=== PATIENT | male | born 1955 | race Caucasian/White ===

== ENCOUNTER 2021-02-14 23:07 | Observation (INO) | payer OTHER, SELFPAY ==
--- NOTE | ~2021-02-14 | NM_ITS ---
EXAMINATION: NM pulmonary perfusion DATE: 02/15/2021 14:48 INDICATION: Right chest pain. TECHNIQUE: 5.5 mCi Tc-99m MAA was administered intravenously for perfusion images. Scintigraphic mohsen ges of the chest were obtained. COMPARISON: Chest single view 02/14/2021, chest CT 10/25/2017 FINDINGS: Perfusion images show attenuation artifact from obesity. There are no mismatched defects. IMPRESSION: 1. Pulmonary embolism absent (low probability). Reviewed, dictated and finalized at location A. AMMONIA OPERATOR
--- NOTE | ~2021-02-14 | US_ITS ---
EXAMINATION: US venous doppler [facility] DATE: 02/15/2021 14:52 INDICATION: Lower limb swelling. TECHNIQUE: Grayscale ultrasound images without and with compression and Doppler ultrasound images of the bilateral lower extremity veins were obtained. COMPARISON: Ultrasound 10/25/2017 FINDINGS: The visualized portions of right common femoral vein, profunda (deep) femoral vein, femoral vein, pop liteal vein, peroneal veins, posterior tibial veins, and greater saphenous vein outflow are patent. The visualized portions of left common femoral vein, profunda femoral vein, femoral vein, popliteal v ein, peroneal veins, posterior tibial veins, and greater saphenous vein outflow are patent. IMPRESSION: 1. No deep venous thrombosis. Reviewed, dictated and finalized at location A. EE TASTER
--- NOTE | ~2021-02-14 | XR_ITS ---
EXAMINATION: XR chest 1V portable DATE: 02/17/2021 08:38 INDICATION: Shortness of breath. TECHNIQUE: A single frontal view of the chest was obtained. COMPARISON: Chest single view 02/14/2021, chest CT 10/25/2017 FINDINGS: There are airspace opacities in the mid and lower lung zones. No pleural effusion or pneumo thorax. Cardiomegaly is noted. There are prominent paracardial fat pads. IMPRESSION: 1. Airspace opacities in the mid and lower lung zones, likely stable considering differences in techn ique, consistent with pulmonary edema versus pneumonia. 2. Cardiomegaly. Reviewed, dictated and finalized at location A. TAKER IMPRESSION: 1. Airspace opacities in the mid and lower lung zones, likely stable considerin g differences in technique, consistent with pulmonary edema versus pneumonia. 2. Cardiomegaly.
--- NOTE | ~2021-02-14 | XR_ITS ---
EXAMINATION: XR shoulder RT min 2V DATE: 02/18/2021 13:05 INDICATION: Right shoulder pain. TECHNIQUE: 4 views of right shoulder were obtained. COMPARISON: Right shoulder radiographs 05/27/2014 FINDINGS: Bone alignment is normal. No fracture. There is mild osteoarthritis of glenohumeral joint a nd moderate osteoarthritis of acromioclavicular joint. IMPRESSION: 1. Polyarticular osteoarthritis. Reviewed, dictated and finalized at location A. NE EQUIPMENT DESIGN ENGINEER
--- NOTE | ~2021-02-14 | XR_ITS ---
XR chest 1V portable 02/14/2021 23:52 Indication: Chest pain. Hypertension. Procedure: AP portable chest Comparison: 10/25/2017 Findings: Cardiomegaly with pulmonary edema. Small left pleural effusion. No pneumothorax. No acute o sseous abnormality. Impression: 1: Cardiomegaly with pulmonary edema. Reviewed, dictated and finalized at location A. NDS MANAGER Impression: 1: Cardiomegaly with pulmonary edema.
[2021-02-14 23:07] VITALS: BP 124/66; PULSE 63; PULSE 65; RESP 21; TEMP 35.9; O2SAT 100; O2SAT 98
--- NOTE | 2021-02-14 23:22 | ECG_ITS ---
Measurements Intervals [place] Rate: 57 P: MI: 0 QRS: 89 QRSD: 113 T: 35 QT: 429 QTc: 419 Interpretive Statements ATRIAL FIBRILLATION WITH SLOW VENTRICULAR RESPONSE INTRAVENTRICULAR CONDUCTION DELAY LOW QRS VOLTAGE IN PRECORDIAL LEADS BASELINE ARTIFACT- I, II, AVR ABNORMAL ECG Electronically Signed On 02-15-2021 6:07:02 PIPELAYING FITTER by Silver Torres D.O.
[2021-02-14 23:25] VITALS: O2SAT 100
[2021-02-14 23:31] VITALS: BP 104/81; PULSE 61; RESP 17; O2SAT 94
[2021-02-14 23:44] LABS: Basophils Absolute Auto 0.1 K/mm3 (0.0-0.1); Basophils Percent Auto 0.9 % (0.2-1.2); Eosinophils Absolute Auto 0.4 K/mm3 (0-0.3); Eosinophils Percent Auto 3.4 % (0-4.4); Hematocrit 40.5 % (42.0-52.0); Hemoglobin 12.4 g/dL (14.0-18.0); Immature Granulocyte Absolute 0.05 K/mm3 (0.00-0.031); Immature Granulocyte Percent A 0.4 % (0-0.5); Lymphocytes Absolute Auto 1.31 K/mm3 (0.9-3.2); Lymphocytes Percent Auto 10.3 % (18.3-44.2); Mean Corpuscular HGB Conc 30.6 g/dl (32-36); Mean Corpuscular Hemoglobin 28.2 pg (26-34); Mean Platelet Volume 9.8 fl (7.4-10.4); Monocytes Absolute Auto 0.9 K/mm3 (0.1-0.6); Monocytes Percent Auto 6.8 % (2.6-8.5); Neutrophils Percent Auto 78.2 % (45.5-73.1); Platelet Count Result 425 k/mm3 (150-375); White Blood Count 12.8 K/mm3 (4.5-10.0)
[2021-02-14 23:58] LABS: Alanine Aminotransferase 14 U/L (4-50); Albumin Level 3.6 g/dL (3.5-5.1); Alkaline Phosphatase 83 U/L (38-126); Anion Gap 9 mmol/L (8-16); Aspartate Amino Transferase 24 U/L (17-59); Bilirubin,Total 0.5 mg/dL (0.2-1.3); Blood Urea Nitrogen 34 mg/dL (9-20); Calcium 10.8 mg/dL (8.4-10.2); Carbon Dioxide 29 mmol/L (22-30); Chloride 96 mmol/L (98-107); Estimated Glomerular Filt Rate 47; Glucose 94 mg/dL (65-110); Lipase 39 U/L (23-300); Potassium 5.2 mmol/L (3.4-5.0); Sodium 134 mmol/L (137-145)
[2021-02-15] VITALS (16 sets, daily range): BP systolic 102–128; BP diastolic 45–69; PULSE 51–72; RESP 14–20; TEMP 36.1–36.4; O2SAT 95–100; BMI 44.6
--- NOTE | 2021-02-15 | ECHO_ITS ---
Patient Info Name: Taye Marrero Age: 65 years : 1955 Gender: Male Ht: 71 in Wt: 320 lbs BSA: 2.77 m2 HR: 53 bpm BP: 128 / 45 mmHg Heart Rhythm: Sinus Rhythm Technical Quality: Fair Exam Date: 02/15/2021 9:31 AM Exam Location: [facility] Patient Status: Outpatient Admit Date: 02/15/2021 Staff Ordering Physician: Paul Rosado MD Senior Online Marketing Manager: JULIO Attending Provider: Paul Rosado MD Exam Type: CA echo doppler color flow Study Info Indications - CHF Complete two-dimensional, color flow and Doppler transthoracic echocardiogram is performed. Summary 1. Complete two-dimensional, color flow and Doppler transthoracic echocardiogram is performed. 2. Left ventricular chamber dimension is normal. 3. Left ventricular systolic function is normal, estimated at 60-65%. 4. The left ventricular diastolic function is abnormal. 5. E/e' 10 is mildly elevated. 6. Left atrial chamber dimension is mildly enlarged. 7. Right atrial chamber dimension is mildly enlarged. 8. There is mild aortic valve sclerosis. 9. The mitral valve has mildly calcified annulus. 10. No pulmonary hypertension, estimated pulmonary arterial systolic pressure is 38 mmHg. 11. Dilated inferior vena cava with >50% collapse upon inspiration consistent with elevated right atrial pressure, 10 mmHg. Left Ventricle E/e' 10 is mildly elevated. Left ventricular chamber dimension is normal. Left ventricular systolic function is normal, estimated at 60-65%. The left ventricular diastolic function is abnormal. Right Ventricle Right ventricular chamber dimension is normal. Right ventricular systolic function is normal. Left Atria Left atrial chamber dimension is mildly enlarged. Right Atria Right atrial chamber dimension is mildly enlarged. Aortic Valve The aortic valve is trileaflet. There is mild aortic valve sclerosis. There is no aortic valve stenosis. There is no aortic valve regurgitation. Pulmonic Valve There is no pulmonic regurgitation. Mitral Valve The mitral valve has mildly calcified annulus. There is no mitral valve stenosis. There is no mitral valve regurgitation. Tricuspid Valve There is no tricuspid valve regurgitation. No pulmonary hypertension, estimated pulmonary arterial systolic pressure is 38 mmHg. Pericardium/Pleural There is no pericardial effusion. Inferior Vena Cava Dilated inferior vena cava with >50% collapse upon inspiration consistent with elevated right atrial pressure, 10 mmHg. Aorta The aortic root size at the sinus of Valsalva is normal. Left Ventricular Outflow Tract Name Value Normal LVOT 2D LVOT Diameter 2.3 cm LVOT Doppler LVOT Peak Gradient 5 mmHg LVOT Mean Gradient 3 mmHg LVOT VTI 26 cm LVOT VTI/AV VTI Ratio 0.8 LVOT Stroke Volume 33 ml LVOT CO 2.1 l/min LVOT CI 0.8 l/min/m2 Pulmonic Valve
[2021-02-15 00:04] LABS: INR 1.6; Prothrombin Time 18.6 Seconds (11.1-14.7)
[2021-02-15] MEDS: ALBUTEROL SULFATE NEB 2.5 MG/0.5 ML INH 5 MG INHALATION ×2 (00:04→17:56)
[2021-02-15] MEDS: IPRATROPIUM BR 0.02% INH SOLN 0.5 MG/2.5 ML VIAL INHALATION ×2 (00:04→17:56)
[2021-02-15 00:05] LABS: Partial Thromboplastin Time 46.3 SECONDS (22.3-36.8)
[2021-02-15 00:10] LABS: Troponin I < 0.012 ng/mL (0.000-0.034)
[2021-02-15 00:46] LABS: NT Pro B Type Natriuretic Pept 388 pg/mL (5-100)
--- NOTE | 2021-02-15 03:04 | ED.GENADULT ---
HPI - General Adult General Chief complaint: Chest Pain Stated complaint: CP RADIATING RT ARM Time Seen by Provider: 02/14/21 23:39 History of Present Illness HPI narrative: Patient is 65-year-old gentleman who presents emerged from with chief complaint of chest pain and shortness of breath. The patient reports that he is currently a resident of a local nursing facility had some tightness in his chest and also started getting short of breath today. The patient does report that he uses an inhaler and states he feels better after receiving nebulizer treatment. The patient states that he was recently in the hospital at [place] and had had issues with lower extremity laceration on the right leg that got infected he also has history of chronic venous stasis of his lower extremities. Related Data Allergies Allergy/AdvReac Type Severity Reaction Status Date / Time No Known Allergies Allergy Unverified 02/14/21 23:18 Review of Systems Review of Systems: A 10 system review of systems was completed on the patient and is negative except for what is stated in the HPI. Nursing and ancillary documentation was reviewed. Exam Narrative: GENERAL: Well-appearing, well-nourished, and in no acute distress. HEAD: Normocephalic, atraumatic. EYES: PERRLA and EOMI. ENT: Nares clear, no rhinorrhea or epistaxis. Mucous membranes moist. NECK: Supple. CHEST: Scattered wheezes to auscultation. No respiratory distress. HEART: Irregular rate and rhythm. No murmur heard. Normal peripheral pulses. ABDOMEN: Soft, nontender, nondistended, normal active bowel sounds. EXTREMITIES: Normal range of motion. +1 edema. SKIN: Warm, dry, chronic venous stasis of the bilateral lower extremities. There is a healing laceration of the right lower extremity.. NEURO: No focal deficits. Alert and oriented x3. PSYCH: Normal mood and affect. Course Course Emergency Course: EKG is atrial fibrillation with slow ventricular response with a rate of [address] elevation or ST depression Vital Signs Vital signs: Vital Signs Temperature 35.9 C L 02/14/21 23:07 Pulse Rate 65 02/14/21 23:07 Respiratory Rate 21 H 02/14/21 23:07 Blood Pressure 124/66 02/14/21 23:07 Pulse Oximetry 100 02/14/21 23:07 Temperature 35.9 C L 02/14/21 23:07 Pulse Rate 55 L 02/15/21 01:31 Respiratory Rate 14 02/15/21 01:31 Blood Pressure 116/61 02/15/21 01:31 Pulse Oximetry 100 02/15/21 01:31 Medical Decision Making Vital Signs Vital Signs: Vital Signs Temperature 35.9 C L 02/14/21 23:07 Pulse Rate 65 02/14/21 23:07 Respiratory Rate 21 H 02/14/21 23:07 Blood Pressure 124/66 02/14/21 23:07 Pulse Oximetry 100 02/14/21 23:07 Temperature 35.9 C L 02/14/21 23:07 Pulse Rate 55 L 02/15/21 01:31 Respiratory Rate 14 02/15/21 01:31 Blood Pressure 116/61 02/15/21 01:31 Pulse Oximetry 100 02/15/21 01:31 Lab Data Result diagrams: 02/14/21 23:37 02/14/21 23:37 Labs: Lab Results 02/14/21 02/14/21 02/14/21 Range/Units 23:37 23:37 23:37 WBC 12.8 H (4.5-10.0) K/mm3 RBC 4.40 L (4.6-6.20) M/mm3 Hgb 12.4 L (14.0-18.0) g/dL Hct 40.5 L (42.0-52.0) % MCV 92.0 (80-100) fl MCH 28.2 (26-34) pg MCHC 30.6 L (32-36) g/dl RDW 14.0 (11.5-14.5) % Plt Count 425 H (150-375) k/mm3 MPV 9.8 (7.4-10.4) fl Immature Gran % (Auto) 0.4 (0-0.5) % Neut % (Auto) 78.2 H (45.5-73.1) % Lymph % (Auto) 10.3 L (18.3-44.2) % [place] % (Auto) 6.8 (2.6-8.5) % Eos % (Auto) 3.4 (0-4.4) % Baso % (Auto) 0.9 (0.2-1.2) % Lymph # (Auto) 1.31 (0.9-3.2) K/mm3 [place] # (Auto) 0.9 H (0.1-0.6) K/mm3 Eos # (Auto) 0.4 H (0-0.3) K/mm3 Baso # (Auto) 0.1 (0.0-0.1) K/mm3 Abs Immat Gran (auto) 0.05 H (0.00-0.031) K/mm3 Absolute Neuts (auto) 10.0 H (1.3-6.7) K/mm3 Absolute Nucleated RBC 0.0 (0.0-0.012) K/mm3 Nucleated RBC % 0.0 (0.0-0.2) % P
[2021-02-15] MEDS: FUROSEMIDE INJ 40 MG/4 ML VIAL IV PUSH ×3 (03:22→17:33)
--- NOTE | 2021-02-15 03:27 | PC.NURSE ---
3L O2 saturation 100%, titrated to 2L O2.
--- NOTE | 2021-02-15 03:31 | PC.NURSE ---
Updated Rosmery at [facility] by phone.
--- NOTE | 2021-02-15 04:38 | ADMGEN ---
This patient, Taye Marrero, was admitted to Medical Room 240-01. Patient/family oriented to hospital policies and general routines including ID bracelet, bed and alarms, visiting hours, pain management, procedures, bathroom and other care routines, personal items, smoking policy, room service/diet, and visiting hours. Information on how to activate the Rapid Response Team has been discussed. Patient/Family are encouraged to report perceived risks to care and to ask questions if they do not understand what they are told or what they should do.
--- NOTE | 2021-02-15 05:14 | PM.IMHP ---
H&P: HPI History of Present Illness Date/Time: 02/15/21 05:14 Chief Complaint: Chest pain shortness of breath Narrative: This is a 65-year-old male who presents to the ED from a local nursing facility due to shortness of breath and chest tightness that he had while there. He has been in the nursing facility since about a week now rehabilitating from his recent admission at [facility]. He went to [facility] after a fall and sustained a laceration on his right leg which was sutured. He still has wound on his right leg which is healing. He reports that he used his inhaler and felt a little better. He reports chronic wound in his bilateral lower extremities due to chronic venous stasis. Prior to going to [facility] he lives at home and uses walker to get around. He denies any abdominal pain nausea vomiting or diaphoresis. Review of Systems Review of Systems: - CONSTITUTIONAL: Denies weight loss, fever and chills. - HEENT: Denies changes in vision and hearing - RESPIRATORY: Reports SOB and denies cough. - CV: Denies palpitations and reports CP. - GI: Denies abdominal pain, nausea, vomiting and diarrhea. - : Denies dysuria and urinary frequency. - MSK: Denies myalgia and joint pain. - SKIN: Reports lower extremity rash and pruritus. - NEUROLOGICAL: Denies headache and syncope. - PSYCHIATRIC: Denies recent changes in mood. Denies anxiety and depression. All systems reviewed & are unremarkable except as noted in HPI and below Constitutional: Constitutional: Reports fatigue and Reports weakness Neurologic: Reports weakness Endocrine: Endocrine: Reports fatigue PMFSH Social History Social History Alcohol intake: never Substance use: never Spiritual care concerns: No Meds Home Medications and Allergies Home Medications Medication Instructions Recorded Confirmed Type hydrocodone 5 mg-acetaminophen 325 1 tablet PO Q8H PRN #90 tablet 02/09/21 Rx mg tablet Clindamycin 300 mg BYMOUTH QID 02/15/21 02/15/21 History apixaban [Eliquis] 5 mg PO BID 02/15/21 02/15/21 History carvedilol 12.5 mg PO BID 02/15/21 02/15/21 History cholecalciferol (vitamin D3) 50 mcg PO DAILY 02/15/21 02/15/21 History citalopram 20 mg PO DAILY 02/15/21 02/15/21 History diltiazem HCl 360 mg PO DAILY 02/15/21 02/15/21 History duloxetine 40 mg PO DAILY 02/15/21 02/15/21 History furosemide 40 mg PO DAILY 02/15/21 02/15/21 History gabapentin 300 mg PO 6XD 02/15/21 02/15/21 History glimepiride 4 mg PO DAILY 02/15/21 02/15/21 History hydralazine 25 mg PO TID 02/15/21 02/15/21 History hydrocodone-acetaminophen 5 tablet PO Q8H 02/15/21 02/15/21 History isosorbide mononitrate 30 mg PO DAILY 02/15/21 02/15/21 History levothyroxine 100 mcg PO DAILY 02/15/21 02/15/21 History lisinopril 20 mg PO DAILY 02/15/21 02/15/21 History magnesium oxide-Mg AA chelate 400 cap PO BID 02/15/21 02/15/21 History [Magnesium (oxide/AA chelate)] metformin 1,000 mg PO BID 02/15/21 02/15/21 History stnjoknyetoj-pyy-paqa-FA-vit K 1 tablet PO DAILY 02/15/21 02/15/21 History [Adults Multivitamin] pantoprazole [Protonix] 40 mg PO DAILY 02/15/21 02/15/21 History potassium chloride 20 meq PO DAILY 02/15/21 02/15/21 History pravastatin 40 mg PO DAILY 02/15/21 02/15/21 History trazodone 150 mg PO DAILY 02/15/21 02/15/21 History warfarin [Coumadin] 4 mg PO DAILY 02/15/21 02/15/21 History Allergies Allergy/AdvReac Type Severity Reaction Status Date / Time No Known Allergies Allergy Unverified 02/14/21 23:18 Vital Signs Vital Signs - 24 hr 02/14/21 23:07 02/14/21 23:25 02/14/21 23:31 Temperature 96.7 F L Pulse Rate 63 61 Respiratory Rate 21 H 17 Blood Pressure 124/66 104/81 Pulse Oximetry 98 100 94 02/15/21 00:07 02/15/21 00:17 02/15/21 00:31 Temperature Pulse Rate 62 65 62 Respiratory Rate 16 16 15 Blood Pressure 110/65 Pulse Oximetry 97
[2021-02-15 06:51] LABS: Troponin I < 0.012 ng/mL (0.000-0.034)
[2021-02-15 07:18] LABS: Alanine Aminotransferase 13 U/L (4-50); Albumin Level 3.5 g/dL (3.5-5.1); Alkaline Phosphatase 84 U/L (38-126); Anion Gap 6 mmol/L (8-16); Aspartate Amino Transferase 20 U/L (17-59); Bilirubin,Total 0.4 mg/dL (0.2-1.3); Blood Urea Nitrogen 35 mg/dL (9-20); Calcium 10.8 mg/dL (8.4-10.2); Carbon Dioxide 33 mmol/L (22-30); Chloride 97 mmol/L (98-107); Estimated CRCL calculation 57 ml/min; Estimated Glomerular Filt Rate 41; Glucose 107 mg/dL (65-110); Potassium 5.3 mmol/L (3.4-5.0); Sodium 136 mmol/L (137-145)
[2021-02-15 07:23] LABS: Basophils Absolute Auto 0.1 K/mm3 (0.0-0.1); Basophils Percent Auto 0.8 % (0.2-1.2); Eosinophils Absolute Auto 0.5 K/mm3 (0-0.3); Eosinophils Percent Auto 4.2 % (0-4.4); Hematocrit 40.4 % (42.0-52.0); Hemoglobin 12.4 g/dL (14.0-18.0); Immature Granulocyte Absolute 0.03 K/mm3 (0.00-0.031); Immature Granulocyte Percent A 0.3 % (0-0.5); Lymphocytes Absolute Auto 1.07 K/mm3 (0.9-3.2); Mean Corpuscular HGB Conc 30.7 g/dl (32-36); Mean Corpuscular Hemoglobin 27.9 pg (26-34); Monocytes Absolute Auto 0.8 K/mm3 (0.1-0.6); Monocytes Percent Auto 7.7 % (2.6-8.5); Neutrophils Absolute Auto 8.2 K/mm3 (1.3-6.7); Platelet Count Result 417 k/mm3 (150-375); Red Blood Count 4.44 M/mm3 (4.6-6.20); Red Cell Distribution Width 13.8 % (11.5-14.5); White Blood Count 10.7 K/mm3 (4.5-10.0)
[2021-02-15 07:28] LABS: Magnesium 2.3 mg/dL (1.6-2.3)
[2021-02-15 07:30] LABS: D Dimer 1.55 ug/mL (<0.48)
[2021-02-15 09:24] LABS: Hemoglobin A1C 8.7 % (<5.7)
--- NOTE | 2021-02-15 10:02 | PM.IMPN ---
Progress Note: A&P Assessment and Plan (1) Atypical chest pain: Code(s): R07.89 - Other chest pain Status: Acute Assessment and Plan: Cardiology consult serial troponin patient also has elevated D-dimer pending Doppler of lower extremity pending V/Q scan patient on oral anticoagulation Eliquis twice a day (2) Acute dyspnea: Code(s): R06.00 - Dyspnea, unspecified Status: Acute Assessment and Plan: Most likely acute and of chronic diastolic CHF exacerbation continue IV diuresis (3) Atrial fibrillation with slow ventricular response: Code(s): I48.91 - Unspecified atrial fibrillation Status: Acute Assessment and Plan: Patient currently on Cardizem and Coreg and Eliquis Holding parameter for Coreg pending cardiology evaluation probably DC Coreg (4) CHF (congestive heart failure): Qualifiers: Heart failure chronicity: unspecified Heart failure type: unspecified Qualified Code(s): I50.9 - Heart failure, unspecified Code(s): I50.9 - Heart failure, unspecified Status: Acute Assessment and Plan: Acute and of chronic diastolic CHF exacerbation present on admission continue IV diuresis (5) Insulin dependent diabetes mellitus: Status: Acute Assessment and Plan: Lantus Sliding scale insulin (6) Hypertension: Code(s): I10 - Essential (primary) hypertension Status: Acute Assessment and Plan: Blood pressure is on the lower side DC lisinopril to allow for diuresis and as also patient has hyperkalemia (7) Hyperlipidemia: Code(s): E78.5 - Hyperlipidemia, unspecified Status: Acute Assessment and Plan: Continue home medication Diet and exercise (8) Morbid obesity: Code(s): E66.01 - Morbid (severe) obesity due to excess calories Status: Acute Assessment and Plan: Diet and exercise (9) Chronic anticoagulation: Code(s): Z79.01 - terminal block assembler (current) use of anticoagulants Status: Acute Assessment and Plan: Monitor (10) COPD (chronic obstructive pulmonary disease): Code(s): J44.9 - Chronic obstructive pulmonary disease, unspecified Status: Acute Assessment and Plan: Most likely associated with acute COPD exacerbation treated with inhaler treatment (11) Chronic kidney disease, stage 3: Code(s): N18.30 - Chronic kidney disease, stage 3 unspecified Status: Acute Assessment and Plan: Avoid nephrotoxic medication Additional Plan Cellulitis of lower extremity blood culture IV antibiotics Subjective Date/time seen: 02/15/21 10:02 Interval history: Patient seen and examined Patient presented to the hospital with shortness and chest pain patient was found to have CHF exacerbation also has lower extremity redness started on IV antibiotic for cellulitis D-dimer was elevated V/Q scan and Doppler ordered cardiology consulted for chest pain and shortness of breath Patient had hyperkalemia DC potassium replacement DC lisinopril re-evaluate Patient denies fever headache fever I am seeing the patient for CHF Exam Narrative: Alert Chest decreased air entry bilateral Abdomen nontender nondistended CVS S1 + S2 Lower extremity positive redness and edema Objective Data Vital Signs Vital Signs: Vital Signs - 24 hr 02/14/21 23:07 02/14/21 23:25 02/14/21 23:31 Temperature 96.7 F L Pulse Rate 63 61 Respiratory Rate 21 H 17 Blood Pressure 124/66 104/81 Pulse Oximetry 98 100 94 02/15/21 00:07 02/15/21 00:17 02/15/21 00:31 Temperature Pulse Rate 62 65 62 Respiratory Rate 16 16 15 Blood Pressure 110/65 Pulse Oximetry 97 02/15/21 01:31 02/15/21 03:22 02/15/21 05:00 Temperature 97.6 F Pulse Rate 55 L 51 L 53 L Respiratory Rate 14 16 20 Blood Pressure 116/61 104/69 128/45 L Pulse Oximetry 100 100 100 02/15/21 06:58 Temperature Pulse Rate Respiratory Rate Blood Pressure Pulse Oximetry 100 Int
[2021-02-15] MEDS: cefTRIAXone 2 GM in SODIUM CHLORIDE 0.9% IV 100 ML 200 ML IVPB (10:45)
[2021-02-15] MEDS: MAGNESIUM OXIDE 400 MG TABLET PO ×2 (10:46→17:33)
[2021-02-15] MEDS: hydrALAZINE HCL 25 MG TABLET PO (10:46)
[2021-02-15] MEDS: ISOSORBIDE MONONITRATE 30 MG TAB.ER.24H PO (10:46)
[2021-02-15] MEDS: MULTIVITAMINS /C LUTEIN (CENTRUM SILVER) TABLET *BKC 1 TAB PO (10:46)
[2021-02-15] MEDS: APIXABAN 5 MG TABLET PO ×2 (10:46→20:41)
[2021-02-15] MEDS: GLIMEPIRIDE 2 MG TABLET 4 MG PO (10:47)
[2021-02-15] MEDS: PRAVASTATIN SODIUM 20 MG TABLET 40 MG PO (10:47)
[2021-02-15] MEDS: GABAPENTIN 300 MG CAPSULE PO ×3 (10:47→20:42)
[2021-02-15] MEDS: DULoxetine HCL 20 MG CAPSULE.DR 40 MG PO (10:47)
[2021-02-15] MEDS: CHOLECALCIFEROL 1,000 UNITS TABLET 2000 UNITS PO (10:48)
[2021-02-15] MEDS: carvediloL 12.5 MG TABLET PO ×2 (10:48→17:33)
[2021-02-15] MEDS: CITALOPRAM HYDROBROMIDE 20 MG TABLET PO (10:48)
[2021-02-15] MEDS: ASPIRIN 81 MG ENTERIC TABLET PO (10:48)
[2021-02-15] MEDS: dilTIAZem HCL CD 180 MG CAP.ER.24H 360 MG PO (10:49)
[2021-02-15] MEDS: PANTOPRAZOLE 40 MG TABLET PO (10:49)
[2021-02-15] MEDS: LEVOTHYROXINE SODIUM 100 MCG TABLET PO (10:50)
[2021-02-15 11:41] LABS: Glucose Point of Care 105 mg/dl (65-105)
[2021-02-15] MEDS: HYDROcodone/acetaminophen (*CRX) 5-325 MG TABLET 1 TAB PO (13:39)
--- NOTE | 2021-02-15 14:47 | PM.CNCAR ---
Assessment and Plan Assessment and plan (1) CHF (congestive heart failure): Qualifiers: Heart failure chronicity: unspecified Heart failure type: unspecified Qualified Code(s): I50.9 - Heart failure, unspecified <NANCY Fine - Last Filed: 02/15/21 17:31> Code(s): I50.9 - Heart failure, unspecified <NANCY Fine - Last Filed: 02/15/21 17:31> Status: Acute <NANCY Fine - Last Filed: 02/15/21 17:31> Assessment and Plan: Mild pulmonary edema on chest xray, some shortness of breath with exertion though per patient report it is mild. His LVEF is normal but he does have diastolic dysfunction. Agree with IV furosemide. Keep close eye on renal function. Daily BMP. Continue medical regimen with lisinopril, coreg. <NANCY Fine - Last Filed: 02/15/21 17:31> (2) Atypical chest pain: Code(s): R07.89 - Other chest pain <NANCY Fine - Last Filed: 02/15/21 17:31> Status: Acute <NANCY Fine - Last Filed: 02/15/21 17:31> Assessment and Plan: Episode of chest pain that occurred last night while patient was at rest. Retrosternal, spreading to the right side of his chest. Chest pain resolved spontaneously. Very atypical sounding chest pain. Serial troponins were negative. EKG did not have any evidence of ischemia. Unlikely to be related to ACS/plaque rupture. He does have risk factors however. Outpatient nuclear stress test would be recommended. Continue ASA, statin. <NANCY Fine - Last Filed: 02/15/21 17:31> (3) Hypertension: Code(s): I10 - Essential (primary) hypertension <NANCY Fine - Last Filed: 02/15/21 17:31> Status: Acute <NANCY Fine - Last Filed: 02/15/21 17:31> Assessment and Plan: Blood pressure has been at goal. <NANCY Fine - Last Filed: 02/15/21 17:31> (4) Insulin dependent diabetes mellitus: Status: Acute <NANCY Fine - Last Filed: 02/15/21 17:31> Assessment and Plan: Management per primary service <NANCY Fine - Last Filed: 02/15/21 17:31> (5) Atrial fibrillation with slow ventricular response: Code(s): I48.91 - Unspecified atrial fibrillation <NANCY Fine - Last Filed: 02/15/21 17:31> Status: Acute <NANCY Fine - Last Filed: 02/15/21 17:31> Assessment and Plan: This is not a new problem. Patient tells me he has had atrial fibrillation ?all of his life. ? He does take diltiazem for rate control. He tells me that he was just recently placed on Eliquis and had not been on chronic anticoagulation for his atrial fibrillation. CHADSVASc score is 3 - anticoagulation is recommended, Continue eliquis 5mg b.i.d. <NANCY Fine - Last Filed: 02/15/21 17:31> Additional Plan Attending Addendum: I personally seen and examined this patient at bedside. I agree with the above documentation and plan of care as outlined. -65-year-old male history of hypertension, diabetes mellitus, obesity chronic atrial fibrillation on anticoagulation admitted with complaints of chest tightness and shortness of breath from [facility] for [facility] following a fall with injury. Complained of chest tightness in the center chest radiating to the left and into the right arm curiously. Chest pain resolved spontaneously prior to arrival. See see no pain with deep breathing. Notes some tenderness to the chest wall in the same region. Enzymes negative thus far. Mild pulmonary edema on chest x-ray and edema. Exam: NAD, A&Ox3, nonfocal neuro exam hard of hearing No JVD Lungs diminished breath sounds diffusely Cardio bradycardic, irregularly irregular rate and rhythm S1/S2 Abd morbidly obese, soft, NT/ND, +BS Ext 2 to 3+ bilateral lower extremity edema, healed incision right knee erythema, sloughing of the s
[2021-02-15 16:39] LABS: Glucose Point of Care 188 mg/dl (65-105)
[2021-02-15] MEDS: traZODone HCL 50 MG TABLET 150 MG PO (20:42)
[2021-02-15] MEDS: INSULIN GLARGINE (*BKC) 100 UNITS/ML 20 UNITS SUB-Q (20:42)
[2021-02-15 21:43] LABS: Glucose Point of Care 198 mg/dl (65-105)
[2021-02-16] VITALS (15 sets, daily range): BP systolic 103–133; BP diastolic 51–71; PULSE 55–71; RESP 16–20; TEMP 35.7–36.1; O2SAT 95–97
[2021-02-16 05:41] LABS: Potassium 4.8 mmol/L (3.4-5.0)
[2021-02-16] MEDS: HYDROcodone/acetaminophen (*CRX) 5-325 MG TABLET 1 TAB PO ×3 (05:42→21:27)
[2021-02-16] MEDS: LEVOTHYROXINE SODIUM 100 MCG TABLET PO (05:43)
[2021-02-16] MEDS: GABAPENTIN 300 MG CAPSULE PO ×5 (05:43→21:14)
[2021-02-16 07:38] LABS: Glucose Point of Care 141 mg/dl (65-105)
[2021-02-16] MEDS: dilTIAZem HCL CD 180 MG CAP.ER.24H 360 MG PO (08:05)
[2021-02-16] MEDS: CITALOPRAM HYDROBROMIDE 20 MG TABLET PO (08:05)
[2021-02-16] MEDS: hydrALAZINE HCL 25 MG TABLET PO (08:05)
[2021-02-16] MEDS: carvediloL 12.5 MG TABLET PO ×2 (08:05→17:25)
[2021-02-16] MEDS: CHOLECALCIFEROL 1,000 UNITS TABLET 2000 UNITS PO (08:06)
[2021-02-16] MEDS: PRAVASTATIN SODIUM 20 MG TABLET 40 MG PO (08:06)
[2021-02-16] MEDS: FUROSEMIDE INJ 40 MG/4 ML VIAL IV PUSH ×2 (08:07→17:25)
[2021-02-16] MEDS: MAGNESIUM OXIDE 400 MG TABLET PO ×2 (08:07→17:25)
[2021-02-16] MEDS: ASPIRIN 81 MG ENTERIC TABLET PO (08:07)
[2021-02-16] MEDS: MULTIVITAMINS /C LUTEIN (CENTRUM SILVER) TABLET *BKC 1 TAB PO (08:07)
[2021-02-16] MEDS: APIXABAN 5 MG TABLET PO ×2 (08:07→21:14)
[2021-02-16] MEDS: PANTOPRAZOLE 40 MG TABLET PO (08:07)
[2021-02-16] MEDS: DULoxetine HCL 20 MG CAPSULE.DR 40 MG PO (08:07)
[2021-02-16] MEDS: ISOSORBIDE MONONITRATE 30 MG TAB.ER.24H PO (08:07)
[2021-02-16] MEDS: GLIMEPIRIDE 2 MG TABLET 4 MG PO (08:07)
[2021-02-16] MEDS: ALBUTEROL SULFATE NEB 2.5 MG/0.5 ML INH 5 MG INHALATION ×2 (08:20→20:24)
[2021-02-16] MEDS: IPRATROPIUM BR 0.02% INH SOLN 0.5 MG/2.5 ML VIAL INHALATION ×2 (08:20→20:24)
--- NOTE | 2021-02-16 08:59 | PM.IMPN ---
Progress Note: A&P Assessment and Plan (1) Atypical chest pain: Code(s): R07.89 - Other chest pain Status: Acute Assessment and Plan: Cardiology consult serial troponin oral anticoagulation Eliquis twice a day most likely musculoskeletal resolved stress test as outpatient (2) Acute dyspnea: Code(s): R06.00 - Dyspnea, unspecified Status: Acute Assessment and Plan: Most likely acute and of chronic diastolic CHF exacerbation continue IV diuresis (3) Atrial fibrillation with slow ventricular response: Code(s): I48.91 - Unspecified atrial fibrillation Status: Acute Assessment and Plan: Patient currently on Cardizem and Coreg and Eliquis Holding parameter for Coreg pending cardiology evaluation (4) CHF (congestive heart failure): Qualifiers: Heart failure chronicity: unspecified Heart failure type: unspecified Qualified Code(s): I50.9 - Heart failure, unspecified Code(s): I50.9 - Heart failure, unspecified Status: Acute Assessment and Plan: Acute and of chronic diastolic CHF exacerbation present on admission continue IV diuresis (5) Insulin dependent diabetes mellitus: Status: Acute Assessment and Plan: Lantus Sliding scale insulin (6) Hypertension: Code(s): I10 - Essential (primary) hypertension Status: Acute Assessment and Plan: Blood pressure is on the lower side DC lisinopril to allow for diuresis and as also patient has hyperkalemia (7) Hyperlipidemia: Code(s): E78.5 - Hyperlipidemia, unspecified Status: Acute Assessment and Plan: Continue home medication Diet and exercise (8) Morbid obesity: Code(s): E66.01 - Morbid (severe) obesity due to excess calories Status: Acute Assessment and Plan: Diet and exercise (9) Chronic anticoagulation: Code(s): Z79.01 - retirement (current) use of anticoagulants Status: Acute Assessment and Plan: Monitor (10) COPD (chronic obstructive pulmonary disease): Code(s): J44.9 - Chronic obstructive pulmonary disease, unspecified Status: Acute Assessment and Plan: Most likely associated with acute COPD exacerbation treated with inhaler treatment (11) Chronic kidney disease, stage 3: Code(s): N18.30 - Chronic kidney disease, stage 3 unspecified Status: Acute Assessment and Plan: Avoid nephrotoxic medication Additional Plan Cellulitis of lower extremity blood culture IV antibiotics Subjective Date/time seen: 02/16/21 08:59 Interval history: Patient seen and examined Patient presented to the hospital with shortness and chest pain patient was found to have CHF exacerbation also has lower extremity redness started on IV antibiotic for cellulitis D-dimer was elevated V/Q scan and Doppler ordered cardiology consulted for chest pain and shortness of breath Patient had hyperkalemia DC potassium replacement repeat CMP Shortness of breath and chest pain has significantly improved cardiology recommendation appreciated continue diuresis today Patient denies fever headache fever I am seeing the patient for CHF Exam Narrative: Alert Chest decreased air entry bilateral Abdomen nontender nondistended CVS S1 + S2 Lower extremity positive redness and edema Objective Data Vital Signs Vital Signs: Vital Signs - 24 hr 02/15/21 12:00 02/15/21 13:37 02/15/21 14:00 Temperature 97.6 F Pulse Rate 72 63 62 Respiratory Rate 20 Blood Pressure 102/58 L 108/60 Pulse Oximetry 100 100 02/15/21 16:00 02/15/21 17:55 02/15/21 18:04 Temperature Pulse Rate 71 57 L 63 Respiratory Rate 16 16 Blood Pressure Pulse Oximetry 95 02/15/21 20:00 02/15/21 22:00 02/16/21 00:00 Temperature 96.9 F L Pulse Rate 61 60 55 L Respiratory Rate 16 Blood Pressure 119/60 Pulse Oximetry 95 02/16/21 04:00 02/16/21 05:39 02/16/21 08:05 Temperature 96.9 F L Pulse R
[2021-02-16 09:08] LABS: Basophils Absolute Auto 0.1 K/mm3 (0.0-0.1); Basophils Percent Auto 1.1 % (0.2-1.2); Eosinophils Absolute Auto 0.4 K/mm3 (0-0.3); Eosinophils Percent Auto 5.5 % (0-4.4); Hematocrit 42.6 % (42.0-52.0); Hemoglobin 12.8 g/dL (14.0-18.0); Immature Granulocyte Absolute 0.02 K/mm3 (0.00-0.031); Immature Granulocyte Percent A 0.2 % (0-0.5); Lymphocytes Absolute Auto 1.08 K/mm3 (0.9-3.2); Lymphocytes Percent Auto 13.4 % (18.3-44.2); Mean Corpuscular Hemoglobin 27.9 pg (26-34); Mean Platelet Volume 10.5 fl (7.4-10.4); Monocytes Absolute Auto 0.7 K/mm3 (0.1-0.6); Monocytes Percent Auto 8.7 % (2.6-8.5); Neutrophils Absolute Auto 5.7 K/mm3 (1.3-6.7); Neutrophils Percent Auto 71.1 % (45.5-73.1); Platelet Count Result 404 k/mm3 (150-375); Red Blood Count 4.58 M/mm3 (4.6-6.20); Red Cell Distribution Width 13.9 % (11.5-14.5); White Blood Count 8.1 K/mm3 (4.5-10.0)
[2021-02-16 09:16] LABS: Alanine Aminotransferase 11 U/L (4-50); Albumin Level 3.6 g/dL (3.5-5.1); Alkaline Phosphatase 88 U/L (38-126); Anion Gap 9 mmol/L (8-16); Aspartate Amino Transferase 21 U/L (17-59); Bilirubin,Total 0.4 mg/dL (0.2-1.3); Blood Urea Nitrogen 30 mg/dL (9-20); Carbon Dioxide 32 mmol/L (22-30); Chloride 95 mmol/L (98-107); Estimated CRCL calculation 69 ml/min; Estimated Glomerular Filt Rate 51; Glucose 160 mg/dL (65-110); Potassium 4.8 mmol/L (3.4-5.0); Sodium 136 mmol/L (137-145)
[2021-02-16] MEDS: cefTRIAXone 2 GM in SODIUM CHLORIDE 0.9% IV 100 ML 200 ML IVPB (11:11)
[2021-02-16 12:31] LABS: Glucose Point of Care 199 mg/dl (65-105)
[2021-02-16 16:45] LABS: Glucose Point of Care 204 mg/dl (65-105)
[2021-02-16] MEDS: INSULIN ASPART (*BKC) 100 UNITS/ML SUB-Q (17:26)
--- NOTE | 2021-02-16 19:44 | PM.PNCARD ---
Progress Note: A&P Assessment and Plan (1) CHF (congestive heart failure): Qualifiers: Heart failure chronicity: unspecified Heart failure type: unspecified Qualified Code(s): I50.9 - Heart failure, unspecified Code(s): I50.9 - Heart failure, unspecified Status: Acute Assessment and Plan: Acute mild new onset diastolic CHF with mild pulmonary edema on chest xray, some shortness of breath with exertion. LVEF is normal but he does have diastolic dysfunction. Continue IV furosemide 40 mg b.i.d.. Daily BMP. Renal function stable Continue medical regimen with lisinopril, coreg. Check chest x-ray and BNP tomorrow, probably will be able to be discharged Thursday or Thursday. follow-up CHF as outpatient also. (2) Atypical chest pain: Code(s): R07.89 - Other chest pain Status: Acute Assessment and Plan: Episode of atypical chest pain that while patient was at rest which prompted ER visit. Serial troponins were negative. EKG did not have any evidence of ischemia. probably musculoskeletal. Resolved. Outpatient nuclear stress test recommended. Continue ASA for now, until stress test results available (also on Eliquis; follow-up for bleeding problems) and statin. (3) Hypertension: Code(s): I10 - Essential (primary) hypertension Status: Acute Assessment and Plan: Blood pressure has been at goal. (4) Insulin dependent diabetes mellitus: Status: Acute Assessment and Plan: Management per primary service (5) Atrial fibrillation with slow ventricular response: Code(s): I48.91 - Unspecified atrial fibrillation Status: Acute Assessment and Plan: Longstanding persistent atrial fibrillation. Continue diltiazem and Eliquis. (6) Diabetic foot ulcer: Code(s): E11.621 - Type 2 diabetes mellitus with foot ulcer; L97.509 - Non-pressure chronic ulcer of other part of unspecified foot with unspecified severity Status: Acute Assessment and Plan: Hole in my foot. Diabetic foot ulcer , chronic. Has had follow-up with wound clinic etc Intact dorsalis pedis pulses. Subjective Date/time seen: 02/16/21 19:44 Interval history: Follow-up for chest pain, persistent atrial fibrillation, mild CHF. admitted from a rehab facility. Date of service 02/16/2021: No further chest discomfort. Breathing is okay. Hopes to be discharged tomorrow. Remains on O2 at 2 L. Continue IV diuretics. Review of Systems Constitutional: Constitutional: Reports weakness Comments: Unable to walk, at rehab ENT: Denies epistaxis Cardiovascular: Cardiovascular: Denies chest pain, Reports pedal edema, Reports leg edema and Denies palpitations Comments: swelling is better Respiratory: Respiratory: Denies dyspnea Gastrointestinal: Gastrointestinal: Denies abdominal pain Genitourinary: Genitourinary: Denies dysuria Musculoskeletal: Musculoskeletal: Reports myalgias Comments: legs hurt, chronic. also has a diabetic foot ulcer Integumentary/Breasts: Skin/Breast: Reports erythema and Reports wounds Comments: Hole in my foot. diabetic foot ulcer. Has had follow-up with wound clinic etc.. Neurologic: Reports system reviewed and no additional complaints, except as documented Psychiatric: Psychiatric: Reports no additional psychiatric complaints Exam Narrative: Discharge hold middle-aged male in no distress, hard of hearing Const: General: comfortable and no acute distress HENMT: General nose exam: no epistaxis Eyes: Sclera: sclerae normal Neck: Neck: supple Resp: Effort & Inspection: normal respiratory effort Auscultation: clear to auscultation bilaterally Cardio: Rhythm: abnormal rhythm irregularly irregular Heart sounds: no murmurs Other: intact dorsalis pedis pulses bilaterally GI: GI Palp: Yes Soft to palpation and No Tenderness to palpation present (GI) Skin: Wounds: wo
[2021-02-16] MEDS: traZODone HCL 50 MG TABLET 150 MG PO (21:15)
[2021-02-16] MEDS: INSULIN GLARGINE (*BKC) 100 UNITS/ML 20 UNITS SUB-Q (21:17)
[2021-02-16 21:22] LABS: Glucose Point of Care 204 mg/dl (65-105)
[2021-02-17] VITALS (15 sets, daily range): BP systolic 113–135; BP diastolic 46–79; PULSE 51–81; RESP 18; TEMP 36.4–36.6; O2SAT 92–98
--- NOTE | 2021-02-17 02:37 | PCRCNOTE ---
pt asked therapist not to wake him if he was sleeping well. therapist came to pt room and found pt snoring. see next available administration.
[2021-02-17] MEDS: HYDROcodone/acetaminophen (*CRX) 5-325 MG TABLET 1 TAB PO ×2 (05:39→13:24)
[2021-02-17] MEDS: GABAPENTIN 300 MG CAPSULE PO ×6 (05:39→20:09)
[2021-02-17] MEDS: LEVOTHYROXINE SODIUM 100 MCG TABLET PO (05:40)
[2021-02-17 08:05] LABS: Glucose Point of Care 126 mg/dl (65-105)
[2021-02-17] MEDS: ASPIRIN 81 MG ENTERIC TABLET PO (08:15)
[2021-02-17] MEDS: DULoxetine HCL 20 MG CAPSULE.DR 40 MG PO (08:15)
[2021-02-17] MEDS: CHOLECALCIFEROL 1,000 UNITS TABLET 2000 UNITS PO (08:15)
[2021-02-17] MEDS: ISOSORBIDE MONONITRATE 30 MG TAB.ER.24H PO (08:16)
[2021-02-17] MEDS: GLIMEPIRIDE 2 MG TABLET 4 MG PO (08:16)
[2021-02-17] MEDS: PRAVASTATIN SODIUM 20 MG TABLET 40 MG PO (08:16)
[2021-02-17] MEDS: CITALOPRAM HYDROBROMIDE 20 MG TABLET PO (08:16)
[2021-02-17] MEDS: MULTIVITAMINS /C LUTEIN (CENTRUM SILVER) TABLET *BKC 1 TAB PO (08:16)
[2021-02-17] MEDS: FUROSEMIDE INJ 40 MG/4 ML VIAL IV PUSH ×2 (08:16→12:12)
[2021-02-17] MEDS: dilTIAZem HCL CD 180 MG CAP.ER.24H 360 MG PO (08:16)
[2021-02-17] MEDS: PANTOPRAZOLE 40 MG TABLET PO (08:16)
[2021-02-17] MEDS: carvediloL 12.5 MG TABLET PO ×2 (08:16→16:51)
[2021-02-17] MEDS: MAGNESIUM OXIDE 400 MG TABLET PO ×2 (08:16→18:17)
[2021-02-17] MEDS: hydrALAZINE HCL 25 MG TABLET PO (08:17)
--- NOTE | 2021-02-17 08:25 | PM.IMPN ---
Progress Note: A&P Assessment and Plan (1) Atypical chest pain: Code(s): R07.89 - Other chest pain Status: Acute Assessment and Plan: Cardiology consult serial troponin oral anticoagulation Eliquis twice a day most likely musculoskeletal resolved stress test as outpatient (2) Acute dyspnea: Code(s): R06.00 - Dyspnea, unspecified Status: Acute Assessment and Plan: Most likely acute and of chronic diastolic CHF exacerbation continue IV diuresis Daily weight intake and output Follow renal function closely (3) Atrial fibrillation with slow ventricular response: Code(s): I48.91 - Unspecified atrial fibrillation Status: Acute Assessment and Plan: Patient currently on Cardizem and Coreg and Eliquis Holding parameter for Coreg pending cardiology evaluation (4) CHF (congestive heart failure): Qualifiers: Heart failure chronicity: unspecified Heart failure type: unspecified Qualified Code(s): I50.9 - Heart failure, unspecified Code(s): I50.9 - Heart failure, unspecified Status: Acute Assessment and Plan: Acute and of chronic diastolic CHF exacerbation present on admission continue IV diuresis (5) Insulin dependent diabetes mellitus: Status: Acute Assessment and Plan: Lantus Sliding scale insulin (6) Hypertension: Code(s): I10 - Essential (primary) hypertension Status: Acute Assessment and Plan: Blood pressure is on the lower side DC lisinopril to allow for diuresis and as also patient has hyperkalemia (7) Hyperlipidemia: Code(s): E78.5 - Hyperlipidemia, unspecified Status: Acute Assessment and Plan: Continue home medication Diet and exercise (8) Morbid obesity: Code(s): E66.01 - Morbid (severe) obesity due to excess calories Status: Acute Assessment and Plan: Diet and exercise (9) Chronic anticoagulation: Code(s): Z79.01 - intermission coordinator (current) use of anticoagulants Status: Acute Assessment and Plan: Monitor (10) COPD (chronic obstructive pulmonary disease): Code(s): J44.9 - Chronic obstructive pulmonary disease, unspecified Status: Acute Assessment and Plan: Most likely associated with acute COPD exacerbation treated with inhaler treatment (11) Acute on chronic renal failure: Code(s): N17.9 - Acute kidney failure, unspecified; N18.9 - Chronic kidney disease, unspecified Status: Acute Assessment and Plan: Treated with IV Lasix improved monitor renal function daily Expect to switch to oral Lasix in a.m. (12) Hypercalcemia: Code(s): E83.52 - Hypercalcemia Status: Acute Assessment and Plan: Repeat CMP check PTH and PTH related peptide check vitamin-D DC multivitamin if no improvement will get nephrology eval cannot give IV fluid as patient has CHF Subjective Date/time seen: 02/17/21 08:25 Interval history: Patient seen and examined Patient presented to the hospital with shortness and chest pain patient was found to have CHF exacerbation also has lower extremity redness started on IV antibiotic for cellulitis D-dimer was elevated V/Q scan and Doppler ordered cardiology consulted for chest pain and shortness of breath Patient had hyperkalemia DC potassium replacement repeat CMP improved No overnight issue Shortness of breath and chest pain has significantly improved Patient denies fever headache fever I am seeing the patient for CHF Exam Narrative: Alert Chest decreased air entry bilateral Abdomen nontender nondistended CVS S1 + S2 Lower extremity positive redness and edema Objective Data Vital Signs Vital Signs: Vital Signs - 24 hr 02/16/21 12:00 02/16/21 14:00 02/16/21 14:10 Temperature 96.8 F L Pulse Rate 71 58 L Respiratory Rate 20 Blood Pressure 129/68 113/61 Pulse Oximetry 97 02/16/21 17:25 02/16/21 19:11 02/16/21 20:00 Temperature 96.3 F L Puls
[2021-02-17 09:22] LABS: Basophils Absolute Auto 0.1 K/mm3 (0.0-0.1); Basophils Percent Auto 1.3 % (0.2-1.2); Eosinophils Absolute Auto 0.4 K/mm3 (0-0.3); Eosinophils Percent Auto 6.1 % (0-4.4); Hematocrit 41.6 % (42.0-52.0); Hemoglobin 12.6 g/dL (14.0-18.0); Immature Granulocyte Absolute 0.02 K/mm3 (0.00-0.031); Immature Granulocyte Percent A 0.3 % (0-0.5); Lymphocytes Absolute Auto 0.94 K/mm3 (0.9-3.2); Lymphocytes Percent Auto 13.7 % (18.3-44.2); Mean Corpuscular HGB Conc 30.3 g/dl (32-36); Mean Corpuscular Hemoglobin 28.1 pg (26-34); Mean Corpuscular Volume 92.9 fl (80-100); Mean Platelet Volume 9.6 fl (7.4-10.4); Monocytes Absolute Auto 0.6 K/mm3 (0.1-0.6); Monocytes Percent Auto 8.7 % (2.6-8.5); Neutrophils Absolute Auto 4.8 K/mm3 (1.3-6.7); Neutrophils Percent Auto 69.9 % (45.5-73.1); Platelet Count Result 348 k/mm3 (150-375); Red Blood Count 4.48 M/mm3 (4.6-6.20); Red Cell Distribution Width 13.8 % (11.5-14.5); White Blood Count 6.9 K/mm3 (4.5-10.0)
[2021-02-17 09:34] LABS: Alanine Aminotransferase 12 U/L (4-50); Albumin Level 3.6 g/dL (3.5-5.1); Alkaline Phosphatase 83 U/L (38-126); Anion Gap 6 mmol/L (8-16); Aspartate Amino Transferase 21 U/L (17-59); Bilirubin,Total 0.4 mg/dL (0.2-1.3); Blood Urea Nitrogen 29 mg/dL (9-20); Carbon Dioxide 33 mmol/L (22-30); Chloride 94 mmol/L (98-107); Estimated CRCL calculation 65 ml/min; Estimated Glomerular Filt Rate 47; Glucose 212 mg/dL (65-110); Potassium 4.6 mmol/L (3.4-5.0); Sodium 133 mmol/L (137-145)
[2021-02-17 09:42] LABS: NT Pro B Type Natriuretic Pept 398 pg/mL (5-100)
[2021-02-17 09:45] LABS: Parathyroid Intact 55.5 pg/mL (7.5-53.5)
[2021-02-17] MEDS: APIXABAN 5 MG TABLET PO ×2 (11:03→20:10)
[2021-02-17] MEDS: cefTRIAXone 2 GM in SODIUM CHLORIDE 0.9% IV 100 ML 200 ML IVPB (11:04)
[2021-02-17 12:02] LABS: Glucose Point of Care 183 mg/dl (65-105)
[2021-02-17] MEDS: INSULIN ASPART (*BKC) 100 UNITS/ML SUB-Q (16:52)
[2021-02-17 17:41] LABS: Glucose Point of Care 222 mg/dl (65-105)
--- NOTE | 2021-02-17 19:13 | PM.PNCARD ---
Progress Note: A&P Assessment and Plan (1) CHF (congestive heart failure): Qualifiers: Heart failure chronicity: unspecified Heart failure type: unspecified Qualified Code(s): I50.9 - Heart failure, unspecified Code(s): I50.9 - Heart failure, unspecified Status: Acute Assessment and Plan: Acute mild new onset diastolic CHF with mild pulmonary edema on chest xray, some shortness of breath with exertion. LVEF is normal but he does have diastolic dysfunction. Continue IV furosemide 40 mg daily. Probably tomorrow switched to 60 mg orally daily. Daily BMP. Renal function stable Continue medical regimen with lisinopril, coreg. (2) Atrial fibrillation with slow ventricular response: Code(s): I48.91 - Unspecified atrial fibrillation Status: Acute Assessment and Plan: Longstanding persistent atrial fibrillation. Continue diltiazem and Eliquis. H heart rate has been running a bit low at times, 45- 50s. Will reduce the carvedilol to 6.25 mg b.i.d.. (3) Atypical chest pain: Code(s): R07.89 - Other chest pain Status: Acute Assessment and Plan: Episode of atypical chest pain that while patient was at rest which prompted ER visit. Serial troponins were negative. EKG did not have any evidence of ischemia. Probably musculoskeletal. Resolved. Outpatient nuclear stress test recommended. Continue ASA for now, until stress test results available (also on Eliquis; follow-up for bleeding problems) and statin. (4) Hypertension: Code(s): I10 - Essential (primary) hypertension Status: Acute Assessment and Plan: Blood pressure has been at goal. (5) Chronic venous insufficiency: Code(s): I87.2 - Venous insufficiency (chronic) (peripheral) Status: Acute Assessment and Plan: Improved w/ IV diuretic tx. (6) Diabetic foot ulcer: Code(s): E11.621 - Type 2 diabetes mellitus with foot ulcer; L97.509 - Non-pressure chronic ulcer of other part of unspecified foot with unspecified severity Status: Acute Assessment and Plan: Hole in my foot. Diabetic foot ulcer , chronic. Has had follow-up with wound clinic etc Intact dorsalis pedis pulses. Subjective Date/time seen: 02/17/21 19:13 Interval history: Follow-up for chest pain, persistent atrial fibrillation, mild CHF. Admitted from a rehab facility. Date of service 02/16/2021: No further chest discomfort. Breathing is okay. Hopes to be discharged tomorrow. Remains on O2 at 2 L. Continue IV diuretics. Date of service 02/17/2021: No SOB, off O2. Has not been out of bed though. Eager to get back to REhab and Ph Tx. Chest x-ray shows improvement. ProBNP borderline elevated but basically same at 398. Telemetry shows AFib with a controlled heart rate, sometimes dropping in the upper 40s to 50s. Review of Systems Review of Systems: All systems reviewed & are unremarkable except as noted in HPI and below Constitutional: Constitutional: Denies excessive sweating and Reports weakness Eyes: Eyes: Denies change in vision ENT: Denies Normal hearing present, Denies epistaxis and Denies neck pain Cardiovascular: Cardiovascular: Denies chest pain, Reports pedal edema, Reports leg edema, Denies palpitations and Denies dyspnea Respiratory: Respiratory: Denies chest congestion, Denies hemoptysis and Denies dyspnea Gastrointestinal: Gastrointestinal: Denies abdominal pain Genitourinary: Genitourinary: Denies hematuria and Denies urinary hesitancy Musculoskeletal: Musculoskeletal: Reports myalgias Integumentary/Breasts: Skin/Breast: Reports erythema and Reports wounds (Foot ulcer) Comments: chronic venous stasis Neurologic: Reports system reviewed and no additional complaints, except as documented, Reports Normal hearing present and Reports weakness Psychiatric: Psychiatric: Reports no additional psychiatric complaints
[2021-02-17] MEDS: traZODone HCL 50 MG TABLET 150 MG PO (20:09)
[2021-02-17] MEDS: INSULIN GLARGINE (*BKC) 100 UNITS/ML 20 UNITS SUB-Q (20:10)
[2021-02-17] MEDS: ALBUTEROL SULFATE NEB 2.5 MG/0.5 ML INH 5 MG INHALATION (20:28)
[2021-02-17] MEDS: IPRATROPIUM BR 0.02% INH SOLN 0.5 MG/2.5 ML VIAL INHALATION (20:28)
[2021-02-17 21:46] LABS: Glucose Point of Care 197 mg/dl (65-105)
[2021-02-18] VITALS (12 sets, daily range): BP systolic 101–132; BP diastolic 56–79; PULSE 61–92; RESP 16–18; TEMP 36.4–36.5; O2SAT 91–96
[2021-02-18] MEDS: IPRATROPIUM BR 0.02% INH SOLN 0.5 MG/2.5 ML VIAL INHALATION ×2 (01:16→08:55)
[2021-02-18] MEDS: ALBUTEROL SULFATE NEB 2.5 MG/0.5 ML INH 5 MG INHALATION ×2 (01:17→08:55)
[2021-02-18] MEDS: LEVOTHYROXINE SODIUM 100 MCG TABLET PO (05:05)
[2021-02-18] MEDS: GABAPENTIN 300 MG CAPSULE PO ×6 (05:05→21:02)
[2021-02-18] MEDS: HYDROcodone/acetaminophen (*CRX) 5-325 MG TABLET 1 TAB PO ×2 (05:05→10:19)
[2021-02-18 05:19] LABS: Basophils Absolute Auto 0.1 K/mm3 (0.0-0.1); Basophils Percent Auto 1.4 % (0.2-1.2); Eosinophils Absolute Auto 0.4 K/mm3 (0-0.3); Eosinophils Percent Auto 6.4 % (0-4.4); Hematocrit 40.4 % (42.0-52.0); Hemoglobin 12.3 g/dL (14.0-18.0); Immature Granulocyte Absolute 0.03 K/mm3 (0.00-0.031); Immature Granulocyte Percent A 0.5 % (0-0.5); Lymphocytes Absolute Auto 1.12 K/mm3 (0.9-3.2); Mean Corpuscular HGB Conc 30.4 g/dl (32-36); Mean Corpuscular Hemoglobin 27.6 pg (26-34); Mean Corpuscular Volume 90.8 fl (80-100); Mean Platelet Volume 10.1 fl (7.4-10.4); Monocytes Absolute Auto 0.6 K/mm3 (0.1-0.6); Monocytes Percent Auto 10.7 % (2.6-8.5); Neutrophils Absolute Auto 3.7 K/mm3 (1.3-6.7); Platelet Count Result 379 k/mm3 (150-375); Red Blood Count 4.45 M/mm3 (4.6-6.20); Red Cell Distribution Width 13.7 % (11.5-14.5); White Blood Count 5.9 K/mm3 (4.5-10.0)
[2021-02-18 05:43] LABS: Alanine Aminotransferase 11 U/L (4-50); Albumin Level 3.5 g/dL (3.5-5.1); Alkaline Phosphatase 80 U/L (38-126); Anion Gap 5 mmol/L (8-16); Aspartate Amino Transferase 19 U/L (17-59); Bilirubin,Total 0.4 mg/dL (0.2-1.3); Blood Urea Nitrogen 32 mg/dL (9-20); Calcium 10.8 mg/dL (8.4-10.2); Carbon Dioxide 35 mmol/L (22-30); Chloride 94 mmol/L (98-107); Estimated CRCL calculation 69 ml/min; Estimated Glomerular Filt Rate 51; Glucose 157 mg/dL (65-110); Potassium 4.5 mmol/L (3.4-5.0); Sodium 134 mmol/L (137-145)
[2021-02-18] MEDS: CITALOPRAM HYDROBROMIDE 20 MG TABLET PO (08:10)
[2021-02-18] MEDS: APIXABAN 5 MG TABLET PO ×2 (08:10→21:01)
[2021-02-18] MEDS: DULoxetine HCL 20 MG CAPSULE.DR 40 MG PO (08:10)
[2021-02-18] MEDS: CHOLECALCIFEROL 1,000 UNITS TABLET 2000 UNITS PO (08:10)
[2021-02-18] MEDS: PANTOPRAZOLE 40 MG TABLET PO (08:10)
[2021-02-18] MEDS: dilTIAZem HCL CD 180 MG CAP.ER.24H 360 MG PO (08:10)
[2021-02-18] MEDS: PRAVASTATIN SODIUM 20 MG TABLET 40 MG PO (08:11)
[2021-02-18] MEDS: GLIMEPIRIDE 2 MG TABLET 4 MG PO (08:11)
[2021-02-18] MEDS: ISOSORBIDE MONONITRATE 30 MG TAB.ER.24H PO (08:11)
[2021-02-18] MEDS: ASPIRIN 81 MG ENTERIC TABLET PO (08:11)
[2021-02-18] MEDS: hydrALAZINE HCL 25 MG TABLET PO (08:11)
[2021-02-18] MEDS: MAGNESIUM OXIDE 400 MG TABLET PO ×2 (08:11→16:25)
[2021-02-18] MEDS: FUROSEMIDE INJ 40 MG/4 ML VIAL IV PUSH (08:12)
[2021-02-18] MEDS: carvediloL 6.25 MG TABLET PO ×2 (08:12→16:24)
[2021-02-18] MEDS: cefTRIAXone 2 GM in SODIUM CHLORIDE 0.9% IV 100 ML 200 ML IVPB (09:33)
--- NOTE | 2021-02-18 12:02 | PM.PNCARD ---
Progress Note: A&P Assessment and Plan (1) CHF (congestive heart failure): Qualifiers: Heart failure chronicity: unspecified Heart failure type: unspecified Qualified Code(s): I50.9 - Heart failure, unspecified Code(s): I50.9 - Heart failure, unspecified Status: Acute Assessment and Plan: Acute mild new onset diastolic CHF with mild pulmonary edema on chest xray, some shortness of breath with exertion. LVEF is normal but he does have diastolic dysfunction. Will shift to oral furosemide today - 60mg daily Daily BMP. Renal function stable Continue medical regimen with lisinopril, coreg. (2) Atrial fibrillation with slow ventricular response: Code(s): I48.91 - Unspecified atrial fibrillation Status: Acute Assessment and Plan: Longstanding persistent atrial fibrillation. Continue diltiazem and Eliquis. Continue Coreg at 6.25mg b.i.d. Monitor for bleeding (3) Atypical chest pain: Code(s): R07.89 - Other chest pain Status: Acute Assessment and Plan: Episode of atypical chest pain that while patient was at rest which prompted ER visit. Serial troponins were negative. EKG did not have any evidence of ischemia. Probably musculoskeletal. Resolved. Outpatient nuclear stress test recommended. Continue ASA for now, until stress test results available (also on Eliquis; follow-up for bleeding problems) and statin. (4) Hypertension: Code(s): I10 - Essential (primary) hypertension Status: Acute Assessment and Plan: Blood pressure has been at goal. (5) Chronic venous insufficiency: Code(s): I87.2 - Venous insufficiency (chronic) (peripheral) Status: Acute Assessment and Plan: Improved w/ IV diuretic tx. (6) Diabetic foot ulcer: Code(s): E11.621 - Type 2 diabetes mellitus with foot ulcer; L97.509 - Non-pressure chronic ulcer of other part of unspecified foot with unspecified severity Status: Acute Assessment and Plan: Hole in my foot. Diabetic foot ulcer , chronic. Has had follow-up with wound clinic etc Intact dorsalis pedis pulses. Subjective Date/time seen: 02/18/21 12:02 Interval history: Follow-up for chest pain, persistent atrial fibrillation, mild CHF. Admitted from a rehab facility. Date of service 02/16/2021: No further chest discomfort. Breathing is okay. Hopes to be discharged tomorrow. Remains on O2 at 2 L. Continue IV diuretics. Date of service 02/17/2021: No SOB, off O2. Has not been out of bed though. Eager to get back to REhab and Ph Tx. Chest x-ray shows improvement. ProBNP borderline elevated but basically same at 398. Telemetry shows AFib with a controlled heart rate, sometimes dropping in the upper 40s to 50s. Date of service 02/18/2021: Feels about the same today. No chest pain, shortness of breath, palpitations. Coreg reduced yesterday because of bradycardia. Rate remains controlled generally, does have some periods on telemetry when rate is in the low 100's. Review of Systems Review of Systems: All systems reviewed & are unremarkable except as noted in HPI and below Constitutional: Constitutional: Reports weakness Eyes: Eyes: Denies change in vision ENT: Denies Normal hearing present and Denies epistaxis Cardiovascular: Cardiovascular: Denies chest pain, Reports pedal edema, Reports leg edema and Denies dyspnea Respiratory: Respiratory: Denies chest congestion, Denies hemoptysis and Denies dyspnea Gastrointestinal: Gastrointestinal: Denies abdominal pain Genitourinary: Genitourinary: Denies hematuria and Denies urinary hesitancy Musculoskeletal: Musculoskeletal: Reports myalgias Integumentary/Breasts: Skin/Breast: Reports erythema and Reports wounds (Foot ulcer) Neurologic: Reports system reviewed and no additional complaints, except as documented, Denies Normal hearing present and Reports weakness Psychi
[2021-02-18 12:13] LABS: Glucose Point of Care 157 mg/dl (65-105)
--- NOTE | 2021-02-18 14:17 | P.PNIM_ITS ---
Progress Note: A&P Assessment and Plan (1) Atypical chest pain: Code(s): R07.89 - Other chest pain Status: Acute Assessment and Plan: Presented with complaints of atypical chest pain episode. Resolved. * [place] to be musculoskeletal in etiology * Appreciate cardiology consultation * EKG reviewed with no ischemic changes and troponins negative (2) CHF (congestive heart failure): Qualifiers: Heart failure chronicity: unspecified Heart failure type: unspecified Qualified Code(s): I50.9 - Heart failure, unspecified Code(s): I50.9 - Heart failure, unspecified Status: Acute Assessment and Plan: Presented with acute dyspnea and CXR with findings consistent with pulmonary edema * Appreciate cardiology consultation * Continue with diuresis. Transition from IV Lasix today to p.o. Lasix 60 mg daily * Monitor volume status closely. * Monitor intake and output as well as daily weights * Continue carvedilol (3) Acute dyspnea: Code(s): R06.00 - Dyspnea, unspecified Status: Acute Assessment and Plan: Requiring up to 2 L supplemental O2 per nasal cannula. Most likely related to acute on chronic CHF. * He has been weaned to room air and O2 sats remaining stable * Dyspnea has resolved. * Plan as above (4) Atrial fibrillation with slow ventricular response: Code(s): I48.91 - Unspecified atrial fibrillation Status: Acute Assessment and Plan: Rate is controlled * Carvedilol decreased to 6.5 mg b.i.d. * Continue diltiazem * Continue Eliquis (5) Insulin dependent diabetes mellitus: Status: Acute Assessment and Plan: A1c is 8.7. Blood sugars have been well controlled today * Continue Accu-Cheks, sliding scale insulin, hypoglycemic protocol * Continue glimepiride * Lantus 20 units daily (6) Hypertension: Code(s): I10 - Essential (primary) hypertension Status: Acute Assessment and Plan: Blood pressure has been in the low-normal range * Continue carvedilol at decreased dose and diltiazem * Lisinopril was discontinued given patient's hyperkalemia (which has resolved). BP controlled off this medication * Monitor blood pressure trends (7) COPD (chronic obstructive pulmonary disease): Code(s): J44.9 - Chronic obstructive pulmonary disease, unspecified Status: Acute Assessment and Plan: Not in acute exacerbation. * Continue albuterol and ipratropium nebs as needed (8) Acute on chronic renal failure: Code(s): N17.9 - Acute kidney failure, unspecified; N18.9 - Chronic kidney disease, unspecified Status: Acute Assessment and Plan: Increase in creatinine up to 1.7. * Likely related to need for IV diuretics. Renal function has remained stable at 1.4 and expect continued improvement with transition to p.o. Lasix (9) Hypercalcemia: Code(s): E83.52 - Hypercalcemia Status: Acute Assessment and Plan: Calcium levels 10.8 today. * Intact PTH is minimally elevated. PTH related protein pending * Vitamin-D levels pending * Multivitamin has been discontinued * He cannot receive IV fluids given his CHF. Encourage appropriate oral fluid intake * Monitor CMP levels (10) Chronic venous insufficiency: Code(s): I87.2 - Venous insufficiency (chronic) (peripheral) Status: Acute Assessment and Plan: Chronic and unchanged. No evidence of infe
--- NOTE | 2021-02-18 14:17 | PM.IMPN ---
Progress Note: A&P Assessment and Plan (1) Atypical chest pain: Code(s): R07.89 - Other chest pain Status: Acute Assessment and Plan: Presented with complaints of atypical chest pain episode. Resolved. [place] to be musculoskeletal in etiology Appreciate cardiology consultation EKG reviewed with no ischemic changes and troponins negative (2) CHF (congestive heart failure): Qualifiers: Heart failure chronicity: unspecified Heart failure type: unspecified Qualified Code(s): I50.9 - Heart failure, unspecified Code(s): I50.9 - Heart failure, unspecified Status: Acute Assessment and Plan: Presented with acute dyspnea and CXR with findings consistent with pulmonary edema Appreciate cardiology consultation Continue with diuresis. Transition from IV Lasix today to p.o. Lasix 60 mg daily Monitor volume status closely. Monitor intake and output as well as daily weights Continue carvedilol (3) Acute dyspnea: Code(s): R06.00 - Dyspnea, unspecified Status: Acute Assessment and Plan: Requiring up to 2 L supplemental O2 per nasal cannula. Most likely related to acute on chronic CHF. He has been weaned to room air and O2 sats remaining stable Dyspnea has resolved. Plan as above (4) Atrial fibrillation with slow ventricular response: Code(s): I48.91 - Unspecified atrial fibrillation Status: Acute Assessment and Plan: Rate is controlled Carvedilol decreased to 6.5 mg b.i.d. Continue diltiazem Continue Eliquis (5) Insulin dependent diabetes mellitus: Status: Acute Assessment and Plan: A1c is 8.7. Blood sugars have been well controlled today Continue Accu-Cheks, sliding scale insulin, hypoglycemic protocol Continue glimepiride Lantus 20 units daily (6) Hypertension: Code(s): I10 - Essential (primary) hypertension Status: Acute Assessment and Plan: Blood pressure has been in the low-normal range Continue carvedilol at decreased dose and diltiazem Lisinopril was discontinued given patient's hyperkalemia (which has resolved). BP controlled off this medication Monitor blood pressure trends (7) COPD (chronic obstructive pulmonary disease): Code(s): J44.9 - Chronic obstructive pulmonary disease, unspecified Status: Acute Assessment and Plan: Not in acute exacerbation. Continue albuterol and ipratropium nebs as needed (8) Acute on chronic renal failure: Code(s): N17.9 - Acute kidney failure, unspecified; N18.9 - Chronic kidney disease, unspecified Status: Acute Assessment and Plan: Increase in creatinine up to 1.7. Likely related to need for IV diuretics. Renal function has remained stable at 1.4 and expect continued improvement with transition to p.o. Lasix (9) Hypercalcemia: Code(s): E83.52 - Hypercalcemia Status: Acute Assessment and Plan: Calcium levels 10.8 today. Intact PTH is minimally elevated. PTH related protein pending Vitamin-D levels pending Multivitamin has been discontinued He cannot receive IV fluids given his CHF. Encourage appropriate oral fluid intake Monitor CMP levels (10) Chronic venous insufficiency: Code(s): I87.2 - Venous insufficiency (chronic) (peripheral) Status: Acute Assessment and Plan: Chronic and unchanged. No evidence of infection He was started on IV Rocephin for suspected cellulitis, however these findings are chronic and will discontinue at this time Supportive care. Elevate extremities. May need to consider vascular referral as an outpatient Additional Plan Plan for discharge tomorrow pending insurance authorization for SNF Subjective Date/time seen: 02/18/21 14:17 Interval history: Date of service: 02/18/2021 Taye Marrero is a 65-year-old male with a history of CHF, hypertension, hyperlipidemia, atrial fibri
[2021-02-18 16:29] LABS: Glucose Point of Care 279 mg/dl (65-105)
[2021-02-18] MEDS: INSULIN ASPART (*BKC) 100 UNITS/ML SUB-Q (16:30)
[2021-02-18] MEDS: traZODone HCL 50 MG TABLET 150 MG PO (21:01)
[2021-02-18] MEDS: INSULIN GLARGINE (*BKC) 100 UNITS/ML 20 UNITS SUB-Q (21:09)
[2021-02-18 22:20] LABS: Glucose Point of Care 221 mg/dl (65-105)
[2021-02-19] VITALS (9 sets, daily range): BP systolic 128–152; BP diastolic 67–89; PULSE 69–90; RESP 16–20; TEMP 36.4–36.6; O2SAT 91–100
[2021-02-19] MEDS: LEVOTHYROXINE SODIUM 100 MCG TABLET PO (06:01)
[2021-02-19] MEDS: GABAPENTIN 300 MG CAPSULE PO ×6 (06:01→20:20)
[2021-02-19] MEDS: PRAVASTATIN SODIUM 20 MG TABLET 40 MG PO (07:58)
[2021-02-19] MEDS: MAGNESIUM OXIDE 400 MG TABLET PO ×2 (07:58→16:34)
[2021-02-19] MEDS: GLIMEPIRIDE 2 MG TABLET 4 MG PO (07:58)
[2021-02-19] MEDS: ISOSORBIDE MONONITRATE 30 MG TAB.ER.24H PO (07:59)
[2021-02-19] MEDS: FUROSEMIDE TABLET 20 MG, FUROSEMIDE TABLET 40 MG 60 MG PO (07:59)
[2021-02-19] MEDS: ASPIRIN 81 MG ENTERIC TABLET PO (07:59)
[2021-02-19] MEDS: APIXABAN 5 MG TABLET PO ×2 (07:59→20:20)
[2021-02-19] MEDS: CITALOPRAM HYDROBROMIDE 20 MG TABLET PO (07:59)
[2021-02-19] MEDS: PANTOPRAZOLE 40 MG TABLET PO (07:59)
[2021-02-19] MEDS: CHOLECALCIFEROL 1,000 UNITS TABLET 2000 UNITS PO (07:59)
[2021-02-19] MEDS: dilTIAZem HCL CD 180 MG CAP.ER.24H 360 MG PO (08:00)
[2021-02-19] MEDS: DULoxetine HCL 20 MG CAPSULE.DR 40 MG PO (08:00)
[2021-02-19] MEDS: carvediloL 6.25 MG TABLET PO ×2 (08:03→16:34)
[2021-02-19] MEDS: hydrALAZINE HCL 25 MG TABLET PO ×3 (08:03→16:35)
[2021-02-19 08:06] LABS: Glucose Point of Care 162 mg/dl (65-105)
[2021-02-19 09:36] LABS: Glucose Point of Care 168 mg/dl (65-105)
[2021-02-19 09:42] LABS: Hematocrit 42.9 % (42.0-52.0); Hemoglobin 13.3 g/dL (14.0-18.0); Mean Corpuscular Hemoglobin 28.1 pg (26-34); Mean Corpuscular Volume 90.7 fl (80-100); Mean Platelet Volume 10.3 fl (7.4-10.4); Platelet Count Result 380 k/mm3 (150-375); Red Blood Count 4.73 M/mm3 (4.6-6.20); Red Cell Distribution Width 13.8 % (11.5-14.5); White Blood Count 7.1 K/mm3 (4.5-10.0)
[2021-02-19 10:11] LABS: Alanine Aminotransferase 11 U/L (4-50); Albumin Level 3.9 g/dL (3.5-5.1); Alkaline Phosphatase 85 U/L (38-126); Anion Gap 6 mmol/L (8-16); Aspartate Amino Transferase 24 U/L (17-59); Bilirubin,Total 0.4 mg/dL (0.2-1.3); Blood Urea Nitrogen 29 mg/dL (9-20); Calcium 11.3 mg/dL (8.4-10.2); Carbon Dioxide 34 mmol/L (22-30); Chloride 93 mmol/L (98-107); Estimated CRCL calculation 80 ml/min; Estimated Glomerular Filt Rate > 60; Glucose 202 mg/dL (65-110); Potassium 4.5 mmol/L (3.4-5.0); Sodium 133 mmol/L (137-145)
[2021-02-19 11:51] LABS: Glucose Point of Care 294 mg/dl (65-105)
[2021-02-19] MEDS: INSULIN ASPART (*BKC) 100 UNITS/ML SUB-Q ×2 (12:04→16:35)
[2021-02-19 14:19] LABS: Vitamin D 25 Hydroxy 15.7 ng/mL
--- NOTE | 2021-02-19 14:29 | PM.PNCARD ---
Progress Note: A&P Assessment and Plan (1) CHF (congestive heart failure): Qualifiers: Heart failure chronicity: unspecified Heart failure type: unspecified Qualified Code(s): I50.9 - Heart failure, unspecified Code(s): I50.9 - Heart failure, unspecified Status: Acute Assessment and Plan: Acute mild new onset diastolic CHF with mild pulmonary edema on chest xray, some shortness of breath with exertion. LVEF is normal but he does have diastolic dysfunction. Now on furosemide 60mg daily (previous home dose 60 mg daily Renal function stable Continue medical regimen with lisinopril, coreg. (2) Atrial fibrillation with slow ventricular response: Code(s): I48.91 - Unspecified atrial fibrillation Status: Acute Assessment and Plan: Longstanding persistent atrial fibrillation. Continue diltiazem and Eliquis. Continue Coreg at 6.25mg b.i.d. Monitor for bleeding (3) Atypical chest pain: Code(s): R07.89 - Other chest pain Status: Acute Assessment and Plan: Episode of atypical chest pain that while patient was at rest which prompted ER visit. Serial troponins were negative. EKG did not have any evidence of ischemia. Probably musculoskeletal. Resolved. Outpatient nuclear stress test recommended. Continue ASA for now, until stress test results available (also on Eliquis; follow-up for bleeding problems) and statin. (4) Hypertension: Code(s): I10 - Essential (primary) hypertension Status: Acute Assessment and Plan: Blood pressure has been at goal. (5) Chronic venous insufficiency: Code(s): I87.2 - Venous insufficiency (chronic) (peripheral) Status: Acute Assessment and Plan: Improved w/ IV diuretic tx. (6) Diabetic foot ulcer: Code(s): E11.621 - Type 2 diabetes mellitus with foot ulcer; L97.509 - Non-pressure chronic ulcer of other part of unspecified foot with unspecified severity Status: Acute Assessment and Plan: Hole in my foot. Diabetic foot ulcer , chronic. Has had follow-up with wound clinic etc Intact dorsalis pedis pulses. Additional Plan Reviewed cardiac concerns w/ pt, change of relapse of CHF, rec. OPT [place] and FU OV. My office will call him for arrangements. OK for discharge from my point of view. Will need more skin care of LE after transfer (daily wash/soak and barrier skin cream). OPT FU of foot ulcer? Subjective Date/time seen: 02/19/21 14:29 Interval history: Follow-up for chest pain, persistent atrial fibrillation, mild acute diastolic CHF. EF 6-65%. Admitted from a rehab facility. Date of service 02/16/2021: No further chest discomfort. Breathing is okay. Hopes to be discharged tomorrow. Remains on O2 at 2 L. Continue IV diuretics. Date of service 02/17/2021: No SOB, off O2. Has not been out of bed though. Eager to get back to REhab and Ph T[facility]. Chest x-ray shows improvement. ProBNP borderline elevated but basically same at 398. Telemetry shows AFib with a controlled heart rate, sometimes dropping in the upper 40s to 50s. Date of service 02/18/2021: Feels about the same today. No chest pain, shortness of breath, palpitations. Coreg reduced yesterday because of bradycardia. Rate remains controlled generally, does have some periods on telemetry when rate is in the low 100's. Date of service 02/19/2021: Eager for discharge. No chest pain, shortness of breath or palpitations. Off oxygen now. Looks like he will go back to [facility] today or tomorrow. Review of Systems Review of Systems: All systems reviewed & are unremarkable except as noted in HPI and below Constitutional: Constitutional: Reports weakness Comments: Patient has not been out of bed or even sat on the edge of his bed since admission, he states; he does not feel confident in his balance. Legs are weak. Eyes: Eyes: Denies change in vision ENT
[2021-02-19] MEDS: HYDROcodone/acetaminophen (*CRX) 5-325 MG TABLET 1 TAB PO (16:02)
[2021-02-19 16:34] LABS: Glucose Point of Care 242 mg/dl (65-105)
--- NOTE | 2021-02-19 17:13 | P.PNIM_ITS ---
Progress Note: A&P Assessment and Plan (1) Atypical chest pain: Code(s): R07.89 - Other chest pain Status: Acute Assessment and Plan: Presented with complaints of atypical chest pain episode. Resolved. * [place] to be musculoskeletal in etiology * Appreciate cardiology consultation * EKG reviewed with no ischemic changes and troponins negative (2) CHF (congestive heart failure): Qualifiers: Heart failure chronicity: unspecified Heart failure type: unspecified Qualified Code(s): I50.9 - Heart failure, unspecified Code(s): I50.9 - Heart failure, unspecified Status: Acute Assessment and Plan: Presented with acute dyspnea and CXR with findings consistent with pulmonary edema. Symptomatically improved * Appreciate cardiology consultation * Continue with diuresis. Continue PO Lasix 60 mg daily * Monitor volume status closely. * Monitor intake and output as well as daily weights * Continue carvedilol (3) Acute dyspnea: Code(s): R06.00 - Dyspnea, unspecified Status: Acute Assessment and Plan: Required up to 2 L supplemental O2 per nasal cannula. Most likely related to acute on chronic CHF. * He has been weaned to room air and O2 sats remaining stable * Dyspnea has resolved. * Plan as above (4) Atrial fibrillation with slow ventricular response: Code(s): I48.91 - Unspecified atrial fibrillation Status: Acute Assessment and Plan: Rate is controlled * Carvedilol decreased to 6.5 mg b.i.d. * Continue diltiazem * Continue Eliquis (5) Insulin dependent diabetes mellitus: Status: Acute Assessment and Plan: A1c is 8.7. Blood sugars slightly elevated in the 200s today * Continue Accu-Cheks, sliding scale insulin, hypoglycemic protocol * Continue glimepiride * Lantus increased back to home dose 25 units daily (6) Hypertension: Code(s): I10 - Essential (primary) hypertension Status: Acute Assessment and Plan: Blood pressure has been well controlled * Continue carvedilol at decreased dose and diltiazem * Lisinopril was discontinued given patient's hyperkalemia (which has resolved). BP controlled off this medication * Monitor blood pressure trends (7) COPD (chronic obstructive pulmonary disease): Code(s): J44.9 - Chronic obstructive pulmonary disease, unspecified Status: Acute Assessment and Plan: Not in acute exacerbation. * Continue albuterol and ipratropium nebs as needed (8) Acute on chronic renal failure: Code(s): N17.9 - Acute kidney failure, unspecified; N18.9 - Chronic kidney disease, unspecified Status: Acute Assessment and Plan: Likely related to need for IV diuretics. * Renal function has normalized (9) Hypercalcemia: Code(s): E83.52 - Hypercalcemia Status: Acute Assessment and Plan: Calcium levels 11.3 today. * Intact PTH is minimally elevated. PTH related protein pending * Vitamin-D levels pending * Multivitamin and Vitamin D3 has been discontinued * Likely worsened due to diuresis * He cannot receive IV fluids given his CHF. Encourage appropriate oral fluid intake * Monitor BMP (10) Chronic venous insufficiency: Code(s): I87.2 - Venous insufficiency (chronic) (peripheral) Status: Acute Assessment and Plan: Chronic and unchanged. No evidence of infection * He was started on IV Rocephin fo
--- NOTE | 2021-02-19 17:13 | PM.IMPN ---
Progress Note: A&P Assessment and Plan (1) Atypical chest pain: Code(s): R07.89 - Other chest pain Status: Acute Assessment and Plan: Presented with complaints of atypical chest pain episode. Resolved. [place] to be musculoskeletal in etiology Appreciate cardiology consultation EKG reviewed with no ischemic changes and troponins negative (2) CHF (congestive heart failure): Qualifiers: Heart failure chronicity: unspecified Heart failure type: unspecified Qualified Code(s): I50.9 - Heart failure, unspecified Code(s): I50.9 - Heart failure, unspecified Status: Acute Assessment and Plan: Presented with acute dyspnea and CXR with findings consistent with pulmonary edema. Symptomatically improved Appreciate cardiology consultation Continue with diuresis. Continue PO Lasix 60 mg daily Monitor volume status closely. Monitor intake and output as well as daily weights Continue carvedilol (3) Acute dyspnea: Code(s): R06.00 - Dyspnea, unspecified Status: Acute Assessment and Plan: Required up to 2 L supplemental O2 per nasal cannula. Most likely related to acute on chronic CHF. He has been weaned to room air and O2 sats remaining stable Dyspnea has resolved. Plan as above (4) Atrial fibrillation with slow ventricular response: Code(s): I48.91 - Unspecified atrial fibrillation Status: Acute Assessment and Plan: Rate is controlled Carvedilol decreased to 6.5 mg b.i.d. Continue diltiazem Continue Eliquis (5) Insulin dependent diabetes mellitus: Status: Acute Assessment and Plan: A1c is 8.7. Blood sugars slightly elevated in the 200s today Continue Accu-Cheks, sliding scale insulin, hypoglycemic protocol Continue glimepiride Lantus increased back to home dose 25 units daily (6) Hypertension: Code(s): I10 - Essential (primary) hypertension Status: Acute Assessment and Plan: Blood pressure has been well controlled Continue carvedilol at decreased dose and diltiazem Lisinopril was discontinued given patient's hyperkalemia (which has resolved). BP controlled off this medication Monitor blood pressure trends (7) COPD (chronic obstructive pulmonary disease): Code(s): J44.9 - Chronic obstructive pulmonary disease, unspecified Status: Acute Assessment and Plan: Not in acute exacerbation. Continue albuterol and ipratropium nebs as needed (8) Acute on chronic renal failure: Code(s): N17.9 - Acute kidney failure, unspecified; N18.9 - Chronic kidney disease, unspecified Status: Acute Assessment and Plan: Likely related to need for IV diuretics. Renal function has normalized (9) Hypercalcemia: Code(s): E83.52 - Hypercalcemia Status: Acute Assessment and Plan: Calcium levels 11.3 today. Intact PTH is minimally elevated. PTH related protein pending Vitamin-D levels pending Multivitamin and Vitamin D3 has been discontinued Likely worsened due to diuresis He cannot receive IV fluids given his CHF. Encourage appropriate oral fluid intake Monitor BMP (10) Chronic venous insufficiency: Code(s): I87.2 - Venous insufficiency (chronic) (peripheral) Status: Acute Assessment and Plan: Chronic and unchanged. No evidence of infection He was started on IV Rocephin for suspected cellulitis, however these findings are chronic and will discontinue at this time Supportive care. Elevate extremities. May need to consider vascular referral as an outpatient Additional Plan Insurance authorization denied today. Patient needs to continue to work with PT/OT. Appreciate field care manager following. Subjective Date/time seen: 02/19/21 17:13 Interval history: Date of service: 02/19/2021 Taye Marrero is a 65-year-old male with a history of CHF, hypertension, hyperlipidemia,
[2021-02-19] MEDS: traZODone HCL 50 MG TABLET 150 MG PO (20:20)
[2021-02-19] MEDS: INSULIN GLARGINE (*BKC) 100 UNITS/ML 25 UNITS SUB-Q (20:20)
[2021-02-19 21:45] LABS: Glucose Point of Care 294 mg/dl (65-105)
[2021-02-20 03:49] VITALS: BP 134/63; PULSE 77; RESP 16; TEMP 36.6; O2SAT 93
[2021-02-20 05:47] LABS: Hematocrit 40.5 % (42.0-52.0); Hemoglobin 12.4 g/dL (14.0-18.0); Mean Corpuscular HGB Conc 30.6 g/dl (32-36); Mean Corpuscular Hemoglobin 27.5 pg (26-34); Mean Corpuscular Volume 89.8 fl (80-100); Mean Platelet Volume 10.2 fl (7.4-10.4); Platelet Count Result 353 k/mm3 (150-375); Red Blood Count 4.51 M/mm3 (4.6-6.20); Red Cell Distribution Width 13.7 % (11.5-14.5)
[2021-02-20 05:52] LABS: Anion Gap 6 mmol/L (8-16); Blood Urea Nitrogen 27 mg/dL (9-20); Carbon Dioxide 34 mmol/L (22-30); Chloride 93 mmol/L (98-107); Estimated CRCL calculation 80 ml/min; Estimated Glomerular Filt Rate > 60; Glucose 185 mg/dL (65-110); Potassium 4.1 mmol/L (3.4-5.0); Sodium 133 mmol/L (137-145)
[2021-02-20] MEDS: GABAPENTIN 300 MG CAPSULE PO ×4 (06:37→16:56)
[2021-02-20] MEDS: LEVOTHYROXINE SODIUM 100 MCG TABLET PO (06:37)
[2021-02-20 08:24] LABS: Glucose Point of Care 178 mg/dl (65-105)
[2021-02-20] MEDS: DULoxetine HCL 20 MG CAPSULE.DR 40 MG PO (09:14)
[2021-02-20] MEDS: hydrALAZINE HCL 25 MG TABLET PO ×2 (09:14→16:56)
[2021-02-20] MEDS: MAGNESIUM OXIDE 400 MG TABLET PO ×2 (09:14→16:57)
[2021-02-20] MEDS: PRAVASTATIN SODIUM 20 MG TABLET 40 MG PO (09:14)
[2021-02-20] MEDS: dilTIAZem HCL CD 180 MG CAP.ER.24H 360 MG PO (09:14)
[2021-02-20] MEDS: CHOLECALCIFEROL 1,000 UNITS TABLET 2000 UNITS PO (09:14)
[2021-02-20] MEDS: APIXABAN 5 MG TABLET PO (09:15)
[2021-02-20] MEDS: carvediloL 6.25 MG TABLET PO ×2 (09:15→16:57)
[2021-02-20] MEDS: ISOSORBIDE MONONITRATE 30 MG TAB.ER.24H PO (09:15)
[2021-02-20] MEDS: GLIMEPIRIDE 2 MG TABLET 4 MG PO (09:15)
[2021-02-20] MEDS: CITALOPRAM HYDROBROMIDE 20 MG TABLET PO (09:15)
[2021-02-20] MEDS: ASPIRIN 81 MG ENTERIC TABLET PO (09:15)
[2021-02-20] MEDS: FUROSEMIDE TABLET 20 MG, FUROSEMIDE TABLET 40 MG 60 MG PO (09:15)
[2021-02-20] MEDS: PANTOPRAZOLE 40 MG TABLET PO (09:15)
[2021-02-20] MEDS: SILVERGEL (ELTA) 45 ML 1 APPLIC TOPICAL (11:38)
[2021-02-20] MEDS: INSULIN ASPART (*BKC) 100 UNITS/ML SUB-Q (11:57)
[2021-02-20] MEDS: HYDROcodone/acetaminophen (*CRX) 5-325 MG TABLET 1 TAB PO (11:58)
--- NOTE | 2021-02-20 14:26 | PM.DS ---
DS: Admitting Diagnosis Discharge Date 02/20/2021 Admitting Diagnosis Atypical chest pain DS: Discharge Diagnosis Discharge Diagnosis (1) Atypical chest pain: Code(s): R07.89 - Other chest pain Status: Acute Assessment and Plan: Presented with complaints of atypical chest pain episode. Ultimately felt to be musculoskeletal in etiology. He was seen in consultation by Cardiology. EKG was reviewed with no ischemic changes and troponins were negative. No further workup felt to be required. Chest pain did resolve. (2) CHF (congestive heart failure): Qualifiers: Heart failure chronicity: unspecified Heart failure type: unspecified Qualified Code(s): I50.9 - Heart failure, unspecified Code(s): I50.9 - Heart failure, unspecified Status: Acute Assessment and Plan: Presented with acute dyspnea and CXR with findings consistent with pulmonary edema. He was seen in consultation by Cardiology and had symptomatic improvement with diuresis. Continue p.o. Lasix 60 mg daily. Continue carvedilol. CHF education provided. Follow-up with cardiology as an outpatient. (3) Acute dyspnea: Code(s): R06.00 - Dyspnea, unspecified Status: Acute Assessment and Plan: Required up to 2 L supplemental O2 per nasal cannula. Most likely related to acute on chronic CHF. He was weaned to room air and O2 sats remained stable. Dyspnea resolved. Continue with medication regimen for CHF. (4) Atrial fibrillation with slow ventricular response: Code(s): I48.91 - Unspecified atrial fibrillation Status: Acute Assessment and Plan: Rate is controlled. Carvedilol decreased to 6.5 mg b.i.d. per Cardiology recommendations. Continue diltiazem. Continue Eliquis. (5) Insulin dependent diabetes mellitus: Status: Acute Assessment and Plan: A1c is 8.7. Blood sugars were slightly elevated initially but did improve. Manage during admission with Accu-Cheks, sliding scale insulin, hypoglycemic protocol. Continue home regimen of Lantus 25 units daily and glimepiride. Monitor glucose at nursing facility. (6) Hypertension: Code(s): I10 - Essential (primary) hypertension Status: Acute Assessment and Plan: Blood pressure was well controlled. Continue carvedilol at decreased dose and diltiazem. Lisinopril was discontinued given patient's hyperkalemia (which resolved). BP controlled off this medication. Monitor blood pressure facility. (7) Acute on chronic renal failure: Code(s): N17.9 - Acute kidney failure, unspecified; N18.9 - Chronic kidney disease, unspecified Status: Acute Assessment and Plan: Likely related to need for IV diuretics. Renal function normalized (8) Hypercalcemia: Code(s): E83.52 - Hypercalcemia Status: Acute Assessment and Plan: Calcium levels ranged 10.8-11.3. Intact PTH minimally elevated. PTH related protein pending. He will need to follow-up with PCP regarding this. Multivitamin and vitamin D3 were discontinued. Suspect that hypercalcemia was worsened due to diuresis. He could not receive IV fluids given his CHF. Appropriate oral fluid intake was encouraged. Repeat calcium levels in 1 week and follow-up with PCP. (9) Chronic venous insufficiency: Code(s): I87.2 - Venous insufficiency (chronic) (peripheral) Status: Acute Assessment and Plan: Chronic and unchanged. No evidence of infection. Supportive care. Elevate extremities. May need to consider vascular referral as an outpatient DS: Summary Hospital Course Hospital Course: Date of admission: 02/15/2021 Date of discharge: 02/20/2021 Taye Marrero is a 65-year-old male with a history of CHF, hypertension, hyperlipidemia, atrial fibrillation on chronic anticoagulation, CKD stage 3, COPD, recent hospitalization at [facility] for lower extremity laceration currently underg
[2021-02-20 15:06] LABS: EDCOVIDSCREEN Negative (Negative)
[2021-02-20 16:59] VITALS: BP 131/65
[2021-02-20 18:11] LABS: Ionized Calcium 6.1 mg/dL (4.8-5.6)
[2021-02-26 17:07] LABS: Parathyroid Hormone Related Pr 19 pg/mL (11-20)
== END 2021-02-20 17:12 ==
LOC: ANHED 02-15 03:10 → ANH2MED 02-15 03:11
PROVIDERS: Emergency Medicine; Internal Medicine; Physician Assistant; Admitting Provider Internal Medicine; Emergency Provider Emergency Medicine; PCP Internal Medicine; Visit Provider Internal Medicine
DX: I13.0 Hypertensive heart and chronic kidney disease with heart failure and stage 1 through stage 4 chronic kidney disease, or unspecified chronic kidney disease (principal); I50.9 Heart failure, unspecified; N18.30 Chronic kidney disease, stage 3 unspecified; R07.89 Other chest pain; R06.02 Shortness of breath; S81.811D Laceration without foreign body, right lower leg, subsequent encounter; E11.22 Type 2 diabetes mellitus with diabetic chronic kidney disease; E83.52 Hypercalcemia; I87.8 Other specified disorders of veins; I48.91 Unspecified atrial fibrillation; G89.29 Other chronic pain; E66.01 Morbid (severe) obesity due to excess calories; J44.9 Chronic obstructive pulmonary disease, unspecified; E03.9 Hypothyroidism, unspecified; W19.XXXD Unspecified fall, subsequent encounter; Z20.822 Contact with and (suspected) exposure to COVID-19; Z79.01 Long term (current) use of anticoagulants; Z79.4 Long term (current) use of insulin; Z68.41 Body mass index [BMI] 40.0-44.9, adult
CPT/HCPCS: 36415; 71045; 73030; 78580; 80048; 80053; 82306; 82330; 82948; 83036; 83519; 83690; 83735; 83880; 83970; 84132; 84484; 85025; 85027; 85380; 85610; 85730; 87040; 87426; 93005; 93306; 93970; 94640; 96365; 96366; 96376; 97110; 97161; 97166; 97530; 97535; A9270; A9540; C9803; G0378; J0696; J1815; J1940

== ENCOUNTER 2021-03-22 12:46 | Emergency (ER) | payer OTHER, SELFPAY ==
[2021-03-22 12:51] VITALS: BP 102/62; PULSE 70; RESP 18; TEMP 36.3; O2SAT 95
--- NOTE | 2021-03-22 12:58 | PC.NURSE ---
Control Equipment Electrician contacted Alix with Care Coordination about patient's reason for ED visit. Per Alix, care coordination she will look into it.
--- NOTE | 2021-03-22 13:59 | ED.GENADULT ---
HPI - General Adult General Chief complaint: Weakness Stated complaint: d/c from rehab today, unable to care for himself Time Seen by Provider: 03/22/21 13:41 History of Present Illness HPI narrative: 65-year-old male presented to the emergency department for evaluation of persistent weakness. Patient was recently at [facility] and was discharged today. He was discharged because insurance would no longer cover his [facility] stating due to his failure to progress. patient states he is unable to walk due to his baseline weakness. states that she is unable to care for him at home. Patient denies any new complaints other than generalized weakness. Patient denies any falls or injuries. Patient denies any chest pain or shortness of breath. Patient denies any associated nausea vomiting or diarrhea. Related Data Home Medications Medication Instructions Recorded Confirmed Eliquis 5 mg PO BID 02/15/21 02/15/21 Magnesium (oxide/AA chelate) 400 cap PO BID 02/15/21 02/15/21 citalopram 20 mg PO DAILY 02/15/21 02/15/21 diltiazem HCl 360 mg PO DAILY 02/15/21 02/15/21 duloxetine 40 mg PO DAILY 02/15/21 02/15/21 gabapentin 300 mg PO 6XD 02/15/21 02/15/21 glimepiride 4 mg PO DAILY 02/15/21 02/15/21 hydralazine 25 mg PO TID 02/15/21 02/15/21 insulin glargine 25 unit SUBCUT QAM 02/15/21 02/15/21 insulin lispro [Humalog KwikPen 1 sliding scale dose SUBCUT 02/15/21 02/15/21 Insulin] USEASDIRECTD ipratropium-albuterol 3 ml INHALATION Q4H PRN 02/15/21 02/15/21 isosorbide mononitrate 30 mg PO DAILY 02/15/21 02/15/21 levothyroxine 100 mcg PO DAILY 02/15/21 02/15/21 metformin 1,000 mg PO BID 02/15/21 02/15/21 pantoprazole [Protonix] 40 mg PO DAILY 02/15/21 02/15/21 pravastatin 40 mg PO DAILY 02/15/21 02/15/21 Allergies Allergy/AdvReac Type Severity Reaction Status Date / Time No Known Allergies Allergy Verified 03/22/21 12:50 Review of Systems Review of Systems: CONSTITUTIONAL: Denies fever, chills, or sweats. EYES: Denies visual changes, redness, or discharge. ENT: Denies rhinorrhea, congestion, sore throat, or otalgia. CARDIOVASCULAR: Denies chest pain, palpitations RESPIRATORY: Denies cough or dyspnea. GASTROINTESTINAL: Denies abdominal pain, nausea, vomiting, or diarrhea. GENITOURINARY: Denies dysuria or hematuria. SKIN: Denies rash or itching. Chronic wounds on lower extremity. No acute changes MUSCULOSKELETAL: Denies back pain, joint pain, or myalgia. NEUROLOGIC: Denies headache, numbness, or weakness. Does report generalized weakness that is unchanged PSYCHIATRIC: Denies anxiety or depression. All systems reviewed & are unremarkable except as noted in HPI and below PMFSH Family History Family History Other Unknown family medical history Social History Social History (System 02/20/21 @ 08:51 by Yohana Fairchild) Smoking status: Never smoker Alcohol intake: never Substance use: never Spiritual care concerns: No Exam Narrative: APPEARANCE: Well appearing, no pain, no distress, well-nourished. HEAD: normocephalic, atraumatic. EYES: PERRLA/EOMI, conjunctivae clear. NOSE: Normal no drainage NECK: Supple. No adenopathy, no masses. RESPIRATORY: Airway patent, respirations nonlabored. Clear to auscultation bilaterally, no rales, rhonchi, wheezing. CARDIOVASCULAR: Regular rate and rhythm without murmurs rubs or gallops. ABDOMINAL: Soft, nontender, nondistended, normal bowel sounds MUSCULOSKELETAL: Moves all extremities. Bilateral lower extremity changes consistent with venous stasis. Wound on anterior right [place] with healing granulation tissue. No evidence of infection. Dressing was intact. NEURO: Alert. Cranial nerves II through XII intact. SKIN: Warm, dry. Normal Color PSYCHIATRIC: Normal affect/mood. Course Course Emergency Course: building construction ironworker was able to get placement for the patient at [facility] and rehab. Patient and family are updated on t
--- NOTE | 2021-03-22 14:19 | PC.NURSE ---
Patient assisted to stand by three staff members to pull up his pants. Patient very weak and required max assist to stand and staff had to pull up his pants. Patient then sta back down in the chair with max assist and assisted in lifting his legs onto a stool to decrease the swelling in his legs.
[2021-03-22 15:03] LABS: SARS-CoV-2 RNA PCR Negative
[2021-03-22 15:13] LABS: Basophils Absolute Auto 0.1 K/mm3 (0.0-0.1); Basophils Percent Auto 0.9 % (0.2-1.2); Eosinophils Absolute Auto 1.1 K/mm3 (0-0.3); Eosinophils Percent Auto 11.2 % (0-4.4); Hematocrit 44.5 % (42.0-52.0); Hemoglobin 13.8 g/dL (14.0-18.0); Immature Granulocyte Absolute 0.03 K/mm3 (0.00-0.031); Immature Granulocyte Percent A 0.3 % (0-0.5); Lymphocytes Absolute Auto 1.61 K/mm3 (0.9-3.2); Lymphocytes Percent Auto 16.7 % (18.3-44.2); Mean Corpuscular Hemoglobin 28.3 pg (26-34); Mean Corpuscular Volume 91.4 fl (80-100); Mean Platelet Volume 9.4 fl (7.4-10.4); Monocytes Absolute Auto 0.8 K/mm3 (0.1-0.6); Monocytes Percent Auto 7.8 % (2.6-8.5); Neutrophils Absolute Auto 6.1 K/mm3 (1.3-6.7); Neutrophils Percent Auto 63.1 % (45.5-73.1); Platelet Count Result 322 k/mm3 (150-375); Red Blood Count 4.87 M/mm3 (4.6-6.20); Red Cell Distribution Width 14.7 % (11.5-14.5); White Blood Count 9.6 K/mm3 (4.5-10.0)
[2021-03-22 15:23] LABS: Alanine Aminotransferase 13 U/L (4-50); Alkaline Phosphatase 70 U/L (38-126); Anion Gap 10 mmol/L (8-16); Aspartate Amino Transferase 23 U/L (17-59); Bilirubin,Total 0.6 mg/dL (0.2-1.3); Blood Urea Nitrogen 27 mg/dL (9-20); Calcium 10.8 mg/dL (8.4-10.2); Carbon Dioxide 28 mmol/L (22-30); Chloride 97 mmol/L (98-107); Estimated CRCL calculation 60 ml/min; Estimated Glomerular Filt Rate 47; Glucose 145 mg/dL (65-110); Potassium 4.6 mmol/L (3.4-5.0); Sodium 135 mmol/L (137-145)
--- NOTE | 2021-03-22 15:32 | PCCCNOTE ---
Addendum entered by Alix Wheeler RN 03/22/21 17:33: Called to Lakesha at [facility] to notify that patient has been accepted at [facility] message. Addendum entered by Alix Wheeler RN 03/22/21 16:24: Bedside RN notified that Marlys says that she is leaving and taking the patient home. Went to bedside to discuss. Notification received that [facility] could accept. Called back to Sharon at facility and she confirms acceptance. Report to be called to [phone] and bedside RN notified. MD at bedside to discuss. is willing to drive so doesn't have to wait for ambulance. Facility knows that it will take multiple people on their end for safe transfer. to call once he has arrived at facility [phone]. has been provided the address. Bedside RN Chyna is providing dc instructions and will get correct team for safe transfer into vehicle. Original Note: Called to ED to meet with regarding placement. Patient has been home one day from [facility]. Patient states that [facility] wouldn't pay for anymore days and dc'd home. Patient unable to stand. unable to help him transfer to toilet. Patient incontinence and cleaned but still unable to get pants pulled up all the way. 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 Patient wasn't making any progress with therapy and [facility] denied. They do not have Medicaid pending days. Per Sandra and VEGA discussed with his level of function but thought he would do okay at home, They had suggested that she get a slide board but she didn't get one. [place] does not take Medicaid pending beds. Discussed with patient and about intermediate/ medicaid pending, beds can be limited. Called to [facility] Sharon Mensah spoke with family, requests med list, facesheet, vaccine status to be faxed. Called to Lakesha at [facility], she states that she has one bed available, and requests that faacesheet,vaccine status, med list and physician notes to be sent. Faxed as requested. Called to Andrés bonds, [facility] message with [facility], faxed referral. Fax'd referral to [place]. Call received from [facility], they cannot accept but encouraged to work with [facility] at [facility]. Spoke with [facility] provided additional information that was needed and she will call home care nurse back. Confirmed that it would be a ED to facility, as patient will not be admitted.
--- NOTE | 2021-03-22 16:33 | PC.NURSE ---
Patient care report called to [facility] and rehab to RONNIE Clemente. All questions answered at this time. is taking patient there upon discharge from ED.
== END 2021-03-22 16:25 ==
PROVIDERS: Emergency Provider Emergency Medicine; PCP Internal Medicine
DX: R53.81 Other malaise (principal); Z20.822 Contact with and (suspected) exposure to COVID-19; Z79.01 Long term (current) use of anticoagulants; Z79.4 Long term (current) use of insulin
CPT/HCPCS: 36415; 80053; 85025; 99283; C9803; U0003; U0005

== ENCOUNTER 2021-12-07 19:03 | Inpatient (IN) | payer OTHER, SELFPAY ==
[2021-12-07] VITALS (29 sets, daily range): BP systolic 145–184; BP diastolic 83–114; PULSE 105–141; RESP 11–28; TEMP 39.5; O2SAT 85–98
--- NOTE | ~2021-12-07 | US_ITS ---
EXAMINATION:US venous doppler LE BI INDICATION:Bilateral leg edema TECHNIQUE: Multiple grayscale, color flow and Doppler images of the right and left lower extremity de ep venous systems were obtained and reviewed. COMPARISON:Ultrasound dated 02/15/2021 FINDINGS: The common femoral, superficial femoral and popliteal veins demonstrate normal respiratory variation, augmentation and compressibility. Color flow is also seen within the posterior tibial, pe roneal, greater saphenous and profunda veins. IMPRESSION: 1: No lower extremity deep venous thrombosis. Reviewed, dictated and finalized at location A.
--- NOTE | ~2021-12-07 | CT_ITS ---
EXAMINATION: CT brain wo con INDICATION: Altered mental status COMPARISON: 12/07/2021 TECHNIQUE: Standard unenhanced head CT. The dose-length product (DLP) was 1362.00 mGy-cm. The mA was adjusted according to patient size. Iterative reconstruction technique was employed. FINDINGS: There is no acute intraparenchymal hemorrhage. No evidence of mass lesion. No evidence of a cute infarction. There is mild periventricular and subcortical hypodensity probably related to small vessel ischemic disease. There is mild prominence of the sulci and ventricles related to cerebral atr ophy. Intracranial calcified cerebral atherosclerosis is noted. There are no extra-axial collections. There is no mass effect or midline shift. Changes in the left globe are likely from ocular lens surg darlyn. The visualized sinuses and mastoid air cells are well aerated. IMPRESSION: 1. No acute intracranial abnormality. 2. Age related findings. Reviewed, dictated and finalized at location A.
--- NOTE | ~2021-12-07 | XR_ITS ---
EXAMINATION: XR knee RT 2V DATE: 12/10/2021 13:07 INDICATION: Right knee pain TECHNIQUE: Anteroposterior and crosstable lateral views of the right knee were obtained COMPARISON: None. FINDINGS: Alignment is normal. No fracture. Chondrocalcinosis at the medial lateral compartments of the right knee. Mild joint space narrowing at the medial compartment. Small marginal osteophytes along the ruiz lla. Moderate-sized right knee joint effusion without layering lipohemarthrosis. Antegrade intramedul vinicius darin fixation in the left tibia which is partially visualized on the lateral image. IMPRESSION: 1. Right knee chondrocalcinosis and at least mild osteoarthritis in the medial and patellofemoral com partments. No acute osseous abnormality. 2. Moderate-sized right knee joint effusion. Reviewed, dictated and finalized at location B. IMPRESSION: 1. Right knee chondrocalcinosis and at least mild osteoarthritis in the medial and patellofemoral compartments. No acute osseous abnormality. 2. Moderate-sized right knee joint effusion.
--- NOTE | ~2021-12-07 | CT_ITS ---
EXAMINATION: CT brain wo con DATE: 12/07/2021 21:32 INDICATION: confusion, weakness, dificulty folowing directions . TECHNIQUE: Computed tomography (CT) of the head was performed without intravenous contrast. The mA wa s adjusted according to patient size. Iterative reconstruction technique was employed. The dose-lengt h product was 681.00 mGy-cm. COMPARISON: None FINDINGS: No acute intracranial hemorrhage or extra-axial fluid collection. No hydrocephalus, mass, or herniation. No acute ischemic infarct. Unremarkable dural venous sinus attenuation. No acute osseous abnormality. The aerated spaces are clear. Moderate atrophy and chronic white matter change. Atherosclerotic intracranial calcification. Left le ns replacement. Right cheek subdermal cyst. IMPRESSION: No acute intracranial process. Reviewed, dictated and finalized at location K.
--- NOTE | ~2021-12-07 | MR_ITS ---
EXAMINATION: MR brain/brain stem wo con DATE: 12/08/2021 10:09 INDICATION: Altered mental status TECHNIQUE: Magnetic resonance imaging (MRI) of the brain and brainstem was performed without intraven ous contrast. Sequences included sagittal and axial T1-weighted SE, axial diffusion-weighted FS SE, a xial T2*-weighted GRE, axial T2-weighted FLAIR Propeller, and axial T2-weighted Propeller. Apparent d iffusion coefficient (ADC) maps were created. COMPARISON: CT dated 12/07/2021. FINDINGS: No acute intracranial hemorrhage, infarction, mass or mass effect. Study limited by motion artifact. There are scattered mild periventricular and subcortical white matter changes, most likely related to small vessel ischemic disease (microangiopathy). Midline sagittal images are unremarkable. Sella turcica is within normal limits. No ventriculomegaly or midline shift. Paranasal sinuses are u nremarkable. Orbits are symmetric. Structures of the posterior fossa including 7/8th cranial nerve co mplexes are normal IMPRESSION: 1. No acute intracranial abnormality. 2: Chronic age-related findings. Reviewed, dictated and finalized at location A.
--- NOTE | ~2021-12-07 | XR_ITS ---
EXAMINATION: XR chest 1V portable Exam Date/Time: 12/07/2021 20:05 CDT HISTORY: Sepsis, weakness, bilateral le pain Comparison: 02/17/2021. RESULT: Lines, tubes, and devices: None. Lungs and pleura: Ill-defined reticular and groundglass opacities bilaterally. Cardiomediastinal silhouette: Stable cardiomegaly. Other: No acute osseous or upper abdominal finding. IMPRESSION: Pulmonary findings likely represent pulmonary edema. Cardiomegaly. Infection is not excluded. Reviewed, dictated and finalized at location K.
--- NOTE | ~2021-12-07 | XR_ITS ---
EXAMINATION: XR elbow LT 2V DATE: 12/10/2021 13:07 INDICATION: Acute onset nontraumatic left elbow pain TECHNIQUE: Anteroposterior and lateral views of the left elbow were obtained. COMPARISON: None. FINDINGS: Alignment is normal. No fracture or joint effusion. Joint spaces are normal. Mild soft tissue swellin g posterior to the proximal tip of the olecranon. IMPRESSION: 1. No left elbow joint effusion or osseous abnormality. Reviewed, dictated and finalized at location B.
[2021-12-07 19:14] LABS: Glucose Point of Care 247 mg/dl (65-105)
--- NOTE | 2021-12-07 19:14 | ECG_ITS ---
Measurements Intervals [place] Rate: 131 P: ME: 0 QRS: 87 QRSD: 101 T: -8 QT: 300 QTc: 444 Interpretive Statements ATRIAL FIBRILLATION WITH RAPID VENTRICULAR RESPONSE LOW QRS VOLTAGE IN PRECORDIAL LEADS [QRS DEFLECTION < 1.0 mV IN CHEST LEADS] COMPARED TO ECG 02/14/2021 23:24:10 RAPID VENTRICULAR RESPONSE IS NOW PRESENT Electronically Signed On 12-09-2021 11:17:01 CDT by Santi Bansal M.D.
--- NOTE | 2021-12-07 19:40 | ED.GENADULT ---
HPI - General Adult General Chief complaint: Weakness Stated complaint: ams and leg wounds with weakness Time Seen by Provider: 12/07/21 19:12 History of Present Illness HPI narrative: HPI limited due to patient's altered mental status. History obtained primarily by the patient's . This is a 66-year-old male with past medical history of diabetes, A. fib, who is brought in by EMS for altered mental status and fever. The patient's notes that he has complained of right leg pain, appeared feverish and confused today which is unusual for him. She notes he has a wound on the anterior right foreleg for which she was followed by wound care and does not appear to have worsened. She does not know of any other recent sick contacts denies vomiting. Related Data Home Medications Medication Instructions Recorded Confirmed gabapentin 300 mg capsule 300 mg PO QID 02/15/21 12/08/21 hydralazine 25 mg tablet 25 mg PO TID 02/15/21 12/08/21 ipratropium 0.5 mg-albuterol 3 mg 3 ml inhalation Q4H PRN Wheezing 02/15/21 12/08/21 (2.5 mg base)/3 mL nebulization soln levothyroxine 100 mcg tablet 100 mcg PO DAILY 02/15/21 12/08/21 metformin 1,000 mg tablet 1,000 mg PO BID 02/15/21 12/08/21 carvedilol 6.25 mg tablet (Coreg) 12 mg PO TID 12/08/21 12/08/21 furosemide 40 mg tablet 40 mg PO DAILY 12/08/21 12/08/21 hydrocodone 7.5 mg-acetaminophen 1 tablet PO QID 12/08/21 12/08/21 325 mg tablet insulin NPH-regular 70-30 U-100 20 unit subcut BID 12/08/21 12/08/21 insulin 100 unit/mL subcutaneous pen (Novolin 70-30 FlexPen U-100 Insulin) lisinopril 40 mg tablet 40 mg PO DAILY 12/08/21 12/08/21 omeprazole 40 mg capsule,delayed 40 mg PO DAILY 12/08/21 12/08/21 release pravastatin 40 mg tablet 40 mg PO HS 12/08/21 12/08/21 Allergies Allergy/AdvReac Type Severity Reaction Status Date / Time No Known Allergies Allergy Verified 10/09/22 02:49 Review of Systems Review of Systems: Review of systems limited due to patient's altered mental status CONSTITUTIONAL: Fever, sweats denies sweats. CARDIOVASCULAR: palpitations RESPIRATORY: Denies cough or dyspnea. GASTROINTESTINAL: Denies abdominal pain, nausea, vomiting, or diarrhea. GENITOURINARY: Denies dysuria or hematuria. SKIN: Right foreleg wound, left healing wound of the heel MUSCULOSKELETAL: Right leg pain NEUROLOGIC: Weakness and confusion PMFSH Family History Family History Other Unknown family medical history Social History Social History (System 02/20/21 @ 08:51 by Yohana Fairchild) Smoking status: Never smoker Alcohol intake: never Substance use: current Substance use type: does not use Spiritual care concerns: No Exam Narrative: GENERAL: Well-developed, well-nourished, in moderate distress HEAD: Normocephalic, atraumatic. EYES: PERRLA and EOMI. ENT: Nares clear, no rhinorrhea or epistaxis. Mucous membranes moist. Oropharynx without tonsillar hypertrophy exudate or other lesions. NECK: Supple. No adenopathy or masses. No carotid bruits or JVD CHEST: Clear to auscultation. No respiratory distress. No wheezes rales or rhonchi HEART: Irregularly irregular. No murmur heard. Normal peripheral pulses. ABDOMEN: Soft, nontender, distended, normal active bowel sounds. : Mild erythema without induration or crepitus noted EXTREMITIES: Bilateral lower extremity edema with erythema, a wound is noted over the anterior aspect of the right foreleg with small amount of purulent drainage, right leg is warm to touch compared to the left; normal range of motion. A healing wound is noted to the plantar aspect of the left heel SKIN: Warm, dry, no rash. NEURO: No focal deficits moving all 4 following commands sluggishly, alert oriented to self only Course Course Emergency Course: 21:17 - CBC remarkable for white blood cell count of 14 with normal hemoglobin and hematocrit. Chemistries show mild hyponatremia of
[2021-12-07 19:57] LABS: Basophils Absolute Auto 0.1 K/mm3 (0.0-0.1); Basophils Percent Auto 0.6 % (0.2-1.2); Eosinophils Absolute Auto 0.4 K/mm3 (0-0.3); Eosinophils Percent Auto 2.7 % (0-4.4); Hematocrit 47.4 % (42.0-52.0); Hemoglobin 14.9 g/dL (14.0-18.0); Immature Granulocyte Absolute 0.04 K/mm3 (0.00-0.031); Immature Granulocyte Percent A 0.3 % (0-0.5); Lymphocytes Absolute Auto 1.19 K/mm3 (0.9-3.2); Lymphocytes Percent Auto 8.3 % (18.3-44.2); Mean Corpuscular HGB Conc 31.4 g/dl (32-36); Mean Corpuscular Hemoglobin 28.1 pg (26-34); Mean Corpuscular Volume 89.3 fl (80-100); Mean Platelet Volume 10.4 fl (7.4-10.4); Monocytes Percent Auto 6.8 % (2.6-8.5); Neutrophils Absolute Auto 11.6 K/mm3 (1.3-6.7); Neutrophils Percent Auto 81.3 % (45.5-73.1); Platelet Count Result 235 k/mm3 (150-375); Red Blood Count 5.31 M/mm3 (4.6-6.20); Red Cell Distribution Width 13.2 % (11.5-14.5); White Blood Count 14.3 K/mm3 (4.5-10.0)
[2021-12-07] MEDS: METOPROLOL TARTRATE INJ 5 MG/5 ML VIAL IV PUSH (20:03)
[2021-12-07 20:08] LABS: INR 1.1; Prothrombin Time 13.4 Seconds (11.1-14.7)
[2021-12-07 20:09] LABS: Partial Thromboplastin Time 31.1 SECONDS (22.3-36.8)
[2021-12-07 20:10] LABS: Add Urine Microscopic? YES; Appearance Urine Clear (Clear); Bilirubin Urine Negative (Negative); Blood Urine 1+ (Negative); Color Urine Yellow (Yellow); Glucose Urine UA 3+ mg/dL (Negative); Ketones Urine Negative (Negative); Lactic Acid Reflex 1.8 mmol/L (0.7-2.0); Leukocyte Esterase Ur Negative LEU/UL (Negative); Nitrate Urine Negative (Negative); Protein Urine 2+ mg/dL (Negative); Specific Grav Ur 1.012 (1.001-1.035); Urobilinogen Urine Negative mg/dL (<2.0); WBC Urine 0-3 /hpf
[2021-12-07 20:12] LABS: Alanine Aminotransferase 19 U/L (6-50); Albumin Level 4.3 g/dL (3.5-5.1); Alkaline Phosphatase 80 U/L (38-126); Anion Gap 9 mmol/L (8-16); Aspartate Amino Transferase 30 U/L (17-59); Bilirubin,Total 0.6 mg/dL (0.2-1.3); Blood Urea Nitrogen 32 mg/dL (9-20); CRP 3.7 mg/dL (<1.0); Calcium 9.9 mg/dL (8.4-10.2); Carbon Dioxide 30 mmol/L (22-30); Chloride 94 mmol/L (98-107); Estimated CRCL calculation 75 ml/min; Estimated Glomerular Filt Rate 55; Glucose 288 mg/dL (65-110); Sodium 133 mmol/L (137-145)
[2021-12-07] MEDS: SODIUM CHLORIDE 0.9% IV 1,000 ML 999 ML IV CONT (20:14)
[2021-12-07 20:32] LABS: SARS-CoV-2 RNA PCR Negative
[2021-12-07 21:33] LABS: NT Pro B Type Natriuretic Pept 644 pg/mL (5-100); Troponin I < 0.012 ng/mL (0.000-0.034)
[2021-12-07 21:51] LABS: Alveolar/Arterial O2 Gradient 41.9 mmHg; Base Excess ABG 3.6 mEq/l (+/-2.0); Fractional Inspired Oxygen 24 %; HCO3 ABG 28.7 mEq/l (22.0-26.0); Oxygen Content ABG 19.5 %vol (16.0-22.0); Oxygen Saturation ABG 95.3 % (95.0-100.0); Oxyhemoglobin 93.6 % THb (90.0-100.0); PCO2 ABG 45.2 mmHg (35.0-45.0); PO2 ABG 75.4 mmHg (80.0-100.0); PO2 FiO2 Ratio Arterial Blood 3.14 %; Total Hemoglobin 14.8 g/dL (12.0-18.0); pH ABG 7.421 (7.350-7.450)
[2021-12-07 21:52] LABS: Device NASAL CANNULA; Modified Allen's Test Pass; Site Drawn RIGHT RADIAL
[2021-12-08] VITALS (23 sets, daily range): BP systolic 123–178; BP diastolic 73–111; PULSE 82–125; RESP 15–21; TEMP 36.3–37.1; O2SAT 87–99; BMI 44.6
[2021-12-08] MEDS: carvediloL 6.25 MG TABLET PO (01:03)
--- NOTE | 2021-12-08 01:30 | ADMGEN ---
This patient, Taye Marrero Jr., was admitted to Medical Room [facility] @0116. Patient/family oriented to hospital policies and general routines including ID bracelet, bed and alarms, visiting hours, pain management, procedures, bathroom and other care routines, personal items, smoking policy, room service/diet, and visiting hours. Information on how to activate the Rapid Response Team has been discussed. Patient/Family are encouraged to report perceived risks to care and to ask questions if they do not understand what they are told or what they should do.
[2021-12-08 08:54] LABS: Glucose Point of Care 270 mg/dl (65-105)
--- NOTE | 2021-12-08 09:05 | PC.NURSE ---
Patient down for MRI, will recheck blood sugar and give insulin when patient returns
--- NOTE | 2021-12-08 09:27 | PC.NURSE ---
called pharmacy to let them know that patient is missing 0630 and 0900 PO medications. will give when received
[2021-12-08 10:53] LABS: Glucose Point of Care 255 mg/dl (65-105)
[2021-12-08] MEDS: lisinopriL 20 MG TABLET 40 MG PO (11:03)
[2021-12-08] MEDS: carvediloL 12.5 MG TABLET PO (11:03)
[2021-12-08] MEDS: GABAPENTIN 300 MG CAPSULE PO ×3 (11:03→20:44)
[2021-12-08] MEDS: INSULIN ASPART (*BKC) 100 UNITS/ML SUB-Q ×3 (11:03→17:36)
[2021-12-08] MEDS: ASPIRIN 81 MG ENTERIC TABLET PO (11:03)
[2021-12-08] MEDS: ENOXAPARIN 40 MG/0.4 ML SYRINGE SUB-Q (11:03)
[2021-12-08] MEDS: hydrALAZINE HCL 25 MG TABLET PO ×2 (11:03→17:36)
[2021-12-08 12:24] LABS: Glucose Point of Care 303 mg/dl (65-105)
[2021-12-08 12:57] LABS: Basophils Absolute Auto 0.1 K/mm3 (0.0-0.1); Basophils Percent Auto 0.5 % (0.2-1.2); Eosinophils Absolute Auto 0.3 K/mm3 (0-0.3); Eosinophils Percent Auto 2.2 % (0-4.4); Hematocrit 45.6 % (42.0-52.0); Hemoglobin 14.3 g/dL (14.0-18.0); Immature Granulocyte Absolute 0.04 K/mm3 (0.00-0.031); Immature Granulocyte Percent A 0.3 % (0-0.5); Lymphocytes Absolute Auto 1.02 K/mm3 (0.9-3.2); Lymphocytes Percent Auto 8.8 % (18.3-44.2); Mean Corpuscular HGB Conc 31.4 g/dl (32-36); Mean Corpuscular Hemoglobin 28.1 pg (26-34); Mean Corpuscular Volume 89.6 fl (80-100); Monocytes Percent Auto 8.5 % (2.6-8.5); Neutrophils Absolute Auto 9.2 K/mm3 (1.3-6.7); Neutrophils Percent Auto 79.7 % (45.5-73.1); Platelet Count Result 213 k/mm3 (150-375); Red Blood Count 5.09 M/mm3 (4.6-6.20); Red Cell Distribution Width 13.2 % (11.5-14.5); White Blood Count 11.6 K/mm3 (4.5-10.0)
[2021-12-08 13:09] LABS: Alanine Aminotransferase 16 U/L (6-50); Albumin Level 3.9 g/dL (3.5-5.1); Alkaline Phosphatase 72 U/L (38-126); Anion Gap 9 mmol/L (8-16); Aspartate Amino Transferase 22 U/L (17-59); Bilirubin,Total 0.7 mg/dL (0.2-1.3); Blood Urea Nitrogen 25 mg/dL (9-20); Calcium 9.8 mg/dL (8.4-10.2); Carbon Dioxide 31 mmol/L (22-30); Chloride 95 mmol/L (98-107); Estimated CRCL calculation 86 ml/min; Estimated Glomerular Filt Rate > 60; Glucose 329 mg/dL (65-110); Magnesium 1.5 mg/dL (1.6-2.3); Potassium 4.8 mmol/L (3.4-5.0); Sodium 135 mmol/L (137-145)
--- NOTE | 2021-12-08 13:15 | PM.IMHP ---
H&P: HPI History of Present Illness Date/Time: 12/08/21 1215 Chief Complaint: Altered mental status, fever Narrative: Patient is a 66-year-old male with a past medical history of AFib, peripheral neuropathy, hypertension, insulin-dependent diabetes, COPD, hypothyroidism who presented to the ED for altered mental status. The patient's stated that he had woke up normal and had no issues however throughout the day he started to get more confused and she got really worried when he did know who she was. Sure so reported that the patient did have a fever. Patient does have multiple wounds on bilateral lower extremities. They go to a wound clinic at [facility] in [place]. However patient does have a wound on his right moncada and heel. He also appears to have a wound that is healed on the left heel. The patient's denies that he has had any unusual complaints including chest pain, shortness of breath, nausea, vomiting, diarrhea, constipation, sweats, chills, lightheadedness, dizziness. She did state the patient is weak and has not been able to move around much. Otherwise she denied that he was having sweats, however she did state that he has been shivering, but it is not chills. Patient stated that he has been doing okay. He denied any chest pain currently shortness of breath, nausea, vomiting, diarrhea, constipation. He did state that he was shaking but he was not cold. He did know where he was and who he was and who his was. He did state that he was having leg pain and was wondering why he could get a pain pill. I did explain that I was weakness see about his altered mental status. He did get some food and did start to try to eat. His does seem like his care provider and stated that she sometimes give some bath however sometimes she has to just use wipes. She also has a when changing his dressings between going to the wound clinic. Currently patient is A&O x3. White count is slightly elevated at 14.3. Renal function was elevated upon arrival at 1.6 but is currently 1.3 today. BNP is also elevated at 644. ESR and CRP are also elevated. Will continue cefepime and vanc for right now. All cultures are in progress. Patient is being admitted to the hospitalist service under observation Review of Systems Review of Systems: All systems reviewed & are unremarkable except as noted in HPI and below PMFSH Past Medical History Medical History Atrial fibrillation with rapid ventricular response CHF (congestive heart failure) Chronic venous insufficiency COPD (chronic obstructive pulmonary disease) GERD (gastroesophageal reflux disease) HTN (hypertension) Hyperlipidemia Hypothyroid Insulin dependent diabetes mellitus Meniscus, medial, bucket handle tear, old Family History Family History Sibling Family history of obesity Hypertension Family history of diabetes mellitus in first degree relative Family history of heart disease in male family member before age 55 Patient's sister is in good health Patient's brother is Mother Family history of arthritis Family history of malignant neoplasm Patient's mother is Father Patient's father is Other Malignant neoplasm of prostate Unknown family medical history Social History Social History (Updated 12/08/21 @ 13:22 by NANCY Lee) Social History: Patient is and it appears that his Marlys is his surrogate. She does have POA paperwork but stated that they would not take it because it was not certified. She stated that he does not want to be put on machines, but CPR is ok, however, then she stated that she will know when enough is enough, so agreed to just keep him a full code for now. They have 2 sons, and no pets. Smoking packs per day: 2 Smoking cigarettes p
[2021-12-08 13:20] LABS: Hemoglobin A1C 11.1 % (<5.7)
[2021-12-08] MEDS: LACTATED RINGERS 1,000 ML 999 ML IV CONT (14:49)
[2021-12-08] MEDS: INSULIN ASPART (*BKC) 100 UNITS/ML 10 UNITS SUB-Q (14:49)
[2021-12-08] MEDS: PANTOPRAZOLE 40 MG TABLET PO ×2 (14:49→20:44)
[2021-12-08 15:00] LABS: Glucose Point of Care 320 mg/dl (65-105)
[2021-12-08] MEDS: MAGNESIUM SULF 4 GM/WATER100ML 4 GM/100 ML BAG IVPB (16:01)
[2021-12-08 17:17] LABS: Glucose Point of Care 252 mg/dl (65-105)
--- NOTE | 2021-12-08 17:30 | PC.NURSE ---
called pharmacy for NPH insulin and powder for groin, will give when received
[2021-12-08] MEDS: TOLNAFTATE 1% POWDER 45 GM BTL 1 APPLIC TOPICAL (17:58)
[2021-12-08] MEDS: INSULIN HUMAN NPH (*BKC) 100 UNITS/ML 20 UNITS SUB-Q (18:00)
[2021-12-08] MEDS: HYDROcodone/acetaminophen (*CRX) 7.5-325 MG TABLET 1 TAB PO ×2 (18:00→20:49)
[2021-12-08 20:41] LABS: Glucose Point of Care 259 mg/dl (65-105)
[2021-12-08] MEDS: PRAVASTATIN SODIUM 20 MG TABLET 40 MG PO (20:43)
[2021-12-08] MEDS: carvediloL 25 MG TABLET PO (20:44)
[2021-12-09] VITALS (13 sets, daily range): BP systolic 118–151; BP diastolic 64–98; PULSE 65–106; RESP 12–18; TEMP 36.4–36.7; O2SAT 96–100
--- NOTE | 2021-12-09 | ECHO_ITS ---
Patient Info Name: Taye Marrero Age: 66 years : 1955 Gender: Male Ht: 71 in Wt: 319 lbs BSA: 2.76 m2 HR: 117 bpm BP: 130 / 78 mmHg Heart Rhythm: Atrial Fibrillation Technical Quality: Poor Exam Date: 12/09/2021 11:54 AM Exam Location: [facility] Pulmonary Patient Status: Inpatient Admit Date: 12/08/2021 Staff Ordering Physician: Scott Bergeron Resaw Tailer: Rafaela Damico RDCS Attending Provider: Elysia Rausch MD Referring Physician: Rubio VARLEA; Exam Type: CA echo dop color flow w con Study Info Indications R60.9 - Edema, unspecified Complete two-dimensional, color flow and Doppler transthoracic echocardiogram is performed with contrast to opacify the left ventricle and to improve the deliniation of the left ventricle endocardial borders. Contrast/Agitated Saline Contrast/Ag. Saline: Definity Amount: 4.00 ml Administered By: Rafaela Damico [facility] Reason for Poor Study: patient body habitus Summary 1. Normal left ventricular size with vigorous systolic contractility. 2. Dilated left atrium. 3. Atrial fibrillation. 4. No significant valvular dysfunction. Left Ventricle Left ventricular chamber dimension is normal. Left ventricular systolic function is normal, estimated at 65-70%. The left ventricular diastolic function is indeterminate. Right Ventricle Right ventricular chamber dimension is normal. Left Atria Left atrial chamber dimension is moderately enlarged. Right Atria Right atrial chamber dimension is normal. Aortic Valve The aortic valve is normal. Pulmonic Valve The pulmonic valve is not well visualized. Mitral Valve The mitral valve has normal leaflets. Tricuspid Valve The tricuspid valve leaflets are not well visualized. Pericardium/Pleural The pericardium appears normal. Aorta The aortic root size at the sinus of Valsalva is normal. Left Ventricular Outflow Tract Name Value Normal LVOT 2D LVOT Diameter 2.06 cm LVOT Doppler LVOT Peak Gradient 5 mmHg LVOT Mean Gradient 3 mmHg LVOT VTI 18.69 cm LVOT VTI/AV VTI Ratio 0.95 LVOT Stroke Volume 62.34 ml LVOT CO 5.16 l/min LVOT CI 1.87 L/min/m2 Pulmonic Valve Name Value Normal PV Doppler PV Peak Gradient 5 mmHg Tricuspid Valve Name Value Normal TV Diastolic Function TV E Peak Velocity 84.37 cm/s
[2021-12-09] MEDS: HYDROcodone/acetaminophen (*CRX) 7.5-325 MG TABLET 1 TAB PO ×2 (04:54→11:59)
[2021-12-09 05:14] LABS: Basophils Absolute Auto 0.1 K/mm3 (0.0-0.1); Basophils Percent Auto 0.7 % (0.2-1.2); Eosinophils Absolute Auto 0.4 K/mm3 (0-0.3); Eosinophils Percent Auto 4.8 % (0-4.4); Hematocrit 46.5 % (42.0-52.0); Hemoglobin 14.4 g/dL (14.0-18.0); Immature Granulocyte Absolute 0.04 K/mm3 (0.00-0.031); Immature Granulocyte Percent A 0.5 % (0-0.5); Lymphocytes Absolute Auto 1.34 K/mm3 (0.9-3.2); Lymphocytes Percent Auto 15.4 % (18.3-44.2); Mean Corpuscular Hemoglobin 28.1 pg (26-34); Mean Corpuscular Volume 90.8 fl (80-100); Mean Platelet Volume 9.9 fl (7.4-10.4); Monocytes Absolute Auto 0.9 K/mm3 (0.1-0.6); Monocytes Percent Auto 10.7 % (2.6-8.5); Neutrophils Absolute Auto 5.9 K/mm3 (1.3-6.7); Neutrophils Percent Auto 67.9 % (45.5-73.1); Platelet Count Result 222 k/mm3 (150-375); Red Blood Count 5.12 M/mm3 (4.6-6.20); Red Cell Distribution Width 13.2 % (11.5-14.5); White Blood Count 8.7 K/mm3 (4.5-10.0)
[2021-12-09 05:31] LABS: Alanine Aminotransferase 15 U/L (6-50); Albumin Level 3.9 g/dL (3.5-5.1); Alkaline Phosphatase 69 U/L (38-126); Anion Gap 9 mmol/L (8-16); Aspartate Amino Transferase 25 U/L (17-59); Bilirubin,Total 0.7 mg/dL (0.2-1.3); Blood Urea Nitrogen 22 mg/dL (9-20); Calcium 9.7 mg/dL (8.4-10.2); Carbon Dioxide 31 mmol/L (22-30); Chloride 95 mmol/L (98-107); Estimated CRCL calculation 94 ml/min; Estimated Glomerular Filt Rate > 60; Glucose 190 mg/dL (65-110); Potassium 4.6 mmol/L (3.4-5.0); Sodium 135 mmol/L (137-145)
[2021-12-09] MEDS: LEVOTHYROXINE SODIUM 100 MCG TABLET PO (06:14)
[2021-12-09 08:01] LABS: Glucose Point of Care 180 mg/dl (65-105)
[2021-12-09] MEDS: carvediloL 25 MG TABLET PO ×2 (09:02→21:38)
[2021-12-09] MEDS: INSULIN HUMAN NPH (*BKC) 100 UNITS/ML 20 UNITS SUB-Q ×2 (09:02→17:16)
[2021-12-09] MEDS: ENOXAPARIN 40 MG/0.4 ML SYRINGE SUB-Q (09:04)
[2021-12-09] MEDS: ASPIRIN 81 MG ENTERIC TABLET PO (09:04)
[2021-12-09] MEDS: PANTOPRAZOLE 40 MG TABLET PO ×2 (09:04→21:38)
[2021-12-09] MEDS: GABAPENTIN 300 MG CAPSULE PO ×4 (09:04→21:38)
[2021-12-09] MEDS: lisinopriL 20 MG TABLET 40 MG PO (09:04)
[2021-12-09] MEDS: hydrALAZINE HCL 25 MG TABLET PO ×3 (09:05→17:18)
[2021-12-09] MEDS: TOLNAFTATE 1% POWDER 45 GM BTL 1 APPLIC TOPICAL ×2 (09:05→21:39)
[2021-12-09 09:24] LABS: Glucose Point of Care 186 mg/dl (65-105)
--- NOTE | 2021-12-09 10:45 | PM.IMPN ---
Progress Note: A&P Assessment and Plan (1) Cellulitis of leg, right: Code(s): L03.115 - Cellulitis of right lower limb Status: Acute Assessment and Plan: Known chronic wound on the right, and left leg Wound culture Wound care consult Continue Cefepime and vanc from ED Restarted pain medications since mental status is better WBC is elevated at 14.3, trending down to 8.7 Continue to trend labs Adjust therapy as indicated (2) Sepsis: Code(s): A41.9 - Sepsis, unspecified organism Status: Acute Assessment and Plan: Patient meets sirs criteria with leukocytosis, fever, tachypnea, tachycardia Lactic acid is unremarkable Source of infection could be leg wounds, coccyx wounds Blood cultures pending Wound culture ordered Trend labs WBC elevated at trending down currently 8.7 Qsofa score upon arrival was a 2 Fluids given in the ed Chest xray indicates pulm edema possible infection Adjust therapy as indicated (3) Chronic kidney disease, stage 3: Code(s): N18.30 - Chronic kidney disease, stage 3 unspecified Status: Acute Assessment and Plan: Current BUN/Cr 22/1.00 Baseline creatinine is 1.2-1.5 Stable at this time Renal adjust medications Avoid nephrotoxic medication (4) Hypertension: Code(s): I10 - Essential (primary) hypertension Status: Acute Assessment and Plan: BP noted to be stable at 130/78 However were noted to be elevated upon arrival Trend BP Continue home carvedilol, lisinopril Trend BP Adjust therapy as indicated (5) CHF (congestive heart failure): Qualifiers: Heart failure chronicity: unspecified Heart failure type: unspecified Qualified Code(s): I50.9 - Heart failure, unspecified Code(s): I50.9 - Heart failure, unspecified Status: Acute Assessment and Plan: Appears to be acute on chronic diastiolic heart failure Echo from 2020 shows EF of 60-65% with abnormal diastolic function Repeat echo pending read Lasix 40mg IV daily for now BNP slightly elevated at 644 Trend urine output Daily weights Hold home PO Lasix for now Adjust therapy as indicated (6) Acute metabolic encephalopathy: Code(s): G93.41 - Metabolic encephalopathy Status: Acute Assessment and Plan: Came in noted to be confused, seems to be resolving Could be from infection, stroke Head CT does not indicate any acute problems MRI of the brain did not show any abnormalities Antibiotics cefepime and vancomycin Trend labs Trend mental status (7) Insulin dependent diabetes mellitus: Status: Acute Assessment and Plan: Glucose 190 Continue home NPH Hold metformin ISS Hypoglycemia protocol Trend glucose One time dose of aspart 10 units, and fluids A1c 11.1 (8) Atrial fibrillation with rapid ventricular response: Code(s): I48.91 - Unspecified atrial fibrillation Status: Acute Assessment and Plan: Currently afib RVR Does have multiple periods of high heart rate Give another liter of fluids Increased carvedilol to 25 Trend heart rate Adjust therapy as indicated Time Spent With Patient Time with patient: Greater than 35 minutes Subjective Date/time seen: 12/09/211044 Interval history: 12/09/211044 Patient was resting comfortably in bed. Patient stated that he is having chills. He was also tremoring. He denies any chest pain, shortness a breath, nausea, vomiting, diarrhea, constipation. His legs do not feel is warm however they are still red. Awaiting wound nurse's recommendations at this point. 12/08/21? 1215 Patient is a 66-year-old male with a past medical history of AFib, peripheral neuropathy, hypertension, insulin-dependent diabetes, COPD, hypothyroidism who presented to the ED for altered mental st
--- NOTE | 2021-12-09 10:45 | P.PNIM_ITS ---
Progress Note: A&P Assessment and Plan (1) Cellulitis of leg, right: Code(s): L03.115 - Cellulitis of right lower limb Status: Acute Assessment and Plan: * Known chronic wound on the right, and left leg * Wound culture * Wound care consult * Continue Cefepime and vanc from ED * Restarted pain medications since mental status is better * WBC is elevated at 14.3, trending down to 8.7 * Continue to trend labs * Adjust therapy as indicated (2) Sepsis: Code(s): A41.9 - Sepsis, unspecified organism Status: Acute Assessment and Plan: * Patient meets sirs criteria with leukocytosis, fever, tachypnea, tachycardia * Lactic acid is unremarkable * Source of infection could be leg wounds, coccyx wounds * Blood cultures pending * Wound culture ordered * Trend labs * WBC elevated at trending down currently 8.7 * Qsofa score upon arrival was a 2 * Fluids given in the ed * Chest xray indicates pulm edema possible infection * Adjust therapy as indicated (3) Chronic kidney disease, stage 3: Code(s): N18.30 - Chronic kidney disease, stage 3 unspecified Status: Acute Assessment and Plan: * Current BUN/Cr 22/1.00 * Baseline creatinine is 1.2-1.5 * Stable at this time * Renal adjust medications * Avoid nephrotoxic medication (4) Hypertension: Code(s): I10 - Essential (primary) hypertension Status: Acute Assessment and Plan: * BP noted to be stable at 130/78 * However were noted to be elevated upon arrival * Trend BP * Continue home carvedilol, lisinopril * Trend BP * Adjust therapy as indicated (5) CHF (congestive heart failure): Qualifiers: Heart failure chronicity: unspecified Heart failure type: unspecified Qualified Code(s): I50.9 - Heart failure, unspecified Code(s): I50.9 - Heart failure, unspecified Status: Acute Assessment and Plan: * Appears to be acute on chronic diastiolic heart failure * Echo from 2020 shows EF of 60-65% with abnormal diastolic function * Repeat echo pending read * Lasix 40mg IV daily for now * BNP slightly elevated at 644 * Trend urine output * Daily weights * Hold home PO Lasix for now * Adjust therapy as indicated (6) Acute metabolic encephalopathy: Code(s): G93.41 - Metabolic encephalopathy Status: Acute Assessment and Plan: * Came in noted to be confused, seems to be resolving * Could be from infection, stroke * Head CT does not indicate any acute problems * MRI of the brain did not show any abnormalities * Antibiotics cefepime and vancomycin * Trend labs * Trend mental status (7) Insulin dependent diabetes mellitus: Status: Acute Assessment and Plan: * Glucose 190 * Continue home NPH * Hold metformin * ISS * Hypoglycemia protocol * Trend glucose * One time dose of aspart 10 units, and fluids * A1c 11.1 (8) Atrial fibrillation with rapid ventricular response: Code(s): I48.91 - Unspecified atrial fibrillation Status: Acute Assessment and Plan: * Currently afib RVR * Does have multiple periods of high heart rate * Give another liter of fluids * Increased carvedilol to 25 * Trend heart rate * Adjust therapy as indicated
[2021-12-09] MEDS: PERFLUTREN LIPID MICROSPHERES 1.5 ML VIAL DILUTED TO 10 ML TOTAL VOLUME IV PUSH (11:54)
[2021-12-09] MEDS: SILVERGEL (ELTA) 45 ML 1 APPLIC TOPICAL (11:58)
[2021-12-09] MEDS: INSULIN ASPART (*BKC) 100 UNITS/ML SUB-Q (12:01)
[2021-12-09 12:04] LABS: Glucose Point of Care 205 mg/dl (65-105)
[2021-12-09 17:07] LABS: Glucose Point of Care 185 mg/dl (65-105)
[2021-12-09] MEDS: PRAVASTATIN SODIUM 20 MG TABLET 40 MG PO (21:38)
[2021-12-09 22:00] LABS: Glucose Point of Care 240 mg/dl (65-105)
[2021-12-10] VITALS (15 sets, daily range): BP systolic 117–132; BP diastolic 59–74; PULSE 64–114; RESP 16–20; TEMP 35.8–36.9; O2SAT 92–98
[2021-12-10 01:51] LABS: Vancomycin Trough 24.8 ug/mL (10.0-20.0)
[2021-12-10 03:02] LABS: Alveolar/Arterial O2 Gradient 101.1 mmHg; Base Excess ABG 3.1 mEq/l (+/-2.0); Fractional Inspired Oxygen 32 %; HCO3 ABG 27.8 mEq/l (22.0-26.0); Oxygen Content ABG 18.8 %vol (16.0-22.0); Oxygen Saturation ABG 95.6 % (95.0-100.0); Oxyhemoglobin 94.2 % THb (90.0-100.0); PO2 ABG 76.8 mmHg (80.0-100.0); Total Hemoglobin 14.2 g/dL (12.0-18.0); pH ABG 7.429 (7.350-7.450)
[2021-12-10 03:03] LABS: Device NASAL CANNULA; Modified Allen's Test Pass; Site Drawn RIGHT RADIAL
[2021-12-10] MEDS: LEVOTHYROXINE SODIUM 100 MCG TABLET PO (05:52)
[2021-12-10] MEDS: HYDROcodone/acetaminophen (*CRX) 7.5-325 MG TABLET 1 TAB PO (06:16)
[2021-12-10 08:29] LABS: Hematocrit 40.2 % (42.0-52.0); Hemoglobin 12.7 g/dL (14.0-18.0); Mean Corpuscular HGB Conc 31.6 g/dl (32-36); Mean Corpuscular Volume 88.5 fl (80-100); Mean Platelet Volume 10.2 fl (7.4-10.4); Platelet Count Result 212 k/mm3 (150-375); Red Blood Count 4.54 M/mm3 (4.6-6.20); Red Cell Distribution Width 13.2 % (11.5-14.5); White Blood Count 10.8 K/mm3 (4.5-10.0)
[2021-12-10 08:33] LABS: Alanine Aminotransferase 11 U/L (6-50); Albumin Level 3.3 g/dL (3.5-5.1); Alkaline Phosphatase 50 U/L (38-126); Anion Gap 11 mmol/L (8-16); Aspartate Amino Transferase 21 U/L (17-59); Bilirubin,Total 0.8 mg/dL (0.2-1.3); Blood Urea Nitrogen 18 mg/dL (9-20); Calcium 9.3 mg/dL (8.4-10.2); Carbon Dioxide 25 mmol/L (22-30); Chloride 96 mmol/L (98-107); Estimated CRCL calculation 103 ml/min; Estimated Glomerular Filt Rate > 60; Glucose 213 mg/dL (65-110); Potassium 4.3 mmol/L (3.4-5.0); Sodium 132 mmol/L (137-145)
[2021-12-10 08:38] LABS: Glucose Point of Care 230 mg/dl (65-105)
[2021-12-10] MEDS: INSULIN ASPART (*BKC) 100 UNITS/ML SUB-Q ×3 (09:15→17:22)
[2021-12-10] MEDS: INSULIN HUMAN NPH (*BKC) 100 UNITS/ML 20 UNITS SUB-Q ×2 (09:18→17:22)
[2021-12-10] MEDS: carvediloL 25 MG TABLET PO ×2 (09:19→19:52)
[2021-12-10] MEDS: ASPIRIN 81 MG ENTERIC TABLET PO (09:19)
[2021-12-10] MEDS: ENOXAPARIN 40 MG/0.4 ML SYRINGE SUB-Q (09:20)
[2021-12-10] MEDS: hydrALAZINE HCL 25 MG TABLET PO ×3 (09:20→18:05)
[2021-12-10] MEDS: GABAPENTIN 300 MG CAPSULE PO ×4 (09:20→19:54)
[2021-12-10] MEDS: lisinopriL 20 MG TABLET 40 MG PO (09:20)
[2021-12-10] MEDS: SILVERGEL (ELTA) 45 ML 1 APPLIC TOPICAL (09:21)
[2021-12-10] MEDS: TOLNAFTATE 1% POWDER 45 GM BTL 1 APPLIC TOPICAL ×2 (09:21→19:54)
[2021-12-10] MEDS: PANTOPRAZOLE 40 MG TABLET PO ×2 (09:21→19:54)
--- NOTE | 2021-12-10 09:30 | PM.IMPN ---
Progress Note: A&P Assessment and Plan (1) Cellulitis of leg, right: Code(s): L03.115 - Cellulitis of right lower limb Status: Acute Assessment and Plan: Known chronic wound on the right, and left leg Wound culture grew gram positive cocci in clusters, and gram positive bacilli, however, appears to be a preliminary result Wound care consult Continue Cefepime and vanc from ED Restarted pain medications since mental status is better WBC is 10.8 today Continue to trend labs Adjust therapy as indicated (2) Sepsis: Code(s): A41.9 - Sepsis, unspecified organism Status: Acute Assessment and Plan: Patient meets sirs criteria with leukocytosis, fever, tachypnea, tachycardia Lactic acid is unremarkable Source of infection could be leg wounds, coccyx wounds Blood cultures pending Wound culture gram positive cocci in clusters, and gram positive bacilli Trend labs WBC currently 10.8 Qsofa score upon arrival was a 2 Fluids given in the ed Chest xray indicates pulm edema possible infection Adjust therapy as indicated (3) Chronic kidney disease, stage 3: Code(s): N18.30 - Chronic kidney disease, stage 3 unspecified Status: Acute Assessment and Plan: Current BUN/Cr 18/0.90, seems resolved Baseline creatinine is 1.2-1.5 Stable at this time Renal adjust medications Avoid nephrotoxic medication (4) Hypertension: Code(s): I10 - Essential (primary) hypertension Status: Acute Assessment and Plan: BP noted to be stable at 117/63 However were noted to be elevated upon arrival Trend BP Continue home carvedilol, lisinopril Trend BP Adjust therapy as indicated (5) CHF (congestive heart failure): Qualifiers: Heart failure chronicity: unspecified Heart failure type: unspecified Qualified Code(s): I50.9 - Heart failure, unspecified Code(s): I50.9 - Heart failure, unspecified Status: Acute Assessment and Plan: Appears to be acute on chronic diastiolic heart failure Echo from 2020 shows EF of 60-65% with abnormal diastolic function Repeat echo shows an EF of 65-70% with indeterminate diastolic dysfunction Lasix 40mg IV, change to PO BNP slightly elevated at 644 Trend urine output Daily weights Adjust therapy as indicated (6) Acute metabolic encephalopathy: Code(s): G93.41 - Metabolic encephalopathy Status: Acute Assessment and Plan: Came in noted to be confused, seems to be resolving Could be from infection, stroke Head CT does not indicate any acute problems MRI of the brain did not show any abnormalities Antibiotics cefepime and vancomycin Trend labs Trend mental status (7) Insulin dependent diabetes mellitus: Status: Acute Assessment and Plan: Glucose 213 Continue home NPH Hold metformin ISS Hypoglycemia protocol Trend glucose One time dose of aspart 10 units, and fluids A1c 11.1 (8) Atrial fibrillation with rapid ventricular response: Code(s): I48.91 - Unspecified atrial fibrillation Status: Acute Assessment and Plan: Heart rate seems to go up but not sustained Continue carvedilol at 25mg PO BID Trend heart rate Adjust therapy as indicated Continue tele at this time Plan For the Left elbow pain and the right knee pain will get xrays Time Spent With Patient Time with patient: Greater than 35 minutes Subjective Date/time seen: 12/10/21929 Interval history: 12/10/21929 Patient is alert and awake. He had just finished breakfast and ate pretty good. He does seem to be about A&O times 1-2 he thinks is 2019 and that the month is December. I think this might be his baseline however not sure that you would get a solid answer if he were to inquire from his . He was complaining of left el
--- NOTE | 2021-12-10 09:30 | P.PNIM_ITS ---
Progress Note: A&P Assessment and Plan (1) Cellulitis of leg, right: Code(s): L03.115 - Cellulitis of right lower limb Status: Acute Assessment and Plan: * Known chronic wound on the right, and left leg * Wound culture grew gram positive cocci in clusters, and gram positive bacilli, however, appears to be a preliminary result * Wound care consult * Continue Cefepime and vanc from ED * Restarted pain medications since mental status is better * WBC is 10.8 today * Continue to trend labs * Adjust therapy as indicated (2) Sepsis: Code(s): A41.9 - Sepsis, unspecified organism Status: Acute Assessment and Plan: * Patient meets sirs criteria with leukocytosis, fever, tachypnea, tachycardia * Lactic acid is unremarkable * Source of infection could be leg wounds, coccyx wounds * Blood cultures pending * Wound culture gram positive cocci in clusters, and gram positive bacilli * Trend labs * WBC currently 10.8 * Qsofa score upon arrival was a 2 * Fluids given in the ed * Chest xray indicates pulm edema possible infection * Adjust therapy as indicated (3) Chronic kidney disease, stage 3: Code(s): N18.30 - Chronic kidney disease, stage 3 unspecified Status: Acute Assessment and Plan: * Current BUN/Cr 18/0.90, seems resolved * Baseline creatinine is 1.2-1.5 * Stable at this time * Renal adjust medications * Avoid nephrotoxic medication (4) Hypertension: Code(s): I10 - Essential (primary) hypertension Status: Acute Assessment and Plan: * BP noted to be stable at 117/63 * However were noted to be elevated upon arrival * Trend BP * Continue home carvedilol, lisinopril * Trend BP * Adjust therapy as indicated (5) CHF (congestive heart failure): Qualifiers: Heart failure chronicity: unspecified Heart failure type: unspecified Qualified Code(s): I50.9 - Heart failure, unspecified Code(s): I50.9 - Heart failure, unspecified Status: Acute Assessment and Plan: * Appears to be acute on chronic diastiolic heart failure * Echo from 2020 shows EF of 60-65% with abnormal diastolic function * Repeat echo shows an EF of 65-70% with indeterminate diastolic dysfunction * Lasix 40mg IV, change to PO * BNP slightly elevated at 644 * Trend urine output * Daily weights * Adjust therapy as indicated (6) Acute metabolic encephalopathy: Code(s): G93.41 - Metabolic encephalopathy Status: Acute Assessment and Plan: * Came in noted to be confused, seems to be resolving * Could be from infection, stroke * Head CT does not indicate any acute problems * MRI of the brain did not show any abnormalities * Antibiotics cefepime and vancomycin * Trend labs * Trend mental status (7) Insulin dependent diabetes mellitus: Status: Acute Assessment and Plan: * Glucose 213 * Continue home NPH * Hold metformin * ISS * Hypoglycemia protocol * Trend glucose * One time dose of aspart 10 units, and fluids * A1c 11.1 (8) Atrial fibrillation with rapid ventricular response: Code(s): I48.91 - Unspecified atrial fibrillation Status: Acute Assessment and Plan: * Heart rate seems to go up but not sustained * Continue carvedilol at 25mg PO BID * Trend h
[2021-12-10 11:51] LABS: Glucose Point of Care 248 mg/dl (65-105)
[2021-12-10] MEDS: polyethylene glycoL 3350 17 GM POWD.PACK PO (14:06)
[2021-12-10] MEDS: DOCUSATE SODIUM 100 MG CAPSULE PO ×2 (14:06→19:53)
[2021-12-10 16:57] LABS: Glucose Point of Care 278 mg/dl (65-105)
--- NOTE | 2021-12-10 17:04 | PC.NURSE ---
Patient has had progressive mental status changes today, as of 1699 pt unable to answer any orientation questions, no hand measurement advisor bilaterally, pupils non-reactive to light, and pt is shouting and staring but can't verbalize what he is looking at. states he has never been this far off of his baseline. Called Dr. Mott, waiting for call back. will continue to monitor
[2021-12-10] MEDS: PRAVASTATIN SODIUM 20 MG TABLET 40 MG PO (19:53)
[2021-12-10 22:06] LABS: Glucose Point of Care 284 mg/dl (65-105)
[2021-12-11] VITALS (16 sets, daily range): BP systolic 88–133; BP diastolic 48–88; PULSE 59–131; RESP 16–21; TEMP 36.2–36.9; O2SAT 94–100
[2021-12-11] MEDS: LEVOTHYROXINE SODIUM 100 MCG TABLET PO (06:30)
[2021-12-11] MEDS: hydrALAZINE HCL 25 MG TABLET PO ×2 (08:04→12:45)
[2021-12-11] MEDS: lisinopriL 20 MG TABLET 40 MG PO (08:05)
[2021-12-11] MEDS: DOCUSATE SODIUM 100 MG CAPSULE PO ×2 (08:05→21:26)
[2021-12-11] MEDS: polyethylene glycoL 3350 17 GM POWD.PACK PO (08:05)
[2021-12-11] MEDS: ASPIRIN 81 MG ENTERIC TABLET PO (08:05)
[2021-12-11] MEDS: GABAPENTIN 300 MG CAPSULE PO ×4 (08:05→21:26)
[2021-12-11] MEDS: PANTOPRAZOLE 40 MG TABLET PO ×2 (08:05→21:26)
[2021-12-11] MEDS: carvediloL 25 MG TABLET PO ×2 (08:05→21:26)
[2021-12-11] MEDS: ENOXAPARIN 40 MG/0.4 ML SYRINGE SUB-Q (08:06)
[2021-12-11] MEDS: SILVERGEL (ELTA) 45 ML 1 APPLIC TOPICAL (08:06)
[2021-12-11] MEDS: TOLNAFTATE 1% POWDER 45 GM BTL 1 APPLIC TOPICAL ×2 (08:06→21:27)
[2021-12-11 08:54] LABS: Glucose Point of Care 266 mg/dl (65-105)
[2021-12-11 09:10] LABS: Mean Corpuscular HGB Conc 31.7 g/dl (32-36); Mean Corpuscular Hemoglobin 28.4 pg (26-34); Mean Corpuscular Volume 89.7 fl (80-100); Mean Platelet Volume 9.8 fl (7.4-10.4); Platelet Count Result 231 k/mm3 (150-375); Red Blood Count 4.57 M/mm3 (4.6-6.20); Red Cell Distribution Width 13.1 % (11.5-14.5); White Blood Count 10.6 K/mm3 (4.5-10.0)
[2021-12-11] MEDS: INSULIN ASPART (*BKC) 100 UNITS/ML SUB-Q ×3 (09:10→17:47)
[2021-12-11] MEDS: INSULIN HUMAN NPH (*BKC) 100 UNITS/ML 20 UNITS SUB-Q ×2 (09:11→17:48)
[2021-12-11 09:21] LABS: Anion Gap 9 mmol/L (8-16); Blood Urea Nitrogen 18 mg/dL (9-20); Calcium 9.9 mg/dL (8.4-10.2); Carbon Dioxide 26 mmol/L (22-30); Chloride 96 mmol/L (98-107); Estimated CRCL calculation 103 ml/min; Estimated Glomerular Filt Rate > 60; Glucose 248 mg/dL (65-110); Potassium 4.5 mmol/L (3.4-5.0); Sodium 131 mmol/L (137-145)
[2021-12-11 12:12] LABS: Glucose Point of Care 280 mg/dl (65-105)
--- NOTE | 2021-12-11 14:58 | P.PNIM_ITS ---
Progress Note: A&P Assessment and Plan (1) Cellulitis of leg, right: Code(s): L03.115 - Cellulitis of right lower limb Status: Acute Assessment and Plan: patient with right leg presented worsened edema edema. * Cellulitis appears resolved on encounter today * Right leg wound culture growth of Staphylococcus, susceptibility results pending. also with of additional organisms of questionable significance that do not warrant identification or susceptibility. * Will continue with IV cefepime and vancomycin while awaiting final susceptibility results * Patient with very mild leukocytosis that is improved presentation. Remains afebrile. * Appreciate wound care consultation * Supportive care (2) Sepsis: Code(s): A41.9 - Sepsis, unspecified organism Status: Acute Assessment and Plan: patient septic on presentation with leukocytosis, fever, tachypnea, tachycardia * no lactic acidosis. * Source of infection presumably right leg wound * sepsis has resolved. Patient remains afebrile, leukocytosis resolving. No tachypnea or tachycardia * preliminary blood cultures are negative to date * patient has been adequately rehydrated and is tolerating p.o. intake (3) Chronic kidney disease, stage 3: Code(s): N18.30 - Chronic kidney disease, stage 3 unspecified Status: Acute Assessment and Plan: renal function is stable. monitor labs and avoid nephrotoxic agents (4) Hypertension: Code(s): I10 - Essential (primary) hypertension Status: Acute Assessment and Plan: blood pressures have been low-normal. Patient with episode of asymptomatic hypotension this afternoon with BP 88/60 * Resting comfortably, asymptomatic, in bed. Implement fall precautions. No indication for IV fluid bolus at this time as patient is euvolemic and tolerating PO intake. * Will hold antihypertensives * Monitor BP trends closely. Recheck in 1 hour. * Check orthostatics (5) CHF (congestive heart failure): Qualifiers: Heart failure chronicity: unspecified Heart failure type: unspecified Qualified Code(s): I50.9 - Heart failure, unspecified Code(s): I50.9 - Heart failure, unspecified Status: Acute Assessment and Plan: patient appears euvolemic with exception of chronic lower extremity edema * Echo shows an EF of 65-70% with indeterminate diastolic dysfunction * home furosemide on hold * monitor volume status closely. Monitor intake and output and daily weights * heart healthy diet (6) Acute metabolic encephalopathy: Code(s): G93.41 - Metabolic encephalopathy Status: Acute Assessment and Plan: patient presented with confusion. patient is A&O x2 * head CT with no acute finding, follow-up brain MRI also with no acute findings. Repeat head CT on 12/10 again with no acute findings with evidence of chronic age related findings. * Suspect patient to be at his baseline. May have underlying dementia as it has been reported the mental status waxes and wanes. * TSH is within normal limits. Will check B12, folate, and ammonia for completeness sake (7) Insulin dependent diabetes mellitus: Status: Acute Assessment and Plan: A1c is 11.1. blood sugars elevated today ranging 248-280 * continue NPH 20 units b.i.d. * continue Accu-Cheks, sliding scale insulin, hypoglycemic protocol * monitor glucose trends and adjust insulin regimen as needed * diabetic diet (8) Atrial fibrillation with rapid ventricular response:
--- NOTE | 2021-12-11 14:58 | PM.IMPN ---
Progress Note: A&P Assessment and Plan (1) Cellulitis of leg, right: Code(s): L03.115 - Cellulitis of right lower limb Status: Acute Assessment and Plan: patient with right leg presented worsened edema edema. Cellulitis appears resolved on encounter today Right leg wound culture growth of Staphylococcus, susceptibility results pending. also with of additional organisms of questionable significance that do not warrant identification or susceptibility. Will continue with IV cefepime and vancomycin while awaiting final susceptibility results Patient with very mild leukocytosis that is improved presentation. Remains afebrile. Appreciate wound care consultation Supportive care (2) Sepsis: Code(s): A41.9 - Sepsis, unspecified organism Status: Acute Assessment and Plan: patient septic on presentation with leukocytosis, fever, tachypnea, tachycardia no lactic acidosis. Source of infection presumably right leg wound sepsis has resolved. Patient remains afebrile, leukocytosis resolving. No tachypnea or tachycardia preliminary blood cultures are negative to date patient has been adequately rehydrated and is tolerating p.o. intake (3) Chronic kidney disease, stage 3: Code(s): N18.30 - Chronic kidney disease, stage 3 unspecified Status: Acute Assessment and Plan: renal function is stable. monitor labs and avoid nephrotoxic agents (4) Hypertension: Code(s): I10 - Essential (primary) hypertension Status: Acute Assessment and Plan: blood pressures have been low-normal. Patient with episode of asymptomatic hypotension this afternoon with BP 88/60 Resting comfortably, asymptomatic, in bed. Implement fall precautions. No indication for IV fluid bolus at this time as patient is euvolemic and tolerating PO intake. Will hold antihypertensives Monitor BP trends closely. Recheck in 1 hour. Check orthostatics (5) CHF (congestive heart failure): Qualifiers: Heart failure chronicity: unspecified Heart failure type: unspecified Qualified Code(s): I50.9 - Heart failure, unspecified Code(s): I50.9 - Heart failure, unspecified Status: Acute Assessment and Plan: patient appears euvolemic with exception of chronic lower extremity edema Echo shows an EF of 65-70% with indeterminate diastolic dysfunction home furosemide on hold monitor volume status closely. Monitor intake and output and daily weights heart healthy diet (6) Acute metabolic encephalopathy: Code(s): G93.41 - Metabolic encephalopathy Status: Acute Assessment and Plan: patient presented with confusion. patient is A&O x2 head CT with no acute finding, follow-up brain MRI also with no acute findings. Repeat head CT on 12/10 again with no acute findings with evidence of chronic age related findings. Suspect patient to be at his baseline. May have underlying dementia as it has been reported the mental status waxes and wanes. TSH is within normal limits. Will check B12, folate, and ammonia for completeness sake (7) Insulin dependent diabetes mellitus: Status: Acute Assessment and Plan: A1c is 11.1. blood sugars elevated today ranging 248-280 continue NPH 20 units b.i.d. continue Accu-Cheks, sliding scale insulin, hypoglycemic protocol monitor glucose trends and adjust insulin regimen as needed diabetic diet (8) Atrial fibrillation with rapid ventricular response: Code(s): I48.91 - Unspecified atrial fibrillation Status: Acute Assessment and Plan: Patient in AFib with rapid ventricular response upon presentation rate is controlled at this time patient is non on chronic anticoagulation for unclear reasons. At last hospitalization in January 2021 patient was on Eliquis but this has subsequently been discontinued, unclear when. Will attempt to determine the pa
[2021-12-11 17:07] LABS: Glucose Point of Care 245 mg/dl (65-105)
[2021-12-11] MEDS: PRAVASTATIN SODIUM 20 MG TABLET 40 MG PO (21:26)
[2021-12-11 21:57] LABS: Glucose Point of Care 193 mg/dl (65-105)
[2021-12-11] MEDS: HYDROcodone/acetaminophen (*CRX) 7.5-325 MG TABLET 1 TAB PO (22:22)
[2021-12-12] VITALS (18 sets, daily range): BP systolic 111–138; BP diastolic 68–79; PULSE 65–104; RESP 16–22; TEMP 36.2–37.1; O2SAT 94–100; BMI 10.0
[2021-12-12] MEDS: LEVOTHYROXINE SODIUM 100 MCG TABLET PO (05:45)
[2021-12-12 06:04] LABS: Hematocrit 40.4 % (42.0-52.0); Hemoglobin 12.5 g/dL (14.0-18.0); Mean Corpuscular HGB Conc 30.9 g/dl (32-36); Mean Corpuscular Hemoglobin 27.3 pg (26-34); Mean Corpuscular Volume 88.2 fl (80-100); Mean Platelet Volume 10.4 fl (7.4-10.4); Platelet Count Result 256 k/mm3 (150-375); Red Blood Count 4.58 M/mm3 (4.6-6.20); White Blood Count 9.1 K/mm3 (4.5-10.0)
[2021-12-12 06:13] LABS: Ammonia < 9 umol/L (9-30)
[2021-12-12 06:27] LABS: Alanine Aminotransferase 12 U/L (6-50); Albumin Level 3.3 g/dL (3.5-5.1); Alkaline Phosphatase 77 U/L (38-126); Anion Gap 7 mmol/L (8-16); Aspartate Amino Transferase 18 U/L (17-59); Bilirubin,Total 0.7 mg/dL (0.2-1.3); Blood Urea Nitrogen 23 mg/dL (9-20); Carbon Dioxide 27 mmol/L (22-30); Chloride 99 mmol/L (98-107); Estimated CRCL calculation 94 ml/min; Estimated Glomerular Filt Rate > 60; Glucose 191 mg/dL (65-110); Potassium 4.3 mmol/L (3.4-5.0); Sodium 133 mmol/L (137-145)
[2021-12-12 07:23] LABS: Folic Acid 15.3 ng/mL (2.76->20)
[2021-12-12] MEDS: carvediloL 25 MG TABLET PO ×2 (08:41→20:37)
[2021-12-12] MEDS: DOCUSATE SODIUM 100 MG CAPSULE PO ×2 (08:41→20:37)
[2021-12-12] MEDS: ASPIRIN 81 MG ENTERIC TABLET PO (08:41)
[2021-12-12] MEDS: GABAPENTIN 300 MG CAPSULE PO ×4 (08:41→20:37)
[2021-12-12] MEDS: ENOXAPARIN 40 MG/0.4 ML SYRINGE SUB-Q (08:42)
[2021-12-12] MEDS: SILVERGEL (ELTA) 45 ML 1 APPLIC TOPICAL (08:43)
[2021-12-12] MEDS: TOLNAFTATE 1% POWDER 45 GM BTL 1 APPLIC TOPICAL ×2 (08:43→20:41)
[2021-12-12] MEDS: PANTOPRAZOLE 40 MG TABLET PO ×2 (08:43→20:37)
[2021-12-12] MEDS: polyethylene glycoL 3350 17 GM POWD.PACK PO (08:43)
[2021-12-12 08:53] LABS: Glucose Point of Care 215 mg/dl (65-105)
[2021-12-12] MEDS: INSULIN HUMAN NPH (*BKC) 100 UNITS/ML 20 UNITS SUB-Q ×2 (08:54→17:20)
[2021-12-12] MEDS: INSULIN ASPART (*BKC) 100 UNITS/ML SUB-Q ×3 (08:55→17:20)
[2021-12-12] MEDS: ACETAMINOPHEN 325 MG TABLET 650 MG PO ×3 (10:41→21:52)
[2021-12-12 12:27] LABS: Glucose Point of Care 274 mg/dl (65-105)
[2021-12-12 13:49] LABS: Vancomycin Trough 15.7 ug/mL (10.0-20.0)
--- NOTE | 2021-12-12 16:39 | P.PNIM_ITS ---
Progress Note: A&P Assessment and Plan (1) Cellulitis of leg, right: Code(s): L03.115 - Cellulitis of right lower limb Status: Acute Assessment and Plan: patient presented with worsened right leg edema. * Cellulitis appears resolved on my initial encounter * Patient does have a wound on the right anterior calf. * Right leg wound culture with growth of MRSA. at this time, will discontinue cefepime and transition IV vancomycin to p.o. doxycycline per ID PharmD recommendations. * Wound culture also with of additional organisms of questionable significance that do not warrant identification or susceptibility. * Patient with very mild leukocytosis that has resolved. Remains afebrile. * Appreciate wound care consultation * Supportive care (2) Sepsis: Code(s): A41.9 - Sepsis, unspecified organism Status: Acute Assessment and Plan: patient septic on presentation with leukocytosis, fever, tachypnea, tachycardia. Source of infection presumably right leg wound * no lactic acidosis. * sepsis has resolved. Patient remains afebrile, leukocytosis resolving. No tachypnea or tachycardia * preliminary blood cultures are negative to date * patient has been adequately rehydrated and is tolerating p.o. intake (3) Chronic kidney disease, stage 3: Code(s): N18.30 - Chronic kidney disease, stage 3 unspecified Status: Acute Assessment and Plan: renal function is stable. monitor labs and avoid nephrotoxic agents (4) Hypertension: Code(s): I10 - Essential (primary) hypertension Status: Acute Assessment and Plan: blood pressures have been low-normal. Patient with episode of asymptomatic hypotension yesterday. last BP 120/72 * PO antihypertensives on hold * Monitor BP trends closely * Check orthostatics (5) CHF (congestive heart failure): Qualifiers: Heart failure chronicity: unspecified Heart failure type: unspecified Qualified Code(s): I50.9 - Heart failure, unspecified Code(s): I50.9 - Heart failure, unspecified Status: Acute Assessment and Plan: patient appears euvolemic with exception of chronic lower extremity edema * Echo shows EF of 65-70% with indeterminate diastolic dysfunction * resume home furosemide * monitor volume status closely. Monitor intake and output and daily weights * heart healthy diet (6) Acute metabolic encephalopathy: Code(s): G93.41 - Metabolic encephalopathy Status: Acute Assessment and Plan: Patient presented with confusion. patient is A&O x2 * head CT with no acute finding, follow-up brain MRI also with no acute findings. Repeat head CT on 12/10 again with no acute findings with evidence of chronic age related findings. * Suspect patient to be at his baseline. May have underlying dementia as it has been reported the mental status waxes and wanes. * TSH, B12, folate, ammonia within normal limits (7) Insulin dependent diabetes mellitus: Status: Acute Assessment and Plan: A1c is 11.1. blood sugars elevated today ranging 190-270 * continue NPH 20 units b.i.d. * continue Accu-Cheks, sliding scale insulin, hypoglycemic protocol * monitor glucose trends and adjust insulin regimen as needed * diabetic diet (8) Atrial fibrillation with rapid ventricular response: Code(s): I48.91 - Unspecified atrial fibrillation Status: Acute Assessment and Plan: Patient in AFib with rapid ventricular response upon presentation * rate is controlle
--- NOTE | 2021-12-12 16:39 | PM.IMPN ---
Progress Note: A&P Assessment and Plan (1) Cellulitis of leg, right: Code(s): L03.115 - Cellulitis of right lower limb Status: Acute Assessment and Plan: patient presented with worsened right leg edema. Cellulitis appears resolved on my initial encounter Patient does have a wound on the right anterior calf. Right leg wound culture with growth of MRSA. at this time, will discontinue cefepime and transition IV vancomycin to p.o. doxycycline per ID PharmD recommendations. Wound culture also with of additional organisms of questionable significance that do not warrant identification or susceptibility. Patient with very mild leukocytosis that has resolved. Remains afebrile. Appreciate wound care consultation Supportive care (2) Sepsis: Code(s): A41.9 - Sepsis, unspecified organism Status: Acute Assessment and Plan: patient septic on presentation with leukocytosis, fever, tachypnea, tachycardia. Source of infection presumably right leg wound no lactic acidosis. sepsis has resolved. Patient remains afebrile, leukocytosis resolving. No tachypnea or tachycardia preliminary blood cultures are negative to date patient has been adequately rehydrated and is tolerating p.o. intake (3) Chronic kidney disease, stage 3: Code(s): N18.30 - Chronic kidney disease, stage 3 unspecified Status: Acute Assessment and Plan: renal function is stable. monitor labs and avoid nephrotoxic agents (4) Hypertension: Code(s): I10 - Essential (primary) hypertension Status: Acute Assessment and Plan: blood pressures have been low-normal. Patient with episode of asymptomatic hypotension yesterday. last BP 120/72 PO antihypertensives on hold Monitor BP trends closely Check orthostatics (5) CHF (congestive heart failure): Qualifiers: Heart failure chronicity: unspecified Heart failure type: unspecified Qualified Code(s): I50.9 - Heart failure, unspecified Code(s): I50.9 - Heart failure, unspecified Status: Acute Assessment and Plan: patient appears euvolemic with exception of chronic lower extremity edema Echo shows EF of 65-70% with indeterminate diastolic dysfunction resume home furosemide monitor volume status closely. Monitor intake and output and daily weights heart healthy diet (6) Acute metabolic encephalopathy: Code(s): G93.41 - Metabolic encephalopathy Status: Acute Assessment and Plan: Patient presented with confusion. patient is A&O x2 head CT with no acute finding, follow-up brain MRI also with no acute findings. Repeat head CT on 12/10 again with no acute findings with evidence of chronic age related findings. Suspect patient to be at his baseline. May have underlying dementia as it has been reported the mental status waxes and wanes. TSH, B12, folate, ammonia within normal limits (7) Insulin dependent diabetes mellitus: Status: Acute Assessment and Plan: A1c is 11.1. blood sugars elevated today ranging 190-270 continue NPH 20 units b.i.d. continue Accu-Cheks, sliding scale insulin, hypoglycemic protocol monitor glucose trends and adjust insulin regimen as needed diabetic diet (8) Atrial fibrillation with rapid ventricular response: Code(s): I48.91 - Unspecified atrial fibrillation Status: Acute Assessment and Plan: Patient in AFib with rapid ventricular response upon presentation rate is controlled at this time patient is not on chronic anticoagulation for unclear reasons. At last hospitalization in January 2021 patient was on Eliquis but this has subsequently been discontinued, unclear when. Continue to monitor on telemetry (9) Chronic venous insufficiency: Code(s): I87.2 - Venous insufficiency (chronic) (peripheral) Status: Acute Assessment and Plan: chronic issue, unchanged. Appr
[2021-12-12 17:27] LABS: Glucose Point of Care 214 mg/dl (65-105)
[2021-12-12] MEDS: PRAVASTATIN SODIUM 20 MG TABLET 40 MG PO (20:37)
[2021-12-12] MEDS: DOXYCYCLINE HYCLATE 100 MG TABLET PO (20:37)
[2021-12-12 20:57] LABS: Glucose Point of Care 176 mg/dl (65-105)
[2021-12-13] VITALS (14 sets, daily range): BP systolic 130–156; BP diastolic 73–85; PULSE 78–99; RESP 18–20; TEMP 36.5–36.7; O2SAT 96–100
[2021-12-13] MEDS: ACETAMINOPHEN 325 MG TABLET 650 MG PO ×2 (04:38→17:22)
[2021-12-13] MEDS: LEVOTHYROXINE SODIUM 100 MCG TABLET PO (04:38)
[2021-12-13 06:51] LABS: Hematocrit 39.9 % (42.0-52.0); Hemoglobin 12.4 g/dL (14.0-18.0); Mean Corpuscular HGB Conc 31.1 g/dl (32-36); Mean Corpuscular Hemoglobin 27.9 pg (26-34); Mean Corpuscular Volume 89.9 fl (80-100); Mean Platelet Volume 10.6 fl (7.4-10.4); Platelet Count Result 296 k/mm3 (150-375); Red Blood Count 4.44 M/mm3 (4.6-6.20)
[2021-12-13 07:00] LABS: Anion Gap 8 mmol/L (8-16); Blood Urea Nitrogen 21 mg/dL (9-20); Calcium 10.3 mg/dL (8.4-10.2); Carbon Dioxide 28 mmol/L (22-30); Chloride 97 mmol/L (98-107); Estimated CRCL calculation 93 ml/min; Estimated Glomerular Filt Rate > 60; Glucose 120 mg/dL (65-110); Potassium 4.2 mmol/L (3.4-5.0); Sodium 133 mmol/L (137-145)
[2021-12-13] MEDS: GABAPENTIN 300 MG CAPSULE PO ×4 (08:47→20:05)
[2021-12-13] MEDS: ASPIRIN 81 MG ENTERIC TABLET PO (08:47)
[2021-12-13] MEDS: DOXYCYCLINE HYCLATE 100 MG TABLET PO ×2 (08:47→20:04)
[2021-12-13] MEDS: carvediloL 25 MG TABLET PO ×2 (08:47→20:04)
[2021-12-13 08:48] LABS: Glucose Point of Care 137 mg/dl (65-105)
[2021-12-13 08:48] LABS: Glucose Point of Care 133 mg/dl (65-105)
[2021-12-13] MEDS: FUROSEMIDE 40 MG TABLET PO (08:48)
[2021-12-13] MEDS: polyethylene glycoL 3350 17 GM POWD.PACK PO (08:48)
[2021-12-13] MEDS: ENOXAPARIN 40 MG/0.4 ML SYRINGE SUB-Q (08:48)
[2021-12-13] MEDS: DOCUSATE SODIUM 100 MG CAPSULE PO ×2 (08:48→20:05)
[2021-12-13] MEDS: PANTOPRAZOLE 40 MG TABLET PO ×2 (08:48→20:04)
[2021-12-13] MEDS: INSULIN HUMAN NPH (*BKC) 100 UNITS/ML 20 UNITS SUB-Q ×2 (08:49→17:20)
--- NOTE | 2021-12-13 09:00 | P.PNIM_ITS ---
Progress Note: A&P Assessment and Plan (1) Cellulitis of leg, right: Code(s): L03.115 - Cellulitis of right lower limb Status: Acute Assessment and Plan: * patient presented with worsened right leg edema. * Cellulitis appears resolved on my initial encounter * Patient does have a wound on the right anterior calf. * Right leg wound culture with growth of MRSA. * discontinued cefepime and IV vancomycin * Changed to PO doxycycline per ID PharmD recommendations. * Wound culture also with of additional organisms of questionable significance that do not warrant identification or susceptibility. * Patient with very mild leukocytosis that has resolved. * Remains afebrile. * Appreciate wound care consultation * Supportive care (2) Sepsis: Code(s): A41.9 - Sepsis, unspecified organism Status: Acute Assessment and Plan: * Septic on presentation with leukocytosis, fever, tachypnea, tachycardia. Source of infection presumably right leg wound * no lactic acidosis. * sepsis has resolved. Patient remains afebrile, leukocytosis resolving. No tachypnea or tachycardia * preliminary blood cultures are negative to date * adequately rehydrated and is tolerating p.o. intake (3) Chronic kidney disease, stage 3: Code(s): N18.30 - Chronic kidney disease, stage 3 unspecified Status: Acute Assessment and Plan: * renal function is stable, currently 21/.00 * monitor labs and avoid nephrotoxic agents * Remains stable (4) Hypertension: Code(s): I10 - Essential (primary) hypertension Status: Acute Assessment and Plan: * blood pressures have been low-normal. * Patient with episode of asymptomatic hypotension 12/12/21. * last BP 138/73, stable * PO antihypertensives on hold * Monitor BP trends closely * Orthostatics appear to be lower with standing (5) CHF (congestive heart failure): Qualifiers: Heart failure chronicity: unspecified Heart failure type: unspecified Qualified Code(s): I50.9 - Heart failure, unspecified Code(s): I50.9 - Heart failure, unspecified Status: Acute Assessment and Plan: * Patient appears euvolemic with exception of chronic lower extremity edema * Echo shows EF of 65-70% with indeterminate diastolic dysfunction * resume home furosemide * monitor volume status closely. Monitor intake and output and daily weights * heart healthy diet (6) Acute metabolic encephalopathy: Code(s): G93.41 - Metabolic encephalopathy Status: Acute Assessment and Plan: * Patient presented with confusion. patient is A&O x2 * head CT with no acute finding, follow-up brain MRI also with no acute findings. Repeat head CT on 12/10 again with no acute findings with evidence of chronic age related findings. * Suspect patient to be at his baseline. May have underlying dementia as it has been reported the mental status waxes and wanes. * TSH, B12, folate, ammonia within normal limits (7) Insulin dependent diabetes mellitus: Status: Acute Assessment and Plan: * A1c is 11.1. blood sugars elevated today ranging 190-270 * continue NPH 20 units b.i.d. * continue Accu-Cheks, sliding scale insulin, hypoglycemic protocol * monitor glucose trends and adjust insulin regimen as needed * diabetic diet (8) Atrial fibrillat
--- NOTE | 2021-12-13 09:00 | PM.IMPN ---
Progress Note: A&P Assessment and Plan (1) Cellulitis of leg, right: Code(s): L03.115 - Cellulitis of right lower limb Status: Acute Assessment and Plan: patient presented with worsened right leg edema. Cellulitis appears resolved on my initial encounter Patient does have a wound on the right anterior calf. Right leg wound culture with growth of MRSA. discontinued cefepime and IV vancomycin Changed to PO doxycycline per ID PharmD recommendations. Wound culture also with of additional organisms of questionable significance that do not warrant identification or susceptibility. Patient with very mild leukocytosis that has resolved. Remains afebrile. Appreciate wound care consultation Supportive care (2) Sepsis: Code(s): A41.9 - Sepsis, unspecified organism Status: Acute Assessment and Plan: Septic on presentation with leukocytosis, fever, tachypnea, tachycardia. Source of infection presumably right leg wound no lactic acidosis. sepsis has resolved. Patient remains afebrile, leukocytosis resolving. No tachypnea or tachycardia preliminary blood cultures are negative to date adequately rehydrated and is tolerating p.o. intake (3) Chronic kidney disease, stage 3: Code(s): N18.30 - Chronic kidney disease, stage 3 unspecified Status: Acute Assessment and Plan: renal function is stable, currently 21/.00 monitor labs and avoid nephrotoxic agents Remains stable (4) Hypertension: Code(s): I10 - Essential (primary) hypertension Status: Acute Assessment and Plan: blood pressures have been low-normal. Patient with episode of asymptomatic hypotension 12/12/21. last BP 138/73, stable PO antihypertensives on hold Monitor BP trends closely Orthostatics appear to be lower with standing (5) CHF (congestive heart failure): Qualifiers: Heart failure chronicity: unspecified Heart failure type: unspecified Qualified Code(s): I50.9 - Heart failure, unspecified Code(s): I50.9 - Heart failure, unspecified Status: Acute Assessment and Plan: Patient appears euvolemic with exception of chronic lower extremity edema Echo shows EF of 65-70% with indeterminate diastolic dysfunction resume home furosemide monitor volume status closely. Monitor intake and output and daily weights heart healthy diet (6) Acute metabolic encephalopathy: Code(s): G93.41 - Metabolic encephalopathy Status: Acute Assessment and Plan: Patient presented with confusion. patient is A&O x2 head CT with no acute finding, follow-up brain MRI also with no acute findings. Repeat head CT on 12/10 again with no acute findings with evidence of chronic age related findings. Suspect patient to be at his baseline. May have underlying dementia as it has been reported the mental status waxes and wanes. TSH, B12, folate, ammonia within normal limits (7) Insulin dependent diabetes mellitus: Status: Acute Assessment and Plan: A1c is 11.1. blood sugars elevated today ranging 190-270 continue NPH 20 units b.i.d. continue Accu-Cheks, sliding scale insulin, hypoglycemic protocol monitor glucose trends and adjust insulin regimen as needed diabetic diet (8) Atrial fibrillation with rapid ventricular response: Code(s): I48.91 - Unspecified atrial fibrillation Status: Acute Assessment and Plan: Current AFib with rapid ventricular response upon presentation rate is controlled at this time patient is not on chronic anticoagulation for unclear reasons. At last hospitalization in January 2021 patient was on Eliquis but this has subsequently been discontinued, unclear when. Continue to monitor on telemetry (9) Chronic venous insufficiency: Code(s): I87.2 - Venous insufficien
[2021-12-13] MEDS: SILVERGEL (ELTA) 45 ML 1 APPLIC TOPICAL (09:19)
[2021-12-13] MEDS: TOLNAFTATE 1% POWDER 45 GM BTL 1 APPLIC TOPICAL ×2 (09:19→20:05)
[2021-12-13] MEDS: INSULIN ASPART (*BKC) 100 UNITS/ML SUB-Q (12:04)
[2021-12-13 12:05] LABS: Glucose Point of Care 210 mg/dl (65-105)
[2021-12-13 17:21] LABS: Glucose Point of Care 198 mg/dl (65-105)
[2021-12-13] MEDS: PRAVASTATIN SODIUM 20 MG TABLET 40 MG PO (20:05)
[2021-12-13 21:18] LABS: Glucose Point of Care 214 mg/dl (65-105)
[2021-12-14] VITALS (10 sets, daily range): BP systolic 116–137; BP diastolic 66–81; PULSE 90–114; RESP 16–18; TEMP 36.2–36.7; O2SAT 94–100
[2021-12-14 05:30] LABS: Basophils Absolute Auto 0.1 K/mm3 (0.0-0.1); Basophils Percent Auto 0.9 % (0.2-1.2); Eosinophils Absolute Auto 0.4 K/mm3 (0-0.3); Eosinophils Percent Auto 5.3 % (0-4.4); Hematocrit 40.7 % (42.0-52.0); Hemoglobin 12.9 g/dL (14.0-18.0); Immature Granulocyte Absolute 0.02 K/mm3 (0.00-0.031); Immature Granulocyte Percent A 0.3 % (0-0.5); Lymphocytes Absolute Auto 1.22 K/mm3 (0.9-3.2); Lymphocytes Percent Auto 16.2 % (18.3-44.2); Mean Corpuscular HGB Conc 31.7 g/dl (32-36); Mean Corpuscular Volume 88.5 fl (80-100); Mean Platelet Volume 10.1 fl (7.4-10.4); Monocytes Absolute Auto 0.9 K/mm3 (0.1-0.6); Monocytes Percent Auto 11.7 % (2.6-8.5); Neutrophils Percent Auto 65.6 % (45.5-73.1); Platelet Count Result 329 k/mm3 (150-375); Red Cell Distribution Width 13.1 % (11.5-14.5); White Blood Count 7.5 K/mm3 (4.5-10.0)
[2021-12-14 05:47] LABS: Alanine Aminotransferase 13 U/L (6-50); Albumin Level 3.4 g/dL (3.5-5.1); Alkaline Phosphatase 88 U/L (38-126); Anion Gap 9 mmol/L (8-16); Aspartate Amino Transferase 25 U/L (17-59); Bilirubin,Total 0.6 mg/dL (0.2-1.3); Blood Urea Nitrogen 22 mg/dL (9-20); Calcium 10.4 mg/dL (8.4-10.2); Carbon Dioxide 29 mmol/L (22-30); Chloride 95 mmol/L (98-107); Estimated CRCL calculation 102 ml/min; Estimated Glomerular Filt Rate > 60; Glucose 157 mg/dL (65-110); Magnesium 1.7 mg/dL (1.6-2.3); Potassium 4.1 mmol/L (3.4-5.0); Sodium 133 mmol/L (137-145)
[2021-12-14 08:38] LABS: Glucose Point of Care 154 mg/dl (65-105)
[2021-12-14 08:38] LABS: Glucose Point of Care 157 mg/dl (65-105)
[2021-12-14] MEDS: INSULIN HUMAN NPH (*BKC) 100 UNITS/ML 20 UNITS SUB-Q ×2 (09:00→17:20)
[2021-12-14] MEDS: LEVOTHYROXINE SODIUM 100 MCG TABLET PO (09:00)
[2021-12-14] MEDS: carvediloL 25 MG TABLET PO ×2 (09:01→20:23)
[2021-12-14] MEDS: polyethylene glycoL 3350 17 GM POWD.PACK PO (09:01)
[2021-12-14] MEDS: FUROSEMIDE 40 MG TABLET PO (09:03)
[2021-12-14] MEDS: DOCUSATE SODIUM 100 MG CAPSULE PO ×2 (09:03→20:24)
[2021-12-14] MEDS: ASPIRIN 81 MG ENTERIC TABLET PO (09:03)
[2021-12-14] MEDS: DOXYCYCLINE HYCLATE 100 MG TABLET PO ×2 (09:03→20:24)
[2021-12-14] MEDS: GABAPENTIN 300 MG CAPSULE PO ×4 (09:03→20:24)
[2021-12-14] MEDS: ENOXAPARIN 40 MG/0.4 ML SYRINGE SUB-Q (09:03)
[2021-12-14] MEDS: SILVERGEL (ELTA) 45 ML 1 APPLIC TOPICAL (09:04)
[2021-12-14] MEDS: PANTOPRAZOLE 40 MG TABLET PO ×2 (09:04→20:24)
[2021-12-14] MEDS: TOLNAFTATE 1% POWDER 45 GM BTL 1 APPLIC TOPICAL ×2 (09:05→20:24)
--- NOTE | 2021-12-14 10:45 | P.PNIM_ITS ---
Progress Note: A&P Assessment and Plan (1) Cellulitis of leg, right: Code(s): L03.115 - Cellulitis of right lower limb Status: Acute Assessment and Plan: * patient presented with worsened right leg edema. * Cellulitis appears resolved, appears to be chronic reddening, probably venous insufficiency * Patient does have a wound on the right anterior calf. * Right leg wound culture with growth of MRSA. * Continue PO doxycycline per ID PharmD recommendations * leukocytosis resolved. * Remains afebrile. * Appreciate wound care consultation * Supportive care (2) Sepsis: Code(s): A41.9 - Sepsis, unspecified organism Status: Acute Assessment and Plan: * Septic on presentation with leukocytosis, fever, tachypnea, tachycardia. Source of infection presumably right leg wound * no lactic acidosis. * sepsis resolved. * Patient remains afebrile, leukocytosis resolved. * No tachypnea or tachycardia * preliminary blood cultures are negative to date * adequately rehydrated and is tolerating p.o. intake (3) Chronic kidney disease, stage 3: Code(s): N18.30 - Chronic kidney disease, stage 3 unspecified Status: Acute Assessment and Plan: * renal function is stable, currently 22/0.90 * monitor labs and avoid nephrotoxic agents * Remains stable (4) Hypertension: Code(s): I10 - Essential (primary) hypertension Status: Acute Assessment and Plan: * blood pressures have been low-normal. * Patient with episode of asymptomatic hypotension 12/12/21. * last BP 124/67, remains stable * PO antihypertensives on hold * Monitor BP trends closely * Orthostatics appear to be lower with standing (5) CHF (congestive heart failure): Qualifiers: Heart failure chronicity: unspecified Heart failure type: unspecified Qualified Code(s): I50.9 - Heart failure, unspecified Code(s): I50.9 - Heart failure, unspecified Status: Acute Assessment and Plan: * Patient appears euvolemic with exception of chronic lower extremity edema * Echo shows EF of 65-70% with indeterminate diastolic dysfunction * resume home furosemide * monitor volume status closely. Monitor intake and output and daily weights * heart healthy diet (6) Acute metabolic encephalopathy: Code(s): G93.41 - Metabolic encephalopathy Status: Acute Assessment and Plan: * Patient presented with confusion. patient is A&O x2 * head CT with no acute finding, follow-up brain MRI also with no acute findings. Repeat head CT on 12/10 again with no acute findings with evidence of chronic age related findings. * Suspect patient to be at his baseline. May have underlying dementia as it has been reported the mental status waxes and wanes. * TSH, B12, folate, ammonia within normal limits (7) Insulin dependent diabetes mellitus: Status: Acute Assessment and Plan: * A1c is 11.1. blood sugars elevated today ranging 190-270 * Current glucose is 157 * continue NPH 20 units b.i.d. * continue Accu-Cheks, sliding scale insulin, hypoglycemic protocol * monitor glucose trends and adjust insulin regimen as needed * diabetic diet (8) Atrial fibrillation with rapid ventricular response: Code(s): I48.91 - Unspecified atrial fibrillation Status: Acute
--- NOTE | 2021-12-14 10:45 | PM.IMPN ---
Progress Note: A&P Assessment and Plan (1) Cellulitis of leg, right: Code(s): L03.115 - Cellulitis of right lower limb Status: Acute Assessment and Plan: patient presented with worsened right leg edema. Cellulitis appears resolved, appears to be chronic reddening, probably venous insufficiency Patient does have a wound on the right anterior calf. Right leg wound culture with growth of MRSA. Continue PO doxycycline per ID PharmD recommendations leukocytosis resolved. Remains afebrile. Appreciate wound care consultation Supportive care (2) Sepsis: Code(s): A41.9 - Sepsis, unspecified organism Status: Acute Assessment and Plan: Septic on presentation with leukocytosis, fever, tachypnea, tachycardia. Source of infection presumably right leg wound no lactic acidosis. sepsis resolved. Patient remains afebrile, leukocytosis resolved. No tachypnea or tachycardia preliminary blood cultures are negative to date adequately rehydrated and is tolerating p.o. intake (3) Chronic kidney disease, stage 3: Code(s): N18.30 - Chronic kidney disease, stage 3 unspecified Status: Acute Assessment and Plan: renal function is stable, currently 22/0.90 monitor labs and avoid nephrotoxic agents Remains stable (4) Hypertension: Code(s): I10 - Essential (primary) hypertension Status: Acute Assessment and Plan: blood pressures have been low-normal. Patient with episode of asymptomatic hypotension 12/12/21. last BP 124/67, remains stable PO antihypertensives on hold Monitor BP trends closely Orthostatics appear to be lower with standing (5) CHF (congestive heart failure): Qualifiers: Heart failure chronicity: unspecified Heart failure type: unspecified Qualified Code(s): I50.9 - Heart failure, unspecified Code(s): I50.9 - Heart failure, unspecified Status: Acute Assessment and Plan: Patient appears euvolemic with exception of chronic lower extremity edema Echo shows EF of 65-70% with indeterminate diastolic dysfunction resume home furosemide monitor volume status closely. Monitor intake and output and daily weights heart healthy diet (6) Acute metabolic encephalopathy: Code(s): G93.41 - Metabolic encephalopathy Status: Acute Assessment and Plan: Patient presented with confusion. patient is A&O x2 head CT with no acute finding, follow-up brain MRI also with no acute findings. Repeat head CT on 12/10 again with no acute findings with evidence of chronic age related findings. Suspect patient to be at his baseline. May have underlying dementia as it has been reported the mental status waxes and wanes. TSH, B12, folate, ammonia within normal limits (7) Insulin dependent diabetes mellitus: Status: Acute Assessment and Plan: A1c is 11.1. blood sugars elevated today ranging 190-270 Current glucose is 157 continue NPH 20 units b.i.d. continue Accu-Cheks, sliding scale insulin, hypoglycemic protocol monitor glucose trends and adjust insulin regimen as needed diabetic diet (8) Atrial fibrillation with rapid ventricular response: Code(s): I48.91 - Unspecified atrial fibrillation Status: Acute Assessment and Plan: Current AFib with rapid ventricular response upon presentation rate is controlled at this time patient is not on chronic anticoagulation for unclear reasons. At last hospitalization in January 2021 patient was on Eliquis but this has subsequently been discontinued, unclear when. Continue to monitor on telemetry (9) Chronic venous insufficiency: Code(s): I87.2 - Venous insufficiency (chronic) (peripheral) Status: Acute Assessment and Plan: chronic issue, unchanged. Appreciate wound care
[2021-12-14 12:03] LABS: Glucose Point of Care 238 mg/dl (65-105)
[2021-12-14] MEDS: INSULIN ASPART (*BKC) 100 UNITS/ML SUB-Q (12:11)
[2021-12-14] MEDS: HYDROcodone/acetaminophen (*CRX) 5-325 MG TABLET 1 TAB PO ×2 (13:50→23:27)
[2021-12-14 17:15] LABS: Glucose Point of Care 163 mg/dl (65-105)
[2021-12-14] MEDS: PRAVASTATIN SODIUM 20 MG TABLET 40 MG PO (20:24)
[2021-12-14 20:53] LABS: Glucose Point of Care 240 mg/dl (65-105)
[2021-12-15] VITALS (10 sets, daily range): BP systolic 117–137; BP diastolic 67–78; PULSE 75–95; RESP 14–20; TEMP 36.5–37.1; O2SAT 95–100
[2021-12-15] MEDS: LEVOTHYROXINE SODIUM 100 MCG TABLET PO (05:23)
[2021-12-15 08:42] LABS: Glucose Point of Care 251 mg/dl (65-105)
[2021-12-15] MEDS: DOCUSATE SODIUM 100 MG CAPSULE PO ×2 (09:21→20:49)
[2021-12-15] MEDS: polyethylene glycoL 3350 17 GM POWD.PACK PO (09:21)
[2021-12-15] MEDS: ASPIRIN 81 MG ENTERIC TABLET PO (09:21)
[2021-12-15] MEDS: carvediloL 25 MG TABLET PO ×2 (09:21→20:48)
[2021-12-15] MEDS: INSULIN ASPART (*BKC) 100 UNITS/ML SUB-Q ×3 (09:23→17:34)
[2021-12-15] MEDS: ENOXAPARIN 40 MG/0.4 ML SYRINGE SUB-Q (09:24)
[2021-12-15] MEDS: INSULIN HUMAN NPH (*BKC) 100 UNITS/ML 20 UNITS SUB-Q ×2 (09:24→17:36)
[2021-12-15] MEDS: FUROSEMIDE 40 MG TABLET PO (09:24)
[2021-12-15] MEDS: DOXYCYCLINE HYCLATE 100 MG TABLET PO ×2 (09:24→20:48)
[2021-12-15] MEDS: GABAPENTIN 300 MG CAPSULE PO ×4 (09:24→20:48)
[2021-12-15] MEDS: PANTOPRAZOLE 40 MG TABLET PO ×2 (09:25→20:48)
[2021-12-15] MEDS: TOLNAFTATE 1% POWDER 45 GM BTL 1 APPLIC TOPICAL ×2 (09:26→20:47)
[2021-12-15] MEDS: SILVERGEL (ELTA) 45 ML 1 APPLIC TOPICAL (09:26)
[2021-12-15 11:26] LABS: Basophils Absolute Auto 0.1 K/mm3 (0.0-0.1); Eosinophils Absolute Auto 0.4 K/mm3 (0-0.3); Eosinophils Percent Auto 5.6 % (0-4.4); Hematocrit 42.5 % (42.0-52.0); Hemoglobin 13.1 g/dL (14.0-18.0); Immature Granulocyte Absolute 0.03 K/mm3 (0.00-0.031); Immature Granulocyte Percent A 0.5 % (0-0.5); Lymphocytes Absolute Auto 0.96 K/mm3 (0.9-3.2); Lymphocytes Percent Auto 15.3 % (18.3-44.2); Mean Corpuscular HGB Conc 30.8 g/dl (32-36); Mean Corpuscular Hemoglobin 27.8 pg (26-34); Mean Platelet Volume 9.4 fl (7.4-10.4); Monocytes Absolute Auto 0.6 K/mm3 (0.1-0.6); Monocytes Percent Auto 9.7 % (2.6-8.5); Neutrophils Absolute Auto 4.3 K/mm3 (1.3-6.7); Neutrophils Percent Auto 67.9 % (45.5-73.1); Platelet Count Result 338 k/mm3 (150-375); Red Blood Count 4.72 M/mm3 (4.6-6.20); Red Cell Distribution Width 12.9 % (11.5-14.5); White Blood Count 6.3 K/mm3 (4.5-10.0)
[2021-12-15 11:41] LABS: Alanine Aminotransferase 14 U/L (6-50); Albumin Level 3.4 g/dL (3.5-5.1); Alkaline Phosphatase 89 U/L (38-126); Anion Gap 8 mmol/L (8-16); Aspartate Amino Transferase 22 U/L (17-59); Bilirubin,Total 0.5 mg/dL (0.2-1.3); Blood Urea Nitrogen 26 mg/dL (9-20); Calcium 10.3 mg/dL (8.4-10.2); Carbon Dioxide 28 mmol/L (22-30); Chloride 96 mmol/L (98-107); Estimated CRCL calculation 101 ml/min; Estimated Glomerular Filt Rate > 60; Glucose 247 mg/dL (65-110); Magnesium 1.7 mg/dL (1.6-2.3); Potassium 4.2 mmol/L (3.4-5.0); Sodium 132 mmol/L (137-145)
[2021-12-15 11:59] LABS: Glucose Point of Care 233 mg/dl (65-105)
[2021-12-15] MEDS: HYDROcodone/acetaminophen (*CRX) 5-325 MG TABLET 1 TAB PO (12:08)
[2021-12-15 17:26] LABS: Glucose Point of Care 218 mg/dl (65-105)
[2021-12-15 20:16] LABS: Glucose Point of Care 188 mg/dl (65-105)
[2021-12-15] MEDS: PRAVASTATIN SODIUM 20 MG TABLET 40 MG PO (20:47)
[2021-12-16 00:33] VITALS: BP 118/73; PULSE 92; RESP 16; TEMP 36.4; O2SAT 93
[2021-12-16] MEDS: ACETAMINOPHEN 325 MG TABLET 650 MG PO (02:50)
[2021-12-16] MEDS: LEVOTHYROXINE SODIUM 100 MCG TABLET PO (05:18)
[2021-12-16 06:37] VITALS: BP 124/86; PULSE 93; RESP 16; TEMP 37.1; O2SAT 100
[2021-12-16 08:00] VITALS: O2SAT 97
[2021-12-16 08:25] LABS: Glucose Point of Care 188 mg/dl (65-105)
[2021-12-16] MEDS: DOXYCYCLINE HYCLATE 100 MG TABLET PO (08:26)
[2021-12-16] MEDS: ASPIRIN 81 MG ENTERIC TABLET PO (08:26)
[2021-12-16] MEDS: FUROSEMIDE 40 MG TABLET PO (08:26)
[2021-12-16] MEDS: DOCUSATE SODIUM 100 MG CAPSULE PO (08:26)
[2021-12-16 08:27] VITALS: PULSE 73
[2021-12-16] MEDS: INSULIN HUMAN NPH (*BKC) 100 UNITS/ML 20 UNITS SUB-Q (08:27)
[2021-12-16] MEDS: ENOXAPARIN 40 MG/0.4 ML SYRINGE SUB-Q (08:27)
[2021-12-16] MEDS: polyethylene glycoL 3350 17 GM POWD.PACK PO (08:27)
[2021-12-16] MEDS: carvediloL 25 MG TABLET PO (08:27)
[2021-12-16] MEDS: PANTOPRAZOLE 40 MG TABLET PO (08:27)
[2021-12-16] MEDS: GABAPENTIN 300 MG CAPSULE PO ×2 (08:27→12:11)
[2021-12-16] MEDS: SILVERGEL (ELTA) 45 ML 1 APPLIC TOPICAL (08:28)
[2021-12-16] MEDS: TOLNAFTATE 1% POWDER 45 GM BTL 1 APPLIC TOPICAL (08:28)
[2021-12-16 10:00] VITALS: BP 128/64; PULSE 95; RESP 14; TEMP 36.5; O2SAT 96
--- NOTE | 2021-12-16 11:30 | P.DS_ITS ---
DS: Admitting Diagnosis Discharge Date 12/16/21 1130 Admitting Diagnosis Cellulitis, sepsis DS: Discharge Diagnosis Discharge Diagnosis (1) Cellulitis of leg, right: Code(s): L03.115 - Cellulitis of right lower limb Status: Acute Assessment and Plan: * patient presented with worsened right leg edema. * Cellulitis appears resolved, appears to be chronic reddening, probably venous insufficiency * Patient does have a wound on the right anterior calf. * Right leg wound culture with growth of MRSA. * Continue PO doxycycline per ID PharmD recommendations * leukocytosis resolved. * Remains afebrile. * Appreciate wound care consultation * Supportive care (2) Sepsis: Code(s): A41.9 - Sepsis, unspecified organism Status: Acute Assessment and Plan: * Septic on presentation with leukocytosis, fever, tachypnea, tachycardia. Source of infection presumably right leg wound * no lactic acidosis. * sepsis resolved. * Patient remains afebrile, leukocytosis resolved. * No tachypnea or tachycardia * preliminary blood cultures are negative to date * adequately rehydrated and is tolerating p.o. intake (3) Chronic kidney disease, stage 3: Code(s): N18.30 - Chronic kidney disease, stage 3 unspecified Status: Acute Assessment and Plan: * renal function is stable, Labs 26/0.90 * monitor labs and avoid nephrotoxic agents * Remains stable (4) Hypertension: Code(s): I10 - Essential (primary) hypertension Status: Acute Assessment and Plan: * blood pressures have been low-normal. * Patient with episode of asymptomatic hypotension 12/12/21. * last BP 117/74, remains stable * PO antihypertensives on hold * Monitor BP trends closely * Orthostatics appear to be lower with standing (5) CHF (congestive heart failure): Qualifiers: Heart failure chronicity: unspecified Heart failure type: unspecified Qualified Code(s): I50.9 - Heart failure, unspecified Code(s): I50.9 - Heart failure, unspecified Status: Acute Assessment and Plan: * Patient appears euvolemic with exception of chronic lower extremity edema * Echo shows EF of 65-70% with indeterminate diastolic dysfunction * resume home furosemide * monitor volume status closely. Monitor intake and output and daily weights * heart healthy diet (6) Acute metabolic encephalopathy: Code(s): G93.41 - Metabolic encephalopathy Status: Acute Assessment and Plan: * Patient presented with confusion. patient is A&O x2 * head CT with no acute finding, follow-up brain MRI also with no acute findings. Repeat head CT on 12/10 again with no acute findings with evidence of chronic age related findings. * Suspect patient to be at his baseline. May have underlying dementia as it has been reported the mental status waxes and wanes. * TSH, B12, folate, ammonia within normal limits * Could alse be from the narcotic use, resumed only with strict parameters, and patient must ask for it (7) Insulin dependent diabetes mellitus: Status: Acute Assessment and Plan: * A1c is 11.1. blood sugars elevated today ranging 150-250 * Current glucose is 247 * continue NPH 20 units b.i.d. * continue Accu-Cheks, sliding scale insulin, hypoglycemic protocol * monitor glucose trends and adjust insu
--- NOTE | 2021-12-16 11:30 | PM.DS ---
DS: Admitting Diagnosis Discharge Date 12/16/21 1130 Admitting Diagnosis Cellulitis, sepsis DS: Discharge Diagnosis Discharge Diagnosis (1) Cellulitis of leg, right: Code(s): L03.115 - Cellulitis of right lower limb Status: Acute Assessment and Plan: patient presented with worsened right leg edema. Cellulitis appears resolved, appears to be chronic reddening, probably venous insufficiency Patient does have a wound on the right anterior calf. Right leg wound culture with growth of MRSA. Continue PO doxycycline per ID PharmD recommendations leukocytosis resolved. Remains afebrile. Appreciate wound care consultation Supportive care (2) Sepsis: Code(s): A41.9 - Sepsis, unspecified organism Status: Acute Assessment and Plan: Septic on presentation with leukocytosis, fever, tachypnea, tachycardia. Source of infection presumably right leg wound no lactic acidosis. sepsis resolved. Patient remains afebrile, leukocytosis resolved. No tachypnea or tachycardia preliminary blood cultures are negative to date adequately rehydrated and is tolerating p.o. intake (3) Chronic kidney disease, stage 3: Code(s): N18.30 - Chronic kidney disease, stage 3 unspecified Status: Acute Assessment and Plan: renal function is stable, Labs 26/0.90 monitor labs and avoid nephrotoxic agents Remains stable (4) Hypertension: Code(s): I10 - Essential (primary) hypertension Status: Acute Assessment and Plan: blood pressures have been low-normal. Patient with episode of asymptomatic hypotension 12/12/21. last BP 117/74, remains stable PO antihypertensives on hold Monitor BP trends closely Orthostatics appear to be lower with standing (5) CHF (congestive heart failure): Qualifiers: Heart failure chronicity: unspecified Heart failure type: unspecified Qualified Code(s): I50.9 - Heart failure, unspecified Code(s): I50.9 - Heart failure, unspecified Status: Acute Assessment and Plan: Patient appears euvolemic with exception of chronic lower extremity edema Echo shows EF of 65-70% with indeterminate diastolic dysfunction resume home furosemide monitor volume status closely. Monitor intake and output and daily weights heart healthy diet (6) Acute metabolic encephalopathy: Code(s): G93.41 - Metabolic encephalopathy Status: Acute Assessment and Plan: Patient presented with confusion. patient is A&O x2 head CT with no acute finding, follow-up brain MRI also with no acute findings. Repeat head CT on 12/10 again with no acute findings with evidence of chronic age related findings. Suspect patient to be at his baseline. May have underlying dementia as it has been reported the mental status waxes and wanes. TSH, B12, folate, ammonia within normal limits Could alse be from the narcotic use, resumed only with strict parameters, and patient must ask for it (7) Insulin dependent diabetes mellitus: Status: Acute Assessment and Plan: A1c is 11.1. blood sugars elevated today ranging 150-250 Current glucose is 247 continue NPH 20 units b.i.d. continue Accu-Cheks, sliding scale insulin, hypoglycemic protocol monitor glucose trends and adjust insulin regimen as needed diabetic diet (8) Atrial fibrillation with rapid ventricular response: Code(s): I48.91 - Unspecified atrial fibrillation Status: Acute Assessment and Plan: Current AFib with rapid ventricular response upon presentation rate is controlled at this time patient is not on chronic anticoagulation for unclear reasons. At last hospitalization in January 2021 patient was on Eliquis but this has subsequently been discontinued, unclear when. Continue to monitor on telemetry (9) Chr
[2021-12-16 12:02] LABS: Glucose Point of Care 294 mg/dl (65-105)
[2021-12-16] MEDS: INSULIN ASPART (*BKC) 100 UNITS/ML SUB-Q (12:08)
[2021-12-16 13:53] LABS: EDCOVIDSCREEN Negative (Negative)
[2021-12-16 14:05] VITALS: BP 127/98; PULSE 101; RESP 14; TEMP 36.6; O2SAT 97
== END 2021-12-16 15:56 | DRG 871 ==
LOC: ANHED 12-08 00:11 → ANH2MED 12-08 00:34
PROVIDERS: Physician Assistant; Admitting Provider Internal Medicine; Emergency Provider Preventive Medicine Aerospace Medicine; Visit Provider Nurse Practitioner
DX: A41.9 Sepsis, unspecified organism (principal); G93.41 Metabolic encephalopathy; I50.33 Acute on chronic diastolic (congestive) heart failure; L03.115 Cellulitis of right lower limb; I13.0 Hypertensive heart and chronic kidney disease with heart failure and stage 1 through stage 4 chronic kidney disease, or unspecified chronic kidney disease; I48.20 Chronic atrial fibrillation, unspecified; L97.919 Non-pressure chronic ulcer of unspecified part of right lower leg with unspecified severity; L97.419 Non-pressure chronic ulcer of right heel and midfoot with unspecified severity; L98.499 Non-pressure chronic ulcer of skin of other sites with unspecified severity; N18.30 Chronic kidney disease, stage 3 unspecified; B95.62 Methicillin resistant Staphylococcus aureus infection as the cause of diseases classified elsewhere; I95.9 Hypotension, unspecified; I87.2 Venous insufficiency (chronic) (peripheral); J44.9 Chronic obstructive pulmonary disease, unspecified; E11.22 Type 2 diabetes mellitus with diabetic chronic kidney disease; E11.42 Type 2 diabetes mellitus with diabetic polyneuropathy; E78.5 Hyperlipidemia, unspecified; E03.9 Hypothyroidism, unspecified; K21.9 Gastro-esophageal reflux disease without esophagitis; Z20.822 Contact with and (suspected) exposure to COVID-19; Z79.84 Long term (current) use of oral hypoglycemic drugs; Z79.4 Long term (current) use of insulin; Z87.891 Personal history of nicotine dependence
CPT/HCPCS: 36415; 36600; 70450; 70551; 71045; 73070; 73560; 80048; 80053; 80202; 81001; 82140; 82565; 82607; 82746; 82805; 82948; 83036; 83605; 83735; 83880; 84443; 84484; 85025; 85027; 85610; 85730; 86140; 87040; 87070; 87147; 87186; 87205; 87426; 93005; 93970; 94762; 96361; 96365; 96366; 96367; 96368; 96375; 97110; 97161; 97165; 97530; 97535; 99285; A9270; C8929; C9803; G0378; J0131; J0692; J1650; J1815; J3370; J3475; J7030; J7120; Q9957; U0003; U0005

== ENCOUNTER 2022-01-09 15:31 | Inpatient (IN) | payer OTHER, SELFPAY ==
--- NOTE | ~2022-01-09 | US_ITS ---
EXAMINATION: US venous doppler [facility] DATE: 01/10/2022 10:26 INDICATION: Bilateral lower limb edema TECHNIQUE: Garcia scale images without and with compression and Doppler images of the bilateral lower e xtremity veins were obtained. COMPARISON: 12/08/2021 FINDINGS: The right common femoral vein, profunda femoral vein, femoral vein, popliteal vein, peroneal trunk, p osterior tibial veins, and greater saphenous vein are patent. There is partial thrombosis of the left popliteal vein. The left common femoral vein, profunda femora l vein, femoral vein, peroneal trunk, posterior tibial veins, and greater saphenous vein are patent. IMPRESSION: 1. Partial thrombosis of the left popliteal vein. Otherwise, patent bilateral lower extremity veins. No evidence of deep venous thrombosis. These findings [facility]. Reviewed, dictated and finalized at location B. ER APPRENTICE GAS IMPRESSION: 1. Partial thrombosis of the left popliteal vein. Otherwise, patent bilateral l ower extremity veins. No evidence of deep venous thrombosis. These findings wer e discussed with the patient's nurse on 3rd [facility] at 1305 hours on 01/10/2022 .
--- NOTE | ~2022-01-09 | CT_ITS ---
EXAMINATION: CT brain wo con INDICATION: Transient alteration of awareness COMPARISON: 12/10/2021 TECHNIQUE: Standard unenhanced head CT. The dose-length product (DLP) was 605.33 mGy-cm. The mA was a djusted according to patient size. Iterative reconstruction technique was employed. FINDINGS: There is no acute intraparenchymal hemorrhage. No evidence of mass lesion. No evidence of a cute infarction. There is mild periventricular and subcortical hypodensity probably related to small vessel ischemic disease. There is mild prominence of the sulci and ventricles related to cerebral atr ophy. Intracranial calcified cerebral atherosclerosis is noted. There are no extra-axial collections. There is no mass effect or midline shift. Changes in the left globe are likely related to ocular corazon s surgery. The visualized sinuses and mastoid air cells are well aerated. IMPRESSION: 1. No acute intracranial abnormality. 2. Age related findings. Reviewed, dictated and finalized at location A. 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
--- NOTE | ~2022-01-09 | XR_ITS ---
EXAMINATION: XR chest 1V portable INDICATION: Weakness TECHNIQUE: Portable AP chest at 1612 hours COMPARISON: 12/07/2021 FINDINGS: Diffuse opacities persist throughout all lung zones without significant change. No pleural effusion or pneumothorax. Cardiomegaly is noted. IMPRESSION: 1. Stable diffuse lung disease, consistent with pneumonia and/or pulmonary edema. 2. Cardiomegaly. Reviewed, dictated and finalized at location B. IN CAREGIVER IMPRESSION: 1. Stable diffuse lung disease, consistent with pneumonia and/or pulmonary basilio a. 2. Cardiomegaly.
--- NOTE | ~2022-01-09 | US_ITS ---
EXAMINATION: US renal BI DATE: 01/10/2022 10:26 INDICATION: Acute renal failure TECHNIQUE: Multiple grayscale and Doppler ultrasound images of the kidneys were obtained. COMPARISON: None. FINDINGS: The right kidney measures 14.2 x 5.8 x 5.1 cm. There are multiple nonobstructing stones of the right kidney which measure up to 1.6 cm. The left kidney measures 14.1 x 5.8 x 5.1 cm. Cysts of t he left kidney measure up to 1.8 cm. The kidneys demonstrate normal parenchymal echogenicity. There i s no hydronephrosis. The bladder is normal. IMPRESSION: 1. Nonobstructing right nephrolithiasis. No sonographic correlate for the patient's symptoms. Reviewed, dictated and finalized at location B. SEWING MACHINE OPERATOR IMPRESSION: 1. Nonobstructing right nephrolithiasis. No sonographic correlate for the patie nt's symptoms.
[2022-01-09 15:42] VITALS: BP 140/93; PULSE 110; RESP 14; TEMP 36.7; O2SAT 98
--- NOTE | 2022-01-09 15:42 | ECG_ITS ---
Measurements Intervals [facility] [place] Rate: 105 P: [place]: 0 QRS: 84 QRSD: 103 T: -20 QT: 323 QTc: 428 Interpretive Statements ATRIAL FIBRILLATION WITH RAPID VENTRICULAR RESPONSE LOW QRS VOLTAGE IN PRECORDIAL LEADS ANTEROSEPTAL INFARCT, AGE INDETERMINATE ST-T WAVE ABNORMALITY IN INFERIOR LEADS- CONSIDER ISCHEMIA BASELINE ARTIFACT- I, II, III, AVR, AVF ABNORMAL ECG COMPARED TO ECG 12/07/2021 19:25:32 ANTEROSEPTAL INFARCT, AGE INDETERMINATE NOW PRESENT ST-T WAVE ABNORMALITY IN INFERIOR LEADS- CONSIDER ISCHEMIA NOW PRESENT Electronically Signed On 01-09-2022 16:45:56 WRESTLING COACH by Silver Torres D.O.
--- NOTE | 2022-01-09 15:59 | ED.GENADULT ---
HPI - General Adult General Chief complaint: Weakness Stated complaint: weakness Time Seen by Provider: 01/09/22 15:31 Source: patient, family and EMS Mode of arrival: EMS Limitations: no limitations History of Present Illness HPI narrative: Patient is 66 years old white male got discharged from our hospital to rehab for the last 3 weeks. Got discharged from rehab 3 days ago because ran out of insurance. Patient been at home for 3 days sitting on a wheelchair, cannot stand up, cannot move because of the severe weakness of the lower extremities. History of diabetes, hypertension, hyperlipidemia, atrial fibrillation on aspirin, multiple falls, DNR. Patient also have pressure ulcer at the heel bilaterally and also at the lower back which got worse over the last 3 days because he cannot move out of the wheelchair. Related Data Home Medications Medication Instructions Recorded Confirmed gabapentin 300 mg capsule 300 mg PO QID 02/15/21 12/08/21 ipratropium 0.5 mg-albuterol 3 mg 3 ml inhalation Q4H PRN Wheezing 02/15/21 12/08/21 (2.5 mg base)/3 mL nebulization soln levothyroxine 100 mcg tablet 100 mcg PO DAILY 02/15/21 12/08/21 metformin 1,000 mg tablet 1,000 mg PO BID 02/15/21 12/08/21 furosemide 40 mg tablet 40 mg PO DAILY 12/08/21 12/08/21 hydrocodone 7.5 mg-acetaminophen 1 tablet PO QID 12/08/21 12/08/21 325 mg tablet insulin NPH-regular 70-30 U-100 20 unit subcut BID 12/08/21 12/08/21 insulin 100 unit/mL subcutaneous pen (Novolin 70-30 FlexPen U-100 Insulin) omeprazole 40 mg capsule,delayed 40 mg PO DAILY 12/08/21 12/08/21 release pravastatin 40 mg tablet 40 mg PO HS 12/08/21 12/08/21 Allergies Allergy/AdvReac Type Severity Reaction Status Date / Time No Known Allergies Allergy Verified 12/08/21 02:49 Review of Systems Review of Systems: All systems reviewed & are unremarkable except as noted in HPI and below PMFSH Past Medical History Medical History (Updated 01/09/22 @ 17:32 by Josué Curtis MD) Atrial fibrillation with rapid ventricular response CHF (congestive heart failure) Chronic venous insufficiency COPD (chronic obstructive pulmonary disease) GERD (gastroesophageal reflux disease) HTN (hypertension) Hyperlipidemia Hypothyroid Insulin dependent diabetes mellitus Meniscus, medial, bucket handle tear, old Family History Family History Sibling Family history of obesity Hypertension Family history of diabetes mellitus in first degree relative Family history of heart disease in male family member before age 55 Patient's sister is in good health Patient's brother is Mother Family history of arthritis Family history of malignant neoplasm Patient's mother is Father Patient's father is Other Malignant neoplasm of prostate Unknown family medical history Social History Social History (Updated 12/08/21 @ 13:22 by NANCY Lee) Social History: Patient is and it appears that his Marlys is his surrogate. She does have POA paperwork but stated that they would not take it because it was not certified. She stated that he does not want to be put on machines, but CPR is ok, however, then she stated that she will know when enough is enough, so agreed to just keep him a full code for now. They have 2 sons, and no pets. Smoking packs per day: 2 Smoking cigarettes per day: 40.0 Years smoked: 15 Smoking pack-years: 30.00 Smoking status: Former smoker Tobacco type: cigarettes Second hand tobacco smoke exposure: No Smoking end date: 03/02/91 Alcohol intake: never Substance use: never Substance use type: does not use Additional occupation/education comments: [employer] Gender identity (if verbalized by the patient): Male Sexual Orientation (if Verbalized by the Patient): Straight or Heterosexual Spiritual care concerns: N
[2022-01-09 16:26] LABS: Basophils Absolute Auto 0.1 K/mm3 (0.0-0.1); Basophils Percent Auto 0.6 % (0.2-1.2); Eosinophils Absolute Auto 0.6 K/mm3 (0-0.3); Eosinophils Percent Auto 7.4 % (0-4.4); Hematocrit 39.8 % (42.0-52.0); Hemoglobin 12.4 g/dL (14.0-18.0); Immature Granulocyte Absolute 0.02 K/mm3 (0.00-0.031); Immature Granulocyte Percent A 0.2 % (0-0.5); Lymphocytes Absolute Auto 1.39 K/mm3 (0.9-3.2); Lymphocytes Percent Auto 16.2 % (18.3-44.2); Mean Corpuscular HGB Conc 31.2 g/dl (32-36); Mean Corpuscular Hemoglobin 27.7 pg (26-34); Monocytes Absolute Auto 0.8 K/mm3 (0.1-0.6); Monocytes Percent Auto 9.5 % (2.6-8.5); Neutrophils Absolute Auto 5.7 K/mm3 (1.3-6.7); Neutrophils Percent Auto 66.1 % (45.5-73.1); Platelet Count Result 188 k/mm3 (150-375); Red Blood Count 4.47 M/mm3 (4.6-6.20); Red Cell Distribution Width 14.1 % (11.5-14.5); White Blood Count 8.6 K/mm3 (4.5-10.0)
[2022-01-09 16:30] VITALS: PULSE 99
[2022-01-09 16:36] LABS: Alanine Aminotransferase 13 U/L (6-50); Albumin Level 3.6 g/dL (3.5-5.1); Alkaline Phosphatase 76 U/L (38-126); Anion Gap 15 mmol/L (8-16); Aspartate Amino Transferase 19 U/L (17-59); Bilirubin,Total 0.3 mg/dL (0.2-1.3); Blood Urea Nitrogen 70 mg/dL (9-20); Calcium 8.9 mg/dL (8.4-10.2); Carbon Dioxide 22 mmol/L (22-30); Chloride 96 mmol/L (98-107); Estimated Glomerular Filt Rate 14; Glucose 212 mg/dL (65-110); Potassium 5.5 mmol/L (3.4-5.0); Sodium 133 mmol/L (137-145)
[2022-01-09 16:48] LABS: Troponin I 0.014 ng/mL (0.000-0.034)
[2022-01-09] MEDS: MORPHINE SULFATE (*CRX) 4 MG/ML INJ IV PUSH (17:00)
[2022-01-09] MEDS: ONDANSETRON INJ 4 MG/2 ML VIAL IV PUSH (17:00)
[2022-01-09 17:30] VITALS: TEMP 36.7
[2022-01-09 17:48] VITALS: BP 155/92; PULSE 100; RESP 18; O2SAT 96
[2022-01-09 17:49] LABS: Appearance Urine Clear (Clear); Bilirubin Urine Negative (Negative); Blood Urine 2+ (Negative); Color Urine Yellow (Yellow); Glucose Urine UA Negative (Negative); Ketones Urine Negative (Negative); Leukocyte Esterase Ur Negative LEU/UL (Negative); Nitrate Urine Negative (Negative); Protein Urine 1+ mg/dL (Negative); Urobilinogen Urine 0.2 mg/dL (<2.0); pH Urine 5.5 (5.0-9.0)
[2022-01-09 17:49] LABS: Influenza A QL RT-PCR Negative (Negative); Influenza B QL RT-PCR Negative (Negative); SARS-CoV-2 RNA PCR Negative
[2022-01-09 17:56] LABS: Bacteria Urine Trace /hpf; Mucus Urine Rare /lpf; RBC Urine 21-50 /hpf (0-2); Squamous Epithelial Cell Urine Rare /hpf (Few); WBC Urine 0-3 /hpf
[2022-01-09 17:58] LABS: Add Urine Microscopic? YES
[2022-01-09] MEDS: SODIUM CHLORIDE 0.9% IV 1,000 ML 999 ML IV CONT (17:58)
--- NOTE | 2022-01-09 18:22 | PM.IMHP ---
H&P: HPI History of Present Illness Date/Time: 01/09/22 18:22 Chief Complaint: Weakness Narrative: This is a 66-year-old male patient who has a history of chronic venous stasis dermatitis. The patient was discharged from here on 12/16/2021 after being treated for cellulitis with MRSA. The patient was treated with doxycycline. The patient was discharged to a rehab facility and was discharged from that rehab facility approximately 3 days ago because insurance ran out. The patient thought that maybe that would be okay and that he was strong enough but once a got home he decided that he was not strong enough. The patient is in a wheelchair and cannot take care of himself. The tries to take care of him the best she can. He has a history of diabetes, hypertension, hyperlipidemia atrial fibrillation and multiple falls. The patient has a chronic sacral wound as well. The patient is now too weak to get himself out of the wheelchair. His H&H is 12.4 and 39.8. Sodium is 133, potassium 5.5, chloride 96, BUN 70, and creatinine 4.4. His GFR is now 14. Glucose is 212. He is negative for influenza A/B and COVID. The patient is being admitted to inpatient status on the date of service of 01/09/2022. Review of Systems Review of Systems: See HPI All systems reviewed & are unremarkable except as noted in HPI and below Constitutional: Constitutional: Reports as per HPI and Reports no additional constitutional complaints Eyes: Eyes: Reports as per HPI and Reports no additional eye complaints ENT: Reports system reviewed and no additional complaints, except as documented and Reports Normal hearing present Cardiovascular: Cardiovascular: Reports no additional cardiovascular complaints Respiratory: Respiratory: Reports no additional respiratory complaints and Reports no additional respiratory complaints Gastrointestinal: Gastrointestinal: Reports as per HPI and Reports no additional gastrointestinal complaints Musculoskeletal: Musculoskeletal: Reports no additional musculoskeletal complaints Integumentary/Breasts: Skin/Breast: Reports system reviewed and no additional complaints, except as docu and Reports as per HPI Neurologic: Reports system reviewed and no additional complaints, except as documented, Reports as per HPI and Reports Normal hearing present Psychiatric: Psychiatric: Reports no additional psychiatric complaints and Reports as per HPI Endocrine: Endocrine: Reports no additional endocrine complaints Hematologic/Lymphatic: Hematologic/Lymphatic: Reports no additional hematologic/lymphatic complaints Allergic/Immunologic: Allergic/Immunologic: Reports no additional allergic/immunologic complaints PMFSH Past Medical History Medical History (Updated 01/09/22 @ 21:13 by Laura Bishop NP) Atrial fibrillation with rapid ventricular response CHF (congestive heart failure) Chronic venous insufficiency COPD (chronic obstructive pulmonary disease) Depression GERD (gastroesophageal reflux disease) HTN (hypertension) Hyperlipidemia Hypothyroid Insulin dependent diabetes mellitus Kidney stones Meniscus, medial, bucket handle tear, old JUN on CPAP Noncompliant with CPAP Peripheral neuropathy Surgical History Surgical History (Updated 01/09/22 @ 20:51 by Laura Bishop NP) H/O cataract extraction H/O hemorrhoidectomy History of appendectomy History of back surgery Family History Family History Sibling Family history of obesity Hypertension Family history of diabetes mellitus in first degree relative Family history of heart disease in male family member before age 55 Patient's sister is in good health Patient's brother is Mother Family history of arthritis Family history of malignant neoplasm Patient's mother is Father Patient's father is Other Malignant neoplasm of prostate Unknown f
[2022-01-09 20:00] VITALS: BP 125/106; PULSE 102; PULSE 58; RESP 18; TEMP 36.8; O2SAT 93; BMI 46.7
--- NOTE | 2022-01-09 21:28 | PC.NURSE ---
Pt unaware and unable to confirm home medications. Called placed and voicemail left for , Marlys.
[2022-01-09 22:53] LABS: Anion Gap 11 mmol/L (8-16); Blood Urea Nitrogen 75 mg/dL (9-20); Calcium 8.9 mg/dL (8.4-10.2); Carbon Dioxide 23 mmol/L (22-30); Chloride 100 mmol/L (98-107); Creatine Kinase 39 U/L (55-170); Estimated CRCL calculation 26 ml/min; Estimated Glomerular Filt Rate 16; Glucose 156 mg/dL (65-110); Magnesium 1.4 mg/dL (1.6-2.3); Potassium 6.1 mmol/L (3.4-5.0); Sodium 134 mmol/L (137-145)
[2022-01-09 22:58] LABS: Complement C3 116 mg/dL (88-165)
[2022-01-09 23:10] VITALS: PULSE 96; RESP 18
[2022-01-09] MEDS: ALBUTEROL SULFATE NEB 2.5 MG/3 ML INH 1.25 MG INHALATION (23:10)
[2022-01-09 23:42] LABS: Hepatitis B Surface Antigen Negative (Negative)
[2022-01-09 23:47] LABS: Hepatitis B Core IgM Result Negative (Negative)
[2022-01-09 23:48] LABS: Erythrocyte Sedimentation Rate 49 mm/hr (0-20)
[2022-01-09 23:59] LABS: Hepatitis B Surface Anti Res Negative; Hepatitis C Virus Antibody Negative (Negative)
[2022-01-10] VITALS (8 sets, daily range): BP systolic 100–135; BP diastolic 50–72; PULSE 64–117; RESP 14–20; TEMP 35.6–36.3; O2SAT 90–97
[2022-01-10] MEDS: FUROSEMIDE INJ 40 MG/4 ML VIAL 20 MG IV PUSH (01:04)
[2022-01-10 06:32] LABS: Basophils Absolute Auto 0.1 K/mm3 (0.0-0.1); Basophils Percent Auto 0.7 % (0.2-1.2); Eosinophils Absolute Auto 0.6 K/mm3 (0-0.3); Eosinophils Percent Auto 9.1 % (0-4.4); Hematocrit 40.6 % (42.0-52.0); Hemoglobin 12.7 g/dL (14.0-18.0); Immature Granulocyte Absolute 0.02 K/mm3 (0.00-0.031); Immature Granulocyte Percent A 0.3 % (0-0.5); Lymphocytes Absolute Auto 1.32 K/mm3 (0.9-3.2); Lymphocytes Percent Auto 19.4 % (18.3-44.2); Mean Corpuscular HGB Conc 31.3 g/dl (32-36); Mean Corpuscular Hemoglobin 27.5 pg (26-34); Mean Corpuscular Volume 87.9 fl (80-100); Mean Platelet Volume 10.6 fl (7.4-10.4); Monocytes Absolute Auto 0.7 K/mm3 (0.1-0.6); Monocytes Percent Auto 9.6 % (2.6-8.5); Neutrophils Absolute Auto 4.1 K/mm3 (1.3-6.7); Neutrophils Percent Auto 60.9 % (45.5-73.1); Platelet Count Result 197 k/mm3 (150-375); Red Blood Count 4.62 M/mm3 (4.6-6.20); Red Cell Distribution Width 14.1 % (11.5-14.5); White Blood Count 6.8 K/mm3 (4.5-10.0)
[2022-01-10 07:10] LABS: Anion Gap 11 mmol/L (8-16); Blood Urea Nitrogen 74 mg/dL (9-20); CRP 3.6 mg/dL (<1.0); Calcium 9.1 mg/dL (8.4-10.2); Carbon Dioxide 21 mmol/L (22-30); Chloride 101 mmol/L (98-107); Estimated CRCL calculation 25 ml/min; Estimated Glomerular Filt Rate 15; Glucose 134 mg/dL (65-110); Magnesium 1.5 mg/dL (1.6-2.3); Phosphorus 5.6 mg/dL (2.5-4.5); Potassium 6.2 mmol/L (3.4-5.0); Sodium 133 mmol/L (137-145)
[2022-01-10 07:24] LABS: Hemoglobin A1C 10.2 % (<5.7)
[2022-01-10 08:21] LABS: Glucose Point of Care 143 mg/dl (65-105)
[2022-01-10] MEDS: SODIUM POLYSTYRENE SULFONONATE 15 GM/60 ML BTL 60 GM PO (08:33)
[2022-01-10] MEDS: DEXTROSE 50% 25 GM/50 ML SYRINGE IV PUSH (08:35)
[2022-01-10] MEDS: SODIUM ZIRCONIUM CYCLOSILICATE 10 GM POWD.PACK PO (10:45)
[2022-01-10] MEDS: SILVERGEL (ELTA) 45 ML 1 APPLIC TOPICAL (10:45)
[2022-01-10 11:07] LABS: Potassium 5.6 mmol/L (3.4-5.0)
[2022-01-10] MEDS: ACETAMINOPHEN 325 MG TABLET 650 MG PO (11:40)
[2022-01-10 11:56] LABS: Glucose Point of Care 199 mg/dl (65-105)
--- NOTE | 2022-01-10 12:21 | PM.IMPN ---
Progress Note: A&P Assessment and Plan (1) JHONY (acute kidney injury): Code(s): N17.9 - Acute kidney failure, unspecified Status: Acute Assessment and Plan: -Patient's BUN is 70 with a baseline summer in the 20s. Creatinine 4.4 today with a baseline of normal creatinine. GFR is 14 today with a normal baseline. -nephrology has been consulted. -renal ultrasound and labs have been ordered already. -patient was given some fluids in the emergency room however patient has 4+ pitting edema to lower extremities and I did not want to overload him. -avoid nephrotoxic medication. (2) Atrial fibrillation with rapid ventricular response: Code(s): I48.91 - Unspecified atrial fibrillation Status: Acute Assessment and Plan: -the patient is in AFib at this time with his heart rate in the lower 100s. -continue with Coreg and aspirin (3) CHF (congestive heart failure): Qualifiers: Heart failure chronicity: unspecified Heart failure type: unspecified Qualified Code(s): I50.9 - Heart failure, unspecified Code(s): I50.9 - Heart failure, unspecified Status: Acute Assessment and Plan: Echo on 12/09/2021-1. Normal left ventricular size with vigorous systolic contractility. ? 2. Dilated left atrium. ? 3. Atrial fibrillation. ? 4. No significant valvular dysfunction. Although the patient has 4+ pitting edema I am holding his Lasix for today due to his acute renal failure. (4) Chronic venous insufficiency: Code(s): I87.2 - Venous insufficiency (chronic) (peripheral) Status: Acute Assessment and Plan: -the patient has a large blister to his right lower extremities. And I was not able to wrap his legs at this time. (5) Depression: Code(s): F32.A - Depression, unspecified Status: Acute Assessment and Plan: -continue trazodone (6) Hypertension: Code(s): I10 - Essential (primary) hypertension Status: Acute Assessment and Plan: -continue with Coreg (7) Insulin dependent diabetes mellitus: Status: Acute Assessment and Plan: -hold metformin due to his acute renal failure. -Accu-Cheks AC and HS. -sliding scale insulin with hypoglycemic protocol. -check A1c. (8) Peripheral neuropathy: Code(s): G62.9 - Polyneuropathy, unspecified Status: Acute Assessment and Plan: -continue with gabapentin (9) Weakness: Code(s): R53.1 - Weakness Status: Acute Assessment and Plan: PT and OT evaluation would greatly be appreciated. -care coordination consult greatly be appreciated for [facility] placement. (10) Hyperlipidemia: Code(s): E78.5 - Hyperlipidemia, unspecified Status: Acute Assessment and Plan: -hold statin for today due to his weakness. (11) Hypothyroid: Code(s): E03.9 - Hypothyroidism, unspecified Status: Acute Assessment and Plan: -check thyroid level and continue with levothyroxine. (12) Hyperkalemia: Code(s): E87.5 - Hyperkalemia Status: Acute Assessment and Plan: This could be related to his acute renal failure. I am rechecking his BMP and if his potassium is high then we will treated. Subjective Date/time seen: 01/10/22 12:21 Patient was seen during the morning rounds today. Complained of having generalized weakness. No shortness of breath or chest pain. No abdominal pain, no nausea, no vomiting. Mood stable. Review of Systems Review of Systems: All systems reviewed & are unremarkable except as noted in HPI and below (the history and physical exam.) Constitutional: Constitutional: Reports as per HPI and Reports no additional constitutional complaints Eyes: Eyes: Reports as per HPI and Reports no additional eye complaints ENT: Reports system reviewed and no additional complaints, except as documented and Reports Normal hearing present Cardiovascular: Cardiovascular: Reports no additional cardio
--- NOTE | 2022-01-10 13:35 | P.CONNP_ITS ---
Assessment and Plan Assessment and plan (1) JHONY (acute kidney injury): Code(s): N17.9 - Acute kidney failure, unspecified Status: Acute Assessment and Plan: * etiology not entirely clear at this time * normal creatinine at baseline and about a month ago * evaluation to date: * renal ultrasound normal (nonobstructed right stone noted) * urine electrolytes pending * UA with some blood and protein * does not appear dehydrated * despite extensive LE edema, suppose it is possible he could be intravascularly dry * however, no reported issues with poor oral intake (but is on diuretics) * no new medication changes or additions of note * INTERESTINGLY, upon placement of [place] catheter, he had immediate return of 750cc of urine * perhaps this is just all urinary retention/obstructive uropathy * follow trend of repeat labs and UOP s/p [place] catheter placement (2) Hyperkalemia: Code(s): E87.5 - Hyperkalemia Status: Acute Assessment and Plan: * presumably due to #1 and possibly retention * s/p medical management * follow trend of K+ (3) CHF (congestive heart failure): Qualifiers: Heart failure chronicity: unspecified Heart failure type: unspecified Qualified Code(s): I50.9 - Heart failure, unspecified Code(s): I50.9 - Heart failure, unspecified Status: Acute Assessment and Plan: * recent Echo noted * seems relatively stable at this pablo * has extensive LE edema but this seems to be a chronic issue * seems reasonable to hold diuretics for now * follow respiratory status (4) Hypertension: Code(s): I10 - Essential (primary) hypertension Status: Chronic Assessment and Plan: * reasonable control at this time * follow trend of hemodynamics (5) Weakness: Code(s): R53.1 - Weakness Status: Acute Assessment and Plan: * was in rehab but unclear if he really made any progress given his chronic debilitated state * PT/OT as tolerated * suspect he may need correction placement (6) Insulin dependent diabetes mellitus: Status: Acute Assessment and Plan: * holding metformin * follow accuchecks * glycemic control Will continue to follow. History of Present Illness Reason for Consult Consult date: 01/10/22 Reason for consult: acute renal failure Chief Complaint Chief complaint: General weakness,unable to ambulate,jhony History of Present Illness Narrative: The patient is a 66-year-old male with a past medical history as noted below due to generalized weakness. The patient was just recently discharged about a month ago here at [facility] for lower extremity cellulitis. He was treated with a combination of IV antibiotic therapy and supportive measures and subsequently transitioned over to oral antibiotic therapy. However, given his overall clinical status, he was quite deconditioned and he was felt to benefit from outpatient rehab care and hence was discharged to a rehab facility. Apparently, he has been at [facility] for approximately 3-4 weeks and I am unclear how much improvement occurred during that time frame but was eventually discharged about 3 days prior to presentation to the emergency room due to his insurance running out. Initially, the patient thought that he would be okay to go home as he felt that he had gained enough strength to do so but apparently, this was not the case. When he got home, it was quite evident that he had difficulty taking care of himself as well as ambulating and for th
--- NOTE | 2022-01-10 13:35 | PM.CNNEP ---
Assessment and Plan Assessment and plan (1) JHONY (acute kidney injury): Code(s): N17.9 - Acute kidney failure, unspecified Status: Acute Assessment and Plan: etiology not entirely clear at this time normal creatinine at baseline and about a month ago evaluation to date: renal ultrasound normal (nonobstructed right stone noted) urine electrolytes pending UA with some blood and protein does not appear dehydrated despite extensive LE edema, suppose it is possible he could be intravascularly dry however, no reported issues with poor oral intake (but is on diuretics) no new medication changes or additions of note INTERESTINGLY, upon placement of [place] catheter, he had immediate return of 750cc of urine perhaps this is just all urinary retention/obstructive uropathy follow trend of repeat labs and UOP s/p h[place] catheter placement (2) Hyperkalemia: Code(s): E87.5 - Hyperkalemia Status: Acute Assessment and Plan: presumably due to #1 and possibly retention s/p medical management follow trend of K+ (3) CHF (congestive heart failure): Qualifiers: Heart failure chronicity: unspecified Heart failure type: unspecified Qualified Code(s): I50.9 - Heart failure, unspecified Code(s): I50.9 - Heart failure, unspecified Status: Acute Assessment and Plan: recent Echo noted seems relatively stable at this pablo has extensive LE edema but this seems to be a chronic issue seems reasonable to hold diuretics for now follow respiratory status (4) Hypertension: Code(s): I10 - Essential (primary) hypertension Status: Chronic Assessment and Plan: reasonable control at this time follow trend of hemodynamics (5) Weakness: Code(s): R53.1 - Weakness Status: Acute Assessment and Plan: was in rehab but unclear if he really made any progress given his chronic debilitated state PT/OT as tolerated suspect he may need retirement placement (6) Insulin dependent diabetes mellitus: Status: Acute Assessment and Plan: holding metformin follow accuchecks glycemic control Will continue to follow. History of Present Illness Reason for Consult Consult date: 01/10/22 Reason for consult: acute renal failure Chief Complaint Chief complaint: General weakness,unable to ambulate,jhony History of Present Illness Narrative: The patient is a 66-year-old male with a past medical history as noted below due to generalized weakness. The patient was just recently discharged about a month ago here at [facility] for lower extremity cellulitis. He was treated with a combination of IV antibiotic therapy and supportive measures and subsequently transitioned over to oral antibiotic therapy. However, given his overall clinical status, he was quite deconditioned and he was felt to benefit from outpatient rehab care and hence was discharged to a rehab facility. Apparently, he has been at [facility] for approximately 3-4 weeks and I am unclear how much improvement occurred during that time frame but was eventually discharged about 3 days prior to presentation to the emergency room due to his insurance running out. Initially, the patient thought that he would be okay to go home as he felt that he had gained enough strength to do so but apparently, this was not the case. When he got home, it was quite evident that he had difficulty taking care of himself as well as ambulating and for the most part have been pretty much wheelchair dependent. His has been doing the best that she can in terms of taking care of him but she is quite overwhelmed. Given his ongoing deconditioned state and worsening weakness since being at home, he was brought back to the emergency room for further assessment. Workup and evaluation emergency room demonstrated the patient to be hemodynamically stable but routine blood te
--- NOTE | 2022-01-10 14:05 | PCPTNOTE ---
Attempted PT evaluation, pt now has a partial DVT in LLE and continues to have bedrest orders. Hospitalist contacted and agreed to keep the patient on bedrest at this time. PT hold for today due to being on bed rest. Will Follow.
[2022-01-10] MEDS: SODIUM POLYSTYRENE SULFONONATE 15 GM/60 ML BTL PO (14:40)
[2022-01-10] MEDS: DOXYCYCLINE HYCLATE 100 MG TABLET PO ×2 (14:40→20:28)
[2022-01-10 16:53] LABS: Glucose Point of Care 225 mg/dl (65-105)
[2022-01-10] MEDS: INSULIN ASPART (*BKC) 100 UNITS/ML SUB-Q (16:55)
[2022-01-10 20:04] LABS: Glucose Point of Care 202 mg/dl (65-105)
[2022-01-10] MEDS: carvediloL 12.5 MG TABLET PO (20:28)
[2022-01-10] MEDS: HEPARIN SODIUM 5,000 UNITS/ML VIAL 5000 UNITS SUB-Q (20:29)
[2022-01-11] VITALS (12 sets, daily range): BP systolic 121–149; BP diastolic 71–88; PULSE 103–153; RESP 18–20; TEMP 36.3–37; O2SAT 92–95
[2022-01-11] MEDS: METOPROLOL TARTRATE INJ 5 MG/5 ML VIAL IV PUSH ×2 (03:18→05:38)
[2022-01-11 06:49] LABS: Hematocrit 39.6 % (42.0-52.0); Hemoglobin 12.4 g/dL (14.0-18.0); Mean Corpuscular HGB Conc 31.3 g/dl (32-36); Mean Corpuscular Hemoglobin 27.6 pg (26-34); Mean Corpuscular Volume 88.2 fl (80-100); Mean Platelet Volume 10.3 fl (7.4-10.4); Platelet Count Result 198 k/mm3 (150-375); Red Blood Count 4.49 M/mm3 (4.6-6.20); Red Cell Distribution Width 13.8 % (11.5-14.5); White Blood Count 11.3 K/mm3 (4.5-10.0)
[2022-01-11 06:59] LABS: Alanine Aminotransferase 12 U/L (6-50); Albumin Level 3.4 g/dL (3.5-5.1); Alkaline Phosphatase 67 U/L (38-126); Anion Gap 13 mmol/L (8-16); Aspartate Amino Transferase 21 U/L (17-59); Bilirubin,Total 0.3 mg/dL (0.2-1.3); Blood Urea Nitrogen 56 mg/dL (9-20); Carbon Dioxide 22 mmol/L (22-30); Chloride 98 mmol/L (98-107); Estimated CRCL calculation 35 ml/min; Estimated Glomerular Filt Rate 22; Glucose 192 mg/dL (65-110); Potassium 4.2 mmol/L (3.4-5.0); Sodium 133 mmol/L (137-145)
[2022-01-11 08:15] LABS: Glucose Point of Care 179 mg/dl (65-105)
--- NOTE | 2022-01-11 08:20 | PCPTNOTE ---
Talked to RONNIE Little. Patient is still on strict bedrest for today. Will check back tomorrow.
[2022-01-11] MEDS: carvediloL 12.5 MG TABLET PO ×2 (08:34→20:09)
[2022-01-11] MEDS: DOXYCYCLINE HYCLATE 100 MG TABLET PO ×2 (08:34→20:10)
[2022-01-11] MEDS: ASPIRIN 81 MG ENTERIC TABLET PO (08:34)
[2022-01-11] MEDS: SILVERGEL (ELTA) 45 ML 1 APPLIC TOPICAL (08:35)
[2022-01-11] MEDS: HEPARIN SODIUM 5,000 UNITS/ML VIAL 5000 UNITS SUB-Q ×2 (08:35→20:10)
--- NOTE | 2022-01-11 10:34 | PCOTNOTE ---
Patient is still on strict bedrest for today, will followup tomorrow for OT evaluation.
[2022-01-11 11:42] LABS: Glucose Point of Care 277 mg/dl (65-105)
[2022-01-11] MEDS: ACETAMINOPHEN 325 MG TABLET 650 MG PO ×2 (12:00→17:53)
[2022-01-11] MEDS: INSULIN ASPART (*BKC) 100 UNITS/ML SUB-Q ×2 (12:01→17:34)
--- NOTE | 2022-01-11 12:32 | PM.PNNEP ---
Progress Note: A&P Assessment and Plan (1) JHONY (acute kidney injury): Code(s): N17.9 - Acute kidney failure, unspecified Status: Acute Assessment and Plan: suspect urinary retention/obstructive uropathy evaluation to date: renal ultrasound normal (nonobstructed right stone noted) urine electrolytes pending UA with some blood and protein upon placement of houston catheter, he had immediate return of 750cc of urine follow trend of repeat labs and UOP (2) Hyperkalemia: Code(s): E87.5 - Hyperkalemia Status: Acute Assessment and Plan: resolved presumably due to #1 and possibly retention s/p medical management follow trend of K+ (3) CHF (congestive heart failure): Qualifiers: Heart failure chronicity: unspecified Heart failure type: unspecified Qualified Code(s): I50.9 - Heart failure, unspecified Code(s): I50.9 - Heart failure, unspecified Status: Acute Assessment and Plan: recent Echo noted seems relatively stable at this pablo has extensive LE edema but this seems to be a chronic issue seems reasonable to hold diuretics for now - likely restart as kidney function improves follow respiratory status (4) Hypertension: Code(s): I10 - Essential (primary) hypertension Status: Chronic Assessment and Plan: reasonable control at this time follow trend of hemodynamics (5) Weakness: Code(s): R53.1 - Weakness Status: Acute Assessment and Plan: was in rehab but unclear if he really made any progress given his chronic debilitated state PT/OT as tolerated suspect he may need custodial placement (6) Insulin dependent diabetes mellitus: Status: Acute Assessment and Plan: holding metformin follow accuchecks glycemic control Will continue to follow. Subjective Date/time seen: 01/11/22 12:32 Overall, he seems to be doing/feeling better and potassium has improved as has renal function; no apparent distress voiced; excellent urine output since houston catheter placement; no other issues/events overnight or earlier this morning. Exam Narrative: General: WD/WN male in NAD Heart: normal S1 and S2; no rub Lungs: clear anteriorly Abdomen: obese soft, nontender, nondistended, positive bowel sounds Extremities: no cyanosis or clubbing; 2 - 3+ edema Skin: chronic stasis dermatitis on RLE Objective Data Vital Signs Vital Signs: Vital Signs Temp Pulse Resp BP Pulse Ox O2 Del Method 11/12/22 12:00 103 H 01/11/22 08:00 136 H 01/11/22 12:00 36.4 C L 109 H 20 141/88 H 93 01/11/22 08:00 93 Room Air 01/11/22 10:38 92 Room Air 01/11/22 08:00 36.8 C 113 H 18 134/71 93 01/11/22 08:34 132 H 01/11/22 05:38 137 H 01/11/22 04:00 129 H 01/11/22 00:00 133 H 01/11/22 03:49 36.9 C 112 H 20 121/75 94 01/11/22 03:18 153 H 01/11/22 00:00 36.8 C 123 H 20 134/82 95 01/10/22 20:00 84 01/10/22 20:00 36.1 C L 64 16 135/68 97 01/10/22 20:28 80 01/10/22 16:00 101 H 01/10/22 16:00 35.6 C L 101 H 20 104/62 93 Intake/Output Intake/Output: Intake & Output 01/08/22 01/09/22 01/10/22 01/11/22 23:59 23:59 23:59 23:59 Intake Total 1000 2460 240 Output Total 800 2150 1600 Balance 200 310 -1360 Meds/Results Medications: Active Medications Generic Name Dose Route Start Last Admin Trade Name Freq PRN Reason Stop Dose Admin Acetaminophen 650 mg 01/09/22 17:35 01/11/22 12:00 Acetaminophen 325 Mg Tablet PO 650 mg Q4H PRN Administration Mild Pain (1-3) or Fever Aspirin 81 mg 01/11/22 09:00 01/11/22 08:34 Aspirin 81 Mg Enteric Tablet PO 81 mg QAM HERMILO Administration Carvedilol 12.5 mg 01/10/22 21:00 01/11/22 08:34 Carvedilol 12.5 Mg Tablet PO 12.5 mg Q12HR HERMILO Administration Dextrose 12.5 gm 01/09/22
--- NOTE | 2022-01-11 12:32 | P.PNNP_ITS ---
Progress Note: A&P Assessment and Plan (1) JHONY (acute kidney injury): Code(s): N17.9 - Acute kidney failure, unspecified Status: Acute Assessment and Plan: * suspect urinary retention/obstructive uropathy * evaluation to date: * renal ultrasound normal (nonobstructed right stone noted) * urine electrolytes pending * UA with some blood and protein * upon placement of [place] catheter, he had immediate return of 750cc of urine * follow trend of repeat labs and UOP (2) Hyperkalemia: Code(s): E87.5 - Hyperkalemia Status: Acute Assessment and Plan: * resolved * presumably due to #1 and possibly retention * s/p medical management * follow trend of K+ (3) CHF (congestive heart failure): Qualifiers: Heart failure chronicity: unspecified Heart failure type: unspecified Qualified Code(s): I50.9 - Heart failure, unspecified Code(s): I50.9 - Heart failure, unspecified Status: Acute Assessment and Plan: * recent Echo noted * seems relatively stable at this pablo * has extensive LE edema but this seems to be a chronic issue * seems reasonable to hold diuretics for now - likely restart as kidney function improves * follow respiratory status (4) Hypertension: Code(s): I10 - Essential (primary) hypertension Status: Chronic Assessment and Plan: * reasonable control at this time * follow trend of hemodynamics (5) Weakness: Code(s): R53.1 - Weakness Status: Acute Assessment and Plan: * was in rehab but unclear if he really made any progress given his chronic debilitated state * PT/OT as tolerated * suspect he may need [facility] placement (6) Insulin dependent diabetes mellitus: Status: Acute Assessment and Plan: * holding metformin * follow accuchecks * glycemic control Will continue to follow. Subjective Date/time seen: 01/11/22 12:32 Overall, he seems to be doing/feeling better and potassium has improved as has renal function; no apparent distress voiced; excellent urine output since houston catheter placement; no other issues/events overnight or earlier this morning. Exam Narrative: General: WD/WN male in NAD Heart: normal S1 and S2; no rub Lungs: clear anteriorly Abdomen: obese soft, nontender, nondistended, positive bowel sounds Extremities: no cyanosis or clubbing; 2 - 3+ edema Skin: chronic stasis dermatitis on RLE Objective Data Vital Signs Vital Signs: Vital Signs Temp Pulse Resp BP Pulse Ox O2 Del Method 01/11/22 12:00 103 H 01/11/22 08:00 136 H 01/11/22 12:00 36.4 C L 109 H 20 141/88 H 93 01/11/22 08:00 93 Room Air 01/11/22 10:38 92 Room Air 01/11/22 08:00 36.8 C 113 H 18 134/71 93 01/11/22 08:34 132 H 01/11/22 05:38 137 H 01/11/22 04:00 129 H 01/11/22 00:00 133 H 01/11/22 03:49 36.9 C 112 H 20 121/75 94 01/11/22 03:18 153 H 01/11/22 00:00 36.8 C 123 H 20 134/82 95 01/10/22 20:00 84 01/10/22 20:00 36.1 C L 64 16 135/68 97 01/10/22 20:28 80 01/10/22 16:00 101 H 01/10/22 16:00 35.6 C L 101 H 20 104/62 93 Intake/Output Intake/Output:
--- NOTE | 2022-01-11 13:42 | PM.IMPN ---
Progress Note: A&P Assessment and Plan (1) JHONY (acute kidney injury): Code(s): N17.9 - Acute kidney failure, unspecified Status: Acute Assessment and Plan: -Patient's BUN is 70 with a baseline summer in the 20s. Creatinine 4.4 today with a baseline of normal creatinine. GFR is 14 today with a normal baseline. -nephrology has been consulted. -renal ultrasound and labs have been ordered already. -patient was given some fluids in the emergency room however patient has 4+ pitting edema to lower extremities and I did not want to overload him. -avoid nephrotoxic medication. HPI-Narrative: This is a 66-year-old male patient who has a history of chronic venous stasis dermatitis.? The patient was discharged from here on 12/16/2021 after being treated for cellulitis with MRSA.? The patient was treated with doxycycline.? The patient was discharged to a rehab facility and was discharged from that rehab facility approximately 3 days ago because insurance ran out.? The patient thought that maybe that would be okay and that he was strong enough but once a got home he decided that he was not strong enough.? The patient is in a wheelchair and cannot take care of himself.? The tries to take care of him the best she can.? He has a history of diabetes, hypertension, hyperlipidemia atrial fibrillation and multiple falls.? The patient has a chronic sacral wound as well.? The patient is now too weak to get himself out of the wheelchair.? His H&H is 12.4 and 39.8.? Sodium is 133, potassium 5.5, chloride 96, BUN 70, and creatinine 4.4.? His GFR is now 14.? Glucose is 212.? He is negative for influenza A/B and COVID.? The patient is being admitted to inpatient status on the date of service of 01/09/2022. 01/11/2022 interval history: patient was discharged from acute rehab but was too weak to manage at home and presented emergency department further evaluation upon arrival patient was dehydrated with elevated BUN of 70 and serum creatinine on 4.4 and potassium 5.5, patient is seen by railway yard assistant patient is gently hydrated and today patient BUN is 56 and creatinine is 2.9, is feeling much better compared to when he arrived, will have PT OT evaluate the patient patient may need long-term placement, as his is not able to manage at home, will continue to monitor and further recommendation to follow. (2) Atrial fibrillation with rapid ventricular response: Code(s): I48.91 - Unspecified atrial fibrillation Status: Acute Assessment and Plan: -the patient is in AFib at this time with his heart rate in the lower 100s. -continue with Coreg and aspirin (3) CHF (congestive heart failure): Qualifiers: Heart failure chronicity: unspecified Heart failure type: unspecified Qualified Code(s): I50.9 - Heart failure, unspecified Code(s): I50.9 - Heart failure, unspecified Status: Acute Assessment and Plan: Echo on 12/09/2021-1. Normal left ventricular size with vigorous systolic contractility. ? 2. Dilated left atrium. ? 3. Atrial fibrillation. ? 4. No significant valvular dysfunction. Although the patient has 4+ pitting edema I am holding his Lasix for today due to his acute renal failure. (4) Chronic venous insufficiency: Code(s): I87.2 - Venous insufficiency (chronic) (peripheral) Status: Acute Assessment and Plan: -the patient has a large blister to his right lower extremities. And I was not able to wrap his legs at this time. (5) Depression: Code(s): F32.A - Depression, unspecified Status: Acute Assessment and Plan: -continue trazodone (6) Hypertension: Code(s): I10 - Essential (primary) hypertension Status: Chronic Assessment and Plan: -continue with Coreg (7) Insulin dependent diabetes mellitus: Status: Acute Assessment and Plan: -hold metformin due to his acute renal failure. -Accu-Cheks AC and HS. -sliding scale insulin with
[2022-01-11 16:39] LABS: Glucose Point of Care 240 mg/dl (65-105)
[2022-01-11 16:59] LABS: Creatinine Urine 39.9 mg/dL; Urea Random Urine 412 MG/DL
[2022-01-11 17:00] LABS: Sodium Urine Random 46 meq/L
[2022-01-11 17:57] LABS: Eosinophil Urine None Seen % (None Seen)
[2022-01-12] VITALS (13 sets, daily range): BP systolic 113–163; BP diastolic 61–87; PULSE 77–119; RESP 16–22; TEMP 35.6–36.4; O2SAT 92–100
[2022-01-12 00:10] LABS: Glucose Point of Care 190 mg/dl (65-105)
[2022-01-12] MEDS: ACETAMINOPHEN 325 MG TABLET 650 MG PO ×3 (01:04→22:54)
--- NOTE | 2022-01-12 02:00 | PM.EVENT ---
Event Note Event Note Event Note: 01/12/2022 at 02:00 Nursing staff called to notify me that the patient chart flagged for sepsis criteria. 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 He is known to be in AFib RVR. Heart rates improved compared to in the middle the night yesterday but still remained elevated. The patient had a new leukocytosis this morning on labs. At some point today the patient had urine culture that came back for Gram-negative bacilli. The patient is only on antibiotics with doxycycline floor venous stasis ulcers that her infected with MRSA. It does not look like the patient was started on antibiotics for his UTI but it is unclear if anybody was notified of the positive urine culture. At this time patient meets sepsis criteria with tachypnea, tachycardia, and leukocytosis in the setting of a UTI. Stat blood cultures and lactic acid have been ordered. Will hold off on giving the patient IV fluids given his prior checks x-ray demonstrating pulmonary edema in the setting of CHF.
[2022-01-12] MEDS: cefTRIAXone 2 GM in SODIUM CHLORIDE 0.9% IV 100 ML 200 ML IVPB ×2 (02:12→20:44)
[2022-01-12 02:31] LABS: Hematocrit 37.4 % (42.0-52.0); Mean Corpuscular HGB Conc 32.1 g/dl (32-36); Mean Corpuscular Hemoglobin 27.5 pg (26-34); Mean Corpuscular Volume 85.6 fl (80-100); Mean Platelet Volume 9.5 fl (7.4-10.4); Platelet Count Result 179 k/mm3 (150-375); Red Blood Count 4.37 M/mm3 (4.6-6.20); Red Cell Distribution Width 13.8 % (11.5-14.5)
[2022-01-12 02:41] LABS: Lactic Acid Reflex 0.7 mmol/L (0.7-2.0)
[2022-01-12 02:45] LABS: Albumin Level 3.2 g/dL (3.5-5.1); Anion Gap 12 mmol/L (8-16); Blood Urea Nitrogen 38 mg/dL (9-20); Calcium 8.7 mg/dL (8.4-10.2); Carbon Dioxide 23 mmol/L (22-30); Chloride 96 mmol/L (98-107); Creatine Kinase 58 U/L (55-170); Estimated CRCL calculation 50 ml/min; Estimated Glomerular Filt Rate 34; Glucose 191 mg/dL (65-110); Magnesium 1.1 mg/dL (1.6-2.3); Potassium 3.5 mmol/L (3.4-5.0); Sodium 131 mmol/L (137-145)
[2022-01-12] MEDS: fentaNYL CITRATE INJ (*CRX) 100 MCG/2 ML VIAL 25 MCG IV PUSH ×2 (05:23→11:07)
[2022-01-12 08:19] LABS: Glucose Point of Care 173 mg/dl (65-105)
[2022-01-12] MEDS: MAGNESIUM SULF 2 GM/WATER 50ML 2 GM/50 ML BAG IVPB (10:58)
[2022-01-12] MEDS: DOXYCYCLINE HYCLATE 100 MG TABLET PO ×2 (11:03→20:44)
[2022-01-12] MEDS: carvediloL 12.5 MG TABLET PO ×2 (11:03→20:43)
[2022-01-12] MEDS: ASPIRIN 81 MG ENTERIC TABLET PO (11:03)
[2022-01-12] MEDS: MAGNESIUM OXIDE 400 MG TABLET PO (11:03)
[2022-01-12] MEDS: HEPARIN SODIUM 5,000 UNITS/ML VIAL 5000 UNITS SUB-Q ×2 (11:04→20:42)
[2022-01-12] MEDS: SILVERGEL (ELTA) 45 ML 1 APPLIC TOPICAL (11:05)
--- NOTE | 2022-01-12 11:45 | PCOTNOTE ---
Attempted OT evaluation however patient remains on strict bedrest.
[2022-01-12 12:08] LABS: Glucose Point of Care 222 mg/dl (65-105)
--- NOTE | 2022-01-12 12:31 | PCPTNOTE ---
Patient is still on strict bedrest orders per cocupational therapy, will check on patient tomorrow
--- NOTE | 2022-01-12 12:46 | P.PNIM_ITS ---
Progress Note: A&P Assessment and Plan (1) JHONY (acute kidney injury): Code(s): N17.9 - Acute kidney failure, unspecified Status: Acute Assessment and Plan: -Patient's BUN is 70 with a baseline summer in the 20s. Creatinine 4.4 today with a baseline of normal creatinine. GFR is 14 today with a normal baseline. -nephrology has been consulted. -renal ultrasound and labs have been ordered already. -patient was given some fluids in the emergency room however patient has 4+ pitting edema to lower extremities and I did not want to overload him. -avoid nephrotoxic medication. HPI-Narrative: This is a 66-year-old male patient who has a history of chronic venous stasis dermatitis.? The patient was discharged from here on 12/16/2021 after being treated for cellulitis with MRSA.? The patient was treated with doxycycline.? The patient was discharged to a rehab facility and was discharged from that rehab facility approximately 3 days ago because insurance ran out.? The patient thought that maybe that would be okay and that he was strong enough but once a got home he decided that he was not strong enough.? The patient is in a wheelchair and cannot take care of himself.? The tries to take care of him the best she can.? He has a history of diabetes, hypertension, hyperlipidemia atrial fibrillation and multiple falls.? The patient has a chronic sacral wound as well.? The patient is now too weak to get himself out of the wheelchair.? His H&H is 12.4 and 39.8.? Sodium is 133, potassium 5.5, chloride 96, BUN 70, and creatinine 4.4.? His GFR is now 14.? Glucose is 212.? He is negative for influenza A/B and COVID.? The patient is being admitted to inpatient status on the date of service of 01/09/2022. 01/12/2022 interval history: patient was discharged from acute rehab but was too weak to manage at home and presented emergency department further evaluation upon arrival patient was dehydrated with elevated BUN of 70 and serum creatinine on 4.4 and potassium 5.5, patient is seen by central processing technician patient is gently hydrated and today patient BUN is 38 and creatinine is 2.0, however this morning there was a concern patient may have sepsis due to UTI growing gram- negative bacilli, patient was started on ceftriaxone will follow-up identification and sensitivity, lactic acid was 0.7, this morning per nursing staff patient appears confused to further evaluate CT scan of the head was done which is negative for any acute injury, currently patient states is feeling much better compared to when he arrived, his is present in the room, will have PT OT evaluate the patient patient may need long-term placement, as his is not able to manage at home, will continue to monitor and further recommendation to follow. (2) Atrial fibrillation with rapid ventricular response: Code(s): I48.91 - Unspecified atrial fibrillation Status: Acute Assessment and Plan: -the patient is in AFib at this time with his heart rate in the lower 100s. -continue with Coreg and aspirin (3) CHF (congestive heart failure): Qualifiers: Heart failure chronicity: unspecified Heart failure type: unspecified Qualified Code(s): I50.9 - Heart failure, unspecified Code(s): I50.9 - Heart failure, unspecified Status: Acute Assessment and Plan: Echo on 12/09/2021-1. Normal left ventricular size with vigorous systolic contractility. ? 2. Dilated left atrium. ? 3. Atrial fibrillation. ? 4. No significant valvular dysfunction. Although the patient has 4+ pitting edema I am holding his Lasix for today due to his acute renal failure. (4) Chronic venous insufficiency: Code(s): I87.2 - Venous insufficienc
--- NOTE | 2022-01-12 13:09 | P.PNNP_ITS ---
Progress Note: A&P Assessment and Plan (1) JHONY (acute kidney injury): Code(s): N17.9 - Acute kidney failure, unspecified Status: Acute Assessment and Plan: * suspect urinary retention/obstructive uropathy and possibly UTI * evaluation to date: * renal ultrasound normal (nonobstructed right stone noted) * urine electrolytes non prerenal * urine eosinophils negative * UA with some blood and protein * upon placement of [place] catheter, he had immediate return of 750cc of urine * follow trend of repeat labs and UOP (2) Hyperkalemia: Code(s): E87.5 - Hyperkalemia Status: Acute Assessment and Plan: * resolved * presumably due to #1 and possibly retention * s/p medical management * follow trend of K+ (3) Urinary tract infection: Code(s): N39.0 - Urinary tract infection, site not specified Status: Acute Assessment and Plan: * as evidence by urine culture (Proteus) * on IV antibiotics (4) CHF (congestive heart failure): Qualifiers: Heart failure chronicity: unspecified Heart failure type: unspecified Qualified Code(s): I50.9 - Heart failure, unspecified Code(s): I50.9 - Heart failure, unspecified Status: Acute Assessment and Plan: * recent Echo noted * seems relatively stable at this pablo * has extensive LE edema but this seems to be a chronic issue * given CXR findings, not opposed to restart of oral diuretics * follow respiratory status (5) Hypertension: Code(s): I10 - Essential (primary) hypertension Status: Chronic Assessment and Plan: * reasonable control at this time * follow trend of hemodynamics (6) Weakness: Code(s): R53.1 - Weakness Status: Acute Assessment and Plan: * was in rehab but unclear if he really made any progress given his chronic debilitated state * PT/OT as tolerated * suspect he may need alf placement (7) Insulin dependent diabetes mellitus: Status: Acute Assessment and Plan: * holding metformin * follow accuchecks * glycemic control Will continue to follow. Subjective Date/time seen: 01/12/22 13:09 Renal function continues to improve as noted by trend of labs; urine culture positive and IV antibioitc started given the conerns for early sepsis; no other isues/events overnight or earlier this morning. Exam Narrative: General: WD/WN male in NAD Heart: normal S1 and S2; no rub Lungs: clear anteriorly Abdomen: obese soft, nontender, nondistended, positive bowel sounds Extremities: no cyanosis or clubbing; 2 - 3+ edema Skin: chronic stasis dermatitis on RLE (unchanaged) Objective Data Vital Signs Vital Signs: Vital Signs Temp Pulse Resp BP Pulse Ox O2 Del Method 01/12/22 12:00 104 H 01/12/22 08:00 89 01/12/22 08:00 92 Room Air 01/12/22 11:03 112 H 01/12/22 09:11 36.4 C 98 18 132/87 99 01/12/22 05:24 35.6 C L 85 20 113/61 100 01/12/22 04:00 81 01/12/22 04:00 36.3 C L 87 20 119/71 96 01/12/22 00:00 119 H 01/12/22 01:03 103 H 22 H 131/78 96 01/12/22 00:00 36.3 C L 114 H 20 163/77 H 93 01/11/22 20:00 Room Air 01/11/22 20:00 122 H 01/11/22 20:00 36.3 C L 109 H 1
--- NOTE | 2022-01-12 13:09 | PM.PNNEP ---
Progress Note: A&P Assessment and Plan (1) JHONY (acute kidney injury): Code(s): N17.9 - Acute kidney failure, unspecified Status: Acute Assessment and Plan: suspect urinary retention/obstructive uropathy and possibly UTI evaluation to date: renal ultrasound normal (nonobstructed right stone noted) urine electrolytes non prerenal urine eosinophils negative UA with some blood and protein upon placement of [place] catheter, he had immediate return of 750cc of urine follow trend of repeat labs and UOP (2) Hyperkalemia: Code(s): E87.5 - Hyperkalemia Status: Acute Assessment and Plan: resolved presumably due to #1 and possibly retention s/p medical management follow trend of K+ (3) Urinary tract infection: Code(s): N39.0 - Urinary tract infection, site not specified Status: Acute Assessment and Plan: as evidence by urine culture (Proteus) on IV antibiotics (4) CHF (congestive heart failure): Qualifiers: Heart failure chronicity: unspecified Heart failure type: unspecified Qualified Code(s): I50.9 - Heart failure, unspecified Code(s): I50.9 - Heart failure, unspecified Status: Acute Assessment and Plan: recent Echo noted seems relatively stable at this pablo has extensive LE edema but this seems to be a chronic issue given CXR findings, not opposed to restart of oral diuretics follow respiratory status (5) Hypertension: Code(s): I10 - Essential (primary) hypertension Status: Chronic Assessment and Plan: reasonable control at this time follow trend of hemodynamics (6) Weakness: Code(s): R53.1 - Weakness Status: Acute Assessment and Plan: was in rehab but unclear if he really made any progress given his chronic debilitated state PT/OT as tolerated suspect he may need alf placement (7) Insulin dependent diabetes mellitus: Status: Acute Assessment and Plan: holding metformin follow accuchecks glycemic control Will continue to follow. Subjective Date/time seen: 01/12/22 13:09 Renal function continues to improve as noted by trend of labs; urine culture positive and IV antibioitc started given the conerns for early sepsis; no other isues/events overnight or earlier this morning. Exam Narrative: General: WD/WN male in NAD Heart: normal S1 and S2; no rub Lungs: clear anteriorly Abdomen: obese soft, nontender, nondistended, positive bowel sounds Extremities: no cyanosis or clubbing; 2 - 3+ edema Skin: chronic stasis dermatitis on RLE (unchanaged) Objective Data Vital Signs Vital Signs: Vital Signs Temp Pulse Resp BP Pulse Ox O2 Del Method 01/12/22 12:00 104 H 01/12/22 08:00 89 01/12/22 08:00 92 Room Air 01/12/22 11:03 112 H 01/12/22 09:11 36.4 C 98 18 132/87 99 01/12/22 05:24 35.6 C L 85 20 113/61 100 01/12/22 04:00 81 01/12/22 04:00 36.3 C L 87 20 119/71 96 01/12/22 00:00 119 H 01/12/22 01:03 103 H 22 H 131/78 96 01/12/22 00:00 36.3 C L 114 H 20 163/77 H 93 01/11/22 20:00 Room Air 01/11/22 20:00 122 H 01/11/22 20:00 36.3 C L 109 H 18 137/86 92 01/11/22 20:09 116 H Intake/Output Intake/Output: Intake & Output 01/09/22 01/10/22 01/11/22 01/12/22 23:59 23:59 23:59 23:59 Intake Total 1000 2460 1480 650 Output Total 800 2150 3725 3200 Balance 200 310 -7380 -2550 Meds/Results Medications: Active Medications Generic Name Dose Route Start Last Admin Trade Name Chadwick PRN Reason Stop Dose Admin Acetaminophen 650 mg 01/09/22 17:35 01/12/22 01:04 Acetaminophen 325 Mg Tablet PO 650 mg Q4H PRN Administration Mild Pain (1-3) or Fever Aspirin 81 mg 01/11/22 09:00 01/12/22 11:03 Aspirin 81 Mg Enteric Tablet PO 81 mg QAM HERMILO Administration Carvedilol 12.5 mg 1
[2022-01-12] MEDS: ONDANSETRON INJ 4 MG/2 ML VIAL IV PUSH (16:07)
[2022-01-12 17:14] LABS: Glucose Point of Care 281 mg/dl (65-105)
[2022-01-12] MEDS: INSULIN ASPART (*BKC) 100 UNITS/ML SUB-Q (18:12)
[2022-01-12 19:53] LABS: Glucose Point of Care 234 mg/dl (65-105)
[2022-01-13] VITALS (8 sets, daily range): BP systolic 119–136; BP diastolic 64–89; PULSE 69–130; RESP 12–20; TEMP 35.6–36.6; O2SAT 91–100
[2022-01-13] MEDS: fentaNYL CITRATE INJ (*CRX) 100 MCG/2 ML VIAL 25 MCG IV PUSH (01:22)
[2022-01-13] MEDS: ACETAMINOPHEN 325 MG TABLET 650 MG PO ×2 (04:22→20:49)
--- NOTE | 2022-01-13 05:43 | PC.NURSE ---
Pt stayed with pt from beginning of homicide squad lieutenant till 0000 on 01/13/22. Pt states she wanted to stay with the pt due to pt behavior during day and homicide squad lieutenant on 01/11/22. Pt was more alert and coherent tonight. Pt was more cooperative with care and not yelling, whistling, and not pulling on surrounding objects.
[2022-01-13 07:14] LABS: Hematocrit 38.3 % (42.0-52.0); Hemoglobin 12.3 g/dL (14.0-18.0); Mean Corpuscular HGB Conc 32.1 g/dl (32-36); Mean Corpuscular Hemoglobin 27.5 pg (26-34); Mean Corpuscular Volume 85.7 fl (80-100); Mean Platelet Volume 9.8 fl (7.4-10.4); Platelet Count Result 190 k/mm3 (150-375); Red Blood Count 4.47 M/mm3 (4.6-6.20); Red Cell Distribution Width 13.6 % (11.5-14.5); White Blood Count 10.1 K/mm3 (4.5-10.0)
[2022-01-13 07:37] LABS: Albumin Level 3.2 g/dL (3.5-5.1); Anion Gap 10 mmol/L (8-16); Blood Urea Nitrogen 26 mg/dL (9-20); Calcium 8.9 mg/dL (8.4-10.2); Carbon Dioxide 25 mmol/L (22-30); Chloride 97 mmol/L (98-107); Estimated CRCL calculation 75 ml/min; Estimated Glomerular Filt Rate 55; Glucose 187 mg/dL (65-110); Magnesium 1.6 mg/dL (1.6-2.3); Phosphorus 2.9 mg/dL (2.5-4.5); Potassium 3.4 mmol/L (3.4-5.0); Sodium 132 mmol/L (137-145)
[2022-01-13 08:01] LABS: Glucose Point of Care 183 mg/dl (65-105)
[2022-01-13] MEDS: carvediloL 12.5 MG TABLET PO ×2 (08:33→20:34)
[2022-01-13] MEDS: DOXYCYCLINE HYCLATE 100 MG TABLET PO ×2 (08:33→20:35)
[2022-01-13] MEDS: ASPIRIN 81 MG ENTERIC TABLET PO (08:33)
[2022-01-13] MEDS: HEPARIN SODIUM 5,000 UNITS/ML VIAL 5000 UNITS SUB-Q ×2 (08:34→20:35)
[2022-01-13] MEDS: POTASSIUM CHLORIDE 20 MEQ TABLET 40 MEQ PO (08:35)
[2022-01-13 08:54] LABS: Myoglobin, Urine 328 mcg/L (<28)
[2022-01-13] MEDS: SILVERGEL (ELTA) 45 ML 1 APPLIC TOPICAL (11:32)
[2022-01-13 11:39] LABS: Glucose Point of Care 238 mg/dl (65-105)
[2022-01-13] MEDS: MAGNESIUM OXIDE 400 MG TABLET PO (12:00)
[2022-01-13] MEDS: INSULIN ASPART (*BKC) 100 UNITS/ML SUB-Q (12:00)
--- NOTE | 2022-01-13 13:15 | PM.DS ---
DS: Admitting Diagnosis Discharge Date 01/13/2022 Admitting Diagnosis weakness DS: Discharge Diagnosis Discharge Diagnosis (1) JHONY (acute kidney injury): Code(s): N17.9 - Acute kidney failure, unspecified Status: Acute Assessment and Plan: -Patient's BUN is 70 with a baseline summer in the 20s. Creatinine 4.4 today with a baseline of normal creatinine. GFR is 14 today with a normal baseline. -nephrology has been consulted. -renal ultrasound and labs have been ordered already. -patient was given some fluids in the emergency room however patient has 4+ pitting edema to lower extremities and I did not want to overload him. -avoid nephrotoxic medication. HPI-Narrative: This is a 66-year-old male patient who has a history of chronic venous stasis dermatitis.? The patient was discharged from here on 12/16/2021 after being treated for cellulitis with MRSA.? The patient was treated with doxycycline.? The patient was discharged to a rehab facility and was discharged from that rehab facility approximately 3 days ago because insurance ran out.? The patient thought that maybe that would be okay and that he was strong enough but once a got home he decided that he was not strong enough.? The patient is in a wheelchair and cannot take care of himself.? The tries to take care of him the best she can.? He has a history of diabetes, hypertension, hyperlipidemia atrial fibrillation and multiple falls.? The patient has a chronic sacral wound as well.? The patient is now too weak to get himself out of the wheelchair.? His H&H is 12.4 and 39.8.? Sodium is 133, potassium 5.5, chloride 96, BUN 70, and creatinine 4.4.? His GFR is now 14.? Glucose is 212.? He is negative for influenza A/B and COVID.? The patient is being admitted to inpatient status on the date of service of 01/09/2022. 01/12/2022 interval history: patient was discharged from acute rehab but was too weak to manage at home and presented emergency department further evaluation upon arrival patient was dehydrated with elevated BUN of 70 and serum creatinine on 4.4 and potassium 5.5, patient is seen by rug inspector helper patient is gently hydrated and today patient BUN is 38 and creatinine is 2.0, however this morning there was a concern patient may have sepsis due to UTI growing gram-negative bacilli, patient was started on ceftriaxone will follow-up identification and sensitivity, lactic acid was 0.7, this morning per nursing staff patient appears confused to further evaluate CT scan of the head was done which is negative for any acute injury, currently patient states is feeling much better compared to when he arrived, his is present in the room, will have PT OT evaluate the patient patient may need long-term placement, as his is not able to manage at home, will continue to monitor and further recommendation to follow. (2) Atrial fibrillation with rapid ventricular response: Code(s): I48.91 - Unspecified atrial fibrillation Status: Acute Assessment and Plan: -the patient is in AFib at this time with his heart rate in the lower 100s. -continue with Coreg and aspirin (3) CHF (congestive heart failure): Qualifiers: Heart failure chronicity: unspecified Heart failure type: unspecified Qualified Code(s): I50.9 - Heart failure, unspecified Code(s): I50.9 - Heart failure, unspecified Status: Acute Assessment and Plan: Echo on 12/09/2021-1. Normal left ventricular size with vigorous systolic contractility. ? 2. Dilated left atrium. ? 3. Atrial fibrillation. ? 4. No significant valvular dysfunction. Although the patient has 4+ pitting edema I am holding his Lasix for today due to his acute renal failure. (4) Chronic venous insufficiency: Code(s): I87.2 - Venous insufficiency (chronic) (peripheral) Status: Acute Assessment and Plan: -the patient has a large blister to his right lower extremities. And I was not able to
--- NOTE | 2022-01-13 13:31 | P.PNNP_ITS ---
Progress Note: A&P Assessment and Plan (1) JHONY (acute kidney injury): Code(s): N17.9 - Acute kidney failure, unspecified Status: Acute Assessment and Plan: * suspect urinary retention/obstructive uropathy and possibly UTI * evaluation to date: * renal ultrasound normal (nonobstructed right stone noted) * urine electrolytes non prerenal * urine eosinophils negative * UA with some blood and protein * upon placement of houston catheter, he had immediate return of 750cc of urine * follow trend of repeat labs and UOP (2) Hyperkalemia: Code(s): E87.5 - Hyperkalemia Status: Acute Assessment and Plan: * resolved * presumably due to #1 and possibly retention * s/p medical management * follow trend of K+ (3) Urinary tract infection: Code(s): N39.0 - Urinary tract infection, site not specified Status: Acute Assessment and Plan: * as evidence by urine culture (Proteus) * on IV antibiotics (4) CHF (congestive heart failure): Qualifiers: Heart failure chronicity: unspecified Heart failure type: unspecified Qualified Code(s): I50.9 - Heart failure, unspecified Code(s): I50.9 - Heart failure, unspecified Status: Acute Assessment and Plan: * recent Echo noted * seems relatively stable at this pablo * has extensive LE edema but this seems to be a chronic issue * given CXR findings, not opposed to restart of oral diuretics * follow respiratory status (5) Hypertension: Code(s): I10 - Essential (primary) hypertension Status: Chronic Assessment and Plan: * reasonable control at this time * follow trend of hemodynamics (6) Weakness: Code(s): R53.1 - Weakness Status: Acute Assessment and Plan: * was in rehab but unclear if he really made any progress given his chronic debilitated state * PT/OT as tolerated * suspect he may need senior care placement (7) Insulin dependent diabetes mellitus: Status: Acute Assessment and Plan: * holding metformin * follow accuchecks * glycemic control Will continue to follow. Subjective Date/time seen: 01/13/22 13:31 No new issues or problems to report; renal function continues to improve with current interventions/therapy; no other events overnight or earlier this morning; no apparent distress voiced at the time of my visit. Exam Narrative: General: WD/WN male in NAD Heart: normal S1 and S2; no rub Lungs: clear anteriorly Abdomen: obese soft, nontender, nondistended, positive bowel sounds Extremities: no cyanosis or clubbing; 2 - 3+ edema Skin: chronic stasis dermatitis on RLE (unchanaged) Objective Data Vital Signs Vital Signs: Vital Signs Temp Pulse Resp BP Pulse Ox O2 Del Method O2 Flow Rate 01/13/22 08:00 82 01/13/22 09:02 Nasal Cannula 2 01/13/22 08:00 36.1 C L 84 12 130/82 100 01/13/22 08:33 86 01/13/22 08:00 98 2 01/13/22 04:00 88 01/13/22 04:00 35.8 C L 82 18 134/80 99 01/13/22 00:00 35.6 C L 88 20 119/72 98 01/13/22 00:00 71 01/12/22 20:00 93 Nasal Cannula 2 01/12/22 20:00 77 01/12/22 20:43 89 01/12/22 20:00 35.9 C L 78 18 125/70 100 01/12/22 16:00 90
--- NOTE | 2022-01-13 13:31 | PM.PNNEP ---
Progress Note: A&P Assessment and Plan (1) JHONY (acute kidney injury): Code(s): N17.9 - Acute kidney failure, unspecified Status: Acute Assessment and Plan: suspect urinary retention/obstructive uropathy and possibly UTI evaluation to date: renal ultrasound normal (nonobstructed right stone noted) urine electrolytes non prerenal urine eosinophils negative UA with some blood and protein upon placement of houston catheter, he had immediate return of 750cc of urine follow trend of repeat labs and UOP (2) Hyperkalemia: Code(s): E87.5 - Hyperkalemia Status: Acute Assessment and Plan: resolved presumably due to #1 and possibly retention s/p medical management follow trend of K+ (3) Urinary tract infection: Code(s): N39.0 - Urinary tract infection, site not specified Status: Acute Assessment and Plan: as evidence by urine culture (Proteus) on IV antibiotics (4) CHF (congestive heart failure): Qualifiers: Heart failure chronicity: unspecified Heart failure type: unspecified Qualified Code(s): I50.9 - Heart failure, unspecified Code(s): I50.9 - Heart failure, unspecified Status: Acute Assessment and Plan: recent Echo noted seems relatively stable at this pablo has extensive LE edema but this seems to be a chronic issue given CXR findings, not opposed to restart of oral diuretics follow respiratory status (5) Hypertension: Code(s): I10 - Essential (primary) hypertension Status: Chronic Assessment and Plan: reasonable control at this time follow trend of hemodynamics (6) Weakness: Code(s): R53.1 - Weakness Status: Acute Assessment and Plan: was in rehab but unclear if he really made any progress given his chronic debilitated state PT/OT as tolerated suspect he may need usp placement (7) Insulin dependent diabetes mellitus: Status: Acute Assessment and Plan: holding metformin follow accuchecks glycemic control Will continue to follow. Subjective Date/time seen: 01/13/22 13:31 No new issues or problems to report; renal function continues to improve with current interventions/therapy; no other events overnight or earlier this morning; no apparent distress voiced at the time of my visit. Exam Narrative: General: WD/WN male in NAD Heart: normal S1 and S2; no rub Lungs: clear anteriorly Abdomen: obese soft, nontender, nondistended, positive bowel sounds Extremities: no cyanosis or clubbing; 2 - 3+ edema Skin: chronic stasis dermatitis on RLE (unchanaged) Objective Data Vital Signs Vital Signs: Vital Signs Temp Pulse Resp BP Pulse Ox O2 Del Method O2 Flow Rate 01/13/22 08:00 82 01/13/22 09:02 Nasal Cannula 2 01/13/22 08:00 36.1 C L 84 12 130/82 100 01/13/22 08:33 86 01/13/22 08:00 98 2 01/13/22 04:00 88 01/13/22 04:00 35.8 C L 82 18 134/80 99 01/13/22 00:00 35.6 C L 88 20 119/72 98 01/13/22 00:00 71 01/12/22 20:00 93 Nasal Cannula 2 01/12/22 20:00 77 01/12/22 20:43 89 01/12/22 20:00 35.9 C L 78 18 125/70 100 01/12/22 16:00 90 01/12/22 16:59 36.2 C L 88 16 126/69 99 01/12/22 14:22 36.3 C L 85 18 144/83 H 97 Intake/Output Intake/Output: Intake & Output 01/10/22 01/11/22 01/12/22 01/13/22 23:59 23:59 23:59 23:59 Intake Total 2460 5543 316 1581 Output Total 2150 3725 3200 900 Balance 597 -6135 -2033 540 Meds/Results Medications: Active Medications Generic Name Dose Route Start Last Admin Trade Name Chadwick PRN Reason Stop Dose Admin Acetaminophen 650 mg 01/09/22 17:35 01/13/22 04:22 Acetaminophen 325 Mg Tablet PO 650 mg Q4H PRN Administration Mild Pain (1-3) or Fever Aspirin 81 mg 01/11/22 09:00 01/13/22 08:33 Aspirin 81 Mg Enteric Tablet
[2022-01-13] MEDS: ONDANSETRON INJ 4 MG/2 ML VIAL IV PUSH (15:28)
--- NOTE | 2022-01-13 16:01 | PC.NURSE ---
No wound photos needed at discharge per Lianet Rees RN
[2022-01-13 16:30] LABS: EDCOVIDSCREEN Negative (Negative)
[2022-01-13 16:31] LABS: Albumin 2.8 g/dL (3.8-4.8); Alpha 1 Globulin 0.4 g/dL (0.2-0.3); Alpha 2 Globulin 0.9 g/dL (0.5-0.9); Beta 1 Globulin 0.5 g/dL (0.4-0.6); Gamma Globulin 1.4 g/dL (0.8-1.7); Protein, Total 6.6 g/dL (6.1-8.1)
[2022-01-13 16:44] LABS: Glucose Point of Care 206 mg/dl (65-105)
[2022-01-14 11:12] LABS: Anti Streptolysin O Screen 78 IU/mL (<200)
[2022-01-15 17:03] LABS: Strep DNASE B Antibody 209 U/mL (<301)
[2022-01-15 22:09] LABS: ANCA Screen Negative (Negative)
[2022-01-16 15:07] LABS: Chloride Rand Ur 52 mmol/L (32-290); Chloride/Creatinine Rand Ur 137 (23-275); Creatinine Random Urine 38 mg/dL (20-320)
[2022-01-16 16:16] LABS: Complement Total CH50 >60 U/mL (31-60)
[2022-01-17 21:20] LABS: SM Antibody <1.0; SM/RNP Antibody <1.0
[2022-01-19 09:02] LABS: Anti Glomerular Basement Memb <1.0 AI (<1.0)
== END 2022-01-13 21:40 | DRG 682 ==
LOC: ANHED 17:32 → ANH3MEDSUR 18:06
PROVIDERS: Internal Medicine; Internal Medicine Nephrology; Nurse Practitioner; Admitting Provider Internal Medicine; Emergency Provider Emergency Medicine; Visit Provider Family Medicine
DX: N17.9 Acute kidney failure, unspecified (principal); A41.9 Sepsis, unspecified organism; N39.0 Urinary tract infection, site not specified; R53.1 Weakness; L89.159 Pressure ulcer of sacral region, unspecified stage; B96.4 Proteus (mirabilis) (morganii) as the cause of diseases classified elsewhere; I48.91 Unspecified atrial fibrillation; I50.9 Heart failure, unspecified; F32.A Depression, unspecified; I11.0 Hypertensive heart disease with heart failure; I87.2 Venous insufficiency (chronic) (peripheral); E87.5 Hyperkalemia; E03.9 Hypothyroidism, unspecified; E78.5 Hyperlipidemia, unspecified; J44.9 Chronic obstructive pulmonary disease, unspecified; K21.9 Gastro-esophageal reflux disease without esophagitis; E11.42 Type 2 diabetes mellitus with diabetic polyneuropathy; G47.33 Obstructive sleep apnea (adult) (pediatric); R29.6 Repeated falls; Z66 Do not resuscitate; Z20.822 Contact with and (suspected) exposure to COVID-19; Z79.4 Long term (current) use of insulin; Z79.84 Long term (current) use of oral hypoglycemic drugs; Z87.891 Personal history of nicotine dependence
CPT/HCPCS: 36415; 51701; 70450; 71045; 76775; 80048; 80053; 80069; 81001; 82436; 82550; 82570; 82595; 82948; 83036; 83520; 83605; 83735; 83874; 83930; 84100; 84132; 84155; 84165; 84300; 84443; 84484; 84540; 85025; 85027; 85652; 85999; 86036; 86038; 86039; 86060; 86140; 86160; 86162; 86215; 86225; 86235; 86334; 86705; 86706; 86803; 87040; 87077; 87086; 87186; 87340; 87426; 87502; 93005; 93970; 94640; 96374; 96375; 97161; 97167; 99285; A9270; C9803; J0696; J1644; J1815; J1940; J2270; J2405; J3010; J3475; J7030; U0003; U0005

== ENCOUNTER 2022-03-02 04:01 | Inpatient (IN) | payer OTHER, MEDICAID, SELFPAY ==
[2022-03-02] VITALS (8 sets, daily range): BP systolic 123–145; BP diastolic 75–95; PULSE 83–118; RESP 18–24; TEMP 36.6–37.1; O2SAT 90–100
--- NOTE | ~2022-03-02 | XR_ITS ---
EXAMINATION: XR chest 1V portable DATE: 03/02/2022 04:41 INDICATION: Shortness of breath. TECHNIQUE: A single frontal view of the chest was obtained. COMPARISON: Chest single view 01/09/2022 FINDINGS: There are interstitial opacities in the lower lung zones. No pleural effusion or pneumothor ax. Cardiomegaly is noted. IMPRESSION: 1. Interstitial opacities in the lower lung zones, consistent with mild pulmonary edema versus atelec tasis. 2. Cardiomegaly. Reviewed, dictated and finalized at location A. ING OFFICER IMPRESSION: 1. Interstitial opacities in the lower lung zones, consistent with mild pulmona ry edema versus atelectasis. 2. Cardiomegaly.
--- NOTE | ~2022-03-02 | CT_ITS ---
EXAMINATION: CT brain wo con DATE: 03/02/2022 04:34 INDICATION: Right facial weakness. TECHNIQUE: Computed tomography (CT) of the head was performed without intravenous contrast. The mA wa s adjusted according to patient size. Iterative reconstruction technique was employed. The dose-lengt h product was 681.00 mGy-cm. COMPARISON: Head CT 01/12/2022 FINDINGS: There are scattered areas of low attenuation in the cerebral white matter, which is within normal limits for the patient's age. There is no intracranial hemorrhage, acute infarction, or abnorm al intracranial mass lesion. The ventricles are normal in size. There are likely changes of left ocul ar lens replacement surgery. There is mild mucosal thickening in the paranasal sinuses. The mastoid a ir cells are normal. There is a 10 mm subepidermal mass in right cheek that may be a sebaceous cyst. IMPRESSION: 1. Normal aging brain. Reviewed, dictated and finalized at location A. GER POLICY IMPRESSION: 1. Normal aging brain.
--- NOTE | 2022-03-02 04:02 | ECG_ITS ---
Measurements Intervals Stanley Rate: 118 P: WI: 0 QRS: 83 QRSD: 105 T: -16 QT: 314 QTc: 441 Interpretive Statements ATRIAL FIBRILLATION WITH RAPID VENTRICULAR RESPONSE CANNOT RULE OUT SEPTAL INFARCT, AGE INDETERMINATE BORDERLINE ST-T WAVE ABNORMALITY- INFERIOR LEADS BASELINE WANDER- III, AVF ABNORMAL ECG COMPARED TO ECG 01/09/2022 15:35:18 NO SIGNIFICANT CHANGES Electronically Signed On 03-02-2022 7:48:21 FINISHING SUPERVISOR by Silver Torres D.O.
--- NOTE | 2022-03-02 04:16 | ED.GENADULT ---
HPI - General Adult General Chief complaint: Altered Mental Status Stated complaint: AMS, FEBRILE Source: EMS and RN notes reviewed History of Present Illness HPI narrative: Patient presents emergency department from [facility] via EMS for altered mental status. History is per EMS states that the patient is normally ANO x3 and was noted to be more altered by nursing staff this evening patient was subsequently transferred to the ER for further evaluation. Patient currently laying in bed he will open his eyes to verbal stimuli able to tell me his name but does not give much more history denies any pain at this Related Data Home Medications Medication Instructions Recorded Confirmed gabapentin 300 mg capsule 300 mg PO QID 02/15/21 12/08/21 ipratropium 0.5 mg-albuterol 3 mg 3 ml inhalation Q4H PRN Wheezing 02/15/21 12/08/21 (2.5 mg base)/3 mL nebulization soln levothyroxine 100 mcg tablet 100 mcg PO DAILY 02/15/21 12/08/21 metformin 1,000 mg tablet 1,000 mg PO BID 02/15/21 12/08/21 furosemide 40 mg tablet 40 mg PO DAILY 12/08/21 12/08/21 hydrocodone 7.5 mg-acetaminophen 1 tablet PO QID 12/08/21 12/08/21 325 mg tablet insulin NPH-regular 70-30 U-100 20 unit subcut BID 12/08/21 12/08/21 insulin 100 unit/mL subcutaneous pen (Novolin 70-30 FlexPen U-100 Insulin) pravastatin 40 mg tablet 40 mg PO HS 12/08/21 12/08/21 Allergies Allergy/AdvReac Type Severity Reaction Status Date / Time No Known Allergies Allergy Verified 12/08/21 02:49 Review of Systems Review of Systems: Gen.: Denies fevers or chills ENT: Denies congestion Respiratory: Denies shortness of breath or cough CV: Denies chest pain or palpitations GI: Denies abdominal pain nausea, emesis or diarrhea Musculoskeletal: Denies back pain or muscle pain Neuro: Reports altered mental status Skin: Denies rash Except as documented, all other systems reviewed and negative [facility] Past Medical History Medical History Atrial fibrillation with rapid ventricular response CHF (congestive heart failure) Chronic venous insufficiency COPD (chronic obstructive pulmonary disease) Depression GERD (gastroesophageal reflux disease) HTN (hypertension) Hyperlipidemia Hypothyroid Insulin dependent diabetes mellitus Kidney stones Meniscus, medial, bucket handle tear, old JUN on CPAP Noncompliant with CPAP Peripheral neuropathy Surgical History Surgical History (Updated 01/09/22 @ 20:51 by Laura Bishop NP) H/O cataract extraction H/O hemorrhoidectomy History of appendectomy History of back surgery Family History Family History Sibling Family history of obesity Hypertension Family history of diabetes mellitus in first degree relative Family history of heart disease in male family member before age 55 Patient's sister is in good health Patient's brother is Mother Family history of arthritis Family history of malignant neoplasm Patient's mother is Father Patient's father is Other Malignant neoplasm of prostate Unknown family medical history Social History Social History Social History: Patient is and his Marlys is his surrogate decision maker. They have 2 sons, and no pets. He is retired from the [employer]. Code status Dnr Smoking packs per day: 2 Smoking cigarettes per day: 40.0 Years smoked: 15 Smoking pack-years: 30.00 Smoking status: Former smoker Tobacco type: cigarettes Second hand tobacco smoke exposure: No Smoking end date: 03/02/91 Alcohol intake: never Substance use: never Substance use type: does not use Lack of Transportation: No Lack of Food: Never True Current Housing: I Have Housing Concerned About Future Housing: No Difficulty Paying Gas/Electric Bills:
[2022-03-02 04:23] LABS: Basophils Absolute Auto 0.1 K/mm3 (0.0-0.1); Basophils Percent Auto 1.1 % (0.2-1.2); Eosinophils Absolute Auto 0.4 K/mm3 (0-0.3); Hematocrit 44.3 % (42.0-52.0); Hemoglobin 13.6 g/dL (14.0-18.0); Immature Granulocyte Absolute 0.03 K/mm3 (0.00-0.031); Immature Granulocyte Percent A 0.5 % (0-0.5); Lymphocytes Absolute Auto 0.74 K/mm3 (0.9-3.2); Lymphocytes Percent Auto 11.7 % (18.3-44.2); Mean Corpuscular HGB Conc 30.7 g/dl (32-36); Mean Corpuscular Hemoglobin 27.4 pg (26-34); Mean Corpuscular Volume 89.3 fl (80-100); Monocytes Percent Auto 15.1 % (2.6-8.5); Neutrophils Absolute Auto 4.2 K/mm3 (1.3-6.7); Neutrophils Percent Auto 65.6 % (45.5-73.1); Platelet Count Result 202 k/mm3 (150-375); Red Blood Count 4.96 M/mm3 (4.6-6.20); Red Cell Distribution Width 15.2 % (11.5-14.5); White Blood Count 6.3 K/mm3 (4.5-10.0)
[2022-03-02 04:35] LABS: Lactic Acid Reflex 1.2 mmol/L (0.7-2.0)
[2022-03-02 05:00] LABS: Influenza A QL RT-PCR Positive (Negative); Influenza B QL RT-PCR Negative (Negative); RSV RNA, RT-PCR Negative (Negative); SARS-CoV-2 RNA PCR Negative
[2022-03-02 05:01] LABS: Add Urine Microscopic? YES; Appearance Urine Clear (Clear); Bilirubin Urine Negative (Negative); Blood Urine Trace-Intact (Negative); Color Urine Yellow (Yellow); Glucose Urine UA Negative (Negative); Ketones Urine Negative (Negative); Leukocyte Esterase Ur 2+ LEU/UL (Negative); Nitrate Urine Positive (Negative); Protein Urine 1+ mg/dL (Negative); Specific Grav Ur <= 1.005 (1.001-1.035); Urobilinogen Urine 0.2 mg/dL (<2.0); pH Urine 8.5 (5.0-9.0)
[2022-03-02 05:07] LABS: INR 1.2; Prothrombin Time 14.5 Seconds (11.1-14.7)
[2022-03-02 05:08] LABS: Partial Thromboplastin Time 36.3 SECONDS (22.3-36.8)
[2022-03-02 05:09] LABS: Bacteria Urine 1+ /hpf; Mucus Urine Moderate /lpf; Squamous Epithelial Cell Urine Occasional /hpf (Few); Uric Acid Crystals Urine Present /hpf; WBC Urine 16-20 /hpf
[2022-03-02] MEDS: SODIUM CHLORIDE 0.9% IV 1,000 ML 999 ML IV CONT (05:43)
[2022-03-02 06:12] LABS: Alanine Aminotransferase 7 U/L (6-50); Albumin Level 2.1 g/dL (3.5-5.1); Alkaline Phosphatase 35 U/L (38-126); Anion Gap 3 mmol/L (8-16); Aspartate Amino Transferase 13 U/L (17-59); Bilirubin,Total 0.3 mg/dL (0.2-1.3); Blood Urea Nitrogen 13 mg/dL (9-20); Calcium 6.1 mg/dL (8.4-10.2); Carbon Dioxide 20 mmol/L (22-30); Chloride 116 mmol/L (98-107); Estimated CRCL calculation 257 ml/min; Estimated Glomerular Filt Rate > 60; Glucose 90 mg/dL (65-110); Potassium 2.7 mmol/L (3.4-5.0); Sodium 139 mmol/L (137-145)
[2022-03-02 06:21] LABS: NT Pro B Type Natriuretic Pept 1020 pg/mL (5-100); Troponin I 0.013 ng/mL (0.000-0.034)
[2022-03-02] MEDS: POTASSIUM CHLORIDE INJ 40 MEQ in SODIUM CHLORIDE 0.9% IV 500 ML 130 MEQ IVPB (06:42)
--- NOTE | 2022-03-02 06:53 | PC.NURSE ---
Addendum entered by Coty Clancy RN 03/02/22 06:54: informed of condition and states she will come see him today. Original Note: contacted Marlys who confirms pt is normally A & O x4
[2022-03-02 06:54] LABS: Magnesium 1.2 mg/dL (1.6-2.3)
[2022-03-02] MEDS: MAGNESIUM SULF 2 GM/WATER 50ML 2 GM/50 ML BAG IVPB (07:06)
--- NOTE | 2022-03-02 10:29 | ADMGEN ---
This patient, Taye Marrero Jr., was admitted to [facility] Surg Room 326-01 at 0815. Patient/family oriented to hospital policies and general routines including ID bracelet, bed and alarms, visiting hours, pain management, procedures, bathroom and other care routines, personal items, smoking policy, room service/diet, and visiting hours. Information on how to activate the Rapid Response Team has been discussed. Patient/Family are encouraged to report perceived risks to care and to ask questions if they do not understand what they are told or what they should do.
[2022-03-02 12:42] LABS: Troponin I 0.021 ng/mL (0.000-0.034)
--- NOTE | 2022-03-02 14:41 | PM.IMHP ---
H&P: HPI History of Present Illness Date/Time: 03/02/22 14:41 Chief Complaint: Altered mental status Narrative: Patient presents to the Day emergency department from [facility] via EMS for altered mental status.? History is per EMS reports he is normally alert and oriented x3. He was however noted to be ordered by the nursing staff last evening and hence brought to the ER. Patient opens his eyes and answers few questions but is not able to give any whole story. Review of Systems Review of Systems: ROS unobtainable: Yes unobtainable due to mental status [facility] Past Medical History Medical History Atrial fibrillation with rapid ventricular response CHF (congestive heart failure) Chronic venous insufficiency COPD (chronic obstructive pulmonary disease) Depression GERD (gastroesophageal reflux disease) HTN (hypertension) Hyperlipidemia Hypothyroid Insulin dependent diabetes mellitus Kidney stones Meniscus, medial, bucket handle tear, old JUN on CPAP Noncompliant with CPAP Peripheral neuropathy Surgical History Surgical History (Updated 01/09/22 @ 20:51 by Laura Bishop NP) H/O cataract extraction H/O hemorrhoidectomy History of appendectomy History of back surgery Family History Family History Sibling Family history of obesity Hypertension Family history of diabetes mellitus in first degree relative Family history of heart disease in male family member before age 55 Patient's sister is in good health Patient's brother is Mother Family history of arthritis Family history of malignant neoplasm Patient's mother is Father Patient's father is Other Malignant neoplasm of prostate Unknown family medical history Social History Social History Social History: Patient is and his Marlys is his surrogate decision maker. They have 2 sons, and no pets. He is retired from the [employer]. Code status Dnr Smoking packs per day: 2 Smoking cigarettes per day: 40.0 Years smoked: 15 Smoking pack-years: 30.00 Smoking status: Unknown if ever smoked Tobacco type: cigarettes Second hand tobacco smoke exposure: No Smoking end date: 03/02/91 Alcohol intake: unknown Substance use: unknown Substance use type: unknown Lack of Transportation: No Lack of Food: Never True Current Housing: I Have Housing Concerned About Future Housing: No Difficulty Paying Gas/Electric Bills: No Difficulty Paying for Meds: No Currently Unemployed: No Education: Decline to Answer Difficulty w/ Childcare or Family Care: No Additional occupation/education comments: [employer] Gender identity (if verbalized by the patient): Male Sexual Orientation (if Verbalized by the Patient): Straight or Heterosexual Spiritual care concerns: No Agree to blood products: Yes Meds Home Medications and Allergies Home Medications Medication Instructions Recorded Confirmed Type gabapentin 300 mg capsule 300 mg PO QID 02/15/21 03/02/22 History ipratropium 0.5 mg-albuterol 3 mg 3 ml inhalation Q4H PRN Wheezing 02/15/21 03/02/22 History (2.5 mg base)/3 mL nebulization soln levothyroxine 100 mcg tablet 100 mcg PO DAILY 02/15/21 03/02/22 History metformin 1,000 mg tablet 1,000 mg PO BID 02/15/21 03/02/22 History aspirin 81 mg tablet,delayed 81 mg PO QAM #30 tabs 02/19/21 03/02/22 Rx release trazodone 150 mg tablet 150 mg PO HS #10 tabs 02/20/21 03/02/22 Rx furosemide 40 mg tablet 40 mg PO DAILY 12/08/21 03/02/22 History hydrocodone 7.5 mg-acetaminophen 1 tablet PO QID PRN Pain 12/08/21 03/02/22 History 325 mg tablet insulin NPH-regular 70-30 U-100 20 unit subcut HS 12/08/21 03/02/22 History insulin 100 unit/mL subcutaneous pen (Novolin 70-30 FlexPen U-1
[2022-03-02 16:32] LABS: Hemoglobin A1C 7.5 % (<5.7)
[2022-03-02 16:37] LABS: Potassium 4.5 mmol/L (3.4-5.0)
[2022-03-02 17:02] LABS: Glucose Point of Care 188 mg/dl (65-105)
[2022-03-02] MEDS: GABAPENTIN 300 MG CAPSULE PO ×2 (17:49→21:45)
[2022-03-02] MEDS: metFORMIN HCL 500 MG TABLET 1000 MG PO (17:49)
[2022-03-02] MEDS: CHOLECALCIFEROL 1,000 UNITS TABLET 6000 UNITS PO (17:49)
[2022-03-02] MEDS: traZODone HCL 50 MG TABLET 150 MG PO (21:45)
[2022-03-02] MEDS: OSELTAMIVIR PHOSPHATE 75 MG CAPSULE PO (21:45)
[2022-03-02] MEDS: carvediloL 12.5 MG TABLET PO (21:45)
[2022-03-02] MEDS: PRAVASTATIN SODIUM 20 MG TABLET 40 MG PO (21:45)
[2022-03-02] MEDS: INSULIN HUMAN ISOPHAN/REGULAR 70/30 (*BKC) 100 UNITS/ML 20 UNITS SUB-Q (21:52)
[2022-03-03] VITALS (11 sets, daily range): BP systolic 101–126; BP diastolic 59–86; PULSE 68–93; RESP 18–20; TEMP 36–36.1; O2SAT 90–99; BMI 35.8
[2022-03-03] MEDS: LEVOTHYROXINE SODIUM 100 MCG TABLET PO (05:52)
[2022-03-03 06:49] LABS: Basophils Percent Auto 0.8 % (0.2-1.2); Eosinophils Percent Auto 0.4 % (0-4.4); Hematocrit 40.6 % (42.0-52.0); Hemoglobin 12.4 g/dL (14.0-18.0); Immature Granulocyte Absolute 0.01 K/mm3 (0.00-0.031); Immature Granulocyte Percent A 0.2 % (0-0.5); Lymphocytes Absolute Auto 1.15 K/mm3 (0.9-3.2); Lymphocytes Percent Auto 23.9 % (18.3-44.2); Mean Corpuscular HGB Conc 30.5 g/dl (32-36); Mean Corpuscular Hemoglobin 27.4 pg (26-34); Mean Corpuscular Volume 89.6 fl (80-100); Mean Platelet Volume 9.9 fl (7.4-10.4); Monocytes Absolute Auto 1.2 K/mm3 (0.1-0.6); Monocytes Percent Auto 25.4 % (2.6-8.5); Neutrophils Absolute Auto 2.4 K/mm3 (1.3-6.7); Neutrophils Percent Auto 49.3 % (45.5-73.1); Platelet Count Result 168 k/mm3 (150-375); Red Blood Count 4.53 M/mm3 (4.6-6.20); Red Cell Distribution Width 14.9 % (11.5-14.5); White Blood Count 4.8 K/mm3 (4.5-10.0)
[2022-03-03 07:19] LABS: Alanine Aminotransferase 11 U/L (6-50); Albumin Level 3.3 g/dL (3.5-5.1); Alkaline Phosphatase 48 U/L (38-126); Anion Gap 6 mmol/L (8-16); Aspartate Amino Transferase 21 U/L (17-59); Bilirubin,Total 0.4 mg/dL (0.2-1.3); Blood Urea Nitrogen 20 mg/dL (9-20); Carbon Dioxide 27 mmol/L (22-30); Chloride 103 mmol/L (98-107); Estimated CRCL calculation 147 ml/min; Estimated Glomerular Filt Rate > 60; Glucose 159 mg/dL (65-110); Potassium 4.2 mmol/L (3.4-5.0); Sodium 136 mmol/L (137-145)
[2022-03-03 08:30] LABS: Glucose Point of Care 150 mg/dl (65-105)
[2022-03-03] MEDS: ASPIRIN 81 MG ENTERIC TABLET PO (09:18)
[2022-03-03] MEDS: MAGNESIUM OXIDE 400 MG TABLET PO (09:18)
[2022-03-03] MEDS: GABAPENTIN 300 MG CAPSULE PO ×4 (09:18→21:45)
[2022-03-03] MEDS: OSELTAMIVIR PHOSPHATE 75 MG CAPSULE PO ×2 (09:18→21:45)
[2022-03-03] MEDS: THERAPEUTIC MULTIVITAMINS/MINERALS TAB (*BKC) 1 TABLET PO (09:18)
[2022-03-03] MEDS: metFORMIN HCL 500 MG TABLET 1000 MG PO ×2 (09:18→17:43)
[2022-03-03] MEDS: carvediloL 12.5 MG TABLET PO ×2 (09:19→21:45)
[2022-03-03] MEDS: FUROSEMIDE 40 MG TABLET PO (09:19)
[2022-03-03] MEDS: PANTOPRAZOLE 40 MG TABLET PO (09:19)
--- NOTE | 2022-03-03 09:21 | PHAR ---
ORDER FOR PHARMACY TO DOSE VANCOMYCIN. VERIFYING ENTERED WEIGHT OF 315 KG.
[2022-03-03] MEDS: INSULIN HUMAN NPH (*BKC) 100 UNITS/ML 25 UNITS SUB-Q (09:22)
[2022-03-03] MEDS: POVIDONE IODINE 10% 1 APPLIC TOPICAL ×4 (10:49→17:45)
[2022-03-03] MEDS: HYDROCORTISONE 1% 30 GM CREAM 1 APPLIC TOPICAL (10:49)
[2022-03-03 12:02] LABS: Glucose Point of Care 138 mg/dl (65-105)
[2022-03-03] MEDS: HYDROcodone/acetaminophen (*CRX) 7.5-325 MG TABLET 1 TAB PO ×2 (14:48→21:44)
--- NOTE | 2022-03-03 16:54 | PM.IMPN ---
Progress Note: A&P Assessment and Plan (1) Acute UTI: Code(s): N39.0 - Urinary tract infection, site not specified Status: Acute (2) Acute metabolic encephalopathy: Code(s): G93.41 - Metabolic encephalopathy Status: Acute (3) Influenza A: Code(s): J10.1 - Influenza due to other identified influenza virus with other respiratory manifestations Status: Acute (4) Acute hypokalemia: Code(s): E87.6 - Hypokalemia Status: Acute (5) Hypomagnesemia: Code(s): E83.42 - Hypomagnesemia Status: Acute (6) JUN on CPAP: Code(s): G47.33 - Obstructive sleep apnea (adult) (pediatric); Z99.89 - Dependence on other enabling machines and devices Status: Acute (7) Depression: Code(s): F32.A - Depression, unspecified Status: Acute (8) Peripheral neuropathy: Code(s): G62.9 - Polyneuropathy, unspecified Status: Acute (9) Hyperlipidemia: Code(s): E78.5 - Hyperlipidemia, unspecified Status: Acute (10) Hypothyroid: Code(s): E03.9 - Hypothyroidism, unspecified Status: Acute (11) Chronic venous insufficiency: Code(s): I87.2 - Venous insufficiency (chronic) (peripheral) Status: Acute (12) Insulin dependent diabetes mellitus: Status: Acute (13) CHF (congestive heart failure): Qualifiers: Heart failure chronicity: unspecified Heart failure type: unspecified Qualified Code(s): I50.9 - Heart failure, unspecified Code(s): I50.9 - Heart failure, unspecified Status: Acute (14) Chronic anticoagulation: Code(s): Z79.01 - senior care (current) use of anticoagulants Status: Acute (15) Morbid obesity: Code(s): E66.01 - Morbid (severe) obesity due to excess calories Status: Acute Plan # altered mental status: WBC count normal. CT head is negative. Chest x-ray with interstitial opacities of the lower lung zones consistent with mild pulmonary edema versus atelectasis with cardiomegaly. Blood culture turned positive for Gram-positive cocci in clusters. Initial vancomycin IV repeat blood culture ordered # acute UTI: Along with ceftriaxone. Await urine culture # acute hypokalemia # acute hypo magnesemia: Replace # influenza a: Started on Tamiflu # possible pneumonia WBC count is normal could be flu related. On ceftriaxone and vancomycin now # congestive heart failure chronic diastolic # atrial fibrillation chronic rate controlled chronic anticoagulation # chronic venous insufficiency # depression # hypertension # insulin-dependent diabetes mellitus home dose insulin resumed monitor Accu-Cheks. A1c 7.5 # peripheral neuropathy # generalized weakness # longterm resident bedbound status # hypothyroidism # multiple falls # history of chronic sacral wound # DVT prophylaxis on # chronic DVT # code status full code Subjective Date/time seen: 03/03/22 16:54 Interval history: Patient is more awake and alert. No overnight events. Labs are reviewed. Blood cultures positive. Review of Systems Review of Systems: All systems reviewed & are unremarkable except as noted in HPI and below Exam Narrative: APPEARANCE:? No acute distress, nontoxic, resting in bed awake and alert confused looking more alert and awake and oriented EYES:, PERRL HEENT: Normocephalic, atraumatic RESPIRATORY: No respiratory distress Clear to auscultation bilaterally with no rhonchi wheezing or rales. CARDIOVASCULAR: Irregularly irregular rate controlled rhythm, without murmurs rubs or gallops. ABDOMINAL: Soft, nontender, nondistended, no rebound or guard Musculoskeletal: No clubbing or cyanosis 1 + edema of the bilateral lower extremities, moves all extremities NEURO: Awake and alert x 2. Following simple commands SKIN:: Warm, dry. No rashes lesions or abrasions PSYCHIATRIC: Normal affect/mood, Objective Data Vital Signs Vital Signs: Vital Signs - 24 hr 03/02/22
[2022-03-03 17:01] LABS: Glucose Point of Care 136 mg/dl (65-105)
[2022-03-03] MEDS: PRAVASTATIN SODIUM 20 MG TABLET 40 MG PO (21:45)
[2022-03-03] MEDS: traZODone HCL 50 MG TABLET 150 MG PO (21:45)
[2022-03-03] MEDS: INSULIN HUMAN ISOPHAN/REGULAR 70/30 (*BKC) 100 UNITS/ML 20 UNITS SUB-Q (22:08)
[2022-03-04] VITALS (12 sets, daily range): BP systolic 80–102; BP diastolic 53–68; PULSE 58–108; RESP 16–20; TEMP 35.7–36.7; O2SAT 92–98
[2022-03-04] MEDS: LEVOTHYROXINE SODIUM 100 MCG TABLET PO (05:54)
[2022-03-04 07:30] LABS: Alanine Aminotransferase 13 U/L (6-50); Alkaline Phosphatase 44 U/L (38-126); Anion Gap 6 mmol/L (8-16); Aspartate Amino Transferase 25 U/L (17-59); Bilirubin,Total 0.3 mg/dL (0.2-1.3); Blood Urea Nitrogen 24 mg/dL (9-20); Calcium 8.6 mg/dL (8.4-10.2); Carbon Dioxide 25 mmol/L (22-30); Chloride 100 mmol/L (98-107); Estimated CRCL calculation 85 ml/min; Estimated Glomerular Filt Rate > 60; Glucose 89 mg/dL (65-110); Magnesium 1.7 mg/dL (1.6-2.3); Potassium 3.9 mmol/L (3.4-5.0); Sodium 131 mmol/L (137-145)
[2022-03-04 07:36] LABS: Eosinophils Absolute Auto 0.3 K/mm3 (0-0.3); Eosinophils Percent Auto 6.5 % (0-4.4); Hematocrit 39.5 % (42.0-52.0); Immature Granulocyte Absolute 0.01 K/mm3 (0.00-0.031); Immature Granulocyte Percent A 0.2 % (0-0.5); Lymphocytes Absolute Auto 1.38 K/mm3 (0.9-3.2); Lymphocytes Percent Auto 34.4 % (18.3-44.2); Mean Corpuscular HGB Conc 30.4 g/dl (32-36); Mean Corpuscular Hemoglobin 27.9 pg (26-34); Mean Corpuscular Volume 91.9 fl (80-100); Mean Platelet Volume 10.3 fl (7.4-10.4); Monocytes Absolute Auto 0.7 K/mm3 (0.1-0.6); Monocytes Percent Auto 16.7 % (2.6-8.5); Neutrophils Absolute Auto 1.7 K/mm3 (1.3-6.7); Neutrophils Percent Auto 41.2 % (45.5-73.1); Platelet Count Result 148 k/mm3 (150-375); Red Cell Distribution Width 15.3 % (11.5-14.5)
[2022-03-04] MEDS: CHOLECALCIFEROL 1,000 UNITS TABLET 6000 UNITS PO (08:28)
[2022-03-04] MEDS: OSELTAMIVIR PHOSPHATE 75 MG CAPSULE PO ×2 (08:29→20:35)
[2022-03-04] MEDS: metFORMIN HCL 500 MG TABLET 1000 MG PO ×2 (08:29→17:42)
[2022-03-04] MEDS: carvediloL 12.5 MG TABLET PO ×2 (08:29→20:35)
[2022-03-04] MEDS: GABAPENTIN 300 MG CAPSULE PO ×4 (08:29→20:35)
[2022-03-04] MEDS: ASPIRIN 81 MG ENTERIC TABLET PO (08:29)
[2022-03-04] MEDS: PANTOPRAZOLE 40 MG TABLET PO (08:29)
[2022-03-04] MEDS: THERAPEUTIC MULTIVITAMINS/MINERALS TAB (*BKC) 1 TABLET PO (08:29)
[2022-03-04] MEDS: FUROSEMIDE 40 MG TABLET PO (08:29)
[2022-03-04] MEDS: HYDROCORTISONE 1% 30 GM CREAM 1 APPLIC TOPICAL (08:31)
[2022-03-04] MEDS: LACTIC ACID 12% LOTION 225 BTL 1 APPLIC TOPICAL (08:32)
[2022-03-04] MEDS: POVIDONE IODINE 10% 1 APPLIC TOPICAL ×4 (08:32→17:43)
[2022-03-04 08:51] LABS: Glucose Point of Care 89 mg/dl (65-105)
[2022-03-04] MEDS: INSULIN HUMAN NPH (*BKC) 100 UNITS/ML 25 UNITS SUB-Q (09:47)
[2022-03-04] MEDS: MAGNESIUM OXIDE 400 MG TABLET PO (11:40)
[2022-03-04 11:47] LABS: Glucose Point of Care 109 mg/dl (65-105)
--- NOTE | 2022-03-04 14:17 | PM.IMPN ---
Progress Note: A&P Assessment and Plan (1) Acute UTI: Code(s): N39.0 - Urinary tract infection, site not specified Status: Acute (2) Acute metabolic encephalopathy: Code(s): G93.41 - Metabolic encephalopathy Status: Acute (3) Influenza A: Code(s): J10.1 - Influenza due to other identified influenza virus with other respiratory manifestations Status: Acute (4) Acute hypokalemia: Code(s): E87.6 - Hypokalemia Status: Acute (5) Hypomagnesemia: Code(s): E83.42 - Hypomagnesemia Status: Acute (6) JUN on CPAP: Code(s): G47.33 - Obstructive sleep apnea (adult) (pediatric); Z99.89 - Dependence on other enabling machines and devices Status: Acute (7) Depression: Code(s): F32.A - Depression, unspecified Status: Acute (8) Peripheral neuropathy: Code(s): G62.9 - Polyneuropathy, unspecified Status: Acute (9) Hyperlipidemia: Code(s): E78.5 - Hyperlipidemia, unspecified Status: Acute (10) Hypothyroid: Code(s): E03.9 - Hypothyroidism, unspecified Status: Acute (11) Chronic venous insufficiency: Code(s): I87.2 - Venous insufficiency (chronic) (peripheral) Status: Acute (12) Insulin dependent diabetes mellitus: Status: Acute (13) CHF (congestive heart failure): Qualifiers: Heart failure chronicity: unspecified Heart failure type: unspecified Qualified Code(s): I50.9 - Heart failure, unspecified Code(s): I50.9 - Heart failure, unspecified Status: Acute (14) Chronic anticoagulation: Code(s): Z79.01 - [facility] (current) use of anticoagulants Status: Acute (15) Morbid obesity: Code(s): E66.01 - Morbid (severe) obesity due to excess calories Status: Acute Plan # altered mental status: WBC count normal. CT head is negative. Chest x-ray with interstitial opacities of the lower lung zones consistent with mild pulmonary edema versus atelectasis with cardiomegaly. Blood culture turned positive for Gram-positive cocci in clusters. Initial vancomycin IV repeat blood culture ordered which is no growth to date altered mental status has resolved and is back to his baseline. Original blood culture been Staphylococcus hominis and Staphylococcus epidermidis 06/03. Repeat blood cultures were obtained before vancomycin was started. Will await finalization of the repeat blood cultures. Continue vancomycin for 9 # acute UTI: Along with ceftriaxone. Urine culture mixed genital [place]. Not indicated above urinary tract sample. Continue ceftriaxone # acute hypokalemia # acute hypo magnesemia: Replace # influenza a: Started on Tamiflu # possible pneumonia WBC count is normal could be flu related. On ceftriaxone and vancomycin now # congestive heart failure chronic diastolic on Lasix 40 mg daily and Coreg. # atrial fibrillation chronic rate controlled chronic anticoagulation # chronic venous insufficiency # depression # hypertension # insulin-dependent diabetes mellitus home dose insulin resumed monitor Accu-Cheks. A1c 7.5 # peripheral neuropathy # generalized weakness # [facility] resident bedbound status # hypothyroidism # multiple falls # history of chronic sacral wound # DVT prophylaxis start Lovenox # chronic DVT # code status full code Subjective Date/time seen: 03/04/22 14:17 Interval history: Patient denies any new complaints. He is more awake and alert. He states that he has not been walking for past few months since he went to the rehab. Legs are swollen. Tolerating antibiotics. Review of Systems Review of Systems: All systems reviewed & are unremarkable except as noted in HPI and below Exam Narrative: APPEARANCE:? No acute distress, nontoxic, resting in bed awake and alert and oriented x3 EYES:, PERRL HEENT: Normocephalic, atraumatic RESPIRATORY: No respiratory distress Clear to auscultation bilaterally with no
[2022-03-04 17:01] LABS: Glucose Point of Care 121 mg/dl (65-105)
[2022-03-04] MEDS: PRAVASTATIN SODIUM 20 MG TABLET 40 MG PO (20:35)
[2022-03-04] MEDS: INSULIN HUMAN ISOPHAN/REGULAR 70/30 (*BKC) 100 UNITS/ML 20 UNITS SUB-Q (20:35)
[2022-03-04] MEDS: HYDROcodone/acetaminophen (*CRX) 7.5-325 MG TABLET 1 TAB PO (20:38)
[2022-03-04] MEDS: traZODone HCL 50 MG TABLET 150 MG PO (20:38)
[2022-03-04 21:27] LABS: Glucose Point of Care 136 mg/dl (65-105)
[2022-03-04 22:47] LABS: Vancomycin Trough 31.3 ug/mL (10.0-20.0)
[2022-03-05] VITALS (12 sets, daily range): BP systolic 91–118; BP diastolic 51–67; PULSE 59–80; RESP 16–20; TEMP 35.6–36.6; O2SAT 93–100
[2022-03-05] MEDS: LEVOTHYROXINE SODIUM 100 MCG TABLET PO (05:39)
[2022-03-05] MEDS: FUROSEMIDE 40 MG TABLET PO (08:22)
[2022-03-05] MEDS: THERAPEUTIC MULTIVITAMINS/MINERALS TAB (*BKC) 1 TABLET PO (08:22)
[2022-03-05] MEDS: GABAPENTIN 300 MG CAPSULE PO ×4 (08:22→20:51)
[2022-03-05] MEDS: OSELTAMIVIR PHOSPHATE 75 MG CAPSULE PO ×2 (08:22→20:51)
[2022-03-05] MEDS: metFORMIN HCL 500 MG TABLET 1000 MG PO ×2 (08:22→17:16)
[2022-03-05] MEDS: PANTOPRAZOLE 40 MG TABLET PO (08:22)
[2022-03-05] MEDS: carvediloL 12.5 MG TABLET PO ×2 (08:22→20:52)
[2022-03-05] MEDS: ENOXAPARIN 40 MG/0.4 ML SYRINGE SUB-Q (08:22)
[2022-03-05] MEDS: ASPIRIN 81 MG ENTERIC TABLET PO (08:22)
[2022-03-05] MEDS: HYDROCORTISONE 1% 30 GM CREAM 1 APPLIC TOPICAL (08:24)
[2022-03-05] MEDS: POVIDONE IODINE 10% 1 APPLIC TOPICAL ×4 (08:24→17:17)
[2022-03-05] MEDS: LACTIC ACID 12% LOTION 225 BTL 1 APPLIC TOPICAL (08:26)
[2022-03-05 08:40] LABS: Glucose Point of Care 83 mg/dl (65-105)
[2022-03-05] MEDS: INSULIN HUMAN NPH (*BKC) 100 UNITS/ML 25 UNITS SUB-Q (09:28)
[2022-03-05] MEDS: HYDROcodone/acetaminophen (*CRX) 7.5-325 MG TABLET 1 TAB PO ×3 (10:52→20:50)
[2022-03-05 12:22] LABS: Glucose Point of Care 106 mg/dl (65-105)
[2022-03-05] MEDS: MAGNESIUM OXIDE 400 MG TABLET PO (12:34)
[2022-03-05 16:51] LABS: Glucose Point of Care 103 mg/dl (65-105)
--- NOTE | 2022-03-05 17:34 | PM.IMPN ---
Progress Note: A&P Assessment and Plan (1) Acute UTI: Code(s): N39.0 - Urinary tract infection, site not specified Status: Acute (2) Acute metabolic encephalopathy: Code(s): G93.41 - Metabolic encephalopathy Status: Acute (3) Influenza A: Code(s): J10.1 - Influenza due to other identified influenza virus with other respiratory manifestations Status: Acute (4) Acute hypokalemia: Code(s): E87.6 - Hypokalemia Status: Acute (5) Hypomagnesemia: Code(s): E83.42 - Hypomagnesemia Status: Acute (6) JUN on CPAP: Code(s): G47.33 - Obstructive sleep apnea (adult) (pediatric); Z99.89 - Dependence on other enabling machines and devices Status: Acute (7) Depression: Code(s): F32.A - Depression, unspecified Status: Acute (8) Peripheral neuropathy: Code(s): G62.9 - Polyneuropathy, unspecified Status: Acute (9) Hyperlipidemia: Code(s): E78.5 - Hyperlipidemia, unspecified Status: Acute (10) Hypothyroid: Code(s): E03.9 - Hypothyroidism, unspecified Status: Acute (11) Chronic venous insufficiency: Code(s): I87.2 - Venous insufficiency (chronic) (peripheral) Status: Acute (12) Insulin dependent diabetes mellitus: Status: Acute (13) CHF (congestive heart failure): Qualifiers: Heart failure chronicity: unspecified Heart failure type: unspecified Qualified Code(s): I50.9 - Heart failure, unspecified Code(s): I50.9 - Heart failure, unspecified Status: Acute (14) Chronic anticoagulation: Code(s): Z79.01 - correction (current) use of anticoagulants Status: Acute (15) Morbid obesity: Code(s): E66.01 - Morbid (severe) obesity due to excess calories Status: Acute Plan # altered mental status: WBC count normal. CT head is negative. Chest x-ray with interstitial opacities of the lower lung zones consistent with mild pulmonary edema versus atelectasis with cardiomegaly. Blood culture turned positive for Gram-positive cocci in clusters. Initial vancomycin IV repeat blood culture ordered which is no growth to date altered mental status has resolved and is back to his baseline. Original blood culture been Staphylococcus hominis and Staphylococcus epidermidis 06/03. Repeat blood cultures were obtained before vancomycin was started. Will await finalization of the repeat blood cultures. Continue vancomycin for 9 # acute UTI: Along with ceftriaxone. Urine culture mixed genital [place]. Not indicated above urinary tract sample. Continue ceftriaxone # acute hypokalemia # acute hypo magnesemia: Replace # influenza a: Started on Tamiflu # possible pneumonia WBC count is normal could be flu related. On ceftriaxone and vancomycin now # congestive heart failure chronic diastolic on Lasix 40 mg daily and Coreg. # atrial fibrillation chronic rate controlled chronic anticoagulation # chronic venous insufficiency # depression # hypertension # insulin-dependent diabetes mellitus home dose insulin resumed monitor Accu-Cheks. A1c 7.5 # peripheral neuropathy # generalized weakness # residential resident bedbound status # hypothyroidism # multiple falls # history of chronic sacral wound # DVT prophylaxis start Lovenox # chronic DVT # code status full code 03/05/2022 interval history: today patient states feeling much better his is present in the room, patient is being treated with vancomycin for Staphylococcus hominis and epidermidis, repeat blood culture so far no growth, will continue present management will have a PT OT evaluate the patient and will transfer the patient back to rehab tomorrow. Subjective Date/time seen: 03/05/22 17:34 Interval history: Patient denies any new complaints. He is more awake and alert. He states that he has not been walking for past few months since he went to the rehab. Legs are swollen. Tolerating antibiot
[2022-03-05] MEDS: PRAVASTATIN SODIUM 20 MG TABLET 40 MG PO (20:51)
[2022-03-05] MEDS: traZODone HCL 50 MG TABLET 150 MG PO (20:51)
[2022-03-05] MEDS: INSULIN HUMAN ISOPHAN/REGULAR 70/30 (*BKC) 100 UNITS/ML 20 UNITS SUB-Q (20:55)
[2022-03-05 21:55] LABS: Glucose Point of Care 122 mg/dl (65-105)
[2022-03-05 23:05] LABS: Vancomycin Trough 19.7 ug/mL (10.0-20.0)
[2022-03-06] VITALS: BP 104/53; PULSE 67; PULSE 75; RESP 18; TEMP 35.9; O2SAT 96
[2022-03-06 04:00] VITALS: BP 108/65; PULSE 61; PULSE 66; RESP 18; TEMP 36; O2SAT 92
[2022-03-06] MEDS: LEVOTHYROXINE SODIUM 100 MCG TABLET PO (06:23)
[2022-03-06 07:05] LABS: Estimated CRCL calculation 85 ml/min; Estimated Glomerular Filt Rate > 60
--- NOTE | 2022-03-06 07:45 | PCOTNOTE ---
Spoke with hospitalist Dr. Victor who is agreeable to OT discharging orders due to patient being dependent at baseline, is a [facility] residential.
[2022-03-06 08:00] VITALS: BP 104/53; PULSE 60; PULSE 67; RESP 16; TEMP 36.6; O2SAT 97
[2022-03-06 08:11] LABS: Glucose Point of Care 75 mg/dl (65-105)
[2022-03-06] MEDS: CHOLECALCIFEROL 1,000 UNITS TABLET 6000 UNITS PO (09:21)
[2022-03-06] MEDS: FUROSEMIDE 40 MG TABLET PO (09:22)
[2022-03-06] MEDS: metFORMIN HCL 500 MG TABLET 1000 MG PO (09:22)
[2022-03-06 09:23] VITALS: PULSE 70
[2022-03-06] MEDS: OSELTAMIVIR PHOSPHATE 75 MG CAPSULE PO (09:23)
[2022-03-06] MEDS: ASPIRIN 81 MG ENTERIC TABLET PO (09:23)
[2022-03-06] MEDS: carvediloL 12.5 MG TABLET PO (09:23)
[2022-03-06] MEDS: GABAPENTIN 300 MG CAPSULE PO ×2 (09:23→12:12)
[2022-03-06] MEDS: THERAPEUTIC MULTIVITAMINS/MINERALS TAB (*BKC) 1 TABLET PO (09:23)
[2022-03-06] MEDS: PANTOPRAZOLE 40 MG TABLET PO (09:24)
[2022-03-06] MEDS: HYDROCORTISONE 1% 30 GM CREAM 1 APPLIC TOPICAL (09:24)
[2022-03-06] MEDS: POVIDONE IODINE 10% 1 APPLIC TOPICAL ×2 (09:24→09:30)
[2022-03-06] MEDS: ENOXAPARIN 40 MG/0.4 ML SYRINGE SUB-Q (09:25)
[2022-03-06] MEDS: LACTIC ACID 12% LOTION 225 BTL 1 APPLIC TOPICAL (09:44)
--- NOTE | 2022-03-06 09:51 | P.CDI_ITS ---
CDI Query Clarified Diagnosis Clarified Diagnosis: Elevated BNP on 03/02/22 lab work. Pt receiving furosemide as an inpatient and also takes as a home medication. CHF noted on the assessment and plan. Pt with documented history of CHF. Documented pulmonary edema on the Chest X-Ray. Please specify type and acuity of heart failure if known. * Acute * Chronic * Acute on Chronic * Unknown * Systolic * Diastolic * Combined Systolic and Diastolic * Unknown <Pat Lynch RN - Last Filed: 03/06/22 09:58> Provider Comments Etiology of CHF is unknown as patient recent cardiac ECHO showed preserved LV function with ER of 65% and indeterminant diastolic dysfunction. <Naveen Victor MD - Last Filed: 03/27/22 13:04>
--- NOTE | 2022-03-06 10:58 | PM.DS ---
DS: Admitting Diagnosis Discharge Date 03/06/2022 Admitting Diagnosis acute mental status DS: Discharge Diagnosis Discharge Diagnosis (1) Acute UTI: Code(s): N39.0 - Urinary tract infection, site not specified Status: Acute (2) Acute metabolic encephalopathy: Code(s): G93.41 - Metabolic encephalopathy Status: Acute (3) Influenza A: Code(s): J10.1 - Influenza due to other identified influenza virus with other respiratory manifestations Status: Acute (4) Acute hypokalemia: Code(s): E87.6 - Hypokalemia Status: Acute (5) Hypomagnesemia: Code(s): E83.42 - Hypomagnesemia Status: Acute (6) JUN on CPAP: Code(s): G47.33 - Obstructive sleep apnea (adult) (pediatric); Z99.89 - Dependence on other enabling machines and devices Status: Acute (7) Depression: Code(s): F32.A - Depression, unspecified Status: Acute (8) Peripheral neuropathy: Code(s): G62.9 - Polyneuropathy, unspecified Status: Acute (9) Hyperlipidemia: Code(s): E78.5 - Hyperlipidemia, unspecified Status: Acute (10) Hypothyroid: Code(s): E03.9 - Hypothyroidism, unspecified Status: Acute (11) Chronic venous insufficiency: Code(s): I87.2 - Venous insufficiency (chronic) (peripheral) Status: Acute (12) Insulin dependent diabetes mellitus: Status: Acute (13) CHF (congestive heart failure): Qualifiers: Heart failure chronicity: unspecified Heart failure type: unspecified Qualified Code(s): I50.9 - Heart failure, unspecified Code(s): I50.9 - Heart failure, unspecified Status: Acute (14) Chronic anticoagulation: Code(s): Z79.01 - terminal supervisor (current) use of anticoagulants Status: Acute (15) Morbid obesity: Code(s): E66.01 - Morbid (severe) obesity due to excess calories Status: Acute Plan # altered mental status: WBC count normal. CT head is negative. Chest x-ray with interstitial opacities of the lower lung zones consistent with mild pulmonary edema versus atelectasis with cardiomegaly. Blood culture turned positive for Gram-positive cocci in clusters. Initial vancomycin IV repeat blood culture ordered which is no growth to date altered mental status has resolved and is back to his baseline. Original blood culture been Staphylococcus hominis and Staphylococcus epidermidis 06/03. Repeat blood cultures were obtained before vancomycin was started. Will await finalization of the repeat blood cultures. Continue vancomycin for 9 # acute UTI: Along with ceftriaxone. Urine culture mixed genital [place]. Not indicated above urinary tract sample. Continue ceftriaxone # acute hypokalemia # acute hypo magnesemia: Replace # influenza a: Started on Tamiflu # possible pneumonia WBC count is normal could be flu related. On ceftriaxone and vancomycin now # congestive heart failure chronic diastolic on Lasix 40 mg daily and Coreg. # atrial fibrillation chronic rate controlled chronic anticoagulation # chronic venous insufficiency # depression # hypertension # insulin-dependent diabetes mellitus home dose insulin resumed monitor Accu-Cheks. A1c 7.5 # peripheral neuropathy # generalized weakness # assisted resident bedbound status # hypothyroidism # multiple falls # history of chronic sacral wound # DVT prophylaxis start Lovenox # chronic DVT # code status full code 03/05/2022 interval history: today patient states feeling much better his is present in the room, patient is being treated with vancomycin for Staphylococcus hominis and epidermidis, repeat blood culture so far no growth, will continue present management will have a PT OT evaluate the patient and will transfer the patient back to rehab tomorrow. DS: Summary Hospital Course Reason for hospitalization: Altered mental status Narrative: Patient presents to the [facility] emergency department from [facility] via
[2022-03-06] MEDS: MAGNESIUM OXIDE 400 MG TABLET PO (11:14)
[2022-03-06 11:52] LABS: Glucose Point of Care 102 mg/dl (65-105)
[2022-03-06 12:00] VITALS: BP 117/76; PULSE 64; RESP 16; TEMP 36.8; O2SAT 97
== END 2022-03-06 14:20 | DRG 689 ==
LOC: ANHED 06:30 → ANH3MEDSUR 07:15
PROVIDERS: Internal Medicine; Admitting Provider Student in an Organized Health Care Education/Training Program; Emergency Provider Emergency Medicine; PCP Internal Medicine; Visit Provider Family Medicine
DX: N39.0 Urinary tract infection, site not specified (principal); G93.41 Metabolic encephalopathy; J10.00 Influenza due to other identified influenza virus with unspecified type of pneumonia; I50.32 Chronic diastolic (congestive) heart failure; I48.20 Chronic atrial fibrillation, unspecified; Z20.822 Contact with and (suspected) exposure to COVID-19; B95.7 Other staphylococcus as the cause of diseases classified elsewhere; E87.6 Hypokalemia; E83.42 Hypomagnesemia; G47.33 Obstructive sleep apnea (adult) (pediatric); F32.A Depression, unspecified; E78.5 Hyperlipidemia, unspecified; E03.9 Hypothyroidism, unspecified; I87.2 Venous insufficiency (chronic) (peripheral); E11.42 Type 2 diabetes mellitus with diabetic polyneuropathy; E66.01 Morbid (severe) obesity due to excess calories; Z68.35 Body mass index [BMI] 35.0-35.9, adult; Z79.01 Long term (current) use of anticoagulants
CPT/HCPCS: 36415; 70450; 71045; 80053; 80202; 81001; 82565; 82948; 83036; 83605; 83735; 83880; 84132; 84484; 85025; 85610; 85730; 87040; 87077; 87086; 87088; 87186; 87637; 93005; 96365; 96366; 96367; 96368; 97161; 99285; A9270; G0378; J0696; J1650; J1815; J3370; J3475; J7030; J7040

== ENCOUNTER 2022-06-23 00:21 | Inpatient (IN) | payer OTHER, MEDICAID, SELFPAY ==
[2022-06-23] VITALS (29 sets, daily range): BP systolic 93–156; BP diastolic 51–114; PULSE 73–162; RESP 16–40; TEMP 36.2–37.1; O2SAT 85–100; BMI 36.2
--- NOTE | 2022-06-23 | ECHO_ITS ---
Patient Info Name: Taye Marrero Age: 66 years : 1955 Gender: Male Ht: 72 in Wt: 268 lbs BSA: 2.53 m2 HR: 111 bpm BP: 93 / 52 mmHg Heart Rhythm: Atrial Fibrillation Technical Quality: Fair Exam Date: 06/23/2022 8:27 AM Exam Location: [facility] Pulmonary Patient Status: Inpatient Admit Date: 06/23/2022 Staff Ordering Physician: Elysia Rausch MD Staffing Coordinator: Mavis Lim RDCS Attending Provider: Elysia Rausch MD Referring Physician: Miracle CASTRO; Exam Type: CA echo doppler color flow Study Info Indications - elevated BNP Complete two-dimensional, color flow and Doppler transthoracic echocardiogram is performed. Summary 1. Complete two-dimensional, color flow and Doppler transthoracic echocardiogram is performed. 2. Technically challenging echocardiogram with suboptimal patient positioning. 3. Normal left ventricular size and systolic function. 4. Biatrial dilation. 5. Atrial fibrillation. 6. No significant valvular dysfunction. 7. Compared with echocardiogram from November of 2021 the findings are essentially identical. Left Ventricle Left ventricular chamber dimension is normal. Left ventricular systolic function is normal, estimated at 60-65%. There is mild concentric increased left ventricular wall thickness. The left ventricular diastolic function is indeterminate. Right Ventricle Right ventricular chamber dimension is normal. Left Atria Left atrial chamber dimension is moderately enlarged. Right Atria Right atrial chamber dimension is moderately enlarged. Aortic Valve The aortic valve is normal. Pulmonic Valve The pulmonic valve is not well visualized. Mitral Valve The mitral valve has normal leaflets. The mitral valve annulus is mildly calcified. Tricuspid Valve The tricuspid valve leaflets are not well visualized. Pericardium/Pleural The pericardium appears normal. Aorta The aortic root size at the sinus of Valsalva is normal. Left Ventricular Outflow Tract Name Value Normal LVOT 2D LVOT Diameter 2.0 cm LVOT Doppler LVOT Peak Gradient 2 mmHg LVOT Mean Gradient 1 mmHg LVOT VTI 12 cm LVOT VTI/AV VTI Ratio 0.6 LVOT Stroke Volume 38 ml LVOT CO 2.5 l/min LVOT CI 1.0 l/min/m2 Mitral Valve Name Value Normal MV Doppler MV Decel [place] 852 cm/s2 MV PHT 35 ms MV Area (PHT) 6.4 cm2 4.0-5.0 MV Diastolic Function MV E Peak Velocity 101 cm/s MV A Peak Velocity 1 cm/s
--- NOTE | ~2022-06-23 | XR_ITS ---
EXAMINATION: XR chest 1V portable DATE: 06/23/2022 01:02 INDICATION: Altered mental status. TECHNIQUE: A single frontal view of the chest was obtained. COMPARISON: Chest single view of 03/02/22, CT abdomen and pelvis 06/23/2022 FINDINGS: Aide B lines are noted, consistent with mild pulmonary edema. No pleural effusion or pneu mothorax. Cardiomegaly is noted. IMPRESSION: 1. Mild pulmonary edema. 2. Cardiomegaly. Reviewed, dictated and finalized at location A.
--- NOTE | ~2022-06-23 | NM_ITS ---
EXAMINATION: NM hepatobiliary wo pharm DATE: 06/24/2022 12:05 INDICATION: Cholelithiasis. COMPARISON: CT abdomen and pelvis 06/23/2022 TECHNIQUE: 6.0 mCi Tc-99m mebrofenin (Choletec) was administered intravenously. Scintigraphic images of the abdomen were obtained for one hour. Then, the patient drank 8 oz Ensure, and imaging was cont inued for 60 minutes. FINDINGS: There is normal clearance of radiotracer from the blood pool. There is homogeneous tracer u ptake by the liver. Activity progresses to the bowel and gallbladder. Gallbladder ejection fraction (GBEF) was <10%. Note that with this technique, normal GBEF >= 33%. IMPRESSION: 1. Low gallbladder ejection fraction, consistent with gallbladder dysfunction and/or chronic cholecy stitis. Reviewed, dictated and finalized at location A. IMPRESSION: 1. Low gallbladder ejection fraction, consistent with gallbladder dysfunction and/or chronic cholecystitis.
--- NOTE | ~2022-06-23 | CT_ITS ---
EXAMINATION: CT abdomen pelvis w con DATE: 06/23/2022 02:30 INDICATION: Abdominal distention. TECHNIQUE: Computed tomography (CT) of the abdomen and pelvis was performed with 100 mL Omnipaque 350 intravenous contrast. Automated exposure control and iterative reconstruction technique were employe d. The dose-length product was 1537.69 mGy-cm. COMPARISON: CT abdomen 10/30/2003 FINDINGS: The visualized portions of the lung bases demonstrate smooth septal thickening, consistent with mild pulmonary edema. No pleural effusion. Cardiomegaly is noted. No pericardial effusion. There is mild pectus excavatum. The liver is normal. There are gallstones in the gallbladder, which is dis tended. The spleen and pancreas are normal. There is a 4 mm stone in the common bile duct. There is a 1.9 cm mass of fat in right adrenal gland, consistent with a myelolipoma. There is a 1.5 cm mass in left adrenal gland measuring soft tissue attenuation that is chronic, likely an adenoma. There is mil d atrophy of the kidneys. There are 2 stones in right kidney with the larger measuring 3.6 cm. There is a 13 mm cyst in left kidney. There is an 11 mm stone or cluster of stones in left kidney. There is mild left hydronephrosis. There is bilateral hydroureter. There is bilateral hydroureter. There is u rothelial thickening and enhancement in the ureters, consistent with pyelitis. The bladder is decompr essed by a Coats catheter. The prostate is moderately enlarged. There is diverticulosis of the colon without evidence of diverticulitis. There are no dilated loops of bowel. The appendix is not visualiz ed. There are changes of ventral hernia repair. There are no pathologically enlarged lymph nodes. The re is no free intraperitoneal fluid. There is mild thoracic spondylosis and moderate lumbar spondylos is. IMPRESSION: 1. Bilateral pyelitis. Mild right hydroureter. Mild left hydronephrosis and hydroureter. 2. Bilateral nonobstructing kidney stones. 3. Cholelithiasis. Gallbladder distention may be secondary to fasting. Correlate with physical exam t o exclude acute cholecystitis. 4. Choledocholithiasis. Reviewed, dictated and finalized at location A. IMPRESSION: 1. Bilateral pyelitis. Mild right hydroureter. Mild left hydronephrosis and hyd roureter. 2. Bilateral nonobstructing kidney stones. 3. Cholelithiasis. Gallbladder distention may be secondary to fasting. Correlat e with physical exam to exclude acute cholecystitis. 4. Choledocholithiasis.
--- NOTE | ~2022-06-23 | CT_ITS ---
EXAMINATION: CT brain wo con DATE: 06/23/2022 02:27 INDICATION: Altered mental status. TECHNIQUE: Computed tomography (CT) of the head was performed without intravenous contrast. The mA wa s adjusted according to patient size. Iterative reconstruction technique was employed. The dose-lengt h product was 681.00 mGy-cm. COMPARISON: Head CT 03/02/2022, brain MRI 12/08/2021 FINDINGS: There is diffuse brain volume loss. There is no intracranial hemorrhage, acute infarction, or abnormal intracranial mass lesion. There are scattered areas of low attenuation in the cerebral wh ite matter, which is within normal limits for the patient's age. The ventricles are normal in size. T here is mild mucosal thickening in the paranasal sinuses. There are likely changes of left ocular corazon s replacement surgery. The mastoid air cells are normal. There is a 10 mm subcutaneous mass in the ri ght cheek that may be a sebaceous cyst. IMPRESSION: 1. Normal aging brain. Reviewed, dictated and finalized at location A. IMPRESSION: 1. Normal aging brain.
[2022-06-23 00:35] LABS: Glucose Point of Care 100 mg/dl (65-105)
--- NOTE | 2022-06-23 00:43 | ECG_ITS ---
Measurements Intervals [place] Rate: 117 P: NH: 0 QRS: 97 QRSD: 110 T: -15 QT: 319 QTc: 445 Interpretive Statements ATRIAL FIBRILLATION WITH RAPID VENTRICULAR RESPONSE BORDERLINE RIGHT AXIS DEVIATION [QRS AXIS > 90] MODERATE INTRAVENTRICULAR CONDUCTION DELAY [105+ ms QRS DURATION, 80+ ms Q/S IN V1/V2, NO Q AND 60+ ms R IN I/aVL/V5/V6] NONSPECIFIC T-WAVE ABNORMALITY ABNORMAL ECG COMPARED TO ECG 03/02/2022 04:09:42 NO DIFFERENCE Electronically Signed On 06-23-2022 7:09:39 CDT by Teddy Justin M.D.
[2022-06-23 00:51] LABS: Basophils Absolute Auto 0.1 K/mm3 (0.0-0.1); Basophils Percent Auto 0.4 % (0.2-1.2); Eosinophils Absolute Auto 0.8 K/mm3 (0-0.3); Eosinophils Percent Auto 5.1 % (0-4.4); Hematocrit 47.3 % (42.0-52.0); Hemoglobin 14.5 g/dL (14.0-18.0); Immature Granulocyte Absolute 0.06 K/mm3 (0.00-0.031); Immature Granulocyte Percent A 0.4 % (0-0.5); Lymphocytes Absolute Auto 0.82 K/mm3 (0.9-3.2); Lymphocytes Percent Auto 5.5 % (18.3-44.2); Mean Corpuscular HGB Conc 30.7 g/dl (32-36); Mean Corpuscular Hemoglobin 27.1 pg (26-34); Mean Corpuscular Volume 88.4 fl (80-100); Mean Platelet Volume 9.5 fl (7.4-10.4); Monocytes Absolute Auto 1.3 K/mm3 (0.1-0.6); Monocytes Percent Auto 8.6 % (2.6-8.5); Platelet Count Result 262 k/mm3 (150-375); Red Blood Count 5.35 M/mm3 (4.6-6.20); Red Cell Distribution Width 14.6 % (11.5-14.5)
[2022-06-23 01:02] LABS: INR 1.3; Prothrombin Time 15.4 Seconds (11.1-14.7)
[2022-06-23 01:03] LABS: Partial Thromboplastin Time 37.2 SECONDS (22.3-36.8)
[2022-06-23 01:08] LABS: Alanine Aminotransferase 12 U/L (6-50); Alkaline Phosphatase 72 U/L (38-126); Anion Gap 8 mmol/L (8-16); Aspartate Amino Transferase 17 U/L (17-59); Blood Urea Nitrogen 25 mg/dL (9-20); Calcium 10.4 mg/dL (8.4-10.2); Carbon Dioxide 27 mmol/L (22-30); Chloride 97 mmol/L (98-107); Estimated CRCL calculation 96 ml/min; Estimated Glomerular Filt Rate > 60; Glucose 101 mg/dL (65-110); Potassium 4.7 mmol/L (3.4-5.0); Sodium 132 mmol/L (137-145)
[2022-06-23 01:14] LABS: Bacteria Urine 4+ /hpf; Need Manual Microscopic Reviewed; RBC Urine >100 /hpf (0-2); Squamous Epithelial Cell Urine Occasional /hpf (Few); WBC Urine >100 /hpf
[2022-06-23 01:19] LABS: Appearance Urine Cloudy (Clear); Bilirubin Urine Negative (Negative); Blood Urine 3+ (Negative); Color Urine Other (Yellow); Glucose Urine UA Negative (Negative); Ketones Urine Negative (Negative); Leukocyte Esterase Ur 3+ LEU/UL (Negative); Nitrate Urine Positive (Negative); Protein Urine 2+ mg/dL (Negative); Specific Grav Ur 1.015 (1.001-1.035); pH Urine 7.5 (5.0-9.0)
[2022-06-23] MEDS: SODIUM CHLORIDE 0.9% IV 2,000 ML 999 ML IV CONT (01:20)
[2022-06-23 01:21] LABS: Add Urine Microscopic? YES
[2022-06-23] MEDS: SODIUM CHLORIDE 0.9% IV 1,000 ML 999 ML IV CONT (01:32)
--- NOTE | 2022-06-23 01:32 | ED.GENADULT ---
HPI - General Adult General Chief complaint: Altered Mental Status Stated complaint: altered mental status Time Seen by Provider: 06/23/22 00:47 History of Present Illness HPI narrative: This is a 66-year-old [facility] patient sent to the ED for altered mental status. Patient is A&O x3 at baseline. At this time he is A&O x1. Patient is unable to provide me any useful history. He does have a chronic indwelling [place] that appears clogged. Related Data Home Medications Medication Instructions Recorded Confirmed gabapentin 300 mg capsule 300 mg PO QID 02/15/21 03/02/22 ipratropium 0.5 mg-albuterol 3 mg 3 ml inhalation Q4H PRN Wheezing 02/15/21 03/02/22 (2.5 mg base)/3 mL nebulization soln levothyroxine 100 mcg tablet 100 mcg PO DAILY 02/15/21 03/02/22 metformin 1,000 mg tablet 1,000 mg PO BID 02/15/21 03/02/22 furosemide 40 mg tablet 40 mg PO DAILY 12/08/21 03/02/22 hydrocodone 7.5 mg-acetaminophen 1 tablet PO QID PRN Pain 12/08/21 03/02/22 325 mg tablet insulin NPH-regular 70-30 U-100 20 unit subcut HS 12/08/21 03/02/22 insulin 100 unit/mL subcutaneous pen (Novolin 70-30 FlexPen U-100 Insulin) pravastatin 40 mg tablet 40 mg PO HS 12/08/21 03/02/22 ammonium lactate 12 % lotion 1 applic topical DAILY 03/02/22 03/02/22 cholecalciferol (vitamin D3) 50 6,000 unit PO EVERY OTHER DAY 03/02/22 03/02/22 mcg (2,000 unit) tablet (Vitamin D3) hydrocortisone 0.5 % topical cream 1 applic topical DAILY 03/02/22 03/02/22 insulin NPH isoph U-100 human 100 25 unit subcut DAILY 03/02/22 03/02/22 unit/mL subcutaneous suspension (Novolin N NPH U-100 Insulin isophane) multivitamin with minerals-folic 1 tablet PO DAILY 03/02/22 03/02/22 acid 0.4 mg tablet omeprazole 20 mg capsule,delayed 20 mg PO DAILY 03/02/22 03/02/22 release povidone-iodine 10 % topical swab 1 applic topical BID 03/02/22 03/02/22 (Betadine Swabsticks) povidone-iodine 10 % topical swab 1 applic topical BID 03/02/22 03/02/22 (Betadine Swabsticks) white petrolatum 43 % topical 1 applic topical BID 03/02/22 03/02/22 ointment Allergies Allergy/AdvReac Type Severity Reaction Status Date / Time No Known Allergies Allergy Verified 12/08/21 02:49 [facility] Past Medical History Medical History Atrial fibrillation with rapid ventricular response CHF (congestive heart failure) Chronic venous insufficiency COPD (chronic obstructive pulmonary disease) Depression GERD (gastroesophageal reflux disease) HTN (hypertension) Hyperlipidemia Hypothyroid Insulin dependent diabetes mellitus Kidney stones Meniscus, medial, bucket handle tear, old JUN on CPAP Noncompliant with CPAP Peripheral neuropathy Surgical History Surgical History H/O cataract extraction H/O hemorrhoidectomy History of appendectomy History of back surgery Family History Family History Sibling Family history of obesity Hypertension Family history of diabetes mellitus in first degree relative Family history of heart disease in male family member before age 55 Patient's sister is in good health Patient's brother is Mother Family history of arthritis Family history of malignant neoplasm Patient's mother is Father Patient's father is Other Malignant neoplasm of prostate Unknown family medical history Social History Social History Social History: Patient is and his Marlys is his surrogate decision maker. They have 2 sons, and no pets. He is retired from the [employer]. Code status Dnr Smoking packs per day: 2 Smoking cigarettes per day: 40.0 Years smoked: 15 Smoking pack-years: 30.00 Smoking status: Unknown if ever smoked Tobacco type: cigarettes
[2022-06-23 01:38] LABS: Basophils Percent Auto 1.2 % (0.2-1.2); Eosinophils Absolute Auto 0.3 K/mm3 (0-0.3); Eosinophils Percent Auto 11.1 % (0-4.4); Hematocrit 47.9 % (42.0-52.0); Hemoglobin 14.4 g/dL (14.0-18.0); Immature Granulocyte Absolute 0.01 K/mm3 (0.00-0.031); Immature Granulocyte Percent A 0.4 % (0-0.5); Lymphocytes Absolute Auto 0.33 K/mm3 (0.9-3.2); Lymphocytes Percent Auto 13.5 % (18.3-44.2); Mean Corpuscular HGB Conc 30.1 g/dl (32-36); Mean Corpuscular Hemoglobin 27.2 pg (26-34); Mean Corpuscular Volume 90.5 fl (80-100); Mean Platelet Volume 9.2 fl (7.4-10.4); Monocytes Percent Auto 0.8 % (2.6-8.5); Neutrophils Absolute Auto 1.8 K/mm3 (1.3-6.7); Platelet Count Result 237 k/mm3 (150-375); Red Blood Count 5.29 M/mm3 (4.6-6.20); Red Cell Distribution Width 14.4 % (11.5-14.5); White Blood Count 2.4 K/mm3 (4.5-10.0)
--- NOTE | 2022-06-23 01:44 | PC.NURSE ---
GERTRUDIS per fo 10mg IVP of dilitazem, then 5 minutes later if needed to 15mg IVP.
[2022-06-23] MEDS: PIPERACILLN/TAZ 3.375GM/NS50ML 3.375 GM/50 ML BAG IVPB ×4 (01:46→17:26)
[2022-06-23] MEDS: dilTIAZem HCl INJ 25 MG/5 ML VIAL 15 MG IV PUSH ×2 (01:47→01:55)
--- NOTE | 2022-06-23 01:50 | PC.NURSE ---
0147 10 mg of diltiazem given IVP.
[2022-06-23 01:51] LABS: Ethanol < 10 mg/dL (<10)
[2022-06-23 01:52] LABS: Lipase 16 U/L (23-300); Magnesium 1.4 mg/dL (1.6-2.3)
--- NOTE | 2022-06-23 01:56 | PC.NURSE ---
0155 15mg of diltiazem given per EDP .
[2022-06-23 02:01] LABS: Lactic Acid Reflex 5.1 mmol/L (0.7-2.0); NT Pro B Type Natriuretic Pept 2300 pg/mL (19.9-100)
[2022-06-23 02:04] LABS: Troponin I 0.012 ng/mL (0.000-0.034)
--- NOTE | 2022-06-23 02:07 | PC.NURSE ---
Patient in CT at this time while on tele.
[2022-06-23 02:11] LABS: Alanine Aminotransferase 16 U/L (6-50); Albumin Level 3.9 g/dL (3.5-5.1); Alkaline Phosphatase 73 U/L (38-126); Anion Gap 13 mmol/L (8-16); Aspartate Amino Transferase 17 U/L (17-59); Bilirubin,Total 0.9 mg/dL (0.2-1.3); Blood Urea Nitrogen 23 mg/dL (9-20); Calcium 10.2 mg/dL (8.4-10.2); Carbon Dioxide 24 mmol/L (22-30); Chloride 99 mmol/L (98-107); Creatine Kinase 26 U/L (55-170); Estimated CRCL calculation 87 ml/min; Estimated Glomerular Filt Rate > 60; Glucose 111 mg/dL (65-110); Potassium 5.1 mmol/L (3.4-5.0); Sodium 136 mmol/L (137-145)
[2022-06-23] MEDS: dilTIAZem 100 MG/100 ML 100 MG/100 ML BAG IV CONT ×2 (02:52→10:38)
[2022-06-23 02:59] LABS: Thyroid Stimulating Hormone Reflex 0.786 uIU/mL (0.465-4.68)
--- NOTE | 2022-06-23 03:09 | PM.IMHP ---
H&P: HPI History of Present Illness Date/Time: 06/23/22 03:09 Chief Complaint: Altered mental status Narrative: This is a 66-year-old male with past medical history significant for chronic venous stasis, chronic leg ulcer, hypothyroidism, type 2 diabetes mellitus, congestive heart failure, GERD, atrial fibrillation, obstructive sleep apnea on CPAP, peripheral neuropathy, obesity, chronic indwelling Coats catheter. Patient is brought to the emergency room from [facility] where he resides at due to altered mental status according to medical records patient is usually awake alert oriented x3. I was not able to obtain any history from the patient due to altered mental status, most of the history was obtained upon reviewing medical records and discussion with emergency room physician. In emergency room patient was found to have atrial fibrillation with rapid ventricular response, a urinalysis was significant for numerous WBCs present greater than 100 per high power field, lactic acid was 5.1, potassium 5.1, WBC 2.4, brain natriuretic peptide 2300 EXAMINATION: XR chest 1V portable DATE: 06/23/2022 01:02 INDICATION: Altered mental status. TECHNIQUE: A single frontal view of the chest was obtained. COMPARISON: Chest single view of 03/02/22, CT abdomen and pelvis 06/23/2022 FINDINGS: Aide B lines are noted, consistent with mild pulmonary edema. No pleural effusion or pneumothorax. Cardiomegaly is noted. IMPRESSION: 1. Mild pulmonary edema. 2. Cardiomegaly. EXAMINATION: CT brain wo con DATE: 06/23/2022 02:27 INDICATION: Altered mental status. TECHNIQUE: Computed tomography (CT) of the head was performed without intravenous contrast. The mA was adjusted according to patient size. Iterative reconstruction technique was employed. The dose-length product was 681.00 mGy-cm. COMPARISON: Head CT 03/02/2022, brain MRI 12/08/2021 FINDINGS: There is diffuse brain volume loss. There is no intracranial hemorrhage, acute infarction, or abnormal intracranial mass lesion. There are scattered areas of low attenuation in the cerebral white matter, which is within normal limits for the patient's age. The ventricles are normal in size. There is mild mucosal thickening in the paranasal sinuses. There are likely changes of left ocular lens replacement surgery. The mastoid air cells are normal. There is a 10 mm subcutaneous mass in the right cheek that may be a sebaceous cyst. IMPRESSION: 1. Normal aging brain. Review of Systems Review of Systems: ROS unobtainable: Yes unobtainable due to mental status (Lethargy, obtundation.) [facility] Past Medical History Medical History Atrial fibrillation with rapid ventricular response CHF (congestive heart failure) Choledocholithiasis Chronic venous insufficiency COPD (chronic obstructive pulmonary disease) Depression GERD (gastroesophageal reflux disease) HTN (hypertension) Hyperlipidemia Hypothyroid Insulin dependent diabetes mellitus Kidney stones Meniscus, medial, bucket handle tear, old JUN on CPAP Noncompliant with CPAP Peripheral neuropathy Surgical History Surgical History H/O cataract extraction H/O hemorrhoidectomy History of appendectomy History of back surgery Family History Family History Sibling Family history of obesity Hypertension Family history of diabetes mellitus in first degree relative Family history of heart disease in male family member before age 55 Patient's sister is in good health Patient's brother is Mother Family history of arthritis Family history of malignant neoplasm Patient's mother is Father Patient's father is Other Malignant neoplasm of prostate Unknown family medical history Social History Social History (Reviewed 06/23/22 @
--- NOTE | 2022-06-23 03:11 | PC.NURSE ---
0305 Patient started on diltiazem drip and patient O2 decreased to 87% on RA. Patient placed on 2L via NC and increased to 90%, increased to 4L via NC and increased to 96%. ERP notified and VORB to stop all fluids for bolus.
[2022-06-23] MEDS: MAGNESIUM SULF 2 GM/WATER 50ML 2 GM/50 ML BAG IVPB ×2 (03:27→06:18)
--- NOTE | 2022-06-23 03:39 | PC.NURSE ---
VORB per increase diltiazem drip to 10mg/hr.
[2022-06-23] MEDS: DEXTROSE 50% 25 GM/50 ML SYRINGE IV PUSH (03:47)
[2022-06-23] MEDS: INSULIN HUMAN REGULAR (*BKC) 100 UNITS/ML 10 UNITS IV PUSH (03:49)
[2022-06-23] MEDS: CALCIUM GLUC 1,000 MG/NS 100ML 1,000 MG/100 ML BAG 200 MG IVPB (03:50)
--- NOTE | 2022-06-23 04:27 | PC.NURSE ---
This patient, Taye Marrero Jr., was admitted to IMU Room 232-01 at 0415. Patient/family oriented to hospital policies and general routines including ID bracelet, bed and alarms, visiting hours, pain management, procedures, bathroom and other care routines, personal items, smoking policy, room service/diet, and visiting hours. Information on how to activate the Rapid Response Team has been discussed. Patient/Family are encouraged to report perceived risks to care and to ask questions if they do not understand what they are told or what they should do.
[2022-06-23 04:36] LABS: Reflex Lactic Acid Yes or No Add Lactic
[2022-06-23 04:44] LABS: Glucose Point of Care 125 mg/dl (65-105)
[2022-06-23 05:21] LABS: Lactic Acid 4.2 mmol/L (0.7-2.0)
[2022-06-23 05:27] LABS: Anion Gap 10 mmol/L (8-16); Blood Urea Nitrogen 22 mg/dL (9-20); Calcium 9.5 mg/dL (8.4-10.2); Carbon Dioxide 19 mmol/L (22-30); Chloride 101 mmol/L (98-107); Estimated CRCL calculation 106 ml/min; Estimated Glomerular Filt Rate > 60; Glucose 144 mg/dL (65-110); Magnesium 1.5 mg/dL (1.6-2.3); Potassium 4.3 mmol/L (3.4-5.0); Sodium 130 mmol/L (137-145)
[2022-06-23] MEDS: ENOXAPARIN 120 MG/0.8 ML SYRINGE SUB-Q (06:19)
--- NOTE | 2022-06-23 10:20 | PC.NURSE ---
Spoke with Kathie Langford NP regarding patient's soft BP's while on a Cardizem gtt. New order to continue Cardizem gtt until patient is seen by Cardiology. Decrease rate of drip from 10mg/hr to 5mg/hr.
--- NOTE | 2022-06-23 11:26 | WPDURCON ---
Assessment and Plan Assessment and plan (1) Abnormal urinalysis: Code(s): R82.90 - Unspecified abnormal findings in urine Status: Acute Assessment and Plan: Likely has infection rather than just colonization. He does have a chronic indwelling Coats catheter. Urine culture pending. Broad-spectrum antibiotics (2) Bilateral hydronephrosis: Code(s): N13.30 - Unspecified hydronephrosis Status: Acute Assessment and Plan: I viewed the CT scan myself. He has mild bilateral hydronephrosis. This could be secondary to the recent obstruction of his Coats catheter. This could also be chronic in nature due to bladder dysfunction and his need for indwelling catheter. I viewed the images myself. I do not see any clear evidence of obstruction. I feel like I can see open ureters all the way down to the level of the bladder which would be more consistent with her reflux rather than obstruction. Will monitor closely. I do not think there is any clear indication for ureteral stents at this point unless he clinically declines (3) Indwelling catheter present on admission: Code(s): Z96.0 - Presence of urogenital implants Status: Acute Assessment and Plan: Present on admission Urology Consult Note HPI Date Seen: 06/23/22 Requesting Physician: Elysia Rausch MD Primary Care Provider: Jyoti CoteMD Consult Narrative Narrative: Taye Marrero Jr. is a 66 year old male who was brought in for change of mental status. He is normally alert orient x3. He now is somnolent. I am unable to obtain any significant history. I have spoken to the nurse and I obtained history from the chart. Apparently has an indwelling Coats catheter. We was brought in his catheter was not draining and was clogged. It was changed in the emergency room and is now draining light pink urine. His urinalysis is abnormal. The presumptive diagnosis is sepsis. He is currently in the IMU. He is afebrile with stable vital signs. I did awaken him but he does not answer questions. He merely opens his eyes then quickly falls back to sleep Review of Systems Review of Systems: ROS unobtainable: Yes unobtainable due to mental status PMFSH Past Medical History Medical History Atrial fibrillation with rapid ventricular response CHF (congestive heart failure) Chronic venous insufficiency COPD (chronic obstructive pulmonary disease) Depression GERD (gastroesophageal reflux disease) HTN (hypertension) Hyperlipidemia Hypothyroid Insulin dependent diabetes mellitus Kidney stones Meniscus, medial, bucket handle tear, old JUN on CPAP Noncompliant with CPAP Peripheral neuropathy Surgical History Surgical History H/O cataract extraction H/O hemorrhoidectomy History of appendectomy History of back surgery Family History Family History Sibling Family history of obesity Hypertension Family history of diabetes mellitus in first degree relative Family history of heart disease in male family member before age 55 Patient's sister is in good health Patient's brother is Mother Family history of arthritis Family history of malignant neoplasm Patient's mother is Father Patient's father is Other Malignant neoplasm of prostate Unknown family medical history Social History Social History Social History: Patient is and his Marlys is his surrogate decision maker. They have 2 sons, and no pets. He is retired from the [employer]. Code status Dnr Smoking packs per day: 2 Smoking cigarettes per day: 40.0 Years smoked: 15 Smoking pack-years: 30.00 Smoking status: Unknown if ever smoked Tobacco type:
[2022-06-23 11:28] LABS: Lactic Acid Reflex 1.3 mmol/L (0.7-2.0)
--- NOTE | 2022-06-23 13:41 | PM.CNCAR ---
Assessment and Plan Assessment and plan (1) Atrial fibrillation with rapid ventricular response: Code(s): I48.91 - Unspecified atrial fibrillation Status: Acute Plan This is a 66-year-old residential resident admitted to the hospital on yet another occasion because of altered mental status. I do not see any clinical evidence or other recent in the chart do think that he has decompensated heart failure. He does appear to have chronic atrial fibrillation and chronically takes carvedilol. Each of the last several admissions that he is here he does have moderately rapid ventricular response but has not been hemodynamically in [place] with that. At this point I would recommend starting him on metoprolol which should provide better heart rate control than carvedilol. I will stop the IV diltiazem and recommend systemic anticoagulation with apixaban. I do not see any contraindications to anticoagulation his chart. Teddy Justin MD [facility] History of Present Illness History of Present Illness Consult date/time: 06/23/22 13:41 Consult reason: atrial fibrillation Reason For Visit: sepsis Narrative: This is a 66-year-old man I am seeing at the request of the hospitalist with the stated reason for consultation atrial fibrillation and congestive heart failure. The patient is unknown to me prior to this admission but does have records that he is frequently admitted here at [facility]. The patient is currently in room 232 he is very poorly responsive sleeping flat in bed does arouse but does not speak to me or answer questions appropriately. Therefore no history is directly obtainable from the patient. According to the chart he is a residential resident and is of rather are chronically debilitated patient has a chronic indwelling Coats catheter. He was sent here to the emergency room yesterday because of altered mental status. According to the records it looks like this is at least the 3rd time he has been sent here in the last for 5 months for altered mental status. It was suspected in the emergency room that his chronic indwelling Coats catheter may be clogged and a urology consult was obtained for that purpose. The patient appears to be a chronic atrial fibrillation since all of her previous admissions show that he is in AFib sometimes with a moderately rapid ventricular response but no apparent other cardiac complaints or concerns. He did have an echocardiogram done several months ago during 1 of the previous admissions that showed his LV systolic function to be vigorous and I did not see any obvious valvular dysfunction. Some of the notes in the chart speak to the fact that he is rate controlled and anticoagulated but I do not see any specific orders on the chart for an anticoagulant. I am not sure if he follows with the director center elsewhere regarding his atrial fibrillation and again no other history is obtainable at the time of this consultation since the patient is very poorly responsive. After being seen in the emergency department yesterday of course he was placed on intravenous diltiazem which has slowed his ventricular response to atrial fibrillation. His home medication list includes carvedilol at a dosage of 12.5 mg q.12 hours, furosemide and insulin as well as thyroid hormone and pravastatin. Review of Systems Review of Systems: ROS unobtainable: Yes unobtainable due to mental status PMFSH Past Medical History Medical History Atrial fibrillation with rapid ventricular response CHF (congestive heart failure) Chronic venous insufficiency COPD (chronic obstructive pulmonary disease) Depression GERD (gastroesophageal reflux disease) HTN (hypertension) Hyperlipidemia Hypothyroid Insulin dependent diabetes mellitus Kidney stones Meniscus, medial, bucket handle tear, old JUN on CPAP Noncompliant with CPAP Peripheral neuropathy Surgical History Surgical
[2022-06-23] MEDS: SILVERGEL (ELTA) 45 ML 1 APPLIC TOPICAL (14:37)
--- NOTE | 2022-06-23 15:23 | WPDGICN ---
Assessment and Plan Assessment and plan (1) Sepsis: Code(s): A41.9 - Sepsis, unspecified organism Status: Acute Assessment and Plan: source of sepsis could be cellulitis (leg sores), UTI, intraabdominal (elevated lactic acid but down after medical treatment) on antibiotics noted cholelithiasis and 4 mm stone in bile duct however liver enzymes normal, will monitor to see clinical response- may need ercp but he was just started on eliquis because afib (2) Acute metabolic encephalopathy: Code(s): G93.41 - Metabolic encephalopathy Status: Acute Assessment and Plan: with sepsis (3) Acute UTI: Code(s): N39.0 - Urinary tract infection, site not specified Status: Acute Assessment and Plan: on abx (4) Atrial fibrillation with rapid ventricular response: Code(s): I48.91 - Unspecified atrial fibrillation Status: Acute Assessment and Plan: by cardiology (5) Choledocholithiasis: Code(s): K80.50 - Calculus of bile duct without cholangitis or cholecystitis without obstruction Status: Acute Assessment and Plan: monitor normal liver enzymes if we decide ercp will need to hold AC GI Consult Note Consult date/time: 06/23/22 15:23 Reason for consult: sepsis, choledocholithiasis HPI: Taye Marrero Jr. is a 66 year old male with history significant for chronic venous stasis, chronic leg ulcer, hypothyroidism, type 2 diabetes mellitus, congestive heart failure, GERD, atrial fibrillation, obstructive sleep apnea on CPAP, chronic indwelling Coats catheter who was brought to the emergency room from skilled nursing where he resides because altered mental status. He has previous hospitalizations with leg infection. He is awake and alert but can not provide good history. In emergency room patient was found to have atrial fibrillation with rapid ventricular response and evaluated by cardiology, started on eliquis, a urinalysis was significant for numerous WBCs present greater than 100 per high power field, lactic acid was 5.1 but down to 1.5, liver enzymes normal including bilirubin. He was also evaluated but urology but no indication to place stents. Started on antibiotics. CT scan showed bilateral pyelitis. Mild right hydroureter. Mild left hydronephrosis and hydroureter, bilateral nonobstructing kidney stones, cholelithiasis. Gallbladder distention may be secondary to fasting. Correlate with physical exam to exclude acute cholecystitis, choledocholithiasis. Review of Systems Review of Systems: ROS unobtainable: Yes unobtainable due to mental status [facility] Past Medical History Medical History (Updated 06/23/22 @ 15:30 by Keven Ferreira MD) Atrial fibrillation with rapid ventricular response CHF (congestive heart failure) Choledocholithiasis Chronic venous insufficiency COPD (chronic obstructive pulmonary disease) Depression GERD (gastroesophageal reflux disease) HTN (hypertension) Hyperlipidemia Hypothyroid Insulin dependent diabetes mellitus Kidney stones Meniscus, medial, bucket handle tear, old JUN on CPAP Noncompliant with CPAP Peripheral neuropathy Surgical History Surgical History H/O cataract extraction H/O hemorrhoidectomy History of appendectomy History of back surgery Family History Family History Sibling Family history of obesity Hypertension Family history of diabetes mellitus in first degree relative Family history of heart disease in male family member before age 55 Patient's sister is in good health Patient's brother is Mother Family history of arthritis Family history of malignant neoplasm Patient's mother is Father Patient's father is Other Malignant neoplasm of prostate Unknown family medical history Social History Socia
--- NOTE | 2022-06-23 16:19 | PC.NURSE ---
New order for Metoprolol Succinate 100mg PO Daily, first dose now was entered at 1400. Cardizem drip was stopped at 1439. BP remains in the 90's systolic. 1600 BP was 94/51. Spoke with Kathie Langford NP regarding patient's soft BP. New order to hold Metoprolol now, and Kathie Langford NP will put in some parameters on this medication.
--- NOTE | 2022-06-23 16:46 | PM.CNGS ---
Assessment and Plan Assessment and plan (1) Sepsis: Code(s): A41.9 - Sepsis, unspecified organism Status: Acute Assessment and Plan: Continue broad-spectrum antibiotics, lactic acidosis resolved with hydration, likely source genitourinary (2) Choledocholithiasis: Code(s): K80.50 - Calculus of bile duct without cholangitis or cholecystitis without obstruction Status: Acute Assessment and Plan: exam benign, labs unremarkable, GI has been consulted if ERCP necessary, would likely need cholecystostomy tube if intervention required (3) Bilateral hydronephrosis: Code(s): N13.30 - Unspecified hydronephrosis Status: Acute Assessment and Plan: continue antibiotics, management per urology (4) Acute UTI: Code(s): N39.0 - Urinary tract infection, site not specified Status: Acute Assessment and Plan: antibiotics (5) A-fib: Code(s): I48.91 - Unspecified atrial fibrillation Status: Acute Assessment and Plan: started on Eliquis per Cardiology, will need to hold if intervention required History of Present Illness Consult details Consult date: 06/23/22 Reason for consult: gallstones Requesting physician: Keven Ferreira MD Narrative: The patient is a 66-year-old male with multiple medical issues presenting to the emergency department with altered mental status. The patient has an indwelling Coats catheter that was found to be clogged. Workup, including imaging, is significant for sepsis. The patient is noted to have bilateral pyelitis, hydroureter. The CT scan was also significant for gallbladder distention, choledocholithiasis. Of note, the patient is alert and oriented x1 and all history is obtained via the chart. Upon questioning, the patient denies any abdominal pain. Review of Systems Review of Systems: ROS unobtainable: Yes unobtainable due to mental status PMFSH Past Medical History Medical History Atrial fibrillation with rapid ventricular response CHF (congestive heart failure) Choledocholithiasis Chronic venous insufficiency COPD (chronic obstructive pulmonary disease) Depression GERD (gastroesophageal reflux disease) HTN (hypertension) Hyperlipidemia Hypothyroid Insulin dependent diabetes mellitus Kidney stones Meniscus, medial, bucket handle tear, old JUN on CPAP Noncompliant with CPAP Peripheral neuropathy Surgical History Surgical History H/O cataract extraction H/O hemorrhoidectomy History of appendectomy History of back surgery Family History Family History Sibling Family history of obesity Hypertension Family history of diabetes mellitus in first degree relative Family history of heart disease in male family member before age 55 Patient's sister is in good health Patient's brother is Mother Family history of arthritis Family history of malignant neoplasm Patient's mother is Father Patient's father is Other Malignant neoplasm of prostate Unknown family medical history Social History Social History Social History: Patient is and his Marlys is his surrogate decision maker. They have 2 sons, and no pets. He is retired from the [employer]. Code status Dnr Smoking packs per day: 2 Smoking cigarettes per day: 40.0 Years smoked: 15 Smoking pack-years: 30.00 Smoking status: Unknown if ever smoked Tobacco type: cigarettes Second hand tobacco smoke exposure: No Smoking end date: 03/02/91 Alcohol intake: never Substance use: unknown Substance use type: unknown Lack of Transportation: No Lack of Food: Never True Current Housing: I Have Housing Concerned About Future H
[2022-06-23] MEDS: APIXABAN 5 MG TABLET PO (22:15)
[2022-06-24] VITALS (11 sets, daily range): BP systolic 99–129; BP diastolic 47–83; PULSE 68–108; RESP 18; TEMP 35.6–36.6; O2SAT 97–100
[2022-06-24] MEDS: PIPERACILLN/TAZ 3.375GM/NS50ML 3.375 GM/50 ML BAG IVPB ×4 (01:39→21:13)
[2022-06-24 05:28] LABS: Estimated CRCL calculation 79 ml/min; Estimated Glomerular Filt Rate > 60
--- NOTE | 2022-06-24 09:07 | PC.NURSE ---
Pt to nuclear medicine for HIDA scan via bed.
--- NOTE | 2022-06-24 11:07 | PM.IMPN ---
Progress Note: A&P Assessment and Plan (1) Sepsis: Code(s): A41.9 - Sepsis, unspecified organism Status: Acute Assessment and Plan: Gram-negative bacilli positive blood cultures Continue IV antibiotics. (2) Acute UTI: Code(s): N39.0 - Urinary tract infection, site not specified Status: Acute Assessment and Plan: Patient started on broad-spectrum antibiotics (3) Altered mental status: Code(s): R41.82 - Altered mental status, unspecified Status: Acute Assessment and Plan: Improved (4) Acute hyperkalemia: Code(s): E87.5 - Hyperkalemia Status: Acute Assessment and Plan: Monitor (5) JUN on CPAP: Code(s): G47.33 - Obstructive sleep apnea (adult) (pediatric); Z99.89 - Dependence on other enabling machines and devices Status: Acute Assessment and Plan: Currently on 4 L by nasal cannula (6) Chronic venous insufficiency: Code(s): I87.2 - Venous insufficiency (chronic) (peripheral) Status: Acute Assessment and Plan: Apply compression stockings (7) Atrial fibrillation with rapid ventricular response: Code(s): I48.91 - Unspecified atrial fibrillation Status: Acute Assessment and Plan: Continue beta-cira and Eliquis (8) Acute congestive heart failure: Code(s): I50.9 - Heart failure, unspecified Status: Acute Assessment and Plan: Monitor volume status. Prior echo noted. (9) Choledocholithiasis: Code(s): K80.50 - Calculus of bile duct without cholangitis or cholecystitis without obstruction Status: Acute Assessment and Plan: Appreciate GI and surgical input. HIDA scan pending Subjective Date/time seen: 06/24/22 11:07 No complaints Blood cultures positive for Gram-negative bacilli Exam Narrative: Patient is laying in a stretcher Const: General: comfortable, no acute distress, well developed, ill appearing other (Chronically looking), lethargic, patient obtunded, average body habitus and obese Nutritional Appearance: average body habitus and obese Orientation/consciousness: patient oriented x3, patient obtunded and lethargic Other: Patient is staring into space, blank staring. HENMT: Head: normal to inspection, normocephalic and atraumatic Ears: external ears normal Face/Nose/Sinus: normal facial exam Face and sinus: normal facial exam Eyes: General: appearance normal, both eyes and all related structures Pupils: Equal, round and reactive pupils present EOM: EOMs intact bilaterally Neck: Neck: full ROM, no lymphadenopathy and no JVD Thyroid: thyroid normal Lymphatic: no lymphadenopathy noted Resp: Effort & Inspection: normal respiratory effort and able to speak in complete sentences Auscultation: clear to auscultation bilaterally Cardio: Jugular venous distension: no JVD Rate: tachycardic Rhythm: abnormal rhythm irregularly irregular Heart sounds: S1 normal heart sound present and S2 normal heart sound present GI: Inspection: normal to inspection : General: Yes deferred Skin: General skin exam: wounds noted (Excoriation healed wounds to bilateral lower extremities) Rashes: no rashes Wounds: wounds noted (Excoriation healed wounds to bilateral lower extremities) Other: Chronic skin changes and discoloration bilateral lower extremities Neuro: General: patient oriented x3, patient obtunded, Unable to assess gait and other (Lethargy) Cranial nerves: Yes Equal, round and reactive pupils present, Yes Bilaterally intact EOM present and Yes Nystagmus not present Cognition (Neuro): abnormal cognition (Lethargy obtundation) Speech: Other speech findings present (Neuro) (Unable to assess) Gait exam (Neuro): Unable to assess gait Motor exam (neuro): 5/5 motor strength present throughout Extrem: General: edema bilateral (3+) Objective Data Vital Signs Vital Signs: Vital Signs - 24 hr 06/23/22 12:04 06/23/22 12:00 06/23/22 12:00
--- NOTE | 2022-06-24 11:22 | PC.NURSE ---
Pt returned from nuclear medicine with no issues noted
[2022-06-24] MEDS: SILVERGEL (ELTA) 45 ML 1 APPLIC TOPICAL (12:07)
[2022-06-24] MEDS: APIXABAN 5 MG TABLET PO ×2 (12:07→20:31)
[2022-06-24] MEDS: METOPROLOL SUCCINATE EXT REL 100 MG TABCR PO (12:07)
--- NOTE | 2022-06-24 14:01 | WPDGIPROGNO ---
Progress Note: A&P Assessment and Plan (1) Gram-negative bacteremia: Code(s): R78.81 - Bacteremia Status: Acute Assessment and Plan: most likely source of infection if liver enzymes normal, had incidental finding of small stone in bile duct but non-obstructive and bili was normal, furthermore he does not have abdominal pain making this source unlikely also on blood thinners, hold off ercp unless change in clinical course- patient is already doing much better surgery also evaluated patient because cholelithiasis and GB dysfunction (2) Indwelling catheter present on admission: Code(s): Z96.0 - Presence of urogenital implants Status: Acute (3) Acute metabolic encephalopathy: Code(s): G93.41 - Metabolic encephalopathy Status: Acute Assessment and Plan: improved (4) Sepsis: Code(s): A41.9 - Sepsis, unspecified organism Status: Acute Assessment and Plan: better (5) Acute UTI: Code(s): N39.0 - Urinary tract infection, site not specified Status: Acute Assessment and Plan: on abx (6) A-fib: Code(s): I48.91 - Unspecified atrial fibrillation Status: Acute Assessment and Plan: by cardiology on blood thinner Subjective Date/time seen: 06/24/22 14:01 Interval history: he is more awake and interacting, just had burger for lunch, no abdominal pain Review of Systems Review of Systems: All systems reviewed & are unremarkable except as noted in HPI and below Exam Const: General: ill appearing, tired appearing and obese HENMT: Head: normal to inspection, normocephalic and atraumatic Eyes: General: appearance normal, both eyes and all related structures Neck: Neck: normal visual inspection, full ROM and no lymphadenopathy Resp: Auscultation: diminished lung sounds Cardio: Rate: tachycardic Rhythm: regular rhythm GI: Inspection: normal to inspection, distended and incision GI Palp: No abdominal tenderness, Yes Soft to palpation, No Tenderness to palpation present (GI), No Guarding due to palpation present (GI) and No Rigid due to palpation Skin: Other: chronic venous stasis legs Neuro: General: oriented to person Extrem: General: full ROM Psych: Other: awake and interacting Objective Data Vital Signs Vital Signs: Vital Signs - 24 hr 06/23/22 16:00 06/23/22 16:00 06/23/22 16:00 Temperature 97.1 F L Pulse Rate 82 84 Respiratory Rate 16 Blood Pressure 94/51 L Pulse Oximetry 94 95 Oxygen Delivery Room Air Oxygen Flow Rate 06/23/22 18:00 06/23/22 23:16 06/23/22 20:00 Temperature 97.6 F Pulse Rate 74 78 83 Respiratory Rate 20 Blood Pressure 95/55 L Pulse Oximetry 98 96 Oxygen Delivery Nasal Cannula Oxygen Flow Rate 2 06/24/22 00:00 06/24/22 04:00 06/24/22 04:00 Temperature 97.5 F L Pulse Rate 83 83 70 Respiratory Rate 18 Blood Pressure 99/47 L Pulse Oximetry 98 100 97 Oxygen Delivery Nasal Cannula Room Air Oxygen Flow Rate 2 06/23/22 20:00 06/23/22 22:00 06/24/22 00:00 Temperature Pulse Rate 83 73 68 Respiratory Rate Blood Pressure Pulse Oximetry Oxygen Delivery Oxygen Flow Rate 06/24/22 02:00 06/24/22 04:00 06/24/22 06:00 Temperature Pulse Rate 80 71 78 Respiratory Rate Blood Pressure Pulse Oximetry Oxygen Delivery Oxygen Flow Rate 06/24/22 08:00 06/24/22 12:07 06/24/22 08:00 Temperature 97 F L Pulse Rate 85 108 H 83 Respiratory Rate 18 Blood Pressure 105/55 L Pulse Oximetry 98 100 Oxygen Delivery Room Air Oxygen Flow Rate Intake/Output Intake/Output: Intake & Output 06/21/22 06/22/22 06/23/22 06/24/22 23:59 23:59 23:59 23:59 Intake Total 3669.4 100 Output Total 1500 300 Balance 2169.4 -200 Meds/Results Medications: Active Medications Generic Name Dose Route Start Last Admin Trade Name Freq PRN Reason Stop Dose Admin Apixaban 5 mg 0
[2022-06-24 14:24] LABS: Vancomycin Trough 31.5 ug/mL (10.0-20.0)
--- NOTE | 2022-06-24 15:57 | PC.NURSE ---
This patient, Taye Marrero Jr., was transferred to [ [id number]] on 06/24/22 at 1550. Personal belongings sent with patient. Report given to [ RONNIE Ambrose @ [id number]]. Appropriate documentation sent with patient.
--- NOTE | 2022-06-24 16:05 | PC.NURSE ---
This patient, Taye Marrero , was received from IMU on 06/24/22 at 1606. Patient oriented to unit policies and routines. Patient in bed resting comfortably with no complaints at this time.
[2022-06-25] VITALS (10 sets, daily range): BP systolic 123–147; BP diastolic 71–80; PULSE 67–84; RESP 12–20; TEMP 36–36.6; O2SAT 93–100
[2022-06-25] MEDS: PIPERACILLN/TAZ 3.375GM/NS50ML 3.375 GM/50 ML BAG IVPB ×4 (02:40→20:19)
[2022-06-25 05:36] LABS: Alanine Aminotransferase 10 U/L (6-50); Alkaline Phosphatase 68 U/L (38-126); Anion Gap 4 mmol/L (8-16); Aspartate Amino Transferase 19 U/L (17-59); Bilirubin,Total 0.6 mg/dL (0.2-1.3); Blood Urea Nitrogen 25 mg/dL (9-20); Calcium 9.4 mg/dL (8.4-10.2); Carbon Dioxide 27 mmol/L (22-30); Chloride 101 mmol/L (98-107); Estimated CRCL calculation 91 ml/min; Estimated Glomerular Filt Rate > 60; Glucose 188 mg/dL (65-110); Potassium 3.4 mmol/L (3.4-5.0); Sodium 132 mmol/L (137-145)
[2022-06-25 05:37] LABS: Hematocrit 34.6 % (42.0-52.0); Hemoglobin 10.9 g/dL (14.0-18.0); Mean Corpuscular HGB Conc 31.5 g/dl (32-36); Mean Corpuscular Hemoglobin 27.4 pg (26-34); Mean Corpuscular Volume 86.9 fl (80-100); Mean Platelet Volume 10.1 fl (7.4-10.4); Platelet Count Result 218 k/mm3 (150-375); Red Blood Count 3.98 M/mm3 (4.6-6.20); Red Cell Distribution Width 14.6 % (11.5-14.5); White Blood Count 12.1 K/mm3 (4.5-10.0)
[2022-06-25] MEDS: APIXABAN 5 MG TABLET PO (08:24)
[2022-06-25] MEDS: METOPROLOL SUCCINATE EXT REL 100 MG TABCR PO (08:24)
[2022-06-25] MEDS: SILVERGEL (ELTA) 45 ML 1 APPLIC TOPICAL (08:27)
--- NOTE | 2022-06-25 09:42 | P.CDI_ITS ---
CDI Query Clarification Request due to chronic houston catheter <Nataliya Way MD - Last Filed: 06/25/22 12:26> Clarified Diagnosis Clarified Diagnosis: Urine culture from 06/23/22 grew > 100,000 Proteus Mirabilis Chronic indwelling houston catheter documented. Patient started on IV Zosyn Q 6 hours and IV Vancomycin Q12 hours Clarification request - UTI has been documented, chronic indwelling houston catheter documented. Please clarify if UTI is: * due to/associated with chronic indwelling houston catheter * not due to/associated with chronic indwelling houston catheter * unable to determine <Pat Lynch RN - Last Filed: 06/25/22 09:53>
--- NOTE | 2022-06-25 09:57 | P.CDI_ITS ---
CDI Query Clarification Request Chronic Diastolic HF <Nataliya Way MD - Last Filed: 06/25/22 12:25> Clarified Diagnosis Clarified Diagnosis: BNP elevated on 06/23/22 lab work. Furosemide listed as a home medication. Chest Xray from 06/23 notes pulmonary edema. CHF noted on the assessment and plan. Documented history of CHF. Please specify type and acuity of heart failure if known. * Acute * Chronic * Acute on Chronic * Unknown * Systolic * Diastolic * Combined Systolic and Diastolic * Unknown <Pat Lynch RN - Last Filed: 06/25/22 10:00>
--- NOTE | 2022-06-25 11:16 | PC.NURSE ---
On 06/25/22, the student, [Reynaldo Mathews], provided care and completed [facility] documentation on this patient. I have reviewed the student's documentation and agree with the findings.
--- NOTE | 2022-06-25 12:26 | PM.IMPN ---
Progress Note: A&P Assessment and Plan (1) Gram-negative bacteremia: Code(s): R78.81 - Bacteremia Status: Acute (2) Indwelling catheter present on admission: Code(s): Z96.0 - Presence of urogenital implants Status: Acute (3) Bilateral hydronephrosis: Code(s): N13.30 - Unspecified hydronephrosis Status: Acute (4) Abnormal urinalysis: Code(s): R82.90 - Unspecified abnormal findings in urine Status: Acute (5) Sepsis: Code(s): A41.9 - Sepsis, unspecified organism Status: Acute (6) Altered mental status: Code(s): R41.82 - Altered mental status, unspecified Status: Acute Plan ?66-year-old male with past medical history significant for chronic venous stasis, chronic leg ulcer, hypothyroidism, type 2 diabetes mellitus, congestive heart failure, GERD, atrial fibrillation, chronic houston brought to ER with mental status changes. Was found to be in Afibb with RVR. 1)Afibb with RVR: now rate controlled Appreciate cardiology help c/w metoprolol Will hold eliquis, will put him on lovenox in case needs any surgical intervention 2)Acute Encephalopathy: 2/2 sepsis has improved 3)Sepsis with gram negative bacteremia: blood culture growing pseudomonas, proteus Urine culture grew proteus Repeat blood culture MRSA nares positive c/w Vanc+Zosyn HIDA scan with chronic cholecystitis ?Need to transfer to [facility] Will touch base with Urology and Surgery before finalizing the decision 4)Chronic Diastolic HF: On 4l NC, chronic Stable 5)DVT ppx:lovenox 6)Code:Full 7)Dispo:pending improvement, likely will need transfer to higher centre Time Spent With Patient Time with patient: 25 - 35 minutes Subjective Date/time seen: 06/25/22 12:26 Interval history: very hard of hearing Has no complaints at the moment No acute events overnight Review of Systems Review of Systems: All systems reviewed & are unremarkable except as noted in HPI and below Exam Const: General: comfortable and no acute distress HENMT: Mouth: Yes moist mucous membranes Eyes: Sclera: sclerae normal Neck: Neck: supple Resp: Auscultation: clear to auscultation bilaterally Cardio: Rate: regular rate Rhythm: regular rhythm GI: GI Palp: Yes Soft to palpation Auscultation: normal bowel sounds Urinary Catheter: Urinary Catheter: patent and draining Extrem: General: pedal edema Psych: Mental Status: mental status grossly normal Objective Data Vital Signs Vital Signs: Vital Signs - 24 hr 06/24/22 17:03 06/24/22 16:00 06/24/22 20:54 Temperature 97.9 F 96.0 F L Pulse Rate 83 102 H 85 Respiratory Rate 18 18 Blood Pressure 129/79 116/83 Pulse Oximetry 100 99 Oxygen Delivery 06/24/22 20:00 06/24/22 20:00 06/25/22 00:00 Temperature 97.2 F L Pulse Rate 96 85 77 Respiratory Rate 18 20 Blood Pressure 125/79 Pulse Oximetry 99 95 Oxygen Delivery Room Air 06/25/22 00:00 06/25/22 04:00 06/25/22 05:15 Temperature 96.8 F L Pulse Rate 80 82 84 Respiratory Rate 20 Blood Pressure 123/71 Pulse Oximetry 93 Oxygen Delivery 06/25/22 08:24 06/25/22 08:00 06/25/22 08:00 Temperature 97.9 F Pulse Rate 80 77 69 Respiratory Rate 14 Blood Pressure 135/80 Pulse Oximetry 95 Oxygen Delivery Intake/Output Intake/Output: Intake & Output 06/22/22 06/23/22 06/24/22 06/25/22 23:59 23:59 23:59 23:59 Intake Total 3669.4 920 730 Output Total 1500 1300 750 Balance 2169.4 -380 -20 Meds/Results Medications: Active Medications Generic Name Dose Route Start Last Admin Trade Name Brandtq PRN Reason Stop Dose Admin Apixaban 5 mg 06/23/22 21:00 06/25/22 08:24 Apixaban 5 Mg Tablet PO 5 mg Q12HR HERMILO Administration Vancomycin HCl 1,500 mg in 500 mls @ 250 mls/hr 06/23/22 15:00 06/24/22 03:10 Vancomycin 1,500 Mg/D5w 500 Ml IVPB 250 mls/hr Q12H HERMILO Administration Piperacillin/Tazobact
--- NOTE | 2022-06-25 12:44 | PCCCNOTE ---
On 06/25/22, the student, [Bree Winkler], provided care and completed [facility] documentation on this patient. I have reviewed the student's documentation and agree with the findings.
--- NOTE | 2022-06-25 13:23 | WPDGIPROGNO ---
Progress Note: A&P Assessment and Plan (1) Sepsis: Code(s): A41.9 - Sepsis, unspecified organism Status: Acute Assessment and Plan: treated on abx (2) Acute UTI: Code(s): N39.0 - Urinary tract infection, site not specified Status: Acute Assessment and Plan: proteus (urine and blood culture) abx by primary and he is responding (3) Gram-negative bacteremia: Code(s): R78.81 - Bacteremia Status: Acute (4) Acute metabolic encephalopathy: Code(s): G93.41 - Metabolic encephalopathy Status: Acute Assessment and Plan: resolved (5) Choledocholithiasis: Code(s): K80.50 - Calculus of bile duct without cholangitis or cholecystitis without obstruction Status: Acute Assessment and Plan: with normal liver enzymes, also had cholelithiasis, did not have abdominal pain- unlikely source of infection, probably is related Subjective Date/time seen: 06/25/22 13:23 Interval history: he is awake and alert, back to his baseline, tolerating diet, no abd pain. He says that urine is clear now. Review of Systems Review of Systems: All systems reviewed & are unremarkable except as noted in HPI and below Exam Const: General: ill appearing and obese HENMT: Head: normal to inspection, normocephalic and atraumatic Eyes: General: appearance normal, both eyes and all related structures Neck: Neck: normal visual inspection, full ROM and no lymphadenopathy Resp: Auscultation: diminished lung sounds Cardio: Rhythm: regular rhythm GI: Inspection: normal to inspection, distended and incision GI Palp: No abdominal tenderness, Yes Soft to palpation, No Tenderness to palpation present (GI), No Guarding due to palpation present (GI) and No Rigid due to palpation Skin: Other: chronic venous stasis legs Neuro: General: oriented to person Speech: normal speech Motor exam (neuro): 5/5 motor strength present throughout Extrem: General: full ROM Psych: Affect: normal affect Other: awake and interacting Objective Data Vital Signs Vital Signs: Vital Signs - 24 hr 06/24/22 17:03 06/24/22 16:00 06/24/22 20:54 Temperature 97.9 F 96.0 F L Pulse Rate 83 102 H 85 Respiratory Rate 18 18 Blood Pressure 129/79 116/83 Pulse Oximetry 100 99 Oxygen Delivery 06/24/22 20:00 06/24/22 20:00 06/25/22 00:00 Temperature 97.2 F L Pulse Rate 96 85 77 Respiratory Rate 18 20 Blood Pressure 125/79 Pulse Oximetry 99 95 Oxygen Delivery Room Air 06/25/22 00:00 06/25/22 04:00 06/25/22 05:15 Temperature 96.8 F L Pulse Rate 80 82 84 Respiratory Rate 20 Blood Pressure 123/71 Pulse Oximetry 93 Oxygen Delivery 06/25/22 08:24 06/25/22 08:00 06/25/22 08:00 Temperature 97.9 F Pulse Rate 80 77 69 Respiratory Rate 14 Blood Pressure 135/80 Pulse Oximetry 95 Oxygen Delivery Intake/Output Intake/Output: Intake & Output 06/22/22 06/23/22 06/24/22 06/25/22 23:59 23:59 23:59 23:59 Intake Total 3669.4 920 850 Output Total 1500 1300 1800 Balance 2169.4 -440 -915 Meds/Results Medications: Active Medications Generic Name Dose Route Start Last Admin Trade Name Freq PRN Reason Stop Dose Admin Dextrose 12.5 gm 06/25/22 12:54 Dextrose 50% 25 Gm/50 Ml Syringe IV PUSH PRN PRN Hypoglycemia Protocol Enoxaparin Sodium 100 mg 06/25/22 21:00 Enoxaparin 100 Mg/Ml Syringe SUB-Q Q12HR HERMILO Glucagon 1 mg 06/25/22 12:54 Glucagon For Inj 1 Mg Vial IM PRN PRN Hypoglycemia Protocol Glucose 15 gm 06/25/22 12:54 Glucose Oral Gel 15 Gm Of Glucse In 37.5 Gm Tube PO PRN PRN Hypoglycemia Protocol Vancomycin HCl 1,500 mg in 500 mls @ 250 mls/hr 06/23/22 15:00 06/24/22 03:10 Vancomycin 1,500 Mg/D5w 500 Ml IVPB 250 mls/hr Q12H HERMILO Administration Piperacillin/Tazobactam/Dextrose 3.375 gm in 50 mls @ 100 mls/hr 06/25/22 03:00
[2022-06-25 14:51] LABS: Vancomycin Trough 16.7 ug/mL (10.0-20.0)
[2022-06-25] MEDS: TOLNAFTATE 1% POWDER 45 GM BTL 1 APPLIC TOPICAL ×2 (14:56→20:21)
--- NOTE | 2022-06-25 15:04 | PM.PNGS ---
Progress Note: A&P Assessment and Plan (1) Sepsis: Code(s): A41.9 - Sepsis, unspecified organism Status: Acute Assessment and Plan: Most likely source is . Continue broad-spectrum IV antibiotics, lactic acidosis resolved with medical treatment. Urine cx growing proteus mirabilis. Prelim blood cx growing proteus and pseudomonas aeruginoa. (2) Choledocholithiasis: Code(s): K80.50 - Calculus of bile duct without cholangitis or cholecystitis without obstruction Status: Acute Assessment and Plan: CT showing small common duct stone, LFTs normal. GI following and planning to hold off on ERCP for now. HIDA scan reviewed, does not appear to have acute cholecystitis as his cystic duct is patent. GB EF noted to be low at <10%. Rec low fat diet. No indication for any urgent surgical intervention at this time. Continue to treat his bacteremia/sepsis and issues. (3) Bilateral hydronephrosis: Code(s): N13.30 - Unspecified hydronephrosis Status: Acute Assessment and Plan: Urology following. (4) Acute UTI: Code(s): N39.0 - Urinary tract infection, site not specified Status: Acute Assessment and Plan: Continue antibiotics. (5) A-fib: Code(s): I48.91 - Unspecified atrial fibrillation Status: Acute Assessment and Plan: Vinicio currently on hold, on therapeutic-dosed Lovenox. Plan I have discussed the patient's case and plan of care with Dr. Hoff. Subjective Subjective Date/Time Seen: 06/25/22 15:04 Patient reports: afebrile Interval history: This is a 66 yo M with multiple medical problems who presented to the ER for AMS. Workup showed sepsis as well as bilateral renal stones with urinary tract infection, bilateral hydronephrosis with a clogged houston catheter, as well as cholelithiasis with choledocholithiasis. He also has a hx of afib and went into RVR while admitted. His Eliquis has been on hold, but this was put on hold and now on therapeutic Lovenox. He has been admitted and started on broad-spectrum IV antibiotics. Chart reviewed. HIDA scan done yesterday and showed EF < 10%. Patient seen today. He answers questions appropriately. He denies any abdominal pain and has tolerated a regular diet today. No other specific complaints at this time. Exam Const: General: no acute distress and awake GI: Inspection: non-distended GI Palp: Yes Soft to palpation, No Tenderness to palpation present (GI), No Guarding due to palpation present (GI) and No Rebound tenderness present Auscultation: normal bowel sounds Objective Data Vital Signs Vital Signs: Vital Signs - 24 hr 06/24/22 17:03 06/24/22 16:00 06/24/22 20:54 Temperature 97.9 F 96.0 F L Pulse Rate 83 102 H 85 Respiratory Rate 18 18 Blood Pressure 129/79 116/83 Pulse Oximetry 100 99 Oxygen Delivery 06/24/22 20:00 06/24/22 20:00 06/25/22 00:00 Temperature 97.2 F L Pulse Rate 96 85 77 Respiratory Rate 18 20 Blood Pressure 125/79 Pulse Oximetry 99 95 Oxygen Delivery Room Air 06/25/22 00:00 06/25/22 04:00 06/25/22 05:15 Temperature 96.8 F L Pulse Rate 80 82 84 Respiratory Rate 20 Blood Pressure 123/71 Pulse Oximetry 93 Oxygen Delivery 06/25/22 08:24 06/25/22 08:00 06/25/22 08:00 Temperature 97.9 F Pulse Rate 80 77 69 Respiratory Rate 14 Blood Pressure 135/80 Pulse Oximetry 95 Oxygen Delivery 06/25/22 12:00 06/25/22 14:00 Temperature 97.7 F Pulse Rate 76 67 Respiratory Rate 12 Blood Pressure 131/71 Pulse Oximetry 100 Oxygen Delivery Intake/Output Intake/Output: Intake & Output 06/22/22 06/23/22 06/24/22 06/25/22 23:59 23:59 23:59 23:59 Intake Total 3669.4 920 1330 Output Total 1500 1300 1800 Balance 2169.4 -565 -512 Meds/Results Medications: Active Medications Generic Name Dose Route Start Last Admin Trade Name Freq PRN Reason Stop Dose Admin Dextrose 12.5 gm 06/25/22 12:5
[2022-06-25 16:18] LABS: Glucose Point of Care 236 mg/dl (65-105)
[2022-06-25] MEDS: INSULIN ASPART (*BKC) 100 UNITS/ML SUB-Q (17:11)
[2022-06-25] MEDS: INSULIN GLARGINE (*BKC) 100 UNITS/ML 10 UNITS SUB-Q (20:19)
[2022-06-25] MEDS: ENOXAPARIN 100 MG/ML SYRINGE SUB-Q (20:19)
[2022-06-25 20:37] LABS: Glucose Point of Care 287 mg/dl (65-105)
[2022-06-26] VITALS (9 sets, daily range): BP systolic 138–150; BP diastolic 68–82; PULSE 63–79; RESP 16–18; TEMP 36.5–36.6; O2SAT 97–98
[2022-06-26] MEDS: PIPERACILLN/TAZ 3.375GM/NS50ML 3.375 GM/50 ML BAG IVPB ×3 (02:54→15:51)
[2022-06-26 05:20] LABS: Basophils Absolute Auto 0.1 K/mm3 (0.0-0.1); Basophils Percent Auto 0.8 % (0.2-1.2); Eosinophils Absolute Auto 0.9 K/mm3 (0-0.3); Eosinophils Percent Auto 8.5 % (0-4.4); Hematocrit 36.6 % (42.0-52.0); Hemoglobin 11.7 g/dL (14.0-18.0); Immature Granulocyte Absolute 0.06 K/mm3 (0.00-0.031); Immature Granulocyte Percent A 0.6 % (0-0.5); Lymphocytes Absolute Auto 1.86 K/mm3 (0.9-3.2); Lymphocytes Percent Auto 18.2 % (18.3-44.2); Mean Corpuscular Hemoglobin 27.2 pg (26-34); Mean Corpuscular Volume 85.1 fl (80-100); Mean Platelet Volume 10.2 fl (7.4-10.4); Monocytes Absolute Auto 0.9 K/mm3 (0.1-0.6); Monocytes Percent Auto 8.5 % (2.6-8.5); Neutrophils Absolute Auto 6.5 K/mm3 (1.3-6.7); Neutrophils Percent Auto 63.4 % (45.5-73.1); Platelet Count Result 223 k/mm3 (150-375); Red Cell Distribution Width 14.5 % (11.5-14.5); White Blood Count 10.2 K/mm3 (4.5-10.0)
[2022-06-26] MEDS: LEVOTHYROXINE SODIUM 100 MCG TABLET PO (05:33)
[2022-06-26 05:39] LABS: Anion Gap 5 mmol/L (8-16); Blood Urea Nitrogen 15 mg/dL (9-20); Calcium 9.5 mg/dL (8.4-10.2); Carbon Dioxide 26 mmol/L (22-30); Chloride 100 mmol/L (98-107); Estimated CRCL calculation 127 ml/min; Estimated Glomerular Filt Rate > 60; Glucose 169 mg/dL (65-110); Potassium 3.6 mmol/L (3.4-5.0); Sodium 131 mmol/L (137-145)
[2022-06-26 07:37] LABS: Glucose Point of Care 164 mg/dl (65-105)
[2022-06-26] MEDS: METOPROLOL SUCCINATE EXT REL 100 MG TABCR PO (08:47)
[2022-06-26] MEDS: ENOXAPARIN 100 MG/ML SYRINGE SUB-Q ×2 (08:48→21:15)
[2022-06-26] MEDS: TOLNAFTATE 1% POWDER 45 GM BTL 1 APPLIC TOPICAL ×2 (11:31→21:15)
[2022-06-26] MEDS: SILVERGEL (ELTA) 45 ML 1 APPLIC TOPICAL (11:32)
[2022-06-26 12:03] LABS: Glucose Point of Care 160 mg/dl (65-105)
--- NOTE | 2022-06-26 12:10 | PCNFU ---
Nutrition Follow-Up Complete: Inadequate energy intake related to NPO status as evidenced by current diet orders goal: PO intake 75% of meals Patient is progressing towards goal. We will continue current goal. Pt current nutrition is Low Fat/DBCC Last recorded weight is 137 kg. Bowel Motility:+BM reported 06/25 Labs Reviewed:Glu 169, Na 131, Hct 36.6,Hgb 11.7 Meds Noted:Lovenox, Toprol, Synthroid, Zosyn, Lantus Skin: WNL Additional Notes: Patient remains on a Low Fat/DBCC diet. Discussed oral intake with [employer] today due to patient sleeping. Patient likes fruit, but limited appetite at this time. Ensure compact remain on trays and encouraged for an additional 220 kcals and 9 gms protein. Agree with diet orders. Monitor for diet advancement, intake, wt, labs. Follow up in 5 days.
--- NOTE | 2022-06-26 12:39 | PM.IMPN ---
Progress Note: A&P Assessment and Plan (1) Gram-negative bacteremia: Code(s): R78.81 - Bacteremia Status: Acute (2) Indwelling catheter present on admission: Code(s): Z96.0 - Presence of urogenital implants Status: Acute (3) Bilateral hydronephrosis: Code(s): N13.30 - Unspecified hydronephrosis Status: Acute (4) Abnormal urinalysis: Code(s): R82.90 - Unspecified abnormal findings in urine Status: Acute (5) Sepsis: Code(s): A41.9 - Sepsis, unspecified organism Status: Acute (6) Altered mental status: Code(s): R41.82 - Altered mental status, unspecified Status: Acute Plan ?66-year-old male with past medical history significant for chronic venous stasis, chronic leg ulcer, hypothyroidism, type 2 diabetes mellitus, congestive heart failure, GERD, atrial fibrillation, chronic [place] brought to ER with mental status changes. Was found to be in Afibb with RVR. 1)Afibb with RVR: now rate controlled Appreciate cardiology help c/w metoprolol Will hold eliquis, c/w lovenox in case needs any surgical intervention 2)Acute Encephalopathy: 2/2 sepsis little lethargic today, will monitor closely 3)Sepsis with gram negative bacteremia: blood culture growing pseudomonas, proteus Urine culture grew proteus Repeat blood culture MRSA nares positive c/w Vanc+Zosyn HIDA scan with chronic cholecystitis D/w with Urology over phone, plan to c/w abx, does have kidney stones which if ever needed intervention, will have to go to tertiary care centre, also has chronic [place] which makes it harder to treat No surgical intervention needed at the moment as per GI and Surgery 4)Chronic Diastolic HF: On 4l NC, chronic Stable 5)DVT ppx:lovenox 6)Code:Full 7)Dispo:pending improvement Time Spent With Patient Time with patient: 25 - 35 minutes Subjective Date/time seen: 06/26/22 12:39 Interval history: seems lethargic as compared to yesterday, ?may be its very early in morning Review of Systems Review of Systems: unable to obtain today Exam Const: General: comfortable HENMT: Mouth: Yes moist mucous membranes Eyes: Sclera: sclerae normal Neck: Neck: supple Resp: Auscultation: clear to auscultation bilaterally Cardio: Rate: regular rate Rhythm: regular rhythm GI: GI Palp: Yes Soft to palpation Auscultation: normal bowel sounds Urinary Catheter: Urinary Catheter: patent and draining Extrem: General: pedal edema Other: b/l chronic venous stasis with dermatitis Objective Data Vital Signs Vital Signs: Vital Signs - 24 hr 06/25/22 14:00 06/25/22 16:00 06/25/22 22:00 Temperature 97.7 F 97.1 F L Pulse Rate 67 75 81 Respiratory Rate 12 16 Blood Pressure 131/71 147/78 H Pulse Oximetry 100 100 Oxygen Delivery 06/25/22 20:00 06/25/22 20:00 06/26/22 00:00 Temperature Pulse Rate 73 81 73 Respiratory Rate 16 Blood Pressure Pulse Oximetry 100 Oxygen Delivery Room Air 06/26/22 04:00 06/26/22 08:46 06/26/22 08:47 Temperature Pulse Rate 79 78 78 Respiratory Rate Blood Pressure 138/81 Pulse Oximetry Oxygen Delivery 06/26/22 08:40 06/26/22 08:00 Temperature Pulse Rate 69 Respiratory Rate Blood Pressure Pulse Oximetry Oxygen Delivery Room Air Intake/Output Intake/Output: Intake & Output 06/23/22 06/24/22 06/25/22 06/26/22 23:59 23:59 23:59 23:59 Intake Total 3669.4 920 2350 1200 Output Total 1500 1300 2650 1025 Balance 2169.4 -380 -300 175 Meds/Results Medications: Active Medications Generic Name Dose Route Start Last Admin Trade Name Freq PRN Reason Stop Dose Admin Dextrose 12.5 gm 06/25/22 12:54 Dextrose 50% 25 Gm/50 Ml Syringe IV PUSH PRN PRN Hypoglycemia Protocol Enoxaparin Sodium 100 mg 06/25/22 21:00 06/26/22 08:48 Enoxaparin 100 Mg/Ml Syringe SUB-Q 100 mg Q12HR HERMILO Administration Glucagon 1 mg
--- NOTE | 2022-06-26 16:28 | WPDGIPROGNO ---
Progress Note: A&P Assessment and Plan (1) Sepsis: Code(s): A41.9 - Sepsis, unspecified organism Status: Acute Assessment and Plan: with bacteremia, probably source on abx (2) Acute UTI: Code(s): N39.0 - Urinary tract infection, site not specified Status: Acute Assessment and Plan: proteus (urine and blood culture) abx by primary urology on board (3) Gram-negative bacteremia: Code(s): R78.81 - Bacteremia Status: Acute Assessment and Plan: repeat set of blood cultures (4) Acute metabolic encephalopathy: Code(s): G93.41 - Metabolic encephalopathy Status: Acute (5) Choledocholithiasis: Code(s): K80.50 - Calculus of bile duct without cholangitis or cholecystitis without obstruction Status: Acute Assessment and Plan: he had normal liver enzymes, also had cholelithiasis, did not have abdominal pain- unlikely source of infection, probably is related Subjective Date/time seen: 06/26/22 10:00 Interval history: awake and alert but more sleepy today Review of Systems Review of Systems: All systems reviewed & are unremarkable except as noted in HPI and below Exam Const: General: comfortable HENMT: Mouth: Yes moist mucous membranes Eyes: Sclera: sclerae normal Neck: Neck: supple Resp: Auscultation: clear to auscultation bilaterally Cardio: Rate: regular rate Rhythm: regular rhythm GI: GI Palp: Yes Soft to palpation and No Guarding due to palpation present (GI) Auscultation: normal bowel sounds Urinary Catheter: Urinary Catheter: patent and draining Neuro: Speech: normal speech Other: sleepy Extrem: General: pedal edema Other: b/l chronic venous stasis with dermatitis Psych: Affect: No Hostile affect present Objective Data Vital Signs Vital Signs: Vital Signs - 24 hr 06/25/22 22:00 06/25/22 20:00 06/25/22 20:00 Temperature 97.1 F L Pulse Rate 81 73 81 Respiratory Rate 16 16 Blood Pressure 147/78 H Pulse Oximetry 100 100 Oxygen Delivery Room Air 06/26/22 00:00 06/26/22 04:00 06/26/22 08:46 Temperature Pulse Rate 73 79 78 Respiratory Rate Blood Pressure 138/81 Pulse Oximetry Oxygen Delivery 06/26/22 08:47 06/26/22 08:40 06/26/22 08:00 Temperature Pulse Rate 78 69 Respiratory Rate Blood Pressure Pulse Oximetry Oxygen Delivery Room Air 06/26/22 12:00 Temperature Pulse Rate 77 Respiratory Rate Blood Pressure Pulse Oximetry Oxygen Delivery Intake/Output Intake/Output: Intake & Output 06/23/22 06/24/22 06/25/22 06/26/22 23:59 23:59 23:59 23:59 Intake Total 3669.4 920 2350 1200 Output Total 1500 1300 2650 1025 Balance 2169.4 -380 -300 175 Meds/Results Medications: Active Medications Generic Name Dose Route Start Last Admin Trade Name Freq PRN Reason Stop Dose Admin Dextrose 12.5 gm 06/25/22 12:54 Dextrose 50% 25 Gm/50 Ml Syringe IV PUSH PRN PRN Hypoglycemia Protocol Enoxaparin Sodium 100 mg 06/25/22 21:00 06/26/22 08:48 Enoxaparin 100 Mg/Ml Syringe SUB-Q 100 mg Q12HR HERMILO Administration Glucagon 1 mg 06/25/22 12:54 Glucagon For Inj 1 Mg Vial IM PRN PRN Hypoglycemia Protocol Glucose 15 gm 06/25/22 12:54 Glucose Oral Gel 15 Gm Of Glucse In 37.5 Gm Tube PO PRN PRN Hypoglycemia Protocol Piperacillin/Tazobactam/Dextrose 3.375 gm in 50 mls @ 100 mls/hr 06/25/22 03:00 06/26/22 15:51 Zosyn 3.375 Gm/Ns 50 Ml IVPB 100 mls/hr Q6H HERMILO Administration Dextrose 1,000 mls @ 100 mls/hr 06/25/22 12:54 Dextrose 5% 1,000 Ml IVPB PRN PRN Hypoglycemia Protocol Vancomycin HCl 1,500 mg in 500 mls @ 250 mls/hr 06/25/22 16:00 06/25/22 17:45 Vancomycin 1,500 Mg/D5w 500 Ml IVPB Infused Q24H HERMILO Infusion Insulin Aspart 2 - 5 units 06/25/22 17:00 06/26/22 12:23 Insulin Aspart (*Bkc) 100 Units/Ml SUB-
[2022-06-26 18:37] LABS: Glucose Point of Care 162 mg/dl (65-105)
[2022-06-26] MEDS: PIPERACILLIN/TAZOBACTAM SOD 4.5 GM in SODIUM CHLORIDE 0.9% IV 100 ML 200 ML IVPB (21:14)
[2022-06-26] MEDS: INSULIN GLARGINE (*BKC) 100 UNITS/ML 10 UNITS SUB-Q (21:14)
[2022-06-26 23:34] LABS: Glucose Point of Care 158 mg/dl (65-105)
[2022-06-27] VITALS (10 sets, daily range): BP systolic 131–148; BP diastolic 63–82; PULSE 61–94; RESP 16; TEMP 36.4–36.6; O2SAT 93–98
[2022-06-27] MEDS: PIPERACILLIN/TAZOBACTAM SOD 4.5 GM in SODIUM CHLORIDE 0.9% IV 100 ML 200 ML IVPB ×4 (04:06→21:21)
[2022-06-27 05:14] LABS: Basophils Absolute Auto 0.1 K/mm3 (0.0-0.1); Eosinophils Absolute Auto 1.2 K/mm3 (0-0.3); Eosinophils Percent Auto 12.9 % (0-4.4); Hematocrit 39.1 % (42.0-52.0); Hemoglobin 12.3 g/dL (14.0-18.0); Immature Granulocyte Absolute 0.09 K/mm3 (0.00-0.031); Lymphocytes Absolute Auto 1.82 K/mm3 (0.9-3.2); Lymphocytes Percent Auto 19.7 % (18.3-44.2); Mean Corpuscular HGB Conc 31.5 g/dl (32-36); Mean Corpuscular Hemoglobin 27.1 pg (26-34); Mean Corpuscular Volume 86.1 fl (80-100); Mean Platelet Volume 9.4 fl (7.4-10.4); Monocytes Absolute Auto 0.7 K/mm3 (0.1-0.6); Neutrophils Absolute Auto 5.4 K/mm3 (1.3-6.7); Neutrophils Percent Auto 58.4 % (45.5-73.1); Platelet Count Result 241 k/mm3 (150-375); Red Blood Count 4.54 M/mm3 (4.6-6.20); White Blood Count 9.2 K/mm3 (4.5-10.0)
[2022-06-27 05:34] LABS: Anion Gap 4 mmol/L (8-16); Blood Urea Nitrogen 9 mg/dL (9-20); Calcium 9.8 mg/dL (8.4-10.2); Carbon Dioxide 29 mmol/L (22-30); Chloride 101 mmol/L (98-107); Estimated CRCL calculation 128 ml/min; Estimated Glomerular Filt Rate > 60; Glucose 121 mg/dL (65-110); Potassium 3.5 mmol/L (3.4-5.0); Sodium 134 mmol/L (137-145)
[2022-06-27] MEDS: LEVOTHYROXINE SODIUM 100 MCG TABLET PO (05:42)
[2022-06-27 07:44] LABS: Glucose Point of Care 116 mg/dl (65-105)
[2022-06-27] MEDS: METOPROLOL SUCCINATE EXT REL 100 MG TABCR PO (08:53)
[2022-06-27] MEDS: ENOXAPARIN 100 MG/ML SYRINGE SUB-Q (08:53)
[2022-06-27] MEDS: TOLNAFTATE 1% POWDER 45 GM BTL 1 APPLIC TOPICAL ×2 (08:54→21:27)
--- NOTE | 2022-06-27 09:45 | PM.IMPN ---
Progress Note: A&P Assessment and Plan (1) Gram-negative bacteremia: Code(s): R78.81 - Bacteremia Status: Acute (2) Indwelling catheter present on admission: Code(s): Z96.0 - Presence of urogenital implants Status: Acute (3) Bilateral hydronephrosis: Code(s): N13.30 - Unspecified hydronephrosis Status: Acute (4) Abnormal urinalysis: Code(s): R82.90 - Unspecified abnormal findings in urine Status: Acute (5) Sepsis: Code(s): A41.9 - Sepsis, unspecified organism Status: Acute (6) Altered mental status: Code(s): R41.82 - Altered mental status, unspecified Status: Acute Plan ?66-year-old male with past medical history significant for chronic venous stasis, chronic leg ulcer, hypothyroidism, type 2 diabetes mellitus, congestive heart failure, GERD, atrial fibrillation, chronic [place] brought to ER with mental status changes. Was found to be in Afibb with RVR. 1)Afibb with RVR: now rate controlled Appreciate cardiology help c/w metoprolol Will hold eliquis, c/w lovenox in case needs any surgical intervention 2)Acute Encephalopathy: 2/2 sepsis little lethargic today, will monitor closely 3)Sepsis with gram negative bacteremia: blood culture growing pseudomonas, proteus Urine culture grew proteus Repeat blood culture MRSA nares positive c/w Vanc+Zosyn HIDA scan with chronic cholecystitis D/w with Urology over phone, plan to c/w abx, does have kidney stones which if ever needed intervention, will have to go to tertiary care centre, also has chronic [place] which makes it harder to treat No surgical intervention needed at the moment as per GI and Surgery 4)Chronic Diastolic HF: On 4l NC, chronic Stable 5)DVT ppx:lovenox 6)Code:Full 7)Dispo:pending improvement 06/27/2022 Patient crease clinically improving. Plan is to continue with IV antibiotics. Repeat blood cultures are pending. Will discharge once medically more stable and repeat cultures negative. Continue current plan of care and treatment. Subjective Date/time seen: 06/27/22 09:45 Patient was seen during the morning rounds today. Patient is feeling much better. No shortness of breath or chest pain. No abdominal pain, nausea or vomiting mood stable. Review of Systems Review of Systems: unable to obtain today All systems reviewed & are unremarkable except as noted in HPI and below ROS unobtainable: Yes unobtainable due to mental status (Lethargy, obtundation.) Exam Narrative: Patient is laying in a stretcher Const: General: comfortable, no acute distress, well developed, ill appearing other (Chronically looking), lethargic, patient obtunded, average body habitus and obese Nutritional Appearance: average body habitus and obese Orientation/consciousness: patient oriented x3, patient obtunded and lethargic Other: Patient is staring into space, blank staring. HENMT: Head: normal to inspection, normocephalic and atraumatic Ears: external ears normal Face/Nose/Sinus: normal facial exam Face and sinus: normal facial exam Mouth: Yes moist mucous membranes Eyes: General: appearance normal, both eyes and all related structures Sclera: sclerae normal Pupils: Equal, round and reactive pupils present EOM: EOMs intact bilaterally Neck: Neck: full ROM, no lymphadenopathy, supple and no JVD Thyroid: thyroid normal Lymphatic: no lymphadenopathy noted Resp: Effort & Inspection: normal respiratory effort and able to speak in complete sentences Auscultation: clear to auscultation bilaterally Cardio: Jugular venous distension: no JVD Rate: regular rate and tachycardic Rhythm: regular rhythm and abnormal rhythm irregularly irregular Heart sounds: S1 normal heart sound present and S2 normal heart sound present GI: Inspection: normal to inspection Auscultation: normal bowel sounds : General: Yes deferred Urinary Catheter: Urinary Catheter: patent and draining Skin:
[2022-06-27 12:06] LABS: Glucose Point of Care 158 mg/dl (65-105)
[2022-06-27] MEDS: SILVERGEL (ELTA) 45 ML 1 APPLIC TOPICAL (15:25)
[2022-06-27 17:09] LABS: Glucose Point of Care 152 mg/dl (65-105)
[2022-06-27] MEDS: APIXABAN 5 MG TABLET PO (21:21)
[2022-06-27] MEDS: INSULIN GLARGINE (*BKC) 100 UNITS/ML 10 UNITS SUB-Q (21:26)
[2022-06-27 21:36] LABS: Glucose Point of Care 195 mg/dl (65-105)
[2022-06-28] VITALS (10 sets, daily range): BP systolic 136–152; BP diastolic 82–89; PULSE 60–80; RESP 16; TEMP 36.2–36.6; O2SAT 94–100
[2022-06-28] MEDS: PIPERACILLIN/TAZOBACTAM SOD 4.5 GM in SODIUM CHLORIDE 0.9% IV 100 ML 200 ML IVPB ×3 (03:48→14:31)
[2022-06-28] MEDS: LEVOTHYROXINE SODIUM 100 MCG TABLET PO (06:25)
[2022-06-28 06:39] LABS: Estimated CRCL calculation 146 ml/min; Estimated Glomerular Filt Rate > 60
[2022-06-28 08:27] LABS: Glucose Point of Care 127 mg/dl (65-105)
[2022-06-28] MEDS: APIXABAN 5 MG TABLET PO ×2 (09:23→22:13)
[2022-06-28] MEDS: METOPROLOL SUCCINATE EXT REL 100 MG TABCR PO (09:23)
[2022-06-28] MEDS: TOLNAFTATE 1% POWDER 45 GM BTL 1 APPLIC TOPICAL ×2 (09:23→22:14)
[2022-06-28] MEDS: SILVERGEL (ELTA) 45 ML 1 APPLIC TOPICAL (09:24)
[2022-06-28] MEDS: ACETAMINOPHEN 325 MG TABLET 650 MG PO (09:24)
[2022-06-28 12:12] LABS: Glucose Point of Care 169 mg/dl (65-105)
--- NOTE | 2022-06-28 17:55 | PM.IMPN ---
Progress Note: A&P Assessment and Plan (1) Gram-negative bacteremia: Code(s): R78.81 - Bacteremia Status: Acute Assessment and Plan: Proteus likely from urinary tract but also grew out Pseudomonas from 2nd bottle on same culture day The latter is likely misidentification Both sensitive to cefepime therefore can narrow antibiotic spectrum from Zosyn to cefepime 2 g every 12 hours (2) Acute UTI: Code(s): N39.0 - Urinary tract infection, site not specified Status: Acute Assessment and Plan: Proteus in urine culture with same sensitivities as Proteus and blood culture indicating urinary source for bacteremia Continue antibiotics with cefepime 2 g IV q.12 hours (3) A-fib: Code(s): I48.91 - Unspecified atrial fibrillation Status: Acute Assessment and Plan: Clinically stable (4) CHF (congestive heart failure): Qualifiers: Heart failure chronicity: unspecified Heart failure type: unspecified Qualified Code(s): I50.9 - Heart failure, unspecified Code(s): I50.9 - Heart failure, unspecified Status: Acute Assessment and Plan: Clinically stable (5) Insulin dependent diabetes mellitus: Status: Acute Assessment and Plan: Blood sugars reviewed and adequately controlled Subjective Date/time seen: 06/28/22 17:55 Interval history: Complains of some abdominal discomfort around the site of his old mesh from hernia repair. Mild to moderate. Worse with movement. No loss of appetite. No change in bowels. No difficulty urinating. No abnormal bleeding. Denied chest pain or shortness of breath. Has right-sided weakness chronically. Review of Systems Review of Systems: All systems reviewed & are unremarkable except as noted in HPI and below Exam Narrative: HEENT: sclerae nonicteric, pharyngeal mucosa pink and intact NECK: No JVD CHEST: Clear to auscultation. Normal effort. HEART: NL S1/S2, regular, no murmur ABDOMEN: BS+, soft, tender over site of abdominal mesh without mass redness warmth or guarding or rebound EXTREMITIES: Nonpitting edema of both legs NEUROLOGIC: Mild right facial droop with mild slurring of speech MUSCULOSKELETAL: Decreased right upper and lower extremity strength PSYCH: Alert. Oriented to person, place, but not to time Objective Data Vital Signs Vital Signs: Vital Signs - 24 hr 06/27/22 20:00 06/27/22 20:00 06/28/22 00:00 Temperature Pulse Rate 61 88 73 Respiratory Rate 16 Blood Pressure Pulse Oximetry 97 Oxygen Delivery Room Air 06/28/22 04:00 06/27/22 21:55 06/28/22 07:00 Temperature 97.7 F 97.8 F Pulse Rate 75 94 73 Respiratory Rate 16 16 Blood Pressure 131/65 143/85 H Pulse Oximetry 93 100 Oxygen Delivery 06/28/22 09:23 06/28/22 08:15 06/28/22 14:03 Temperature 97.2 F L Pulse Rate 70 73 Respiratory Rate 16 Blood Pressure 136/82 Pulse Oximetry 100 Oxygen Delivery Room Air 06/28/22 08:00 06/28/22 12:00 06/28/22 16:00 Temperature Pulse Rate 62 80 78 Respiratory Rate Blood Pressure Pulse Oximetry Oxygen Delivery Intake/Output Intake/Output: Intake & Output 06/25/22 06/26/22 06/27/22 06/28/22 23:59 23:59 23:59 23:59 Intake Total 2350 1440 2480 1370 Output Total 2650 2625 2100 1000 Balance -300 -1185 380 370 Meds/Results Medications: Active Medications Generic Name Dose Route Start Last Admin Trade Name Freq PRN Reason Stop Dose Admin Acetaminophen 650 mg 06/28/22 08:55 06/28/22 09:24 Acetaminophen 325 Mg Tablet PO 650 mg Q4H PRN Administration Mild Pain (1-3) or Fever Apixaban 5 mg 06/27/22 21:00 06/28/22 09:23 Apixaban 5 Mg Tablet PO 5 mg Q12HR HERMILO Administration Dextrose 12.5 gm 06/25/22 12:54 Dextrose 50% 25 Gm/50 Ml Syringe IV PUSH PRN PRN Hypoglycemia Protocol Glucagon 1 mg 06/25/22 12:54 Glucagon For Inj 1 Mg Vial IM PRN P
[2022-06-28 18:06] LABS: Glucose Point of Care 147 mg/dl (65-105)
[2022-06-28] MEDS: CEFEPIME 2 GM/NS 50 ML 2 GM/50 ML BAG IVPB (18:34)
[2022-06-28] MEDS: NAPHAZOLINE/PHENIRAMINE OPHTH SOLN 5 ML BOTTLE 1 DROP EACH EYE (18:35)
[2022-06-28] MEDS: INSULIN GLARGINE (*BKC) 100 UNITS/ML 10 UNITS SUB-Q (22:10)
[2022-06-28] MEDS: ACETAMINOPHEN 500 MG TABLET 1000 MG PO (22:13)
[2022-06-28 22:18] LABS: Glucose Point of Care 212 mg/dl (65-105)
[2022-06-29] VITALS (10 sets, daily range): BP systolic 139–168; BP diastolic 74–88; PULSE 64–75; RESP 18–20; TEMP 35.6–36.8; O2SAT 94–99
[2022-06-29] MEDS: CEFEPIME 2 GM/NS 50 ML 2 GM/50 ML BAG IVPB ×2 (05:24→17:12)
[2022-06-29] MEDS: LEVOTHYROXINE SODIUM 100 MCG TABLET PO (05:37)
[2022-06-29 06:16] LABS: Hematocrit 39.4 % (42.0-52.0); Hemoglobin 12.6 g/dL (14.0-18.0); Mean Corpuscular Hemoglobin 27.1 pg (26-34); Mean Corpuscular Volume 84.7 fl (80-100); Mean Platelet Volume 9.1 fl (7.4-10.4); Platelet Count Result 284 k/mm3 (150-375); Red Blood Count 4.65 M/mm3 (4.6-6.20); Red Cell Distribution Width 14.2 % (11.5-14.5)
[2022-06-29 06:27] LABS: Alanine Aminotransferase 15 U/L (6-50); Albumin Level 3.3 g/dL (3.5-5.1); Alkaline Phosphatase 60 U/L (38-126); Anion Gap 3 mmol/L (8-16); Aspartate Amino Transferase 20 U/L (17-59); Bilirubin,Total 0.5 mg/dL (0.2-1.3); Blood Urea Nitrogen 7 mg/dL (9-20); Calcium 9.6 mg/dL (8.4-10.2); Carbon Dioxide 28 mmol/L (22-30); Chloride 101 mmol/L (98-107); Estimated CRCL calculation 129 ml/min; Estimated Glomerular Filt Rate > 60; Glucose 142 mg/dL (65-110); Potassium 3.3 mmol/L (3.4-5.0); Sodium 132 mmol/L (137-145)
[2022-06-29 07:58] LABS: Glucose Point of Care 129 mg/dl (65-105)
[2022-06-29] MEDS: ACETAMINOPHEN 500 MG TABLET 1000 MG PO ×3 (08:47→23:57)
[2022-06-29] MEDS: POTASSIUM CHLORIDE 20 MEQ TABLET 40 MEQ PO (08:47)
[2022-06-29] MEDS: NAPHAZOLINE/PHENIRAMINE OPHTH SOLN 5 ML BOTTLE 1 DROP EACH EYE (08:48)
[2022-06-29] MEDS: METOPROLOL SUCCINATE EXT REL 100 MG TABCR PO (08:48)
[2022-06-29] MEDS: SILVERGEL (ELTA) 45 ML 1 APPLIC TOPICAL (08:49)
[2022-06-29] MEDS: APIXABAN 5 MG TABLET PO ×2 (08:49→21:10)
[2022-06-29] MEDS: TOLNAFTATE 1% POWDER 45 GM BTL 1 APPLIC TOPICAL ×2 (08:49→21:11)
[2022-06-29 13:05] LABS: Glucose Point of Care 186 mg/dl (65-105)
--- NOTE | 2022-06-29 16:28 | PM.IMPN ---
Progress Note: A&P Assessment and Plan (1) Gram-negative bacteremia: Code(s): R78.81 - Bacteremia Status: Acute Assessment and Plan: Proteus likely from urinary tract but also grew out Pseudomonas from 2nd bottle on same culture day The latter is likely misidentification Both sensitive to cefepime therefore can narrow antibiotic spectrum from Zosyn to cefepime 2 g every 12 hours on 06/28 06/29 completed day 5 of 7 days iv antibiotics (2) Acute UTI: Code(s): N39.0 - Urinary tract infection, site not specified Status: Acute Assessment and Plan: Proteus in urine culture with same sensitivities as Proteus and blood culture indicating urinary source for bacteremia Continue antibiotics with cefepime 2 g IV q.12 hours (3) A-fib: Code(s): I48.91 - Unspecified atrial fibrillation Status: Acute Assessment and Plan: Clinically stable (4) CHF (congestive heart failure): Qualifiers: Heart failure chronicity: unspecified Heart failure type: unspecified Qualified Code(s): I50.9 - Heart failure, unspecified Code(s): I50.9 - Heart failure, unspecified Status: Acute Assessment and Plan: Clinically stable (5) Insulin dependent diabetes mellitus: Status: Acute Assessment and Plan: Blood sugars reviewed and adequately controlled Subjective Date/time seen: 06/29/22 16:28 Interval history: Only c/o is he wants to get out of bed. No loss of appetite. No change in bowels. No difficulty urinating. No abnormal bleeding. Denied chest pain or shortness of breath. Has right-sided weakness chronically. Review of Systems Review of Systems: All systems reviewed & are unremarkable except as noted in HPI and below Exam Narrative: HEENT: sclerae nonicteric, pharyngeal mucosa pink and intact NECK: No JVD CHEST: Clear to auscultation. Normal effort. HEART: NL S1/S2, regular, no murmur ABDOMEN: BS+, soft, nontender EXTREMITIES: Nonpitting edema of both legs NEUROLOGIC: Mild rsquinting of right eye MUSCULOSKELETAL: Diffusely weak PSYCH: Alert. Oriented to person, place, but not to time Objective Data Vital Signs Vital Signs: Vital Signs - 24 hr 06/28/22 22:21 06/28/22 20:00 06/28/22 20:00 Temperature 97.6 F Pulse Rate 60 60 62 Respiratory Rate 16 16 Blood Pressure 152/89 H Pulse Oximetry 94 94 Oxygen Delivery Room Air 06/29/22 00:00 06/29/22 04:00 06/29/22 05:50 Temperature 97.6 F Pulse Rate 64 64 67 Respiratory Rate 18 Blood Pressure 139/82 Pulse Oximetry 94 Oxygen Delivery 06/29/22 07:55 06/29/22 08:00 06/29/22 08:48 Temperature Pulse Rate 66 75 Respiratory Rate Blood Pressure Pulse Oximetry Oxygen Delivery Room Air 06/29/22 12:00 06/29/22 14:10 Temperature 96.0 F L Pulse Rate 70 68 Respiratory Rate 20 Blood Pressure 168/88 H Pulse Oximetry 99 Oxygen Delivery Intake/Output Intake/Output: Intake & Output 06/26/22 06/27/22 06/28/22 06/29/22 23:59 23:59 23:59 23:59 Intake Total 1440 2480 2320 690 Output Total 2625 2100 2850 1450 Ygtyeoi -1185 380 -530 -760 Meds/Results Medications: Active Medications Generic Name Dose Route Start Last Admin Trade Name Freq PRN Reason Stop Dose Admin Acetaminophen 1,000 mg 06/28/22 18:10 06/29/22 08:47 Acetaminophen 500 Mg Tablet PO 1,000 mg Q6H PRN Administration mild to moderate pain Apixaban 5 mg 06/27/22 21:00 06/29/22 08:49 Apixaban 5 Mg Tablet PO 5 mg Q12HR HERMILO Administration Dextrose 12.5 gm 06/25/22 12:54 Dextrose 50% 25 Gm/50 Ml Syringe IV PUSH PRN PRN Hypoglycemia Protocol Glucagon 1 mg 06/25/22 12:54 Glucagon For Inj 1 Mg Vial IM PRN PRN Hypoglycemia Protocol Glucose 15 gm 06/25/22 12:54 Glucose Oral Gel 15 Gm Of Glucse In 37.5 Gm Tube PO PRN PRN Hypoglycemia Protocol Dextrose 1,000 mls
[2022-06-29 16:53] LABS: Glucose Point of Care 140 mg/dl (65-105)
[2022-06-29 17:11] LABS: Glucose Point of Care 163 mg/dl (65-105)
[2022-06-29 20:00] LABS: Glucose Point of Care 249 mg/dl (65-105)
[2022-06-29] MEDS: INSULIN GLARGINE (*BKC) 100 UNITS/ML 10 UNITS SUB-Q (21:09)
[2022-06-30] VITALS (10 sets, daily range): BP systolic 147–155; BP diastolic 81–93; PULSE 66–81; RESP 18; TEMP 36.4–36.8; O2SAT 97–99
[2022-06-30 05:57] LABS: Estimated CRCL calculation 148 ml/min; Estimated Glomerular Filt Rate > 60
[2022-06-30] MEDS: CEFEPIME 2 GM/NS 50 ML 2 GM/50 ML BAG IVPB (06:27)
[2022-06-30] MEDS: LEVOTHYROXINE SODIUM 100 MCG TABLET PO (06:27)
[2022-06-30 08:15] LABS: Glucose Point of Care 151 mg/dl (65-105)
[2022-06-30] MEDS: METOPROLOL SUCCINATE EXT REL 100 MG TABCR PO (08:56)
[2022-06-30] MEDS: APIXABAN 5 MG TABLET PO ×2 (08:56→20:20)
[2022-06-30] MEDS: SILVERGEL (ELTA) 45 ML 1 APPLIC TOPICAL (08:57)
[2022-06-30] MEDS: TOLNAFTATE 1% POWDER 45 GM BTL 1 APPLIC TOPICAL ×2 (08:58→20:21)
--- NOTE | 2022-06-30 11:25 | PM.IMPN ---
Progress Note: A&P Assessment and Plan (1) Gram-negative bacteremia: Code(s): R78.81 - Bacteremia Status: Acute Assessment and Plan: Proteus likely from urinary tract but also grew out Pseudomonas from 2nd bottle on same culture day The latter is likely misidentification Both sensitive to cefepime therefore can narrow antibiotic spectrum from Zosyn to cefepime 2 g every 12 hours 06/30 - completed day 6 of iv antibiotics (2) Acute UTI: Code(s): N39.0 - Urinary tract infection, site not specified Status: Acute Assessment and Plan: Proteus in urine culture with same sensitivities as Proteus and blood culture indicating urinary source for bacteremia Continue antibiotics with cefepime 2 g IV q.12 hours (3) A-fib: Code(s): I48.91 - Unspecified atrial fibrillation Status: Acute Assessment and Plan: Clinically stable (4) CHF (congestive heart failure): Qualifiers: Heart failure chronicity: unspecified Heart failure type: unspecified Qualified Code(s): I50.9 - Heart failure, unspecified Code(s): I50.9 - Heart failure, unspecified Status: Acute Assessment and Plan: Clinically stable (5) Insulin dependent diabetes mellitus: Status: Acute Assessment and Plan: Blood sugars reviewed and adequately controlled Subjective Date/time seen: 06/30/22 11:25 Interval history: No new issues overnight Review of Systems Review of Systems: All systems reviewed & are unremarkable except as noted in HPI and below Exam Narrative: HEENT: sclerae nonicteric, pharyngeal mucosa pink and intact NECK: No JVD CHEST: Clear to auscultation. Normal effort. HEART: NL S1/S2, regular, no murmur ABDOMEN: BS+, soft, nontender EXTREMITIES: Nonpitting edema of both legs NEUROLOGIC: Mild rsquinting of right eye MUSCULOSKELETAL: Diffusely weak PSYCH: Alert. Oriented to person, place, but not to time Objective Data Vital Signs Vital Signs: Vital Signs - 24 hr 06/29/22 12:00 06/29/22 14:10 06/29/22 16:00 Temperature 96.0 F L Pulse Rate 70 68 64 Respiratory Rate 20 Blood Pressure 168/88 H Pulse Oximetry 99 Oxygen Delivery 06/29/22 20:23 06/29/22 20:00 06/29/22 20:00 Temperature 98.2 F Pulse Rate 71 71 71 Respiratory Rate 18 18 Blood Pressure 149/74 H Pulse Oximetry 97 97 Oxygen Delivery Room Air 06/30/22 00:00 06/30/22 04:00 06/30/22 06:00 Temperature 98.2 F Pulse Rate 66 71 67 Respiratory Rate 18 Blood Pressure 147/81 H Pulse Oximetry 98 Oxygen Delivery 06/30/22 08:56 Temperature Pulse Rate 74 Respiratory Rate Blood Pressure Pulse Oximetry Oxygen Delivery Intake/Output Intake/Output: Intake & Output 06/27/22 06/28/22 06/29/22 06/30/22 23:59 23:59 23:59 23:59 Intake Total 2480 / 2480 2320 / 2320 1380 / 1380 790 / 790 Output Total 2100 / 2100 2850 / 2850 1700 / 1700 1300 / 1300 Balance 380 / 380 -530 / -530 -320 / -320 -510 / -510 Meds/Results Medications: Active Medications Generic Name Dose Route Start Last Admin Trade Name Freq PRN Reason Stop Dose Admin Acetaminophen 1,000 mg 06/28/22 18:10 06/29/22 23:57 Acetaminophen 500 Mg Tablet PO 1,000 mg Q6H PRN Administration mild to moderate pain Apixaban 5 mg 06/27/22 21:00 06/30/22 08:56 Apixaban 5 Mg Tablet PO 5 mg Q12HR HERMILO Administration Dextrose 12.5 gm 06/25/22 12:54 Dextrose 50% 25 Gm/50 Ml Syringe IV PUSH PRN PRN Hypoglycemia Protocol Glucagon 1 mg 06/25/22 12:54 Glucagon For Inj 1 Mg Vial IM PRN PRN Hypoglycemia Protocol Glucose 15 gm 06/25/22 12:54 Glucose Oral Gel 15 Gm Of Glucse In 37.5 Gm Tube PO PRN PRN Hypoglycemia Protocol Dextrose 1,000 mls @ 100 mls/hr 06/25/22 12:54 Dextrose 5% 1,000 Ml IVPB PRN PRN Hypoglycemia Protocol Cefepime HCl 2 gm in 50 mls @ 100 mls/hr 06/01
[2022-06-30 12:04] LABS: Glucose Point of Care 206 mg/dl (65-105)
[2022-06-30] MEDS: INSULIN ASPART (*BKC) 100 UNITS/ML SUB-Q (12:33)
[2022-06-30 17:22] LABS: Glucose Point of Care 175 mg/dl (65-105)
[2022-06-30] MEDS: levoFLOXacin 750 MG TABLET PO (17:23)
[2022-06-30 20:12] LABS: Glucose Point of Care 222 mg/dl (65-105)
[2022-06-30] MEDS: INSULIN GLARGINE (*BKC) 100 UNITS/ML 10 UNITS SUB-Q (20:20)
[2022-07-01] VITALS: PULSE 75
[2022-07-01 04:00] VITALS: PULSE 80
--- NOTE | 2022-07-01 04:15 | PC.NURSE ---
Patient refuses to keep quality assurance monitor body on. Educated patient on need for telemetry. Patient also refusing to leave gown on and has thrown all belongings onto the floor.
[2022-07-01 04:56] VITALS: BP 152/92; PULSE 77; RESP 18; TEMP 36.8; O2SAT 97
[2022-07-01] MEDS: LEVOTHYROXINE SODIUM 100 MCG TABLET PO (06:30)
[2022-07-01 08:38] LABS: Glucose Point of Care 153 mg/dl (65-105)
[2022-07-01 08:43] VITALS: PULSE 73
[2022-07-01] MEDS: SILVERGEL (ELTA) 45 ML 1 APPLIC TOPICAL (08:43)
[2022-07-01] MEDS: APIXABAN 5 MG TABLET PO (08:43)
[2022-07-01] MEDS: METOPROLOL SUCCINATE EXT REL 100 MG TABCR PO (08:43)
[2022-07-01] MEDS: TOLNAFTATE 1% POWDER 45 GM BTL 1 APPLIC TOPICAL (08:43)
--- NOTE | 2022-07-01 09:45 | PCNFU ---
Nutrition Follow-Up Complete: Inadequate energy intake related to NPO status as evidenced by current diet orders Goal:PO intake 75% of meals Pt is meeting goal, continue with current goal Pt current nutrition is Diabetic low fat, Ensure compact BID. Nutrition recommendation: Continue with current plan of care Last recorded weight is 137.6 kg. Bowel Motility: +BM 5/2 Labs Reviewed: glu: 153 Meds Noted: Eliquis, lantus, novolog Skin: WNL Additional Notes: Pt continues on a diabetic low fat diet, intake improved to 75-100% of meals. Ensure compact BID in place. Agree with diet orders. Monitor for diet advancement, intake, wt, labs. Follow up in 7 days.
--- NOTE | 2022-07-01 10:38 | PM.DS ---
DS: Admitting Diagnosis Discharge Date 07/01/2022 Admitting Diagnosis AFib with RVR Altered mental status DS: Discharge Diagnosis Discharge Diagnosis (1) Indwelling catheter present on admission: Code(s): Z96.0 - Presence of urogenital implants Status: Acute (2) Gram-negative bacteremia: Code(s): R78.81 - Bacteremia Status: Acute (3) Chronic atrial fibrillation, unspecified: Code(s): I48.20 - Chronic atrial fibrillation, unspecified Status: Acute (4) Altered mental status: Code(s): R41.82 - Altered mental status, unspecified Status: Acute DS: Summary Hospital Course Hospital Course: This is a 66-year-old male with past medical history significant for chronic venous stasis, chronic leg ulcer, hypothyroidism, type 2 diabetes mellitus, congestive heart failure, GERD, atrial fibrillation, obstructive sleep apnea on CPAP, peripheral neuropathy,? obesity, chronic indwelling Coats catheter.? Patient is brought to the emergency room from halfway where he resides at due to altered mental status according to medical records patient is usually awake alert oriented x3.? In emergency room patient was found to have atrial fibrillation with rapid ventricular response, a urinalysis was significant for numerous WBCs present greater than 100 per high power field, lactic acid was 5.1, potassium 5.1, WBC 2.4, brain natriuretic peptide 2300. General surgery was consulted. Patient's urine culture grew Proteus and Pseudomonas for which he was initially started on IV cefepime which was later changed to oral Levaquin. Cardiology was consulted for AFib with RVR. They recommended to stop his Coreg and start him on metoprolol XL along with Eliquis which was done. IV Cardizem was initially started which was later on stopped. At this time patient is clinically back to baseline and is being discharged back to halfway Time Spent with Patient Time attestation: Total time spent providing and/or coordinating discharge services: Exam Narrative: HEENT: sclerae nonicteric, pharyngeal mucosa pink and intact NECK: No JVD CHEST: Clear to auscultation. Normal effort. HEART: NL S1/S2, regular, no murmur ABDOMEN: BS+, soft, nontender EXTREMITIES: Nonpitting edema of both legs NEUROLOGIC: Mild rsquinting of right eye MUSCULOSKELETAL: Diffusely weak PSYCH: Alert. Oriented to person, place, but not to time DS: Data Data Completed and Pending Labs on day of discharge: Labs from last 24 hours 07/01/22 06/30/22 06/30/22 08:34 19:47 17:18 POC Capillary Glucose 153 H 222 H 175 H 06/30/22 11:57 POC Capillary Glucose 206 H Discharge Plan Discharge Consulting providers: Soto Ruiz; Kathie Langford; Keven Ferreira; Adelita Hoff Discharging Clinician: Gurjit Benz Anticipated Discharge Date/Time: 07/01/22 10:32 Patient Disposition: NH Halfway/Asst Living Activity: no preference Diet: heart healthy Patient Instructions: Antibiotic Form, Apixaban (By mouth) Stand Alone Forms: General Discharge Information Follow-up/Referrals: Soto Ruiz MD [Physician] - [place],Jyoti Ribera MD [Primary Care Provider] - Discharge Medications: New levofloxacin 750 mg tablet 750 mg PO DAILY Qty: 5 0RF metoprolol succinate [Toprol XL] 100 mg Tablet Extended Release 24 Hr 100 mg PO QAM Qty: 30 0RF Eliquis 5 mg Tablet 5 mg PO Q12HR Qty: 60 0RF Continued furosemide 40 mg tablet 40 mg PO DAILY ammonium lactate 12 % lotion 1 applic TOPICAL DAILY Rx Instructions: to bilat lower extremities hydrocodone-acetaminophen 5-325 mg tablet 1 tablet PO Q6H PRN (Reason: Pain (Scale Score 4-6)) bupropion HCl 150 mg tablet extended release 24 hr 150 mg PO DAILY Novolin 70-30 FlexPen U-100 100 unit/mL (70-30) insulin pen 25 unit SUBCUT QAM hydrocortisone 0.5 % Ointment 1 applic TOPICAL DAILY
[2022-07-01 12:08] LABS: EDCOVIDSCREEN Negative (Negative)
[2022-07-01 12:10] LABS: Glucose Point of Care 187 mg/dl (65-105)
[2022-07-01 15:19] VITALS: BP 153/78; PULSE 68; RESP 18; TEMP 36.2; O2SAT 98
== END 2022-07-01 16:40 | DRG 698 ==
LOC: ANHED 03:24 → ANHIMU 03:32 → ANH2MED 06-24 15:49
PROVIDERS: Chiropractor; Internal Medicine; Internal Medicine Gastroenterology; Admitting Provider Internal Medicine; Emergency Provider Emergency Medicine; PCP Internal Medicine; Visit Provider Hospitalist
DX: T83.511A Infection and inflammatory reaction due to indwelling urethral catheter, initial encounter (principal); A41.9 Sepsis, unspecified organism; G93.41 Metabolic encephalopathy; Z68.41 Body mass index [BMI] 40.0-44.9, adult; I50.32 Chronic diastolic (congestive) heart failure; N13.30 Unspecified hydronephrosis; I48.20 Chronic atrial fibrillation, unspecified; L97.829 Non-pressure chronic ulcer of other part of left lower leg with unspecified severity; L97.819 Non-pressure chronic ulcer of other part of right lower leg with unspecified severity; N39.0 Urinary tract infection, site not specified; Z20.822 Contact with and (suspected) exposure to COVID-19; B96.4 Proteus (mirabilis) (morganii) as the cause of diseases classified elsewhere; B96.5 Pseudomonas (aeruginosa) (mallei) (pseudomallei) as the cause of diseases classified elsewhere; E11.42 Type 2 diabetes mellitus with diabetic polyneuropathy; K21.9 Gastro-esophageal reflux disease without esophagitis; G47.33 Obstructive sleep apnea (adult) (pediatric); E66.9 Obesity, unspecified; J44.9 Chronic obstructive pulmonary disease, unspecified; E78.5 Hyperlipidemia, unspecified; K80.50 Calculus of bile duct without cholangitis or cholecystitis without obstruction; I87.8 Other specified disorders of veins; Z87.442 Personal history of urinary calculi; Z91.199 Patient's noncompliance with other medical treatment and regimen due to unspecified reason; Z90.49 Acquired absence of other specified parts of digestive tract; Z79.4 Long term (current) use of insulin; Z79.84 Long term (current) use of oral hypoglycemic drugs; Z98.49 Cataract extraction status, unspecified eye; Z22.322 Carrier or suspected carrier of Methicillin resistant Staphylococcus aureus
CPT/HCPCS: 36415; 51702; 70450; 71045; 74177; 78226; 80048; 80053; 80202; 80307; 81001; 82550; 82565; 82948; 83605; 83690; 83735; 83880; 84443; 84484; 85025; 85027; 85610; 85730; 87040; 87077; 87081; 87086; 87147; 87186; 87426; 93005; 93306; 96365; 96366; 96367; 96368; 96376; 99285; A9270; A9537; C9803; J0612; J0692; J1650; J1815; J2543; J3370; J3475; J7030; Q9967

== ENCOUNTER 2022-09-09 13:03 | Observation (INO) | payer MEDICARE, MEDICAID, SELFPAY ==
[2022-09-09] VITALS (17 sets, daily range): BP systolic 82–110; BP diastolic 51–73; PULSE 72–131; RESP 11–27; TEMP 36–38.2; O2SAT 93–100; BMI 39.4
--- NOTE | ~2022-09-09 | CT_ITS ---
EXAMINATION: CT brain wo con INDICATION: Altered mental status, unresponsive COMPARISON: 06/23/2022 TECHNIQUE: Standard unenhanced head CT. The dose-length product (DLP) was 605.33 mGy-cm. The mA was a djusted according to patient size. Iterative reconstruction technique was employed. FINDINGS: There is no acute intraparenchymal hemorrhage. No evidence of mass lesion. No evidence of a cute infarction. There is mild periventricular and subcortical hypodensity probably related to small vessel ischemic disease. There is mild prominence of the sulci and ventricles related to cerebral atr ophy. Intracranial calcified cerebral atherosclerosis is noted. There are no extra-axial collections. There is no mass effect or midline shift. The orbits and soft tissues are unremarkable. There is mil d mucosal thickening of the paranasal sinuses. IMPRESSION: 1. No acute intracranial abnormality. 2. Age related findings. Reviewed, dictated and finalized at location L.
--- NOTE | ~2022-09-09 | XR_ITS ---
EXAMINATION: XR chest 1V portable DATE: 09/09/2022 14:09 INDICATION: Fever. Shortness of breath. TECHNIQUE: A single frontal view of the chest was obtained on two radiographs. COMPARISON: Chest single view 06/23/2022, CT abdomen and pelvis 06/23/2022 FINDINGS: There is an interstitial pattern in the inferior lungs, consistent with mild pulmonary basilio a. No pleural effusion or pneumothorax. Cardiomegaly is noted. IMPRESSION: 1. Mild pulmonary edema. 2. Cardiomegaly. Reviewed, dictated and finalized at location E.
--- NOTE | ~2022-09-09 | CT_ITS ---
EXAMINATION: CT pelvis w con DATE: 09/09/2022 15:56 INDICATION: Scrotal and groin infection. TECHNIQUE: Computed tomography (CT) of the pelvis was performed with 100 mL Omnipaque 350 intravenous contrast. Automated exposure control and iterative reconstruction technique were employed. The dose- length product was 2335.95 mGy-cm. COMPARISON: CT abdomen and pelvis 06/23/2022 FINDINGS: There are changes of ventral hernia repair. There are no dilated loops of bowel. The bladde r is decompressed by a Coats catheter. There is a 5 mm stone in the bladder. There are no pathologica lly enlarged lymph nodes. There is no free intraperitoneal fluid. There is subcutaneous fat stranding in the thighs. No soft tissue gas. No abscess. There is moderate osteoarthritis of the hips. IMPRESSION: 1. Subcutaneous fat stranding in the thighs, consistent with edema versus inflammation. No abscess. Reviewed, dictated and finalized at location E. IMPRESSION: 1. Subcutaneous fat stranding in the thighs, consistent with edema versus infla mmation. No abscess.
--- NOTE | 2022-09-09 13:13 | ECG_ITS ---
Measurements Intervals [place] Rate: 121 P: TX: 0 QRS: 70 QRSD: 118 T: -12 QT: 327 QTc: 464 Interpretive Statements ATRIAL FIBRILLATION WITH RAPID VENTRICULAR RESPONSE INTRAVENTRICULAR CONDUCTION DELAY BORDERLINE ST-T WAVE ABNORMALITY- INFERIOR LEADS ABNORMAL ECG COMPARED TO ECG 06/23/2022 00:46:19 NO SIGNIFICANT CHANGES Electronically Signed On 09-10-2022 6:59:51 CDT by Silver Torres D.O.
[2022-09-09 13:54] LABS: Hematocrit 41.5 % (42.0-52.0); Hemoglobin 12.8 g/dL (14.0-18.0); Mean Corpuscular HGB Conc 30.8 g/dl (32-36); Mean Corpuscular Hemoglobin 27.2 pg (26-34); Mean Corpuscular Volume 88.3 fl (80-100); Mean Platelet Volume 9.4 fl (7.4-10.4); Platelet Count Result 209 k/mm3 (150-375); Red Cell Distribution Width 14.2 % (11.5-14.5); White Blood Count 12.6 K/mm3 (4.5-10.0)
--- NOTE | 2022-09-09 13:56 | ED.AMS ---
HPI - Altered Mental Status General Chief Complaint: Altered Mental Status Stated Complaint: AMS Time Seen by Provider: 09/09/22 13:16 Source: EMS and RN notes reviewed Mode of arrival: EMS Limitations: altered mental status History of Present Illness HPI narrative: This is a 67-year-old male that presents to the emergency department for altered mental status. Family reportedly checked on him at his nursing facility and noticed he was altered so sent him to the ER for further evaluation. Per facility patient was normal this morning. Noted to be febrile in the ED. He reports pain in his bottom. He otherwise has no complaints. Related Data Home Medications Medication Instructions Recorded Confirmed gabapentin 300 mg capsule 300 mg PO QID 02/15/21 06/23/22 ipratropium 0.5 mg-albuterol 3 mg 3 ml inhalation Q4H PRN Wheezing 02/15/21 06/23/22 (2.5 mg base)/3 mL nebulization soln levothyroxine 100 mcg tablet 100 mcg PO DAILY 02/15/21 06/23/22 insulin NPH-regular 70-30 U-100 20 unit subcut HS 12/08/21 06/23/22 insulin 100 unit/mL subcutaneous pen (Novolin 70-30 FlexPen U-100 Insulin) pravastatin 40 mg tablet 40 mg PO HS 12/08/21 06/23/22 multivitamin with minerals-folic 1 tablet PO DAILY 03/02/22 06/23/22 acid 0.4 mg tablet omeprazole 20 mg capsule,delayed 20 mg PO DAILY 03/02/22 06/23/22 release ammonium lactate 12 % lotion 1 applic topical DAILY 06/23/22 06/23/22 bupropion HCl 150 mg 24 hr tablet, 150 mg PO DAILY 06/23/22 06/23/22 extended release furosemide 40 mg tablet 40 mg PO DAILY 06/23/22 06/23/22 hydrocodone 5 mg-acetaminophen 325 1 tablet PO Q6H PRN Pain (Scale 06/23/22 06/23/22 mg tablet Score 4-6) hydrocortisone 0.5 % topical 1 applic topical DAILY 06/23/22 06/23/22 ointment insulin NPH-regular 70-30 U-100 25 unit subcut QAM 06/23/22 06/23/22 insulin 100 unit/mL subcutaneous pen (Novolin 70-30 FlexPen U-100 Insulin) Allergies Allergy/AdvReac Type Severity Reaction Status Date / Time No Known Allergies Allergy Verified 12/08/21 02:49 Review of Systems Review of Systems: ROS unobtainable: Yes unobtainable due to mental status [facility] Past Medical History Medical History (Updated 09/09/22 @ 18:46 by Tameka Rose PA-C) Choledocholithiasis (05/2022) Chronic obstructive pulmonary disease Chronic venous insufficiency Depression Diastolic congestive heart failure Gastroesophageal reflux disease Hyperlipidemia Hypertension Hypothyroidism Insulin dependent diabetes mellitus Kidney stones Obstructive sleep apnea Non-compliant with CPAP. Paroxysmal atrial fibrillation Peripheral neuropathy Surgical History Surgical History (Updated 09/09/22 @ 18:14 by Malorie Jones PA-C) History of appendectomy History of back surgery History of cataract extraction History of hemorrhoidectomy Family History Family History Sibling Family history of obesity Hypertension Family history of diabetes mellitus in first degree relative Family history of heart disease in male family member before age 55 Patient's sister is in good health Patient's brother is Mother Family history of arthritis Family history of malignant neoplasm Patient's mother is Father Patient's father is Other Malignant neoplasm of prostate Unknown family medical history Social History Social History (Updated 09/09/22 @ 18:16 by Malorie Jones PA-C) Social History: Surrogate medical decision maker: Marlys Marrero, . Code status: Do not resuscitate. Smoking packs per day: 2 Smoking cigarettes per day: 40.0 Years smoked: 15 Smoking pack-years: 30.00 Smoking status: Unknown if ever smoked Tobacco type: cigarettes Second hand tobacco smoke exposure: No Smoking end date: 03/02/91 Alcohol intake: never Substance use: unknown Substance use type: unkno
[2022-09-09 14:03] LABS: Alanine Aminotransferase 14 U/L (6-50); Alkaline Phosphatase 52 U/L (38-126); Anion Gap 2 mmol/L (8-16); Aspartate Amino Transferase 17 U/L (17-59); Bilirubin,Total 0.5 mg/dL (0.2-1.3); Blood Urea Nitrogen 18 mg/dL (9-20); Calcium 9.3 mg/dL (8.4-10.2); Carbon Dioxide 29 mmol/L (22-30); Chloride 102 mmol/L (98-107); Estimated CRCL calculation 96 ml/min; Estimated Glomerular Filt Rate > 60; Glucose 108 mg/dL (65-110); Potassium 3.5 mmol/L (3.4-5.0); Sodium 133 mmol/L (137-145)
[2022-09-09] MEDS: SODIUM CHLORIDE 0.9% IV 500 ML 999 ML IV CONT (14:06)
[2022-09-09] MEDS: ACETAMINOPHEN 650 MG SUPPOSITORY RECTAL (14:07)
[2022-09-09 14:19] LABS: INR 1.5; Prothrombin Time 18.8 Seconds (11.1-14.7)
[2022-09-09 14:20] LABS: Partial Thromboplastin Time 41.7 SECONDS (22.3-36.8)
[2022-09-09 14:52] LABS: Lactic Acid Reflex 1.8 mmol/L (0.7-2.0)
[2022-09-09 14:57] LABS: Band Neutrophils Percent 17 % (0-6); Lymphocytes Absolute Manual 0.37 K/mm3 (1.1-4.5); Metamyelocytes Percent 1 %; Monocytes Percent Manual 4 % (3-9); Neutrophils Absolute Manual 11.59 K/mm3 (1.3-6.7); Neutrophils Percent Manual 75 % (46-73); Platelet Estimate Adequate (Adequate); Schistocytes None Seen (NORMAL); Total Cells Counted 100
[2022-09-09 15:15] LABS: Appearance Urine Turbid (Clear); Bacteria Urine 4+ /hpf; Bilirubin Urine Negative (Negative); Blood Urine 3+ (Negative); Color Urine Dark Yellow (Yellow); Glucose Urine UA Negative (Negative); Ketones Urine Negative (Negative); Leukocyte Esterase Ur 3+ LEU/UL (Negative); Need Manual Microscopic Reviewed; Nitrate Urine Positive (Negative); Protein Urine 2+ mg/dL (Negative); RBC Urine >100 /hpf (0-2); Specific Grav Ur 1.014 (1.001-1.035); Squamous Epithelial Cell Urine Occasional /hpf (Few); WBC Urine >100 /hpf; pH Urine 7.5 (5.0-9.0)
[2022-09-09 15:24] LABS: Add Urine Microscopic? YES
[2022-09-09 15:48] LABS: NT Pro B Type Natriuretic Pept 3450 pg/mL (19.9-100)
--- NOTE | 2022-09-09 18:10 | PM.IMHP ---
H&P: HPI History of Present Illness Date/Time: 09/09/22 18:15 Chief Complaint: Confusion. Narrative: This is a 67-year-old male with paroxysmal atrial fibrillation, diastolic congestive heart failure, insulin-dependent type 2 diabetes mellitus, hypertension, chronic kidney disease, untreated sleep apnea, morbid obesity, and other comorbidities who presented to the emergency department via EMS from [facility] for evaluation of confusion. He is able to provide some history and his Marlys provides additional information, with the patient's permission. Marlys sees the patient daily and he was in his usual state of health yesterday and this morning according to longterm staff. This afternoon he was confused, could not hold a normal conversation, and he did not seem to recognize his . He was then sent in for evaluation. He had a low-grade temperature on arrival of 100.8? F. blood pressure was 101/68 but did drop to 82/51. He received 500 mL of IV fluid blood pressures have since improved. Labs were significant for WBC count of 12.6 (17% bands), sodium 133, potassium 3.5, BUN 18, creatinine 0.90, lactic acid 1.8, proBNP 3450, normal LFTs. Coats catheter was draining cloudy urine with sediment and UA was positive for nitrates, 2+ protein, 3+ blood, 3+ leukocyte esterase, greater than 100 RBC and WBC, and 4+ bacteria. He was given a dose of ceftriaxone and he is being admitted in this setting for further treatment. At the time my evaluation he has no specific complaints and reports that he is hungry as he has not eaten yet today. He denies headache, neck ache, sinus congestion, sore throat, chest pain, shortness a breath, nausea, vomiting, and diarrhea. Review of Systems Review of Systems: Twelve systems were reviewed. Patient has chronic pain in his left leg. He has not been able to walk since late last year. [facility] use a [place] to transfer him to a chair. It does not sound as though they do therapy with him. Has indwelling Coats catheter. Occasionally needs a laxative to have a bowel movement. Denies fever, chills, and sweats. No chest pain or shortness of breath. No cough. Complains of posterior pain from the gurney. Except as documented, all other systems were reviewed and are negative. [facility] Past Medical History Medical History Choledocholithiasis (05/2022) Chronic obstructive pulmonary disease Chronic venous insufficiency Depression Diastolic congestive heart failure Gastroesophageal reflux disease Hyperlipidemia Hypertension Hypothyroidism Insulin dependent diabetes mellitus Kidney stones Obstructive sleep apnea Non-compliant with CPAP. Paroxysmal atrial fibrillation Peripheral neuropathy Surgical History Surgical History History of appendectomy History of back surgery History of cataract extraction History of hemorrhoidectomy Family History Family History Sibling Family history of obesity Hypertension Family history of diabetes mellitus in first degree relative Family history of heart disease in male family member before age 55 Patient's sister is in good health Patient's brother is Mother Family history of arthritis Family history of malignant neoplasm Patient's mother is Father Patient's father is Other Malignant neoplasm of prostate Unknown family medical history Social History Social History Social History: Surrogate medical decision maker: Marlys Marrero, . Code status: Do not resuscitate. Smoking packs per day: 2 Smoking cigarettes per day: 40.0 Years smoked: 15 Smoking pack-years: 30.00 Smoking status: Former smoker Tobacco type: cigarettes Second hand tobacco smoke exposu
--- NOTE | 2022-09-09 18:42 | ADMGEN ---
This patient, Taye Marrero Jr., was admitted to IMU Room 203-01. Patient/family oriented to hospital policies and general routines including ID bracelet, bed and alarms, visiting hours, pain management, procedures, bathroom and other care routines, personal items, smoking policy, room service/diet, and visiting hours. Information on how to activate the Rapid Response Team has been discussed. Patient/Family are encouraged to report perceived risks to care and to ask questions if they do not understand what they are told or what they should do.
[2022-09-09 20:34] LABS: Glucose Point of Care 73 mg/dl (65-105)
[2022-09-10] VITALS (12 sets, daily range): BP systolic 109–139; BP diastolic 62–77; PULSE 76–97; RESP 14–22; TEMP 35.6–37.2; O2SAT 94–100
--- NOTE | 2022-09-10 00:12 | ADMGEN ---
This patient, Taye Marrero Jr., was admitted to IMU Room 203-01 prior to 1900. Patient/family oriented to hospital policies and general routines including ID bracelet, bed and alarms, visiting hours, pain management, procedures, bathroom and other care routines, personal items, smoking policy, room service/diet, and visiting hours. Information on how to activate the Rapid Response Team has been discussed. Patient/Family are encouraged to report perceived risks to care and to ask questions if they do not understand what they are told or what they should do.
--- NOTE | 2022-09-10 02:02 | PC.NURSE ---
+Some of patient's home medications from [facility] verified by Nidhi TRUJILLO. Nidhi will fax the current MAR in the AM.
[2022-09-10 05:08] LABS: Basophils Absolute Auto 0.1 K/mm3 (0.0-0.1); Basophils Percent Auto 0.8 % (0.2-1.2); Eosinophils Absolute Auto 0.7 K/mm3 (0-0.3); Eosinophils Percent Auto 7.2 % (0-4.4); Hematocrit 40.4 % (42.0-52.0); Hemoglobin 12.3 g/dL (14.0-18.0); Immature Granulocyte Absolute 0.03 K/mm3 (0.00-0.031); Immature Granulocyte Percent A 0.3 % (0-0.5); Lymphocytes Absolute Auto 1.15 K/mm3 (0.9-3.2); Lymphocytes Percent Auto 12.5 % (18.3-44.2); Mean Corpuscular HGB Conc 30.4 g/dl (32-36); Mean Corpuscular Volume 88.6 fl (80-100); Mean Platelet Volume 9.7 fl (7.4-10.4); Monocytes Absolute Auto 0.9 K/mm3 (0.1-0.6); Monocytes Percent Auto 9.2 % (2.6-8.5); Neutrophils Absolute Auto 6.5 K/mm3 (1.3-6.7); Platelet Count Result 219 k/mm3 (150-375); Red Blood Count 4.56 M/mm3 (4.6-6.20); Red Cell Distribution Width 14.2 % (11.5-14.5); White Blood Count 9.2 K/mm3 (4.5-10.0)
[2022-09-10 05:21] LABS: Alanine Aminotransferase 10 U/L (6-50); Albumin Level 3.1 g/dL (3.5-5.1); Alkaline Phosphatase 55 U/L (38-126); Anion Gap 0 mmol/L (8-16); Aspartate Amino Transferase 18 U/L (17-59); Bilirubin,Total 0.5 mg/dL (0.2-1.3); Blood Urea Nitrogen 16 mg/dL (9-20); Calcium 9.3 mg/dL (8.4-10.2); Carbon Dioxide 34 mmol/L (22-30); Chloride 100 mmol/L (98-107); Estimated CRCL calculation 95 ml/min; Estimated Glomerular Filt Rate > 60; Glucose 77 mg/dL (65-110); Magnesium 1.7 mg/dL (1.6-2.3); Potassium 3.9 mmol/L (3.4-5.0); Sodium 134 mmol/L (137-145)
[2022-09-10 08:08] LABS: Glucose Point of Care 79 mg/dl (65-105)
--- NOTE | 2022-09-10 08:14 | PM.IMPN ---
Progress Note: A&P Assessment and Plan (1) Sepsis: Code(s): A41.9 - Sepsis, unspecified organism Status: Acute Assessment and Plan: resolving, cont abx (2) Complicated urinary tract infection: Code(s): N39.0 - Urinary tract infection, site not specified Status: Acute Assessment and Plan: rocephin (3) Yeast dermatitis: Code(s): B37.2 - Candidiasis of skin and nail Status: Acute Assessment and Plan: cont diflucan (4) Insulin dependent diabetes mellitus: Status: Acute Assessment and Plan: accuchecks, SSI (5) Hypothyroidism: Code(s): E03.9 - Hypothyroidism, unspecified Status: Acute Assessment and Plan: check tsh, cont levothyroxine (6) Confusion: Code(s): R41.0 - Disorientation, unspecified Status: Acute Assessment and Plan: improving Plan DVT prophylaxis with eliquis GI prophylaxis not indicated Code status full code Subjective Date/time seen: 09/10/22 08:14 Interval history: 67-year-old male with multiple comorbidities presenting with confusion and being treated for UTI. No overnight events noted. No chest pain or shortness of breath. No nausea, vomiting or diarrhea. No fevers or chills. AMS much improved. Review of Systems Review of Systems: 12 point review of systems was assessed and was negative except as noted in the HPI Exam Narrative: General: No acute distress, alert and oriented per baseline HEENT: Atraumatic, normocephalic, mucous membranes moist CV: Regular rate and rhythm, S1, S2 Lungs: Clear to auscultation bilaterally, no rales or crackles noted, no wheezes, good air entry Abdomen: Soft, nontender, nondistended Extremities: Severe B/L LE brawny venous stasis dermatitis with 1+ pitting edema B/L, minimal erythema, no warmth or purulence, some open areas with serous drainage noted Skin: No rashes noted, no lesions or wounds seen Psych: Unable to assess Objective Data Vital Signs Vital Signs: Vital Signs - 24 hr 09/09/22 13:05 09/09/22 13:14 09/09/22 14:11 Temperature 100.8 F H Pulse Rate 131 H 123 H Respiratory Rate 18 Blood Pressure 101/68 Pulse Oximetry 93 99 Oxygen Delivery Nasal Cannula Nasal Cannula Oxygen Flow Rate 2 2 09/09/22 14:02 09/09/22 14:17 09/09/22 14:32 Temperature 98.9 F Pulse Rate 104 H 86 93 Respiratory Rate 21 H 15 14 Blood Pressure 94/64 L 102/66 95/73 L Pulse Oximetry 97 99 100 Oxygen Delivery Oxygen Flow Rate 09/09/22 14:37 09/09/22 18:06 09/09/22 15:16 Temperature 98.9 F Pulse Rate 84 Respiratory Rate 21 H Blood Pressure 110/55 L Pulse Oximetry 99 95 Oxygen Delivery Room Air Oxygen Flow Rate 09/09/22 15:32 09/09/22 16:46 09/09/22 17:01 Temperature Pulse Rate 88 79 80 Respiratory Rate 14 16 27 H Blood Pressure 96/58 L 82/51 L 100/60 Pulse Oximetry 95 97 97 Oxygen Delivery Oxygen Flow Rate 09/09/22 17:31 09/09/22 18:02 09/09/22 19:20 Temperature 96.8 F L Pulse Rate 77 72 89 Respiratory Rate 11 L 17 22 H Blood Pressure 91/51 L 92/60 L 93/63 L Pulse Oximetry 96 98 93 Oxygen Delivery Oxygen Flow Rate 09/09/22 20:00 09/10/22 00:00 09/09/22 20:00 Temperature 97.8 F 97.6 F Pulse Rate 75 97 73 Respiratory Rate 22 H 22 H Blood Pressure 100/62 137/62 Pulse Oximetry 98 100 Oxygen Delivery Oxygen Flow Rate 09/09/22 22:00 09/10/22 00:00 09/10/22 00:00 Temperature Pulse Rate 73 80 80 Respiratory Rate 22 H Blood Pressure Pulse Oximetry 100 Oxygen Delivery Room Air Oxygen Flow Rate 09/10/22 04:00 09/10/22 02:00 09/10/22 04:00 Temperature 97.6 F Pulse Rate 79 84 77 Respiratory Rate 22 H Blood Pressure 109/74 Pulse Oximetry 100 Oxygen Delivery Room Air Oxygen Flow Rate 09/10/22 04:00 09/10/22 06:00 Temperature Pulse Rate 77 78 Respiratory Rate Blood Pressure Pulse Oximetry
[2022-09-10] MEDS: THERAPEUTIC MULTIVITAMINS/MINERALS TAB (*BKC) 1 TABLET PO (09:14)
[2022-09-10] MEDS: buPROPion HCL XL (24 HR) 150 MG TABCR 300 MG PO (09:14)
[2022-09-10] MEDS: ASPIRIN 81 MG ENTERIC TABLET PO (09:14)
[2022-09-10] MEDS: APIXABAN 5 MG TABLET PO ×2 (09:14→21:32)
[2022-09-10] MEDS: FAMOTIDINE 20 MG TABLET PO (09:43)
[2022-09-10] MEDS: METOPROLOL SUCCINATE EXT REL 100 MG TABCR PO (09:43)
[2022-09-10] MEDS: GABAPENTIN 300 MG CAPSULE PO ×4 (09:43→21:32)
[2022-09-10] MEDS: LEVOTHYROXINE SODIUM 100 MCG TABLET PO (09:43)
[2022-09-10] MEDS: HYDROcodone/acetaminophen (*CRX) 10-325 MG TABLET 1 TAB PO (11:50)
[2022-09-10 11:57] LABS: Glucose Point of Care 105 mg/dl (65-105)
[2022-09-10] MEDS: MAGNESIUM OXIDE 400 MG TABLET PO (13:14)
[2022-09-10 15:48] LABS: Glucose Point of Care 159 mg/dl (65-105)
--- NOTE | 2022-09-10 18:22 | PC.NURSE ---
This patient, Taye Marrero Jr., was transferred to [[id number] ] on 09/10/22 at 1818. Personal belongings sent with patient. Report given to [ ]. Appropriate documentation sent with patient.
--- NOTE | 2022-09-10 18:29 | PC.NURSE ---
This patient, Taye Kwan Janes Monroy, was received from [[id number]] on 09/10/22 at 1823. Patient/family oriented to unit policies and routines
[2022-09-10 21:27] LABS: Glucose Point of Care 173 mg/dl (65-105)
[2022-09-10] MEDS: PRAVASTATIN SODIUM 20 MG TABLET 40 MG PO (21:31)
[2022-09-10] MEDS: traZODone HCL 50 MG TABLET 150 MG PO (21:31)
[2022-09-10] MEDS: INSULIN HUMAN ISOPHAN/REGULAR 70/30 (*BKC) 100 UNITS/ML 20 UNITS SUB-Q (21:49)
[2022-09-11] MEDS: LEVOTHYROXINE SODIUM 100 MCG TABLET PO (05:57)
[2022-09-11 06:00] VITALS: BP 95/46; PULSE 77; RESP 16; TEMP 35.7; O2SAT 98
[2022-09-11] MEDS: INSULIN HUMAN ISOPHAN/REGULAR 70/30 (*BKC) 100 UNITS/ML 25 UNITS SUB-Q (09:34)
[2022-09-11 09:36] VITALS: PULSE 60
[2022-09-11] MEDS: FAMOTIDINE 20 MG TABLET PO (09:36)
[2022-09-11] MEDS: ASPIRIN 81 MG ENTERIC TABLET PO (09:36)
[2022-09-11] MEDS: GABAPENTIN 300 MG CAPSULE PO ×3 (09:36→17:27)
[2022-09-11] MEDS: buPROPion HCL XL (24 HR) 150 MG TABCR 300 MG PO (09:36)
[2022-09-11] MEDS: METOPROLOL SUCCINATE EXT REL 100 MG TABCR PO (09:36)
[2022-09-11] MEDS: THERAPEUTIC MULTIVITAMINS/MINERALS TAB (*BKC) 1 TABLET PO (09:38)
[2022-09-11] MEDS: APIXABAN 5 MG TABLET PO (09:40)
[2022-09-11 10:01] LABS: Basophils Absolute Auto 0.1 K/mm3 (0.0-0.1); Hematocrit 41.7 % (42.0-52.0); Hemoglobin 12.8 g/dL (14.0-18.0); Immature Granulocyte Absolute 0.01 K/mm3 (0.00-0.031); Immature Granulocyte Percent A 0.2 % (0-0.5); Lymphocytes Absolute Auto 1.39 K/mm3 (0.9-3.2); Lymphocytes Percent Auto 24.1 % (18.3-44.2); Mean Corpuscular HGB Conc 30.7 g/dl (32-36); Mean Corpuscular Hemoglobin 27.2 pg (26-34); Mean Corpuscular Volume 88.7 fl (80-100); Mean Platelet Volume 9.3 fl (7.4-10.4); Monocytes Absolute Auto 0.7 K/mm3 (0.1-0.6); Monocytes Percent Auto 12.3 % (2.6-8.5); Neutrophils Absolute Auto 2.6 K/mm3 (1.3-6.7); Neutrophils Percent Auto 45.4 % (45.5-73.1); Platelet Count Result 210 k/mm3 (150-375); Red Cell Distribution Width 14.3 % (11.5-14.5); White Blood Count 5.8 K/mm3 (4.5-10.0)
[2022-09-11 10:23] LABS: Alanine Aminotransferase 11 U/L (6-50); Albumin Level 3.2 g/dL (3.5-5.1); Alkaline Phosphatase 53 U/L (38-126); Anion Gap 3 mmol/L (8-16); Aspartate Amino Transferase 24 U/L (17-59); Bilirubin,Total 0.3 mg/dL (0.2-1.3); Blood Urea Nitrogen 15 mg/dL (9-20); Calcium 9.7 mg/dL (8.4-10.2); Carbon Dioxide 30 mmol/L (22-30); Chloride 101 mmol/L (98-107); Estimated CRCL calculation 94 ml/min; Estimated Glomerular Filt Rate > 60; Glucose 113 mg/dL (65-110); Potassium 3.7 mmol/L (3.4-5.0); Sodium 134 mmol/L (137-145)
--- NOTE | 2022-09-11 10:30 | PM.IMPN ---
Progress Note: A&P Assessment and Plan (1) Sepsis: Code(s): A41.9 - Sepsis, unspecified organism Status: Acute Assessment and Plan: resolving, cont abx leuk cont to improve unsure of source, improved on rocephin, transition to oral abx and anticipate d/c tomorrow check crp, pct, urine and blood cx all NGTD (2) Complicated urinary tract infection: Code(s): N39.0 - Urinary tract infection, site not specified Status: Acute Assessment and Plan: rocephin started 09/09 (3) Yeast dermatitis: Code(s): B37.2 - Candidiasis of skin and nail Status: Acute Assessment and Plan: cont miconazole cream (4) Insulin dependent diabetes mellitus: Status: Acute Assessment and Plan: accuchecks, SSI blood glucose reviewed 09/11 (5) Hypothyroidism: Code(s): E03.9 - Hypothyroidism, unspecified Status: Acute Assessment and Plan: tsh wnl, cont levothyroxine (6) Confusion: Code(s): R41.0 - Disorientation, unspecified Status: Acute Assessment and Plan: improving, check b12, folate, tsh wnl Plan DVT prophylaxis with eliquis GI prophylaxis not indicated Code status full code Subjective Date/time seen: 09/11/22 10:30 Interval history: 67-year-old male with multiple comorbidities presenting with confusion and being treated for UTI. No overnight events noted. No chest pain or shortness of breath. No nausea, vomiting or diarrhea. No fevers or chills. AMS much improved. Review of Systems Review of Systems: 12 point review of systems was assessed and was negative except as noted in the HPI Exam Narrative: General: No acute distress, alert and oriented per baseline HEENT: Atraumatic, normocephalic, mucous membranes moist CV: Regular rate and rhythm, S1, S2 Lungs: Clear to auscultation bilaterally, no rales or crackles noted, no wheezes, good air entry Abdomen: Soft, nontender, nondistended Extremities: Severe B/L LE brawny venous stasis dermatitis with 1+ pitting edema B/L, minimal erythema, no warmth or purulence, some open areas with serous drainage noted Skin: No rashes noted, no lesions or wounds seen Psych: Unable to assess Objective Data Vital Signs Vital Signs: Vital Signs - 24 hr 09/10/22 12:00 09/10/22 14:00 09/10/22 16:00 Temperature 99.0 F Pulse Rate 96 80 81 Respiratory Rate 16 Blood Pressure 120/69 Pulse Oximetry 97 Oxygen Delivery 09/10/22 20:00 09/10/22 22:00 09/11/22 06:00 Temperature 96.0 F L 96.2 F L Pulse Rate 76 77 Respiratory Rate 14 16 Blood Pressure 139/77 95/46 L Pulse Oximetry 98 98 Oxygen Delivery Room Air 09/11/22 09:36 Temperature Pulse Rate 60 Respiratory Rate Blood Pressure Pulse Oximetry Oxygen Delivery Intake/Output Intake/Output: Intake & Output 09/08/22 09/09/22 09/10/22 09/11/22 23:59 23:59 23:59 23:59 Intake Total 550 3780 1000 Output Total 225 1900 750 Balance 325 1880 250 Meds/Results Medications: Active Medications Generic Name Dose Route Start Last Admin Trade Name Freq PRN Reason Stop Dose Admin Acetaminophen 650 mg 09/09/22 23:09 Acetaminophen 325 Mg Tablet PO Q6H PRN Mild Pain (1-3) or Fever Hydrocodone Bitart/Acetaminophen 1 tab 09/10/22 07:21 09/10/22 11:50 Hydrocodone/Acetaminophen (*Crx) 10-325 Mg Tablet PO 1 tab Q6H PRN Administration Pain Rated 7-10 Hydrocodone Bitart/Acetaminophen 1 tab 09/10/22 08:22 Hydrocodone/Acetaminophen (*Crx) 5-325 Mg Tablet PO Q6H PRN Pain (Scale Score 4-6) Albuterol 2.5 mg 09/10/22 08:32 Albuterol Sulfate Neb 2.5 Mg/3 Ml Inh INHALATION Q4H PRN Wheezing Apixaban 5 mg 09/10/22 09:00 09/11/22 09:40 Apixaban 5 Mg Tablet PO 5 mg Q12HR HERMILO Administration Aspirin 81 mg 09/10/22 09:00 09/11/22 09:36 Aspirin 81 Mg Enteric Tablet PO 81 mg QAM HERMILO Administration Bupropion
[2022-09-11 12:02] LABS: Glucose Point of Care 126 mg/dl (65-105)
[2022-09-11 12:09] LABS: CRP 2.4 mg/dL (<1.0)
[2022-09-11 12:24] LABS: Procalcitonin 0.9 ng/mL
[2022-09-11 12:28] LABS: Vitamin D 25 Hydroxy 14.9 ng/mL
[2022-09-11] MEDS: MAGNESIUM OXIDE 400 MG TABLET PO (12:35)
[2022-09-11] MEDS: CEPHALEXIN 500 MG CAPSULE PO ×2 (12:35→17:27)
[2022-09-11 13:10] LABS: Folic Acid 5.5 ng/mL (2.76->20)
--- NOTE | 2022-09-11 13:41 | PM.DS ---
DS: Admitting Diagnosis Discharge Date 09/11/22 Admitting Diagnosis ams DS: Discharge Diagnosis Discharge Diagnosis (1) Sepsis: Code(s): A41.9 - Sepsis, unspecified organism Status: Acute Assessment and Plan: resolving, cont abx leuk cont to improve unsure of source, improved on rocephin, transition to oral abx and anticipate d/c tomorrow check crp, pct, urine and blood cx all NGTD (2) Complicated urinary tract infection: Code(s): N39.0 - Urinary tract infection, site not specified Status: Acute Assessment and Plan: rocephin started 09/09 (3) Yeast dermatitis: Code(s): B37.2 - Candidiasis of skin and nail Status: Acute Assessment and Plan: cont miconazole cream (4) Insulin dependent diabetes mellitus: Status: Acute Assessment and Plan: accuchecks, SSI blood glucose reviewed 09/11 (5) Hypothyroidism: Code(s): E03.9 - Hypothyroidism, unspecified Status: Acute Assessment and Plan: tsh wnl, cont levothyroxine (6) Confusion: Code(s): R41.0 - Disorientation, unspecified Status: Acute Assessment and Plan: improving, check b12, folate, tsh wnl Plan DVT prophylaxis with eliquis GI prophylaxis not indicated Code status full code DS: Summary Hospital Course Hospital Course: 67-year-old male with multiple comorbidities presenting with confusion and being treated for UTI. Mentation completely resolved with Rocephin administration. Urine culture did come back negative, however, he did have symptoms of a UTI and mentation improved with antibiotics. Therefore, he was discharged to complete a course of antibiotics with Keflex. Please see above and med rec for details. Time Spent with Patient Time attestation: Total time spent providing and/or coordinating discharge services: Exam Narrative: General: No acute distress, alert and oriented per baseline HEENT: Atraumatic, normocephalic, mucous membranes moist CV: Regular rate and rhythm, S1, S2 Lungs: Clear to auscultation bilaterally, no rales or crackles noted, no wheezes, good air entry Abdomen: Soft, nontender, nondistended Extremities: Severe B/L LE brawny venous stasis dermatitis with 1+ pitting edema B/L, minimal erythema, no warmth or purulence, some open areas with serous drainage noted Skin: No rashes noted, no lesions or wounds seen Psych: Unable to assess DS: Data Data Completed and Pending Labs on day of discharge: Labs from last 24 hours 09/11/22 09/11/22 09/11/22 11:52 09:36 09:36 WBC RBC Hgb Hct MCV MCH MCHC RDW Plt Count MPV Immature Gran % (Auto) Neut % (Auto) Lymph % (Auto) Ware % (Auto) Eos % (Auto) Baso % (Auto) Lymph # (Auto) Ware # (Auto) Eos # (Auto) Baso # (Auto) Abs Immat Gran (auto) Absolute Neuts (auto) Absolute Nucleated RBC Nucleated RBC % Sodium Potassium Chloride Carbon Dioxide Anion Gap BUN Creatinine Estim Creat Clear Calc Estimated GFR Glucose POC Capillary Glucose 126 H Calcium Total Bilirubin AST ALT Alkaline Phosphatase C-Reactive Protein Total Protein Albumin Vitamin B12 Cancelled Vitamin D 25-Hydroxy 14.9 Folate Cancelled 5.5 Procalcitonin 0.9 09/11/22 09/10/22 09/10/22 09:36 20:49 15:45 WBC 5.8 RBC 4.70 Hgb 12.8 L Hct 41.7 L MCV 88.7 MCH 27.2 MCHC 30.7 L RDW 14.3 Plt Count 210 MPV 9.3 Immature Gran % (Auto) 0.2 Neut % (Auto) 45.4 L Lymph % (Auto) 24.1 Ware % (Auto) 12.3 H Eos % (Auto) 17.0 H Baso % (Auto) 1.0 Lymph # (Auto) 1.39 Ware # (Auto) 0.7 H Eos # (Auto) 1.0 H Baso # (Auto) 0.1 Abs Immat Gran (auto) 0.01 Absolute Neuts (auto) 2.6 Absolute Nucleated RBC 0.0 Nucleated RBC % 0.0 Sodium 134 L Potassium 3.7 Chloride 101 Carbon
[2022-09-11 14:00] VITALS: BP 140/83; PULSE 58; RESP 16; TEMP 36.6; O2SAT 100
[2022-09-11 15:39] LABS: SARS-CoV-2 RNA PCR Negative (Negative)
[2022-09-11 17:24] LABS: Glucose Point of Care 170 mg/dl (65-105)
--- NOTE | 2022-09-11 18:47 | PC.NURSE ---
Pt is discharging back to [facility]. Pt has been compliant with care. Pt has denied any pain today. Pt is A&O 2-3. Pt did not require any sliding scale insulin. Pt awaiting ambulance transport back to facility. Will continue to monitor pt.
[2022-09-11 20:15] VITALS: BP 140/83; PULSE 58; TEMP 36.6; O2SAT 100
== END 2022-09-11 20:15 ==
LOC: ANHED 17:55 → ANHIMU 18:38 → ANH3MEDSUR 09-11 13:41 → ANHIMU 09-15 07:50 → ANH3MEDSUR 09-15 07:50
PROVIDERS: Physician Assistant; Preventive Medicine Aerospace Medicine; Admitting Provider Family Medicine; Emergency Provider Physician Assistant; PCP Internal Medicine; Visit Provider Student in an Organized Health Care Education/Training Program
DX: A41.9 Sepsis, unspecified organism (principal); N39.0 Urinary tract infection, site not specified; B37.2 Candidiasis of skin and nail; E03.9 Hypothyroidism, unspecified; R41.0 Disorientation, unspecified; J44.9 Chronic obstructive pulmonary disease, unspecified; I87.2 Venous insufficiency (chronic) (peripheral); I11.0 Hypertensive heart disease with heart failure; I50.30 Unspecified diastolic (congestive) heart failure; Z20.822 Contact with and (suspected) exposure to COVID-19; J81.1 Chronic pulmonary edema; L98.7 Excessive and redundant skin and subcutaneous tissue; K21.9 Gastro-esophageal reflux disease without esophagitis; L30.8 Other specified dermatitis; N21.0 Calculus in bladder; E78.5 Hyperlipidemia, unspecified; R50.9 Fever, unspecified; R06.02 Shortness of breath; M16.0 Bilateral primary osteoarthritis of hip; I48.0 Paroxysmal atrial fibrillation; R94.31 Abnormal electrocardiogram [ECG] [EKG]; D72.829 Elevated white blood cell count, unspecified; E11.42 Type 2 diabetes mellitus with diabetic polyneuropathy; G47.33 Obstructive sleep apnea (adult) (pediatric); Z99.89 Dependence on other enabling machines and devices; Z91.199 Patient's noncompliance with other medical treatment and regimen due to unspecified reason; F32.A Depression, unspecified; Z79.4 Long term (current) use of insulin; Z79.82 Long term (current) use of aspirin; Z79.01 Long term (current) use of anticoagulants; Z79.51 Long term (current) use of inhaled steroids; Z79.891 Long term (current) use of opiate analgesic; Z79.899 Other long term (current) drug therapy
CPT/HCPCS: 36415; 70450; 71045; 72193; 80053; 81001; 82306; 82607; 82746; 82948; 83036; 83605; 83735; 83880; 84145; 84443; 85025; 85610; 85730; 86140; 87040; 87086; 87088; 87635; 93005; 96361; 96365; 96374; 96375; 99285; A9270; G0378; G0379; J0696; J1815; J7040; Q9967

== ENCOUNTER 2022-09-29 11:20 | Inpatient (IN) | payer MEDICARE, MEDICAID, SELFPAY ==
[2022-09-29] VITALS (20 sets, daily range): BP systolic 83–127; BP diastolic 57–107; PULSE 64–131; RESP 13–29; TEMP 36.3–37.4; O2SAT 79–100; BMI 37.2
--- NOTE | ~2022-09-29 | XR_ITS ---
Portable chest x-ray Comparison: 09/29/2022 Clinical History: Abnormal chest x-ray Findings: Mild haziness suggest mild pulmonary edema. No pleural effusion or pneumothorax. Cardiome diastinal silhouette is stable. Bones and soft tissues are unremarkable. Impression: Mild pulmonary edema pattern. Reviewed, dictated and finalized at [facility]. Impression: Mild pulmonary edema pattern.
--- NOTE | ~2022-09-29 | XR_ITS ---
EXAMINATION: XR chest 1V portable DATE: 09/29/2022 14:03 INDICATION: Altered mental status. TECHNIQUE: A single frontal view of the chest was obtained. COMPARISON: Chest single view 09/09/2022, CT abdomen and pelvis 06/23/2022 FINDINGS: There are hazy airspace opacities in all lung zones bilaterally. No pleural effusion or pne umothorax. Cardiomegaly is noted. IMPRESSION: 1. Diffuse lung disease, consistent with pulmonary edema versus pneumonia. 2. Cardiomegaly. Reviewed, dictated and finalized at location A.
--- NOTE | 2022-09-29 11:36 | ECG_ITS ---
Measurements Intervals Thor Rate: 120 P: MI: 0 QRS: 78 QRSD: 109 T: 25 QT: 326 QTc: 461 Interpretive Statements ATRIAL FIBRILLATION WITH RAPID VENTRICULAR RESPONSE CANNOT RULE OUT SEPTAL INFARCT, AGE INDETERMINATE BORDERLINE ST-T WAVE ABNORMALITY- INFERIOR LEADS BASELINE ARTIFACT- V6 ABNORMAL ECG COMPARED TO ECG 09/09/2022 13:18:37 NO SIGNIFICANT CHANGES Electronically Signed On 09-29-2022 11:44:04 CDT by Silver Torres D.O.
[2022-09-29 11:59] LABS: Basophils Absolute Auto 0.1 K/mm3 (0.0-0.1); Basophils Percent Auto 0.6 % (0.2-1.2); Eosinophils Absolute Auto 0.2 K/mm3 (0-0.3); Eosinophils Percent Auto 1.8 % (0-4.4); Hematocrit 43.8 % (42.0-52.0); Immature Granulocyte Absolute 0.06 K/mm3 (0.00-0.031); Immature Granulocyte Percent A 0.6 % (0-0.5); Lymphocytes Absolute Auto 0.35 K/mm3 (0.9-3.2); Lymphocytes Percent Auto 3.5 % (18.3-44.2); Mean Corpuscular Hemoglobin 27.6 pg (26-34); Mean Corpuscular Volume 86.2 fl (80-100); Mean Platelet Volume 9.5 fl (7.4-10.4); Monocytes Absolute Auto 0.5 K/mm3 (0.1-0.6); Monocytes Percent Auto 5.1 % (2.6-8.5); Neutrophils Percent Auto 88.4 % (45.5-73.1); Platelet Count Result 206 k/mm3 (150-375); Red Blood Count 5.08 M/mm3 (4.6-6.20); Red Cell Distribution Width 14.3 % (11.5-14.5); White Blood Count 10.1 K/mm3 (4.5-10.0)
[2022-09-29 12:12] LABS: Alanine Aminotransferase 14 U/L (6-50); Albumin Level 3.3 g/dL (3.5-5.1); Alkaline Phosphatase 70 U/L (38-126); Anion Gap 3 mmol/L (8-16); Aspartate Amino Transferase 20 U/L (17-59); Bilirubin,Total 0.8 mg/dL (0.2-1.3); Blood Urea Nitrogen 17 mg/dL (9-20); Calcium 9.6 mg/dL (8.4-10.2); Carbon Dioxide 27 mmol/L (22-30); Chloride 100 mmol/L (98-107); Estimated CRCL calculation 110 ml/min; Estimated Glomerular Filt Rate > 60; Glucose 177 mg/dL (65-110); Potassium 3.8 mmol/L (3.4-5.0); Sodium 130 mmol/L (137-145)
[2022-09-29 12:19] LABS: INR 1.5; Prothrombin Time 18.6 Seconds (11.1-14.7)
[2022-09-29 12:20] LABS: Partial Thromboplastin Time 41.7 SECONDS (22.3-36.8)
[2022-09-29] MEDS: METOPROLOL TARTRATE INJ 5 MG/5 ML VIAL IV PUSH (12:26)
[2022-09-29] MEDS: SODIUM CHLORIDE 0.9% IV 1,000 ML 999 ML IV CONT ×2 (12:26→13:33)
[2022-09-29 12:57] LABS: Appearance Urine Turbid (Clear); Bacteria Urine 4+ /hpf; Bilirubin Urine Negative (Negative); Blood Urine 3+ (Negative); Color Urine Dark Yellow (Yellow); Glucose Urine UA Negative (Negative); Ketones Urine Trace mg/dL (Negative); Leukocyte Esterase Ur 3+ LEU/UL (Negative); Nitrate Urine Positive (Negative); Protein Urine 3+ mg/dL (Negative); RBC Urine >100 /hpf (0-2); Specific Grav Ur 1.017 (1.001-1.035); Squamous Epithelial Cell Urine Occasional /hpf (Few); WBC Clumps Urine Present /HPF; WBC Urine >100 /hpf; pH Urine 5.5 (5.0-9.0)
[2022-09-29 13:04] LABS: Add Urine Microscopic? YES
--- NOTE | 2022-09-29 13:31 | ED.GENADULT ---
HPI - General Adult General Chief complaint: Altered Mental Status Stated complaint: AMS Time Seen by Provider: 09/29/22 11:49 History of Present Illness HPI narrative: Patient is a 67-year-old male who [facility] from [facility] with altered mental status. At baseline patient is alert and oriented x4 however today he is oriented x0. He has new oxygen requirement. He also has an indwelling Coats catheter. Patient does smell since he is of urine at this time and the urine in the catheter is quite dark. Patient recently hospitalized for UTI as well. The culture showed mixed iralnda. Related Data Home Medications Medication Instructions Recorded Confirmed gabapentin 300 mg capsule 300 mg PO QID 02/15/21 09/29/22 ipratropium 0.5 mg-albuterol 3 mg 3 ml inhalation Q4H PRN Wheezing 02/15/21 09/29/22 (2.5 mg base)/3 mL nebulization soln levothyroxine 100 mcg tablet 100 mcg PO DAILY 02/15/21 09/29/22 insulin NPH-regular 70-30 U-100 20 unit subcut HS 12/08/21 09/29/22 insulin 100 unit/mL subcutaneous pen (Novolin 70-30 FlexPen U-100 Insulin) pravastatin 40 mg tablet 40 mg PO HS 12/08/21 09/29/22 multivitamin with minerals-folic 1 tablet PO DAILY 03/02/22 09/29/22 acid 0.4 mg tablet furosemide 40 mg tablet 60 mg PO DAILY 06/23/22 09/29/22 hydrocodone 5 mg-acetaminophen 325 1 tablet PO Q6H PRN Pain (Scale 06/23/22 09/29/22 mg tablet Score 4-6) insulin NPH-regular 70-30 U-100 25 unit subcut QAM 06/23/22 09/29/22 insulin 100 unit/mL subcutaneous pen (Novolin 70-30 FlexPen U-100 Insulin) acetaminophen 325 mg capsule 650 mg PO Q4-6H 09/10/22 09/29/22 (Tylenol) bupropion HCl 300 mg 24 hr tablet, 300 mg PO QAM 09/10/22 09/29/22 extended release famotidine 20 mg tablet 20 mg PO DAILY ##0 09/10/22 09/29/22 sennosides 8.6 mg-docusate sodium 1 tablet PO BID PRN Constipation 09/10/22 09/29/22 50 mg tablet (Senna Plus) ammonium lactate 12 % topical cream 1 applic topical DAILY 09/29/22 09/29/22 hydrocortisone 0.5 % topical cream 1 applic topical DAILY 09/29/22 09/29/22 silver sulfadiazine 1 % topical 1 applic topical DAILY 09/29/22 09/29/22 cream Allergies Allergy/AdvReac Type Severity Reaction Status Date / Time No Known Allergies Allergy Verified 09/29/22 13:26 Review of Systems Review of Systems: ROS unobtainable: Yes unobtainable due to mental status [facility] Past Medical History Medical History Choledocholithiasis (05/2022) Chronic obstructive pulmonary disease Chronic venous insufficiency Depression Diastolic congestive heart failure Gastroesophageal reflux disease Hyperlipidemia Hypertension Hypothyroidism Insulin dependent diabetes mellitus Kidney stones Obstructive sleep apnea Non-compliant with CPAP. Paroxysmal atrial fibrillation Peripheral neuropathy Surgical History Surgical History History of appendectomy History of back surgery History of cataract extraction History of hemorrhoidectomy History of tonsillectomy and adenoidectomy Family History Family History Sibling Family history of obesity Hypertension Family history of diabetes mellitus in first degree relative Family history of heart disease in male family member before age 55 Patient's sister is in good health Patient's brother is Mother Family history of arthritis Family history of malignant neoplasm Patient's mother is Father Patient's father is Other Malignant neoplasm of prostate Unknown family medical history Social History Social History (Updated 09/29/22 @ 17:58 by Laura Bishop NP) Social History: He resides at [facility]. He had 2 children Surrogate medical decision maker: Marlys Marrero, . Code status: Do not resuscitate. Smoking
[2022-09-29 14:10] LABS: Lactic Acid Reflex 1.9 mmol/L (0.7-2.0)
[2022-09-29] MEDS: AZITHROMYCIN 500 MG/NS 250 ML 500 MG/250 ML BAG 250 MG IVPB (14:35)
--- NOTE | 2022-09-29 14:41 | PM.IMHP ---
H&P: HPI History of Present Illness Date/Time: 09/29/22 14:41 Chief Complaint: Altered mental status Narrative: This is a 67-year-old male patient who resides at [facility]. The is at the bedside answering questions. The stated that the patient typically does not walk on his own. His white count is 10.1. Glucose is 177. Sodium is 130. The patient was positive for UTI. Head CT was read as no acute intracranial findings age-related findings. Pelvis CT was read as subcutaneous fat straining in the thighs consistent with edema versus inflammation no abscess. Chest x-ray was read as a diffuse lung disease consistent with pulmonary edema versus pneumonia. Cardiomegaly. The patient was started on azithromycin and Rocephin. He was also given fentanyl for pain. His blood pressure is 108/59. Pulse 105. Previously his blood pressure was 83/57. The patient was given IV fluids and his blood pressure did come up. The patient is being admitted to observation status on the date of service 09/29/2022. Review of Systems Review of Systems: All systems reviewed & are unremarkable except as noted in HPI and below Constitutional: Constitutional: Reports as per HPI and Reports no additional constitutional complaints Eyes: Eyes: Reports as per HPI and Reports no additional eye complaints ENT: Reports system reviewed and no additional complaints, except as documented and Reports Normal hearing present Cardiovascular: Cardiovascular: Reports no additional cardiovascular complaints Respiratory: Respiratory: Reports no additional respiratory complaints and Reports no additional respiratory complaints Gastrointestinal: Gastrointestinal: Reports as per HPI and Reports no additional gastrointestinal complaints Musculoskeletal: Musculoskeletal: Reports no additional musculoskeletal complaints Integumentary/Breasts: Skin/Breast: Reports system reviewed and no additional complaints, except as docu and Reports as per HPI Neurologic: Reports system reviewed and no additional complaints, except as documented, Reports as per HPI and Reports Normal hearing present Psychiatric: Psychiatric: Reports no additional psychiatric complaints and Reports as per HPI Endocrine: Endocrine: Reports no additional endocrine complaints Hematologic/Lymphatic: Hematologic/Lymphatic: Reports no additional hematologic/lymphatic complaints Allergic/Immunologic: Allergic/Immunologic: Reports no additional allergic/immunologic complaints [facility] Past Medical History Medical History Choledocholithiasis (05/2022) Chronic obstructive pulmonary disease Chronic venous insufficiency Depression Diastolic congestive heart failure Gastroesophageal reflux disease Hyperlipidemia Hypertension Hypothyroidism Insulin dependent diabetes mellitus Kidney stones Obstructive sleep apnea Non-compliant with CPAP. Paroxysmal atrial fibrillation Peripheral neuropathy Surgical History Surgical History History of appendectomy History of back surgery History of cataract extraction History of hemorrhoidectomy History of tonsillectomy and adenoidectomy Family History Family History Sibling Family history of obesity Hypertension Family history of diabetes mellitus in first degree relative Family history of heart disease in male family member before age 55 Patient's sister is in good health Patient's brother is Mother Family history of arthritis Family history of malignant neoplasm Patient's mother is Father Patient's father is Other Malignant neoplasm of prostate Unknown family medical history Social History Social History (Updated 09/29/22 @ 17:58 by Laura Bishop NP) Social History: He resides at [facility]
[2022-09-29] MEDS: fentaNYL CITRATE INJ (*CRX) 100 MCG/2 ML VIAL 50 MCG IV PUSH (14:56)
--- NOTE | 2022-09-29 17:15 | ADMGEN ---
This patient, Taye Marrero Jr., was admitted to IMU Room 206-01. Patient/family oriented to hospital policies and general routines including ID bracelet, bed and alarms, visiting hours, pain management, procedures, bathroom and other care routines, personal items, smoking policy, room service/diet, and visiting hours. Information on how to activate the Rapid Response Team has been discussed. Patient/Family are encouraged to report perceived risks to care and to ask questions if they do not understand what they are told or what they should do.
[2022-09-29 19:59] LABS: Glucose Point of Care 181 mg/dl (65-105)
[2022-09-29] MEDS: MEROPENEM 1 GM in SODIUM CHLORIDE 0.9% IV 100 ML 200 ML IVPB (20:11)
[2022-09-29] MEDS: IPRATROPIUM BR 0.02% INH SOLN 0.5 MG/2.5 ML VIAL INHALATION (20:23)
[2022-09-29] MEDS: ALBUTEROL SULFATE NEB 2.5 MG/3 ML INH INHALATION (20:23)
[2022-09-29] MEDS: GABAPENTIN 300 MG CAPSULE PO (20:29)
[2022-09-29] MEDS: PRAVASTATIN SODIUM 20 MG TABLET 40 MG PO (20:29)
[2022-09-29] MEDS: traZODone HCL 50 MG TABLET 150 MG PO (20:30)
[2022-09-29] MEDS: APIXABAN 5 MG TABLET PO (20:30)
[2022-09-30] VITALS (18 sets, daily range): BP systolic 107–143; BP diastolic 56–85; PULSE 54–108; RESP 18–22; TEMP 36.1–37.4; O2SAT 90–100; BMI 38.1
[2022-09-30] MEDS: IPRATROPIUM BR 0.02% INH SOLN 0.5 MG/2.5 ML VIAL INHALATION ×4 (02:14→19:26)
[2022-09-30] MEDS: ALBUTEROL SULFATE NEB 2.5 MG/3 ML INH INHALATION ×4 (02:14→19:27)
[2022-09-30] MEDS: MEROPENEM 1 GM in SODIUM CHLORIDE 0.9% IV 100 ML 200 ML IVPB (04:38)
[2022-09-30 05:01] LABS: Basophils Absolute Auto 0.1 K/mm3 (0.0-0.1); Basophils Percent Auto 0.6 % (0.2-1.2); Eosinophils Absolute Auto 0.5 K/mm3 (0-0.3); Eosinophils Percent Auto 4.5 % (0-4.4); Hematocrit 38.9 % (42.0-52.0); Hemoglobin 11.9 g/dL (14.0-18.0); Immature Granulocyte Absolute 0.05 K/mm3 (0.00-0.031); Immature Granulocyte Percent A 0.5 % (0-0.5); Lymphocytes Absolute Auto 1.28 K/mm3 (0.9-3.2); Lymphocytes Percent Auto 12.5 % (18.3-44.2); Mean Corpuscular HGB Conc 30.6 g/dl (32-36); Mean Corpuscular Hemoglobin 27.2 pg (26-34); Mean Corpuscular Volume 88.8 fl (80-100); Mean Platelet Volume 9.5 fl (7.4-10.4); Monocytes Percent Auto 9.6 % (2.6-8.5); Neutrophils Absolute Auto 7.4 K/mm3 (1.3-6.7); Neutrophils Percent Auto 72.3 % (45.5-73.1); Platelet Count Result 196 k/mm3 (150-375); Red Blood Count 4.38 M/mm3 (4.6-6.20); Red Cell Distribution Width 14.6 % (11.5-14.5); White Blood Count 10.3 K/mm3 (4.5-10.0)
[2022-09-30 05:09] LABS: Alanine Aminotransferase 12 U/L (6-50); Albumin Level 2.8 g/dL (3.5-5.1); Alkaline Phosphatase 51 U/L (38-126); Anion Gap 3 mmol/L (8-16); Aspartate Amino Transferase 18 U/L (17-59); Bilirubin,Total 0.4 mg/dL (0.2-1.3); Blood Urea Nitrogen 20 mg/dL (9-20); Calcium 9.2 mg/dL (8.4-10.2); Carbon Dioxide 31 mmol/L (22-30); Chloride 100 mmol/L (98-107); Estimated CRCL calculation 86 ml/min; Estimated Glomerular Filt Rate > 60; Glucose 129 mg/dL (65-110); Magnesium 1.8 mg/dL (1.6-2.3); Potassium 3.8 mmol/L (3.4-5.0); Sodium 134 mmol/L (137-145)
[2022-09-30 05:16] LABS: Hemoglobin A1C 6.9 % (<5.7)
[2022-09-30] MEDS: LEVOTHYROXINE SODIUM 100 MCG TABLET PO (06:25)
[2022-09-30 08:15] LABS: Glucose Point of Care 109 mg/dl (65-105)
[2022-09-30] MEDS: cefTRIAXone 2 GM/NS 100 ML 2 GM/100 ML BAG IVPB (10:06)
[2022-09-30] MEDS: METOPROLOL SUCCINATE EXT REL 100 MG TABCR PO (10:08)
[2022-09-30] MEDS: APIXABAN 5 MG TABLET PO ×2 (10:08→20:16)
[2022-09-30] MEDS: FUROSEMIDE 20 MG TABLET 60 MG PO (10:09)
[2022-09-30] MEDS: GABAPENTIN 300 MG CAPSULE PO ×4 (10:09→20:16)
[2022-09-30] MEDS: buPROPion HCL XL (24 HR) 150 MG TABCR 300 MG PO (10:09)
[2022-09-30] MEDS: THERAPEUTIC MULTIVITAMINS/MINERALS TAB (*BKC) 1 TABLET PO (10:09)
[2022-09-30] MEDS: FAMOTIDINE 20 MG TABLET PO (10:10)
[2022-09-30] MEDS: ASPIRIN 81 MG ENTERIC TABLET PO (10:10)
--- NOTE | 2022-09-30 11:18 | PM.IMPN ---
Progress Note: A&P Assessment and Plan (1) Complicated urinary tract infection: Code(s): N39.0 - Urinary tract infection, site not specified Status: Acute Assessment and Plan: Continue antibiotics. Positive blood cultures (2) Diastolic congestive heart failure: Code(s): I50.30 - Unspecified diastolic (congestive) heart failure Status: Acute Assessment and Plan: Chest x-ray noted. Will give 1 dose of Lasix IV Continue with metoprolol and Lasix Last echo 1. Complete two-dimensional, color flow and Doppler transthoracic echocardiogram is performed. ? 2. Technically challenging echocardiogram with suboptimal patient positioning. ? 3. Normal left ventricular size and systolic function. ? 4. Biatrial dilation. ? 5. Atrial fibrillation. ? 6. No significant valvular dysfunction. ? 7. Compared with echocardiogram from November of 2021 the findings are essentially identical. (3) Chronic obstructive pulmonary disease: Code(s): J44.9 - Chronic obstructive pulmonary disease, unspecified Status: Acute Assessment and Plan: Continue with nebulizer treatments. (4) Hypertension: Code(s): I10 - Essential (primary) hypertension Status: Acute Assessment and Plan: Continue with metoprolol (5) Hypothyroidism: Code(s): E03.9 - Hypothyroidism, unspecified Status: Acute Assessment and Plan: Continue levothyroxine (6) Obstructive sleep apnea: Code(s): G47.33 - Obstructive sleep apnea (adult) (pediatric) Status: Acute Assessment and Plan: Patient has not complained (7) Paroxysmal atrial fibrillation: Code(s): I48.0 - Paroxysmal atrial fibrillation Status: Acute Assessment and Plan: Continue with apixaban and metoprolol Subjective Date/time seen: 09/30/22 11:18 Interval history: Feeling a little better. Denies chest pain shortness a breath Exam Const: General: alert, awake, average body habitus, well nourished and overweight Nutritional Appearance: average body habitus, well nourished and overweight Orientation/consciousness: oriented to person Limitations: no limitations HENMT: Head: normal to inspection, No palpable skull fracture present, normocephalic, atraumatic and abrasion Ears: hearing grossly normal bilaterally and external ears normal Face/Nose/Sinus: Normal external nose present and Normal nares present Mouth: Yes Normal oral and palatal mucosa present Eyes: General: appearance normal, both eyes and all related structures Alignment and Position: alignment normal Periorbital: periorbital findings normal Eyelids: eyelids normal Sclera: sclerae normal Pupils: Equal, round and reactive pupils present EOM: EOMs intact bilaterally Neck: Neck: normal visual inspection, full ROM, no lymphadenopathy, trachea midline and supple Chest: Chest palpation & inspection: normal inspection of the chest Resp: Effort & Inspection: normal respiratory effort Auscultation: diminished lung sounds Cardio: Palpation: normal PMI Rate: regular rate Rhythm: regular rhythm and abnormal rhythm Heart sounds: S1 normal heart sound present and S2 normal heart sound present Peripheral pulses: Peripheral pulses 2+ throughout GI: Inspection: normal to inspection Auscultation: normal bowel sounds Rectal Exam: deferred Back/Spine/Pelvis: Cervical Spine: cervical ROM normal Skin: General skin exam: normal color Lesions: no lesions Rashes: no rashes Trauma: no lacerations or abrasions Wounds: no wounds Hair: normal Nails: normal Other: Patient has multiple blisters to his lower extremities and he was the 2 x 2 dressing the left lower extremity. Neuro: General: oriented to person Cranial nerves: Yes Equal, round and reactive pupils present and Yes Normal hearing present Cognition (Neuro): normal cognition Speech: normal speech Sensory Exam: normal sensation Extrem: General: normal to inspection Righ
[2022-09-30 12:30] LABS: Glucose Point of Care 137 mg/dl (65-105)
[2022-09-30] MEDS: FUROSEMIDE INJ 40 MG/4 ML VIAL 20 MG IV PUSH (12:46)
[2022-09-30] MEDS: MAGNESIUM OXIDE 400 MG TABLET PO (12:48)
[2022-09-30 16:39] LABS: Glucose Point of Care 153 mg/dl (65-105)
[2022-09-30] MEDS: INSULIN ASPART (*BKC) 100 UNITS/ML SUB-Q (20:02)
[2022-09-30 20:09] LABS: Glucose Point of Care 222 mg/dl (65-105)
--- NOTE | 2022-09-30 20:10 | PC.NURSE ---
This patient, Taye Marrero Jr., was transferred to [room 323-1 ] on 09/30/22 at 2010. Personal belongings sent with patient. Report given to [RONNIE Lynn ]. Appropriate documentation sent with patient. Pt's spouse notified that pt is moving to another room.
[2022-09-30] MEDS: PRAVASTATIN SODIUM 20 MG TABLET 40 MG PO (20:16)
[2022-09-30] MEDS: traZODone HCL 50 MG TABLET 150 MG PO (20:16)
[2022-09-30 21:33] LABS: Glucose Point of Care 236 mg/dl (65-105)
[2022-10-01] VITALS (10 sets, daily range): BP systolic 95–144; BP diastolic 51–73; PULSE 67–89; RESP 13–18; TEMP 36.5–36.9; O2SAT 90–97
[2022-10-01] MEDS: ALBUTEROL SULFATE NEB 2.5 MG/3 ML INH INHALATION ×4 (03:18→20:30)
[2022-10-01] MEDS: IPRATROPIUM BR 0.02% INH SOLN 0.5 MG/2.5 ML VIAL INHALATION ×4 (03:18→20:30)
[2022-10-01] MEDS: LEVOTHYROXINE SODIUM 100 MCG TABLET PO (06:51)
[2022-10-01 07:43] LABS: Glucose Point of Care 149 mg/dl (65-105)
[2022-10-01] MEDS: ASPIRIN 81 MG ENTERIC TABLET PO (08:25)
[2022-10-01] MEDS: THERAPEUTIC MULTIVITAMINS/MINERALS TAB (*BKC) 1 TABLET PO (08:25)
[2022-10-01] MEDS: APIXABAN 5 MG TABLET PO ×2 (08:25→20:57)
[2022-10-01] MEDS: buPROPion HCL XL (24 HR) 150 MG TABCR 300 MG PO (08:25)
[2022-10-01] MEDS: GABAPENTIN 300 MG CAPSULE PO ×4 (08:25→20:57)
[2022-10-01] MEDS: FUROSEMIDE 20 MG TABLET 60 MG PO (08:25)
[2022-10-01] MEDS: FAMOTIDINE 20 MG TABLET PO (08:26)
[2022-10-01] MEDS: METOPROLOL SUCCINATE EXT REL 100 MG TABCR PO (08:27)
[2022-10-01 11:47] LABS: Glucose Point of Care 207 mg/dl (65-105)
[2022-10-01] MEDS: INSULIN ASPART (*BKC) 100 UNITS/ML SUB-Q ×3 (12:20→21:04)
[2022-10-01] MEDS: MAGNESIUM OXIDE 400 MG TABLET PO (12:21)
[2022-10-01] MEDS: cefTRIAXone 2 GM/NS 100 ML 2 GM/100 ML BAG IVPB (12:39)
[2022-10-01] MEDS: MEROPENEM 1 GM/NS 100 ML 1 GM/100 ML BAG IVPB ×2 (14:10→21:05)
--- NOTE | 2022-10-01 14:52 | PM.IMPN ---
Progress Note: A&P Assessment and Plan (1) Sepsis: Qualifiers: Sepsis acute organ dysfunction status: with acute organ dysfunction Sepsis type: sepsis due to unspecified organism Severe sepsis acute organ dysfunction type: encephalopathy Severe sepsis shock status: without septic shock Qualified Code(s): A41.9 - Sepsis, unspecified organism; R65.20 - Severe sepsis without septic shock; G93.40 - Encephalopathy, unspecified Code(s): A41.9 - Sepsis, unspecified organism Status: Acute Assessment and Plan: Patient with sepsis present admission with tachycardia, mildly elevated white count and hypotension. Related to complicated UTI. Blood cultures have returned positive with E coli in the he rolled back and anaerobic bottle. Urine culture growing ESBL E coli. Clinically improved. He is requesting discharge. Will change Rocephin over to meropenem given his soft blood pressures this morning. Narrow to ertapenem once the blood culture results have returned. (2) Complicated urinary tract infection: Code(s): N39.0 - Urinary tract infection, site not specified Status: Acute Assessment and Plan: As above. Patient has chronic indwelling Coats catheter. (3) Diastolic congestive heart failure: Code(s): I50.30 - Unspecified diastolic (congestive) heart failure Status: Acute Assessment and Plan: Chest x-ray shows diffuse lung disease consistent with pulmonary edema versus pneumonia. BNP was not drawn. Echocardiogram in May was technically difficult which showed EF of 60-65% and biatrial enlargement. No significant valvular disease. Diastolic function is indeterminate. Lasix IV x1 was given. He was started on his oral home Lasix but will hold this given his soft blood pressure. Repeat chest x-ray in the morning. (4) Chronic obstructive pulmonary disease: Code(s): J44.9 - Chronic obstructive pulmonary disease, unspecified Status: Acute Assessment and Plan: Stable. No wheezing. Not on chronic inhalers. Nebulizer treatments available as needed. (5) Hypertension: Code(s): I10 - Essential (primary) hypertension Status: Acute Assessment and Plan: Patient's blood pressure was reviewed on 10/01 Blood pressure remains soft at times Will continue to monitor closely (6) Hypothyroidism: Code(s): E03.9 - Hypothyroidism, unspecified Status: Acute Assessment and Plan: TSH normal. Continue levothyroxine. (7) Obstructive sleep apnea: Code(s): G47.33 - Obstructive sleep apnea (adult) (pediatric) Status: Acute Assessment and Plan: Patient has not compliant with treatment. (8) Paroxysmal atrial fibrillation: Code(s): I48.0 - Paroxysmal atrial fibrillation Status: Acute Assessment and Plan: EKG showing AFib with RVR on admisison. Clinically more regular now. Continue with apixaban and metoprolol. (9) Insulin dependent diabetes mellitus: Status: Acute Assessment and Plan: A1c 6.9 The patient's blood glucose was reviewed on 10/01 Glucose elevated at times Continue AccuCheks covering with sliding scale. Hypoglycemia protocol available as needed. Continue to monitor Subjective Date/time seen: 10/01/22 14:52 Interval history: 67yo male with dCHF, COPD, HTN and JUN here for altered mental status. Assuming care. Chart reviewed. No complaints of chest pain or abdominal pain. No back pain. States the Coats catheter has been placed for about 3 weeks. He is unsure why this was placed. Exam Narrative: AF 98.4 118/71 67 18 95% ra Gen - NARD Chest - bilateral L>R inspiratory crackles CV - RRR S1/S2 Abd - Soft, obese, firm square area mid abdomen c/w mesh - Coats secured draining clear yellow urine Ext - 1+ pedal edema Neuro - Alert and oriented x2 (location and Ayanna name) Psych - Nml mood and affect Skin - Warm and dry. Chron
[2022-10-01 16:46] LABS: Glucose Point of Care 199 mg/dl (65-105)
[2022-10-01 20:45] LABS: Glucose Point of Care 243 mg/dl (65-105)
[2022-10-01] MEDS: PRAVASTATIN SODIUM 20 MG TABLET 40 MG PO (20:57)
[2022-10-01] MEDS: traZODone HCL 50 MG TABLET 150 MG PO (20:57)
[2022-10-02] VITALS (11 sets, daily range): BP systolic 121–144; BP diastolic 79–87; PULSE 76–95; RESP 13–18; TEMP 36.1–37.1; O2SAT 91–100
[2022-10-02] MEDS: MEROPENEM 1 GM/NS 100 ML 1 GM/100 ML BAG IVPB ×3 (06:01→21:25)
[2022-10-02] MEDS: LEVOTHYROXINE SODIUM 100 MCG TABLET PO (06:01)
[2022-10-02 07:33] LABS: Basophils Absolute Auto 0.1 K/mm3 (0.0-0.1); Basophils Percent Auto 0.6 % (0.2-1.2); Eosinophils Percent Auto 12.7 % (0-4.4); Hematocrit 41.8 % (42.0-52.0); Hemoglobin 12.9 g/dL (14.0-18.0); Immature Granulocyte Absolute 0.02 K/mm3 (0.00-0.031); Immature Granulocyte Percent A 0.3 % (0-0.5); Lymphocytes Absolute Auto 1.15 K/mm3 (0.9-3.2); Lymphocytes Percent Auto 14.9 % (18.3-44.2); Mean Corpuscular HGB Conc 30.9 g/dl (32-36); Mean Corpuscular Hemoglobin 27.6 pg (26-34); Mean Corpuscular Volume 89.5 fl (80-100); Mean Platelet Volume 9.7 fl (7.4-10.4); Monocytes Absolute Auto 0.9 K/mm3 (0.1-0.6); Monocytes Percent Auto 12.2 % (2.6-8.5); Neutrophils Absolute Auto 4.6 K/mm3 (1.3-6.7); Neutrophils Percent Auto 59.3 % (45.5-73.1); Platelet Count Result 190 k/mm3 (150-375); Red Blood Count 4.67 M/mm3 (4.6-6.20); Red Cell Distribution Width 14.5 % (11.5-14.5); White Blood Count 7.7 K/mm3 (4.5-10.0)
[2022-10-02 07:55] LABS: Glucose Point of Care 136 mg/dl (65-105)
[2022-10-02 07:56] LABS: Albumin Level 3.1 g/dL (3.5-5.1); Anion Gap 3 mmol/L (8-16); Blood Urea Nitrogen 16 mg/dL (9-20); Carbon Dioxide 30 mmol/L (22-30); Chloride 99 mmol/L (98-107); Estimated CRCL calculation 97 ml/min; Estimated Glomerular Filt Rate > 60; Glucose 135 mg/dL (65-110); Magnesium 1.7 mg/dL (1.6-2.3); Phosphorus 2.7 mg/dL (2.5-4.5); Potassium 3.5 mmol/L (3.4-5.0); Sodium 132 mmol/L (137-145)
[2022-10-02] MEDS: THERAPEUTIC MULTIVITAMINS/MINERALS TAB (*BKC) 1 TABLET PO (08:47)
[2022-10-02] MEDS: ASPIRIN 81 MG ENTERIC TABLET PO (08:47)
[2022-10-02] MEDS: buPROPion HCL XL (24 HR) 150 MG TABCR 300 MG PO (08:48)
[2022-10-02] MEDS: GABAPENTIN 300 MG CAPSULE PO ×4 (08:48→20:33)
[2022-10-02] MEDS: FAMOTIDINE 20 MG TABLET PO (08:48)
[2022-10-02] MEDS: APIXABAN 5 MG TABLET PO ×2 (08:48→20:33)
[2022-10-02] MEDS: METOPROLOL SUCCINATE EXT REL 100 MG TABCR PO (08:49)
[2022-10-02] MEDS: IPRATROPIUM BR 0.02% INH SOLN 0.5 MG/2.5 ML VIAL INHALATION ×3 (09:12→20:00)
[2022-10-02] MEDS: ALBUTEROL SULFATE NEB 2.5 MG/3 ML INH INHALATION ×3 (09:12→20:00)
[2022-10-02 11:47] LABS: Glucose Point of Care 265 mg/dl (65-105)
[2022-10-02] MEDS: HYDROcodone/acetaminophen (*CRX) 5-325 MG TABLET 1 TAB PO (11:58)
[2022-10-02] MEDS: INSULIN ASPART (*BKC) 100 UNITS/ML SUB-Q ×2 (11:59→21:20)
[2022-10-02] MEDS: MAGNESIUM OXIDE 400 MG TABLET PO (12:02)
--- NOTE | 2022-10-02 15:11 | PM.IMPN ---
Progress Note: A&P Assessment and Plan (1) Sepsis: Qualifiers: Sepsis acute organ dysfunction status: with acute organ dysfunction Sepsis type: sepsis due to unspecified organism Severe sepsis acute organ dysfunction type: encephalopathy Severe sepsis shock status: without septic shock Qualified Code(s): A41.9 - Sepsis, unspecified organism; R65.20 - Severe sepsis without septic shock; G93.40 - Encephalopathy, unspecified Code(s): A41.9 - Sepsis, unspecified organism Status: Acute Assessment and Plan: Patient with sepsis present admission with tachycardia, mildly elevated white count and hypotension. Related to complicated UTI. Blood cultures have returned positive with E coli in the aerobic and anaerobic bottle. Urine culture growing ESBL E coli. Clinically improved. He was on Rocephin but changed to meropenem given his soft blood pressures. Narrow to ertapenem once the blood culture results have returned. (2) Complicated urinary tract infection: Code(s): N39.0 - Urinary tract infection, site not specified Status: Acute Assessment and Plan: As above. Patient has chronic indwelling Coats catheter. (3) Diastolic congestive heart failure: Code(s): I50.30 - Unspecified diastolic (congestive) heart failure Status: Acute Assessment and Plan: Chest x-ray shows diffuse lung disease consistent with pulmonary edema versus pneumonia. BNP was not drawn. Echocardiogram in May was technically difficult which showed EF of 60-65% and biatrial enlargement. No significant valvular disease. Diastolic function is indeterminate. Lasix IV x1 was given. He was started on his oral home Lasix but held given his soft blood pressure. CXR reviewed showing mild pulmonary edema. Will give Lasix IV once and resume home Lasix since BP better. (4) Chronic obstructive pulmonary disease: Code(s): J44.9 - Chronic obstructive pulmonary disease, unspecified Status: Acute Assessment and Plan: Stable. No wheezing. Not on chronic inhalers. Nebulizer treatments available as needed. (5) Hypertension: Code(s): I10 - Essential (primary) hypertension Status: Acute Assessment and Plan: Patient's blood pressure was reviewed on 10/02 Blood pressure better Will continue to monitor closely (6) Hypothyroidism: Code(s): E03.9 - Hypothyroidism, unspecified Status: Acute Assessment and Plan: TSH normal. Continue levothyroxine. (7) Obstructive sleep apnea: Code(s): G47.33 - Obstructive sleep apnea (adult) (pediatric) Status: Acute Assessment and Plan: Patient has not been compliant with treatment. (8) Paroxysmal atrial fibrillation: Code(s): I48.0 - Paroxysmal atrial fibrillation Status: Acute Assessment and Plan: EKG showing AFib with RVR on admisison. Continue with apixaban and metoprolol. (9) Insulin dependent diabetes mellitus: Status: Acute Assessment and Plan: A1c 6.9 The patient's blood glucose was reviewed on 10/02 Glucose elevated at times Continue AccuCheks covering with sliding scale. Hypoglycemia protocol available as needed. Continue to monitor Subjective Date/time seen: 10/02/22 15:11 Interval history: 67yo male with dCHF, COPD, HTN and JUN here for altered mental status. Feeling well. No problems overnight. No CP or SOB. Exam Narrative: AF 98.7 144/81 92 16 96% ra Gen - NARD Chest - few basilar crackles o/w clear CV - irregular Abd - Soft, obese, firm square area mid abdomen c/w mesh. NT - Coats secured draining clear yellow urine Ext - 1+ pedal edema Psych - Nml mood and affect Skin - Warm and dry. Chronic venous stasis skin changes bilateral LE with scale Objective Data Vital Signs Vital Signs: Vital Signs - 24 hr 10/01/22 20:30 10/01/22 20:40 10/01/22 20:40 Temperature Pulse Rate 72 74 72
[2022-10-02 17:16] LABS: Glucose Point of Care 171 mg/dl (65-105)
[2022-10-02] MEDS: POTASSIUM CHLORIDE 20 MEQ PACKET (FOR LIQUID) 40 MEQ PO (17:31)
[2022-10-02] MEDS: FUROSEMIDE INJ 40 MG/4 ML VIAL IV PUSH (17:31)
[2022-10-02 20:31] LABS: Glucose Point of Care 202 mg/dl (65-105)
[2022-10-02] MEDS: traZODone HCL 50 MG TABLET 150 MG PO (20:32)
[2022-10-02] MEDS: PRAVASTATIN SODIUM 20 MG TABLET 40 MG PO (20:33)
[2022-10-03] VITALS (12 sets, daily range): BP systolic 112–138; BP diastolic 65–78; PULSE 70–102; RESP 16–20; TEMP 36.3–36.9; O2SAT 93–99
[2022-10-03] MEDS: LEVOTHYROXINE SODIUM 100 MCG TABLET PO (05:50)
[2022-10-03] MEDS: MEROPENEM 1 GM/NS 100 ML 1 GM/100 ML BAG IVPB ×3 (05:52→22:30)
[2022-10-03] MEDS: ALBUTEROL SULFATE NEB 2.5 MG/3 ML INH INHALATION ×3 (07:35→19:55)
[2022-10-03] MEDS: IPRATROPIUM BR 0.02% INH SOLN 0.5 MG/2.5 ML VIAL INHALATION ×3 (07:35→19:56)
[2022-10-03 07:49] LABS: Glucose Point of Care 151 mg/dl (65-105)
[2022-10-03] MEDS: APIXABAN 5 MG TABLET PO ×2 (10:08→20:41)
[2022-10-03] MEDS: ASPIRIN 81 MG ENTERIC TABLET PO (10:08)
[2022-10-03] MEDS: buPROPion HCL XL (24 HR) 150 MG TABCR 300 MG PO (10:08)
[2022-10-03] MEDS: FUROSEMIDE 20 MG TABLET 60 MG PO (10:09)
[2022-10-03] MEDS: METOPROLOL SUCCINATE EXT REL 100 MG TABCR PO (10:09)
[2022-10-03] MEDS: GABAPENTIN 300 MG CAPSULE PO ×4 (10:09→20:41)
[2022-10-03] MEDS: THERAPEUTIC MULTIVITAMINS/MINERALS TAB (*BKC) 1 TABLET PO (10:09)
[2022-10-03 10:18] LABS: Albumin Level 3.2 g/dL (3.5-5.1); Anion Gap 3 mmol/L (8-16); Blood Urea Nitrogen 16 mg/dL (9-20); Calcium 9.3 mg/dL (8.4-10.2); Carbon Dioxide 33 mmol/L (22-30); Chloride 97 mmol/L (98-107); Estimated CRCL calculation 108 ml/min; Estimated Glomerular Filt Rate > 60; Glucose 131 mg/dL (65-110); Magnesium 1.8 mg/dL (1.6-2.3); Phosphorus 3.1 mg/dL (2.5-4.5); Potassium 3.9 mmol/L (3.4-5.0); Sodium 133 mmol/L (137-145)
[2022-10-03 11:48] LABS: Glucose Point of Care 198 mg/dl (65-105)
[2022-10-03] MEDS: HYDROcodone/acetaminophen (*CRX) 5-325 MG TABLET 1 TAB PO (13:08)
[2022-10-03] MEDS: MAGNESIUM OXIDE 400 MG TABLET PO (13:08)
--- NOTE | 2022-10-03 14:29 | PM.IMPN ---
Progress Note: A&P Assessment and Plan (1) Sepsis: Qualifiers: Sepsis acute organ dysfunction status: with acute organ dysfunction Sepsis type: sepsis due to unspecified organism Severe sepsis acute organ dysfunction type: encephalopathy Severe sepsis shock status: without septic shock Qualified Code(s): A41.9 - Sepsis, unspecified organism; R65.20 - Severe sepsis without septic shock; G93.40 - Encephalopathy, unspecified Code(s): A41.9 - Sepsis, unspecified organism Status: Acute Assessment and Plan: Patient with sepsis present admission with tachycardia, mildly elevated white count and hypotension. Related to complicated UTI. Blood cultures have returned positive with ESBL E coli in the aerobic and anaerobic bottle. Urine culture growing ESBL E coli. Clinically improved. He was on Rocephin but changed to meropenem given his soft blood pressures. Narrow to ertapenem starting tomorrow (2) Complicated urinary tract infection: Code(s): N39.0 - Urinary tract infection, site not specified Status: Acute Assessment and Plan: As above. Patient has chronic indwelling Coats catheter. (3) Diastolic congestive heart failure: Code(s): I50.30 - Unspecified diastolic (congestive) heart failure Status: Acute Assessment and Plan: Chest x-ray shows diffuse lung disease consistent with pulmonary edema versus pneumonia. BNP was not drawn. Echocardiogram in May was technically difficult which showed EF of 60-65% and biatrial enlargement. No significant valvular disease. Diastolic function is indeterminate. Lasix IV x1 was given. He was started on his oral home Lasix but held given his soft blood pressure. CXR reviewed showing mild pulmonary edema so Lasix IV once and resumed home Lasix. BP tolerating this (4) Chronic obstructive pulmonary disease: Code(s): J44.9 - Chronic obstructive pulmonary disease, unspecified Status: Acute Assessment and Plan: Stable. No wheezing. Not on chronic inhalers. Nebulizer treatments available as needed. (5) Hypertension: Code(s): I10 - Essential (primary) hypertension Status: Acute Assessment and Plan: Patient's blood pressure was reviewed on 10/03 Blood pressure better Will continue to monitor closely (6) Hypothyroidism: Code(s): E03.9 - Hypothyroidism, unspecified Status: Acute Assessment and Plan: TSH normal. Continue levothyroxine. (7) Obstructive sleep apnea: Code(s): G47.33 - Obstructive sleep apnea (adult) (pediatric) Status: Acute Assessment and Plan: Patient has not been compliant with treatment. (8) Paroxysmal atrial fibrillation: Code(s): I48.0 - Paroxysmal atrial fibrillation Status: Acute Assessment and Plan: EKG showing AFib with RVR on admisison. Continue with apixaban and metoprolol. (9) Insulin dependent diabetes mellitus: Status: Acute Assessment and Plan: A1c 6.9 The patient's blood glucose was reviewed on 10/03 Glucose better controlled Continue AccuCheks covering with sliding scale. Hypoglycemia protocol available as needed. Continue to monitor Subjective Date/time seen: 10/03/22 14:29 Interval history: 67yo male with dCHF, COPD, HTN and JUN here for altered mental status. No problems overnight. No n/v. Eating well. No CP or SOB. Exam Narrative: AF 98.5 125/71 76 18 95% ra Gen - NARD Chest - bibasilar crackles o/w clear CV - RRR S1/S2 with occasional extra beat Abd - Soft, obese, NT - Coats secured draining clear yellow urine Ext - 1+ pedal edema Psych - Nml mood and affect Skin - Warm and dry. Chronic venous stasis skin changes bilateral LE with scale Objective Data Vital Signs Vital Signs: Vital Signs - 24 hr 10/02/22 14:34 10/02/22 14:44 10/02/22 20:01 Temperature Pulse Rate 89 92 77 Respiratory Rate 16 16 18 Blood P
[2022-10-03 16:51] LABS: Glucose Point of Care 232 mg/dl (65-105)
[2022-10-03] MEDS: INSULIN ASPART (*BKC) 100 UNITS/ML SUB-Q (17:05)
[2022-10-03] MEDS: traZODone HCL 50 MG TABLET 150 MG PO (20:39)
[2022-10-03] MEDS: PRAVASTATIN SODIUM 20 MG TABLET 40 MG PO (20:41)
[2022-10-03 22:13] LABS: Glucose Point of Care 184 mg/dl (65-105)
[2022-10-04] VITALS (12 sets, daily range): BP systolic 114–121; BP diastolic 62–67; PULSE 58–85; RESP 12–18; TEMP 35.9–36.5; O2SAT 96–99
--- NOTE | 2022-10-04 02:21 | PCRCNOTE ---
Pt did not want to be awakened for his 0200 tx, tx will resume at 0800
[2022-10-04] MEDS: MEROPENEM 1 GM/NS 100 ML 1 GM/100 ML BAG IVPB (05:31)
[2022-10-04] MEDS: LEVOTHYROXINE SODIUM 100 MCG TABLET PO (05:32)
[2022-10-04 06:52] LABS: Hemoglobin 12.2 g/dL (14.0-18.0); Mean Corpuscular HGB Conc 30.5 g/dl (32-36); Mean Corpuscular Hemoglobin 26.6 pg (26-34); Mean Corpuscular Volume 87.3 fl (80-100); Mean Platelet Volume 9.7 fl (7.4-10.4); Platelet Count Result 235 k/mm3 (150-375); Red Blood Count 4.58 M/mm3 (4.6-6.20); Red Cell Distribution Width 14.3 % (11.5-14.5); White Blood Count 6.9 K/mm3 (4.5-10.0)
[2022-10-04 07:08] LABS: Anion Gap 3 mmol/L (8-16); Blood Urea Nitrogen 19 mg/dL (9-20); Calcium 9.8 mg/dL (8.4-10.2); Carbon Dioxide 31 mmol/L (22-30); Chloride 96 mmol/L (98-107); Estimated CRCL calculation 107 ml/min; Estimated Glomerular Filt Rate > 60; Glucose 148 mg/dL (65-110); Potassium 3.8 mmol/L (3.4-5.0); Sodium 130 mmol/L (137-145)
[2022-10-04 07:29] LABS: Glucose Point of Care 162 mg/dl (65-105)
[2022-10-04] MEDS: FAMOTIDINE 20 MG TABLET PO (08:32)
[2022-10-04] MEDS: GABAPENTIN 300 MG CAPSULE PO ×4 (08:32→20:25)
[2022-10-04] MEDS: THERAPEUTIC MULTIVITAMINS/MINERALS TAB (*BKC) 1 TABLET PO (08:32)
[2022-10-04] MEDS: FUROSEMIDE 20 MG TABLET 60 MG PO (08:32)
[2022-10-04] MEDS: METOPROLOL SUCCINATE EXT REL 100 MG TABCR PO (08:32)
[2022-10-04] MEDS: buPROPion HCL XL (24 HR) 150 MG TABCR 300 MG PO (08:33)
[2022-10-04] MEDS: APIXABAN 5 MG TABLET PO ×2 (08:33→20:25)
[2022-10-04] MEDS: ASPIRIN 81 MG ENTERIC TABLET PO (08:33)
[2022-10-04] MEDS: IPRATROPIUM BR 0.02% INH SOLN 0.5 MG/2.5 ML VIAL INHALATION ×3 (09:04→21:13)
[2022-10-04] MEDS: ALBUTEROL SULFATE NEB 2.5 MG/3 ML INH INHALATION ×3 (09:04→21:12)
[2022-10-04 11:56] LABS: Glucose Point of Care 221 mg/dl (65-105)
[2022-10-04] MEDS: MAGNESIUM OXIDE 400 MG TABLET PO (12:12)
[2022-10-04] MEDS: INSULIN ASPART (*BKC) 100 UNITS/ML SUB-Q ×2 (12:12→17:01)
[2022-10-04] MEDS: ERTAPENEM 1 GM/NS 50 ML 1 GM/50 ML BAG IVPB (12:19)
[2022-10-04 16:39] LABS: Glucose Point of Care 234 mg/dl (65-105)
--- NOTE | 2022-10-04 17:12 | PM.IMPN ---
Progress Note: A&P Assessment and Plan (1) Sepsis: Qualifiers: Sepsis acute organ dysfunction status: with acute organ dysfunction Sepsis type: sepsis due to unspecified organism Severe sepsis acute organ dysfunction type: encephalopathy Severe sepsis shock status: without septic shock Qualified Code(s): A41.9 - Sepsis, unspecified organism; R65.20 - Severe sepsis without septic shock; G93.40 - Encephalopathy, unspecified Code(s): A41.9 - Sepsis, unspecified organism Status: Acute Assessment and Plan: Patient with sepsis present admission with tachycardia, mildly elevated white count and hypotension. Related to complicated UTI. Blood cultures have returned positive with ESBL E coli in the aerobic and anaerobic bottle. Urine culture growing ESBL E coli. Clinically improved. He was on Rocephin but changed to meropenem given his soft blood pressures. Narrowed to ertapenem. PICC line ordered. Discharge once IV abx arranged. (2) Complicated urinary tract infection: Code(s): N39.0 - Urinary tract infection, site not specified Status: Acute Assessment and Plan: As above. Patient has chronic indwelling Coats catheter. (3) Diastolic congestive heart failure: Code(s): I50.30 - Unspecified diastolic (congestive) heart failure Status: Acute Assessment and Plan: Chest x-ray shows diffuse lung disease consistent with pulmonary edema versus pneumonia. BNP was not drawn. Echocardiogram in May was technically difficult which showed EF of 60-65% and biatrial enlargement. No significant valvular disease. Diastolic function is indeterminate. Lasix IV x1 was given. He was started on his oral home Lasix but held given his soft blood pressure. CXR reviewed showing mild pulmonary edema so Lasix IV once and resumed home Lasix. Lungs clear and on room air. Continue to monitor. (4) Chronic obstructive pulmonary disease: Code(s): J44.9 - Chronic obstructive pulmonary disease, unspecified Status: Acute Assessment and Plan: Stable. No wheezing. Not on chronic inhalers. Nebulizer treatments available as needed. (5) Hypertension: Code(s): I10 - Essential (primary) hypertension Status: Acute Assessment and Plan: Patient's blood pressure was reviewed on 10/04 Blood pressure better Will continue to monitor closely (6) Hypothyroidism: Code(s): E03.9 - Hypothyroidism, unspecified Status: Acute Assessment and Plan: TSH normal. Continue levothyroxine. (7) Obstructive sleep apnea: Code(s): G47.33 - Obstructive sleep apnea (adult) (pediatric) Status: Acute Assessment and Plan: Patient has not been compliant with treatment. (8) Paroxysmal atrial fibrillation: Code(s): I48.0 - Paroxysmal atrial fibrillation Status: Acute Assessment and Plan: EKG showing AFib with RVR on admisison. Continue with apixaban and metoprolol. (9) Insulin dependent diabetes mellitus: Status: Acute Assessment and Plan: A1c 6.9 The patient's blood glucose was reviewed on 10/04 Glucose elevated at times Continue AccuCheks covering with sliding scale. Hypoglycemia protocol available as needed. Continue to monitor Subjective Date/time seen: 10/04/22 17:12 Interval history: 67yo male with dCHF, COPD, HTN and JUN here for altered mental status. Feels well today. No CP or SOB. Exam Narrative: AF 96.6 119/62 74 18 97% ra Gen - NARD Chest - CTa bilaterally nml RR CV - RRR S1/S2 Abd - Soft, obese, NT - Coats secured draining clear yellow urine Ext - trace pedal edema Psych - Nml mood and affect Skin - Warm and dry. Chronic venous stasis skin changes bilateral LE with scale Objective Data Vital Signs Vital Signs: Vital Signs - 24 hr 10/03/22 19:56 10/03/22 20:03 10/03/22 20:00 Temperature Pulse Rate 73 Respiratory Rate 18 B
[2022-10-04] MEDS: PRAVASTATIN SODIUM 20 MG TABLET 40 MG PO (20:26)
[2022-10-04] MEDS: traZODone HCL 50 MG TABLET 150 MG PO (20:27)
[2022-10-04 20:58] LABS: Glucose Point of Care 169 mg/dl (65-105)
[2022-10-05] VITALS (8 sets, daily range): BP systolic 110–124; BP diastolic 63–68; PULSE 62–80; RESP 12–20; TEMP 36.1–36.5; O2SAT 93–100
[2022-10-05] MEDS: ALBUTEROL SULFATE NEB 2.5 MG/3 ML INH INHALATION ×2 (02:13→13:58)
[2022-10-05] MEDS: IPRATROPIUM BR 0.02% INH SOLN 0.5 MG/2.5 ML VIAL INHALATION ×2 (02:14→13:58)
[2022-10-05] MEDS: LEVOTHYROXINE SODIUM 100 MCG TABLET PO (05:51)
[2022-10-05 07:43] LABS: Glucose Point of Care 133 mg/dl (65-105)
--- NOTE | 2022-10-05 07:47 | PCRCNOTE ---
Pt. states he does not want a breathing treatment because he's being discharged.
[2022-10-05] MEDS: APIXABAN 5 MG TABLET PO ×2 (09:00→21:45)
[2022-10-05] MEDS: FAMOTIDINE 20 MG TABLET PO (09:00)
[2022-10-05] MEDS: buPROPion HCL XL (24 HR) 150 MG TABCR 300 MG PO (09:00)
[2022-10-05] MEDS: GABAPENTIN 300 MG CAPSULE PO ×4 (09:00→21:42)
[2022-10-05] MEDS: METOPROLOL SUCCINATE EXT REL 100 MG TABCR PO (09:00)
[2022-10-05] MEDS: FUROSEMIDE 20 MG TABLET 60 MG PO (09:00)
[2022-10-05] MEDS: THERAPEUTIC MULTIVITAMINS/MINERALS TAB (*BKC) 1 TABLET PO (09:01)
[2022-10-05] MEDS: ASPIRIN 81 MG ENTERIC TABLET PO (09:01)
[2022-10-05 11:34] LABS: Glucose Point of Care 153 mg/dl (65-105)
--- NOTE | 2022-10-05 13:17 | PM.IMPN ---
Progress Note: A&P Assessment and Plan (1) Sepsis: Qualifiers: Sepsis acute organ dysfunction status: with acute organ dysfunction Sepsis type: sepsis due to unspecified organism Severe sepsis acute organ dysfunction type: encephalopathy Severe sepsis shock status: without septic shock Qualified Code(s): A41.9 - Sepsis, unspecified organism; R65.20 - Severe sepsis without septic shock; G93.40 - Encephalopathy, unspecified Code(s): A41.9 - Sepsis, unspecified organism Status: Acute Assessment and Plan: Patient with sepsis present admission with tachycardia, mildly elevated white count and hypotension. Related to complicated UTI. Blood cultures have returned positive with ESBL E coli in the aerobic and anaerobic bottle. Urine culture growing ESBL E coli. Clinically improved. He was on Rocephin but changed to meropenem given his soft blood pressures. Narrowed to ertapenem. PICC line ordered. Discharge once IV abx arranged. (2) Complicated urinary tract infection: Code(s): N39.0 - Urinary tract infection, site not specified Status: Acute Assessment and Plan: As above. Patient has chronic indwelling Coats catheter. (3) Diastolic congestive heart failure: Code(s): I50.30 - Unspecified diastolic (congestive) heart failure Status: Acute Assessment and Plan: Chest x-ray shows diffuse lung disease consistent with pulmonary edema versus pneumonia. BNP was not drawn. Echocardiogram in May was technically difficult which showed EF of 60-65% and biatrial enlargement. No significant valvular disease. Diastolic function is indeterminate. Lasix IV x1 was given. He was started on his oral home Lasix but held given his soft blood pressure. CXR reviewed showing mild pulmonary edema so Lasix IV once and resumed home Lasix. Lungs clear and on room air. Continue to monitor. (4) Chronic obstructive pulmonary disease: Code(s): J44.9 - Chronic obstructive pulmonary disease, unspecified Status: Acute Assessment and Plan: Stable. No wheezing. Not on chronic inhalers. Nebulizer treatments available as needed. (5) Hypertension: Code(s): I10 - Essential (primary) hypertension Status: Acute Assessment and Plan: Patient's blood pressure was reviewed on 10/04 Blood pressure better Will continue to monitor closely (6) Hypothyroidism: Code(s): E03.9 - Hypothyroidism, unspecified Status: Acute Assessment and Plan: TSH normal. Continue levothyroxine. (7) Obstructive sleep apnea: Code(s): G47.33 - Obstructive sleep apnea (adult) (pediatric) Status: Acute Assessment and Plan: Patient has not been compliant with treatment. (8) Paroxysmal atrial fibrillation: Code(s): I48.0 - Paroxysmal atrial fibrillation Status: Acute Assessment and Plan: EKG showing AFib with RVR on admisison. Continue with apixaban and metoprolol. (9) Insulin dependent diabetes mellitus: Status: Acute Assessment and Plan: A1c 6.9 The patient's blood glucose was reviewed on 10/04 Glucose elevated at times Continue AccuCheks covering with sliding scale. Hypoglycemia protocol available as needed. Continue to monitor Subjective Date/time seen: 10/05/22 13:17 Interval history: no complaints Exam Narrative: AF 96.6 119/62 74 18 97% ra Gen - NARD Chest - CTa bilaterally nml RR CV - RRR S1/S2 Abd - Soft, obese, NT - Coats secured draining clear yellow urine Ext - trace pedal edema Psych - Nml mood and affect Skin - Warm and dry. Chronic venous stasis skin changes bilateral LE with scale Objective Data Vital Signs Vital Signs: Vital Signs - 24 hr 10/04/22 14:30 10/04/22 14:43 10/04/22 14:00 Temperature 96.6 F L Pulse Rate 70 74 69 Respiratory Rate 18 18 12 Blood Pressure 119/62 Pulse Oximetry 97 Oxygen Delivery 10/04/22 20
[2022-10-05] MEDS: MAGNESIUM OXIDE 400 MG TABLET PO (14:27)
[2022-10-05] MEDS: ERTAPENEM 1 GM/NS 50 ML 1 GM/50 ML BAG IVPB (14:27)
[2022-10-05 16:47] LABS: Glucose Point of Care 195 mg/dl (65-105)
[2022-10-05] MEDS: PRAVASTATIN SODIUM 20 MG TABLET 40 MG PO (21:42)
[2022-10-05] MEDS: traZODone HCL 50 MG TABLET 150 MG PO (21:42)
[2022-10-05 22:12] LABS: Glucose Point of Care 178 mg/dl (65-105)
[2022-10-06] MEDS: LEVOTHYROXINE SODIUM 100 MCG TABLET PO (05:28)
[2022-10-06 06:00] VITALS: BP 112/62; PULSE 76; RESP 18; TEMP 36.6; O2SAT 100
[2022-10-06 08:12] LABS: Glucose Point of Care 158 mg/dl (65-105)
[2022-10-06 08:34] VITALS: PULSE 78
[2022-10-06] MEDS: FAMOTIDINE 20 MG TABLET PO (08:34)
[2022-10-06] MEDS: THERAPEUTIC MULTIVITAMINS/MINERALS TAB (*BKC) 1 TABLET PO (08:34)
[2022-10-06] MEDS: GABAPENTIN 300 MG CAPSULE PO ×2 (08:34→12:31)
[2022-10-06] MEDS: ASPIRIN 81 MG ENTERIC TABLET PO (08:34)
[2022-10-06] MEDS: APIXABAN 5 MG TABLET PO (08:34)
[2022-10-06] MEDS: buPROPion HCL XL (24 HR) 150 MG TABCR 300 MG PO (08:34)
[2022-10-06] MEDS: FUROSEMIDE 20 MG TABLET 60 MG PO (08:34)
[2022-10-06] MEDS: METOPROLOL SUCCINATE EXT REL 100 MG TABCR PO (08:34)
[2022-10-06] MEDS: ALBUTEROL SULFATE NEB 2.5 MG/3 ML INH INHALATION (08:48)
[2022-10-06] MEDS: IPRATROPIUM BR 0.02% INH SOLN 0.5 MG/2.5 ML VIAL INHALATION (08:48)
[2022-10-06 08:49] VITALS: PULSE 88; RESP 18
[2022-10-06 08:52] VITALS: O2SAT 95
[2022-10-06 09:02] VITALS: PULSE 84; RESP 18
--- NOTE | 2022-10-06 11:04 | PM.DS ---
DS: Admitting Diagnosis Discharge Date October 06, 2022 Admitting Diagnosis UTI , sepsis present admission DS: Discharge Diagnosis Discharge Diagnosis (1) Sepsis: Qualifiers: Sepsis acute organ dysfunction status: with acute organ dysfunction Sepsis type: sepsis due to unspecified organism Severe sepsis acute organ dysfunction type: encephalopathy Severe sepsis shock status: without septic shock Qualified Code(s): A41.9 - Sepsis, unspecified organism; R65.20 - Severe sepsis without septic shock; G93.40 - Encephalopathy, unspecified Code(s): A41.9 - Sepsis, unspecified organism Status: Acute Assessment and Plan: Patient with sepsis present admission with tachycardia, mildly elevated white count and hypotension. Related to complicated UTI. Blood cultures have returned positive with ESBL E coli in the aerobic and anaerobic bottle. Urine culture growing ESBL E coli. Clinically improved. He was on Rocephin but changed to meropenem given his soft blood pressures. Narrowed to ertapenem. PICC line ordered. Discharge once IV abx arranged. (2) Complicated urinary tract infection: Code(s): N39.0 - Urinary tract infection, site not specified Status: Acute Assessment and Plan: As above. Patient has chronic indwelling Coats catheter. (3) Diastolic congestive heart failure: Code(s): I50.30 - Unspecified diastolic (congestive) heart failure Status: Acute Assessment and Plan: Chest x-ray shows diffuse lung disease consistent with pulmonary edema versus pneumonia. BNP was not drawn. Echocardiogram in May was technically difficult which showed EF of 60-65% and biatrial enlargement. No significant valvular disease. Diastolic function is indeterminate. Lasix IV x1 was given. He was started on his oral home Lasix but held given his soft blood pressure. CXR reviewed showing mild pulmonary edema so Lasix IV once and resumed home Lasix. Lungs clear and on room air. Continue to monitor. (4) Chronic obstructive pulmonary disease: Code(s): J44.9 - Chronic obstructive pulmonary disease, unspecified Status: Acute Assessment and Plan: Stable. No wheezing. Not on chronic inhalers. Nebulizer treatments available as needed. (5) Hypertension: Code(s): I10 - Essential (primary) hypertension Status: Acute Assessment and Plan: Patient's blood pressure was reviewed on 10/04 Blood pressure better Will continue to monitor closely (6) Hypothyroidism: Code(s): E03.9 - Hypothyroidism, unspecified Status: Acute Assessment and Plan: TSH normal. Continue levothyroxine. (7) Obstructive sleep apnea: Code(s): G47.33 - Obstructive sleep apnea (adult) (pediatric) Status: Acute Assessment and Plan: Patient has not been compliant with treatment. (8) Paroxysmal atrial fibrillation: Code(s): I48.0 - Paroxysmal atrial fibrillation Status: Acute Assessment and Plan: EKG showing AFib with RVR on admisison. Continue with apixaban and metoprolol. (9) Insulin dependent diabetes mellitus: Status: Acute Assessment and Plan: A1c 6.9 The patient's blood glucose was reviewed on 10/04 Glucose elevated at times Continue AccuCheks covering with sliding scale. Hypoglycemia protocol available as needed. Continue to monitor DS: Summary Hospital Course Hospital Course: Patient is a 67-year-old gentleman came in with sepsis and found have urinary tract infection. Cultures grew ESBL started on meropenem. Cultures were also sensitive to Bactrim. Patient is doing much better after being on ertapenem for several days. Spoke with pharmacist and he can be discharged on Bactrim. Since he did have positive blood culture will treat him with double strength Bactrim 2 tabs b.i.d.. Otherwise patient is doing his normal activities and feels comfortable for discharge. Time Spent w
[2022-10-06] MEDS: MAGNESIUM OXIDE 400 MG TABLET PO (11:28)
[2022-10-06] MEDS: SULFAMETHOXAZOLE/TRIMETHOPRIM 800/160 MG DS TABLET 2 TAB PO (11:28)
[2022-10-06 11:57] LABS: Glucose Point of Care 275 mg/dl (65-105)
[2022-10-06] MEDS: INSULIN ASPART (*BKC) 100 UNITS/ML SUB-Q (12:31)
[2022-10-06 14:00] VITALS: BP 117/68; PULSE 79; RESP 18; TEMP 36.8; O2SAT 97
[2022-10-06 15:17] LABS: SARS-CoV-2 RNA PCR Negative (Negative)
[2022-10-06 17:20] LABS: Glucose Point of Care 230 mg/dl (65-105)
== END 2022-10-06 18:00 | DRG 872 ==
LOC: ANHED 12:03 → ANHIMU 15:37 → ANH3MEDSUR 09-30 20:13
PROVIDERS: Emergency Medicine; Internal Medicine; Nurse Practitioner; Admitting Provider Internal Medicine; Emergency Provider Emergency Medicine; PCP Internal Medicine; Visit Provider Chiropractor
DX: Z16.12 Extended spectrum beta lactamase (ESBL) resistance; N39.0 Urinary tract infection, site not specified; A41.51 Sepsis due to Escherichia coli [E. coli]; I50.30 Unspecified diastolic (congestive) heart failure; G93.40 Encephalopathy, unspecified; R65.20 Severe sepsis without septic shock; B96.20 Unspecified Escherichia coli [E. coli] as the cause of diseases classified elsewhere; E03.9 Hypothyroidism, unspecified; E11.42 Type 2 diabetes mellitus with diabetic polyneuropathy; E78.5 Hyperlipidemia, unspecified; J44.9 Chronic obstructive pulmonary disease, unspecified; G47.33 Obstructive sleep apnea (adult) (pediatric); I11.0 Hypertensive heart disease with heart failure; I48.0 Paroxysmal atrial fibrillation; K21.9 Gastro-esophageal reflux disease without esophagitis; Z20.822 Contact with and (suspected) exposure to COVID-19; Z90.49 Acquired absence of other specified parts of digestive tract; Z79.4 Long term (current) use of insulin; Z91.199 Patient's noncompliance with other medical treatment and regimen due to unspecified reason; Z98.49 Cataract extraction status, unspecified eye; Z66 Do not resuscitate; Z87.891 Personal history of nicotine dependence
CPT/HCPCS: 36415; 71045; 80048; 80053; 80069; 81001; 82948; 83036; 83605; 83735; 84443; 85025; 85027; 85610; 85730; 87040; 87077; 87086; 87088; 87186; 87635; 93005; 94640; 96361; 96365; 96366; 96367; 96375; 99285; A9270; G0378; G0379; J0456; J0696; J1335; J1815; J1940; J2185; J3010; J7030

== ENCOUNTER 2023-03-10 10:27 | Inpatient (IN) | payer MEDICARE, MEDICAID, SELFPAY ==
[2023-03-10] VITALS (33 sets, daily range): BP systolic 99–119; BP diastolic 57–82; PULSE 62–109; RESP 12–22; TEMP 36.4–36.7; O2SAT 94–100; BMI 38.8
--- NOTE | ~2023-03-10 | XR_ITS ---
EXAMINATION: XR chest 1V portable DATE: 03/10/2023 12:38 INDICATION: Sepsis. Weakness. TECHNIQUE: A single frontal view of the chest was obtained. COMPARISON: Chest single view 10/02/2022, CT abdomen and pelvis 06/23/2022 FINDINGS: There is a diffuse interstitial pattern in the lungs, consistent mild pulmonary edema. No p leural effusion or pneumothorax. Cardiomegaly is noted. IMPRESSION: 1. Mild pulmonary edema. 2. Cardiomegaly. Reviewed, dictated and finalized at location A. W MACHINE SETTER
--- NOTE | ~2023-03-10 | XR_ITS ---
EXAMINATION: XR wrist LT min 3V DATE: 03/10/2023 12:38 INDICATION: Left wrist pain. TECHNIQUE: 4 views of left wrist were obtained. COMPARISON: Left wrist radiograph 08/18/2014 FINDINGS: Bone alignment is normal. No fracture. There is mild osteoarthritis of triscaphe joint and first carpometacarpal joint. IMPRESSION: 1. Mild polyarticular osteoarthritis. Reviewed, dictated and finalized at location A. ROPOLOGIST PHYSICAL
--- NOTE | ~2023-03-10 | CT_ITS ---
EXAMINATION: CT brain wo con DATE: 03/10/2023 13:57 INDICATION: Altered mental state. Increased weakness. TECHNIQUE: Computed tomography (CT) of the head was performed without intravenous contrast. The mA wa s adjusted according to patient size. Iterative reconstruction technique was employed. Exam dose: 83 2.33 mGy-cm total exam DLP. COMPARISON: 09/09/2022 CT brain FINDINGS: There is prominent central and cortical cerebral volume loss. Mild to moderate cerebellar v olume loss. Vertebral, basilar and bilateral carotid siphon internal carotid artery calcifications. There is nons pecific diminished attenuation of the cerebral white matter, likely due to chronic small vessel ische ver[place] changes. There are some prominent calcifications along the cerebral falx. No intracranial mass lesion or hemorrhage or cerebrovascular accident, midline shift or mass effect i s evident. No subdural or epidural hematoma. The orbital contents are unremarkable. There is a fluid level in the right sphenoid sinus. The paranasal sinuses and mastoid air cells are o therwise unremarkable. No fracture or bone destruction of the cranial vault. IMPRESSION: Cerebral and cerebellar volume loss Cerebral atherosclerosis and chronic small vessel ischemic changes of the cerebral white matter No acute intracranial finding Fluid level, right sphenoid sinus Reviewed, dictated and finalized at Location A. Reviewed, dictated and finalized at location L. ANGE ADMINISTRATOR IMPRESSION: Cerebral and cerebellar volume loss Cerebral atherosclerosis and chronic small vessel ischemic changes of the cereb ral white matter No acute intracranial finding Fluid level, right sphenoid sinus
--- NOTE | 2023-03-10 11:17 | ECG_ITS ---
Measurements Intervals [place] Rate: 65 P: NM: 0 QRS: 75 QRSD: 117 T: 45 QT: 427 QTc: 447 Interpretive Statements ATRIAL FIBRILLATION INTRAVENTRICULAR CONDUCTION DELAY ANTEROSEPTAL INFARCT, AGE INDETERMINATE BASELINE ARTIFACT- I, V1, V3 ABNORMAL ECG COMPARED TO ECG 09/29/2022 11:40:25 HEART RATE HAS DECREASED INTRAVENTRICULAR CONDUCTION DELAY NOW PRESENT Electronically Signed On 03-10-2023 12:55:31 HIGH [employer] KETTLE OPERATOR by Silver Torres D.O.
[2023-03-10 11:31] LABS: Basophils Percent Auto 0.6 % (0.2-1.2); Eosinophils Absolute Auto 0.9 K/mm3 (0-0.3); Eosinophils Percent Auto 13.6 % (0-4.4); Hematocrit 45.5 % (42.0-52.0); Hemoglobin 13.7 g/dL (14.0-18.0); Immature Granulocyte Absolute 0.03 K/mm3 (0.00-0.031); Immature Granulocyte Percent A 0.4 % (0-0.5); Lymphocytes Absolute Auto 0.91 K/mm3 (0.9-3.2); Lymphocytes Percent Auto 13.3 % (18.3-44.2); Mean Corpuscular HGB Conc 30.1 g/dl (32-36); Mean Corpuscular Hemoglobin 27.5 pg (26-34); Mean Corpuscular Volume 91.2 fl (80-100); Mean Platelet Volume 10.2 fl (7.4-10.4); Monocytes Absolute Auto 0.7 K/mm3 (0.1-0.6); Monocytes Percent Auto 9.9 % (2.6-8.5); Neutrophils Absolute Auto 4.3 K/mm3 (1.3-6.7); Neutrophils Percent Auto 62.2 % (45.5-73.1); Platelet Count Result 232 k/mm3 (150-375); Red Blood Count 4.99 M/mm3 (4.6-6.20); Red Cell Distribution Width 15.7 % (11.5-14.5); White Blood Count 6.9 K/mm3 (4.5-10.0)
[2023-03-10 11:41] LABS: Alanine Aminotransferase 12 U/L (6-50); Albumin Level 3.4 g/dL (3.5-5.1); Alkaline Phosphatase 66 U/L (38-126); Anion Gap 6 mmol/L (8-16); Aspartate Amino Transferase 19 U/L (17-59); Bilirubin,Total 0.8 mg/dL (0.2-1.3); Blood Urea Nitrogen 22 mg/dL (9-20); Calcium 9.5 mg/dL (8.4-10.2); Carbon Dioxide 30 mmol/L (22-30); Chloride 99 mmol/L (98-107); Estimated CRCL calculation 93 ml/min; Estimated Glomerular Filt Rate > 60; Glucose 177 mg/dL (65-110); Sodium 135 mmol/L (137-145)
[2023-03-10 11:42] LABS: INR 1.5; Prothrombin Time 18.8 Seconds (11.1-14.7)
[2023-03-10 11:44] LABS: Partial Thromboplastin Time 44.8 SECONDS (22.3-36.8)
--- NOTE | 2023-03-10 12:21 | ED.AMS ---
HPI - Altered Mental Status General Chief Complaint: Altered Mental Status Stated Complaint: ams Time Seen by Provider: 03/10/23 12:06 History of Present Illness HPI narrative: Patient is a 67-year-old male presenting with altered mental status. Patient is coming from a nursing facility where he was noted to be more confused than normal. He is reportedly A&O x4 at baseline. Today he is A&O x2. He was also noted to be more generally weak. His only complaint right now is left wrist pain. Denies pain elsewhere. No nausea or vomiting. Asking for ice chips. Related Data Home Medications Medication Instructions Recorded Confirmed gabapentin 300 mg capsule 300 mg PO QID 02/15/21 03/10/23 ipratropium 0.5 mg-albuterol 3 mg 3 ml inhalation Q4H PRN Wheezing 02/15/21 03/10/23 (2.5 mg base)/3 mL nebulization soln levothyroxine 100 mcg tablet 100 mcg PO DAILY 02/15/21 03/10/23 insulin NPH-regular 70-30 U-100 20 unit subcut HS 12/08/21 03/10/23 insulin 100 unit/mL subcutaneous pen (Novolin 70-30 FlexPen U-100 Insulin) pravastatin 40 mg tablet 40 mg PO HS 12/08/21 03/10/23 multivitamin with minerals-folic 1 tablet PO DAILY 03/02/22 03/10/23 acid 0.4 mg tablet furosemide 40 mg tablet 60 mg PO DAILY 06/23/22 03/10/23 hydrocodone 5 mg-acetaminophen 325 1 tablet PO Q6H PRN Pain (Scale 06/23/22 03/10/23 mg tablet Score 4-6) insulin NPH-regular 70-30 U-100 25 unit subcut QAM 06/23/22 03/10/23 insulin 100 unit/mL subcutaneous pen (Novolin 70-30 FlexPen U-100 Insulin) acetaminophen 325 mg capsule 650 mg PO Q4-6H 09/10/22 03/10/23 (Tylenol) bupropion HCl 300 mg 24 hr tablet, 300 mg PO QAM 09/10/22 03/10/23 extended release famotidine 20 mg tablet 20 mg PO DAILY ##0 09/10/22 03/10/23 sennosides 8.6 mg-docusate sodium 1 tablet PO BID PRN Constipation 09/10/22 03/10/23 50 mg tablet (Senna Plus) hydrocortisone 0.5 % topical cream 1 applic topical DAILY 09/29/22 03/10/23 silver sulfadiazine 1 % topical 1 applic topical DAILY 09/29/22 03/10/23 cream melatonin 5 mg tablet 5 mg PO HS 03/10/23 03/10/23 Allergies Allergy/AdvReac Type Severity Reaction Status Date / Time No Known Allergies Allergy Verified 09/29/22 13:26 Review of Systems Review of Systems: All systems reviewed & are unremarkable except as noted in HPI and below PMFSH Past Medical History Medical History Choledocholithiasis (05/2022) Chronic obstructive pulmonary disease Chronic venous insufficiency Depression Diastolic congestive heart failure Gastroesophageal reflux disease Hyperlipidemia Hypertension Hypothyroidism Insulin dependent diabetes mellitus Kidney stones Obstructive sleep apnea Non-compliant with CPAP. Paroxysmal atrial fibrillation Peripheral neuropathy Surgical History Surgical History History of appendectomy History of back surgery History of cataract extraction History of hemorrhoidectomy History of tonsillectomy and adenoidectomy Family History Family History Sibling Family history of obesity Hypertension Family history of diabetes mellitus in first degree relative Family history of heart disease in male family member before age 55 Patient's sister is in good health Patient's brother is Mother Family history of arthritis Family history of malignant neoplasm Patient's mother is Father Patient's father is Other Malignant neoplasm of prostate Unknown family medical history Social History Social History Social History: He resides at [facility]. He had 2 children Surrogate medical decision maker: Marlys Marrero, . Code status: Do not resuscitate. Smoking packs per day: 2 Smok
[2023-03-10] MEDS: SODIUM CHLORIDE 0.9% IV 1,000 ML 999 ML IV CONT (12:47)
[2023-03-10 13:07] LABS: Lactic Acid Reflex 2.2 mmol/L (0.7-2.0)
[2023-03-10 13:11] LABS: NT Pro B Type Natriuretic Pept 2800 pg/mL (19.9-100)
[2023-03-10 13:34] LABS: Influenza A QL RT-PCR Negative (Negative); Influenza B QL RT-PCR Negative (Negative); RSV RNA, RT-PCR Negative (Negative); SARS-CoV-2 RNA PCR Negative (Negative)
[2023-03-10 14:52] LABS: Appearance Urine Turbid (Clear); Bacteria Urine 4+ /hpf; Bilirubin Urine 1+ (Negative); Blood Urine 3+ (Negative); Color Urine Dark Yellow (Yellow); Glucose Urine UA Negative (Negative); Ketones Urine Negative (Negative); Leukocyte Esterase Ur 3+ LEU/UL (Negative); Need Manual Microscopic Reviewed; Nitrate Urine Positive (Negative); Protein Urine 1+ mg/dL (Negative); RBC Urine >100 /hpf (0-2); Specific Grav Ur 1.015 (1.001-1.035); Squamous Epithelial Cell Urine Few /hpf (Few); WBC Urine >100 /hpf; pH Urine 5.5 (5.0-9.0)
[2023-03-10 14:54] LABS: Add Urine Microscopic? YES
[2023-03-10] MEDS: ACETAMINOPHEN 500 MG TABLET 1000 MG PO (14:55)
[2023-03-10] MEDS: cefTRIAXone 2 GM/NS 100 ML 2 GM/100 ML BAG IVPB (15:18)
[2023-03-10 15:55] LABS: Reflex Lactic Acid Yes or No Add Lactic
--- NOTE | 2023-03-10 17:31 | ADMGEN ---
This patient, Taye Marrero Jr., was admitted to [facility] Surg Room 306-02. Patient/family oriented to hospital policies and general routines including ID bracelet, bed and alarms, visiting hours, pain management, procedures, bathroom and other care routines, personal items, smoking policy, room service/diet, and visiting hours. Information on how to activate the Rapid Response Team has been discussed. Patient/Family are encouraged to report perceived risks to care and to ask questions if they do not understand what they are told or what they should do.
--- NOTE | 2023-03-10 18:04 | PC.NURSE ---
unable to fully assess patient due to ranjith legs wrapped. Report from ED nurse stated that provider in ED did not want to take off wraps on legs due to seeing wound management today outpt, provider wants order for wound management to see pt.
[2023-03-10 18:09] LABS: Lactic Acid 1.1 mmol/L (0.7-2.0)
--- NOTE | 2023-03-10 18:20 | PC.NURSE ---
unable to confirm medication list due to the fact reports only say NH for [facility], no paperwork was brought up with the patient from ER. When calling ER to see where patient came from, ER staff unable to tell this nurse. This nurse is unable to find where patient is from to get medication list and unable to get ahold of POA due to number in chart goes to weird voicemail that says an application error has occurred, attempted to call number multiple times. charge nurse made aware.
--- NOTE | 2023-03-11 01:55 | PM.IMHP ---
H&P: HPI History of Present Illness Date/Time: 03/11/23 01:55 Chief Complaint: Increased weakness, confusion Narrative: 67-year-old male with a past medical history of paroxysmal atrial fibrillation, diastolic heart failure, insulin-dependent diabetes mellitus, hypothyroid, essential hypertension, untreated obstructive sleep apnea, chronic venous stasis dermatitis with wounds, chronic indwelling Coats catheter among other multiple cor morbidities who presented to the hospital from [facility] due to increased confusion and weakness. The patient is unable to provide any significant history. He denies any pain. He does not know why he was sent to the ER. He only complains that he is thirsty. He is oriented to his name only. He tells me his date of but cannot tell me his age. He will not eating gas as to what the month or year is. As a result all of the past medical history and history of present illness was obtained from ER records and past medical record review. As well as correction records. Review of Systems Review of Systems: ROS unobtainable: Yes unobtainable due to mental status PMFSH Past Medical History Medical History Choledocholithiasis (05/2022) Chronic obstructive pulmonary disease Chronic venous insufficiency Depression Diastolic congestive heart failure Gastroesophageal reflux disease Hyperlipidemia Hypertension Hypothyroidism Insulin dependent diabetes mellitus Kidney stones Obstructive sleep apnea Non-compliant with CPAP. Paroxysmal atrial fibrillation Peripheral neuropathy Surgical History Surgical History History of appendectomy History of back surgery History of cataract extraction History of hemorrhoidectomy History of tonsillectomy and adenoidectomy Family History Family History (Updated 03/11/23 @ 02:15 by Tiffanie Martinez DO) Sibling Family history of obesity Hypertension Family history of diabetes mellitus in first degree relative Family history of heart disease in male family member before age 55 Patient's sister is in good health Patient's brother is Mother Family history of arthritis Family history of malignant neoplasm Patient's mother is Father Patient's father is Other Malignant neoplasm of prostate Social History Social History (Updated 03/11/23 @ 02:20 by Tiffanie Martinez DO) Social History: He resides at [facility]. He had 2 children Surrogate medical decision maker: Marlys Marrero, . Code status: Do not resuscitate. (the patient's state form says full code but the patient's wants patient to be a DNR.) Smoking packs per day: 2 Smoking cigarettes per day: 40.0 Years smoked: 15 Smoking pack-years: 30.00 Smoking status: Former smoker Second hand tobacco smoke exposure: No Alcohol intake: never Substance use: never Substance use type: does not use Lack of Transportation: No Lack of Food: Never True Current Housing: I Have Housing Concerned About Future Housing: No Difficulty Paying Gas/Electric Bills: No Difficulty Paying for Meds: No Currently Unemployed: No Education: High School Diploma/GED Difficulty w/ Childcare or Family Care: No Living arrangements: correction Additional living arrangements comments: Resident at [facility]. to Marlys. They have 2 sons. 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 Spiritual care concerns: No Agree to blood products: Yes Meds Home Medications and Allergies Home Medications Medication Instructions Recorded Confirmed Type gabapentin 300 mg capsule 300 mg PO QID 02/15/21 03/10/23 History ipratropium 0.5 mg-albuterol 3 mg 3 ml inhalation Q4H PRN Wheezing 01/30
[2023-03-11] MEDS: HYDROcodone/acetaminophen (*CRX) 5-325 MG TABLET 1 TAB PO ×2 (05:26→12:18)
[2023-03-11] MEDS: LEVOTHYROXINE SODIUM 100 MCG TABLET PO (05:27)
[2023-03-11 06:00] VITALS: BP 136/77; PULSE 77; RESP 18; TEMP 36.1; O2SAT 97
[2023-03-11 06:26] LABS: Hematocrit 44.6 % (42.0-52.0); Hemoglobin 13.7 g/dL (14.0-18.0); Mean Corpuscular HGB Conc 30.7 g/dl (32-36); Mean Corpuscular Hemoglobin 27.3 pg (26-34); Mean Platelet Volume 9.7 fl (7.4-10.4); Platelet Count Result 233 k/mm3 (150-375); Red Blood Count 5.01 M/mm3 (4.6-6.20); Red Cell Distribution Width 15.4 % (11.5-14.5); White Blood Count 9.7 K/mm3 (4.5-10.0)
[2023-03-11 06:44] LABS: Anion Gap 9 mmol/L (8-16); Blood Urea Nitrogen 21 mg/dL (9-20); Calcium 9.4 mg/dL (8.4-10.2); Carbon Dioxide 24 mmol/L (22-30); Chloride 101 mmol/L (98-107); Estimated CRCL calculation 106 ml/min; Estimated Glomerular Filt Rate > 60; Glucose 156 mg/dL (65-110); Sodium 134 mmol/L (137-145)
[2023-03-11 07:59] LABS: Glucose Point of Care 171 mg/dl (65-105)
[2023-03-11 09:19] VITALS: PULSE 72
[2023-03-11] MEDS: FAMOTIDINE 20 MG TABLET PO (09:19)
[2023-03-11] MEDS: METOPROLOL SUCCINATE EXT REL 100 MG TABCR PO (09:19)
[2023-03-11] MEDS: buPROPion HCL XL (24 HR) 150 MG TABCR 300 MG PO (09:19)
[2023-03-11] MEDS: GABAPENTIN 300 MG CAPSULE PO ×4 (09:21→20:26)
[2023-03-11] MEDS: FUROSEMIDE 20 MG TABLET 60 MG PO (09:21)
[2023-03-11] MEDS: HYDROCORTISONE 1% 30 GM CREAM 1 APPLIC TOPICAL (09:22)
[2023-03-11] MEDS: APIXABAN 5 MG TABLET PO ×2 (09:22→20:26)
[2023-03-11] MEDS: THERAPEUTIC MULTIVITAMINS/MINERALS TAB (*BKC) 1 TABLET PO (09:22)
[2023-03-11] MEDS: ASPIRIN 81 MG ENTERIC TABLET PO (09:22)
[2023-03-11] MEDS: COLLAGENASE OINT 30 GM TUBE 1 APPLIC TOPICAL (09:24)
[2023-03-11] MEDS: INSULIN HUMAN ISOPHAN/REGULAR 70/30 (*BKC) 100 UNITS/ML 25 UNITS SUB-Q (09:28)
[2023-03-11 11:17] VITALS: BMI 38.7
[2023-03-11 11:31] LABS: Glucose Point of Care 142 mg/dl (65-105)
[2023-03-11] MEDS: MAGNESIUM OXIDE 400 MG TABLET PO (12:18)
[2023-03-11 14:00] VITALS: BP 129/81; PULSE 63; RESP 18; TEMP 36.2; O2SAT 95
--- NOTE | 2023-03-11 15:29 | PM.IMPN ---
Progress Note: A&P Assessment and Plan (1) Catheter-associated urinary tract infection: Qualifiers: Indwelling urinary catheter type: indwelling urethral catheter Encounter type: initial encounter Qualified Code(s): T83.511A - Infection and inflammatory reaction due to indwelling urethral catheter, initial encounter; N39.0 - Urinary tract infection, site not specified Code(s): T83.511A - Infection and inflammatory reaction due to indwelling urethral catheter, initial encounter; N39.0 - Urinary tract infection, site not specified Status: Acute Assessment and Plan: + CAUTI Unclear as to why he has chronic indwelling catheter. Urine Culture is pending. Hx of ESBL E.coli. Currently receiving Rocephin. Will continue until Urine culture has resulted. May require switch to Meropenem based on historical results. Blood cultures pending. (2) Altered mental status: Qualifiers: Altered mental status type: delirium Qualified Code(s): R41.0 - Disorientation, unspecified Code(s): R41.82 - Altered mental status, unspecified Status: Acute Assessment and Plan: Encephalopathy secondary to CAUTI. Confused at baseline, but it is increased. (3) Open wound of both lower extremities: Qualifiers: Encounter type: initial encounter Qualified Code(s): S81.801A - Unspecified open wound, right lower leg, initial encounter; S81.802A - Unspecified open wound, left lower leg, initial encounter Code(s): S81.801A - Unspecified open wound, right lower leg, initial encounter; S81.802A - Unspecified open wound, left lower leg, initial encounter Status: Chronic Assessment and Plan: Wound care was consulted and they evaluated pt today with recommendations for treatment. Wound care instructions are ordered. (4) Chronic anticoagulation: Code(s): Z79.01 - salvage determiner (current) use of anticoagulants Status: Chronic Assessment and Plan: Continue Eliquis 5 mg po Q12 hrs for his A-fib. (5) Indwelling catheter present on admission: Code(s): Z96.0 - Presence of urogenital implants Status: Chronic Assessment and Plan: Noted (6) A-fib: Qualifiers: Atrial fibrillation type: unspecified Qualified Code(s): I48.91 - Unspecified atrial fibrillation Code(s): I48.91 - Unspecified atrial fibrillation Status: Chronic Assessment and Plan: Continue home Beta Mary for rate control Continue anticoagulation with Eliquis (7) Insulin dependent diabetes mellitus: Status: Acute Assessment and Plan: Continue 70/30 in the AM and HS as ordered. Continue moderate dose SSI Continue Hypoglycemic protocol Continue Glucose checks AC and HS Continue Diabetic diet Time Spent With Patient Time with patient: 15 - 25 minutes Subjective Date/time seen: 03/11/23 1145 Interval history: This pt was examined at the bedside in interval assessment after being admitted to the hospital with a CAUTI from an indwelling urinary catheter that was present upon presentation to the ER. He is receiving IV abx of Rocephin and VSS. He remains acutely confused today and only knows his name. He keeps pointing to the window and asking if the car he sees in the parking lot is his. He resides at [facility], and was obviously brought here by EMS. He also continues to answer questions inappropriately and does not know why he has an indwelling urinary catheter that was present on admission. Historically he has a hx of E.coli ESBL and has required Meropenem. He will remain here until we have a result of Urine cx to determine need for prolonged IV abx. He is encephalopathic, and does not meet Sepsis criteria currently. Review of Systems Review of Systems: ROS unobtainable: Yes unobtainable due to mental status (+ Encephalopathy) Exam Narrative: CONSTITUTIONAL: Elderly, male pt without acute distr
[2023-03-11 16:45] LABS: Glucose Point of Care 180 mg/dl (65-105)
[2023-03-11] MEDS: cefTRIAXone 2 GM/NS 100 ML 2 GM/100 ML BAG IVPB (17:24)
[2023-03-11 20:00] VITALS: PULSE 69; RESP 18; O2SAT 94
[2023-03-11] MEDS: MELATONIN 5 MG TABLET PO (20:26)
[2023-03-11] MEDS: traZODone HCL 50 MG TABLET 150 MG PO (20:26)
[2023-03-11] MEDS: PRAVASTATIN SODIUM 20 MG TABLET 40 MG PO (20:26)
[2023-03-11 20:34] VITALS: BP 132/64; PULSE 69; RESP 18; TEMP 36.4; O2SAT 94
[2023-03-11 21:14] LABS: Glucose Point of Care 217 mg/dl (65-105)
[2023-03-11] MEDS: INSULIN HUMAN ISOPHAN/REGULAR 70/30 (*BKC) 100 UNITS/ML 20 UNITS SUB-Q (21:43)
[2023-03-11] MEDS: INSULIN ASPART (*BKC) 100 UNITS/ML SUB-Q (21:43)
[2023-03-12] MEDS: HYDROcodone/acetaminophen (*CRX) 5-325 MG TABLET 1 TAB PO (05:19)
[2023-03-12] MEDS: LEVOTHYROXINE SODIUM 100 MCG TABLET PO (05:37)
[2023-03-12 06:00] VITALS: BP 92/44; PULSE 61; RESP 18; TEMP 36.2; O2SAT 93
[2023-03-12 08:38] LABS: Glucose Point of Care 117 mg/dl (65-105)
[2023-03-12] MEDS: FUROSEMIDE 20 MG TABLET 60 MG PO (09:12)
[2023-03-12] MEDS: METOPROLOL SUCCINATE EXT REL 100 MG TABCR PO (09:13)
[2023-03-12] MEDS: THERAPEUTIC MULTIVITAMINS/MINERALS TAB (*BKC) 1 TABLET PO (09:13)
[2023-03-12] MEDS: GABAPENTIN 300 MG CAPSULE PO ×2 (09:13→12:57)
[2023-03-12] MEDS: buPROPion HCL XL (24 HR) 150 MG TABCR 300 MG PO (09:13)
[2023-03-12] MEDS: FAMOTIDINE 20 MG TABLET PO (09:13)
[2023-03-12] MEDS: APIXABAN 5 MG TABLET PO (09:13)
[2023-03-12] MEDS: ASPIRIN 81 MG ENTERIC TABLET PO (09:13)
[2023-03-12] MEDS: COLLAGENASE OINT 30 GM TUBE 1 APPLIC TOPICAL (09:13)
[2023-03-12] MEDS: HYDROCORTISONE 1% 30 GM CREAM 1 APPLIC TOPICAL (09:14)
[2023-03-12] MEDS: INSULIN HUMAN ISOPHAN/REGULAR 70/30 (*BKC) 100 UNITS/ML 25 UNITS SUB-Q (09:16)
--- NOTE | 2023-03-12 09:51 | PM.DS ---
DS: Admitting Diagnosis Discharge Date 03/12/23 Admitting Diagnosis UTI CHF PAF DS: Discharge Diagnosis Discharge Diagnosis (1) Catheter-associated urinary tract infection: Qualifiers: Indwelling urinary catheter type: indwelling urethral catheter Encounter type: initial encounter Qualified Code(s): T83.511A - Infection and inflammatory reaction due to indwelling urethral catheter, initial encounter; N39.0 - Urinary tract infection, site not specified Code(s): T83.511A - Infection and inflammatory reaction due to indwelling urethral catheter, initial encounter; N39.0 - Urinary tract infection, site not specified Status: Acute Assessment and Plan: + CAUTI Unclear as to why he has chronic indwelling catheter. Urine Culture is pending. Hx of ESBL E.coli. Currently receiving Rocephin. Will continue until Urine culture has resulted. May require switch to Meropenem based on historical results. Blood cultures pending. Date of discharge, 03/12/23: Urine culture complete with mixed [place] only and no UTI. He has received Rocephin during his admission and does not require further treatment for discharge. (2) Altered mental status: Qualifiers: Altered mental status type: delirium Qualified Code(s): R41.0 - Disorientation, unspecified Code(s): R41.82 - Altered mental status, unspecified Status: Acute Assessment and Plan: Encephalopathy secondary to CAUTI. Confused at baseline, but it is increased. Date of discharge, 03/12/23: Pt's orientation is waxing and waning and is improved today. He appears overall improved today. (3) Open wound of both lower extremities: Qualifiers: Encounter type: initial encounter Qualified Code(s): S81.801A - Unspecified open wound, right lower leg, initial encounter; S81.802A - Unspecified open wound, left lower leg, initial encounter Code(s): S81.801A - Unspecified open wound, right lower leg, initial encounter; S81.802A - Unspecified open wound, left lower leg, initial encounter Status: Chronic Assessment and Plan: Wound care was consulted and they evaluated pt today with recommendations for treatment. Wound care instructions are ordered. Date of discharge, 03/12/23: Left lower extremity with superficial venous stasis ulcerations. Patient was evaluated by care while was here, it is noted that there was no acute infection. All wounds are stasis and superficial. Orders received for cleansing daily with soap and water, and apply Aloe [place] clear antifungal barrier cream. May leave open to air if no active drainage and if there is active drainage regimen Kerlix. This will be continued for discharge. (4) Chronic anticoagulation: Code(s): Z79.01 - snf (current) use of anticoagulants Status: Chronic Assessment and Plan: Continue Eliquis 5 mg po Q12 hrs for his A-fib. Date of discharge, 03/12/23: Continue regimen. (5) Indwelling catheter present on admission: Code(s): Z96.0 - Presence of urogenital implants Status: Chronic Assessment and Plan: Noted Date of discharge, 03/12/23: Maintain with [facility] [place] [facility]. (6) A-fib: Qualifiers: Atrial fibrillation type: unspecified Qualified Code(s): I48.91 - Unspecified atrial fibrillation Code(s): I48.91 - Unspecified atrial fibrillation Status: Chronic Assessment and Plan: Continue home Beta Mary for rate control Continue anticoagulation with Eliquis Date of discharge, 03/12/23: Continue Beta blockade and Eliquis (7) Insulin dependent diabetes mellitus: Status: Chronic Assessment and Plan: Continue 70/30 in the AM and HS as ordered. Continue moderate dose SSI Continue Hypoglycemic protocol Continue Glucose checks AC and HS Continue Diabetic diet Date of discharge, 03/12/23: Continue home regimen upon discharge. DS: Summary Hospital Course Reason for hospitalizati
[2023-03-12 11:55] LABS: Glucose Point of Care 207 mg/dl (65-105)
[2023-03-12] MEDS: MAGNESIUM OXIDE 400 MG TABLET PO (12:58)
[2023-03-12] MEDS: INSULIN ASPART (*BKC) 100 UNITS/ML SUB-Q (12:58)
== END 2023-03-12 13:52 | DRG 948 ==
LOC: ANHED 13:35 → ANH3MEDSUR 17:09
PROVIDERS: Emergency Medicine; Internal Medicine; Admitting Provider Family Medicine; Emergency Provider Emergency Medicine; PCP Internal Medicine; Visit Provider Nurse Practitioner Adult Health
DX: R41.82 Altered mental status, unspecified (principal); I50.32 Chronic diastolic (congestive) heart failure; L97.829 Non-pressure chronic ulcer of other part of left lower leg with unspecified severity; L97.819 Non-pressure chronic ulcer of other part of right lower leg with unspecified severity; Z20.822 Contact with and (suspected) exposure to COVID-19; I48.0 Paroxysmal atrial fibrillation; J44.9 Chronic obstructive pulmonary disease, unspecified; I87.2 Venous insufficiency (chronic) (peripheral); E11.9 Type 2 diabetes mellitus without complications; E86.0 Dehydration; E03.9 Hypothyroidism, unspecified; G47.33 Obstructive sleep apnea (adult) (pediatric); K21.9 Gastro-esophageal reflux disease without esophagitis; G62.9 Polyneuropathy, unspecified; I10 Essential (primary) hypertension; E78.5 Hyperlipidemia, unspecified; Z79.01 Long term (current) use of anticoagulants; Z90.49 Acquired absence of other specified parts of digestive tract; Z98.49 Cataract extraction status, unspecified eye; Z87.891 Personal history of nicotine dependence; Z79.82 Long term (current) use of aspirin; Z79.4 Long term (current) use of insulin; Z66 Do not resuscitate
CPT/HCPCS: 36415; 70450; 71045; 73110; 80048; 80053; 81001; 82948; 83605; 83880; 85025; 85027; 85610; 85730; 87040; 87086; 87088; 87637; 93005; 96361; 96365; 99285; A9270; G0378; J0696; J1815; J7030

== ENCOUNTER 2023-05-10 07:51 | Inpatient (IN) | payer MEDICARE, MEDICAID, SELFPAY ==
[2023-05-10] VITALS (53 sets, daily range): BP systolic 58–184; BP diastolic 38–130; PULSE 83–175; RESP 14–30; TEMP 37.7–38.3; O2SAT 92–98; BMI 36.0
--- NOTE | ~2023-05-10 | US_ITS ---
EXAMINATION: US abdomen limited DATE: 05/11/2023 09:04 INDICATION: Cholelithiasis. TECHNIQUE: Multiple grayscale and Doppler ultrasound images of the abdomen were obtained. COMPARISON: CT abdomen and pelvis 05/10/2023 FINDINGS: The visualized portions of the head, body, and tail of the pancreas are normal. The liver i s normal without focal lesion. The gallbladder is distended and contains gallstones. No gallbladder w all thickening or sonographic Cervantes sign. The common duct is normal and measures 6 mm. IMPRESSION: 1. Cholelithiasis. Gallbladder distention may be secondary to fasting. Reviewed, dictated and finalized at location A.
--- NOTE | ~2023-05-10 | XR_ITS ---
Portable chest x-ray Comparison: 05/11/2023 Clinical History: Pulmonary edema Findings: Left-sided central venous line tip has been retracted to the superior left mediastinum. Qu estionable minimal bibasilar pulmonary edema. Cardiomediastinal silhouette is stable. Bones and soft tissues are unremarkable. Impression: Interval retraction of tip of left-sided central venous line to the upper left mediastinum. Repositio lamont back into the SVC should be considered. Possible minimal bibasilar pulmonary edema. Reviewed, dictated and finalized at location . Impression: Interval retraction of tip of left-sided central venous line to the upper left mediastinum. Repositioning back into the SVC should be considered. Possible minimal bibasilar pulmonary edema.
--- NOTE | ~2023-05-10 | XR_ITS ---
EXAMINATION: XR foot LT 2V DATE: 05/10/2023 20:54 INDICATION: Left foot wound. TECHNIQUE: 2 views of left foot were obtained. COMPARISON: None. FINDINGS: Bone alignment is normal. No fracture. There is diffuse osteopenia. There is darin and screw fixation of distal tibia. There is mild osteoarthritis of first metatarsophalangeal joint and some of the midfoot joints. IMPRESSION: 1. No evidence of osteomyelitis. Reviewed, dictated and finalized at location E.
--- NOTE | ~2023-05-10 | CT_ITS ---
CT head without contrast Indication: Altered mental status COMPARISON: 03/10/2023 Technique: Serial scans were obtained through the brain without the administration of contrast. Dose reduction technique was used on this scan by utilizing automated exposure control and iterative recon struction technique. The dose-length product (DLP) was 681.00 mGy-cm. Findings: There is no evidence of intracranial hemorrhage, mass lesion, or acute infarct. The ventri cles and subarachnoid spaces are dilated, consistent with mild atrophy. Low attenuation regions are seen within the periventricular white matter bilaterally, likely representing changes from chronic mi crovascular ischemic disease. There is no evidence of edema, mass effect or midline shift. The visu alized paranasal sinuses and mastoid air cells are clear. Impression: No intracranial hemorrhage, mass, or acute infarct. Atrophy and chronic white matter changes, as above. Reviewed, dictated and finalized at [facility]. Impression: No intracranial hemorrhage, mass, or acute infarct. Atrophy and chronic white matter changes, as above.
--- NOTE | ~2023-05-10 | MR_ITS ---
EXAMINATION: MR foot LT wo/w con DATE: 05/15/2023 12:26 INDICATION: Left foot wounds. Sepsis. TECHNIQUE: Magnetic resonance imaging (MRI) of the left foot was performed without intravenous contra st. Sequences included axial, sagittal and coronal T1-weighted FSE, sagittal fluid sensitive FSE STIR , and axial and coronal T2-weighted FS FSE, axial T1-weighted FS FSE and postcontrast axial, sagittal and coronal T1-weighted FS FSE. COMPARISON: Left foot radiographs dated 05/10/2023 FINDINGS: Bone alignment is normal. No fracture. There is an intramedullary darin and interlocking screws at the distal tibia which results in adjacent metallic magnetic field artifact which results in loss of fat saturation the immediately adjacent distal tibia and cephalad aspect of the talus. There is some viv ow edema and enhancement without definitive geographic loss of T1 marrow fat signal at the lateral si de of the posterior tuberosity of the calcaneus which underlies a deep ulceration. Review of prior ra diographs demonstrates loss of a well-defined cortical margin at this location which along with some reversible change to be consistent with early osteomyelitis remaining bone marrow signal the left alfonzo t is normal. There is heterotopic ossification along the deep deltoid ligament and loss of the normal ly more sharply defined striated pattern consistent with likely sequela of chronic sprain. The superf icial deltoid ligaments as well as the spring ligament complex are normal. The lateral stabilizing li gaments of the ankle appear normal. Mild polyarticular osteoarthritis at the left ankle and multiple joints in the left foot. Physiologic amount fluid in the joint spaces. Mild enthesopathy at the dista l Achilles tendon. The remaining flexor and extensor tendons of the foot and ankle appear normal. Dif fuse severe fatty atrophy of the intrinsic musculature of the foot which is suggestive of denervation change in the setting of diabetes. Subcutaneous edema prominently over the dorsum of the foot. No ab scess or other abnormal fluid collections. IMPRESSION: 1. Skin ulceration with underlying early osteomyelitis at the lateral aspect of the posterior tuberos ity of the calcaneus. Reviewed, dictated and finalized at location B. IMPRESSION: 1. Skin ulceration with underlying early osteomyelitis at the lateral aspect of the posterior tuberosity of the calcaneus.
--- NOTE | ~2023-05-10 | XR_ITS ---
EXAMINATION: XR heel LT min 2V DATE: 05/10/2023 20:54 INDICATION: Left heel wound. TECHNIQUE: 2 views of left calcaneus were obtained. COMPARISON: None. FINDINGS: Bone alignment is normal. No fracture. There is darin and screw fixation of distal tibia. The re is mild midfoot osteoarthritis. IMPRESSION: 1. No evidence of osteomyelitis. Reviewed, dictated and finalized at location E.
--- NOTE | ~2023-05-10 | XR_ITS ---
Portable chest x-ray Comparison: 05/10/2023 Clinical History: Line placement Findings: Left-sided central venous line is in satisfactory position. There is mild patchy haziness throughout the lungs. No pleural effusion or pneumothorax. Cardiomediastinal silhouette is stable. B ones and soft tissues are unremarkable. Impression: Support line placements, as above. Mild patchy pulmonary haziness, nonspecific. Correlate for mild pulmonary edema versus infection. Reviewed, dictated and finalized at location . Impression: Support line placements, as above. Mild patchy pulmonary haziness, nonspecific. Correlate for mild pulmonary edema versus infection.
--- NOTE | ~2023-05-10 | XR_ITS ---
EXAMINATION: XR chest PICC line Exam Date/Time: 05/16/2023 16:25 CDT HISTORY: PICC Comparison: 05/12/2023. RESULT: Lines, tubes, and devices: Interval left IJ central line removal. New right upper extremity PICC ter minating in the distal SVC. Lungs and pleura: Moderate diffuse airspace disease with indistinct vessels. No focal consolidation, pleural effusion, or pneumothorax. Cardiomediastinal silhouette: Stable. Other: No acute osseous or upper abdominal finding. IMPRESSION: Right upper extremity PICC, in good position. Moderate pulmonary edema. Infection is not excluded. Reviewed, dictated and finalized at location K. IMPRESSION: Right upper extremity PICC, in good position. Moderate pulmonary edema. Infecti on is not excluded.
--- NOTE | ~2023-05-10 | CT_ITS ---
EXAMINATION: CT abdomen pelvis w con DATE: 05/10/2023 15:58 INDICATION: Suprapubic pain. TECHNIQUE: Computed tomography (CT) of the abdomen and pelvis was performed with 100 mL Omnipaque 350 intravenous contrast. Automated exposure control and iterative reconstruction technique were employe d. The dose-length product was 2753.82 mGy-cm. COMPARISON: CT pelvis 09/09/2022 FINDINGS: The visualized portions of the lung bases demonstrate mild atelectasis. There is septal thi ckening in the lungs, consistent with mild pulmonary edema. No pleural effusion. Cardiomegaly is note d. No pericardial effusion. Pectus excavatum is noted. There is a small sliding hiatal hernia. The li bartolome is normal. There are gallstones in the gallbladder, which is distended. The spleen, pancreas, and adrenal glands are normal. There are 4 stones in right kidney measuring up to 3.2 cm. There is corti aminata thinning of the kidneys. There are cysts in left kidney measuring up to 16 mm. There are approxim ately 4 stones in left kidney measuring up to 3 mm . The Coats catheter balloon is in the prosthetic urethra. Stool distends the rectosigmoid. There is diverticulosis of the colon without evidence of di verticulitis. The appendix is not visualized. There are changes of ventral hernia repair. There is a left inguinal hernia containing fat. There are no pathologically enlarged lymph nodes. There is no fr ee intraperitoneal fluid. There is moderate lumbar spondylosis and mild thoracic spondylosis. There i s mild chronic anterior wedging of T11-L1 vertebral bodies. IMPRESSION: 1. Coats catheter balloon in abnormal position in the prosthetic urethra. 2. Mild pulmonary edema. 3. Small sliding hiatal hernia. 4. Cholelithiasis. Gallbladder distention may be secondary to fasting or acute cholecystitis.] Correl ate with physical exam. 5. Left inguinal hernia containing fat. 6. Stool distends the rectosigmoid. Reviewed, dictated and finalized at location E. IMPRESSION: 1. Coats catheter balloon in abnormal position in the prosthetic urethra. 2. Mild pulmonary edema. 3. Small sliding hiatal hernia. 4. Cholelithiasis. Gallbladder distention may be secondary to fasting or acute cholecystitis.] Correlate with physical exam. 5. Left inguinal hernia containing fat. 6. Stool distends the rectosigmoid.
--- NOTE | ~2023-05-10 | US_ITS ---
EXAMINATION: US arterial ankle brachial ind DATE: 05/18/2023 10:09 INDICATION: Foot ulcer TECHNIQUE: Segmental pressures and plethysmographic and Doppler waveforms of the brachial and lower e xtremity arteries were obtained. COMPARISON: None. FINDINGS: Left brachial artery pressure of 167 mm Hg . Right brachial artery pressure unable be obtained due to the presence of a vascular catheter. The right ankle-brachial index (SOFIA) is unable to be obtained due to inability to occlude the vessels at the right ankle (normal >= 0.9-1.0) which could be due to vessel wall calcification or hypertensi on. The right great toe-brachial index (TBI) is 1.96 (normal >= 0.65). Arterial Doppler waveforms are biphasic with brisk systolic upstrokes at both right posterior tibial and dorsalis pedis arteries. The left SOFIA is 1.11. The left TBI is 0.96. Arterial Doppler waveforms are biphasic with brisk systol ic upstrokes at both left posterior tibial and dorsalis pedis arteries. IMPRESSION: 1. No significant arterial occlusive disease with normal bilateral TBI's and normal left SOFIA. 2. Hypertension with brachial artery pressure 167 mmHg Reviewed, dictated and finalized at location A. IMPRESSION: 1. No significant arterial occlusive disease with normal bilateral TBI's and no rmal left SOFIA. 2. Hypertension with brachial artery pressure 167 mmHg
--- NOTE | ~2023-05-10 | XR_ITS ---
EXAMINATION: XR chest 1V portable DATE: 05/10/2023 15:31 INDICATION: Fever. TECHNIQUE: A single frontal view of the chest was obtained on 2 radiographs. COMPARISON: Chest single view 03/10/2023, CT abdomen and pelvis 06/23/2022 FINDINGS: There is a diffuse interstitial pattern, consistent mild pulmonary edema. No pleural effusi on or pneumothorax. Cardiomegaly is noted. IMPRESSION: 1. Mild pulmonary edema. 2. Cardiomegaly. Reviewed, dictated and finalized at location E.
--- NOTE | 2023-05-10 08:06 | ED.MALEGU ---
HPI - Male Genitourinary General Chief complaint: Urogenital-Male Stated complaint: BLEEDING AROUND CATHETER Source: EMS Mode of arrival: EMS History of Present Illness HPI Narrative: 67 years old white male came from custodial was bleeding around the Coats catheter. ACCORDING TO HIS THAT HE IS CONFUSED, NORMALLY HE IS AWAKE, ALERT AND TALKATIVE BUT CURRENTLY HIS RESTLESS AND CONFUSED. Related Data Home Medications Medication Instructions Recorded Confirmed gabapentin 300 mg capsule 300 mg PO QID 02/15/21 03/10/23 ipratropium 0.5 mg-albuterol 3 mg 3 ml inhalation Q4H PRN Wheezing 02/15/21 03/10/23 (2.5 mg base)/3 mL nebulization soln levothyroxine 100 mcg tablet 100 mcg PO DAILY 02/15/21 03/10/23 insulin NPH-regular 70-30 U-100 20 unit subcut HS 12/08/21 03/10/23 insulin 100 unit/mL subcutaneous pen (Novolin 70-30 FlexPen U-100 Insulin) pravastatin 40 mg tablet 40 mg PO HS 12/08/21 03/10/23 multivitamin with minerals-folic 1 tablet PO DAILY 03/02/22 03/10/23 acid 0.4 mg tablet furosemide 40 mg tablet 60 mg PO DAILY 06/23/22 03/10/23 hydrocodone 5 mg-acetaminophen 325 1 tablet PO Q6H PRN Pain (Scale 06/23/22 03/10/23 mg tablet Score 4-6) insulin NPH-regular 70-30 U-100 25 unit subcut QAM 06/23/22 03/10/23 insulin 100 unit/mL subcutaneous pen (Novolin 70-30 FlexPen U-100 Insulin) acetaminophen 325 mg capsule 650 mg PO Q4-6H 09/10/22 03/10/23 (Tylenol) bupropion HCl 300 mg 24 hr tablet, 300 mg PO QAM 09/10/22 03/10/23 extended release famotidine 20 mg tablet 20 mg PO DAILY ##0 09/10/22 03/10/23 sennosides 8.6 mg-docusate sodium 1 tablet PO BID PRN Constipation 09/10/22 03/10/23 50 mg tablet (Senna Plus) hydrocortisone 0.5 % topical cream 1 applic topical DAILY 09/29/22 03/10/23 silver sulfadiazine 1 % topical 1 applic topical DAILY 09/29/22 03/10/23 cream melatonin 5 mg tablet 5 mg PO HS 03/10/23 03/10/23 Allergies Allergy/AdvReac Type Severity Reaction Status Date / Time No Known Allergies Allergy Verified 09/29/22 13:26 Review of Systems Review of Systems: ROS unobtainable: Yes unobtainable due to mental status PMFSH Past Medical History Medical History Choledocholithiasis (05/2022) Chronic obstructive pulmonary disease Chronic venous insufficiency Depression Diastolic congestive heart failure Gastroesophageal reflux disease Hyperlipidemia Hypertension Hypothyroidism Insulin dependent diabetes mellitus Kidney stones Obstructive sleep apnea Non-compliant with CPAP. Paroxysmal atrial fibrillation Peripheral neuropathy Surgical History Surgical History History of appendectomy History of back surgery History of cataract extraction History of hemorrhoidectomy History of tonsillectomy and adenoidectomy Family History Family History Sibling Family history of obesity Hypertension Family history of diabetes mellitus in first degree relative Family history of heart disease in male family member before age 55 Patient's sister is in good health Patient's brother is Mother Family history of arthritis Family history of malignant neoplasm Patient's mother is Father Patient's father is Other Malignant neoplasm of prostate Social History Social History Social History: [facility] He had 2 children Surrogate medical decision maker: Marlys Marrero, . Code status: Do not resuscitate. (the patient's state form says full code but the patient's wants patient to be a DNR.) Smoking packs per day: 2 Smoking cigarettes per day: 40.0 Years smoked: 15 Smoking pack-years: 30.00 Smoking status: Former smoker Second hand tobacco smoke exposure: No
[2023-05-10] MEDS: SODIUM CHLORIDE 0.9% IV 1,000 ML 999 ML IV CONT (09:44)
[2023-05-10 09:49] LABS: Basophils Absolute Auto 0.1 K/mm3 (0.0-0.1); Basophils Percent Auto 0.5 % (0.2-1.2); Eosinophils Absolute Auto 0.4 K/mm3 (0-0.3); Eosinophils Percent Auto 3.4 % (0-4.4); Hematocrit 43.7 % (42.0-52.0); Hemoglobin 13.6 g/dL (14.0-18.0); Immature Granulocyte Absolute 0.05 K/mm3 (0.00-0.031); Immature Granulocyte Percent A 0.4 % (0-0.5); Lymphocytes Absolute Auto 0.61 K/mm3 (0.9-3.2); Lymphocytes Percent Auto 5.3 % (18.3-44.2); Mean Corpuscular HGB Conc 31.1 g/dl (32-36); Mean Corpuscular Hemoglobin 27.6 pg (26-34); Mean Corpuscular Volume 88.6 fl (80-100); Mean Platelet Volume 9.5 fl (7.4-10.4); Monocytes Absolute Auto 0.9 K/mm3 (0.1-0.6); Monocytes Percent Auto 7.4 % (2.6-8.5); Neutrophils Absolute Auto 9.5 K/mm3 (1.3-6.7); Platelet Count Result 254 k/mm3 (150-375); Red Blood Count 4.93 M/mm3 (4.6-6.20); Red Cell Distribution Width 14.9 % (11.5-14.5); White Blood Count 11.5 K/mm3 (4.5-10.0)
[2023-05-10 09:59] LABS: Alanine Aminotransferase 13 U/L (6-50); Albumin Level 3.6 g/dL (3.5-5.1); Alkaline Phosphatase 102 U/L (38-126); Anion Gap 4 mmol/L (8-16); Aspartate Amino Transferase 26 U/L (17-59); Bilirubin,Total 0.7 mg/dL (0.2-1.3); Blood Urea Nitrogen 18 mg/dL (9-20); Calcium 10.1 mg/dL (8.4-10.2); Carbon Dioxide 28 mmol/L (22-30); Chloride 99 mmol/L (98-107); Estimated CRCL calculation 108 ml/min; Estimated Glomerular Filt Rate > 60; Glucose 189 mg/dL (65-110); Potassium 4.7 mmol/L (3.4-5.0); Sodium 131 mmol/L (137-145)
[2023-05-10 10:01] LABS: INR 1.4; Lactic Acid Reflex 1.4 mmol/L (0.7-2.0); Prothrombin Time 17.9 Seconds (11.1-14.7)
[2023-05-10 10:02] LABS: Partial Thromboplastin Time 41.6 SECONDS (22.3-36.8)
[2023-05-10] MEDS: HYDROmorphone HCL INJ (*CRX) 1 MG/ML SYR 0.5 MG IV PUSH (16:08)
[2023-05-10] MEDS: ONDANSETRON INJ 4 MG/2 ML VIAL IV PUSH (16:08)
[2023-05-10] MEDS: SODIUM CHLORIDE 0.9% IV 1,000 ML 125 ML IV CONT ×2 (16:22→19:00)
[2023-05-10 17:06] LABS: Appearance Urine Cloudy (Clear); Bacteria Urine 4+ /hpf; Bilirubin Urine Negative (Negative); Blood Urine 2+ (Negative); Color Urine Yellow (Yellow); Glucose Urine UA Negative (Negative); Ketones Urine Negative (Negative); Leukocyte Esterase Ur 2+ LEU/UL (Negative); Nitrate Urine Positive (Negative); Non Pathogenic Casts 0-2; Protein Urine 3+ mg/dL (Negative); RBC Urine 21-50 /hpf (0-2); Squamous Epithelial Cell Urine None seen /hpf (Few); WBC Urine >100 /hpf; pH Urine 7.5 (5.0-9.0)
[2023-05-10 17:07] LABS: Specific Grav Ur 1.038 (1.001-1.035)
[2023-05-10 17:08] LABS: Add Urine Microscopic? YES
[2023-05-10] MEDS: METOPROLOL TARTRATE INJ 5 MG/5 ML VIAL IV PUSH (17:22)
--- NOTE | 2023-05-10 17:26 | ECG_ITS ---
Measurements Intervals [place] Rate: 123 P: MD: 0 QRS: 81 QRSD: 100 T: 8 QT: 293 QTc: 420 Interpretive Statements ATRIAL FIBRILLATION WITH RAPID VENTRICULAR RESPONSE ANTEROSEPTAL INFARCT, AGE INDETERMINATE BORDERLINE ST-T WAVE ABNORMALITY- INF/LAT LEADS BASELINE ARTIFACT- I, III, AVL ABNORMAL ECG COMPARED TO ECG 03/10/2023 11:53:16 HEART RATE HAS INCREASED Electronically Signed On 05-10-2023 17:37:43 CDT by Silver Torres D.O.
[2023-05-10 17:40] LABS: Influenza A QL RT-PCR Negative (Negative); Influenza B QL RT-PCR Negative (Negative); RSV RNA, RT-PCR Negative (Negative); SARS-CoV-2 RNA PCR Negative (Negative)
[2023-05-10 18:00] LABS: Basophils Absolute Auto 0.1 K/mm3 (0.0-0.1); Basophils Percent Auto 0.5 % (0.2-1.2); Eosinophils Percent Auto 0.3 % (0-4.4); Hematocrit 47.2 % (42.0-52.0); Hemoglobin 14.2 g/dL (14.0-18.0); Immature Granulocyte Absolute 0.04 K/mm3 (0.00-0.031); Immature Granulocyte Percent A 0.3 % (0-0.5); Lymphocytes Absolute Auto 0.52 K/mm3 (0.9-3.2); Lymphocytes Percent Auto 4.2 % (18.3-44.2); Mean Corpuscular HGB Conc 30.1 g/dl (32-36); Mean Corpuscular Volume 89.9 fl (80-100); Mean Platelet Volume 9.7 fl (7.4-10.4); Monocytes Absolute Auto 0.6 K/mm3 (0.1-0.6); Monocytes Percent Auto 4.6 % (2.6-8.5); Neutrophils Absolute Auto 11.3 K/mm3 (1.3-6.7); Neutrophils Percent Auto 90.1 % (45.5-73.1); Platelet Count Result 249 k/mm3 (150-375); Red Blood Count 5.25 M/mm3 (4.6-6.20); Red Cell Distribution Width 15.2 % (11.5-14.5); White Blood Count 12.5 K/mm3 (4.5-10.0)
[2023-05-10 18:08] LABS: Alanine Aminotransferase 14 U/L (6-50); Albumin Level 3.7 g/dL (3.5-5.1); Alkaline Phosphatase 102 U/L (38-126); Anion Gap 5 mmol/L (8-16); Aspartate Amino Transferase 21 U/L (17-59); Bilirubin,Total 0.7 mg/dL (0.2-1.3); Blood Urea Nitrogen 18 mg/dL (9-20); Calcium 10.1 mg/dL (8.4-10.2); Carbon Dioxide 28 mmol/L (22-30); Chloride 99 mmol/L (98-107); Estimated CRCL calculation 108 ml/min; Estimated Glomerular Filt Rate > 60; Glucose 203 mg/dL (65-110); Potassium 4.7 mmol/L (3.4-5.0); Sodium 132 mmol/L (137-145)
[2023-05-10] MEDS: dilTIAZem 100 MG/100 ML 100 MG/100 ML BAG IV CONT (18:10)
[2023-05-10] MEDS: dilTIAZem HCl INJ 25 MG/5 ML VIAL 10 MG IV PUSH (18:11)
[2023-05-10 18:12] LABS: CRP 6.8 mg/dL (<1.0)
[2023-05-10] MEDS: ACETAMINOPHEN 650 MG SUPPOSITORY RECTAL (18:12)
[2023-05-10 18:15] LABS: INR 1.4
[2023-05-10 18:16] LABS: Partial Thromboplastin Time 42.1 SECONDS (22.3-36.8)
[2023-05-10 18:20] LABS: Lactic Acid Reflex 2.1 mmol/L (0.7-2.0)
--- NOTE | 2023-05-10 18:22 | PM.IMHP ---
H&P: HPI History of Present Illness Date/Time: 05/10/23 17:45 Chief Complaint: Blood around Coats catheter. Narrative: This is a 67-year-old male with history of paroxysmal atrial fibrillation, diastolic congestive heart failure, insulin-dependent diabetes, hypothyroidism, hypertension, untreated obstructive sleep apnea, chronic venous stasis dermatitis, indwelling Coats catheter, and other comorbidities who presented to the emergency department via EMS from [facility] for evaluation after he has found to have blood coming out around his Coats catheter. When I came to evaluate the patient he was not oriented nor was he able to provide history and this is unusual for him. He has reportedly alert, oriented, and talkative at baseline. It is unclear how long he has been in this state as minimal report was given by the transferring facility. He is nonambulatory and depends on a [place] lift for transfer. In the ED: He was tachycardic and in rapid atrial fibrillation on arrival. Blood pressures have been stable in the 140s to 160s systolic. Temperature has been as high as 101?. Labs were significant for a WBC count of 11.5, PT 17.9, INR 1.4, PTT 41.6, sodium 131, potassium 4.7, BUN 18, creatinine 0.0, lactic acid 1.4, normal LFTs, CRP 6.8. Urine was positive nitrates, leukocyte esterase, 3+ protein, 2+ blood, 21 to 50 RBC, greater than 100 WBC, and 4+ bacteria. Chest x-ray showed mild pulmonary edema, cardiomegaly. CT of the abdomen and pelvis showed Coats catheter balloon in abnormal position in the prostatic urethra, mild pulmonary edema, gallbladder distension may be secondary to fasting or acute cholecystitis, and cholelithiasis. Coats catheter was exchanged and he now like red urine coming from the catheter. He was given a dose of ceftriaxone for presumed urinary tract infection. He has also been started on a diltiazem drip for rapid atrial fibrillation. He is being admitted to the IMU in this setting for further treatment and evaluation. Review of Systems Review of Systems: Unable to be obtained accurately given clinical condition. [facility] Past Medical History Medical History Choledocholithiasis (05/2022) Chronic obstructive pulmonary disease Chronic venous insufficiency Depression Diastolic congestive heart failure Gastroesophageal reflux disease Hyperlipidemia Hypertension Hypothyroidism Insulin dependent diabetes mellitus Kidney stones Obstructive sleep apnea Non-compliant with CPAP. Paroxysmal atrial fibrillation Peripheral neuropathy Surgical History Surgical History History of appendectomy History of back surgery History of cataract extraction History of hemorrhoidectomy History of tonsillectomy and adenoidectomy Family History Family History Sibling Family history of obesity Hypertension Family history of diabetes mellitus in first degree relative Family history of heart disease in male family member before age 55 Patient's sister is in good health Patient's brother is Mother Family history of arthritis Family history of malignant neoplasm Patient's mother is Father Patient's father is Other Malignant neoplasm of prostate Social History Social History (Updated 05/10/23 @ 21:25 by Malorie Jones PA-C) Social History: Surrogate medical decision maker: Marlys Janes, . Code status: Full code. Smoking packs per day: 1.5 Smoking cigarettes per day: 30.0 Years smoked: 15 Smoking pack-years: 22.50 Smoking status: Former smoker Tobacco type: cigarettes Second hand tobacco smoke exposure: No Alcohol intake: never Substance use: never Substance use type: does not use Lack of Transportation: No Lack of Food: Never True Current Kevin
--- NOTE | 2023-05-10 19:23 | ADMGEN ---
This patient, Taye Marrero Jr., was admitted to IMU Room 204-01. Patient/family oriented to hospital policies and general routines including ID bracelet, bed and alarms, visiting hours, pain management, procedures, bathroom and other care routines, personal items, smoking policy, room service/diet, and visiting hours. Information on how to activate the Rapid Response Team has been discussed. Patient/Family are encouraged to report perceived risks to care and to ask questions if they do not understand what they are told or what they should do.
[2023-05-10 20:54] LABS: Reflex Lactic Acid Yes or No Add Lactic
[2023-05-10] MEDS: VANCOMYCIN 1,250 MG/NS 250 ML 1,250 MG/250 ML BAG 166.67 MG IVPB (21:08)
--- NOTE | 2023-05-10 21:11 | PC.NURSE ---
This RN and charge nurse, Tiffanie Garcia RN, educated patient's POA on current code status and provider's recommendation to continue with previous advance directive. Patient's POA (spouse) thanked nurse for the education and stated she wanted everything done. Patient made a full code at this time.
--- NOTE | 2023-05-10 21:16 | PC.NURSE ---
Patient did not come to unit with [facility] papers. [facility] called twice by this nurse with no answer.
[2023-05-10 21:54] LABS: Ammonia < 9 umol/L (9-30)
[2023-05-10 21:55] LABS: Alveolar/Arterial O2 Gradient 99.4 mmHg; Base Excess ABG -3.1 mEq/l (+/-2.0); Carboxyhemoglobin 0.3 % THb (0-2.0); Fractional Inspired Oxygen 32 %; HCO3 ABG 21.5 mEq/l (22.0-26.0); Methemoglobin ABG 0.3 %THb (0-1.5); Oxygen Content ABG 17.9 %vol (16.0-22.0); Oxygen Saturation ABG 96.4 % (95.0-100.0); Oxyhemoglobin 94.8 % THb (90.0-100.0); PCO2 ABG 36.9 mmHg (35.0-45.0); PO2 ABG 85.6 mmHg (80.0-100.0); PO2 FiO2 Ratio Arterial Blood 2.67 %; Reduced Hemoglobin 4.6 %THb (0-5.0); Total Hemoglobin 13.4 g/dL (12.0-18.0); pH ABG 7.383 (7.350-7.450)
[2023-05-10 22:01] LABS: Device NASAL CANNULA; Modified Allen's Test Pass; Site Drawn RIGHT RADIAL
[2023-05-10] MEDS: metroNIDAZOLE 500 MG/ISO 100ML 500 MG/100 ML BAG 100 MG IVPB (22:08)
--- NOTE | 2023-05-10 23:49 | ECG_ITS ---
Measurements Intervals [place] Rate: 64 P: ID: 0 QRS: 130 QRSD: 113 T: 163 QT: 415 QTc: 428 Interpretive Statements ATRIAL FIBRILLATION WITH NORMAL VENTRICULAR RATE VENTRICULAR PREMATURE COMPLEX CONSIDER LIMB LEAD REVERSAL LOW QRS VOLTAGE IN PRECORDIAL LEADS ABNORMAL ECG COMPARED TO ECG 05/10/2023 17:27:58 HEART RATE HAS DECREASED Electronically Signed On 05-11-2023 6:40:24 CDT by Silver Torres D.O.
[2023-05-11] VITALS (56 sets, daily range): BP systolic 68–128; BP diastolic 42–78; PULSE 55–95; RESP 14–20; TEMP 35.5–36.9; O2SAT 94–100
--- NOTE | 2023-05-11 | ECHO_ITS ---
Patient Info Name: Taye Marrero Age: 67 years : 1955 Gender: Male Ht: 71 in Wt: 274 lbs BSA: 2.54 m2 HR: 65 bpm BP: 110 / 71 mmHg Heart Rhythm: Atrial Fibrillation Technical Quality: Fair Exam Date: 05/11/2023 8:53 AM Exam Location: Echo Lab Patient Status: Inpatient Admit Date: 05/11/2023 Staff Ordering Physician: Antwon Brewer MD Costume Director: Mavis Lim RDCS Attending Provider: Paul Rosado MD Referring Physician: Osman GALEANA; Exam Type: CA echo dop color flow w con Study Info Indications - sEPTIC SHOCK, ELEVATED TROPONIN Complete two-dimensional, color flow and Doppler transthoracic echocardiogram is performed with contrast to opacify the left ventricle and to improve the deliniation of the left ventricle endocardial borders. Contrast/Agitated Saline Contrast/Ag. Saline: Definity Amount: 3.00 ml Administered By: Mavis Lim RDCS Existing IV Access: Yes IV Access Condition: patent with no signs of infiltration Summary 1. Left ventricular hypertrophy with well-preserved systolic contractility. 2. Severe biatrial dilation. 3. Small amount of tricuspid regurgitation. 4. Atrial fibrillation. Left Ventricle Left ventricular chamber dimension is normal. Left ventricular systolic function is normal, estimated at 65-70%. There is moderate concentric increased left ventricular wall thickness. The left ventricular diastolic function is indeterminate. Right Ventricle Right ventricular chamber dimension is normal. Left Atria Left atrial chamber dimension is severely enlarged. Right Atria Right atrial chamber dimension is severely enlarged. Aortic Valve The aortic valve is normal. Pulmonic Valve The pulmonic valve is not well visualized. Mitral Valve The mitral valve has normal leaflets. The mitral valve annulus is mildly calcified. Tricuspid Valve The tricuspid valve leaflets are normal. There is mild tricuspid valve regurgitation. Moderate pulmonary hypertension, estimated pulmonary arterial systolic pressure is 56 mmHg. Pericardium/Pleural The pericardium appears normal. Aorta The aortic root size at the sinus of Valsalva is normal. Left Ventricular Outflow Tract Name Value Normal LVOT 2D LVOT Diameter 1.98 cm LVOT Doppler LVOT Peak Gradient 3 mmHg LVOT Mean Gradient 2 mmHg LVOT VTI 21.50 cm LVOT VTI/AV VTI Ratio 0.90 LVOT Stroke Volume 66.09 ml LVOT CO 3.92 l/min LVOT CI 1.54 L/min/m2 Pulmonic Valve Name Value Normal RVOT Doppler RVOT Peak Gradient 1 mmHg PV Doppler PV Peak Gradient 2 mmHg Tricuspid Valve ----
--- NOTE | 2023-05-11 00:03 | ECG_ITS ---
Measurements Intervals [place] Rate: 72 P: [place]: 0 QRS: 128 QRSD: 105 T: 165 QT: 418 QTc: 460 Interpretive Statements ATRIAL FIBRILLATION WITH NORMAL VENTRICULAR RATE CONSIDER LIMB LEAD REVERSAL LOW QRS VOLTAGE IN PRECORDIAL LEADS BASELINE ARTIFACT- V1 ABNORMAL ECG COMPARED TO ECG 05/10/2023 23:52:51 NO SIGNIFICANT CHANGES Electronically Signed On 05-11-2023 14:28:00 CDT by Silver Torres D.O.
[2023-05-11] MEDS: VANCOMYCIN 1,250 MG/NS 250 ML 1,250 MG/250 ML BAG 166.67 MG IVPB (00:32)
[2023-05-11] MEDS: SODIUM CHLORIDE 0.9% IV 1,000 ML 999 ML IV CONT ×2 (00:32→01:35)
[2023-05-11] MEDS: LORazepam INJ (*CRX) 2 MG/ML VIAL 1 MG IV PUSH ×2 (00:35→00:55)
[2023-05-11 00:36] LABS: Glucose Point of Care 231 mg/dl (65-105)
[2023-05-11 00:36] LABS: Anion Gap 2 mmol/L (8-16); Blood Urea Nitrogen 17 mg/dL (9-20); Calcium 6.7 mg/dL (8.4-10.2); Carbon Dioxide 19 mmol/L (22-30); Chloride 112 mmol/L (98-107); Estimated CRCL calculation 115 ml/min; Estimated Glomerular Filt Rate > 60; Glucose 181 mg/dL (65-110); Magnesium 1.4 mg/dL (1.6-2.3); Potassium 3.2 mmol/L (3.4-5.0); Sodium 133 mmol/L (137-145)
[2023-05-11 00:45] LABS: Lactic Acid Reflex 1.5 mmol/L (0.7-2.0)
--- NOTE | 2023-05-11 00:45 | PC.NURSE ---
This patient, Taye Kwan Janes Monroy, was received from [ [phone]] on 05/11/23 at 0045. Patient/family oriented to unit policies and routines
[2023-05-11] MEDS: NOREPINEPHRINE 8 MG/D5W 250 ML 8 MG/250 ML BAG 9.38 MG IV CONT (01:00)
--- NOTE | 2023-05-11 01:00 | PC.NURSE ---
Decline in Pt. Condition 1900 - pt to IMU 204 on cardizem gtt with rate of 5. HR 113 in afib. BP 143/85. 3L nasal cannula at 98%. Pt is unable to answer orientation questions. Says yes when asked about pain but will blankly stare with other questions until he rolls his eyes back, groans to movement, and falls to sleep. Able to awaken with loud verbal noise and touch. IVF running at rate of 125. Antibx ordered. Photos of bilateral scaly legs and open left heel wound and macerated bottom taken and uploaded to chart. Lung sounds clear/diminished. Mesh panel in lower abdomen palpable. 0 - pt to CT, HR dropped from 82 to 70. Turned off cardizem gtt. Pt. still lethargic with intermittent groans. 0 - noticed change in pt.'s ekg strip. Pt. bradying down into the low 60s. EKG ordered. 2L bolus and stat labs ordered by PA. BP 60/43. SPO2 97% on 3L nasal cannula. 0005 - Dr. Bansal paged due to EKG showing possible STEMI. After viewing the strips, Dr. Bansal confirmed it was not a STEMI. Dr. Rausch moving pt. to ICU for lines and levo. Report given to RONNIE Bradley.
[2023-05-11] MEDS: MORPHINE SULFATE (*CRX) 4 MG/ML INJ IV PUSH (01:06)
[2023-05-11] MEDS: MIDAZOLAM HCL (*CRX) 2 MG/2 ML VIAL IV PUSH ×2 (01:30→01:45)
[2023-05-11 02:15] LABS: Glucose Point of Care 266 mg/dl (65-105)
[2023-05-11] MEDS: INSULIN ASPART (*BKC) 100 UNITS/ML SUB-Q ×2 (02:15→07:00)
[2023-05-11] MEDS: CEFEPIME 2 GM/NS 50 ML 2 GM/50 ML BAG IVPB (02:19)
[2023-05-11] MEDS: MAGNESIUM SULF 2 GM/WATER 50ML 2 GM/50 ML BAG IVPB (02:19)
[2023-05-11] MEDS: KCL 40 MEQ/WATER 100 ML 100 ML 25 ML IVPB (02:31)
--- NOTE | 2023-05-11 02:33 | PM.EVENT ---
Event Note Event Note Event Note: Call to the patient's room due to lethargy, low blood pressures. Objective: Patient ill appearing chronically minimally responsive obtunded. Subjective: Patient mumbles words. Heart rate: 67 blood pressure: 70/52 general: Chronically ill-appearing, morbid of these, lethargic HEENT: Atraumatic normocephalic PERRLA EOM intact supple no JVD. respiratory: Diminished throughout cardiovascular: irregularly regular rhythm abdomen: Large pannus legs: Multiple sores scabbed over, 2+ bilateral lower extremity edema skin: Multiple ulcers scabbed over bilateral lower extremity central nervous system: Patient is obtunded, face is symmetric, no speech disturbance, patient moves all extremities purposely assessment and plan: 1. Sepsis shock: Transfer to intensive care unit, early goal-directed therapy in progress, central line placed in patient started on vasopressor 2. atrial fibrillation with rapid ventricular response: Patient on diltiazem drip has been stopped due to hypotension 3. Acute hypoxic respiratory failure: On supplemental oxygen by nasal cannula 4.Obstructive sleep apnea: Unclear if use of CPAP at home
--- NOTE | 2023-05-11 02:40 | P.PCNBED_ITS ---
Procedures Central Line Placement Left IJ: Central Line Date: 05/11/23 Central Line Time: 02:00 Consent: I have discussed with the patient and/or surrogate, the non-emergent placement of a central venous catheter, including its clinical necessity/indication and associated potential risks and complications. The patient and/or surrogate understand(s) and acknowledge(s) the need to proceed with central venous catheter insertion as an important element of the patient's clinical management. Time Out Performed: Yes Patient Position: trendelenburg Patient placed on monitor/pulse ox: Yes Provider Prep: mask, sterile gown, sterile gloves, Max. sterile barrier precautions, cap, hand hygiene with conventional soap/water or alcohol based hand rub and emergent ? sterile barriers not used Central line prep: 2% Chlorhexidine scrub Local anesthesia used: lidocaine 1% Amount of anesthesia used (ml): 10 Sterile US Technique with sterile gel/sterile probe covers: Yes Central line lumen inserted: triple Syriac: 15 Length (cm): 15 Depth of Insertion (cm): 15 Post Procedure: sutured in place, good blood return, all ports aspirated, flushed, capped, transparent dressing, hemostatic product, antimicrobial product, securement product and aseptic technique maintained throughout procedure ( had to convert right IJ to left IJ) Post procedure x-ray: tip of catheter in good position and no pneumothorax seen Patient tolerated procedure: well and no complications Complications: none Additional comments: procedure started with right IJ however due to Kussmaul pattern of breathing and collapsing had to go for femoral line however unable to find femoral ended up placing a left IJ
[2023-05-11 02:48] LABS: Troponin I 0.062 ng/mL (0.000-0.034)
[2023-05-11] MEDS: SODIUM CHLORIDE 0.45% 1,000 ML 85 ML IV CONT (02:56)
[2023-05-11 04:15] LABS: Troponin I 0.071 ng/mL (0.000-0.034)
[2023-05-11 05:10] LABS: Amphetamine Screen Urine Negative (Negative); Barbiturate Screen Urine Negative (Negative); Benzodiazepines Screen Urine Negative (Negative); Cannabinoid Screen Urine Negative (Negative); Cocaine Screen Urine Negative (Negative); Methadone Screen Urine Negative (Negative); Opiate Screen Urine Positive (Negative); Phencyclidine Screen Urine Negative (Negative)
[2023-05-11] MEDS: metroNIDAZOLE 500 MG/ISO 100ML 500 MG/100 ML BAG 100 MG IVPB ×3 (06:21→21:18)
[2023-05-11] MEDS: CENTRAL LINE FLUSH 10 ML IV PUSH ×3 (06:22→21:19)
[2023-05-11 06:57] LABS: Glucose Point of Care 227 mg/dl (65-105)
[2023-05-11 07:08] LABS: Basophils Absolute Auto 0.1 K/mm3 (0.0-0.1); Basophils Percent Auto 0.3 % (0.2-1.2); Eosinophils Absolute Auto 0.1 K/mm3 (0-0.3); Eosinophils Percent Auto 0.4 % (0-4.4); Hematocrit 37.6 % (42.0-52.0); Hemoglobin 11.3 g/dL (14.0-18.0); Immature Granulocyte Percent A 0.5 % (0-0.5); Lymphocytes Absolute Auto 1.34 K/mm3 (0.9-3.2); Mean Corpuscular HGB Conc 30.1 g/dl (32-36); Mean Corpuscular Hemoglobin 27.8 pg (26-34); Mean Corpuscular Volume 92.4 fl (80-100); Mean Platelet Volume 9.5 fl (7.4-10.4); Monocytes Absolute Auto 1.5 K/mm3 (0.1-0.6); Monocytes Percent Auto 7.6 % (2.6-8.5); Neutrophils Absolute Auto 16.2 K/mm3 (1.3-6.7); Neutrophils Percent Auto 84.2 % (45.5-73.1); Platelet Count Result 236 k/mm3 (150-375); Red Blood Count 4.07 M/mm3 (4.6-6.20); Red Cell Distribution Width 15.4 % (11.5-14.5); White Blood Count 19.2 K/mm3 (4.5-10.0)
[2023-05-11 07:10] LABS: Alanine Aminotransferase 11 U/L (6-50); Albumin Level 2.8 g/dL (3.5-5.1); Alkaline Phosphatase 69 U/L (38-126); Anion Gap -2 mmol/L (8-16); Aspartate Amino Transferase 22 U/L (17-59); Bilirubin,Total 0.4 mg/dL (0.2-1.3); Blood Urea Nitrogen 23 mg/dL (9-20); Calcium 8.9 mg/dL (8.4-10.2); Carbon Dioxide 28 mmol/L (22-30); Chloride 105 mmol/L (98-107); Estimated CRCL calculation 85 ml/min; Estimated Glomerular Filt Rate > 60; Glucose 231 mg/dL (65-110); Magnesium 2.2 mg/dL (1.6-2.3); Phosphorus 3.8 mg/dL (2.5-4.5); Potassium 5.4 mmol/L (3.4-5.0); Sodium 131 mmol/L (137-145)
[2023-05-11 07:24] LABS: Troponin I 0.061 ng/mL (0.000-0.034)
[2023-05-11] MEDS: LACTATED RINGERS 1,000 ML 75 ML IV CONT (08:38)
[2023-05-11] MEDS: PIPERACILLIN/TAZ 4.5G/NS 100ML 4.5 GM/100 ML BAG IVPB ×4 (08:39→23:42)
[2023-05-11 08:50] LABS: Lactic Acid Reflex 1.1 mmol/L (0.7-2.0)
--- NOTE | 2023-05-11 09:07 | PM.CNCAR ---
Assessment and Plan Assessment and plan (1) Atrial fibrillation with rapid ventricular response: Code(s): I48.91 - Unspecified atrial fibrillation Status: Acute Plan This is a 67-year-old man who I believe has chronic, not paroxysmal atrial fibrillation. He does have a intraventricular conduction delay on his ECG which is also chronic. He currently is alternated between this and a junctional rhythm with left bundle branch block conduction pattern. He does not have an ST-elevation [place] going on which was the principal or stated reason for consulting us to see him today. Systemic anticoagulation with apixaban is appropriate and has been continued. He is receiving antibiotic treatment for urinary sepsis in the ICU. Hemodynamically he is better than yesterday evening and hopefully his pressor support can be gradually weaned with the course of the day. At this time there are no specific cardiovascular recommendations to make Teddy Justin MD [facility] History of Present Illness History of Present Illness Consult date/time: 05/11/23 09:07 Reason For Visit: UTI, catheter related,AFIB w/RVR Coats Catheter [place] Narrative: This is a 67-year-old patient I am seeing today at the request of the hospitalist the stated reason for consultation is possible STEMI. The patient is known to me from a previous consultation in May of last year and his chart has been reviewed. The patient is in the ICU he is arousable and responsive but is very sleepy and not able to provide much history otherwise. He denies experiencing any recent chest pain. He resides in a local halfway and has a chronic indwelling Coats. He was brought here to the emergency room last night because of bleeding noticed from his Coats catheter site, he had fever and AFib with rapid ventricular response. According to the record he is known to have chronic atrial fibrillation. The notes in the chart indicate paroxysmal AFib but I believe the correct diagnosis is chronic AF. He had an electrocardiogram that shows AFib with an intraventricular conduction delay. Compared to EKG last year there are no significant interval changes. There is certainly no ST or T-wave abnormality to consider an acute current of injury. When I saw the patient in May of last year he was hemodynamically stable with AF. He did not really require much in the way of rate control medication. He was started on anticoagulation with apixaban which is still maintained at this time. He has no other cardiovascular history. Current rhythm is between sinus as described above also some junctional rhythm with heart rate in the 60s with left bundle branch block conduction pattern. Review of Systems Review of Systems: ROS unobtainable: Yes unobtainable due to mental status [facility] Past Medical History Medical History Choledocholithiasis (05/2022) Chronic obstructive pulmonary disease Chronic venous insufficiency Depression Diastolic congestive heart failure Gastroesophageal reflux disease Hyperlipidemia Hypertension Hypothyroidism Insulin dependent diabetes mellitus Kidney stones Obstructive sleep apnea Non-compliant with CPAP. Paroxysmal atrial fibrillation Peripheral neuropathy Surgical History Surgical History History of appendectomy History of back surgery History of cataract extraction History of hemorrhoidectomy History of tonsillectomy and adenoidectomy Family History Family History Sibling Family history of obesity Hypertension Family history of diabetes mellitus in first degree relative Family history of heart disease in male family member before age 55 Patient's sister is in good health Patient's brother is Mother Family history of arthritis Family history of malignant neopl
[2023-05-11] MEDS: VANCOMYCIN 1,500 MG/NS 500 ML 1,500 MG/500 ML BAG 250 MG IVPB ×2 (09:14→21:19)
--- NOTE | 2023-05-11 09:23 | WPDCNINT ---
Assessment and Plan Assessment and plan (1) Septic shock: Code(s): A41.9 - Sepsis, unspecified organism; R65.21 - Severe sepsis with septic shock Status: Acute Assessment and Plan: Patient was transferred from intermediate Unit to ICU for hypotension, received a total of 3-4 L of fluid since admission -refractory hypotension requiring central line insertion and Levophed -continue Levophed to maintain MAP > 65 mmHg or SBP > 100 mmHg for adequate end organ perfusion -05/09: Blood cultures have been and pending -05/09: Urine cultures have been obtained and pending -05/10: Wound culture has been obtained and pending the foot -patient was started on cefepime, Flagyl and vancomycin, after looking at previous cultures results cefepime was discontinued and patient was started on Zosyn -so currently he is on Flagyl, vancomycin (05/09) and Zosyn (05/10) -will deescalate antibiotics once cultures have been resulted 05/09: CT scan of the abdomen and pelvis: CT scan of the abdomen and pelvis showed Coats catheter balloon in abnormal position in the prostatic urethra, mild pulmonary edema, gallbladder distention may be 2nd fasting acute cholecystitis and cholelithiasis. (2) Urinary tract infection: Code(s): N39.0 - Urinary tract infection, site not specified Status: Acute Assessment and Plan: Patient had hematuria, CT scan of the abdomen pelvis showed Coats catheter balloon in abnormal position in the prostatic urethra -Coats catheter was exchanged in the ER, Coats catheter was irrigated in the ICU for now his clear urine as compared to bloody and pink colored urine the ER. -continue antibiotics as above, cultures are pending (3) Hematuria: Code(s): R31.9 - Hematuria, unspecified Status: Acute Assessment and Plan: As above, -hematuria resolved (4) Insulin dependent diabetes mellitus: Status: Chronic Assessment and Plan: Continue sliding scale insulin and Accu-Cheks -may require Lantus the blood sugars elevated (5) Diabetic foot ulcer: Code(s): E11.621 - Type 2 diabetes mellitus with foot ulcer; L97.509 - Non-pressure chronic ulcer of other part of unspecified foot with unspecified severity Status: Acute Assessment and Plan: Continue antibiotics as above -wound care team to evaluate the patient 05/09: X-ray of left foot: No evidence of osteomyelitis 05/09: X-ray of left heel: No evidence of osteomyelitis (6) Altered mental status: Code(s): R41.82 - Altered mental status, unspecified Status: Acute Assessment and Plan: Patient more awake this morning, also talking and answering questions -likely related to septic shock, hypotension, infection -continue to monitor (7) Atrial fibrillation with rapid ventricular response: Code(s): I48.91 - Unspecified atrial fibrillation Status: Acute Assessment and Plan: Patient with AFib RVR with heart rates in the 170s in the ER, started on Cardizem infusion -overnight became hypotensive requiring vasopressors -currently in AFib with heart rate in the 50s and 60s -will hold Eliquis patient has had hematuria, if urine remains clear and hemoglobin is stable will restart in the morning -continue to monitor (8) Hypothyroidism: Code(s): E03.9 - Hypothyroidism, unspecified Status: Acute Assessment and Plan: Start levothyroxine Plan DVT prophylaxis: Cannot place SCDs due to skin changes on bilateral lower extremities, holding Eliquis due to hematuria Stress ulcer prophylaxis: For monitor Nutrition: Heart healthy and diabetic diet Code Status: Full code Critical Care Time Spent: 48 minutes Discussed with patient and his spouse at bedside updated them with patient's condition and plan of care. I answered all questions. They are aware that patient is on blood pressure support medication he was hypotensive 10 in septic shock likely related to UTI that he
[2023-05-11] MEDS: PERFLUTREN LIPID MICROSPHERES 1.5 ML VIAL DILUTED TO 10 ML TOTAL VOLUME IV PUSH (10:32)
[2023-05-11 11:33] LABS: Glucose Point of Care 161 mg/dl (65-105)
--- NOTE | 2023-05-11 12:08 | IVDEFINITY ---
Prior to administration of IV Definity the patient was educated on the risks and benefits of the imaging enhancing agent including potential adverse side effects. The patient verbalized understanding. Allergies were verified. No exclusion criteria were identified and at least one of the following inclusion criteria were met: 1) physician request, 2) patient technically difficult to image (per the [place] [employer] guidelines of two or more segments not discernable within the apical view), or 3) questionable left ventricular function. ?
--- NOTE | 2023-05-11 13:21 | WPDURCON ---
Assessment and Plan Assessment and plan (1) Septic shock: Code(s): A41.9 - Sepsis, unspecified organism; R65.21 - Severe sepsis with septic shock Status: Acute Assessment and Plan: Source of infection felt to be UTI. He is currently requiring pressors. (2) Urinary tract infection: Code(s): N39.0 - Urinary tract infection, site not specified Status: Acute Assessment and Plan: UA grossly abnormal. Urine culture pending. Continue empiric antibiotics while awaiting culture results. (3) Hematuria: Code(s): R31.9 - Hematuria, unspecified Status: Resolved Assessment and Plan: Gross hematuria and urethral bleeding felt to be secondary to malpositioned catheter in the prostatic urethra. [place] catheter has been replaced and is now in appropriate position and draining well. Urethral bleeding has resolved and urine is clear yellow. Maintain [place] catheter Urology Consult Note HPI Date Seen: 05/11/23 Requesting Physician: Paul Rosado MD Primary Care Provider: Jyoti Cote, Consult Narrative Narrative: Taye Marrero Jr. is a 67 year old male with a history of kidney stones who is being seen in consultation for evaluation of urethral bleeding. He is currently in the ICU for septic shock with source of infection felt to be related to UTI. He is not able to provide any information however his is present at the bedside and provides history. She states he has had a chronic [place] catheter for 1 year since he has been at his nursing facility due to immobility. He has monthly catheter changes managed by nursing staff at his facility. His reports that his catheter was exchanged on 05/09/23. The following morning, she received a call that he was having bleeding from his urethra and it was recommended he go to the ER for evaluation. On arrival, a CT of the abdomen/pelvis was completed which demonstrated the catheter to be malpositioned in the prostatic urethra. The catheter was replaced and positioned properly. His urethral bleeding improved with this and urine in his [place] bag remained clear. UA is grossly abnormal, concerning for urinary tract infection. WBC is markedly elevated. Creatinine is within normal limits. He had a low grade fever on admission but remains afebrile today. Review of Systems Review of Systems: ROS unobtainable: Yes unobtainable due to medical condition PMFSH Past Medical History Medical History Choledocholithiasis (05/2022) Chronic obstructive pulmonary disease Chronic venous insufficiency Depression Diastolic congestive heart failure Gastroesophageal reflux disease Hyperlipidemia Hypertension Hypothyroidism Insulin dependent diabetes mellitus Kidney stones Obstructive sleep apnea Non-compliant with CPAP. Paroxysmal atrial fibrillation Peripheral neuropathy Surgical History Surgical History History of appendectomy History of back surgery History of cataract extraction History of hemorrhoidectomy History of tonsillectomy and adenoidectomy Family History Family History Sibling Family history of obesity Hypertension Family history of diabetes mellitus in first degree relative Family history of heart disease in male family member before age 55 Patient's sister is in good health Patient's brother is Mother Family history of arthritis Family history of malignant neoplasm Patient's mother is Father Patient's father is Other Malignant neoplasm of prostate Social History Social History (Updated 05/10/23 @ 21:25 by Malorie Jones PA-C) Social History: Surrogate medical decision maker: Marlys Marrero, . Code status: Full code. Smoking packs per day: 1.5 Smoking cigarettes p
[2023-05-11 14:46] LABS: Anion Gap -1 mmol/L (8-16); Blood Urea Nitrogen 22 mg/dL (9-20); Calcium 8.8 mg/dL (8.4-10.2); Carbon Dioxide 27 mmol/L (22-30); Chloride 106 mmol/L (98-107); Estimated CRCL calculation 85 ml/min; Estimated Glomerular Filt Rate > 60; Glucose 133 mg/dL (65-110); Potassium 4.5 mmol/L (3.4-5.0); Sodium 132 mmol/L (137-145)
[2023-05-11 16:07] LABS: Glucose Point of Care 121 mg/dl (65-105)
[2023-05-11] MEDS: GABAPENTIN 300 MG CAPSULE PO ×2 (16:57→21:18)
[2023-05-11] MEDS: ACETAMINOPHEN 325 MG TABLET 650 MG PO (16:57)
[2023-05-11 20:17] LABS: MRSA (PCR) DETECTED (NOT DETECTE)
[2023-05-11] MEDS: PRAVASTATIN SODIUM 20 MG TABLET 40 MG PO (21:18)
[2023-05-12] VITALS (14 sets, daily range): BP systolic 103–145; BP diastolic 65–84; PULSE 72–114; RESP 11–19; TEMP 36.5–36.9; O2SAT 94–99
[2023-05-12] MEDS: LACTATED RINGERS 1,000 ML 75 ML IV CONT (03:30)
[2023-05-12] MEDS: PIPERACILLIN/TAZ 4.5G/NS 100ML 4.5 GM/100 ML BAG IVPB ×4 (05:49→23:13)
[2023-05-12] MEDS: LEVOTHYROXINE SODIUM 100 MCG TABLET PO (05:49)
[2023-05-12] MEDS: metroNIDAZOLE 500 MG/ISO 100ML 500 MG/100 ML BAG 100 MG IVPB (05:49)
[2023-05-12] MEDS: CENTRAL LINE FLUSH 10 ML IV PUSH ×3 (05:49→20:14)
[2023-05-12 06:15] LABS: Basophils Absolute Auto 0.1 K/mm3 (0.0-0.1); Basophils Percent Auto 0.6 % (0.2-1.2); Eosinophils Absolute Auto 0.7 K/mm3 (0-0.3); Eosinophils Percent Auto 9.1 % (0-4.4); Hematocrit 36.9 % (42.0-52.0); Immature Granulocyte Absolute 0.06 K/mm3 (0.00-0.031); Immature Granulocyte Percent A 0.7 % (0-0.5); Lymphocytes Absolute Auto 0.76 K/mm3 (0.9-3.2); Lymphocytes Percent Auto 9.5 % (18.3-44.2); Mean Corpuscular HGB Conc 29.8 g/dl (32-36); Mean Corpuscular Hemoglobin 27.6 pg (26-34); Mean Corpuscular Volume 92.7 fl (80-100); Mean Platelet Volume 9.9 fl (7.4-10.4); Monocytes Absolute Auto 0.8 K/mm3 (0.1-0.6); Monocytes Percent Auto 9.4 % (2.6-8.5); Neutrophils Absolute Auto 5.7 K/mm3 (1.3-6.7); Neutrophils Percent Auto 70.7 % (45.5-73.1); Platelet Count Result 202 k/mm3 (150-375); Red Blood Count 3.98 M/mm3 (4.6-6.20); Red Cell Distribution Width 15.4 % (11.5-14.5)
[2023-05-12 06:29] LABS: INR 1.4; Prothrombin Time 18.4 Seconds (11.1-14.7)
[2023-05-12 06:30] LABS: Partial Thromboplastin Time 45.1 SECONDS (22.3-36.8)
[2023-05-12 06:45] LABS: Lactic Acid Reflex 0.8 mmol/L (0.7-2.0)
[2023-05-12 06:47] LABS: Alanine Aminotransferase 13 U/L (6-50); Albumin Level 2.8 g/dL (3.5-5.1); Alkaline Phosphatase 72 U/L (38-126); Anion Gap 0 mmol/L (8-16); Aspartate Amino Transferase 36 U/L (17-59); Bilirubin,Total 0.4 mg/dL (0.2-1.3); Blood Urea Nitrogen 21 mg/dL (9-20); Calcium 8.9 mg/dL (8.4-10.2); Carbon Dioxide 26 mmol/L (22-30); Chloride 107 mmol/L (98-107); Estimated CRCL calculation 96 ml/min; Estimated Glomerular Filt Rate > 60; Glucose 163 mg/dL (65-110); Magnesium 2.1 mg/dL (1.6-2.3); Potassium 4.2 mmol/L (3.4-5.0); Sodium 133 mmol/L (137-145)
[2023-05-12] MEDS: buPROPion HCL XL (24 HR) 150 MG TABCR 300 MG PO (08:14)
[2023-05-12] MEDS: FAMOTIDINE 20 MG TABLET PO (08:15)
[2023-05-12] MEDS: ASPIRIN 81 MG ENTERIC TABLET PO (08:17)
[2023-05-12 08:24] LABS: Glucose Point of Care 163 mg/dl (65-105)
--- NOTE | 2023-05-12 09:44 | WPDINTPN ---
Progress Note: A&P Assessment and Plan (1) Septic shock: Code(s): A41.9 - Sepsis, unspecified organism; R65.21 - Severe sepsis with septic shock Status: Acute Assessment and Plan: Patient was transferred from intermediate Unit to ICU for hypotension, received a total of 3-4 L of fluid since admission -refractory hypotension requiring central line insertion and Levophed -continue Levophed to maintain MAP > 65 mmHg or SBP > 100 mmHg for adequate end organ perfusion -05/09: Blood cultures are growing Gram-negative rods. Repeat blood cultures ordered 05/11 -05/09: Urine cultures have been obtained and pending -05/10: Wound culture is growing Staph aureus and Pseudomonas aeruginosa -patient was started on cefepime, Flagyl and vancomycin, after looking at previous cultures results cefepime was discontinued and patient was started on Zosyn -so currently he is on vancomycin (05/09) and Zosyn (05/10). DC Flagyl 05/09: CT scan of the abdomen and pelvis: CT scan of the abdomen and pelvis showed Coats catheter balloon in abnormal position in the prostatic urethra, mild pulmonary edema, gallbladder distention may be 2nd fasting acute cholecystitis and cholelithiasis. Coats was reposition (2) Urinary tract infection: Code(s): N39.0 - Urinary tract infection, site not specified Status: Acute Assessment and Plan: Patient had hematuria, CT scan of the abdomen pelvis showed Coats catheter balloon in abnormal position in the prostatic urethra -Coats catheter was exchanged in the ER, Coats catheter was irrigated in the ICU for now his clear urine as compared to bloody and pink colored urine the ER. -continue antibiotics as above, cultures are pending (3) Hematuria: Code(s): R31.9 - Hematuria, unspecified Status: Resolved Assessment and Plan: As above, -hematuria resolved (4) Insulin dependent diabetes mellitus: Status: Chronic Assessment and Plan: Continue sliding scale insulin and Accu-Cheks -may require Lantus the blood sugars elevated (5) Diabetic foot ulcer: Code(s): E11.621 - Type 2 diabetes mellitus with foot ulcer; L97.509 - Non-pressure chronic ulcer of other part of unspecified foot with unspecified severity Status: Acute Assessment and Plan: Continue antibiotics as above -wound care team to evaluate the patient 05/09: X-ray of left foot: No evidence of osteomyelitis 05/09: X-ray of left heel: No evidence of osteomyelitis (6) Altered mental status: Code(s): R41.82 - Altered mental status, unspecified Status: Acute Assessment and Plan: Patient now awake alert talking and following commands. Partially oriented which appears to be his baseline Hold sedative (7) Atrial fibrillation with rapid ventricular response: Code(s): I48.91 - Unspecified atrial fibrillation Status: Acute Assessment and Plan: Patient with AFib RVR with heart rates in the 170s in the ER, started on Cardizem infusion -overnight became hypotensive requiring vasopressors -currently in AFib with heart rate in the 50s and 60s -restart aspirin but will hold Eliquis for now patient has had hematuria, if urine remains clear and hemoglobin is stable will restart -continue to monitor (8) Hypothyroidism: Code(s): E03.9 - Hypothyroidism, unspecified Status: Acute Assessment and Plan: Start levothyroxine Plan Patient has left IJ central venous line appears slightly pulled out as he continues to move his neck. Patient had difficult IV access and attempts to place central venous catheter in right IJ and both femoral sites were unsuccessful. Since patient is off Levophed at this time I will keep central venous catheter for another 12 hours and if patient's remains off Levophed will remove it altogether. For repeat cultures remain negative patient can always get a PICC line in future needed DVT prophylaxis: Cannot place SCDs d
[2023-05-12 12:21] LABS: Glucose Point of Care 186 mg/dl (65-105)
[2023-05-12 12:53] LABS: Vancomycin Trough 23.1 ug/mL (10.0-20.0)
--- NOTE | 2023-05-12 15:01 | PM.IMPN ---
Progress Note: A&P Assessment and Plan (1) Septic shock: Code(s): A41.9 - Sepsis, unspecified organism; R65.21 - Severe sepsis with septic shock Status: Acute (2) Urinary tract infection: Code(s): N39.0 - Urinary tract infection, site not specified Status: Acute (3) Hematuria: Code(s): R31.9 - Hematuria, unspecified Status: Resolved (4) Insulin dependent diabetes mellitus: Status: Chronic (5) Diabetic foot ulcer: Code(s): E11.621 - Type 2 diabetes mellitus with foot ulcer; L97.509 - Non-pressure chronic ulcer of other part of unspecified foot with unspecified severity Status: Acute (6) Altered mental status: Code(s): R41.82 - Altered mental status, unspecified Status: Acute (7) Atrial fibrillation with rapid ventricular response: Code(s): I48.91 - Unspecified atrial fibrillation Status: Acute (8) Hypothyroidism: Code(s): E03.9 - Hypothyroidism, unspecified Status: Acute Plan 67-year-old male with history of proximal atrial fibrillation diastolic congestive heart failure insulin-dependent diabetes hypothyroidism hypertension untreated obstructive sleep apnea chronic venous stasis dermatitis indwelling Coats catheter and other comorbidities presented to the ED from [facility] for evaluation after he was found to have blood coming out of his Coats catheter. Also was altered on presentation. He is nonambulatory at baseline and depends on melissa lift for transfer. In the ED was tachycardic and rapid AFib on arrival. Blood pressure stable. Febrile at 1:01 a.m.. WBC 11.5 sodium 131 lactate normal CRP elevated at 6.8. Urine positive for nitrates leukocyte esterase 3+ protein 2+ blood 21-50 RBC greater than 100 WBC 4 +bacteria. Chest x-ray showed mild pulmonary edema cardiomegaly. CT abdomen pelvis showed Coats catheter balloon in abnormal position in prostatic urethra mild pulmonary edema gallbladder distension could be secondary to fasting or acute cholecystitis and cholelithiasis. Coats catheter was exchanged in the ER and had red urine coming from the catheter. He has been started on ceftriaxone for UTI. Also been started on diltiazem drip for rapid AFib. Echo showed EF of 65-70% moderate concentric increased left ventricular wall thickness diastolic function indeterminate small amount of tricuspid regurgitation and atrial fibrillation. Overnight patient started to have low blood pressure and was transferred to the unit central line was placed and started on vasopressors. Diltiazem drip was stopped. Cardiology was consulted. Urology has been consulted. Hematuria has resolved. Blood culture growing Gram-negative darin repeat blood culture on 05/11 ordered. Urine culture Gram negative bacilli. Diabetic foot ulcer wound culture growing Staph aureus and Pseudomonas aeruginosa. Patient on cefepime Flagyl and vancomycin. Zosyn has been started along with vancomycin due to previous culture of E coli resistant to cefepime/ceftriaxone suggestive of ESBL E coli. Flagyl has been discontinued. Diabetic foot ulcer wound care to continue x-ray with no evidence of osteomyelitis Altered mental status likely related to underlying sepsis AFib with RVR Eliquis on hold due to hematuria restart when able. Cardiology consulted Code status full code Subjective Date/time seen: 05/12/23 15:01 Interval history: Chart reviewed. moved out of the ICU today. Remains afebrile. Vital stable. Off Levophed since yesterday. Review of Systems Review of Systems: All systems reviewed & are unremarkable except as noted in HPI and below Exam Narrative: General: Patient is alert, not in acute distress HEENT:? Pupils are equal and reactive, sclera is clear, moist oral mucosa Neck:? Supple Respiratory:? Coarse breath sounds bilaterally no wheezing, adequate air entry Cardiac:? Regularly irregular, rate controlled Abdomen:? Soft, nondistended, ten
[2023-05-12 16:40] LABS: Glucose Point of Care 184 mg/dl (65-105)
[2023-05-12] MEDS: PRAVASTATIN SODIUM 20 MG TABLET 40 MG PO (20:05)
[2023-05-12] MEDS: ACETAMINOPHEN 325 MG TABLET 650 MG PO (20:05)
[2023-05-12] MEDS: VANCOMYCIN 1,500 MG/NS 500 ML 1,500 MG/500 ML BAG 250 MG IVPB (20:05)
[2023-05-13] VITALS (10 sets, daily range): BP systolic 141–162; BP diastolic 65–108; PULSE 71–106; RESP 13–19; TEMP 36.7–36.9; O2SAT 96–99
[2023-05-13] MEDS: CENTRAL LINE FLUSH 10 ML IV PUSH (04:34)
[2023-05-13] MEDS: PIPERACILLIN/TAZ 4.5G/NS 100ML 4.5 GM/100 ML BAG IVPB ×2 (04:34→12:01)
[2023-05-13] MEDS: LEVOTHYROXINE SODIUM 100 MCG TABLET PO (04:34)
[2023-05-13 04:48] LABS: Hematocrit 34.9 % (42.0-52.0); Hemoglobin 10.4 g/dL (14.0-18.0); Mean Corpuscular HGB Conc 29.8 g/dl (32-36); Mean Corpuscular Hemoglobin 27.1 pg (26-34); Mean Corpuscular Volume 90.9 fl (80-100); Mean Platelet Volume 9.7 fl (7.4-10.4); Platelet Count Result 208 k/mm3 (150-375); Red Blood Count 3.84 M/mm3 (4.6-6.20); Red Cell Distribution Width 14.8 % (11.5-14.5); White Blood Count 7.1 K/mm3 (4.5-10.0)
[2023-05-13 05:06] LABS: Alanine Aminotransferase 12 U/L (6-50); Albumin Level 2.9 g/dL (3.5-5.1); Alkaline Phosphatase 78 U/L (38-126); Anion Gap 5 mmol/L (8-16); Aspartate Amino Transferase 22 U/L (17-59); Bilirubin,Total 0.4 mg/dL (0.2-1.3); Blood Urea Nitrogen 14 mg/dL (9-20); Calcium 9.1 mg/dL (8.4-10.2); Carbon Dioxide 23 mmol/L (22-30); Chloride 104 mmol/L (98-107); Estimated CRCL calculation 108 ml/min; Estimated Glomerular Filt Rate > 60; Glucose 178 mg/dL (65-110); Magnesium 1.8 mg/dL (1.6-2.3); Potassium 3.7 mmol/L (3.4-5.0); Sodium 132 mmol/L (137-145)
[2023-05-13 07:40] LABS: Glucose Point of Care 180 mg/dl (65-105)
[2023-05-13] MEDS: buPROPion HCL XL (24 HR) 150 MG TABCR 300 MG PO (08:07)
[2023-05-13] MEDS: FAMOTIDINE 20 MG TABLET PO (08:07)
[2023-05-13] MEDS: ASPIRIN 81 MG ENTERIC TABLET PO (08:07)
--- NOTE | 2023-05-13 09:20 | PM.IMPN ---
Progress Note: A&P Assessment and Plan (1) Septic shock: Code(s): A41.9 - Sepsis, unspecified organism; R65.21 - Severe sepsis with septic shock Status: Acute Assessment and Plan: Patient was transferred from intermediate Unit to ICU for hypotension, received a total of 3-4 L of fluid since admission -refractory hypotension required central line insertion and Levophed -05/09:? CT scan of the abdomen and pelvis: Coats catheter balloon in?abnormal position in the prostatic urethra, mild pulmonary edema, gallbladder distention may be 2nd fasting acute cholecystitis and cholelithiasis. Coats was replaced and then repositioned. -05/09: UCx growing ESBL EColi -05/09:?BCx growing Gram-negative rods and Gram-positive cocci in pairs -05/10:?Wound culture (left heel) growing Staph aureus -05/10:?Wound culture (left pad) growing Staph aureus and Pseudomonas aeruginosa -05/10: MRSA screen positive -patient was started on cefepime, Flagyl and vancomycin, after looking at previous cultures results cefepime was discontinued and patient was started on Zosyn -BP improved; Levophed weaned off 05/10 Continue vancomycin (05/09) and Zosyn (05/10).? Flagyl stopped. Follow-up on cultures (2) Urinary tract infection: Code(s): N39.0 - Urinary tract infection, site not specified Status: Acute Assessment and Plan: as above (3) Diabetic foot ulcer: Code(s): E11.621 - Type 2 diabetes mellitus with foot ulcer; L97.509 - Non-pressure chronic ulcer of other part of unspecified foot with unspecified severity Status: Acute Assessment and Plan: Patient has chronic lower extremity wounds. Wound Care has been consulted. Wounds are most likely the etiology of his septicemia although still waiting on blood culture results. Add Eucerin cream to improve skin integrity. (4) Hematuria: Code(s): R31.9 - Hematuria, unspecified Status: Resolved Assessment and Plan: CT scan showed Coats within prostatic urethra on admission probably the etiology of his bleeding. Coats catheter was exchanged since admission. Urine is clear. Urology following. Appreciate their input. (5) Insulin dependent diabetes mellitus: Status: Chronic Assessment and Plan: The patient's blood glucose was reviewed on 3/13 Glucose remains reasonably well controlled. Continue AccuCheks covering with sliding scale. Hypoglycemia protocol available as needed. Continue to monitor (6) Altered mental status: Code(s): R41.82 - Altered mental status, unspecified Status: Acute Assessment and Plan: [place] related to septicemia. He also has underlying dementia and oriented x2 chronically CT brain 05/10 showing no acute findings but does show atrophy Patient back to baseline per family Symptoms have resolved Follow (7) Atrial fibrillation with rapid ventricular response: Code(s): I48.91 - Unspecified atrial fibrillation Status: Acute Assessment and Plan: Patient with chronic AFib. He is normally on Eliquis and metoprolol. Metoprolol held due to HoTN Eliquis held due to bleeding Still bleeding some BP better so will add low dose metoprolol Continue to monitor on tele (8) Hypothyroidism: Code(s): E03.9 - Hypothyroidism, unspecified Status: Acute Assessment and Plan: TSH normal. Continue Syhntroid Plan DVT prophylaxis - SCDs Code status - full Subjective Date/time seen: 05/13/23 09:20 Interval history: 67yo male with pAFib, dCHF, DM, HTN, untreated JUN, chronic venous stasis dermatitis, chronic indwelling Coats catheter, and dementia here for blood coming out around his Coats catheter. Assuming care. Chart reviewed. Patient is alert but confused. Patient has chronic confusion and patient's feels the patient is back to his baseline. He denies any chest pain, cough or foot pain. Does feel short of breath. Review
--- NOTE | 2023-05-13 11:21 | P.CDI_ITS ---
CDI Query Clarification Request Documentation in the medical record indicates that this patient has been diagnosed as having the symptoms of ALTERED MENTAL STATUS. Additional findings also documented in the medical record: Infection: UTI, DM foot ulcer, Severe Sepsis with septic shock 05/10/23 Urine Culture - > 100,00 E. Coli 05/10/23 Blood culture - gram negative bacilli isolated/ Gram positive cocci in pairs. 05/11/23 Wound culture- staphylococcus aureus/ pseudomonas aeruginosa Patient started on: Zosyn 4.5 gm Q 6hrs and Vancomycin 1500 mg Q 18 hrs. (6) Altered mental status: ?Code(s): R41.82 - Altered mental status, unspecified ?Status:?Acute ?Assessment and Plan: [place] related to septicemia. He also has underlying dementia and oriented x2 chronically CT brain 05/10 showing no acute findings but does show atrophy Patient back to baseline per family Symptoms have resolved Follow History of Present Illness HPI Narrative: 67 years old white male came from [facility] was bleeding around the Coats catheter.? ACCORDING TO HIS THAT HE IS CONFUSED, NORMALLY HE IS AWAKE, ALERT AND TALKATIVE BUT CURRENTLY HIS RESTLESS AND CONFUSED. Based on your medical judgement can you further clarify in the progress notes if these findings associated with altered mental status are due to a definite or suspected underlying neurologic cause such as: * Metabolic Encephalopathy * Altered Mental status without encephalopathy * Other condition ( please specify) * None of the above/ Not applicable
[2023-05-13] MEDS: METOPROLOL TARTRATE 12.5 MG TABLET PO ×2 (12:00→21:30)
[2023-05-13] MEDS: MAGNESIUM OXIDE 400 MG TABLET PO (12:00)
[2023-05-13] MEDS: polyethylene glycoL 3350 17 GM POWD.PACK PO (12:00)
[2023-05-13] MEDS: EUCERIN CREAM 120 GM JAR 1 APPLIC TOPICAL ×2 (12:00→17:15)
[2023-05-13] MEDS: THERAPEUTIC MULTIVITAMINS/MINERALS TAB (*BKC) 1 TABLET PO (12:00)
[2023-05-13 12:05] LABS: Glucose Point of Care 187 mg/dl (65-105)
[2023-05-13] MEDS: VANCOMYCIN 1,500 MG/NS 500 ML 1,500 MG/500 ML BAG 250 MG IVPB (13:21)
[2023-05-13] MEDS: NEOMYCIN/POLYMYXIN/BACITRACIN OINTMENT PACKET 1 PACKET (13:22)
[2023-05-13] MEDS: MEROPENEM 1 GM/NS 100 ML 1 GM/100 ML BAG IVPB ×2 (13:22→21:44)
[2023-05-13 16:29] LABS: Glucose Point of Care 247 mg/dl (65-105)
[2023-05-13] MEDS: INSULIN ASPART (*BKC) 100 UNITS/ML SUB-Q (17:15)
--- NOTE | 2023-05-13 20:09 | PC.NURSE ---
This patient, Taye Marrero Jr., was transferred to [facility] on 05/13/23 at 1950. Personal belongings sent with patient. Report given to RONNIE Lynn. Appropriate documentation sent with patient.
[2023-05-13] MEDS: MELATONIN 5 MG TABLET PO (21:29)
[2023-05-13] MEDS: PRAVASTATIN SODIUM 20 MG TABLET 40 MG PO (21:29)
[2023-05-13 22:16] LABS: Glucose Point of Care 197 mg/dl (65-105)
[2023-05-14] VITALS (11 sets, daily range): BP systolic 137–164; BP diastolic 82–92; PULSE 68–87; RESP 13–19; TEMP 36.2–37.1; O2SAT 94–99
[2023-05-14] MEDS: MEROPENEM 1 GM/NS 100 ML 1 GM/100 ML BAG IVPB ×3 (06:03→21:00)
[2023-05-14] MEDS: LEVOTHYROXINE SODIUM 100 MCG TABLET PO (06:03)
[2023-05-14 07:25] LABS: Glucose Point of Care 182 mg/dl (65-105)
[2023-05-14 07:25] LABS: Hematocrit 38.3 % (42.0-52.0); Hemoglobin 11.7 g/dL (14.0-18.0); Mean Corpuscular HGB Conc 30.5 g/dl (32-36); Mean Corpuscular Hemoglobin 27.1 pg (26-34); Mean Corpuscular Volume 88.7 fl (80-100); Platelet Count Result 258 k/mm3 (150-375); Red Blood Count 4.32 M/mm3 (4.6-6.20); Red Cell Distribution Width 14.6 % (11.5-14.5); White Blood Count 7.7 K/mm3 (4.5-10.0)
[2023-05-14 07:33] LABS: Alanine Aminotransferase 11 U/L (6-50); Albumin Level 3.1 g/dL (3.5-5.1); Alkaline Phosphatase 80 U/L (38-126); Anion Gap 5 mmol/L (8-16); Aspartate Amino Transferase 19 U/L (17-59); Bilirubin,Total 0.6 mg/dL (0.2-1.3); Blood Urea Nitrogen 11 mg/dL (9-20); Calcium 9.4 mg/dL (8.4-10.2); Carbon Dioxide 23 mmol/L (22-30); Chloride 104 mmol/L (98-107); Estimated CRCL calculation 108 ml/min; Estimated Glomerular Filt Rate > 60; Glucose 168 mg/dL (65-110); Magnesium 1.8 mg/dL (1.6-2.3); Potassium 3.6 mmol/L (3.4-5.0); Sodium 132 mmol/L (137-145)
[2023-05-14] MEDS: VANCOMYCIN 1,500 MG/NS 500 ML 1,500 MG/500 ML BAG 250 MG IVPB (08:49)
[2023-05-14] MEDS: ASPIRIN 81 MG ENTERIC TABLET PO (08:52)
[2023-05-14] MEDS: polyethylene glycoL 3350 17 GM POWD.PACK PO (08:52)
[2023-05-14] MEDS: METOPROLOL TARTRATE 12.5 MG TABLET PO (08:52)
[2023-05-14] MEDS: THERAPEUTIC MULTIVITAMINS/MINERALS TAB (*BKC) 1 TABLET PO (08:52)
[2023-05-14] MEDS: FAMOTIDINE 20 MG TABLET PO (08:52)
[2023-05-14] MEDS: buPROPion HCL XL (24 HR) 150 MG TABCR 300 MG PO (08:52)
[2023-05-14] MEDS: EUCERIN CREAM 120 GM JAR 1 APPLIC TOPICAL (08:56)
[2023-05-14 11:31] LABS: Glucose Point of Care 209 mg/dl (65-105)
[2023-05-14] MEDS: INSULIN ASPART (*BKC) 100 UNITS/ML SUB-Q (11:47)
[2023-05-14] MEDS: ACETAMINOPHEN 325 MG TABLET 650 MG PO ×2 (11:48→20:59)
[2023-05-14] MEDS: MAGNESIUM OXIDE 400 MG TABLET PO (11:48)
--- NOTE | 2023-05-14 16:01 | PM.IMPN ---
Progress Note: A&P Assessment and Plan (1) Septic shock: Code(s): A41.9 - Sepsis, unspecified organism; R65.21 - Severe sepsis with septic shock Status: Acute Assessment and Plan: Patient was transferred to ICU for hypotension, received a total of 3-4 L of fluid since admission -refractory hypotension required central line insertion and Levophed -05/09:? CT scan of the abdomen and pelvis: Coats catheter balloon in?abnormal position in the prostatic urethra, mild pulmonary edema, gallbladder distention may be 2nd fasting acute cholecystitis and cholelithiasis. Coats was replaced and then repositioned. -05/09: UCx growing ESBL EColi -05/09:?BCx growing ESBL EColi and Gram-positive cocci in pairs -05/10:?Wound culture (left heel) growing Staph aureus -05/10:?Wound culture (left pad) growing MRSA and Pseudomonas aeruginosa -05/10: MRSA screen positive 05/11: Repeat BCx NGTD -patient was started on cefepime, Flagyl and vancomycin, after looking at previous cultures results cefepime was discontinued and patient was started on Zosyn -BP improved; Levophed weaned off 05/10. Continue vancomycin (05/09); Zosyn (05/10) changed to meropenem (05/12).? Follow-up on cultures (2) Urinary tract infection: Code(s): N39.0 - Urinary tract infection, site not specified Status: Acute Assessment and Plan: Complicated UTI with chronic indwelling Coats. As above (3) Diabetic foot ulcer: Code(s): E11.621 - Type 2 diabetes mellitus with foot ulcer; L97.509 - Non-pressure chronic ulcer of other part of unspecified foot with unspecified severity Status: Acute Assessment and Plan: Patient has chronic lower extremity wounds. Wound Care was consulted. Wounds are most likely the etiology of his septicemia although still waiting on blood culture results. Left foot xray 05/09 showing no evidence of osteomyelitis. Eucerin cream to improve skin integrity. Check left foot MRI to exclude osteomyelitis (4) Hematuria: Code(s): R31.9 - Hematuria, unspecified Status: Resolved Assessment and Plan: CT scan showed Coats within prostatic urethra on admission as seen by CT probably the etiology of his bleeding. Coats catheter was exchanged since admission. Urine is clear. Urology following. Appreciate their input. (5) Insulin dependent diabetes mellitus: Status: Chronic Assessment and Plan: The patient's blood glucose was reviewed on 05/13 Glucose remains reasonably well controlled. Continue AccuCheks covering with sliding scale. Hypoglycemia protocol available as needed. Continue to monitor (6) Altered mental status: Code(s): R41.82 - Altered mental status, unspecified Status: Acute Assessment and Plan: [place] related to septicemia. He also has underlying dementia and oriented x2 chronically CT brain 05/10 showing no acute findings but does show atrophy Patient back to baseline per family [place] AMS related to metabolic encephalopathy Symptoms have resolved Follow (7) Atrial fibrillation with rapid ventricular response: Code(s): I48.91 - Unspecified atrial fibrillation Status: Acute Assessment and Plan: Patient with chronic AFib. He is normally on Eliquis and metoprolol. Metoprolol held due to HoTN Eliquis held due to bleeding Bleeding has stopped and Hgb stable at 11.7 BP was better so we added low dose metoprolol Continue to monitor on tele and advance metoprolol as tolerated. Resume Eliquis (8) Hypothyroidism: Code(s): E03.9 - Hypothyroidism, unspecified Status: Acute Assessment and Plan: TSH normal. Continue Syhntroid Plan DVT prophylaxis - Eliquis, SCDs Code status - full Subjective Date/time seen: 05/14/23 16:01 Interval history: 67yo male with pAFib, dCHF, DM, HTN, untreated JUN, chronic venous stasis dermatitis, chronic indwelling Coats catheter, and dementia here for blood co
[2023-05-14 16:32] LABS: Glucose Point of Care 148 mg/dl (65-105)
[2023-05-14 20:55] LABS: Glucose Point of Care 184 mg/dl (65-105)
[2023-05-14] MEDS: PRAVASTATIN SODIUM 20 MG TABLET 40 MG PO (20:59)
[2023-05-14] MEDS: MELATONIN 5 MG TABLET PO (20:59)
[2023-05-14] MEDS: METOPROLOL TARTRATE 25 MG TABLET PO (20:59)
[2023-05-14] MEDS: APIXABAN 5 MG TABLET PO (20:59)
[2023-05-14] MEDS: INSULIN GLARGINE (*BKC) 100 UNITS/ML SUB-Q (21:00)
[2023-05-15] VITALS (8 sets, daily range): BP systolic 148–155; BP diastolic 77–89; PULSE 63–86; RESP 14–16; TEMP 36.2–36.7; O2SAT 95–100
[2023-05-15] MEDS: VANCOMYCIN 1,500 MG/NS 500 ML 1,500 MG/500 ML BAG 250 MG IVPB ×2 (02:00→20:46)
[2023-05-15 04:00] LABS: Vancomycin Trough 16.6 ug/mL (10.0-20.0)
[2023-05-15] MEDS: MEROPENEM 1 GM/NS 100 ML 1 GM/100 ML BAG IVPB ×3 (06:14→20:56)
[2023-05-15] MEDS: LEVOTHYROXINE SODIUM 100 MCG TABLET PO (06:15)
[2023-05-15 07:28] LABS: Glucose Point of Care 154 mg/dl (65-105)
[2023-05-15 07:52] LABS: Alanine Aminotransferase 13 U/L (6-50); Albumin Level 3.2 g/dL (3.5-5.1); Alkaline Phosphatase 82 U/L (38-126); Anion Gap 3 mmol/L (8-16); Aspartate Amino Transferase 22 U/L (17-59); Bilirubin,Total 0.5 mg/dL (0.2-1.3); Blood Urea Nitrogen 8 mg/dL (9-20); Calcium 9.5 mg/dL (8.4-10.2); Carbon Dioxide 23 mmol/L (22-30); Chloride 106 mmol/L (98-107); Estimated CRCL calculation 141 ml/min; Estimated Glomerular Filt Rate > 60; Glucose 146 mg/dL (65-110); Magnesium 1.8 mg/dL (1.6-2.3); Potassium 3.5 mmol/L (3.4-5.0); Sodium 132 mmol/L (137-145)
[2023-05-15 07:56] LABS: Hemoglobin A1C 8.7 % (<5.7)
[2023-05-15 07:57] LABS: Hematocrit 38.4 % (42.0-52.0); Hemoglobin 12.1 g/dL (14.0-18.0); Mean Corpuscular HGB Conc 31.5 g/dl (32-36); Mean Corpuscular Hemoglobin 27.9 pg (26-34); Mean Corpuscular Volume 88.5 fl (80-100); Platelet Count Result 282 k/mm3 (150-375); Red Blood Count 4.34 M/mm3 (4.6-6.20); Red Cell Distribution Width 14.6 % (11.5-14.5); White Blood Count 8.8 K/mm3 (4.5-10.0)
[2023-05-15] MEDS: buPROPion HCL XL (24 HR) 150 MG TABCR 300 MG PO (08:44)
[2023-05-15] MEDS: polyethylene glycoL 3350 17 GM POWD.PACK PO (08:44)
[2023-05-15] MEDS: ASPIRIN 81 MG ENTERIC TABLET PO (08:44)
[2023-05-15] MEDS: THERAPEUTIC MULTIVITAMINS/MINERALS TAB (*BKC) 1 TABLET PO (08:44)
[2023-05-15] MEDS: METOPROLOL TARTRATE 25 MG TABLET PO (08:44)
[2023-05-15] MEDS: APIXABAN 5 MG TABLET PO ×2 (08:44→20:46)
[2023-05-15] MEDS: FAMOTIDINE 20 MG TABLET PO (08:44)
--- NOTE | 2023-05-15 11:59 | PM.IMPN ---
Progress Note: A&P Assessment and Plan (1) Septic shock: Code(s): A41.9 - Sepsis, unspecified organism; R65.21 - Severe sepsis with septic shock Status: Acute Assessment and Plan: Patient was transferred to ICU for hypotension, received a total of 3-4 L of fluid since admission -refractory hypotension required central line insertion and Levophed -05/09:? CT scan of the abdomen and pelvis: Coats catheter balloon in?abnormal position in the prostatic urethra, mild pulmonary edema, gallbladder distention may be 2nd fasting acute cholecystitis and cholelithiasis. Coats was replaced and then repositioned. -05/09: UCx growing ESBL EColi -05/09:?BCx growing ESBL EColi and Gram-positive cocci in pairs -05/10:?Wound culture (left heel) growing Staph aureus -05/10:?Wound culture (left pad) growing MRSA and Pseudomonas aeruginosa -05/10: MRSA screen positive 05/11: Repeat BCx NGTD -patient was started on cefepime, Flagyl and vancomycin but cefepime changed to Zosyn after looking at previous cultures -BP improved; Levophed weaned off 05/10. Continue vancomycin (05/09); Zosyn (05/10) changed to meropenem (05/12).? Follow-up on cultures (2) Urinary tract infection: Code(s): N39.0 - Urinary tract infection, site not specified Status: Acute Assessment and Plan: Complicated UTI with chronic indwelling Coats. As above (3) Diabetic foot ulcer: Code(s): E11.621 - Type 2 diabetes mellitus with foot ulcer; L97.509 - Non-pressure chronic ulcer of other part of unspecified foot with unspecified severity Status: Acute Assessment and Plan: Patient has chronic lower extremity wounds. Wound Care was consulted. Wounds are most likely the etiology of his septicemia although still waiting on blood culture results. Left foot xray 05/09 showing no evidence of osteomyelitis. Eucerin cream to improve skin integrity. Left foot MRI ordered to exclude osteomyelitis (4) Hematuria: Code(s): R31.9 - Hematuria, unspecified Status: Resolved Assessment and Plan: CT scan showed Coats within prostatic urethra on admission as seen by CT [place] the bleeding related to ureteral trauma. Coats catheter was exchanged and placed properly since admission Urine is clear. No evidence of further bleeding. Eliquis resumed and tolerating well. Hgb stable. Urology following. Appreciate their input. (5) Insulin dependent diabetes mellitus: Status: Chronic Assessment and Plan: The patient's blood glucose was reviewed on 05/14 Glucose remains reasonably well controlled. Continue AccuCheks covering with sliding scale. Hypoglycemia protocol available as needed. Continue to monitor (6) Altered mental status: Code(s): R41.82 - Altered mental status, unspecified Status: Acute Assessment and Plan: [place] related to septicemia. He also has underlying dementia and oriented x2 chronically CT brain 05/10 showing no acute findings but does show atrophy Patient back to baseline per family [place] AMS related to metabolic encephalopathy Symptoms have resolved Follow (7) Atrial fibrillation with rapid ventricular response: Code(s): I48.91 - Unspecified atrial fibrillation Status: Acute Assessment and Plan: Patient with chronic AFib. He is normally on Eliquis and metoprolol. Metoprolol held due to HoTN Eliquis held due to bleeding Bleeding has stopped and Hgb stable 11-12 BP was better so we added low dose metoprolol Continue to monitor on tele and advance metoprolol as tolerated to home dose. Resume Eliquis (8) Hypothyroidism: Code(s): E03.9 - Hypothyroidism, unspecified Status: Acute Assessment and Plan: TSH normal. Continue Syhntroid Plan DVT prophylaxis - Eliquis, SCDs Code status - full Subjective Date/time seen: 05/15/23 11:59 Interval history: 67yo male with pAFib, dCHF, DM, HTN, untreated JUN, chronic venous
[2023-05-15 12:44] LABS: Glucose Point of Care 151 mg/dl (65-105)
[2023-05-15] MEDS: MAGNESIUM OXIDE 400 MG TABLET PO (13:23)
[2023-05-15 16:32] LABS: Glucose Point of Care 133 mg/dl (65-105)
[2023-05-15 20:33] LABS: Glucose Point of Care 189 mg/dl (65-105)
[2023-05-15] MEDS: MELATONIN 5 MG TABLET PO (20:46)
[2023-05-15] MEDS: ACETAMINOPHEN 325 MG TABLET 650 MG PO (20:47)
[2023-05-15] MEDS: PRAVASTATIN SODIUM 20 MG TABLET 40 MG PO (20:47)
[2023-05-15] MEDS: METOPROLOL TARTRATE 50 MG TAB PO (20:47)
[2023-05-15] MEDS: INSULIN GLARGINE (*BKC) 100 UNITS/ML SUB-Q (20:52)
[2023-05-16] VITALS (9 sets, daily range): BP systolic 148–178; BP diastolic 83–98; PULSE 58–89; RESP 14–20; TEMP 36.3–36.6; O2SAT 96–100
[2023-05-16] MEDS: LEVOTHYROXINE SODIUM 100 MCG TABLET PO (06:05)
[2023-05-16] MEDS: MEROPENEM 1 GM/NS 100 ML 1 GM/100 ML BAG IVPB ×3 (06:05→21:45)
[2023-05-16 07:04] LABS: Hematocrit 38.1 % (42.0-52.0); Hemoglobin 11.8 g/dL (14.0-18.0); Mean Corpuscular Hemoglobin 27.4 pg (26-34); Mean Corpuscular Volume 88.4 fl (80-100); Mean Platelet Volume 9.7 fl (7.4-10.4); Platelet Count Result 314 k/mm3 (150-375); Red Blood Count 4.31 M/mm3 (4.6-6.20); Red Cell Distribution Width 14.8 % (11.5-14.5); White Blood Count 9.7 K/mm3 (4.5-10.0)
[2023-05-16 07:11] LABS: Alanine Aminotransferase 13 U/L (6-50); Albumin Level 3.1 g/dL (3.5-5.1); Alkaline Phosphatase 72 U/L (38-126); Anion Gap 6 mmol/L (8-16); Aspartate Amino Transferase 27 U/L (17-59); Bilirubin,Total 0.5 mg/dL (0.2-1.3); Blood Urea Nitrogen 8 mg/dL (9-20); Calcium 9.6 mg/dL (8.4-10.2); Carbon Dioxide 22 mmol/L (22-30); Chloride 106 mmol/L (98-107); Estimated CRCL calculation 139 ml/min; Estimated Glomerular Filt Rate > 60; Glucose 136 mg/dL (65-110); Magnesium 1.8 mg/dL (1.6-2.3); Potassium 3.3 mmol/L (3.4-5.0); Sodium 134 mmol/L (137-145)
--- NOTE | 2023-05-16 07:15 | PM.CNOR ---
Assessment and Plan Assessment and plan (1) Diabetic foot infection: Code(s): E11.628 - Type 2 diabetes mellitus with other skin complications; L08.9 - Local infection of the skin and subcutaneous tissue, unspecified Status: Acute Assessment and Plan: Patient has wounds on his the bottom of his left foot as well as left heel area. His legs are relatively is edematous also got some cellulitis. The no obvious changes are seen on the standard x-rays however the MRI shows question of osteomyelitis. He is really not a surgical candidate for much of anything. He should continue with antibiotics and will ask the wound clinic to see. Unfortunately he will not be an active participant in his care. He is unable to understand or he even follow simple commands. History of Present Illness HPI Consult date: 05/16/23 Chief complaint: UTI, catheter related,AFIB w/RVR Coats Catheter DE Narrative: Patient is presents with sepsis and cholelithiasis. Is noted to have a cellulitis of both legs with edema and some small open wound on the bottom of his left foot and wound on his left heel. Patient is very deaf and is understanding is very limited. Review of Systems Musculoskeletal: Musculoskeletal: Reports arthralgias and Reports joint swelling [facility] Past Medical History Medical History Choledocholithiasis (05/2022) Chronic obstructive pulmonary disease Chronic venous insufficiency Depression Diastolic congestive heart failure Gastroesophageal reflux disease Hyperlipidemia Hypertension Hypothyroidism Insulin dependent diabetes mellitus Kidney stones Obstructive sleep apnea Non-compliant with CPAP. Paroxysmal atrial fibrillation Peripheral neuropathy Surgical History Surgical History History of appendectomy History of back surgery History of cataract extraction History of hemorrhoidectomy History of tonsillectomy and adenoidectomy Family History Family History Sibling Family history of obesity Hypertension Family history of diabetes mellitus in first degree relative Family history of heart disease in male family member before age 55 Patient's sister is in good health Patient's brother is Mother Family history of arthritis Family history of malignant neoplasm Patient's mother is Father Patient's father is Other Malignant neoplasm of prostate Social History Social History (Updated 03/10/24 @ 21:25 by Malorie Jones PA-C) Social History: Surrogate medical decision maker: Marlys Marrero, . Code status: Full code. Smoking packs per day: 1.5 Smoking cigarettes per day: 30.0 Years smoked: 15 Smoking pack-years: 22.50 Smoking status: Former smoker Tobacco type: cigarettes Second hand tobacco smoke exposure: No Alcohol intake: never Substance use: never Substance use type: does not use Lack of Transportation: No Lack of Food: Never True Current Housing: I Have Housing Concerned About Future Housing: No Difficulty Paying Gas/Electric Bills: No Difficulty Paying for Meds: No Currently Unemployed: No Education: High School Diploma/GED Difficulty w/ Childcare or Family Care: No Living arrangements: [facility] Additional living arrangements comments: Resident at [facility]. to Marlys. They have 2 sons. 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 Spiritual care concerns: No Agree to blood products: Yes Meds Home Medications and Allergies Home Medications Medication Instructions Recorded Confirmed Type gabapentin 300 mg capsule 300 mg PO QID 02/15/21 05/11/23 History ipratropium 0.5 mg-albuterol 3 mg 3 ml inhalation Q4H PRN Wh
[2023-05-16 07:24] LABS: Glucose Point of Care 140 mg/dl (65-105)
[2023-05-16] MEDS: buPROPion HCL XL (24 HR) 150 MG TABCR 300 MG PO (08:27)
[2023-05-16] MEDS: FAMOTIDINE 20 MG TABLET PO (08:28)
[2023-05-16] MEDS: THERAPEUTIC MULTIVITAMINS/MINERALS TAB (*BKC) 1 TABLET PO (08:28)
[2023-05-16] MEDS: METOPROLOL TARTRATE 50 MG TAB PO ×2 (08:28→20:39)
[2023-05-16] MEDS: ASPIRIN 81 MG ENTERIC TABLET PO (08:28)
[2023-05-16] MEDS: APIXABAN 5 MG TABLET PO ×2 (08:28→20:39)
[2023-05-16] MEDS: polyethylene glycoL 3350 17 GM POWD.PACK PO (08:29)
[2023-05-16] MEDS: POTASSIUM CHLORIDE 20 MEQ ER TABLET 40 MEQ PO (08:33)
[2023-05-16 11:44] LABS: Glucose Point of Care 143 mg/dl (65-105)
[2023-05-16] MEDS: MAGNESIUM OXIDE 400 MG TABLET PO (12:31)
[2023-05-16] MEDS: VANCOMYCIN 1,500 MG/NS 500 ML 1,500 MG/500 ML BAG 250 MG IVPB (14:05)
--- NOTE | 2023-05-16 14:43 | PM.IMPN ---
Progress Note: A&P Assessment and Plan (1) Septic shock: Code(s): A41.9 - Sepsis, unspecified organism; R65.21 - Severe sepsis with septic shock Status: Acute Assessment and Plan: Patient was transferred to ICU for hypotension, received a total of 3-4 L of fluid since admission -refractory hypotension required central line insertion and Levophed -05/09:? CT scan of the abdomen and pelvis: Coats catheter balloon in?abnormal position in the prostatic urethra, mild pulmonary edema, gallbladder distention may be 2nd fasting acute cholecystitis and cholelithiasis. Coats was replaced and then repositioned. -05/09: UCx growing ESBL EColi -05/09:?BCx growing ESBL EColi and Gram-positive cocci in pairs -05/10:?Wound culture (left heel) growing MRSA -05/10:?Wound culture (left pad) growing MRSA and Pseudomonas aeruginosa -05/10: MRSA screen positive 05/11: Repeat BCx NGTD Patient was started on cefepime, Flagyl and vancomycin but cefepime changed to Zosyn after looking at previous cultures -BP improved; Levophed weaned off 05/10. Continue vancomycin (05/09); Zosyn (05/10) changed to meropenem (05/12).? Follow-up on cultures. Called lab but still no results on BCx result (2) Diabetic foot ulcer: Code(s): E11.621 - Type 2 diabetes mellitus with foot ulcer; L97.509 - Non-pressure chronic ulcer of other part of unspecified foot with unspecified severity Status: Acute Assessment and Plan: Patient has chronic lower extremity wounds. Wound Care was consulted. UTI most likely the etiology of his septicemia although still waiting on blood culture results. Left foot xray 05/09 showing no evidence of osteomyelitis. Eucerin cream to improve skin integrity. Left foot MRI ordered showing skin ulceration with underlying early osteomyelitis lateral aspect of the posterior tuberosity of the calcaneus. Ortho consulted and recommended Abx and wound dressing changes. Family wishing to treat so plan for [address] PICC line. Check arterial doppler (3) Osteomyelitis: Code(s): M86.9 - Osteomyelitis, unspecified Status: Acute Assessment and Plan: As above (4) Urinary tract infection: Code(s): N39.0 - Urinary tract infection, site not specified Status: Acute Assessment and Plan: Complicated UTI with chronic indwelling Coats. As above (5) Hematuria: Code(s): R31.9 - Hematuria, unspecified Status: Resolved Assessment and Plan: CT scan showed Coats within prostatic urethra on admission as seen by CT [place] the bleeding related to ureteral trauma. Coats catheter was exchanged and placed properly since admission Urine is clear. No evidence of further bleeding. Eliquis resumed and tolerating well. Hgb stable. Urology following. Appreciate their input. (6) Insulin dependent diabetes mellitus: Status: Chronic Assessment and Plan: The patient's blood glucose was reviewed on 05/15 Glucose remains reasonably well controlled. Continue AccuCheks covering with sliding scale. Hypoglycemia protocol available as needed. Continue to monitor (7) Altered mental status: Code(s): R41.82 - Altered mental status, unspecified Status: Acute Assessment and Plan: [place] related to septicemia. He also has underlying dementia and oriented x2 chronically CT brain 05/10 showing no acute findings but does show atrophy Patient back to baseline per family [place] AMS related to metabolic encephalopathy Symptoms have resolved Follow (8) Atrial fibrillation with rapid ventricular response: Code(s): I48.91 - Unspecified atrial fibrillation Status: Acute Assessment and Plan: Patient with chronic AFib. He is normally on Eliquis and metoprolol. Metoprolol held due to HoTN Eliquis held due to bleeding Bleeding has stopped and Hgb stable 11-12 BP was better so we added low dose metoprolol Metoprolol advanced to home dose.
[2023-05-16] MEDS: LIDOCAINE HCL 1% PF INJ 5 ML VIAL INFILTRATE (15:45)
[2023-05-16 16:58] LABS: Glucose Point of Care 158 mg/dl (65-105)
[2023-05-16] MEDS: FUROSEMIDE INJ 40 MG/4 ML VIAL IV PUSH (18:17)
[2023-05-16 20:27] LABS: Glucose Point of Care 246 mg/dl (65-105)
[2023-05-16] MEDS: INSULIN GLARGINE (*BKC) 100 UNITS/ML SUB-Q (20:38)
[2023-05-16] MEDS: PRAVASTATIN SODIUM 20 MG TABLET 40 MG PO (20:39)
[2023-05-16] MEDS: ACETAMINOPHEN 325 MG TABLET 650 MG PO (20:39)
[2023-05-16] MEDS: MELATONIN 5 MG TABLET PO (20:40)
[2023-05-16] MEDS: CENTRAL LINE FLUSH 10 ML IV PUSH (21:45)
[2023-05-17 04:30] VITALS: BP 152/88; PULSE 66; RESP 18; TEMP 36.5; O2SAT 98
[2023-05-17] MEDS: MEROPENEM 1 GM/NS 100 ML 1 GM/100 ML BAG IVPB ×3 (05:20→21:22)
[2023-05-17] MEDS: CENTRAL LINE FLUSH 10 ML IV PUSH ×3 (05:21→21:36)
[2023-05-17] MEDS: LEVOTHYROXINE SODIUM 100 MCG TABLET PO (05:21)
[2023-05-17 06:35] LABS: Hematocrit 38.7 % (42.0-52.0); Hemoglobin 11.9 g/dL (14.0-18.0); Mean Corpuscular HGB Conc 30.7 g/dl (32-36); Mean Corpuscular Hemoglobin 27.2 pg (26-34); Mean Corpuscular Volume 88.4 fl (80-100); Mean Platelet Volume 9.3 fl (7.4-10.4); Platelet Count Result 359 k/mm3 (150-375); Red Blood Count 4.38 M/mm3 (4.6-6.20); White Blood Count 10.8 K/mm3 (4.5-10.0)
[2023-05-17 06:56] LABS: Alanine Aminotransferase 13 U/L (6-50); Albumin Level 3.2 g/dL (3.5-5.1); Alkaline Phosphatase 80 U/L (38-126); Anion Gap 3 mmol/L (8-16); Aspartate Amino Transferase 23 U/L (17-59); Bilirubin,Total 0.4 mg/dL (0.2-1.3); Blood Urea Nitrogen 8 mg/dL (9-20); Calcium 9.7 mg/dL (8.4-10.2); Carbon Dioxide 27 mmol/L (22-30); Chloride 104 mmol/L (98-107); Estimated CRCL calculation 121 ml/min; Estimated Glomerular Filt Rate > 60; Glucose 159 mg/dL (65-110); Magnesium 1.7 mg/dL (1.6-2.3); Potassium 3.6 mmol/L (3.4-5.0); Sodium 134 mmol/L (137-145)
[2023-05-17 07:52] LABS: Glucose Point of Care 151 mg/dl (65-105)
[2023-05-17] MEDS: VANCOMYCIN 1,500 MG/NS 500 ML 1,500 MG/500 ML BAG 250 MG IVPB (08:23)
[2023-05-17] MEDS: APIXABAN 5 MG TABLET PO ×2 (08:24→21:17)
[2023-05-17] MEDS: ASPIRIN 81 MG ENTERIC TABLET PO (08:24)
[2023-05-17] MEDS: buPROPion HCL XL (24 HR) 150 MG TABCR 300 MG PO (08:24)
[2023-05-17] MEDS: FAMOTIDINE 20 MG TABLET PO (08:24)
[2023-05-17] MEDS: polyethylene glycoL 3350 17 GM POWD.PACK PO (08:24)
[2023-05-17] MEDS: METOPROLOL TARTRATE 50 MG TAB PO ×2 (08:24→21:17)
[2023-05-17] MEDS: THERAPEUTIC MULTIVITAMINS/MINERALS TAB (*BKC) 1 TABLET PO (08:25)
--- NOTE | 2023-05-17 10:36 | PM.IMPN ---
Progress Note: A&P Assessment and Plan (1) Septic shock: Code(s): A41.9 - Sepsis, unspecified organism; R65.21 - Severe sepsis with septic shock <Aleida Maharaj Student - Last Filed: 05/17/23 13:55> Status: Acute <Aleida Maharaj Student - Last Filed: 05/17/23 13:55> Assessment and Plan: Patient was transferred to ICU for hypotension, received a total of 3-4 L of fluid since admission -refractory hypotension required central line insertion and Levophed -05/09:? CT scan of the abdomen and pelvis: Coats catheter balloon in?abnormal position in the prostatic urethra, mild pulmonary edema, gallbladder distention may be 2nd fasting acute cholecystitis and cholelithiasis. Coats was replaced and then repositioned. -05/09: UCx growing ESBL EColi -05/09:?BCx growing ESBL EColi and Gram-positive cocci in pairs-- follow-up on speciation -05/10:?Wound culture (left heel) growing MRSA -05/10:?Wound culture (left pad) growing MRSA and Pseudomonas aeruginosa -05/10: MRSA screen positive -BP improved; Levophed weaned off 05/10. 05/11: Repeat BCx NGTD Patient was started on cefepime, Flagyl, and vancomycin Cefepime changed to Zosyn after looking at previous cultures Zosyn (05/10) changed to meropenem (05/12) WBC mildly elevated today; 9.7 --> 10.8 (05/16) Continue Vancomycin and meropenem <Aleida Maharaj, Student - Last Filed: 05/17/23 13:55> (2) Diabetic foot ulcer: Code(s): E11.621 - Type 2 diabetes mellitus with foot ulcer; L97.509 - Non-pressure chronic ulcer of other part of unspecified foot with unspecified severity <Aleida Maharaj, Student - Last Filed: 05/17/23 13:55> Status: Acute <Aleida Maharaj Student - Last Filed: 05/17/23 13:55> Assessment and Plan: Patient has chronic lower extremity wounds. Wound Care was consulted. UTI most likely the etiology of his septicemia although still waiting on blood culture results. Left foot xray 05/09 showing no evidence of osteomyelitis. Left foot MRI ordered showing skin ulceration with underlying early osteomyelitis lateral aspect of the posterior tuberosity of the calcaneus. Ortho consulted and recommended Abx and wound dressing changes. Family wishing to treat so plan for 6 weeks of treatment. PICC line placed 05/15 Continue Eucerin cream application to improve skin integrity. Follow up arterial doppler <Aleida Maharaj, Student - Last Filed: 05/17/23 13:55> (3) Osteomyelitis: Code(s): M86.9 - Osteomyelitis, unspecified <Aleida Maharaj, Student - Last Filed: 05/17/23 13:55> Status: Acute <Aleida Maharaj, Student - Last Filed: 05/17/23 13:55> Assessment and Plan: As above <Aleida Maharaj, Student - Last Filed: 05/17/23 13:55> (4) Urinary tract infection: Code(s): N39.0 - Urinary tract infection, site not specified <Aleida Maharaj, Student - Last Filed: 05/17/23 13:55> Status: Acute <Aleida Maharaj, Student - Last Filed: 05/17/23 13:55> Assessment and Plan: Complicated UTI with chronic indwelling Coats. As above <Aleida Maharaj, Student - Last Filed: 05/17/23 13:55> (5) Hematuria: Code(s): R31.9 - Hematuria, unspecified <Aleida Maharaj, Student - Last Filed: 05/17/23 13:55> Status: Resolved <Aleida Maharaj, Student - Last Filed: 05/17/23 13:55> Assessment and Plan: CT scan showed Coats within prostatic urethra on admission as seen by CT [place] the bleeding related to ureteral trauma. Coats catheter was exchanged and placed properly since admission Urine is clear. No evidence of further bleeding. Eliquis resumed and tolerating well. Hgb stable. Urology following. Appreciate their input. <Aleida Maharaj, Student - Last Filed: 05/17/23 13:55> (6) Insulin dependent diabetes mellitus: Status: Chronic <Aleida Maharaj, Student - [place]
[2023-05-17] MEDS: MAGNESIUM OXIDE 400 MG TABLET PO (11:11)
[2023-05-17 11:51] LABS: Glucose Point of Care 165 mg/dl (65-105)
[2023-05-17 14:00] VITALS: BP 165/91; PULSE 71; RESP 20; TEMP 36.1; O2SAT 97
[2023-05-17] MEDS: ACETAMINOPHEN 325 MG TABLET 650 MG PO ×2 (15:23→21:17)
[2023-05-17 16:32] LABS: Glucose Point of Care 180 mg/dl (65-105)
[2023-05-17 20:00] VITALS: O2SAT 96
[2023-05-17 20:19] VITALS: BP 159/89; PULSE 90; RESP 20; TEMP 36.3; O2SAT 96
[2023-05-17] MEDS: INSULIN GLARGINE (*BKC) 100 UNITS/ML SUB-Q (21:14)
[2023-05-17] MEDS: PRAVASTATIN SODIUM 20 MG TABLET 40 MG PO (21:16)
[2023-05-17] MEDS: MELATONIN 5 MG TABLET PO (21:17)
[2023-05-17 21:23] LABS: Glucose Point of Care 170 mg/dl (65-105)
[2023-05-18] MEDS: VANCOMYCIN 1,500 MG/NS 500 ML 1,500 MG/500 ML BAG 250 MG IVPB ×2 (02:07→21:23)
[2023-05-18 05:12] VITALS: BP 162/97; PULSE 72; RESP 16; TEMP 36.5; O2SAT 100
[2023-05-18] MEDS: LEVOTHYROXINE SODIUM 100 MCG TABLET PO (05:38)
[2023-05-18] MEDS: MEROPENEM 1 GM/NS 100 ML 1 GM/100 ML BAG IVPB ×3 (05:38→23:30)
[2023-05-18] MEDS: CENTRAL LINE FLUSH 10 ML IV PUSH ×3 (05:38→23:30)
[2023-05-18 06:12] LABS: Anion Gap 2 mmol/L (8-16); Basophils Absolute Auto 0.1 K/mm3 (0.0-0.1); Basophils Percent Auto 0.6 % (0.2-1.2); Blood Urea Nitrogen 8 mg/dL (9-20); Calcium 9.6 mg/dL (8.4-10.2); Carbon Dioxide 26 mmol/L (22-30); Chloride 107 mmol/L (98-107); Eosinophils Absolute Auto 0.8 K/mm3 (0-0.3); Eosinophils Percent Auto 8.3 % (0-4.4); Estimated CRCL calculation 139 ml/min; Estimated Glomerular Filt Rate > 60; Glucose 146 mg/dL (65-110); Hematocrit 38.5 % (42.0-52.0); Hemoglobin 11.8 g/dL (14.0-18.0); Immature Granulocyte Absolute 0.04 K/mm3 (0.00-0.031); Immature Granulocyte Percent A 0.4 % (0-0.5); Lymphocytes Absolute Auto 1.15 K/mm3 (0.9-3.2); Lymphocytes Percent Auto 11.3 % (18.3-44.2); Mean Corpuscular HGB Conc 30.6 g/dl (32-36); Mean Corpuscular Hemoglobin 27.2 pg (26-34); Mean Corpuscular Volume 88.7 fl (80-100); Mean Platelet Volume 9.6 fl (7.4-10.4); Monocytes Percent Auto 9.7 % (2.6-8.5); Neutrophils Absolute Auto 7.1 K/mm3 (1.3-6.7); Neutrophils Percent Auto 69.7 % (45.5-73.1); Platelet Count Result 345 k/mm3 (150-375); Potassium 3.5 mmol/L (3.4-5.0); Red Blood Count 4.34 M/mm3 (4.6-6.20); Red Cell Distribution Width 15.1 % (11.5-14.5); Sodium 135 mmol/L (137-145); White Blood Count 10.2 K/mm3 (4.5-10.0)
--- NOTE | 2023-05-18 07:33 | PCWOUND ---
[facility] NOTE received referral to see patient for wounds on left foot. Wounds have been assessed by [facility] and patient has wound care orders in place.
[2023-05-18 07:34] LABS: Glucose Point of Care 160 mg/dl (65-105)
[2023-05-18 08:00] VITALS: PULSE 69; RESP 12; O2SAT 100
[2023-05-18] MEDS: METOPROLOL TARTRATE 50 MG TAB PO (08:47)
[2023-05-18] MEDS: THERAPEUTIC MULTIVITAMINS/MINERALS TAB (*BKC) 1 TABLET PO (08:47)
[2023-05-18] MEDS: FAMOTIDINE 20 MG TABLET PO (08:47)
[2023-05-18] MEDS: ASPIRIN 81 MG ENTERIC TABLET PO (08:47)
[2023-05-18] MEDS: polyethylene glycoL 3350 17 GM POWD.PACK PO (08:47)
[2023-05-18] MEDS: APIXABAN 5 MG TABLET PO ×2 (08:47→21:26)
[2023-05-18] MEDS: GABAPENTIN 300 MG CAPSULE PO ×4 (08:47→21:26)
[2023-05-18] MEDS: buPROPion HCL XL (24 HR) 150 MG TABCR 300 MG PO (08:47)
[2023-05-18 11:23] LABS: Glucose Point of Care 149 mg/dl (65-105)
[2023-05-18] MEDS: VALSARTAN 20 MG TABLET PO (12:11)
[2023-05-18] MEDS: MAGNESIUM OXIDE 400 MG TABLET PO (12:11)
[2023-05-18] MEDS: FUROSEMIDE 20 MG TABLET PO (12:12)
[2023-05-18] MEDS: ACETAMINOPHEN 325 MG TABLET 650 MG PO (12:13)
--- NOTE | 2023-05-18 12:29 | PM.IMPN ---
Progress Note: A&P Assessment and Plan (1) Septic shock: Code(s): A41.9 - Sepsis, unspecified organism; R65.21 - Severe sepsis with septic shock <Aleida Maharaj, Student - Last Filed: 05/18/23 16:11> Status: Acute <Aleida Maharaj Student - Last Filed: 05/18/23 16:11> Assessment and Plan: Patient was transferred to ICU for hypotension, received a total of 3-4 L of fluid since admission -refractory hypotension required central line insertion and Levophed -05/09:? CT scan of the abdomen and pelvis: Coats catheter balloon in?abnormal position in the prostatic urethra, mild pulmonary edema, gallbladder distention may be 2nd fasting acute cholecystitis and cholelithiasis. Coats was replaced and then repositioned. -05/09: UCx growing ESBL EColi -05/09:?BCx growing ESBL EColi and Gram-positive cocci -- speciated as entercoccus gallinarum -05/10:?Wound culture (left heel) growing MRSA -05/10:?Wound culture (left pad) growing MRSA and Pseudomonas aeruginosa -05/10: MRSA screen positive -BP improved; Levophed weaned off 05/10. 05/11: Repeat BCx NGTD Patient was started on cefepime, Flagyl, and vancomycin Cefepime changed to Zosyn after looking at previous cultures Zosyn (05/10) changed to meropenem (05/12) WBC decreased today to 10.2 (05/17) Infectious disease consult, we appreciate their recs Continue Vancomycin and meropenem <Aleida Maharaj, Student - Last Filed: 05/18/23 16:11> Patient was transferred to ICU for hypotension, received a total of 3-4 L of fluid since admission -refractory hypotension required central line insertion and Levophed -05/09:? CT scan of the abdomen and pelvis: Coats catheter balloon in?abnormal position in the prostatic urethra, mild pulmonary edema, gallbladder distention may be 2nd fasting acute cholecystitis and cholelithiasis. Coats was replaced and then repositioned. -05/09: UCx growing ESBL EColi -05/09:?BCx growing ESBL EColi and Gram-positive cocci -- speciated as entercoccus gallinarum -05/10:?Wound culture (left heel) growing MRSA -05/10:?Wound culture (left pad) growing MRSA and Pseudomonas aeruginosa -05/10: MRSA screen positive -BP improved; Levophed weaned off 05/10. 05/11: Repeat BCx NGTD Patient was started on cefepime, Flagyl, and vancomycin Cefepime changed to Zosyn after looking at previous cultures Zosyn (05/10) changed to meropenem (05/12) WBC decreased today to 10.2 (05/17) PharmD Infectious disease consult, we appreciate their recs Continue meropenem and Vancomycin. Interaction with Linezolid <Lloyd Prasad MD - Last Filed: 05/18/23 17:34> (2) Diabetic foot ulcer: Code(s): E11.621 - Type 2 diabetes mellitus with foot ulcer; L97.509 - Non-pressure chronic ulcer of other part of unspecified foot with unspecified severity <Aleida Maharaj Student - Last Filed: 05/18/23 16:11> Status: Acute <Aleida Maharaj Student - Last Filed: 05/18/23 16:11> Assessment and Plan: Patient has chronic lower extremity wounds. Wound Care was consulted. UTI most likely the etiology of his septicemia although still waiting on blood culture results. Left foot xray 05/09 showing no evidence of osteomyelitis. Left foot MRI ordered showing skin ulceration with underlying early osteomyelitis lateral aspect of the posterior tuberosity of the calcaneus. Ortho consulted and recommended Abx and wound dressing changes. Family wishing to treat so plan for 6 weeks of treatment. PICC line placed 05/15 Continue Eucerin cream application to improve skin integrity. Bilateral ABIs are normal. <Aleida Maharaj Student - Last Filed: 05/18/23 16:11> (3) Osteomyelitis: Code(s): M86.9 - Osteomyelitis, unspecified <Aleida Maharaj Student - Last Filed: 05/18/23 16:11> Status: Acute <Aleida Maharaj Student - Last Filed: 05/18/23 16:11> Assessment and Plan: As above <Aleida Maharaj
[2023-05-18 12:53] VITALS: BMI 39.7
[2023-05-18 14:00] VITALS: BP 132/63; PULSE 69; RESP 12; TEMP 36.2; O2SAT 100
[2023-05-18 16:07] LABS: Glucose Point of Care 174 mg/dl (65-105)
[2023-05-18 20:46] LABS: Vancomycin Trough 17.7 ug/mL (10.0-20.0)
[2023-05-18 20:51] LABS: Glucose Point of Care 163 mg/dl (65-105)
[2023-05-18] MEDS: SODIUM CHLORIDE 0.9% IV 100 ML (21:23)
[2023-05-18] MEDS: PRAVASTATIN SODIUM 20 MG TABLET 40 MG PO (21:26)
[2023-05-18] MEDS: MELATONIN 5 MG TABLET PO (21:26)
[2023-05-18 21:28] VITALS: PULSE 52
[2023-05-18 21:31] VITALS: BP 151/63; PULSE 63; RESP 18; TEMP 36.1; O2SAT 95
[2023-05-18] MEDS: INSULIN GLARGINE (*BKC) 100 UNITS/ML SUB-Q (21:44)
[2023-05-19] MEDS: MEROPENEM 1 GM/NS 100 ML 1 GM/100 ML BAG IVPB ×3 (05:40→22:15)
[2023-05-19] MEDS: CENTRAL LINE FLUSH 10 ML IV PUSH ×3 (05:41→22:21)
[2023-05-19] MEDS: LEVOTHYROXINE SODIUM 100 MCG TABLET PO (05:41)
[2023-05-19 06:00] VITALS: BP 155/61; PULSE 57; RESP 18; TEMP 36.1; O2SAT 99
[2023-05-19 06:13] LABS: Basophils Absolute Auto 0.1 K/mm3 (0.0-0.1); Basophils Percent Auto 0.8 % (0.2-1.2); Eosinophils Absolute Auto 0.8 K/mm3 (0-0.3); Hemoglobin 12.1 g/dL (14.0-18.0); Immature Granulocyte Absolute 0.03 K/mm3 (0.00-0.031); Immature Granulocyte Percent A 0.4 % (0-0.5); Lymphocytes Absolute Auto 1.49 K/mm3 (0.9-3.2); Lymphocytes Percent Auto 19.6 % (18.3-44.2); Mean Corpuscular HGB Conc 30.3 g/dl (32-36); Mean Corpuscular Hemoglobin 27.3 pg (26-34); Mean Corpuscular Volume 90.3 fl (80-100); Mean Platelet Volume 9.6 fl (7.4-10.4); Monocytes Absolute Auto 0.7 K/mm3 (0.1-0.6); Monocytes Percent Auto 9.1 % (2.6-8.5); Neutrophils Absolute Auto 4.6 K/mm3 (1.3-6.7); Neutrophils Percent Auto 60.1 % (45.5-73.1); Platelet Count Result 353 k/mm3 (150-375); Red Blood Count 4.43 M/mm3 (4.6-6.20); Red Cell Distribution Width 15.3 % (11.5-14.5); White Blood Count 7.6 K/mm3 (4.5-10.0)
[2023-05-19 06:29] LABS: Alanine Aminotransferase 9 U/L (6-50); Alkaline Phosphatase 74 U/L (38-126); Anion Gap 2 mmol/L (8-16); Aspartate Amino Transferase 19 U/L (17-59); Bilirubin,Total 0.5 mg/dL (0.2-1.3); Blood Urea Nitrogen 9 mg/dL (9-20); Calcium 9.9 mg/dL (8.4-10.2); Carbon Dioxide 30 mmol/L (22-30); Chloride 107 mmol/L (98-107); Estimated CRCL calculation 139 ml/min; Estimated Glomerular Filt Rate > 60; Glucose 129 mg/dL (65-110); Potassium 3.3 mmol/L (3.4-5.0); Sodium 139 mmol/L (137-145)
[2023-05-19 08:06] LABS: Glucose Point of Care 149 mg/dl (65-105)
[2023-05-19] MEDS: FUROSEMIDE 20 MG TABLET PO (08:43)
[2023-05-19] MEDS: polyethylene glycoL 3350 17 GM POWD.PACK PO (08:43)
[2023-05-19] MEDS: METOPROLOL TARTRATE 50 MG TAB PO ×2 (08:44→20:52)
[2023-05-19] MEDS: buPROPion HCL XL (24 HR) 150 MG TABCR 300 MG PO (08:44)
[2023-05-19] MEDS: ASPIRIN 81 MG ENTERIC TABLET PO (08:44)
[2023-05-19] MEDS: POTASSIUM CHLORIDE 20 MEQ ER TABLET 40 MEQ PO (08:44)
[2023-05-19] MEDS: VALSARTAN 20 MG TABLET PO (08:44)
[2023-05-19] MEDS: FAMOTIDINE 20 MG TABLET PO (08:44)
[2023-05-19] MEDS: THERAPEUTIC MULTIVITAMINS/MINERALS TAB (*BKC) 1 TABLET PO (08:44)
[2023-05-19] MEDS: GABAPENTIN 300 MG CAPSULE PO ×4 (08:44→20:52)
[2023-05-19] MEDS: APIXABAN 5 MG TABLET PO ×2 (08:44→20:52)
--- NOTE | 2023-05-19 10:56 | PM.IMPN ---
Progress Note: A&P Assessment and Plan (1) Septic shock: Code(s): A41.9 - Sepsis, unspecified organism; R65.21 - Severe sepsis with septic shock <Aleida Maharaj, Student - Last Filed: 05/19/23 12:25> Status: Acute <Aleida Maharaj Student - Last Filed: 05/19/23 12:25> Assessment and Plan: Patient was transferred to ICU for hypotension, received a total of 3-4 L of fluid since admission -refractory hypotension required central line insertion and Levophed -05/09:? CT scan of the abdomen and pelvis: Coats catheter balloon in?abnormal position in the prostatic urethra, mild pulmonary edema, gallbladder distention may be 2nd fasting acute cholecystitis and cholelithiasis. Coats was replaced and then repositioned. -05/09: UCx growing ESBL EColi -05/09:?BCx growing ESBL EColi and Gram-positive cocci -- speciated as entercoccus gallinarum -05/10:?Wound culture (left heel) growing MRSA -05/10:?Wound culture (left pad) growing MRSA and Pseudomonas aeruginosa -05/10: MRSA screen positive -BP improved; Levophed weaned off 05/10. 05/11: Repeat BCx NGTD Patient was started on cefepime, Flagyl, and vancomycin Cefepime changed to Zosyn after looking at previous cultures Zosyn (05/10) changed to meropenem (05/12) WBC decreased today to 10.2 (05/17) PharmD Infectious disease consult, we appreciate their recs Enterococcus gallinarum sensitivities came back as resistant to vancomycin (05/18) Discontinue Vancomycin (05/18) Continue Meropenem; Start Linezolid for MRSA & enterococcus coverage (05/18) Will wean bupropion slowly as to not cause interaction with Linezolid <Aleida Maharaj, Student - Last Filed: 05/19/23 12:25> Patient was transferred to ICU for hypotension, received a total of 3-4 L of fluid since admission -refractory hypotension required central line insertion and Levophed -05/09:? CT scan of the abdomen and pelvis: Coats catheter balloon in?abnormal position in the prostatic urethra, mild pulmonary edema, gallbladder distention may be 2nd fasting acute cholecystitis and cholelithiasis. Coats was replaced and then repositioned. -05/09: UCx growing ESBL EColi -05/09:?BCx growing ESBL EColi and Gram-positive cocci -- speciated as entercoccus gallinarum -05/10:?Wound culture (left heel) growing MRSA -05/10:?Wound culture (left pad) growing MRSA and Pseudomonas aeruginosa -05/10: MRSA screen positive -BP improved; Levophed weaned off 05/10. 05/11: Repeat BCx NGTD Patient was started on cefepime, Flagyl, and vancomycin Cefepime changed to Zosyn after looking at previous cultures Zosyn (05/10) changed to meropenem (05/12) WBC decreased today to 10.2 (05/17) PharmD Infectious disease consult, we appreciate their recs Enterococcus gallinarum sensitivities came back as resistant to vancomycin (05/18) Discontinue Vancomycin (05/18) Continue Meropenem; Start Linezolid for MRSA & enterococcus coverage (05/18) Will wean bupropion slowly as to not cause interaction with Linezolid Plan to keep patient until he completes 10 days of Meropenem for EColi ESBL then change to ceftazidine for Q12hr dosing that [facility]pc can do for the pseudomonas. Will need total 6 weeks for osteomyelitis covering MRSA and Pseudomonas. <Lloyd Prasad MD - Last Filed: 05/19/23 18:13> (2) Diabetic foot ulcer: Code(s): E11.621 - Type 2 diabetes mellitus with foot ulcer; L97.509 - Non-pressure chronic ulcer of other part of unspecified foot with unspecified severity <Aleida Maharaj Student - Last Filed: 05/19/23 12:25> Status: Acute <Aleida Maharaj Student - Last Filed: 05/19/23 12:25> Assessment and Plan: Patient has chronic lower extremity wounds. Wound Care was consulted. UTI most likely the etiology of his septicemia although still waiting on blood culture results. Left foot xray 05/09 showing no evidence of osteomyelitis. Left foot MRI ordered showing skin ulceration with underlying early oste
[2023-05-19 12:02] LABS: Glucose Point of Care 176 mg/dl (65-105)
[2023-05-19] MEDS: MAGNESIUM OXIDE 400 MG TABLET PO (12:25)
[2023-05-19] MEDS: LINEZOLID 600 MG/300 ML 600 MG/300 ML SOLN 300 MG IVPB (12:26)
[2023-05-19 14:00] VITALS: BP 167/96; PULSE 65; RESP 18; TEMP 37; O2SAT 100
[2023-05-19 14:21] LABS: SARS-CoV-2 RNA PCR Negative (Negative)
[2023-05-19] MEDS: ACETAMINOPHEN 325 MG TABLET 650 MG PO (16:52)
[2023-05-19 16:58] LABS: Glucose Point of Care 166 mg/dl (65-105)
[2023-05-19 20:42] LABS: Glucose Point of Care 179 mg/dl (65-105)
[2023-05-19 20:52] VITALS: PULSE 65
[2023-05-19] MEDS: LINEZOLID 600 MG TABLET PO (20:52)
[2023-05-19] MEDS: PRAVASTATIN SODIUM 20 MG TABLET 40 MG PO (20:53)
[2023-05-19] MEDS: MELATONIN 5 MG TABLET PO (20:53)
[2023-05-19] MEDS: INSULIN GLARGINE (*BKC) 100 UNITS/ML SUB-Q (20:54)
[2023-05-19 21:31] VITALS: BP 151/71; PULSE 73; RESP 18; TEMP 36.1; O2SAT 99
[2023-05-20] MEDS: LEVOTHYROXINE SODIUM 100 MCG TABLET PO (05:45)
[2023-05-20] MEDS: CENTRAL LINE FLUSH 10 ML IV PUSH ×3 (05:45→21:56)
[2023-05-20] MEDS: MEROPENEM 1 GM/NS 100 ML 1 GM/100 ML BAG IVPB ×3 (05:45→21:56)
[2023-05-20 06:00] VITALS: BP 131/99; PULSE 65; RESP 18; TEMP 36.1; O2SAT 100
[2023-05-20 06:09] LABS: Anion Gap 1 mmol/L (8-16); Blood Urea Nitrogen 12 mg/dL (9-20); Calcium 9.6 mg/dL (8.4-10.2); Carbon Dioxide 29 mmol/L (22-30); Chloride 104 mmol/L (98-107); Estimated CRCL calculation 106 ml/min; Estimated Glomerular Filt Rate > 60; Glucose 200 mg/dL (65-110); Potassium 3.7 mmol/L (3.4-5.0); Sodium 134 mmol/L (137-145)
[2023-05-20 07:52] LABS: Glucose Point of Care 175 mg/dl (65-105)
[2023-05-20] MEDS: ASPIRIN 81 MG ENTERIC TABLET PO (09:08)
[2023-05-20] MEDS: METOPROLOL TARTRATE 50 MG TAB PO ×2 (09:08→21:56)
[2023-05-20] MEDS: FUROSEMIDE 20 MG TABLET PO (09:08)
[2023-05-20] MEDS: FAMOTIDINE 20 MG TABLET PO (09:08)
[2023-05-20] MEDS: VALSARTAN 20 MG TABLET PO (09:08)
[2023-05-20] MEDS: LINEZOLID 600 MG TABLET PO ×2 (09:08→21:56)
[2023-05-20] MEDS: buPROPion HCL XL (24 HR) 150 MG TABCR PO (09:08)
[2023-05-20] MEDS: APIXABAN 5 MG TABLET PO ×2 (09:08→21:56)
[2023-05-20] MEDS: THERAPEUTIC MULTIVITAMINS/MINERALS TAB (*BKC) 1 TABLET PO (09:08)
[2023-05-20] MEDS: GABAPENTIN 300 MG CAPSULE PO ×4 (09:08→21:55)
[2023-05-20] MEDS: polyethylene glycoL 3350 17 GM POWD.PACK PO (09:08)
[2023-05-20 11:15] LABS: Glucose Point of Care 180 mg/dl (65-105)
[2023-05-20] MEDS: MAGNESIUM OXIDE 400 MG TABLET PO (12:38)
--- NOTE | 2023-05-20 12:43 | PM.IMPN ---
Progress Note: A&P Assessment and Plan (1) Septic shock: Code(s): A41.9 - Sepsis, unspecified organism; R65.21 - Severe sepsis with septic shock Status: Acute Assessment and Plan: Patient was transferred to ICU for hypotension, received a total of 3-4 L of fluid since admission -refractory hypotension required central line insertion and Levophed -05/09:? CT scan of the abdomen and pelvis: Coats catheter balloon in?abnormal position in the prostatic urethra, mild pulmonary edema, gallbladder distention may be 2nd fasting acute cholecystitis and cholelithiasis. Coats was replaced and then repositioned. -05/09: UCx growing ESBL EColi -05/09:?BCx growing ESBL EColi and Gram-positive cocci in pairs-- follow-up on speciation -05/10:?Wound culture (left heel) growing MRSA -05/10:?Wound culture (left pad) growing MRSA and Pseudomonas aeruginosa -05/10: MRSA screen positive -BP improved; Levophed weaned off 05/10. 05/11: Repeat BCx NGTD Patient was started on cefepime, Flagyl, and vancomycin Cefepime changed to Zosyn after looking at previous cultures Zosyn (05/10) changed to meropenem (05/12) WBC mildly elevated today; 9.7 --> 10.8 (05/16) Dc on iv ABX awaiting insurance auth (2) Diabetic foot ulcer: Code(s): E11.621 - Type 2 diabetes mellitus with foot ulcer; L97.509 - Non-pressure chronic ulcer of other part of unspecified foot with unspecified severity Status: Acute Assessment and Plan: Patient has chronic lower extremity wounds. Wound Care was consulted. UTI most likely the etiology of his septicemia although still waiting on blood culture results. Left foot xray 05/09 showing no evidence of osteomyelitis. Left foot MRI ordered showing skin ulceration with underlying early osteomyelitis lateral aspect of the posterior tuberosity of the calcaneus. Ortho consulted and recommended Abx and wound dressing changes. Family wishing to treat so plan for 6 weeks of treatment. PICC line placed 05/15 Continue Eucerin cream application to improve skin integrity. Follow up arterial doppler (3) Osteomyelitis: Code(s): M86.9 - Osteomyelitis, unspecified Status: Acute Assessment and Plan: As above (4) Urinary tract infection: Code(s): N39.0 - Urinary tract infection, site not specified Status: Acute Assessment and Plan: Complicated UTI with chronic indwelling Coats. As above (5) Hematuria: Code(s): R31.9 - Hematuria, unspecified Status: Resolved Assessment and Plan: CT scan showed Coats within prostatic urethra on admission as seen by CT [place] the bleeding related to ureteral trauma. Coats catheter was exchanged and placed properly since admission Urine is clear. No evidence of further bleeding. Eliquis resumed and tolerating well. Hgb stable. Urology following. Appreciate their input. (6) Insulin dependent diabetes mellitus: Status: Chronic Assessment and Plan: Glucose remains reasonably well controlled. (7) Altered mental status: Code(s): R41.82 - Altered mental status, unspecified Status: Acute Assessment and Plan: [place] related to septicemia. He also has underlying dementia and oriented x2 chronically CT brain 05/10 showing no acute findings but does show atrophy pt is more alert and coherent today (8) Atrial fibrillation with rapid ventricular response: Code(s): I48.91 - Unspecified atrial fibrillation Status: Acute Assessment and Plan: Patient with chronic AFib. He is normally on Eliquis and metoprolol. Metoprolol initially held due to HoTN Eliquis held due to bleeding Bleeding has stopped and Hgb stable 11-12 BP was better so we added low dose metoprolol Metoprolol advanced to home dose. Eliquis resumed. Off tele now (9) Hypothyroidism: Code(s): E03.9 - Hypothyroidism, unspecified Status: Acute Assessment and Plan: TSH normal. Continu
[2023-05-20 13:26] VITALS: BP 162/82; PULSE 62; RESP 18; TEMP 36.1; O2SAT 100
[2023-05-20 16:41] LABS: Glucose Point of Care 235 mg/dl (65-105)
[2023-05-20] MEDS: INSULIN ASPART (*BKC) 100 UNITS/ML SUB-Q (16:51)
[2023-05-20 21:16] LABS: Glucose Point of Care 207 mg/dl (65-105)
[2023-05-20 21:36] VITALS: BP 162/90; PULSE 65; RESP 20; TEMP 36.6; O2SAT 99
[2023-05-20] MEDS: INSULIN GLARGINE (*BKC) 100 UNITS/ML SUB-Q (21:54)
[2023-05-20] MEDS: MELATONIN 5 MG TABLET PO (21:55)
[2023-05-20] MEDS: PRAVASTATIN SODIUM 20 MG TABLET 40 MG PO (21:56)
[2023-05-21 05:28] VITALS: BP 125/65; PULSE 65; RESP 18; TEMP 36.4; O2SAT 100
[2023-05-21] MEDS: LEVOTHYROXINE SODIUM 100 MCG TABLET PO (06:03)
[2023-05-21] MEDS: MEROPENEM 1 GM/NS 100 ML 1 GM/100 ML BAG IVPB ×3 (06:03→21:02)
[2023-05-21] MEDS: CENTRAL LINE FLUSH 10 ML IV PUSH ×3 (06:03→21:02)
[2023-05-21 07:48] LABS: Glucose Point of Care 123 mg/dl (65-105)
[2023-05-21 11:30] LABS: Glucose Point of Care 203 mg/dl (65-105)
[2023-05-21] MEDS: SENNA/DOCUSATE SODIUM TABLET 1 TAB PO (12:36)
[2023-05-21] MEDS: METOPROLOL TARTRATE 50 MG TAB PO ×2 (12:36→20:36)
[2023-05-21] MEDS: VALSARTAN 20 MG TABLET PO (12:36)
[2023-05-21] MEDS: MAGNESIUM OXIDE 400 MG TABLET PO (12:36)
[2023-05-21] MEDS: INSULIN ASPART (*BKC) 100 UNITS/ML SUB-Q (12:37)
[2023-05-21] MEDS: THERAPEUTIC MULTIVITAMINS/MINERALS TAB (*BKC) 1 TABLET PO (12:37)
[2023-05-21] MEDS: buPROPion HCL XL (24 HR) 150 MG TABCR PO (12:37)
[2023-05-21] MEDS: FUROSEMIDE 20 MG TABLET PO (12:37)
[2023-05-21] MEDS: LINEZOLID 600 MG TABLET PO ×2 (12:37→20:35)
[2023-05-21] MEDS: FAMOTIDINE 20 MG TABLET PO (12:37)
[2023-05-21] MEDS: APIXABAN 5 MG TABLET PO ×2 (12:37→20:37)
[2023-05-21] MEDS: ASPIRIN 81 MG ENTERIC TABLET PO (12:37)
[2023-05-21] MEDS: GABAPENTIN 300 MG CAPSULE PO ×3 (12:37→20:34)
[2023-05-21] MEDS: polyethylene glycoL 3350 17 GM POWD.PACK PO (12:37)
[2023-05-21 13:50] VITALS: BP 149/75; PULSE 64; RESP 18; TEMP 36.4; O2SAT 100
--- NOTE | 2023-05-21 14:20 | PM.IMPN ---
Progress Note: A&P Assessment and Plan (1) Septic shock: Code(s): A41.9 - Sepsis, unspecified organism; R65.21 - Severe sepsis with septic shock Status: Acute Assessment and Plan: Patient was transferred to ICU for hypotension, received a total of 3-4 L of fluid since admission -refractory hypotension required central line insertion and Levophed -05/09:? CT scan of the abdomen and pelvis: Coats catheter balloon in?abnormal position in the prostatic urethra, mild pulmonary edema, gallbladder distention may be 2nd fasting acute cholecystitis and cholelithiasis. Coats was replaced and then repositioned. -05/09: UCx growing ESBL EColi -05/09:?BCx growing ESBL EColi and Gram-positive cocci in pairs-- follow-up on speciation -05/10:?Wound culture (left heel) growing MRSA -05/10:?Wound culture (left pad) growing MRSA and Pseudomonas aeruginosa -05/10: MRSA screen positive -BP improved; Levophed weaned off 05/10. 05/11: Repeat BCx NGTD Patient was started on cefepime, Flagyl, and vancomycin Cefepime changed to Zosyn after looking at previous cultures Zosyn (05/10) changed to meropenem (05/12) WBC mildly elevated today; 9.7 --> 10.8 (05/16) Plan to continue merrem course in the hospital until daja 05/21 and then dc (2) Diabetic foot ulcer: Code(s): E11.621 - Type 2 diabetes mellitus with foot ulcer; L97.509 - Non-pressure chronic ulcer of other part of unspecified foot with unspecified severity Status: Acute Assessment and Plan: Patient has chronic lower extremity wounds. Wound Care was consulted. UTI most likely the etiology of his septicemia although still waiting on blood culture results. Left foot xray 05/09 showing no evidence of osteomyelitis. Left foot MRI ordered showing skin ulceration with underlying early osteomyelitis lateral aspect of the posterior tuberosity of the calcaneus. Ortho consulted and recommended Abx and wound dressing changes. Family wishing to treat so plan for 6 weeks of treatment. PICC line placed 05/15 Continue Eucerin cream application to improve skin integrity. (3) Osteomyelitis: Code(s): M86.9 - Osteomyelitis, unspecified Status: Acute Assessment and Plan: As above (4) Urinary tract infection: Code(s): N39.0 - Urinary tract infection, site not specified Status: Acute Assessment and Plan: Complicated UTI with chronic indwelling Coats. As above (5) Hematuria: Code(s): R31.9 - Hematuria, unspecified Status: Resolved Assessment and Plan: CT scan showed Coats within prostatic urethra on admission as seen by CT [place] the bleeding related to ureteral trauma. Coats catheter was exchanged and placed properly since admission Urine is clear. No evidence of further bleeding. Eliquis resumed and tolerating well. Hgb stable. Urology following. Appreciate their input. (6) Insulin dependent diabetes mellitus: Status: Chronic Assessment and Plan: Glucose remains reasonably well controlled. (7) Altered mental status: Code(s): R41.82 - Altered mental status, unspecified Status: Acute Assessment and Plan: [place] related to septicemia. He also has underlying dementia and oriented x2 chronically CT brain 05/10 showing no acute findings but does show atrophy pt is more alert and coherent today (8) Atrial fibrillation with rapid ventricular response: Code(s): I48.91 - Unspecified atrial fibrillation Status: Acute Assessment and Plan: Patient with chronic AFib. He is normally on Eliquis and metoprolol. Metoprolol initially held due to HoTN Eliquis held due to bleeding Bleeding has stopped and Hgb stable 11-12 BP was better so we added low dose metoprolol Metoprolol advanced to home dose. Eliquis resumed. (9) Hypothyroidism: Code(s): E03.9 - Hypothyroidism, unspecified Status: Acute Assessment and Plan: TSH normal. Continue
[2023-05-21 16:38] LABS: Glucose Point of Care 138 mg/dl (65-105)
[2023-05-21] MEDS: PRAVASTATIN SODIUM 20 MG TABLET 40 MG PO (20:34)
[2023-05-21] MEDS: MELATONIN 5 MG TABLET PO (20:35)
[2023-05-21 20:36] VITALS: PULSE 70
[2023-05-21 20:49] LABS: Glucose Point of Care 308 mg/dl (65-105)
[2023-05-21] MEDS: INSULIN GLARGINE (*BKC) 100 UNITS/ML SUB-Q (21:02)
[2023-05-21 21:11] VITALS: BP 143/82; PULSE 65; RESP 14; TEMP 36.1; O2SAT 95
[2023-05-22] MEDS: CENTRAL LINE FLUSH 10 ML IV PUSH ×3 (05:43→21:10)
[2023-05-22] MEDS: LEVOTHYROXINE SODIUM 100 MCG TABLET PO (05:43)
[2023-05-22] MEDS: MEROPENEM 1 GM/NS 100 ML 1 GM/100 ML BAG IVPB ×3 (05:43→21:10)
[2023-05-22 05:59] VITALS: BP 127/76; PULSE 64; RESP 12; TEMP 36.1; O2SAT 96
[2023-05-22 06:01] LABS: Hematocrit 40.9 % (42.0-52.0); Hemoglobin 12.1 g/dL (14.0-18.0); Mean Corpuscular HGB Conc 29.6 g/dl (32-36); Mean Corpuscular Hemoglobin 26.7 pg (26-34); Mean Corpuscular Volume 90.1 fl (80-100); Mean Platelet Volume 9.5 fl (7.4-10.4); Platelet Count Result 373 k/mm3 (150-375); Red Blood Count 4.54 M/mm3 (4.6-6.20); White Blood Count 9.6 K/mm3 (4.5-10.0)
[2023-05-22 07:41] LABS: Glucose Point of Care 148 mg/dl (65-105)
[2023-05-22 10:44] VITALS: PULSE 64
[2023-05-22] MEDS: APIXABAN 5 MG TABLET PO ×2 (10:44→20:45)
[2023-05-22] MEDS: GABAPENTIN 300 MG CAPSULE PO ×4 (10:44→20:45)
[2023-05-22] MEDS: LINEZOLID 600 MG TABLET PO ×2 (10:44→20:46)
[2023-05-22] MEDS: buPROPion HCL XL (24 HR) 150 MG TABCR PO (10:44)
[2023-05-22] MEDS: ASPIRIN 81 MG ENTERIC TABLET PO (10:44)
[2023-05-22] MEDS: METOPROLOL TARTRATE 50 MG TAB PO ×2 (10:44→20:51)
[2023-05-22] MEDS: FUROSEMIDE 20 MG TABLET PO (10:44)
[2023-05-22] MEDS: THERAPEUTIC MULTIVITAMINS/MINERALS TAB (*BKC) 1 TABLET PO (10:44)
[2023-05-22] MEDS: FAMOTIDINE 20 MG TABLET PO (10:44)
[2023-05-22] MEDS: VALSARTAN 20 MG TABLET PO (10:45)
[2023-05-22 11:17] LABS: Glucose Point of Care 242 mg/dl (65-105)
--- NOTE | 2023-05-22 12:04 | PM.IMPN ---
Progress Note: A&P Assessment and Plan (1) Septic shock: Code(s): A41.9 - Sepsis, unspecified organism; R65.21 - Severe sepsis with septic shock Status: Acute Assessment and Plan: Patient was transferred to ICU for hypotension, received a total of 3-4 L of fluid since admission -refractory hypotension required central line insertion and Levophed -05/09:? CT scan of the abdomen and pelvis: Coats catheter balloon in?abnormal position in the prostatic urethra, mild pulmonary edema, gallbladder distention may be 2nd fasting acute cholecystitis and cholelithiasis. Coats was replaced and then repositioned. -05/09: UCx growing ESBL EColi -05/09:?BCx growing ESBL EColi and Gram-positive cocci in pairs-- follow-up on speciation -05/10:?Wound culture (left heel) growing MRSA -05/10:?Wound culture (left pad) growing MRSA and Pseudomonas aeruginosa -05/10: MRSA screen positive -BP improved; Levophed weaned off 05/10. 05/11: Repeat BCx NGTD Patient was started on cefepime, Flagyl, and vancomycin Cefepime changed to Zosyn after looking at previous cultures Zosyn (05/10) changed to meropenem (05/12) WBC mildly elevated today; 9.7 --> 10.8 (05/16) Plan to continue merrem course in the hospital until daja 05/21 and then dc (2) Diabetic foot ulcer: Code(s): E11.621 - Type 2 diabetes mellitus with foot ulcer; L97.509 - Non-pressure chronic ulcer of other part of unspecified foot with unspecified severity Status: Acute (3) Osteomyelitis: Code(s): M86.9 - Osteomyelitis, unspecified Status: Acute (4) Urinary tract infection: Code(s): N39.0 - Urinary tract infection, site not specified Status: Acute (5) Hematuria: Code(s): R31.9 - Hematuria, unspecified Status: Resolved (6) Insulin dependent diabetes mellitus: Status: Chronic (7) Altered mental status: Code(s): R41.82 - Altered mental status, unspecified Status: Acute (8) Atrial fibrillation with rapid ventricular response: Code(s): I48.91 - Unspecified atrial fibrillation Status: Acute (9) Hypothyroidism: Code(s): E03.9 - Hypothyroidism, unspecified Status: Acute Plan 67-year-old male with history of proximal atrial fibrillation diastolic congestive heart failure insulin-dependent diabetes hypothyroidism hypertension untreated obstructive sleep apnea chronic venous stasis dermatitis indwelling Coats catheter and other comorbidities presented to the ED from [facility] for evaluation after he was found to have blood coming out of his Coats catheter.? Also was altered on presentation.? He is nonambulatory at baseline and depends on [facility] for transfer. In the ED was tachycardic and rapid AFib on arrival.? Blood pressure stable.? Febrile at 1:01 a.m..? WBC 11.5 sodium 131 lactate normal CRP elevated at 6.8.? Urine positive for nitrates leukocyte esterase 3+ protein 2+ blood 21-50 RBC greater than 100 WBC 4 +bacteria.? Chest x-ray showed mild pulmonary edema cardiomegaly.? CT abdomen pelvis showed Coats catheter balloon in abnormal position in prostatic urethra mild pulmonary edema gallbladder distension could be secondary to fasting or acute cholecystitis and cholelithiasis.? Coats catheter was exchanged in the ER and had red urine coming from the catheter.? He has been started on ceftriaxone for UTI.? Also been started on diltiazem drip for rapid AFib.? Echo showed EF of 65-70% moderate concentric increased left ventricular wall thickness diastolic function indeterminate small amount of tricuspid regurgitation and atrial fibrillation.? Overnight patient started to have low blood pressure and was transferred to the unit central line was placed and started on vasopressors.? Diltiazem drip was stopped.? Cardiology was consulted.? Urology has been consulted.? Hematuria has resolved.? Blood culture growing Gram-negative darin repeat blood culture on 05/11 ordered.? Urine culture Gram negative
[2023-05-22] MEDS: INSULIN ASPART (*BKC) 100 UNITS/ML SUB-Q (12:16)
[2023-05-22 13:58] VITALS: BP 139/66; PULSE 59; RESP 13; TEMP 36.2; O2SAT 100
[2023-05-22] MEDS: MAGNESIUM OXIDE 400 MG TABLET PO (14:56)
[2023-05-22 16:16] LABS: Glucose Point of Care 188 mg/dl (65-105)
[2023-05-22 20:34] LABS: Glucose Point of Care 210 mg/dl (65-105)
[2023-05-22] MEDS: MELATONIN 5 MG TABLET PO (20:46)
[2023-05-22] MEDS: PRAVASTATIN SODIUM 20 MG TABLET 40 MG PO (20:47)
[2023-05-22] MEDS: INSULIN GLARGINE (*BKC) 100 UNITS/ML SUB-Q (20:50)
[2023-05-22 20:51] VITALS: PULSE 66
[2023-05-22 21:31] VITALS: BP 145/78; PULSE 67; RESP 14; TEMP 36.2; O2SAT 98
[2023-05-23] MEDS: LEVOTHYROXINE SODIUM 100 MCG TABLET PO (05:21)
[2023-05-23] MEDS: CENTRAL LINE FLUSH 10 ML IV PUSH (05:21)
[2023-05-23] MEDS: MEROPENEM 1 GM/NS 100 ML 1 GM/100 ML BAG IVPB (05:21)
[2023-05-23 05:43] LABS: Basophils Absolute Auto 0.1 K/mm3 (0.0-0.1); Basophils Percent Auto 1.3 % (0.2-1.2); Eosinophils Absolute Auto 1.2 K/mm3 (0-0.3); Eosinophils Percent Auto 12.8 % (0-4.4); Hematocrit 40.1 % (42.0-52.0); Hemoglobin 12.2 g/dL (14.0-18.0); Immature Granulocyte Absolute 0.02 K/mm3 (0.00-0.031); Immature Granulocyte Percent A 0.2 % (0-0.5); Mean Corpuscular HGB Conc 30.4 g/dl (32-36); Mean Corpuscular Hemoglobin 27.4 pg (26-34); Mean Corpuscular Volume 90.1 fl (80-100); Mean Platelet Volume 9.7 fl (7.4-10.4); Monocytes Absolute Auto 0.7 K/mm3 (0.1-0.6); Monocytes Percent Auto 7.6 % (2.6-8.5); Neutrophils Absolute Auto 5.7 K/mm3 (1.3-6.7); Neutrophils Percent Auto 60.1 % (45.5-73.1); Platelet Count Result 337 k/mm3 (150-375); Red Blood Count 4.45 M/mm3 (4.6-6.20); Red Cell Distribution Width 14.8 % (11.5-14.5); White Blood Count 9.5 K/mm3 (4.5-10.0)
[2023-05-23 05:44] VITALS: BP 141/74; PULSE 110; RESP 17; TEMP 36.1; O2SAT 94
[2023-05-23 05:51] LABS: Alanine Aminotransferase 11 U/L (6-50); Albumin Level 3.1 g/dL (3.5-5.1); Alkaline Phosphatase 75 U/L (38-126); Anion Gap 0 mmol/L (8-16); Aspartate Amino Transferase 20 U/L (17-59); Bilirubin,Total 0.5 mg/dL (0.2-1.3); Blood Urea Nitrogen 15 mg/dL (9-20); Calcium 10.2 mg/dL (8.4-10.2); Carbon Dioxide 34 mmol/L (22-30); Chloride 99 mmol/L (98-107); Estimated CRCL calculation 108 ml/min; Estimated Glomerular Filt Rate > 60; Glucose 138 mg/dL (65-110); Magnesium 1.9 mg/dL (1.6-2.3); Potassium 4.3 mmol/L (3.4-5.0); Sodium 133 mmol/L (137-145)
[2023-05-23 07:56] LABS: Glucose Point of Care 174 mg/dl (65-105)
[2023-05-23 09:29] VITALS: PULSE 110
[2023-05-23] MEDS: APIXABAN 5 MG TABLET PO (09:29)
[2023-05-23] MEDS: buPROPion HCL XL (24 HR) 150 MG TABCR PO (09:29)
[2023-05-23] MEDS: FUROSEMIDE 20 MG TABLET PO (09:29)
[2023-05-23] MEDS: LINEZOLID 600 MG TABLET PO (09:29)
[2023-05-23] MEDS: ASPIRIN 81 MG ENTERIC TABLET PO (09:29)
[2023-05-23] MEDS: THERAPEUTIC MULTIVITAMINS/MINERALS TAB (*BKC) 1 TABLET PO (09:29)
[2023-05-23] MEDS: GABAPENTIN 300 MG CAPSULE PO (09:29)
[2023-05-23] MEDS: METOPROLOL TARTRATE 50 MG TAB PO (09:29)
[2023-05-23] MEDS: VALSARTAN 20 MG TABLET PO (09:29)
[2023-05-23] MEDS: FAMOTIDINE 20 MG TABLET PO (09:30)
[2023-05-23 12:22] LABS: Glucose Point of Care 185 mg/dl (65-105)
--- NOTE | 2023-05-23 12:41 | PM.DS ---
DS: Admitting Diagnosis Discharge Date 05/23/2023 Admitting Diagnosis Sepsis DS: Discharge Diagnosis Discharge Diagnosis (1) Septic shock: Code(s): A41.9 - Sepsis, unspecified organism; R65.21 - Severe sepsis with septic shock Status: Acute (2) Diabetic foot ulcer: Code(s): E11.621 - Type 2 diabetes mellitus with foot ulcer; L97.509 - Non-pressure chronic ulcer of other part of unspecified foot with unspecified severity Status: Acute (3) Osteomyelitis: Code(s): M86.9 - Osteomyelitis, unspecified Status: Acute (4) Urinary tract infection: Code(s): N39.0 - Urinary tract infection, site not specified Status: Acute (5) Hematuria: Code(s): R31.9 - Hematuria, unspecified Status: Resolved (6) Insulin dependent diabetes mellitus: Status: Chronic (7) Altered mental status: Code(s): R41.82 - Altered mental status, unspecified Status: Acute (8) Atrial fibrillation with rapid ventricular response: Code(s): I48.91 - Unspecified atrial fibrillation Status: Acute (9) Hypothyroidism: Code(s): E03.9 - Hypothyroidism, unspecified Status: Acute DS: Summary Hospital Course Hospital Course: 67-year-old male with history of proximal atrial fibrillation diastolic congestive heart failure insulin-dependent diabetes hypothyroidism hypertension untreated obstructive sleep apnea chronic venous stasis dermatitis indwelling Coats catheter and other comorbidities presented to the ED from [facility] for evaluation after he was found to have blood coming out of his Coats catheter.? Patient Also was altered on presentation.? He is nonambulatory at baseline and depends on [facility] for transfer. In the ED patient was tachycardic and rapid AFib on arrival.? Blood pressure stable.? Febrile at 101..? WBC 11.5 sodium 131 lactate normal CRP elevated at 6.8.? Urine positive for nitrates leukocyte esterase 3+ protein 2+ blood 21-50 RBC greater than 100 WBC 4 +bacteria.? Chest x-ray showed mild pulmonary edema cardiomegaly.? CT abdomen pelvis showed Coats catheter balloon in abnormal position in prostatic urethra mild pulmonary edema gallbladder distension could be secondary to fasting or acute cholecystitis and cholelithiasis.? Coats catheter was exchanged in the ER and had red urine coming from the catheter.? He has been started on ceftriaxone for UTI.? Also been started on diltiazem drip for rapid AFib.? Echo showed EF of 65-70% moderate concentric increased left ventricular wall thickness diastolic function indeterminate small amount of tricuspid regurgitation and atrial fibrillation.? Overnight patient started to have low blood pressure and was transferred to the unit, central line was placed and started on vasopressors.? Diltiazem drip was stopped.? Cardiology was consulted.? Urology has been consulted.? Hematuria has resolved spontaneously.? Blood culture growing Gram-negative darin repeat blood culture on 05/11 ordered.? Urine culture Gram negative bacilli. This was identified as E coli and Enterococcus. He also had Diabetic foot ulcers, wound culture from which grew Staph aureus and Pseudomonas aeruginosa.? Patient was treated with meropenem and vancomycin. Enterococcus was resistant to vancomycin. He finished antibiotic for bacteremia for E coli ESBL with meropenem while hospitalized. His antibiotic was switched to cefepime discharge cover for Pseudomonas from his wound culture. Since he has underlying osteomyelitis this will be continued for total 6 weeks duration until 06/21/23. Linezolid was started to cover for osteomyelitis related to MRSA found on his wound culture to end on 06/21/2023. Left foot MRI ordered showing skin ulceration with underlying early osteomyelitis lateral aspect of the posterior tuberosity of the calcaneus. Ortho consulted and recommended Abx and wound dressing changes. Family wishing to treat so plan for 6 weeks of treatment. PIC
[2023-05-23 13:52] LABS: SARS-CoV-2 RNA PCR Negative (Negative)
[2023-05-23 14:00] VITALS: BP 142/94; PULSE 69; RESP 18; TEMP 35.6; O2SAT 98
== END 2023-05-23 15:30 | DRG 698 ==
LOC: ANHED 18:15 → ANHIMU 18:38 → ANHICU 05-11 00:30 → ANH3MEDSUR 05-13 20:14
PROVIDERS: Family Medicine; Internal Medicine; Physician Assistant; Admitting Provider Internal Medicine; Emergency Provider Emergency Medicine; PCP Internal Medicine; Visit Provider Internal Medicine
DX: T83.511A Infection and inflammatory reaction due to indwelling urethral catheter, initial encounter (principal); A41.51 Sepsis due to Escherichia coli [E. coli]; J96.01 Acute respiratory failure with hypoxia; R65.21 Severe sepsis with septic shock; A41.81 Sepsis due to Enterococcus; G93.41 Metabolic encephalopathy; I50.32 Chronic diastolic (congestive) heart failure; L97.829 Non-pressure chronic ulcer of other part of left lower leg with unspecified severity; L97.819 Non-pressure chronic ulcer of other part of right lower leg with unspecified severity; L97.429 Non-pressure chronic ulcer of left heel and midfoot with unspecified severity; L03.116 Cellulitis of left lower limb; L03.115 Cellulitis of right lower limb; M86.9 Osteomyelitis, unspecified; T83.021A Displacement of indwelling urethral catheter, initial encounter; N39.0 Urinary tract infection, site not specified; I11.0 Hypertensive heart disease with heart failure; I48.0 Paroxysmal atrial fibrillation; I87.2 Venous insufficiency (chronic) (peripheral); J44.9 Chronic obstructive pulmonary disease, unspecified; E11.621 Type 2 diabetes mellitus with foot ulcer; E11.42 Type 2 diabetes mellitus with diabetic polyneuropathy; E03.9 Hypothyroidism, unspecified; E78.5 Hyperlipidemia, unspecified; K80.20 Calculus of gallbladder without cholecystitis without obstruction; K21.9 Gastro-esophageal reflux disease without esophagitis; R31.9 Hematuria, unspecified; G47.33 Obstructive sleep apnea (adult) (pediatric); F32.A Depression, unspecified; Z20.822 Contact with and (suspected) exposure to COVID-19; Z11.52 Encounter for screening for COVID-19; Z79.4 Long term (current) use of insulin; Z87.442 Personal history of urinary calculi; Z87.891 Personal history of nicotine dependence; Z79.01 Long term (current) use of anticoagulants; Z79.82 Long term (current) use of aspirin; B95.61 Methicillin susceptible Staphylococcus aureus infection as the cause of diseases classified elsewhere; B96.5 Pseudomonas (aeruginosa) (mallei) (pseudomallei) as the cause of diseases classified elsewhere; B96.20 Unspecified Escherichia coli [E. coli] as the cause of diseases classified elsewhere
CPT/HCPCS: 36415; 36569; 36600; 70450; 71045; 73620; 73650; 73720; 74177; 76705; 80048; 80053; 80202; 80307; 81001; 82140; 82375; 82607; 82805; 82948; 83036; 83050; 83605; 83735; 84100; 84443; 84484; 85025; 85027; 85610; 85730; 86140; 87040; 87070; 87077; 87086; 87088; 87147; 87181; 87186; 87205; 87635; 87637; 87641; 93005; 93922; 96361; 96365; 96366; 96367; 96368; 96375; 96376; 99285; A9270; A9577; C1751; C8929; G0378; J0692; J0696; J1170; J1815; J1836; J1940; J2020; J2060; J2185; J2250; J2270; J2405; J2543; J3370; J3475; J3480; J7030; J7120; Q9957; Q9967

== ENCOUNTER 2023-06-21 20:03 | Inpatient (IN) | payer MEDICARE, MEDICAID, SELFPAY ==
[2023-06-21] VITALS (24 sets, daily range): BP systolic 82–127; BP diastolic 48–84; PULSE 59–93; RESP 14–22; TEMP 37.1; O2SAT 92–100
--- NOTE | ~2023-06-21 | CT_ITS ---
EXAMINATION: CT brain wo con DATE: 06/21/2023 21:27 INDICATION: Altered mental status. TECHNIQUE: Computed tomography (CT) of the head was performed without intravenous contrast. The mA wa s adjusted according to patient size. Iterative reconstruction technique was employed. The dose-lengt h product was 681.00 mGy-cm. COMPARISON: Head CT 05/10/2023 FINDINGS: There are scattered areas of low attenuation in the cerebral white matter, which is within normal limits for the patient's age. There is no intracranial hemorrhage, acute infarction, or abnor mal intracranial mass lesion. The ventricles are normal in size. There is mild mucosal thickening in the paranasal sinuses. There are likely changes of left ocular lens replacement surgery. The mastoid air cells are normal. There is cerumen in the external auditory canals. IMPRESSION: 1. Normal aging brain. Reviewed, dictated and finalized at location E. IMPRESSION: 1. Normal aging brain.
--- NOTE | ~2023-06-21 | XR_ITS ---
EXAMINATION: XR foot LT min 3V DATE: 06/23/2023 11:23 INDICATION: Left foot osteoarthritis. TECHNIQUE: 4 views of left foot were obtained. COMPARISON: Left foot radiographs 05/10/2023 FINDINGS: Bone alignment is normal. There is diffuse osteopenia, which decreases sensitivity. There i s darin and screw fixation of tibia. There is mild osteoarthritis of many of the midfoot joints and for efoot joints. IMPRESSION: 1. No evidence of osteomyelitis. Reviewed, dictated and finalized at location E.
--- NOTE | ~2023-06-21 | XR_ITS ---
EXAMINATION: XR chest PICC line DATE: 06/22/2023 04:15 INDICATION: Central line placement. TECHNIQUE: A single frontal view of the chest was obtained on 2 radiographs. COMPARISON: Chest single view 05/16/2023 FINDINGS: The patient is rotated to his right. There is a diffuse interstitial pattern in the lungs, consistent with mild pulmonary edema. No pleural effusion or pneumothorax. Cardiomegaly is noted. A r ight upper extremity peripherally inserted central venous catheter (PICC) is seen with tip in right a xillary vein. IMPRESSION: 1. PICC tip in right axillary vein. 2. Mild pulmonary edema. 3. Cardiomegaly. Reviewed, dictated and finalized at location E.
--- NOTE | ~2023-06-21 | XR_ITS ---
Portable chest x-ray Comparison: 06/22/2023 Clinical History: Shortness of breath Findings: There is central congestive change and probable mild pulmonary edema pattern. Cardiomedia stinal silhouette is stable. Bones and soft tissues are unremarkable. Impression: Central congestive change and probable mild pulmonary edema. Reviewed, dictated and finalized at [facility]. Impression: Central congestive change and probable mild pulmonary edema.
--- NOTE | ~2023-06-21 | CT_ITS ---
EXAMINATION: CTA chest PE abdomen pel DATE: 06/21/2023 21:30 INDICATION: Dyspnea. Abdominal pain. TECHNIQUE: Computed tomography angiography (CTA) of the chest was performed with 100 mL Omnipaque-350 intravenous contrast timed to evaluate the pulmonary arteries. Coronal maximum intensity projection 3D-reconstructions were created by the technologist. Computed tomography (CT) of the abdomen and pelv is was performed with intravenous contrast. Automated exposure control and iterative reconstruction t echnique were employed. The dose-length product was 2030.60 mGy-cm. COMPARISON: CT abdomen and pelvis 05/10/2023 FINDINGS: CTA chest: The lungs demonstrate smooth septal thickening, consistent with pulmonary edema. There is mild atelectasis bilaterally. There are moderate-sized right and small left pleural effusions. Cardio megaly is noted. No pericardial effusion. There is mild pectus excavatum. There is mild bilateral air sampling and monitoring ecomastia. There is mild mediastinal lymphadenopathy, likely reactive. There is no pulmonary embolus. There is mild thoracic spondylosis. There is mild chronic anterior wedging of T11 and T12 vertebral bodies. CT abdomen and pelvis: The liver, spleen, and pancreas are normal. There are gallstones in the gallbl adder, which is normal in size. The adrenal glands are normal. There are approximately 4 stones in ri ght kidney including a staghorn calculus measuring 2.6 cm. There is a 13 mm cyst in left kidney. Ther e are 4 mm and 6 mm stones in left kidney. The prostate is mildly enlarged. There is a Co[place] catheter in expected position. Stool distends the rectosigmoid. The appendix is not visualized. There are no pathologically enlarged lymph nodes. There is no free intraperitoneal fluid. There is moderate lumbar spondylosis. There is mild chronic anterior wedging of L1 vertebral body. IMPRESSION: 1. No pulmonary embolus. 2. Mild pulmonary edema. 3. Moderate-sized right and small left pleural effusions. 4. Stool distends the rectosigmoid. Reviewed, dictated and finalized at location E.
--- NOTE | 2023-06-21 20:16 | ECG_ITS ---
SEE SCANNED COPY FOR CONFIRMED REPORT MTDD
[2023-06-21 20:37] LABS: Basophils Absolute Auto 0.1 K/mm3 (0.0-0.1); Basophils Percent Auto 0.7 % (0.2-1.2); Eosinophils Absolute Auto 0.4 K/mm3 (0-0.3); Eosinophils Percent Auto 5.2 % (0-4.4); Hematocrit 28.6 % (42.0-52.0); Hemoglobin 9.1 g/dL (14.0-18.0); Immature Granulocyte Absolute 0.04 K/mm3 (0.00-0.031); Immature Granulocyte Percent A 0.5 % (0-0.5); Lymphocytes Absolute Auto 1.05 K/mm3 (0.9-3.2); Mean Corpuscular HGB Conc 31.8 g/dl (32-36); Mean Corpuscular Hemoglobin 27.5 pg (26-34); Mean Corpuscular Volume 86.4 fl (80-100); Mean Platelet Volume 11.6 fl (7.4-10.4); Monocytes Absolute Auto 1.7 K/mm3 (0.1-0.6); Monocytes Percent Auto 21.4 % (2.6-8.5); Neutrophils Absolute Auto 4.8 K/mm3 (1.3-6.7); Neutrophils Percent Auto 59.2 % (45.5-73.1); Platelet Count Result 150 k/mm3 (150-375); Red Blood Count 3.31 M/mm3 (4.6-6.20); Red Cell Distribution Width 14.8 % (11.5-14.5); White Blood Count 8.1 K/mm3 (4.5-10.0)
[2023-06-21 20:47] LABS: Alveolar/Arterial O2 Gradient 565.6 mmHg; Base Excess ABG -0.8 mEq/l (+/-2.0); Fractional Inspired Oxygen 96 %; HCO3 ABG 24.3 mEq/l (22.0-26.0); Oxygen Content ABG 12.8 %vol (16.0-22.0); Oxygen Saturation ABG 95.1 % (95.0-100.0); Oxyhemoglobin 93.1 % THb (90.0-100.0); PCO2 ABG 41.9 mmHg (35.0-45.0); PO2 ABG 76.6 mmHg (80.0-100.0); Total Hemoglobin 9.7 g/dL (12.0-18.0); pH ABG 7.381 (7.350-7.450)
[2023-06-21 20:48] LABS: Device NASAL CANNULA; Modified Allen's Test Pass; Site Drawn RIGHT RADIAL
[2023-06-21 20:51] LABS: INR 1.6; Partial Thromboplastin Time 46.1 Seconds (22.3-36.8); Prothrombin Time 20.1 Seconds (11.1-14.7)
[2023-06-21 20:52] LABS: Alanine Aminotransferase 18 U/L (6-50); Alkaline Phosphatase 97 U/L (38-126); Anion Gap 6 mmol/L (4-12); Aspartate Amino Transferase 21 U/L (17-59); Bilirubin,Total 0.7 mg/dL (0.2-1.3); Blood Urea Nitrogen 36 mg/dL (9-20); Calcium 10.3 mg/dL (8.4-10.2); Carbon Dioxide 25 mmol/L (22-30); Chloride 105 mmol/L (98-107); Estimated CRCL calculation 98 ml/min; Estimated Glomerular Filt Rate > 60; Glucose 180 mg/dL (65-110); Lipase 31 U/L (23-300); Magnesium 2.2 mg/dL (1.6-2.3); Potassium 5.2 mmol/L (3.4-5.0); Sodium 136 mmol/L (137-145)
[2023-06-21 20:54] LABS: CRP 6.3 mg/dL (<1.0)
[2023-06-21 20:55] LABS: Lactic Acid Reflex 1.4 mmol/L (0.7-2.0)
[2023-06-21 21:03] LABS: NT Pro B Type Natriuretic Pept 7430 pg/mL (19.9-100); Troponin I 0.018 ng/mL (0.000-0.034)
--- NOTE | 2023-06-21 21:03 | PC.NURSE ---
Patient more responsive, awakens when spoken to but confused.
--- NOTE | 2023-06-21 21:06 | PC.NURSE ---
Patient taken to CT via stretcher while on tele. Patient VSS.
[2023-06-21 21:12] LABS: Influenza A QL RT-PCR Negative (Negative); Influenza B QL RT-PCR Negative (Negative); RSV RNA, RT-PCR Negative (Negative); SARS-CoV-2 RNA PCR Negative (Negative)
[2023-06-21 21:21] LABS: Procalcitonin 0.1 ng/mL
[2023-06-21 21:55] LABS: Appearance Urine Turbid (Clear); Bacteria Urine None Seen /hpf; Bilirubin Urine Negative (Negative); Blood Urine 3+ (Negative); Budding Yeast Urine Present /hpf; Color Urine Yellow (Yellow); Glucose Urine UA Negative (Negative); Ketones Urine Negative (Negative); Leukocyte Esterase Ur 2+ LEU/UL (Negative); Need Manual Microscopic Reviewed; Nitrate Urine Negative (Negative); Protein Urine 2+ mg/dL (Negative); RBC Urine >100 /hpf (0-2); Squamous Epithelial Cell Urine Few /hpf (Few); Urobilinogen Urine 0.2 mg/dL (<2.0); WBC Urine >100 /hpf (0-3)
[2023-06-21 21:56] LABS: Specific Grav Ur 1.036 (1.001-1.035)
[2023-06-21 21:57] LABS: Add Urine Microscopic? YES
[2023-06-21] MEDS: SODIUM CHLORIDE 0.9% IV 1,000 ML 999 ML IV CONT ×2 (22:07)
[2023-06-21] MEDS: CEFEPIME 2 GM/NS 50 ML 2 GM/50 ML BAG IVPB (22:10)
[2023-06-21 22:15] LABS: Erythrocyte Sedimentation Rate 131 mm/hr (0-20)
[2023-06-21] MEDS: VANCOMYCIN 1,250 MG/NS 250 ML 1,250 MG/250 ML BAG 166.67 MG IVPB (22:46)
[2023-06-21] MEDS: MEROPENEM 1 GM/NS 100 ML 1 GM/100 ML BAG IVPB (23:07)
--- NOTE | 2023-06-21 23:17 | ED.GENADULT ---
HPI - General Adult General Chief complaint: Altered Mental Status Stated complaint: decreased loc, increased wob Time Seen by Provider: 06/21/23 20:11 History of Present Illness HPI narrative: Patient is a 7-year-old gentleman presents emergency department with chief complaint of decreased level of consciousness. Patient is currently nursing facility for rehab after having osteomyelitis in his lower extremities the patient was found to be saturating in the 70s and was placed on oxygen by EMS the patient is extremely slow to respond but does answer questions once he wakes. The patient has a PICC line in his right upper extremity has been receiving IV antibiotics for osteo. Related Data Home Medications Medication Instructions Recorded Confirmed gabapentin 300 mg capsule 300 mg PO QID 02/15/21 05/11/23 ipratropium 0.5 mg-albuterol 3 mg 3 ml inhalation Q4H PRN Wheezing 02/15/21 05/11/23 (2.5 mg base)/3 mL nebulization soln levothyroxine 100 mcg tablet 100 mcg PO DAILY 02/15/21 05/11/23 insulin NPH-regular 70-30 U-100 20 unit subcut HS 12/08/21 05/11/23 insulin 100 unit/mL subcutaneous pen (Novolin 70-30 FlexPen U-100 Insulin) pravastatin 40 mg tablet 40 mg PO HS 12/08/21 05/11/23 multivitamin with minerals-folic 1 tablet PO DAILY 03/02/22 05/11/23 acid 0.4 mg tablet insulin NPH-regular 70-30 U-100 25 unit subcut QAM 06/23/22 05/11/23 insulin 100 unit/mL subcutaneous pen (Novolin 70-30 FlexPen U-100 Insulin) acetaminophen 325 mg capsule 650 mg PO Q4-6H PRN Pain 09/10/22 05/11/23 (Tylenol) famotidine 20 mg tablet 20 mg PO DAILY ##0 09/10/22 05/11/23 sennosides 8.6 mg-docusate sodium 1 tablet PO BID PRN Constipation 09/10/22 05/11/23 50 mg tablet (Senna Plus) hydrocortisone 0.5 % topical cream 1 applic topical DAILY 09/29/22 05/11/23 silver sulfadiazine 1 % topical 1 applic topical DAILY 09/29/22 05/11/23 cream melatonin 5 mg tablet 5 mg PO HS 03/10/23 05/11/23 Allergies Allergy/AdvReac Type Severity Reaction Status Date / Time No Known Allergies Allergy Verified 09/29/22 13:26 Review of Systems Review of Systems: A 10 system review of systems was completed on the patient and is negative except for what is stated in the HPI. Nursing and ancillary documentation was reviewed. [facility] Past Medical History Medical History Choledocholithiasis (05/2022) Chronic obstructive pulmonary disease Chronic venous insufficiency Depression Diastolic congestive heart failure Gastroesophageal reflux disease Hyperlipidemia Hypertension Hypothyroidism Insulin dependent diabetes mellitus Kidney stones Obstructive sleep apnea Non-compliant with CPAP. Paroxysmal atrial fibrillation Peripheral neuropathy Surgical History Surgical History History of appendectomy History of back surgery History of cataract extraction History of hemorrhoidectomy History of tonsillectomy and adenoidectomy Family History Family History Sibling Family history of obesity Hypertension Family history of diabetes mellitus in first degree relative Family history of heart disease in male family member before age 55 Patient's sister is in good health Patient's brother is Mother Family history of arthritis Family history of malignant neoplasm Patient's mother is Father Patient's father is Other Malignant neoplasm of prostate Social History Social History Social History: Surrogate medical decision maker: Marlys Marrero, . Code status: Full code. Smoking packs per day: 1.5 Smoking cigarettes per day: 30.0 Years smoked: 15 Smoking pack-years: 22.50 Smoking status: Former smoker Tobacco type
[2023-06-21 23:53] LABS: MRSA (PCR) NOT DETECTED (NOT DETECTE)
[2023-06-22] VITALS (23 sets, daily range): BP systolic 93–144; BP diastolic 51–79; PULSE 52–85; RESP 17–21; TEMP 36.2–36.8; O2SAT 94–100; BMI 38.4
[2023-06-22] MEDS: VANCOMYCIN 1,250 MG/NS 250 ML 1,250 MG/250 ML BAG 166.67 MG IVPB (00:25)
[2023-06-22 00:29] LABS: Troponin I 0.022 ng/mL (0.000-0.034)
[2023-06-22] MEDS: SODIUM CHLORIDE 0.9% IV 1,000 ML 125 ML IV CONT (02:30)
[2023-06-22] MEDS: CEFEPIME 2 GM/NS 50 ML 2 GM/50 ML BAG IVPB (05:30)
[2023-06-22 05:51] LABS: Estimated CRCL calculation 97 ml/min; Estimated Glomerular Filt Rate > 60
[2023-06-22 06:08] LABS: Troponin I 0.018 ng/mL (0.000-0.034)
--- NOTE | 2023-06-22 08:45 | PM.IMHP ---
H&P: HPI History of Present Illness Date/Time: 06/22/23 08:45 Chief Complaint: Shortness of breath Narrative: Patient is a 67-year-old gentleman who presents to the emergency department with chief complaint of decreased level of consciousness.? Patient is currently nursing facility for rehab after having osteomyelitis in his lower extremities the patient was found to be saturating in the 70s and was placed on oxygen by EMS. The patient is extremely slow to respond but does answer questions once he wakes.? The patient has a PICC line in his right upper extremity has been receiving IV antibiotics for osteomyelitis with cefepime. He has a history of paroxysmal atrial fibrillation diastolic congestive heart failure insulin-dependent diabetes hypothyroidism hypertension untreated obstructive sleep apnea chronic venous stasis dermatitis chronic indwelling Caots catheter. His recent Echo showed EF of 65-70% moderate concentric increased left ventricular wall thickness diastolic function indeterminate small amount of tricuspid regurgitation and atrial fibrillation.? He also was noted to have bacteremia with E coli and Enterococcus. Wound culture grew Staph aureus and Pseudomonas aeruginosa. Switched to linezolid and cefepime at discharge. Foot MRI showed early osteomyelitis in the lateral aspect of the posterior tuberosity of the calcaneus. He concludes his IV antibiotic therapy/. Orthopedics was also consulted and a recommended antibiotic therapy and no debridement due to multiple comorbidities. In the ED is blood pressure is mildly low and hence has been covered for possible sepsis related altered mental status. His white cell count remained normal is more anemic this visit with hemoglobin at 9 on admission. ABG showed 7.38/41/76/24. Mild hyperkalemia was noted renal function was normal BUN is mildly elevated calcium elevated at 10.3 lactic acid was 1.4. BNP elevated at 7430. Troponin was negative x2. BNP is more elevated now compared to previous levels. Urinalysis showed more WBC and more than 100 RBC with budding yeast. RSV and COVID swab was negative. Showed normal aging brain. CTA was performed which showed no PE but mild pulmonary edema and moderate-sized right and small left pleural effusion stool distends the rectosigmoid. Chest x-ray showed mild pulmonary edema and cardiomegaly. He has been pancultured and admitted for further treatment. Will start meropenem due to history of ESBL and continue vancomycin for now wound care team to see. He Received some IV fluid in the ER. Type 2 diabetes on insulin 70 30 Hypothyroidism Code status full code DVT prophylaxis apixaban Review of Systems Review of Systems: - CONSTITUTIONAL: Denies weight loss, fever and chills. - HEENT: Denies changes in vision and hearing - RESPIRATORY: Denies SOB and cough. - CV: Denies palpitations and CP. - GI: Denies abdominal pain, nausea, vomiting and diarrhea. - : Denies dysuria and urinary frequency. - MSK: Denies myalgia and joint pain. - SKIN: Denies rash and pruritus. - NEUROLOGICAL: Denies headache and syncope. Confused - PSYCHIATRIC: Denies recent changes in mood. Denies anxiety and depression. [facility] Past Medical History Medical History Choledocholithiasis (05/2022) Chronic obstructive pulmonary disease Chronic venous insufficiency Depression Diastolic congestive heart failure Gastroesophageal reflux disease Hyperlipidemia Hypertension Hypothyroidism Insulin dependent diabetes mellitus Kidney stones Obstructive sleep apnea Non-compliant with CPAP. Paroxysmal atrial fibrillation Peripheral neuropathy Surgical History Surgical History History of appendectomy History of back surgery History of cataract extraction History of hemorrhoidectomy History of tonsillectomy and adenoidectomy Family Hist
[2023-06-22 08:54] LABS: Glucose Point of Care 97 mg/dl (65-105)
[2023-06-22 09:10] LABS: Alanine Aminotransferase 15 U/L (6-50); Albumin Level 3.5 g/dL (3.5-5.1); Alkaline Phosphatase 83 U/L (38-126); Anion Gap 8 mmol/L (4-12); Aspartate Amino Transferase 23 U/L (17-59); Bilirubin,Total 0.5 mg/dL (0.2-1.3); Blood Urea Nitrogen 33 mg/dL (9-20); Calcium 9.6 mg/dL (8.4-10.2); Carbon Dioxide 20 mmol/L (22-30); Chloride 110 mmol/L (98-107); Creatine Kinase 34 U/L (55-170); Estimated CRCL calculation 97 ml/min; Estimated Glomerular Filt Rate > 60; Glucose 96 mg/dL (65-110); Magnesium 2.3 mg/dL (1.6-2.3); Potassium 4.8 mmol/L (3.4-5.0); Sodium 138 mmol/L (137-145)
[2023-06-22 09:24] LABS: Basophils Absolute Auto 0.1 K/mm3 (0.0-0.1); Basophils Percent Auto 0.9 % (0.2-1.2); Eosinophils Absolute Auto 0.5 K/mm3 (0-0.3); Eosinophils Percent Auto 7.2 % (0-4.4); Hematocrit 27.4 % (42.0-52.0); Hemoglobin 8.2 g/dL (14.0-18.0); Immature Granulocyte Absolute 0.05 K/mm3 (0.00-0.031); Immature Granulocyte Percent A 0.7 % (0-0.5); Lymphocytes Absolute Auto 1.53 K/mm3 (0.9-3.2); Lymphocytes Percent Auto 21.7 % (18.3-44.2); Mean Corpuscular HGB Conc 29.9 g/dl (32-36); Mean Corpuscular Hemoglobin 27.1 pg (26-34); Mean Corpuscular Volume 90.4 fl (80-100); Mean Platelet Volume 11.8 fl (7.4-10.4); Monocytes Absolute Auto 1.6 K/mm3 (0.1-0.6); Monocytes Percent Auto 23.3 % (2.6-8.5); Neutrophils Absolute Auto 3.3 K/mm3 (1.3-6.7); Neutrophils Percent Auto 46.2 % (45.5-73.1); Platelet Count Result 147 k/mm3 (150-375); Red Blood Count 3.03 M/mm3 (4.6-6.20)
[2023-06-22] MEDS: APIXABAN 5 MG TABLET PO ×2 (09:37→21:15)
[2023-06-22] MEDS: ASPIRIN 81 MG ENTERIC TABLET PO (09:38)
[2023-06-22] MEDS: THERAPEUTIC MULTIVITAMINS/MINERALS TAB (*BKC) 1 TABLET PO (09:38)
[2023-06-22] MEDS: buPROPion HCL XL (24 HR) 150 MG TABCR PO (09:38)
[2023-06-22] MEDS: METOPROLOL SUCCINATE EXT REL 100 MG TABCR PO (09:38)
[2023-06-22] MEDS: SENNA/DOCUSATE SODIUM TABLET 1 TAB PO (09:38)
[2023-06-22] MEDS: polyethylene glycoL 3350 17 GM POWD.PACK PO (09:39)
[2023-06-22] MEDS: FAMOTIDINE 20 MG TABLET PO (09:39)
[2023-06-22] MEDS: INSULIN HUMAN ISOPHAN/REGULAR 70/30 (*BKC) 100 UNITS/ML 18 UNITS SUB-Q (09:40)
[2023-06-22 10:55] LABS: Hemoglobin A1C 8.4 % (<5.7)
[2023-06-22 11:09] LABS: Hypochromasia 1+; Platelet Estimate Adequate (Adequate)
[2023-06-22 11:10] LABS: Anisocytosis 1+; Ovalocytes 1+; Schistocytes None Seen
[2023-06-22 11:39] LABS: Glucose Point of Care 129 mg/dl (65-105)
[2023-06-22] MEDS: MAGNESIUM OXIDE 400 MG TABLET PO (11:44)
[2023-06-22] MEDS: VANCOMYCIN 1,500 MG/NS 500 ML 1,500 MG/500 ML BAG 250 MG IVPB (11:44)
[2023-06-22] MEDS: MEROPENEM 1 GM/NS 100 ML 1 GM/100 ML BAG IVPB ×2 (15:32→21:16)
[2023-06-22 16:59] LABS: Glucose Point of Care 123 mg/dl (65-105)
[2023-06-22 20:31] LABS: Glucose Point of Care 165 mg/dl (65-105)
[2023-06-22] MEDS: PRAVASTATIN SODIUM 20 MG TABLET 40 MG PO (21:15)
[2023-06-22] MEDS: MELATONIN 5 MG TABLET PO (21:15)
[2023-06-22] MEDS: INSULIN HUMAN ISOPHAN/REGULAR 70/30 (*BKC) 100 UNITS/ML 15 UNITS SUB-Q (21:16)
[2023-06-23] VITALS (11 sets, daily range): BP systolic 121–172; BP diastolic 64–78; PULSE 64–112; RESP 18–20; TEMP 36.3–36.9; O2SAT 95–100
[2023-06-23] MEDS: VANCOMYCIN 1,500 MG/NS 500 ML 1,500 MG/500 ML BAG 250 MG IVPB (00:51)
[2023-06-23 04:58] LABS: Basophils Absolute Auto 0.1 K/mm3 (0.0-0.1); Basophils Percent Auto 0.8 % (0.2-1.2); Eosinophils Absolute Auto 0.9 K/mm3 (0-0.3); Eosinophils Percent Auto 9.1 % (0-4.4); Hematocrit 26.8 % (42.0-52.0); Hemoglobin 8.4 g/dL (14.0-18.0); Immature Granulocyte Absolute 0.18 K/mm3 (0.00-0.031); Immature Granulocyte Percent A 1.9 % (0-0.5); Lymphocytes Absolute Auto 1.38 K/mm3 (0.9-3.2); Lymphocytes Percent Auto 14.6 % (18.3-44.2); Mean Corpuscular HGB Conc 31.3 g/dl (32-36); Mean Corpuscular Hemoglobin 27.5 pg (26-34); Mean Corpuscular Volume 87.6 fl (80-100); Monocytes Absolute Auto 1.5 K/mm3 (0.1-0.6); Monocytes Percent Auto 16.1 % (2.6-8.5); Neutrophils Absolute Auto 5.4 K/mm3 (1.3-6.7); Neutrophils Percent Auto 57.5 % (45.5-73.1); Nucleated Red Blood Cells Perc 0.4 % (0.0-0.2); Platelet Count Result 192 k/mm3 (150-375); Red Blood Count 3.06 M/mm3 (4.6-6.20); White Blood Count 9.4 K/mm3 (4.5-10.0)
[2023-06-23 05:10] LABS: Alanine Aminotransferase 21 U/L (6-50); Albumin Level 3.8 g/dL (3.5-5.1); Alkaline Phosphatase 99 U/L (38-126); Anion Gap 6 mmol/L (4-12); Aspartate Amino Transferase 29 U/L (17-59); Bilirubin,Total 0.5 mg/dL (0.2-1.3); Blood Urea Nitrogen 26 mg/dL (9-20); Carbon Dioxide 23 mmol/L (22-30); Chloride 109 mmol/L (98-107); Estimated CRCL calculation 97 ml/min; Estimated Glomerular Filt Rate > 60; Glucose 109 mg/dL (65-110); Magnesium 2.3 mg/dL (1.6-2.3); Sodium 138 mmol/L (137-145)
[2023-06-23] MEDS: LEVOTHYROXINE SODIUM 100 MCG TABLET PO (05:29)
[2023-06-23] MEDS: MEROPENEM 1 GM/NS 100 ML 1 GM/100 ML BAG IVPB ×3 (05:29→22:13)
--- NOTE | 2023-06-23 09:22 | PM.IMPN ---
Progress Note: A&P Assessment and Plan (1) Sepsis: Code(s): A41.9 - Sepsis, unspecified organism Status: Acute (2) Acute UTI: Code(s): N39.0 - Urinary tract infection, site not specified Status: Acute (3) Altered mental status: Code(s): R41.82 - Altered mental status, unspecified Status: Acute (4) Open wound of both lower extremities: Qualifiers: Encounter type: initial encounter Qualified Code(s): S81.801A - Unspecified open wound, right lower leg, initial encounter; S81.802A - Unspecified open wound, left lower leg, initial encounter Code(s): S81.801A - Unspecified open wound, right lower leg, initial encounter; S81.802A - Unspecified open wound, left lower leg, initial encounter Status: Chronic (5) Paroxysmal atrial fibrillation: Code(s): I48.0 - Paroxysmal atrial fibrillation Status: Acute Plan Patient is a 67-year-old gentleman who presents to the emergency department with chief complaint of decreased level of consciousness.? Patient is currently nursing facility for rehab after having osteomyelitis in his lower extremities the patient was found to be saturating in the 70s and was placed on oxygen by EMS. The patient is extremely slow to respond but does answer questions once he wakes.? The patient has a PICC line in his right upper extremity has been receiving IV antibiotics for osteomyelitis with cefepime. He has a history of paroxysmal atrial fibrillation diastolic congestive heart failure insulin-dependent diabetes hypothyroidism hypertension untreated obstructive sleep apnea chronic venous stasis dermatitis chronic indwelling Coats catheter. His recent Echo showed EF of 65-70% moderate concentric increased left ventricular wall thickness diastolic function indeterminate small amount of tricuspid regurgitation and atrial fibrillation.? He also was noted to have bacteremia with E coli and Enterococcus. Wound culture grew Staph aureus and Pseudomonas aeruginosa. Switched to linezolid and cefepime at discharge. Foot MRI showed early osteomyelitis in the lateral aspect of the posterior tuberosity of the calcaneus. He concludes his IV antibiotic therapy/. Orthopedics was also consulted and a recommended antibiotic therapy and no debridement due to multiple comorbidities. In the ED is blood pressure is mildly low and hence has been covered for possible sepsis related altered mental status. His white cell count remained normal is more anemic this visit with hemoglobin at 9 on admission. ABG showed 7.38/41/76/24. Mild hyperkalemia was noted renal function was normal BUN is mildly elevated calcium elevated at 10.3 lactic acid was 1.4. BNP elevated at 7430. Troponin was negative x2. BNP is more elevated now compared to previous levels. Urinalysis showed more WBC and more than 100 RBC with budding yeast. RSV and COVID swab was negative. Showed normal aging brain. CTA was performed which showed no PE but mild pulmonary edema and moderate-sized right and small left pleural effusion stool distends the rectosigmoid. Chest x-ray showed mild pulmonary edema and cardiomegaly. He has been pancultured and admitted for further treatment. Started on meropenem due to history of ESBL and continue vancomycin for now wound care team to see. Urine culture pending. He Received some IV fluid in the ER. Mild hypoxic respiratory failure: Needing oxygen supplementation sepsis versus CHF related as chest x-ray reveals mild pulmonary edema and cardiomegaly. Start diuresis Bilateral pleural effusion right more than left with mild pulmonary edema noted in CTA and chest x-ray will slowly diurese him with Lasix 40 mg normally he is on 20 mg Lasix daily Recent osteomyelitis foot calcaneus: Recheck x-ray today. Concluded 6 weeks treatment for osteomyelitis 06/21/2023 targeted towards Staph aureus and Pseudomonas Type 2 diabetes on insulin 70 30 Hypothyroidism Code status full code DVT prophylaxis ap
[2023-06-23] MEDS: buPROPion HCL XL (24 HR) 150 MG TABCR PO (09:55)
[2023-06-23] MEDS: METOPROLOL SUCCINATE EXT REL 100 MG TABCR PO (09:58)
[2023-06-23] MEDS: SENNA/DOCUSATE SODIUM TABLET 1 TAB PO (09:59)
[2023-06-23] MEDS: INSULIN HUMAN ISOPHAN/REGULAR 70/30 (*BKC) 100 UNITS/ML 18 UNITS SUB-Q (09:59)
[2023-06-23] MEDS: FAMOTIDINE 20 MG TABLET PO (09:59)
[2023-06-23] MEDS: THERAPEUTIC MULTIVITAMINS/MINERALS TAB (*BKC) 1 TABLET PO (09:59)
[2023-06-23] MEDS: APIXABAN 5 MG TABLET PO ×2 (09:59→22:21)
[2023-06-23] MEDS: ASPIRIN 81 MG ENTERIC TABLET PO (09:59)
[2023-06-23 12:05] LABS: Glucose Point of Care 146 mg/dl (65-105)
[2023-06-23] MEDS: FUROSEMIDE INJ 40 MG/4 ML VIAL IV PUSH (12:30)
[2023-06-23] MEDS: MAGNESIUM OXIDE 400 MG TABLET PO (12:31)
[2023-06-23] MEDS: SALINE LOCK FLUSH 10 ML IV PUSH ×2 (13:31→22:14)
[2023-06-23] MEDS: ACETAMINOPHEN 325 MG TABLET 650 MG PO ×2 (13:32→22:16)
[2023-06-23] MEDS: SILVER SULFADIAZINE 1% CR 400 GM JAR (*BKC) 1 APPLIC TOPICAL (16:05)
[2023-06-23 16:29] LABS: Glucose Point of Care 149 mg/dl (65-105)
[2023-06-23 20:05] LABS: Glucose Point of Care 251 mg/dl (65-105)
[2023-06-23] MEDS: PRAVASTATIN SODIUM 20 MG TABLET 40 MG PO (21:28)
[2023-06-23] MEDS: INSULIN HUMAN ISOPHAN/REGULAR 70/30 (*BKC) 100 UNITS/ML 15 UNITS SUB-Q (21:29)
[2023-06-23] MEDS: MELATONIN 5 MG TABLET PO (21:29)
--- NOTE | 2023-06-23 21:58 | PC.NURSE ---
This patient, Taye Marrero Jr., was transferred to [facility] on 06/23/23 at 2155 via bed without issue. Personal belongings sent with patient. Report given to RONNIE Polk. Appropriate documentation sent with patient. Spouse, Yumiko, updated on transfer via telephone.
[2023-06-24] VITALS (7 sets, daily range): BP systolic 151–156; BP diastolic 73–87; PULSE 72–98; RESP 18–24; TEMP 36.4–36.6; O2SAT 91–99
[2023-06-24] MEDS: VANCOMYCIN 1,500 MG/NS 500 ML 1,500 MG/500 ML BAG 250 MG IVPB (03:07)
[2023-06-24] MEDS: LEVOTHYROXINE SODIUM 100 MCG TABLET PO (05:19)
[2023-06-24] MEDS: MEROPENEM 1 GM/NS 100 ML 1 GM/100 ML BAG IVPB ×3 (05:22→22:06)
[2023-06-24] MEDS: SALINE LOCK FLUSH 10 ML IV PUSH ×3 (05:22→22:07)
[2023-06-24 05:45] LABS: Basophils Absolute Auto 0.1 K/mm3 (0.0-0.1); Eosinophils Percent Auto 8.6 % (0-4.4); Hematocrit 27.1 % (42.0-52.0); Hemoglobin 8.4 g/dL (14.0-18.0); Immature Granulocyte Absolute 0.77 K/mm3 (0.00-0.031); Immature Granulocyte Percent A 6.4 % (0-0.5); Lymphocytes Absolute Auto 1.76 K/mm3 (0.9-3.2); Lymphocytes Percent Auto 14.6 % (18.3-44.2); Mean Corpuscular Hemoglobin 27.1 pg (26-34); Mean Corpuscular Volume 87.4 fl (80-100); Mean Platelet Volume 11.4 fl (7.4-10.4); Monocytes Absolute Auto 1.6 K/mm3 (0.1-0.6); Neutrophils Absolute Auto 6.8 K/mm3 (1.3-6.7); Neutrophils Percent Auto 56.4 % (45.5-73.1); Nucleated Red Blood Cells Perc 4.7 % (0.0-0.2); Platelet Count Result 231 k/mm3 (150-375); Red Cell Distribution Width 14.9 % (11.5-14.5)
[2023-06-24 06:21] LABS: Iron 26 ug/dL (49-181)
[2023-06-24 06:26] LABS: Alanine Aminotransferase 21 U/L (6-50); Albumin Level 3.4 g/dL (3.5-5.1); Alkaline Phosphatase 102 U/L (38-126); Anion Gap 4 mmol/L (4-12); Aspartate Amino Transferase 27 U/L (17-59); Bilirubin,Total 0.5 mg/dL (0.2-1.3); Blood Urea Nitrogen 26 mg/dL (9-20); Calcium 9.7 mg/dL (8.4-10.2); Carbon Dioxide 23 mmol/L (22-30); Chloride 109 mmol/L (98-107); Estimated CRCL calculation 109 ml/min; Estimated Glomerular Filt Rate > 60; Glucose 96 mg/dL (65-110); Magnesium 2.1 mg/dL (1.6-2.3); Potassium 4.6 mmol/L (3.4-5.0); Sodium 136 mmol/L (137-145)
[2023-06-24 06:30] LABS: Percent Iron Saturation 14 % (20-50)
[2023-06-24 07:31] LABS: Folic Acid 10.2 ng/mL (2.76->20)
[2023-06-24 08:22] LABS: Glucose Point of Care 100 mg/dl (65-105)
[2023-06-24] MEDS: FAMOTIDINE 20 MG TABLET PO (09:33)
[2023-06-24] MEDS: SENNA/DOCUSATE SODIUM TABLET 1 TAB PO ×2 (09:33→17:33)
[2023-06-24] MEDS: THERAPEUTIC MULTIVITAMINS/MINERALS TAB (*BKC) 1 TABLET PO (09:33)
[2023-06-24] MEDS: ASPIRIN 81 MG ENTERIC TABLET PO (09:33)
[2023-06-24] MEDS: buPROPion HCL XL (24 HR) 150 MG TABCR PO (09:34)
[2023-06-24] MEDS: METOPROLOL SUCCINATE EXT REL 100 MG TABCR PO (09:35)
[2023-06-24] MEDS: APIXABAN 5 MG TABLET PO ×2 (09:40→19:50)
[2023-06-24] MEDS: INSULIN HUMAN ISOPHAN/REGULAR 70/30 (*BKC) 100 UNITS/ML 18 UNITS SUB-Q (09:49)
[2023-06-24] MEDS: polyethylene glycoL 3350 17 GM POWD.PACK PO ×2 (09:49→17:33)
[2023-06-24] MEDS: FLUCONAZOLE 100 MG/NACL 50 ML 100 MG/50 ML BTL 50 MG IVPB (09:53)
[2023-06-24] MEDS: SILVER SULFADIAZINE 1% CR 400 GM JAR (*BKC) 1 APPLIC TOPICAL (09:56)
[2023-06-24] MEDS: ACETAMINOPHEN 325 MG TABLET 650 MG PO ×2 (11:29→19:50)
[2023-06-24 12:11] LABS: Glucose Point of Care 229 mg/dl (65-105)
[2023-06-24] MEDS: MAGNESIUM OXIDE 400 MG TABLET PO (12:23)
[2023-06-24] MEDS: INSULIN ASPART (*BKC) 100 UNITS/ML SUB-Q (12:23)
[2023-06-24 17:20] LABS: Glucose Point of Care 153 mg/dl (65-105)
[2023-06-24] MEDS: PRAVASTATIN SODIUM 20 MG TABLET 40 MG PO (19:50)
[2023-06-24] MEDS: MELATONIN 5 MG TABLET PO (19:50)
[2023-06-24] MEDS: INSULIN HUMAN ISOPHAN/REGULAR 70/30 (*BKC) 100 UNITS/ML 15 UNITS SUB-Q (19:57)
[2023-06-24 19:59] LABS: Glucose Point of Care 175 mg/dl (65-105)
--- NOTE | 2023-06-24 20:19 | P.PNIM_ITS ---
Progress Note: A&P Assessment and Plan (1) Sepsis: Code(s): A41.9 - Sepsis, unspecified organism Status: Acute (2) Acute UTI: Code(s): N39.0 - Urinary tract infection, site not specified Status: Acute (3) Altered mental status: Code(s): R41.82 - Altered mental status, unspecified Status: Acute (4) Open wound of both lower extremities: Qualifiers: Encounter type: initial encounter Qualified Code(s): S81.801A - Unspecified open wound, right lower leg, initial encounter; S81.802A - Unspecified open wound, left lower leg, initial encounter Code(s): S81.801A - Unspecified open wound, right lower leg, initial encounter; S81.802A - Unspecified open wound, left lower leg, initial encounter Status: Chronic (5) Paroxysmal atrial fibrillation: Code(s): I48.0 - Paroxysmal atrial fibrillation Status: Acute Plan Patient is a 67-year-old gentleman who presents to the emergency department with chief complaint of decreased level of consciousness.? Patient is currently nursing facility for rehab after having osteomyelitis in his lower extremities the patient was found to be saturating in the 70s and was placed on oxygen by EMS. The patient is extremely slow to respond but does answer questions once he wakes.? The patient has a PICC line in his right upper extremity has been receiving IV antibiotics for osteomyelitis with cefepime. He has a history of paroxysmal atrial fibrillation diastolic congestive heart failure insulin- dependent diabetes hypothyroidism hypertension untreated obstructive sleep apnea chronic venous stasis dermatitis chronic indwelling Coats catheter. His recent Echo showed EF of 65-70% moderate concentric increased left ventricular wall thickness diastolic function indeterminate small amount of tricuspid regurgitation and atrial fibrillation.? He also was noted to have bacteremia with E coli and Enterococcus. Wound culture grew Staph aureus and Pseudomonas aeruginosa. Switched to linezolid and cefepime at discharge. Foot MRI showed e misael osteomyelitis in the lateral aspect of the posterior tuberosity of the calcaneus. He concludes his IV antibiotic therapy/. Orthopedics was also consulted and a recommended antibiotic therapy and no debridement due to multiple comorbidities. In the ED is blood pressure is mildly low and hence has been covered for possible sepsis related altered mental status. His white cell count remained normal is more anemic this visit with hemoglobin at 9 on admission. ABG showed 7.38/41/76/24. Mild hyperkalemia was noted renal function was normal BUN is mildly elevated calcium elevated at 10.3 lactic acid was 1.4. BNP elevated at 7430. Troponin was negative x2. BNP is more elevated now compared to previous levels. Urinalysis showed more WBC and more than 100 RBC with budding yeast. RSV and COVID swab was negative. Showed normal aging brain. CTA was performed which showed no PE but mild pulmonary edema and moderate-sized right and small left pleural effusion stool distends the rectosigmoid. Chest x-ray showed mild pulmonary edema and cardiomegaly. He has been pancultured and admitted for further treatment. Started on meropenem due to history of ESBL and continue vancomycin for now wound care team to see. Urine culture pending. He Received some IV fluid in the ER. Mild hypoxic respiratory failure: Needing oxygen supplementation sepsis versus CHF related as chest x-ray reveals mild pulmonary edema and cardiomegaly. Start diuresis Bilateral pleural effusion right more than left with mild pulmonary edema noted in CTA and chest x-ray will slowly diurese him with Lasix 40 mg normally he is on 20 mg Lasix riley
[2023-06-24] MEDS: IPRATROPIUM 0.5 MG/ALBUTEROL SULFATE 2.5 MG AMPUL.NEB 3 ML INHALATION (21:13)
[2023-06-24] MEDS: FUROSEMIDE INJ 40 MG/4 ML VIAL IV PUSH (22:07)
[2023-06-25 00:27] LABS: Immunochemical Fecal Occult Bl Positive (N)
[2023-06-25 00:28] LABS: IFOB Positive Control Positive
[2023-06-25] MEDS: VANCOMYCIN 1,500 MG/NS 500 ML 1,500 MG/500 ML BAG 250 MG IVPB (04:06)
[2023-06-25 06:00] VITALS: BP 161/92; PULSE 74; RESP 22; TEMP 36.4; O2SAT 95
[2023-06-25] MEDS: LEVOTHYROXINE SODIUM 100 MCG TABLET PO (06:05)
[2023-06-25] MEDS: SALINE LOCK FLUSH 10 ML IV PUSH ×2 (06:05→13:38)
[2023-06-25] MEDS: MEROPENEM 1 GM/NS 100 ML 1 GM/100 ML BAG IVPB ×2 (06:09→13:38)
[2023-06-25 06:11] LABS: Hematocrit 29.2 % (42.0-52.0); Hemoglobin 8.8 g/dL (14.0-18.0); Mean Corpuscular HGB Conc 30.1 g/dl (32-36); Mean Corpuscular Hemoglobin 26.7 pg (26-34); Mean Corpuscular Volume 88.8 fl (80-100); Mean Platelet Volume 11.2 fl (7.4-10.4); Platelet Count Result 297 k/mm3 (150-375); Red Blood Count 3.29 M/mm3 (4.6-6.20); Red Cell Distribution Width 15.3 % (11.5-14.5); White Blood Count 11.2 K/mm3 (4.5-10.0)
[2023-06-25 06:25] LABS: Albumin Level 3.9 g/dL (3.5-5.1); Anion Gap 5 mmol/L (4-12); Blood Urea Nitrogen 25 mg/dL (9-20); Calcium 10.2 mg/dL (8.4-10.2); Carbon Dioxide 24 mmol/L (22-30); Chloride 105 mmol/L (98-107); Estimated CRCL calculation 97 ml/min; Estimated Glomerular Filt Rate > 60; Glucose 102 mg/dL (65-110); Magnesium 2.3 mg/dL (1.6-2.3); Phosphorus 2.7 mg/dL (2.5-4.5); Potassium 4.3 mmol/L (3.4-5.0); Sodium 134 mmol/L (137-145)
[2023-06-25 06:59] LABS: Anisocytosis 1+; Band Neutrophils Percent 2 % (0-6); Basophils Absolute Manual 0.11 K/mm3 (0.0-0.1); Basophils Percent Manual 1 % (0-1); Eosinophils Absolute Manual 0.44 K/mm3 (0.02-0.50); Eosinophils Percent Manual 4 % (0-4); Lymphocytes Absolute Manual 1.56 K/mm3 (1.1-4.5); Monocytes Absolute Manual 0.33 K/mm3 (0.1-0.90); Monocytes Percent Manual 3 % (3-9); Neutrophils Absolute Manual 8.73 K/mm3 (1.3-6.7); Neutrophils Percent Manual 76 % (46-73); Nucleated Red Blood Cells 9 %; Platelet Estimate Adequate (Adequate); Schistocytes None Seen; Total Cells Counted 100
[2023-06-25 07:00] LABS: Hypochromasia 1+; Polychromasia 1+
[2023-06-25 07:51] LABS: Glucose Point of Care 86 mg/dl (65-105)
[2023-06-25 08:00] VITALS: PULSE 74; O2SAT 92
[2023-06-25] MEDS: INSULIN HUMAN ISOPHAN/REGULAR 70/30 (*BKC) 100 UNITS/ML 9 UNITS SUB-Q (09:05)
[2023-06-25] MEDS: polyethylene glycoL 3350 17 GM POWD.PACK PO (09:12)
[2023-06-25] MEDS: FUROSEMIDE INJ 40 MG/4 ML VIAL IV PUSH ×2 (09:17→20:17)
[2023-06-25 09:18] VITALS: PULSE 74
[2023-06-25] MEDS: buPROPion HCL XL (24 HR) 150 MG TABCR PO (09:18)
[2023-06-25] MEDS: THERAPEUTIC MULTIVITAMINS/MINERALS TAB (*BKC) 1 TABLET PO (09:18)
[2023-06-25] MEDS: APIXABAN 5 MG TABLET PO (09:18)
[2023-06-25] MEDS: ASPIRIN 81 MG ENTERIC TABLET PO (09:18)
[2023-06-25] MEDS: FLUCONAZOLE 100 MG/NACL 50 ML 100 MG/50 ML BTL 50 MG IVPB (09:18)
[2023-06-25] MEDS: METOPROLOL SUCCINATE EXT REL 100 MG TABCR PO (09:18)
[2023-06-25] MEDS: FAMOTIDINE 20 MG TABLET PO (09:18)
[2023-06-25] MEDS: SENNA/DOCUSATE SODIUM TABLET 1 TAB PO ×2 (09:18→16:39)
[2023-06-25] MEDS: EUCERIN CREAM 120 GM JAR 1 APPLIC TOPICAL (09:19)
[2023-06-25] MEDS: SILVER SULFADIAZINE 1% CR 400 GM JAR (*BKC) 1 APPLIC TOPICAL (10:36)
[2023-06-25 11:47] LABS: Glucose Point of Care 162 mg/dl (65-105)
[2023-06-25] MEDS: MAGNESIUM OXIDE 400 MG TABLET PO (11:58)
[2023-06-25 14:00] VITALS: BP 156/82; PULSE 85; RESP 18; TEMP 36.4; O2SAT 96
[2023-06-25] MEDS: INSULIN HUMAN ISOPHAN/REGULAR 70/30 (*BKC) 100 UNITS/ML 15 UNITS SUB-Q (16:43)
--- NOTE | 2023-06-25 16:52 | PM.IMPN ---
Progress Note: A&P Assessment and Plan (1) Sepsis: Code(s): A41.9 - Sepsis, unspecified organism Status: Acute (2) Acute UTI: Code(s): N39.0 - Urinary tract infection, site not specified Status: Acute (3) Altered mental status: Code(s): R41.82 - Altered mental status, unspecified Status: Acute (4) Open wound of both lower extremities: Qualifiers: Encounter type: initial encounter Qualified Code(s): S81.801A - Unspecified open wound, right lower leg, initial encounter; S81.802A - Unspecified open wound, left lower leg, initial encounter Code(s): S81.801A - Unspecified open wound, right lower leg, initial encounter; S81.802A - Unspecified open wound, left lower leg, initial encounter Status: Chronic (5) Paroxysmal atrial fibrillation: Code(s): I48.0 - Paroxysmal atrial fibrillation Status: Acute (6) Diastolic congestive heart failure: Code(s): I50.30 - Unspecified diastolic (congestive) heart failure Status: Acute Plan Patient here for decreased level of consciousness and hypoxia.? Patient is currently nursing facility for rehab after having osteomyelitis in his lower extremities. He concludes his IV antibiotic therapy 06/21/23. In the ED, his blood pressure was mildly low and hence has been covered for possible sepsis. Normal WBC. ABG showed 7.38/41/76. on 4L. UA concerning for UTI. RSV, influenza and COVID swab was negative. Head CT showing normal aging brain. CTA Chest/abdomen/pelvis shwoing no PE but mild pulmonary edema and bilateral (R>L) pleural effusions. Stool distends the rectosigmoid. He was started on meropenem and vancomycin. Wound care team consulted BCx NGTD UCx Candice albicans. Foot xray showing no evidence of osteomyelitis. Mild hypoxic respiratory failure and bilateral pleural effusion (R>L) with mild pulmonary edema noted in CTA felt related to diastolic CHF. Echo in April noted. lasix IV started. Wean O2 as toelrated Recent osteomyelitis foot calcaneus. He has completed 6 weeks of treatment for osteomyelitis. BCx negative. Repeat xray showing no evidence of osteomyelitis. Suspect sepsis symptoms related to complicated UTI. Patient with chronic indwelling Coats. Change out Coats if not done in ED. Will stop abx since no evidence of recurrent bacterial infection Eucerin cream for his bilateral legs. Stool guaiac positive. No emiliano bleeding or acute blood loss. Colonoscopy in 2017 showing small diverticulosis with recommendation to have repeat colonoscopy in 5 years. He is on Eliquis chronically. Hgb was 11-12 range 1 month ago but now down to 8 range. Related to stecoral ulcer? GI consult. Monitor HH. Change pepcid to protonix. Hold Eliquis. Continue the increased MiraLax dose for the stool impaction. Code status full code DVT prophylaxis apixaban Subjective Date/time seen: 06/25/23 16:52 Interval history: 67yo male with pAFib, recently treated for osteomyelitis and DM here for AMS Slept okay. No n/v. No CP or SOB. Eating well. Called by RN later and informed that he pulled out his PICC line Exam Narrative: AF 97.5 156/82 85 18 96% 2L Gen - NARD Chest - faint expiratory crackles, nml RR CV -irregularly irregular. Abd -soft. Nontender. Obese. Ext -2+ pedal edema. Psych - Nml mood and affect Skin - Bilateral LE scale with dried eschar. LE dressings clean and dry Objective Data Vital Signs Vital Signs: Vital Signs - 24 hr 06/24/23 21:13 06/24/23 21:14 06/24/23 22:00 Temperature 97.8 F Pulse Rate 72 98 Respiratory Rate 18 24 H Blood Pressure 156/87 H Pulse Oximetry 99 91 Oxygen Delivery Nasal Cannula Oxygen Flow Rate 2 Fraction of Inspired Oxygen 28 06/25/23 06:00 06/25/23 09:18 06/25/23 08:00 Temperature 97.6 F Pulse Rate 74 74 74 Respiratory Rate 22 H Blood Pressure 161/92 H Pulse Oximetry 95 92 Oxygen Delivery Nasal Cannula Oxygen Flow Rate 2 Fraction of I
[2023-06-25 16:58] LABS: Glucose Point of Care 153 mg/dl (65-105)
[2023-06-25 18:08] LABS: Hematocrit 28.9 % (42.0-52.0)
[2023-06-25 20:00] VITALS: O2SAT 91
[2023-06-25 20:06] LABS: Glucose Point of Care 209 mg/dl (65-105)
[2023-06-25] MEDS: MELATONIN 5 MG TABLET PO (20:17)
[2023-06-25] MEDS: PRAVASTATIN SODIUM 20 MG TABLET 40 MG PO (20:17)
[2023-06-25] MEDS: PANTOPRAZOLE SODIUM IV 40 MG VIAL IV PUSH (20:22)
[2023-06-25] MEDS: ACETAMINOPHEN 325 MG TABLET 650 MG PO (20:30)
[2023-06-25 21:13] VITALS: BP 149/76; PULSE 76; RESP 22; TEMP 36.5; O2SAT 91
--- NOTE | 2023-06-26 04:02 | WPDGICN ---
Assessment and Plan Assessment and plan (1) Occult blood in stools: Code(s): R19.5 - Other fecal abnormalities Status: Acute Assessment and Plan: recommend colonoscopy in few weeks when more stable we can set up as outpatient no overt gib (2) Sepsis: Code(s): A41.9 - Sepsis, unspecified organism Status: Acute Assessment and Plan: on treatment (3) Acute UTI: Code(s): N39.0 - Urinary tract infection, site not specified Status: Acute (4) Osteomyelitis: Code(s): M86.9 - Osteomyelitis, unspecified Status: Acute (5) Altered mental status: Code(s): R41.82 - Altered mental status, unspecified Status: Acute Assessment and Plan: he has been confused (6) Acute on chronic anemia: Code(s): D64.9 - Anemia, unspecified Status: Acute Assessment and Plan: no overt gib colonoscopy in few weeks monitor for obvious bleeding GI Consult Note Consult date/time: 06/26/23 04:02 Reason for consult: FOBT+, anemia. HPI: Taye Marrero is a 67 year old male who was brought here from local [facility], he is staying there for rehab after having osteomyelitis in his lower extremities. He was confused and found to be hypoxic. He has a PICC line in his right upper extremity has been receiving IV antibiotics for osteomyelitis with cefepime.? He has a history of paroxysmal atrial fibrillation, diastolic congestive heart failure, insulin-dependent diabetes chronic anemia, hypertension, chronic venous stasis, chronic indwelling [place] catheter.? Admitted with diagnosis of encephalopathy and sepsis.? Also noted again with anemia, hemoglobin at 9 on admission.? Troponin was negative x2.? BNP is more elevated now compared to previous levels. Urinalysis showed more WBC and more than 100 RBC with budding yeast.? RSV and COVID swab was negative.? Showed normal aging brain.? CTA was performed which showed no PE but mild pulmonary edema and moderate-sized right and small left pleural effusion stool distends the rectosigmoid.?On abx. FOBT + but no overt gib. He is poor historian, he thinks that had colonoscopy but can not tell me details. Review of Systems Review of Systems: - CONSTITUTIONAL: Denies weight loss, fever and chills. - HEENT: Denies changes in vision and hearing - RESPIRATORY: Denies SOB and cough. - CV: Denies palpitations and CP. - GI: Denies abdominal pain, nausea, vomiting and diarrhea. - : [place] - MSK: h/p osteomyelitis - SKIN: Denies rash and pruritus. - NEUROLOGICAL: Denies headache and syncope. Confused - PSYCHIATRIC: confusion. [facility] Past Medical History Medical History (Updated 06/26/23 @ 04:06 by Keven Ferreira MD) Acute on chronic anemia Choledocholithiasis (05/2022) Chronic obstructive pulmonary disease Chronic venous insufficiency Depression Diastolic congestive heart failure Gastroesophageal reflux disease Hyperlipidemia Hypertension Hypothyroidism Insulin dependent diabetes mellitus Kidney stones Obstructive sleep apnea Non-compliant with CPAP. Occult blood in stools Paroxysmal atrial fibrillation Peripheral neuropathy Surgical History Surgical History History of appendectomy History of back surgery History of cataract extraction History of hemorrhoidectomy History of tonsillectomy and adenoidectomy Family History Family History Sibling Family history of obesity Hypertension Family history of diabetes mellitus in first degree relative Family history of heart disease in male family member before age 55 Patient's sister is in good health Patient's brother is Mother Family history of arthritis Family history of malignant neoplasm Patient's mother is Father Patient's father is
[2023-06-26] MEDS: LEVOTHYROXINE SODIUM 100 MCG TABLET PO (05:34)
[2023-06-26 05:58] VITALS: BP 165/97; PULSE 66; RESP 20; TEMP 36.2; O2SAT 95
[2023-06-26] MEDS: ACETAMINOPHEN 325 MG TABLET 650 MG PO (06:06)
[2023-06-26 06:46] LABS: Hematocrit 28.9 % (42.0-52.0); Hemoglobin 8.8 g/dL (14.0-18.0); Mean Corpuscular HGB Conc 30.4 g/dl (32-36); Mean Corpuscular Hemoglobin 26.9 pg (26-34); Mean Corpuscular Volume 88.4 fl (80-100); Mean Platelet Volume 11.1 fl (7.4-10.4); Platelet Count Result 319 k/mm3 (150-375); Red Blood Count 3.27 M/mm3 (4.6-6.20); White Blood Count 8.9 K/mm3 (4.5-10.0)
[2023-06-26 06:58] LABS: Anion Gap 4 mmol/L (4-12); Blood Urea Nitrogen 24 mg/dL (9-20); Carbon Dioxide 30 mmol/L (22-30); Chloride 100 mmol/L (98-107); Estimated CRCL calculation 97 ml/min; Estimated Glomerular Filt Rate > 60; Glucose 125 mg/dL (65-110); Potassium 4.2 mmol/L (3.4-5.0); Sodium 134 mmol/L (137-145)
[2023-06-26 07:51] LABS: Glucose Point of Care 123 mg/dl (65-105)
[2023-06-26 08:36] VITALS: O2SAT 92
[2023-06-26 08:50] VITALS: O2SAT 94
[2023-06-26 08:51] VITALS: PULSE 68
[2023-06-26] MEDS: METOPROLOL SUCCINATE EXT REL 100 MG TABCR PO (08:51)
[2023-06-26] MEDS: buPROPion HCL XL (24 HR) 150 MG TABCR PO (08:51)
[2023-06-26] MEDS: THERAPEUTIC MULTIVITAMINS/MINERALS TAB (*BKC) 1 TABLET PO (08:51)
[2023-06-26] MEDS: ASPIRIN 81 MG ENTERIC TABLET PO (08:51)
[2023-06-26] MEDS: SENNA/DOCUSATE SODIUM TABLET 1 TAB PO (08:52)
[2023-06-26] MEDS: FLUCONAZOLE 100 MG TABLET 200 MG PO (08:52)
[2023-06-26] MEDS: EUCERIN CREAM 120 GM JAR 1 APPLIC TOPICAL (08:52)
[2023-06-26] MEDS: INSULIN HUMAN ISOPHAN/REGULAR 70/30 (*BKC) 100 UNITS/ML 9 UNITS SUB-Q (08:55)
[2023-06-26] MEDS: polyethylene glycoL 3350 17 GM POWD.PACK PO (08:56)
[2023-06-26] MEDS: PANTOPRAZOLE SODIUM IV 40 MG VIAL IV PUSH (10:01)
[2023-06-26] MEDS: FUROSEMIDE INJ 40 MG/4 ML VIAL IV PUSH (10:01)
[2023-06-26 12:08] LABS: Glucose Point of Care 185 mg/dl (65-105)
[2023-06-26] MEDS: MAGNESIUM OXIDE 400 MG TABLET PO (12:54)
[2023-06-26] MEDS: SILVER SULFADIAZINE 1% CR 400 GM JAR (*BKC) 1 APPLIC TOPICAL (13:06)
[2023-06-26 14:00] VITALS: BP 149/83; PULSE 79; RESP 18; TEMP 37.3; O2SAT 94
--- NOTE | 2023-06-26 16:51 | PM.DS ---
DS: Admitting Diagnosis Discharge Date 06/26/23 Admitting Diagnosis Shortness of breath and AMS DS: Discharge Diagnosis Discharge Diagnosis (1) Sepsis: Code(s): A41.9 - Sepsis, unspecified organism Status: Acute (2) Acute UTI: Code(s): N39.0 - Urinary tract infection, site not specified Status: Acute (3) Altered mental status: Code(s): R41.82 - Altered mental status, unspecified Status: Acute (4) Open wound of both lower extremities: Qualifiers: Encounter type: initial encounter Qualified Code(s): S81.801A - Unspecified open wound, right lower leg, initial encounter; S81.802A - Unspecified open wound, left lower leg, initial encounter Code(s): S81.801A - Unspecified open wound, right lower leg, initial encounter; S81.802A - Unspecified open wound, left lower leg, initial encounter Status: Chronic (5) Paroxysmal atrial fibrillation: Code(s): I48.0 - Paroxysmal atrial fibrillation Status: Acute (6) Diastolic congestive heart failure: Code(s): I50.30 - Unspecified diastolic (congestive) heart failure Status: Acute (7) Occult blood in stools: Code(s): R19.5 - Other fecal abnormalities Status: Acute (8) Acute on chronic anemia: Code(s): D64.9 - Anemia, unspecified Status: Acute DS: Summary Hospital Course Reason for hospitalization: 67yo male with pAFib, recently treated for osteomyelitis and DM here for shortness of breath and AMS. Please see H&P for details. Hospital Course: Patient here for decreased level of consciousness, SOB and hypoxia.? Patient is currently nursing facility for rehab after having osteomyelitis in his left foot calcaneus. He finished his IV antibiotic therapy 06/21/23. In the ED, his blood pressure was mildly low and hence was covered for possible sepsis. Normal WBC. ABG showed 7.38/41/76. on 4L. UA concerning for UTI. RSV, influenza and COVID swab was negative. Head CT showing normal aging brain. CTA Chest/abdomen/pelvis showing no PE but mild pulmonary edema and bilateral (R>L) pleural effusions. Stool distends the rectosigmoid. He was started on meropenem and vancomycin. Wound care team consulted for persistent lower extremity wounds. BCx NGTD. UCx grew Candice albicans. Foot xray showing no evidence of osteomyelitis. Mild hypoxic respiratory failure and bilateral pleural effusion (R>L) with mild pulmonary edema noted by CT felt related to acute on chronic diastolic CHF. Echo in April noted. Lasix IV started with good urine output. Suspect sepsis symptoms related to complicated UTI. Patient with chronic indwelling Coats. Changed out Coats. We stopped abx since no evidence of recurrent bacterial infection. WBC normalized. Stool guaiac positive. No emiliano bleeding or acute blood loss. Colonoscopy in 2017 showing small diverticulosis with recommendation to have repeat colonoscopy in 5 years. He is on Eliquis chronically. Hgb was 11-12 range 1 month ago but now down to 8-9 range. Related to stercoral ulcer? GI consulted and recommended outpatient colonoscopy. Monitored and Hgb remained stable. Changed pepcid to protonix. We held Eliquis. Increased MiraLax for the stool impaction. He did well overall and was able to be discharged on 06/26/23. Status at Discharge Cognitive/behavioral status at discharge: stable Time Spent with Patient Time attestation: Total time spent providing and/or coordinating discharge services: 37 minutes Time spent: Greater than 30 minutes Exam Narrative: AF 99.1 149/83 79 18 94% 2L Gen - NARD Chest - faint expiratory crackles, nml RR CV -irregularly irregular. Abd -soft. Nontender. Obese. Ext - trace pedal edema. Psych - Nml mood and affect Skin - Bilateral LE scale with dried eschar. LE dressings clean and dry DS: Data Data Completed and Pending Labs on day of discharge: Labs from last 24 hours 06/26/23 06/26/23 06/26/23 11:4
[2023-06-26 16:53] LABS: Glucose Point of Care 195 mg/dl (65-105)
[2023-06-26] MEDS: INSULIN HUMAN ISOPHAN/REGULAR 70/30 (*BKC) 100 UNITS/ML 15 UNITS SUB-Q (18:00)
[2023-06-26 18:07] LABS: SARS-CoV-2 RNA PCR Negative (Negative)
--- NOTE | 2023-06-26 18:46 | PC.NURSE ---
On 06/26/23, the ELECTRON BEAM WELDING MACHINE OPERATOR, Quiana, provided care and [facility]. I have reviewed the ELECTRON BEAM WELDING MACHINE OPERATOR's documentation and agree with the findings.
== END 2023-06-26 18:30 | DRG 698 ==
LOC: ANHED 23:34 → ANHIMU 23:49 → ANH3MEDSUR 06-23 21:58
PROVIDERS: Internal Medicine; Admitting Provider Internal Medicine; Emergency Provider Emergency Medicine; PCP Internal Medicine; Visit Provider Internal Medicine
DX: T83.511A Infection and inflammatory reaction due to indwelling urethral catheter, initial encounter (principal); A41.9 Sepsis, unspecified organism; G93.41 Metabolic encephalopathy; J96.01 Acute respiratory failure with hypoxia; B37.49 Other urogenital candidiasis; I50.32 Chronic diastolic (congestive) heart failure; J44.9 Chronic obstructive pulmonary disease, unspecified; K21.9 Gastro-esophageal reflux disease without esophagitis; E78.5 Hyperlipidemia, unspecified; I11.0 Hypertensive heart disease with heart failure; G47.33 Obstructive sleep apnea (adult) (pediatric); I48.0 Paroxysmal atrial fibrillation; E11.42 Type 2 diabetes mellitus with diabetic polyneuropathy; E03.9 Hypothyroidism, unspecified; E87.5 Hyperkalemia; D64.9 Anemia, unspecified; I87.2 Venous insufficiency (chronic) (peripheral); Z90.49 Acquired absence of other specified parts of digestive tract; Z98.49 Cataract extraction status, unspecified eye; Z87.891 Personal history of nicotine dependence; Z20.822 Contact with and (suspected) exposure to COVID-19
CPT/HCPCS: 36415; 36600; 70450; 71045; 71275; 73630; 74177; 80048; 80053; 80069; 80202; 81001; 82274; 82550; 82565; 82607; 82728; 82746; 82805; 82948; 83036; 83540; 83550; 83605; 83690; 83735; 83880; 84145; 84484; 85014; 85018; 85025; 85027; 85610; 85652; 85730; 86140; 87040; 87086; 87088; 87106; 87635; 87637; 87641; 93005; 94640; 96361; 96365; 96367; 96375; 96376; 99285; A9270; C9113; G0378; J0692; J1450; J1815; J1940; J2185; J3370; J7030; Q9967

== ENCOUNTER 2023-08-07 10:26 | Inpatient (IN) | payer MEDICARE, MEDICAID, SELFPAY ==
[2023-08-07] VITALS (33 sets, daily range): BP systolic 92–159; BP diastolic 40–99; PULSE 54–127; RESP 16–130; TEMP 36.1–38.5; O2SAT 96–99; BMI 37.8
--- NOTE | ~2023-08-07 | XR_ITS ---
XR heel LT min 2V Ordering provider: Nataliya Way History: . chronic wound . Comparison: None. FINDINGS: BONES: No acute fracture or dislocation. Osteopenia of the bones. Protruding bone is seen medially. P ossibility of fracture cannot be excluded although less likely. JOINT SPACES: Narrowing of the intertarsal joints. No tarsal coalition. SOFT TISSUES: Soft tissue swelling is seen posteriorly with a lucency which may indicate infection. O ne is seen posteriorly IMPRESSION: No definite acute osseous abnormality left foot. Protruding bone seen laterally. The fracture is less likely. Clinical correlation advised. Soft tissue swelling with wound is seen posteriorly with a lucency which may indicate infection. Clin ical evaluation advised. Reviewed, dictated and finalized at location A. IMPRESSION: No definite acute osseous abnormality left foot. Protruding bone seen laterally . The fracture is less likely. Clinical correlation advised. Soft tissue swelling with wound is seen posteriorly with a lucency which may in dicate infection. Clinical evaluation advised.
--- NOTE | ~2023-08-07 | MR_ITS ---
EXAMINATION: MR foot LT wo con DATE: 08/13/2023 12:53 INDICATION: Concern for osteomyelitis with chronic wound at the left heel TECHNIQUE: Magnetic resonance imaging (MRI) of the left mid and hindfoot was performed without intrav enous contrast. Sequences included sagittal T1-weighted FSE, sagittal fluid sensitive FSE STIR, coron al PD-weighted FS FSE, coronal T1-weighted FSE, axial PD-weighted FS FSE, and axial PD-weighted FSE. COMPARISON: Left heel radiograph dated 08/11/2023 FINDINGS: There is a deep ulceration with loss of subcutaneous fat overlying the plantar/lateral aspect of the posterior tuberosity of the calcaneus. There is prominent marrow edema and mild decreased T1 signal i n the underlying bone. There is loss of the hypointense cortical margin to the bone on the MR images. Comparison with prior radiographs demonstrates similar irregular trabecular margin to the bone with loss of the overlying linear cortex. Findings are consistent with osteolysis in the setting of osteom yelitis. There is normal marrow signal throughout the remainder of the mid and hindfoot and of the vi sualized distal tibia and fibula. Magnetic field artifact in the distal tibia corresponding to the di stal tips and antegrade intramedullary darin with interlocking metaphyseal screw fixation. There is a p rominent somewhat atypically medially directed plantar calcaneal spur. Mild polyarticular osteoarthri tis throughout the mid and hindfoot. No joint effusions to suggest a septic arthritis. The Lisfranc l igament as well as the medial and lateral stabilizing ligaments of the ankle remain intact. Small ent hesophytes at the calcaneal insertion of the distal Achilles tendon. Visual is portions of the flexor and extensor tendons are otherwise unremarkable. There is prominent fatty atrophy of the intrinsic m usculature of the foot which could be seen in the setting of chronic diabetic neuropathy. IMPRESSION: 1. Osteomyelitis with cortical erosion at the plantar/lateral aspect of the posterior tuberosity of t he calcaneus along a deep ulceration. Reviewed, dictated and finalized at location A. IMPRESSION: 1. Osteomyelitis with cortical erosion at the plantar/lateral aspect of the pos terior tuberosity of the calcaneus along a deep ulceration.
--- NOTE | ~2023-08-07 | XR_ITS ---
Portable chest x-ray Comparison: 06/24/2023 Clinical History: Altered mental status Findings: There is mild central haziness bilaterally, as which could reflect minimal pulmonary edema . No pleural effusion or pneumothorax. Cardiomediastinal silhouette is stable. Bones and soft tissue s are unremarkable. Impression: Possible minimal central pulmonary edema. Reviewed, dictated and finalized at location . Impression: Possible minimal central pulmonary edema.
--- NOTE | ~2023-08-07 | CT_ITS ---
EXAMINATION: CT brain wo con DATE: 08/07/2023 10:59 INDICATION: Headache. TECHNIQUE: Computed tomography (CT) of the head was performed without intravenous contrast. The mA wa s adjusted according to patient size. Iterative reconstruction technique was employed. The dose-lengt h product was 605.33 mGy-cm. COMPARISON: Head CT 06/21/2023 FINDINGS: There are scattered areas of low attenuation in the cerebral white matter, which is within normal limits for the patient's age. There is no intracranial hemorrhage, acute infarction, or abnorm al intracranial mass lesion. The ventricles are normal in size. There is mild mucosal thickening in t he ethmoid sinuses. There are likely changes of left ocular lens replacement surgery. The mastoid air cells are normal. There is cerumen in the external auditory canals. IMPRESSION: 1. Normal aging brain. Reviewed, dictated and finalized at location A. IMPRESSION: 1. Normal aging brain.
--- NOTE | ~2023-08-07 | CT_ITS ---
EXAMINATION: CT cervical spine wo con DATE: 08/07/2023 10:59 INDICATION: Neck pain. TECHNIQUE: Computed tomography (CT) of the cervical spine was performed without intravenous contrast. Automated exposure control and iterative reconstruction technique were employed. The dose-length pro duct was 559.07 mGy-cm. COMPARISON: None FINDINGS: There is mild emphysema. There is a degrees dextrocurvature of cervical spine. Vertebral sunshine dy heights are normal. There is severely decreased disc height at C5-C6 and C6-C7. The following disc levels are specifically discussed: C2-C3: There is mild left uncovertebral joint osteoarthritis. There is mild bilateral facet joint ost eoarthritis. There is mild left neural foraminal stenosis. There is no central canal stenosis. C3-C4: There is mild right and severe left uncovertebral joint osteoarthritis. There is mild right an d severe left facet joint osteoarthritis. There is mild left neural foraminal stenosis. There is no c entral canal stenosis. C4-C5: There is mild bilateral uncovertebral joint osteoarthritis. There is mild bilateral facet join t osteoarthritis. There is no neural foraminal stenosis. There is mild central canal stenosis. C5-C6: There is severe bilateral uncovertebral joint osteoarthritis. There is moderate bilateral face t joint osteoarthritis. There is moderate right and mild left neural foraminal stenosis. There is mil d central canal stenosis. C6-C7: There is severe bilateral uncovertebral joint osteoarthritis. There is mild bilateral facet edwin int osteoarthritis. There is mild bilateral neural foraminal stenosis. There is mild central canal st enosis. C7-T1: There is mild right and moderate left uncovertebral joint osteoarthritis. There is mild bilate ral facet joint osteoarthritis. There is mild bilateral neural foraminal stenosis. There is mild cent ral canal stenosis. IMPRESSION: 1. Severe cervical spondylosis. Reviewed, dictated and finalized at location A.
--- NOTE | 2023-08-07 10:20 | ED.NECK ---
HPI - Neck Pain/Injury General Chief Complaint: Neck Pain/Injury Stated Complaint: sudden onset neck/head pain Time Seen by Provider: 08/07/23 10:28 Source: patient Mode of arrival: ambulatory Limitations: no limitations History of Present Illness HPI Narrative: Patient is a 68-year-old male presenting to the emergency room with by EMS for initial complaints of headache and neck pain that was sudden onset today. Patient is from a local nursing rehab facility. EMS reports that patient's heart rate was in the 130s and would bump up to the 170s. He does have history of AFib. Patient is alert oriented x1 at this time. Denies any pain currently. he denies any shortness of breath or chest pain. Related Data Home Medications Medication Instructions Recorded Confirmed gabapentin 300 mg capsule 300 mg PO QID 02/15/21 06/22/23 ipratropium 0.5 mg-albuterol 3 mg 3 ml inhalation Q4H PRN Wheezing 02/15/21 06/22/23 (2.5 mg base)/3 mL nebulization soln levothyroxine 100 mcg tablet 100 mcg PO DAILY 02/15/21 06/22/23 pravastatin 40 mg tablet 40 mg PO HS 12/08/21 06/22/23 multivitamin with minerals-folic 1 tablet PO DAILY 03/02/22 06/22/23 acid 0.4 mg tablet acetaminophen 325 mg capsule 650 mg PO Q4-6H PRN Pain 09/10/22 06/22/23 (Tylenol) sennosides 8.6 mg-docusate sodium 1 tablet PO BID Constipation 09/10/22 06/22/23 50 mg tablet (Senna Plus) silver sulfadiazine 1 % topical 1 applic topical DAILY 09/29/22 06/22/23 cream melatonin 5 mg tablet 5 mg PO HS 03/10/23 06/22/23 Allergies Allergy/AdvReac Type Severity Reaction Status Date / Time No Known Allergies Allergy Verified 08/07/23 10:43 Review of Systems Review of Systems: Pertinent positives per HPI. Patient denies any fever, chills, rash, headache, visual changes, dizziness, cough, runny nose, sore throat, shortness of breath, chest pain, palpitations, nausea, vomiting, diarrhea, constipation, abdominal pain, or any urinary issues. [facility] Past Medical History Medical History (Updated 08/07/23 @ 14:17 by Cuauhtemoc Montaño APRN) A-fib Acute on chronic anemia Choledocholithiasis (05/2022) Chronic obstructive pulmonary disease Chronic venous insufficiency Depression Diastolic congestive heart failure Gastroesophageal reflux disease Hyperlipidemia Hypertension Hypothyroidism Insulin dependent diabetes mellitus Kidney stones Obstructive sleep apnea Non-compliant with CPAP. Occult blood in stools Paroxysmal atrial fibrillation Peripheral neuropathy Surgical History Surgical History History of appendectomy History of back surgery History of cataract extraction History of hemorrhoidectomy History of tonsillectomy and adenoidectomy Family History Family History Sibling Family history of obesity Hypertension Family history of diabetes mellitus in first degree relative Family history of heart disease in male family member before age 55 Patient's sister is in good health Patient's brother is Mother Family history of arthritis Family history of malignant neoplasm Patient's mother is Father Patient's father is Other Malignant neoplasm of prostate Social History Social History Social History: Surrogate medical decision maker: Marlys Marrero, . Code status: Full code. Smoking packs per day: 1.5 Smoking cigarettes per day: 30.0 Years smoked: 15 Smoking pack-years: 22.50 Smoking status: Former smoker Tobacco type: cigarettes Second hand tobacco smoke exposure: No Alcohol intake: unknown Substance use: unknown Substance use type: does not use Lack of Transportation: No Lack of Food: Never True Current Housing: I Have Housing Concerned About Future Housing: No Difficulty P
--- NOTE | 2023-08-07 10:29 | ECG_ITS ---
[facility] [address] Test Date: 2023-08-07 Pat Name: Taye Marrero Department: Room: Gender: M [employer] Machine: : [id number] Requested By: Cuauhtemoc Montaño Order Number: [id number] Doreen MD: Teddy Justin M.D. Measurements Intervals [place] Rate: 147 P: 0 NC: 0 QRS: 76 QRSD: 95 T: 3 QT: 281 QTc: 439 Interpretive Statements ATRIAL FIBRILLATION WITH RAPID VENTRICULAR RESPONSE CANNOT RULE OUT PREVIOUSSEPTAL MYOCARDIAL INFARCTION ABNORMAL ECG No previous ECG available for comparison Electronically Signed On 08-08-2023 07:44:11 CDT by Teddy Justin M.D.
[2023-08-07 10:46] LABS: Basophils Percent Auto 0.2 % (0.2-1.2); Eosinophils Absolute Auto 0.2 K/mm3 (0-0.3); Eosinophils Percent Auto 1.1 % (0-4.4); Hemoglobin 13.4 g/dL (14.0-18.0); Immature Granulocyte Absolute 0.05 K/mm3 (0.00-0.031); Immature Granulocyte Percent A 0.3 % (0-0.5); Lymphocytes Absolute Auto 0.65 K/mm3 (0.9-3.2); Lymphocytes Percent Auto 3.9 % (18.3-44.2); Mean Corpuscular HGB Conc 29.8 g/dl (32-36); Mean Corpuscular Hemoglobin 26.9 pg (26-34); Mean Corpuscular Volume 90.4 fl (80-100); Mean Platelet Volume 9.8 fl (7.4-10.4); Monocytes Absolute Auto 0.8 K/mm3 (0.1-0.6); Monocytes Percent Auto 4.7 % (2.6-8.5); Neutrophils Percent Auto 89.8 % (45.5-73.1); Platelet Count Result 298 k/mm3 (150-375); Red Blood Count 4.98 M/mm3 (4.6-6.20); Red Cell Distribution Width 15.4 % (11.5-14.5); White Blood Count 16.7 K/mm3 (4.5-10.0)
[2023-08-07 10:56] LABS: INR 1.4; Prothrombin Time 17.9 Seconds (11.1-14.7)
[2023-08-07 10:57] LABS: Partial Thromboplastin Time 39.3 Seconds (22.3-36.8)
[2023-08-07 10:58] LABS: Lactic Acid Reflex 3.5 mmol/L (0.7-2.0)
[2023-08-07 11:00] LABS: Alanine Aminotransferase 13 U/L (6-50); Albumin Level 3.9 g/dL (3.5-5.1); Alkaline Phosphatase 96 U/L (38-126); Anion Gap 7 mmol/L (4-12); Aspartate Amino Transferase 20 U/L (17-59); Bilirubin,Total 0.5 mg/dL (0.2-1.3); Blood Urea Nitrogen 22 mg/dL (9-20); Calcium 9.8 mg/dL (8.4-10.2); Carbon Dioxide 25 mmol/L (22-30); Chloride 103 mmol/L (98-107); Estimated CRCL calculation 78 ml/min; Estimated Glomerular Filt Rate > 60; Glucose 264 mg/dL (65-110); Potassium 5.3 mmol/L (3.4-5.0); Sodium 135 mmol/L (137-145)
[2023-08-07] MEDS: dilTIAZem HCl INJ 25 MG/5 ML VIAL 10 MG IV PUSH ×2 (11:04→11:19)
[2023-08-07] MEDS: SODIUM CHLORIDE 0.9% IV 1,000 ML 150 ML IV CONT ×3 (11:06→22:23)
[2023-08-07 11:11] LABS: Troponin I 0.017 ng/mL (0.000-0.034)
[2023-08-07 11:12] LABS: Platelet Estimate Adequate (Adequate)
[2023-08-07 11:13] LABS: Anisocytosis 1+; Giant Platelets Present; Large Platelets Present
[2023-08-07 11:14] LABS: Schistocytes None Seen
[2023-08-07 12:02] LABS: Appearance Urine Turbid (Clear); Bacteria Urine 4+ /hpf; Bilirubin Urine Negative (Negative); Blood Urine 3+ (Negative); Color Urine Yellow (Yellow); Glucose Urine UA Negative (Negative); Ketones Urine Negative (Negative); Leukocyte Esterase Ur 3+ LEU/UL (Negative); Need Manual Microscopic Reviewed; Nitrate Urine Negative (Negative); Protein Urine 3+ mg/dL (Negative); RBC Urine >100 /hpf (0-2); Specific Grav Ur 1.014 (1.001-1.035); Squamous Epithelial Cell Urine Few /hpf (Few); WBC Urine >100 /hpf (0-3); pH Urine 7.5 (5.0-9.0)
[2023-08-07 12:03] LABS: Glucose Point of Care 294 mg/dl (65-105)
[2023-08-07 12:18] LABS: Add Urine Microscopic? YES
--- NOTE | 2023-08-07 12:28 | PM.IMHP ---
H&P: HPI History of Present Illness Date/Time: 08/07/23 12:28 Chief Complaint: Neck Pain Narrative: 68 y/o M presents here with neck, head, and arm pain with PMH of chronic anemia, COPD, chronic venous insufficiency, diastolic CHF, GERD, HLD, HTN, hypothyroidism, DM2, JUN, and pAFib. The patient presents here from a long-term via EMS for further evaluation of headache, neck pain, and arm pain with sudden onset this morning. Pain not accompanied by shortness of breath, chest pain, diaphoresis, or nausea. Per EMS, while in route to the hospital patient's HR ranged from 130-170. Upon arrival the patient's EKG showed AFib RVR. Patient has known history of paroxysmal AFib and is on Eliquis and Metoprolol XL 100 mg daily. Arrived to the ED alert and orientated x1 - patient's baseline is A/Ox4 per , has history of becoming A/Ox1 when he has an infection. Denies any dysuria, urinary frequency, or hematuria. Currently reporting resolution of neck/head/arm pain after HR was slowed. Endorsing pain to his right toes at present, no other complaints. Has chronic wound to his left heel, coccyx, left moncada, and left plantar aspect of his foot. Denying fever, chills, or body aches. Initial VS at presentation: HR 125, RR 19, 129/95, and 98% on RA. ED workup showed: WBC 16.7, hemoglobin 13.4, INR 1.4, potassium 5.3, creatinine 1.1 and GFR >60, glucose 264, lactic acid 3.5, troponin 0.017. UA suspicious for UTI. Head CT showed normal aging brain. C-spine CT showed severe cervical spondylosis. CXR showed possible minimal central pulmonary edema. Review of Systems Review of Systems: ROS unobtainable: Yes unobtainable due to mental status [facility] Past Medical History Medical History A-fib Acute on chronic anemia Choledocholithiasis (05/2022) Chronic obstructive pulmonary disease Chronic venous insufficiency Depression Diastolic congestive heart failure Gastroesophageal reflux disease Hyperlipidemia Hypertension Hypothyroidism Insulin dependent diabetes mellitus Kidney stones Obstructive sleep apnea Non-compliant with CPAP. Occult blood in stools Paroxysmal atrial fibrillation Peripheral neuropathy Surgical History Surgical History History of appendectomy History of back surgery History of cataract extraction History of hemorrhoidectomy History of tonsillectomy and adenoidectomy Family History Family History Sibling Family history of obesity Hypertension Family history of diabetes mellitus in first degree relative Family history of heart disease in male family member before age 55 Patient's sister is in good health Patient's brother is Mother Family history of arthritis Family history of malignant neoplasm Patient's mother is Father Patient's father is Other Malignant neoplasm of prostate Social History Social History Social History: Surrogate medical decision maker: Marlys Marrero, . Code status: Full code. Smoking packs per day: 1.5 Smoking cigarettes per day: 30.0 Years smoked: 15 Smoking pack-years: 22.50 Smoking status: Former smoker Tobacco type: cigarettes Second hand tobacco smoke exposure: Yes Alcohol intake: unknown Substance use: unknown Substance use type: unknown Lack of Transportation: No Lack of Food: Never True Current Housing: I Have Housing Concerned About Future Housing: No Difficulty Paying Gas/Electric Bills: No Difficulty Paying for Meds: No Currently Unemployed: No Education: High School Diploma/GED Difficulty w/ Childcare or Family Care: No Living arrangements: long-term Additional living arrangements comments: Resident at [facility]. to
[2023-08-07] MEDS: DEXTROSE 50% 25 GM/50 ML SYRINGE IV PUSH (12:43)
[2023-08-07] MEDS: INSULIN HUMAN REGULAR (*BKC) 100 UNITS/ML 10 UNITS IV PUSH (12:44)
[2023-08-07] MEDS: dilTIAZem 100 MG/100 ML 100 MG/100 ML BAG IV CONT (12:44)
[2023-08-07] MEDS: ONDANSETRON INJ 4 MG/2 ML VIAL IV PUSH (12:46)
[2023-08-07] MEDS: MORPHINE SULFATE (*CRX) 4 MG/ML INJ IV PUSH (12:47)
[2023-08-07 13:43] LABS: Reflex Lactic Acid Yes or No Add Lactic
[2023-08-07 14:21] LABS: Lactic Acid 2.7 mmol/L (0.7-2.0)
[2023-08-07] MEDS: ACETAMINOPHEN 650 MG SUPPOSITORY RECTAL (16:38)
[2023-08-07 16:54] LABS: Potassium 4.9 mmol/L (3.4-5.0)
[2023-08-07 17:00] LABS: Glucose Point of Care 183 mg/dl (65-105)
--- NOTE | 2023-08-07 17:07 | PC.NURSE ---
POLST form from alf has pt listed as modified code with no intubation. Dorie Rose NP notified of pt being full code in computer. Dorie clifford staff clarifies with pt's , Marlys, on what she would like for the patient since pt is unable to answer questions at this time. This RN called Marlys, pt's , on speaker phone with second RN, Jazlyn Rliey, to verify pt's code status. Marlys states I would like him to be a full code. That paper is because he doesn't want to be on life support for a long time. RN clarifies with Marlys that the paper states Pt doesn't want a breathing tube. I'm just clarifying that if he stops breathing or his heart stops you are ok with us performing CPR and placing a breathing tube down his throat to help him breath. Marlys states yes that is what I would like to have done. Pt remains a full code in the computer. Ambika Rose NP notified of conversation with pt's .
--- NOTE | 2023-08-07 17:55 | ADMGEN ---
This patient, Taye Marrero Jr., was admitted to IMU Room 207-01. Patient/family oriented to hospital policies and general routines including ID bracelet, bed and alarms, visiting hours, pain management, procedures, bathroom and other care routines, personal items, smoking policy, room service/diet, and visiting hours. Information on how to activate the Rapid Response Team has been discussed. Patient/Family are encouraged to report perceived risks to care and to ask questions if they do not understand what they are told or what they should do.
[2023-08-07] MEDS: PRAVASTATIN SODIUM 20 MG TABLET 40 MG PO (23:09)
[2023-08-07] MEDS: APIXABAN 5 MG TABLET PO (23:09)
[2023-08-07] MEDS: MELATONIN 5 MG TABLET PO (23:10)
[2023-08-07] MEDS: GABAPENTIN 300 MG CAPSULE PO (23:11)
[2023-08-07] MEDS: MEROPENEM 1 GM/NS 100 ML 1 GM/100 ML BAG IVPB (23:12)
[2023-08-08] VITALS (16 sets, daily range): BP systolic 91–130; BP diastolic 53–70; PULSE 61–80; RESP 12–20; TEMP 36.1–36.7; O2SAT 94–100
[2023-08-08] MEDS: VANCOMYCIN 1,250 MG/NS 250 ML 1,250 MG/250 ML BAG 166.67 MG IVPB ×2 (00:42→02:20)
[2023-08-08 04:40] LABS: Basophils Absolute Auto 0.1 K/mm3 (0.0-0.1); Basophils Percent Auto 0.4 % (0.2-1.2); Eosinophils Absolute Auto 0.2 K/mm3 (0-0.3); Eosinophils Percent Auto 1.6 % (0-4.4); Hematocrit 34.8 % (42.0-52.0); Hemoglobin 10.6 g/dL (14.0-18.0); Immature Granulocyte Absolute 0.06 K/mm3 (0.00-0.031); Immature Granulocyte Percent A 0.4 % (0-0.5); Lymphocytes Absolute Auto 1.17 K/mm3 (0.9-3.2); Lymphocytes Percent Auto 8.1 % (18.3-44.2); Mean Corpuscular HGB Conc 30.5 g/dl (32-36); Mean Corpuscular Hemoglobin 27.2 pg (26-34); Mean Corpuscular Volume 89.2 fl (80-100); Mean Platelet Volume 10.4 fl (7.4-10.4); Monocytes Absolute Auto 0.8 K/mm3 (0.1-0.6); Monocytes Percent Auto 5.8 % (2.6-8.5); Neutrophils Percent Auto 83.7 % (45.5-73.1); Platelet Count Result 214 k/mm3 (150-375); Red Cell Distribution Width 15.9 % (11.5-14.5); White Blood Count 14.4 K/mm3 (4.5-10.0)
[2023-08-08 04:57] LABS: Lactic Acid Reflex 1.6 mmol/L (0.7-2.0)
[2023-08-08 05:00] LABS: Alanine Aminotransferase 10 U/L (6-50); Albumin Level 3.1 g/dL (3.5-5.1); Alkaline Phosphatase 69 U/L (38-126); Anion Gap 4 mmol/L (4-12); Aspartate Amino Transferase 15 U/L (17-59); Bilirubin,Total 0.5 mg/dL (0.2-1.3); Blood Urea Nitrogen 30 mg/dL (9-20); Carbon Dioxide 24 mmol/L (22-30); Chloride 106 mmol/L (98-107); Estimated CRCL calculation 70 ml/min; Estimated Glomerular Filt Rate 60; Glucose 167 mg/dL (65-110); Potassium 4.5 mmol/L (3.4-5.0); Sodium 134 mmol/L (137-145)
[2023-08-08] MEDS: LEVOTHYROXINE SODIUM 100 MCG TABLET PO (05:53)
[2023-08-08] MEDS: GABAPENTIN 300 MG CAPSULE PO ×4 (05:53→21:02)
[2023-08-08] MEDS: MEROPENEM 1 GM/NS 100 ML 1 GM/100 ML BAG IVPB ×3 (05:54→21:58)
[2023-08-08 08:18] LABS: Glucose Point of Care 178 mg/dl (65-105)
[2023-08-08] MEDS: METOPROLOL SUCCINATE EXT REL 100 MG TABCR PO (08:59)
--- NOTE | 2023-08-08 08:59 | PM.IMPN ---
Progress Note: A&P Assessment and Plan (1) Sepsis: Code(s): A41.9 - Sepsis, unspecified organism Status: Acute (2) Atrial fibrillation with rapid ventricular response: Code(s): I48.91 - Unspecified atrial fibrillation Status: Acute (3) Acute hyperkalemia: Code(s): E87.5 - Hyperkalemia Status: Acute (4) Acute UTI: Code(s): N39.0 - Urinary tract infection, site not specified Status: Acute (5) Diabetic foot infection: Code(s): E11.628 - Type 2 diabetes mellitus with other skin complications; L08.9 - Local infection of the skin and subcutaneous tissue, unspecified Status: Acute Plan (1) Sepsis: Qualifiers: Sepsis acute organ dysfunction status: with acute organ dysfunction Sepsis type: sepsis due to unspecified organism Severe sepsis acute organ dysfunction type: encephalopathy Severe sepsis shock status: without septic shock Qualified Code(s): A41.9 - Sepsis, unspecified organism; R65.20 - Severe sepsis without septic shock; G93.40 - Encephalopathy, unspecified Code(s): A41.9 - Sepsis, unspecified organism Status: Acute Assessment and Plan: - meets SIRS criteria: HR, WBC. No hypotension or hypoxia. - lactic acid: 3.5 -> 2.7, trend down - started on gentle fluids given possible congestive changes on imaging - suspected source: UTI, diabetic foot wound - started on Vanc and Meropenem on 08/06 - blood cultures drawn on 08/06 - UA consistent with UTI - CXR: Possible minimal central pulmonary edema. (2) Atrial fibrillation with rapid ventricular response: Code(s): I48.91 - Unspecified atrial fibrillation Status: Acute Assessment and Plan: - EKG, initial: AFib with RVR, rate 147, septal NV probably old. - CXR: Possible minimal central pulmonary edema. - Troponin: 0.017 - started on dilt gtt, has been since discontinued due to HR (50-70). restart home medications. - echo, previous (05/2023): 1. Left ventricular hypertrophy with well-preserved systolic contractility. 2. Severe biatrial dilation. 3. Small amount of tricuspid regurgitation. 4. Atrial fibrillation. - telemetry monitoring consult msws for evaluation treatment (3) Hyperkalemia: Code(s): E87.5 - Hyperkalemia Status: Acute Assessment and Plan: - K 5.3 -> 4.9 - given: 10u of insulin and IV fluids - trend - telemetry monitoring corrected (4) UTI (urinary tract infection): Code(s): N39.0 - Urinary tract infection, site not specified Status: Acute Assessment and Plan: - UA: Turbid, 3+ protein, 3+ blood, 3+ leuks, greater than 100 RBC, greater than 100 WBC, 4+ bacteria, few epithelial cells. - UC pending, obtained on 08/06 - previous micro reviewed, has hx of MDR UTIs w/most recent on 05/10/23 - started on meropenem on 08/06 - has chronic [place]? - clarify with spouse replace folic catheter, follow-up urine culture (5) Insulin dependent diabetes mellitus: Status: Chronic Assessment and Plan: - hypoglycemia protocol - POC blood glucose ACHS - home medication: Novolin 70-3025 units q.a.m., Novolin [id number] units HS - correct regimen ordered - high dose TIDWM, based off BMI - A1C 8.4% on 06/22/2023 (6) Hypertension: Code(s): I10 - Essential (primary) hypertension Status: Acute Assessment and Plan: - chronic, currently 92/45 - continue home medications: Valsartan 20 mg daily, start in a.m. - monitor (7) Diabetic foot infection: Code(s): E11.628 - Type 2 diabetes mellitus with other skin complications; L08.9 - Local infection of the skin and subcutaneous tissue, unspecified Status: Acute Assessment and Plan: - wound consulted - vancomycin and meropenem started on 08/06 - has history of positive MRSA and canidida wound cultures - wound culture ordered - XR of foot last done on 06/23/23 and had no evidence of osteomyeltitis
[2023-08-08] MEDS: SENNA/DOCUSATE SODIUM TABLET 1 TAB PO ×2 (09:00→17:20)
[2023-08-08] MEDS: FAMOTIDINE 20 MG TABLET PO (09:00)
[2023-08-08] MEDS: ASPIRIN 81 MG ENTERIC TABLET PO (09:00)
[2023-08-08] MEDS: THERAPEUTIC MULTIVITAMINS/MINERALS TAB (*BKC) 1 TABLET PO (09:00)
[2023-08-08] MEDS: APIXABAN 5 MG TABLET PO ×2 (09:00→21:03)
[2023-08-08] MEDS: VALSARTAN 20 MG TABLET PO (09:03)
[2023-08-08] MEDS: polyethylene glycoL 3350 17 GM POWD.PACK PO ×2 (09:03→17:21)
[2023-08-08] MEDS: SODIUM CHLORIDE 0.9% IV 1,000 ML 100 ML IV CONT ×2 (09:06→21:07)
[2023-08-08] MEDS: EUCERIN CREAM 454 GM JAR 1 APPLIC TOPICAL (09:44)
[2023-08-08] MEDS: INSULIN HUMAN ISOPHAN/REGULAR 70/30 (*BKC) 100 UNITS/ML 25 UNITS SUB-Q (09:44)
[2023-08-08] MEDS: buPROPion HCL XL (24 HR) 150 MG TABCR PO (09:44)
[2023-08-08 13:46] LABS: Glucose Point of Care 150 mg/dl (65-105)
[2023-08-08] MEDS: MAGNESIUM OXIDE 400 MG TABLET PO (13:48)
[2023-08-08 16:32] LABS: Glucose Point of Care 187 mg/dl (65-105)
[2023-08-08] MEDS: VANCOMYCIN 1,500 MG/NS 500 ML 1,500 MG/500 ML BAG 250 MG IVPB (17:21)
[2023-08-08 20:49] LABS: Glucose Point of Care 221 mg/dl (65-105)
[2023-08-08] MEDS: INSULIN HUMAN ISOPHAN/REGULAR 70/30 (*BKC) 100 UNITS/ML 15 UNITS SUB-Q (20:59)
[2023-08-08] MEDS: ACETAMINOPHEN 325 MG TABLET 650 MG PO (21:03)
[2023-08-08] MEDS: PRAVASTATIN SODIUM 20 MG TABLET 40 MG PO (21:03)
[2023-08-08] MEDS: MELATONIN 5 MG TABLET PO (21:05)
[2023-08-09] VITALS (17 sets, daily range): BP systolic 110–158; BP diastolic 68–81; PULSE 55–77; RESP 16–20; TEMP 35.6–36.8; O2SAT 98–100
[2023-08-09 05:21] LABS: Estimated CRCL calculation 103 ml/min; Estimated Glomerular Filt Rate > 60
[2023-08-09] MEDS: GABAPENTIN 300 MG CAPSULE PO ×4 (06:10→22:29)
[2023-08-09] MEDS: LEVOTHYROXINE SODIUM 100 MCG TABLET PO (06:10)
[2023-08-09] MEDS: MEROPENEM 1 GM/NS 100 ML 1 GM/100 ML BAG IVPB ×3 (06:10→22:33)
[2023-08-09] MEDS: SODIUM CHLORIDE 0.9% IV 1,000 ML 100 ML IV CONT ×2 (06:13→17:54)
[2023-08-09 08:03] LABS: Glucose Point of Care 121 mg/dl (65-105)
--- NOTE | 2023-08-09 09:05 | PM.CNCAR ---
Assessment and Plan Assessment and plan (1) Atrial fibrillation with rapid ventricular response: Code(s): I48.91 - Unspecified atrial fibrillation Status: Acute Plan This is a 68-year-old man with a variety of comorbidities. He has chronic/permanent, not paroxysmal atrial fibrillation. He therefore cannot he have recurrence of this arrhythmia as was suggested in his admitting notes since the arrhythmia is chronic. His heart rate is very well controlled with metoprolol he is tolerating apixaban without any problems there is no need to change this regimen. No further cardiac follow-up of this chronic arrhythmia during the hospitalization is necessary in my opinion. Will sign off at this time Teddy Justin MD [facility] History of Present Illness History of Present Illness Consult date/time: 08/09/23 09:05 Reason For Visit: Afib with RVR/UTI/Hyperkalemia Narrative: This is a 68-year-old man I am seeing at the request of the hospitalist today because of atrial fibrillation. I have seen this gentleman recently in the hospital as well. He is hospitalized here frequently for a variety of issues. He was brought to the emergency room this weekend because of symptoms of what he describes as shaking and rigors. He does not think that he had a fever denies any other symptoms but he was feeling unwell and was sent to the emergency room. It was noted that he was in atrial fibrillation initially with a rapid ventricular response he was of course placed on some diltiazem which has now been stopped and he is back on metoprolol which he normally takes at baseline. This is a gentleman with chronic/permanent atrial fibrillation which is being managed with rate control and anticoagulation. Some of the notes in the chart incorrectly characterize his arrhythmia as paroxysmal AFib which is not the case. In addition to metoprolol he takes apixaban for systemic anticoagulation. His telemetry at this time demonstrates atrial fib with heart rates in the 60 and 70 range most of the time. His telemetry last time I saw him in the hospital was similar. Review of Systems Constitutional: Constitutional: Reports fatigue Eyes: Eyes: Reports no additional eye complaints ENT: Reports system reviewed and no additional complaints, except as documented Cardiovascular: Cardiovascular: Reports no additional cardiovascular complaints Respiratory: Respiratory: Reports dyspnea on exertion Gastrointestinal: Gastrointestinal: Reports no additional gastrointestinal complaints Musculoskeletal: Musculoskeletal: Reports back pain Integumentary/Breasts: Skin/Breast: Reports system reviewed and no additional complaints, except as docu Neurologic: Reports system reviewed and no additional complaints, except as documented Endocrine: Endocrine: Reports no additional endocrine complaints Hematologic/Lymphatic: Hematologic/Lymphatic: Reports no additional hematologic/lymphatic complaints Allergic/Immunologic: Allergic/Immunologic: Reports no additional allergic/immunologic complaints [facility] Past Medical History Medical History A-fib Acute on chronic anemia Choledocholithiasis (05/2022) Chronic obstructive pulmonary disease Chronic venous insufficiency Depression Diastolic congestive heart failure Gastroesophageal reflux disease Hyperlipidemia Hypertension Hypothyroidism Insulin dependent diabetes mellitus Kidney stones Obstructive sleep apnea Non-compliant with CPAP. Occult blood in stools Paroxysmal atrial fibrillation Peripheral neuropathy Surgical History Surgical History History of appendectomy History of back surgery History of cataract extraction History of hemorrhoidectomy History of tonsillectomy and adenoidectomy Family History Family History Sibling Family
[2023-08-09] MEDS: polyethylene glycoL 3350 17 GM POWD.PACK PO ×2 (09:08→17:53)
[2023-08-09] MEDS: METOPROLOL SUCCINATE EXT REL 100 MG TABCR PO (09:09)
[2023-08-09] MEDS: APIXABAN 5 MG TABLET PO ×2 (09:09→22:29)
[2023-08-09] MEDS: FAMOTIDINE 20 MG TABLET PO (09:10)
[2023-08-09] MEDS: ASPIRIN 81 MG ENTERIC TABLET PO (09:10)
[2023-08-09] MEDS: buPROPion HCL XL (24 HR) 150 MG TABCR PO (09:10)
[2023-08-09] MEDS: THERAPEUTIC MULTIVITAMINS/MINERALS TAB (*BKC) 1 TABLET PO (09:10)
[2023-08-09] MEDS: SENNA/DOCUSATE SODIUM TABLET 1 TAB PO ×2 (09:10→17:53)
[2023-08-09] MEDS: INSULIN HUMAN ISOPHAN/REGULAR 70/30 (*BKC) 100 UNITS/ML 25 UNITS SUB-Q (09:10)
[2023-08-09] MEDS: VALSARTAN 20 MG TABLET PO (09:10)
[2023-08-09] MEDS: EUCERIN CREAM 454 GM JAR 1 APPLIC TOPICAL (09:11)
[2023-08-09 11:48] LABS: Vancomycin Trough 11.8 ug/mL (10.0-20.0)
[2023-08-09 12:07] LABS: Glucose Point of Care 140 mg/dl (65-105)
[2023-08-09] MEDS: VANCOMYCIN 1,500 MG/NS 500 ML 1,500 MG/500 ML BAG 250 MG IVPB (12:32)
[2023-08-09] MEDS: MAGNESIUM OXIDE 400 MG TABLET PO (12:32)
[2023-08-09 16:20] LABS: Glucose Point of Care 142 mg/dl (65-105)
--- NOTE | 2023-08-09 17:08 | WPDPN ---
Progress Note: A&P Assessment and Plan (1) Sepsis: Code(s): A41.9 - Sepsis, unspecified organism Status: Acute (2) Atrial fibrillation with rapid ventricular response: Code(s): I48.91 - Unspecified atrial fibrillation Status: Acute (3) Acute hyperkalemia: Code(s): E87.5 - Hyperkalemia Status: Acute (4) Acute UTI: Code(s): N39.0 - Urinary tract infection, site not specified Status: Acute (5) Hypertension: Code(s): I10 - Essential (primary) hypertension Status: Acute Plan interval history 08/09/2023: patient was sent to ER with c/o neck pain and foot pain which are chronic there is no c/o CP or shortness of breath. patient with history of paroxysmal AFib and is on Eliquis and Metoprolol XL 100 mg daily however on route to the ER patient developed A. fib RVR which has now trending down patient was seen by the car barn laborer and further work up or change in medication was recommended, also patient is being treated for MDRUti and diabetes foot ulcer with meropenem and vanc. will monitor. Subjective Date/time seen: 08/09/23 17:08 Interval history: 68 y/o M presents here with neck, head, and arm pain with PMH of chronic anemia, COPD, chronic venous insufficiency, diastolic CHF, GERD, HLD, HTN, hypothyroidism, DM2, JUN, and pAFib. The patient presents here from a custodial via EMS for further evaluation of headache, neck pain, and arm pain with sudden onset this morning. Pain not accompanied by shortness of breath, chest pain, diaphoresis, or nausea. Per EMS, while in route to the hospital patient's HR ranged from 130-170. Upon arrival the patient's EKG showed AFib RVR. Patient has known history of paroxysmal AFib and is on Eliquis and Metoprolol XL 100 mg daily. Arrived to the ED alert and orientated x1 - patient's baseline is A/Ox4 per , has history of becoming A/Ox1 when he has an infection. Denies any dysuria, urinary frequency, or hematuria. Currently reporting resolution of neck/head/arm pain after HR was slowed. Endorsing pain to his right toes at present, no other complaints. Has chronic wound to his left heel, coccyx, left moncada, and left plantar aspect of his foot. Denying fever, chills, or body aches. Initial VS at presentation: HR 125, RR 19, 129/95, and 98% on RA. ED workup showed: WBC 16.7, hemoglobin 13.4, INR 1.4, potassium 5.3, creatinine 1.1 and GFR >60, glucose 264, lactic acid 3.5, troponin 0.017. UA suspicious for UTI. Head CT showed normal aging brain. C-spine CT showed severe cervical spondylosis. CXR showed possible minimal central pulmonary edema. interval history 08/09/2023: patient was sent to ER with c/o neck pain and foot pain which are chronic there is no c/o CP or shortness of breath. patient with history of paroxysmal AFib and is on Eliquis and Metoprolol XL 100 mg daily however on route to the ER patient developed A. fib RVR which has now trending down patient was seen by the car barn laborer and further work up or change in medication was recommended, also patient is being treated for MDRUti and diabetes foot ulcer with meropenem and vanc. will monitor. Review of Systems Constitutional: Comments: patient stats feeling does c/o pain in left heal and bottom, denies any fever or chills. Exam Narrative: Narrative: , wound to left h eel (wet yellow wo und bed), coccyx, left plantar aspec t of foot (small a kris of necorsis), left are red, flak y, and skin is thi ckened/hardend to bilateral calves. Const: General: comfortab le and no acute di stress Other: January aucasian, male, ob traci body habitus, ch
[2023-08-09 20:37] LABS: Glucose Point of Care 131 mg/dl (65-105)
[2023-08-09] MEDS: MELATONIN 5 MG TABLET PO (22:30)
[2023-08-09] MEDS: PRAVASTATIN SODIUM 20 MG TABLET 40 MG PO (22:30)
[2023-08-09] MEDS: INSULIN HUMAN ISOPHAN/REGULAR 70/30 (*BKC) 100 UNITS/ML 15 UNITS SUB-Q (22:43)
[2023-08-10] VITALS (17 sets, daily range): BP systolic 146–164; BP diastolic 81–96; PULSE 51–94; RESP 14–20; TEMP 35.6–36.7; O2SAT 95–100
[2023-08-10] MEDS: VANCOMYCIN 1,500 MG/NS 500 ML 1,500 MG/500 ML BAG 250 MG IVPB (00:41)
[2023-08-10 04:44] LABS: Hematocrit 37.5 % (42.0-52.0); Mean Corpuscular HGB Conc 29.3 g/dl (32-36); Mean Corpuscular Hemoglobin 26.5 pg (26-34); Mean Corpuscular Volume 90.4 fl (80-100); Mean Platelet Volume 9.9 fl (7.4-10.4); Platelet Count Result 243 k/mm3 (150-375); Red Blood Count 4.15 M/mm3 (4.6-6.20); Red Cell Distribution Width 15.3 % (11.5-14.5); White Blood Count 9.2 K/mm3 (4.5-10.0)
[2023-08-10 05:20] LABS: Anion Gap 4 mmol/L (4-12); Blood Urea Nitrogen 17 mg/dL (9-20); Calcium 9.3 mg/dL (8.4-10.2); Carbon Dioxide 24 mmol/L (22-30); Chloride 109 mmol/L (98-107); Estimated CRCL calculation 122 ml/min; Estimated Glomerular Filt Rate > 60; Glucose 105 mg/dL (65-110); Magnesium 1.8 mg/dL (1.6-2.3); Potassium 4.3 mmol/L (3.4-5.0); Sodium 137 mmol/L (137-145)
[2023-08-10] MEDS: GABAPENTIN 300 MG CAPSULE PO ×4 (05:30→21:58)
[2023-08-10] MEDS: MEROPENEM 1 GM/NS 100 ML 1 GM/100 ML BAG IVPB (05:30)
[2023-08-10] MEDS: LEVOTHYROXINE SODIUM 100 MCG TABLET PO (05:30)
[2023-08-10] MEDS: SODIUM CHLORIDE 0.9% IV 1,000 ML 100 ML IV CONT ×2 (05:39→16:51)
[2023-08-10 07:51] LABS: Glucose Point of Care 103 mg/dl (65-105)
[2023-08-10] MEDS: ASPIRIN 81 MG ENTERIC TABLET PO (09:26)
[2023-08-10] MEDS: METOPROLOL SUCCINATE EXT REL 100 MG TABCR PO (09:26)
[2023-08-10] MEDS: APIXABAN 5 MG TABLET PO ×2 (09:26→21:58)
[2023-08-10] MEDS: FAMOTIDINE 20 MG TABLET PO (09:26)
[2023-08-10] MEDS: THERAPEUTIC MULTIVITAMINS/MINERALS TAB (*BKC) 1 TABLET PO (09:26)
[2023-08-10] MEDS: SENNA/DOCUSATE SODIUM TABLET 1 TAB PO ×2 (09:26→16:51)
[2023-08-10] MEDS: polyethylene glycoL 3350 17 GM POWD.PACK PO ×2 (09:26→16:51)
[2023-08-10] MEDS: buPROPion HCL XL (24 HR) 150 MG TABCR PO (09:26)
[2023-08-10] MEDS: EUCERIN CREAM 454 GM JAR 1 APPLIC TOPICAL (09:26)
[2023-08-10] MEDS: VALSARTAN 20 MG TABLET PO (09:26)
[2023-08-10] MEDS: INSULIN HUMAN ISOPHAN/REGULAR 70/30 (*BKC) 100 UNITS/ML 25 UNITS SUB-Q (09:27)
--- NOTE | 2023-08-10 12:16 | PM.IMPN ---
Progress Note: A&P Assessment and Plan (1) Sepsis: Code(s): A41.9 - Sepsis, unspecified organism Status: Acute (2) Atrial fibrillation with rapid ventricular response: Code(s): I48.91 - Unspecified atrial fibrillation Status: Acute (3) Acute hyperkalemia: Code(s): E87.5 - Hyperkalemia Status: Acute (4) Acute UTI: Code(s): N39.0 - Urinary tract infection, site not specified Status: Acute (5) Hypertension: Code(s): I10 - Essential (primary) hypertension Status: Acute Plan This is a 68 y/o M who presented to the ER on 08/07/2023 with neck, head, and arm pain. He comes from a local nursing facility. EMS was called and was noted to have heart rate in 130s to 170s. He does have history of paroxysmal atrial fibrillation. History off chronic anemia, COPD, chronic venous insufficiency, diastolic CHF, GERD, HLD, HTN, hypothyroidism, DM2, UJN, and pAFib. The patient presents here from a group home via EMS for further evaluation of headache, neck pain, and arm pain with sudden onset this morning. Pain not accompanied by shortness of breath, chest pain, diaphoresis, or nausea. Per EMS, while in route to the hospital patient's HR ranged from 130-170. Upon arrival the patient's EKG showed AFib RVR. Patient has known history of paroxysmal AFib and is on Eliquis and Metoprolol XL 100 mg daily. Arrived to the ED alert and orientated x1 - patient's baseline is A/Ox4 per , has history of becoming A/Ox1 when he has an infection. Denies any dysuria, urinary frequency, or hematuria. Currently reporting resolution of neck/head/arm pain after HR was slowed. He endorsed pain to his right toes at present, no other complaints. Has chronic wound to his left heel, coccyx, left moncada, and left plantar aspect of his foot. Denying fever, chills, or body aches. Initial VS at presentation: HR 125, RR 19, 129/95, and 98% on RA. ED workup showed: Leukocytosis with WBC 16.7, hemoglobin 13.4, INR 1.4, potassium 5.3, creatinine 1.1 and GFR >60, glucose 264, lactic acid 3.5, troponin 0.017. UA suspicious for UTI. Head CT showed normal aging brain. C-spine CT showed severe cervical spondylosis. CXR showed possible minimal central pulmonary edema. Patient diagnosis sepsis meeting SIRS criteria possible source UTI versus diabetic foot wound. He was started on vancomycin and meropenem on 08/07/2023. Blood cultures were obtained. UA was consistent with UTI. Chest x-ray with possible minimal central pulmonary edema. Cardiology was consulted and was started on a diltiazem drip for his AFib with RVR. His home medications were resumed. His hyperkalemia was treated with resolution. History of positive MRSA and Candice will cultures. X-ray of the foot with no signs of osteomyelitis done on 06/23/2023. Blood culture came back positive for group B Streptococcus. This antibiotics will be adjusted to ceftriaxone monotherapy. Blood culture repeat will be obtained today. His AFib with RVR is controlled on current regimen. Chronically on anticoagulation with Eliquis. Urine culture is no growth today Chronic diastolic congestive heart failure Insulin-dependent diabetes Hypothyroidism Hyper tension as Untreated obstructive sleep apnea Chronic venous stasis dermatitis Chronic indwelling Coats catheter Chronic atrial fibrillation Daily code status full code DVT prophylaxis on Eliquis Subjective Date/time seen: 08/10/23 12:16 Interval history: No overnight events. Patient denies any chest pain or shortness of breath. Reports has source in his legs which is chronic. Abdominal pain nausea vomiting. Tolerating diet. Review of Systems Review of Systems: All systems reviewed & are unremarkable except as noted in HPI and below Exam Narrative: General: Well-developed, obese, not in acute distress Head: Normocephalic, atraumatic Eyes: Pupils equally round and reactive to light bilaterally, EOM intact,
[2023-08-10 12:21] LABS: Glucose Point of Care 177 mg/dl (65-105)
[2023-08-10] MEDS: MAGNESIUM OXIDE 400 MG TABLET PO (12:32)
[2023-08-10] MEDS: HYDROcodone/acetaminophen (*CRX) 5-325 MG TABLET 1 TAB PO (12:32)
[2023-08-10] MEDS: cefTRIAXone 2 GM/NS 100 ML 2 GM/100 ML BAG IVPB (12:32)
[2023-08-10 16:31] LABS: Glucose Point of Care 107 mg/dl (65-105)
[2023-08-10 20:08] LABS: Glucose Point of Care 126 mg/dl (65-105)
[2023-08-10] MEDS: PRAVASTATIN SODIUM 20 MG TABLET 40 MG PO (21:59)
[2023-08-10] MEDS: MELATONIN 5 MG TABLET PO (21:59)
[2023-08-10] MEDS: INSULIN HUMAN ISOPHAN/REGULAR 70/30 (*BKC) 100 UNITS/ML 15 UNITS SUB-Q (22:03)
[2023-08-11] VITALS (14 sets, daily range): BP systolic 136–169; BP diastolic 70–87; PULSE 54–83; RESP 12–18; TEMP 36.4–36.7; O2SAT 96–100
[2023-08-11] MEDS: SODIUM CHLORIDE 0.9% IV 1,000 ML 100 ML IV CONT (02:31)
[2023-08-11 04:46] LABS: Hematocrit 38.5 % (42.0-52.0); Hemoglobin 11.7 g/dL (14.0-18.0); Mean Corpuscular HGB Conc 30.4 g/dl (32-36); Mean Corpuscular Hemoglobin 26.7 pg (26-34); Mean Corpuscular Volume 87.9 fl (80-100); Mean Platelet Volume 9.2 fl (7.4-10.4); Platelet Count Result 241 k/mm3 (150-375); Red Blood Count 4.38 M/mm3 (4.6-6.20); Red Cell Distribution Width 15.2 % (11.5-14.5); White Blood Count 7.2 K/mm3 (4.5-10.0)
[2023-08-11 05:03] LABS: Alanine Aminotransferase 10 U/L (6-50); Albumin Level 3.3 g/dL (3.5-5.1); Alkaline Phosphatase 83 U/L (38-126); Anion Gap 4 mmol/L (4-12); Aspartate Amino Transferase 18 U/L (17-59); Bilirubin,Total 0.4 mg/dL (0.2-1.3); Blood Urea Nitrogen 15 mg/dL (9-20); Calcium 9.6 mg/dL (8.4-10.2); Carbon Dioxide 22 mmol/L (22-30); Chloride 110 mmol/L (98-107); Estimated CRCL calculation 122 ml/min; Estimated Glomerular Filt Rate > 60; Glucose 87 mg/dL (65-110); Magnesium 1.8 mg/dL (1.6-2.3); Potassium 4.2 mmol/L (3.4-5.0); Sodium 136 mmol/L (137-145)
[2023-08-11] MEDS: LEVOTHYROXINE SODIUM 100 MCG TABLET PO (06:42)
[2023-08-11] MEDS: GABAPENTIN 300 MG CAPSULE PO ×4 (06:43→23:43)
[2023-08-11 07:36] LABS: Glucose Point of Care 79 mg/dl (65-105)
[2023-08-11] MEDS: APIXABAN 5 MG TABLET PO ×2 (09:12→20:33)
[2023-08-11] MEDS: FAMOTIDINE 20 MG TABLET PO (09:12)
[2023-08-11] MEDS: METOPROLOL SUCCINATE EXT REL 100 MG TABCR PO (09:12)
[2023-08-11] MEDS: VALSARTAN 20 MG TABLET PO (09:12)
[2023-08-11] MEDS: polyethylene glycoL 3350 17 GM POWD.PACK PO ×2 (09:12→17:11)
[2023-08-11] MEDS: THERAPEUTIC MULTIVITAMINS/MINERALS TAB (*BKC) 1 TABLET PO (09:12)
[2023-08-11] MEDS: buPROPion HCL XL (24 HR) 150 MG TABCR PO (09:12)
[2023-08-11] MEDS: SENNA/DOCUSATE SODIUM TABLET 1 TAB PO ×2 (09:12→17:11)
[2023-08-11] MEDS: EUCERIN CREAM 454 GM JAR 1 APPLIC TOPICAL (09:13)
[2023-08-11] MEDS: cefTRIAXone 2 GM/NS 100 ML 2 GM/100 ML BAG IVPB (09:13)
[2023-08-11] MEDS: ASPIRIN 81 MG ENTERIC TABLET PO (09:13)
[2023-08-11 11:42] LABS: Glucose Point of Care 188 mg/dl (65-105)
[2023-08-11] MEDS: MAGNESIUM OXIDE 400 MG TABLET PO (12:38)
--- NOTE | 2023-08-11 13:50 | PM.IMPN ---
Progress Note: A&P Assessment and Plan (1) Sepsis: Code(s): A41.9 - Sepsis, unspecified organism Status: Acute (2) Atrial fibrillation with rapid ventricular response: Code(s): I48.91 - Unspecified atrial fibrillation Status: Acute (3) Acute hyperkalemia: Code(s): E87.5 - Hyperkalemia Status: Acute (4) Acute UTI: Code(s): N39.0 - Urinary tract infection, site not specified Status: Acute (5) Hypertension: Code(s): I10 - Essential (primary) hypertension Status: Acute Plan 68 y/o M who presented to the ER on 08/07/2023 with neck, head, and arm pain. He comes from a local nursing facility. EMS was called and was noted to have heart rate in 130s to 170s. He does have history of paroxysmal atrial fibrillation. Initial VS at presentation: HR 125, RR 19, 129/95, and 98% on RA. ED workup showed: Leukocytosis with WBC 16.7, hemoglobin 13.4, INR 1.4, potassium 5.3, creatinine 1.1 and GFR >60, glucose 264, lactic acid 3.5, troponin 0.017. UA suspicious for UTI. Head CT showed normal aging brain. C-spine CT showed severe cervical spondylosis. CXR showed possible minimal central pulmonary edema. 1. Sepsis: Blood culture growing group B Streptococcus from day of admission Repeat blood culture pending till date Urine culture was unremarkable History of heel ulcers specially on the left Await x-ray of the heel Continue with ceftriaxone 2. AFib with RVR: Appreciate cardiology help Patient has history of permanent atrial fibrillation Continue with metoprolol for rate control Continue with Eliquis 3. Diabetes mellitus: Blood glucose 79 this morning, morning does of insulin was held Hemoglobin A1c 8.4 recently Continue with mixed insulin, 25 units in the morning, 15 units at bedtime 4. History of hypothyroidism: Continue with levothyroxine 5. DVT prophylaxis: Eliquis 6. Code status: Full 7. Continue with chronic indwelling Coats catheter 8. Disposition: Pending improvement Time Spent With Patient Time with patient: 15 - 25 minutes Subjective Date/time seen: 08/11/23 13:50 Interval history: No acute events overnight Review of Systems Review of Systems: All systems reviewed & are unremarkable except as noted in HPI and below Exam Narrative: General: Well-developed, obese, not in acute distress Head: Normocephalic, atraumatic Eyes: Pupils equally round and reactive to light bilaterally, Mouth: Oropharynx without lesions or masses, Neck: Supple, Cardio: Irregular rate rhythm rate controlled, s1 and s2 normal, Resp: Lung sounds diminished in the bases otherwise clear,, Musculoskeletal: No deformity, non-tender to palpation, grossly normal range of motion, muscle strength equal,peripheral pulse strong, no edema, no cyanosis, normal gait and station Neuro: Alert and oriented x1, . Objective Data Vital Signs Vital Signs: Vital Signs - 24 hr 08/10/23 14:00 08/10/23 15:47 08/10/23 16:00 Temperature 96.2 F L Pulse Rate 66 53 L 51 L Respiratory Rate 20 Blood Pressure 151/81 H Pulse Oximetry 99 Oxygen Delivery 08/10/23 16:00 08/10/23 19:59 08/10/23 20:00 Temperature 97.7 F 97.7 F Pulse Rate 60 64 Respiratory Rate 18 18 Blood Pressure 148/85 H 148/85 H Pulse Oximetry 98 98 Oxygen Delivery Room Air 08/10/23 18:00 08/10/23 20:37 08/10/23 20:00 Temperature Pulse Rate 61 65 Respiratory Rate Blood Pressure Pulse Oximetry 95 Oxygen Delivery 08/10/23 20:00 08/10/23 22:00 08/11/23 00:00 Temperature 97.9 F Pulse Rate 56 L 64 Respiratory Rate 16 Blood Pressure 169/86 H Pulse Oximetry 97 Oxygen Delivery Room Air 08/11/23 00:00 08/11/23 00:00 08/11/23 02:00 Temperature Pulse Rate 62 66 Respiratory Rate Blood Pressure Pulse Oximetry Oxygen Delivery Room Air 08/11/23 03:59 08/11/23 04:00 08/11/23 04:00 Temperature 98.1 F Pulse Rate 65 57 L R
[2023-08-11 16:52] LABS: Glucose Point of Care 240 mg/dl (65-105)
[2023-08-11] MEDS: INSULIN ASPART (*BKC) 100 UNITS/ML SUB-Q (17:11)
[2023-08-11 20:08] LABS: Glucose Point of Care 254 mg/dl (65-105)
[2023-08-11] MEDS: PRAVASTATIN SODIUM 20 MG TABLET 40 MG PO (20:32)
[2023-08-11] MEDS: MELATONIN 5 MG TABLET PO (20:33)
[2023-08-11] MEDS: INSULIN HUMAN ISOPHAN/REGULAR 70/30 (*BKC) 100 UNITS/ML 15 UNITS SUB-Q (23:42)
[2023-08-12] VITALS (12 sets, daily range): BP systolic 144–171; BP diastolic 80–92; PULSE 48–75; RESP 12–20; TEMP 36.2–37.3; O2SAT 95–99
[2023-08-12 04:43] LABS: Hematocrit 36.7 % (42.0-52.0); Mean Corpuscular Hemoglobin 26.5 pg (26-34); Mean Corpuscular Volume 88.4 fl (80-100); Mean Platelet Volume 9.8 fl (7.4-10.4); Platelet Count Result 243 k/mm3 (150-375); Red Blood Count 4.15 M/mm3 (4.6-6.20); Red Cell Distribution Width 15.2 % (11.5-14.5); White Blood Count 6.8 K/mm3 (4.5-10.0)
[2023-08-12 05:05] LABS: Anion Gap 4 mmol/L (4-12); Blood Urea Nitrogen 14 mg/dL (9-20); Calcium 9.8 mg/dL (8.4-10.2); Carbon Dioxide 25 mmol/L (22-30); Chloride 108 mmol/L (98-107); Estimated CRCL calculation 137 ml/min; Estimated Glomerular Filt Rate > 60; Glucose 121 mg/dL (65-110); Magnesium 1.9 mg/dL (1.6-2.3); Potassium 4.4 mmol/L (3.4-5.0); Sodium 137 mmol/L (137-145)
[2023-08-12] MEDS: LEVOTHYROXINE SODIUM 100 MCG TABLET PO (05:49)
[2023-08-12] MEDS: GABAPENTIN 300 MG CAPSULE PO ×4 (05:49→20:17)
[2023-08-12 08:36] LABS: Glucose Point of Care 83 mg/dl (65-105)
[2023-08-12] MEDS: buPROPion HCL XL (24 HR) 150 MG TABCR PO (08:57)
[2023-08-12] MEDS: VALSARTAN 20 MG TABLET PO (08:57)
[2023-08-12] MEDS: cefTRIAXone 2 GM/NS 100 ML 2 GM/100 ML BAG IVPB (08:57)
[2023-08-12] MEDS: THERAPEUTIC MULTIVITAMINS/MINERALS TAB (*BKC) 1 TABLET PO (08:57)
[2023-08-12] MEDS: FAMOTIDINE 20 MG TABLET PO (08:57)
[2023-08-12] MEDS: polyethylene glycoL 3350 17 GM POWD.PACK PO ×2 (08:57→17:11)
[2023-08-12] MEDS: METOPROLOL SUCCINATE EXT REL 100 MG TABCR PO (08:57)
[2023-08-12] MEDS: ASPIRIN 81 MG ENTERIC TABLET PO (08:57)
[2023-08-12] MEDS: APIXABAN 5 MG TABLET PO ×2 (08:58→20:17)
[2023-08-12] MEDS: SENNA/DOCUSATE SODIUM TABLET 1 TAB PO ×2 (08:58→17:11)
[2023-08-12] MEDS: EUCERIN CREAM 454 GM JAR 1 APPLIC TOPICAL (08:58)
[2023-08-12 12:27] LABS: Glucose Point of Care 153 mg/dl (65-105)
[2023-08-12] MEDS: MAGNESIUM OXIDE 400 MG TABLET PO (12:32)
--- NOTE | 2023-08-12 12:53 | PM.IMPN ---
Progress Note: A&P Assessment and Plan (1) Sepsis: Code(s): A41.9 - Sepsis, unspecified organism Status: Acute (2) Atrial fibrillation with rapid ventricular response: Code(s): I48.91 - Unspecified atrial fibrillation Status: Acute (3) Acute hyperkalemia: Code(s): E87.5 - Hyperkalemia Status: Acute (4) Acute UTI: Code(s): N39.0 - Urinary tract infection, site not specified Status: Acute (5) Hypertension: Code(s): I10 - Essential (primary) hypertension Status: Acute Plan 68 y/o M who presented to the ER on 08/07/2023 with neck, head, and arm pain. He comes from a local nursing facility. EMS was called and was noted to have heart rate in 130s to 170s. He does have history of paroxysmal atrial fibrillation. Initial VS at presentation: HR 125, RR 19, 129/95, and 98% on RA. ED workup showed: Leukocytosis with WBC 16.7, hemoglobin 13.4, INR 1.4, potassium 5.3, creatinine 1.1 and GFR >60, glucose 264, lactic acid 3.5, troponin 0.017. UA suspicious for UTI. Head CT showed normal aging brain. C-spine CT showed severe cervical spondylosis. CXR showed possible minimal central pulmonary edema. 1. Sepsis: Blood culture growing group B Streptococcus from day of admission Repeat blood culture pending till date, will need 10 days of IV ceftriaxone from last negative blood culture Urine culture was unremarkable History of heel ulcers specially on the left Await MRI of the he will Continue with ceftriaxone 2. AFib with RVR: Appreciate cardiology help Patient has history of permanent atrial fibrillation Will decrease the dose of metoprolol to 75 mg Continue with Eliquis 3. Diabetes mellitus: Blood glucose 83 this morning, morning does of insulin was held Hemoglobin A1c 8.4 recently Continue with mixed insulin, 25 units in the morning, will decrease bedtime insulin to 12 units 4. History of hypothyroidism: Continue with levothyroxine 5. Hypertension: Blood pressure elevated We will increase the dose of valsartan to 40 mg 6. DVT prophylaxis: Eliquis 7. Code status: Full 8. Continue with chronic indwelling Coats catheter 9. Disposition: Pending improvement Time Spent With Patient Time with patient: 15 - 25 minutes Subjective Date/time seen: 08/12/23 12:53 Interval history: No acute events overnight Noted low blood glucose this morning Noted bradycardia especially during sleep Review of Systems Review of Systems: All systems reviewed & are unremarkable except as noted in HPI and below Exam Narrative: General: Well-developed, obese, not in acute distress Head: Normocephalic, atraumatic Eyes: Pupils equally round and reactive to light bilaterally, Mouth: Oropharynx without lesions or masses, Neck: Supple, Cardio: Irregular rate rhythm rate controlled, s1 and s2 normal, Resp: Lung sounds diminished in the bases otherwise clear,, Musculoskeletal: No deformity, non-tender to palpation, grossly normal range of motion, muscle strength equal,peripheral pulse strong, no edema, no cyanosis, normal gait and station Neuro: Alert and oriented x1, . Objective Data Vital Signs Vital Signs: Vital Signs - 24 hr 08/11/23 14:00 08/11/23 16:00 08/11/23 16:00 Temperature 98.0 F Pulse Rate 67 65 Respiratory Rate 16 Blood Pressure 136/70 Pulse Oximetry 99 Oxygen Delivery Room Air Fraction of Inspired Oxygen 08/11/23 16:00 08/11/23 18:00 08/11/23 20:10 Temperature 97.5 F L Pulse Rate 80 54 L 65 Respiratory Rate 12 Blood Pressure 154/87 H Pulse Oximetry 97 Oxygen Delivery Fraction of Inspired Oxygen 08/11/23 20:00 08/12/23 00:00 08/11/23 20:00 Temperature 97.2 F L Pulse Rate 65 62 72 Respiratory Rate 12 12 Blood Pressure 146/86 H Pulse Oximetry 97 95 Oxygen Delivery Room Air Fraction of Inspired Oxygen 08/11/23 22:00 08/12/23 00:00 08/12/23 00:00 Temperature Pulse Rate 57 L
[2023-08-12 16:32] LABS: Glucose Point of Care 171 mg/dl (65-105)
[2023-08-12] MEDS: MELATONIN 5 MG TABLET PO (20:17)
[2023-08-12] MEDS: PRAVASTATIN SODIUM 20 MG TABLET 40 MG PO (20:17)
[2023-08-12 21:57] LABS: Glucose Point of Care 212 mg/dl (65-105)
[2023-08-12] MEDS: INSULIN HUMAN ISOPHAN/REGULAR 70/30 (*BKC) 100 UNITS/ML 12 UNITS SUB-Q (22:19)
--- NOTE | 2023-08-12 23:51 | PC.NURSE ---
This patient, Taye Marrero Jr., was transferred to [facility] on 08/12/23 at 2352. Personal belongings sent with patient. Report given to RONNIE Eller. Appropriate documentation sent with patient.
--- NOTE | 2023-08-12 23:53 | PC.NURSE ---
RECEIVED PT FROM IMU PER BED, VOICES NO C/O
[2023-08-13] VITALS (8 sets, daily range): BP systolic 137–159; BP diastolic 62–94; PULSE 58–83; RESP 17–18; TEMP 36.1–36.8; O2SAT 96–100
[2023-08-13 05:22] LABS: Hematocrit 39.1 % (42.0-52.0); Hemoglobin 11.5 g/dL (14.0-18.0); Mean Corpuscular HGB Conc 29.4 g/dl (32-36); Mean Corpuscular Hemoglobin 26.1 pg (26-34); Mean Corpuscular Volume 88.9 fl (80-100); Mean Platelet Volume 9.9 fl (7.4-10.4); Platelet Count Result 257 k/mm3 (150-375); White Blood Count 8.6 K/mm3 (4.5-10.0)
[2023-08-13 05:33] LABS: Anion Gap 4 mmol/L (4-12); Blood Urea Nitrogen 16 mg/dL (9-20); Calcium 10.1 mg/dL (8.4-10.2); Carbon Dioxide 27 mmol/L (22-30); Chloride 105 mmol/L (98-107); Estimated CRCL calculation 119 ml/min; Estimated Glomerular Filt Rate > 60; Glucose 187 mg/dL (65-110); Magnesium 1.9 mg/dL (1.6-2.3); Potassium 4.4 mmol/L (3.4-5.0); Sodium 136 mmol/L (137-145)
[2023-08-13] MEDS: LEVOTHYROXINE SODIUM 100 MCG TABLET PO (05:37)
[2023-08-13] MEDS: GABAPENTIN 300 MG CAPSULE PO ×4 (05:37→20:29)
[2023-08-13] MEDS: METOPROLOL SUCCINATE EXT REL 25 MG TABCR 75 MG PO (08:12)
[2023-08-13] MEDS: APIXABAN 5 MG TABLET PO ×2 (08:12→20:26)
[2023-08-13] MEDS: cefTRIAXone 2 GM/NS 100 ML 2 GM/100 ML BAG IVPB (08:12)
[2023-08-13] MEDS: ASPIRIN 81 MG ENTERIC TABLET PO (08:12)
[2023-08-13 08:13] LABS: Glucose Point of Care 163 mg/dl (65-105)
[2023-08-13] MEDS: THERAPEUTIC MULTIVITAMINS/MINERALS TAB (*BKC) 1 TABLET PO (08:13)
[2023-08-13] MEDS: buPROPion HCL XL (24 HR) 150 MG TABCR PO (08:13)
[2023-08-13] MEDS: FAMOTIDINE 20 MG TABLET PO (08:13)
[2023-08-13] MEDS: EUCERIN CREAM 454 GM JAR 1 APPLIC TOPICAL (08:14)
[2023-08-13 08:17] LABS: Glucose Point of Care 149 mg/dl (65-105)
[2023-08-13] MEDS: INSULIN HUMAN ISOPHAN/REGULAR 70/30 (*BKC) 100 UNITS/ML 25 UNITS SUB-Q (08:17)
[2023-08-13] MEDS: VALSARTAN 40 MG TABLET PO (08:21)
--- NOTE | 2023-08-13 11:19 | PM.IMPN ---
Progress Note: A&P Assessment and Plan (1) Sepsis: Code(s): A41.9 - Sepsis, unspecified organism Status: Acute (2) Atrial fibrillation with rapid ventricular response: Code(s): I48.91 - Unspecified atrial fibrillation Status: Acute (3) Acute hyperkalemia: Code(s): E87.5 - Hyperkalemia Status: Acute (4) Acute UTI: Code(s): N39.0 - Urinary tract infection, site not specified Status: Acute (5) Hypertension: Code(s): I10 - Essential (primary) hypertension Status: Acute Plan 68 y/o M who presented to the ER on 08/07/2023 with neck, head, and arm pain. He comes from a local nursing facility. EMS was called and was noted to have heart rate in 130s to 170s. He does have history of paroxysmal atrial fibrillation. Initial VS at presentation: HR 125, RR 19, 129/95, and 98% on RA. ED workup showed: Leukocytosis with WBC 16.7, hemoglobin 13.4, INR 1.4, potassium 5.3, creatinine 1.1 and GFR >60, glucose 264, lactic acid 3.5, troponin 0.017. UA suspicious for UTI. Head CT showed normal aging brain. C-spine CT showed severe cervical spondylosis. CXR showed possible minimal central pulmonary edema. 1. Sepsis: Blood culture growing group B Streptococcus from day of admission Repeat blood culture negative till date, will need 10 days of IV ceftriaxone from last negative blood culture Urine culture was unremarkable History of heel ulcers specially on the left Await MRI of the he will Continue with ceftriaxone Will likely plan to discharge on IV ceftriaxone, unless MRI foot has something concerning 2. AFib with RVR: Appreciate cardiology help Patient has history of permanent atrial fibrillation Continue with metoprolol 75 mg Continue with Eliquis 3. Diabetes mellitus: , blood sugar stable at the moment Hemoglobin A1c 8.4 recently Continue with mixed insulin, 25 units in the morning, continue with bedtime insulin at 12 units 4. History of hypothyroidism: Continue with levothyroxine 5. Hypertension: Continue with valsartan 40 mg 6. DVT prophylaxis: Eliquis 7. Code status: Full 8. Continue with chronic indwelling Coats catheter 9. Disposition: Pending improvement Time Spent With Patient Time with patient: 15 - 25 minutes Subjective Date/time seen: 08/13/23 11:19 Interval history: No acute events overnight, sleeping this morning Review of Systems Review of Systems: All systems reviewed & are unremarkable except as noted in HPI and below Exam Narrative: General: Well-developed, obese, not in acute distress Head: Normocephalic, atraumatic Eyes: Pupils equally round and reactive to light bilaterally, Mouth: Oropharynx without lesions or masses, Neck: Supple, Cardio: Irregular rate rhythm rate controlled, s1 and s2 normal, Resp: Lung sounds diminished in the bases otherwise clear,, Musculoskeletal: No deformity, non-tender to palpation, grossly normal range of motion, muscle strength equal,peripheral pulse strong, no edema, no cyanosis, normal gait and station Neuro: Alert and oriented x1, . Objective Data Vital Signs Vital Signs: Vital Signs - 24 hr 08/12/23 12:00 08/12/23 12:00 08/12/23 16:00 Temperature 98 F Pulse Rate 58 L 57 L 58 L Respiratory Rate 20 Blood Pressure 160/92 H Pulse Oximetry 99 Oxygen Delivery 08/12/23 16:00 08/12/23 19:10 08/12/23 20:00 Temperature 98 F 99.2 F Pulse Rate 63 65 Respiratory Rate 16 18 Blood Pressure 171/91 H Pulse Oximetry 98 98 Oxygen Delivery Room Air 08/12/23 20:00 08/12/23 23:52 08/13/23 00:00 Temperature 97.6 F Pulse Rate 75 63 64 Respiratory Rate 17 Blood Pressure 151/94 H Pulse Oximetry 97 Oxygen Delivery 08/13/23 00:00 08/13/23 04:00 08/13/23 04:00 Temperature 98.2 F Pulse Rate 59 L 63 64 Respiratory Rate 18 Blood Pressure 137/80 Pulse Oximetry 96 Oxygen Delivery 08/13/23 07:44 08/13/23 08:12 08/13/23 08:00 T
[2023-08-13 12:06] LABS: Glucose Point of Care 184 mg/dl (65-105)
[2023-08-13] MEDS: MAGNESIUM OXIDE 400 MG TABLET PO (13:00)
[2023-08-13 16:55] LABS: Glucose Point of Care 267 mg/dl (65-105)
[2023-08-13] MEDS: INSULIN ASPART (*BKC) 100 UNITS/ML SUB-Q (17:05)
[2023-08-13 19:42] LABS: Glucose Point of Care 242 mg/dl (65-105)
[2023-08-13] MEDS: INSULIN HUMAN ISOPHAN/REGULAR 70/30 (*BKC) 100 UNITS/ML 12 UNITS SUB-Q (20:24)
[2023-08-13] MEDS: MELATONIN 5 MG TABLET PO (20:27)
[2023-08-13] MEDS: PRAVASTATIN SODIUM 20 MG TABLET 40 MG PO (20:29)
[2023-08-14] VITALS (11 sets, daily range): BP systolic 112–159; BP diastolic 60–80; PULSE 59–86; RESP 17–20; TEMP 36.1–36.6; O2SAT 95–99
[2023-08-14] MEDS: CEFEPIME 2 GM/NS 50 ML 2 GM/50 ML BAG IVPB ×3 (00:41→23:19)
[2023-08-14] MEDS: metroNIDAZOLE 500 MG/ISO 100ML 500 MG/100 ML BAG 100 MG IVPB ×4 (01:09→23:45)
[2023-08-14] MEDS: VANCOMYCIN 1,250 MG/NS 250 ML 1,250 MG/250 ML BAG 166.67 MG IVPB ×2 (02:04→03:56)
[2023-08-14 05:19] LABS: Hematocrit 37.1 % (42.0-52.0); Hemoglobin 11.2 g/dL (14.0-18.0); Mean Corpuscular HGB Conc 30.2 g/dl (32-36); Mean Corpuscular Hemoglobin 26.9 pg (26-34); Mean Platelet Volume 10.3 fl (7.4-10.4); Platelet Count Result 265 k/mm3 (150-375); Red Blood Count 4.17 M/mm3 (4.6-6.20); Red Cell Distribution Width 15.3 % (11.5-14.5)
[2023-08-14 05:37] LABS: Anion Gap 6 mmol/L (4-12); Blood Urea Nitrogen 19 mg/dL (9-20); Calcium 9.6 mg/dL (8.4-10.2); Carbon Dioxide 25 mmol/L (22-30); Chloride 105 mmol/L (98-107); Estimated CRCL calculation 108 ml/min; Estimated Glomerular Filt Rate > 60; Glucose 154 mg/dL (65-110); Magnesium 1.9 mg/dL (1.6-2.3); Sodium 136 mmol/L (137-145)
[2023-08-14] MEDS: LEVOTHYROXINE SODIUM 100 MCG TABLET PO (05:43)
[2023-08-14] MEDS: GABAPENTIN 300 MG CAPSULE PO ×4 (05:43→20:28)
[2023-08-14 08:16] LABS: Glucose Point of Care 155 mg/dl (65-105)
[2023-08-14] MEDS: METOPROLOL SUCCINATE EXT REL 25 MG TABCR 75 MG PO (09:09)
[2023-08-14] MEDS: APIXABAN 5 MG TABLET PO ×2 (09:09→20:23)
[2023-08-14] MEDS: ASPIRIN 81 MG ENTERIC TABLET PO (09:09)
[2023-08-14] MEDS: VALSARTAN 40 MG TABLET PO (09:09)
[2023-08-14] MEDS: buPROPion HCL XL (24 HR) 150 MG TABCR PO (09:09)
[2023-08-14] MEDS: THERAPEUTIC MULTIVITAMINS/MINERALS TAB (*BKC) 1 TABLET PO (09:09)
[2023-08-14] MEDS: FAMOTIDINE 20 MG TABLET PO (09:09)
[2023-08-14] MEDS: INSULIN HUMAN ISOPHAN/REGULAR 70/30 (*BKC) 100 UNITS/ML 25 UNITS SUB-Q (09:13)
[2023-08-14] MEDS: EUCERIN CREAM 454 GM JAR 1 APPLIC TOPICAL (09:16)
--- NOTE | 2023-08-14 09:48 | PCPTNOTE ---
Attempted to see patient for PT, however patient refused due to foot pain and patient reported he got bad news about his foot.
[2023-08-14] MEDS: MAGNESIUM OXIDE 400 MG TABLET PO (11:23)
--- NOTE | 2023-08-14 11:28 | PM.IMPN ---
Progress Note: A&P Assessment and Plan (1) Sepsis: Code(s): A41.9 - Sepsis, unspecified organism Status: Acute (2) Atrial fibrillation with rapid ventricular response: Code(s): I48.91 - Unspecified atrial fibrillation Status: Acute (3) Acute hyperkalemia: Code(s): E87.5 - Hyperkalemia Status: Acute (4) Acute UTI: Code(s): N39.0 - Urinary tract infection, site not specified Status: Acute (5) Hypertension: Code(s): I10 - Essential (primary) hypertension Status: Acute Plan 68 y/o M who presented to the ER on 08/07/2023 with neck, head, and arm pain. He comes from a local nursing facility. EMS was called and was noted to have heart rate in 130s to 170s. He does have history of paroxysmal atrial fibrillation. Initial VS at presentation: HR 125, RR 19, 129/95, and 98% on RA. ED workup showed: Leukocytosis with WBC 16.7, hemoglobin 13.4, INR 1.4, potassium 5.3, creatinine 1.1 and GFR >60, glucose 264, lactic acid 3.5, troponin 0.017. UA suspicious for UTI. Head CT showed normal aging brain. C-spine CT showed severe cervical spondylosis. CXR showed possible minimal central pulmonary edema. 1. Sepsis: Blood culture growing group B Streptococcus from day of admission Repeat blood culture negative till date, will need 10 days of IV ceftriaxone from last negative blood culture Urine culture was unremarkable History of heel ulcers specially on the left MRI foot with osteomyelitis with cortical erosion at the plantar/lateral aspect of posterior tuberosity of the calcaneus along with deep ulceration. Continue antibiotics added on vancomycin cefepime and Flagyl Will consult Podiatry/orthopedics 2. AFib with RVR: Appreciate cardiology help Patient has history of permanent atrial fibrillation Continue with metoprolol 75 mg Continue with Eliquis 3. Diabetes mellitus: , blood sugar stable at the moment Hemoglobin A1c 8.4 recently Continue with mixed insulin, 25 units in the morning, continue with bedtime insulin at 12 units 4. History of hypothyroidism: Continue with levothyroxine 5. Hypertension: Continue with valsartan 40 mg 6. DVT prophylaxis: Eliquis 7. Code status: Full 8. Continue with chronic indwelling Coats catheter 9. Disposition: Pending improvement Subjective Date/time seen: 08/14/23 11:28 Interval history: No acute events overnight, antibiotics switched to vanc cefepime and Flagyl. MRI foot reviewed. Chronic nonhealing ulcer on left foot Review of Systems Review of Systems: All systems reviewed & are unremarkable except as noted in HPI and below Exam Narrative: General: Well-developed, obese, not in acute distress Head: Normocephalic, atraumatic Eyes: Pupils equally round and reactive to light bilaterally, Mouth: Oropharynx without lesions or masses, Neck: Supple, Cardio: Irregular rate rhythm rate controlled, s1 and s2 normal, Resp: Lung sounds diminished in the bases otherwise clear,, Musculoskeletal: No deformity, non-tender to palpation, generalized weakness,peripheral pulse strong, no edema, no cyanosis, left heel ulcer noted with no signs of active infection Neuro: Alert and oriented x1, . Objective Data Vital Signs Vital Signs: Vital Signs - 24 hr 08/13/23 11:33 08/13/23 16:49 08/13/23 20:00 Temperature 97.0 F L 97.8 F 98.2 F Pulse Rate 64 78 83 Respiratory Rate 17 17 18 Blood Pressure 141/68 H 150/64 H 159/85 H Pulse Oximetry 100 97 97 Oxygen Delivery 08/13/23 20:00 08/14/23 00:00 08/14/23 00:00 Temperature 97.8 F Pulse Rate 76 63 86 Respiratory Rate 17 Blood Pressure 147/80 H Pulse Oximetry 99 Oxygen Delivery 08/14/23 04:00 08/14/23 04:00 08/14/23 08:07 Temperature 97.7 F 97.5 F L Pulse Rate 59 L 61 65 Respiratory Rate 17 17 Blood Pressure 112/66 155/60 H Pulse Oximetry 95 97 Oxygen Delivery 08/14/23 09:09 08/14/23 08:00 Temperature Pulse Rate 70 Res
[2023-08-14 11:45] LABS: Glucose Point of Care 189 mg/dl (65-105)
[2023-08-14 13:00] LABS: CRP 1.1 mg/dL (<1.0)
[2023-08-14 13:17] LABS: Erythrocyte Sedimentation Rate 46 mm/hr (0-20)
--- NOTE | 2023-08-14 13:29 | PM.CNOR ---
Assessment and Plan Assessment and plan (1) Diabetic foot ulcer: Qualifiers: Diabetic foot ulcer location: heel Diabetes mellitus type: type 2 Laterality: left Non-pressure ulcer stage: with necrosis of bone Qualified Code(s): E11.621 - Type 2 diabetes mellitus with foot ulcer; L97.424 - Non-pressure chronic ulcer of left heel and midfoot with necrosis of bone Code(s): E11.621 - Type 2 diabetes mellitus with foot ulcer; L97.509 - Non-pressure chronic ulcer of other part of unspecified foot with unspecified severity Status: Acute Assessment and Plan: Asked to see patient for bilateral heel ulcers left with more depth than the right. [facility]. Noted to have bilateral heel ulcers [facility] care at the [facility]. Was in a unna boot bilaterally at the time of admission 1 week ago. Chronic venous stasis skin changes bilateral lower extremities and exposed left heel bone. Radiographs show no acute changes. MRI of the left foot shows inflammation of the calcaneus consistent with osteomyelitis. At this time there does not appear to be any active infection of the right or left heel. Discussed with wound care team. They have been following the patient with silver gel and dressing changes. Patient not operative candidate at this time due to medical comorbidities. No unstable infectious changes of the heels noted at this time anyway. Recommendations: Offload and reduce pressure bilateral heels. Continue daily dressing changes with silver gel and wound covering. Continue chronic wound care when [facility] to [facility]. History of Present Illness HPI Consult date: 08/14/23 Requesting physician: Paul Rosado MD Consult reason: other (heel ulcers) Chief complaint: Afib with RVR/UTI/Hyperkalemia Narrative: 68-year-old gentleman admitted to the hospital 1 week ago. [facility] resident with chronic venous stasis bilateral lower extremities and chronic heel ulcers. Known to have heel ulcers upon review of the last several admissions to the hospital going back several months. Currently with silver gel Wound coverings. Reviewed with Wound Care team who is following the patient. Patient had radiographs and MRI which showed osteomyelitis of the left heel. Asked to evaluate. Review of Systems Constitutional: Constitutional: Reports fatigue Eyes: Eyes: Reports no additional eye complaints ENT: Reports system reviewed and no additional complaints, except as documented Cardiovascular: Cardiovascular: Reports no additional cardiovascular complaints Respiratory: Respiratory: Reports dyspnea on exertion Gastrointestinal: Gastrointestinal: Reports no additional gastrointestinal complaints Musculoskeletal: Musculoskeletal: Reports back pain Integumentary/Breasts: Skin/Breast: Reports system reviewed and no additional complaints, except as docu Neurologic: Reports system reviewed and no additional complaints, except as documented Endocrine: Endocrine: Reports no additional endocrine complaints Hematologic/Lymphatic: Hematologic/Lymphatic: Reports no additional hematologic/lymphatic complaints Allergic/Immunologic: Allergic/Immunologic: Reports no additional allergic/immunologic complaints [facility] Past Medical History Medical History A-fib Acute on chronic anemia Choledocholithiasis (05/2022) Chronic obstructive pulmonary disease Chronic venous insufficiency Depression Diastolic congestive heart failure Gastroesophageal reflux disease Hyperlipidemia Hypertension Hypothyroidism Insulin dependent diabetes mellitus Kidney stones Obstructive sleep apnea Non-compliant with CPAP. Occult blood in stools Paroxysmal atrial fibrillation Peripheral neuropathy Surgical History Surgical History History of appendectomy History of back surgery History
[2023-08-14] MEDS: VANCOMYCIN 1,500 MG/NS 500 ML 1,500 MG/500 ML BAG 250 MG IVPB (14:11)
--- NOTE | 2023-08-14 14:23 | PCOTNOTE ---
Attempted to see Patient for afternoon treatment session. Patient seemed very upset that someone interrupted his rest. Patient refused to participate in any activities, stated, Let me rest, I don't feel good .
[2023-08-14 17:00] LABS: Glucose Point of Care 291 mg/dl (65-105)
[2023-08-14] MEDS: INSULIN ASPART (*BKC) 100 UNITS/ML SUB-Q (17:24)
[2023-08-14] MEDS: PRAVASTATIN SODIUM 20 MG TABLET 40 MG PO (20:23)
[2023-08-14] MEDS: MELATONIN 5 MG TABLET PO (20:24)
[2023-08-14] MEDS: INSULIN HUMAN ISOPHAN/REGULAR 70/30 (*BKC) 100 UNITS/ML 12 UNITS SUB-Q (20:27)
[2023-08-14 20:33] LABS: Glucose Point of Care 299 mg/dl (65-105)
[2023-08-15] VITALS (9 sets, daily range): BP systolic 144–170; BP diastolic 69–86; PULSE 59–75; RESP 17–20; TEMP 36.4–36.6; O2SAT 94–96
[2023-08-15] MEDS: VANCOMYCIN 1,500 MG/NS 500 ML 1,500 MG/500 ML BAG 250 MG IVPB (00:50)
[2023-08-15 05:13] LABS: Hematocrit 38.2 % (42.0-52.0); Hemoglobin 11.4 g/dL (14.0-18.0); Mean Corpuscular HGB Conc 29.8 g/dl (32-36); Mean Corpuscular Hemoglobin 26.6 pg (26-34); Mean Platelet Volume 9.9 fl (7.4-10.4); Platelet Count Result 261 k/mm3 (150-375); Red Blood Count 4.29 M/mm3 (4.6-6.20); Red Cell Distribution Width 15.5 % (11.5-14.5); White Blood Count 7.2 K/mm3 (4.5-10.0)
[2023-08-15 05:31] LABS: Anion Gap 3 mmol/L (4-12); Blood Urea Nitrogen 17 mg/dL (9-20); Calcium 9.8 mg/dL (8.4-10.2); Carbon Dioxide 28 mmol/L (22-30); Chloride 106 mmol/L (98-107); Estimated CRCL calculation 106 ml/min; Estimated Glomerular Filt Rate > 60; Glucose 144 mg/dL (65-110); Magnesium 1.8 mg/dL (1.6-2.3); Potassium 4.1 mmol/L (3.4-5.0); Sodium 137 mmol/L (137-145)
[2023-08-15] MEDS: LEVOTHYROXINE SODIUM 100 MCG TABLET PO (05:51)
[2023-08-15] MEDS: GABAPENTIN 300 MG CAPSULE PO ×4 (05:51→19:59)
[2023-08-15 08:24] LABS: Glucose Point of Care 119 mg/dl (65-105)
[2023-08-15] MEDS: SENNA/DOCUSATE SODIUM TABLET 1 TAB PO ×2 (09:02→18:21)
[2023-08-15] MEDS: buPROPion HCL XL (24 HR) 150 MG TABCR PO (09:02)
[2023-08-15] MEDS: APIXABAN 5 MG TABLET PO ×2 (09:02→19:59)
[2023-08-15] MEDS: ASPIRIN 81 MG ENTERIC TABLET PO (09:02)
[2023-08-15] MEDS: THERAPEUTIC MULTIVITAMINS/MINERALS TAB (*BKC) 1 TABLET PO (09:03)
[2023-08-15] MEDS: EUCERIN CREAM 454 GM JAR 1 APPLIC TOPICAL (09:03)
[2023-08-15] MEDS: metroNIDAZOLE 500 MG/ISO 100ML 500 MG/100 ML BAG 100 MG IVPB ×2 (09:03→18:21)
[2023-08-15] MEDS: VALSARTAN 40 MG TABLET PO (09:03)
[2023-08-15] MEDS: METOPROLOL SUCCINATE EXT REL 25 MG TABCR 75 MG PO (09:03)
[2023-08-15] MEDS: FAMOTIDINE 20 MG TABLET PO (09:03)
[2023-08-15] MEDS: polyethylene glycoL 3350 17 GM POWD.PACK PO (09:03)
[2023-08-15] MEDS: INSULIN HUMAN ISOPHAN/REGULAR 70/30 (*BKC) 100 UNITS/ML 25 UNITS SUB-Q (09:05)
[2023-08-15 12:08] LABS: Glucose Point of Care 157 mg/dl (65-105)
--- NOTE | 2023-08-15 12:39 | PM.IMPN ---
Progress Note: A&P Assessment and Plan (1) Osteomyelitis: Code(s): M86.9 - Osteomyelitis, unspecified Status: Acute Assessment and Plan: 08/14 day 8 antibiotics (now cefepime and metronidazole) (2) Atrial fibrillation with rapid ventricular response: Code(s): I48.91 - Unspecified atrial fibrillation Status: Acute Assessment and Plan: Rate controlled, d/c tele 08/14 (3) Hypertension: Code(s): I10 - Essential (primary) hypertension Status: Acute Assessment and Plan: Controlled (4) Diabetic foot infection: Code(s): E11.628 - Type 2 diabetes mellitus with other skin complications; L08.9 - Local infection of the skin and subcutaneous tissue, unspecified Status: Acute Assessment and Plan: Cefepime, metronidazole (5) Insulin dependent diabetes mellitus: Status: Chronic Assessment and Plan: 08/14 FBS 144, continue regimen (6) CHF (congestive heart failure): Qualifiers: Heart failure chronicity: unspecified Heart failure type: unspecified Qualified Code(s): I50.9 - Heart failure, unspecified Code(s): I50.9 - Heart failure, unspecified Status: Acute Assessment and Plan: Clinically euvolemic (7) Hypothyroid: Code(s): E03.9 - Hypothyroidism, unspecified Status: Acute Assessment and Plan: Continue home regimen (8) Sepsis: Code(s): A41.9 - Sepsis, unspecified organism Status: Acute Assessment and Plan: Beta-strep bacteremia likely due to diabetic foot infection, osteomyleitis Sepsis resolved Subjective Date/time seen: 08/15/23 12:39 Interval history: Denied pain. Denied shortness of breath. Has a hard spot on his belly that is been there chronically. Right flank region. Not tender. Gives insulin shots quite a bit there. Denied swelling. Denied bowel or bladder issues. Denied abnormal bleeding. Appetite fair. Review of Systems Review of Systems: All systems reviewed & are unremarkable except as noted in HPI and below Exam Narrative: HEENT: sclerae nonicteric, pharyngeal mucosa pink and intact NECK: No JVD CHEST: Clear to auscultation. Normal effort. HEART: NL S1/S2, irregular, no murmur ABDOMEN: BS+, soft, nontender, no mass, no bruits, firm subcutaneous tissue right flank. EXTREMITIES: No cyanosis, edema, or clubbing. NEUROLOGIC: CN intact and symmetric to inspection. MUSCULOSKELETAL: Tone and strength symmetric. PSYCH: Alert. Oriented to person, place, but not to year. Objective Data Vital Signs Vital Signs: Vital Signs - 24 hr 08/14/23 16:45 08/14/23 16:00 08/14/23 19:40 Temperature 97.4 F L Pulse Rate 74 85 Respiratory Rate 18 Blood Pressure 147/76 H Pulse Oximetry 97 Oxygen Delivery Room Air 08/14/23 20:00 08/14/23 23:49 08/15/23 04:00 Temperature 97.0 F L 97.7 F 97.8 F Pulse Rate 69 61 59 L Respiratory Rate 20 20 20 Blood Pressure 159/78 H 144/74 H 156/71 H Pulse Oximetry 96 95 94 Oxygen Delivery 08/14/23 20:00 08/15/23 00:00 08/15/23 04:00 Temperature Pulse Rate 69 67 61 Respiratory Rate Blood Pressure Pulse Oximetry Oxygen Delivery 08/15/23 05:41 08/15/23 09:01 08/15/23 09:03 Temperature 97.5 F L Pulse Rate 69 70 Respiratory Rate 17 Blood Pressure 144/77 H Pulse Oximetry 94 95 Oxygen Delivery Room Air 08/15/23 08:00 08/15/23 09:00 Temperature Pulse Rate 61 Respiratory Rate Blood Pressure Pulse Oximetry Oxygen Delivery Room Air Intake/Output Intake/Output: Intake & Output 08/12/23 08/13/23 08/14/23 08/15/23 23:59 23:59 23:59 23:59 Intake Total 2270 2060 2960 680 Output Total 3050 1750 2800 200 Balance -780 310 160 480 Meds/Results Medications: Active Medications Generic Name Dose Route Start Last Admin Trade Name Freq PRN Reason Stop Dose Admin Acetaminophen 650 mg 08/07/23 16:17 08/07/23 16:38 Acetaminop
[2023-08-15] MEDS: MAGNESIUM OXIDE 400 MG TABLET PO (12:54)
[2023-08-15] MEDS: CEFEPIME 2 GM/NS 50 ML 2 GM/50 ML BAG IVPB ×2 (12:54→23:50)
[2023-08-15 13:57] LABS: Vancomycin Trough 21.1 ug/mL (10.0-20.0)
[2023-08-15] MEDS: ACETAMINOPHEN 325 MG TABLET 650 MG PO (16:05)
[2023-08-15 17:27] LABS: Glucose Point of Care 172 mg/dl (65-105)
[2023-08-15] MEDS: PRAVASTATIN SODIUM 20 MG TABLET 40 MG PO (19:59)
[2023-08-15] MEDS: MELATONIN 5 MG TABLET PO (19:59)
[2023-08-15] MEDS: VANCOMYCIN 1,250 MG/NS 250 ML 1,250 MG/250 ML BAG 166.67 MG IVPB (20:00)
[2023-08-15 20:51] LABS: Glucose Point of Care 223 mg/dl (65-105)
[2023-08-15] MEDS: INSULIN HUMAN ISOPHAN/REGULAR 70/30 (*BKC) 100 UNITS/ML 12 UNITS SUB-Q (21:36)
[2023-08-16] VITALS (9 sets, daily range): BP systolic 144–166; BP diastolic 65–81; PULSE 60–78; RESP 16–18; TEMP 36.3–36.6; O2SAT 95–98
[2023-08-16] MEDS: metroNIDAZOLE 500 MG/ISO 100ML 500 MG/100 ML BAG 100 MG IVPB ×4 (00:30→23:34)
[2023-08-16 05:05] LABS: Hematocrit 37.4 % (42.0-52.0); Hemoglobin 11.4 g/dL (14.0-18.0); Mean Corpuscular HGB Conc 30.5 g/dl (32-36); Mean Corpuscular Hemoglobin 26.8 pg (26-34); Mean Corpuscular Volume 87.8 fl (80-100); Platelet Count Result 276 k/mm3 (150-375); Red Blood Count 4.26 M/mm3 (4.6-6.20); Red Cell Distribution Width 15.5 % (11.5-14.5); White Blood Count 7.4 K/mm3 (4.5-10.0)
[2023-08-16 05:16] LABS: Anion Gap 4 mmol/L (4-12); Blood Urea Nitrogen 21 mg/dL (9-20); Carbon Dioxide 27 mmol/L (22-30); Chloride 104 mmol/L (98-107); Estimated CRCL calculation 106 ml/min; Estimated Glomerular Filt Rate > 60; Glucose 155 mg/dL (65-110); Magnesium 1.9 mg/dL (1.6-2.3); Potassium 4.4 mmol/L (3.4-5.0); Sodium 135 mmol/L (137-145)
[2023-08-16] MEDS: LEVOTHYROXINE SODIUM 100 MCG TABLET PO (05:43)
[2023-08-16] MEDS: GABAPENTIN 300 MG CAPSULE PO ×4 (05:43→20:25)
[2023-08-16 08:15] LABS: Glucose Point of Care 134 mg/dl (65-105)
[2023-08-16] MEDS: APIXABAN 5 MG TABLET PO ×2 (09:08→20:23)
[2023-08-16] MEDS: buPROPion HCL XL (24 HR) 150 MG TABCR PO (09:08)
[2023-08-16] MEDS: THERAPEUTIC MULTIVITAMINS/MINERALS TAB (*BKC) 1 TABLET PO (09:08)
[2023-08-16] MEDS: SENNA/DOCUSATE SODIUM TABLET 1 TAB PO ×2 (09:08→18:04)
[2023-08-16] MEDS: FAMOTIDINE 20 MG TABLET PO (09:08)
[2023-08-16] MEDS: VALSARTAN 40 MG TABLET PO (09:08)
[2023-08-16] MEDS: METOPROLOL SUCCINATE EXT REL 25 MG TABCR 75 MG PO (09:08)
[2023-08-16] MEDS: ASPIRIN 81 MG ENTERIC TABLET PO (09:08)
[2023-08-16] MEDS: EUCERIN CREAM 454 GM JAR 1 APPLIC TOPICAL (09:11)
[2023-08-16] MEDS: INSULIN HUMAN ISOPHAN/REGULAR 70/30 (*BKC) 100 UNITS/ML 25 UNITS SUB-Q (09:19)
[2023-08-16] MEDS: VANCOMYCIN 1,250 MG/NS 250 ML 1,250 MG/250 ML BAG 166.67 MG IVPB (11:08)
[2023-08-16 12:01] LABS: Glucose Point of Care 148 mg/dl (65-105)
--- NOTE | 2023-08-16 12:02 | PM.IMPN ---
Progress Note: A&P Assessment and Plan (1) Osteomyelitis: Code(s): M86.9 - Osteomyelitis, unspecified Status: Acute Assessment and Plan: 08/15 day 9 antibiotics (now cefepime and metronidazole) Await ortho advice on further intervention (2) Atrial fibrillation with rapid ventricular response: Code(s): I48.91 - Unspecified atrial fibrillation Status: Acute Assessment and Plan: Rate controlled, d/c tele 08/14 (3) Hypertension: Code(s): I10 - Essential (primary) hypertension Status: Acute Assessment and Plan: 08/15 162/73, monitor (4) Diabetic foot infection: Code(s): E11.628 - Type 2 diabetes mellitus with other skin complications; L08.9 - Local infection of the skin and subcutaneous tissue, unspecified Status: Acute Assessment and Plan: Cefepime, metronidazole (5) Insulin dependent diabetes mellitus: Status: Chronic Assessment and Plan: 08/14 FBS 144, 08/15 155, continue regimen (6) CHF (congestive heart failure): Qualifiers: Heart failure chronicity: unspecified Heart failure type: unspecified Qualified Code(s): I50.9 - Heart failure, unspecified Code(s): I50.9 - Heart failure, unspecified Status: Acute Assessment and Plan: Clinically euvolemic (7) Hypothyroid: Code(s): E03.9 - Hypothyroidism, unspecified Status: Acute Assessment and Plan: Continue home regimen (8) Sepsis: Code(s): A41.9 - Sepsis, unspecified organism Status: Acute Assessment and Plan: Beta-strep bacteremia likely due to diabetic foot infection, osteomyleitis Sepsis resolved Subjective Date/time seen: 08/16/23 12:02 Interval history: Denied pain. Denied shortness of breath. Denied swelling. Denied bowel or bladder issues. Denied abnormal bleeding. Appetite fair. Does not like the food here. Prefers pizzas and hamburgers. Exam Narrative: HEENT: sclerae nonicteric, pharyngeal mucosa pink and intact NECK: No JVD CHEST: Clear to auscultation. Normal effort. HEART: NL S1/S2, irregular, no murmur ABDOMEN: BS+, soft, nontender, no mass, no bruits, firm subcutaneous tissue right flank. EXTREMITIES: No cyanosis, edema, or clubbing. NEUROLOGIC: CN intact and symmetric to inspection. MUSCULOSKELETAL: Tone and strength symmetric. PSYCH: Alert. Oriented to person, place, but not to year. Skin: Other: Photos in chart of each wound. Erythema 2 coccyx region. Bilateral lower extremity similar in appearance, with discoloration, blistering, small necrotic/eschar regions without specific pattern to anterior and posterior calves with underlying edema. Skin thickened. Small open region greater than 1 cm to left anterior moncada with red wound bed, no active drainage. Erythema with small area of purple discoloration along border to right heel. Left heel wound approximately 4 x 2 cm, open, wet read and white wound bed in small areas of what appears to be underlying necrosis, defined borders. Small necrotic/erythematous region to plantar aspect of left foot without active drainage. Small linear abrasion to right medial/proximal thigh. Objective Data Vital Signs Vital Signs: Vital Signs - 24 hr 08/15/23 16:00 08/15/23 19:33 08/15/23 19:50 Temperature 97.7 F 97.8 F Pulse Rate 66 75 Respiratory Rate 19 18 Blood Pressure 163/79 H 170/86 H Pulse Oximetry 96 94 Oxygen Delivery Room Air 08/16/23 00:00 08/16/23 04:00 08/16/23 09:08 Temperature 97.7 F 97.4 F L Pulse Rate 68 60 78 Respiratory Rate 18 18 Blood Pressure 166/81 H 162/73 H Pulse Oximetry 95 95 Oxygen Delivery 08/16/23 08:00 Temperature 97.6 F Pulse Rate 62 Respiratory Rate 17 Blood Pressure 148/68 H Pulse Oximetry 95 Oxygen Delivery Intake/Output Intake/Output: Intake & Output 08/13/23 08/14/23 08/15/23 08/16/23 23:59 23:59 23:59 23:59 Intake Total 2060 2960 1320 270 Outp
[2023-08-16] MEDS: MAGNESIUM OXIDE 400 MG TABLET PO (12:41)
[2023-08-16] MEDS: CEFEPIME 2 GM/NS 50 ML 2 GM/50 ML BAG IVPB ×2 (12:42→23:34)
[2023-08-16] MEDS: HYDROcodone/acetaminophen (*CRX) 5-325 MG TABLET 1 TAB PO (12:42)
[2023-08-16 17:03] LABS: Glucose Point of Care 127 mg/dl (65-105)
[2023-08-16 19:53] LABS: Glucose Point of Care 193 mg/dl (65-105)
[2023-08-16 19:56] LABS: Vancomycin Trough 23.6 ug/mL (10.0-20.0)
[2023-08-16] MEDS: PRAVASTATIN SODIUM 20 MG TABLET 40 MG PO (20:22)
[2023-08-16] MEDS: MELATONIN 5 MG TABLET PO (20:23)
[2023-08-16] MEDS: INSULIN HUMAN ISOPHAN/REGULAR 70/30 (*BKC) 100 UNITS/ML 12 UNITS SUB-Q (20:25)
[2023-08-17] VITALS (8 sets, daily range): BP systolic 117–154; BP diastolic 62–75; PULSE 58–71; RESP 16–18; TEMP 35.9–36.7; O2SAT 93–98
[2023-08-17] MEDS: LEVOTHYROXINE SODIUM 100 MCG TABLET PO (05:13)
[2023-08-17] MEDS: GABAPENTIN 300 MG CAPSULE PO ×4 (05:13→20:32)
[2023-08-17 05:16] LABS: Hematocrit 39.2 % (42.0-52.0); Hemoglobin 11.8 g/dL (14.0-18.0); Mean Corpuscular HGB Conc 30.1 g/dl (32-36); Mean Corpuscular Hemoglobin 26.7 pg (26-34); Mean Corpuscular Volume 88.7 fl (80-100); Mean Platelet Volume 9.5 fl (7.4-10.4); Platelet Count Result 273 k/mm3 (150-375); Red Blood Count 4.42 M/mm3 (4.6-6.20); Red Cell Distribution Width 15.6 % (11.5-14.5); White Blood Count 6.8 K/mm3 (4.5-10.0)
[2023-08-17 05:33] LABS: Anion Gap 4 mmol/L (4-12); Blood Urea Nitrogen 20 mg/dL (9-20); Calcium 9.8 mg/dL (8.4-10.2); Carbon Dioxide 28 mmol/L (22-30); Chloride 106 mmol/L (98-107); Estimated CRCL calculation 119 ml/min; Estimated Glomerular Filt Rate > 60; Glucose 84 mg/dL (65-110); Magnesium 1.9 mg/dL (1.6-2.3); Potassium 4.2 mmol/L (3.4-5.0); Sodium 138 mmol/L (137-145); Vancomycin Random 18.8 ug/mL (10-20)
[2023-08-17] MEDS: METOPROLOL SUCCINATE EXT REL 25 MG TABCR 75 MG PO (08:26)
[2023-08-17] MEDS: ASPIRIN 81 MG ENTERIC TABLET PO (08:26)
[2023-08-17] MEDS: VALSARTAN 40 MG TABLET PO (08:26)
[2023-08-17] MEDS: APIXABAN 5 MG TABLET PO ×2 (08:26→20:32)
[2023-08-17 08:27] LABS: Glucose Point of Care 97 mg/dl (65-105)
[2023-08-17] MEDS: SENNA/DOCUSATE SODIUM TABLET 1 TAB PO ×2 (08:27→17:45)
[2023-08-17] MEDS: buPROPion HCL XL (24 HR) 150 MG TABCR PO (08:27)
[2023-08-17] MEDS: FAMOTIDINE 20 MG TABLET PO (08:27)
[2023-08-17] MEDS: THERAPEUTIC MULTIVITAMINS/MINERALS TAB (*BKC) 1 TABLET PO (08:27)
[2023-08-17] MEDS: metroNIDAZOLE 500 MG/ISO 100ML 500 MG/100 ML BAG 100 MG IVPB (08:30)
[2023-08-17] MEDS: INSULIN HUMAN ISOPHAN/REGULAR 70/30 (*BKC) 100 UNITS/ML 25 UNITS SUB-Q (08:34)
[2023-08-17] MEDS: EUCERIN CREAM 454 GM JAR 1 APPLIC TOPICAL (09:31)
[2023-08-17] MEDS: VANCOMYCIN 1,500 MG/NS 500 ML 1,500 MG/500 ML BAG 250 MG IVPB (09:33)
--- NOTE | 2023-08-17 11:08 | PCNWS ---
Weekly nutritional screen. Patient is tolerating current diet with adequate intake, 100% meals on diabetic consistent carb diet. No weight loss reported. No nutritional needs at this time.
[2023-08-17 11:52] LABS: Glucose Point of Care 146 mg/dl (65-105)
[2023-08-17] MEDS: CEFEPIME 2 GM/NS 50 ML 2 GM/50 ML BAG IVPB (12:24)
[2023-08-17] MEDS: MAGNESIUM OXIDE 400 MG TABLET PO (12:26)
[2023-08-17] MEDS: HYDROcodone/acetaminophen (*CRX) 5-325 MG TABLET 1 TAB PO (13:37)
--- NOTE | 2023-08-17 13:45 | PCPTNOTE ---
pt refused PT treatment, when pt was asked why he is refusing he stated my feet hurt too bad and I do not want to even talk to you , will follow
--- NOTE | 2023-08-17 15:17 | PM.IMPN ---
Progress Note: A&P Assessment and Plan (1) Sepsis: Code(s): A41.9 - Sepsis, unspecified organism Status: Acute (2) Atrial fibrillation with rapid ventricular response: Code(s): I48.91 - Unspecified atrial fibrillation Status: Acute (3) Acute hyperkalemia: Code(s): E87.5 - Hyperkalemia Status: Acute (4) Acute UTI: Code(s): N39.0 - Urinary tract infection, site not specified Status: Acute (5) Hypertension: Code(s): I10 - Essential (primary) hypertension Status: Acute Plan 68 y/o M who presented to the ER on 08/07/2023 with neck, head, and arm pain. He comes from a local nursing facility. EMS was called and was noted to have heart rate in 130s to 170s. He does have history of paroxysmal atrial fibrillation. Initial VS at presentation: HR 125, RR 19, 129/95, and 98% on RA. ED workup showed: Leukocytosis with WBC 16.7, hemoglobin 13.4, INR 1.4, potassium 5.3, creatinine 1.1 and GFR >60, glucose 264, lactic acid 3.5, troponin 0.017. UA suspicious for UTI. Head CT showed normal aging brain. C-spine CT showed severe cervical spondylosis. CXR showed possible minimal central pulmonary edema. 1. Sepsis: Blood culture growing group B Streptococcus from day of admission Repeat blood culture negative till date, will need 10 days of IV ceftriaxone from last negative blood culture Urine culture was unremarkable History of heel ulcers specially on the left MRI foot with osteomyelitis with cortical erosion at the plantar/lateral aspect of posterior tuberosity of the calcaneus along with deep ulceration. Continue antibiotics added on vancomycin cefepime and Flagyl orthopedic consulted ESR mildly elevated at 46 but CRP is normal at 1.1 Was treated for osteomyelitis of calcaneum for total 6 weeks wound culture from left heel at that time grew MRSA and Pseudomonas. Will get wound swab from left heel ulcer but may direct the treatment course according to the culture report Ideally need to be followed up with Infectious Disease specialist for chronic suppressive therapy as definitive source control is not feasible or possible on potentially chronic suppressive therapy 2. AFib with RVR: Appreciate cardiology help Patient has history of permanent atrial fibrillation Continue with metoprolol 75 mg Continue with Eliquis 3. Diabetes mellitus: , blood sugar stable at the moment Hemoglobin A1c 8.4 recently Continue with mixed insulin, 25 units in the morning, continue with bedtime insulin at 12 units 4. History of hypothyroidism: Continue with levothyroxine 5. Hypertension: Continue with valsartan 40 mg 6. DVT prophylaxis: Eliquis 7. Code status: Full 8. Continue with chronic indwelling Coats catheter 9. Disposition: Pending improvement Subjective Date/time seen: 08/17/23 15:17 Interval history: Working with therapy no new complaints. Left heel wound dressed not much drainage per nursing staff. ESR mildly elevated at 46 CRP is normal Review of Systems Review of Systems: All systems reviewed & are unremarkable except as noted in HPI and below Exam Narrative: HEENT: sclerae nonicteric, pharyngeal mucosa pink and intact NECK: No JVD CHEST: Clear to auscultation. Normal effort. HEART: NL S1/S2, irregular, no murmur ABDOMEN: BS+, soft, nontender, no mass, no bruits, firm subcutaneous tissue right flank. EXTREMITIES: No cyanosis, edema, or clubbing. NEUROLOGIC: CN intact and symmetric to inspection. MUSCULOSKELETAL: Tone and strength symmetric. PSYCH: Alert. Oriented to person, place, but not to year. Objective Data Vital Signs Vital Signs: Vital Signs - 24 hr 08/16/23 16:00 08/16/23 19:18 08/16/23 20:00 Temperature 97.6 F 97.4 F L Pulse Rate 63 66 70 Respiratory Rate 18 16 16 Blood Pressure 144/70 H 151/65 H Pulse Oximetry 96 98 98 Oxygen Delivery Room Air Fraction of Inspired Oxygen 21 08/16/23 23:34 08/17/23 04:00 08/17/23
[2023-08-17 16:55] LABS: Glucose Point of Care 175 mg/dl (65-105)
[2023-08-17 19:50] LABS: Glucose Point of Care 147 mg/dl (65-105)
[2023-08-17] MEDS: PRAVASTATIN SODIUM 20 MG TABLET 40 MG PO (20:32)
[2023-08-17] MEDS: ACETAMINOPHEN 325 MG TABLET 650 MG PO (20:32)
[2023-08-17] MEDS: MELATONIN 5 MG TABLET PO (20:32)
[2023-08-17] MEDS: SULFAMETHOXAZOLE/TRIMETHOPRIM 800/160 MG DS TABLET 2 TAB PO (20:32)
[2023-08-17] MEDS: INSULIN HUMAN ISOPHAN/REGULAR 70/30 (*BKC) 100 UNITS/ML 12 UNITS SUB-Q (20:33)
[2023-08-18] MEDS: CEFEPIME 2 GM/NS 50 ML 2 GM/50 ML BAG IVPB ×2 (00:42→11:16)
[2023-08-18 03:33] VITALS: BP 127/55; PULSE 54; RESP 16; TEMP 36.4; O2SAT 96
[2023-08-18 05:56] LABS: Hematocrit 38.4 % (42.0-52.0); Hemoglobin 11.6 g/dL (14.0-18.0); Mean Corpuscular HGB Conc 30.2 g/dl (32-36); Mean Corpuscular Hemoglobin 26.9 pg (26-34); Mean Corpuscular Volume 88.9 fl (80-100); Mean Platelet Volume 9.8 fl (7.4-10.4); Platelet Count Result 297 k/mm3 (150-375); Red Blood Count 4.32 M/mm3 (4.6-6.20); Red Cell Distribution Width 15.7 % (11.5-14.5); White Blood Count 6.1 K/mm3 (4.5-10.0)
[2023-08-18 06:11] LABS: Anion Gap 6 mmol/L (4-12); Blood Urea Nitrogen 22 mg/dL (9-20); Calcium 9.7 mg/dL (8.4-10.2); Carbon Dioxide 26 mmol/L (22-30); Chloride 105 mmol/L (98-107); Estimated CRCL calculation 95 ml/min; Estimated Glomerular Filt Rate > 60; Glucose 83 mg/dL (65-110); Potassium 4.4 mmol/L (3.4-5.0); Sodium 137 mmol/L (137-145)
[2023-08-18] MEDS: LEVOTHYROXINE SODIUM 100 MCG TABLET PO (06:39)
[2023-08-18] MEDS: GABAPENTIN 300 MG CAPSULE PO ×3 (06:39→17:18)
[2023-08-18 07:54] LABS: Glucose Point of Care 87 mg/dl (65-105)
[2023-08-18 08:00] VITALS: BP 146/68; PULSE 62; RESP 20; TEMP 36.6; O2SAT 97
--- NOTE | 2023-08-18 09:38 | PM.PNORT ---
Progress Note: A&P Assessment and Plan (1) Diabetic foot ulcer: Qualifiers: Diabetic foot ulcer location: heel Diabetes mellitus type: type 2 Laterality: left Non-pressure ulcer stage: with necrosis of bone Qualified Code(s): E11.621 - Type 2 diabetes mellitus with foot ulcer; L97.424 - Non-pressure chronic ulcer of left heel and midfoot with necrosis of bone Code(s): E11.621 - Type 2 diabetes mellitus with foot ulcer; L97.509 - Non-pressure chronic ulcer of other part of unspecified foot with unspecified severity Status: Acute Assessment and Plan: Patient is chronic [facility] who was noted to have bilateral heel ulcers under care at the [facility]. Was in a unna boot bilaterally at the time of admission to the hosptial. Chronic venous stasis skin changes bilateral lower extremities and exposed left heel bone. Radiographs show no acute changes. MRI of the left foot shows inflammation of the calcaneus consistent with osteomyelitis. Wound continues show no signs of any active infection of the right or left heel. Patient not operative candidate at this time due to medical comorbidities. No unstable infectious changes of the heels noted at this time anyway. Continue nonoperative recommendations: Offload and reduce pressure bilateral heels. Continue daily dressing changes with silver gel and wound covering. Continue chronic wound care when patient returns to [facility]. Subjective Subjective Date/Time Seen: 08/18/23 09:38 Interval history: Patient awake/alert. No new complaints. Wanting to go back to his facility. Exam Const: General: obese; No in distress Nutritional Appearance: obese HENMT: Head: normal to inspection, normocephalic and atraumatic Eyes: Conjunctivae: conjunctivae normal Sclera: sclerae normal Neck: Neck: supple and nontender Resp: Effort & Inspection: normal respiratory effort and no audible wheezes Extrem: Right upper extremity: normal to inspection Left upper extremity: normal to inspection Right lower extremity: ankle Details: normal to inspection, abnormal ROM Details: with range as follows (Ankle dorsiflexion -10 degrees, Plantar flexion 40 degrees, inversion 15 degrees, [id number] degress) and other (Good stability all directions); no tenderness, no swelling and no ecchymosis and foot Details: abnormal to inspection Details: other (heel ulcer), abnormal ROM of toe (Hallux MTP dorsieflexion 40, planterflexion 20), vascular exam Details: dorsalis pedis pulse present and normal capillary refill, tendon exam Details: active flexion abnormal and active extension abnormal, motor-sensory exam Details: two point discrimination abnormal Location: in all toes and light-touch abnormal Location: in all toes and other (Hallux Metatarsophalangeal motion 20 degrees dorisiflexion 10 degrees, plantar flexion ) Left lower extremity: ankle Details: normal to inspection and abnormal ROM Details: with range as follows (Ankle dorsiflexion -10, planter flexion 40, inversion 15, eversion 15); no tenderness and no swelling and foot Details: abnormal to inspection Details: other (heel ulcer), abnormal ROM of toe, vascular exam (2+ DP pulse, good cap refill all toes), tendon exam active flexion normal of the great toe and active extension normal of the great toe and motor-sensory exam two point discrimination abnormal in all toes and light-touch abnormal in all toes; no tenderness and no crepitus Psych: Affect: normal affect Objective Data Vital Signs Vital Signs: Vital Signs - 24 hr 08/17/23 10:08 08/17/23 11:46 08/17/23 17:35 Temperature 35.9 C L 36.7 C Pulse Rate 62 61 Respiratory Rate 18 18 Blood Pressure 140/67 135/75 Pulse Oximetry 98 97 Oxygen Delivery Room Air Fraction of Inspired Oxygen 08/17/23 19:26 08/17/23 20:00 08/17/23 23:06 Temperature 36.4 C L 36.6 C Pulse Rate 58 L 62 58 L Respiratory Rate 16 17 16 Blood Pressure 142/72 H 117/63 P
[2023-08-18 09:43] VITALS: PULSE 63
[2023-08-18] MEDS: THERAPEUTIC MULTIVITAMINS/MINERALS TAB (*BKC) 1 TABLET PO (09:43)
[2023-08-18] MEDS: APIXABAN 5 MG TABLET PO (09:43)
[2023-08-18] MEDS: SULFAMETHOXAZOLE/TRIMETHOPRIM 800/160 MG DS TABLET 2 TAB PO (09:43)
[2023-08-18] MEDS: METOPROLOL SUCCINATE EXT REL 25 MG TABCR 75 MG PO (09:43)
[2023-08-18] MEDS: VALSARTAN 40 MG TABLET PO (09:43)
[2023-08-18] MEDS: buPROPion HCL XL (24 HR) 150 MG TABCR PO (09:43)
[2023-08-18] MEDS: FAMOTIDINE 20 MG TABLET PO (09:43)
[2023-08-18] MEDS: SENNA/DOCUSATE SODIUM TABLET 1 TAB PO (09:43)
[2023-08-18] MEDS: ASPIRIN 81 MG ENTERIC TABLET PO (09:43)
[2023-08-18] MEDS: INSULIN HUMAN ISOPHAN/REGULAR 70/30 (*BKC) 100 UNITS/ML 25 UNITS SUB-Q (09:51)
[2023-08-18] MEDS: EUCERIN CREAM 454 GM JAR 1 APPLIC TOPICAL (09:58)
[2023-08-18] MEDS: HYDROcodone/acetaminophen (*CRX) 5-325 MG TABLET 1 TAB PO (11:10)
--- NOTE | 2023-08-18 11:20 | PCPTNOTE ---
Attempted to see patient for PT, however patient refused. Patient reported he just got all the pillows situated in bed and did not want to move. Encouraged patient for participation, patient continued to refuse.
[2023-08-18] MEDS: MAGNESIUM OXIDE 400 MG TABLET PO (11:21)
[2023-08-18 12:00] VITALS: BP 135/68; PULSE 60; RESP 18; TEMP 36.4; O2SAT 99
[2023-08-18 12:02] LABS: Glucose Point of Care 147 mg/dl (65-105)
--- NOTE | 2023-08-18 13:37 | PCPTNOTE ---
Attempted to see patient for PT, however patient refused. Patient reported he did not want any therapy.
--- NOTE | 2023-08-18 15:54 | PM.DS ---
DS: Admitting Diagnosis Discharge Date 08/18/2023 Admitting Diagnosis Sepsis DS: Discharge Diagnosis Discharge Diagnosis (1) Sepsis: Code(s): A41.9 - Sepsis, unspecified organism Status: Acute (2) Atrial fibrillation with rapid ventricular response: Code(s): I48.91 - Unspecified atrial fibrillation Status: Acute (3) Acute hyperkalemia: Code(s): E87.5 - Hyperkalemia Status: Acute (4) Acute UTI: Code(s): N39.0 - Urinary tract infection, site not specified Status: Acute (5) Hypertension: Code(s): I10 - Essential (primary) hypertension Status: Acute DS: Summary Hospital Course Hospital Course: 68 y/o M who presented to the ER on 08/07/2023 with neck, head, and arm pain. He comes from a local nursing facility. EMS was called and was noted to have heart rate in 130s to 170s. He does have history of paroxysmal atrial fibrillation. Initial VS at presentation: HR 125, RR 19, 129/95, and 98% on RA. ED workup showed: Leukocytosis with WBC 16.7, hemoglobin 13.4, INR 1.4, potassium 5.3, creatinine 1.1 and GFR >60, glucose 264, lactic acid 3.5, troponin 0.017. UA suspicious for UTI. Head CT showed normal aging brain. C-spine CT showed severe cervical spondylosis. CXR showed possible minimal central pulmonary edema. 1. Sepsis: Blood culture growing group B Streptococcus from day of admission Repeat blood culture negative till date, switched to oral antibiotics with Augmentin Urine culture was unremarkable History of heel ulcers specially on the left MRI foot with osteomyelitis with cortical erosion at the plantar/lateral aspect of posterior tuberosity of the calcaneus along with deep ulceration. Patient was started on antibiotics vancomycin cefepime and Flagyl orthopedic consulted ESR mildly elevated at 46 but CRP is normal at 1.1 Was treated for osteomyelitis of calcaneum for total 6 weeks wound culture from left heel at that time grew MRSA and Pseudomonas. Wound swab from left heel ulcer pending No surgical intervention per Orthopedics Will empirically treat for another 6 weeks course of oral antibiotics to cover MRSA with Bactrim along with Augmentin cover the rest. 2. AFib with RVR: Appreciate cardiology help Patient has history of permanent atrial fibrillation Continue with metoprolol 75 mg Continue with Eliquis 3. Diabetes mellitus: , blood sugar stable at the moment Hemoglobin A1c 8.4 recently Continue with mixed insulin, 25 units in the morning, continue with bedtime insulin at 12 units 4. History of hypothyroidism: Continue with levothyroxine 5. Hypertension: Continue with valsartan 40 mg 6. DVT prophylaxis: Eliquis 7. Code status: Full 8. Continue with chronic indwelling Coats catheter 9. Disposition: Back to nursing facility Time Spent with Patient Time attestation: Total time spent providing and/or coordinating discharge services: 45 minutes Exam Narrative: HEENT: sclerae nonicteric, pharyngeal mucosa pink and intact NECK: No JVD CHEST: Clear to auscultation. Normal effort. HEART: NL S1/S2, irregular, no murmur ABDOMEN: BS+, soft, nontender, no mass, no bruits, firm subcutaneous tissue right flank. EXTREMITIES: No cyanosis, edema, or clubbing. NEUROLOGIC: CN intact and symmetric to inspection. MUSCULOSKELETAL: Tone and strength symmetric. PSYCH: Alert. Oriented to person, place, but not to year. DS: Data Data Completed and Pending Labs on day of discharge: Labs from last 24 hours 08/18/23 08/18/23 08/18/23 11:56 07:49 05:13 WBC 6.1 RBC 4.32 L Hgb 11.6 L Hct 38.4 L MCV 88.9 MCH 26.9 MCHC 30.2 L RDW 15.7 H Plt Count 297 MPV 9.8 Sodium 137 Potassium 4.4 Chloride 105 Carbon Dioxide 26 Anion Gap 6 BUN 22 H Creatinine 0.90 Estim Creat Clear Calc 95 Estimated GFR > 60 Glucose 83 POC Capillary Glucose 147 H 87 Calcium 9.7 Magnesium 2
[2023-08-18 16:51] LABS: Glucose Point of Care 125 mg/dl (65-105)
[2023-08-18 17:10] LABS: SARS-CoV-2 RNA PCR Negative (Negative)
== END 2023-08-18 19:00 | DRG 871 ==
LOC: ANHED 10:39 → ANHIMU 14:17 → ANH2MED 08-13 14:48 → ANHIMU 08-20 06:26
PROVIDERS: Family Medicine; Internal Medicine; Student in an Organized Health Care Education/Training Program; Admitting Provider Internal Medicine; Emergency Provider Nurse Practitioner Family; PCP Internal Medicine; Visit Provider Internal Medicine
DX: A41.9 Sepsis, unspecified organism (principal); L89.623 Pressure ulcer of left heel, stage 3; M86.9 Osteomyelitis, unspecified; T83.511A Infection and inflammatory reaction due to indwelling urethral catheter, initial encounter; N39.0 Urinary tract infection, site not specified; G93.40 Encephalopathy, unspecified; I50.32 Chronic diastolic (congestive) heart failure; Z68.41 Body mass index [BMI] 40.0-44.9, adult; I48.21 Permanent atrial fibrillation; R65.20 Severe sepsis without septic shock; B95.1 Streptococcus, group B, as the cause of diseases classified elsewhere; E11.69 Type 2 diabetes mellitus with other specified complication; E11.621 Type 2 diabetes mellitus with foot ulcer; L89.616 Pressure-induced deep tissue damage of right heel; L89.159 Pressure ulcer of sacral region, unspecified stage; L97.529 Non-pressure chronic ulcer of other part of left foot with unspecified severity; B95.61 Methicillin susceptible Staphylococcus aureus infection as the cause of diseases classified elsewhere; E87.5 Hyperkalemia; E03.9 Hypothyroidism, unspecified; D64.9 Anemia, unspecified; J44.9 Chronic obstructive pulmonary disease, unspecified; I11.0 Hypertensive heart disease with heart failure; K21.9 Gastro-esophageal reflux disease without esophagitis; E78.5 Hyperlipidemia, unspecified; G47.33 Obstructive sleep apnea (adult) (pediatric); I87.2 Venous insufficiency (chronic) (peripheral); E11.42 Type 2 diabetes mellitus with diabetic polyneuropathy; Z11.52 Encounter for screening for COVID-19; E66.9 Obesity, unspecified; Z90.49 Acquired absence of other specified parts of digestive tract; Z87.891 Personal history of nicotine dependence; Z79.01 Long term (current) use of anticoagulants
CPT/HCPCS: 36415; 70450; 71045; 72125; 73650; 73718; 80048; 80053; 80202; 81001; 82565; 82948; 83605; 83735; 84132; 84484; 85025; 85027; 85610; 85652; 85730; 86140; 87040; 87070; 87077; 87086; 87088; 87181; 87186; 87205; 87635; 93005; 96374; 96375; 97110; 97161; 97166; 97530; 97535; 99285; A9270; J0692; J0696; J1815; J1836; J2185; J2270; J2405; J3370; J7030

== ENCOUNTER 2023-09-03 08:35 | Emergency (ER) | payer MEDICARE, MEDICAID, SELFPAY ==
[2023-09-03 08:29] VITALS: BP 157/113; PULSE 85; RESP 16; TEMP 36.6; O2SAT 100
[2023-09-03 09:00] VITALS: BP 124/77; PULSE 70; RESP 16; O2SAT 96
--- NOTE | 2023-09-03 09:09 | ED.GENADULT ---
HPI - General Adult General Chief complaint: Abdominal Pain Stated complaint: ABD PAIN Time Seen by Provider: 09/03/23 08:47 History of Present Illness HPI narrative: patient is a 68-year-old gentleman who presents emergency department with chief complaint of abdominal discomfort. Patient noticed that his abdomen feels distended and noticed that his Coats catheter was not draining. Patient denies other complaints Related Data Home Medications Medication Instructions Recorded Confirmed gabapentin 300 mg capsule 300 mg PO 05,11,,02/15/21 08/07/23 ipratropium 0.5 mg-albuterol 3 mg 3 ml inhalation Q4H PRN Wheezing 02/15/21 08/07/23 (2.5 mg base)/3 mL nebulization soln levothyroxine 100 mcg tablet 100 mcg PO DAILY 02/15/21 08/07/23 pravastatin 40 mg tablet 40 mg PO HS 12/08/21 08/07/23 multivitamin with minerals-folic 1 tablet PO DAILY 03/02/22 08/07/23 acid 0.4 mg tablet acetaminophen 325 mg capsule 650 mg PO Q4-6H PRN Pain, Mild 09/10/22 08/07/23 (Tylenol) sennosides 8.6 mg-docusate sodium 1 tablet PO BID 09/10/22 08/07/23 50 mg tablet (Senna Plus) melatonin 5 mg tablet 5 mg PO HS 03/10/23 08/07/23 famotidine 20 mg tablet 20 mg PO DAILY 08/07/23 08/07/23 hydrocodone 5 mg-acetaminophen 325 1 tablet PO Q8H PRN Pain 08/07/23 08/07/23 mg tablet insulin NPH-regular 70-30 U-100 15 unit subcut HS 08/07/23 08/07/23 insulin 100 unit/mL subcutaneous pen (Novolin 70-30 FlexPen U-100 Insulin) insulin NPH-regular 70-30 U-100 25 unit subcut QA 08/07/23 08/07/23 insulin 100 unit/mL subcutaneous pen (Novolin 70-30 FlexPen U-100 Insulin) magnesium oxide 400 mg (241.3 mg 400 mg PO 1200 08/07/23 08/07/23 magnesium) tablet Allergies Allergy/AdvReac Type Severity Reaction Status Date / Time No Known Allergies Allergy Verified 09/03/23 09:07 Review of Systems Review of Systems: A 10 system review of systems was completed on the patient and is negative except for what is stated in the HPI. Nursing and ancillary documentation was reviewed. [facility] Past Medical History Medical History A-fib Acute on chronic anemia Choledocholithiasis (05/2022) Chronic obstructive pulmonary disease Chronic venous insufficiency Depression Diastolic congestive heart failure Gastroesophageal reflux disease Hyperlipidemia Hypertension Hypothyroidism Insulin dependent diabetes mellitus Kidney stones Obstructive sleep apnea Non-compliant with CPAP. Occult blood in stools Paroxysmal atrial fibrillation Peripheral neuropathy Surgical History Surgical History History of appendectomy History of back surgery History of cataract extraction History of hemorrhoidectomy History of tonsillectomy and adenoidectomy Family History Family History Sibling Family history of obesity Hypertension Family history of diabetes mellitus in first degree relative Family history of heart disease in male family member before age 55 Patient's sister is in good health Patient's brother is Mother Family history of arthritis Family history of malignant neoplasm Patient's mother is Father Patient's father is Other Malignant neoplasm of prostate Social History Social History Social History: Surrogate medical decision maker: Marlys Marrero, . Code status: Full code. Smoking packs per day: 1.5 Smoking cigarettes per day: 30.0 Years smoked: 15 Smoking pack-years: 22.50 Smoking status: Former smoker Tobacco type: cigarettes Second hand tobacco smoke exposure: Yes Alcohol intake: unknown Substance use: unknown Substance use type: unknown Lack of Transportation: No Lack of Food: Never
[2023-09-03 09:17] LABS: Basophils Absolute Auto 0.1 K/mm3 (0.0-0.1); Basophils Percent Auto 0.5 % (0.2-1.2); Eosinophils Absolute Auto 0.4 K/mm3 (0-0.3); Eosinophils Percent Auto 4.6 % (0-4.4); Hematocrit 42.8 % (42.0-52.0); Hemoglobin 13.4 g/dL (14.0-18.0); Immature Granulocyte Absolute 0.04 K/mm3 (0.00-0.031); Immature Granulocyte Percent A 0.4 % (0-0.5); Lymphocytes Absolute Auto 0.92 K/mm3 (0.9-3.2); Lymphocytes Percent Auto 9.6 % (18.3-44.2); Mean Corpuscular HGB Conc 31.3 g/dl (32-36); Mean Corpuscular Hemoglobin 26.5 pg (26-34); Mean Corpuscular Volume 84.8 fl (80-100); Mean Platelet Volume 9.7 fl (7.4-10.4); Monocytes Absolute Auto 0.8 K/mm3 (0.1-0.6); Monocytes Percent Auto 8.6 % (2.6-8.5); Neutrophils Absolute Auto 7.3 K/mm3 (1.3-6.7); Neutrophils Percent Auto 76.3 % (45.5-73.1); Platelet Count Result 258 k/mm3 (150-375); Red Blood Count 5.05 M/mm3 (4.6-6.20); Red Cell Distribution Width 15.5 % (11.5-14.5); White Blood Count 9.5 K/mm3 (4.5-10.0)
[2023-09-03 09:26] LABS: Lactic Acid Reflex 1.7 mmol/L (0.7-2.0)
[2023-09-03 09:27] LABS: Alanine Aminotransferase 15 U/L (6-50); Albumin Level 3.8 g/dL (3.5-5.1); Alkaline Phosphatase 96 U/L (38-126); Anion Gap 7 mmol/L (4-12); Appearance Urine Turbid (Clear); Aspartate Amino Transferase 26 U/L (17-59); Bacteria Urine None Seen /hpf; Bilirubin Urine Negative (Negative); Bilirubin,Total 0.5 mg/dL (0.2-1.3); Blood Urea Nitrogen 24 mg/dL (9-20); Blood Urine 3+ (Negative); Carbon Dioxide 21 mmol/L (22-30); Chloride 104 mmol/L (98-107); Color Urine Yellow (Yellow); Estimated Glomerular Filt Rate > 60; Glucose 239 mg/dL (65-110); Glucose Urine UA 2+ mg/dL (Negative); Ketones Urine Negative (Negative); Leukocyte Esterase Ur 2+ LEU/UL (Negative); Need Manual Microscopic Need Manual; Nitrate Urine Negative (Negative); Non Pathogenic Casts 0-2; Protein Urine 2+ mg/dL (Negative); Sodium 132 mmol/L (137-145); Specific Grav Ur 1.013 (1.001-1.035); Squamous Epithelial Cell Urine Occasional /hpf (Few); Urobilinogen Urine 0.2 mg/dL (<2.0); WBC Urine >100 /hpf (0-3); pH Urine 5.5 (5.0-9.0)
[2023-09-03 09:38] LABS: Budding Yeast Urine Present /hpf
[2023-09-03 09:39] LABS: Add Urine Microscopic? YES
[2023-09-03 10:00] VITALS: BP 134/83; PULSE 77; RESP 16; O2SAT 96
[2023-09-03] MEDS: FLUCONAZOLE 100 MG TABLET 200 MG PO (10:33)
[2023-09-03] MEDS: GENTAMICIN SULFATE INJ 460 MG in DEXTROSE 5% 100 ML 100 MG IVPB (10:33)
[2023-09-03 10:45] VITALS: BP 130/88; PULSE 77; RESP 16; O2SAT 97
== END 2023-09-03 13:41 ==
PROVIDERS: Emergency Provider Emergency Medicine; PCP Internal Medicine
DX: N39.0 Urinary tract infection, site not specified (principal); R33.9 Retention of urine, unspecified; I48.0 Paroxysmal atrial fibrillation; I87.2 Venous insufficiency (chronic) (peripheral); I50.30 Unspecified diastolic (congestive) heart failure; I11.0 Hypertensive heart disease with heart failure; J44.9 Chronic obstructive pulmonary disease, unspecified; E11.42 Type 2 diabetes mellitus with diabetic polyneuropathy; E78.5 Hyperlipidemia, unspecified; D64.9 Anemia, unspecified; G47.33 Obstructive sleep apnea (adult) (pediatric); K21.9 Gastro-esophageal reflux disease without esophagitis; Z87.891 Personal history of nicotine dependence; Z87.442 Personal history of urinary calculi; Z98.49 Cataract extraction status, unspecified eye; Z79.899 Other long term (current) drug therapy; Z79.4 Long term (current) use of insulin
CPT/HCPCS: 36415; 51702; 80053; 81001; 83605; 85025; 87086; 87088; 87106; 96365; 99284; A9270; J1580

== ENCOUNTER 2023-10-26 12:02 | Inpatient (IN) | payer MEDICARE, MEDICAID, SELFPAY ==
[2023-10-26] VITALS (8 sets, daily range): BP systolic 101–163; BP diastolic 61–96; PULSE 94–123; RESP 16–22; TEMP 36.4–37.3; O2SAT 92–99; BMI 42.7
--- NOTE | ~2023-10-26 | XR_ITS ---
Right foot Technique: AP, oblique, and lateral views were obtained. Clinical History: Lateral malleolus fracture Findings: No acute fracture or dislocation is seen. Generalized osteopenia noted. Osseous alignment i s anatomic. Joint spaces are preserved without erosive or degenerative change. Soft tissues are unrem arkable. Impression: No fracture or dislocation. Generalized osteopenia. Reviewed, dictated and finalized at location . Impression: No fracture or dislocation. Generalized osteopenia.
--- NOTE | ~2023-10-26 | XR_ITS ---
AP and lateral views of the left tibia/fibula Clinical History: Lateral malleolus fracture Findings: No acute fracture or dislocation is seen. Tibial intramedullary darin noted. There is general ized osteopenia. Osseous alignment is anatomic. Joint spaces are preserved without significant erosiv e or degenerative change. Soft tissues are unremarkable. Impression: No acute fracture or dislocation. Tibial intramedullary darin. Generalized osteopenia. Reviewed, dictated and finalized at location . Impression: No acute fracture or dislocation. Tibial intramedullary darin. Generalized osteopenia.
--- NOTE | ~2023-10-26 | CT_ITS ---
EXAMINATION: CT LE LT w con DATE: 10/27/2023 09:25 INDICATION: Left ankle swelling and infected pressure. TECHNIQUE: High resolution computed tomography (CT) of the left ankle was performed with 100 mL Omnip aque-350 intravenous contrast. Additional sagittal and coronal reconstructions were performed. Automa anthony exposure control and iterative reconstruction technique were employed. The dose-length product wa s 746.75 mGy-cm. COMPARISON: MRI dated 08/13/2023 radiographs dated and 06/23/2023. FINDINGS: Again seen is an antegrade intramedullary darin fixation spanning and old healed oblique fracture of th e distal left tibial diaphysis/metadiaphysis. Age-indeterminate but likely relatively recent nondispl aced oblique fracture of the distal left fibula which exits the medial cortex of the tibiotalar joint line which is new since the MRI was prior. Also new since the MRI the second nondisplaced likely ant erior inferior tibiofibular ligament avulsion fracture small portion of the anterolateral aspect of t he distal tibia. Chronic osteolysis involving the plantar/lateral margin of the posterior tuberosity of the calcaneus underlying a deep ulceration with loss of the plantar fat pad. This corresponding to the region of in creased T2 and decreased T1 signal on the prior MRI consistent with osteomyelitis. The contour of the region of the prior MRI radiographs. The margin of bone in this region however remains irregular wit hout a clearly defined linear cortication and could not exclude ongoing osteomyelitis. There is skin thickening and subcutaneous stranding overlying the dorsum of the foot which could be seen with cellu litis. No abscess. Mild to moderate severity particular osteoarthritis at the left ankle and multiple joints in the mid and hindfoot. There is extensive severe fatty atrophy of the musculature of the visualized distal lef t calf of the intrinsic musculature of the left foot. Three-vessel runoff of arterial contrast below the right ankle. IMPRESSION: 1. Osteolysis with absent cortication along the plantar/lateral margin of the posterior tuberosity of the calcaneus underlying a deep ulceration and consistent with osteomyelitis as seen on prior MRI. N o evident progression in the amount of osteolysis since the prior studies. 2. Acute to subacute fractures of the lateral malleolus and of the anterolateral aspect of the tibial plafond involving the footplate of the anterior-inferior tibiofibular ligament which is new since th e MRI on 08/13/2023. Correlate for interval ankle trauma. 3. Severe fatty atrophy of the musculature of the left foot and visualized distal left calf. 4. Mild to moderate polyarticular osteoarthritis at the left ankle, mid and hindfoot. 5. Partially visualized antegrade intramedullary darin fixation spanning an old healed fracture the dis garland left tibial diaphysis/metadiaphysis. Reviewed, dictated and finalized at location A. IMPRESSION: 1. Osteolysis with absent cortication along the plantar/lateral margin of the p osterior tuberosity of the calcaneus underlying a deep ulceration and consisten t with osteomyelitis as seen on prior MRI. No evident progression in the amount of osteolysis since the prior studies. 2. Acute to subacute fractures of the lateral malleolus and of the anterolatera l aspect of the tibial plafond involving the footplate of the anterior-inferior tibiofibular ligament which is new since the MRI on 08/13/2023. Correlate for i nterval ankle trauma. 3. Severe fatty atrophy of the musculature of the left foot and visualized dist al left calf. 4. Mild to moderate polyarticular osteoarthritis at the left ankle, mid and hin dfoot. 5. Partially visualized antegrade intramedullary darin fixation spanning an old h ealed fracture the distal left tibial di
--- NOTE | ~2023-10-26 | XR_ITS ---
Left foot Technique: AP, oblique, and lateral views were obtained. Clinical History: Lateral malleolus fracture. Findings: No acute fracture or dislocation is seen. Tibial intramedullary darin partially imaged. There is generalized osteopenia. Osseous alignment is anatomic. Joint spaces are preserved without erosive or degenerative change. Soft tissues are unremarkable. Impression: No acute fracture seen. Generalized osteopenia. Reviewed, dictated and finalized at location . Impression: No acute fracture seen. Generalized osteopenia.
--- NOTE | ~2023-10-26 | XR_ITS ---
Right ankle Technique: AP, oblique, and lateral views were obtained. Clinical History: Lateral malleolus fracture Findings: No acute fracture or dislocation is seen. Generalized osteopenia noted. Osseous alignment i s anatomic. Ankle mortise and other visualized joint spaces are preserved. Soft tissues are otherwis e unremarkable. Impression: No fracture or dislocation seen. Generalized osteopenia. Reviewed, dictated and finalized at location . Impression: No fracture or dislocation seen. Generalized osteopenia.
--- NOTE | ~2023-10-26 | XR_ITS ---
AP and lateral views of the right tibia/fibula Clinical History: Lateral malleolus fracture Findings: No acute fracture or dislocation is seen. Generalized osteopenia noted. Osseous alignment i s anatomic. Joint spaces are preserved without significant erosive or degenerative change. Soft tissu es are unremarkable. Impression: No fracture or dislocation seen. Generalized osteopenia. Reviewed, dictated and finalized at location . Impression: No fracture or dislocation seen. Generalized osteopenia.
--- NOTE | ~2023-10-26 | XR_ITS ---
Left ankle Technique: AP, oblique, and lateral views were obtained. Clinical History: Lateral malleolus fracture Findings: No acute fracture or dislocation is seen. Tibial intramedullary darin noted. There is general ized osteopenia. Osseous alignment is anatomic. Ankle mortise and other visualized joint spaces are p reserved. Soft tissues are otherwise unremarkable. Impression: No acute fracture or dislocation. Tibial intramedullary darin. Generalized osteopenia. Reviewed, dictated and finalized at location . Impression: No acute fracture or dislocation. Tibial intramedullary darin. Generalized osteopenia.
--- NOTE | ~2023-10-26 | CT_ITS ---
CT head without contrast Indication: Altered mental status COMPARISON: 08/07/2023 Technique: Serial scans were obtained through the brain without the administration of contrast. Dose reduction technique was used on this scan by utilizing automated exposure control and iterative recon struction technique. The dose-length product (DLP) was 1210.67 mGy-cm. Findings: There is no evidence of intracranial hemorrhage, mass lesion, or acute infarct. The ventri cles and subarachnoid spaces are dilated, consistent with mild to moderate atrophy. Low attenuation regions are seen within the periventricular white matter bilaterally, likely representing changes fro m chronic microvascular ischemic disease. There is no evidence of edema, mass effect or midline shif t. The visualized paranasal sinuses and mastoid air cells are clear. Impression: No intracranial hemorrhage, mass, or acute infarct. Atrophy and chronic white matter changes, as above. Reviewed, dictated and finalized at location . Impression: No intracranial hemorrhage, mass, or acute infarct. Atrophy and chronic white matter changes, as above.
--- NOTE | ~2023-10-26 | XR_ITS ---
EXAMINATION: XR chest 1V portable DATE: 10/26/2023 14:28 INDICATION: Cough. Altered mental status. TECHNIQUE: frontal view of the chest was obtained. COMPARISON: Chest radiograph dated 08/27/23 FINDINGS: Pulmonary vascular congestion and diffuse mild increased interstitial pattern throughout both lungs. No pleural effusion or pneumothorax. Mild cardiomegaly. IMPRESSION: 1. Pulmonary vascular congestion with mild diffuse increased interstitial pattern throughout both evon gs which could represent mild pulmonary edema or pneumonia. 2. Cardiomegaly. Reviewed, dictated and finalized at location A. IMPRESSION: 1. Pulmonary vascular congestion with mild diffuse increased interstitial patte rn throughout both lungs which could represent mild pulmonary edema or pneumoni a. 2. Cardiomegaly.
--- NOTE | 2023-10-26 12:27 | PC.NURSE ---
blood sugar 286 at this time
[2023-10-26 12:29] LABS: Glucose Point of Care 286 mg/dl (65-105)
[2023-10-26 12:53] LABS: Basophils Absolute Auto 0.1 K/mm3 (0.0-0.1); Basophils Percent Auto 0.6 % (0.2-1.2); Eosinophils Absolute Auto 0.1 K/mm3 (0-0.3); Eosinophils Percent Auto 1.6 % (0-4.4); Hematocrit 46.2 % (42.0-52.0); Hemoglobin 13.7 g/dL (14.0-18.0); Immature Granulocyte Absolute 0.04 K/mm3 (0.00-0.031); Immature Granulocyte Percent A 0.4 % (0-0.5); Lymphocytes Absolute Auto 0.83 K/mm3 (0.9-3.2); Lymphocytes Percent Auto 9.2 % (18.3-44.2); Mean Corpuscular HGB Conc 29.7 g/dl (32-36); Mean Corpuscular Hemoglobin 25.4 pg (26-34); Mean Corpuscular Volume 85.6 fl (80-100); Mean Platelet Volume 10.3 fl (7.4-10.4); Monocytes Absolute Auto 0.7 K/mm3 (0.1-0.6); Monocytes Percent Auto 7.9 % (2.6-8.5); Neutrophils Absolute Auto 7.3 K/mm3 (1.3-6.7); Neutrophils Percent Auto 80.3 % (45.5-73.1); Platelet Count Result 259 k/mm3 (150-375); Red Cell Distribution Width 15.9 % (11.5-14.5)
[2023-10-26] MEDS: MIDAZOLAM HCL (*CRX) 2 MG/2 ML VIAL IV PUSH (13:04)
[2023-10-26 13:07] LABS: Alanine Aminotransferase 11 U/L (6-50); Albumin Level 3.8 g/dL (3.5-5.1); Alkaline Phosphatase 90 U/L (38-126); Anion Gap 9 mmol/L (4-12); Aspartate Amino Transferase 24 U/L (17-59); Bilirubin,Total 0.8 mg/dL (0.2-1.3); Blood Urea Nitrogen 23 mg/dL (9-20); Calcium 9.9 mg/dL (8.4-10.2); Carbon Dioxide 27 mmol/L (22-30); Chloride 95 mmol/L (98-107); Estimated Glomerular Filt Rate > 60; Glucose 273 mg/dL (65-110); Sodium 131 mmol/L (137-145)
[2023-10-26 13:08] LABS: INR 1.4; Prothrombin Time 17.2 Seconds (11.1-14.7)
[2023-10-26 13:14] LABS: Anisocytosis 1+; Hypochromasia 1+; Platelet Estimate Adequate (Adequate)
[2023-10-26 13:15] LABS: Schistocytes None Seen
[2023-10-26 13:16] LABS: Troponin I 0.017 ng/mL (0.000-0.034)
[2023-10-26 15:06] LABS: Add Urine Microscopic? YES; Appearance Urine Turbid (Clear); Bacteria Urine 4+ /hpf; Bilirubin Urine Negative (Negative); Blood Urine 3+ (Negative); Budding Yeast Urine Present /hpf; Color Urine Yellow (Yellow); Glucose Urine UA Trace mg/dL (Negative); Ketones Urine Negative (Negative); Leukocyte Esterase Ur 3+ LEU/UL (Negative); Need Manual Microscopic Reviewed; Nitrate Urine Negative (Negative); Protein Urine 3+ mg/dL (Negative); RBC Urine >100 /hpf (0-2); Specific Grav Ur 1.016 (1.001-1.035); Squamous Epithelial Cell Urine None Seen /hpf (Few); WBC Clumps Urine Present /HPF; WBC Urine >100 /hpf (0-3); pH Urine 6.5 (5.0-9.0)
[2023-10-26 15:18] LABS: NT Pro B Type Natriuretic Pept 1980 pg/mL (19.9-100)
[2023-10-26] MEDS: ONDANSETRON INJ 4 MG/2 ML VIAL IV PUSH (16:03)
[2023-10-26] MEDS: MORPHINE SULFATE (*CRX) 4 MG/ML INJ IV PUSH (16:03)
--- NOTE | 2023-10-26 16:12 | PM.IMHP ---
H&P: HPI History of Present Illness Date/Time: 10/26/23 16:12 Chief Complaint: Altered mental status Narrative: This is a 68-year-old male with a significant past medical history of AFib, anemia, COPD, chronic venous insufficiency, depression, diastolic congestive heart failure, GERD, hyperlipidemia, hypertension, hypothyroidism, insulin-dependent diabetes mellitus, JUN, peripheral neuropathy, former smoker who presented to the hospital from his nursing facility for evaluation of altered mental status. According to the nursing staff he is normally alert and oriented x3 however today he was alert and only answered 1 or 2 questions before falling back asleep. Most of history of presenting illness was obtained from the EMR considering patient has altered mental status. Workup in the hospital included a head CT which was negative for any acute intracranial changes, showed atrophy and chronic white matter changes. Chest x-ray showed pulmonary vascular congestion with mild diffuse increased interstitial pattern throughout both lungs representing mild pulmonary edema versus pneumonia, cardiomegaly. Initial labs shown a normal white blood cell count of 9.0, hemoglobin 13.7, INR 1.4, sodium 131, chloride 95, blood sugars ranging 228-286, liver enzymes were normal, troponin was negative, proBNP 1980. UA was obtained and showed turbid appearance, 3+ urine protein, trace urine glucose, 3+ urine blood, 3+ leukocyte, greater than 100 urine RBC, greater than 100 urine WBC, 4+ bacteria, yeast was present. Blood and urine cultures were obtained and are pending. Patient was given a dose of Zofran, morphine, and Rocephin while in the ED. Upon my assessment, he was found to have bilateral lower extremity dressings with Kerlix and Coban from the knee down to both feet. Dressings were removed and revealed what looks to be like venous stasis ulcers with a pressure wound to the left heel that is oozing pus and has a foul odor. Review of Systems Review of Systems: ROS unobtainable: Yes unobtainable due to mental status PMFSH Past Medical History Medical History A-fib Acute on chronic anemia Choledocholithiasis (05/2022) Chronic obstructive pulmonary disease Chronic venous insufficiency Depression Diastolic congestive heart failure Gastroesophageal reflux disease Hyperlipidemia Hypertension Hypothyroidism Insulin dependent diabetes mellitus Kidney stones Obstructive sleep apnea Non-compliant with CPAP. Occult blood in stools Paroxysmal atrial fibrillation Peripheral neuropathy Surgical History Surgical History History of appendectomy History of back surgery History of cataract extraction History of hemorrhoidectomy History of tonsillectomy and adenoidectomy Family History Family History Sibling Family history of obesity Hypertension Family history of diabetes mellitus in first degree relative Family history of heart disease in male family member before age 55 Patient's sister is in good health Patient's brother is Mother Family history of arthritis Family history of malignant neoplasm Patient's mother is Father Patient's father is Other Malignant neoplasm of prostate Social History Social History Social History: Surrogate medical decision maker: Marlys Marrero, . Code status: Full code. Smoking packs per day: 1.5 Smoking cigarettes per day: 30.0 Years smoked: 15 Smoking pack-years: 22.50 Smoking status: Former smoker Tobacco type: cigarettes Second hand tobacco smoke exposure: Yes Alcohol intake: never Substance use: never Substance use type: unknown Lack of Transportation: No Lack of Food: Never True Current Housing: [facility]
--- NOTE | 2023-10-26 16:51 | ED.AMS ---
HPI - Altered Mental Status General Chief Complaint: Altered Mental Status Stated Complaint: AMS Time Seen by Provider: 10/26/23 12:09 Source: family and EMS Mode of arrival: EMS Limitations: altered mental status History of Present Illness HPI narrative: 68-year-old [facility] resident with a history of COPD hypertension diabetes, AFib had CKD stage IIIB GERD he he was brought in from her [facility] with altered mental status. As per the AMS patient has been confused since this morning he is A&O x3 his this morning he chest alert and not answering to any questions. patient upon arrival is alert answers only 1 or 2 questions. He but he denies any chest pain or shortness of breath. MD complaint: altered mental status Severity: moderate Related Data Home Medications Medication Instructions Recorded Confirmed gabapentin 300 mg capsule 300 mg PO ,,,02/15/21 08/07/23 ipratropium 0.5 mg-albuterol 3 mg 3 ml inhalation Q4H PRN Wheezing 02/15/21 08/07/23 (2.5 mg base)/3 mL nebulization soln levothyroxine 100 mcg tablet 100 mcg PO DAILY 02/15/21 08/07/23 pravastatin 40 mg tablet 40 mg PO HS 12/08/21 08/07/23 multivitamin with minerals-folic 1 tablet PO DAILY 03/02/22 08/07/23 acid 0.4 mg tablet acetaminophen 325 mg capsule 650 mg PO Q4-6H PRN Pain, Mild 09/10/22 08/07/23 (Tylenol) sennosides 8.6 mg-docusate sodium 1 tablet PO BID 09/10/22 08/07/23 50 mg tablet (Senna Plus) melatonin 5 mg tablet 5 mg PO HS 03/10/23 08/07/23 famotidine 20 mg tablet 20 mg PO DAILY 08/07/23 08/07/23 hydrocodone 5 mg-acetaminophen 325 1 tablet PO Q8H PRN Pain 08/07/23 08/07/23 mg tablet insulin NPH-regular 70-30 U-100 15 unit subcut HS 08/07/23 08/07/23 insulin 100 unit/mL subcutaneous pen (Novolin 70-30 FlexPen U-100 Insulin) insulin NPH-regular 70-30 U-100 25 unit subcut [facility] 08/07/23 08/07/23 insulin 100 unit/mL subcutaneous pen (Novolin 70-30 FlexPen U-100 Insulin) magnesium oxide 400 mg (241.3 mg 400 mg PO 1200 08/07/23 08/07/23 magnesium) tablet Allergies Allergy/AdvReac Type Severity Reaction Status Date / Time No Known Allergies Allergy Verified 09/03/23 09:07 Review of Systems Review of Systems: ROS unobtainable: Yes unobtainable due to mental status PMFSH Past Medical History Medical History A-fib Acute on chronic anemia Choledocholithiasis (05/2022) Chronic obstructive pulmonary disease Chronic venous insufficiency Depression Diastolic congestive heart failure Gastroesophageal reflux disease Hyperlipidemia Hypertension Hypothyroidism Insulin dependent diabetes mellitus Kidney stones Obstructive sleep apnea Non-compliant with CPAP. Occult blood in stools Paroxysmal atrial fibrillation Peripheral neuropathy Surgical History Surgical History History of appendectomy History of back surgery History of cataract extraction History of hemorrhoidectomy History of tonsillectomy and adenoidectomy Family History Family History Sibling Family history of obesity Hypertension Family history of diabetes mellitus in first degree relative Family history of heart disease in male family member before age 55 Patient's sister is in good health Patient's brother is Mother Family history of arthritis Family history of malignant neoplasm Patient's mother is Father Patient's father is Other Malignant neoplasm of prostate Social History Social History Social History: Surrogate medical decision maker: Marlys Marrero, . Code status: Full code. Smoking packs per day: 1.5 Smoking cigarettes per day: 30.0 Years smoked: 15 Smoking pack-years: 22.50 Smoking status: Former smoker Tobacco type: cigaret
[2023-10-26 17:11] LABS: Glucose Point of Care 228 mg/dl (65-105)
--- NOTE | 2023-10-26 17:11 | PC.NURSE ---
blood sugar 228 at this time
[2023-10-26] MEDS: SODIUM CHLORIDE 0.9% IV 1,000 ML 125 ML IV CONT (17:24)
[2023-10-26] MEDS: INSULIN ASPART (*BKC) 100 UNITS/ML SUB-Q (17:25)
--- NOTE | 2023-10-26 19:22 | ADMGEN ---
This patient, Taye Marrero Jr., was admitted to 2 Medical Room 241-01 @ 1840 . Patient/family oriented to hospital policies and general routines including ID bracelet, bed and alarms, visiting hours, pain management, procedures, bathroom and other care routines, personal items, smoking policy, room service/diet, and visiting hours. Information on how to activate the Rapid Response Team has been discussed. Patient/Family are encouraged to report perceived risks to care and to ask questions if they do not understand what they are told or what they should do.
--- NOTE | 2023-10-26 19:27 | PC.NURSE ---
Patient to room 241 at 1840, unsure if 1759 stat Lovenox was given in ED prior to being brought to floor, no documentation made in APR. ED nurse to call back extension [phone] with whether or not Lovenox was given
[2023-10-26] MEDS: ENOXAPARIN 40 MG/0.4 ML SYRINGE SUB-Q (19:37)
--- NOTE | 2023-10-26 20:17 | ADMGEN ---
This patient, Taye Marrero Jr., was admitted to Medical Room 241-. Patient/family oriented to hospital policies and general routines including ID bracelet, bed and alarms, visiting hours, pain management, procedures, bathroom and other care routines, personal items, smoking policy, room service/diet, and visiting hours. Information on how to activate the Rapid Response Team has been discussed. Patient/Family are encouraged to report perceived risks to care and to ask questions if they do not understand what they are told or what they should do.
[2023-10-26] MEDS: metroNIDAZOLE 500 MG/ISO 100ML 500 MG/100 ML BAG 100 MG IVPB (21:32)
[2023-10-26] MEDS: APIXABAN 5 MG TABLET PO (21:34)
[2023-10-26] MEDS: PRAVASTATIN SODIUM 20 MG TABLET 40 MG PO (21:34)
[2023-10-26] MEDS: VANCOMYCIN 1,250 MG/NS 250 ML 1,250 MG/250 ML BAG 166.67 MG IVPB ×2 (21:42→22:30)
[2023-10-26 22:01] LABS: CRP 4.7 mg/dL (<1.0)
[2023-10-26 22:12] LABS: Erythrocyte Sedimentation Rate 57 mm/hr (0-20)
[2023-10-26 22:35] LABS: Procalcitonin 0.4 ng/mL
[2023-10-26 23:54] LABS: MRSA (PCR) NOT DETECTED (NOT DETECTE)
[2023-10-26 23:56] LABS: Glucose Point of Care 142 mg/dl (65-105)
[2023-10-27] VITALS (8 sets, daily range): BP systolic 110–128; BP diastolic 51–88; PULSE 62–75; RESP 16–18; TEMP 36.1–36.5; O2SAT 95–96; BMI 42.7
--- NOTE | 2023-10-27 | ECHO_ITS ---
Patient Info Name: Taye Marrero Age: 68 years : 1955 Gender: Male Ht: 68 in Wt: 281 lbs BSA: 2.54 m2 HR: 72 bpm BP: 122 / 58 mmHg Heart Rhythm: Sinus Rhythm Technical Quality: Fair Exam Date: 10/27/2023 2:04 PM Exam Location: Echo Lab Patient Status: Inpatient Admit Date: 10/26/2023 Staff Ordering Physician: Toy Ba MD Senior Cyber Security Analyst: Mavis Lim RDCS Attending Provider: Paul Rosado MD Exam Type: CA echo dop color flow w con Study Info Indications - chf Complete two-dimensional, color flow and Doppler transthoracic echocardiogram is performed with contrast to opacify the left ventricle and to improve the deliniation of the left ventricle endocardial borders. Contrast/Agitated Saline Contrast/Ag. Saline: Definity Amount: 3.00 ml Administered By: Mavis Lim RDCS Existing IV Access: Yes IV Access Condition: patent with no signs of infiltration Summary 1. Technically difficult study with limited views. 2. Left ventricular chamber dimension is normal. 3. Left ventricular systolic function is normal, estimated at 65-70%. 4. There is moderately increased left ventricular wall thickness. 5. Right ventricular systolic function is normal. 6. Left atrial chamber dimension is severely enlarged. 7. Right atrial chamber dimension is severely enlarged. 8. No significant valvular disease. Left Ventricle Left ventricular chamber dimension is normal. Left ventricular systolic function is normal, estimated at 65-70%. There is moderately increased left ventricular wall thickness. The left ventricular diastolic function is indeterminate. Right Ventricle Right ventricular chamber dimension is normal. Right ventricular systolic function is normal. Left Atria Left atrial chamber dimension is severely enlarged. Right Atria Right atrial chamber dimension is severely enlarged. Atrial Septum Intact interatrial septum visualized by color flow imaging. Aortic Valve The aortic valve is probable trileaflet. There is no aortic valve regurgitation. Pulmonic Valve The pulmonic valve is not well visualized. There is no pulmonic regurgitation. Mitral Valve There is trace mitral valve regurgitation. The mitral valve annulus is mildly calcified. Tricuspid Valve There is trace tricuspid valve regurgitation. Pericardium/Pleural There is no pericardial effusion. Inferior Vena Cava Dilated inferior vena cava with <50% collapse upon inspiration consistent with elevated right atrial pressure, 15 mmHg. Aorta The aortic root size at the sinus of Valsalva is normal. Left Ventricular Outflow Tract Name Value Normal LVOT 2D LVOT Diameter 1.95 cm LVOT Doppler LVOT Peak Gradient 2 mmHg LVOT Mean Gradient 1 mmHg LVOT VTI 17.29 cm LVOT VTI/AV VTI Ratio 0.69 LVOT Stroke Volume 51.38 ml LVOT CO 9.08 l/min LVOT CI 3.58 L/min/m2 Pulmonic Valve Name
[2023-10-27] MEDS: SODIUM CHLORIDE 0.9% IV 1,000 ML 125 ML IV CONT ×2 (04:36→17:24)
[2023-10-27] MEDS: metroNIDAZOLE 500 MG/ISO 100ML 500 MG/100 ML BAG 100 MG IVPB (05:54)
[2023-10-27] MEDS: LEVOTHYROXINE SODIUM 100 MCG TABLET PO (05:55)
[2023-10-27 06:08] LABS: Basophils Absolute Auto 0.1 K/mm3 (0.0-0.1); Basophils Percent Auto 0.7 % (0.2-1.2); Eosinophils Absolute Auto 0.3 K/mm3 (0-0.3); Eosinophils Percent Auto 4.6 % (0-4.4); Hematocrit 41.1 % (42.0-52.0); Immature Granulocyte Absolute 0.02 K/mm3 (0.00-0.031); Immature Granulocyte Percent A 0.3 % (0-0.5); Lymphocytes Percent Auto 20.7 % (18.3-44.2); Mean Corpuscular HGB Conc 29.2 g/dl (32-36); Mean Corpuscular Hemoglobin 25.3 pg (26-34); Mean Corpuscular Volume 86.5 fl (80-100); Mean Platelet Volume 10.1 fl (7.4-10.4); Monocytes Percent Auto 14.8 % (2.6-8.5); Neutrophils Percent Auto 58.9 % (45.5-73.1); Platelet Count Result 222 k/mm3 (150-375); Red Blood Count 4.75 M/mm3 (4.6-6.20); White Blood Count 6.8 K/mm3 (4.5-10.0)
[2023-10-27 06:21] LABS: Anion Gap 7 mmol/L (4-12); Blood Urea Nitrogen 30 mg/dL (9-20); Calcium 8.9 mg/dL (8.4-10.2); Carbon Dioxide 26 mmol/L (22-30); Chloride 101 mmol/L (98-107); Estimated CRCL calculation 90 ml/min; Estimated Glomerular Filt Rate > 60; Glucose 132 mg/dL (65-110); Potassium 4.3 mmol/L (3.4-5.0); Sodium 134 mmol/L (137-145)
[2023-10-27 07:01] LABS: Anisocytosis 1+; Hypochromasia 1+; Platelet Estimate Adequate (Adequate); Schistocytes None Seen
[2023-10-27] MEDS: METOPROLOL SUCCINATE EXT REL 25 MG TABCR 75 MG PO (08:25)
[2023-10-27] MEDS: polyethylene glycoL 3350 17 GM POWD.PACK PO ×2 (08:25→16:18)
[2023-10-27] MEDS: FAMOTIDINE 20 MG TABLET PO (08:25)
[2023-10-27] MEDS: VALSARTAN 20 MG TABLET PO (08:25)
[2023-10-27] MEDS: THERAPEUTIC MULTIVITAMINS/MINERALS TAB (*BKC) 1 TABLET PO (08:25)
[2023-10-27] MEDS: SENNA/DOCUSATE SODIUM TABLET 1 TAB PO ×2 (08:26→16:19)
[2023-10-27] MEDS: buPROPion HCL XL (24 HR) 150 MG TABCR PO (08:26)
[2023-10-27] MEDS: APIXABAN 5 MG TABLET PO ×2 (08:26→20:50)
[2023-10-27] MEDS: ASPIRIN 81 MG ENTERIC TABLET PO (08:26)
[2023-10-27 08:43] LABS: Glucose Point of Care 119 mg/dl (65-105)
[2023-10-27] MEDS: VANCOMYCIN 1,500 MG/NS 500 ML 1,500 MG/500 ML BAG 250 MG IVPB ×2 (10:03→22:04)
[2023-10-27] MEDS: BETAMETHASONE/CLOTRIMAZOLE CREAM 45 GM TUBE 1 APPLIC TOPICAL (10:04)
[2023-10-27] MEDS: HYDROcodone/acetaminophen (*CRX) 5-325 MG TABLET 1 TAB PO (11:34)
[2023-10-27 12:07] LABS: Glucose Point of Care 141 mg/dl (65-105)
--- NOTE | 2023-10-27 13:37 | PM.IMPN ---
Progress Note: A&P Assessment and Plan (1) Cellulitis: Code(s): L03.90 - Cellulitis, unspecified Status: Acute Assessment and Plan: 10/27/23: Left lower extremity warm, red, swollen with decubitus ulcer to left heel that is draining purulent drainage CT of the left lower extremity Wound nurse consult Continue IV vancomycin and changed from IV to oral Flagyl Added Rocephin Wound culture shows Gram-negative bacilli and Gram-positive cocci he Blood cultures preliminary shows negative (2) Diabetic foot infection: Code(s): E11.628 - Type 2 diabetes mellitus with other skin complications; L08.9 - Local infection of the skin and subcutaneous tissue, unspecified Status: Acute Assessment and Plan: See above plan of care (3) Acute UTI: Code(s): N39.0 - Urinary tract infection, site not specified Status: Acute Assessment and Plan: 10/27/23: UA showed turbid appearance, 3+ urine protein, trace urine glucose, 3+ urine blood, 3+ leukocytes, greater than 100 urine RBC, greater than 100 WBC, 4+ urine bacteria, yeast present Urine culture was obtained and is pending Continue Rocephin Patient has chronic Coats which was changed while in the ED (4) Altered mental status: Qualifiers: Altered mental status type: unspecified Qualified Code(s): R41.82 - Altered mental status, unspecified Code(s): R41.82 - Altered mental status, unspecified Status: Acute Assessment and Plan: 10/27/23: Head CT was negative Likely secondary to acute UTI versus cellulitis infection TSH normal Continue neuro checks (5) Gastroesophageal reflux disease: Code(s): K21.9 - Gastro-esophageal reflux disease without esophagitis Status: Chronic Assessment and Plan: 10/27/23: Continue Pepcid (6) Hypertension: Code(s): I10 - Essential (primary) hypertension Status: Chronic Assessment and Plan: 10/27/23: Blood pressure ranging 135/96 to 152/79 Continue valsartan and metoprolol 25 mg extended release (7) Hypothyroidism: Code(s): E03.9 - Hypothyroidism, unspecified Status: Chronic Assessment and Plan: 10/26/23: Continue Synthroid (8) Hyperlipidemia: Code(s): E78.5 - Hyperlipidemia, unspecified Status: Chronic Assessment and Plan: 10/27/23: Continue pravastatin Subjective Date/time seen: 10/27/23 13:37 Interval history: Patient is feeling well and oriented into time place. Nursing reports patient is oriented better than yesterday. Today placed an order for echo. TSH has been ordered and it shows normal . Patient wound culture shows Gram-positive cocci and Gram-negative bacilli. Still pending on the urine culture. Preliminary blood culture shows no growth. Patient has bilateral venous ulcer is managed by the wound care. Review of Systems Review of Systems: ROS unobtainable: Yes unobtainable due to mental status Exam Narrative: General: In no acute distress, well nourished Head: atraumatic, no encephalopathy Eyes: EOMI, PERRLA, sclera clear ENT: moist mucous membranes, nasal passages clear very hard of hearing Neck: supple, no JVD, no adenopathy, trachea midline Cardiac: Normal S1 and S2. No murmur, gallops or friction rubs, peripheral pulses intact. Respiratory: Lungs clear to auscultation, no adventitious lung sounds, currently on room air Gastrointestinal: soft, non-distended, non-tender, normoactive bowel sounds. : Coats catheter in place draining lynda colored urine Extremities: moves all extremities, 1 to 2+ pitting edema to bilateral lower extremity Skin: Venous stasis wounds to bilateral lower extremity, dry and flaky skin, swelling, warmth,erythema noted to left lower extremity. Open pressure ulcer to left heel draining purulent drainage with foul odor, right heel boggy and does not cameron-likely pressure injury. Neuro: Alert to voice, confused Psych: Unable to assess f
[2023-10-27] MEDS: metroNIDAZOLE 500 MG TABLET PO ×2 (13:43→20:50)
[2023-10-27] MEDS: cefTRIAXone 2 GM/NS 100 ML 2 GM/100 ML BAG IVPB (13:44)
[2023-10-27] MEDS: PERFLUTREN LIPID MICROSPHERES 1.5 ML VIAL DILUTED TO 10 ML TOTAL VOLUME IV PUSH (14:00)
--- NOTE | 2023-10-27 15:06 | IVDEFINITY ---
Prior to administration of IV Definity the patient was educated on the risks and benefits of the imaging enhancing agent including potential adverse side effects. The patient verbalized understanding. Allergies were verified. No exclusion criteria were identified and at least one of the following inclusion criteria were met: 1) physician request, 2) patient technically difficult to image (per the [place] [employer] guidelines of two or more segments not discernable within the apical view), or 3) questionable left ventricular function. ?
[2023-10-27 17:14] LABS: Glucose Point of Care 182 mg/dl (65-105)
[2023-10-27] MEDS: PRAVASTATIN SODIUM 20 MG TABLET 40 MG PO (20:50)
[2023-10-27 22:41] LABS: Glucose Point of Care 239 mg/dl (65-105)
[2023-10-28] VITALS (11 sets, daily range): BP systolic 138–148; BP diastolic 77–95; PULSE 55–92; RESP 18; TEMP 36.4–36.6; O2SAT 93–98
[2023-10-28] MEDS: HYDROcodone/acetaminophen (*CRX) 5-325 MG TABLET 1 TAB PO ×2 (02:36→12:19)
[2023-10-28] MEDS: LORazepam INJ (*CRX) 2 MG/ML VIAL 1 MG IV PUSH (03:54)
[2023-10-28] MEDS: MORPHINE SULFATE (*CRX) 2 MG/ML INJ 1 MG IV PUSH (04:02)
[2023-10-28] MEDS: SODIUM CHLORIDE 0.9% IV 1,000 ML 125 ML IV CONT ×3 (04:35→23:02)
[2023-10-28] MEDS: MORPHINE SULFATE (*CRX) 2 MG/ML INJ IV PUSH (04:35)
--- NOTE | 2023-10-28 04:41 | PC.NURSE ---
AROUND 0300 PT HEARD SCREAMING. ENTERED PT ROOM TO SEE BLOOD LEAKING FROM PT R NARES. PT HAD A SIGNIFICANT AMOUNT OF BLOOD ON HIS HANDS AND SHIRT. ATTEMPTED TO TRY TO STOP THE BLEEDING BUT WAS UNSUCCESSFUL. CALLED CHARGE NURSE CAITLIN INTO ROOM FOR ASSISTANCE. WE BOTH BEGAN TAKING TURNS TRYING TO GET THE BLEEDING TO STOP. NOSE CLAMP WAS SENT UP BUT DID NOT STOP BLEEDING ONCE APPLIED.SUCTIONED PT TO REMOVE BLOOD AND CLOTS FROM MOUTH. DR HAYS WAS CALLED BUT SHE WAS IN A CODE AT THE TIME. HOUSE SUP NOTIFIED AND RETRIEVED A RHINO ROCKET FROM ED TO HAVE AT BEDSIDE FOR DR. HAYS TO INSERT ONCE AVAILABLE. AT BEDSIDE DR HASY ORDERED ATIVAN TO HELP PT RELAX WHILE SHE PUT IN RHINO ROCKET AND MORPHINE FOR PAIN. PT WAS AGITATED AND NON COMPLIANT WITH PROCEDURE. IT TOOK A FEW TIMES TO FULLY INSERT THE RHINO ROCKET. AT NO TIME DID THE BLEEDING SLOW DOWN. PT VITALS STABLE AFTER INSERTION. TECH SITTING AT BEDSIDE TO MONITOR PT SO HE DOES NOT PULL OUT RHINO ROCKET. PT DOES HAVE A HISTORY OF TAKING BLOOD THINNERS DAILY.
[2023-10-28 05:29] LABS: Basophils Absolute Auto 0.1 K/mm3 (0.0-0.1); Basophils Percent Auto 0.8 % (0.2-1.2); Eosinophils Absolute Auto 0.4 K/mm3 (0-0.3); Hematocrit 38.3 % (42.0-52.0); Hemoglobin 11.5 g/dL (14.0-18.0); Immature Granulocyte Absolute 0.01 K/mm3 (0.00-0.031); Immature Granulocyte Percent A 0.2 % (0-0.5); Lymphocytes Absolute Auto 0.94 K/mm3 (0.9-3.2); Lymphocytes Percent Auto 15.6 % (18.3-44.2); Mean Corpuscular Volume 86.7 fl (80-100); Monocytes Absolute Auto 0.8 K/mm3 (0.1-0.6); Monocytes Percent Auto 13.3 % (2.6-8.5); Neutrophils Absolute Auto 3.8 K/mm3 (1.3-6.7); Neutrophils Percent Auto 63.1 % (45.5-73.1); Platelet Count Result 223 k/mm3 (150-375); Red Blood Count 4.42 M/mm3 (4.6-6.20); Red Cell Distribution Width 15.9 % (11.5-14.5)
[2023-10-28 05:40] LABS: Alanine Aminotransferase 8 U/L (6-50); Alkaline Phosphatase 93 U/L (38-126); Anion Gap 8 mmol/L (4-12); Aspartate Amino Transferase 21 U/L (17-59); Bilirubin,Total 0.3 mg/dL (0.2-1.3); Blood Urea Nitrogen 24 mg/dL (9-20); Calcium 8.8 mg/dL (8.4-10.2); Carbon Dioxide 25 mmol/L (22-30); Chloride 100 mmol/L (98-107); Estimated CRCL calculation 90 ml/min; Estimated Glomerular Filt Rate > 60; Glucose 195 mg/dL (65-110); Potassium 4.3 mmol/L (3.4-5.0); Sodium 133 mmol/L (137-145)
[2023-10-28] MEDS: metroNIDAZOLE 500 MG TABLET PO ×3 (06:50→20:58)
[2023-10-28] MEDS: LEVOTHYROXINE SODIUM 100 MCG TABLET PO (06:50)
[2023-10-28 08:40] LABS: Glucose Point of Care 161 mg/dl (65-105)
[2023-10-28] MEDS: FAMOTIDINE 20 MG TABLET PO (08:47)
[2023-10-28] MEDS: THERAPEUTIC MULTIVITAMINS/MINERALS TAB (*BKC) 1 TABLET PO (08:48)
[2023-10-28] MEDS: APIXABAN 5 MG TABLET PO ×2 (08:48→20:57)
[2023-10-28] MEDS: ASPIRIN 81 MG ENTERIC TABLET PO (08:48)
[2023-10-28] MEDS: VALSARTAN 20 MG TABLET PO (08:48)
[2023-10-28] MEDS: SENNA/DOCUSATE SODIUM TABLET 1 TAB PO ×2 (08:48→17:22)
[2023-10-28] MEDS: buPROPion HCL XL (24 HR) 150 MG TABCR PO (08:48)
[2023-10-28] MEDS: METOPROLOL SUCCINATE EXT REL 25 MG TABCR 75 MG PO (08:48)
[2023-10-28] MEDS: polyethylene glycoL 3350 17 GM POWD.PACK PO ×2 (08:48→17:22)
[2023-10-28] MEDS: cefTRIAXone 2 GM/NS 100 ML 2 GM/100 ML BAG IVPB (08:49)
[2023-10-28] MEDS: BETAMETHASONE/CLOTRIMAZOLE CREAM 45 GM TUBE 1 APPLIC TOPICAL (08:49)
[2023-10-28 10:57] LABS: Vancomycin Trough 21.3 ug/mL (10.0-20.0)
[2023-10-28 11:46] LABS: Glucose Point of Care 244 mg/dl (65-105)
[2023-10-28] MEDS: INSULIN ASPART (*BKC) 100 UNITS/ML SUB-Q ×2 (12:20→17:22)
--- NOTE | 2023-10-28 14:31 | P.PNIM_ITS ---
Progress Note: A&P Assessment and Plan (1) Cellulitis: Code(s): L03.90 - Cellulitis, unspecified Status: Acute Assessment and Plan: * (2) Diabetic foot infection: Code(s): E11.628 - Type 2 diabetes mellitus with other skin complications; L08.9 - Local infection of the skin and subcutaneous tissue, unspecified Status: Acute Assessment and Plan: See above plan of care (3) Acute UTI: Code(s): N39.0 - Urinary tract infection, site not specified Status: Acute (4) Altered mental status: Qualifiers: Altered mental status type: unspecified Qualified Code(s): R41.82 - Altered mental status, unspecified Code(s): R41.82 - Altered mental status, unspecified Status: Acute Assessment and Plan: 10/27/23: * Head CT was negative * Likely secondary to acute UTI versus cellulitis infection * TSH normal * Continue neuro checks (5) Gastroesophageal reflux disease: Code(s): K21.9 - Gastro-esophageal reflux disease without esophagitis Status: Chronic Assessment and Plan: 10/27/23: * Continue Pepcid (6) Hypertension: Code(s): I10 - Essential (primary) hypertension Status: Chronic Assessment and Plan: * Continue valsartan and metoprolol 25 mg extended release (7) Hypothyroidism: Code(s): E03.9 - Hypothyroidism, unspecified Status: Chronic Assessment and Plan: * Continue Synthroid (8) Hyperlipidemia: Code(s): E78.5 - Hyperlipidemia, unspecified Status: Chronic Assessment and Plan: * Continue pravastatin Plan #Cellulitis of Left Lower extremity warm, red, swollen with decubitus ulcer to left heel that is draining purulent drainage * CT of the left lower extremity reviewed * Wound nurse consult * Continue IV vancomycin , Rocephin and oral Flagyl * Wound culture shows Gram-negative bacilli and Gram-positive cocci he * Blood cultures preliminary shows negative * Ortho consulted and follow recs # Chronic Osteomyelitis * CT shows Osteolysis with absent cortication along the plantar/lateral margin of the posterior tuberosity of the calcaneus underlying a deep ulceration and consistent with osteomyelitis as seen on prior MRI. No evident progression in the amount of osteolysis since the prior studies. * No evidence of biopsy done * Culture done on 08/18/23 shows Staph aureus and simpson resistant Acinetobacter * Continue the current antibiotic ceftriaxone, metronidazole and vancomycin * Ortho consulted and follow recs # UTI * UA showed turbid appearance, 3+ urine protein, trace urine glucose, 3+ urine blood, 3+ leukocytes, greater than 100 urine RBC, greater than 100 WBC, 4+ urine bacteria, yeast present * Urine culture was obtained and is pending * Continue Rocephin * Patient has chronic Coats which was changed while in the ED ITS Impressions Head CT 10/26/23 13:37 Impression: No intracranial hemorrhage, mass, or acute infarct. Atrophy and chronic white matter changes, as above. Chest X-Ray 10/26/23 14:44 IMPRESSION: 1. Pulmonary vascular congestion with mild diffuse increased interstitial pattern throughout both lungs which could represent mild pulmonary edema or pneumonia. 2. Cardiomegaly. Lower Extremity CT 10/27/23 09:30 IMPRESSION: 1. Osteolysis with absent cortication along the plantar/lateral margin of the posterior tuberosity of the calcaneus underlying a deep ulceration and consistent with
--- NOTE | 2023-10-28 14:31 | PM.IMPN ---
Progress Note: A&P Assessment and Plan (1) Cellulitis: Code(s): L03.90 - Cellulitis, unspecified Status: Acute Assessment and Plan: (2) Diabetic foot infection: Code(s): E11.628 - Type 2 diabetes mellitus with other skin complications; L08.9 - Local infection of the skin and subcutaneous tissue, unspecified Status: Acute Assessment and Plan: See above plan of care (3) Acute UTI: Code(s): N39.0 - Urinary tract infection, site not specified Status: Acute (4) Altered mental status: Qualifiers: Altered mental status type: unspecified Qualified Code(s): R41.82 - Altered mental status, unspecified Code(s): R41.82 - Altered mental status, unspecified Status: Acute Assessment and Plan: 10/27/23: Head CT was negative Likely secondary to acute UTI versus cellulitis infection TSH normal Continue neuro checks (5) Gastroesophageal reflux disease: Code(s): K21.9 - Gastro-esophageal reflux disease without esophagitis Status: Chronic Assessment and Plan: 10/27/23: Continue Pepcid (6) Hypertension: Code(s): I10 - Essential (primary) hypertension Status: Chronic Assessment and Plan: Continue valsartan and metoprolol 25 mg extended release (7) Hypothyroidism: Code(s): E03.9 - Hypothyroidism, unspecified Status: Chronic Assessment and Plan: Continue Synthroid (8) Hyperlipidemia: Code(s): E78.5 - Hyperlipidemia, unspecified Status: Chronic Assessment and Plan: Continue pravastatin Plan #Cellulitis of Left Lower extremity warm, red, swollen with decubitus ulcer to left heel that is draining purulent drainage CT of the left lower extremity reviewed Wound nurse consult Continue IV vancomycin , Rocephin and oral Flagyl Wound culture shows Gram-negative bacilli and Gram-positive cocci he Blood cultures preliminary shows negative Ortho consulted and follow recs # Chronic Osteomyelitis CT shows Osteolysis with absent cortication along the plantar/lateral margin of the posterior tuberosity of the calcaneus underlying a deep ulceration and consistent with osteomyelitis as seen on prior MRI. No evident progression in the amount of osteolysis since the prior studies. No evidence of biopsy done Culture done on 08/18/23 shows Staph aureus and simpson resistant Acinetobacter Continue the current antibiotic ceftriaxone, metronidazole and vancomycin Ortho consulted and follow recs # UTI UA showed turbid appearance, 3+ urine protein, trace urine glucose, 3+ urine blood, 3+ leukocytes, greater than 100 urine RBC, greater than 100 WBC, 4+ urine bacteria, yeast present Urine culture was obtained and is pending Continue Rocephin Patient has chronic Coats which was changed while in the ED ITS Impressions Head CT 10/26/23 13:37 Impression: No intracranial hemorrhage, mass, or acute infarct. Atrophy and chronic white matter changes, as above. Chest X-Ray 10/26/23 14:44 IMPRESSION: 1. Pulmonary vascular congestion with mild diffuse increased interstitial pattern throughout both lungs which could represent mild pulmonary edema or pneumonia. 2. Cardiomegaly. Lower Extremity CT 10/27/23 09:30 IMPRESSION: 1. Osteolysis with absent cortication along the plantar/lateral margin of the posterior tuberosity of the calcaneus underlying a deep ulceration and consistent with osteomyelitis as seen on prior MRI. No evident progression in the amount of osteolysis since the prior studies. 2. Acute to subacute fractures of the lateral malleolus and of the anterolateral aspect of the tibial plafond involving the footplate of the anterior-inferior tibiofibular ligament which is new since the MRI on 08/13/2023. Correlate for interval ankle trauma. 3. Severe fatty atrophy of the musculature of the left foot and visualized distal left calf. 4. Mild to moderate polyarti
[2023-10-28 16:35] LABS: Glucose Point of Care 219 mg/dl (65-105)
[2023-10-28] MEDS: VANCOMYCIN 1,250 MG/NS 250 ML 1,250 MG/250 ML BAG 166.67 MG IVPB (17:22)
[2023-10-28 20:36] LABS: Glucose Point of Care 173 mg/dl (65-105)
[2023-10-28] MEDS: PRAVASTATIN SODIUM 20 MG TABLET 40 MG PO (20:57)
[2023-10-28] MEDS: ACETAMINOPHEN 325 MG TABLET 650 MG PO (21:10)
[2023-10-29] VITALS (11 sets, daily range): BP systolic 156–176; BP diastolic 68–90; PULSE 60–100; RESP 16–18; TEMP 36.4–36.9; O2SAT 97–100
[2023-10-29 05:42] LABS: Basophils Absolute Auto 0.1 K/mm3 (0.0-0.1); Basophils Percent Auto 0.9 % (0.2-1.2); Eosinophils Absolute Auto 0.5 K/mm3 (0-0.3); Eosinophils Percent Auto 7.4 % (0-4.4); Hematocrit 40.8 % (42.0-52.0); Hemoglobin 12.1 g/dL (14.0-18.0); Immature Granulocyte Absolute 0.02 K/mm3 (0.00-0.031); Immature Granulocyte Percent A 0.3 % (0-0.5); Lymphocytes Absolute Auto 1.06 K/mm3 (0.9-3.2); Lymphocytes Percent Auto 16.4 % (18.3-44.2); Mean Corpuscular HGB Conc 29.7 g/dl (32-36); Mean Corpuscular Hemoglobin 25.7 pg (26-34); Mean Corpuscular Volume 86.6 fl (80-100); Monocytes Absolute Auto 0.7 K/mm3 (0.1-0.6); Monocytes Percent Auto 10.4 % (2.6-8.5); Neutrophils Absolute Auto 4.2 K/mm3 (1.3-6.7); Neutrophils Percent Auto 64.6 % (45.5-73.1); Platelet Count Result 242 k/mm3 (150-375); Red Blood Count 4.71 M/mm3 (4.6-6.20); Red Cell Distribution Width 15.5 % (11.5-14.5); White Blood Count 6.5 K/mm3 (4.5-10.0)
[2023-10-29] MEDS: VANCOMYCIN 1,250 MG/NS 250 ML 1,250 MG/250 ML BAG 166.67 MG IVPB ×2 (05:50→17:52)
[2023-10-29] MEDS: LEVOTHYROXINE SODIUM 100 MCG TABLET PO (05:51)
[2023-10-29] MEDS: metroNIDAZOLE 500 MG TABLET PO ×3 (05:51→20:42)
[2023-10-29 06:05] LABS: Alanine Aminotransferase 8 U/L (6-50); Albumin Level 3.3 g/dL (3.5-5.1); Alkaline Phosphatase 81 U/L (38-126); Anion Gap 8 mmol/L (4-12); Aspartate Amino Transferase 19 U/L (17-59); Bilirubin,Total 0.3 mg/dL (0.2-1.3); Blood Urea Nitrogen 18 mg/dL (9-20); Calcium 9.3 mg/dL (8.4-10.2); Carbon Dioxide 25 mmol/L (22-30); Chloride 101 mmol/L (98-107); Estimated CRCL calculation 81 ml/min; Estimated Glomerular Filt Rate > 60; Glucose 179 mg/dL (65-110); Potassium 3.8 mmol/L (3.4-5.0); Sodium 134 mmol/L (137-145)
[2023-10-29 06:09] LABS: Hypochromasia 1+; Platelet Estimate Adequate (Adequate)
[2023-10-29 06:10] LABS: Anisocytosis 1+; Schistocytes None Seen
[2023-10-29 07:47] LABS: Glucose Point of Care 190 mg/dl (65-105)
[2023-10-29] MEDS: VALSARTAN 20 MG TABLET PO (08:49)
[2023-10-29] MEDS: ASPIRIN 81 MG ENTERIC TABLET PO (08:49)
[2023-10-29] MEDS: SENNA/DOCUSATE SODIUM TABLET 1 TAB PO ×2 (08:49→17:52)
[2023-10-29] MEDS: THERAPEUTIC MULTIVITAMINS/MINERALS TAB (*BKC) 1 TABLET PO (08:49)
[2023-10-29] MEDS: METOPROLOL SUCCINATE EXT REL 25 MG TABCR 75 MG PO (08:49)
[2023-10-29] MEDS: APIXABAN 5 MG TABLET PO ×2 (08:49→20:41)
[2023-10-29] MEDS: buPROPion HCL XL (24 HR) 150 MG TABCR PO (08:50)
[2023-10-29] MEDS: cefTRIAXone 2 GM/NS 100 ML 2 GM/100 ML BAG IVPB (08:50)
[2023-10-29] MEDS: polyethylene glycoL 3350 17 GM POWD.PACK PO ×2 (08:50→17:52)
[2023-10-29] MEDS: FAMOTIDINE 20 MG TABLET PO (08:50)
[2023-10-29] MEDS: HYDROcodone/acetaminophen (*CRX) 5-325 MG TABLET 1 TAB PO (08:50)
[2023-10-29] MEDS: BETAMETHASONE/CLOTRIMAZOLE CREAM 45 GM TUBE 1 APPLIC TOPICAL (08:51)
[2023-10-29] MEDS: SODIUM CHLORIDE 0.9% IV 1,000 ML 125 ML IV CONT ×2 (08:51→18:04)
--- NOTE | 2023-10-29 11:01 | P.CDI_ITS ---
CDI Query Clarification Request Patient with a BMI of 42.8 please provide a diagnosis to accompany this finding: * Overweight * Obesity * Morbid Obesity * Other/Unknown
--- NOTE | 2023-10-29 11:01 | WPDCDIQUERY2 ---
CDI Query Clarification Request Patient with a BMI of 42.8 please provide a diagnosis to accompany this finding: Overweight Obesity Morbid Obesity Other/Unknown
[2023-10-29 11:54] LABS: Glucose Point of Care 157 mg/dl (65-105)
--- NOTE | 2023-10-29 13:04 | PM.CNOR ---
Assessment and Plan Assessment and plan (1) Chronic osteomyelitis of left foot: Code(s): M86.672 - Other chronic osteomyelitis, left ankle and foot Status: Acute Assessment and Plan: MRI in July of the left foot revealed osteomyelitis with cortical erosion at the plantar/lateral aspect of the posterior tuberosity of the calcaneus along a deep ulceration. NEW CT scan of the left foot during this admission reveals osteolysis with absent cortication along the plantar/lateral margin of the posterior tuberosity of the calcaneus underlying a deep ulceration and consistent with osteomyelitis as seen on prior MRI. No evident progression in the amount of osteolysis since the prior studies. New radiographs of bilateral lower extremities including tib-fib, ankle and foot revealed no evidence of fracture, dislocation or acute abnormalities. No erosions indicated on radiographs. Generalized osteopenia noted. On exam, left medial heel ulcer noted with 100% red/ pink wound bed. No probing with the skin surface to bone. Small amount of exudate covering wound easily cleaned with gauze pad. Surrounding tissue without redness or warmth. Palpable pedal pulse. Bilateral lower extremity pitting edema, 2 to 3+ noted. No obvious malodor. Mild serous drainage on dressing. New dressings applied. Dressings performed according to [facility] wound clinic recommendations. No open wound on the right heel. Pressure noted. Bilateral heels offloaded. Patient may benefit from waffle boots. Wound culture from 10/25 reveals few gram positive cocci and few gram negative bacilli. Blood cultures negative to date. Wound appears stable and CT scan without significant progression of osteomyelitis in comparison to previous MRI from July. Will further discuss with attending physician Dr. Lugo and determine further plan of care. In the interim, Continue conservative treatment with topical dressing changes. Offload heels. (2) Cellulitis: Code(s): L03.90 - Cellulitis, unspecified Status: Acute (3) Altered mental status: Qualifiers: Altered mental status type: unspecified Qualified Code(s): R41.82 - Altered mental status, unspecified Code(s): R41.82 - Altered mental status, unspecified Status: Acute (4) Urinary tract infection: Qualifiers: Encounter type: initial encounter Indwelling urinary catheter type: indwelling urethral catheter Urinary tract infection type: catheter-associated UTI Qualified Code(s): T83.511A - Infection and inflammatory reaction due to indwelling urethral catheter, initial encounter; N39.0 - Urinary tract infection, site not specified Code(s): N39.0 - Urinary tract infection, site not specified Status: Acute History of Present Illness HPI Consult date: 10/29/23 Chief complaint: Altered Mental Status/UTI Narrative: 68-year-old male admitted from a nursing facility with altered mental status. He was most recently admitted in July and treated for bacteremia. Orthopedic consult at that time for left heel ulcer. Patient was treated conservatively with IV antibiotics and wound care as well as heel offloading. The patient does have chronic venous stasis bilaterally of the lower extremities and has been known to have heel ulcers from the last several admissions. He is currently utilizing silver gel and wound covering. [facility] wound clinic team evaluated patient as well. MRI in July of the left foot revealed osteomyelitis with cortical erosion at the plantar/lateral aspect of the posterior tuberosity of the calcaneus along a deep ulceration. CT scan of the left foot during this admission reveals osteolysis with absent cortication along the plantar/lateral margin of the posterior tuberosity of the calcaneus underlying a deep ulceration and consistent with osteomyelitis as seen on prior MRI. No evident progression in the amount of osteolysis since the prior studies. new radiographs of ranjith
--- NOTE | 2023-10-29 15:02 | PM.IMPN ---
Progress Note: A&P Assessment and Plan (1) Cellulitis: Code(s): L03.90 - Cellulitis, unspecified Status: Acute Assessment and Plan: (2) Diabetic foot infection: Code(s): E11.628 - Type 2 diabetes mellitus with other skin complications; L08.9 - Local infection of the skin and subcutaneous tissue, unspecified Status: Acute Assessment and Plan: See above plan of care (3) Acute UTI: Code(s): N39.0 - Urinary tract infection, site not specified Status: Acute (4) Altered mental status: Qualifiers: Altered mental status type: unspecified Qualified Code(s): R41.82 - Altered mental status, unspecified Code(s): R41.82 - Altered mental status, unspecified Status: Acute Assessment and Plan: 10/27/23: Head CT was negative Likely secondary to acute UTI versus cellulitis infection TSH normal Continue neuro checks (5) Gastroesophageal reflux disease: Code(s): K21.9 - Gastro-esophageal reflux disease without esophagitis Status: Chronic Assessment and Plan: 10/27/23: Continue Pepcid (6) Hypertension: Code(s): I10 - Essential (primary) hypertension Status: Chronic Assessment and Plan: Continue valsartan and metoprolol 25 mg extended release (7) Hypothyroidism: Code(s): E03.9 - Hypothyroidism, unspecified Status: Chronic Assessment and Plan: Continue Synthroid (8) Hyperlipidemia: Code(s): E78.5 - Hyperlipidemia, unspecified Status: Chronic Assessment and Plan: Continue pravastatin (9) Morbid obesity: Code(s): E66.01 - Morbid (severe) obesity due to excess calories Status: Acute Plan #Cellulitis of Left Lower extremity warm, red, swollen with decubitus ulcer to left heel that is draining purulent drainage CT of the left lower extremity reviewed Wound nurse consult Continue IV vancomycin , Rocephin and oral Flagyl Wound culture shows Gram-negative bacilli and Gram-positive cocci he Blood cultures preliminary shows negative Ortho consulted and follow recs # Chronic Osteomyelitis CT shows Osteolysis with absent cortication along the plantar/lateral margin of the posterior tuberosity of the calcaneus underlying a deep ulceration and consistent with osteomyelitis as seen on prior MRI. No evident progression in the amount of osteolysis since the prior studies. No evidence of biopsy done Culture done on 08/18/23 shows Staph aureus and simpson resistant Acinetobacter Continue the current antibiotic ceftriaxone, metronidazole and vancomycin Ortho consulted and follow recs # UTI UA showed turbid appearance, 3+ urine protein, trace urine glucose, 3+ urine blood, 3+ leukocytes, greater than 100 urine RBC, greater than 100 WBC, 4+ urine bacteria, yeast present Urine culture was obtained and is pending Continue Rocephin Patient has chronic Coats which was changed while in the ED ITS Impressions Head CT 10/26/23 13:37 Impression: No intracranial hemorrhage, mass, or acute infarct. Atrophy and chronic white matter changes, as above. Chest X-Ray 10/26/23 14:44 IMPRESSION: 1. Pulmonary vascular congestion with mild diffuse increased interstitial pattern throughout both lungs which could represent mild pulmonary edema or pneumonia. 2. Cardiomegaly. Lower Extremity CT 10/27/23 09:30 IMPRESSION: 1. Osteolysis with absent cortication along the plantar/lateral margin of the posterior tuberosity of the calcaneus underlying a deep ulceration and consistent with osteomyelitis as seen on prior MRI. No evident progression in the amount of osteolysis since the prior studies. 2. Acute to subacute fractures of the lateral malleolus and of the anterolateral aspect of the tibial plafond involving the footplate of the anterior-inferior tibiofibular ligament which is new since the MRI on 08/13/2023. Correlate for interval ankle trauma. 3. Sev
[2023-10-29 17:23] LABS: Glucose Point of Care 207 mg/dl (65-105)
[2023-10-29] MEDS: INSULIN ASPART (*BKC) 100 UNITS/ML SUB-Q (17:59)
[2023-10-29] MEDS: ACETAMINOPHEN 325 MG TABLET 650 MG PO (20:41)
[2023-10-29] MEDS: PRAVASTATIN SODIUM 20 MG TABLET 40 MG PO (20:41)
[2023-10-29 20:43] LABS: Glucose Point of Care 229 mg/dl (65-105)
[2023-10-30] VITALS (13 sets, daily range): BP systolic 109–172; BP diastolic 47–86; PULSE 62–78; RESP 17–18; TEMP 36.6–36.9; O2SAT 93–98
[2023-10-30] MEDS: MORPHINE SULFATE (*CRX) 2 MG/ML INJ IV PUSH (00:05)
[2023-10-30] MEDS: SODIUM CHLORIDE 0.9% IV 1,000 ML 125 ML IV CONT ×2 (04:00→14:45)
[2023-10-30] MEDS: LEVOTHYROXINE SODIUM 100 MCG TABLET PO (05:36)
[2023-10-30] MEDS: HYDROcodone/acetaminophen (*CRX) 5-325 MG TABLET 1 TAB PO (05:36)
[2023-10-30] MEDS: metroNIDAZOLE 500 MG TABLET PO (05:36)
[2023-10-30 05:37] LABS: Basophils Absolute Auto 0.1 K/mm3 (0.0-0.1); Eosinophils Absolute Auto 0.4 K/mm3 (0-0.3); Eosinophils Percent Auto 6.9 % (0-4.4); Hematocrit 40.4 % (42.0-52.0); Immature Granulocyte Absolute 0.04 K/mm3 (0.00-0.031); Immature Granulocyte Percent A 0.7 % (0-0.5); Lymphocytes Absolute Auto 1.15 K/mm3 (0.9-3.2); Mean Corpuscular HGB Conc 29.7 g/dl (32-36); Mean Corpuscular Hemoglobin 25.2 pg (26-34); Mean Corpuscular Volume 84.9 fl (80-100); Monocytes Absolute Auto 0.7 K/mm3 (0.1-0.6); Monocytes Percent Auto 11.4 % (2.6-8.5); Neutrophils Absolute Auto 3.7 K/mm3 (1.3-6.7); Platelet Count Result 270 k/mm3 (150-375); Red Blood Count 4.76 M/mm3 (4.6-6.20); Red Cell Distribution Width 15.9 % (11.5-14.5); White Blood Count 6.1 K/mm3 (4.5-10.0)
[2023-10-30 05:47] LABS: Alanine Aminotransferase 10 U/L (6-50); Albumin Level 3.3 g/dL (3.5-5.1); Alkaline Phosphatase 77 U/L (38-126); Anion Gap 10 mmol/L (4-12); Aspartate Amino Transferase 22 U/L (17-59); Bilirubin,Total 0.3 mg/dL (0.2-1.3); Blood Urea Nitrogen 15 mg/dL (9-20); Calcium 9.4 mg/dL (8.4-10.2); Carbon Dioxide 22 mmol/L (22-30); Chloride 104 mmol/L (98-107); Estimated CRCL calculation 90 ml/min; Estimated Glomerular Filt Rate > 60; Glucose 169 mg/dL (65-110); Potassium 3.7 mmol/L (3.4-5.0); Sodium 136 mmol/L (137-145)
[2023-10-30 06:01] LABS: Vancomycin Trough 21.9 ug/mL (10.0-20.0)
[2023-10-30 06:08] LABS: Anisocytosis 1+; Hypochromasia 1+; Platelet Estimate Adequate (Adequate); Schistocytes None Seen
[2023-10-30 08:05] LABS: Glucose Point of Care 164 mg/dl (65-105)
[2023-10-30] MEDS: APIXABAN 5 MG TABLET PO ×2 (08:35→20:31)
[2023-10-30] MEDS: THERAPEUTIC MULTIVITAMINS/MINERALS TAB (*BKC) 1 TABLET PO (08:35)
[2023-10-30] MEDS: FAMOTIDINE 20 MG TABLET PO (08:35)
[2023-10-30] MEDS: METOPROLOL SUCCINATE EXT REL 25 MG TABCR 75 MG PO (08:35)
[2023-10-30] MEDS: buPROPion HCL XL (24 HR) 150 MG TABCR PO (08:35)
[2023-10-30] MEDS: ASPIRIN 81 MG ENTERIC TABLET PO (08:35)
[2023-10-30] MEDS: SENNA/DOCUSATE SODIUM TABLET 1 TAB PO ×2 (08:35→18:36)
[2023-10-30] MEDS: VALSARTAN 20 MG TABLET PO (08:35)
[2023-10-30] MEDS: polyethylene glycoL 3350 17 GM POWD.PACK PO ×2 (08:36→18:36)
[2023-10-30] MEDS: cefTRIAXone 2 GM/NS 100 ML 2 GM/100 ML BAG IVPB (08:43)
[2023-10-30] MEDS: ACETAMINOPHEN 325 MG TABLET 650 MG PO (08:50)
[2023-10-30] MEDS: BETAMETHASONE/CLOTRIMAZOLE CREAM 45 GM TUBE 1 APPLIC TOPICAL (09:55)
[2023-10-30] MEDS: VANCOMYCIN 1,000 MG/NS 250 ML 1,000 MG/250 ML BAG 250 MG IVPB (09:55)
--- NOTE | 2023-10-30 10:47 | P.PNIM_ITS ---
Progress Note: A&P Assessment and Plan (1) Cellulitis: Code(s): L03.90 - Cellulitis, unspecified Status: Acute Assessment and Plan: * (2) Diabetic foot infection: Code(s): E11.628 - Type 2 diabetes mellitus with other skin complications; L08.9 - Local infection of the skin and subcutaneous tissue, unspecified Status: Acute Assessment and Plan: See above plan of care (3) Acute UTI: Code(s): N39.0 - Urinary tract infection, site not specified Status: Acute (4) Altered mental status: Qualifiers: Altered mental status type: unspecified Qualified Code(s): R41.82 - Altered mental status, unspecified Code(s): R41.82 - Altered mental status, unspecified Status: Acute Assessment and Plan: 10/27/23: * Head CT was negative * Likely secondary to acute UTI versus cellulitis infection * TSH normal * Continue neuro checks (5) Gastroesophageal reflux disease: Code(s): K21.9 - Gastro-esophageal reflux disease without esophagitis Status: Chronic Assessment and Plan: 10/27/23: * Continue Pepcid (6) Hypertension: Code(s): I10 - Essential (primary) hypertension Status: Chronic Assessment and Plan: * Continue valsartan and metoprolol 25 mg extended release (7) Hypothyroidism: Code(s): E03.9 - Hypothyroidism, unspecified Status: Chronic Assessment and Plan: * Continue Synthroid (8) Hyperlipidemia: Code(s): E78.5 - Hyperlipidemia, unspecified Status: Chronic Assessment and Plan: * Continue pravastatin (9) Morbid obesity: Code(s): E66.01 - Morbid (severe) obesity due to excess calories Status: Acute Plan #Cellulitis of Left Lower extremity warm, red, swollen with decubitus ulcer to left heel that is draining purulent drainage * CT of the left lower extremity reviewed * Wound nurse consult * Continue IV vancomycin , Rocephin and oral Flagyl * Wound culture shows Gram-negative bacilli and Gram-positive cocci he * Blood cultures preliminary shows negative * Ortho consulted and follow recs # Chronic Osteomyelitis * CT shows Osteolysis with absent cortication along the plantar/lateral margin of the posterior tuberosity of the calcaneus underlying a deep ulceration and consistent with osteomyelitis as seen on prior MRI. No evident progression in the amount of osteolysis since the prior studies. * No evidence of biopsy done * Culture done on 08/18/23 shows Staph aureus and simpson resistant Acinetobacter * Continue the current antibiotic ceftriaxone, metronidazole and vancomycin * Ortho consulted and follow recs # UTI * UA showed turbid appearance, 3+ urine protein, trace urine glucose, 3+ urine blood, 3+ leukocytes, greater than 100 urine RBC, greater than 100 WBC, 4+ urine bacteria, yeast present * Urine culture was obtained and its contaminated * Continue Rocephin * Patient has chronic Coats which was changed while in the ED ITS Impressions Head CT 10/26/23 13:37 Impression: No intracranial hemorrhage, mass, or acute infarct. Atrophy and chronic white matter changes, as above. Chest X-Ray 10/26/23 14:44 IMPRESSION: 1. Pulmonary vascular congestion with mild diffuse increased interstitial pattern throughout both lungs which could represent mild pulmonary edema or pneumonia. 2. Cardiomegaly. Lower Extremity CT 10/27/23 09:30 IMPRESSION: 1. Osteolysis with absent corticat
[2023-10-30 12:08] LABS: Glucose Point of Care 209 mg/dl (65-105)
[2023-10-30] MEDS: INSULIN ASPART (*BKC) 100 UNITS/ML SUB-Q (13:10)
[2023-10-30 17:14] LABS: Glucose Point of Care 190 mg/dl (65-105)
[2023-10-30] MEDS: PRAVASTATIN SODIUM 20 MG TABLET 40 MG PO (20:30)
[2023-10-30] MEDS: DOXYCYCLINE HYCLATE 100 MG TABLET PO (20:31)
[2023-10-30 20:50] LABS: Glucose Point of Care 230 mg/dl (65-105)
[2023-10-31] VITALS (9 sets, daily range): BP systolic 153–174; BP diastolic 77–93; PULSE 48–116; RESP 18–20; TEMP 36.3–36.9; O2SAT 95–97
[2023-10-31 06:22] LABS: Basophils Absolute Auto 0.1 K/mm3 (0.0-0.1); Eosinophils Absolute Auto 0.5 K/mm3 (0-0.3); Eosinophils Percent Auto 5.8 % (0-4.4); Hematocrit 41.4 % (42.0-52.0); Hemoglobin 12.6 g/dL (14.0-18.0); Immature Granulocyte Absolute 0.04 K/mm3 (0.00-0.031); Immature Granulocyte Percent A 0.5 % (0-0.5); Lymphocytes Absolute Auto 1.26 K/mm3 (0.9-3.2); Lymphocytes Percent Auto 15.8 % (18.3-44.2); Mean Corpuscular HGB Conc 30.4 g/dl (32-36); Mean Corpuscular Hemoglobin 25.9 pg (26-34); Mean Corpuscular Volume 85.2 fl (80-100); Mean Platelet Volume 9.9 fl (7.4-10.4); Monocytes Absolute Auto 0.7 K/mm3 (0.1-0.6); Monocytes Percent Auto 8.5 % (2.6-8.5); Neutrophils Absolute Auto 5.4 K/mm3 (1.3-6.7); Neutrophils Percent Auto 68.4 % (45.5-73.1); Platelet Count Result 307 k/mm3 (150-375); Red Blood Count 4.86 M/mm3 (4.6-6.20); Red Cell Distribution Width 16.2 % (11.5-14.5)
[2023-10-31] MEDS: MORPHINE SULFATE (*CRX) 2 MG/ML INJ IV PUSH (06:24)
[2023-10-31 06:41] LABS: Alanine Aminotransferase 12 U/L (6-50); Albumin Level 3.4 g/dL (3.5-5.1); Alkaline Phosphatase 78 U/L (38-126); Anion Gap 6 mmol/L (4-12); Aspartate Amino Transferase 33 U/L (17-59); Bilirubin,Total 0.4 mg/dL (0.2-1.3); Blood Urea Nitrogen 12 mg/dL (9-20); Calcium 9.4 mg/dL (8.4-10.2); Carbon Dioxide 25 mmol/L (22-30); Chloride 104 mmol/L (98-107); Estimated CRCL calculation 113 ml/min; Estimated Glomerular Filt Rate > 60; Glucose 171 mg/dL (65-110); Potassium 3.8 mmol/L (3.4-5.0); Sodium 135 mmol/L (137-145)
[2023-10-31] MEDS: LEVOTHYROXINE SODIUM 100 MCG TABLET PO (06:46)
[2023-10-31 08:03] LABS: Glucose Point of Care 168 mg/dl (65-105)
[2023-10-31] MEDS: SENNA/DOCUSATE SODIUM TABLET 1 TAB PO (08:41)
[2023-10-31] MEDS: VALSARTAN 20 MG TABLET PO (08:41)
[2023-10-31] MEDS: AMOXICILLIN/CLAVULANATE K 875-125 MG TAB 1 TABLET PO ×2 (08:41→20:02)
[2023-10-31] MEDS: METOPROLOL SUCCINATE EXT REL 25 MG TABCR 75 MG PO (08:41)
[2023-10-31] MEDS: APIXABAN 5 MG TABLET PO ×2 (08:41→20:02)
[2023-10-31] MEDS: FAMOTIDINE 20 MG TABLET PO (08:52)
[2023-10-31] MEDS: ASPIRIN 81 MG ENTERIC TABLET PO (08:52)
[2023-10-31] MEDS: DOXYCYCLINE HYCLATE 100 MG TABLET PO ×2 (08:52→20:02)
[2023-10-31] MEDS: BETAMETHASONE/CLOTRIMAZOLE CREAM 45 GM TUBE 1 APPLIC TOPICAL (08:52)
[2023-10-31] MEDS: buPROPion HCL XL (24 HR) 150 MG TABCR PO (08:52)
[2023-10-31] MEDS: THERAPEUTIC MULTIVITAMINS/MINERALS TAB (*BKC) 1 TABLET PO (08:52)
[2023-10-31] MEDS: SODIUM CHLORIDE 0.9% IV 1,000 ML 125 ML IV CONT ×2 (10:00→17:37)
--- NOTE | 2023-10-31 10:38 | P.PNIM_ITS ---
Progress Note: A&P Assessment and Plan (1) Cellulitis: Code(s): L03.90 - Cellulitis, unspecified Status: Acute Assessment and Plan: * (2) Diabetic foot infection: Code(s): E11.628 - Type 2 diabetes mellitus with other skin complications; L08.9 - Local infection of the skin and subcutaneous tissue, unspecified Status: Acute Assessment and Plan: See above plan of care (3) Acute UTI: Code(s): N39.0 - Urinary tract infection, site not specified Status: Acute (4) Altered mental status: Qualifiers: Altered mental status type: unspecified Qualified Code(s): R41.82 - Altered mental status, unspecified Code(s): R41.82 - Altered mental status, unspecified Status: Acute Assessment and Plan: 10/27/23: * Head CT was negative * Likely secondary to acute UTI versus cellulitis infection * TSH normal * Continue neuro checks (5) Gastroesophageal reflux disease: Code(s): K21.9 - Gastro-esophageal reflux disease without esophagitis Status: Chronic Assessment and Plan: 10/27/23: * Continue Pepcid (6) Hypertension: Code(s): I10 - Essential (primary) hypertension Status: Chronic Assessment and Plan: * Continue valsartan and metoprolol 25 mg extended release (7) Hypothyroidism: Code(s): E03.9 - Hypothyroidism, unspecified Status: Chronic Assessment and Plan: * Continue Synthroid (8) Hyperlipidemia: Code(s): E78.5 - Hyperlipidemia, unspecified Status: Chronic Assessment and Plan: * Continue pravastatin (9) Morbid obesity: Code(s): E66.01 - Morbid (severe) obesity due to excess calories Status: Acute Plan #Cellulitis of Left Lower extremity warm, red, swollen with decubitus ulcer to left heel that is draining purulent drainage * CT of the left lower extremity reviewed * Wound nurse consult * Continue IV vancomycin , Rocephin and oral Flagyl * Wound culture shows Gram-negative bacilli and Gram-positive cocci he * Blood cultures preliminary shows negative * Ortho consulted and follow recs * MRI SHOWS : Acute to subacute fractures of the lateral malleolus and of the anterolateral aspect of the tibial plafond involving the footplate of the anterior-inferior tibiofibular ligament which is new since the MRI on 08/13/2023. Correlate for interval ankle trauma. # Chronic Osteomyelitis * CT shows Osteolysis with absent cortication along the plantar/lateral margin of the posterior tuberosity of the calcaneus underlying a deep ulceration and consistent with osteomyelitis as seen on prior MRI. No evident progression in the amount of osteolysis since the prior studies. * No evidence of biopsy done * Culture done on 08/18/23 shows Staph aureus and simpson resistant Acinetobacter * Continue the current antibiotic amox clav and doxycycline. * Ortho consulted and follow recs # UTI * UA showed turbid appearance, 3+ urine protein, trace urine glucose, 3+ urine blood, 3+ leukocytes, greater than 100 urine RBC, greater than 100 WBC, 4+ urine bacteria, yeast present * Urine culture was obtained and its contaminated * Continue Amox/Clav * Patient has chronic Coats which was changed while in the ED ITS Impressions Head CT 10/26/23 13:37 Impression: No intracranial hemorrhage, mass, or acute infarct. Atrophy and chronic white matter changes, as above. Chest X-Ray 10/26/23 14:44 IMPRESSION: 1. Pulmonary vascular fercho
--- NOTE | 2023-10-31 10:38 | PM.IMPN ---
Progress Note: A&P Assessment and Plan (1) Cellulitis: Code(s): L03.90 - Cellulitis, unspecified Status: Acute Assessment and Plan: (2) Diabetic foot infection: Code(s): E11.628 - Type 2 diabetes mellitus with other skin complications; L08.9 - Local infection of the skin and subcutaneous tissue, unspecified Status: Acute Assessment and Plan: See above plan of care (3) Acute UTI: Code(s): N39.0 - Urinary tract infection, site not specified Status: Acute (4) Altered mental status: Qualifiers: Altered mental status type: unspecified Qualified Code(s): R41.82 - Altered mental status, unspecified Code(s): R41.82 - Altered mental status, unspecified Status: Acute Assessment and Plan: 10/27/23: Head CT was negative Likely secondary to acute UTI versus cellulitis infection TSH normal Continue neuro checks (5) Gastroesophageal reflux disease: Code(s): K21.9 - Gastro-esophageal reflux disease without esophagitis Status: Chronic Assessment and Plan: 10/27/23: Continue Pepcid (6) Hypertension: Code(s): I10 - Essential (primary) hypertension Status: Chronic Assessment and Plan: Continue valsartan and metoprolol 25 mg extended release (7) Hypothyroidism: Code(s): E03.9 - Hypothyroidism, unspecified Status: Chronic Assessment and Plan: Continue Synthroid (8) Hyperlipidemia: Code(s): E78.5 - Hyperlipidemia, unspecified Status: Chronic Assessment and Plan: Continue pravastatin (9) Morbid obesity: Code(s): E66.01 - Morbid (severe) obesity due to excess calories Status: Acute Plan #Cellulitis of Left Lower extremity warm, red, swollen with decubitus ulcer to left heel that is draining purulent drainage CT of the left lower extremity reviewed Wound nurse consult Continue IV vancomycin , Rocephin and oral Flagyl Wound culture shows Gram-negative bacilli and Gram-positive cocci he Blood cultures preliminary shows negative Ortho consulted and follow recs MRI SHOWS : Acute to subacute fractures of the lateral malleolus and of the anterolateral aspect of the tibial plafond involving the footplate of the anterior-inferior tibiofibular ligament which is new since the MRI on 08/13/2023. Correlate for interval ankle trauma. # Chronic Osteomyelitis CT shows Osteolysis with absent cortication along the plantar/lateral margin of the posterior tuberosity of the calcaneus underlying a deep ulceration and consistent with osteomyelitis as seen on prior MRI. No evident progression in the amount of osteolysis since the prior studies. No evidence of biopsy done Culture done on 08/18/23 shows Staph aureus and simpson resistant Acinetobacter Continue the current antibiotic amox clav and doxycycline. Ortho consulted and follow recs # UTI UA showed turbid appearance, 3+ urine protein, trace urine glucose, 3+ urine blood, 3+ leukocytes, greater than 100 urine RBC, greater than 100 WBC, 4+ urine bacteria, yeast present Urine culture was obtained and its contaminated Continue Amox/Clav Patient has chronic Coats which was changed while in the ED ITS Impressions Head CT 10/26/23 13:37 Impression: No intracranial hemorrhage, mass, or acute infarct. Atrophy and chronic white matter changes, as above. Chest X-Ray 10/26/23 14:44 IMPRESSION: 1. Pulmonary vascular congestion with mild diffuse increased interstitial pattern throughout both lungs which could represent mild pulmonary edema or pneumonia. 2. Cardiomegaly. Lower Extremity CT 10/27/23 09:30 IMPRESSION: 1. Osteolysis with absent cortication along the plantar/lateral margin of the posterior tuberosity of the calcaneus underlying a deep ulceration and consistent with osteomyelitis as seen on prior MRI. No evident progression in the amount of osteolysis since the prior studies. 2.
[2023-10-31] MEDS: HYDROcodone/acetaminophen (*CRX) 5-325 MG TABLET 1 TAB PO ×2 (11:19→20:01)
[2023-10-31 11:55] LABS: Glucose Point of Care 203 mg/dl (65-105)
[2023-10-31] MEDS: INSULIN ASPART (*BKC) 100 UNITS/ML SUB-Q (12:30)
[2023-10-31 17:10] LABS: Glucose Point of Care 165 mg/dl (65-105)
[2023-10-31] MEDS: PRAVASTATIN SODIUM 20 MG TABLET 40 MG PO (20:01)
[2023-10-31 20:08] LABS: Glucose Point of Care 149 mg/dl (65-105)
[2023-11-01] VITALS (13 sets, daily range): BP systolic 167–180; BP diastolic 74–100; PULSE 73–97; RESP 16–18; TEMP 36.1–36.7; O2SAT 93–97
[2023-11-01] MEDS: SODIUM CHLORIDE 0.9% IV 1,000 ML 125 ML IV CONT (01:44)
[2023-11-01] MEDS: hydrALAZINE HCL 20 MG/ML VIAL 10 MG IV PUSH (04:45)
[2023-11-01] MEDS: LEVOTHYROXINE SODIUM 100 MCG TABLET PO (06:04)
[2023-11-01 06:37] LABS: Basophils Absolute Auto 0.1 K/mm3 (0.0-0.1); Basophils Percent Auto 0.9 % (0.2-1.2); Eosinophils Absolute Auto 0.5 K/mm3 (0-0.3); Eosinophils Percent Auto 6.2 % (0-4.4); Hematocrit 42.6 % (42.0-52.0); Hemoglobin 12.6 g/dL (14.0-18.0); Immature Granulocyte Absolute 0.03 K/mm3 (0.00-0.031); Immature Granulocyte Percent A 0.3 % (0-0.5); Lymphocytes Absolute Auto 1.37 K/mm3 (0.9-3.2); Lymphocytes Percent Auto 15.9 % (18.3-44.2); Mean Corpuscular HGB Conc 29.6 g/dl (32-36); Mean Corpuscular Hemoglobin 25.2 pg (26-34); Mean Corpuscular Volume 85.2 fl (80-100); Mean Platelet Volume 10.1 fl (7.4-10.4); Monocytes Absolute Auto 0.7 K/mm3 (0.1-0.6); Monocytes Percent Auto 8.2 % (2.6-8.5); Neutrophils Absolute Auto 5.9 K/mm3 (1.3-6.7); Neutrophils Percent Auto 68.5 % (45.5-73.1); Platelet Count Result 360 k/mm3 (150-375); Red Cell Distribution Width 17.1 % (11.5-14.5); White Blood Count 8.6 K/mm3 (4.5-10.0)
[2023-11-01 06:49] LABS: Alanine Aminotransferase 12 U/L (6-50); Albumin Level 3.4 g/dL (3.5-5.1); Alkaline Phosphatase 78 U/L (38-126); Anion Gap 9 mmol/L (4-12); Aspartate Amino Transferase 28 U/L (17-59); Bilirubin,Total 0.5 mg/dL (0.2-1.3); Blood Urea Nitrogen 10 mg/dL (9-20); Calcium 9.5 mg/dL (8.4-10.2); Carbon Dioxide 20 mmol/L (22-30); Chloride 107 mmol/L (98-107); Estimated CRCL calculation 113 ml/min; Estimated Glomerular Filt Rate > 60; Glucose 162 mg/dL (65-110); Potassium 3.6 mmol/L (3.4-5.0); Sodium 136 mmol/L (137-145)
[2023-11-01 07:37] LABS: Platelet Estimate Adequate (Adequate); Schistocytes None Seen
--- NOTE | 2023-11-01 07:54 | P.PNIM_ITS ---
Progress Note: A&P Assessment and Plan (1) Cellulitis: Code(s): L03.90 - Cellulitis, unspecified Status: Acute Assessment and Plan: * (2) Diabetic foot infection: Code(s): E11.628 - Type 2 diabetes mellitus with other skin complications; L08.9 - Local infection of the skin and subcutaneous tissue, unspecified Status: Acute Assessment and Plan: See above plan of care (3) Acute UTI: Code(s): N39.0 - Urinary tract infection, site not specified Status: Acute (4) Altered mental status: Qualifiers: Altered mental status type: unspecified Qualified Code(s): R41.82 - Altered mental status, unspecified Code(s): R41.82 - Altered mental status, unspecified Status: Acute Assessment and Plan: 10/27/23: * Head CT was negative * Likely secondary to acute UTI versus cellulitis infection * TSH normal * Continue neuro checks (5) Gastroesophageal reflux disease: Code(s): K21.9 - Gastro-esophageal reflux disease without esophagitis Status: Chronic Assessment and Plan: 10/27/23: * Continue Pepcid (6) Hypertension: Code(s): I10 - Essential (primary) hypertension Status: Chronic Assessment and Plan: * Continue valsartan and metoprolol 25 mg extended release (7) Hypothyroidism: Code(s): E03.9 - Hypothyroidism, unspecified Status: Chronic Assessment and Plan: * Continue Synthroid (8) Hyperlipidemia: Code(s): E78.5 - Hyperlipidemia, unspecified Status: Chronic Assessment and Plan: * Continue pravastatin (9) Morbid obesity: Code(s): E66.01 - Morbid (severe) obesity due to excess calories Status: Acute Plan #Cellulitis of Left Lower extremity warm, red, swollen with decubitus ulcer to left heel that is draining purulent drainage * CT of the left lower extremity reviewed * Wound nurse consult * Continue IV vancomycin , Rocephin and oral Flagyl * Wound culture shows Gram-negative bacilli and Gram-positive cocci he * Blood cultures preliminary shows negative * Ortho consulted and follow recs * MRI SHOWS : Acute to subacute fractures of the lateral malleolus and of the anterolateral aspect of the tibial plafond involving the footplate of the anterior-inferior tibiofibular ligament which is new since the MRI on 08/13/2023. Correlate for interval ankle trauma. # Chronic Osteomyelitis * CT shows Osteolysis with absent cortication along the plantar/lateral margin of the posterior tuberosity of the calcaneus underlying a deep ulceration and consistent with osteomyelitis as seen on prior MRI. No evident progression in the amount of osteolysis since the prior studies. * No evidence of biopsy done * Culture done on 08/18/23 shows Staph aureus and simpson resistant Acinetobacter * Continue the current antibiotic amox clav and doxycycline. * Ortho consulted and follow recs Continue conservative treatment with topical dressing changes. Offload heels per ortho recs # UTI * UA showed turbid appearance, 3+ urine protein, trace urine glucose, 3+ urine blood, 3+ leukocytes, greater than 100 urine RBC, greater than 100 WBC, 4+ urine bacteria, yeast present * Urine culture was obtained and its contaminated * Continue Amox/Clav * Patient has chronic Coats which was changed while in the ED Candice albicans in urine Suspecting candidal cystitis, start fluconazole 200mg daily p.o. for 2 weeks ITS Impressions Head CT 10/26/23 13:37 Impression: No intracranial hemorrh
--- NOTE | 2023-11-01 07:54 | PM.IMPN ---
Progress Note: A&P Assessment and Plan (1) Cellulitis: Code(s): L03.90 - Cellulitis, unspecified Status: Acute Assessment and Plan: (2) Diabetic foot infection: Code(s): E11.628 - Type 2 diabetes mellitus with other skin complications; L08.9 - Local infection of the skin and subcutaneous tissue, unspecified Status: Acute Assessment and Plan: See above plan of care (3) Acute UTI: Code(s): N39.0 - Urinary tract infection, site not specified Status: Acute (4) Altered mental status: Qualifiers: Altered mental status type: unspecified Qualified Code(s): R41.82 - Altered mental status, unspecified Code(s): R41.82 - Altered mental status, unspecified Status: Acute Assessment and Plan: 10/27/23: Head CT was negative Likely secondary to acute UTI versus cellulitis infection TSH normal Continue neuro checks (5) Gastroesophageal reflux disease: Code(s): K21.9 - Gastro-esophageal reflux disease without esophagitis Status: Chronic Assessment and Plan: 10/27/23: Continue Pepcid (6) Hypertension: Code(s): I10 - Essential (primary) hypertension Status: Chronic Assessment and Plan: Continue valsartan and metoprolol 25 mg extended release (7) Hypothyroidism: Code(s): E03.9 - Hypothyroidism, unspecified Status: Chronic Assessment and Plan: Continue Synthroid (8) Hyperlipidemia: Code(s): E78.5 - Hyperlipidemia, unspecified Status: Chronic Assessment and Plan: Continue pravastatin (9) Morbid obesity: Code(s): E66.01 - Morbid (severe) obesity due to excess calories Status: Acute Plan #Cellulitis of Left Lower extremity warm, red, swollen with decubitus ulcer to left heel that is draining purulent drainage CT of the left lower extremity reviewed Wound nurse consult Continue IV vancomycin , Rocephin and oral Flagyl Wound culture shows Gram-negative bacilli and Gram-positive cocci he Blood cultures preliminary shows negative Ortho consulted and follow recs MRI SHOWS : Acute to subacute fractures of the lateral malleolus and of the anterolateral aspect of the tibial plafond involving the footplate of the anterior-inferior tibiofibular ligament which is new since the MRI on 08/13/2023. Correlate for interval ankle trauma. # Chronic Osteomyelitis CT shows Osteolysis with absent cortication along the plantar/lateral margin of the posterior tuberosity of the calcaneus underlying a deep ulceration and consistent with osteomyelitis as seen on prior MRI. No evident progression in the amount of osteolysis since the prior studies. No evidence of biopsy done Culture done on 08/18/23 shows Staph aureus and simpson resistant Acinetobacter Continue the current antibiotic amox clav and doxycycline. Ortho consulted and follow recs Continue conservative treatment with topical dressing changes. Offload heels per ortho recs # UTI UA showed turbid appearance, 3+ urine protein, trace urine glucose, 3+ urine blood, 3+ leukocytes, greater than 100 urine RBC, greater than 100 WBC, 4+ urine bacteria, yeast present Urine culture was obtained and its contaminated Continue Amox/Clav Patient has chronic Coats which was changed while in the ED Candice albicans in urine Suspecting candidal cystitis, start fluconazole 200mg daily p.o. for 2 weeks ITS Impressions Head CT 10/26/23 13:37 Impression: No intracranial hemorrhage, mass, or acute infarct. Atrophy and chronic white matter changes, as above. Chest X-Ray 10/26/23 14:44 IMPRESSION: 1. Pulmonary vascular congestion with mild diffuse increased interstitial pattern throughout both lungs which could represent mild pulmonary edema or pneumonia. 2. Cardiomegaly. Lower Extremity CT 10/27/23 09:30 IMPRESSION: 1. Osteolysis with absent cortication along the plantar/lateral margin of the posterior tube
[2023-11-01 08:12] LABS: Glucose Point of Care 179 mg/dl (65-105)
[2023-11-01] MEDS: AMOXICILLIN/CLAVULANATE K 875-125 MG TAB 1 TABLET PO ×2 (08:21→21:00)
[2023-11-01] MEDS: FAMOTIDINE 20 MG TABLET PO (08:21)
[2023-11-01] MEDS: DOXYCYCLINE HYCLATE 100 MG TABLET PO ×2 (08:21→21:00)
[2023-11-01] MEDS: APIXABAN 5 MG TABLET PO ×2 (08:22→21:00)
[2023-11-01] MEDS: VALSARTAN 20 MG TABLET PO (08:22)
[2023-11-01] MEDS: ASPIRIN 81 MG ENTERIC TABLET PO (08:23)
[2023-11-01] MEDS: buPROPion HCL XL (24 HR) 150 MG TABCR PO (08:23)
[2023-11-01] MEDS: THERAPEUTIC MULTIVITAMINS/MINERALS TAB (*BKC) 1 TABLET PO (08:23)
[2023-11-01] MEDS: METOPROLOL SUCCINATE EXT REL 25 MG TABCR 75 MG PO (08:24)
[2023-11-01] MEDS: BETAMETHASONE/CLOTRIMAZOLE CREAM 45 GM TUBE 1 APPLIC TOPICAL (08:25)
[2023-11-01] MEDS: FLUCONAZOLE 100 MG TABLET 200 MG PO (08:29)
[2023-11-01] MEDS: ACETAMINOPHEN 325 MG TABLET 650 MG PO ×2 (08:35→16:31)
[2023-11-01 12:00] LABS: Glucose Point of Care 201 mg/dl (65-105)
[2023-11-01] MEDS: INSULIN ASPART (*BKC) 100 UNITS/ML SUB-Q (12:01)
--- NOTE | 2023-11-01 15:31 | PC.NURSE ---
Called Radha Patterson regarding patients blood pressure. The diastolic number was elevated per patient's baseline. Requested hydralazine ONCE, but request denied as patient will receive IV Lasix later today.
[2023-11-01] MEDS: polyethylene glycoL 3350 17 GM POWD.PACK PO (16:32)
[2023-11-01] MEDS: FUROSEMIDE INJ 40 MG/4 ML VIAL IV PUSH (16:32)
[2023-11-01] MEDS: SENNA/DOCUSATE SODIUM TABLET 1 TAB PO (16:32)
[2023-11-01 16:57] LABS: Glucose Point of Care 192 mg/dl (65-105)
[2023-11-01] MEDS: PRAVASTATIN SODIUM 20 MG TABLET 40 MG PO (21:00)
[2023-11-01 22:20] LABS: Glucose Point of Care 291 mg/dl (65-105)
[2023-11-01] MEDS: HYDROcodone/acetaminophen (*CRX) 5-325 MG TABLET 1 TAB PO (23:11)
[2023-11-02] VITALS (11 sets, daily range): BP systolic 159–172; BP diastolic 73–92; PULSE 59–100; RESP 16–20; TEMP 36.2–36.4; O2SAT 93–97
[2023-11-02 04:57] LABS: Basophils Absolute Auto 0.1 K/mm3 (0.0-0.1); Basophils Percent Auto 0.8 % (0.2-1.2); Eosinophils Absolute Auto 0.5 K/mm3 (0-0.3); Eosinophils Percent Auto 5.6 % (0-4.4); Hemoglobin 12.3 g/dL (14.0-18.0); Immature Granulocyte Absolute 0.04 K/mm3 (0.00-0.031); Immature Granulocyte Percent A 0.4 % (0-0.5); Lymphocytes Absolute Auto 1.52 K/mm3 (0.9-3.2); Lymphocytes Percent Auto 15.8 % (18.3-44.2); Mean Corpuscular Hemoglobin 25.4 pg (26-34); Mean Corpuscular Volume 84.5 fl (80-100); Mean Platelet Volume 9.9 fl (7.4-10.4); Monocytes Absolute Auto 0.9 K/mm3 (0.1-0.6); Neutrophils Absolute Auto 6.6 K/mm3 (1.3-6.7); Neutrophils Percent Auto 68.4 % (45.5-73.1); Platelet Count Result 366 k/mm3 (150-375); Red Blood Count 4.85 M/mm3 (4.6-6.20); Red Cell Distribution Width 16.7 % (11.5-14.5); White Blood Count 9.6 K/mm3 (4.5-10.0)
[2023-11-02 05:10] LABS: Alanine Aminotransferase 11 U/L (6-50); Albumin Level 3.2 g/dL (3.5-5.1); Alkaline Phosphatase 74 U/L (38-126); Anion Gap 6 mmol/L (4-12); Aspartate Amino Transferase 22 U/L (17-59); Bilirubin,Total 0.5 mg/dL (0.2-1.3); Blood Urea Nitrogen 11 mg/dL (9-20); Calcium 9.4 mg/dL (8.4-10.2); Carbon Dioxide 24 mmol/L (22-30); Chloride 105 mmol/L (98-107); Estimated CRCL calculation 113 ml/min; Estimated Glomerular Filt Rate > 60; Glucose 218 mg/dL (65-110); Potassium 3.3 mmol/L (3.4-5.0); Sodium 135 mmol/L (137-145)
[2023-11-02 08:02] LABS: Glucose Point of Care 197 mg/dl (65-105)
--- NOTE | 2023-11-02 08:17 | P.PNIM_ITS ---
Progress Note: A&P Assessment and Plan (1) Cellulitis: Code(s): L03.90 - Cellulitis, unspecified Status: Acute Assessment and Plan: * (2) Diabetic foot infection: Code(s): E11.628 - Type 2 diabetes mellitus with other skin complications; L08.9 - Local infection of the skin and subcutaneous tissue, unspecified Status: Acute Assessment and Plan: See above plan of care (3) Acute UTI: Code(s): N39.0 - Urinary tract infection, site not specified Status: Acute (4) Altered mental status: Qualifiers: Altered mental status type: unspecified Qualified Code(s): R41.82 - Altered mental status, unspecified Code(s): R41.82 - Altered mental status, unspecified Status: Acute Assessment and Plan: 10/27/23: * Head CT was negative * Likely secondary to acute UTI versus cellulitis infection * TSH normal * Continue neuro checks (5) Gastroesophageal reflux disease: Code(s): K21.9 - Gastro-esophageal reflux disease without esophagitis Status: Chronic Assessment and Plan: 10/27/23: * Continue Pepcid (6) Hypertension: Code(s): I10 - Essential (primary) hypertension Status: Chronic Assessment and Plan: * Continue valsartan and metoprolol 25 mg extended release (7) Hypothyroidism: Code(s): E03.9 - Hypothyroidism, unspecified Status: Chronic Assessment and Plan: * Continue Synthroid (8) Hyperlipidemia: Code(s): E78.5 - Hyperlipidemia, unspecified Status: Chronic Assessment and Plan: * Continue pravastatin (9) Morbid obesity: Code(s): E66.01 - Morbid (severe) obesity due to excess calories Status: Acute Plan Cellulitis of Left Lower extremity warm, red, swollen with decubitus ulcer to left heel that is draining purulent drainage * CT of the left lower extremity reviewed * Wound nurse consult * Continue IV vancomycin , Rocephin and oral Flagyl * Wound culture : A mix of organisms of questionable significance was recovered on culture and not further identified. Growth did not detect the presence of S.aureus, beta-hemolytic Streptococci or P.aeruginosa * Blood cultures preliminary shows negative * Ortho consulted and follow recs * MRI SHOWS : Acute to subacute fractures of the lateral malleolus and of the anterolateral aspect of the tibial plafond involving the footplate of the anterior-inferior tibiofibular ligament which is new since the MRI on 08/13/2023. Correlate for interval ankle trauma. Chronic Osteomyelitis * CT shows Osteolysis with absent cortication along the plantar/lateral margin of the posterior tuberosity of the calcaneus underlying a deep ulceration and consistent with osteomyelitis as seen on prior MRI. No evident progression in the amount of osteolysis since the prior studies. * No evidence of biopsy done * Culture done on 08/18/23 shows Staph aureus and simpson resistant Acinetobacter * Continue the current antibiotic amox clav and doxycycline. * Ortho consulted and follow recs Continue conservative treatment with topical dressing changes. Offload heels per ortho recs UTI * UA showed turbid appearance, 3+ urine protein, trace urine glucose, 3+ urine blood, 3+ leukocytes, greater than 100 urine RBC, greater than 100 WBC, 4+ urine bacteria, yeast present * Urine culture was obtained and its contaminated * Continue Amox/Clav * Patient has chronic Coats which was changed while in the ED Candice albicans in urine Susp
--- NOTE | 2023-11-02 08:17 | PM.IMPN ---
Progress Note: A&P Assessment and Plan (1) Cellulitis: Code(s): L03.90 - Cellulitis, unspecified Status: Acute Assessment and Plan: (2) Diabetic foot infection: Code(s): E11.628 - Type 2 diabetes mellitus with other skin complications; L08.9 - Local infection of the skin and subcutaneous tissue, unspecified Status: Acute Assessment and Plan: See above plan of care (3) Acute UTI: Code(s): N39.0 - Urinary tract infection, site not specified Status: Acute (4) Altered mental status: Qualifiers: Altered mental status type: unspecified Qualified Code(s): R41.82 - Altered mental status, unspecified Code(s): R41.82 - Altered mental status, unspecified Status: Acute Assessment and Plan: 10/27/23: Head CT was negative Likely secondary to acute UTI versus cellulitis infection TSH normal Continue neuro checks (5) Gastroesophageal reflux disease: Code(s): K21.9 - Gastro-esophageal reflux disease without esophagitis Status: Chronic Assessment and Plan: 10/27/23: Continue Pepcid (6) Hypertension: Code(s): I10 - Essential (primary) hypertension Status: Chronic Assessment and Plan: Continue valsartan and metoprolol 25 mg extended release (7) Hypothyroidism: Code(s): E03.9 - Hypothyroidism, unspecified Status: Chronic Assessment and Plan: Continue Synthroid (8) Hyperlipidemia: Code(s): E78.5 - Hyperlipidemia, unspecified Status: Chronic Assessment and Plan: Continue pravastatin (9) Morbid obesity: Code(s): E66.01 - Morbid (severe) obesity due to excess calories Status: Acute Plan Cellulitis of Left Lower extremity warm, red, swollen with decubitus ulcer to left heel that is draining purulent drainage CT of the left lower extremity reviewed Wound nurse consult Continue IV vancomycin , Rocephin and oral Flagyl Wound culture : A mix of organisms of questionable significance was recovered on culture and not further identified. Growth did not detect the presence of S.aureus, beta-hemolytic Streptococci or P.aeruginosa Blood cultures preliminary shows negative Ortho consulted and follow recs MRI SHOWS : Acute to subacute fractures of the lateral malleolus and of the anterolateral aspect of the tibial plafond involving the footplate of the anterior-inferior tibiofibular ligament which is new since the MRI on 08/13/2023. Correlate for interval ankle trauma. Chronic Osteomyelitis CT shows Osteolysis with absent cortication along the plantar/lateral margin of the posterior tuberosity of the calcaneus underlying a deep ulceration and consistent with osteomyelitis as seen on prior MRI. No evident progression in the amount of osteolysis since the prior studies. No evidence of biopsy done Culture done on 08/18/23 shows Staph aureus and simpson resistant Acinetobacter Continue the current antibiotic amox clav and doxycycline. Ortho consulted and follow recs Continue conservative treatment with topical dressing changes. Offload heels per ortho recs UTI UA showed turbid appearance, 3+ urine protein, trace urine glucose, 3+ urine blood, 3+ leukocytes, greater than 100 urine RBC, greater than 100 WBC, 4+ urine bacteria, yeast present Urine culture was obtained and its contaminated Continue Amox/Clav Patient has chronic Coats which was changed while in the ED Candice albicans in urine Suspecting candidal cystitis, start fluconazole 200mg daily p.o. for 2 weeks ITS Impressions Head CT 10/26/23 13:37 Impression: No intracranial hemorrhage, mass, or acute infarct. Atrophy and chronic white matter changes, as above. Chest X-Ray 10/26/23 14:44 IMPRESSION: 1. Pulmonary vascular congestion with mild diffuse increased interstitial pattern throughout both lungs which could represent mild pulmonary edema or pneumonia.
[2023-11-02] MEDS: AMOXICILLIN/CLAVULANATE K 875-125 MG TAB 1 TABLET PO ×2 (08:26→21:07)
[2023-11-02] MEDS: buPROPion HCL XL (24 HR) 150 MG TABCR PO (08:30)
[2023-11-02] MEDS: ASPIRIN 81 MG ENTERIC TABLET PO (08:30)
[2023-11-02] MEDS: APIXABAN 5 MG TABLET PO ×2 (08:30→21:07)
[2023-11-02] MEDS: DOXYCYCLINE HYCLATE 100 MG TABLET PO ×2 (08:30→21:08)
[2023-11-02] MEDS: BETAMETHASONE/CLOTRIMAZOLE CREAM 45 GM TUBE 1 APPLIC TOPICAL (08:30)
[2023-11-02] MEDS: SENNA/DOCUSATE SODIUM TABLET 1 TAB PO ×2 (08:30→16:15)
[2023-11-02] MEDS: FUROSEMIDE INJ 40 MG/4 ML VIAL IV PUSH ×2 (08:31→16:22)
[2023-11-02] MEDS: FLUCONAZOLE 100 MG TABLET 200 MG PO (08:31)
[2023-11-02] MEDS: FAMOTIDINE 20 MG TABLET PO (08:31)
[2023-11-02] MEDS: METOPROLOL SUCCINATE EXT REL 25 MG TABCR 75 MG PO (08:31)
[2023-11-02] MEDS: polyethylene glycoL 3350 17 GM POWD.PACK PO ×2 (08:32→16:15)
[2023-11-02] MEDS: THERAPEUTIC MULTIVITAMINS/MINERALS TAB (*BKC) 1 TABLET PO (08:32)
[2023-11-02] MEDS: VALSARTAN 20 MG TABLET PO (08:32)
[2023-11-02] MEDS: POTASSIUM CHLORIDE 20 MEQ PACKET (FOR LIQUID) 40 MEQ PO (09:51)
[2023-11-02] MEDS: ACETAMINOPHEN 325 MG TABLET 650 MG PO ×2 (11:19→16:15)
[2023-11-02 11:41] LABS: Glucose Point of Care 226 mg/dl (65-105)
[2023-11-02] MEDS: INSULIN ASPART (*BKC) 100 UNITS/ML SUB-Q ×2 (11:43→16:45)
[2023-11-02] MEDS: GABAPENTIN 300 MG CAPSULE PO ×2 (16:13→21:11)
[2023-11-02 16:44] LABS: Glucose Point of Care 225 mg/dl (65-105)
[2023-11-02 20:29] LABS: Glucose Point of Care 317 mg/dl (65-105)
[2023-11-02] MEDS: HYDROcodone/acetaminophen (*CRX) 5-325 MG TABLET 1 TAB PO (21:08)
[2023-11-02] MEDS: PRAVASTATIN SODIUM 20 MG TABLET 40 MG PO (21:08)
[2023-11-03] VITALS (8 sets, daily range): BP systolic 126–181; BP diastolic 84–92; PULSE 55–83; RESP 16; TEMP 36.2–36.4; O2SAT 97
[2023-11-03] MEDS: GABAPENTIN 300 MG CAPSULE PO (06:07)
[2023-11-03] MEDS: LEVOTHYROXINE SODIUM 100 MCG TABLET PO (06:07)
[2023-11-03 06:44] LABS: Hematocrit 44.3 % (42.0-52.0); Hemoglobin 13.3 g/dL (14.0-18.0); Mean Corpuscular Hemoglobin 25.7 pg (26-34); Mean Corpuscular Volume 85.7 fl (80-100); Mean Platelet Volume 10.2 fl (7.4-10.4); Platelet Count Result 390 k/mm3 (150-375); Red Blood Count 5.17 M/mm3 (4.6-6.20); Red Cell Distribution Width 16.7 % (11.5-14.5); White Blood Count 8.6 K/mm3 (4.5-10.0)
[2023-11-03 06:45] LABS: Basophils Absolute Auto 0.1 K/mm3 (0.0-0.1); Basophils Percent Auto 0.9 % (0.2-1.2); Eosinophils Absolute Auto 0.5 K/mm3 (0-0.3); Eosinophils Percent Auto 5.9 % (0-4.4); Immature Granulocyte Absolute 0.04 K/mm3 (0.00-0.031); Immature Granulocyte Percent A 0.5 % (0-0.5); Lymphocytes Percent Auto 17.4 % (18.3-44.2); Monocytes Absolute Auto 0.8 K/mm3 (0.1-0.6); Monocytes Percent Auto 9.5 % (2.6-8.5); Neutrophils Absolute Auto 5.7 K/mm3 (1.3-6.7); Neutrophils Percent Auto 65.8 % (45.5-73.1)
[2023-11-03 06:51] LABS: Alanine Aminotransferase 11 U/L (6-50); Albumin Level 3.4 g/dL (3.5-5.1); Alkaline Phosphatase 84 U/L (38-126); Anion Gap 7 mmol/L (4-12); Aspartate Amino Transferase 24 U/L (17-59); Bilirubin,Total 0.4 mg/dL (0.2-1.3); Blood Urea Nitrogen 11 mg/dL (9-20); Calcium 9.9 mg/dL (8.4-10.2); Carbon Dioxide 28 mmol/L (22-30); Chloride 102 mmol/L (98-107); Estimated CRCL calculation 100 ml/min; Estimated Glomerular Filt Rate > 60; Glucose 221 mg/dL (65-110); Potassium 3.3 mmol/L (3.4-5.0); Sodium 137 mmol/L (137-145)
[2023-11-03 08:25] LABS: Glucose Point of Care 204 mg/dl (65-105)
[2023-11-03] MEDS: INSULIN ASPART (*BKC) 100 UNITS/ML SUB-Q ×2 (09:20→11:47)
[2023-11-03] MEDS: FLUCONAZOLE 100 MG TABLET 200 MG PO (09:21)
[2023-11-03] MEDS: METOPROLOL SUCCINATE EXT REL 25 MG TABCR 75 MG PO (09:23)
[2023-11-03] MEDS: AMOXICILLIN/CLAVULANATE K 875-125 MG TAB 1 TABLET PO (09:24)
[2023-11-03] MEDS: ASPIRIN 81 MG ENTERIC TABLET PO (09:24)
[2023-11-03] MEDS: APIXABAN 5 MG TABLET PO (09:24)
[2023-11-03] MEDS: DOXYCYCLINE HYCLATE 100 MG TABLET PO (09:25)
[2023-11-03] MEDS: SENNA/DOCUSATE SODIUM TABLET 1 TAB PO (09:25)
[2023-11-03] MEDS: buPROPion HCL XL (24 HR) 150 MG TABCR PO (09:25)
[2023-11-03] MEDS: BETAMETHASONE/CLOTRIMAZOLE CREAM 45 GM TUBE 1 APPLIC TOPICAL (09:25)
[2023-11-03] MEDS: THERAPEUTIC MULTIVITAMINS/MINERALS TAB (*BKC) 1 TABLET PO (09:26)
[2023-11-03] MEDS: FUROSEMIDE INJ 40 MG/4 ML VIAL IV PUSH (09:26)
[2023-11-03] MEDS: VALSARTAN 20 MG TABLET PO (09:26)
[2023-11-03] MEDS: polyethylene glycoL 3350 17 GM POWD.PACK PO (09:26)
[2023-11-03] MEDS: FAMOTIDINE 20 MG TABLET PO (09:26)
--- NOTE | 2023-11-03 11:26 | PCNFU ---
Nutrition Follow-Up Complete: Increased protein needs as related to wounds as evidenced by pressure ulcers reported. goal: Adequate Intake of at least 75% of meals/supplements Patient is progressing towards goal. We will continue current goal. Pt current nutrition is DBCC with Loki BID. Last recorded weight is 127.7 kg, no new weight to report. Bowel Motility: +BM 10/31 reported Labs Reviewed: Glu 221, K 3.3,Alb 3.4 Meds Noted:MVI, Lasix, NovoLog, Miralax. Skin: Deep Tissue-right heel, stage III-left heel Additional Notes: Patient remains on a DBCC diet. Oral intake has been > 75% of meals. Loki BID for additional protein needs 2/2 to wounds. Agree with diet orders. Will monitor weight, labs, skin, oral intake, meds every 5 days.
[2023-11-03 11:39] LABS: Glucose Point of Care 258 mg/dl (65-105)
--- NOTE | 2023-11-03 14:37 | PM.DS ---
DS: Admitting Diagnosis Discharge Date 11/03/23 Admitting Diagnosis AMS DS: Discharge Diagnosis Discharge Diagnosis (1) Acute metabolic encephalopathy: Code(s): G93.41 - Metabolic encephalopathy Status: Acute DS: Summary Hospital Course Hospital Course: This is a 68-year-old male with a significant past medical history of AFib, anemia, COPD, chronic venous insufficiency, depression, diastolic congestive heart failure, GERD, hyperlipidemia, hypertension, hypothyroidism, insulin-dependent diabetes mellitus, JUN, peripheral neuropathy, former smoker who presented to the hospital from his nursing facility for evaluation of altered mental status. According to the nursing staff he is normally alert and oriented x3 however today he was alert and only answered 1 or 2 questions before falling back asleep. Most of history of presenting illness was obtained from the EMR considering patient has altered mental status. Workup in the hospital included a head CT which was negative for any acute intracranial changes, showed atrophy and chronic white matter changes. Chest x-ray showed pulmonary vascular congestion with mild diffuse increased interstitial pattern throughout both lungs representing mild pulmonary edema versus pneumonia, cardiomegaly. Initial labs shown a normal white blood cell count of 9.0, hemoglobin 13.7, INR 1.4, sodium 131, chloride 95, blood sugars ranging 228-286, liver enzymes were normal, troponin was negative, proBNP 1980. UA was obtained and showed turbid appearance, 3+ urine protein, trace urine glucose, 3+ urine blood, 3+ leukocyte, greater than 100 urine RBC, greater than 100 urine WBC, 4+ bacteria, yeast was present. Blood and urine cultures were obtained and are pending. Patient was given a dose of Zofran, morphine, and Rocephin while in the ED. Upon my assessment, he was found to have bilateral lower extremity dressings with Kerlix and Coban from the knee down to both feet. Dressings were removed and revealed what looks to be like venous stasis ulcers with a pressure wound to the left heel that is oozing pus and has a foul odor. Ortho was consulted and abx whittled down to Augmentin and Doxycycline since wound culture is negative Urine culture negative, however patient was noted to be less responsive since restarting his home gabapentin and improved when he is off of it. Gabapentin was therefore decreased to 100mg bid from 300mg tid. Patient will continue to follow th PCP in 3-5 days, f/u with ortho as instructed Assessment and Plan (1) Cellulitis: Code(s): L03.90 - Cellulitis, unspecified Status: Acute Assessment and Plan: (2) Diabetic foot infection: Code(s): E11.628 - Type 2 diabetes mellitus with other skin complications; L08.9 - Local infection of the skin and subcutaneous tissue, unspecified Status: Acute Assessment and Plan: See above plan of care (3) Acute UTI: Code(s): N39.0 - Urinary tract infection, site not specified Status: Acute (4) Altered mental status: Qualifiers: Altered mental status type: unspecified Qualified Code(s): R41.82 - Altered mental status, unspecified Code(s): R41.82 - Altered mental status, unspecified Status: Acute Assessment and Plan: 10/27/23: Head CT was negative Likely secondary to acute UTI versus cellulitis infection TSH normal Continue neuro checks(5) Gastroesophageal reflux disease: Code(s): K21.9 - Gastro-esophageal reflux disease without esophagitis Status: Chronic Assessment and Plan: 10/27/23: Continue Pepcid(6) Hypertension: Code(s): I10 - Essential (primary) hypertension Status: Chronic Assessment and Plan: Continue valsartan and metoprolol 25 mg extended release(7) Hypothyroidism: Code(s): E03.9 - Hypothyroidism, unspecified Status: Chronic Assessment and Plan: Continue Synthroid(8) Hyperlipidem
[2023-11-03] MEDS: hydrALAZINE HCL 20 MG/ML VIAL 10 MG IV PUSH (15:27)
[2023-11-03] MEDS: lisinopriL 10 MG TABLET PO (15:28)
[2023-11-03 17:00] LABS: Glucose Point of Care 241 mg/dl (65-105)
== END 2023-11-03 17:25 | DRG 637 ==
LOC: ANHED 16:58 → ANH2MED 18:44
PROVIDERS: General Practice; Nurse Practitioner Acute Care; Admitting Provider Internal Medicine; Emergency Provider Family Medicine; PCP Internal Medicine; Visit Provider Internal Medicine
DX: E11.628 Type 2 diabetes mellitus with other skin complications (principal); G92.8 Other toxic encephalopathy; L89.623 Pressure ulcer of left heel, stage 3; L03.116 Cellulitis of left lower limb; T83.511A Infection and inflammatory reaction due to indwelling urethral catheter, initial encounter; I50.32 Chronic diastolic (congestive) heart failure; M86.672 Other chronic osteomyelitis, left ankle and foot; Z68.41 Body mass index [BMI] 40.0-44.9, adult; I13.0 Hypertensive heart and chronic kidney disease with heart failure and stage 1 through stage 4 chronic kidney disease, or unspecified chronic kidney disease; T42.6X5A Adverse effect of other antiepileptic and sedative-hypnotic drugs, initial encounter; E11.69 Type 2 diabetes mellitus with other specified complication; N18.32 Chronic kidney disease, stage 3b; R41.82 Altered mental status, unspecified; D64.9 Anemia, unspecified; F32.A Depression, unspecified; E11.42 Type 2 diabetes mellitus with diabetic polyneuropathy; J44.9 Chronic obstructive pulmonary disease, unspecified; I87.2 Venous insufficiency (chronic) (peripheral); K21.9 Gastro-esophageal reflux disease without esophagitis; E78.5 Hyperlipidemia, unspecified; E03.9 Hypothyroidism, unspecified; I48.0 Paroxysmal atrial fibrillation; L89.619 Pressure ulcer of right heel, unspecified stage; G47.33 Obstructive sleep apnea (adult) (pediatric); E66.01 Morbid (severe) obesity due to excess calories; Z87.891 Personal history of nicotine dependence; Z91.199 Patient's noncompliance with other medical treatment and regimen due to unspecified reason; Z90.49 Acquired absence of other specified parts of digestive tract; Z98.49 Cataract extraction status, unspecified eye; Z79.82 Long term (current) use of aspirin
CPT/HCPCS: 36415; 70450; 71045; 73590; 73610; 73630; 73701; 80048; 80053; 80202; 81001; 82948; 83605; 83880; 84145; 84443; 84484; 85025; 85610; 85652; 86140; 87040; 87070; 87086; 87088; 87205; 87641; 96365; 96375; 99285; A9270; C8929; J0360; J0696; J1650; J1815; J1836; J1940; J2060; J2250; J2270; J2405; J3370; J7030; Q9957; Q9967

== ENCOUNTER 2023-11-30 14:25 | Inpatient (IN) | payer MEDICARE, MEDICAID, SELFPAY ==
[2023-11-30] VITALS (7 sets, daily range): BP systolic 146–170; BP diastolic 87–109; PULSE 84–134; RESP 16–20; TEMP 36.4–36.8; O2SAT 95–99; BMI 35.4
--- NOTE | ~2023-11-30 | CT_ITS ---
EXAMINATION: CT chest abdomen pelvis w con DATE: 11/30/2023 17:08 INDICATION: Chest and abdominal pain. TECHNIQUE: Computed tomography (CT) of the chest, abdomen, and pelvis was performed with 100 mL Omnip aque 350 intravenous contrast. Automated exposure control and iterative reconstruction technique were employed. The dose-length product was 1903.07 mGy-cm. COMPARISON: None FINDINGS: CHEST CT: Motion artifact is noted. The lungs demonstrate mild atelectasis. No pleural effusion. Cardiomegaly i s noted. No pericardial effusion. Pectus excavatum is noted. There is bilateral gynecomastia. There i s a small sliding hiatal hernia. There is severe cervical spondylosis and moderate thoracic spondylos is. There is mild chronic anterior wedging of T11 and T12 vertebral bodies. ABDOMEN/PELVIS CT: The liver and spleen are normal. There are gallstones in the gallbladder, which is distended. The simpson creas and left adrenal gland are normal. There is a 2.1 cm mass of fat in right adrenal gland, consis tent with a myelolipoma. There is cortical thinning of the kidneys. There is a 16 mm hemorrhagic cyst in left kidney. There is a 14 mm cyst in left kidney. There are approximately 3 stones in right kidn ey measuring up to 3.3 cm. There is gas in the calyces of right kidney. There is gas in the right ure ter and in the bladder. There is urothelial thickening in right renal pelvis, consistent with pyeliti s. There is a Coats catheter in expected position. The prostate is mildly enlarged. There is divertic ulosis of the colon without evidence of diverticulitis. The appendix is not visualized. There are no dilated loops of bowel. There are no pathologically enlarged lymph nodes. There is no free intraperit ceron fluid. There is moderate lumbar spondylosis. IMPRESSION: 1. Cholelithiasis. Gallbladder distention may be secondary to fasting or acute cholecystitis. Correla te with physical exam. 2. Right-sided pyelitis. 3. Nonobstructing right kidney stones. Gas in the right calyces and right ureter may be secondary to reflux from the bladder or from infection. 4. Small sliding hiatal hernia. Reviewed, dictated and finalized at location A. IMPRESSION: 1. Cholelithiasis. Gallbladder distention may be secondary to fasting or acute cholecystitis. Correlate with physical exam. 2. Right-sided pyelitis. 3. Nonobstructing right kidney stones. Gas in the right calyces and right urete r may be secondary to reflux from the bladder or from infection. 4. Small sliding hiatal hernia.
--- NOTE | ~2023-11-30 | CT_ITS ---
EXAMINATION: CT brain wo con DATE: 11/30/2023 17:07 INDICATION: AMS . TECHNIQUE: Computed tomography (CT) of the head was performed without intravenous contrast. The mA wa s adjusted according to patient size. Iterative reconstruction technique was employed. The dose-lengt h product was 1362.00 mGy-cm. COMPARISON: 10/26/2023. FINDINGS: Motion limited examination. Suboptimal visualization of the base of the skull. No acute intracranial hemorrhage or extra-axial fluid collection. No hydrocephalus, mass, or herniation. No acute ischemic infarct. Unremarkable dural venous sinus attenuation. No acute osseous abnormality. The aerated spaces are clear, within the limits of the motion artifact. Moderate atrophy and chronic white matter change. Atherosclerotic intracranial calcification. Left le ns replacement. IMPRESSION: No acute intracranial process. Reviewed, dictated and finalized at location K.
--- NOTE | 2023-11-30 14:48 | ECG_ITS ---
Test Date: 2023-11-30 16:42:36 Measurements Intervals [place] Rate: 96 P: 0 IL: 0 QRS: 81 QRSD: 114 T: -18 QT: 362 QTc: 459 Interpretive Statements ATRIAL FIBRILLATION INTRAVENTRICULAR CONDUCTION DELAY CANNOT R/O SEPTAL INFARCT, AGE INDETERMINATE BORDERLINE ST-T WAVE ABNORMALITY- INFERIOR LEADS BASELINE ARTIFACT- I, II, III, AVR, AVL, V1-V3 ABNORMAL ECG Compared to ECG 08/07/2023 10:35:05 HEART RATE HAS DECREASED Electronically Signed On 11-30-2023 16:50:13 CDT by Silver Torres D.O.
--- NOTE | 2023-11-30 15:03 | ED_ITS ---
HPI - Altered Mental Status General Chief Complaint: Altered Mental Status Stated Complaint: AMS Time Seen by Provider: 11/30/23 14:48 History of Present Illness HPI narrative: 68-year-old male presents to the emergency department for evaluation of altered mental status. Staff was unsure of his last known normal. Patient is typically A&O x3 at baseline. Staff states that the patient has simply been yelling this morning. Upon arrival to the emergency department patient does continue to yell but does respond to verbal interaction. Patient hard of hearing and appears to be unaware that he is yelling. Patient states he is having pain everywhere. Patient does have history of AFib with RVR and takes a beta-cira. Patient arrives the emergency department AFib with RVR with heart rate in the 130s. Related Data Home Medications Medication Instructions Recorded Confirmed ipratropium 0.5 mg-albuterol 3 mg 3 ml inhalation Q4H PRN Wheezing 02/15/21 11/30/23 (2.5 mg base)/3 mL nebulization soln levothyroxine 100 mcg tablet 100 mcg PO DAILY 02/15/21 11/30/23 pravastatin 40 mg tablet 40 mg PO HS 12/08/21 11/30/23 multivitamin with minerals-folic 1 tablet PO DAILY 03/02/22 11/30/23 acid 0.4 mg tablet acetaminophen 325 mg capsule 650 mg PO Q4-6H PRN Pain (Scale 09/10/22 11/30/23 (Tylenol) Score 1-3) sennosides 8.6 mg-docusate sodium 1 tablet PO BID 09/10/22 11/30/23 50 mg tablet (Senna Plus) melatonin 5 mg tablet 5 mg PO HS 03/10/23 11/30/23 famotidine 20 mg tablet 20 mg PO DAILY 08/07/23 11/30/23 hydrocodone 5 mg-acetaminophen 325 1 tablet PO Q8H PRN Pain (Scale 08/07/23 11/30/23 mg tablet Score 4-6) insulin NPH-regular 70-30 U-100 15 unit subcut HS 08/07/23 11/30/23 insulin 100 unit/mL subcutaneous pen (Novolin 70-30 FlexPen U-100 Insulin) insulin NPH-regular 70-30 U-100 25 unit subcut [facility] 08/07/23 11/30/23 insulin 100 unit/mL subcutaneous pen (Novolin 70-30 FlexPen U-100 Insulin) magnesium oxide 400 mg (241.3 mg 400 mg PO 1200 08/07/23 11/30/23 magnesium) tablet nystatin 100,000 unit/gram topical 1 applic topical BID 11/30/23 11/30/23 cream Allergies Allergy/AdvReac Type Severity Reaction Status Date / Time No Known Allergies Allergy Verified 11/30/23 15:10 Review of Systems Review of Systems: All systems reviewed & are unremarkable except as noted in HPI and below [facility] Past Medical History Medical History (Updated 11/30/23 @ 23:10 by Shay Chisholm MD) A-fib Choledocholithiasis (05/2022) Chronic indwelling [place] catheter Chronic obstructive pulmonary disease Chronic osteomyelitis of left foot Chronic venous insufficiency Depression Diastolic congestive heart failure Gastroesophageal reflux disease Hyperlipidemia Hypertension Hypothyroidism Insulin dependent diabetes mellitus Kidney stones Morbid obesity Obstructive sleep apnea Non-compliant with CPAP. Paroxysmal atrial fibrillation Peripheral neuropathy Surgical History Surgical History History of appendectomy History of back surgery History of cataract extraction History of hemorrhoidectomy History of tonsillectomy and adenoidectomy Family History Family History Sibling Family history of obesity Hypertension Family history of diabetes mellitus in first degree relative Family history of heart disease in male family member before age 55 Patient's sister is in good health Patient's brother is Mother Family history of arthritis Family history of malignant neoplasm Patient's mother is Father Patient's father is Other Malignant neoplasm of prostate Social History Social History (Updated 11/30/23 @ 21:44 by Tiffanie Martinez DO) Social History: Surrogate medical decision maker: Marlys Marrero, . Code status: Full code. Smoking packs per day: 1.5 Smoking cigarettes per day: 30.0 Years smoked: 15 Smoking pack-years: 22.50 Smoking status: Former smoker Tobacco type: cigarettes Second hand tobacco smoke exposure: Yes Alcohol intake: unknown Substance use: unknown Substance use type: unknown Lack of Transportation: No Lack of Food: Never True Current Housing: I Have Housing Concerned About Future Housing: No Difficulty Paying Gas/Electric Bills: No Difficulty Paying for Meds: No Currently Unemployed: No Education: High School Diploma/GED Difficulty w/ Childcare or Family Care: No Living arrangements: group home Additional living arrangements comments: Resident at [facility]. to Marlys. They have 2 sons. 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 Spiritual care concerns: No Agree to blood products: Yes Exam Narrative: APPEARANCE: Alert and yelling HEAD: normocephalic, atraumatic. EYES: PERRLA/EOMI, conjunctivae clear. NOSE: Normal no drainage EARS:TMS clear with good light reflex. THROAT: Pharynx clear, no exudate. NECK: Supple. No adenopathy, no masses. RESPIRATORY: Airway patent, respirations nonlabored. Clear to auscultation bilaterally, no rales, rhonchi, wheezing. CARDIOVASCULAR: Regular rate and rhythm without murmurs rubs or gallops. ABDOMINAL: Soft, nontender, nondistended, normal bowel sounds MUSCULOSKELETAL: Moves all extremities. Strength/ROM intact, No edema, No calf tenderness. NEURO: Alert. Cranial nerves II through XII intact. Grossly intact SKIN: Warm, dry. Normal Color Course Vital Signs Vital signs: Vital Signs Temperature 97.6 F 11/30/23 14:26 Pulse Rate 120 H 11/30/23 14:26 Respiratory Rate 16 11/30/23 14:26 Blood Pressure 163/105 H 11/30/23 14:26 Pulse Oximetry 95 11/30/23 14:26 Oxygen Delivery Room Air 11/30/23 14:26 Temperature 98.2 F 11/30/23 22:00 Pulse Rate 100 11/30/23 22:00 Respiratory Rate 20 11/30/23 22:00 Blood Pressure 153/109 H 11/30/23 22:00 Pulse Oximetry 99 11/30/23 22:00 Oxygen Delivery Room Air 11/30/23 14:26 MDM - Altered Mental Status MDM Narrative Medical decision making narrative: 60-year-old male presents emergency department for evaluation for altered mental status. Patient is afebrile but does have a leukocytosis of 14.3. Patient's hemoglobin is stable at 14.7. Patient has no acute abnormalities on his CMP with no elevation in T bili AST ALT alk-phos. Patient's urine is concerning for urinary tract infection as it is nitrate positive and leuk esterase positive. Patient has negative influenza RSV and COVID. Urine cultures are pending. Patient was started on Rocephin in the emergency department. Head CT was negative for acute intracranial abnormality. CT chest abdomen pelvis did show evidence of pyelitis. Cholelithiasis but patient has no elevation in liver enzymes. Case was discussed with hospitalist patient was accepted for admission. Patient was having AFib with RVR and does take metoprolol. Patient was treated with 5 mg of IV Lopressor this did help to control his rate. Differential Diagnosis Differential diagnosis: Likely altered mental status and delirium Lab Data Attestation: I reviewed the patient's lab results. 11/30/23 15:02 11/30/23 15:02 Labs: Lab Results 11/30/23 Range/Units 15:02 WBC 14.3 H (4.5-10.0) K/mm3 RBC 5.76 (4.6-6.20) M/mm3 Hgb 14.7 (14.0-18.0) g/dL Hct 49.1 (42.0-52.0) % MCV 85.2 (80-100) fl MCH 25.5 L (26-34) pg MCHC 29.9 L (32-36) g/dl RDW 16.3 H (11.5-14.5) % Plt Count 326 (150-375) k/mm3 MPV 10.6 H (7.4-10.4) fl Immature Gran % (Auto) 0.3 (0-0.5) % Neut % (Auto) 82.4 H (45.5-73.1) % Lymph % (Auto) 7.2 L (18.3-44.2) % [place] % (Auto) 7.9 (2.6-8.5) % Eos % (Auto) 1.7 (0-4.4) % Baso % (Auto) 0.5 (0.2-1.2) % Lymph # (Auto) 1.03 (0.9-3.2) K/mm3 [place] # (Auto) 1.1 H (0.1-0.6) K/mm3 Eos # (Auto) 0.3 (0-0.3) K/mm3 Baso # (Auto) 0.1 (0.0-0.1) K/mm3 Abs Immat Gran (auto) 0.04 H (0.00-0.031) K/mm3 Absolute Neuts (auto) 11.8 H (1.3-6.7) K/mm3 Absolute Nucleated RBC 0.000 (0.0-0.012) K/mm3 Nucleated RBC % 0.0 (0.0-0.2) % PT 16.5 H (11.1-14.7) Seconds INR 1.3 APTT 35.4 (22.3-36.8) Seconds Sodium 134 L (137-145) mmol/L Potassium 3.6 (3.4-5.0) mmol/L Chloride 99 (98-107) mmol/L Carbon Dioxide 28 (22-30) mmol/L Anion Gap 7 (4-12) mmol/L BUN 15 (9-20) mg/dL Creatinine 0.90 (0.7-1.3) mg/dL Estim Creat Clear Calc Not Reportable Estimated GFR > 60 (59 - ) Glucose 324 H (65-110) mg/dL Calcium 9.6 (8.4-10.2) mg/dL Total Bilirubin 0.4 (0.2-1.3) mg/dL AST 25 (17-59) U/L ALT 13 (6-50) U/L Alkaline Phosphatase 101 (38-126) U/L Total Protein 8.0 (6.3-8.2) g/dL Albumin 3.5 (3.5-5.1) g/dL Urine Color Yellow (Yellow) Urine Appearance Turbid H (Clear) Urine pH 6.0 (5.0-9.0) Ur Specific [place] 1.026 (1.001-1.035) Urine Protein 4+ H (Negative) mg/dL Urine Glucose (UA) 3+ H (Negative) mg/dL Urine Ketones Negative (Negative) mg/dL Ur Blood (Man) 3+ H (Negative) Urine Nitrate Positive H (Negative) Urine Bilirubin Negative (Negative) Urine Urobilinogen 1.0 (<2.0) mg/dL Leukocyte Esterase Rfl 2+ H (Negative) RAZ/UL Influenza A (RT-PCR) Negative (Negative) Influenza B (RT-PCR) Negative (Negative) RSV (RT-PCR) Negative (Negative) SARS-CoV-2 RNA (RT-PCR) Negative (Negative) Imaging Data Radiologist's impression: Impressions Head CT 11/30/23 17:10 IMPRESSION: No acute intracranial process. Chest/Abdomen/Pelvis CT 11/30/23 17:24 IMPRESSION: 1. Cholelithiasis. Gallbladder distention may be secondary to fasting or acute cholecystitis. Correlate with physical exam. 2. Right-sided pyelitis. 3. Nonobstructing right kidney stones. Gas in the right calyces and right ureter may be secondary to reflux from the bladder or from infection. 4. Small sliding hiatal hernia. Critical Care Time Critical Care Time Critical Care Time: Yes Total Critical Care Time: 35 Discharge Plan Discharge Clinical Impression: Urinary tract infection, Atrial fibrillation with rapid ventricular response AMS (altered mental status) Qualifiers: Altered mental status type: delirium Qualified Code(s): R41.0 - Disorientation, unspecified Patient Disposition: Still a Patient Condition: Serious
[2023-11-30] MEDS: SODIUM CHLORIDE 0.9% IV 1,000 ML 250 ML IV CONT (15:11)
[2023-11-30 15:12] LABS: Basophils Absolute Auto 0.1 K/mm3 (0.0-0.1); Basophils Percent Auto 0.5 % (0.2-1.2); Eosinophils Absolute Auto 0.3 K/mm3 (0-0.3); Eosinophils Percent Auto 1.7 % (0-4.4); Hematocrit 49.1 % (42.0-52.0); Hemoglobin 14.7 g/dL (14.0-18.0); Immature Granulocyte Absolute 0.04 K/mm3 (0.00-0.031); Immature Granulocyte Percent A 0.3 % (0-0.5); Lymphocytes Absolute Auto 1.03 K/mm3 (0.9-3.2); Lymphocytes Percent Auto 7.2 % (18.3-44.2); Mean Corpuscular HGB Conc 29.9 g/dl (32-36); Mean Corpuscular Hemoglobin 25.5 pg (26-34); Mean Corpuscular Volume 85.2 fl (80-100); Mean Platelet Volume 10.6 fl (7.4-10.4); Monocytes Absolute Auto 1.1 K/mm3 (0.1-0.6); Monocytes Percent Auto 7.9 % (2.6-8.5); Neutrophils Absolute Auto 11.8 K/mm3 (1.3-6.7); Neutrophils Percent Auto 82.4 % (45.5-73.1); Platelet Count Result 326 k/mm3 (150-375); Red Blood Count 5.76 M/mm3 (4.6-6.20); Red Cell Distribution Width 16.3 % (11.5-14.5); White Blood Count 14.3 K/mm3 (4.5-10.0)
[2023-11-30] MEDS: MORPHINE SULFATE (*CRX) 2 MG/ML INJ IV PUSH (15:13)
[2023-11-30] MEDS: METOPROLOL TARTRATE INJ 5 MG/5 ML VIAL IV PUSH (15:14)
--- NOTE | 2023-11-30 15:26 | PC.NURSE ---
Patient [place] catheter replaced upon arrival to the ED
[2023-11-30 15:30] LABS: Add Urine Microscopic? YES; Appearance Urine Turbid (Clear); Bilirubin Urine Negative (Negative); Blood Urine 3+ (Negative); Color Urine Yellow (Yellow); Glucose Urine UA 3+ mg/dL (Negative); Ketones Urine Negative (Negative); Leukocyte Esterase Ur 2+ LEU/UL (Negative); Nitrate Urine Positive (Negative); Protein Urine 4+ mg/dL (Negative); Specific Grav Ur 1.026 (1.001-1.035)
[2023-11-30 15:31] LABS: INR 1.3; Prothrombin Time 16.5 Seconds (11.1-14.7)
[2023-11-30 15:32] LABS: Partial Thromboplastin Time 35.4 Seconds (22.3-36.8)
[2023-11-30 15:48] LABS: Influenza A QL RT-PCR Negative (Negative); Influenza B QL RT-PCR Negative (Negative); RSV RNA, RT-PCR Negative (Negative); SARS-CoV-2 RNA PCR Negative (Negative)
[2023-11-30 16:14] LABS: Alanine Aminotransferase 13 U/L (6-50); Albumin Level 3.5 g/dL (3.5-5.1); Alkaline Phosphatase 101 U/L (38-126); Anion Gap 7 mmol/L (4-12); Aspartate Amino Transferase 25 U/L (17-59); Bilirubin,Total 0.4 mg/dL (0.2-1.3); Blood Urea Nitrogen 15 mg/dL (9-20); Calcium 9.6 mg/dL (8.4-10.2); Carbon Dioxide 28 mmol/L (22-30); Chloride 99 mmol/L (98-107); Estimated Glomerular Filt Rate > 60; Glucose 324 mg/dL (65-110); Potassium 3.6 mmol/L (3.4-5.0); Sodium 134 mmol/L (137-145)
--- NOTE | 2023-11-30 19:49 | ADMGEN ---
This patient, Taye Marrero Jr., was admitted to Medical Room 244-. Patient/family oriented to hospital policies and general routines including ID bracelet, bed and alarms, visiting hours, pain management, procedures, bathroom and other care routines, personal items, smoking policy, room service/diet, and visiting hours. Information on how to activate the Rapid Response Team has been discussed. Patient/Family are encouraged to report perceived risks to care and to ask questions if they do not understand what they are told or what they should do.
[2023-11-30 21:06] LABS: Glucose Point of Care 233 mg/dl (65-105)
--- NOTE | 2023-11-30 21:32 | P.HP_ITS ---
H&P: HPI History of Present Illness Date/Time: 11/30/23 21:32 Chief Complaint: Yelling out Narrative: 68-year-old male with past medical history of paroxysmal atrial fibrillation, diastolic heart failure, insulin-dependent diabetes mellitus, hypothyroidism, essential hypertension, untreated obstructive sleep apnea, chronic venous stasis dermatitis with wounds, chronic indwelling Coats catheter among other multiple cor morbidities who presented to the hospital from [facility] via EMS due to change in mental status were patient is yelling out. longterm staff reported that the patient is usually alert orient x3 but patient has been admitted to the hospital numerous times and is usually not alert oriented on admission. The patient was afebrile on presentation. In the ER he was and AFib RVR but heart rate improved after IV Lopressor x1. His blood pressures were elevated but into the 160s and 170s systolic. There was no evidence of respiratory distress. The patient has chronic indwelling Coats catheter was changed in the ER after UA demonstrated positive nitrates 2+ esterase and turbid appearing urine. At the time of my evaluation the patient was markedly alert and looking around the room. He was trying to participate in conversation but was so confused he could only tell me his nickname was Roscoe and that his real name is Taye. He could not tell me his last name. But he could follow commands including the usual commands for exam. Although he is markedly hard of hearing which impaired communication and made assessment difficult. After my evaluation after we had exited the room the patient was randomly yelling out every once in a while. When nursing staff would stick there head into the room the patient would not even realize that he yelled out in would ask the nurse ?what?. The bedside nurse that is taking care patient states that just before discharge during his last hospitalization the patient was more conversant but was still only alert orient x2. I suspect that the patient usually is alert oriented to person and place and can carry on conversations but may not necessarily be oriented to time at baseline but this is a supposition. Review of Systems Review of Systems: ROS unobtainable: Yes unobtainable due to mental status [facility] Past Medical History Medical History (Updated 12/01/23 @ 08:28 by Tiffanie Martinez DO) A-fib Choledocholithiasis (05/2022) Chronic indwelling Coats catheter Chronic obstructive pulmonary disease Chronic osteomyelitis of left foot Chronic venous insufficiency Depression Diastolic congestive heart failure Gastroesophageal reflux disease Hyperlipidemia Hypertension Hypothyroidism Insulin dependent diabetes mellitus Kidney stones Morbid obesity Obstructive sleep apnea Non-compliant with CPAP. Paroxysmal atrial fibrillation Peripheral neuropathy Surgical History Surgical History (Updated 12/01/23 @ 08:34 by Tiffanie Martinez DO) History of abdominal surgery The patient has a large scar in the right lower abdomen just above the right groin and on palpation of his abdomen he has what feels like mesh that extends from side to side and has a course rough texture it also extends from just under the umbilicus to a couple of inches above the pubis History of appendectomy History of back surgery History of cataract extraction History of hemorrhoidectomy History of tonsillectomy and adenoidectomy Family History Family History Sibling Family history of obesity Hypertension Family history of diabetes mellitus in first degree relative Family history of heart disease in male family member before age 55 Patient's sister is in good health Patient's brother is Mother Family history of arthritis Family history of malignant neoplasm Patient's mother is Father Patient's father is Other Malignant neoplasm of prostate Social History Social History Social History: Surrogate medical decision maker: Marlys Marrero, . Code status: Full code. Smoking packs per day: 1.5 Smoking cigarettes per day: 30.0 Years smoked: 15 Smoking pack-years: 22.50 Smoking status: Former smoker Tobacco type: cigarettes Second hand tobacco smoke exposure: Yes Alcohol intake: unknown Substance use: unknown Substance use type: unknown Lack of Transportation: No Lack of Food: Never True Current Housing: I Have Housing Concerned About Future Housing: No Difficulty Paying Gas/Electric Bills: No Difficulty Paying for Meds: No Currently Unemployed: No Education: High School Diploma/GED Difficulty w/ Childcare or Family Care: No Living arrangements: custodial Additional living arrangements comments: Resident at [facility]. to Marlys. They have 2 sons. 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 Spiritual care concerns: No Agree to blood products: Yes Meds Home Medications and Allergies Home Medications Medication Instructions Recorded Confirmed Type ipratropium 0.5 mg-albuterol 3 mg 3 ml inhalation Q4H PRN Wheezing 02/15/21 11/30/23 History (2.5 mg base)/3 mL nebulization soln levothyroxine 100 mcg tablet 100 mcg PO DAILY 02/15/21 11/30/23 History aspirin 81 mg tablet,delayed 81 mg PO QAM #30 tabs 02/19/21 11/30/23 Rx release pravastatin 40 mg tablet 40 mg PO HS 12/08/21 11/30/23 History multivitamin with minerals-folic 1 tablet PO DAILY 03/02/22 11/30/23 History acid 0.4 mg tablet apixaban 5 mg tablet (Eliquis) 5 mg PO Q12HR #60 tabs 07/01/22 11/30/23 Rx acetaminophen 325 mg capsule 650 mg PO Q4-6H PRN Pain (Scale 09/10/22 11/30/23 History (Tylenol) Score 1-3) sennosides 8.6 mg-docusate sodium 1 tablet PO BID 09/10/22 11/30/23 History 50 mg tablet (Senna Plus) melatonin 5 mg tablet 5 mg PO HS 03/10/23 11/30/23 History bupropion HCl 150 mg 24 hr tablet, 150 mg PO QAM #30 tabs 05/23/23 11/30/23 Rx extended release valsartan 40 mg tablet 20 mg PO DAILY #30 tabs 05/23/23 11/30/23 Rx lanolin alcohols-mineral 1 applic topical DAILY #113 grams 06/26/23 11/30/23 Rx oil-w.petrolatum-ceresin topical cream (Minerin Creme topical) polyethylene glycol 3350 17 gram 17 g PO BID #30 ea 06/26/23 11/30/23 Rx oral powder packet (Miralax) famotidine 20 mg tablet 20 mg PO DAILY 08/07/23 11/30/23 History hydrocodone 5 mg-acetaminophen 325 1 tablet PO Q8H PRN Pain (Scale 08/07/23 11/30/23 History mg tablet Score 4-6) insulin NPH-regular 70-30 U-100 15 unit subcut HS 08/07/23 11/30/23 History insulin 100 unit/mL subcutaneous pen (Novolin 70-30 FlexPen U-100 Insulin) insulin NPH-regular 70-30 U-100 25 unit subcut QAM 08/07/23 11/30/23 History insulin 100 unit/mL subcutaneous pen (Novolin 70-30 FlexPen U-100 Insulin) magnesium oxide 400 mg (241.3 mg 400 mg PO 1200 08/07/23 11/30/23 History magnesium) tablet metoprolol succinate 25 mg 75 mg PO QAM #90 tabs 08/18/23 11/30/23 Rx tablet,extended release 24 hr (Toprol XL) gabapentin 100 mg capsule 100 mg PO BID #20 caps 11/03/23 11/30/23 Rx lisinopril 10 mg tablet 10 mg PO DAILY #30 tabs 11/03/23 11/30/23 Rx nystatin 100,000 unit/gram topical 1 applic topical BID 11/30/23 11/30/23 History cream Allergies Allergy/AdvReac Type Severity Reaction Status Date / Time No Known Allergies Allergy Verified 11/30/23 15:10 Vital Signs Vital Signs - 24 hr 11/30/23 14:26 11/30/23 15:07 11/30/23 15:14 Temperature 97.6 F Pulse Rate 120 H 123 H 134 H Respiratory Rate 16 20 Blood Pressure 163/105 H 170/93 H Pulse Oximetry 95 95 Oxygen Delivery Room Air 11/30/23 16:25 11/30/23 19:15 Temperature 98 F Pulse Rate 84 89 Respiratory Rate 18 17 Blood Pressure 146/99 H 164/87 H Pulse Oximetry 95 97 Oxygen Delivery Exam Narrative: Weight 118 kg BMI 35.5 Const: Other: Chronically ill-appearing, obese, no acute distress, sitting up in bed with bed at 60? HENMT: Other: Head is normocephalic atraumatic, mucous membranes are tacky, no oral pharyngeal erythema, crowded posterior oropharynx Eyes: Other: Pupils are equal and reactive, no scleral icterus, no conjunctival pallor, extraocular movements intact Neck: Other: Supple, no JVD, nontender Resp: Other: Decreased breath sounds at the bases, no increased work of breathing Cardio: Other: Regular rate, regular rhythm, 2+ bilateral radial pulses, 1+ pedal pulses bilateral, no murmur GI: Other: Obese, nontender, positive bowel sounds, the patient has what feels like mesh underlying his anterior abdominal wall : Other: Coats catheter in place, cloudy turbid pale yellow urine present in the catheter bag, scrotal erythema Skin: Other: Patient has black eschar on the medial right 2nd toe at the tip of the toe and between the toes with what appears to be dry blood in the webbing between the great toe and 2nd toe, the 4th toe on the right foot had the toenail lifted up from the base in only attached by a sliver of skin at the base which I removed at bedside. The patient had no sensation or distress at the time of removal, there was no bleeding, the base of the toe has either dried blood her eschar of the on the nail bed, patient has chronic venous stasis changes bilateral lower extremities with violaceous color to underlying skin with a white overlay of the skin, no increased warmth of either extremity, color changes or circumferential Neuro: Other: The patient is vigorously alert sitting up and attempts to answer questions with staff however communication is difficult due to the patient's severe hearing loss, the patient is confused in alert only to name, he moves bilateral upper extremities equally, he follows all commands as long as he can understand the commands once he can hear them, he does not know his last name, he does not seem to be aware that he is in the hospital, but he is pleasant and cooperative, he has no obvious facial asymmetry, cranial nerves 2-12 appear to be grossly intact no obvious acute localizing neurologic deficits, decreased sensation in the feet bilaterally consistent with history of peripheral neuropathy Extrem: Other: Chronic venous stasis changes of lower extremities with [place] nonpitting edema feet and up to the legs, there are evans on the patient's skin from where he has compression dressings on at the nursing facility, wounds as discussed above, 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 Psych: Other: Pleasantly confused and cooperative, poor judgment and insight H&P: Results Labs Labs: Laboratory Tests 11/30/23 15:02 11/30/23 15:02 11/30/23 11/30/23 15:02 19:58 WBC 14.3 H RBC 5.76 Hgb 14.7 Hct 49.1 MCV 85.2 MCH 25.5 L MCHC 29.9 L RDW 16.3 H Plt Count 326 MPV 10.6 H Immature Gran % (Auto) 0.3 Neut % (Auto) 82.4 H Lymph % (Auto) 7.2 L Logan % (Auto) 7.9 Eos % (Auto) 1.7 Baso % (Auto) 0.5 Lymph # (Auto) 1.03 Logan # (Auto) 1.1 H Eos # (Auto) 0.3 Baso # (Auto) 0.1 Abs Immat Gran (auto) 0.04 H Absolute Neuts (auto) 11.8 H Absolute Nucleated RBC 0.000 Nucleated RBC % 0.0 PT 16.5 H INR 1.3 APTT 35.4 Sodium 134 L Potassium 3.6 Chloride 99 Carbon Dioxide 28 Anion Gap 7 BUN 15 Creatinine 0.90 Estim Creat Clear Calc Not Reportable Estimated GFR > 60 Glucose 324 H POC Capillary Glucose 233 H Calcium 9.6 Total Bilirubin 0.4 AST 25 ALT 13 Alkaline Phosphatase 101 Total Protein 8.0 Albumin 3.5 Urine Color Yellow Urine Appearance Turbid H Urine pH 6.0 Ur Specific Luther 1.026 Urine Protein 4+ H Urine Glucose (UA) 3+ H Urine Ketones Negative Ur Blood (Man) 3+ H Urine Nitrate Positive H Urine Bilirubin Negative Urine Urobilinogen 1.0 Leukocyte Esterase Rfl 2+ H Influenza A (RT-PCR) Negative Influenza B (RT-PCR) Negative RSV (RT-PCR) Negative SARS-CoV-2 RNA (RT-PCR) Negative Impressions Head CT 11/30/23 17:10 IMPRESSION: No acute intracranial process. Chest/Abdomen/Pelvis CT 11/30/23 17:24 IMPRESSION: 1. Cholelithiasis. Gallbladder distention may be secondary to fasting or acute cholecystitis. Correlate with physical exam. 2. Right-sided pyelitis. 3. Nonobstructing right kidney stones. Gas in the right calyces and right ureter may be secondary to reflux from the bladder or from infection. 4. Small sliding hiatal hernia. EKG: Personally reviewed and interpreted agree with cardiology interpretation me that is listed below Measurements Intervals [place] Rate: 96 P: 0 OH: 0 QRS: 81 QRSD: 114 T: -18 QT: 362 QTc: 459 Interpretive Statements ATRIAL FIBRILLATION INTRAVENTRICULAR CONDUCTION DELAY CANNOT R/O SEPTAL INFARCT, AGE INDETERMINATE BORDERLINE ST-T WAVE ABNORMALITY- INFERIOR LEADS BASELINE ARTIFACT- I, II, III, AVR, AVL, V1-V3 ABNORMAL ECG Compared to ECG 08/07/2023 10:35:05 HEART RATE HAS DECREASED Assessment and Plan Assessment and plan (1) Emphysematous pyelitis: Code(s): N12 - Tubulo-interstitial nephritis, not specified as acute or chronic Status: Acute (2) AMS (altered mental status): Qualifiers: Altered mental status type: delirium Qualified Code(s): R41.0 - Disorientation, unspecified Code(s): R41.82 - Altered mental status, unspecified Status: Acute (3) Chronic indwelling Coats catheter: Code(s): Z97.8 - Presence of other specified devices Status: Acute (4) Type 2 diabetes mellitus with hyperglycemia, with long-term current use of insulin: Code(s): E11.65 - Type 2 diabetes mellitus with hyperglycemia; Z79.4 - 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 Patient's catheter was exchanged in the ER. The patient was started on empiric antibiotic therapy with Rocephin in the ER. But on review of the patient's prior cultures the patient had prior infections with E coli that was multidrug resistant in the past. Will stop Rocephin at this time and place patient on meropenem. Awaiting blood cultures and urine culture result. I suspect the patient also has some degree of dehydration as patient hemoglobin is relatively elevated compared to his baseline. There is some relative hemoconcentration. Will continue IV fluid hydration overnight and then re-evaluate patient patient's fluid status. I do not want to continue IV fluid hydration for long- term but he would likely benefit from at least fluids overnight. The patient did also have elevated heart rate above his baseline with his AFib being RVR. However his heart rate did improve after IV fluids. I also suspect the patient may not have received his metoprolol succinate at the custodial due to his altered mental status prior to admitting sent to the ER. Will resume patient's home metoprolol and monitor. The patient's heart rate has improved currently and will monitor on telemetry. Will continue home Eliquis. The patient did have some moderate hyperglycemia in the ER. Will resume the patient's home 70 30 insulin. Again the patient did not receive his evening dose of insulin and he may not have received his morning dose as well. His his glucoses may also be elevated due to possible acute infection. Will place patient on sliding scale insulin with Accu-Cheks a.c. HS and hypoglycemia protocol. Quality VTE Prophylaxis VTE prophylaxis: pharmacologic ordered (Continue home Eliquis.) Hospitalist [facility] Advance Care Plan I have confirmed that the patient's Advanced Care Plan is present, code status is documented, or surrogate decision maker is listed in patient medical record.: Yes Medication Reconciliation I have utilized all available resources to obtain, update and review the patients current medications (includes all prescriptions, OTC, herbals, cannabis, and nutritional supplements).: Yes
[2023-11-30] MEDS: MEROPENEM 1 GM/NS 100 ML 1 GM/100 ML BAG IVPB (22:12)
[2023-11-30] MEDS: SODIUM CHLORIDE 0.9% IV 1,000 ML 100 ML IV CONT (22:31)
[2023-12-01] VITALS (12 sets, daily range): BP systolic 150–177; BP diastolic 91–105; PULSE 56–102; RESP 16–18; TEMP 36.4–36.9; O2SAT 97–100; BMI 35.4
[2023-12-01 05:32] LABS: Glucose Point of Care 184 mg/dl (65-105)
[2023-12-01] MEDS: MEROPENEM 1 GM/NS 100 ML 1 GM/100 ML BAG IVPB ×3 (05:52→21:07)
[2023-12-01 06:31] LABS: Basophils Absolute Auto 0.1 K/mm3 (0.0-0.1); Basophils Percent Auto 0.8 % (0.2-1.2); Eosinophils Absolute Auto 0.5 K/mm3 (0-0.3); Eosinophils Percent Auto 6.4 % (0-4.4); Hematocrit 42.2 % (42.0-52.0); Hemoglobin 12.6 g/dL (14.0-18.0); Immature Granulocyte Absolute 0.02 K/mm3 (0.00-0.031); Immature Granulocyte Percent A 0.2 % (0-0.5); Lymphocytes Absolute Auto 1.26 K/mm3 (0.9-3.2); Lymphocytes Percent Auto 14.8 % (18.3-44.2); Mean Corpuscular HGB Conc 29.9 g/dl (32-36); Mean Corpuscular Hemoglobin 25.4 pg (26-34); Mean Corpuscular Volume 84.9 fl (80-100); Mean Platelet Volume 10.4 fl (7.4-10.4); Neutrophils Absolute Auto 5.6 K/mm3 (1.3-6.7); Neutrophils Percent Auto 65.8 % (45.5-73.1); Platelet Count Result 266 k/mm3 (150-375); Red Blood Count 4.97 M/mm3 (4.6-6.20); White Blood Count 8.5 K/mm3 (4.5-10.0)
[2023-12-01 06:40] LABS: Alanine Aminotransferase 9 U/L (6-50); Albumin Level 2.9 g/dL (3.5-5.1); Alkaline Phosphatase 77 U/L (38-126); Anion Gap 6 mmol/L (4-12); Aspartate Amino Transferase 18 U/L (17-59); Bilirubin,Total 0.5 mg/dL (0.2-1.3); Blood Urea Nitrogen 12 mg/dL (9-20); Calcium 8.9 mg/dL (8.4-10.2); Carbon Dioxide 24 mmol/L (22-30); Chloride 104 mmol/L (98-107); Estimated CRCL calculation 116 ml/min; Estimated Glomerular Filt Rate > 60; Glucose 167 mg/dL (65-110); Potassium 3.1 mmol/L (3.4-5.0); Sodium 134 mmol/L (137-145)
[2023-12-01 07:05] LABS: Platelet Estimate Adequate (Adequate)
[2023-12-01 07:06] LABS: Schistocytes None Seen
--- NOTE | 2023-12-01 07:12 | P.PNIM_ITS ---
Progress Note: A&P Assessment and Plan (1) Emphysematous pyelitis: Code(s): N12 - Tubulo-interstitial nephritis, not specified as acute or chronic Status: Acute Assessment and Plan: 12/01/23: * CT of the chest/abdomen/pelvis showed cholelithiasis with gallbladder distention, right-sided pyelitis, nonobstructing right kidney stone with gas in the right calyces and right ureter, small sliding hiatal hernia * UA showing turbid appearance, 4+ urine protein, 3+ urine glucose, 3+ urine blood, positive nitrate, 2+ leukocyte. * Blood and urine culture pending * Patient given Rocephin while in ED, now transitioned to Meropenem due to resistance in past urine cultures. (2) Chronic indwelling [place] catheter: Code(s): Z97.8 - Presence of other specified devices Status: Acute Assessment and Plan: 12/01/23: * [place] catheter changed in the ER * See above plan of care (3) AMS (altered mental status): Qualifiers: Altered mental status type: delirium Qualified Code(s): R41.0 - Disorientation, unspecified Code(s): R41.82 - Altered mental status, unspecified Status: Acute Assessment and Plan: 12/01/23: * Likely secondary to urinary tract infection versus Neurontin use * Continue neuro checks * Head CT negative * Will hold Neurontin as this medication caused mental status changes last time patient was admitted. (4) Open wound of both lower extremities: Qualifiers: Encounter type: initial encounter Qualified Code(s): S81.801A - Unspecified open wound, right lower leg, initial encounter; S81.802A - Unspecified open wound, left lower leg, initial encounter Code(s): S81.801A - Unspecified open wound, right lower leg, initial encounter; S81.802A - Unspecified open wound, left lower leg, initial encounter Status: Chronic Assessment and Plan: 12/01/23: * Wound nurse consulted * Was seen and treated in the hospital beginning of October for positive wound cultures. Patient finished course of Doxycycline and Augmentin. (5) Type 2 diabetes mellitus with hyperglycemia, with long-term current use of insulin: Code(s): E11.65 - Type 2 diabetes mellitus with hyperglycemia; Z79.4 - [facility] (current) use of insulin Status: Chronic Assessment and Plan: 12/01/23: * Blood sugars ranging 167-324 * Hgb A1C 8.4 on 06/22/23 * Will repeat Hgb A1C today * Accu checks AC/HS * High dose SSI ordered * Insulin Isophan/Reg 70/30 continued * hypoglycemic protocol in place * Diabetic diet ordered (6) Atrial fibrillation with rapid ventricular response: Code(s): I48.91 - Unspecified atrial fibrillation Status: Chronic Assessment and Plan: 12/01/23: * rate controlled * Continue Eliquis and Metoprolol Time Spent With Patient Time with patient: Greater than 35 minutes Subjective Date/time seen: 12/01/23 07:12 Interval history: Interval history: This is a 68 year old male who presented to the hospital on 11/30/23 with Altered mental status from [facility]. Work up in the hospital included a head CT which was negative. Chest/abdomen/Pelvis CT shown cholelithiasis, gallbladder distention, right sided pyelitis, nonobstructing right kidney stones with gas in the right calyces and right ureter representing bladder infection, small sliding hiatal hernia. Initial labs revealed a WBC of 14.23, Na+ 134, BG 324. UA was obtained and revealed turbid urine appearance, 4+ urine protein, 3+ urine glucose, 3+ urine blood, positive urine nitrates, 2+ leukocytes. Respiratory panel negative for Influenza A and B, RSV, COVID. Blood and urine cultures obtained and pending. EKG showing A fib with rate of 96. Patient was given a dose of Rocephin in the ER. Of note patient was just seen and treated for positive wound cultures and was given a course of Augmentin and Doxycycline. He did have mental status changes at that time as well and was decreased on gabapentin which improved his mental status. Subjective: Noncontributory, Patient confused and yelling out, Labs and imaging reviewed. Review of Systems Review of Systems: All systems reviewed & are unremarkable except as noted in HPI and below ROS unobtainable: Yes unobtainable due to mental status Constitutional: Constitutional: Reports as per HPI and Reports no additional constitutional complaints Eyes: Eyes: Reports as per HPI and Reports no additional eye complaints ENT: Reports system reviewed and no additional complaints, except as documented and Reports as per HPI Cardiovascular: Cardiovascular: Reports as per HPI and Reports no additional cardiovascular complaints Respiratory: Respiratory: Reports as per HPI and Reports no additional respiratory complaints Gastrointestinal: Gastrointestinal: Reports as per HPI and Reports no additional gastrointestinal complaints Genitourinary: Genitourinary: Reports no additional male genitourinary complaints and Reports as per HPI Musculoskeletal: Musculoskeletal: Reports no additional musculoskeletal complaints and Reports as per HPI Integumentary/Breasts: Skin/Breast: Reports system reviewed and no additional complaints, except as docu and Reports as per HPI Neurologic: Reports system reviewed and no additional complaints, except as documented and Reports as per HPI Psychiatric: Psychiatric: Reports no additional psychiatric complaints and Rep orts as per HPI Exam Narrative: General: In no acute distress, well nourished Head: atraumatic, no encephalopathy Eyes: EOMI, PERRLA, sclera clear ENT: moist mucous membranes, nasal passages clear Neck: supple, no JVD, no adenopathy, trachea midline Cardiac: Normal S1 and S2. RRR, No murmur, gallops or friction rubs, peripheral pulses intact. Respiratory: Lungs clear to auscultation, no adventitious lung sounds, currently on room air Gastrointestinal: soft, non-distended, non-tender, normoactive bowel sounds. :[place] catheter in place draining clear yellow urine Extremities: moves all extremities fair, no edema Skin: Wound to bilateral heals, left oozing purulent drainage, right heel scabbed. Rash noted to bilateral lower extremities, no open wounds on legs Neuro: Alert and confused Psych: yelling out, minimally interactive Objective Data Vital Signs Vital Signs: Vital Signs - 24 hr 11/30/23 14:26 11/30/23 15:07 11/30/23 15:14 Temperature 97.6 F Pulse Rate 120 H 123 H 134 H Respiratory Rate 16 20 Blood Pressure 163/105 H 170/93 H Pulse Oximetry 95 95 Oxygen Delivery Room Air 11/30/23 16:25 11/30/23 19:15 11/30/23 22:00 Temperature 98 F 98.2 F Pulse Rate 84 89 100 Respiratory Rate 18 17 20 Blood Pressure 146/99 H 164/87 H 153/109 H Pulse Oximetry 95 97 99 Oxygen Delivery 11/30/23 20:00 11/30/23 20:00 12/01/23 00:00 Temperature Pulse Rate 110 H 100 77 Respiratory Rate 20 Blood Pressure Pulse Oximetry 99 Oxygen Delivery Room Air 12/01/23 00:17 12/01/23 05:05 12/01/23 04:00 Temperature 98.4 F 98.2 F Pulse Rate 72 80 91 Respiratory Rate 18 18 Blood Pressure 156/105 H 150/98 H Pulse Oximetry 98 99 Oxygen Delivery Intake/Output Intake/Output: Intake & Output 11/28/23 11/29/23 11/30/23 12/01/23 23:59 23:59 23:59 23:59 Intake Total 1150 500 Output Total 500 450 Balance 650 50 Meds/Results Medications: Active Medications Generic Name Dose Route Start Last Admin Trade Name Freq PRN Reason Stop Dose Admin Acetaminophen 650 mg 12/01/23 04:05 Acetaminophen 325 Mg Tablet PO Q4-6H PRN Pain 1-3 or fever Hydrocodone Bitart/Acetaminophen 1 tab 12/01/23 04:05 Hydrocodone/Acetaminophen (*Crx) 5-325 Mg Tablet PO Q8H PRN Pain 4-10 Albuterol/Ipratropium 3 ml 12/01/23 04:05 Ipratropium 0.5 Mg/Albuterol Sulfate 2.5 Mg Ampul.Neb 3 Ml INHALATION Q4H PRN Wheezing Apixaban 5 mg 12/01/23 09:00 Apixaban 5 Mg Tablet PO Q12HR [facility] Aspirin 81 mg 12/01/23 09:00 Aspirin 81 Mg Enteric Tablet PO QAM HERMILO Bupropion HCl 150 mg 12/01/23 09:00 Bupropion Hcl Xl (24 Hr) 150 Mg Tabcr PO QAM HERMILO Dextrose 12.5 gm 11/30/23 21:55 Dextrose 50% 25 Gm/50 Ml Syringe IV PUSH PRN PRN Hypoglycemia Protocol Famotidine 20 mg 12/01/23 09:00 Famotidine [address] [facility] Gabapentin 100 mg 12/01/23 09:00 Gabapentin 100 Mg Capsule PO BID HERMILO Glucagon 1 mg 11/30/23 21:55 Glucagon For Inj 1 Mg Vial IM PRN PRN Hypoglycemia Protocol Glucose 15 gm 11/30/23 21:55 Glucose Oral Gel 15 Gm Of Glucse In 37.5 Gm Tube PO PRN PRN Hypoglycemia Protocol Meropenem 1 gm in 100 mls @ 200 mls/hr 11/30/23 22:00 12/01/23 05:52 IVPB 200 mls/hr Q8H HERMILO Administration Dextrose 1,000 mls @ 100 mls/hr 11/30/23 21:55 Dextrose 5% 1,000 Ml IVPB PRN PRN Hypoglycemia Protocol Sodium Chloride 1,000 mls @ 100 mls/hr 11/30/23 22:10 11/30/23 22:31 Normal Saline Iv IV CONT 100 mls/hr .Q10H HERMILO Administration Insulin Aspart 2 - 4 units 12/01/23 21:00 Insulin Aspart (*Bkc) 100 Units/Ml SUB-Q HS [facility] Protocol Insulin Aspart 4 - 8 units 12/01/23 08:00 Insulin Aspart (*Bkc) 100 Units/Ml SUB-Q TIDWM [facility] Protocol Insulin Human Isoph/Insulin Regular 25 units 12/01/23 09:00 Insulin Human Isophan/Regular 70/30 (*Bkc) 100 Units/Ml SUB-Q QAM [facility]O Insulin Human Isoph/Insulin Regular 15 units 12/01/23 21:00 Insulin Human Isophan/Regular 70/30 (*Bkc) 100 Units/Ml SUB-Q HS [facility] Levothyroxine Sodium 100 mcg 12/01/23 09:00 Levothyroxine Sodium 100 Mcg Tablet PO DAILY@0630 [facility] Lisinopril 10 mg 12/01/23 09:00 Lisinopril 10 Mg Tablet PO DAILY [facility] Magnesium Oxide 400 mg 12/01/23 12:00 Magnesium Oxide 400 Mg Tablet PO [address] [facility] Melatonin 5 mg 12/01/23 21:00 Melatonin 5 Mg Tablet PO HS [facility] Metoprolol Succinate 75 mg 12/01/23 09:00 Metoprolol Succinate Ext Rel [address] [facility] Miconazole Nitrate 1 applic 12/01/23 09:00 Miconazole Nitrate 2% Cream 30 Gm Tube TOPICAL Q12HR [facility] Multi-Ingred Cream/Lotion/Oil/Oint 1 applic 12/01/23 09:00 Eucerin Cream [address] [facility] Multivitamins/Calcium 1 tablet 12/01/23 09:00 Therapeutic Multivitamins/Minerals Tab (*Bkc) PO DAILY [facility] Polyethylene Glycol 17 gm 12/01/23 09:00 Polyethylene Glycol 3350 [address]d.Pack PO BID [facility] Pravastatin Sodium 40 mg 12/01/23 21:00 Pravastatin Sodium 20 Mg Tablet PO HS [facility] Senna/Docusate Sodium 1 tab 12/01/23 09:00 Senna/Docusate Sodium Tablet PO BID [facility] Valsartan 20 mg 12/01/23 09:00 Valsartan 20 Mg Tablet PO DAILY [facility] Radiology Results: ITS Impressions Head CT 11/30/23 17:10 IMPRESSION: No acute intracranial process. Chest/Abdomen/Pelvis CT 11/30/23 17:24 IMPRESSION: 1. Cholelithiasis. Gallbladder distention may be secondary to fasting or acute cholecystitis. Correlate with physical exam. 2. Right-sided pyelitis. 3. Nonobstructing right kidney stones. Gas in the right calyces and right ureter may be secondary to reflux from the bladder or from infection. 4. Small sliding hiatal hernia. Labs Labs: Laboratory Results - last 24 hr 11/30/23 11/30/23 12/01/23 15:02 19:58 05:29 WBC 14.3 H RBC 5.76 Hgb 14.7 Hct 49.1 MCV 85.2 MCH 25.5 L MCHC 29.9 L RDW 16.3 H Plt Count 326 MPV 10.6 H Immature Gran % (Auto) 0.3 Neut % (Auto) 82.4 H Lymph % (Auto) 7.2 L [place] % (Auto) 7.9 Eos % (Auto) 1.7 Baso % (Auto) 0.5 Lymph # (Auto) 1.03 [place] # (Auto) 1.1 H Eos # (Auto) 0.3 Baso # (Auto) 0.1 Abs Immat Gran (auto) 0.04 H Absolute Neuts (auto) 11.8 H Absolute Nucleated RBC 0.000 Nucleated RBC % 0.0 Platelet Estimate Schistocytes PT 16.5 H INR 1.3 APTT 35.4 Sodium 134 L Potassium 3.6 Chloride 99 Carbon Dioxide 28 Anion Gap 7 BUN 15 Creatinine 0.90 Estim Creat Clear Calc Not Reportable Estimated GFR > 60 Glucose 324 H POC Capillary Glucose 233 H 184 H Calcium 9.6 Total Bilirubin 0.4 AST 25 ALT 13 Alkaline Phosphatase 101 Total Protein 8.0 Albumin 3.5 Urine Color Yellow Urine Appearance Turbid H Urine pH 6.0 Ur Specific [place] 1.026 Urine Protein 4+ H Urine Glucose (UA) 3+ H Urine Ketones Negative Ur Blood (Man) 3+ H Urine Nitrate Positive H Urine Bilirubin Negative Urine Urobilinogen 1.0 Leukocyte Esterase Rfl 2+ H Influenza A (RT-PCR) Negative Influenza B (RT-PCR) Negative RSV (RT-PCR) Negative SARS-CoV-2 RNA (RT-PCR) Negative 12/01/23 05:46 WBC 8.5 RBC 4.97 Hgb 12.6 L Hct 42.2 MCV 84.9 MCH 25.4 L MCHC 29.9 L RDW 16.0 H Plt Count 266 MPV 10.4 Immature Gran % (Auto) 0.2 Neut % (Auto) 65.8 Lymph % (Auto) 14.8 L [place] % (Auto) 12.0 H Eos % (Auto) 6.4 H Baso % (Auto) 0.8 Lymph # (Auto) 1.26 [place] # (Auto) 1.0 H Eos # (Auto) 0.5 H Baso # (Auto) 0.1 Abs Immat Gran (auto) 0.02 Absolute Neuts (auto) 5.6 Absolute Nucleated RBC 0.000 Nucleated RBC % 0.0 Platelet Estimate Adequate Schistocytes None seen PT INR APTT Sodium 134 L Potassium 3.1 L Chloride 104 Carbon Dioxide 24 Anion Gap 6 BUN 12 Creatinine 0.70 Estim Creat Clear Calc 116 Estimated GFR > 60 Glucose 167 H POC Capillary Glucose Calcium 8.9 Total Bilirubin 0.5 AST 18 ALT 9 Alkaline Phosphatase 77 Total Protein 7.0 Albumin 2.9 L Urine Color Urine Appearance Urine pH Ur Specific [place] Urine Protein Urine Glucose (UA) Urine Ketones Ur Blood (Man) Urine Nitrate Urine Bilirubin Urine Urobilinogen Leukocyte Esterase Rfl Influenza A (RT-PCR) Influenza B (RT-PCR) RSV (RT-PCR) SARS-CoV-2 RNA (RT-PCR) Quality VTE Prophylaxis VTE prophylaxis: pharmacologic ordered
[2023-12-01 07:57] LABS: Glucose Point of Care 182 mg/dl (65-105)
[2023-12-01] MEDS: SODIUM CHLORIDE 0.9% IV 1,000 ML 100 ML IV CONT ×2 (09:00→20:55)
[2023-12-01] MEDS: METOPROLOL SUCCINATE EXT REL 25 MG TABCR 75 MG PO (09:23)
[2023-12-01] MEDS: lisinopriL 10 MG TABLET PO (09:23)
[2023-12-01] MEDS: polyethylene glycoL 3350 17 GM POWD.PACK PO ×2 (09:23→17:36)
[2023-12-01] MEDS: APIXABAN 5 MG TABLET PO ×2 (09:23→20:57)
[2023-12-01] MEDS: SENNA/DOCUSATE SODIUM TABLET 1 TAB PO ×2 (09:24→17:36)
[2023-12-01] MEDS: VALSARTAN 20 MG TABLET PO (09:24)
[2023-12-01] MEDS: buPROPion HCL XL (24 HR) 150 MG TABCR PO (09:24)
[2023-12-01] MEDS: THERAPEUTIC MULTIVITAMINS/MINERALS TAB (*BKC) 1 TABLET PO (09:24)
[2023-12-01] MEDS: FAMOTIDINE 20 MG TABLET PO (09:24)
[2023-12-01] MEDS: INSULIN HUMAN ISOPHAN/REGULAR 70/30 (*BKC) 100 UNITS/ML 25 UNITS SUB-Q (09:24)
[2023-12-01] MEDS: ASPIRIN 81 MG ENTERIC TABLET PO (09:24)
[2023-12-01 11:18] LABS: Hemoglobin A1C 8.7 % (<5.7)
[2023-12-01] MEDS: MICONAZOLE NITRATE 2% CREAM 30 GM TUBE 1 APPLIC TOPICAL ×2 (11:22→20:57)
[2023-12-01] MEDS: EUCERIN CREAM 120 GM JAR 1 APPLIC TOPICAL (11:22)
[2023-12-01 12:12] LABS: Glucose Point of Care 174 mg/dl (65-105)
[2023-12-01] MEDS: ACETAMINOPHEN 325 MG TABLET 650 MG PO (12:37)
[2023-12-01] MEDS: MAGNESIUM OXIDE 400 MG TABLET PO (12:37)
--- NOTE | 2023-12-01 13:46 | PC.NURSE ---
On 12/01/23, the student, [Rosalie Gonzalez], provided care and completed [facility] documentation on this patient. I have reviewed the student's documentation and agree with the findings.
[2023-12-01 16:52] LABS: Glucose Point of Care 119 mg/dl (65-105)
[2023-12-01 20:48] LABS: Glucose Point of Care 137 mg/dl (65-105)
[2023-12-01] MEDS: INSULIN HUMAN ISOPHAN/REGULAR 70/30 (*BKC) 100 UNITS/ML 15 UNITS SUB-Q (20:56)
[2023-12-01] MEDS: PRAVASTATIN SODIUM 20 MG TABLET 40 MG PO (20:57)
[2023-12-01] MEDS: MELATONIN 5 MG TABLET PO (20:57)
[2023-12-02] VITALS: PULSE 72
[2023-12-02 04:00] VITALS: PULSE 68
[2023-12-02] MEDS: MEROPENEM 1 GM/NS 100 ML 1 GM/100 ML BAG IVPB ×2 (05:34→13:27)
[2023-12-02] MEDS: LEVOTHYROXINE SODIUM 100 MCG TABLET PO (05:35)
[2023-12-02 06:00] VITALS: BP 170/90; PULSE 75; RESP 18; TEMP 36.4; O2SAT 97
[2023-12-02] MEDS: buPROPion HCL XL (24 HR) 150 MG TABCR PO (07:59)
[2023-12-02] MEDS: FAMOTIDINE 20 MG TABLET PO (07:59)
[2023-12-02] MEDS: APIXABAN 5 MG TABLET PO ×2 (07:59→20:38)
[2023-12-02] MEDS: THERAPEUTIC MULTIVITAMINS/MINERALS TAB (*BKC) 1 TABLET PO (07:59)
[2023-12-02] MEDS: VALSARTAN 20 MG TABLET PO (07:59)
[2023-12-02] MEDS: ACETAMINOPHEN 325 MG TABLET 650 MG PO (07:59)
[2023-12-02 08:00] VITALS: PULSE 86
[2023-12-02] MEDS: METOPROLOL SUCCINATE EXT REL 25 MG TABCR 75 MG PO (08:00)
[2023-12-02] MEDS: MICONAZOLE NITRATE 2% CREAM 30 GM TUBE 1 APPLIC TOPICAL ×2 (08:00→20:38)
[2023-12-02] MEDS: lisinopriL 10 MG TABLET PO (08:00)
[2023-12-02] MEDS: EUCERIN CREAM 120 GM JAR 1 APPLIC TOPICAL (08:00)
[2023-12-02] MEDS: ASPIRIN 81 MG ENTERIC TABLET PO (08:00)
[2023-12-02] MEDS: SENNA/DOCUSATE SODIUM TABLET 1 TAB PO ×2 (08:00→17:24)
[2023-12-02] MEDS: polyethylene glycoL 3350 17 GM POWD.PACK PO ×2 (08:01→17:25)
[2023-12-02 08:13] LABS: Glucose Point of Care 104 mg/dl (65-105)
[2023-12-02 11:57] LABS: Glucose Point of Care 123 mg/dl (65-105)
[2023-12-02] MEDS: MAGNESIUM OXIDE 400 MG TABLET PO (13:27)
[2023-12-02 14:00] VITALS: BP 161/81; PULSE 73; RESP 18; TEMP 36.4; O2SAT 98
--- NOTE | 2023-12-02 14:14 | P.PNIM_ITS ---
Progress Note: A&P Assessment and Plan (1) Emphysematous pyelitis: Code(s): N12 - Tubulo-interstitial nephritis, not specified as acute or chronic Status: Acute Assessment and Plan: 12/01/23: * CT of the chest/abdomen/pelvis showed cholelithiasis with gallbladder distention, right-sided pyelitis, nonobstructing right kidney stone with gas in the right calyces and right ureter, small sliding hiatal hernia * UA showing turbid appearance, 4+ urine protein, 3+ urine glucose, 3+ urine blood, positive nitrate, 2+ leukocyte. * Blood and urine culture pending * Patient given Rocephin while in ED, now transitioned to Meropenem due to resistance in past urine cultures. 12/02/23: * Urine culture showing E coli on final read with sensitivities coming back with multiple resistance * Will switch to Macrobid today (2) Chronic indwelling [place] catheter: Code(s): Z97.8 - Presence of other specified devices Status: Acute Assessment and Plan: 12/01/23: * [place] catheter changed in the ER * See above plan of care 12/02/23: * No change (3) AMS (altered mental status): Qualifiers: Altered mental status type: delirium Qualified Code(s): R41.0 - Disorientation, unspecified Code(s): R41.82 - Altered mental status, unspecified Status: Acute Assessment and Plan: 12/01/23: * Likely secondary to urinary tract infection versus Neurontin use * Continue neuro checks * Head CT negative * Will hold Neurontin as this medication caused mental status changes last time patient was admitted. 12/02/23: * Continue neuro checks (4) Open wound of both lower extremities: Qualifiers: Encounter type: initial encounter Qualified Code(s): S81.801A - Unspecified open wound, right lower leg, initial encounter; S81.802A - Unspecified open wound, left lower leg, initial encounter Code(s): S81.801A - Unspecified open wound, right lower leg, initial encounter; S81.802A - Unspecified open wound, left lower leg, initial encounter Status: Chronic Assessment and Plan: 12/01/23: * Wound nurse consulted * Was seen and treated in the hospital beginning of October for positive wound cultures. Patient finished course of Doxycycline and Augmentin. 12/02/23: * Wound care states chronic venous insufficiency to bilateral lower legs * Silver gel to toes (5) Type 2 diabetes mellitus with hyperglycemia, with long-term current use of insulin: Code(s): E11.65 - Type 2 diabetes mellitus with hyperglycemia; Z79.4 - superintendent container terminal (current) use of insulin Status: Chronic Assessment and Plan: 12/01/23: * Blood sugars ranging 167-324 * Hgb A1C 8.4 on 06/22/23 * Will repeat Hgb A1C today * Accu checks AC/HS * High dose SSI ordered * Insulin Isophan /Reg 70/30 continued * hypoglycemic protocol in place * Diabetic diet ordered 12/02/23: * No change to current treatment plan (6) Atrial fibrillation with rapid ventricular response: Code(s): I48.91 - Unspecified atrial fibrillation Status: Chronic Assessment and Plan: 12/01/23: * rate controlled * Continue Eliquis and Metoprolol 12/02/23: * No change to current treatment plan Subjective Date/time seen: 12/02/23 14:14 Interval history: Interval history: This is a 68 year old male who presented to the hospital on 11/30/23 with Altered mental status from [facility]. Work up in the hospital included a head CT which was negative. Chest/abdomen/Pelvis CT shown cholelithiasis, gallbladder distention, right sided pyelitis, nonobstructing right kidney stones with gas in the right calyces and right ureter representing bladder infection, small sliding hiatal hernia. Initial labs revealed a WBC of 14.23, Na+ 134, BG 324. UA was obtained and revealed turbid urine appearance, 4+ urine protein, 3+ urine glucose, 3+ urine blood, positive urine nitrates, 2+ leukocytes. Respiratory panel negative for Influenza A and B, RSV, COVID. Blood and urine cultures obtained and pending. EKG showing A fib with rate of 96. Patient was given a dose of Rocephin in the ER. Of note patient was just seen and treated for positive wound cultures and was given a course of Augmentin and Doxycycline. He did have mental status changes at that time as well and was decreased on gabapentin which improved his mental status. Subjective: Patient still confused today, labs and urine culture reviewed reviewed. Review of Systems Review of Systems: All systems reviewed & are unremarkable except as noted in HPI and below ROS unobtainable: Yes unobtainable due to mental status Constitutional: Constitutional: Reports as per HPI and Reports no additional constitutional complaints Eyes: Eyes: Reports as per HPI and Reports no additional eye complaints ENT: Reports system reviewed and no additional complaints, except as documented and Reports as per HPI Cardiovascular: Cardiovascular: Reports as per HPI and Reports no additional cardiovascular complaints Respiratory: Respiratory: Reports as per HPI and Reports no additional respiratory complaints Gastrointestinal: Gastrointestinal: Reports as per HPI and Reports no additional gastrointestinal complaints Genitourinary: Genitourinary: Reports no additional male genitourinary complaints and Reports as per HPI Musculoskeletal: Musculoskeletal: Reports no additional musculoskeletal complaints and Reports as per HPI Integumentary/Breasts: Skin/Breast: Reports system reviewed and no additional complaints, except as docu and Reports as per HPI Neurologic: Reports system reviewed and no additional complaints, except as documented and Reports as per HPI Psychiatric: Psychiatric: Reports no additional psychiatric complaints and Reports as per HPI Exam Narrative: General: In no acute distress, well nourished Cardiac: Normal S1 and S2. RRR, No murmur, gallops or friction rubs, peripheral pulses intact. Respiratory: Lungs clear to auscultation, no adventitious lung sounds, currently on room air Gastrointestinal: soft, non-distended, non-tender, normoactive bowel sounds. :[place] catheter in place draining clear yellow urine Extremities: moves all extremities fair, no edema Skin: Wound to bilateral heals, left oozing purulent drainage, right heel scabbed. Rash noted to bilateral lower extremities, no open wounds on legs Neuro: Alert and confused Objective Data Vital Signs Vital Signs: Vital Signs - 24 hr 12/01/23 16:00 12/01/23 20:00 12/01/23 20:00 Temperature Pulse Rate 68 56 L 68 Respiratory Rate 16 Blood Pressure Pulse Oximetry 98 Oxygen Delivery Room Air Fraction of Inspired Oxygen 21 12/01/23 22:00 12/02/23 00:00 12/02/23 04:00 Temperature 98.0 F Pulse Rate 70 72 68 Respiratory Rate 18 Blood Pressure 177/91 H Pulse Oximetry 100 Oxygen Delivery Fraction of Inspired Oxygen 12/02/23 06:00 12/02/23 08:00 Temperature 97.5 F L Pulse Rate 75 86 Respiratory Rate 18 Blood Pressure 170/90 H Pulse Oximetry 97 Oxygen Delivery Fraction of Inspired Oxygen Intake/Output Intake/Output: Intake & Output 11/29/23 11/30/23 12/01/23 12/02/23 23:59 23:59 23:59 23:59 Intake Total 1150 3280 320 Output Total 500 1200 850 Balance 650 2080 -530 Meds/Results Medications: Active Medications Generic Name Dose Route Start Last Admin Trade Name Freq PRN Reason Stop Dose Admin Acetaminophen 650 mg 12/01/23 04:05 12/02/23 07:59 Acetaminophen 325 Mg Tablet PO 650 mg Q4-6H PRN Administration Pain 1-3 or fever Hydrocodone Bitart/Acetaminophen 1 tab 12/01/23 04:05 Hydrocodone/Acetaminophen (*Crx) 5-325 Mg Tablet PO Q8H PRN Pain 4-10 Albuterol/Ipratropium 3 ml 12/01/23 04:05 Ipratropium 0.5 Mg/Albuterol Sulfate 2.5 Mg Ampul.Neb 3 Ml INHALATION Q4H PRN Wheezing Apixaban 5 mg 12/01/23 09:00 12/02/23 07:59 Apixaban 5 Mg Tablet PO 5 mg Q12HR HERMILO Administration Aspirin 81 mg 12/01/23 09:00 12/02/23 08:00 Aspirin 81 Mg Enteric Tablet PO 81 mg QAM HERMILO Administration Bupropion HCl 150 mg 12/01/23 09:00 12/02/23 07:59 Bupropion Hcl Xl (24 Hr) 150 Mg Tabcr PO 150 mg QAM HERMILO Administration Dextrose 12.5 gm 11/30/23 21:55 Dextrose 50% 25 Gm/50 Ml Syringe IV PUSH PRN PRN Hypoglycemia Protocol Famotidine 20 mg 12/01/23 09:00 12/02/23 07:59 Famotidine 20 Mg Tablet PO 20 mg DAILY HERMILO Administration Gabapentin 100 mg 12/01/23 09:00 Gabapentin 100 Mg Capsule PO BID HERMILO Glucagon 1 mg 11/30/23 21:55 Glucagon For Inj 1 Mg Vial IM PRN PRN Hypoglycemia Protocol Glucose 15 gm 11/30/23 21:55 Glucose Oral Gel 15 Gm Of Glucse In 37.5 Gm Tube PO PRN PRN Hypoglycemia Protocol Meropenem 1 gm in 100 mls @ 200 mls/hr 11/30/23 22:00 12/02/23 13:27 IVPB 200 mls/hr Q8H HERMILO Administration Dextrose 1,000 mls @ 100 mls/hr 11/30/23 21:55 Dextrose 5% 1,000 Ml IVPB PRN PRN Hypoglycemia Protocol Sodium Chloride 1,000 mls @ 100 mls/hr 11/30/23 22:10 12/01/23 20:55 Normal Saline Iv IV CONT 100 mls/hr .Q10H HERMILO Administration Insulin Aspart 2 - 4 units 12/01/23 21:00 12/01/23 20:57 Insulin Aspart (*Bkc) 100 Units/Ml SUB-Q Not Given HS HERMILO Protocol Insulin Aspart 4 - 8 units 12/01/23 08:00 12/02/23 12:16 Insulin Aspart (*Bkc) 100 Units/Ml SUB-Q Not Given TIDWM [facility] Protocol Insulin Human Isoph/Insulin Regular 25 units 12/01/23 09:00 12/02/23 08:12 Insulin Human Isophan/Regular 70/30 (*Bkc) 100 Units/Ml SUB-Q Not Given QAM [facility] Insulin Human Isoph/Insulin Regular 15 units 12/01/23 21:00 12/01/23 20:56 Insulin Human Isophan/Regular 70/30 (*Bkc) 100 Units/Ml SUB-Q 15 units HS HERMILO Administration Levothyroxine Sodium 100 mcg 12/01/23 09:00 12/02/23 05:35 Levothyroxine Sodium 100 Mcg Tablet PO 100 mcg DAILY@0630 HERMILO Administration Lisinopril 10 mg 12/01/23 09:00 12/02/23 08:00 Lisinopril 10 Mg Tablet PO 10 mg DAILY HERMILO Administration Magnesium Oxide 400 mg 12/01/23 12:00 12/02/23 13:27 Magnesium Oxide 400 Mg Tablet PO 400 mg 1200 HERMILO Administration Melatonin 5 mg 12/01/23 21:00 12/01/23 20:57 Melatonin 5 Mg Tablet PO 5 mg HS HERMILO Administration Metoprolol Succinate 75 mg 12/01/23 09:00 12/02/23 08:00 Metoprolol Succinate Ext Rel 25 Mg Tabcr PO 75 mg QAM [facility] Administration Miconazole Nitrate 1 applic 12/01/23 09:00 12/02/23 08:00 Miconazole Nitrate 2% Cream 30 Gm Tube TOPICAL 1 applic Q12HR HERMILO Administration Multi-Ingred Cream/Lotion/Oil/Oint 1 applic 12/01/23 09:00 12/02/23 08:00 Eucerin Cream 120 Gm Jar TOPICAL 1 applic DAILY HERMILO Administration Multivitamins/Calcium 1 tablet 12/01/23 09:00 12/02/23 07:59 Therapeutic Multivitamins/Minerals Tab (*Bkc) PO 1 tablet DAILY HERMILO Administration Polyethylene Glycol 17 gm 12/01/23 09:00 12/02/23 08:01 Polyethylene Glycol 3350 17 Gm Powd.Pack PO 17 gm BID HERMILO Administration Pravastatin Sodium 40 mg 12/01/23 21:00 12/01/23 20:57 Pravastatin Sodium 20 Mg Tablet PO 40 mg HS HERMILO Administration Senna/Docusate Sodium 1 tab 12/01/23 09:00 12/02/23 08:00 Senna/Docusate Sodium Tablet PO 1 tab BID HERMILO Administration Valsartan 20 mg 12/01/23 09:00 12/02/23 07:59 Valsartan 20 Mg Tablet PO 20 mg DAILY HERMILO Administration Radiology Results: ITS Impressions Head CT 11/30/23 17:10 IMPRESSION: No acute intracranial process. Chest/Abdomen/Pelvis CT 11/30/23 17:24 IMPRESSION: 1. Cholelithiasis. Gallbladder distention may be secondary to fasting or acute cholecystitis. Correlate with physical exam. 2. Right-sided pyelitis. 3. Nonobstructing right kidney stones. Gas in the right calyces and right ureter may be secondary to reflux from the bladder or from infection. 4. Small sliding hiatal hernia. Labs Labs: Laboratory Results - last 24 hr 12/01/23 12/01/23 12/02/23 16:48 20:45 08:10 POC Capillary Glucose 119 H 137 H 104 12/02/23 11:49 POC Capillary Glucose 123 H Quality VTE Prophylaxis VTE prophylaxis: pharmacologic ordered (Continue home Eliquis.)
[2023-12-02 17:22] LABS: Glucose Point of Care 153 mg/dl (65-105)
[2023-12-02] MEDS: INSULIN HUMAN ISOPHAN/REGULAR 70/30 (*BKC) 100 UNITS/ML 15 UNITS SUB-Q (20:34)
[2023-12-02] MEDS: INSULIN ASPART (*BKC) 100 UNITS/ML SUB-Q (20:35)
[2023-12-02] MEDS: PRAVASTATIN SODIUM 20 MG TABLET 40 MG PO (20:38)
[2023-12-02] MEDS: MELATONIN 5 MG TABLET PO (20:38)
[2023-12-02] MEDS: NITROFURANTOIN MONOHYD MACROCR 100 MG CAP PO (20:38)
[2023-12-02 22:00] VITALS: BP 172/87; PULSE 78; RESP 18; TEMP 36.4; O2SAT 94
[2023-12-03 03:53] LABS: Glucose Point of Care 235 mg/dl (65-105)
[2023-12-03] MEDS: SODIUM CHLORIDE 0.9% IV 1,000 ML 100 ML IV CONT (04:54)
[2023-12-03] MEDS: LEVOTHYROXINE SODIUM 100 MCG TABLET PO (05:58)
[2023-12-03 05:59] LABS: Basophils Absolute Auto 0.1 K/mm3 (0.0-0.1); Basophils Percent Auto 0.9 % (0.2-1.2); Eosinophils Absolute Auto 0.5 K/mm3 (0-0.3); Eosinophils Percent Auto 7.1 % (0-4.4); Hematocrit 42.6 % (42.0-52.0); Immature Granulocyte Absolute 0.02 K/mm3 (0.00-0.031); Immature Granulocyte Percent A 0.3 % (0-0.5); Lymphocytes Absolute Auto 1.27 K/mm3 (0.9-3.2); Lymphocytes Percent Auto 18.3 % (18.3-44.2); Mean Corpuscular HGB Conc 30.5 g/dl (32-36); Mean Corpuscular Hemoglobin 25.8 pg (26-34); Mean Corpuscular Volume 84.5 fl (80-100); Mean Platelet Volume 9.9 fl (7.4-10.4); Monocytes Absolute Auto 0.7 K/mm3 (0.1-0.6); Monocytes Percent Auto 10.2 % (2.6-8.5); Neutrophils Absolute Auto 4.4 K/mm3 (1.3-6.7); Neutrophils Percent Auto 63.2 % (45.5-73.1); Platelet Count Result 284 k/mm3 (150-375); Red Blood Count 5.04 M/mm3 (4.6-6.20); Red Cell Distribution Width 15.8 % (11.5-14.5); White Blood Count 6.9 K/mm3 (4.5-10.0)
[2023-12-03 06:00] VITALS: BP 162/84; PULSE 60; RESP 18; TEMP 36.5; O2SAT 96
[2023-12-03 06:07] LABS: Alanine Aminotransferase 11 U/L (6-50); Albumin Level 2.8 g/dL (3.5-5.1); Alkaline Phosphatase 70 U/L (38-126); Anion Gap 4 mmol/L (4-12); Aspartate Amino Transferase 23 U/L (17-59); Bilirubin,Total 0.2 mg/dL (0.2-1.3); Blood Urea Nitrogen 10 mg/dL (9-20); Carbon Dioxide 26 mmol/L (22-30); Chloride 103 mmol/L (98-107); Estimated CRCL calculation 102 ml/min; Estimated Glomerular Filt Rate > 60; Glucose 97 mg/dL (65-110); Potassium 3.5 mmol/L (3.4-5.0); Sodium 133 mmol/L (137-145)
[2023-12-03 08:39] LABS: Glucose Point of Care 94 mg/dl (65-105)
[2023-12-03 09:20] VITALS: PULSE 74
[2023-12-03] MEDS: buPROPion HCL XL (24 HR) 150 MG TABCR PO (09:20)
[2023-12-03] MEDS: METOPROLOL SUCCINATE EXT REL 25 MG TABCR 75 MG PO (09:20)
[2023-12-03] MEDS: lisinopriL 10 MG TABLET PO (09:23)
[2023-12-03] MEDS: NITROFURANTOIN MONOHYD MACROCR 100 MG CAP PO ×2 (09:23→21:14)
[2023-12-03] MEDS: SENNA/DOCUSATE SODIUM TABLET 1 TAB PO ×2 (09:23→17:15)
[2023-12-03] MEDS: VALSARTAN 20 MG TABLET PO (09:23)
[2023-12-03] MEDS: APIXABAN 5 MG TABLET PO ×2 (09:23→21:14)
[2023-12-03] MEDS: THERAPEUTIC MULTIVITAMINS/MINERALS TAB (*BKC) 1 TABLET PO (09:23)
[2023-12-03] MEDS: FAMOTIDINE 20 MG TABLET PO (09:23)
[2023-12-03] MEDS: polyethylene glycoL 3350 17 GM POWD.PACK PO ×2 (09:24→17:15)
[2023-12-03] MEDS: ASPIRIN 81 MG ENTERIC TABLET PO (09:24)
[2023-12-03] MEDS: INSULIN HUMAN ISOPHAN/REGULAR 70/30 (*BKC) 100 UNITS/ML 25 UNITS SUB-Q (09:25)
[2023-12-03] MEDS: MICONAZOLE NITRATE 2% CREAM 30 GM TUBE 1 APPLIC TOPICAL ×2 (09:26→21:14)
[2023-12-03] MEDS: EUCERIN CREAM 120 GM JAR 1 APPLIC TOPICAL (09:27)
[2023-12-03 11:47] LABS: Glucose Point of Care 172 mg/dl (65-105)
[2023-12-03] MEDS: MAGNESIUM OXIDE 400 MG TABLET PO (12:22)
[2023-12-03] MEDS: ACETAMINOPHEN 325 MG TABLET 650 MG PO (12:54)
--- NOTE | 2023-12-03 14:40 | PM.DS ---
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 - Tubulo-interstitial nephritis, not specified as acute or chronic Status: Acute (2) Chronic indwelling [place] catheter: Code(s): Z97.8 - Presence of other specified devices Status: Acute (3) AMS (altered mental status): Qualifiers: Altered mental status type: delirium Qualified Code(s): R41.0 - Disorientation, unspecified Code(s): R41.82 - Altered mental status, unspecified Status: Acute (4) Open wound of both lower extremities: Qualifiers: Encounter type: initial encounter Qualified Code(s): S81.801A - Unspecified open wound, right lower leg, initial encounter; S81.802A - Unspecified open wound, left lower leg, initial encounter Code(s): S81.801A - Unspecified open wound, right lower leg, initial encounter; S81.802A - Unspecified open wound, left lower leg, initial encounter Status: Chronic (5) Type 2 diabetes mellitus with hyperglycemia, with long-term current use of insulin: Code(s): E11.65 - Type 2 diabetes mellitus with hyperglycemia; Z79.4 - [facility] (current) use of insulin Status: Chronic (6) Atrial fibrillation with rapid ventricular response: Code(s): I48.91 - Unspecified atrial fibrillation Status: Chronic DS: Summary Hospital Course Reason for hospitalization: Emphysematous pyelitis Altered mental status Chronic indwelling [place] catheter Type 2 diabetes mellitus Atrial fibrillation with RVR Mild dehydration Hospital Course: This is a 68 year old male who presented to the hospital on 11/30/23 with Altered mental status from [facility]. Work up in the hospital included a head CT which was negative. Chest/abdomen/Pelvis CT shown cholelithiasis, gallbladder distention, right sided pyelitis, nonobstructing right kidney stones with gas in the right calyces and right ureter representing bladder infection, small sliding hiatal hernia. Initial labs revealed a WBC of 14.23, Na+ 134, BG 324. UA was obtained and revealed turbid urine appearance, 4+ urine protein, 3+ urine glucose, 3+ urine blood, positive urine nitrates, 2+ leukocytes. Respiratory panel negative for Influenza A and B, RSV, COVID. Blood and urine cultures obtained and pending. EKG showing A fib with rate of 96. Patient was given a dose of Rocephin in the ER. Urine culture showing E coli on final read. Rocephin was discontinued and patient was started on Macrobid. Blood cultures were negative to date on preliminary read. Patient is stable for discharge at this time. He will be going back to [facility]. He will need to finish all of his antibiotic and then follow up with his primary care physician in 1 week. Final diagnosis: Emphysematous pyelitis, dehydration Status at Discharge Cognitive/behavioral status at discharge: Alert oriented x1, likely new baseline Functional status at discharge: wheelchair bound Overall status at discharge: patient is progressing back to baseline Time Spent with Patient Time attestation: Total time spent providing and/or coordinating discharge services: Time spent: Greater than 30 minutes Exam Narrative: General: In no acute distress, well nourished Cardiac: Normal S1 and S2. RRR, No murmur, gallops or friction rubs, peripheral pulses intact. Respiratory: Lungs clear to auscultation, no adventitious lung sounds, currently on room air Gastrointestinal: soft, non-distended, non-tender, normoactive bowel sounds. :[place] catheter in place draining clear yellow urine Extremities: moves all extremities fair, no edema Skin: Wound to bilateral heals, left oozing purulent drainage, right heel scabbed. Rash noted to bilateral lower extremities, no open wounds on legs Neuro: Alert and confused DS: Data Data Completed and Pending Completed studies during hospitalization: Head CT Chest/abdomen/pelvis CT Pending studies at discharge: Blood cultures Labs on day of discharge: Labs from last 24 hours 12/03/23 12/03/23 12/03/23 11:39 08:34 05:28 WBC 6.9 RBC 5.04 Hgb 13.0 L Hct 42.6 MCV 84.5 MCH 25.8 L MCHC 30.5 L RDW 15.8 H Plt Count 284 MPV 9.9 Immature Gran % (Auto) 0.3 Neut % (Auto) 63.2 Lymph % (Auto) 18.3 [place]one % (Auto) 10.2 H Eos % (Auto) 7.1 H Baso % (Auto) 0.9 Lymph # (Auto) 1.27 [place]one # (Auto) 0.7 H Eos # (Auto) 0.5 H Baso # (Auto) 0.1 Abs Immat Gran (auto) 0.02 Absolute Neuts (auto) 4.4 Absolute Nucleated RBC 0.000 Nucleated RBC % 0.0 Sodium 133 L Potassium 3.5 Chloride 103 Carbon Dioxide 26 Anion Gap 4 BUN 10 Creatinine 0.80 Estim Creat Clear Calc 102 Estimated GFR > 60 Glucose 97 POC Capillary Glucose 172 H 94 Calcium 9.0 Total Bilirubin 0.2 AST 23 ALT 11 Alkaline Phosphatase 70 Total Protein 7.0 Albumin 2.8 L 12/02/23 12/02/23 20:30 17:13 WBC RBC Hgb Hct MCV MCH MCHC RDW Plt Count MPV Immature Gran % (Auto) Neut % (Auto) Lymph % (Auto) [place] % (Auto) Eos % (Auto) Baso % (Auto) Lymph # (Auto) [place] # (Auto) Eos # (Auto) Baso # (Auto) Abs Immat Gran (auto) Absolute Neuts (auto) Absolute Nucleated RBC Nucleated RBC % Sodium Potassium Chloride Carbon Dioxide Anion Gap BUN Creatinine Estim Creat Clear Calc Estimated GFR Glucose POC Capillary Glucose 235 H 153 H Calcium Total Bilirubin AST ALT Alkaline Phosphatase Total Protein Albumin Preliminary micro results at discharge 11/30/23 17:19 Blood Culture - Preliminary Blood 11/30/23 16:27 Blood Culture - Preliminary Blood Procedures/Treatments: None Discharge Plan Discharge Attending physician on discharge: Bev Bolanos Consulting providers: Nahomi Flores Discharging Clinician: Nahomi Flores Anticipated Discharge Date/Time: 12/03/23 14:36 Patient Disposition: DE Intermediate/Asst Living Activity: as tolerated Diet: as tolerated Discharge Instructions: Finish all antibiotics as directed even if you are feeling better Your [place] catheter was changed this admission You were diagnosed with a UTI Patient Instructions: Antibiotic Form Patient Language: Danish Stand Alone Forms: General Discharge Information Follow-up/Referrals: Lawrence,MD Asael [Primary Care Provider] - 1 Week Discharge Medications: New nitrofurantoin monohyd/m-cryst [Macrobid] 100 mg Capsule 100 mg PO Q12HR Qty: 11 0RF Continued Eliquis 5 mg Tablet 5 mg PO Q12HR Qty: 60 0RF Hold Instructions: HOLD - resume when okay with the doctor sennosides-docusate sodium [Senna Plus] 8.6-50 mg Tablet 1 tablet PO BID acetaminophen [Tylenol] 325 mg Capsule 650 mg PO Q4-6H PRN (Reason: Pain (Scale Score 1-3)) melatonin 5 mg Tablet 5 mg PO HS Minerin Creme Cream 1 applic topical DAILY Qty: 113 0RF Rx Instructions: Bilateral lower extremity intact skin polyethylene glycol 3350 [Miralax] 17 gram Powder In Packet 17 g PO BID Qty: 30 0RF hydrocodone-acetaminophen 5-325 mg tablet 1 tablet PO Q8H PRN (Reason: Pain (Scale Score 4-6)) famotidine 20 mg tablet 20 mg PO DAILY magnesium oxide 400 mg (241.3 mg magnesium) tablet 400 mg PO 1200 Novolin 70-30 FlexPen U-100 100 unit/mL (70-30) insulin pen 25 unit SUBCUT QAM Novolin 70-30 FlexPen U-100 100 unit/mL (70-30) insulin pen 15 unit SUBCUT HS metoprolol succinate [Toprol XL] 25 mg Tablet Extended Release 24 Hr 75 mg PO QAM Qty: 90 0RF gabapentin 100 mg capsule 100 mg PO BID Qty: 20 0RF lisinopril 10 mg tablet 10 mg PO DAILY Qty: 30 0RF nystatin 100,000 unit/gram Cream 1 applic TOPICAL BID Rx Instructions: APPLY TO BILAT BUTTOCKS, SACRUM, POSTERIOR THIGH levothyroxine 100 mcg tablet 100 mcg PO DAILY ipratropium-albuterol 0.5 mg-3 mg(2.5 mg base)/3 mL Solution For Nebulization 3 ml INHALATION Q4H PRN (Reason: Wheezing) aspirin 81 mg Tablet,Delayed Release (Dr/Ec) 81 mg PO QAM Qty: 30 0RF pravastatin 40 mg Tablet 40 mg PO HS multivit with min-folic acid 0.4 mg Tablet 1 tablet PO DAILY valsartan 40 mg tablet 20 mg PO DAILY Qty: 30 0RF bupropion HCl 150 mg Tablet Extended Release 24 Hr 150 mg PO QAM Qty: 30 0RF Date of admission: 12/01/23 07:54 Primary Care Provider: Lawrence,Asael Admitting Provider: Toy Ba Attending physician on admission: Toy Ba Condition: Serious Quality VTE Prophylaxis VTE prophylaxis: pharmacologic ordered (Continue home Eliquis.)
[2023-12-03 17:00] LABS: Glucose Point of Care 133 mg/dl (65-105)
[2023-12-03] MEDS: GABAPENTIN 100 MG CAPSULE PO (17:15)
[2023-12-03 17:40] LABS: SARS-CoV-2 RNA PCR Negative (Negative)
[2023-12-03 20:29] VITALS: BP 195/77; PULSE 74; RESP 20; TEMP 36.4; O2SAT 100
[2023-12-03 20:51] VITALS: BP 160/85
[2023-12-03 21:05] LABS: Glucose Point of Care 157 mg/dl (65-105)
[2023-12-03] MEDS: PRAVASTATIN SODIUM 20 MG TABLET 40 MG PO (21:14)
[2023-12-03] MEDS: INSULIN HUMAN ISOPHAN/REGULAR 70/30 (*BKC) 100 UNITS/ML 15 UNITS SUB-Q (21:14)
[2023-12-03] MEDS: MELATONIN 5 MG TABLET PO (21:14)
== END 2023-12-03 21:29 | DRG 698 ==
LOC: ANHED 17:45 → ANH2MED 19:02
PROVIDERS: Internal Medicine; Admitting Provider General Practice; Emergency Provider Emergency Medicine; PCP Internal Medicine; Visit Provider Nurse Practitioner Acute Care
DX: T83.511A Infection and inflammatory reaction due to indwelling urethral catheter, initial encounter (principal); G93.41 Metabolic encephalopathy; I50.32 Chronic diastolic (congestive) heart failure; N12 Tubulo-interstitial nephritis, not specified as acute or chronic; I11.0 Hypertensive heart disease with heart failure; I87.2 Venous insufficiency (chronic) (peripheral); J44.9 Chronic obstructive pulmonary disease, unspecified; E86.0 Dehydration; E11.42 Type 2 diabetes mellitus with diabetic polyneuropathy; E66.01 Morbid (severe) obesity due to excess calories; E78.5 Hyperlipidemia, unspecified; E03.9 Hypothyroidism, unspecified; B96.20 Unspecified Escherichia coli [E. coli] as the cause of diseases classified elsewhere; K80.20 Calculus of gallbladder without cholecystitis without obstruction; K21.9 Gastro-esophageal reflux disease without esophagitis; G47.33 Obstructive sleep apnea (adult) (pediatric); F32.A Depression, unspecified; Z20.822 Contact with and (suspected) exposure to COVID-19; Z11.52 Encounter for screening for COVID-19; Z79.4 Long term (current) use of insulin; Z91.199 Patient's noncompliance with other medical treatment and regimen due to unspecified reason; Z87.891 Personal history of nicotine dependence; Z99.3 Dependence on wheelchair
CPT/HCPCS: 36415; 70450; 71260; 74177; 80053; 81001; 82948; 83036; 85025; 85610; 85730; 87040; 87077; 87086; 87088; 87186; 87635; 87637; 93005; 96361; 96365; 96375; 99285; A9270; G0378; J0696; J1815; J2185; J2270; J7030; Q9967

== ENCOUNTER 2023-12-21 09:52 | Inpatient (IN) | payer MEDICARE, MEDICAID, SELFPAY ==
[2023-12-21] VITALS (15 sets, daily range): BP systolic 107–190; BP diastolic 74–109; PULSE 78–120; RESP 16–20; TEMP 36.3–37.6; O2SAT 94–99; BMI 35.2
--- NOTE | ~2023-12-21 | XR_ITS ---
EXAMINATION: XR retrograde pyelo w/stent BI DATE: 12/22/2023 13:17 INDICATION: Right ureteral stone. Bilateral hydronephrosis. TECHNIQUE: 14 intraoperative fluoroscopic views of the abdomen and pelvis were obtained. I was not pr esent. Fluoroscopy exposure time was 43 seconds. COMPARISON: CT abdomen and pelvis 12/21/2023 FINDINGS: Bilateral retrograde pyelograms demonstrate moderate right hydronephrosis and hydroureter a nd mild left hydronephrosis and hydroureter. There are bilateral internal ureteral stents in expected positions. There are surgical clips from ventral hernia repair. IMPRESSION: 1. Moderate right hydronephrosis and hydroureter with right internal ureteral stent in expected posit ion. 2. Mild left hydronephrosis and hydroureter with left internal ureteral stent in expected position. Reviewed, dictated and finalized at location A. IMPRESSION: 1. Moderate right hydronephrosis and hydroureter with right internal ureteral s tent in expected position. 2. Mild left hydronephrosis and hydroureter with left internal ureteral stent i n expected position.
--- NOTE | ~2023-12-21 | CT_ITS ---
: CT brain wo con Ordering provider: Shay Chisholm MD History: 68 years Male with . AMS . Comparison: November 30, 2023 Technique: CT of the head without contrast. Radiation reduction technique utilized.The dose-length product was 605.33 mGy-cm. FINDINGS: BRAIN PARENCHYMA AND CSF SPACES: Mild leukoaraiosis and diffuse cortical atrophy. Mild atheromatous d isease. No midline shift, mass effect or hemorrhage. The brain parenchyma and CSF spaces are otherwi se normal. VISUALIZED PARANASAL SINUSES: Right maxillary sinus disease. MASTOIDS: Well aerated. BONES: The bones appear intact. SOFT TISSUES: Visualized nasopharynx is normal. Superficial soft tissues are normal. IMPRESSION: No acute intracranial findings. Reviewed, dictated and finalized at location A.
--- NOTE | ~2023-12-21 | CT_ITS ---
Clinical Indication: Cough, altered mental status, abdominal distention CT Scan of the Chest, Abdomen, and Pelvis with Contrast: Technique: Contiguous sections were acquired throughout the chest, abdomen, and pelvis after intraven ous administration of 100 cc of Omnipaque 350. Dose reduction technique was used on this scan by aubrey baeing automated exposure control and iterative reconstruction technique. The dose-length product (DL P) was 1955.16 mGy-cm. Comparison: 11/30/2023 Findings: There is no evidence of any significant mediastinal, hilar or axillary lymphadenopathy. Diffuse esoph ageal wall thickening present. Mediastinal vascular structures appear unremarkable. There is no evidence of pleural or pericardial effusion. The lungs are clear. No pulmonary nodules or infiltrates are noted. The liver, spleen, pancreas, and adrenal glands are within normal limits. Small layering gallstones p resent. There are multiple large right renal stones, largest measuring up to 3.2 x 2.0 cm in size. Th ere is moderate bilateral hydroureteronephrosis. There is air in the right ureter. No left renal ston e or left ureteral stones seen. There is a 8mm round stone at the right mid ureter (axial image 215). No evidence of aortic aneurysm. No lymphadenopathy. No bowel obstruction or bowel wall thickening. There is no evidence to suggest acute appendicitis. Urinary bladder is collapsed around a Coats catheter. Possible urinary bladder wall thickening despit e underdistention. No pelvic mass evident. No ascites. Impression: Findings compatible with extensive esophagitis. Correlate clinically. Multiple large right renal stones as well as 8 mm right mid ureteral stone. Moderate bilateral hydrou reteronephrosis. Air in the right ureter. This could be iatrogenic versus pyelitis. Correlate clinically. Possible cystitis. Correlate with urinalysis. Cholelithiasis. Reviewed, dictated and finalized at location . Impression: Findings compatible with extensive esophagitis. Correlate clinically. Multiple large right renal stones as well as 8 mm right mid ureteral stone. Mod erate bilateral hydroureteronephrosis. Air in the right ureter. This could be iatrogenic versus pyelitis. Correlate cl inically. Possible cystitis. Correlate with urinalysis. Cholelithiasis.
--- NOTE | 2023-12-21 09:55 | ECG_ITS ---
Test Date: 2023-12-21 10:02:11 Measurements Intervals [place] Rate: 104 P: 0 MD: 0 QRS: 87 QRSD: 114 T: -30 QT: 375 QTc: 494 Interpretive Statements ATRIAL FIBRILLATION WITH RAPID VENTRICULAR RESPONSE MODERATE INTRAVENTRICULAR CONDUCTION DELAY [110+ ms QRS DURATION] NONSPECIFIC ST & T-WAVE ABNORMALITY ABNORMAL ECG Compared to ECG 11/30/2023 16:42:36 T-wave abnormality now present Myocardial infarct finding no longer present Electronically Signed On 12-21-2023 10:49:15 CDT by Syd Rivas M.D.
[2023-12-21 10:21] LABS: Basophils Absolute Auto 0.1 K/mm3 (0.0-0.1); Basophils Percent Auto 0.5 % (0.2-1.2); Hematocrit 50.1 % (42.0-52.0); Hemoglobin 15.4 g/dL (14.0-18.0); Immature Granulocyte Absolute 0.09 K/mm3 (0.00-0.031); Immature Granulocyte Percent A 0.5 % (0-0.5); Lymphocytes Percent Auto 2.1 % (18.3-44.2); Mean Corpuscular HGB Conc 30.7 g/dl (32-36); Mean Corpuscular Hemoglobin 25.6 pg (26-34); Mean Corpuscular Volume 83.2 fl (80-100); Neutrophils Absolute Auto 17.7 K/mm3 (1.3-6.7); Neutrophils Percent Auto 91.9 % (45.5-73.1); Platelet Count Result 327 k/mm3 (150-375); Red Blood Count 6.02 M/mm3 (4.6-6.20); Red Cell Distribution Width 16.8 % (11.5-14.5); White Blood Count 19.2 K/mm3 (4.5-10.0)
--- NOTE | 2023-12-21 10:21 | ED_ITS ---
HPI - General Adult General Chief complaint: GI Bleed Stated complaint: coffee ground emesis History of Present Illness HPI narrative: 68-year-old male presenting to the emergency department for evaluation for altered mental status. Patient was somnolent upon to the arrival emergency de partment. Patient was reportedly having coffee-ground emesis had his facility. Patient denies any pain or discomfort at this time but patient is also slow to respond. Patient's pupils are pinpoint-patient had no response to Narcan. Patient does have chronic leg wounds. Patient had a large amount of sediment in his Coats catheter. Related Data Home Medications Medication Instructions Recorded Confirmed ipratropium 0.5 mg-albuterol 3 mg 3 ml inhalation Q4H PRN Wheezing 02/15/21 12/21/23 (2.5 mg base)/3 mL nebulization soln levothyroxine 100 mcg tablet 100 mcg PO DAILY 02/15/21 12/21/23 pravastatin 40 mg tablet 40 mg PO HS 12/08/21 12/21/23 multivitamin with minerals-folic 1 tablet PO DAILY 03/02/22 12/21/23 acid 0.4 mg tablet acetaminophen 325 mg capsule 650 mg PO Q4-6H PRN Pain (Scale 09/10/22 12/21/23 (Tylenol) Score 1-3) sennosides 8.6 mg-docusate sodium 1 tablet PO BID 09/10/22 12/21/23 50 mg tablet (Senna Plus) melatonin 5 mg tablet 5 mg PO HS 03/10/23 12/21/23 famotidine 20 mg tablet 20 mg PO DAILY 08/07/23 12/21/23 hydrocodone 5 mg-acetaminophen 325 1 tablet PO Q8H PRN Pain (Scale 08/07/23 12/21/23 mg tablet Score 4-6) insulin NPH-regular 70-30 U-100 15 unit subcut HS 08/07/23 12/21/23 insulin 100 unit/mL subcutaneous pen (Novolin 70-30 FlexPen U-100 Insulin) insulin NPH-regular 70-30 U-100 25 unit subcut COUNTS INCLUDE 234 BEDS AT THE [facility] 08/07/23 12/21/23 insulin 100 unit/mL subcutaneous pen (Novolin 70-30 FlexPen U-100 Insulin) magnesium oxide 400 mg (241.3 mg 400 mg PO 1200 08/07/23 12/21/23 magnesium) tablet nystatin 100,000 unit/gram topical 1 applic topical BID 11/30/23 12/21/23 cream Allergies Allergy/AdvReac Type Severity Reaction Status Date / Time No Known Allergies Allergy Verified 11/30/23 15:10 Review of Systems Review of Systems: All systems reviewed & are unremarkable except as noted in HPI and below PMFSH Past Medical History Medical History (Updated 12/21/23 @ 17:50 by Malorie Jones PA-C) Choledocholithiasis (05/2022) Chronic hyponatremia Chronic indwelling Coats catheter Chronic obstructive pulmonary disease Chronic osteomyelitis of left foot Chronic venous insufficiency Depression Diastolic congestive heart failure Gastroesophageal reflux disease Hyperlipidemia Hypertension Hypothyroidism Insulin dependent diabetes mellitus Kidney stones Morbid obesity Obstructive sleep apnea Non-compliant with CPAP. Paroxysmal atrial fibrillation Peripheral neuropathy Surgical History Surgical History History of abdominal surgery The patient has a large scar in the right lower abdomen just above the right groin and on palpation of his abdomen he has what feels like mesh that extends from side to side and has a course rough texture it also extends from just under the umbilicus to a couple of inches above the pubis History of appendectomy History of back surgery History of cataract extraction History of hemorrhoidectomy History of tonsillectomy and adenoidectomy Family History Family History Sibling Family history of heart disease in male family member before age 55 Family history of diabetes mellitus in first degree relative Patient's brother is Family history of obesity Hypertension Mother Family history of arthritis Patient's mother is Father Patient's father is Social History Social History Social History: Surrogate medical decision maker: Marlys Marrero, . Code status: Full code. Smoking packs per day: 1.5 Smoking cigarettes per day: 30.0 Years smoked: 15 Smoking pack-years: 22.50 Smoking status: Former smoker Tobacco type: cigarettes Second hand tobacco smoke exposure: Yes Alcohol intake: never Substance use: never Substance use type: unknown Lack of Transportation: No Lack of Food: Never True Current Housing: I Have Housing Concerned About Future Housing: No Difficulty Paying Gas/Electric Bills: No Difficulty Paying for Meds: No Currently Unemployed: No Education: High School Diploma/GED Difficulty w/ Childcare or Family Care: No Living arrangements: intermediate Additional living arrangements comments: Resident at [facility]. to Marlys. They have 2 sons. He is nonambulatory and depends on a [place] lift for transfer. 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 Spiritual care concerns: No Agree to blood products: Yes Exam 2 Narrative: APPEARANCE: Somnolent HEAD: normocephalic, atraumatic. EYES: PERRLA/EOMI, conjunctivae clear. NOSE: Normal no drainage EARS:TMS clear with good light reflex. THROAT: Pharynx clear, no exudate. NECK: Supple. No adenopathy, no masses. RESPIRATORY: Airway patent, respirations nonlabored. Clear to auscultation bilaterally, no rales, rhonchi, wheezing. CARDIOVASCULAR: Regular rate and rhythm without murmurs rubs or gallops. ABDOMINAL: Soft, nontender, nondistended, normal bowel sounds MUSCULOSKELETAL: Moves all extremities. Strength/ROM intact, No edema, No calf tenderness. NEURO: Alert. Cranial nerves II through XII intact. Good gait. Good coordination SKIN: Chronic lower extremity with Course Vital Signs Vital signs: Vital Signs Temperature 97.9 F 12/21/23 09:53 Pulse Rate 85 12/21/23 09:53 Respiratory Rate 16 12/21/23 09:53 Blood Pressure 153/74 H 12/21/23 09:53 Pulse Oximetry 99 12/21/23 09:53 Oxygen Delivery Room Air 12/21/23 09:53 Temperature 99.6 F 12/21/23 16:00 Pulse Rate 120 H 12/21/23 18:25 Respiratory Rate 20 12/21/23 16:00 Blood Pressure 171/91 H 12/21/23 16:00 Pulse Oximetry 96 12/21/23 16:00 Oxygen Delivery Room Air 12/21/23 16:00 Medical Decision Making [facility] Narrative Medical decision making narrative: 60-year-old male presents to the emergency department for evaluation for altered mental status. Patient does appear more sedate than typical. Patient is afebrile but does have a leukocytosis of 19.2. Hemoglobin of 15.4. INR 1.4. No significant abnormalities on the patient's ABG. BNP as 4600. Urine was significant for urinary tract infection. Patient was started on Rocephin. Patient was Hemoccult negative other digital rectal exam. CT scan did show a large mid ureteral calculi and urology was consulted. Differential Diagnosis Differential Diagnosis: Infected stone, UTI, cellulitis, TIA, CVA, sepsis, hypercapnia Vital Signs Vital Signs: Vital Signs Temperature 97.9 F 12/21/23 09:53 Pulse Rate 85 12/21/23 09:53 Respiratory Rate 16 12/21/23 09:53 Blood Pressure 153/74 H 12/21/23 09:53 Pulse Oximetry 99 12/21/23 09:53 Oxygen Delivery Room Air 12/21/23 09:53 Temperature 99.6 F 12/21/23 16:00 Pulse Rate 120 H 12/21/23 18:25 Respiratory Rate 20 12/21/23 16:00 Blood Pressure 171/91 H 12/21/23 16:00 Pulse Oximetry 96 12/21/23 16:00 Oxygen Delivery Room Air 12/21/23 16:00 Lab Data Lab results reviewed: Yes I reviewed the patient's lab results. 12/21/23 10:14 12/21/23 10:14 Labs: Lab Results 12/21/23 12/21/23 12/21/23 Range/Units 10:14 10:35 10:41 WBC 19.2 H (4.5-10.0) K/mm3 RBC 6.02 (4.6-6.20) M/mm3 Hgb 15.4 (14.0-18.0) g/dL Hct 50.1 (42.0-52.0) % MCV 83.2 (80-100) fl MCH 25.6 L (26-34) pg MCHC 30.7 L (32-36) g/dl RDW 16.8 H (11.5-14.5) % Plt Count 327 (150-375) k/mm3 MPV 10.0 (7.4-10.4) fl Immature Gran % (Auto) 0.5 (0-0.5) % Neut % (Auto) 91.9 H (45.5-73.1) % Lymph % (Auto) 2.1 L (18.3-44.2) % Ross % (Auto) 5.0 (2.6-8.5) % Eos % (Auto) 0.0 (0-4.4) % Baso % (Auto) 0.5 (0.2-1.2) % Lymph # (Auto) 0.40 L (0.9-3.2) K/mm3 Ross # (Auto) 1.0 H (0.1-0.6) K/mm3 Eos # (Auto) 0.0 (0-0.3) K/mm3 Baso # (Auto) 0.1 (0.0-0.1) K/mm3 Abs Immat Gran (auto) 0.09 H (0.00-0.031) K/mm3 Absolute Neuts (auto) 17.7 H (1.3-6.7) K/mm3 Absolute Nucleated RBC 0.000 (0.0-0.012) K/mm3 Nucleated RBC % 0.0 (0.0-0.2) % PT 17.5 H (11.1-14.7) Seconds INR 1.4 APTT 36.3 (22.3-36.8) Seconds Methemoglobin 0.3 (0-1.5) %THb Sodium 129 L (137-145) mmol/L Potassium 3.8 (3.4-5.0) mmol/L Chloride 91 L (98-107) mmol/L Carbon Dioxide 24 (22-30) mmol/L Anion Gap 14 H (4-12) mmol/L BUN 30 H D (9-20) mg/dL Creatinine 1.30 (0.7-1.3) mg/dL Estim Creat Clear Calc Not Reportable Estimated GFR 55 L (59 - ) Glucose 313 H (65-110) mg/dL Lactic Acid (0.7-2.0) mmol/L Calcium 10.3 H (8.4-10.2) mg/dL Total Bilirubin 0.7 (0.2-1.3) mg/dL AST 49 (17-59) U/L ALT 30 (6-50) U/L Alkaline Phosphatase 120 (38-126) U/L NT-Pro-B Natriuret Pep 4600 H (19.9-100) pg/mL Total Protein 9.0 H (6.3-8.2) g/dL Albumin 3.6 (3.5-5.1) g/dL Urine Color (Yellow) Urine Appearance (Clear) Urine pH (5.0-9.0) Ur Specific [place] (1.001-1.035) Urine Protein (Negative) mg/dL Urine Glucose (UA) (Negative) mg/dL Urine Ketones (Negative) mg/dL Ur Blood (Man) (Negative) Urine Nitrate (Negative) Urine Bilirubin (Negative) Urine Urobilinogen (<2.0) mg/dL Add Ur Microanalysis Leukocyte Esterase Rfl (Negative) RAZ/UL Urine RBC (0-2) /hpf Urine WBC (0-3) /hpf Ur Squamous Epith Cells (Few) /hpf Urine Bacteria /hpf Urine Casts Urine Yeast (Budding) (None) /hpf Blood Type O Positive Antibody Screen Negative 12/21/23 12/21/23 Range/Units 12:49 14:06 WBC (4.5-10.0) K/mm3 RBC (4.6-6.20) M/mm3 Hgb (14.0-18.0) g/dL Hct (42.0-52.0) % MCV (80-100) fl MCH (26-34) pg MCHC (32-36) g/dl RDW (11.5-14.5) % Plt Count (150-375) k/mm3 MPV (7.4-10.4) fl Immature Gran % (Auto) (0-0.5) % Neut % (Auto) (45.5-73.1) % Lymph % (Auto) (18.3-44.2) % Ross % (Auto) (2.6-8.5) % Eos % (Auto) (0-4.4) % Baso % (Auto) (0.2-1.2) % Lymph # (Auto) (0.9-3.2) K/mm3 Ross # (Auto) (0.1-0.6) K/mm3 Eos # (Auto) (0-0.3) K/mm3 Baso # (Auto) (0.0-0.1) K/mm3 Abs Immat Gran (auto) (0.00-0.031) K/mm3 Absolute Neuts (auto) (1.3-6.7) K/mm3 Absolute Nucleated RBC (0.0-0.012) K/mm3 Nucleated RBC % (0.0-0.2) % PT (11.1-14.7) Seconds INR APTT (22.3-36.8) Seconds Methemoglobin (0-1.5) %THb Sodium (137-145) mmol/L Potassium (3.4-5.0) mmol/L Chloride (98-107) mmol/L Carbon Dioxide (22-30) mmol/L Anion Gap (4-12) mmol/L BUN (9-20) mg/dL Creatinine (0.7-1.3) mg/dL Estim Creat Clear Calc Estimated GFR (59 - ) Glucose (65-110) mg/dL Lactic Acid 1.9 (0.7-2.0) mmol/L Calcium (8.4-10.2) mg/dL Total Bilirubin (0.2-1.3) mg/dL AST (17-59) U/L ALT (6-50) U/L Alkaline Phosphatase (38-126) U/L NT-Pro-B Natriuret Pep (19.9-100) pg/mL Total Protein (6.3-8.2) g/dL Albumin (3.5-5.1) g/dL Urine Color Yellow (Yellow) Urine Appearance Turbid H (Clear) Urine pH 5.5 (5.0-9.0) Ur Specific [place] 1.036 H (1.001-1.035) Urine Protein 3+ H (Negative) mg/dL Urine Glucose (UA) 1+ H (Negative) mg/dL Urine Ketones 1+ H (Negative) mg/dL Ur Blood (Man) 3+ H (Negative) Urine Nitrate Negative (Negative) Urine Bilirubin Negative (Negative) Urine Urobilinogen 1.0 (<2.0) mg/dL Add Ur Microanalysis Reviewed Leukocyte Esterase Rfl 3+ H (Negative) RAZ/UL Urine RBC >100 H (0-2) /hpf Urine WBC >100 H (0-3) /hpf Ur Squamous Epith Cells Many H (Few) /hpf Urine Bacteria 4+ H /hpf Urine Casts >20 Urine Yeast (Budding) Present H (None) /hpf Blood Type Antibody Screen ABG Data ABG results: 12/21/23 10:35 Puncture Site Left radial ABG pH 7.416 ABG pCO2 40.1 ABG pO2 61.5 L ABG PO2/FiO2 Ratio 2.93 ABG HCO3 25.2 ABG O2 Saturation 92.0 L ABG O2 Content 19.9 ABG Base Excess 0.7 A-a Gradient 40.2 Oxyhemoglobin 90.1 Carboxyhemoglobin 1.3 Reduced Hemoglobin 8.3 H Total Hemoglobin 15.7 O2 Delivery Device Room air O2 Liters/Min Not Reportable FiO2 21 Imaging Data Radiologist's impression: Impressions Head CT 12/21/23 12:00 IMPRESSION: No acute intracranial findings. Chest/Abdomen/Pelvis CT 12/21/23 12:17 Impression: Findings compatible with extensive esophagitis. Correlate clinically. Multiple large right renal stones as well as 8 mm right mid ureteral stone. Moderate bilateral hydroureteronephrosis. Air in the right ureter. This could be iatrogenic versus pyelitis. Correlate clinically. Possible cystitis. Correlate with urinalysis. Cholelithiasis. Critical Care Time Critical Care Time Critical Care Time: Yes Total Critical Care Time: 35 Discharge Plan Discharge Clinical Impression: AMS (altered mental status), Acute UTI, Acute vomiting, Calculi, ureter, Chronic wound of extremity Patient Disposition: Still a Patient Condition: Serious
[2023-12-21] MEDS: PANTOPRAZOLE SODIUM IV 40 MG VIAL 80 MG IV PUSH (10:30)
[2023-12-21] MEDS: ONDANSETRON INJ 4 MG/2 ML VIAL IV PUSH (10:30)
[2023-12-21 10:31] LABS: INR 1.4; Prothrombin Time 17.5 Seconds (11.1-14.7)
[2023-12-21] MEDS: NALOXONE HCL 0.4 MG/ML VIAL IV PUSH (10:31)
[2023-12-21 10:32] LABS: Partial Thromboplastin Time 36.3 Seconds (22.3-36.8)
[2023-12-21] MEDS: FAMOTIDINE 20 MG/2 ML VIAL IV PUSH (10:32)
[2023-12-21 10:40] LABS: Alveolar/Arterial O2 Gradient 40.2 mmHg; Base Excess ABG 0.7 mEq/l (+/-2.0); Carboxyhemoglobin 1.3 % THb (0-2.0); Fractional Inspired Oxygen 21 %; HCO3 ABG 25.2 mEq/l (22.0-26.0); Methemoglobin ABG 0.3 %THb (0-1.5); Oxygen Content ABG 19.9 %vol (16.0-22.0); Oxyhemoglobin 90.1 % THb (90.0-100.0); PCO2 ABG 40.1 mmHg (35.0-45.0); PO2 ABG 61.5 mmHg (80.0-100.0); PO2 FiO2 Ratio Arterial Blood 2.93 %; Reduced Hemoglobin 8.3 %THb (0-5.0); Total Hemoglobin 15.7 g/dL (12.0-18.0); pH ABG 7.416 (7.350-7.450)
[2023-12-21 10:41] LABS: Device ROOM AIR; Modified Allen's Test Pass; Site Drawn LEFT RADIAL
[2023-12-21 10:55] LABS: Alanine Aminotransferase 30 U/L (6-50); Albumin Level 3.6 g/dL (3.5-5.1); Alkaline Phosphatase 120 U/L (38-126); Anion Gap 14 mmol/L (4-12); Aspartate Amino Transferase 49 U/L (17-59); Bilirubin,Total 0.7 mg/dL (0.2-1.3); Blood Urea Nitrogen 30 mg/dL (9-20); Calcium 10.3 mg/dL (8.4-10.2); Carbon Dioxide 24 mmol/L (22-30); Chloride 91 mmol/L (98-107); Estimated Glomerular Filt Rate 55; Glucose 313 mg/dL (65-110); Potassium 3.8 mmol/L (3.4-5.0); Sodium 129 mmol/L (137-145)
[2023-12-21 11:09] LABS: NT Pro B Type Natriuretic Pept 4600 pg/mL (19.9-100)
[2023-12-21 13:10] LABS: Add Urine Microscopic? YES; Appearance Urine Turbid (Clear); Bacteria Urine 4+ /hpf; Bilirubin Urine Negative (Negative); Blood Urine 3+ (Negative); Budding Yeast Urine Present /hpf; Color Urine Yellow (Yellow); Glucose Urine UA 1+ mg/dL (Negative); Ketones Urine 1+ mg/dL (Negative); Leukocyte Esterase Ur 3+ LEU/UL (Negative); Need Manual Microscopic Reviewed; Nitrate Urine Negative (Negative); Non Pathogenic Casts >20; Protein Urine 3+ mg/dL (Negative); RBC Urine >100 /hpf (0-2); Specific Grav Ur 1.036 (1.001-1.035); Squamous Epithelial Cell Urine Many /hpf (Few); WBC Urine >100 /hpf (0-3); pH Urine 5.5 (5.0-9.0)
--- NOTE | 2023-12-21 13:35 | PM.IMHP ---
H&P: HPI History of Present Illness Date/Time: 12/21/23 13:35 Chief Complaint: coffee ground emesis Narrative: This is a 67-year-old male with dementia, paroxysmal atrial fibrillation, diastolic congestive heart failure, insulin-dependent diabetes, hypothyroidism, hypertension, untreated obstructive sleep apnea, chronic venous stasis dermatitis, indwelling Coats catheter, kidney stones, chronic left heel wound with history of osteomyelitis of the left calcaneus with previous cultures growing out Pseudomonas and MRSA, and other comorbidities who presented to the emergency department via EMS from [facility] with reports of coffee ground emesis. He is alert and oriented x1 at baseline and is unable to provide any meaningful history and as such a majority the following is obtained from his EMR; I have not been able to get a hold of his as of yet. He is known to the hospitalist service and was just admitted to hospital several weeks ago with altered mental status and emphysematous pyelitis. Urine culture grew out ESBL E coli and he was discharged with a prescription for nitrofurantoin. He was sent in today evaluation of reported coffee-ground emesis. The patient says his stomach hurts but he is not able to qualify. He has tenderness to palpation throughout the abdomen on exam which is difficult to localize. Stool was Hemoccult negative on rectal exam per ED physician but he does appear to have dry coffee-ground like emesis in his mustache and patient reports vomiting earlier this morning. He did not answer any other questions. In the ED: He was afebrile on arrival. Blood pressures have been running in the 140s to 170s systolic. Labs were significant for WBC count of 19.2, sodium 129, chloride 91, anion gap 14, BUN 30, creatinine 1.30, lactic acid 1.9, glucose 313, calcium 10.3, proBNP 4600. Urine was concentrated with 3+ protein, +glucose, 1+ ketones, 3+ blood, 3+ leukocyte esterase greater than 100 RBC and WBC, many squamous cells, 4+ bacteria, budding yeast, and greater than [address] showed no acute findings. CT of the abdomen and pelvis showed findings compatible with extensive esophagitis, multiple large right renal stones as well as an 8 mm right mid ureteral stone with moderate bilateral hydroureteronephrosis, air in the right ureter, an cholelithiasis. He was given ceftriaxone 1 g, pantoprazole 80 mg, and ondansetron 4 mg. He was also given Narcan 0.4 mg as his pupils were pinpoint, with no response. He is being admitted in this setting for further treatment and evaluation. Review of Systems Review of Systems: Unable to obtain accurately given his clinical condition as detailed above. [facility] Past Medical History Medical History (Updated 12/21/23 @ 17:50 by Malorie Jones PA-C) Choledocholithiasis (05/2022) Chronic hyponatremia Chronic indwelling Coats catheter Chronic obstructive pulmonary disease Chronic osteomyelitis of left foot Chronic venous insufficiency Depression Diastolic congestive heart failure Gastroesophageal reflux disease Hyperlipidemia Hypertension Hypothyroidism Insulin dependent diabetes mellitus Kidney stones Morbid obesity Obstructive sleep apnea Non-compliant with CPAP. Paroxysmal atrial fibrillation Peripheral neuropathy Surgical History Surgical History History of abdominal surgery The patient has a large scar in the right lower abdomen just above the right groin and on palpation of his abdomen he has what feels like mesh that extends from side to side and has a course rough texture it also extends from just under the umbilicus to a couple of inches above the pubis History of appendectomy History of back surgery History of cataract extraction History of hemorrhoidectomy History of tonsillectomy and adenoidectomy Family History Family History Sibling Family history of heart disease in male family member before age 55 Family history of diabetes mellitus in first degree relative Patient's brother is Family history of obesity Hypertension Mother Family history of arthritis Patient's mother is Father Patient's father is Social History Social History Social History: Surrogate medical decision maker: Marlys Marrero, . Code status: Full code. Smoking packs per day: 1.5 Smoking cigarettes per day: 30.0 Years smoked: 15 Smoking pack-years: 22.50 Smoking status: Former smoker Tobacco type: cigarettes Second hand tobacco smoke exposure: Yes Alcohol intake: unknown Substance use: unknown Substance use type: unknown Lack of Transportation: No Lack of Food: Never True Current Housing: I Have Housing Concerned About Future Housing: No Difficulty Paying Gas/Electric Bills: No Difficulty Paying for Meds: No Currently Unemployed: No Education: High School Diploma/GED Difficulty w/ Childcare or Family Care: No Living arrangements: snf Additional living arrangements comments: Resident at [facility]. to Marlys. They have 2 sons. He is nonambulatory and depends on a [place] lift for transfer. 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 Spiritual care concerns: No Agree to blood products: Yes Meds Home Medications and Allergies Home Medications Medication Instructions Recorded Confirmed Type ipratropium 0.5 mg-albuterol 3 mg 3 ml inhalation Q4H PRN Wheezing 02/15/21 12/21/23 History (2.5 mg base)/3 mL nebulization soln levothyroxine 100 mcg tablet 100 mcg PO DAILY 02/15/21 12/21/23 History aspirin 81 mg tablet,delayed 81 mg PO QAM #30 tabs 02/19/21 12/21/23 Rx release pravastatin 40 mg tablet 40 mg PO HS 12/08/21 12/21/23 History multivitamin with minerals-folic 1 tablet PO DAILY 03/02/22 12/21/23 History acid 0.4 mg tablet apixaban 5 mg tablet (Eliquis) 5 mg PO Q12HR #60 tabs 07/01/22 12/21/23 Rx acetaminophen 325 mg capsule 650 mg PO Q4-6H PRN Pain (Scale 09/10/22 12/21/23 History (Tylenol) Score 1-3) sennosides 8.6 mg-docusate sodium 1 tablet PO BID 09/10/22 12/21/23 History 50 mg tablet (Senna Plus) melatonin 5 mg tablet 5 mg PO HS 03/10/23 12/21/23 History bupropion HCl 150 mg 24 hr tablet, 150 mg PO QAM #30 tabs 05/23/23 12/21/23 Rx extended release valsartan 40 mg tablet 20 mg PO DAILY #30 tabs 05/23/23 12/21/23 Rx lanolin alcohols-mineral 1 applic topical DAILY #113 grams 06/26/23 12/21/23 Rx oil-w.petrolatum-ceresin topical cream (Minerin Creme topical) polyethylene glycol 3350 17 gram 17 g PO BID #30 ea 06/26/23 12/21/23 Rx oral powder packet (Miralax) famotidine 20 mg tablet 20 mg PO DAILY 08/07/23 12/21/23 History hydrocodone 5 mg-acetaminophen 325 1 tablet PO Q8H PRN Pain (Scale 08/07/23 12/21/23 History mg tablet Score 4-6) insulin NPH-regular 70-30 U-100 15 unit subcut HS 08/07/23 12/21/23 History insulin 100 unit/mL subcutaneous pen (Novolin 70-30 FlexPen U-100 Insulin) insulin NPH-regular 70-30 U-100 25 unit subcut QAM 08/07/23 12/21/23 History insulin 100 unit/mL subcutaneous pen (Novolin 70-30 FlexPen U-100 Insulin) magnesium oxide 400 mg (241.3 mg 400 mg PO 1200 08/07/23 12/21/23 History magnesium) tablet metoprolol succinate 25 mg 75 mg PO QAM #90 tabs 08/18/23 12/21/23 Rx tablet,extended release 24 hr (Toprol XL) gabapentin 100 mg capsule 100 mg PO BID #20 caps 11/03/23 12/21/23 Rx lisinopril 10 mg tablet 10 mg PO DAILY #30 tabs 11/03/23 12/21/23 Rx nystatin 100,000 unit/gram topical 1 applic topical BID 11/30/23 12/21/23 History cream Allergies Allergy/AdvReac Type Severity Reaction Status Date / Time No Known Allergies Allergy Verified 11/30/23 15:10 Vital Signs Vital Signs - 24 hr 12/21/23 09:53 Temperature 97.9 F Pulse Rate 85 Respiratory Rate 16 Blood Pressure 153/74 H Pulse Oximetry 99 Oxygen Delivery Room Air Exam Narrative: General:?Chronically ill-appearing gentleman in the semi-Berry position in bed. Weight: 124.6 kg. BMI: 35.3. HEENT:??Normocephalic, atraumatic.? PERRL, EOMI. Right eye dysconjugate gaze. Sclera anicteric. Conjunctiva mildly injected. Tacky mucous membranes.?Small amount of dried coffee-ground appearing emesis on mustache. Neck:??Supple. Exam limited due to neck circumference. No obvious JVD or lymphadenopathy. Respiratory:?Respirations are nonlabored and he seems in no distress. Lung sounds are diminished due to body habitus and poor effort but are otherwise clear to auscultation. Cardiovascular:?Irregularly irregular rate and rhythm. Gastrointestinal:??Abdomen is soft and morbidly obese. He grimaces with palpation throughout the entire abdomen. No guarding or obvious rebound tenderness. Skin:?Warm and dry. Chronic hyperpigmentation and changes of stasis dermatitis of the lower legs with scabs, superficial skin tear, and scaly skin. Right heel is boggy with a stage I pressure ulcer. There is a chronic wound on the left heel which is dry in the center but has nonviable appearing tissue on the perimeter with some mucoid drainage.. Toenails are thick and yellow. Genitourinary: Coats catheter in place draining cloudy urine with much sediment. Extremities:??No cyanosis or clubbing. Chronic pitting and nonpitting edema of the lower legs. Radial pulses palpable. Pedal pulses diminished. Neurological: He is alert and follows some commands though he only answers a few questions. He is able to tell me his name only. Noted to move upper and lower extremities a bit but his left arm seems to be a bit contracted. No gross facial asymmetry. Psychiatric:?Chronically confused. Cooperative. H&P: Results Labs Labs: Short CBC 12/21/23 Range/Units 10:14 WBC 19.2 H (4.5-10.0) K/mm3 Hgb 15.4 (14.0-18.0) g/dL Hct 50.1 (42.0-52.0) % Plt Count 327 (150-375) k/mm3 BMP 12/21/23 10:14 Sodium 129 L Potassium 3.8 Chloride 91 L Carbon Dioxide 24 BUN 30 H D Creatinine 1.30 Glucose 313 H Calcium 10.3 H Liver Function 12/21/23 Range/Units 10:14 Total Bilirubin 0.7 (0.2-1.3) mg/dL AST 49 (17-59) U/L ALT 30 (6-50) U/L Alkaline Phosphatase 120 (38-126) U/L Albumin 3.6 (3.5-5.1) g/dL Urine 12/21/23 Range/Units 12:49 Urine Color Yellow (Yellow) Urine Appearance Turbid H (Clear) Urine pH 5.5 (5.0-9.0) Ur Specific [place] 1.036 H (1.001-1.035) Urine Protein 3+ H (Negative) mg/dL Urine Glucose (UA) 1+ H (Negative) mg/dL Impressions Head CT 12/21/23 12:00 IMPRESSION: No acute intracranial findings. Chest/Abdomen/Pelvis CT 12/21/23 12:17 Impression: Findings compatible with extensive esophagitis. Correlate clinically. Multiple large right renal stones as well as 8 mm right mid ureteral stone. Moderate bilateral hydroureteronephrosis. Air in the right ureter. This could be iatrogenic versus pyelitis. Correlate clinically. Possible cystitis. Correlate with urinalysis. Cholelithiasis. Assessment and Plan Assessment and plan (1) Hematemesis: Code(s): K92.0 - Hematemesis Status: Acute (2) Esophagitis: Code(s): K20.90 - Esophagitis, unspecified without bleeding Status: Acute (3) Right ureteral stone: Code(s): N20.1 - Calculus of ureter Status: Acute (4) Hydroureteronephrosis: Code(s): N13.30 - Unspecified hydronephrosis Status: Acute (5) Bacteriuria with pyuria: Code(s): R82.71 - Bacteriuria; R82.81 - Pyuria Status: Acute (6) Non healing left heel wound: Code(s): S91.302A - Unspecified open wound, left foot, initial encounter Status: Acute (7) Chronic hyponatremia: Code(s): E87.1 - Hypo-osmolality and hyponatremia Status: Acute (8) Insulin dependent diabetes mellitus: Status: Chronic (9) Chronic anticoagulation: Code(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 Labs, imaging, EKG, and all reports were personally reviewed. He has had no further episodes of emesis since arrival however does appear to have dried coffee-ground emesis on his mustache. CT scan shows evidence of extensive esophagitis and he has been started on pantoprazole 40 mg IV b.i.d. GI has been consulted and he will be NPO after midnight for possible EGD tomorrow. CT also showed multiple large right renal stones an 8 mm right mid ureteral stone with moderate bilateral hydroureteronephrosis. Dr. Ruiz, Urology, was consulted and plans on cystoscopy and ureteral stent tomorrow. Urinalysis is once again abnormal however he does have a chronic indwelling Coats catheter. It is difficult to say whether or not this represents a true infection as he cannot provide history however he is afebrile although his WBC count is 19,000. He received ceftriaxone 1 g in the ED which will be changed to meropenem given history of ESBL E coli in the urine. Urine culture is pending. Additionally he has a chronic left heel wound which has grown out MRSA and Pseudomonas though it does not look acutely infected superficially we will add vancomycin for now. Wound nurse has been consulted. He has chronic hyponatremia and sodium is 133, near his baseline, when corrected for glucose. Continue basal insulin. Initiate sliding scale insulin, Accu-Cheks, and hypoglycemic protocol. He is currently in AFib with heart rates in the upper 90s to low 100s. Apixaban on hold given reports of hematemesis. Hold aspirin as well. The rest of his home medications will be reviewed and resumed as appropriate. Findings and treatment plan were discussed with the patient. Questions were solicited and answered to satisfaction. The patient's medical management will be taken over by the hospitalist team in a.m. Quality If No VTE Prophylaxis Answer both mechanical and pharmacologic: Reason no mechanical VTE proph: medical contraindication (lower extremity wounds) Reason no pharmacologic proph: medical contraindication (hematemesis) The patient has been admitted under observation status. Hospitalist [facility] Advance Care Plan I have confirmed that the patient's Advanced Care Plan is present, code status is documented, or surrogate decision maker is listed in patient medical record.: Yes Medication Reconciliation I have utilized all available resources to obtain, update and review the patients current medications (includes all prescriptions, OTC, herbals, cannabis, and nutritional supplements).: Yes
[2023-12-21 14:20] LABS: Lactic Acid Reflex 1.9 mmol/L (0.7-2.0)
--- NOTE | 2023-12-21 14:45 | PC.NURSE ---
dressings to BLE cut off by ERP at this time
--- NOTE | 2023-12-21 14:50 | PC.NURSE ---
BLE have discoloration, large left heel wound per [facility] paperwork has been receiving daily drsg changes
--- NOTE | 2023-12-21 15:05 | P.CONUR_ITS ---
Assessment and Plan Assessment and plan (1) Right renal stone: Code(s): N20.0 - Calculus of kidney Status: Acute (2) Calculi, ureter: Code(s): N20.1 - Calculus of ureter Status: Acute (3) Chronic indwelling Coats catheter: Code(s): Z97.8 - Presence of other specified devices Status: Acute (4) Abnormal urinalysis: Code(s): R82.90 - Unspecified abnormal findings in urine Status: Acute Plan plan as per history of present illness. He has been admitted to the hospitalist service. He is clinically stable without fever and has normal vital signs. No signs of sepsis. Many of the findings on his CT scan are chronic in nature. Plan for right ureteral stent/ possible left ureteral stent tomorrow. If he clinically decompensates overnight please inform us. No OR availability currently. Clinically procedure is not emergent. I discussed the situation with his With his [id number] and she agrees to intervention outlined Urology Consult Note HPI Date Seen: 12/21/23 Requesting Physician: Paul Rosado MD Primary Care Provider: Asael BravoMD Consult Narrative Narrative: Taye Marrero Jr. is a 68 year old male who has multiple medical comorbidities and is chronically ill. He is alert ordered times 1-2 at baseline. He resides in a prison. He has a known history of large right nephrolithiasis. He is not a candidate for surgery on this as he would require a percutaneous nephrolithotomy. He has a chronic indwelling Coats catheter which he has had for some time. He has suspected vesico ureteral reflux from chronic bladder dysfunction. He came into the ER today for upper GI bleed and coffee-ground emesis. As part of the workup they did a CT scan. It shows moderate bilateral hydronephrosis. I can follow the ureters all the way down to the bladder consistent with vesicoureteral reflux. He has some air in the right collecting system which is chronic in nature. He also has a right ureteral stone as well as a large renal stone. He has been seen by myself. He has been seen by the medicine team. He is stable but has an abnormal urinalysis consistent with his chronic catheterization. He also has an elevated white blood cell count. He is afebrile. He is nontoxic appearing. Lactate is normal. Vital signs are stable. he has a chronic pressure sore in his heel. Due to the ureteral stone we should place a right ureteral stent, possible left ureteral stent. There is currently no or availability. The patient is stable. We will plan on the procedure tomorrow unless he clinically decompensates. He is being admitted to medicine service for his multiple medical issues. He will be placed on broad-spectrum antibiotics. I spoken to the admitting provider personally. Review of Systems 2 Review of Systems: ROS unobtainable: Yes unobtainable due to mental status PMFSH Past Medical History Medical History A-fib Choledocholithiasis (05/2022) Chronic indwelling Coats catheter Chronic obstructive pulmonary disease Chronic osteomyelitis of left foot Chronic venous insufficiency Depression Diastolic congestive heart failure Gastroesophageal reflux disease Hyperlipidemia Hypertension Hypothyroidism Insulin dependent diabetes mellitus Kidney stones Morbid obesity Obstructive sleep apnea Non-compliant with CPAP. Paroxysmal atrial fibrillation Peripheral neuropathy Surgical History Surgical History History of abdominal surgery The patient has a large scar in the right lower abdomen just above the right groin and on palpation of his abdomen he has what feels like mesh that extends from side to side and has a course rough texture it also extends from just under the umbilicus to a couple of inches above the pubis History of appendectomy History of back surgery History of cataract extraction History of hemorrhoidectomy History of tonsillectomy and adenoidectomy Family History Family History Sibling Family history of obesity Hypertension Family history of diabetes mellitus in first degree relative Family history of heart disease in male family member before age 55 Patient's sister is in good health Patient's brother is Mother Family history of arthritis Family history of malignant neoplasm Patient's mother is Father Patient's father is Other Malignant neoplasm of prostate Social History Social History Social History: Surrogate medical decision maker: Marlys Marrero, . Code status: Full code. Smoking packs per day: 1.5 Smoking cigarettes per day: 30.0 Years smoked: 15 Smoking pack-years: 22.50 Smoking status: Former smoker Tobacco type: cigarettes Second hand tobacco smoke exposure: Yes Alcohol intake: unknown Substance use: unknown Substance use type: unknown Lack of Transportation: No Lack of Food: Never True Current Housing: I Have Housing Concerned About Future Housing: No Difficulty Paying Gas/Electric Bills: No Difficulty Paying for Meds: No Currently Unemployed: No Education: High School Diploma/GED Difficulty w/ Childcare or Family Care: No Living arrangements: prison Additional living arrangements comments: Resident at [facility]. to Marlys. They have 2 sons. 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 Spiritual care concerns: No Agree to blood products: Yes Meds Home Medications and Allergies Home Medications Medication Instructions Recorded Confirmed Type ipratropium 0.5 mg-albuterol 3 mg 3 ml inhalation Q4H PRN Wheezing 02/15/21 11/30/23 History (2.5 mg base)/3 mL nebulization soln levothyroxine 100 mcg tablet 100 mcg PO DAILY 02/15/21 11/30/23 History aspirin 81 mg tablet,delayed 81 mg PO QAM #30 tabs 02/19/21 11/30/23 Rx release pravastatin 40 mg tablet 40 mg PO HS 12/08/21 11/30/23 History multivitamin with minerals-folic 1 tablet PO DAILY 03/02/22 11/30/23 History acid 0.4 mg tablet apixaban 5 mg tablet (Eliquis) 5 mg PO Q12HR #60 tabs 07/01/22 11/30/23 Rx acetaminophen 325 mg capsule 650 mg PO Q4-6H PRN Pain (Scale 09/10/22 11/30/23 History (Tylenol) Score 1-3) sennosides 8.6 mg-docusate sodium 1 tablet PO BID 09/10/22 11/30/23 History 50 mg tablet (Senna Plus) melatonin 5 mg tablet 5 mg PO HS 03/10/23 11/30/23 History bupropion HCl 150 mg 24 hr tablet, 150 mg PO QAM #30 tabs 05/23/23 11/30/23 Rx extended release valsartan 40 mg tablet 20 mg PO DAILY #30 tabs 05/23/23 11/30/23 Rx lanolin alcohols-mineral 1 applic topical DAILY #113 grams 06/26/23 11/30/23 Rx oil-w.petrolatum-ceresin topical cream (Minerin Creme topical) polyethylene glycol 3350 17 gram 17 g PO BID #30 ea 06/26/23 11/30/23 Rx oral powder packet (Miralax) famotidine 20 mg tablet 20 mg PO DAILY 08/07/23 11/30/23 History hydrocodone 5 mg-acetaminophen 325 1 tablet PO Q8H PRN Pain (Scale 08/07/23 11/30/23 History mg tablet Score 4-6) insulin NPH-regular 70-30 U-100 15 unit subcut HS 08/07/23 11/30/23 History insulin 100 unit/mL subcutaneous pen (Novolin 70-30 FlexPen U-100 Insulin) insulin NPH-regular 70-30 U-100 25 unit subcut QAM 08/07/23 11/30/23 History insulin 100 unit/mL subcutaneous pen (Novolin 70-30 FlexPen U-100 Insulin) magnesium oxide 400 mg (241.3 mg 400 mg PO 1200 08/07/23 11/30/23 History magnesium) tablet metoprolol succinate 25 mg 75 mg PO QAM #90 tabs 08/18/23 11/30/23 Rx tablet,extended release 24 hr (Toprol XL) gabapentin 100 mg capsule 100 mg PO BID #20 caps 11/03/23 11/30/23 Rx lisinopril 10 mg tablet 10 mg PO DAILY #30 tabs 11/03/23 11/30/23 Rx nystatin 100,000 unit/gram topical 1 applic topical BID 11/30/23 11/30/23 History cream nitrofurantoin 100 mg PO Q12HR #11 caps 12/03/23 Rx monohydrate/macrocrystals 100 mg capsule (Macrobid) Allergies Allergy/AdvReac Type Severity Reaction Status Date / Time No Known Allergies Allergy Verified 11/30/23 15:10 Vital Signs Vital Signs - 24 hr 12/21/23 09:53 12/21/23 10:31 12/21/23 11:15 Temperature 97.9 F 97.3 F L Pulse Rate 85 97 96 Respiratory Rate 16 20 18 Blood Pressure 153/74 H 156/102 H 158/98 H Pulse Oximetry 99 98 94 Oxygen Delivery Room Air 12/21/23 12:23 12/21/23 12:50 12/21/23 13:01 Temperature 97.8 F 97.9 F Pulse Rate 93 92 92 Respiratory Rate 20 19 17 Blood Pressure 174/100 H 107/104 H 190/109 H Pulse Oximetry 96 98 Oxygen Delivery 12/21/23 14:29 Temperature 97.9 F Pulse Rate 78 Respiratory Rate 16 Blood Pressure 171/104 H Pulse Oximetry 98 Oxygen Delivery Exam Narrative: no acute distress, not communicative. Afebrile. Vital signs stable. He is at his baseline mentation Const: General: no acute distress and overweight; No uncomfortable or well groomed Nutritional Appearance: obese Orientation/consciousness: No patient oriented x3 Limitations: behavioral limitations and physical limitations HENMT: Head: normal to inspection Eyes: General: appearance normal, both eyes and all related structures Neck: Neck: normal visual inspection and full ROM Chest: Chest palpation & inspection: normal inspection of the chest Resp: Effort & Inspection: normal respiratory effort, no audible wheezes and no cough GI: Inspection: normal to inspection : Other: hidden phallus. Coats changed in the ER. Urine is produced appearing. Scrotum normal Urinary Catheter: Urinary Catheter: patent and draining Back/Spine/Pelvis: Back: no CVA tenderness Skin: Other: venous stasis changes of lower extremities. Chronic wound on heel. Pressure sores Neuro: General: No patient oriented x3 and moves all extremities Psych: Appearance: poorly kempt and disheveled Results Labs 12/21/23 10:14 12/21/23 10:14 Labs: Short CBC 12/21/23 Range/Units 10:14 WBC 19.2 H (4.5-10.0) K/mm3 Hgb 15.4 (14.0-18.0) g/dL Hct 50.1 (42.0-52.0) % Plt Count 327 (150-375) k/mm3 BMP 12/21/23 10:14 Sodium 129 L Potassium 3.8 Chloride 91 L Carbon Dioxide 24 BUN 30 H D Creatinine 1.30 Glucose 313 H Calcium 10.3 H Liver Function 12/21/23 Range/Units 10:14 Total Bilirubin 0.7 (0.2-1.3) mg/dL AST 49 (17-59) U/L ALT 30 (6-50) U/L Alkaline Phosphatase 120 (38-126) U/L Albumin 3.6 (3.5-5.1) g/dL Urine 12/21/23 Range/Units 12:49 Urine Color Yellow (Yellow) Urine Appearance Turbid H (Clear) Urine pH 5.5 (5.0-9.0) Ur Specific [place] 1.036 H (1.001-1.035) Urine Protein 3+ H (Negative) mg/dL Urine Glucose (UA) 1+ H (Negative) mg/dL Imaging My impression: I reviewed his CT scan. Findings outlined in history of present illness. Moderate bilateral hydronephrosis. Likely secondary to reflux. Chronic air in the right collecting system. Right ureteral stone seen. Large right renal stone seen
--- NOTE | 2023-12-21 17:24 | ADMGEN ---
This patient, Taye Marrero Jr., was admitted to IMU Room 205-02 at 1455. Patient/family oriented to hospital policies and general routines including ID bracelet, bed and alarms, visiting hours, pain management, procedures, bathroom and other care routines, personal items, smoking policy, room service/diet, and visiting hours. Information on how to activate the Rapid Response Team has been discussed. Patient/Family are encouraged to report perceived risks to care and to ask questions if they do not understand what they are told or what they should do.
[2023-12-21] MEDS: METOPROLOL TARTRATE INJ 5 MG/5 ML VIAL IV PUSH (18:25)
[2023-12-21] MEDS: SODIUM CHLORIDE 0.9% IV 1,000 ML 100 ML IV CONT (18:25)
[2023-12-21] MEDS: MICONAZOLE NITRATE 2% CREAM 30 GM TUBE 1 APPLIC TOPICAL (18:36)
[2023-12-21] MEDS: VANCOMYCIN 1,250 MG/NS 250 ML 1,250 MG/250 ML BAG 166.67 MG IVPB ×2 (18:49→18:53)
[2023-12-21 19:54] LABS: Glucose Point of Care 303 mg/dl (65-105)
[2023-12-21] MEDS: PANTOPRAZOLE SODIUM IV 40 MG VIAL IV PUSH (20:15)
[2023-12-21] MEDS: INSULIN ASPART (*BKC) 100 UNITS/ML SUB-Q (20:24)
[2023-12-21] MEDS: MEROPENEM 1 GM/NS 100 ML 1 GM/100 ML BAG IVPB (20:28)
[2023-12-21] MEDS: PRAVASTATIN SODIUM 20 MG TABLET 40 MG PO (21:10)
[2023-12-21] MEDS: MELATONIN 5 MG TABLET PO (21:10)
[2023-12-21] MEDS: INSULIN HUMAN ISOPHAN/REGULAR 70/30 (*BKC) 100 UNITS/ML 15 UNITS SUB-Q (21:15)
[2023-12-22] VITALS (30 sets, daily range): BP systolic 67–184; BP diastolic 37–97; PULSE 69–119; RESP 12–22; TEMP 36.3–37.2; O2SAT 93–100; BMI 35.2
[2023-12-22] MEDS: MEROPENEM 1 GM/NS 100 ML 1 GM/100 ML BAG IVPB ×3 (03:33→20:32)
[2023-12-22 04:30] LABS: Hematocrit 47.6 % (42.0-52.0); Hemoglobin 14.5 g/dL (14.0-18.0); Mean Corpuscular HGB Conc 30.5 g/dl (32-36); Mean Corpuscular Hemoglobin 25.5 pg (26-34); Mean Corpuscular Volume 83.8 fl (80-100); Mean Platelet Volume 10.2 fl (7.4-10.4); Platelet Count Result 293 k/mm3 (150-375); Red Blood Count 5.68 M/mm3 (4.6-6.20); Red Cell Distribution Width 16.3 % (11.5-14.5); White Blood Count 17.4 K/mm3 (4.5-10.0)
[2023-12-22 04:45] LABS: Anion Gap 9 mmol/L (4-12); Blood Urea Nitrogen 30 mg/dL (9-20); Calcium 9.4 mg/dL (8.4-10.2); Carbon Dioxide 23 mmol/L (22-30); Chloride 99 mmol/L (98-107); Estimated CRCL calculation 88 ml/min; Estimated Glomerular Filt Rate > 60; Glucose 301 mg/dL (65-110); Sodium 131 mmol/L (137-145)
[2023-12-22] MEDS: LEVOTHYROXINE SODIUM 100 MCG TABLET PO (06:23)
[2023-12-22 07:27] LABS: Glucose Point of Care 298 mg/dl (65-105)
--- NOTE | 2023-12-22 09:39 | P.CONGI_ITS ---
I, Keven Ferreira MD, have provided a substantive portion of the care of this patient and discussed the patient with my Nurse Practitioner. I have reviewed any new relevant radiographic and laboratory results including medications. I agree with her documentation as noted below.?I personally performed the medical decision making and much of the history and exam for this encounter. briefly, here with confusion and coffee ground emesis, also found to have kidney stone and just completed urological intervention, also had leukocytosis and hyponatremia. History also obtained from who is at bedside. CT scan showed esophagitis. Plan is EGD tomorrow, continue with iv protonix and npo status. Assessment and Plan Assessment and plan (1) Esophagitis: Code(s): K20.90 - Esophagitis, unspecified without bleeding Status: Acute (2) Hematemesis: Qualifiers: Nausea presence: unspecified Qualified Code(s): K92.0 - Hematemesis Code(s): K92.0 - Hematemesis Status: Acute (3) Chronic hyponatremia: Code(s): E87.1 - Hypo-osmolality and hyponatremia Status: Acute (4) Altered mental status: Qualifiers: Altered mental status type: somnolence Qualified Code(s): R40.0 - Somnolence Code(s): R41.82 - Altered mental status, unspecified Status: Acute (5) Cholelithiasis: Qualifiers: Cholelithiasis location: gallbladder Cholecystitis presence: without cholecystitis Biliary obstruction: without biliary obstruction Qualified Code(s): K80.20 - Calculus of gallbladder without cholecystitis without obstruction Code(s): K80.20 - Calculus of gallbladder without cholecystitis without obstruction Status: Acute (6) Leukocytosis: Qualifiers: Leukocytosis type: unspecified Qualified Code(s): D72.829 - Elevated white blood cell count, unspecified Code(s): D72.829 - Elevated white blood cell count, unspecified Status: Acute Plan 1) Abnormal imaging digestive-esophagitis/hematemesis: EGD history unknown. CT 12/21/2023 showed findings compatible with extensive esophagitis. Patient unable to provide subjective information or medical history due to altered mental status. According to ER note patient was noted to have at residential prior to admission. No nausea, vomiting, or hematemesis since admission. H&H stable with HGB 15, HCT 48. INR 1.4. Patient on no anticoagulation prior to admission. Of note, sodium 131, WBC 17, BNP 4600. * Continue b.i.d. PPI * plan for EGD today * Keep patient NPO * further recommendations to follow endoscopy 2) Cholelithiasis: CT showed small layering gallstones present in the gallbladder. No signs of biliary obstruction or ductal dilation. LFTs normal. * Monitor, no further workup required at this time 3) Hyponatremia /leukocytosis: Patient with chronic hyponatremia. Labs today show sodium 131, potassium 4.0 , WBC 17. Patient with known UTI receiving antibiotics. * Primary care team to continue monitoring and correct 4) CRC screening /family history of colon cancer: Last known colonoscopy 04/18/2016. per records patient has a family history of colon cancer but no additional information available. At time of last endoscopy patient was advised to have a repeat colonoscopy in 5 years. * Patient overdue for colonoscopy, will consider outpatient colonoscopy once patient is stable enough to tolerate bowel prep Thank you very much for allowing me to share in care this patient. This report may have been done utilizing a voice recognition system. Attempts have been made to correct errors. However, there may be uncorrected grammatical, spelling, and recognition errors present. GI Consult Note Consult date/time: 12/22/23 09:39 Reason for consult: Hematemesis and esophagitis HPI: This is a 68-year-old male with history of chronic hyponatremia, indwelling Coats catheter, COPD, chronic osteomyelitis, chronic venous insufficiency, depression, diastolic CHF, GERD, HLD, HTN, hypothyroidism, diabetes, morbid obesity, JUN, AFib, peripheral neuropathy, abdominal surgery, appendectomy, and history of hemorrhoidectomy. He presented to the emergency room yesterday from nursing facility for altered mental status and possible coffee-ground emesis. GI was consulted for hematemesis and esophagitis. Patient with altered mental status unable to provide any subjective information or medical history. Medical history obtained from patient's record. Per records patient was on famotidine 20 mg, aspirin 81 mg and Eliquis daily prior to admission. ENDOSCOPY HISTORY: EGD: History unknown COLONOSCOPY: 04/18/[address] Darden for her family history of colon cancer Findings: In the mid sigmoid colon, a few small diverticula were present 5 year repeat colonoscopy recommended LABS AND STOOL STUDIES: Labs 12/22/2023 showed sodium 131, potassium 4.0, BUN 30, creatinine 1.00, GFR > 60. WBC 17, HGB 15, HCT 48, MCV 84, platelets 293, INR 1.4. Total bilirubin 0.7, AST 49, ALT 30, alkaline phosphatase 128, BNP 4600, albumin 3.6, calcium 9.4, magnesium 2.0. IMAGING: CT chest/abd/pelvis w/contrast 12/21/2023 Impression: Findings compatible with extensive esophagitis. Correlate clinically. Multiple large right renal stones as well as 8 mm right mid ureteral stone. Moderate bilateral hydroureteronephrosis. Air in the right ureter. This could be iatrogenic versus pyelitis. Correlate clinically. Possible cystitis. Correlate with urinalysis. Cholelithiasis. CT chest/abd/pelvis w/contrast 11/30/2023 IMPRESSION: 1. Cholelithiasis. Gallbladder distention may be secondary to fasting or acute cholecystitis. Correlate with physical exam. 2. Right-sided pyelitis. 3. Nonobstructing right kidney stones. Gas in the right calyces and right ureter may be secondary to reflux from the bladder or from infection. 4. Small sliding hiatal hernia. Hepatobiliary Scan Nuclear Medicine 06/24/22 12:06 IMPRESSION: 1. Low gallbladder ejection fraction, consistent with gallbladder dysfunction and/or chronic cholecystitis. Review of Systems Review of Systems: ROS unobtainable: Yes unobtainable due to medical condition [facility] Past Medical History Medical History (Updated 12/22/23 @ 10:01 by Sapna Arroyo APRN) Choledocholithiasis (05/2022) Chronic hyponatremia Chronic indwelling Coats catheter Chronic obstructive pulmonary disease Chronic osteomyelitis of left foot Chronic venous insufficiency Depression Diastolic congestive heart failure Gastroesophageal reflux disease Hyperlipidemia Hypertension Hypothyroidism Insulin dependent diabetes mellitus Kidney stones Morbid obesity Obstructive sleep apnea Non-compliant with CPAP. Paroxysmal atrial fibrillation Peripheral neuropathy Surgical History Surgical History History of abdominal surgery The patient has a large scar in the right lower abdomen just above the right groin and on palpation of his abdomen he has what feels like mesh that extends from side to side and has a course rough texture it also extends from just under the umbilicus to a couple of inches above the pubis History of appendectomy History of back surgery History of cataract extraction History of hemorrhoidectomy History of tonsillectomy and adenoidectomy Family History Family History Sibling Family history of heart disease in male family member before age 55 Family history of diabetes mellitus in first degree relative Patient's brother is Family history of obesity Hypertension Mother Family history of arthritis Patient's mother is Father Patient's father is Social History Social History Social History: Surrogate medical decision maker: Marlys Marrero, . Code status: Full code. Smoking packs per day: 1.5 Smoking cigarettes per day: 30.0 Years smoked: 15 Smoking pack-years: 22.50 Smoking status: Former smoker Tobacco type: cigarettes Second hand tobacco smoke exposure: Yes Alcohol intake: never Substance use: never Substance use type: unknown Lack of Transportation: No Lack of Food: Never True Current Housing: I Have Housing Concerned About Future Housing: No Difficulty Paying Gas/Electric Bills: No Difficulty Paying for Meds: No Currently Unemployed: No Education: High School Diploma/GED Difficulty w/ Childcare or Family Care: No Living arrangements: residential Additional living arrangements comments: Resident at [facility]. to Marlys. They have 2 sons. He is nonambulatory and depends on a [place] lift for transfer. 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 Spiritual care concerns: No Agree to blood products: Yes Meds Home Medications and Allergies Home Medications Medication Instructions Recorded Confirmed Type ipratropium 0.5 mg-albuterol 3 mg 3 ml inhalation Q4H PRN Wheezing 02/15/21 12/21/23 History (2.5 mg base)/3 mL nebulization soln levothyroxine 100 mcg tablet 100 mcg PO DAILY 02/15/21 12/21/23 History aspirin 81 mg tablet,delayed 81 mg PO QAM #30 tabs 02/19/21 12/21/23 Rx release pravastatin 40 mg tablet 40 mg PO HS 12/08/21 12/21/23 History multivitamin with minerals-folic 1 tablet PO DAILY 03/02/22 12/21/23 History acid 0.4 mg tablet apixaban 5 mg tablet (Eliquis) 5 mg PO Q12HR #60 tabs 07/01/22 12/21/23 Rx acetaminophen 325 mg capsule 650 mg PO Q4-6H PRN Pain (Scale 09/10/22 12/21/23 History (Tylenol) Score 1-3) sennosides 8.6 mg-docusate sodium 1 tablet PO BID 09/10/22 12/21/23 History 50 mg tablet (Senna Plus) melatonin 5 mg tablet 5 mg PO HS 03/10/23 12/21/23 History bupropion HCl 150 mg 24 hr tablet, 150 mg PO QAM #30 tabs 05/23/23 12/21/23 Rx extended release valsartan 40 mg tablet 20 mg PO DAILY #30 tabs 05/23/23 12/21/23 Rx lanolin alcohols-mineral 1 applic topical DAILY #113 grams 06/26/23 12/21/23 Rx oil-w.petrolatum-ceresin topical cream (Minerin Creme topical) polyethylene glycol 3350 17 gram 17 g PO BID #30 ea 06/26/23 12/21/23 Rx oral powder packet (Miralax) famotidine 20 mg tablet 20 mg PO DAILY 08/07/23 12/21/23 History hydrocodone 5 mg-acetaminophen 325 1 tablet PO Q8H PRN Pain (Scale 08/07/23 12/21/23 History mg tablet Score 4-6) insulin NPH-regular 70-30 U-100 15 unit subcut HS 08/07/23 12/21/23 History insulin 100 unit/mL subcutaneous pen (Novolin 70-30 FlexPen U-100 Insulin) insulin NPH-regular 70-30 U-100 25 unit subcut QAM 08/07/23 12/21/23 History insulin 100 unit/mL subcutaneous pen (Novolin 70-30 FlexPen U-100 Insulin) magnesium oxide 400 mg (241.3 mg 400 mg PO 1200 08/07/23 12/21/23 History magnesium) tablet metoprolol succinate 25 mg 75 mg PO QAM #90 tabs 08/18/23 12/21/23 Rx tablet,extended release 24 hr (Toprol XL) gabapentin 100 mg capsule 100 mg PO BID #20 caps 11/03/23 12/21/23 Rx lisinopril 10 mg tablet 10 mg PO DAILY #30 tabs 11/03/23 12/21/23 Rx nystatin 100,000 unit/gram topical 1 applic topical BID 11/30/23 12/21/23 History cream Allergies Allergy/AdvReac Type Severity Reaction Status Date / Time No Known Allergies Allergy Verified 11/30/23 15:10 Vital Signs Vital Signs - 24 hr 12/21/23 09:53 12/21/23 10:31 12/21/23 11:15 Temperature 97.9 F 97.3 F L Pulse Rate 85 97 96 Respiratory Rate 16 20 18 Blood Pressure 153/74 H 156/102 H 158/98 H Pulse Oximetry 99 98 94 Oxygen Delivery Room Air 12/21/23 12:23 12/21/23 12:50 12/21/23 13:01 Temperature 97.8 F 97.9 F Pulse Rate 93 92 92 Respiratory Rate 20 19 17 Blood Pressure 174/100 H 107/104 H 190/109 H Pulse Oximetry 96 98 Oxygen Delivery 12/21/23 14:29 12/21/23 14:55 12/21/23 16:00 Temperature 97.9 F 97.6 F 99.6 F Pulse Rate 78 91 112 H Respiratory Rate 16 18 20 Blood Pressure 171/104 H 149/98 H 171/91 H Pulse Oximetry 98 98 96 Oxygen Delivery 12/21/23 16:00 12/21/23 16:00 12/21/23 18:25 Temperature Pulse Rate 118 H 120 H Respiratory Rate Blood Pressure Pulse Oximetry Oxygen Delivery Room Air 12/21/23 18:00 12/21/23 19:39 12/21/23 20:00 Temperature 98.9 F Pulse Rate 107 H 97 97 Respiratory Rate 20 20 Blood Pressure 179/77 H Pulse Oximetry 95 95 Oxygen Delivery Room Air 12/21/23 22:14 12/21/23 20:00 12/21/23 23:30 Temperature 97.6 F Pulse Rate 99 110 H 100 Respiratory Rate 20 Blood Pressure 128/83 Pulse Oximetry 96 Oxygen Delivery 12/22/23 00:00 12/22/23 00:00 12/22/23 02:00 Temperature Pulse Rate 100 109 H 119 H Respiratory Rate 20 Blood Pressure Pulse Oximetry 96 Oxygen Delivery Room Air 12/22/23 03:35 12/22/23 04:00 12/22/23 04:36 Temperature 98.4 F Pulse Rate 119 H 92 93 Respiratory Rate 20 20 Blood Pressure 152/75 H Pulse Oximetry 96 93 Oxygen Delivery Room Air 12/22/23 06:14 12/22/23 07:38 12/22/23 07:38 Temperature 98.4 F Pulse Rate 96 107 H Respiratory Rate 20 Blood Pressure 147/87 H Pulse Oximetry 97 94 Oxygen Delivery Room Air Exam Const: General: comfortable and no acute distress Eyes: Sclera: sclerae normal Pupils: Equal, round and reactive pupils present Neck: Neck: supple Resp: Auscultation: clear to auscultation bilaterally Cardio: Rate: tachycardic Rhythm: regular rhythm GI: Inspection: distended GI Palp: Yes Soft to palpation, No Tenderness to palpation present (GI) and No Guarding due to palpation present (GI) Auscultation: normal bowel sounds Urinary Catheter: Urinary Catheter: patent and draining Skin: Lesions: lesion noted Wounds: wounds noted Neuro: Other: AMS, patient smiles when spoken to but did not talk during visit Extrem: General: abnormal to inspection Other: wounds Psych: Mental Status: mental status grossly abnormal Other: AMS Results Labs 12/22/23 04:17 12/22/23 04:17 Labs: Short CBC 12/21/23 12/22/23 Range/Units 10:14 04:17 WBC 19.2 H 17.4 H (4.5-10.0) K/mm3 Hgb 15.4 14.5 (14.0-18.0) g/dL Hct 50.1 47.6 (42.0-52.0) % Plt Count 327 293 (150-375) k/mm3 BMP 12/21/23 12/22/23 10:14 04:17 Sodium 129 L 131 L Potassium 3.8 4.0 Chloride 91 L 99 Carbon Dioxide 24 23 BUN 30 H D 30 H Creatinine 1.30 1.00 Glucose 313 H 301 H Calcium 10.3 H 9.4 Liver Function 12/21/23 Range/Units 10:14 Total Bilirubin 0.7 (0.2-1.3) mg/dL AST 49 (17-59) U/L ALT 30 (6-50) U/L Alkaline Phosphatase 120 (38-126) U/L Albumin 3.6 (3.5-5.1) g/dL Urine 12/21/23 Range/Units 12:49 Urine Color Yellow (Yellow) Urine Appearance Turbid H (Clear) Urine pH 5.5 (5.0-9.0) Ur Specific [place] 1.036 H (1.001-1.035) Urine Protein 3+ H (Negative) mg/dL Urine Glucose (UA) 1+ H (Negative) mg/dL
[2023-12-22] MEDS: VANCOMYCIN 1,500 MG/NS 500 ML 1,500 MG/500 ML BAG 250 MG IVPB (10:11)
[2023-12-22] MEDS: INSULIN ASPART (*BKC) 100 UNITS/ML SUB-Q (10:11)
[2023-12-22] MEDS: PANTOPRAZOLE SODIUM IV 40 MG VIAL IV PUSH ×2 (10:13→20:31)
[2023-12-22] MEDS: MICONAZOLE NITRATE 2% CREAM 30 GM TUBE 1 APPLIC TOPICAL ×2 (10:14→17:21)
[2023-12-22] MEDS: METOPROLOL SUCCINATE EXT REL 25 MG TABCR 75 MG PO (10:14)
[2023-12-22] MEDS: HYDROcodone/acetaminophen (*CRX) 5-325 MG TABLET 1 TAB PO (10:33)
[2023-12-22 11:19] LABS: Glucose Point of Care 273 mg/dl (65-105)
--- NOTE | 2023-12-22 12:03 | WPDHPUPDATE1 ---
History and Physical Update Update Date/Time: 12/22/23 12:03 History and Physical has been reviewed, including an updated exam of the patient. There are NO changes in the patient's condition. Risks, benefits, and alternatives have been discussed and questions answered. Patient agrees to proceed with procedure. Proceed with cystoscopy, possible bilateral retrogrades and bilateral stent placement
--- NOTE | 2023-12-22 12:05 | PC.NURSE ---
Pt off floor for cystoscopy via bed. informed
--- NOTE | 2023-12-22 12:06 | WPDANESEPPF ---
Anes - Initial Pre Proc Eval Procedure: Operation Date: 12/22/23 14:15 Proposed Procedures p Cystoscopy, Right Stent Placement, Possible Left Stent Placement - Blayne Young MD Operation Date: 12/23/23 15:00 Proposed Procedures p Esophagogastroduodenoscopy - Keven Ferreira MD Date/Time: 12/22/23 12:06 Surgeon: Paul Rosado MD Pre Op Diagnosis: Altered mental status, UTI Patient Data Age: 68 Gender: M Height: 1.88 m Weight: 124.6 kg Last Vital Signs Temp 36.3 C L 12/22/23 11:20 Pulse 104 H 12/22/23 11:20 Resp 22 H 12/22/23 11:20 BP 163/97 H 12/22/23 11:20 Pulse Ox 99 12/22/23 11:20 O2 Del Method Room Air 12/22/23 07:38 Allergies Allergy/AdvReac Type Severity Reaction Status Date / Time No Known Allergies Allergy Verified 11/30/23 15:10 Home Medications Medication Instructions Recorded Confirmed Type ipratropium 0.5 mg-albuterol 3 mg 3 ml inhalation Q4H PRN Wheezing 02/15/21 12/21/23 History (2.5 mg base)/3 mL nebulization soln levothyroxine 100 mcg tablet 100 mcg PO DAILY 02/15/21 12/21/23 History aspirin 81 mg tablet,delayed 81 mg PO QAM #30 tabs 02/19/21 12/21/23 Rx release pravastatin 40 mg tablet 40 mg PO HS 12/08/21 12/21/23 History multivitamin with minerals-folic 1 tablet PO DAILY 03/02/22 12/21/23 History acid 0.4 mg tablet apixaban 5 mg tablet (Eliquis) 5 mg PO Q12HR #60 tabs 07/01/22 12/21/23 Rx acetaminophen 325 mg capsule 650 mg PO Q4-6H PRN Pain (Scale 09/10/22 12/21/23 History (Tylenol) Score 1-3) sennosides 8.6 mg-docusate sodium 1 tablet PO BID 09/10/22 12/21/23 History 50 mg tablet (Senna Plus) melatonin 5 mg tablet 5 mg PO HS 03/10/23 12/21/23 History bupropion HCl 150 mg 24 hr tablet, 150 mg PO QAM #30 tabs 05/23/23 12/21/23 Rx extended release valsartan 40 mg tablet 20 mg PO DAILY #30 tabs 05/23/23 12/21/23 Rx lanolin alcohols-mineral 1 applic topical DAILY #113 grams 06/26/23 12/21/23 Rx oil-w.petrolatum-ceresin topical cream (Minerin Creme topical) polyethylene glycol 3350 17 gram 17 g PO BID #30 ea 06/26/23 12/21/23 Rx oral powder packet (Miralax) famotidine 20 mg tablet 20 mg PO DAILY 08/07/23 12/21/23 History hydrocodone 5 mg-acetaminophen 325 1 tablet PO Q8H PRN Pain (Scale 08/07/23 12/21/23 History mg tablet Score 4-6) insulin NPH-regular 70-30 U-100 15 unit subcut HS 08/07/23 12/21/23 History insulin 100 unit/mL subcutaneous pen (Novolin 70-30 FlexPen U-100 Insulin) insulin NPH-regular 70-30 U-100 25 unit subcut QAM 08/07/23 12/21/23 History insulin 100 unit/mL subcutaneous pen (Novolin 70-30 FlexPen U-100 Insulin) magnesium oxide 400 mg (241.3 mg 400 mg PO 1200 08/07/23 12/21/23 History magnesium) tablet metoprolol succinate 25 mg 75 mg PO QAM #90 tabs 08/18/23 12/21/23 Rx tablet,extended release 24 hr (Toprol XL) gabapentin 100 mg capsule 100 mg PO BID #20 caps 11/03/23 12/21/23 Rx lisinopril 10 mg tablet 10 mg PO DAILY #30 tabs 11/03/23 12/21/23 Rx nystatin 100,000 unit/gram topical 1 applic topical BID 11/30/23 12/21/23 History cream Laboratory Tests 12/21/23 12/21/23 12/21/23 12:49 14:06 19:48 WBC RBC Hgb Hct MCV MCH MCHC RDW Plt Count MPV Sodium Potassium Chloride Carbon Dioxide Anion Gap BUN Creatinine Estim Creat Clear Calc Estimated GFR Glucose POC Capillary Glucose 303 H mg/dl (65-105) Lactic Acid 1.9 mmol/L (0.7-2.0) Calcium Magnesium Urine Color Yellow (Yellow) Urine Appearance Turbid H (Clear) Urine pH 5.5 (5.0-9.0) Ur Specific [place] 1.036 H (1.001-1.035) Urine Protein 3+ H mg/dL (Negative) Urine Glucose (UA) 1+ H mg/dL (Negative) Urine Ketones 1+ H mg/dL (Negative) Ur Blood (Man) 3+ H (Negative) Urine Nitrate Negative (Negative) Urine Bilirubin Negative (Negative) Urine Urobilinogen 1.0 mg/dL (<2.0) Add Ur Microanalysis Reviewed Leukocyte Esterase Rfl 3+ H RAZ/UL (Negative) Urine RBC >100 H /hpf (0-2) Urine WBC >100 H /hpf (0-3) Ur Squamous Epith Cells Many H /hpf (Few) Urine Bacteria 4+ H /hpf Urine Casts >20 Urine Yeast (Budding) Present H /hpf (None) 12/22/23 12/22/23 12/22/23 04:17 07:23 11:05 WBC 17.4 H K/mm3 (4.5-10.0) RBC 5.68 M/mm3 (4.6-6.20) Hgb 14.5 g/dL (14.0-18.0) Hct 47.6 % (42.0-52.0) MCV 83.8 fl (80-100) MCH 25.5 L pg (26-34) MCHC 30.5 L g/dl (32-36) RDW 16.3 H % (11.5-14.5) Plt Count 293 k/mm3 (150-375) MPV 10.2 fl (7.4-10.4) Sodium 131 L mmol/L (137-145) Potassium 4.0 mmol/L (3.4-5.0) Chloride 99 mmol/L (98-107) Carbon Dioxide 23 mmol/L (22-30) Anion Gap 9 mmol/L (4-12) BUN 30 H mg/dL (9-20) Creatinine 1.00 mg/dL (0.7-1.3) Estim Creat Clear Calc 88 ml/min Estimated GFR > 60 (59 - ) Glucose 301 H mg/dL (65-110) POC Capillary Glucose 298 H mg/dl 273 H mg/dl (65-105) (65-105) Lactic Acid Calcium 9.4 mg/dL (8.4-10.2) Magnesium 2.0 mg/dL (1.6-2.3) Urine Color Urine Appearance Urine pH Ur Specific [place] Urine Protein Urine Glucose (UA) Urine Ketones Ur Blood (Man) Urine Nitrate Urine Bilirubin Urine Urobilinogen Add Ur Microanalysis Leukocyte Esterase Rfl Urine RBC Urine WBC Ur Squamous Epith Cells Urine Bacteria Urine Casts Urine Yeast (Budding) Patient hx anesthesia problems: none Family hx anesthesia problems: none Results Review: All pre-operative results and documents have been reviewed as part of the pre-operative evaluation. [facility] Past Medical History Medical History Choledocholithiasis (05/2022) Chronic hyponatremia Chronic indwelling Coats catheter Chronic obstructive pulmonary disease Chronic osteomyelitis of left foot Chronic venous insufficiency Depression Diastolic congestive heart failure Gastroesophageal reflux disease Hyperlipidemia Hypertension Hypothyroidism Insulin dependent diabetes mellitus Kidney stones Morbid obesity Obstructive sleep apnea Non-compliant with CPAP. Paroxysmal atrial fibrillation Peripheral neuropathy Surgical History Surgical History History of abdominal surgery The patient has a large scar in the right lower abdomen just above the right groin and on palpation of his abdomen he has what feels like mesh that extends from side to side and has a course rough texture it also extends from just under the umbilicus to a couple of inches above the pubis History of appendectomy History of back surgery History of cataract extraction History of hemorrhoidectomy History of tonsillectomy and adenoidectomy Family History Family History Sibling Family history of heart disease in male family member before age 55 Family history of diabetes mellitus in first degree relative Patient's brother is Family history of obesity Hypertension Mother Family history of arthritis Patient's mother is Father Patient's father is Social History Social History Social History: Surrogate medical decision maker: Marlys Marrero, . Code status: Full code. Smoking packs per day: 1.5 Smoking cigarettes per day: 30.0 Years smoked: 15 Smoking pack-years: 22.50 Smoking status: Former smoker Tobacco type: cigarettes Second hand tobacco smoke exposure: Yes Alcohol intake: never Substance use: never Substance use type: unknown Lack of Transportation: No Lack of Food: Never True Current Housing: I Have Housing Concerned About Future Housing: No Difficulty Paying Gas/Electric Bills: No Difficulty Paying for Meds: No Currently Unemployed: No Education: High School Diploma/GED Difficulty w/ Childcare or Family Care: No Living arrangements: halfway Additional living arrangements comments: Resident at [facility]. to Marlys. They have 2 sons. He is nonambulatory and depends on a [place] lift for transfer. 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 Spiritual care concerns: No Agree to blood products: Yes Anes - Evzach Final PreProcedure Day of Procedure 12/22/23 12:06 Patient weight: obese Heart: irregular rhythm Lungs: clear to auscultation Airway: Mallampati scale class III Neurological: unresponsive Last oral intake: >/= 8 hours ASA classification: IV Emergent: no Anesthetic plan: proceed Anesthesia type and monitoring: general LMA and standard monitoring Results Review: All pre-operative results and documents have been reviewed as part of the pre-operative evaluation. Informed Consent: The patient's anesthetic plan and its attendant risks and benefits were discussed with the patient/family/POA. Questions were solicited and answers provided to the satisfaction of the patient/family/POA.
[2023-12-22] MEDS: LIDOCAINE HCL 2% GEL UROJET 10 ML PKG MUCOUS MEM (13:01)
[2023-12-22] MEDS: LACTATED RINGERS 1,000 ML 30 ML IV CONT (13:11)
--- NOTE | 2023-12-22 13:11 | P.OP_ITS ---
Procedure Note - Detailed Date of Procedure 12/22/23 Pre-op Diagnosis Altered mental status, UTI Bilateral hydronephrosis with right ureteral calculus Post-op Diagnosis Same Procedure Performed Cystoscopy, bilateral retrogrades, bilateral ureteral stent placement 6 [place] contour stents and Coats catheter placement Surgeon Blayne Young MD Anesthesia General Description of Procedure Patient is taken the operative suite correctly identified. Once anesthesia was obtained was placed in dorsal lithotomy position and prepped draped usual sterile fashion. Twenty-two [place] scope was inserted in the bladder. There were no tumors noted. Both ureteral orifices appeared patulous in nature. A [place] was inserted into the right UO and a pyelogram was performed. Contrast made its way up the kidney a low was difficult to delineate the ureter. A Sensor wire was passed up into the kidney and a 6 [place] contour stent was then placed with the proximal end coiled in the renal pelvis and the distal in the bladder. Similar procedure was performed on the left side. It did not appear overtly hydronephrotic and simply may be due dilated due to reflux. Given his condition I did go ahead and place a wire and a 6 [place] contour stent to give maximal drainage. 2% viscous lidocaine was inserted into the urethra a 16 [place] Coats catheter was placed with 10 cc in the balloon. The in recovery stable condition. Patient will require a repeat CT scan to delineate the location of the right ureteral stone. If he is a candidate for anesthesia here again at [place] then he would need a ureteroscopy with laser stone extraction on the right side. The left stent would be removed at that time. If he is deemed not a candidate for this facility and requires tertiary care center family will need to be seen over a their at [facility] or [facility]. This completes dictation. Please send a copy of op note to my office Estimated Blood Loss 0 Drains Yes Packing No Pathology None sent Complications No immediate complications Condition Stable Disposition PACU
--- NOTE | 2023-12-22 13:16 | PM.IMPN ---
Progress Note: A&P Assessment and Plan (1) Hematemesis: Qualifiers: Nausea presence: unspecified Qualified Code(s): K92.0 - Hematemesis Code(s): K92.0 - Hematemesis Status: Acute (2) Esophagitis: Code(s): K20.90 - Esophagitis, unspecified without bleeding Status: Acute (3) Right ureteral stone: Code(s): N20.1 - Calculus of ureter Status: Acute (4) Hydroureteronephrosis: Code(s): N13.30 - Unspecified hydronephrosis Status: Acute (5) Bacteriuria with pyuria: Code(s): R82.71 - Bacteriuria; R82.81 - Pyuria Status: Acute (6) Non healing left heel wound: Code(s): S91.302A - Unspecified open wound, left foot, initial encounter Status: Acute (7) Chronic hyponatremia: Code(s): E87.1 - Hypo-osmolality and hyponatremia Status: Acute (8) Insulin dependent diabetes mellitus: Status: Chronic (9) Chronic anticoagulation: Code(s): Z79.01 - senior care (current) use of anticoagulants Status: Chronic (10) Hypertension: Code(s): I10 - Essential (primary) hypertension Status: Chronic (11) Hypothyroidism: Code(s): E03.9 - Hypothyroidism, unspecified Status: Chronic Plan This is a 67-year-old male with dementia, paroxysmal atrial fibrillation, diastolic congestive heart failure, insulin-dependent diabetes, hypothyroidism, hypertension, untreated obstructive sleep apnea, chronic venous stasis dermatitis, indwelling Coats catheter, kidney stones, chronic left heel wound with history of osteomyelitis of the left calcaneus with previous cultures growing out Pseudomonas and MRSA, and other comorbidities who presented to the emergency department via EMS from [facility] with reports of coffee ground emesis. He is alert and oriented x1 at baseline and is unable to provide any meaningful history and as such a majority the following is obtained from his EMR. He is known to the hospitalist service and was just admitted to hospital several weeks ago with altered mental status and emphysematous pyelitis. Urine culture grew out ESBL E coli and he was discharged with a prescription for nitrofurantoin. Stool was Hemoccult negative on rectal exam per ED physician. In the ED: He was afebrile on arrival. Blood pressures have been running in the 140s to 170s systolic. Labs were significant for WBC count of 19.2, sodium 129, chloride 91, anion gap 14, BUN 30, creatinine 1.30, lactic acid 1.9, glucose 313, calcium 10.3, proBNP 4600. Urine was concentrated with 3+ protein, +glucose, 1+ ketones, 3+ blood, 3+ leukocyte esterase greater than 100 RBC and WBC, many squamous cells, 4+ bacteria, budding yeast, and greater than [address] showed no acute findings. CT of the abdomen and pelvis showed findings compatible with extensive esophagitis, multiple large right renal stones as well as an 8 mm right mid ureteral stone with moderate bilateral hydroureteronephrosis, air in the right ureter, and cholelithiasis. He was given ceftriaxone 1 g, pantoprazole 80 mg, and ondansetron 4 mg. He was also given Narcan 0.4 mg as his pupils were pinpoint, with no response. He is being admitted in this setting for further treatment and evaluation. Coffee-ground emesis CT with extensive esophagitis. Ppi b.i.d.. GI consulted for EGD. H&H remained stable Moderate bilateral hydroureteronephrosis: CT also showed multiple large right renal stones an 8 mm right mid ureteral stone with moderate bilateral hydroureteronephrosis. Dr. Ruiz, Urology, was consulted and plans on cystoscopy and ureteral stent today UTI in the setting of chronic indwelling Coats catheter. It is difficult to say whether or not this represents a true infection as he cannot provide history however he is afebrile although his WBC count is 19,000. He did became bacteremic with Gram-negative bacilli suggesting UTI has potential source. Follow cultures. He received ceftriaxone 1 g in the ED which was changed to meropenem given history of ESBL E coli in the urine. Urine culture is pending. Chronic left heel wound which has grown out MRSA and Pseudomonas though it does not look acutely infected superficially we will add vancomycin for now. Wound nurse has been consulted. History of osteomyelitis and foot Bacteremia with Gram-negative bacilli potential source UTI Chronic hyponatremia at baseline Type 2 diabetes mellitus SSI hypoglycemia protocol Accu-Cheks Atrial fibrillation apixaban on hold for procedure and hematemesis. Chronic indwelling catheter Cholelithiasis asymptomatic Hypothyroidism Hypertension DVT prophylaxis SCD Code status full code custodial resident Subjective Date/time seen: 12/22/23 13:16 Interval history: Patient remains confused. Awake and alert poor historian oriented times 1-2 at baseline Review of Systems Review of Systems: ROS unobtainable: Yes unobtainable due to medical condition Exam Narrative: General:?Chronically ill-appearing gentleman in the semi-Berry position in bed. Not in acute distress HEENT:??Normocephalic, atraumatic.? PERRL, EOMI. Right eye dysconjugate gaze. Sclera anicteric. Neck:??Supple. Exam limited due to neck circumference. No obvious JVD or lymphadenopathy. Respiratory:?Respirations are nonlabored and he seems in no distress. Lung sounds are diminished due to body habitus and poor effort but are otherwise clear to auscultation. Cardiovascular:?Irregularly irregular rate and rhythm. Gastrointestinal:??Abdomen is soft and morbidly obese. Skin:?Warm and dry. Chronic hyperpigmentation and changes of stasis dermatitis of the lower legs with scabs, superficial skin tear, and scaly skin. Right heel is boggy with a stage I pressure ulcer. There is a chronic wound on the left heel which is dry in the center but has nonviable appearing tissue on the perimeter with some mucoid drainage.. Toenails are thick and yellow. Genitourinary: Coats catheter in place draining cloudy urine with cloudy sediment. Extremities:??No cyanosis or clubbing. Chronic pitting and nonpitting edema of the lower legs. Radial pulses palpable. Pedal pulses diminished. Neurological: He is alert and follows some commands though he only answers a few questions. Moving all extremities Psychiatric:?Chronically confused. Cooperative. Objective Data Vital Signs Vital Signs: Vital Signs - 24 hr 12/21/23 14:29 12/21/23 14:55 12/21/23 16:00 Temperature 97.9 F 97.6 F 99.6 F Pulse Rate 78 91 112 H Respiratory Rate 16 18 20 Blood Pressure 171/104 H 149/98 H 171/91 H Pulse Oximetry 98 98 96 Oxygen Delivery 12/21/23 16:00 12/21/23 16:00 12/21/23 18:25 Temperature Pulse Rate 118 H 120 H Respiratory Rate Blood Pressure Pulse Oximetry Oxygen Delivery Room Air 12/21/23 18:00 12/21/23 19:39 10/21/24 20:00 Temperature 98.9 F Pulse Rate 107 H 97 97 Respiratory Rate 20 20 Blood Pressure 179/77 H Pulse Oximetry 95 95 Oxygen Delivery Room Air 12/21/23 22:14 12/21/23 20:00 12/21/23 23:30 Temperature 97.6 F Pulse Rate 99 110 H 100 Respiratory Rate 20 Blood Pressure 128/83 Pulse Oximetry 96 Oxygen Delivery 12/22/23 00:00 12/22/23 00:00 12/22/23 02:00 Temperature Pulse Rate 100 109 H 119 H Respiratory Rate 20 Blood Pressure Pulse Oximetry 96 Oxygen Delivery Room Air 12/22/23 03:35 12/22/23 04:00 12/22/23 04:36 Temperature 98.4 F Pulse Rate 119 H 92 93 Respiratory Rate 20 20 Blood Pressure 152/75 H Pulse Oximetry 96 93 Oxygen Delivery Room Air 12/22/23 06:14 12/22/23 07:38 12/22/23 07:38 Temperature 98.4 F Pulse Rate 96 107 H Respiratory Rate 20 Blood Pressure 147/87 H Pulse Oximetry 97 94 Oxygen Delivery Room Air 12/22/23 10:12 12/22/23 11:20 12/22/23 08:00 Temperature 97.4 F L Pulse Rate 109 H 104 H 108 H Respiratory Rate 22 H Blood Pressure 163/97 H Pulse Oximetry 99 Oxygen Delivery 12/22/23 08:00 12/22/23 10:00 12/22/23 11:30 Temperature 97.6 F Pulse Rate 108 H 94 Respiratory Rate 16 Blood Pressure 156/88 H Pulse Oximetry 94 Oxygen Delivery Room Air Intake/Output Intake/Output: Intake & Output 12/19/23 12/20/23 12/21/23 12/22/23 23:59 23:59 23:59 23:59 Intake Total 160 200 Output Total 1300 200 Balance -1140 0 Meds/Results Medications: Active Medications Generic Name Dose Route Start Last Admin Trade Name Freq PRN Reason Stop Dose Admin Acetaminophen 650 mg 12/21/23 17:59 Acetaminophen 325 Mg Tablet PO Q4-6H PRN Pain (Scale Score 1-3) Hydrocodone Bitart/Acetaminophen 1 tab 12/21/23 17:59 12/22/23 10:33 Hydrocodone/Acetaminophen (*Crx) 5-325 Mg Tablet PO 1 tab Q8H PRN Administration Pain (Scale Score 4-6) Albuterol/Ipratropium 3 ml 12/21/23 17:59 Ipratropium 0.5 Mg/Albuterol Sulfate 2.5 Mg Ampul.Neb 3 Ml INHALATION Q4H PRN Wheezing Bupropion HCl 150 mg 12/22/23 09:00 12/22/23 08:49 Bupropion Hcl Xl (24 Hr) 150 Mg Tabcr PO Not Given QAM HERMILO Dextrose 12.5 gm 12/21/23 18:00 Dextrose 50% 25 Gm/50 Ml Syringe IV PUSH PRN PRN Hypoglycemia Protocol Famotidine 20 mg 12/22/23 09:00 12/22/23 08:49 Famotidine 20 Mg Tablet PO Not Given DAILY HERMILO Fentanyl Citrate 25 mcg 12/22/23 12:03 Fentanyl Citrate Inj (*Crx) 100 Mcg/2 Ml Vial IV PUSH Q2M PRN Pain Gabapentin 100 mg 12/21/23 18:10 12/22/23 08:49 Gabapentin 100 Mg Capsule PO Not Given BID HERMILO Glucagon 1 mg 12/21/23 18:00 Glucagon For Inj 1 Mg Vial IM PRN PRN Hypoglycemia Protocol Glucose 15 gm 12/21/23 18:00 Glucose Oral Gel 15 Gm Of Glucse In 37.5 Gm Tube PO PRN PRN Hypoglycemia Protocol Meropenem 1 gm in 100 mls @ 200 mls/hr 12/21/23 20:00 12/22/23 12:49 IVPB Infused Q8H HERMILO Infusion Dextrose 1,000 mls @ 100 mls/hr 12/21/23 18:00 Dextrose 5% 1,000 Ml IVPB PRN PRN Hypoglycemia Protocol Vancomycin HCl 1,500 mg in 500 mls @ 250 mls/hr 12/22/23 08:00 12/22/23 10:11 Vancomycin 1,500 Mg/Ns 500 Ml IVPB 250 mls/hr Q12H HERMILO Administration Lactated Ringer's 1,000 mls @ 150 mls/hr 12/22/23 12:00 Lr - Lactated Ringers Iv IV CONT .Q6H40M HERMILO Lactated Ringer's 1,000 mls @ 30 mls/hr 12/22/23 12:05 Lr - Lactated Ringers Iv IV CONT .Q24H HERMILO Insulin Aspart 4 - 8 units 12/22/23 08:00 12/22/23 11:29 Insulin Aspart (*Bkc) 100 Units/Ml SUB-Q Not Given TIDWM [facility] Protocol Insulin Aspart 2 - 4 units 12/21/23 21:00 12/21/23 20:24 Insulin Aspart (*Bkc) 100 Units/Ml SUB-Q 3 units HS [facility] Administration Protocol Insulin Human Isoph/Insulin Regular 25 units 12/22/23 09:00 12/22/23 08:49 Insulin Human Isophan/Regular 70/30 (*Bkc) 100 Units/Ml SUB-Q Not Given QAM [facility] Insulin Human Isoph/Insulin Regular 15 units 12/21/23 21:00 12/21/23 21:15 Insulin Human Isophan/Regular 70/30 (*Bkc) 100 Units/Ml SUB-Q 15 units HS [facility] Administration Levothyroxine Sodium 100 mcg 12/22/23 06:30 12/22/23 06:23 Levothyroxine Sodium 100 Mcg Tablet PO 100 mcg DAILY@0630 [facility] Administration Lisinopril 10 mg 12/22/23 09:00 12/22/23 08:50 Lisinopril 10 Mg Tablet PO Not Given DAILY HERMILO Magnesium Oxide 400 mg 12/22/23 12:00 12/22/23 11:30 Magnesium Oxide 400 Mg Tablet PO Not Given 1200 [facility] Melatonin 5 mg 12/21/23 21:00 12/21/23 21:10 Melatonin 5 Mg Tablet PO 5 mg HS [facility] Administration Metoprolol Succinate 75 mg 12/22/23 09:00 12/22/23 10:12 Metoprolol Succinate Ext Rel 25 Mg Tabcr PO 75 mg QAM [facility] Administration Miconazole Nitrate 1 applic 12/21/23 18:15 12/22/23 10:14 Miconazole Nitrate 2% Cream 30 Gm Tube TOPICAL 1 applic BID [facility] Administration Multivitamins/Calcium 1 tablet 12/22/23 09:00 12/22/23 08:51 Therapeutic Multivitamins/Minerals Tab (*Bkc) PO Not Given DAILY [facility] Ondansetron HCl 4 mg 12/21/23 13:44 Ondansetron Inj 4 Mg/2 Ml Vial IV PUSH Q4H PRN Nausea Ondansetron HCl 4 mg 12/22/23 12:03 Ondansetron Inj 4 Mg/2 Ml Vial IV PUSH ONCE PRN Nausea Pantoprazole Sodium 40 mg 12/21/23 21:00 12/22/23 10:13 Pantoprazole Sodium Iv 40 Mg Vial IV PUSH 40 mg Q12HR HERMILO Administration Polyethylene Glycol 17 gm 12/21/23 18:15 12/22/23 08:51 Polyethylene Glycol 3350 17 Gm Powd.Pack PO Not Given BID HERMILO Pravastatin Sodium 40 mg 12/21/23 21:00 12/21/23 21:10 Pravastatin Sodium 20 Mg Tablet PO 40 mg HS HERMILO Administration Senna/Docusate Sodium 1 tab 12/21/23 18:15 12/22/23 08:49 Senna/Docusate Sodium Tablet PO Not Given BID HERMILO Valsartan 20 mg 12/22/23 09:00 12/22/23 08:51 Valsartan 20 Mg Tablet PO Not Given DAILY [facility] Radiology Results: ITS Impressions Head CT 12/21/23 12:00 IMPRESSION: No acute intracranial findings. Chest/Abdomen/Pelvis CT 12/21/23 12:17 Impression: Findings compatible with extensive esophagitis. Correlate clinically. Multiple large right renal stones as well as 8 mm right mid ureteral stone. Moderate bilateral hydroureteronephrosis. Air in the right ureter. This could be iatrogenic versus pyelitis. Correlate clinically. Possible cystitis. Correlate with urinalysis. Cholelithiasis. Labs Labs: Laboratory Results - last 24 hr 12/21/23 12/21/23 12/22/23 14:06 19:48 04:17 WBC 17.4 H RBC 5.68 Hgb 14.5 Hct 47.6 MCV 83.8 MCH 25.5 L MCHC 30.5 L RDW 16.3 H Plt Count 293 MPV 10.2 Sodium 131 L Potassium 4.0 Chloride 99 Carbon Dioxide 23 Anion Gap 9 BUN 30 H Creatinine 1.00 Estim Creat Clear Calc 88 Estimated GFR > 60 Glucose 301 H POC Capillary Glucose 303 H Lactic Acid 1.9 Calcium 9.4 Magnesium 2.0 12/22/23 12/22/23 07:23 11:05 WBC RBC Hgb Hct MCV MCH MCHC RDW Plt Count MPV Sodium Potassium Chloride Carbon Dioxide Anion Gap BUN Creatinine Estim Creat Clear Calc Estimated GFR Glucose POC Capillary Glucose 298 H 273 H Lactic Acid Calcium Magnesium
[2023-12-22] MEDS: PHENYLEPHRINE 1,000 MCG/10 ML SYRINGE 100 MCG IV PUSH (13:20)
[2023-12-22 13:57] LABS: Glucose Point of Care 223 mg/dl (65-105)
[2023-12-22 16:10] LABS: Glucose Point of Care 213 mg/dl (65-105)
[2023-12-22 19:51] LABS: Glucose Point of Care 208 mg/dl (65-105)
[2023-12-23] VITALS (16 sets, daily range): BP systolic 115–188; BP diastolic 59–106; PULSE 77–91; RESP 20; TEMP 36.1–36.9; O2SAT 95–100
[2023-12-23] MEDS: MEROPENEM 1 GM/NS 100 ML 1 GM/100 ML BAG IVPB ×3 (04:11→20:42)
[2023-12-23 05:06] LABS: Basophils Percent Auto 0.2 % (0.2-1.2); Eosinophils Absolute Auto 0.1 K/mm3 (0-0.3); Eosinophils Percent Auto 0.8 % (0-4.4); Hematocrit 43.3 % (42.0-52.0); Hemoglobin 12.9 g/dL (14.0-18.0); Immature Granulocyte Absolute 0.03 K/mm3 (0.00-0.031); Immature Granulocyte Percent A 0.3 % (0-0.5); Lymphocytes Percent Auto 5.9 % (18.3-44.2); Mean Corpuscular HGB Conc 29.8 g/dl (32-36); Mean Corpuscular Hemoglobin 25.1 pg (26-34); Mean Corpuscular Volume 84.2 fl (80-100); Monocytes Absolute Auto 0.7 K/mm3 (0.1-0.6); Neutrophils Absolute Auto 8.7 K/mm3 (1.3-6.7); Neutrophils Percent Auto 85.8 % (45.5-73.1); Platelet Count Result 278 k/mm3 (150-375); Red Blood Count 5.14 M/mm3 (4.6-6.20); Red Cell Distribution Width 16.2 % (11.5-14.5); White Blood Count 10.1 K/mm3 (4.5-10.0)
[2023-12-23 05:25] LABS: Alanine Aminotransferase 15 U/L (6-50); Albumin Level 2.6 g/dL (3.5-5.1); Alkaline Phosphatase 89 U/L (38-126); Anion Gap 3 mmol/L (4-12); Aspartate Amino Transferase 15 U/L (17-59); Bilirubin,Total 0.4 mg/dL (0.2-1.3); Blood Urea Nitrogen 33 mg/dL (9-20); Calcium 9.3 mg/dL (8.4-10.2); Carbon Dioxide 29 mmol/L (22-30); Chloride 102 mmol/L (98-107); Estimated CRCL calculation 73 ml/min; Estimated Glomerular Filt Rate 60; Glucose 189 mg/dL (65-110); Magnesium 1.9 mg/dL (1.6-2.3); Potassium 3.6 mmol/L (3.4-5.0); Sodium 134 mmol/L (137-145)
[2023-12-23 05:37] LABS: Platelet Estimate Adequate (Adequate)
[2023-12-23 05:38] LABS: Burr Cells 1+; Ovalocytes 1+; Schistocytes None Seen
[2023-12-23 07:37] LABS: Glucose Point of Care 166 mg/dl (65-105)
--- NOTE | 2023-12-23 08:15 | WPDUROPN2 ---
Progress Note: A&P Assessment and Plan (1) Right ureteral stone: Code(s): N20.1 - Calculus of ureter Status: Acute Assessment and Plan: Status post stenting. Will repeat a CT scan to see to the stone has remained in the ureter or was pushed back into the kidney. Definitive treatment if it is in the ureter will require ureteroscopy. Anesthesia had some reservations regarding his care here at [facility] given all his comorbid factors. If they do not feel comfortable having the procedure at [facility] he will need to have that at a tertiary center. (2) Hydroureteronephrosis: Code(s): N13.30 - Unspecified hydronephrosis Status: Acute Assessment and Plan: Hydronephrosis is most likely chronic in nature. Once his ureteral stone is addressed on the right then will plan on removing both ureteral stents (3) Leukocytosis: Qualifiers: Leukocytosis type: unspecified Qualified Code(s): D72.829 - Elevated white blood cell count, unspecified Code(s): D72.829 - Elevated white blood cell count, unspecified Status: Acute Assessment and Plan: Improving with placement of stents Subjective Subjective Date/Time Seen: 12/23/23 08:15 Principal diagnosis: Bilateral hydro with right renal and ureteral calculus post bilateral stent Interval history: Resting comfortably at this time. White count has improved to 10,000 thousand Review of Systems Review of Systems: All systems reviewed & are unremarkable except as noted in HPI and below Exam Const: General: comfortable Resp: Effort & Inspection: normal respiratory effort Cardio: Rate: regular rate Rhythm: regular rhythm Objective Data Vital Signs Vital Signs: Vital Signs - 24 hr 12/22/23 10:12 12/22/23 11:20 12/22/23 10:00 Temperature 36.3 C L Pulse Rate 109 H 104 H 108 H Respiratory Rate 22 H Blood Pressure 163/97 H Pulse Oximetry 99 Oxygen Delivery Oxygen Flow Rate 12/22/23 11:30 12/22/23 13:11 12/22/23 13:25 Temperature 36.4 C 37.2 C Pulse Rate 94 80 74 Respiratory Rate 16 12 15 Blood Pressure 156/88 H 67/37 L 90/48 L Pulse Oximetry 94 100 100 Oxygen Delivery Simple Face Mask Simple Face Mask Oxygen Flow Rate 8 8 12/22/23 13:40 12/22/23 13:55 12/22/23 14:10 Temperature Pulse Rate 77 78 81 Respiratory Rate 15 14 14 Blood Pressure 92/54 L 138/74 145/83 H Pulse Oximetry 100 100 100 Oxygen Delivery Simple Face Mask Simple Face Mask Nasal Cannula Oxygen Flow Rate 8 8 2 12/22/23 14:30 12/22/23 13:15 12/22/23 13:20 Temperature 37.1 C Pulse Rate 73 74 72 Respiratory Rate 14 Blood Pressure 137/84 81/50 L 96/54 L Pulse Oximetry 100 Oxygen Delivery Nasal Cannula Oxygen Flow Rate 2 12/22/23 13:30 12/22/23 13:35 12/22/23 14:48 Temperature 36.6 C Pulse Rate 71 69 70 Respiratory Rate 20 Blood Pressure 90/49 L 92/54 L 184/97 H Pulse Oximetry 100 Oxygen Delivery Oxygen Flow Rate 12/22/23 15:51 12/22/23 16:00 12/22/23 16:00 Temperature 36.4 C L Pulse Rate 84 88 70 Respiratory Rate 16 Blood Pressure 159/91 H 184/90 H Pulse Oximetry 100 Oxygen Delivery Oxygen Flow Rate 12/22/23 16:00 12/22/23 18:00 12/22/23 19:40 Temperature 36.7 C Pulse Rate 86 90 Respiratory Rate 20 Blood Pressure 129/71 Pulse Oximetry 99 100 Oxygen Delivery Nasal Cannula Oxygen Flow Rate 2 12/22/23 20:00 12/22/23 20:00 12/22/23 21:51 Temperature Pulse Rate 90 90 90 Respiratory Rate 20 Blood Pressure Pulse Oximetry 100 Oxygen Delivery Nasal Cannula Oxygen Flow Rate 2 12/22/23 23:50 12/23/23 00:00 12/23/23 00:00 Temperature 36.4 C L Pulse Rate 80 86 86 Respiratory Rate 20 20 Blood Pressure 90/54 L Pulse Oximetry 96 96 Oxygen Delivery Room Air Oxygen Flow Rate 12/23/23 02:00 12/23/23 04:15 12/23/23 04:00 Temperature 36.8 C Pulse Rate 90 89 80 Respiratory Rate 20 Blood Pressure 115/59 L Pulse Oximetry 96 Oxygen Delivery Oxygen Flow Rate 12/23/23 04:00 12/23/23 05:35 12/23/23 07:52 Temperature 36.4 C Pulse Rate 89 86 84 Respiratory Rate 20 20 Blood Pressure 120/65 Pulse Oximetry 96 95 Oxygen Delivery Room Air Oxygen Flow Rate Intake/Output Intake/Output: Intake & Output 12/20/23 12/21/23 12/22/23 12/23/23 23:59 23:59 23:59 23:59 Intake Total 160 1500 100 Output Total 1300 925 350 Balance -1140 575 -250 Meds/Results Medications: Active Medications Generic Name Dose Route Start Last Admin Trade Name Freq PRN Reason Stop Dose Admin Acetaminophen 650 mg 12/21/23 17:59 Acetaminophen 325 Mg Tablet PO Q4-6H PRN Pain (Scale Score 1-3) Hydrocodone Bitart/Acetaminophen 1 tab 12/21/23 17:59 12/22/23 10:33 Hydrocodone/Acetaminophen (*Crx) 5-325 Mg Tablet PO 1 tab Q8H PRN Administration Pain (Scale Score 4-6) Albuterol/Ipratropium 3 ml 12/21/23 17:59 Ipratropium 0.5 Mg/Albuterol Sulfate 2.5 Mg Ampul.Neb 3 Ml INHALATION Q4H PRN Wheezing Bupropion HCl 150 mg 12/22/23 09:00 12/22/23 08:49 Bupropion Hcl Xl (24 Hr) 150 Mg Tabcr PO Not Given QAM [facility] Dextrose 12.5 gm 12/21/23 18:00 Dextrose 50% 25 Gm/50 Ml Syringe IV PUSH PRN PRN Hypoglycemia Protocol Famotidine 20 mg 12/22/23 09:00 12/22/23 08:49 Famotidine 20 Mg Tablet PO Not Given DAILY [facility] Gabapentin 100 mg 12/21/23 18:10 12/22/23 17:19 Gabapentin 100 Mg Capsule PO Not Given BID [facility] Glucagon 1 mg 12/21/23 18:00 Glucagon For Inj 1 Mg Vial IM PRN PRN Hypoglycemia Protocol Glucose 15 gm 12/21/23 18:00 Glucose Oral Gel 15 Gm Of Glucse In 37.5 Gm Tube PO PRN PRN Hypoglycemia Protocol Meropenem 1 gm in 100 mls @ 200 mls/hr 12/21/23 20:00 12/23/23 04:45 IVPB Infused Q8H [facility] Infusion Dextrose 1,000 mls @ 100 mls/hr 12/21/23 18:00 Dextrose 5% 1,000 Ml IVPB PRN PRN Hypoglycemia Protocol Insulin Aspart 4 - 8 units 12/22/23 08:00 12/23/23 07:32 Insulin Aspart (*Bkc) 100 Units/Ml SUB-Q Not Given TIDWM [facility] Protocol Insulin Aspart 2 - 4 units 12/21/23 21:00 12/22/23 20:32 Insulin Aspart (*Bkc) 100 Units/Ml SUB-Q Not Given HS [facility] Protocol Insulin Human Isoph/Insulin Regular 25 units 12/22/23 09:00 12/22/23 08:49 Insulin Human Isophan/Regular 70/30 (*Bkc) 100 Units/Ml SUB-Q Not Given QAM [facility] Insulin Human Isoph/Insulin Regular 15 units 12/21/23 21:00 12/22/23 20:32 Insulin Human Isophan/Regular 70/30 (*Bkc) 100 Units/Ml SUB-Q Not Given HS [facility] Levothyroxine Sodium 100 mcg 12/22/23 06:30 12/23/23 04:30 Levothyroxine Sodium 100 Mcg Tablet PO Not Given DAILY@0630 [facility] Lisinopril 10 mg 12/22/23 09:00 12/22/23 08:50 Lisinopril 10 Mg Tablet PO Not Given DAILY [facility] Magnesium Oxide 400 mg 12/22/23 12:00 12/22/23 11:30 Magnesium Oxide 400 Mg Tablet PO Not Given 1200 [facility] Melatonin 5 mg 12/21/23 21:00 12/22/23 20:33 Melatonin 5 Mg Tablet PO Not Given HS [facility] Metoprolol Succinate 75 mg 12/22/23 09:00 12/22/23 10:12 Metoprolol Succinate Ext Rel 25 Mg Tabcr PO 75 mg QAM [facility] Administration Miconazole Nitrate 1 applic 12/21/23 18:15 12/22/23 17:21 Miconazole Nitrate 2% Cream 30 Gm Tube TOPICAL 1 applic BID [facility] Administration Multivitamins/Calcium 1 tablet 12/22/23 09:00 12/22/23 08:51 Therapeutic Multivitamins/Minerals Tab (*Bkc) PO Not Given DAILY [facility] Ondansetron HCl 4 mg 12/21/23 13:44 Ondansetron Inj 4 Mg/2 Ml Vial IV PUSH Q4H PRN Nausea Pantoprazole Sodium 40 mg 12/21/23 21:00 12/22/23 20:31 Pantoprazole Sodium Iv 40 Mg Vial IV PUSH 40 mg Q12HR [facility] Administration Polyethylene Glycol 17 gm 12/21/23 18:15 12/22/23 17:19 Polyethylene Glycol 3350 17 Gm Powd.Pack PO Not Given BID [facility] Pravastatin Sodium 40 mg 12/21/23 21:00 12/22/23 20:33 Pravastatin Sodium 20 Mg Tablet PO Not Given HS [facility] Senna/Docusate Sodium 1 tab 12/21/23 18:15 12/22/23 17:19 Senna/Docusate Sodium Tablet PO Not Given BID [facility] Valsartan 20 mg 12/22/23 09:00 12/22/23 08:51 Valsartan 20 Mg Tablet PO Not Given DAILY [facility] Radiology Results: ITS Impressions Head CT 12/21/23 12:00 IMPRESSION: No acute intracranial findings. Chest/Abdomen/Pelvis CT 12/21/23 12:17 Impression: Findings compatible with extensive esophagitis. Correlate clinically. Multiple large right renal stones as well as 8 mm right mid ureteral stone. Moderate bilateral hydroureteronephrosis. Air in the right ureter. This could be iatrogenic versus pyelitis. Correlate clinically. Possible cystitis. Correlate with urinalysis. Cholelithiasis. Retrograde Pyelogram 12/22/23 13:31 IMPRESSION: 1. Moderate right hydronephrosis and hydroureter with right internal ureteral stent in expected position. 2. Mild left hydronephrosis and hydroureter with left internal ureteral stent in expected position. Labs Labs: Laboratory Results - last 24 hr 12/22/23 12/22/23 12/22/23 11:05 13:54 15:13 WBC RBC Hgb Hct MCV MCH MCHC RDW Plt Count MPV Immature Gran % (Auto) Neut % (Auto) Lymph % (Auto) [place] % (Auto) Eos % (Auto) Baso % (Auto) Lymph # (Auto) [place] # (Auto) Eos # (Auto) Baso # (Auto) Abs Immat Gran (auto) Absolute Neuts (auto) Absolute Nucleated RBC Nucleated RBC % Platelet Estimate Ovalocytes Isidro Cells Schistocytes Sodium Potassium Chloride Carbon Dioxide Anion Gap BUN Creatinine Estim Creat Clear Calc Estimated GFR Glucose POC Capillary Glucose 273 H 223 H 213 H Calcium Magnesium Total Bilirubin AST ALT Alkaline Phosphatase Total Protein Albumin 12/22/23 12/23/23 12/23/23 19:47 04:48 07:30 WBC 10.1 H RBC 5.14 Hgb 12.9 L Hct 43.3 MCV 84.2 MCH 25.1 L MCHC 29.8 L RDW 16.2 H Plt Count 278 MPV 10.0 Immature Gran % (Auto) 0.3 Neut % (Auto) 85.8 H Lymph % (Auto) 5.9 L [place] % (Auto) 7.0 Eos % (Auto) 0.8 Baso % (Auto) 0.2 Lymph # (Auto) 0.60 L [place] # (Auto) 0.7 H Eos # (Auto) 0.1 Baso # (Auto) 0.0 Abs Immat Gran (auto) 0.03 Absolute Neuts (auto) 8.7 H Absolute Nucleated RBC 0.000 Nucleated RBC % 0.0 Platelet Estimate Adequate Ovalocytes 1+ Isidro Cells 1+ Schistocytes None seen Sodium 134 L Potassium 3.6 Chloride 102 Carbon Dioxide 29 Anion Gap 3 L BUN 33 H Creatinine 1.20 Estim Creat Clear Calc 73 Estimated GFR 60 Glucose 189 H POC Capillary Glucose 208 H 166 H Calcium 9.3 Magnesium 1.9 Total Bilirubin 0.4 AST 15 L ALT 15 Alkaline Phosphatase 89 Total Protein 6.0 L Albumin 2.6 L
[2023-12-23] MEDS: PANTOPRAZOLE SODIUM IV 40 MG VIAL IV PUSH ×2 (09:49→20:42)
[2023-12-23] MEDS: MICONAZOLE NITRATE 2% CREAM 30 GM TUBE 1 APPLIC TOPICAL ×2 (09:53→16:42)
[2023-12-23 11:59] LABS: Glucose Point of Care 173 mg/dl (65-105)
[2023-12-23] MEDS: LACTATED RINGERS 1,000 ML 150 ML IV CONT (13:50)
--- NOTE | 2023-12-23 13:51 | PC.NURSE ---
Pt off floor for EGD via bed accompanied by two RNs.
[2023-12-23 14:00] LABS: Glucose Point of Care 179 mg/dl (65-105)
--- NOTE | 2023-12-23 14:58 | P.PNGI_ITS ---
Progress Note: A&P Assessment and Plan (1) Hematemesis: Qualifiers: Nausea presence: unspecified Qualified Code(s): K92.0 - Hematemesis Code(s): K92.0 - Hematemesis Status: Acute Assessment and Plan: h/h stable, no more episodes ct showed esophagitis prefer conservative management, he is septic and had cardiac issure during anesthesia will treat with iv protonix and carafate, ok to advance diet hold off egd unless any new changes (2) Sepsis: Code(s): A41.9 - Sepsis, unspecified organism Status: Acute Assessment and Plan: e coli bacteremia source is urological s/p intervention (3) Esophagitis: Code(s): K20.90 - Esophagitis, unspecified without bleeding Status: Acute Assessment and Plan: iv protonix (4) E coli bacteremia: Code(s): R78.81 - Bacteremia; B96.20 - Unspecified Escherichia coli [E. coli] as the cause of diseases classified elsewhere Status: Acute Assessment and Plan: on abx (5) Hydroureteronephrosis: Code(s): N13.30 - Unspecified hydronephrosis Status: Acute (6) Right ureteral stone: Code(s): N20.1 - Calculus of ureter Status: Acute Assessment and Plan: by urology (7) Atrial fibrillation: Code(s): I48.91 - Unspecified atrial fibrillation Status: Acute Subjective Date/time seen: 12/23/23 14:58 Interval history: yesterday during cystoscopy he had afib with rvr and required briefly pressors he is septic with GNR bacteremia and after discussing case with anesthesia deemed to still be at high risk for anesthesia no more dark emesis Review of Systems Review of Systems: All systems reviewed & are unremarkable except as noted in HPI and below Exam Const: Other: awake and alert but confused, sick HENMT: Face/Nose/Sinus: Normal nares present Eyes: General: appearance normal, both eyes and all related structures Neck: Neck: supple Resp: Effort & Inspection: normal respiratory effort Cardio: Rate: regular rate GI: GI Palp: Yes Soft to palpation and No Tenderness to palpation present (GI) Auscultation: normal bowel sounds Skin: General skin exam: normal color Neuro: Other: awake and alert, confused Extrem: General: normal to inspection Objective Data Vital Signs Vital Signs: Vital Signs - 24 hr 12/22/23 15:51 12/22/23 16:00 12/22/23 16:00 Temperature 97.5 F L Pulse Rate 84 88 70 Respiratory Rate 16 Blood Pressure 159/91 H 184/90 H Pulse Oximetry 100 Oxygen Delivery Oxygen Flow Rate 12/22/23 16:00 12/22/23 18:00 12/22/23 19:40 Temperature 98.0 F Pulse Rate 86 90 Respiratory Rate 20 Blood Pressure 129/71 Pulse Oximetry 99 100 Oxygen Delivery Nasal Cannula Oxygen Flow Rate 2 12/22/23 20:00 12/22/23 20:00 12/22/23 21:51 Temperature Pulse Rate 90 90 90 Respiratory Rate 20 Blood Pressure Pulse Oximetry 100 Oxygen Delivery Nasal Cannula Oxygen Flow Rate 2 12/22/23 23:50 12/23/23 00:00 12/23/23 00:00 Temperature 97.5 F L Pulse Rate 80 86 86 Respiratory Rate 20 20 Blood Pressure 90/54 L Pulse Oximetry 96 96 Oxygen Delivery Room Air Oxygen Flow Rate 12/23/23 02:00 12/23/23 04:15 12/23/23 04:00 Temperature 98.3 F Pulse Rate 90 89 80 Respiratory Rate 20 Blood Pressure 115/59 L Pulse Oximetry 96 Oxygen Delivery Oxygen Flow Rate 12/23/23 04:00 12/23/23 05:35 12/23/23 07:52 Temperature 97.6 F Pulse Rate 89 86 84 Respiratory Rate 20 20 Blood Pressure 120/65 Pulse Oximetry 96 95 Oxygen Delivery Room Air Oxygen Flow Rate 12/23/23 08:37 12/23/23 11:23 12/23/23 08:00 Temperature 98.5 F Pulse Rate 85 77 91 Respiratory Rate 20 Blood Pressure 154/87 H Pulse Oximetry 100 Oxygen Delivery Oxygen Flow Rate 12/23/23 08:00 12/23/23 10:00 12/23/23 12:00 Temperature Pulse Rate 77 84 Respiratory Rate Blood Pressure Pulse Oximetry 100 Oxygen Delivery Nasal Cannula Oxygen Flow Rate 2 12/23/23 12:00 12/23/23 13:46 Temperature 96.9 F L Pulse Rate 79 Respiratory Rate 20 Blood Pressure 151/81 H Pulse Oximetry 100 98 Oxygen Delivery Nasal Cannula Nasal Cannula Oxygen Flow Rate 2 2 Intake/Output Intake/Output: Intake & Output 12/20/23 12/21/23 12/22/2324 23:59 23:59 23:59 23:59 Intake Total 160 1500 100 Output Total 1300 925 350 Balance -1140 575 -250 Meds/Results Medications: Active Medications Generic Name Dose Route Start Last Admin Trade Name Freq PRN Reason Stop Dose Admin Acetaminophen 650 mg 12/21/23 17:59 Acetaminophen 325 Mg Tablet PO Q4-6H PRN Pain (Scale Score 1-3) Hydrocodone Bitart/Acetaminophen 1 tab 12/21/23 17:59 12/22/23 10:33 Hydrocodone/Acetaminophen (*Crx) 5-325 Mg Tablet PO 1 tab Q8H PRN Administration Pain (Scale Score 4-6) Albuterol/Ipratropium 3 ml 12/21/23 17:59 Ipratropium 0.5 Mg/Albuterol Sulfate 2.5 Mg Ampul.Neb 3 Ml INHALATION Q4H PRN Wheezing Bupropion HCl 150 mg 12/22/23 09:00 12/23/23 08:35 Bupropion Hcl Xl (24 Hr) 150 Mg Tabcr PO Not Given QAM HERMILO Dextrose 12.5 gm 12/21/23 18:00 Dextrose 50% 25 Gm/50 Ml Syringe IV PUSH PRN PRN Hypoglycemia Protocol Gabapentin 100 mg 12/21/23 18:10 12/23/23 08:36 Gabapentin 100 Mg Capsule PO Not Given BID [facility] Glucagon 1 mg 12/21/23 18:00 Glucagon For Inj 1 Mg Vial IM PRN PRN Hypoglycemia Protocol Glucose 15 gm 12/21/23 18:00 Glucose Oral Gel 15 Gm Of Glucse In 37.5 Gm Tube PO PRN PRN Hypoglycemia Protocol Meropenem 1 gm in 100 mls @ 200 mls/hr 12/21/23 20:00 12/23/23 04:45 IVPB Infused Q8H [facility]O Infusion Dextrose 1,000 mls @ 100 mls/hr 12/21/23 18:00 Dextrose 5% 1,000 Ml IVPB PRN PRN Hypoglycemia Protocol Insulin Aspart 4 - 8 units 12/22/23 08:00 12/23/23 12:12 Insulin Aspart (*Bkc) 100 Units/Ml SUB-Q Not Given TIDWM [facility] Protocol Insulin Aspart 2 - 4 units 12/21/23 21:00 12/22/23 20:32 Insulin Aspart (*Bkc) 100 Units/Ml SUB-Q Not Given HS [facility] Protocol Insulin Human Isoph/Insulin Regular 25 units 12/22/23 09:00 12/23/23 08:36 Insulin Human Isophan/Regular 70/30 (*Bkc) 100 Units/Ml SUB-Q Not Given QAM [facility] Insulin Human Isoph/Insulin Regular 15 units 12/23/23 17:00 Insulin Human Isophan/Regular 70/30 (*Bkc) 100 Units/Ml SUB-Q DAILY@1700 [facility] Levothyroxine Sodium 100 mcg 12/22/23 06:30 12/23/23 04:30 Levothyroxine Sodium 100 Mcg Tablet PO Not Given DAILY@0630 [facility] Lisinopril 10 mg 12/22/23 09:00 12/23/23 08:37 Lisinopril 10 Mg Tablet PO Not Given DAILY [facility] Magnesium Oxide 400 mg 12/22/23 12:00 12/23/23 12:13 Magnesium Oxide 400 Mg Tablet PO Not Given 1200 [facility] Melatonin 5 mg 12/21/23 21:00 12/22/23 20:33 Melatonin 5 Mg Tablet PO Not Given HS [facility] Metoprolol Succinate 75 mg 12/22/23 09:00 12/23/23 08:37 Metoprolol Succinate Ext Rel 25 Mg Tabcr PO Not Given QAM [facility] Miconazole Nitrate 1 applic 12/21/23 18:15 12/23/23 09:53 Miconazole Nitrate 2% Cream 30 Gm Tube TOPICAL 1 applic BID [facility] Administration Multivitamins/Calcium 1 tablet 12/22/23 09:00 12/23/23 08:38 Therapeutic Multivitamins/Minerals Tab (*Bkc) PO Not Given DAILY [facility] Ondansetron HCl 4 mg 12/21/23 13:44 Ondansetron Inj 4 Mg/2 Ml Vial IV PUSH Q4H PRN Nausea Pantoprazole Sodium 40 mg 12/21/23 21:00 12/23/23 09:49 Pantoprazole Sodium Iv 40 Mg Vial IV PUSH 40 mg Q12HR [facility] Administration Polyethylene Glycol 17 gm 12/21/23 18:15 12/23/23 08:38 Polyethylene Glycol 3350 17 Gm Powd.Pack PO Not Given BID [facility] Pravastatin Sodium 40 mg 12/21/23 21:00 12/22/23 20:33 Pravastatin Sodium 20 Mg Tablet PO Not Given HS [facility] Senna/Docusate Sodium 1 tab 12/21/23 18:15 12/23/23 08:35 Senna/Docusate Sodium Tablet PO Not Given BID [facility] Sucralfate 1,000 mg 12/23/23 16:30 Sucralfate Susp 100 Mg/Ml 10 Ml Udc PO ACHS [facility] Valsartan 20 mg 12/22/23 09:00 12/23/23 08:38 Valsartan 20 Mg Tablet PO Not Given DAILY [facility] Radiology Results: ITS Impressions Head CT 12/21/23 12:00 IMPRESSION: No acute intracranial findings. Chest/Abdomen/Pelvis CT 12/21/23 12:17 Impression: Findings compatible with extensive esophagitis. Correlate clinically. Multiple large right renal stones as well as 8 mm right mid ureteral stone. Moderate bilateral hydroureteronephrosis. Air in the right ureter. This could be iatrogenic versus pyelitis. Correlate clinically. Possible cystitis. Correlate with urinalysis. Cholelithiasis. Retrograde Pyelogram 12/22/23 13:31 IMPRESSION: 1. Moderate right hydronephrosis and hydroureter with right internal ureteral stent in expected position. 2. Mild left hydronephrosis and hydroureter with left internal ureteral stent in expected position. Labs Labs: Laboratory Results - last 24 hr 12/22/23 12/22/23 12/23/23 15:13 19:47 04:48 WBC 10.1 H RBC 5.14 Hgb 12.9 L Hct 43.3 MCV 84.2 MCH 25.1 L MCHC 29.8 L RDW 16.2 H Plt Count 278 MPV 10.0 Immature Gran % (Auto) 0.3 Neut % (Auto) 85.8 H Lymph % (Auto) 5.9 L [place] % (Auto) 7.0 Eos % (Auto) 0.8 Baso % (Auto) 0.2 Lymph # (Auto) 0.60 L [place] # (Auto) 0.7 H Eos # (Auto) 0.1 Baso # (Auto) 0.0 Abs Immat Gran (auto) 0.03 Absolute Neuts (auto) 8.7 H Absolute Nucleated RBC 0.000 Nucleated RBC % 0.0 Platelet Estimate Adequate Ovalocytes 1+ Isidro Cells 1+ Schistocytes None seen Sodium 134 L Potassium 3.6 Chloride 102 Carbon Dioxide 29 Anion Gap 3 L BUN 33 H Creatinine 1.20 Estim Creat Clear Calc 73 Estimated GFR 60 Glucose 189 H POC Capillary Glucose 213 H 208 H Calcium 9.3 Magnesium 1.9 Total Bilirubin 0.4 AST 15 L ALT 15 Alkaline Phosphatase 89 Total Protein 6.0 L Albumin 2.6 L 12/23/23 12/23/23 12/23/23 07:30 11:22 13:53 WBC RBC Hgb Hct MCV MCH MCHC RDW Plt Count MPV Immature Gran % (Auto) Neut % (Auto) Lymph % (Auto) [place] % (Auto) Eos % (Auto) Baso % (Auto) Lymph # (Auto) [place] # (Auto) Eos # (Auto) Baso # (Auto) Abs Immat Gran (auto) Absolute Neuts (auto) Absolute Nucleated RBC Nucleated RBC % Platelet Estimate Ovalocytes Salol Cells Schistocytes Sodium Potassium Chloride Carbon Dioxide Anion Gap BUN Creatinine Estim Creat Clear Calc Estimated GFR Glucose POC Capillary Glucose 166 H 173 H 179 H Calcium Magnesium Total Bilirubin AST ALT Alkaline Phosphatase Total Protein Albumin
--- NOTE | 2023-12-23 16:01 | PM.IMPN ---
Progress Note: A&P Assessment and Plan (1) E coli bacteremia: Code(s): R78.81 - Bacteremia; B96.20 - Unspecified Escherichia coli [E. coli] as the cause of diseases classified elsewhere Status: Acute Assessment and Plan: WBC count 19.2 but no other evidence of sepsis picture. AMS on admission as somnolent. Narcan given but no benefit. CT head showing no acute process. UA consistent with UTI. UCx and BCx collected CT of the abdomen and pelvis showed extensive esophagitis, multiple large right renal stones as well as an 8 mm right mid ureteral stone with moderate bilateral hydroureteronephrosis, air in the right ureter, and cholelithiasis. Ceftriaxone 1gm given Urology, was consulted and patient underwent cystoscopy, bilateral retrogrades, bilateral ureteral stent placement 6 Prydeinig contour stents and Coats catheter placement. UTI in the setting of chronic indwelling Coats catheter. BCx returned positive and he was changed to meropenem given history of ESBL E coli. UCx negative. BCx growing EColi. Suspect urinary source despite negative UCx. Continue meropenem until cultures are known. (2) Hematemesis: Qualifiers: Nausea presence: unspecified Qualified Code(s): K92.0 - Hematemesis Code(s): K92.0 - Hematemesis Status: Acute Assessment and Plan: Patient here for coffee ground emesis. Hgb 15.4. CT of the abdomen and pelvis showed findings compatible with extensive esophagitis. PPI IV Q12H ordered. GI consulted for EGD. H&H remaining stable EGD held for today due to concern for AFib Probably in response to the bacteremia. Continue PPI. Monitor HH (3) Esophagitis: Code(s): K20.90 - Esophagitis, unspecified without bleeding Status: Acute Assessment and Plan: As above. Treat for esophagitis. (4) Right ureteral stone: Code(s): N20.1 - Calculus of ureter Status: Acute Assessment and Plan: As above (5) Hydroureteronephrosis: Code(s): N13.30 - Unspecified hydronephrosis Status: Acute Assessment and Plan: As above. (6) Non healing left heel wound: Code(s): S91.302A - Unspecified open wound, left foot, initial encounter Status: Acute Assessment and Plan: Routine wound care. (7) Chronic hyponatremia: Code(s): E87.1 - Hypo-osmolality and hyponatremia Status: Acute Assessment and Plan: Na 129 on admisison but climbed slowly to 134. Follow (8) Insulin dependent diabetes mellitus: Status: Chronic Assessment and Plan: A1c 8.7%. The patient's blood glucose was reviewed on 12/22 Glucose remains reasonably well controlled. Diabetic diet Continue AccuCheks covering with sliding scale. Hypoglycemia protocol available as needed. Continue to follow (9) Chronic anticoagulation: Code(s): Z79.01 - retirement (current) use of anticoagulants Status: Chronic Assessment and Plan: On Eliquis prior to admission and currently on hold due to the hemetemesis. Follow. Resume when/if able. (10) Hypertension: Code(s): I10 - Essential (primary) hypertension Status: Chronic Assessment and Plan: Patient's blood pressure was reviewed on 12/22 Blood pressure with wide fluctuations. Will continue current medications and monitor Stop ACEI since on Valsartan. (11) Hypothyroidism: Code(s): E03.9 - Hypothyroidism, unspecified Status: Chronic Assessment and Plan: TSH normal in September. Continue levothyroxine Plan DVT prophylaxis SCD Code status full code [facility] resident Subjective Date/time seen: 12/23/23 16:01 Interval history: 67yo male with dementia, pAFib, diastolic CHF, insulin-dependent DM, hypothyroidism, HTN, untreated JUN, chronic venous stasis dermatitis, indwelling Coats catheter, kidney stones, chronic left heel wound with history of osteomyelitis of the left calcaneus with previous cultures growing out Pseudomonas and MRSA, and other comorbidities who presented to the emergency department via EMS from [facility] with reports of coffee ground emesis. Assuming care. Chart reviewed. RN states patient complaining of pain in his hands but when asked about pain in general, he complains of back pain but denies CP or abd pain. He is alert but confused so hx is unreliable. Exam Narrative: AF 96.9 151/81 79 20 98% 2L Gen - NARD Chest - bibasilar crackles. nml RR CV - irregularly irergular. Tele showing AFib with controlled rate. Abd - Soft, NT/ND, Positive BS, abd mass upper abd consistent with mesh Ext - No pedal edema. 2+ DP bilaterally Neuro - Alert but confused. Psych - Nml mood and affect Skin - Warm and dry. Left heel dressing in place. Objective Data Vital Signs Vital Signs: Vital Signs - 24 hr 12/22/23 18:00 12/22/23 19:40 12/22/23 20:00 Temperature 98.0 F Pulse Rate 86 90 90 Respiratory Rate 20 Blood Pressure 129/71 Pulse Oximetry 100 Oxygen Delivery Oxygen Flow Rate 12/22/23 20:00 12/22/23 21:51 12/22/23 23:50 Temperature 97.5 F L Pulse Rate 90 90 80 Respiratory Rate 20 20 Blood Pressure 90/54 L Pulse Oximetry 100 96 Oxygen Delivery Nasal Cannula Oxygen Flow Rate 2 12/23/23 00:00 12/23/23 00:00 12/23/23 02:00 Temperature Pulse Rate 86 86 90 Respiratory Rate 20 Blood Pressure Pulse Oximetry 96 Oxygen Delivery Room Air Oxygen Flow Rate 12/23/23 04:15 12/23/23 04:00 12/23/23 04:00 Temperature 98.3 F Pulse Rate 89 80 89 Respiratory Rate 20 20 Blood Pressure 115/59 L Pulse Oximetry 96 96 Oxygen Delivery Room Air Oxygen Flow Rate 12/23/23 05:35 12/23/23 07:52 12/23/23 08:37 Temperature 97.6 F Pulse Rate 86 84 85 Respiratory Rate 20 Blood Pressure 120/65 Pulse Oximetry 95 Oxygen Delivery Oxygen Flow Rate 12/23/23 11:23 12/23/23 08:00 12/23/23 08:00 Temperature 98.5 F Pulse Rate 77 91 Respiratory Rate 20 Blood Pressure 154/87 H Pulse Oximetry 100 100 Oxygen Delivery Nasal Cannula Oxygen Flow Rate 2 12/23/23 10:00 12/23/23 12:00 12/23/23 12:00 Temperature Pulse Rate 77 84 Respiratory Rate Blood Pressure Pulse Oximetry 100 Oxygen Delivery Nasal Cannula Oxygen Flow Rate 2 12/23/23 13:46 Temperature 96.9 F L Pulse Rate 79 Respiratory Rate 20 Blood Pressure 151/81 H Pulse Oximetry 98 Oxygen Delivery Nasal Cannula Oxygen Flow Rate 2 Intake/Output Intake/Output: Intake & Output 12/20/23 12/21/23 12/22/23 12/23/23 23:59 23:59 23:59 23:59 Intake Total 160 1500 100 Output Total 1300 925 350 Balance -1140 575 -250 Meds/Results Medications: Active Medications Generic Name Dose Route Start Last Admin Trade Name Freq PRN Reason Stop Dose Admin Acetaminophen 650 mg 12/21/23 17:59 Acetaminophen 325 Mg Tablet PO Q4-6H PRN Pain (Scale Score 1-3) Hydrocodone Bitart/Acetaminophen 1 tab 12/21/23 17:59 12/22/23 10:33 Hydrocodone/Acetaminophen (*Crx) 5-325 Mg Tablet PO 1 tab Q8H PRN Administration Pain (Scale Score 4-6) Albuterol/Ipratropium 3 ml 12/21/23 17:59 Ipratropium 0.5 Mg/Albuterol Sulfate 2.5 Mg Ampul.Neb 3 Ml INHALATION Q4H PRN Wheezing Bupropion HCl 150 mg 12/22/23 09:00 12/23/23 08:35 Bupropion Hcl Xl (24 Hr) 150 Mg Tabcr PO Not Given QAM HERMILO Dextrose 12.5 gm 12/21/23 18:00 Dextrose 50% 25 Gm/50 Ml Syringe IV PUSH PRN PRN Hypoglycemia Protocol Gabapentin 100 mg 12/21/23 18:10 12/23/23 08:36 Gabapentin 100 Mg Capsule PO Not Given BID HERMILO Glucagon 1 mg 12/21/23 18:00 Glucagon For Inj 1 Mg Vial IM PRN PRN Hypoglycemia Protocol Glucose 15 gm 12/21/23 18:00 Glucose Oral Gel 15 Gm Of Glucse In 37.5 Gm Tube PO PRN PRN Hypoglycemia Protocol Meropenem 1 gm in 100 mls @ 200 mls/hr 12/21/23 20:00 12/23/23 04:45 IVPB Infused Q8H HERMILO Infusion Dextrose 1,000 mls @ 100 mls/hr 12/21/23 18:00 Dextrose 5% 1,000 Ml IVPB PRN PRN Hypoglycemia Protocol Insulin Aspart 4 - 8 units 12/22/23 08:00 12/23/23 12:12 Insulin Aspart (*Bkc) 100 Units/Ml SUB-Q Not Given TIDWM [facility] Protocol Insulin Aspart 2 - 4 units 12/21/23 21:00 12/22/23 20:32 Insulin Aspart (*Bkc) 100 Units/Ml SUB-Q Not Given HS [facility] Protocol Insulin Human Isoph/Insulin Regular 25 units 12/22/23 09:00 12/23/23 08:36 Insulin Human Isophan/Regular 70/30 (*Bkc) 100 Units/Ml SUB-Q Not Given QAM [facility] Insulin Human Isoph/Insulin Regular 15 units 12/23/23 17:00 Insulin Human Isophan/Regular 70/30 (*Bkc) 100 Units/Ml SUB-Q DAILY@1700 [facility] Levothyroxine Sodium 100 mcg 12/22/23 06:30 12/23/23 04:30 Levothyroxine Sodium 100 Mcg Tablet PO Not Given DAILY@0630 [facility] Lisinopril 10 mg 12/22/23 09:00 12/23/23 08:37 Lisinopril 10 Mg Tablet PO Not Given DAILY HERMILO Magnesium Oxide 400 mg 12/22/23 12:00 12/23/23 12:13 Magnesium Oxide 400 Mg Tablet PO Not Given 1200 [facility] Melatonin 5 mg 12/21/23 21:00 12/22/23 20:33 Melatonin 5 Mg Tablet PO Not Given HS [facility] Metoprolol Succinate 75 mg 12/22/23 09:00 12/23/23 08:37 Metoprolol Succinate Ext Rel 25 Mg Tabcr PO Not Given QAM [facility] Miconazole Nitrate 1 applic 12/21/23 18:15 12/23/23 09:53 Miconazole Nitrate 2% Cream 30 Gm Tube TOPICAL 1 applic BID [facility] Administration Multivitamins/Calcium 1 tablet 12/22/23 09:00 12/23/23 08:38 Therapeutic Multivitamins/Minerals Tab (*Bkc) PO Not Given DAILY [facility] Ondansetron HCl 4 mg 12/21/23 13:44 Ondansetron Inj 4 Mg/2 Ml Vial IV PUSH Q4H PRN Nausea Pantoprazole Sodium 40 mg 12/21/23 21:00 12/23/23 09:49 Pantoprazole Sodium Iv 40 Mg Vial IV PUSH 40 mg Q12HR [facility] Administration Polyethylene Glycol 17 gm 12/21/23 18:15 12/23/23 08:38 Polyethylene Glycol 3350 17 Gm Powd.Pack PO Not Given BID [facility] Pravastatin Sodium 40 mg 12/21/23 21:00 12/22/23 20:33 Pravastatin Sodium 20 Mg Tablet PO Not Given HS [facility] Senna/Docusate Sodium 1 tab 12/21/23 18:15 12/23/23 08:35 Senna/Docusate Sodium Tablet PO Not Given BID [facility] Sucralfate 1,000 mg 12/23/23 16:30 Sucralfate Susp 100 Mg/Ml 10 Ml Udc PO ACHS HERMILO Valsartan 20 mg 12/22/23 09:00 12/23/23 08:38 Valsartan 20 Mg Tablet PO Not Given DAILY [facility] Radiology Results: ITS Impressions Head CT 12/21/23 12:00 IMPRESSION: No acute intracranial findings. Chest/Abdomen/Pelvis CT 12/21/23 12:17 Impression: Findings compatible with extensive esophagitis. Correlate clinically. Multiple large right renal stones as well as 8 mm right mid ureteral stone. Moderate bilateral hydroureteronephrosis. Air in the right ureter. This could be iatrogenic versus pyelitis. Correlate clinically. Possible cystitis. Correlate with urinalysis. Cholelithiasis. Retrograde Pyelogram 12/22/23 13:31 IMPRESSION: 1. Moderate right hydronephrosis and hydroureter with right internal ureteral stent in expected position. 2. Mild left hydronephrosis and hydroureter with left internal ureteral stent in expected position. Labs Labs: Laboratory Results - last 24 hr 12/22/23 12/22/23 12/23/23 15:13 19:47 04:48 WBC 10.1 H RBC 5.14 Hgb 12.9 L Hct 43.3 MCV 84.2 MCH 25.1 L MCHC 29.8 L RDW 16.2 H Plt Count 278 MPV 10.0 Immature Gran % (Auto) 0.3 Neut % (Auto) 85.8 H Lymph % (Auto) 5.9 L Grant % (Auto) 7.0 Eos % (Auto) 0.8 Baso % (Auto) 0.2 Lymph # (Auto) 0.60 L Grant # (Auto) 0.7 H Eos # (Auto) 0.1 Baso # (Auto) 0.0 Abs Immat Gran (auto) 0.03 Absolute Neuts (auto) 8.7 H Absolute Nucleated RBC 0.000 Nucleated RBC % 0.0 Platelet Estimate Adequate Ovalocytes 1+ Isidro Cells 1+ Schistocytes None seen Sodium 134 L Potassium 3.6 Chloride 102 Carbon Dioxide 29 Anion Gap 3 L BUN 33 H Creatinine 1.20 Estim Creat Clear Calc 73 Estimated GFR 60 Glucose 189 H POC Capillary Glucose 213 H 208 H Calcium 9.3 Magnesium 1.9 Total Bilirubin 0.4 AST 15 L ALT 15 Alkaline Phosphatase 89 Total Protein 6.0 L Albumin 2.6 L 12/23/23 12/23/23 12/23/23 07:30 11:22 13:53 WBC RBC Hgb Hct MCV MCH MCHC RDW Plt Count MPV Immature Gran % (Auto) Neut % (Auto) Lymph % (Auto) Grant % (Auto) Eos % (Auto) Baso % (Auto) Lymph # (Auto) Grant # (Auto) Eos # (Auto) Baso # (Auto) Abs Immat Gran (auto) Absolute Neuts (auto) Absolute Nucleated RBC Nucleated RBC % Platelet Estimate Ovalocytes Isidro Cells Schistocytes Sodium Potassium Chloride Carbon Dioxide Anion Gap BUN Creatinine Estim Creat Clear Calc Estimated GFR Glucose POC Capillary Glucose 166 H 173 H 179 H Calcium Magnesium Total Bilirubin AST ALT Alkaline Phosphatase Total Protein Albumin
--- NOTE | 2023-12-23 16:18 | P.PNAN_ITS ---
Anes - Initial Pre Proc Eval Procedure: Operation Date: 12/22/23 14:15 Proposed Procedures p Cystoscopy, Right Stent Placement, Possible Left Stent Placement - Blayne Young MD Operation Date: 12/23/23 15:00 Proposed Procedures p Esophagogastroduodenoscopy - Keven Ferreira MD Date/Time: 12/23/23 16:18 Surgeon: Paul Rosado MD Pre Op Diagnosis: Altered mental status, UTI Patient Data Age: 68 Gender: M Height: 1.88 m Weight: 122.1 kg Last Vital Signs Temp 97.3 F L 12/23/23 16:00 Pulse 85 12/23/23 16:00 Resp 20 12/23/23 16:00 BP 188/106 H 12/23/23 16:00 Pulse Ox 99 12/23/23 16:00 O2 Del Method Nasal Cannula 12/23/23 13:46 O2 Flow Rate 2 12/23/23 13:46 Allergies Allergy/AdvReac Type Severity Reaction Status Date / Time No Known Allergies Allergy Verified 12/22/23 12:21 Home Medications Medication Instructions Recorded Confirmed Type ipratropium 0.5 mg-albuterol 3 mg 3 ml inhalation Q4H PRN Wheezing 02/15/21 12/21/23 History (2.5 mg base)/3 mL nebulization soln levothyroxine 100 mcg tablet 100 mcg PO DAILY 02/15/21 12/21/23 History aspirin 81 mg tablet,delayed 81 mg PO QAM #30 tabs 02/19/21 12/21/23 Rx release pravastatin 40 mg tablet 40 mg PO HS 12/08/21 12/21/23 History multivitamin with minerals-folic 1 tablet PO DAILY 03/02/22 12/21/23 History acid 0.4 mg tablet apixaban 5 mg tablet (Eliquis) 5 mg PO Q12HR #60 tabs 07/01/22 12/21/23 Rx acetaminophen 325 mg capsule 650 mg PO Q4-6H PRN Pain (Scale 09/10/22 12/21/23 History (Tylenol) Score 1-3) sennosides 8.6 mg-docusate sodium 1 tablet PO BID 09/10/22 12/21/23 History 50 mg tablet (Senna Plus) melatonin 5 mg tablet 5 mg PO HS 03/10/23 12/21/23 History bupropion HCl 150 mg 24 hr tablet, 150 mg PO QAM #30 tabs 05/23/23 12/21/23 Rx extended release valsartan 40 mg tablet 20 mg PO DAILY #30 tabs 05/23/23 12/21/23 Rx lanolin alcohols-mineral 1 applic topical DAILY #113 grams 06/26/23 12/21/23 Rx oil-w.petrolatum-ceresin topical cream (Minerin Creme topical) polyethylene glycol 3350 17 gram 17 g PO BID #30 ea 06/26/23 12/21/23 Rx oral powder packet (Miralax) famotidine 20 mg tablet 20 mg PO DAILY 08/07/23 12/21/23 History hydrocodone 5 mg-acetaminophen 325 1 tablet PO Q8H PRN Pain (Scale 08/07/23 12/21/23 History mg tablet Score 4-6) insulin NPH-regular 70-30 U-100 15 unit subcut HS 08/07/23 12/21/23 History insulin 100 unit/mL subcutaneous pen (Novolin 70-30 FlexPen U-100 Insulin) insulin NPH-regular 70-30 U-100 25 unit subcut QAM 08/07/23 12/21/23 History insulin 100 unit/mL subcutaneous pen (Novolin 70-30 FlexPen U-100 Insulin) magnesium oxide 400 mg (241.3 mg 400 mg PO 1200 08/07/23 12/21/23 History magnesium) tablet metoprolol succinate 25 mg 75 mg PO QAM #90 tabs 08/18/23 12/21/23 Rx tablet,extended release 24 hr (Toprol XL) gabapentin 100 mg capsule 100 mg PO BID #20 caps 11/03/23 12/21/23 Rx lisinopril 10 mg tablet 10 mg PO DAILY #30 tabs 11/03/23 12/21/23 Rx nystatin 100,000 unit/gram topical 1 applic topical BID 11/30/23 12/21/23 History cream Laboratory Tests 12/22/23 12/23/23 12/23/23 19:47 04:48 07:30 WBC 10.1 H K/mm3 (4.5-10.0) RBC 5.14 M/mm3 (4.6-6.20) Hgb 12.9 L g/dL (14.0-18.0) Hct 43.3 % (42.0-52.0) MCV 84.2 fl (80-100) MCH 25.1 L pg (26-34) MCHC 29.8 L g/dl (32-36) RDW 16.2 H % (11.5-14.5) Plt Count 278 k/mm3 (150-375) MPV 10.0 fl (7.4-10.4) Immature Gran % (Auto) 0.3 % (0-0.5) Neut % (Auto) 85.8 H % (45.5-73.1) Lymph % (Auto) 5.9 L % (18.3-44.2) Daniels % (Auto) 7.0 % (2.6-8.5) Eos % (Auto) 0.8 % (0-4.4) Baso % (Auto) 0.2 % (0.2-1.2) Lymph # (Auto) 0.60 L K/mm3 (0.9-3.2) Daniels # (Auto) 0.7 H K/mm3 (0.1-0.6) Eos # (Auto) 0.1 K/mm3 (0-0.3) Baso # (Auto) 0.0 K/mm3 (0.0-0.1) Abs Immat Gran (auto) 0.03 K/mm3 (0.00-0.031) Absolute Neuts (auto) 8.7 H K/mm3 (1.3-6.7) Absolute Nucleated RBC 0.000 K/mm3 (0.0-0.012) Nucleated RBC % 0.0 % (0.0-0.2) Platelet Estimate Adequate (Adequate) Ovalocytes 1+ [place] Cells 1+ Schistocytes None seen Sodium 134 L mmol/L (137-145) Potassium 3.6 mmol/L (3.4-5.0) Chloride 102 mmol/L (98-107) Carbon Dioxide 29 mmol/L (22-30) Anion Gap 3 L mmol/L (4-12) BUN 33 H mg/dL (9-20) Creatinine 1.20 mg/dL (0.7-1.3) Estim Creat Clear Calc 73 ml/min Estimated GFR 60 (59 - ) Glucose 189 H mg/dL (65-110) POC Capillary Glucose 208 H mg/dl 166 H mg/dl (65-105) (65-105) Calcium 9.3 mg/dL (8.4-10.2) Magnesium 1.9 mg/dL (1.6-2.3) Total Bilirubin 0.4 mg/dL (0.2-1.3) AST 15 L U/L (17-59) ALT 15 U/L (6-50) Alkaline Phosphatase 89 U/L (38-126) Total Protein 6.0 L g/dL (6.3-8.2) Albumin 2.6 L g/dL (3.5-5.1) 12/23/23 12/23/23 11:22 13:53 WBC RBC Hgb Hct MCV MCH MCHC RDW Plt Count MPV Immature Gran % (Auto) Neut % (Auto) Lymph % (Auto) Daniels % (Auto) Eos % (Auto) Baso % (Auto) Lymph # (Auto) Daniels # (Auto) Eos # (Auto) Baso # (Auto) Abs Immat Gran (auto) Absolute Neuts (auto) Absolute Nucleated RBC Nucleated RBC % Platelet Estimate Ovalocytes [place] Cells Schistocytes Sodium Potassium Chloride Carbon Dioxide Anion Gap BUN Creatinine Estim Creat Clear Calc Estimated GFR Glucose POC Capillary Glucose 173 H mg/dl 179 H mg/dl (65-105) (65-105) Calcium Magnesium Total Bilirubin AST ALT Alkaline Phosphatase Total Protein Albumin Patient hx anesthesia problems: none Family hx anesthesia problems: none Results Review: All pre-operative results and documents have been reviewed as part of the pre- operative evaluation. [facility] Past Medical History Medical History (Updated 12/23/23 @ 15:00 by Keven Ferreira MD) Choledocholithiasis (05/2022) Chronic hyponatremia Chronic indwelling Coats catheter Chronic obstructive pulmonary disease Chronic osteomyelitis of left foot Chronic venous insufficiency Depression Diastolic congestive heart failure E coli bacteremia Gastroesophageal reflux disease Hyperlipidemia Hypertension Hypothyroidism Insulin dependent diabetes mellitus Kidney stones Morbid obesity Obstructive sleep apnea Non-compliant with CPAP. Paroxysmal atrial fibrillation Peripheral neuropathy Surgical History Surgical History History of abdominal surgery The patient has a large scar in the right lower abdomen just above the right groin and on palpation of his abdomen he has what feels like mesh that extends from side to side and has a course rough texture it also extends from just under the umbilicus to a couple of inches above the pubis History of appendectomy History of back surgery History of cataract extraction History of hemorrhoidectomy History of tonsillectomy and adenoidectomy Family History Family History Sibling Family history of heart disease in male family member before age 55 Family history of diabetes mellitus in first degree relative Patient's brother is Family history of obesity Hypertension Mother Family history of arthritis Patient's mother is Father Patient's father is Social History Social History Social History: Surrogate medical decision maker: Marlys Marrero, . Code status: Full code. Smoking packs per day: 1.5 Smoking cigarettes per day: 30.0 Years smoked: 15 Smoking pack-years: 22.50 Smoking status: Former smoker Tobacco type: cigarettes Second hand tobacco smoke exposure: Yes Alcohol intake: never Substance use: never Substance use type: unknown Lack of Transportation: No Lack of Food: Never True Current Housing: I Have Housing Concerned About Future Housing: No Difficulty Paying Gas/Electric Bills: No Difficulty Paying for Meds: No Currently Unemployed: No Education: High School Diploma/GED Difficulty w/ Childcare or Family Care: No Living arrangements: prison Additional living arrangements comments: Resident at [facility]. to Marlys. They have 2 sons. He is nonambulatory and depends on a [place] lift for transfer. 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 Spiritual care concerns: No Agree to blood products: Yes Anes - Eval Final PreProcedure Day of Procedure 12/23/23 16:18 Anesthetic plan: delay Results Review: All pre-operative results and documents have been reviewed as part of the pre- operative evaluation. Discussed w pt and Dr Farias. Pt is still confused and appears to be recovering from his septicemia, procedure from yest in which he had Afib/RVR and prolonged recovery in the PACU. Pt stable w nml Hgb and no need for EGD urgently. Will delay until he is clinically improved, if procedure is necessary at all. Informed Consent: The patient's anesthetic plan and its attendant risks and benefits were disc ussed with the patient/family/POA. Questions were solicited and answers provided to the satisfaction of the patient/family/POA.
[2023-12-23 16:20] LABS: Glucose Point of Care 199 mg/dl (65-105)
[2023-12-23] MEDS: METOPROLOL SUCCINATE EXT REL 25 MG TABCR 75 MG PO (16:38)
[2023-12-23] MEDS: GABAPENTIN 100 MG CAPSULE PO (16:38)
[2023-12-23] MEDS: HYDROcodone/acetaminophen (*CRX) 5-325 MG TABLET 1 TAB PO (16:38)
[2023-12-23] MEDS: VALSARTAN 20 MG TABLET PO (16:39)
[2023-12-23] MEDS: SENNA/DOCUSATE SODIUM TABLET 1 TAB PO (16:39)
[2023-12-23] MEDS: SUCRALFATE SUSP 100 MG/ML 10 ML UDC 1000 MG PO ×2 (16:42→20:43)
[2023-12-23] MEDS: INSULIN HUMAN ISOPHAN/REGULAR 70/30 (*BKC) 100 UNITS/ML 15 UNITS SUB-Q (16:49)
[2023-12-23 19:55] LABS: Glucose Point of Care 209 mg/dl (65-105)
[2023-12-23] MEDS: PRAVASTATIN SODIUM 20 MG TABLET 40 MG PO (20:42)
[2023-12-23] MEDS: MELATONIN 5 MG TABLET PO (20:42)
[2023-12-23] MEDS: INSULIN ASPART (*BKC) 100 UNITS/ML SUB-Q (20:43)
[2023-12-24] VITALS (16 sets, daily range): BP systolic 142–168; BP diastolic 70–100; PULSE 60–89; RESP 18–20; TEMP 36.8–37.4; O2SAT 95–98
[2023-12-24 05:07] LABS: Basophils Percent Auto 0.6 % (0.2-1.2); Eosinophils Absolute Auto 0.3 K/mm3 (0-0.3); Eosinophils Percent Auto 3.5 % (0-4.4); Hemoglobin 12.1 g/dL (14.0-18.0); Immature Granulocyte Absolute 0.05 K/mm3 (0.00-0.031); Immature Granulocyte Percent A 0.7 % (0-0.5); Lymphocytes Absolute Auto 0.86 K/mm3 (0.9-3.2); Mean Corpuscular HGB Conc 29.5 g/dl (32-36); Mean Corpuscular Hemoglobin 25.1 pg (26-34); Mean Corpuscular Volume 84.9 fl (80-100); Mean Platelet Volume 9.8 fl (7.4-10.4); Monocytes Absolute Auto 0.8 K/mm3 (0.1-0.6); Monocytes Percent Auto 11.6 % (2.6-8.5); Neutrophils Absolute Auto 5.1 K/mm3 (1.3-6.7); Neutrophils Percent Auto 71.6 % (45.5-73.1); Platelet Count Result 268 k/mm3 (150-375); Red Blood Count 4.83 M/mm3 (4.6-6.20); White Blood Count 7.2 K/mm3 (4.5-10.0)
[2023-12-24] MEDS: MEROPENEM 1 GM/NS 100 ML 1 GM/100 ML BAG IVPB ×3 (05:25→21:24)
[2023-12-24 05:28] LABS: Albumin Level 2.6 g/dL (3.5-5.1); Anion Gap 1 mmol/L (4-12); Blood Urea Nitrogen 27 mg/dL (9-20); Carbon Dioxide 31 mmol/L (22-30); Chloride 100 mmol/L (98-107); Estimated CRCL calculation 87 ml/min; Estimated Glomerular Filt Rate > 60; Glucose 129 mg/dL (65-110); Magnesium 1.8 mg/dL (1.6-2.3); Potassium 3.3 mmol/L (3.4-5.0); Sodium 132 mmol/L (137-145)
[2023-12-24 05:38] LABS: Platelet Estimate Adequate (Adequate)
[2023-12-24 05:39] LABS: Hypochromasia 1+; Schistocytes None Seen
[2023-12-24] MEDS: LEVOTHYROXINE SODIUM 100 MCG TABLET PO (06:05)
[2023-12-24] MEDS: SUCRALFATE SUSP 100 MG/ML 10 ML UDC 1000 MG PO ×4 (06:05→21:25)
[2023-12-24 07:50] LABS: Glucose Point of Care 124 mg/dl (65-105)
[2023-12-24] MEDS: POTASSIUM CHLORIDE 20 MEQ PACKET (FOR LIQUID) 40 MEQ PO (09:04)
[2023-12-24] MEDS: POTASSIUM/PHOSPHORUS/SODIUM 1.5 GM PACKET 1 PACKET PO (09:04)
[2023-12-24] MEDS: MICONAZOLE NITRATE 2% CREAM 30 GM TUBE 1 APPLIC TOPICAL ×2 (09:07→16:50)
[2023-12-24] MEDS: PANTOPRAZOLE SODIUM IV 40 MG VIAL IV PUSH ×2 (09:07→21:25)
[2023-12-24] MEDS: METOPROLOL SUCCINATE EXT REL 25 MG TABCR 75 MG PO (09:07)
[2023-12-24] MEDS: buPROPion HCL XL (24 HR) 150 MG TABCR PO (09:08)
[2023-12-24] MEDS: HYDROcodone/acetaminophen (*CRX) 5-325 MG TABLET 1 TAB PO ×2 (09:08→16:40)
[2023-12-24] MEDS: VALSARTAN 20 MG TABLET PO (09:08)
[2023-12-24] MEDS: GABAPENTIN 100 MG CAPSULE PO ×2 (09:08→16:40)
[2023-12-24] MEDS: THERAPEUTIC MULTIVITAMINS/MINERALS TAB (*BKC) 1 TABLET PO (09:08)
[2023-12-24] MEDS: INSULIN HUMAN ISOPHAN/REGULAR 70/30 (*BKC) 100 UNITS/ML 25 UNITS SUB-Q (09:09)
[2023-12-24] MEDS: SENNA/DOCUSATE SODIUM TABLET 1 TAB PO ×2 (09:09→16:40)
[2023-12-24] MEDS: polyethylene glycoL 3350 17 GM POWD.PACK PO ×2 (09:10→16:39)
[2023-12-24 11:37] LABS: Glucose Point of Care 152 mg/dl (65-105)
--- NOTE | 2023-12-24 11:59 | PCPTNOTE ---
Care coordination reports pt is dependent at baseline (melissa lift). Hospitalist present for conversation and OK discharge of physical therapy orders at this time.
[2023-12-24] MEDS: ACETAMINOPHEN 325 MG TABLET 650 MG PO (12:01)
--- NOTE | 2023-12-24 13:55 | P.PNGI_ITS ---
Progress Note: A&P Assessment and Plan (1) Hematemesis: Qualifiers: Nausea presence: unspecified Qualified Code(s): K92.0 - Hematemesis Code(s): K92.0 - Hematemesis Status: Acute Assessment and Plan: h/h 12, no more episode of bleeding or emesis ct showed esophagitis prefer conservative management, if more bleeding or drop h/h then will do egd continue treatment iv protonix and carafate he is eating (2) Sepsis: Code(s): A41.9 - Sepsis, unspecified organism Status: Acute Assessment and Plan: e coli bacteremia source is urological s/p intervention (3) Esophagitis: Code(s): K20.90 - Esophagitis, unspecified without bleeding Status: Acute Assessment and Plan: iv protonix antiemetics prn he was too sick to undergo anesthesia on admission (4) E coli bacteremia: Code(s): R78.81 - Bacteremia; B96.20 - Unspecified Escherichia coli [E. coli] as the cause of diseases classified elsewhere Status: Acute Assessment and Plan: on abx (5) Hydroureteronephrosis: Code(s): N13.30 - Unspecified hydronephrosis Status: Acute (6) Right ureteral stone: Code(s): N20.1 - Calculus of ureter Status: Acute Assessment and Plan: by urology (7) Atrial fibrillation: Code(s): I48.91 - Unspecified atrial fibrillation Status: Acute Subjective Date/time seen: 12/24/23 13:55 Interval history: he is more awake and alert no more report of emesis or gib Review of Systems Review of Systems: All systems reviewed & are unremarkable except as noted in HPI and below Exam Const: Other: awake and alert but confused HENMT: Face/Nose/Sinus: Normal nares present Eyes: General: appearance normal, both eyes and all related structures Neck: Neck: supple Resp: Effort & Inspection: normal respiratory effort Cardio: Rhythm: abnormal rhythm irregularly irregular GI: GI Palp: Yes Soft to palpation and No Tenderness to palpation present (GI) Auscultation: normal bowel sounds Skin: General skin exam: normal color Neuro: Other: awake and alert, confused Extrem: General: normal to inspection Objective Data Vital Signs Vital Signs: Vital Signs - 24 hr 12/23/23 16:00 12/23/23 16:38 12/23/23 18:00 Temperature 97.3 F L Pulse Rate 85 89 82 Respiratory Rate 20 Blood Pressure 188/106 H Pulse Oximetry 99 Oxygen Delivery 12/23/23 16:00 12/23/23 20:19 12/23/23 20:00 Temperature 98.5 F Pulse Rate 90 Respiratory Rate 20 Blood Pressure 152/86 H Pulse Oximetry 96 Oxygen Delivery Room Air Room Air 12/23/23 20:00 12/23/23 23:57 12/24/23 00:14 Temperature 98.6 F Pulse Rate 89 85 Respiratory Rate 20 Blood Pressure 168/75 H Pulse Oximetry 96 Oxygen Delivery Room Air 12/24/23 00:00 12/24/23 03:44 12/24/23 04:00 Temperature 98.4 F Pulse Rate 89 82 Respiratory Rate 20 Blood Pressure 142/94 H Pulse Oximetry 96 Oxygen Delivery Room Air 12/24/23 04:00 12/24/23 08:02 12/24/23 09:07 Temperature 98.2 F Pulse Rate 81 84 71 Respiratory Rate 18 Blood Pressure 145/70 H Pulse Oximetry 95 Oxygen Delivery 12/24/23 08:00 12/24/23 08:00 12/24/23 11:18 Temperature 98.3 F Pulse Rate 62 76 Respiratory Rate 20 Blood Pressure 153/83 H Pulse Oximetry 97 Oxygen Delivery Room Air 12/24/23 10:00 12/24/23 12:00 12/24/23 12:00 Temperature Pulse Rate 78 76 76 Respiratory Rate 20 Blood Pressure Pulse Oximetry 97 Oxygen Delivery Room Air Intake/Output Intake/Output: Intake & Output 12/21/23 12/22/23 12/23/23 12/24/23 23:59 23:59 23:59 23:59 Intake Total 160 1500 2040 1340 Output Total 1300 925 750 750 Balance -0153 185 9579 590 Meds/Results Medications: Active Medications Generic Name Dose Route Start Last Admin Trade Name Freq PRN Reason Stop Dose Admin Acetaminophen 650 mg 12/21/23 17:59 12/24/23 12:01 Acetaminophen 325 Mg Tablet PO 650 mg Q4-6H PRN Administration Pain (Scale Score 1-3) Hydrocodone Bitart/Acetaminophen 1 tab 12/21/23 17:59 12/24/23 09:08 Hydrocodone/Acetaminophen (*Crx) 5-325 Mg Tablet PO 1 tab Q8H PRN Administration Pain (Scale Score 4-6) Albuterol/Ipratropium 3 ml 12/21/23 17:59 Ipratropium 0.5 Mg/Albuterol Sulfate 2.5 Mg Ampul.Neb 3 Ml INHALATION Q4H PRN Wheezing Bupropion HCl 150 mg 12/22/23 09:00 12/24/23 09:08 Bupropion Hcl Xl (24 Hr) 150 Mg Tabcr PO 150 mg QAM HERMILO Administration Dextrose 12.5 gm 12/21/23 18:00 Dextrose 50% 25 Gm/50 Ml Syringe IV PUSH PRN PRN Hypoglycemia Protocol Gabapentin 100 mg 12/21/23 18:10 12/24/23 09:08 Gabapentin 100 Mg Capsule PO 100 mg BID HERMILO Administration Glucagon 1 mg 12/21/23 18:00 Glucagon For Inj 1 Mg Vial IM PRN PRN Hypoglycemia Protocol Glucose 15 gm 12/21/23 18:00 Glucose Oral Gel 15 Gm Of Glucse In 37.5 Gm Tube PO PRN PRN Hypoglycemia Protocol Meropenem 1 gm in 100 mls @ 200 mls/hr 12/21/23 20:00 12/24/23 06:06 IVPB Infused Q8H HERMILO Infusion Dextrose 1,000 mls @ 100 mls/hr 12/21/23 18:00 Dextrose 5% 1,000 Ml IVPB PRN PRN Hypoglycemia Protocol Insulin Aspart 4 - 8 units 12/22/23 08:00 12/24/23 11:45 Insulin Aspart (*Bkc) 100 Units/Ml SUB-Q Not Given TIDWM HERMILO Protocol Insulin Aspart 2 - 4 units 12/21/23 21:00 12/23/23 20:43 Insulin Aspart (*Bkc) 100 Units/Ml SUB-Q 2 units HS HERMILO Administration Protocol Insulin Human Isoph/Insulin Regular 25 units 12/22/23 09:00 12/24/23 09:09 Insulin Human Isophan/Regular 70/30 (*Bkc) 100 Units/Ml SUB-Q 12 units QAM HERMILO Administration Insulin Human Isoph/Insulin Regular 15 units 12/23/23 17:00 12/23/23 16:49 Insulin Human Isophan/Regular 70/30 (*Bkc) 100 Units/Ml SUB-Q 15 units DAILY@1700 HERMILO Administration Levothyroxine Sodium 100 mcg 12/22/23 06:30 12/24/23 06:05 Levothyroxine Sodium 100 Mcg Tablet PO 100 mcg DAILY@0630 HERMILO Administration Magnesium Oxide 400 mg 12/22/23 12:00 12/23/23 12:13 Magnesium Oxide 400 Mg Tablet PO Not Given 1200 [facility] Melatonin 5 mg 12/21/23 21:00 12/23/23 20:42 Melatonin 5 Mg Tablet PO 5 mg HS HERMILO Administration Metoprolol Succinate 75 mg 12/22/23 09:00 12/24/23 09:07 Metoprolol Succinate Ext Rel 25 Mg Tabcr PO 75 mg QAM HERMILO Administration Miconazole Nitrate 1 applic 12/21/23 18:15 12/24/23 09:07 Miconazole Nitrate 2% Cream 30 Gm Tube TOPICAL 1 applic BID HERMILO Administration Multivitamins/Calcium 1 tablet 12/22/23 09:00 12/24/23 09:08 Therapeutic Multivitamins/Minerals Tab (*Bkc) PO 1 tablet DAILY HERMILO Administration Ondansetron HCl 4 mg 12/21/23 13:44 Ondansetron Inj 4 Mg/2 Ml Vial IV PUSH Q4H PRN Nausea Pantoprazole Sodium 40 mg 12/21/23 21:00 12/24/23 09:07 Pantoprazole Sodium Iv 40 Mg Vial IV PUSH 40 mg Q12HR HERMILO Administration Polyethylene Glycol 17 gm 12/21/23 18:15 12/24/23 09:10 Polyethylene Glycol 3350 17 Gm Powd.Pack PO 17 gm BID HERMILO Administration Pravastatin Sodium 40 mg 12/21/23 21:00 12/23/23 20:42 Pravastatin Sodium 20 Mg Tablet PO 40 mg HS HERMILO Administration Senna/Docusate Sodium 1 tab 12/21/23 18:15 12/24/23 09:09 Senna/Docusate Sodium Tablet PO 1 tab BID HERMILO Administration Sucralfate 1,000 mg 12/23/23 16:30 12/24/23 12:01 Sucralfate Susp 100 Mg/Ml 10 Ml Udc PO 1,000 mg ACHS [facility] Administration Valsartan 20 mg 12/22/23 09:00 12/24/23 09:08 Valsartan 20 Mg Tablet PO 20 mg DAILY HERMILO Administration Radiology Results: ITS Impressions Head CT 12/21/23 12:00 IMPRESSION: No acute intracranial findings. Chest/Abdomen/Pelvis CT 12/21/23 12:17 Impression: Findings compatible with extensive esophagitis. Correlate clinically. Multiple large right renal stones as well as 8 mm right mid ureteral stone. Moderate bilateral hydroureteronephrosis. Air in the right ureter. This could be iatrogenic versus pyelitis. Correlate clinically. Possible cystitis. Correlate with urinalysis. Cholelithiasis. Retrograde Pyelogram 12/22/23 13:31 IMPRESSION: 1. Moderate right hydronephrosis and hydroureter with right internal ureteral stent in expected position. 2. Mild left hydronephrosis and hydroureter with left internal ureteral stent in expected position. Labs Labs: Laboratory Results - last 24 hr 12/23/23 12/23/23 12/23/23 13:53 16:06 19:47 WBC RBC Hgb Hct MCV MCH MCHC RDW Plt Count MPV Immature Gran % (Auto) Neut % (Auto) Lymph % (Auto) [place] % (Auto) Eos % (Auto) Baso % (Auto) Lymph # (Auto) [place] # (Auto) Eos # (Auto) Baso # (Auto) Abs Immat Gran (auto) Absolute Neuts (auto) Absolute Nucleated RBC Nucleated RBC % Platelet Estimate Hypochromasia Schistocytes Sodium Potassium Chloride Carbon Dioxide Anion Gap BUN Creatinine Estim Creat Clear Calc Estimated GFR Glucose POC Capillary Glucose 179 H 199 H 209 H Calcium Phosphorus Magnesium Albumin 12/24/23 12/24/23 12/24/23 04:47 07:47 10:57 WBC 7.2 RBC 4.83 Hgb 12.1 L Hct 41.0 L MCV 84.9 MCH 25.1 L MCHC 29.5 L RDW 16.0 H Plt Count 268 MPV 9.8 Immature Gran % (Auto) 0.7 H Neut % (Auto) 71.6 Lymph % (Auto) 12.0 L [place] % (Auto) 11.6 H Eos % (Auto) 3.5 Baso % (Auto) 0.6 Lymph # (Auto) 0.86 L [place] # (Auto) 0.8 H Eos # (Auto) 0.3 Baso # (Auto) 0.0 Abs Immat Gran (auto) 0.05 H Absolute Neuts (auto) 5.1 Absolute Nucleated RBC 0.000 Nucleated RBC % 0.0 Platelet Estimate Adequate Hypochromasia 1+ Schistocytes None seen Sodium 132 L Potassium 3.3 L Chloride 100 Carbon Dioxide 31 H Anion Gap 1 L BUN 27 H Creatinine 1.00 Estim Creat Clear Calc 87 Estimated GFR > 60 Glucose 129 H POC Capillary Glucose 124 H 152 H Calcium 9.0 Phosphorus 2.0 L Magnesium 1.8 Albumin 2.6 L
[2023-12-24] MEDS: MAGNESIUM OXIDE 400 MG TABLET PO (15:03)
[2023-12-24 16:36] LABS: Glucose Point of Care 212 mg/dl (65-105)
[2023-12-24] MEDS: INSULIN HUMAN ISOPHAN/REGULAR 70/30 (*BKC) 100 UNITS/ML 15 UNITS SUB-Q (16:39)
[2023-12-24] MEDS: INSULIN ASPART (*BKC) 100 UNITS/ML SUB-Q (16:40)
--- NOTE | 2023-12-24 17:17 | PM.IMPN ---
Progress Note: A&P Assessment and Plan (1) E coli bacteremia: Code(s): R78.81 - Bacteremia; B96.20 - Unspecified Escherichia coli [E. coli] as the cause of diseases classified elsewhere Status: Acute Assessment and Plan: WBC count 19.2 but no other evidence of sepsis picture. AMS on admission as somnolent. Narcan given but no benefit. CT head showing no acute process. UA consistent with UTI. UCx and BCx collected and abx started. Ceftriaxone 1gm given CT of the abdomen and pelvis showed extensive esophagitis, multiple large right renal stones as well as an 8 mm right mid ureteral stone with moderate bilateral hydroureteronephrosis, air in the right ureter, and cholelithiasis. Urology, was consulted and patient underwent cystoscopy, bilateral retrogrades, bilateral ureteral stent placement 6 [place] contour stents and Coats catheter placement on 12/21. Complicated UTI in the setting of chronic indwelling Coats catheter. BCx returned positive and he was changed to meropenem UCx negative. BCx growing ESBL EColi and Pseudomonas. Suspect urinary source despite negative UCx but consider from heel. Continue meropenem until cultures are known. (2) Hematemesis: Qualifiers: Nausea presence: unspecified Qualified Code(s): K92.0 - Hematemesis Code(s): K92.0 - Hematemesis Status: Acute Assessment and Plan: Patient here for coffee ground emesis. Hgb 15.4. CT of the abdomen and pelvis showed findings compatible with extensive esophagitis. PPI IV Q12H ordered. GI consulted for EGD. Hgb dropped to 12 range but remaining stable EGD held due to concern for AFib/RVR. EGD is indefinitely on hold. Continue PPI. Monitor HH. Will discuss with GI about when to resume Eliquis. (3) Esophagitis: Code(s): K20.90 - Esophagitis, unspecified without bleeding Status: Acute Assessment and Plan: As above. Patient is being treated for esophagitis. (4) Right ureteral stone: Code(s): N20.1 - Calculus of ureter Status: Acute Assessment and Plan: As above (5) Hydroureteronephrosis: Code(s): N13.30 - Unspecified hydronephrosis Status: Acute Assessment and Plan: As above. (6) Non healing left heel wound: Code(s): S91.302A - Unspecified open wound, left foot, initial encounter Status: Acute Assessment and Plan: Routine wound care. (7) Chronic hyponatremia: Code(s): E87.1 - Hypo-osmolality and hyponatremia Status: Acute Assessment and Plan: Na 129 on admisison but climbed slowly to 132. Follow (8) Insulin dependent diabetes mellitus: Status: Chronic Assessment and Plan: A1c 8.7%. The patient's blood glucose was reviewed on 12/23 Glucose remains reasonably well controlled. Diabetic diet Continue AccuCheks covering with sliding scale. Hypoglycemia protocol available as needed. Continue to follow (9) Chronic anticoagulation: Code(s): Z79.01 - alf (current) use of anticoagulants Status: Chronic Assessment and Plan: On Eliquis prior to admission and currently on hold due to the hemetemesis. Follow. Resume when felt safe to do so. (10) Hypertension: Code(s): I10 - Essential (primary) hypertension Status: Chronic Assessment and Plan: Patient's blood pressure was reviewed on 12/23 Blood pressure with wide fluctuations. Will continue current medications and monitor Continue Valsartan and Toprol XL. Lisinopril stopped since was already on Valsartan. (11) Hypothyroidism: Code(s): E03.9 - Hypothyroidism, unspecified Status: Chronic Assessment and Plan: TSH normal in September. Continue levothyroxine Plan DVT prophylaxis SCD Code status full code care home resident Subjective Date/time seen: 12/24/23 17:17 Interval history: 67yo male with dementia, pAFib, diastolic CHF, insulin-dependent DM, hypothyroidism, HTN, untreated JUN, chronic venous stasis dermatitis, indwelling Coats catheter, kidney stones, chronic left heel wound with history of osteomyelitis of the left calcaneus with previous cultures growing out Pseudomonas and MRSA, and other comorbidities who presented to the emergency department via EMS from [facility] with reports of coffee ground emesis. Patient is alert but confused so hx is unreliable. No n/v but staff has noticed decreased oral intake. Review of Systems Review of Systems: ROS unobtainable: Yes unobtainable due to mental status Exam Narrative: AF 98.7 156/89 75 20 97% ra Gen - NARD Chest - bibasilar crackles. nml RR CV - irregularly irergular. Tele showing AFib with controlled rate. Abd - Soft, NT/ND, Positive BS, abd mass upper abd consistent with mesh Ext - traceo pedal edema. 2+ DP bilaterally Neuro - Alert but confused. Psych - Nml mood and affect Skin - Warm and dry. Left heel dressing in place. Objective Data Vital Signs Vital Signs: Vital Signs - 24 hr 12/23/23 18:00 12/23/23 20:19 12/23/23 20:00 Temperature 98.5 F Pulse Rate 82 90 Respiratory Rate 20 Blood Pressure 152/86 H Pulse Oximetry 96 Oxygen Delivery Room Air 12/23/23 20:00 12/23/23 23:57 12/24/23 00:14 Temperature 98.6 F Pulse Rate 89 85 Respiratory Rate 20 Blood Pressure 168/75 H Pulse Oximetry 96 Oxygen Delivery Room Air 12/24/23 00:00 12/24/23 03:44 12/24/23 04:00 Temperature 98.4 F Pulse Rate 89 82 Respiratory Rate 20 Blood Pressure 142/94 H Pulse Oximetry 96 Oxygen Delivery Room Air 12/24/23 04:00 12/24/23 08:02 12/24/23 09:07 Temperature 98.2 F Pulse Rate 81 84 71 Respiratory Rate 18 Blood Pressure 145/70 H Pulse Oximetry 95 Oxygen Delivery 12/24/23 08:00 12/24/23 08:00 12/24/23 11:18 Temperature 98.3 F Pulse Rate 62 76 Respiratory Rate 20 Blood Pressure 153/83 H Pulse Oximetry 97 Oxygen Delivery Room Air 12/24/23 10:00 12/24/23 12:00 12/24/23 12:00 Temperature Pulse Rate 78 76 76 Respiratory Rate 20 Blood Pressure Pulse Oximetry 97 Oxygen Delivery Room Air 12/24/23 15:48 Temperature 98.7 F Pulse Rate 75 Respiratory Rate 20 Blood Pressure 156/89 H Pulse Oximetry 97 Oxygen Delivery Intake/Output Intake/Output: Intake & Output 12/21/23 12/22/23 12/23/23 12/24/23 23:59 23:59 23:59 23:59 Intake Total 160 1500 2040 1440 Output Total 1300 756 163 2946 Balance -9718 535 4808 -660 Meds/Results Medications: Active Medications Generic Name Dose Route Start Last Admin Trade Name Freq PRN Reason Stop Dose Admin Acetaminophen 650 mg 12/21/23 17:59 12/24/23 12:01 Acetaminophen 325 Mg Tablet PO 650 mg Q4-6H PRN Administration Pain (Scale Score 1-3) Hydrocodone Bitart/Acetaminophen 1 tab 12/21/23 17:59 12/24/23 16:40 Hydrocodone/Acetaminophen (*Crx) 5-325 Mg Tablet PO 1 tab Q8H PRN Administration Pain (Scale Score 4-6) Albuterol/Ipratropium 3 ml 12/21/23 17:59 Ipratropium 0.5 Mg/Albuterol Sulfate 2.5 Mg Ampul.Neb 3 Ml INHALATION Q4H PRN Wheezing Bupropion HCl 150 mg 12/22/23 09:00 12/24/23 09:08 Bupropion Hcl Xl (24 Hr) 150 Mg Tabcr PO 150 mg QAM HERMILO Administration Dextrose 12.5 gm 12/21/23 18:00 Dextrose 50% 25 Gm/50 Ml Syringe IV PUSH PRN PRN Hypoglycemia Protocol Gabapentin 100 mg 12/21/23 18:10 12/24/23 16:40 Gabapentin 100 Mg Capsule PO 100 mg BID HERMILO Administration Glucagon 1 mg 12/21/23 18:00 Glucagon For Inj 1 Mg Vial IM PRN PRN Hypoglycemia Protocol Glucose 15 gm 12/21/23 18:00 Glucose Oral Gel 15 Gm Of Glucse In 37.5 Gm Tube PO PRN PRN Hypoglycemia Protocol Meropenem 1 gm in 100 mls @ 200 mls/hr 12/21/23 20:00 12/24/23 14:00 IVPB Infused Q8H HERMILO Infusion Dextrose 1,000 mls @ 100 mls/hr 12/21/23 18:00 Dextrose 5% 1,000 Ml IVPB PRN PRN Hypoglycemia Protocol Insulin Aspart 4 - 8 units 12/22/23 08:00 12/24/23 16:40 Insulin Aspart (*Bkc) 100 Units/Ml SUB-Q 4 units TIDWM HERMILO Administration Protocol Insulin Aspart 2 - 4 units 12/21/23 21:00 12/23/23 20:43 Insulin Aspart (*Bkc) 100 Units/Ml SUB-Q 2 units HS HERMILO Administration Protocol Insulin Human Isoph/Insulin Regular 25 units 12/22/23 09:00 12/24/23 09:09 Insulin Human Isophan/Regular 70/30 (*Bkc) 100 Units/Ml SUB-Q 12 units QAM HERMILO Administration Insulin Human Isoph/Insulin Regular 15 units 12/23/23 17:00 12/24/23 16:39 Insulin Human Isophan/Regular 70/30 (*Bkc) 100 Units/Ml SUB-Q 15 units DAILY@1700 HERMILO Administration Levothyroxine Sodium 100 mcg 12/22/23 06:30 12/24/23 06:05 Levothyroxine Sodium 100 Mcg Tablet PO 100 mcg DAILY@0630 HERMILO Administration Magnesium Oxide 400 mg 12/22/23 12:00 12/24/23 15:03 Magnesium Oxide 400 Mg Tablet PO 400 mg 1200 HERMILO Administration Melatonin 5 mg 12/21/23 21:00 12/23/23 20:42 Melatonin 5 Mg Tablet PO 5 mg HS HERMILO Administration Metoprolol Succinate 75 mg 12/22/23 09:00 12/24/23 09:07 Metoprolol Succinate Ext Rel 25 Mg Tabcr PO 75 mg QAM HERMILO Administration Miconazole Nitrate 1 applic 12/21/23 18:15 12/24/23 16:50 Miconazole Nitrate 2% Cream 30 Gm Tube TOPICAL 1 applic BID HERMILO Administration Multivitamins/Calcium 1 tablet 12/22/23 09:00 12/24/23 09:08 Therapeutic Multivitamins/Minerals Tab (*Bkc) PO 1 tablet DAILY HERMILO Administration Ondansetron HCl 4 mg 12/21/23 13:44 Ondansetron Inj 4 Mg/2 Ml Vial IV PUSH Q4H PRN Nausea Pantoprazole Sodium 40 mg 12/21/23 21:00 12/24/23 09:07 Pantoprazole Sodium Iv 40 Mg Vial IV PUSH 40 mg Q12HR HERMILO Administration Polyethylene Glycol 17 gm 12/21/23 18:15 12/24/23 16:39 Polyethylene Glycol 3350 17 Gm Powd.Pack PO 17 gm BID HERMILO Administration Pravastatin Sodium 40 mg 12/21/23 21:00 12/23/23 20:42 Pravastatin Sodium 20 Mg Tablet PO 40 mg HS HERMILO Administration Senna/Docusate Sodium 1 tab 12/21/23 18:15 12/24/23 16:40 Senna/Docusate Sodium Tablet PO 1 tab BID HERMILO Administration Sucralfate 1,000 mg 12/23/23 16:30 12/24/23 17:01 Sucralfate Susp 100 Mg/Ml 10 Ml Udc PO 1,000 mg ACHS HERMILO Administration Valsartan 20 mg 12/22/23 09:00 12/24/23 09:08 Valsartan 20 Mg Tablet PO 20 mg DAILY HERMILO Administration Radiology Results: ITS Impressions Head CT 12/21/23 12:00 IMPRESSION: No acute intracranial findings. Chest/Abdomen/Pelvis CT 12/21/23 12:17 Impression: Findings compatible with extensive esophagitis. Correlate clinically. Multiple large right renal stones as well as 8 mm right mid ureteral stone. Moderate bilateral hydroureteronephrosis. Air in the right ureter. This could be iatrogenic versus pyelitis. Correlate clinically. Possible cystitis. Correlate with urinalysis. Cholelithiasis. Retrograde Pyelogram 12/22/23 13:31 IMPRESSION: 1. Moderate right hydronephrosis and hydroureter with right internal ureteral stent in expected position. 2. Mild left hydronephrosis and hydroureter with left internal ureteral stent in expected position. Labs Labs: Laboratory Results - last 24 hr 12/23/23 12/24/23 12/24/23 19:47 04:47 07:47 WBC 7.2 RBC 4.83 Hgb 12.1 L Hct 41.0 L MCV 84.9 MCH 25.1 L MCHC 29.5 L RDW 16.0 H Plt Count 268 MPV 9.8 Immature Gran % (Auto) 0.7 H Neut % (Auto) 71.6 Lymph % (Auto) 12.0 L [place] % (Auto) 11.6 H Eos % (Auto) 3.5 Baso % (Auto) 0.6 Lymph # (Auto) 0.86 L [place] # (Auto) 0.8 H Eos # (Auto) 0.3 Baso # (Auto) 0.0 Abs Immat Gran (auto) 0.05 H Absolute Neuts (auto) 5.1 Absolute Nucleated RBC 0.000 Nucleated RBC % 0.0 Platelet Estimate Adequate Hypochromasia 1+ Schistocytes None seen Sodium 132 L Potassium 3.3 L Chloride 100 Carbon Dioxide 31 H Anion Gap 1 L BUN 27 H Creatinine 1.00 Estim Creat Clear Calc 87 Estimated GFR > 60 Glucose 129 H POC Capillary Glucose 209 H 124 H Calcium 9.0 Phosphorus 2.0 L Magnesium 1.8 Albumin 2.6 L 12/24/23 12/24/23 10:57 16:31 WBC RBC Hgb Hct MCV MCH MCHC RDW Plt Count MPV Immature Gran % (Auto) Neut % (Auto) Lymph % (Auto) [place] % (Auto) Eos % (Auto) Baso % (Auto) Lymph # (Auto) [place] # (Auto) Eos # (Auto) Baso # (Auto) Abs Immat Gran (auto) Absolute Neuts (auto) Absolute Nucleated RBC Nucleated RBC % Platelet Estimate Hypochromasia Schistocytes Sodium Potassium Chloride Carbon Dioxide Anion Gap BUN Creatinine Estim Creat Clear Calc Estimated GFR Glucose POC Capillary Glucose 152 H 212 H Calcium Phosphorus Magnesium Albumin
--- NOTE | 2023-12-24 18:27 | PC.NURSE ---
Pt downgraded to Med/Tele and given transfer orders for pt to go to room 344 on the 3rd floor. Evening meds given, pt's dinner eaten, wound dressings changed, and wound gel applied per wound/ostomy nurse recommendations. Pt's notified of pt's transfer. Report given to [facility] nurse [place].
--- NOTE | 2023-12-24 18:29 | PC.NURSE ---
Transfer received from IMU to room 344.
[2023-12-24] MEDS: PRAVASTATIN SODIUM 20 MG TABLET 40 MG PO (21:25)
[2023-12-24] MEDS: MELATONIN 5 MG TABLET PO (21:25)
[2023-12-24 22:24] LABS: Glucose Point of Care 158 mg/dl (65-105)
[2023-12-25] VITALS (10 sets, daily range): BP systolic 154–167; BP diastolic 82–98; PULSE 59–81; RESP 19–22; TEMP 36.2–36.6; O2SAT 97–100
[2023-12-25] MEDS: MEROPENEM 1 GM/NS 100 ML 1 GM/100 ML BAG IVPB ×3 (03:07→21:04)
[2023-12-25] MEDS: HYDROcodone/acetaminophen (*CRX) 5-325 MG TABLET 1 TAB PO ×2 (04:12→13:10)
[2023-12-25] MEDS: SUCRALFATE SUSP 100 MG/ML 10 ML UDC 1000 MG PO ×4 (05:40→21:06)
[2023-12-25] MEDS: LEVOTHYROXINE SODIUM 100 MCG TABLET PO (05:40)
[2023-12-25 05:58] LABS: Basophils Absolute Auto 0.1 K/mm3 (0.0-0.1); Basophils Percent Auto 0.8 % (0.2-1.2); Eosinophils Absolute Auto 0.5 K/mm3 (0-0.3); Eosinophils Percent Auto 6.3 % (0-4.4); Hematocrit 42.2 % (42.0-52.0); Hemoglobin 12.4 g/dL (14.0-18.0); Immature Granulocyte Percent A 1.3 % (0-0.5); Lymphocytes Absolute Auto 1.12 K/mm3 (0.9-3.2); Mean Corpuscular HGB Conc 29.4 g/dl (32-36); Mean Corpuscular Hemoglobin 24.9 pg (26-34); Mean Corpuscular Volume 84.7 fl (80-100); Mean Platelet Volume 9.5 fl (7.4-10.4); Monocytes Percent Auto 12.9 % (2.6-8.5); Neutrophils Absolute Auto 5.2 K/mm3 (1.3-6.7); Neutrophils Percent Auto 64.7 % (45.5-73.1); Platelet Count Result 278 k/mm3 (150-375); Red Blood Count 4.98 M/mm3 (4.6-6.20); Red Cell Distribution Width 15.6 % (11.5-14.5)
[2023-12-25 06:12] LABS: Alanine Aminotransferase 13 U/L (6-50); Albumin Level 2.6 g/dL (3.5-5.1); Alkaline Phosphatase 80 U/L (38-126); Anion Gap 3 mmol/L (4-12); Aspartate Amino Transferase 20 U/L (17-59); Bilirubin,Total 0.3 mg/dL (0.2-1.3); Blood Urea Nitrogen 20 mg/dL (9-20); Carbon Dioxide 31 mmol/L (22-30); Chloride 97 mmol/L (98-107); Estimated CRCL calculation 123 ml/min; Estimated Glomerular Filt Rate > 60; Glucose 122 mg/dL (65-110); Magnesium 1.7 mg/dL (1.6-2.3); Potassium 3.4 mmol/L (3.4-5.0); Sodium 131 mmol/L (137-145)
[2023-12-25 06:39] LABS: Hypochromasia 1+; Platelet Estimate Adequate (Adequate); Schistocytes None Seen
[2023-12-25] MEDS: MAGNESIUM SULF 2 GM/WATER 50ML 2 GM/50 ML BAG IVPB (08:06)
[2023-12-25 08:30] LABS: Glucose Point of Care 121 mg/dl (65-105)
[2023-12-25] MEDS: INSULIN HUMAN ISOPHAN/REGULAR 70/30 (*BKC) 100 UNITS/ML 25 UNITS SUB-Q (10:22)
[2023-12-25] MEDS: METOPROLOL SUCCINATE EXT REL 25 MG TABCR 75 MG PO (10:23)
[2023-12-25] MEDS: buPROPion HCL XL (24 HR) 150 MG TABCR PO (10:23)
[2023-12-25] MEDS: GABAPENTIN 100 MG CAPSULE PO ×2 (10:24→17:22)
[2023-12-25] MEDS: THERAPEUTIC MULTIVITAMINS/MINERALS TAB (*BKC) 1 TABLET PO (10:24)
[2023-12-25] MEDS: POTASSIUM CHLORIDE 20 MEQ PACKET (FOR LIQUID) 40 MEQ PO (10:24)
[2023-12-25] MEDS: PANTOPRAZOLE SODIUM IV 40 MG VIAL IV PUSH ×2 (10:24→21:06)
[2023-12-25] MEDS: SENNA/DOCUSATE SODIUM TABLET 1 TAB PO ×2 (10:24→17:22)
[2023-12-25] MEDS: POTASSIUM/PHOSPHORUS/SODIUM 1.5 GM PACKET 1 PACKET PO ×2 (10:25→12:27)
[2023-12-25] MEDS: polyethylene glycoL 3350 17 GM POWD.PACK PO (10:25)
[2023-12-25] MEDS: MICONAZOLE NITRATE 2% CREAM 30 GM TUBE 1 APPLIC TOPICAL ×2 (10:25→17:24)
--- NOTE | 2023-12-25 10:47 | PCNFU ---
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 Goal:Diet order PO intake 75% or greater of meals and supplements pt meeting goals, continue with same goals. Pt current nutrition is Diabetic consistent carb, Glucerna shakes BID. Nutrition recommendation: Add JAXON BID for wound healing Last recorded weight is 125.7 kg. 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 Recommend to add JAXON BID for wounds. Monitor for diet order, intake, labs, wt. Follow up in 7 days.
[2023-12-25] MEDS: MAGNESIUM OXIDE 400 MG TABLET PO (11:42)
[2023-12-25] MEDS: ACETAMINOPHEN 325 MG TABLET 650 MG PO ×2 (12:24→17:23)
[2023-12-25 12:36] LABS: Glucose Point of Care 172 mg/dl (65-105)
--- NOTE | 2023-12-25 13:37 | PM.IMPN ---
Progress Note: A&P Assessment and Plan (1) E coli bacteremia: Code(s): R78.81 - Bacteremia; B96.20 - Unspecified Escherichia coli [E. coli] as the cause of diseases classified elsewhere Status: Acute Assessment and Plan: WBC count 19.2 but no other evidence of sepsis picture. AMS on admission as somnolent. Narcan given but no benefit. CT head showing no acute process. UA consistent with UTI. UCx and BCx collected and abx started. Ceftriaxone 1gm given CT of the abdomen and pelvis showed extensive esophagitis, multiple large right renal stones as well as an 8 mm right mid ureteral stone with moderate bilateral hydroureteronephrosis, air in the right ureter, and cholelithiasis. Urology, was consulted and patient underwent cystoscopy, bilateral retrogrades, bilateral ureteral stent placement 6 [place]ian contour stents and Coats catheter placement on 12/21. Complicated UTI in the setting of chronic indwelling Coats catheter BCx returned positive and he was changed to meropenem UCx negative. BCx growing ESBL EColi and Pseudomonas. Suspect urinary source despite negative UCx Repeat BCx NGTD. Continue meropenem until cultures are known. (2) Hematemesis: Qualifiers: Nausea presence: unspecified Qualified Code(s): K92.0 - Hematemesis Code(s): K92.0 - Hematemesis Status: Acute Assessment and Plan: Patient here for coffee ground emesis. Hgb 15.[address] of the abdomen and pelvis showed findings compatible with extensive esophagitis. PPI IV Q12H ordered. GI consulted for EGD. Hgb dropped to 12 range but remaining stable EGD held due to concern for AFib/RVR. EGD is indefinitely on hold. Carafate added. Continue PPI and Carafate. Monitor HH. Will discuss with GI about when to resume Eliquis. (3) Esophagitis: Code(s): K20.90 - Esophagitis, unspecified without bleeding Status: Acute Assessment and Plan: As above. Patient is being treated for esophagitis. (4) Right ureteral stone: Code(s): N20.1 - Calculus of ureter Status: Acute Assessment and Plan: As above (5) Hydroureteronephrosis: Code(s): N13.30 - Unspecified hydronephrosis Status: Acute Assessment and Plan: As above. (6) Non healing left heel wound: Code(s): S91.302A - Unspecified open wound, left foot, initial encounter Status: Acute Assessment and Plan: Routine wound care. (7) Chronic hyponatremia: Code(s): E87.1 - Hypo-osmolality and hyponatremia Status: Acute Assessment and Plan: Na 129 on admission and climbed slowly to 134 but has been trending down since. Follow (8) Insulin dependent diabetes mellitus: Status: Chronic Assessment and Plan: A1c 8.7%. The patient's blood glucose was reviewed on 12/24 Glucose remains reasonably well controlled. Diabetic diet Continue AccuCheks covering with sliding scale. Hypoglycemia protocol available as needed. 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 Follow. Resume when felt safe to do so. (10) Hypertension: Code(s): I10 - Essential (primary) hypertension Status: Chronic Assessment and Plan: Patient's blood pressure was reviewed on 12/24 Blood pressure mildly elevated with SBO 140-160 range Continue Valsartan and Toprol XL. Lisinopril stopped since was already on Valsartan. Will advance valsartan. (11) Hypothyroidism: Code(s): E03.9 - Hypothyroidism, unspecified Status: Chronic Assessment and Plan: TSH normal in September. Continue levothyroxine (12) Complicated urinary tract infection: Code(s): N39.0 - Urinary tract infection, site not specified Status: Acute Assessment and Plan: As above Chronic Coats has been changed out Plan DVT prophylaxis SCD Code status full code group home resident Subjective Date/time seen: 12/25/23 13:37 Interval history: 67yo male with dementia, pAFib, diastolic CHF, insulin-dependent DM, hypothyroidism, HTN, untreated JUN, chronic venous stasis dermatitis, indwelling Coats catheter, kidney stones, chronic left heel wound with history of osteomyelitis of the left calcaneus with previous cultures growing out Pseudomonas and MRSA, and other comorbidities who presented to the emergency department via EMS from [facility] with reports of coffee ground emesis. Patient is alert but confused so hx is unreliable. Eating better. No n/v. Review of Systems Review of Systems: ROS unobtainable: Yes unobtainable due to mental status Exam Narrative: AF 97.1 162/98 73 20 100% ra Gen - NARD Chest - bibasilar crackles. nml RR CV - irregularly irregular. Abd - Soft, NT/ND, Positive BS, abd mass upper abd consistent with mesh - Coats secured draining clear yellow urine Ext - trace pedal edema Neuro - Alert but confused. Psych - Nml mood and affect Skin - Warm and dry. Left heel dressing in place. Dried scaly patch right [place] Objective Data Vital Signs Vital Signs: Vital Signs - 24 hr 12/24/23 15:48 12/24/23 16:00 12/24/23 21:00 Temperature 98.7 F 99.3 F Pulse Rate 75 75 60 Respiratory Rate 20 18 Blood Pressure 156/89 H 165/100 H Pulse Oximetry 97 98 Oxygen Delivery 12/24/23 21:09 12/24/23 20:00 12/24/23 22:43 Temperature Pulse Rate 83 Respiratory Rate Blood Pressure 165/100 H Pulse Oximetry Oxygen Delivery Room Air 12/25/23 00:00 12/24/23 21:26 12/25/23 04:24 Temperature 97.1 F L Pulse Rate 64 59 L Respiratory Rate 20 Blood Pressure 162/98 H Pulse Oximetry 98 100 Oxygen Delivery Room Air 12/25/23 04:00 12/25/23 10:23 Temperature Pulse Rate 65 73 Respiratory Rate Blood Pressure Pulse Oximetry Oxygen Delivery Intake/Output Intake/Output: Intake & Output 12/22/23 12/23/23 12/24/23 12/25/23 23:59 23:59 23:59 23:59 Intake Total 1500 2040 1980 996 Output Total 915 272 0349 1700 Balance 575 5415 -120 -781 Meds/Results Medications: Active Medications Generic Name Dose Route Start Last Admin Trade Name Freq PRN Reason Stop Dose Admin Acetaminophen 650 mg 12/21/23 17:59 12/25/23 12:24 Acetaminophen 325 Mg Tablet PO 650 mg Q4-6H PRN Administration Pain (Scale Score 1-3) Hydrocodone Bitart/Acetaminophen 1 tab 12/21/23 17:59 12/25/23 13:10 Hydrocodone/Acetaminophen (*Crx) 5-325 Mg Tablet PO 1 tab Q8H PRN Administration Pain (Scale Score 4-6) Albuterol/Ipratropium 3 ml 12/21/23 17:59 Ipratropium 0.5 Mg/Albuterol Sulfate 2.5 Mg Ampul.Neb 3 Ml INHALATION Q4H PRN Wheezing Bupropion HCl 150 mg 12/22/23 09:00 12/25/23 10:23 Bupropion Hcl Xl (24 Hr) 150 Mg Tabcr PO 150 mg QAM HERMILO Administration Dextrose 12.5 gm 12/21/23 18:00 Dextrose 50% 25 Gm/50 Ml Syringe IV PUSH PRN PRN Hypoglycemia Protocol Gabapentin 100 mg 12/21/23 18:10 12/25/23 10:24 Gabapentin 100 Mg Capsule PO 100 mg BID HERMILO Administration Glucagon 1 mg 12/21/23 18:00 Glucagon For Inj 1 Mg Vial IM PRN PRN Hypoglycemia Protocol Glucose 15 gm 12/21/23 18:00 Glucose Oral Gel 15 Gm Of Glucse In 37.5 Gm Tube PO PRN PRN Hypoglycemia Protocol Meropenem 1 gm in 100 mls @ 200 mls/hr 12/21/23 20:00 12/25/23 12:26 IVPB 200 mls/hr Q8H HERMILO Administration Dextrose 1,000 mls @ 100 mls/hr 12/21/23 18:00 Dextrose 5% 1,000 Ml IVPB PRN PRN Hypoglycemia Protocol Insulin Aspart 4 - 8 units 12/22/23 08:00 12/25/23 12:43 Insulin Aspart (*Bkc) 100 Units/Ml SUB-Q Not Given TIDWM HERMILO Protocol Insulin Aspart 2 - 4 units 12/21/23 21:00 12/24/23 21:24 Insulin Aspart (*Bkc) 100 Units/Ml SUB-Q Not Given HS HERMILO Protocol Insulin Human Isoph/Insulin Regular 25 units 12/22/23 09:00 12/25/23 10:22 Insulin Human Isophan/Regular 70/30 (*Bkc) 100 Units/Ml SUB-Q 25 units QAM HERMILO Administration Insulin Human Isoph/Insulin Regular 15 units 12/23/23 17:00 12/24/23 16:39 Insulin Human Isophan/Regular 70/30 (*Bkc) 100 Units/Ml SUB-Q 15 units DAILY@1700 HERMILO Administration Levothyroxine Sodium 100 mcg 12/22/23 06:30 12/25/23 05:40 Levothyroxine Sodium 100 Mcg Tablet PO 100 mcg DAILY@0630 HERMILO Administration Magnesium Oxide 400 mg 12/22/23 12:00 12/25/23 11:42 Magnesium Oxide 400 Mg Tablet PO 400 mg 1200 HERMILO Administration Melatonin 5 mg 12/21/23 21:00 12/24/23 21:25 Melatonin 5 Mg Tablet PO 5 mg HS HERMILO Administration Metoprolol Succinate 75 mg 12/22/23 09:00 12/25/23 10:23 Metoprolol Succinate Ext Rel 25 Mg Tabcr PO 75 mg QAM HERMILO Administration Miconazole Nitrate 1 applic 12/21/23 18:15 12/25/23 10:25 Miconazole Nitrate 2% Cream 30 Gm Tube TOPICAL 1 applic BID HERMILO Administration Multivitamins/Calcium 1 tablet 12/22/23 09:00 12/25/23 10:24 Therapeutic Multivitamins/Minerals Tab (*Bkc) PO 1 tablet DAILY HERMILO Administration Ondansetron HCl 4 mg 12/21/23 13:44 Ondansetron Inj 4 Mg/2 Ml Vial IV PUSH Q4H PRN Nausea Pantoprazole Sodium 40 mg 12/21/23 21:00 12/25/23 10:24 Pantoprazole Sodium Iv 40 Mg Vial IV PUSH 40 mg Q12HR HERMILO Administration Polyethylene Glycol 17 gm 12/21/23 18:15 12/25/23 10:25 Polyethylene Glycol 3350 17 Gm Powd.Pack PO 17 gm BID HERMILO Administration Pravastatin Sodium 40 mg 12/21/23 21:00 12/24/23 21:25 Pravastatin Sodium 20 Mg Tablet PO 40 mg HS HERMILO Administration Senna/Docusate Sodium 1 tab 12/21/23 18:15 12/25/23 10:24 Senna/Docusate Sodium Tablet PO 1 tab BID HERMILO Administration Sucralfate 1,000 mg 12/23/23 16:30 12/25/23 11:41 Sucralfate Susp 100 Mg/Ml 10 Ml Udc PO 1,000 mg ACHS HERMILO Administration Valsartan 20 mg 12/22/23 09:00 12/24/23 09:08 Valsartan 20 Mg Tablet PO 20 mg DAILY HERMILO Administration Radiology Results: ITS Impressions Head CT 12/21/23 12:00 IMPRESSION: No acute intracranial findings. Chest/Abdomen/Pelvis CT 12/21/23 12:17 Impression: Findings compatible with extensive esophagitis. Correlate clinically. Multiple large right renal stones as well as 8 mm right mid ureteral stone. Moderate bilateral hydroureteronephrosis. Air in the right ureter. This could be iatrogenic versus pyelitis. Correlate clinically. Possible cystitis. Correlate with urinalysis. Cholelithiasis. Retrograde Pyelogram 12/22/23 13:31 IMPRESSION: 1. Moderate right hydronephrosis and hydroureter with right internal ureteral stent in expected position. 2. Mild left hydronephrosis and hydroureter with left internal ureteral stent in expected position. Labs Labs: Laboratory Results - last 24 hr 12/24/23 12/24/23 12/25/23 16:31 21:03 05:37 WBC 8.0 RBC 4.98 Hgb 12.4 L Hct 42.2 MCV 84.7 MCH 24.9 L MCHC 29.4 L RDW 15.6 H Plt Count 278 MPV 9.5 Immature Gran % (Auto) 1.3 H Neut % (Auto) 64.7 Lymph % (Auto) 14.0 L [place] % (Auto) 12.9 H Eos % (Auto) 6.3 H Baso % (Auto) 0.8 Lymph # (Auto) 1.12 [place] # (Auto) 1.0 H Eos # (Auto) 0.5 H Baso # (Auto) 0.1 Abs Immat Gran (auto) 0.10 H Absolute Neuts (auto) 5.2 Absolute Nucleated RBC 0.000 Nucleated RBC % 0.0 Platelet Estimate Adequate Hypochromasia 1+ Schistocytes None seen Sodium 131 L Potassium 3.4 Chloride 97 L Carbon Dioxide 31 H Anion Gap 3 L BUN 20 Creatinine 0.70 Estim Creat Clear Calc 123 Estimated GFR > 60 Glucose 122 H POC Capillary Glucose 212 H 158 H Calcium 9.0 Phosphorus 2.0 L Magnesium 1.7 Total Bilirubin 0.3 AST 20 ALT 13 Alkaline Phosphatase 80 Total Protein 7.0 Albumin 2.6 L 12/25/23 12/25/23 08:28 12:29 WBC RBC Hgb Hct MCV MCH MCHC RDW Plt Count MPV Immature Gran % (Auto) Neut % (Auto) Lymph % (Auto) [place] % (Auto) Eos % (Auto) Baso % (Auto) Lymph # (Auto) [place] # (Auto) Eos # (Auto) Baso # (Auto) Abs Immat Gran (auto) Absolute Neuts (auto) Absolute Nucleated RBC Nucleated RBC % Platelet Estimate Hypochromasia Schistocytes Sodium Potassium Chloride Carbon Dioxide Anion Gap BUN Creatinine Estim Creat Clear Calc Estimated GFR Glucose POC Capillary Glucose 121 H 172 H Calcium Phosphorus Magnesium Total Bilirubin AST ALT Alkaline Phosphatase Total Protein Albumin
[2023-12-25 16:53] LABS: Glucose Point of Care 173 mg/dl (65-105)
[2023-12-25] MEDS: INSULIN HUMAN ISOPHAN/REGULAR 70/30 (*BKC) 100 UNITS/ML 15 UNITS SUB-Q (17:27)
[2023-12-25 19:41] LABS: Glucose Point of Care 183 mg/dl (65-105)
[2023-12-25] MEDS: PRAVASTATIN SODIUM 20 MG TABLET 40 MG PO (21:05)
[2023-12-25] MEDS: MELATONIN 5 MG TABLET PO (21:06)
[2023-12-26] VITALS (10 sets, daily range): BP systolic 139–173; BP diastolic 83–91; PULSE 57–88; RESP 16–20; TEMP 36.4–36.6; O2SAT 95–98
[2023-12-26] MEDS: MEROPENEM 1 GM/NS 100 ML 1 GM/100 ML BAG IVPB ×2 (03:48→12:41)
[2023-12-26] MEDS: SUCRALFATE SUSP 100 MG/ML 10 ML UDC 1000 MG PO ×4 (05:31→21:15)
[2023-12-26] MEDS: LEVOTHYROXINE SODIUM 100 MCG TABLET PO (05:32)
[2023-12-26 05:44] LABS: Hematocrit 43.4 % (42.0-52.0); Mean Corpuscular Hemoglobin 24.9 pg (26-34); Mean Corpuscular Volume 83.1 fl (80-100); Mean Platelet Volume 9.4 fl (7.4-10.4); Platelet Count Result 303 k/mm3 (150-375); Red Blood Count 5.22 M/mm3 (4.6-6.20); Red Cell Distribution Width 15.4 % (11.5-14.5); White Blood Count 8.3 K/mm3 (4.5-10.0)
[2023-12-26 05:55] LABS: Albumin Level 2.9 g/dL (3.5-5.1); Anion Gap 6 mmol/L (4-12); Blood Urea Nitrogen 19 mg/dL (9-20); Calcium 8.9 mg/dL (8.4-10.2); Carbon Dioxide 30 mmol/L (22-30); Chloride 96 mmol/L (98-107); Estimated CRCL calculation 123 ml/min; Estimated Glomerular Filt Rate > 60; Glucose 88 mg/dL (65-110); Magnesium 1.8 mg/dL (1.6-2.3); Phosphorus 2.7 mg/dL (2.5-4.5); Potassium 3.7 mmol/L (3.4-5.0); Sodium 132 mmol/L (137-145)
[2023-12-26 08:47] LABS: Glucose Point of Care 100 mg/dl (65-105)
[2023-12-26] MEDS: VALSARTAN 40 MG TABLET PO (09:21)
[2023-12-26] MEDS: THERAPEUTIC MULTIVITAMINS/MINERALS TAB (*BKC) 1 TABLET PO (09:21)
[2023-12-26] MEDS: METOPROLOL SUCCINATE EXT REL 25 MG TABCR 75 MG PO (09:21)
[2023-12-26] MEDS: buPROPion HCL XL (24 HR) 150 MG TABCR PO (09:21)
[2023-12-26] MEDS: GABAPENTIN 100 MG CAPSULE PO ×2 (09:21→17:20)
[2023-12-26] MEDS: SENNA/DOCUSATE SODIUM TABLET 1 TAB PO ×2 (09:21→17:23)
[2023-12-26] MEDS: MICONAZOLE NITRATE 2% CREAM 30 GM TUBE 1 APPLIC TOPICAL ×2 (09:22→17:28)
[2023-12-26] MEDS: EUCERIN CREAM 120 GM JAR 1 APPLIC TOPICAL (09:22)
[2023-12-26] MEDS: PANTOPRAZOLE SODIUM IV 40 MG VIAL IV PUSH ×2 (09:22→21:16)
[2023-12-26] MEDS: INSULIN HUMAN ISOPHAN/REGULAR 70/30 (*BKC) 100 UNITS/ML 25 UNITS SUB-Q (09:23)
[2023-12-26] MEDS: polyethylene glycoL 3350 17 GM POWD.PACK PO ×2 (09:23→17:20)
[2023-12-26] MEDS: HYDROcodone/acetaminophen (*CRX) 5-325 MG TABLET 1 TAB PO ×2 (09:26→17:20)
[2023-12-26 12:07] LABS: Glucose Point of Care 117 mg/dl (65-105)
[2023-12-26] MEDS: ACETAMINOPHEN 325 MG TABLET 650 MG PO (12:32)
[2023-12-26] MEDS: ONDANSETRON INJ 4 MG/2 ML VIAL IV PUSH (12:33)
[2023-12-26] MEDS: MAGNESIUM OXIDE 400 MG TABLET PO (12:33)
--- NOTE | 2023-12-26 14:49 | P.PNIM_ITS ---
Progress Note: A&P Assessment and Plan (1) E coli bacteremia: Code(s): R78.81 - Bacteremia; B96.20 - Unspecified Escherichia coli [E. coli] as the cause of diseases classified elsewhere Status: Acute Assessment and Plan: WBC count 19.2 but no other evidence of sepsis picture. AMS on admission as somnolent. Narcan given but no benefit. CT head showing no acute process. UA was consistent with UTI. UCx and BCx collected and abx started. Ceftriaxone 1gm given in ED. CT of the abdomen and pelvis showed extensive esophagitis, multiple large right renal stones as well as an 8 mm right mid ureteral stone with m oderate bilateral hydroureteronephrosis, air in the right ureter, and cholelithiasis. Urology was consulted and patient underwent cystoscopy, bilateral retrogrades, bilateral ureteral stent placement 6 [place]ian contour stents and Coats catheter placement on 12/21. Complicated UTI in the setting of chronic indwelling Coats catheter. BCx returned positive and he was changed to meropenem UCx negative. BCx growing ESBL EColi and Pseudomonas. Suspect urinary source despite negative UCx Repeat BCx NGTD. Sensitivities have returned. He is doing well and responded quickly to abx. WBC normal. Will switched to Ciprofloxacin and Bactrim to complete a course (2) Hematemesis: Qualifiers: Nausea presence: unspecified Qualified Code(s): K92.0 - Hematemesis Code(s): K92.0 - Hematemesis Status: Acute Assessment and Plan: Patient here for coffee ground emesis. Hgb 15.[address] of the abdomen and pelvis showed findings compatible with extensive esophagitis. PPI IV Q12H ordered. GI consulted for EGD. Hgb dropped to 12 range but remaining stable EGD held due to concern for AFib/RVR. EGD is indefinitely on hold. Carafate added. Continue PPI and Carafate. Monitor HH. Resume Eliquis after 7 days (3) Esophagitis: Code(s): K20.90 - Esophagitis, unspecified without bleeding Status: Acute Assessment and Plan: As above. Patient is being treated for esophagitis. (4) Right ureteral stone: Code(s): N20.1 - Calculus of ureter Status: Acute Assessment and Plan: As above (5) Hydroureteronephrosis: Code(s): N13.30 - Unspecified hydronephrosis Status: Acute Assessment and Plan: As above. (6) Non healing left heel wound: Code(s): S91.302A - Unspecified open wound, left foot, initial encounter Status: Acute Assessment and Plan: Routine wound care. (7) Chronic hyponatremia: Code(s): E87.1 - Hypo-osmolality and hyponatremia Status: Acute Assessment and Plan: Na 129 on admission but now up to 131-134 range. Follow (8) Insulin dependent diabetes mellitus: Status: Chronic Assessment and Plan: A1c 8.7%. The patient's blood glucose was reviewed on 12/25 Glucose remains reasonably well controlled. Diabetic diet Continue AccuCheks covering with sliding scale. Hypoglycemia protocol available as needed. Continue to follow (9) Chronic anticoagulation: Code(s): Z79.01 - longterm (current) use of anticoagulants Status: Chronic Assessment and Plan: On Eliquis prior to admission and currently on hold due to the hemetemesis. Follow. Resume after 1 week. (10) Hypertension: Code(s): I10 - Essential (primary) hypertension Status: Chronic Assessment and Plan: Patient's blood pressure was reviewed on 12/25 Blood pressure still mildly elevated with SBP 150-170 range Continue Valsartan and Toprol XL. Lisinopril stopped since was already on Valsartan. Will add Norvasc. (11) Hypothyroidism: Code(s): E03.9 - Hypothyroidism, unspecified Status: Chronic Assessment and Plan: TSH normal in September. Continue levothyroxine (12) Complicated urinary tract infection: Code(s): N39.0 - Urinary tract infection, site not specified Status: Acute Assessment and Plan: As above Chronic Coats has been changed out Plan DVT prophylaxis SCD Code status full code [facility] resident Subjective Date/time seen: 12/26/23 14:49 Interval history: 67yo male with dementia, pAFib, diastolic CHF, insulin-dependent DM, hypothyroidism, HTN, untreated JUN, chronic venous stasis dermatitis, indwelling Coats catheter, kidney stones, chronic left heel wound with history of osteomyelitis of the left calcaneus with previous cultures growing out Pseudomonas and MRSA, and other comorbidities who presented to the emergency department via EMS from [facility] with reports of coffee ground emesis. Patient is alert but confused so hx is unreliable. No issues per staff Review of Systems Review of Systems: ROS unobtainable: Yes unobtainable due to mental status Exam Narrative: AF 97.5 173/91 75 16 95% ra Gen - NARD Chest - lungs clear anteriorly and in flanks. CV - irregularly irregular. Abd - Soft, NT/ND, Positive BS, - Coats secured draining clear yellow urine Ext - trace pedal edema Neuro - Alert but confused. Psych - Nml mood and affect Skin - Warm and dry. Left heel dressing in place. decreased LE scale. Objective Data Vital Signs Vital Signs: Vital Signs - 24 hr 12/25/23 16:00 12/25/23 20:00 12/25/23 20:00 Temperature Pulse Rate 66 73 Respiratory Rate Blood Pressure Pulse Oximetry Oxygen Delivery Room Air 12/25/23 20:48 12/26/23 00:00 12/26/23 04:00 Temperature 97.9 F Pulse Rate 70 66 57 L Respiratory Rate 22 H Blood Pressure 167/97 H Pulse Oximetry 97 Oxygen Delivery 12/26/23 05:00 12/26/23 09:21 12/26/23 08:00 Temperature 97.7 F Pulse Rate 63 72 Respiratory Rate 18 Blood Pressure 173/90 H Pulse Oximetry 98 Oxygen Delivery Room Air 12/26/23 08:00 12/26/23 12:00 12/26/23 13:00 Temperature 97.5 F L Pulse Rate 88 79 75 Respiratory Rate 16 Blood Pressure 173/91 H Pulse Oximetry 95 Oxygen Delivery Intake/Output Intake/Output: Intake & Output 12/23/23 12/24/23 12/25/23 12/26/23 23:59 23:59 23:59 23:59 Intake Total 0 1980 2823 2200 Output Total 750 2100 1700 2200 Balance 1290 -120 1123 0 Meds/Results Medications: Active Medications Generic Name Dose Route Start Last Admin Trade Name Freq PRN Reason Stop Dose Admin Acetaminophen 650 mg 12/21/23 17:59 12/26/23 12:32 Acetaminophen 325 Mg Tablet PO 650 mg Q4-6H PRN Administration Pain (Scale Score 1-3) Hydrocodone Bitart/Acetaminophen 1 tab 12/21/23 17:59 12/26/23 09:26 Hydrocodone/Acetaminophen (*Crx) 5-325 Mg Tablet PO 1 tab Q8H PRN Administration Pain (Scale Score 4-6) Albuterol/Ipratropium 3 ml 12/21/23 17:59 Ipratropium 0.5 Mg/Albuterol Sulfate 2.5 Mg Ampul.Neb 3 Ml INHALATION Q4H PRN Wheezing Bupropion HCl 150 mg 12/22/23 09:00 12/26/23 09:21 Bupropion Hcl Xl (24 Hr) 150 Mg Tabcr PO 150 mg QAM HERMILO Administration Dextrose 12.5 gm 12/21/23 18:00 Dextrose 50% 25 Gm/50 Ml Syringe IV PUSH PRN PRN Hypoglycemia Protocol Gabapentin 100 mg 12/21/23 18:10 12/26/23 09:21 Gabapentin 100 Mg Capsule PO 100 mg BID HERMILO Administration Glucagon 1 mg 12/21/23 18:00 Glucagon For Inj 1 Mg Vial IM PRN PRN Hypoglycemia Protocol Glucose 15 gm 12/21/23 18:00 Glucose Oral Gel 15 Gm Of Glucse In 37.5 Gm Tube PO PRN PRN Hypoglycemia Protocol Meropenem 1 gm in 100 mls @ 200 mls/hr 12/21/23 20:00 12/26/23 13:11 IVPB Infused Q8H HERMILO Infusion Dextrose 1,000 mls @ 100 mls/hr 12/21/23 18:00 Dextrose 5% 1,000 Ml IVPB PRN PRN Hypoglycemia Protocol Insulin Aspart 4 - 8 units 12/22/23 08:00 12/26/23 12:58 Insulin Aspart (*Bkc) 100 Units/Ml SUB-Q Not Given TIDWM HERMILO Protocol Insulin Aspart 2 - 4 units 12/21/23 21:00 12/25/23 21:05 Insulin Aspart (*Bkc) 100 Units/Ml SUB-Q Not Given HS HERMILO Protocol Insulin Human Isoph/Insulin Regular 25 units 12/22/23 09:00 12/26/23 09:23 Insulin Human Isophan/Regular 70/30 (*Bkc) 100 Units/Ml SUB-Q 25 units QAM HERMILO Administration Insulin Human Isoph/Insulin Regular 15 units 12/23/23 17:00 12/25/23 17:27 Insulin Human Isophan/Regular 70/30 (*Bkc) 100 Units/Ml SUB-Q 15 units DAILY@1700 HERMILO Administration Levothyroxine Sodium 100 mcg 12/22/23 06:30 12/26/23 05:32 Levothyroxine Sodium 100 Mcg Tablet PO 100 mcg DAILY@0630 HERMILO Administration Magnesium Oxide 400 mg 12/22/23 12:00 12/26/23 12:33 Magnesium Oxide 400 Mg Tablet PO 400 mg 1200 HERMILO Administration Melatonin 5 mg 12/21/23 21:00 12/25/23 21:06 Melatonin 5 Mg Tablet PO 5 mg HS HERMILO Administration Metoprolol Succinate 75 mg 12/22/23 09:00 12/26/23 09:21 Metoprolol Succinate Ext Rel 25 Mg Tabcr PO 75 mg QAM HERMILO Administration Miconazole Nitrate 1 applic 12/21/23 18:15 12/26/23 09:22 Miconazole Nitrate 2% Cream 30 Gm Tube TOPICAL 1 applic BID HERMILO Administration Multi-Ingred Cream/Lotion/Oil/Oint 1 applic 12/26/23 09:00 12/26/23 09:22 Eucerin Cream 120 Gm Jar TOPICAL 1 applic DAILY HERMILO Administration Multivitamins/Calcium 1 tablet 12/22/23 09:00 12/26/23 09:21 Therapeutic Multivitamins/Minerals Tab (*Bkc) PO 1 tablet DAILY HERMILO Administration Ondansetron HCl 4 mg 12/21/23 13:44 12/26/23 12:33 Ondansetron Inj 4 Mg/2 Ml Vial IV PUSH 4 mg Q4H PRN Administration Nausea Pantoprazole Sodium 40 mg 12/21/23 21:00 12/26/23 09:22 Pantoprazole Sodium Iv 40 Mg Vial IV PUSH 40 mg Q12HR HERMILO Administration Polyethylene Glycol 17 gm 12/21/23 18:15 12/26/23 09:23 Polyethylene Glycol 3350 17 Gm Powd.Pack PO 17 gm BID HERMILO Administration Pravastatin Sodium 40 mg 12/21/23 21:00 12/25/23 21:05 Pravastatin Sodium 20 Mg Tablet PO 40 mg HS HERMILO Administration Senna/Docusate Sodium 1 tab 12/21/23 18:15 12/26/23 09:21 Senna/Docusate Sodium Tablet PO 1 tab BID HERMILO Administration Sucralfate 1,000 mg 12/23/23 16:30 12/26/23 12:32 Sucralfate Susp 100 Mg/Ml 10 Ml Udc PO 1,000 mg ACHS HERMILO Administration Valsartan 40 mg 12/26/23 09:00 12/26/23 09:21 Valsartan 40 Mg Tablet PO 40 mg DAILY HERMILO Administration Radiology Results: ITS Impressions Head CT 12/21/23 12:00 IMPRESSION: No acute intracranial findings. Chest/Abdomen/Pelvis CT 12/21/23 12:17 Impression: Findings compatible with extensive esophagitis. Correlate clinically. Multiple large right renal stones as well as 8 mm right mid ureteral stone. Moderate bilateral hydroureteronephrosis. Air in the right ureter. This could be iatrogenic versus pyelitis. Correlate clinically. Possible cystitis. Correlate with urinalysis. Cholelithiasis. Retrograde Pyelogram 12/22/23 13:31 IMPRESSION: 1. Moderate right hydronephrosis and hydroureter with right internal ureteral stent in expected position. 2. Mild left hydronephrosis and hydroureter with left internal ureteral stent in expected position. Labs Labs: Laboratory Results - last 24 hr 12/25/23 12/25/23 12/26/23 16:48 19:37 05:28 WBC 8.3 RBC 5.22 Hgb 13.0 L Hct 43.4 MCV 83.1 MCH 24.9 L MCHC 30.0 L RDW 15.4 H Plt Count 303 MPV 9.4 Sodium 132 L Potassium 3.7 Chloride 96 L Carbon Dioxide 30 Anion Gap 6 BUN 19 Creatinine 0.70 Estim Creat Clear Calc 123 Estimated GFR > 60 Glucose 88 POC Capillary Glucose 173 H 183 H Calcium 8.9 Phosphorus 2.7 Magnesium 1.8 Albumin 2.9 L 12/26/23 12/26/23 08:38 12:02 WBC RBC Hgb Hct MCV MCH MCHC RDW Plt Count MPV Sodium Potassium Chloride Carbon Dioxide Anion Gap BUN Creatinine Estim Creat Clear Calc Estimated GFR Glucose POC Capillary Glucose 100 117 H Calcium Phosphorus Magnesium Albumin
[2023-12-26] MEDS: INSULIN HUMAN ISOPHAN/REGULAR 70/30 (*BKC) 100 UNITS/ML 15 UNITS SUB-Q (17:24)
[2023-12-26] MEDS: amLODIPine BESYLATE 5 MG TABLET PO (17:24)
--- NOTE | 2023-12-26 17:25 | ECG_ITS ---
Test Date: 2023-12-26 17:35:12 Measurements Intervals [place] Rate: 69 P: 0 IL: 0 QRS: 117 QRSD: 114 T: 26 QT: 418 QTc: 451 Interpretive Statements ATRIAL FIBRILLATION POSSIBLE RIGHT VENTRICULAR HYPERTROPHY [SOME/ALL OF: PROMINENT R IN V1, LATE TRANSITION, RAD, EMERITA, SSS] ABNORMAL ECG Compared to ECG 12/21/2023 10:02:11 Intraventricular conduction delay no longer present T-wave abnormality no longer present Electronically Signed On 12-27-2023 13:06:21 CDT by Syd Rivas M.D.
[2023-12-26 17:48] LABS: Glucose Point of Care 145 mg/dl (65-105)
[2023-12-26] MEDS: BISACODYL 10 MG SUPPOSITORY RECTAL (18:00)
[2023-12-26 20:46] LABS: Glucose Point of Care 200 mg/dl (65-105)
[2023-12-26] MEDS: CIPROFLOXACIN 500 MG TAB PO (21:15)
[2023-12-26] MEDS: SULFAMETHOXAZOLE/TRIMETHOPRIM 800/160 MG DS TABLET 1 TAB PO (21:15)
[2023-12-26] MEDS: MELATONIN 5 MG TABLET PO (21:16)
[2023-12-26] MEDS: PRAVASTATIN SODIUM 20 MG TABLET 40 MG PO (21:16)
[2023-12-27] VITALS: PULSE 57
[2023-12-27 02:24] LABS: Hematocrit 41.9 % (42.0-52.0); Mean Corpuscular Hemoglobin 25.7 pg (26-34); Mean Platelet Volume 9.5 fl (7.4-10.4); Platelet Count Result 311 k/mm3 (150-375); Red Blood Count 5.05 M/mm3 (4.6-6.20); Red Cell Distribution Width 15.4 % (11.5-14.5); White Blood Count 9.2 K/mm3 (4.5-10.0)
[2023-12-27 02:37] LABS: Anion Gap 4 mmol/L (4-12); Blood Urea Nitrogen 19 mg/dL (9-20); Calcium 8.6 mg/dL (8.4-10.2); Carbon Dioxide 29 mmol/L (22-30); Chloride 97 mmol/L (98-107); Estimated CRCL calculation 110 ml/min; Estimated Glomerular Filt Rate > 60; Glucose 145 mg/dL (65-110); Magnesium 1.8 mg/dL (1.6-2.3); Potassium 4.2 mmol/L (3.4-5.0); Sodium 130 mmol/L (137-145)
[2023-12-27 04:00] VITALS: PULSE 53
[2023-12-27 05:00] VITALS: BP 155/78; PULSE 60; RESP 20; TEMP 36.6; O2SAT 97
[2023-12-27] MEDS: SUCRALFATE SUSP 100 MG/ML 10 ML UDC 1000 MG PO ×2 (06:30→12:15)
[2023-12-27] MEDS: LEVOTHYROXINE SODIUM 100 MCG TABLET PO (06:31)
[2023-12-27 08:10] LABS: Glucose Point of Care 132 mg/dl (65-105)
[2023-12-27] MEDS: SENNA/DOCUSATE SODIUM TABLET 1 TAB PO (09:15)
[2023-12-27] MEDS: polyethylene glycoL 3350 17 GM POWD.PACK PO (09:28)
[2023-12-27] MEDS: PANTOPRAZOLE SODIUM IV 40 MG VIAL IV PUSH (09:28)
[2023-12-27] MEDS: SULFAMETHOXAZOLE/TRIMETHOPRIM 800/160 MG DS TABLET 1 TAB PO (09:29)
[2023-12-27] MEDS: CIPROFLOXACIN 500 MG TAB PO (09:29)
[2023-12-27] MEDS: buPROPion HCL XL (24 HR) 150 MG TABCR PO (09:29)
[2023-12-27] MEDS: VALSARTAN 40 MG TABLET PO (09:29)
[2023-12-27] MEDS: THERAPEUTIC MULTIVITAMINS/MINERALS TAB (*BKC) 1 TABLET PO (09:29)
[2023-12-27 09:30] VITALS: PULSE 74
[2023-12-27] MEDS: METOPROLOL SUCCINATE EXT REL 25 MG TABCR 75 MG PO (09:30)
[2023-12-27] MEDS: GABAPENTIN 100 MG CAPSULE PO (09:31)
[2023-12-27] MEDS: amLODIPine BESYLATE 5 MG TABLET PO (09:31)
[2023-12-27] MEDS: EUCERIN CREAM 120 GM JAR 1 APPLIC TOPICAL (09:32)
[2023-12-27] MEDS: MICONAZOLE NITRATE 2% CREAM 30 GM TUBE 1 APPLIC TOPICAL (09:34)
[2023-12-27] MEDS: INSULIN HUMAN ISOPHAN/REGULAR 70/30 (*BKC) 100 UNITS/ML 25 UNITS SUB-Q (09:34)
[2023-12-27 11:40] LABS: Glucose Point of Care 181 mg/dl (65-105)
[2023-12-27] MEDS: MAGNESIUM OXIDE 400 MG TABLET PO (12:15)
--- NOTE | 2023-12-27 13:07 | PM.DS ---
DS: Admitting Diagnosis Discharge Date 12/27/23 Admitting Diagnosis Coffee ground emesis. DS: Discharge Diagnosis Discharge Diagnosis (1) E coli bacteremia: Code(s): R78.81 - Bacteremia; B96.20 - Unspecified Escherichia coli [E. coli] as the cause of diseases classified elsewhere Status: Acute (2) Hematemesis: Qualifiers: Nausea presence: unspecified Qualified Code(s): K92.0 - Hematemesis Code(s): K92.0 - Hematemesis Status: Acute (3) Esophagitis: Code(s): K20.90 - Esophagitis, unspecified without bleeding Status: Acute (4) Right ureteral stone: Code(s): N20.1 - Calculus of ureter Status: Acute (5) Hydroureteronephrosis: Code(s): N13.30 - Unspecified hydronephrosis Status: Acute (6) Non healing left heel wound: Code(s): S91.302A - Unspecified open wound, left foot, initial encounter Status: Acute (7) Chronic hyponatremia: Code(s): E87.1 - Hypo-osmolality and hyponatremia Status: Acute (8) Insulin dependent diabetes mellitus: Status: Chronic (9) Chronic anticoagulation: Code(s): Z79.01 - residential (current) use of anticoagulants Status: Chronic (10) Hypertension: Code(s): I10 - Essential (primary) hypertension Status: Chronic (11) Hypothyroidism: Code(s): E03.9 - Hypothyroidism, unspecified Status: Chronic (12) Complicated urinary tract infection: Code(s): N39.0 - Urinary tract infection, site not specified Status: Acute DS: Summary Hospital Course Reason for hospitalization: 67yo male with dementia, pAFib, diastolic CHF, insulin-dependent DM, hypothyroidism, HTN, untreated JUN, chronic venous stasis dermatitis, indwelling Coats catheter, kidney stones, chronic left heel wound with history of osteomyelitis of the left calcaneus with previous cultures growing out Pseudomonas and MRSA, and other comorbidities who presented to the emergency department via EMS from [facility] with reports of coffee ground emesis. Please see H&P for details. Hospital Course: WBC count 19.2 but no other evidence of sepsis picture. AMS on admission as somnolent. Narcan given but no benefit. CT head showing no acute process. UA was consistent with UTI. UCx and BCx collected and abx started. Ceftriaxone 1gm given in ED. CT of the abdomen and pelvis showed extensive setting of chronic indwelling Coats catheter. BCx returned positive and he was changed to meropenem. UCx negative. BCx growing ESBL EColi and Pseudomonas relatively pansensitive. Suspect urinary source for the bacteremia despite negative UCx. Repeat BCx NGTD. He did well and responded quickly to abx. WBC normalized. He was switched to Ciprofloxacin and Bactrim to complete a 10 day course. Patient here for coffee ground emesis felt related to the bacteremia. Hgb 15.[address] of the abdomen and pelvis showed findings compatible with extensive esophagitis. He was started on Protonix IV and carafate added. GI consulted. Hgb dropped to 12-13 range but remaining stable. No EGD performed due to concern for AFib/RVR. He remained stable. No recurrence. GI felt we could resume Eliquis after 7 days. He overall did well and was able to be discharged on 12/27/23. Status at Discharge Cognitive/behavioral status at discharge: stable Time Spent with Patient Time attestation: Total time spent providing and/or coordinating discharge services: 35 minutes Time spent: Greater than 30 minutes Exam Narrative: AF 97.9 155/78 74 20 97% ra Gen - NARD Chest - bibasilar rhonchi o/w clear. CV - irregularly irregular. Abd - Soft, NT/ND, Positive BS, - Coats secured draining clear yellow urine Ext - trace pedal edema Neuro - Alert but confused. Psych - Nml mood and affect Skin - Warm and dry. bilateral LE covered with eucerin. DS: Data Data Completed and Pending Labs on day of discharge: Labs from last 24 hours 12/27/23 12/27/23 12/27/23 11:27 08:04 02:19 WBC 9.2 RBC 5.05 Hgb 13.0 L Hct 41.9 L MCV 83.0 MCH 25.7 L MCHC 31.0 L RDW 15.4 H Plt Count 311 MPV 9.5 Sodium 130 L Potassium 4.2 Chloride 97 L Carbon Dioxide 29 Anion Gap 4 BUN 19 Creatinine 0.80 Estim Creat Clear Calc 110 Estimated GFR > 60 Glucose 145 H POC Capillary Glucose 181 H 132 H Calcium 8.6 Magnesium 1.8 12/26/23 12/26/23 20:02 17:10 WBC RBC Hgb Hct MCV MCH MCHC RDW Plt Count MPV Sodium Potassium Chloride Carbon Dioxide Anion Gap BUN Creatinine Estim Creat Clear Calc Estimated GFR Glucose POC Capillary Glucose 200 H 145 H Calcium Magnesium Preliminary micro results at discharge 12/24/23 11:19 Blood Culture - Preliminary Blood 12/24/23 11:08 Blood Culture - Preliminary Blood Discharge Plan Discharge Attending physician on discharge: Lloyd Prasad Consulting providers: Soto Ruiz Discharging Clinician: Lloyd Prasad Anticipated Discharge Date/Time: 12/27/23 13:20 Patient Disposition: NH Longterm/Asst Living Activity: as tolerated Diet: diabetic Discharge Instructions: Please check glucose before meals and before bed. Record for the doctor's review. Check blood pressure 1 to 2 times a day. Record for the doctor's review. Take precautions to avoid falls. Rise slowly from a lying or sitting position. Pause before standing or walking. Routine Coats care. Change out Coats every 4 weeks. Continue routine wound care to the heels. Eucerin cream to the bilateral lower extremity intact skin daily Contact the doctor if the patient has any lightheadedness with standing or other worrisome symptoms. Avoid NSAIDs (ibuprofen, naproxen, Aleve). Tylenol is safe to take. Follow-up with the provider at the facility. Follow-up with Urology in 1-2 weeks. Please call for an appointment. For a stent that was placed on 12/21 Thank you for using [facility] for your health care needs. Patient Instructions: Antibiotic Form, Apixaban (By mouth) Stand Alone Forms: General Discharge Information Follow-up/Referrals: Lawrence,MD Asael [Primary Care Provider] - Other Soto Ruiz MD [Physician] - Call for Appointment Discharge Medications: New sulfamethoxazole-trimethoprim 800-160 mg Tablet 1 tab PO Q12HR Qty: 8 0RF amlodipine [Norvasc] 5 mg Tablet 5 mg PO DAILY Qty: 30 0RF ciprofloxacin HCl 500 mg Tablet 500 mg PO 0900,2000 Qty: 8 0RF pantoprazole [Protonix] 40 mg tablet,delayed release (DR/EC) 40 mg PO QAM Qty: 30 0RF Continued Eliquis 5 mg Tablet 5 mg PO Q12HR Qty: 60 0RF Hold Instructions: HOLD - resume when okay with the doctor sennosides-docusate sodium [Senna Plus] 8.6-50 mg Tablet 1 tablet PO BID acetaminophen [Tylenol] 325 mg Capsule 650 mg PO Q4-6H PRN (Reason: Pain (Scale Score 1-3)) melatonin 5 mg Tablet 5 mg PO HS polyethylene glycol 3350 [Miralax] 17 gram Powder In Packet 17 g PO BID Qty: 30 0RF magnesium oxide 400 mg (241.3 mg magnesium) tablet 400 mg PO 1200 Novolin 70-30 FlexPen U-100 100 unit/mL (70-30) insulin pen 25 unit SUBCUT QAM metoprolol succinate [Toprol XL] 25 mg Tablet Extended Release 24 Hr 75 mg PO QAM Qty: 90 0RF gabapentin 100 mg capsule 100 mg PO BID Qty: 20 0RF nystatin 100,000 unit/gram Cream 1 applic TOPICAL BID Rx Instructions: APPLY TO BILAT BUTTOCKS, SACRUM, POSTERIOR THIGH levothyroxine 100 mcg tablet 100 mcg PO DAILY ipratropium-albuterol 0.5 mg-3 mg(2.5 mg base)/3 mL Solution For Nebulization 3 ml INHALATION Q4H PRN (Reason: Wheezing) aspirin 81 mg Tablet,Delayed Release (Dr/Ec) 81 mg PO QAM Qty: 30 0RF pravastatin 40 mg Tablet 40 mg PO HS multivit with min-folic acid 0.4 mg Tablet 1 tablet PO DAILY bupropion HCl 150 mg Tablet Extended Release 24 Hr 150 mg PO QAM Qty: 30 0RF hydrocodone-acetaminophen 5-325 mg tablet 1 tablet PO Q8H PRN (Reason: Pain (Scale Score 4-6)) Qty: 5 0RF Minerin Creme Cream 1 applic topical DAILY Qty: 113 0RF Rx Instructions: Bilateral lower extremity intact skin Changed valsartan 40 mg tablet 40 mg PO DAILY Qty: 30 0RF famotidine 20 mg tablet 20 mg PO QHS Qty: 30 0RF Novolin 70-30 FlexPen U-100 100 unit/mL (70-30) insulin pen 15 unit SUBCUT 1700 Qty: 15 0RF Discontinued lisinopril 10 mg tablet 10 mg PO DAILY Qty: 30 0RF Other Ambulatory Orders: Basic Metabolic Panel (Routine) Timeframe: [id number] Location: Determined by Patient Ordered By: Lloyd Prasad Date of admission: 12/22/23 09:21 Primary Care Provider: LawrenceAsael Admitting Provider: Paul Rosado Attending physician on admission: Paul Rosado Condition: Stable Hospitalist MIPS Heart Failure (Exclusion) Patient has history of Heart Transplant or Left Ventricular Assistive Device?: No IF YES, STOP HERE Heart Failure (Qualifier) Patient has current or prior documentation of LVEF less than or equal to 40%, or mod/servere depressed LVSF?: No IF NO, STOP HERE
[2023-12-27 14:20] VITALS: BP 144/75; PULSE 65; RESP 16; TEMP 36.8; O2SAT 98
== END 2023-12-27 15:12 | DRG 660 ==
LOC: ANHED 13:13 → ANHIMU 14:34 → ANH3MED 12-27 13:25 → ANHIMU 12-28 11:06
PROVIDERS: Physician Assistant; Urology; Admitting Provider Internal Medicine; Emergency Provider Emergency Medicine; PCP Internal Medicine; Visit Provider Internal Medicine
PROC: 0T788DZ Dilation of Bilateral Ureters with Intraluminal Device, Via Natural or Artificial Opening Endoscopic (ICD-10-PCS; CPT 52352; principal; 2023-12-22 14:15)
DX: T83.511A Infection and inflammatory reaction due to indwelling urethral catheter, initial encounter (principal); E87.1 Hypo-osmolality and hyponatremia; N13.6 Pyonephrosis; K92.0 Hematemesis; I50.32 Chronic diastolic (congestive) heart failure; R78.81 Bacteremia; B96.20 Unspecified Escherichia coli [E. coli] as the cause of diseases classified elsewhere; B96.5 Pseudomonas (aeruginosa) (mallei) (pseudomallei) as the cause of diseases classified elsewhere; I11.0 Hypertensive heart disease with heart failure; K20.90 Esophagitis, unspecified without bleeding; E03.9 Hypothyroidism, unspecified; J44.9 Chronic obstructive pulmonary disease, unspecified; E78.5 Hyperlipidemia, unspecified; K21.9 Gastro-esophageal reflux disease without esophagitis; I48.0 Paroxysmal atrial fibrillation; G47.33 Obstructive sleep apnea (adult) (pediatric); F03.90 Unspecified dementia, unspecified severity, without behavioral disturbance, psychotic disturbance, mood disturbance, and anxiety; G62.9 Polyneuropathy, unspecified; S91.302A Unspecified open wound, left foot, initial encounter; E66.01 Morbid (severe) obesity due to excess calories; Z68.35 Body mass index [BMI] 35.0-35.9, adult; Z79.01 Long term (current) use of anticoagulants; Z79.4 Long term (current) use of insulin; Z90.49 Acquired absence of other specified parts of digestive tract; Z87.891 Personal history of nicotine dependence
CPT/HCPCS: 36415; 36600; 70450; 71260; 74177; 74420; 80048; 80053; 80069; 81001; 82375; 82805; 82948; 83050; 83605; 83735; 83880; 84100; 85018; 85025; 85027; 85610; 85730; 86850; 86900; 86901; 87040; 87086; 87186; 93005; 96365; 96375; 99285; A9270; C1758; C1769; C2617; G0378; J0696; J1815; J2003; J2185; J2310; J2371; J2405; J2470; J2704; J3370; J3475; J7030; J7120; Q9966; Q9967

== ENCOUNTER 2024-02-08 04:38 | Inpatient (IN) | payer MEDICARE, MEDICAID, SELFPAY ==
[2024-02-08] VITALS (76 sets, daily range): BP systolic 83–155; BP diastolic 45–135; PULSE 45–110; RESP 12–28; TEMP 34.8–36.9; O2SAT 84–100; BMI 35.4
--- NOTE | ~2024-02-08 | XR_ITS ---
EXAMINATION: XR abdomen gastric tube rechec DATE: 02/13/2024 09:18 INDICATION: Nasogastric tube advancement TECHNIQUE: A supine view of the abdomen and lower chest was obtained for evaluation of feeding tube placement. COMPARISON: 02/13/2024 at 5:27 AM FINDINGS: No significant interval change in position of the nasogastric tube with tip likely within the stomach and proximal side port just above level of the gastroesophageal junction. Persistent airspace opacit ies in the bilateral lower lung zones including small right pleural effusion. Heart size is normal. IMPRESSION: 1. Unchanged position of the nasogastric tube with distal tip likely in the stomach with proximal zach e-port above level of the gastric esophageal junction. Recommend 5 cm enhancement. Reviewed, dictated and finalized at location A. UTER REPAIRER IMPRESSION: 1. Unchanged position of the nasogastric tube with distal tip likely in the sto mach with proximal side-port above level of the gastric esophageal junction. Re commend 5 cm enhancement.
--- NOTE | ~2024-02-08 | XR_ITS ---
EXAMINATION: XR abdomen gastric tube rechec DATE: 02/13/2024 10:09 INDICATION: Nasogastric tube advancement TECHNIQUE: A supine view of the abdomen and lower chest was obtained for evaluation of feeding tube placement. COMPARISON: Earlier radiographs on 02/13/[address] dated 02/18/2024 FINDINGS: Interval advancement of the nasogastric tube with distal tip in proximal side port now within the bod y the stomach. Mild opacities in the right lower lung zone consistent with small right pleural effusi on and associated basilar atelectasis and/or pneumonia. Heart size is normal. IMPRESSION: 1. Nasogastric tube in the stomach. Reviewed, dictated and finalized at location A. MECHANIC
--- NOTE | ~2024-02-08 | CT_ITS ---
CT head without contrast Indication: Altered mental status COMPARISON: 12/29/2023 Technique: Serial scans were obtained through the brain without the administration of contrast. Dose reduction technique was used on this scan by utilizing automated exposure control and iterative recon struction technique. The dose-length product (DLP) was 1589.00 mGy-cm. Findings: Exam so degraded by motion artifact. There is no evidence of intracranial hemorrhage, mass lesion, or acute infarct. The ventricles and subarachnoid spaces are dilated, consistent with modera te atrophy. Low attenuation regions are seen within the periventricular white matter bilaterally, li terry representing changes from chronic microvascular ischemic disease. There is no evidence of edema, mass effect or midline shift. The visualized paranasal sinuses and mastoid air cells are clear. Impression: No significant abnormality identified. Exam somewhat degraded by motion artifact. Atrophy and chronic white matter changes, as above. Reviewed, dictated and finalized at [place]. ADMINISTRATOR Impression: No significant abnormality identified. Exam somewhat degraded by motion artifac t. Atrophy and chronic white matter changes, as above.
--- NOTE | ~2024-02-08 | XR_ITS ---
EXAMINATION: XR abdomen gastric tube insert DATE: 02/10/2024 11:45 INDICATION: Nasogastric tube placement TECHNIQUE: A supine view of the abdomen and lower chest was obtained for evaluation of feeding tube placement. COMPARISON: None. FINDINGS: Nasogastric tube tip in proximal side port in the body the stomach. No dilated loops of gas-filled sunshine wel in the visualized upper abdomen. Cardiomegaly. Mild increased interstitial pattern in the lungs w hich could represent mild pulmonary edema, atelectasis or pneumonia. IMPRESSION: 1. Nasogastric tube in stomach. 2. Diffuse increased interstitial pattern most likely mild pulmonary edema with differential includin g atelectasis and/or pneumonia. 3. Cardiomegaly. Reviewed, dictated and finalized at location A. ANDRA CONSULTANT IMPRESSION: 1. Nasogastric tube in stomach. 2. Diffuse increased interstitial pattern most likely mild pulmonary edema with differential including atelectasis and/or pneumonia. 3. Cardiomegaly.
--- NOTE | ~2024-02-08 | XR_ITS ---
XR chest 1V portable 02/11/2024 12:44 Indication: Respiratory failure Procedure: AP portable chest Comparison: Comparison to multiple prior studies sequentially, with oldest reviewed study dated 08/2023. Findings: Cardiomegaly with interstitial edema. Small right pleural effusion. No pneumothorax. NG tub e in the stomach. No acute osseous abnormality. Impression: 1: Cardiomegaly with interstitial edema. 2: Small right pleural effusion. Reviewed, dictated and finalized at location B. OLEUM ANALYST Impression: 1: Cardiomegaly with interstitial edema. 2: Small right pleural effusion.
--- NOTE | ~2024-02-08 | XR_ITS ---
EXAMINATION: XR abdomen gastric tube rechec DATE: 02/13/2024 11:47 INDICATION: Nasogastric tube advancement TECHNIQUE: A supine view of the abdomen and lower chest was obtained for evaluation of feeding tube placement. COMPARISON: 02/13/2024 FINDINGS: Again seen is a nasogastric tube distal tip in the body the stomach and proximal side port likely jus t below level of the gastric esophageal junction. No dilated loops of gas-filled bowel in the visuali zed abdomen. Postoperative changes in the right lower quadrant. Opacity right lower lung zone consist ent with small right pleural effusion and associated atelectasis and/or pneumonia. IMPRESSION: 1. Nasogastric tube in the stomach. Reviewed, dictated and finalized at location A. AL MANAGER
--- NOTE | ~2024-02-08 | XR_ITS ---
Portable chest x-ray Comparison: 02/08/2024 Clinical History: Septic shock Findings: There is mild haziness in the right midlung with probable minimal right pleural effusion. There is mild interstitial prominence in the lungs bilaterally. Cardiomediastinal silhouette is stab le. Bones and soft tissues are unremarkable. Impression: Probable mild mixed alveolar and interstitial pulmonary edema. Correlate clinically for infection. Minimal right pleural effusion. Reviewed, dictated and finalized at [facility]. ULAR TECHNICIAN Impression: Probable mild mixed alveolar and interstitial pulmonary edema. Correlate clinic ally for infection. Minimal right pleural effusion.
--- NOTE | ~2024-02-08 | XR_ITS ---
EXAMINATION: XR abdomen gastric tube insert DATE: 02/13/2024 05:51 INDICATION: Nasogastric tube placement TECHNIQUE: A supine view of the abdomen and lower chest was obtained for evaluation of feeding tube placement. COMPARISON: None. FINDINGS: Nasogastric tube with distal tip likely within the stomach with proximal side-port remaining above th e level of the gastroesophageal junction. No dilated loops of bowel within the visualized abdomen. Op acities at the bilateral lower lungs, right greater than left consistent with atelectasis or pneumoni a with small right pleural effusion. IMPRESSION: 1. Nasogastric tube with tip likely just within the stomach with proximal side-port above the gastroe sophageal junction. Recommend advancement by 6 cm. Reviewed, dictated and finalized at location A. K SEALER IMPRESSION: 1. Nasogastric tube with tip likely just within the stomach with proximal side- port above the gastroesophageal junction. Recommend advancement by 6 cm.
--- NOTE | ~2024-02-08 | CT_ITS ---
Clinical Indication: Sepsis, altered mental status CT Scan of the Chest, Abdomen, and Pelvis with Contrast: Technique: Contiguous sections were acquired throughout the chest, abdomen, and pelvis after intraven ous administration of 100 cc of Omnipaque 350. Dose reduction technique was used on this scan by aubrey gabirel automated exposure control and iterative reconstruction technique. The dose-length product (DL P) was 3615.79 mGy-cm. Comparison: 12/21/2023 Findings: Exam degraded by motion artifact. Probable right paratracheal lymphadenopathy,, largest node measuring approximately 1.9 cm in short ax is.. No aortic aneurysm. No other mediastinal soft tissue abnormality identified. No pericardial effu candida. Small right pleural effusion. No definite left pleural effusion.. Extensive motion artifact limits evaluation of the lungs. Questionable mild pulmonary edema versus mo tion artifact. The liver, spleen, pancreas, and adrenal glands are within normal limits. Gallbladder distended with small gallstones. Bilateral ureteral stents are present, without definite hydronephrosis. Right renal stones are probably similar overall to prior exam. Evaluation for ureteral stones is very limited du e to motion artifact. No evidence of aortic aneurysm. No lymphadenopathy. No bowel obstruction or bowel wall thickening. Probable stool suggests constipation. No definite morelia l obstruction. Possible wall thickening urinary bladder despite Coats catheter present. No pelvic mass evident. No a scites. Impression: Exam degraded by motion artifact. Small right pleural effusion. Right paratracheal lymphadenopathy, nonspecific. Correlate for reactive/inflammatory nodes versus any possibility of lymphoma or metastatic disease. Questionable mild pulmonary edema versus motion artifact. Possible cystitis despite Coats catheter. Correlate with urinalysis. Cholelithiasis. Constipation. Bilateral ureteral stents with relatively stable right renal stones. No definite hydronephrosis. Reviewed, dictated and finalized at location . MBLER ARRANGER Impression: Exam degraded by motion artifact. Small right pleural effusion. Right paratracheal lymphadenopathy, nonspecific. Correlate for reactive/inflamm atory nodes versus any possibility of lymphoma or metastatic disease. Questionable mild pulmonary edema versus motion artifact. Possible cystitis despite Coats catheter. Correlate with urinalysis. Cholelithiasis. Constipation. Bilateral ureteral stents with relatively stable right renal stones. No definit e hydronephrosis.
--- NOTE | ~2024-02-08 | XR_ITS ---
Portable chest x-ray Comparison: 10/26/2023 Clinical History: Proximal Findings: There is probable mild bibasilar pulmonary edema. No pleural effusion or pneumothorax. Ca rdiomediastinal silhouette is enlarged. Bones and soft tissues are unremarkable. Impression: Mild bibasilar pulmonary edema. Cardiomegaly. Reviewed, dictated and finalized at location . L TANK ERECTOR Impression: Mild bibasilar pulmonary edema. Cardiomegaly.
--- NOTE | ~2024-02-08 | CT_ITS ---
EXAMINATION: CT abdomen pelvis wo con DATE: 02/14/2024 15:38 INDICATION: Ureteral stone follow up TECHNIQUE: Computed tomography (CT) of the abdomen and pelvis was performed without intravenous contr ast. Automated exposure control and iterative reconstruction technique were employed. The dose-length product was 1529.60 mGy-cm. COMPARISON: 02/08/2024. FINDINGS: Lower thorax: Septal thickening dependent consolidation. Small left and moderate right pleural fluid collections. Liver: Normal. Biliary/Gallbladder: Cholelithiasis. No bile duct dilation. Pancreas: No mass or duct dilation. Spleen: Normal. Adrenals: Right myelolipoma. Kidneys: Mild bilateral perinephric stranding. Stable bilateral nephrolithiasis. Bilateral ureteral s tents, in good position. 3.3 cm heterogeneous density exophytic mass with irregular margins at the le ft midpole in the area of a previous simple cyst, likely representing a ruptured cyst. GI tract: The rectum is dilated to 8.1 cm by the semiformed stool, without inflammatory changes. No s mall bowel dilation. Appendix not visualized. Diverticulosis without diverticulitis. Mesentery/Peritoneum: No ascites, mass, or free air. Retroperitoneum: No mass. Atherosclerotic abdominal aortic and/or arterial calcifications. Pelvis: Urinary bladder decompressed by a Coats catheter. Moderate bladder wall thickening with mild surrounding inflammatory change. Soft Tissues: Portions of the right lateral abdomen are obscured from the [id number]. Right latera l body wall edema. Anterior hernia mesh. Bones: No acute osseous finding. IMPRESSION: Subsegmental bilateral dependent atelectasis/consolidation. Mild pulmonary edema. Moderate right and small left pleural effusions. Stable nephrolithiasis. Ureteral stents in good position. Ruptured exophytic simple cyst at the left midpole. Bladder wall thickening may be secondary to incomplete distention or cystitis, correlate with urinaly sis. Likely fecal impaction. Reviewed, dictated and finalized at location K. UNICATIONS FIELD TECHNICIAN IMPRESSION: Subsegmental bilateral dependent atelectasis/consolidation. Mild pulmonary basilio a. Moderate right and small left pleural effusions. Stable nephrolithiasis. Ureteral stents in good position. Ruptured exophytic si mple cyst at the left midpole. Bladder wall thickening may be secondary to incomplete distention or cystitis, correlate with urinalysis. Likely fecal impaction.
--- NOTE | 2024-02-08 05:00 | ECG_ITS ---
Test Date: 2024-02-08 05:10:53 Measurements Intervals [place] Rate: 71 P: 0 LA: 0 QRS: 73 QRSD: 109 T: 3 QT: 393 QTc: 429 Interpretive Statements ATRIAL FIBRILLATION LOW QRS VOLTAGE IN PRECORDIAL LEADS [QRS DEFLECTION < 1.0 mV IN CHEST LEADS] ANTEROSEPTAL MYOCARDIAL INFARCTION , OF INDETERMINATE AGE [40+ ms Q WAVE IN V1-V4] Compared to ECG 12/26/2023 17:35:12 Low QRS voltage now present Myocardial infarct finding now present Electronically Signed On 02-08-2024 12:52:41 LABEL PINKER by Jared Andre M.D.
[2024-02-08] MEDS: MEROPENEM 1 GM/NS 100 ML 1 GM/100 ML BAG IVPB ×3 (05:38→22:15)
[2024-02-08] MEDS: SODIUM CHLORIDE 0.9% IV 1,000 ML 999 ML IV CONT ×3 (05:39→05:53)
[2024-02-08 05:41] LABS: Basophils Absolute Auto 0.1 K/mm3 (0.0-0.1); Basophils Percent Auto 0.5 % (0.2-1.2); Eosinophils Absolute Auto 0.1 K/mm3 (0-0.3); Hematocrit 28.5 % (42.0-52.0); Hemoglobin 8.7 g/dL (14.0-18.0); Immature Granulocyte Absolute 0.13 K/mm3 (0.00-0.031); Immature Granulocyte Percent A 1.1 % (0-0.5); Lymphocytes Absolute Auto 0.52 K/mm3 (0.9-3.2); Lymphocytes Percent Auto 4.2 % (18.3-44.2); Mean Corpuscular HGB Conc 30.5 g/dl (32-36); Mean Corpuscular Hemoglobin 24.6 pg (26-34); Mean Corpuscular Volume 80.7 fl (80-100); Mean Platelet Volume 9.5 fl (7.4-10.4); Monocytes Absolute Auto 0.9 K/mm3 (0.1-0.6); Monocytes Percent Auto 7.2 % (2.6-8.5); Neutrophils Absolute Auto 10.6 K/mm3 (1.3-6.7); Platelet Count Result 322 k/mm3 (150-375); Red Blood Count 3.53 M/mm3 (4.6-6.20); Red Cell Distribution Width 17.9 % (11.5-14.5); White Blood Count 12.4 K/mm3 (4.5-10.0)
[2024-02-08 05:45] LABS: Alveolar/Arterial O2 Gradient 82.6 mmHg; Base Excess ABG -4.9 mEq/l (+/-2.0); Fractional Inspired Oxygen 28 %; HCO3 ABG 20.8 mEq/l (22.0-26.0); Oxygen Content ABG 14.4 %vol (16.0-22.0); Oxygen Saturation ABG 95.7 % (95.0-100.0); Oxyhemoglobin 94.7 % THb (90.0-100.0); PCO2 ABG 40.8 mmHg (35.0-45.0); PO2 ABG 84.6 mmHg (80.0-100.0); PO2 FiO2 Ratio Arterial Blood 3.02 %; Total Hemoglobin 10.7 g/dL (12.0-18.0); pH ABG 7.325 (7.350-7.450)
[2024-02-08 05:46] LABS: Device NASAL CANNULA; Modified Allen's Test Pass; Site Drawn RIGHT RADIAL
[2024-02-08 05:50] LABS: Lactic Acid Reflex 1.1 mmol/L (0.7-2.0)
[2024-02-08 05:51] LABS: Alanine Aminotransferase 12 U/L (6-50); Albumin Level 2.9 g/dL (3.5-5.1); Alkaline Phosphatase 152 U/L (38-126); Anion Gap 5 mmol/L (4-12); Aspartate Amino Transferase 16 U/L (17-59); Bilirubin,Total 0.4 mg/dL (0.2-1.3); Blood Urea Nitrogen 61 mg/dL (9-20); Calcium 9.5 mg/dL (8.4-10.2); Carbon Dioxide 23 mmol/L (22-30); Chloride 106 mmol/L (98-107); Estimated CRCL calculation 56 ml/min; Estimated Glomerular Filt Rate 43; Glucose 88 mg/dL (65-110); Lipase 49 U/L (23-300); Magnesium 2.2 mg/dL (1.6-2.3); Phosphorus 4.7 mg/dL (2.5-4.5); Potassium 5.5 mmol/L (3.4-5.0); Sodium 134 mmol/L (137-145)
[2024-02-08 05:52] LABS: Ethanol < 10 mg/dL (<10)
[2024-02-08 05:57] LABS: INR 1.9; Prothrombin Time 22.3 Seconds (11.1-14.7)
[2024-02-08 05:58] LABS: Partial Thromboplastin Time 65.3 Seconds (22.3-36.8)
[2024-02-08 06:00] LABS: Platelet Estimate Adequate (Adequate)
[2024-02-08] MEDS: SODIUM CHLORIDE 0.9% IV 800 ML 999 ML IV CONT (06:00)
[2024-02-08 06:01] LABS: Anisocytosis 1+; Schistocytes None Seen
[2024-02-08 06:02] LABS: NT Pro B Type Natriuretic Pept 2600 pg/mL (19.9-100); Troponin I < 0.012 ng/mL (0.000-0.034)
[2024-02-08 06:06] LABS: Glucose Point of Care 88 mg/dl (65-105)
--- NOTE | 2024-02-08 06:13 | PC.NURSE ---
pt began thrashing/ highly confused/ pulling iv lines/ [place] cather/ unable to keep laura hugger on. edp dr. wilson verbal order bilateral soft wrist restraints
[2024-02-08 06:17] LABS: Influenza A QL RT-PCR Negative (Negative); Influenza B QL RT-PCR Negative (Negative); RSV RNA, RT-PCR Negative (Negative); SARS-CoV-2 RNA PCR Negative (Negative)
[2024-02-08 06:18] LABS: Add Urine Microscopic? YES; Appearance Urine Cloudy (Clear); Bacteria Urine 4+ /hpf; Bilirubin Urine Negative (Negative); Blood Urine 3+ (Negative); Glucose Urine UA Negative (Negative); Ketones Urine Negative (Negative); Leukocyte Esterase Ur 3+ LEU/UL (Negative); Nitrate Urine Positive (Negative); Non Pathogenic Casts 0-2; Protein Urine 3+ mg/dL (Negative); RBC Urine >100 /hpf (0-2); Specific Grav Ur 1.018 (1.001-1.035); Squamous Epithelial Cell Urine Occasional /hpf (Few); Urobilinogen Urine 0.2 mg/dL (<2.0); WBC Urine >100 /hpf (0-3)
[2024-02-08 06:28] LABS: Color Urine Red (Yellow)
[2024-02-08 06:33] LABS: Amphetamine Screen Urine Negative (Negative); Barbiturate Screen Urine Negative (Negative); Benzodiazepines Screen Urine Negative (Negative); Cannabinoid Screen Urine Negative (Negative); Cocaine Screen Urine Negative (Negative); Methadone Screen Urine Negative (Negative); Opiate Screen Urine Negative (Negative); Phencyclidine Screen Urine Negative (Negative)
[2024-02-08] MEDS: VANCOMYCIN 1,250 MG/NS 250 ML 1,250 MG/250 ML BAG 166.67 MG IVPB ×2 (06:40→09:28)
--- NOTE | 2024-02-08 06:41 | ED.GENADULT ---
HPI - General Adult General Chief complaint: Altered Mental Status Stated complaint: hallucinations, agitated Time Seen by Provider: 02/08/24 04:46 History of Present Illness HPI narrative: This is a 68-year-old male sent from the group home for altered mental status/hallucinations. On arrival patient is confused. He cannot answer questions. He cannot follow commands. He is pulling on his Coats/ catheter and oxygen. Can provide no meaningful interview to guide a workup. Related Data Home Medications Medication Instructions Recorded Confirmed ipratropium 0.5 mg-albuterol 3 mg 3 ml inhalation Q4H PRN Wheezing 02/15/21 12/21/23 (2.5 mg base)/3 mL nebulization soln levothyroxine 100 mcg tablet 100 mcg PO DAILY 02/15/21 12/21/23 pravastatin 40 mg tablet 40 mg PO HS 12/08/21 12/21/23 multivitamin with minerals-folic 1 tablet PO DAILY 03/02/22 12/21/23 acid 0.4 mg tablet acetaminophen 325 mg capsule 650 mg PO Q4-6H PRN Pain (Scale 09/10/22 12/21/23 (Tylenol) Score 1-3) sennosides 8.6 mg-docusate sodium 1 tablet PO BID 09/10/22 12/21/23 50 mg tablet (Senna Plus) melatonin 5 mg tablet 5 mg PO HS 03/10/23 12/21/23 insulin NPH-regular 70-30 U-100 25 unit subcut QAM 08/07/23 12/21/23 insulin 100 unit/mL subcutaneous pen (Novolin 70-30 FlexPen U-100 Insulin) magnesium oxide 400 mg (241.3 mg 400 mg PO 1200 08/07/23 12/21/23 magnesium) tablet nystatin 100,000 unit/gram topical 1 applic topical BID 11/30/23 12/21/23 cream Allergies Allergy/AdvReac Type Severity Reaction Status Date / Time No Known Allergies Allergy Verified 12/22/23 12:21 [facility] Past Medical History Medical History (Updated 02/08/24 @ 07:39 by Jayson Esteban MD) Choledocholithiasis (05/2022) Chronic hyponatremia Chronic indwelling Coats catheter Chronic obstructive pulmonary disease Chronic osteomyelitis of left foot Chronic venous insufficiency Depression Diastolic congestive heart failure E coli bacteremia Gastroesophageal reflux disease Hyperlipidemia Hypertension Hypothyroidism Insulin dependent diabetes mellitus Kidney stones Morbid obesity Obstructive sleep apnea Non-compliant with CPAP. Paroxysmal atrial fibrillation Peripheral neuropathy Surgical History Surgical History History of abdominal surgery The patient has a large scar in the right lower abdomen just above the right groin and on palpation of his abdomen he has what feels like mesh that extends from side to side and has a course rough texture it also extends from just under the umbilicus to a couple of inches above the pubis History of appendectomy History of back surgery History of cataract extraction History of hemorrhoidectomy History of tonsillectomy and adenoidectomy Family History Family History Sibling Family history of heart disease in male family member before age 55 Family history of diabetes mellitus in first degree relative Patient's brother is Family history of obesity Hypertension Mother Family history of arthritis Patient's mother is Father Patient's father is Social History Social History Social History: Surrogate medical decision maker: Marlys Marrero, . Code status: Full code. Smoking packs per day: 1.5 Smoking cigarettes per day: 30.0 Years smoked: 15 Smoking pack-years: 22.50 Smoking status: Former smoker Tobacco type: cigarettes Second hand tobacco smoke exposure: Yes Alcohol intake: never Substance use: never Substance use type: unknown Lack of Transportation: No Lack of Food: Never True Current Housing: I Have Housing Concerned About Future Housing: No Difficulty Paying Gas/Electric Bills: No Difficulty Paying for Meds: No Currently Unemployed: No Education: High School Diploma/GED Difficulty w/ Childcare or Family Care: No Living arrangements: group home Additional living arrangements comments: Resident at [facility]. to Marlys. They have 2 sons. He is nonambulatory and depends on a [place] lift for transfer. 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 Spiritual care concerns: No Agree to blood products: Yes Exam Narrative: APPEARANCE: appears older than stated age Head: atraumatic. EYES: EOMI, 2 mm equal and reactive NOSE: Atraumatic NECK: Trachea midline RESPIRATORY: tachypneic, hypoxic on room air CARDIOVASCULAR: RRR, no peripheral edema ABDOMINAL: distended, obese, not tender, palpable hernia mesh MUSCULOSKELETAl: No obvious deformities NEURO: Alert. Moving 4/4 extremities SKIN:: Warm, dry. Normal color PSYCHIATRIC: Normal affect Course Vital Signs Vital signs: Vital Signs Temperature 94.8 F L 02/08/24 04:44 Pulse Rate 70 02/08/24 04:44 Respiratory Rate 18 02/08/24 04:44 Blood Pressure 95/76 L 02/08/24 04:44 Pulse Oximetry 98 02/08/24 04:44 Oxygen Delivery Room Air 02/08/24 04:44 Temperature 96.5 F L 02/08/24 07:18 Pulse Rate 76 02/08/24 07:18 Respiratory Rate 22 H 02/08/24 07:18 Blood Pressure 124/90 02/08/24 07:18 Pulse Oximetry 95 02/08/24 07:18 Oxygen Delivery Nasal Cannula 02/08/24 06:41 Oxygen Flow Rate 4 02/08/24 06:41 Procedures Central Line Placement Left Femoral: Central Line Date: 02/08/24 Performed Emergently - Given emergent patient condition, temporal constraints may have precluded informed consent.: Yes Time Out Performed: Yes Patient Placed on Monitor/Pulse Ox: Yes Max. Sterile Barrier Technique: Caps, large sterile sheet and hand hygiene Central Line Prep: 2% chlorhexidine scrub and sterile drapes applied Technique: US-Guided Local Anesthetic: lidocaine 1% Amount of anesthesia used (mL): 5 Ultrasound Used for Placement: Yes Central Line Lumen Inserted: triple Post Procedure: sutured in place, good blood return, all ports aspirated, flushed, capped and sterile dressing applied Patient Tolerated Procedure: well Complications: none Medical Decision Making MDM Narrative Medical decision making narrative: -Course: 68-year-old male with multiple medical comorbidities presenting ED for presenting to the ED agitation and hallucinations. On arrival the patient can provide no useful information to guide the workup. He is pulling at lines, his Coats and his oxygen tubing and was placed in soft restraints for safety. Found to have a rectal temperature 94.8?. Placed on Edmar Hugger. Full sepsis workup obtained. Chart review shows the patient has a history of ESBL bacteremia and pansensitive Pseudomonas. Patient started on meropenem and vancomycin while workup was being obtained. Patient's blood pressures were coming back erroneous (130/110, 170/166 etc.) Manual blood pressure after 2 L was 92/60. Patient given another 2 L to reach the 30 cc/kilogram bolus however he does have a history of diastolic heart failure, and has evidence of fluid overload on chest x-ray and point of care ultrasound. He will need close monitoring of fluid status. A central line was placed in the left femoral vein. Patient was too agitated to get a CT scan. Patient received versed and we were able to complete the scans, however the patient became apneic and hypoxic. Code status was reviewed. patient is modified code with no intubation but CPR selective treatments okay. Patient was placed on BiPAP with improvement in his oxygenation although his mental status is not ideal for bipap. He was trying to reach the patient's to establish goals of care and she was unavailable. patient's blood pressure decreased and was started on Norepi. Dr. Lott was updated on the patient's condition. He will be placed in the ICU for further management. Independent interpretation of studies: Urine is grossly infected. Chest x-ray shows bibasilar pulmonary edema and cardiomegaly. Patient has slight JHONY. Hemoglobin of 8.7 from a baseline of 13 in November of this year. Patient has JHONY. Potassium 5.5 w/o ekg changes. Lactic normal. White count 12. Viral swabs negative. ABG showed a metabolic acidosis. Independent EKG interpretation: Rhythm atrial fibrillation, Rate [71], Apison -[normal], NJ -none, QRS [narrow], QTC [normal], T waves -[negative for concerning inversions], ST Segments - [Negative for concerning elevations] Final interpretations: atrial fibrillation -DDX includes but is not limited to: Sepsis, UTI, pneumonia, bacteremia, CHF, COPD -Shared decision making / Disposition: admitted to ICU Vital Signs Vital Signs: Vital Signs Temperature 94.8 F L 02/08/24 04:44 Pulse Rate 70 02/08/24 04:44 Respiratory Rate 18 02/08/24 04:44 Blood Pressure 95/76 L 02/08/24 04:44 Pulse Oximetry 98 02/08/24 04:44 Oxygen Delivery Room Air 02/08/24 04:44 Temperature 96.5 F L 02/08/24 07:18 Pulse Rate 76 02/08/24 07:18 Respiratory Rate 22 H 02/08/24 07:18 Blood Pressure 124/90 02/08/24 07:18 Pulse Oximetry 95 02/08/24 07:18 Oxygen Delivery Nasal Cannula 02/08/24 06:41 Oxygen Flow Rate 4 02/08/24 06:41 Lab Data 02/08/24 05:33 02/08/24 05:33 Labs: Lab Results 02/08/24 02/08/24 02/08/24 Range/Units 05:33 05:49 06:03 WBC 12.4 H (4.5-10.0) K/mm3 RBC 3.53 L (4.6-6.20) M/mm3 Hgb 8.7 L D (14.0-18.0) g/dL Hct 28.5 L (42.0-52.0) % MCV 80.7 (80-100) fl MCH 24.6 L (26-34) pg MCHC 30.5 L (32-36) g/dl RDW 17.9 H (11.5-14.5) % Plt Count 322 (150-375) k/mm3 MPV 9.5 (7.4-10.4) fl Immature Gran % (Auto) 1.1 H (0-0.5) % Neut % (Auto) 86.0 H (45.5-73.1) % Lymph % (Auto) 4.2 L (18.3-44.2) % Garfield % (Auto) 7.2 (2.6-8.5) % Eos % (Auto) 1.0 (0-4.4) % Baso % (Auto) 0.5 (0.2-1.2) % Lymph # (Auto) 0.52 L (0.9-3.2) K/mm3 Garfield # (Auto) 0.9 H (0.1-0.6) K/mm3 Eos # (Auto) 0.1 (0-0.3) K/mm3 Baso # (Auto) 0.1 (0.0-0.1) K/mm3 Abs Immat Gran (auto) 0.13 H (0.00-0.031) K/mm3 Absolute Neuts (auto) 10.6 H (1.3-6.7) K/mm3 Absolute Nucleated RBC 0.000 (0.0-0.012) K/mm3 Nucleated RBC % 0.0 (0.0-0.2) % Platelet Estimate Adequate (Adequate) Anisocytosis 1+ Schistocytes None seen PT 22.3 H (11.1-14.7) Seconds INR 1.9 APTT 65.3 H (22.3-36.8) Seconds Sodium 134 L (137-145) mmol/L Potassium 5.5 H (3.4-5.0) mmol/L Chloride 106 (98-107) mmol/L Carbon Dioxide 23 (22-30) mmol/L Anion Gap 5 (4-12) mmol/L BUN 61 H D (9-20) mg/dL Creatinine 1.60 H (0.7-1.3) mg/dL Estim Creat Clear Calc 56 ml/min Estimated GFR 43 L (59 - ) Glucose 88 (65-110) mg/dL POC Capillary Glucose 88 (65-105) mg/dl Lactic Acid 1.1 (0.7-2.0) mmol/L Calcium 9.5 (8.4-10.2) mg/dL Phosphorus 4.7 H (2.5-4.5) mg/dL Magnesium 2.2 (1.6-2.3) mg/dL Total Bilirubin 0.4 (0.2-1.3) mg/dL AST 16 L (17-59) U/L ALT 12 (6-50) U/L Alkaline Phosphatase 152 H (38-126) U/L Troponin I < 0.012 (0.000-0.034) ng/mL NT-Pro-B Natriuret Pep 2600 H (19.9-100) pg/mL Total Protein 7.0 (6.3-8.2) g/dL Albumin 2.9 L (3.5-5.1) g/dL Lipase 49 (23-300) U/L TSH (Reflex) 4.720 H (0.465-4.68) uIU/mL Free T4 1.78 (0.78-2.19) ng/dL Total T3 Pending Urine Color Red H (Yellow) Urine Appearance Cloudy H (Clear) Urine pH 8.0 (5.0-9.0) Ur Specific Kittrell 1.018 (1.001-1.035) Urine Protein 3+ H (Negative) mg/dL Urine Glucose (UA) Negative (Negative) mg/dL Urine Ketones Negative (Negative) mg/dL Ur Blood (Man) 3+ H (Negative) Urine Nitrate Positive H (Negative) Urine Bilirubin Negative (Negative) Urine Urobilinogen 0.2 (<2.0) mg/dL Leukocyte Esterase Rfl 3+ H (Negative) RAZ/UL Urine RBC >100 H (0-2) /hpf Urine WBC >100 H (0-3) /hpf Ur Squamous Epith Cells Occasional (Few) /hpf Urine Bacteria 4+ H /hpf Urine Casts 0-2 Urine Opiates Screen Negative (Negative) Urine Methadone Screen Negative (Negative) Ur Barbiturates Screen Negative (Negative) Ur Phencyclidine Scrn Negative (Negative) Ur Amphetamine Screen Negative (Negative) U Benzodiazepines Scrn Negative (Negative) Urine Cocaine Screen Negative (Negative) U Cannabinoids Screen Negative (Negative) Ethyl Alcohol < 10 (<10) mg/dL Influenza A (RT-PCR) Negative (Negative) Influenza B (RT-PCR) Negative (Negative) RSV (RT-PCR) Negative (Negative) SARS-CoV-2 RNA (RT-PCR) Negative (Negative) 02/08/24 Range/Units 08:23 WBC (4.5-10.0) K/mm3 RBC (4.6-6.20) M/mm3 Hgb (14.0-18.0) g/dL Hct (42.0-52.0) % MCV (80-100) fl MCH (26-34) pg MCHC (32-36) g/dl RDW (11.5-14.5) % Plt Count (150-375) k/mm3 MPV (7.4-10.4) fl Immature Gran % (Auto) (0-0.5) % Neut % (Auto) (45.5-73.1) % Lymph % (Auto) (18.3-44.2) % Garfield % (Auto) (2.6-8.5) % Eos % (Auto) (0-4.4) % Baso % (Auto) (0.2-1.2) % Lymph # (Auto) (0.9-3.2) K/mm3 Garfield # (Auto) (0.1-0.6) K/mm3 Eos # (Auto) (0-0.3) K/mm3 Baso # (Auto) (0.0-0.1) K/mm3 Abs Immat Gran (auto) (0.00-0.031) K/mm3 Absolute Neuts (auto) (1.3-6.7) K/mm3 Absolute Nucleated RBC (0.0-0.012) K/mm3 Nucleated RBC % (0.0-0.2) % Platelet Estimate (Adequate) Anisocytosis Schistocytes PT (11.1-14.7) Seconds INR APTT (22.3-36.8) Seconds Sodium (137-145) mmol/L Potassium (3.4-5.0) mmol/L Chloride (98-107) mmol/L Carbon Dioxide (22-30) mmol/L Anion Gap (4-12) mmol/L BUN (9-20) mg/dL Creatinine (0.7-1.3) mg/dL Estim Creat Clear Calc ml/min Estimated GFR (59 - ) Glucose (65-110) mg/dL POC Capillary Glucose (65-105) mg/dl Lactic Acid (0.7-2.0) mmol/L Calcium (8.4-10.2) mg/dL Phosphorus (2.5-4.5) mg/dL Magnesium (1.6-2.3) mg/dL Total Bilirubin (0.2-1.3) mg/dL AST (17-59) U/L ALT (6-50) U/L Alkaline Phosphatase (38-126) U/L Troponin I Pending (0.000-0.034) ng/mL NT-Pro-B Natriuret Pep (19.9-100) pg/mL Total Protein (6.3-8.2) g/dL Albumin (3.5-5.1) g/dL Lipase (23-300) U/L TSH (Reflex) (0.465-4.68) uIU/mL Free T4 (0.78-2.19) ng/dL Total T3 Urine Color (Yellow) Urine Appearance (Clear) Urine pH (5.0-9.0) Ur Specific Kittrell (1.001-1.035) Urine Protein (Negative) mg/dL Urine Glucose (UA) (Negative) mg/dL Urine Ketones (Negative) mg/dL Ur Blood (Man) (Negative) Urine Nitrate (Negative) Urine Bilirubin (Negative) Urine Urobilinogen (<2.0) mg/dL Leukocyte Esterase Rfl (Negative) RAZ/UL Urine RBC (0-2) /hpf Urine WBC (0-3) /hpf Ur Squamous Epith Cells (Few) /hpf Urine Bacteria /hpf Urine Casts Urine Opiates Screen (Negative) Urine Methadone Screen (Negative) Ur Barbiturates Screen (Negative) Ur Phencyclidine Scrn (Negative) Ur Amphetamine Screen (Negative) U Benzodiazepines Scrn (Negative) Urine Cocaine Screen (Negative) U Cannabinoids Screen (Negative) Ethyl Alcohol (<10) mg/dL Influenza A (RT-PCR) (Negative) Influenza B (RT-PCR) (Negative) RSV (RT-PCR) (Negative) SARS-CoV-2 RNA (RT-PCR) (Negative) ABG Data ABG results: 02/08/24 05:25 Puncture Site Right radial ABG pH 7.325 L ABG pCO2 40.8 ABG pO2 84.6 ABG PO2/FiO2 Ratio 3.02 ABG HCO3 20.8 L ABG O2 Saturation 95.7 ABG O2 Content 14.4 L ABG Base Excess -4.9 A-a Gradient 82.6 Oxyhemoglobin 94.7 Total Hemoglobin 10.7 L O2 Delivery Device Nasal cannula O2 Liters/Min 2.0 FiO2 28 Critical Care Time Critical Care Time Critical Care Time: Yes Total Critical Care Time: 75 Discharge Plan Discharge Clinical Impression: Acute hypoxic respiratory failure, Sepsis, JHONY (acute kidney injury), CHF (congestive heart failure), Encephalopathy due to infection, Anemia Patient Disposition: Still a Patient Condition: Critical Prescriptions: No Action Eliquis 5 mg Tablet 5 mg PO Q12HR Qty: 60 0RF Hold Instructions: HOLD - resume when okay with the doctor sennosides-docusate sodium [Senna Plus] 8.6-50 mg Tablet 1 tablet PO BID acetaminophen [Tylenol] 325 mg Capsule 650 mg PO Q4-6H PRN (Reason: Pain (Scale Score 1-3)) melatonin 5 mg Tablet 5 mg PO HS polyethylene glycol 3350 [Miralax] 17 gram Powder In Packet 17 g PO BID Qty: 30 0RF magnesium oxide 400 mg (241.3 mg magnesium) tablet 400 mg PO 1200 Novolin 70-30 FlexPen U-100 100 unit/mL (70-30) insulin pen 25 unit SUBCUT QAM metoprolol succinate [Toprol XL] 25 mg Tablet Extended Release 24 Hr 75 mg PO QAM Qty: 90 0RF gabapentin 100 mg capsule 100 mg PO BID Qty: 20 0RF nystatin 100,000 unit/gram Cream 1 applic TOPICAL BID Rx Instructions: APPLY TO BILAT BUTTOCKS, SACRUM, POSTERIOR THIGH levothyroxine 100 mcg tablet 100 mcg PO DAILY ipratropium-albuterol 0.5 mg-3 mg(2.5 mg base)/3 mL Solution For Nebulization 3 ml INHALATION Q4H PRN (Reason: Wheezing) aspirin 81 mg Tablet,Delayed Release (Dr/Ec) 81 mg PO QAM Qty: 30 0RF pravastatin 40 mg Tablet 40 mg PO HS multivit with min-folic acid 0.4 mg Tablet 1 tablet PO DAILY bupropion HCl 150 mg Tablet Extended Release 24 Hr 150 mg PO QAM Qty: 30 0RF amlodipine [Norvasc] 5 mg Tablet 5 mg PO DAILY Qty: 30 0RF ciprofloxacin HCl 500 mg Tablet 500 mg PO 0900,2000 Qty: 8 0RF sulfamethoxazole-trimethoprim 800-160 mg Tablet 1 tab PO Q12HR Qty: 8 0RF pantoprazole [Protonix] 40 mg tablet,delayed release (DR/EC) 40 mg PO QAM Qty: 30 0RF hydrocodone-acetaminophen 5-325 mg tablet 1 tablet PO Q8H PRN (Reason: Pain (Scale Score 4-6)) Qty: 5 0RF famotidine 20 mg tablet 20 mg PO QHS Qty: 30 0RF valsartan 40 mg tablet 40 mg PO DAILY Qty: 30 0RF Novolin 70-30 FlexPen U-100 100 unit/mL (70-30) insulin pen 15 unit SUBCUT 1700 Qty: 15 0RF Minerin Creme Cream 1 applic topical DAILY Qty: 113 0RF Rx Instructions: Bilateral lower extremity intact skin Follow-up/Referrals: Lawrence,MD Asael [Primary Care Provider] -
--- NOTE | 2024-02-08 06:52 | PC.NURSE ---
per karey from edp dr. wilson pt to stop infusion of sepsis protocol for normal saline. pt manual blood pressure 92/60. edp made aware. edp dr. wilson vorb 2L nS at 999mls/ bolus. edp verbalized initation of central line.
[2024-02-08] MEDS: SODIUM CHLORIDE 0.9% IV 2,000 ML 999 ML IV CONT (06:56)
[2024-02-08 07:20] LABS: Free T4 Free Thyroxine Reflex 1.78 ng/dL (0.78-2.19)
[2024-02-08] MEDS: MIDAZOLAM HCL (*CRX) 2 MG/2 ML VIAL 5 MG IV PUSH (07:52)
--- NOTE | 2024-02-08 08:31 | ECG_ITS ---
Test Date: 2024-02-08 08:39:17 Measurements Intervals [place] Rate: 93 P: 0 TX: 0 QRS: 64 QRSD: 93 T: 20 QT: 358 QTc: 447 Interpretive Statements ATRIAL FIBRILLATION ANTEROSEPTAL MYOCARDIAL INFARCTION , OF INDETERMINATE AGE [40+ ms Q WAVE IN V1-V4] Compared to ECG 02/08/2024 05:10:53 No significant changes Electronically Signed On 02-08-2024 12:53:52 PHARMACY ASSISTANT by Jared Andre M.D.
[2024-02-08] MEDS: NOREPINEPHRINE 8 MG/D5W 250 ML 8 MG/250 ML BAG 9.38 MG IV CONT (08:41)
[2024-02-08 08:50] LABS: Troponin I 0.012 ng/mL (0.000-0.034)
[2024-02-08 08:52] LABS: Total Triiodothyronine (T3) 0.73 NG/ML (0.97-1.69)
--- NOTE | 2024-02-08 08:59 | PC.NURSE ---
Per RONNIE Samuels pt received 1 L NS from EMS, 1 L NS when he arrived and 2 L NS as well. Pt received 4 L NS in total.
--- NOTE | 2024-02-08 10:35 | WPDCNINT ---
Assessment and Plan Assessment and plan (1) Sepsis: Code(s): A41.9 - Sepsis, unspecified organism Status: Acute Assessment and Plan: Secondary to UTI CT scan reviewed He has wounds on his skin but they do not appear to be infected Urine and blood cultures IV fluids Levophed Empiric vancomycin and meropenem (2) JHONY (acute kidney injury): Code(s): N17.9 - Acute kidney failure, unspecified Status: Acute Assessment and Plan: Likely secondary to sepsis and hypotension. Check CK level and urine electrolytes Consult nephrology if does not improve with IV fluids CT scan shows stents in place with no hydronephrosis (3) Encephalopathy: Code(s): G93.40 - Encephalopathy, unspecified Status: Acute Assessment and Plan: Head CT negative. 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 Has drop in hemoglobin since last admission. He is on anticoagulation will be held IV Protonix Consult GI Monitor hemoglobin and transfuse if needed npo (7) Anemia: Code(s): D64.9 - Anemia, unspecified Status: Acute Assessment and Plan: See above (8) Hypothyroidism: Code(s): E03.9 - Hypothyroidism, unspecified Status: Chronic Assessment and Plan: Change levothyroxine to IV (9) Acute respiratory failure: Code(s): J96.00 - Acute respiratory failure, unspecified whether with hypoxia or hypercapnia Status: Acute Assessment and Plan: Patient was placed on BiPAP as he became obtunded after receiving Versed Now he has poor arousable and moving and pulling on his mask I will transition him back to nasal cannula and monitor CT scan and chest x-ray ABG reviewed Plan DVT prophylaxis -SCD Stress ulcer prophylaxis -PPI Nutrition - npo Code Status -patient is DNI as per his court documentation from long-term. ER physician tried to get hold off patient's but was unable to despite multiple times. The number listed in the chart was called and voicemail was left. Patient's vital later arrived at bedside and I confirmed code status and she stated the patient is okay with intubation for a brief period of time but would not want prolonged mechanical ventilation. Patient's code status was changed to full code in chart. Total Critical Care Time - 40 minutes Due to a high probability of clinically significant, life threatening deterioration, the patient required my highest level of preparedness to intervene emergently and I personally spent this critical care time directly and personally managing the patient. This critical care time included obtaining a history; examining the patient; pulse oximetry; ordering and review of studies; arranging urgent treatment with development of a management plan; evaluation of patient's response to treatment; frequent reassessment; and discussions with other providers. It was exclusive of separately billable procedures and treating other patients and teaching time. Please see Assessment and Plan section and the rest of the note for further information on patient assessment and treatment Podiatric Technician Consult Note Consult date: 02/08/24 Reason for consult: Hypotension, encephalopathy HPI: Taye Marrero Jr. is a 68 year old male with past medical history of dementia proximal AFib diastolic congestive heart failure diabetes mellitus, hypothyroidism, hypertension, obstructive sleep apnea, chronic venous stasis and dermatitis, indwelling Coats catheter, kidney stones, chronic left heel wound with history of osteomyelitis, morbid obesity, history of GI bleed, bilateral hydronephrosis from right ureteral stone status post stenting will discharge from [facility] in November of this year after treatment for E coli bacteremia, UTI, hydronephrosis, JHONY was sent back to ER from long-term with altered mental status. Patient was confused agitated and hallucinating. He was unable to provide any meaningful history. He had to be physically restrained as he was pulling out lines and tubes. Workup in the ER showed patient had elevated WBC at 12.4 drop in hemoglobin 8.7 ABG 7.32/40/84/20 UA suggestive of UTI UDS negative PCR for influenza RSV and COVID were negative Potassium 5.5 creatinine 1.6 BUN 61 BNP 2600 TSH 4.[address] showed chronic atrophy CT abdomen as reported mention below Patient was diagnosed with sepsis and given IV fluids. Which led to improvement in blood pressure. Patient also was agitated and was given Versed to allow CT scan to be done. Patient became drowsy and was placed on BiPAP. Patient is DNI as per his code status documentation from long-term. Patient is now being admitted to ICU for further evaluation management. History was obtained from chart review and sign-out from ER physician. Patient is unable to provide any meaningful history. No family is available at this time. Review of Systems Review of Systems: ROS unobtainable: Yes unobtainable due to medical condition and unobtainable due to mental status [facility] Past Medical History Medical History Choledocholithiasis (05/2022) Chronic hyponatremia Chronic indwelling Coats catheter Chronic obstructive pulmonary disease Chronic osteomyelitis of left foot Chronic venous insufficiency Depression Diastolic congestive heart failure E coli bacteremia Gastroesophageal reflux disease Hyperlipidemia Hypertension Hypothyroidism Insulin dependent diabetes mellitus Kidney stones Morbid obesity Obstructive sleep apnea Non-compliant with CPAP. Paroxysmal atrial fibrillation Peripheral neuropathy Surgical History Surgical History History of abdominal surgery The patient has a large scar in the right lower abdomen just above the right groin and on palpation of his abdomen he has what feels like mesh that extends from side to side and has a course rough texture it also extends from just under the umbilicus to a couple of inches above the pubis History of appendectomy History of back surgery History of cataract extraction History of hemorrhoidectomy History of tonsillectomy and adenoidectomy Family History Family History Sibling Family history of heart disease in male family member before age 55 Family history of diabetes mellitus in first degree relative Patient's brother is Family history of obesity Hypertension Mother Family history of arthritis Patient's mother is Father Patient's father is Social History Social History Social History: Surrogate medical decision maker: Marlys Marrero, . Code status: Full code. Smoking packs per day: 1.5 Smoking cigarettes per day: 30.0 Years smoked: 15 Smoking pack-years: 22.50 Smoking status: Former smoker Second hand tobacco smoke exposure: Yes Alcohol intake: never Substance use: never Substance use type: unknown Lack of Transportation: No Lack of Food: Never True Current Housing: I Have Housing Concerned About Future Housing: No Difficulty Paying Gas/Electric Bills: No Difficulty Paying for Meds: No Currently Unemployed: No Education: High School Diploma/GED Difficulty w/ Childcare or Family Care: No Living arrangements: long-term Additional living arrangements comments: Resident at [facility]. to Marlys. They have 2 sons. He is nonambulatory and depends on a [place] lift for transfer. 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 Spiritual care concerns: No Agree to blood products: Yes Meds Home Medications and Allergies Home Medications Medication Instructions Recorded Confirmed Type ipratropium 0.5 mg-albuterol 3 mg 3 ml inhalation Q4H PRN Wheezing 02/15/21 02/08/24 History (2.5 mg base)/3 mL nebulization soln levothyroxine 100 mcg tablet 100 mcg PO DAILY 02/15/21 02/08/24 History pravastatin 40 mg tablet 40 mg PO HS 12/08/21 02/08/24 History multivitamin with minerals-folic 1 tablet PO DAILY 03/02/22 02/08/24 History acid 0.4 mg tablet apixaban 5 mg tablet (Eliquis) 5 mg PO Q12HR #60 tabs 07/01/22 02/08/24 Rx acetaminophen 325 mg capsule 650 mg PO Q4-6H PRN Pain (Scale 09/10/22 02/08/24 History (Tylenol) Score 1-3) sennosides 8.6 mg-docusate sodium 1 tablet PO BID 09/10/22 02/08/24 History 50 mg tablet (Senna Plus) melatonin 5 mg tablet 5 mg PO HS 03/10/23 02/08/24 History bupropion HCl 150 mg 24 hr tablet, 150 mg PO QAM #30 tabs 05/23/23 02/08/24 Rx extended release polyethylene glycol 3350 17 gram 17 g PO BID #30 ea 06/26/23 02/08/24 Rx oral powder packet (Miralax) insulin NPH-regular 70-30 U-100 25 unit subcut QAM 08/07/23 02/08/24 History insulin 100 unit/mL subcutaneous pen (Novolin 70-30 FlexPen U-100 Insulin) magnesium oxide 400 mg (241.3 mg 400 mg PO DAILY 08/07/23 02/08/24 History magnesium) tablet metoprolol succinate 25 mg 75 mg PO QAM #90 tabs 08/18/23 02/08/24 Rx tablet,extended release 24 hr (Toprol XL) nystatin 100,000 unit/gram topical 1 applic topical BID 11/30/23 02/08/24 History cream amlodipine 5 mg tablet (Norvasc) 5 mg PO DAILY #30 tabs 12/27/23 02/08/24 Rx famotidine 20 mg tablet 20 mg PO QHS #30 tabs 12/27/23 02/08/24 Rx insulin NPH-regular 70-30 U-100 15 unit (0.15 mL) subcut 1700 #15 12/27/23 02/08/24 Rx insulin 100 unit/mL subcutaneous mL pen (Novolin 70-30 FlexPen U-100 Insulin) lanolin alcohols-mineral 1 applic topical DAILY #113 grams 12/27/23 02/08/24 Rx oil-w.petrolatum-ceresin topical cream (Minerin Creme topical) pantoprazole 40 mg tablet,delayed 40 mg PO QAM #30 tabs 12/27/23 02/08/24 Rx release (Protonix) valsartan 40 mg tablet 40 mg PO DAILY #30 tabs 12/27/23 02/08/24 Rx brexpiprazole 0.5 mg tablet 0.5 mg PO DAILY 02/08/24 02/08/24 History (Rexulti) gabapentin 100 mg capsule 300 mg PO TID 02/08/24 02/08/24 History lisinopril 10 mg tablet 10 mg PO DAILY 02/08/24 02/08/24 History trazodone 50 mg tablet 75 mg PO HS 02/08/24 02/08/24 History Allergies Allergy/AdvReac Type Severity Reaction Status Date / Time No Known Allergies Allergy Verified 12/22/23 12:21 Vital Signs Vital Signs - 24 hr 02/08/24 04:44 02/08/24 06:04 02/08/24 06:04 Temperature 34.9 C L Pulse Rate 70 60 Respiratory Rate 18 Blood Pressure 95/76 L Pulse Oximetry 98 90 Oxygen Delivery Room Air Nasal Cannula Oxygen Flow Rate 6 02/08/24 06:01 02/08/24 06:16 02/08/24 06:17 Temperature 34.9 C L 34.9 C L Pulse Rate Respiratory Rate Blood Pressure Pulse Oximetry 94 Oxygen Delivery Nasal Cannula Oxygen Flow Rate 6 02/08/24 06:33 02/08/24 06:00 02/08/24 06:40 Temperature 35.2 C L 34.8 C L Pulse Rate 76 81 Respiratory Rate 12 22 H Blood Pressure 92/60 L Pulse Oximetry 91 93 Oxygen Delivery Oxygen Flow Rate 02/08/24 06:41 02/08/24 06:46 02/08/24 07:01 Temperature 35.1 C L 35.9 C L Pulse Rate Respiratory Rate Blood Pressure Pulse Oximetry 94 Oxygen Delivery Nasal Cannula Oxygen Flow Rate 4 02/08/24 07:18 02/08/24 08:27 02/08/24 08:41 Temperature 35.8 C L Pulse Rate 76 86 Respiratory Rate 22 H 26 H Blood Pressure 124/90 90/45 L Pulse Oximetry 95 Oxygen Delivery BiPAP Oxygen Flow Rate 02/08/24 08:46 02/08/24 07:40 02/08/24 08:44 Temperature 36.2 C L 36.0 C L Pulse Rate 73 73 Respiratory Rate 19 Blood Pressure 83/52 L 83/52 L Pulse Oximetry 100 Oxygen Delivery Oxygen Flow Rate 02/08/24 08:07 02/08/24 08:15 02/08/24 08:29 Temperature 36.2 C L 36.2 C L 36.2 C L Pulse Rate 110 H 102 H 85 Respiratory Rate 22 H 26 H 28 H Blood Pressure 86/53 L Pulse Oximetry 86 L 84 L 98 Oxygen Delivery Oxygen Flow Rate 02/08/24 08:30 02/08/24 08:51 02/08/24 09:10 Temperature 36.2 C L 36.0 C L 35.8 C L Pulse Rate 84 75 65 Respiratory Rate 28 H 18 17 Blood Pressure 101/52 L 97/58 L Pulse Oximetry 98 100 100 Oxygen Delivery Oxygen Flow Rate 02/08/24 08:54 02/08/24 08:56 02/08/24 09:02 Temperature 35.9 C L 35.9 C L 35.9 C L Pulse Rate 70 69 71 Respiratory Rate 20 16 16 Blood Pressure 101/52 L 110/55 L 99/60 L Pulse Oximetry 100 100 100 Oxygen Delivery Oxygen Flow Rate 02/08/24 09:16 02/08/24 09:21 02/08/24 09:26 Temperature 35.8 C L 35.8 C L 35.8 C L Pulse Rate 67 64 68 Respiratory Rate 17 17 15 Blood Pressure 103/60 98/53 L 106/55 L Pulse Oximetry 100 100 100 Oxygen Delivery Oxygen Flow Rate 02/08/24 09:27 02/08/24 09:30 02/08/24 09:31 Temperature 35.8 C L 35.8 C L 35.8 C L Pulse Rate 62 66 66 Respiratory Rate 16 17 17 Blood Pressure 104/85 Pulse Oximetry 100 100 100 Oxygen Delivery Oxygen Flow Rate 02/08/24 09:36 02/08/24 09:41 02/08/24 09:48 Temperature 35.8 C L 35.8 C L 35.8 C L Pulse Rate 66 64 66 Respiratory Rate 16 16 17 Blood Pressure 93/45 L 102/58 L Pulse Oximetry 100 100 100 Oxygen Delivery Oxygen Flow Rate 02/08/24 09:51 02/08/24 09:57 02/08/24 10:00 Temperature 35.8 C L 35.8 C L 35.8 C L Pulse Rate 64 60 61 Respiratory Rate 17 16 16 Blood Pressure 101/58 L 103/51 L Pulse Oximetry 100 100 100 Oxygen Delivery Oxygen Flow Rate 02/08/24 10:01 02/08/24 10:15 Temperature 35.8 C L 35.9 C L Pulse Rate 59 L 75 Respiratory Rate 19 13 Blood Pressure 99/55 L Pulse Oximetry 100 100 Oxygen Delivery Oxygen Flow Rate Exam Narrative: General: Pt is confused but agitated. He is on BiPAP, he moves all 4 extremities but does not follow any commands and tries to pull on BiPAP mask and lungs and tubes and tries to get out of bed. Lungs/Chest: Trachea central Clear BS B/L, No crackles or wheezing. Cardiac: RRR. Normal S1 S2. No murmurs Circulation: Feet are warm Abdomen: Normal bowel sounds. Morbidly Obese. Soft. NT. ND. There appears and mesh underlying the skin in the midline Extremities: Bilateral feet have edema. He has 2 superficial wounds on the lateral aspect of left leg. He also has a wound which does not appear infected on the left heel. He has chronic venous stasis changes and edema : Coats in place Neurologic: He is moving all 4 extremities, he is confused, he does not follow commands, he is trying to sit up in bed and trying to pull on BiPAP mask and lines PERRL Skin: See above Results Labs 02/08/24 11:45 02/08/24 05:33 Labs: Short CBC 02/08/24 Range/Units 05:33 WBC 12.4 H (4.5-10.0) K/mm3 Hgb 8.7 L D (14.0-18.0) g/dL Hct 28.5 L (42.0-52.0) % Plt Count 322 (150-375) k/mm3 BMP 02/08/24 05:33 Sodium 134 L Potassium 5.5 H Chloride 106 Carbon Dioxide 23 BUN 61 H D Creatinine 1.60 H Glucose 88 Calcium 9.5 Cardiac Enzymes 02/08/24 02/08/24 Range/Units 05:33 08:23 Troponin I < 0.012 0.012 (0.000-0.034) ng/mL Liver Function 02/08/24 Range/Units 05:33 Total Bilirubin 0.4 (0.2-1.3) mg/dL AST 16 L (17-59) U/L ALT 12 (6-50) U/L Alkaline Phosphatase 152 H (38-126) U/L Albumin 2.9 L (3.5-5.1) g/dL Urine 02/08/24 Range/Units 05:49 Urine Color Red H (Yellow) Urine Appearance Cloudy H (Clear) Urine pH 8.0 (5.0-9.0) Ur Specific [place] 1.018 (1.001-1.035) Urine Protein 3+ H (Negative) mg/dL Urine Glucose (UA) Negative (Negative) mg/dL Hospitalist MIPS Advance Care Plan I have confirmed that the patient's Advanced Care Plan is present, code status is documented, or surrogate decision maker is listed in patient medical record.: Yes Medication Reconciliation I have utilized all available resources to obtain, update and review the patients current medications (includes all prescriptions, OTC, herbals, cannabis, and nutritional supplements).: Yes
--- NOTE | 2024-02-08 11:03 | ADMGEN ---
This patient, Taye Marrero Jr., was admitted to Intensive Care Unit-1. Patient/family oriented to hospital policies and general routines including ID bracelet, bed and alarms, visiting hours, pain management, procedures, bathroom and other care routines, personal items, smoking policy, room service/diet, and visiting hours. Information on how to activate the Rapid Response Team has been discussed. Patient/Family are encouraged to report perceived risks to care and to ask questions if they do not understand what they are told or what they should do.
[2024-02-08 11:50] LABS: Hemoglobin 8.4 g/dL (14.0-18.0)
[2024-02-08 11:59] LABS: Glucose Point of Care 108 mg/dl (65-105)
[2024-02-08] MEDS: LACTATED RINGERS 1,000 ML 75 ML IV CONT (12:08)
--- NOTE | 2024-02-08 12:55 | P.HP_ITS ---
H&P: HPI History of Present Illness Date/Time: 02/08/24 13:05 Chief Complaint: Confused and agitated. Narrative: This is a 68-year-old male with dementia, paroxysmal atrial fibrillation, diastolic congestive heart failure, insulin-dependent diabetes, hypothyroidism, hypertension, untreated obstructive sleep apnea, chronic venous stasis dermatitis, indwelling Coats catheter, kidney stones, chronic left heel wound with history of osteomyelitis of the left calcaneus with previous cultures growing out Pseudomonas and MRSA, and other comorbidities who presented to the emergency department via EMS from [facility] for evaluation increased confusion and agitation. He is currently on a dexmedetomidine drip and is somnolent but arousable though is not able to provide any meaningful history. As such a majority the following is obtained via a review of his EMR as well as information provided by his . Transferring facility did not provide any significant insight when they transferred the patient to the ED aside from the fact that he was more confused and hallucinating. There were no reports of recent falls or illnesses. In the ED: Vital signs on arrival include a temperature of 94.8?, blood pressure 90 5.7, pulse 70, respiratory 18, SpO2 98%. Labs were significant for a WBC count of 12.4, hemoglobin 8.7, sodium 134, potassium 5.5, BUN 61, creatinine 1.60, lactic acid 1.1, proBNP 2600, troponin less than 0.012, albumin 2.9. Urinalysis was positive for 3+ protein, 3+ blood, 3+ leukocyte esterase, greater than 100 RBC and WBC, 3+ leukocyte esterase, nitrates, and 4+ bacteria. Head CT showed no significant abnormality though exam limited due to motion artifact. CT of the chest, abdomen, and pelvis was also limited by motion and showed small right pleural effusion, questionable mild pulmonary edema, possible cystitis, cholelithiasis, constipation, and bilateral ureteral stents with relatively stable right renal stones with no definite hydronephrosis. Chest x-ray showed mild bibasilar pulmonary edema and cardiomegaly. He was started on meropenem and vancomycin and he was given a 3 L normal saline bolus. He remained hypotensive despite this and a central line was inserted and he is currently on norepinephrine. He was admitted to the ICU for further treatment. Review of Systems Review of Systems: Unable to obtain accurately given clinical condition as above. [facility] Past Medical History Medical History Choledocholithiasis (05/2022) Chronic hyponatremia Chronic indwelling Coats catheter Chronic obstructive pulmonary disease Chronic osteomyelitis of left foot Chronic venous insufficiency Depression Diastolic congestive heart failure E coli bacteremia Gastroesophageal reflux disease Hyperlipidemia Hypertension Hypothyroidism Insulin dependent diabetes mellitus Kidney stones Morbid obesity Obstructive sleep apnea Non-compliant with CPAP. Paroxysmal atrial fibrillation Peripheral neuropathy Surgical History Surgical History History of abdominal surgery The patient has a large scar in the right lower abdomen just above the right groin and on palpation of his abdomen he has what feels like mesh that extends from side to side and has a course rough texture it also extends from just under the umbilicus to a couple of inches above the pubis History of appendectomy History of back surgery History of cataract extraction History of hemorrhoidectomy History of tonsillectomy and adenoidectomy Family History Family History Sibling Family history of heart disease in male family member before age 55 Family history of diabetes mellitus in first degree relative Patient's brother is Family history of obesity Hypertension Mother Family history of arthritis Patient's mother is Father Patient's father is Social History Social History Social History: Surrogate medical decision maker: Marlys Marrero, . Code status: Full code. Smoking packs per day: 1.5 Smoking cigarettes per day: 30.0 Years smoked: 15 Smoking pack-years: 22.50 Smoking status: Former smoker Second hand tobacco smoke exposure: Yes Alcohol intake: never Substance use: never Substance use type: does not use Lack of Transportation: No Lack of Food: Never True Current Housing: I Have Housing Concerned About Future Housing: No Difficulty Paying Gas/Electric Bills: No Difficulty Paying for Meds: No Currently Unemployed: No Education: High School Diploma/GED Difficulty w/ Childcare or Family Care: No Living arrangements: residential Additional living arrangements comments: Resident at [facility]. to Marlys. They have 2 sons. He is nonambulatory and depends on a [place] lift for transfer. 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 Spiritual care concerns: No Agree to blood products: Yes Meds Home Medications and Allergies Home Medications Medication Instructions Recorded Confirmed Type ipratropium 0.5 mg-albuterol 3 mg 3 ml inhalation Q4H PRN Wheezing 02/15/21 02/08/24 History (2.5 mg base)/3 mL nebulization soln levothyroxine 100 mcg tablet 100 mcg PO DAILY 02/15/21 02/08/24 History pravastatin 40 mg tablet 40 mg PO HS 12/08/21 02/08/24 History multivitamin with minerals-folic 1 tablet PO DAILY 03/02/22 02/08/24 History acid 0.4 mg tablet apixaban 5 mg tablet (Eliquis) 5 mg PO Q12HR #60 tabs 07/01/22 02/08/24 Rx acetaminophen 325 mg capsule 650 mg PO Q4-6H PRN Pain (Scale 09/10/22 02/08/24 History (Tylenol) Score 1-3) sennosides 8.6 mg-docusate sodium 1 tablet PO BID 09/10/22 02/08/24 History 50 mg tablet (Senna Plus) melatonin 5 mg tablet 5 mg PO HS 03/10/23 02/08/24 History bupropion HCl 150 mg 24 hr tablet, 150 mg PO QAM #30 tabs 05/23/23 02/08/24 Rx extended release polyethylene glycol 3350 17 gram 17 g PO BID #30 ea 06/26/23 02/08/24 Rx oral powder packet (Miralax) insulin NPH-regular 70-30 U-100 25 unit subcut QAM 08/07/23 02/08/24 History insulin 100 unit/mL subcutaneous pen (Novolin 70-30 FlexPen U-100 Insulin) magnesium oxide 400 mg (241.3 mg 400 mg PO DAILY 08/07/23 02/08/24 History magnesium) tablet metoprolol succinate 25 mg 75 mg PO QAM #90 tabs 08/18/23 02/08/24 Rx tablet,extended release 24 hr (Toprol XL) nystatin 100,000 unit/gram topical 1 applic topical BID 11/30/23 02/08/24 History cream amlodipine 5 mg tablet (Norvasc) 5 mg PO DAILY #30 tabs 12/27/23 02/08/24 Rx famotidine 20 mg tablet 20 mg PO QHS #30 tabs 12/27/23 02/08/24 Rx insulin NPH-regular 70-30 U-100 15 unit (0.15 mL) subcut 1700 #15 12/27/23 02/08/24 Rx insulin 100 unit/mL subcutaneous mL pen (Novolin 70-30 FlexPen U-100 Insulin) lanolin alcohols-mineral 1 applic topical DAILY #113 grams 12/27/23 02/08/24 Rx oil-w.petrolatum-ceresin topical cream (Minerin Creme topical) pantoprazole 40 mg tablet,delayed 40 mg PO QAM #30 tabs 12/27/23 02/08/24 Rx release (Protonix) valsartan 40 mg tablet 40 mg PO DAILY #30 tabs 12/27/23 02/08/24 Rx brexpiprazole 0.5 mg tablet 0.5 mg PO DAILY 02/08/24 02/08/24 History (Rexulti) gabapentin 100 mg capsule 300 mg PO TID 02/08/24 02/08/24 History lisinopril 10 mg tablet 10 mg PO DAILY 02/08/24 02/08/24 History trazodone 50 mg tablet 75 mg PO HS 02/08/24 02/08/24 History Allergies Allergy/AdvReac Type Severity Reaction Status Date / Time No Known Allergies Allergy Verified 12/22/23 12:21 Vital Signs Vital Signs - 24 hr 02/08/24 04:44 02/08/24 06:04 02/08/24 06:04 Temperature 94.8 F L Pulse Rate 70 60 Respiratory Rate 18 Blood Pressure 95/76 L Pulse Oximetry 98 90 Oxygen Delivery Room Air Nasal Cannula Oxygen Flow Rate 6 Fraction of Inspired Oxygen 02/08/24 06:01 02/08/24 06:16 02/08/24 06:17 Temperature 94.8 F L 94.8 F L Pulse Rate Respiratory Rate Blood Pressure Pulse Oximetry 94 Oxygen Delivery Nasal Cannula Oxygen Flow Rate 6 Fraction of Inspired Oxygen 02/08/24 06:33 02/08/24 06:00 02/08/24 06:40 Temperature 95.4 F L 94.7 F L Pulse Rate 76 81 Respiratory Rate 12 22 H Blood Pressure 92/60 L Pulse Oximetry 91 93 Oxygen Delivery Oxygen Flow Rate Fraction of Inspired Oxygen 12/09/24 06:41 02/08/24 06:46 02/08/24 07:01 Temperature 95.1 F L 96.6 F L Pulse Rate Respiratory Rate Blood Pressure Pulse Oximetry 94 Oxygen Delivery Nasal Cannula Oxygen Flow Rate 4 Fraction of Inspired Oxygen 02/08/24 07:18 02/08/24 08:27 02/08/24 08:41 Temperature 96.5 F L Pulse Rate 76 86 Respiratory Rate 22 H 26 H Blood Pressure 124/90 90/45 L Pulse Oximetry 95 Oxygen Delivery BiPAP Oxygen Flow Rate Fraction of Inspired Oxygen 02/08/24 08:46 02/08/24 07:40 02/08/24 08:44 Temperature 97.1 F L 96.8 F L Pulse Rate 73 73 Respiratory Rate 19 Blood Pressure 83/52 L 83/52 L Pulse Oximetry 100 Oxygen Delivery Oxygen Flow Rate Fraction of Inspired Oxygen 02/08/24 08:07 02/08/24 08:15 02/08/24 08:29 Temperature 97.2 F L 97.2 F L 97.1 F L Pulse Rate 110 H 102 H 85 Respiratory Rate 22 H 26 H 28 H Blood Pressure 86/53 L Pulse Oximetry 86 L 84 L 98 Oxygen Delivery Oxygen Flow Rate Fraction of Inspired Oxygen 02/08/24 08:30 02/08/24 08:51 02/08/24 09:10 Temperature 97.1 F L 96.8 F L 96.5 F L Pulse Rate 84 75 65 Respiratory Rate 28 H 18 17 Blood Pressure 101/52 L 97/58 L Pulse Oximetry 98 100 100 Oxygen Delivery Oxygen Flow Rate Fraction of Inspired Oxygen 02/08/24 08:54 02/08/24 08:56 02/08/24 09:02 Temperature 96.7 F L 96.7 F L 96.6 F L Pulse Rate 70 69 71 Respiratory Rate 20 16 16 Blood Pressure 101/52 L 110/55 L 99/60 L Pulse Oximetry 100 100 100 Oxygen Delivery Oxygen Flow Rate Fraction of Inspired Oxygen 02/08/24 09:16 02/08/24 09:21 02/08/24 09:26 Temperature 96.5 F L 96.5 F L 96.5 F L Pulse Rate 67 64 68 Respiratory Rate 17 17 15 Blood Pressure 103/60 98/53 L 106/55 L Pulse Oximetry 100 100 100 Oxygen Delivery Oxygen Flow Rate Fraction of Inspired Oxygen 02/08/24 09:27 02/08/24 09:30 02/08/24 09:31 Temperature 96.5 F L 96.5 F L 96.5 F L Pulse Rate 62 66 66 Respiratory Rate 16 17 17 Blood Pressure 104/85 Pulse Oximetry 100 100 100 Oxygen Delivery Oxygen Flow Rate Fraction of Inspired Oxygen 02/08/24 09:36 02/08/24 09:41 02/08/24 09:48 Temperature 96.5 F L 96.5 F L 96.5 F L Pulse Rate 66 64 66 Respiratory Rate 16 16 17 Blood Pressure 93/45 L 102/58 L Pulse Oximetry 100 100 100 Oxygen Delivery Oxygen Flow Rate Fraction of Inspired Oxygen 02/08/24 09:51 02/08/24 09:57 02/08/24 10:00 Temperature 96.5 F L 96.5 F L 96.5 F L Pulse Rate 64 60 61 Respiratory Rate 17 16 16 Blood Pressure 101/58 L 103/51 L Pulse Oximetry 100 100 100 Oxygen Delivery Oxygen Flow Rate Fraction of Inspired Oxygen 02/08/24 10:01 02/08/24 10:15 02/08/24 11:08 Temperature 96.5 F L 96.6 F L Pulse Rate 59 L 75 Respiratory Rate 19 13 24 H Blood Pressure 99/55 L Pulse Oximetry 100 100 97 Oxygen Delivery BiPAP Oxygen Flow Rate Fraction of Inspired Oxygen 02/08/24 10:40 02/08/24 10:50 02/08/24 11:08 Temperature Pulse Rate Respiratory Rate Blood Pressure Pulse Oximetry 100 98 97 Oxygen Delivery BiPAP BiPAP BiPAP Oxygen Flow Rate Fraction of Inspired Oxygen 100 80 60 02/08/24 11:30 02/08/24 11:40 02/08/24 11:50 Temperature Pulse Rate 85 84 78 Respiratory Rate Blood Pressure 109/81 103/88 115/95 H Pulse Oximetry Oxygen Delivery Oxygen Flow Rate Fraction of Inspired Oxygen 02/08/24 11:37 02/08/24 12:19 02/08/24 12:00 Temperature 96.7 F L 96.7 F L 96.7 F L Pulse Rate 82 85 Respiratory Rate 20 17 Blood Pressure 109/81 97/84 L Pulse Oximetry 92 92 Oxygen Delivery Oxygen Flow Rate Fraction of Inspired Oxygen 02/08/24 12:00 02/08/24 11:53 Temperature Pulse Rate 84 78 Respiratory Rate Blood Pressure 97/84 L 115/95 H Pulse Oximetry Oxygen Delivery Oxygen Flow Rate Fraction of Inspired Oxygen Exam Narrative: General:?Ill-appearing male in the semi-Berry position in bed. Weight: 125.3 kg. BMI: 35.5. HEENT:??PERRL, EOMI. Right eye dysconjugate gaze. Sclera anicteric. Conjunctiva mildly injected. Tacky mucous membranes. Poor dental hygiene. Neck:??Supple. Exam limited due to neck circumference. No obvious JVD or lymphadenopathy. Respiratory:?Respirations are nonlabored and he seems in no distress. Lung sounds diminished due to body habitus and poor effort. Cardiovascular:?Irregularly irregular rate and rhythm. Gastrointestinal:??Abdomen is soft and morbidly obese. He grimaces with palpation throughout the entire abdomen. No guarding or obvious rebound tenderness. Skin:?Warm and dry. Chronic hyperpigmentation and changes of stasis dermatitis of the lower legs with scabs, superficial skin tear, small ulcers, and scaly skin. There is a chronic wound on the left heel with a beefy red wound bed and a small amount of soft, yellowish tissue at the periphery. Toenails are thick and yellow. Hands and feet are well perfused with normal capillary refill. Genitourinary: Coats catheter in place draining pink-tinged urine. Extremities:??No cyanosis or clubbing. Chronic pitting and nonpitting edema of the lower legs. Radial pulses palpable. Pedal pulses diminished. Neurological: He is somnolent but arousable. He is alert to name. He does not attempt to answer questions or follow commands. Psychiatric:?Chronically confused. Somnolent but arousable on dexmedetomidine drip. Moans frequently. H&P: Results Labs Labs: Short CBC 02/08/24 02/08/24 Range/Units 05:33 11:45 WBC 12.4 H (4.5-10.0) K/mm3 Hgb 8.7 L D 8.4 L (14.0-18.0) g/dL Hct 28.5 L 27.0 L (42.0-52.0) % Plt Count 322 (150-375) k/mm3 [facility] 02/08/24 05:33 Sodium 134 L Potassium 5.5 H Chloride 106 Carbon Dioxide 23 BUN 61 H D Creatinine 1.60 H Glucose 88 Calcium 9.5 Cardiac Enzymes 02/08/24 02/08/24 Range/Units 05:33 08:23 Troponin I < 0.012 0.012 (0.000-0.034) ng/mL Liver Function 02/08/24 Range/Units 05:33 Total Bilirubin 0.4 (0.2-1.3) mg/dL AST 16 L (17-59) U/L ALT 12 (6-50) U/L Alkaline Phosphatase 152 H (38-126) U/L Albumin 2.9 L (3.5-5.1) g/dL Urine 02/08/24 Range/Units 05:49 Urine Color Red H (Yellow) Urine Appearance Cloudy H (Clear) Urine pH 8.0 (5.0-9.0) Ur Specific [place]y 1.018 (1.001-1.035) Urine Protein 3+ H (Negative) mg/dL Urine Glucose (UA) Negative (Negative) mg/dL Imaging Chest X-Ray 02/08/24 06:44 Impression: Mild bibasilar pulmonary edema. Cardiomegaly. Head CT 02/08/24 08:08 Impression: No significant abnormality identified. Exam somewhat degraded by motion artifact. Atrophy and chronic white matter changes, as above. Chest/Abdomen/Pelvis CT 02/08/24 08:09 Impression: Exam degraded by motion artifact. Small right pleural effusion. Right paratracheal lymphadenopathy, nonspecific. Correlate for reactive/inflammatory nodes versus any possibility of lymphoma or metastatic disease. Questionable mild pulmonary edema versus motion artifact. Possible cystitis despite Coats catheter. Correlate with urinalysis. Cholelithiasis. Constipation. Bilateral ureteral stents with relatively stable right renal stones. No definite hydronephrosis. Assessment and Plan Assessment and plan (1) Septic shock: Code(s): A41.9 - Sepsis, unspecified organism; R65.21 - Severe sepsis with septic shock Status: Acute (2) Urinary tract infection: Code(s): N39.0 - Urinary tract infection, site not specified Status: Acute (3) Acute kidney injury: Code(s): N17.9 - Acute kidney failure, unspecified Status: Acute (4) Hyperkalemia: Code(s): E87.5 - Hyperkalemia Status: Acute (5) Encephalopathy: Code(s): G93.40 - Encephalopathy, unspecified Status: Acute (6) Atrial fibrillation with rapid ventricular response: Code(s): I48.91 - Unspecified atrial fibrillation Status: Acute (7) Anemia: Code(s): D64.9 - Anemia, unspecified Status: Acute (8) Heme positive stool: Code(s): R19.5 - Other fecal abnormalities Status: Acute (9) Insulin dependent diabetes mellitus: Status: Chronic (10) MRSA nasal colonization: Code(s): Z22.322 - Carrier or suspected carrier of Methicillin resistant Staphylococcus aureus Status: Acute Plan The patient presented to the emergency department for evaluation of increasing confusion and hallucinations as detailed in HPI. Labs, imaging, EKG, and all reports were personally reviewed. He has underlying dementia and is not unusual for him to present to the ED with increasing confusion. Urinalysis is again grossly abnormal for which he has been started on empiric meropenem and vancomycin pending urine and blood cultures. Presumably this is the source of his septic shock. He is currently on norepinephrine due to sustained hypotension despite adequate IV fluid bolus. He has an acute kidney injury which is likely multifactorial in etiology to include sepsis, shock, and dehydration. Coats catheter is patent and draining without significant hydronephrosis on CT scan. Encephalopathy is likely related to underlying infection and metabolic derangements. Again he does have chronic underlying dementia and is not uncommon for him to present this way. Repeat BMP this evening to ensure that his potassium was improving. His hemoglobin is lower than what he typically runs and stool was Hemoccult positive; GI has been consulted. Heart rate has improved though he remains in AFib. Initiate sliding scale insulin, Accu-Cheks, and hypoglycemic protocol. MRSA nasal swab was positive and he has been started on Bactroban. His medications will be reviewed and resumed as appropriate. The patient's medical management will be taken over by the hospitalist team in a.m. Quality VTE Prophylaxis VTE prophylaxis: mechanical ordered If No VTE Prophylaxis Answer both mechanical and pharmacologic: Reason no pharmacologic proph: medical contraindication (drop in hemoglobin, heme-positive stool) Hospitalist MIPS Advance Care Plan I have confirmed that the patient's Advanced Care Plan is present, code status is documented, or surrogate decision maker is listed in patient medical record.: Yes Medication Reconciliation I have utilized all available resources to obtain, update and review the patients current medications (includes all prescriptions, OTC, herbals, cannabis, and nutritional supplements).: Yes Critical Care Time Critical Care Time: Yes Total Critical Care Time: 55 Attestation: Due to a high probability of clinically significant, life threatening deterioration, the patient required my highest level of preparedness to intervene emergently and I personally spent this critical care time directly and personally managing the patient. This critical care time included obtaining a history; examining the patient; pulse oximetry; ordering and review of studies; arranging urgent treatment with development of a management plan; evaluation of patient's response to treatment; frequent reassessment; and discussions with other providers. It was exclusive of separately billable procedures and treating other patients and teaching time. Please see Assessment and Plan section and the rest of the note for further information on patient assessment and treatment.
[2024-02-08] MEDS: dexmedeTOMIDine 400 MCG/100 ML 400 MCG/100 ML BAG 15.45 MCG IV CONT (13:08)
[2024-02-08 13:13] LABS: MRSA (PCR) DETECTED (NOT DETECTE)
--- NOTE | 2024-02-08 14:32 | PC.NURSE ---
[facility] flyer was given to patient.
[2024-02-08 15:07] LABS: Glucose Point of Care 111 mg/dl (65-105)
[2024-02-08 17:55] LABS: Glucose Point of Care 130 mg/dl (65-105)
[2024-02-08 18:01] LABS: Hematocrit 26.2 % (42.0-52.0)
[2024-02-08] MEDS: dexmedeTOMIDine 400 MCG/100 ML 400 MCG/100 ML BAG 12.36 MCG IV CONT (19:22)
[2024-02-08] MEDS: MINERAL OIL/WHITE PETROLATUM OINTMENT 1 APPLIC EACH EYE (20:04)
[2024-02-08] MEDS: PANTOPRAZOLE SODIUM IV 40 MG VIAL IV PUSH (20:04)
[2024-02-08 20:21] LABS: Glucose Point of Care 133 mg/dl (65-105)
[2024-02-09] VITALS (26 sets, daily range): BP systolic 91–168; BP diastolic 55–148; PULSE 53–607; RESP 12–162; TEMP 36.4–36.8; O2SAT 91–99
[2024-02-09 01:14] LABS: Glucose Point of Care 138 mg/dl (65-105)
[2024-02-09] MEDS: dexmedeTOMIDine 400 MCG/100 ML 400 MCG/100 ML BAG 21.63 MCG IV CONT (01:54)
[2024-02-09] MEDS: LACTATED RINGERS 1,000 ML 75 ML IV CONT (01:56)
[2024-02-09] MEDS: MEROPENEM 1 GM/NS 100 ML 1 GM/100 ML BAG IVPB ×3 (06:00→22:19)
[2024-02-09] MEDS: dexmedeTOMIDine 400 MCG/100 ML 400 MCG/100 ML BAG 27.81 MCG IV CONT (06:00)
[2024-02-09] MEDS: LEVOTHYROXINE SODIUM INJ 100 MCG/5 ML VIAL 50 MCG IV PUSH (06:00)
[2024-02-09] MEDS: VANCOMYCIN 1,500 MG/NS 500 ML 1,500 MG/500 ML BAG 250 MG IVPB (06:00)
[2024-02-09 08:04] LABS: Basophils Percent Auto 0.4 % (0.2-1.2); Eosinophils Absolute Auto 0.1 K/mm3 (0-0.3); Eosinophils Percent Auto 0.9 % (0-4.4); Hemoglobin 8.3 g/dL (14.0-18.0); Immature Granulocyte Absolute 0.09 K/mm3 (0.00-0.031); Immature Granulocyte Percent A 1.1 % (0-0.5); Lymphocytes Absolute Auto 0.61 K/mm3 (0.9-3.2); Lymphocytes Percent Auto 7.2 % (18.3-44.2); Mean Corpuscular HGB Conc 30.7 g/dl (32-36); Mean Corpuscular Hemoglobin 24.7 pg (26-34); Mean Corpuscular Volume 80.4 fl (80-100); Mean Platelet Volume 9.4 fl (7.4-10.4); Monocytes Absolute Auto 0.4 K/mm3 (0.1-0.6); Monocytes Percent Auto 4.7 % (2.6-8.5); Neutrophils Absolute Auto 7.3 K/mm3 (1.3-6.7); Neutrophils Percent Auto 85.7 % (45.5-73.1); Platelet Count Result 263 k/mm3 (150-375); Red Blood Count 3.36 M/mm3 (4.6-6.20); Red Cell Distribution Width 18.1 % (11.5-14.5); White Blood Count 8.5 K/mm3 (4.5-10.0)
[2024-02-09] MEDS: PANTOPRAZOLE SODIUM IV 40 MG VIAL IV PUSH ×2 (08:13→21:18)
[2024-02-09] MEDS: MINERAL OIL/WHITE PETROLATUM OINTMENT 1 APPLIC EACH EYE ×2 (08:13→21:18)
[2024-02-09] MEDS: MUPIROCIN 2% OINT 22 GM TUBE 1 APPLIC EACH NARE ×2 (08:13→21:18)
[2024-02-09 08:50] LABS: Lactic Acid Reflex 1.1 mmol/L (0.7-2.0)
[2024-02-09 08:51] LABS: Alanine Aminotransferase 11 U/L (6-50); Albumin Level 2.4 g/dL (3.5-5.1); Alkaline Phosphatase 131 U/L (38-126); Anion Gap 8 mmol/L (4-12); Aspartate Amino Transferase 17 U/L (17-59); Bilirubin,Total 0.4 mg/dL (0.2-1.3); Blood Urea Nitrogen 55 mg/dL (9-20); Calcium 9.5 mg/dL (8.4-10.2); Carbon Dioxide 16 mmol/L (22-30); Chloride 113 mmol/L (98-107); Estimated CRCL calculation 56 ml/min; Estimated Glomerular Filt Rate 43; Glucose 174 mg/dL (65-110); Magnesium 2.1 mg/dL (1.6-2.3); Potassium 5.5 mmol/L (3.4-5.0); Sodium 137 mmol/L (137-145)
[2024-02-09 08:57] LABS: Glucose Point of Care 154 mg/dl (65-105)
--- NOTE | 2024-02-09 09:53 | P.CONGI_ITS ---
<Statement entered by Keven Ferreria MD - 02/09/24 17:24> I, Keven Ferreira MD, have provided a substantive portion of the care of this patient and discussed the patient with my Nurse Practitioner. I have reviewed any new relevant radiographic and laboratory results including medications. I agree with her documentation as noted below.?I personally performed the medical decision making and much of the history and exam for this encounter. he is admitted with sepsis probably source, bacteremia, jhony, acute encephalopathy and worsening anemia but did not notice overt gib. Also hematuria after his catheter was exchanged. Currently in icu treated for sepsis. Anemia probably multifactorial, CT in previous admission showed possible esophagitis but did not perform EGD since he was too sick. Likewise he is septic. I will prefer medical management with iv protonix and monitor for signs of bleeding, egd only is obvious bleeding. Will monitor. Assessment and Plan Assessment and plan (1) Anemia: Qualifiers: Anemia type: unspecified type Qualified Code(s): D64.9 - Anemia, unspecified Code(s): D64.9 - Anemia, unspecified Status: Acute (2) Sepsis: Code(s): A41.9 - Sepsis, unspecified organism Status: Acute (3) JHONY (acute kidney injury): Code(s): N17.9 - Acute kidney failure, unspecified Status: Acute (4) Encephalopathy: Code(s): G93.40 - Encephalopathy, unspecified Status: Acute (5) Atrial fibrillation with rapid ventricular response: Code(s): I48.91 - Unspecified atrial fibrillation Status: Chronic (6) GI bleed: Code(s): K92.2 - Gastrointestinal hemorrhage, unspecified Status: Acute (7) Acute respiratory failure: Code(s): J96.00 - Acute respiratory failure, unspecified whether with hypoxia or hypercapnia Status: Acute (8) Hematuria: Code(s): R31.9 - Hematuria, unspecified Status: Resolved (9) Acute hyperkalemia: Code(s): E87.5 - Hyperkalemia Status: Acute (10) Chronic indwelling Coats catheter: Code(s): Z97.8 - Presence of other specified devices Status: Acute (11) Open wound of both lower extremities: Qualifiers: Encounter type: initial encounter Qualified Code(s): S81.801A - Unspecified open wound, right lower leg, initial encounter; S81.802A - Unspecified open wound, left lower leg, initial encounter Code(s): S81.801A - Unspecified open wound, right lower leg, initial encounter; S81.802A - Unspecified open wound, left lower leg, initial encounter Status: Chronic (12) Decubitus skin ulcer: Code(s): L89.90 - Pressure ulcer of unspecified site, unspecified stage Status: Acute (13) Altered mental status: Code(s): R41.82 - Altered mental status, unspecified Status: Acute (14) Acute metabolic encephalopathy: Code(s): G93.41 - Metabolic encephalopathy Status: Acute Plan 1.Normocytic Anemia/Positive Occult Stool: Anemia is likely multifactorial due to sepsis (blood cx grew gram negative bacilli) , JHONY, hematuria, and possible GI blood loss. He does not have evidence of active GI bleed at this time. He is currently sedated and on Levophed. Concern with EGD and sedation if not emergent at this time. Last colonoscopy on 04/18/[address] Darden for family history of colon cancer showed a few small diverticula in the mid sigmoid colon. Never has had EGD. Admitted to [facility] in November of this year after treatment for E coli bacteremia, UTI, hydronephrosis, JHONY along with anemia, seen by our service for anemia, positive occult stool (06/2023) and CT noting extensive esophagitis but was too sick to have an EGD at time of admission. His hemoglobin last admission on 12/27/2023 was 13 and now on 02/08/2024 is 8.7, RDW is elevated as well. - Continue to monitor hemoglobin and hematocrit, transfuse if needed - Hold Eliquis - PPI IV every 12 hours recommended - If hemoglobin continues to drop and evidence of active GI bleed, will need to consider upper endoscopy to evaluate for upper GI bleed - Monitor at this time - Consider urology consult due to hematuria This report may have been done utilizing a voice recognition system. Attempts have been made to correct errors. However, there may be uncorrected grammatical, spelling, and recognition errors present. GI Consult Note Consult date/time: 02/09/24 09:53 Reason for consult: anemia and GI bleed HPI: This is sedated 68 year old male with a past medical surgical history of chronic hyponatremia, indwelling Coats catheter with kidney stones with history of stents, COPD, chronic osteomyelitis, chronic venous insufficiency, depression, diastolic CHF, GERD, HLD, HTN, hypothyroidism, diabetes, morbid obesity, JUN, AFib, peripheral neuropathy, abdominal surgery, appendectomy, and history of hemorrhoidectomy. He was admitted to [facility] in December 2023 after treatment for E coli bacteremia, UTI, hydronephrosis, JHONY along with anemia, seen by our service for anemia and CT noting extensive esophagitis but was unstable to have an EGD at time of admission due to illness. He presented to the ER on 02/08/2024 with complaints of altered mental status and hallucinations. GI consulted for anemia. He is currently admitted to the ICU and sedated for acute hypoxic respiratory failure after giving Versed for CT this admission sepsis acute kidney injury and encephalopathy due to infection. Preliminary blood culture grew Gram-negative bacilli, he is currently on meropenem and vancomycin. He is sedated and was at bedside for subjective history. I spoke to the bedside nurse and the nurse overnight reported 1 dark liquid stool. The nurse as of today has not reported any stooling. His denies any hematemesis or black stools at the [facility]. She states that he had been eating well by mouth. She states that he had not been complaining of any abdominal pain. He occasonally will need to take something for constipation at the [facility] on as needed basis per . Reviewing medication list, it does not appear he is on NSAIDs. denies that he has ever had EGD. No family history of GI malignancies. Denies hematuria in foleybag per that she had noticed. He is full code at this time. His does express her concern regarding if he is intubated, if he would be able to be extubated. ENDOSCOPY HISTORY: EGD: None COLONOSCOPY: 04/18/2016 Dr. Darden (family history of colon cancer) In the mid sigmoid colon, a few small diverticula were present 5 year repeat colonoscopy recommended LABS AND STOOL STUDIES: Na 134, potassium 5.5, BUN 61, CREAT 1.6 WBC 12.4, HGB 8.7, HCT 28.5, MCV 80.7, platelets 322, INR 1.9 Total bilirubin 0.4, AST 16, ALT 12, alkaline phosphatase 152 Lactic acid 1.1 troponins negative BNP 2600 albumin 2.9, lipase 49, TSH 4.72 Hemoglobin last admission on 12/27/2023 was 13 IMAGIN02/08/2024 CT Scan of the Chest, Abdomen, and Pelvis with Contrast: Exam degraded by motion artifact. Small right pleural effusion Right paratracheal lymphadenopathy, nonspecific. Correlate for reactive/inflammatory nodes versus any possibility of lymphoma or metastatic disease. Questionable mild pulmonary edema versus motion artifact. Possible cystitis despite Coats catheter. Correlate with urinalysis Cholelithiasis Constipation Bilateral ureteral stents with relatively stable right renal stones. No definite hydronephrosis. 02/08/2024 CT head without contrast: No significant abnormality identified. Exam somewhat degraded by motion artifact. Atrophy and chronic white matter changes. 02/08/2024 Portable chest x-ray: Mild bibasilar pulmonary edema. Cardiomegaly. 12/21/2023 CT Scan of the Chest, Abdomen, and Pelvis with Contrast: Findings compatible with extensive esophagitis. Correlate clinically. Multiple large right renal stones as well as 8 mm right mid ureteral stone. Moderate bilateral hydroureteronephrosis. Air in the right ureter. This could be iatrogenic versus pyelitis. Correlate clinically. Possible cystitis. Correlate with urinalysis. Cholelithiasis. [facility] Past Medical History Medical History Choledocholithiasis (05/2022) Chronic hyponatremia Chronic indwelling Coats catheter Chronic obstructive pulmonary disease Chronic osteomyelitis of left foot Chronic venous insufficiency Depression Diastolic congestive heart failure E coli bacteremia Gastroesophageal reflux disease Hyperlipidemia Hypertension Hypothyroidism Insulin dependent diabetes mellitus Kidney stones Morbid obesity Obstructive sleep apnea Non-compliant with CPAP. Paroxysmal atrial fibrillation Peripheral neuropathy Surgical History Surgical History History of abdominal surgery The patient has a large scar in the right lower abdomen just above the right groin and on palpation of his abdomen he has what feels like mesh that extends from side to side and has a course rough texture it also extends from just under the umbilicus to a couple of inches above the pubis History of appendectomy History of back surgery History of cataract extraction History of hemorrhoidectomy History of tonsillectomy and adenoidectomy Family History Family History Sibling Family history of heart disease in male family member before age 55 Family history of diabetes mellitus in first degree relative Patient's brother is Family history of obesity Hypertension Mother Family history of arthritis Patient's mother is Father Patient's father is Social History Social History Social History: Surrogate medical decision maker: Marlys Marrero, . Code status: Full code. Smoking packs per day: 1.5 Smoking cigarettes per day: 30.0 Years smoked: 15 Smoking pack-years: 22.50 Smoking status: Former smoker Second hand tobacco smoke exposure: Yes Alcohol intake: never Substance use: never Substance use type: does not use Lack of Transportation: No Lack of Food: Never True Current Housing: I Have Housing Concerned About Future Housing: No Difficulty Paying Gas/Electric Bills: No Difficulty Paying for Meds: No Currently Unemployed: No Education: High School Diploma/GED Difficulty w/ Childcare or Family Care: No Living arrangements: [facility] Additional living arrangements comments: Resident at [facility]. to Marlys. They have 2 sons. He is nonambulatory and depends on a [place] lift for transfer. 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 Spiritual care concerns: No Agree to blood products: Yes Meds Home Medications and Allergies Home Medications ?Medication ?Instructions ?Recorded ?Confirmed ?Type ipratropium 0.5 mg-albuterol 3 mg 3 ml inhalation Q4H PRN Wheezing 02/15/21 02/08/24 History (2.5 mg base)/3 mL nebulization soln levothyroxine 100 mcg tablet 100 mcg PO DAILY 02/15/21 02/08/24 History pravastatin 40 mg tablet 40 mg PO HS 12/08/21 02/08/24 History multivitamin with minerals-folic 1 tablet PO DAILY 03/02/22 02/08/24 History acid 0.4 mg tablet apixaban 5 mg tablet (Eliquis) 5 mg PO Q12HR #60 tabs 07/01/22 02/08/24 Rx acetaminophen 325 mg capsule 650 mg PO Q4-6H PRN Pain (Scale 09/10/22 02/08/24 History (Tylenol) Score 1-3) sennosides 8.6 mg-docusate sodium 1 tablet PO BID 09/10/22 02/08/24 History 50 mg tablet (Senna Plus) melatonin 5 mg tablet 5 mg PO HS 03/10/23 02/08/24 History bupropion HCl 150 mg 24 hr tablet, 150 mg PO QAM #30 tabs 05/23/23 02/08/24 Rx extended release polyethylene glycol 3350 17 gram 17 g PO BID #30 ea 06/26/23 02/08/24 Rx oral powder packet (Miralax) insulin NPH-regular 70-30 U-100 25 unit subcut QAM 08/07/23 02/08/24 History insulin 100 unit/mL subcutaneous pen (Novolin 70-30 FlexPen U-100 Insulin) magnesium oxide 400 mg (241.3 mg 400 mg PO DAILY 08/07/23 02/08/24 History magnesium) tablet metoprolol succinate 25 mg 75 mg (3 x 25 mg) PO QAM #90 tabs 08/18/23 02/08/24 Rx tablet,extended release 24 hr (Toprol XL) nystatin 100,000 unit/gram topical 1 applic topical BID 11/30/23 02/08/24 History cream amlodipine 5 mg tablet (Norvasc) 5 mg PO DAILY #30 tabs 12/27/23 02/08/24 Rx famotidine 20 mg tablet 20 mg PO QHS #30 tabs 12/27/23 02/08/24 Rx insulin NPH-regular 70-30 U-100 15 unit (0.15 mL) subcut 1700 #15 12/27/23 02/08/24 Rx insulin 100 unit/mL subcutaneous mL pen (Novolin 70-30 FlexPen U-100 Insulin) lanolin alcohols-mineral 1 applic topical DAILY #113 grams 12/27/23 02/08/24 Rx oil-w.petrolatum-ceresin topical cream (Minerin Creme topical) pantoprazole 40 mg tablet,delayed 40 mg PO QAM #30 tabs 12/27/23 02/08/24 Rx release (Protonix) valsartan 40 mg tablet 40 mg PO DAILY #30 tabs 12/27/23 02/08/24 Rx brexpiprazole 0.5 mg tablet 0.5 mg PO DAILY 02/08/24 02/08/24 History (Rexulti) gabapentin 100 mg capsule 300 mg PO TID 02/08/24 02/08/24 History lisinopril 10 mg tablet 10 mg PO DAILY 02/08/24 02/08/24 History trazodone 50 mg tablet 75 mg PO HS 02/08/24 02/08/24 History Allergies Allergy/AdvReac Type Severity Reaction Status Date / Time No Known Allergies Allergy Verified 12/22/23 12:21 Vital Signs Vital Signs - 24 hr 02/08/24 09:57 02/08/24 10:00 02/08/24 10:01 Temperature 96.5 F L 96.5 F L 96.5 F L Pulse Rate 60 61 59 L Respiratory Rate 16 16 19 Blood Pressure 103/51 L 99/55 L Pulse Oximetry 100 100 100 Oxygen Delivery Oxygen Flow Rate Fraction of Inspired Oxygen 02/08/24 10:15 02/08/24 10:40 02/08/24 10:50 Temperature 96.6 F L Pulse Rate 75 Respiratory Rate 13 Blood Pressure Pulse Oximetry 100 100 98 Oxygen Delivery BiPAP BiPAP Oxygen Flow Rate Fraction of Inspired Oxygen 100 80 02/08/24 11:08 02/08/24 11:08 02/08/24 11:30 Temperature Pulse Rate 85 Respiratory Rate 24 H Blood Pressure 109/81 Pulse Oximetry 97 97 Oxygen Delivery BiPAP BiPAP Oxygen Flow Rate Fraction of Inspired Oxygen 60 02/08/24 11:37 02/08/24 11:37 02/08/24 11:40 Temperature 96.7 F L Pulse Rate 82 84 Respiratory Rate 20 20 Blood Pressure 109/81 103/88 Pulse Oximetry 92 92 Oxygen Delivery BiPAP Oxygen Flow Rate Fraction of Inspired Oxygen 60 02/08/24 11:50 02/08/24 11:53 02/08/24 12:00 Temperature 96.7 F L Pulse Rate 78 78 85 Respiratory Rate 17 Blood Pressure 115/95 H 115/95 H 97/84 L Pulse Oximetry 92 Oxygen Delivery Oxygen Flow Rate Fraction of Inspired Oxygen 02/08/24 12:00 02/08/24 12:00 02/08/24 12:00 Temperature Pulse Rate 84 80 Respiratory Rate 22 H Blood Pressure 97/84 L Pulse Oximetry 96 Oxygen Delivery High Flow Therapy with Na Oxygen Flow Rate 6 Fraction of Inspired Oxygen 02/08/24 12:19 02/08/24 12:30 02/08/24 12:34 Temperature 96.7 F L 96.8 F L Pulse Rate 86 Respiratory Rate Blood Pressure Pulse Oximetry 96 Oxygen Delivery Oxygen Flow Rate Fraction of Inspired Oxygen 02/08/24 12:49 02/08/24 13:04 02/08/24 13:07 Temperature 97 F L 97.2 F L Pulse Rate 87 Respiratory Rate Blood Pressure 107/76 Pulse Oximetry Oxygen Delivery Oxygen Flow Rate Fraction of Inspired Oxygen 02/08/24 13:08 02/08/24 13:19 02/08/24 13:49 Temperature 97.5 F L 97.8 F Pulse Rate 96 Respiratory Rate 18 Blood Pressure Pulse Oximetry Oxygen Delivery Oxygen Flow Rate Fraction of Inspired Oxygen 02/08/24 14:00 02/08/24 14:00 02/08/24 14:19 Temperature 98.1 F 98.1 F Pulse Rate 80 77 Respiratory Rate 16 Blood Pressure 98/65 L Pulse Oximetry 98 Oxygen Delivery Oxygen Flow Rate Fraction of Inspired Oxygen 02/08/24 14:22 02/08/24 14:22 02/08/24 14:34 Temperature Pulse Rate 78 76 67 Respiratory Rate 17 Blood Pressure 98/65 L 84/48 L Pulse Oximetry Oxygen Delivery Oxygen Flow Rate Fraction of Inspired Oxygen 02/08/24 16:00 02/08/24 16:00 02/08/24 16:00 Temperature 98.4 F Pulse Rate 66 66 66 Respiratory Rate 15 15 Blood Pressure 92/48 L 92/48 L Pulse Oximetry 99 Oxygen Delivery Oxygen Flow Rate Fraction of Inspired Oxygen 02/08/24 16:00 02/08/24 16:00 02/08/24 17:15 Temperature Pulse Rate 67 62 Respiratory Rate 14 Blood Pressure 90/46 L Pulse Oximetry 98 Oxygen Delivery High Flow Therapy with Na Oxygen Flow Rate 5 Fraction of Inspired Oxygen 02/08/24 17:33 02/08/24 18:00 02/08/24 18:00 Temperature Pulse Rate 49 L 59 L 59 L Respiratory Rate 16 15 15 Blood Pressure 100/47 L Pulse Oximetry 97 Oxygen Delivery Oxygen Flow Rate Fraction of Inspired Oxygen 02/08/24 18:00 02/08/24 19:00 02/08/24 19:22 Temperature Pulse Rate 66 61 72 Respiratory Rate 16 Blood Pressure 95/46 L Pulse Oximetry Oxygen Delivery Oxygen Flow Rate Fraction of Inspired Oxygen 02/08/24 19:22 02/08/24 20:00 02/08/24 20:00 Temperature 97.5 F L Pulse Rate 72 54 L 45 L Respiratory Rate 16 13 16 Blood Pressure 99/46 L Pulse Oximetry 97 Oxygen Delivery Oxygen Flow Rate Fraction of Inspired Oxygen 02/08/24 20:00 02/08/24 20:00 02/08/24 20:00 Temperature Pulse Rate 57 L 63 Respiratory Rate 13 Blood Pressure 99/46 L Pulse Oximetry 97 Oxygen Delivery High Flow Therapy with Na Oxygen Flow Rate 4 Fraction of Inspired Oxygen 02/08/24 20:40 02/08/24 21:30 02/08/24 21:41 Temperature Pulse Rate 61 68 Respiratory Rate Blood Pressure 88/46 L 100/50 L Pulse Oximetry 98 Oxygen Delivery High Flow Nasal Cannula Oxygen Flow Rate 4 Fraction of Inspired Oxygen 02/08/24 22:00 02/08/24 22:00 02/08/24 22:00 Temperature Pulse Rate 75 75 75 Respiratory Rate 18 Blood Pressure 118/108 H 118/105 H Pulse Oximetry 93 Oxygen Delivery Oxygen Flow Rate Fraction of Inspired Oxygen 02/08/24 22:15 02/08/24 23:45 02/08/24 23:55 Temperature Pulse Rate 78 82 78 Respiratory Rate 20 Blood Pressure 155/135 H 117/71 Pulse Oximetry Oxygen Delivery Oxygen Flow Rate Fraction of Inspired Oxygen 02/09/24 00:00 02/09/24 00:00 02/09/24 00:00 Temperature 98.0 F Pulse Rate 80 80 Respiratory Rate 19 Blood Pressure 121/76 Pulse Oximetry 99 94 Oxygen Delivery High Flow Therapy with Na Oxygen Flow Rate 4 Fraction of Inspired Oxygen 02/09/24 00:00 02/09/24 00:15 02/09/24 00:30 Temperature Pulse Rate 80 84 79 Respiratory Rate Blood Pressure 121/76 158/119 H 168/148 H Pulse Oximetry Oxygen Delivery Oxygen Flow Rate Fraction of Inspired Oxygen 02/09/24 00:45 02/09/24 01:54 02/09/24 01:54 Temperature Pulse Rate 80 85 65 Respiratory Rate 25 H 25 H Blood Pressure 124/72 Pulse Oximetry Oxygen Delivery Oxygen Flow Rate Fraction of Inspired Oxygen 02/09/24 02:00 02/09/24 02:00 02/09/24 02:00 Temperature Pulse Rate 65 65 65 Respiratory Rate 14 Blood Pressure 118/68 118/68 Pulse Oximetry 95 Oxygen Delivery Oxygen Flow Rate Fraction of Inspired Oxygen 02/09/24 04:00 02/09/24 04:00 02/09/24 04:00 Temperature Pulse Rate 81 81 Respiratory Rate 26 H Blood Pressure Pulse Oximetry 93 Oxygen Delivery High Flow Therapy with Na Oxygen Flow Rate 4 Fraction of Inspired Oxygen 02/09/24 04:00 02/09/24 06:00 02/09/24 06:00 Temperature 97.5 F L Pulse Rate 81 61 61 Respiratory Rate 26 H 15 15 Blood Pressure 140/116 H Pulse Oximetry 93 Oxygen Delivery Oxygen Flow Rate Fraction of Inspired Oxygen 02/09/24 06:00 02/09/24 06:00 02/09/24 06:00 Temperature Pulse Rate 61 73 73 Respiratory Rate 15 18 Blood Pressure 116/57 L Pulse Oximetry 97 Oxygen Delivery Oxygen Flow Rate Fraction of Inspired Oxygen 02/09/24 07:25 Temperature Pulse Rate Respiratory Rate Blood Pressure Pulse Oximetry 95 Oxygen Delivery High Flow Nasal Cannula Oxygen Flow Rate 4 Fraction of Inspired Oxygen Exam 2 Const: General: uncomfortable Other: has bilateral wrist retraints on with uncontrolled movement. He is sedated but did open his eyes with abdominal palpation. HENMT: Mouth: Yes dry mucous membranes Other: has nasal cannula in place Cardio: Rate: bradycardic Rhythm: abnormal rhythm GI: GI Palp: Yes Tenderness to palpation present (GI) and Yes Guarding due to palpation present (GI) Auscultation: normal bowel sounds Other: Had abdominal tenderness with palpation in the epigastric and left upper quadrant and which he did Guard and open his eyes even though he was sedated. He he does have what appears to be abdominal mesh felt and upper abdomen. Skin: Other: he is pale appearing, he has chronic ulcers noted to bilateral lower extremities with edema. Open ulcer on left foot heal noted. Psych: Other: sedated and agitated. Results Labs 02/09/24 04:11 02/09/24 08:35 Labs: Short CBC 02/08/24 02/08/24 02/09/24 Range/Units 11:45 17:40 04:11 WBC 8.5 (4.5-10.0) K/mm3 Hgb 8.4 L 8.0 L 8.3 L (14.0-18.0) g/dL Hct 27.0 L 26.2 L 27.0 L (42.0-52.0) % Plt Count 263 (150-375) k/mm3 BMP 02/09/24 08:35 Sodium 137 Potassium 5.5 H Chloride 113 H Carbon Dioxide 16 L BUN 55 H Creatinine 1.60 H Glucose 174 H Calcium 9.5 Liver Function 02/09/24 Range/Units 08:35 Total Bilirubin 0.4 (0.2-1.3) mg/dL AST 17 (17-59) U/L ALT 11 (6-50) U/L Alkaline Phosphatase 131 H (38-126) U/L Albumin 2.4 L (3.5-5.1) g/dL
[2024-02-09] MEDS: DEXTROSE 50% 25 GM/50 ML SYRINGE IV PUSH (10:23)
[2024-02-09] MEDS: SODIUM BICARBONATE 8.4% 50 MEQ/50 ML SYRINGE 100 MEQ IV PUSH (10:23)
[2024-02-09] MEDS: ALBUMIN HUMAN 25% 25 GM/100 ML 100 ML IVPB ×3 (10:24→21:18)
[2024-02-09] MEDS: SODIUM POLYSTYRENE SULFONONATE 15 GM/60 ML BTL 30 GM RECTAL (10:25)
[2024-02-09] MEDS: SODIUM BICARBONATE 8.4% 150 MEQ in DEXTROSE 5% 1,000 ML 950 ML 75 MEQ IV CONT (10:25)
[2024-02-09] MEDS: CALCIUM GLUC 1,000 MG/NS 50 ML 1,000 MG/50 ML BAG 100 MG IVPB (10:26)
[2024-02-09] MEDS: INSULIN HUMAN REGULAR (*BKC) 100 UNITS/ML 10 UNITS IV PUSH (10:26)
--- NOTE | 2024-02-09 11:27 | P.PNINT_ITS ---
Progress Note: A&P Assessment and Plan (1) Sepsis: Code(s): A41.9 - Sepsis, unspecified organism Status: Acute Assessment and Plan: Likely Secondary to UTI CT scan reviewed He has wounds on his skin but they do not appear to be infected 02/07: Blood cultures growing gram-negative bacillary 1/2 bottles Discontinue LR infusion, start bicarb drip Continue Levophed, maintain MAP > 65 mmHg for adequate end organ perfusion Empiric vancomycin and meropenem (02/07) (2) JHONY (acute kidney injury): Code(s): N17.9 - Acute kidney failure, unspecified Status: Acute Assessment and Plan: Likely secondary to septic shock, infection, hypotension. -patient on CBI, will be unable to check urine lytes -patient had hematuria after switching his catheter. Likely traumatic -started on continues bladder irrigation, urine is clearing up -CT scan shows stents in place with no hydronephrosis -creatinine is stable, if it continues to increase or urine output decreases will have Nephrology follow the patient (3) Encephalopathy: Code(s): G93.40 - Encephalopathy, unspecified Status: Acute Assessment and Plan: Head CT negative. 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 Has drop in hemoglobin since last admission. He is on anticoagulation will be held IV Protonix GI has been consulted -will obtain stool for occult blood Monitor hemoglobin and transfuse if needed -hemoglobin has been stable this morning Continue NPO status (7) Anemia: Qualifiers: Anemia type: unspecified type Qualified Code(s): D64.9 - Anemia, unspecified Code(s): D64.9 - Anemia, unspecified Status: Acute Assessment and Plan: See above (8) Hypothyroidism: Code(s): E03.9 - Hypothyroidism, unspecified Status: Chronic Assessment and Plan: Continue IV levothyroxine (9) Acute respiratory failure: Code(s): J96.00 - Acute respiratory failure, unspecified whether with hypoxia or hypercapnia Status: Acute Assessment and Plan: Patient was placed on BiPAP as he became obtunded after receiving Versed Now he has poor arousable and moving and pulling on his mask Currently on nasal cannula, if he does not tolerate will place him on Vapotherm or Airvo CT chest showed right paratracheal lymphadenopathy, question mild pulmonary edema versus motion artifact ABG reviewed Plan DVT prophylaxis -SCD, hold chemical prophylaxis/anticoagulation due to hematuria and anemia secondary to likely GI bleed Stress ulcer prophylaxis -Protonix IV q.12 hours Nutrition -NPO Code Status -patient is DNI as per his court documentation from long term. ER physician tried to get hold off patient's but was unable to despite multiple times. The number listed in the chart was called and voicemail was left. Patient's vital later arrived at bedside and I confirmed code status and she stated the patient is okay with intubation for a brief period of time but would not want prolonged mechanical ventilation. Patient's code status was changed to full code in chart. Total Critical Care Time - 37 minutes 02/08: discussed with and updated with patient's condition and plan of care. I answered all her questions Due to a high probability of clinically significant, life threatening deterioration, the patient required my highest level of preparedness to intervene emergently and I personally spent this critical care time directly and personally managing the patient. This critical care time included obtaining a history; examining the patient; pulse oximetry; ordering and review of studies; arranging urgent treatment with development of a management plan; evaluation of patient's response to treatment; frequent reassessment; and discussions with other providers. It was exclusive of separately billable procedures and treating other patients and teaching time. Please see Assessment and Plan section and the rest of the note for further information on patient assessment and treatment Subjective Date/time seen: 02/09/24 11:27 Interval history: Reason for consult: Encephalopathy, UTI, septic shock, agitation 02/09/2024: Patient seen examined the ICU, remains encephalopathic, opens his eyes but does not answer questions or follow simple commands. Remains on Levophed, afebrile, urine output has been adequate. Patient did have some hematuria which is clearing up with CBI. Patient has been agitated and pulling on his lines, Coats and BiPAP, started on Precedex infusion currently more sedated, have asked the bedside RN to start weaning the Precedex infusion Review of Systems Review of Systems: ROS unobtainable: Yes unobtainable due to medical condition and unobtainable due to mental status Exam Narrative: General: Pt is encephalopathic. On 4 L nasal cannula, in no acute distress Lungs/Chest: Trachea central coarse breath sounds bilaterally, decreased at bases, No crackles or wheezing. Cardiac: RRR. Normal S1 S2. No murmurs Abdomen: Normoactive bowel sounds. Morbidly Obese. Soft. NT. ND. There ap pears and mesh underlying the skin in the midline Extremities: Bilateral feet have edema. He has 2 superficial wounds on the lateral aspect of left leg. He also has a wound which does not appear infected on the left heel. He has chronic venous stasis changes and edema : Coats in place Neurologic: Patient does open his eyes but does not follow simple commands, on Precedex infusion. Moves all extremities, pupils equal and reactive bilaterally Skin: As above Objective Data Vital Signs Vital Signs: Vital Signs - 24 hr 02/08/24 11:30 02/08/24 11:37 02/08/24 11:37 Temperature 96.7 F L Pulse Rate 85 82 Respiratory Rate 20 20 Blood Pressure 109/81 109/81 Pulse Oximetry 92 92 Oxygen Delivery BiPAP Oxygen Flow Rate Fraction of Inspired Oxygen 60 02/08/24 11:40 02/08/24 11:50 02/08/24 11:53 Temperature Pulse Rate 84 78 78 Respiratory Rate Blood Pressure 103/88 115/95 H 115/95 H Pulse Oximetry Oxygen Delivery Oxygen Flow Rate Fraction of Inspired Oxygen 02/08/24 12:00 02/08/24 12:00 02/08/24 12:00 Temperature 96.7 F L Pulse Rate 85 84 80 Respiratory Rate 17 Blood Pressure 97/84 L 97/84 L Pulse Oximetry 92 Oxygen Delivery Oxygen Flow Rate Fraction of Inspired Oxygen 02/08/24 12:00 02/08/24 12:19 02/08/24 12:30 Temperature 96.7 F L Pulse Rate 86 Respiratory Rate 22 H Blood Pressure Pulse Oximetry 96 96 Oxygen Delivery High Flow Therapy with Na Oxygen Flow Rate 6 Fraction of Inspired Oxygen 02/08/24 12:34 02/08/24 12:49 02/08/24 13:04 Temperature 96.8 F L 97 F L 97.2 F L Pulse Rate Respiratory Rate Blood Pressure Pulse Oximetry Oxygen Delivery Oxygen Flow Rate Fraction of Inspired Oxygen 02/08/24 13:07 02/08/24 13:08 02/08/24 13:19 Temperature 97.5 F L Pulse Rate 87 96 Respiratory Rate 18 Blood Pressure 107/76 Pulse Oximetry Oxygen Delivery Oxygen Flow Rate Fraction of Inspired Oxygen 02/08/24 13:49 02/08/24 14:00 02/08/24 14:00 Temperature 97.8 F 98.1 F Pulse Rate 80 77 Respiratory Rate 16 Blood Pressure 98/65 L Pulse Oximetry 98 Oxygen Delivery Oxygen Flow Rate Fraction of Inspired Oxygen 02/08/24 14:19 02/08/24 14:22 02/08/24 14:22 Temperature 98.1 F Pulse Rate 78 76 Respiratory Rate 17 Blood Pressure 98/65 L Pulse Oximetry Oxygen Delivery Oxygen Flow Rate Fraction of Inspired Oxygen 02/08/24 14:34 02/08/24 16:00 02/08/24 16:00 Temperature 98.4 F Pulse Rate 67 66 66 Respiratory Rate 15 15 Blood Pressure 84/48 L 92/48 L Pulse Oximetry 99 Oxygen Delivery Oxygen Flow Rate Fraction of Inspired Oxygen 02/08/24 16:00 02/08/24 16:00 02/08/24 16:00 Temperature Pulse Rate 66 67 Respiratory Rate 14 Blood Pressure 92/48 L Pulse Oximetry 98 Oxygen Delivery High Flow Therapy with Na Oxygen Flow Rate 5 Fraction of Inspired Oxygen 02/08/24 17:15 02/08/24 17:33 02/08/24 18:00 Temperature Pulse Rate 62 49 L 59 L Respiratory Rate 16 15 Blood Pressure 90/46 L 100/47 L Pulse Oximetry 97 Oxygen Delivery Oxygen Flow Rate Fraction of Inspired Oxygen 02/08/24 18:00 02/08/24 18:00 02/08/24 19:00 Temperature Pulse Rate 59 L 66 61 Respiratory Rate 15 Blood Pressure 95/46 L Pulse Oximetry Oxygen Delivery Oxygen Flow Rate Fraction of Inspired Oxygen 02/08/24 19:22 02/08/24 19:22 02/08/24 20:00 Temperature 97.5 F L Pulse Rate 72 72 54 L Respiratory Rate 16 16 13 Blood Pressure 99/46 L Pulse Oximetry 97 Oxygen Delivery Oxygen Flow Rate Fraction of Inspired Oxygen 02/08/24 20:00 02/08/24 20:00 02/08/24 20:00 Temperature Pulse Rate 45 L 57 L Respiratory Rate 16 13 Blood Pressure 99/46 L Pulse Oximetry 97 Oxygen Delivery High Flow Therapy with Na Oxygen Flow Rate 4 Fraction of Inspired Oxygen 02/08/24 20:00 02/08/24 20:40 02/08/24 21:30 Temperature Pulse Rate 63 61 Respiratory Rate Blood Pressure 88/46 L Pulse Oximetry 98 Oxygen Delivery High Flow Nasal Cannula Oxygen Flow Rate 4 Fraction of Inspired Oxygen 02/08/24 21:41 02/08/24 22:00 02/08/24 22:00 Temperature Pulse Rate 68 75 75 Respiratory Rate 18 Blood Pressure 100/50 L 118/108 H Pulse Oximetry 93 Oxygen Delivery Oxygen Flow Rate Fraction of Inspired Oxygen 02/08/24 22:00 02/08/24 22:15 02/08/24 23:45 Temperature Pulse Rate 75 78 82 Respiratory Rate Blood Pressure 118/105 H 155/135 H 117/71 Pulse Oximetry Oxygen Delivery Oxygen Flow Rate Fraction of Inspired Oxygen 02/08/24 23:55 02/09/24 00:00 02/09/24 00:00 Temperature 98.0 F Pulse Rate 78 80 Respiratory Rate 20 19 Blood Pressure 121/76 Pulse Oximetry 99 94 Oxygen Delivery High Flow Therapy with Na Oxygen Flow Rate 4 Fraction of Inspired Oxygen 02/09/24 00:00 02/09/24 00:00 02/09/24 00:15 Temperature Pulse Rate 80 80 84 Respiratory Rate Blood Pressure 121/76 158/119 H Pulse Oximetry Oxygen Delivery Oxygen Flow Rate Fraction of Inspired Oxygen 02/09/24 00:30 02/09/24 00:45 02/09/24 01:54 Temperature Pulse Rate 79 80 85 Respiratory Rate 25 H Blood Pressure 168/148 H 124/72 Pulse Oximetry Oxygen Delivery Oxygen Flow Rate Fraction of Inspired Oxygen 02/09/24 01:54 02/09/24 02:00 02/09/24 02:00 Temperature Pulse Rate 65 65 65 Respiratory Rate 25 H 14 Blood Pressure 118/68 Pulse Oximetry 95 Oxygen Delivery Oxygen Flow Rate Fraction of Inspired Oxygen 02/09/24 02:00 02/09/24 04:00 02/09/24 04:00 Temperature Pulse Rate 65 81 Respiratory Rate 26 H Blood Pressure 118/68 Pulse Oximetry 93 Oxygen Delivery High Flow Therapy with Na Oxygen Flow Rate 4 Fraction of Inspired Oxygen 02/09/24 04:00 02/09/24 04:00 02/09/24 06:00 Temperature 97.5 F L Pulse Rate 81 81 61 Respiratory Rate 26 H 15 Blood Pressure 140/116 H Pulse Oximetry 93 Oxygen Delivery Oxygen Flow Rate Fraction of Inspired Oxygen 02/09/24 06:00 02/09/24 06:00 02/09/24 06:00 Temperature Pulse Rate 61 61 73 Respiratory Rate 15 15 Blood Pressure Pulse Oximetry Oxygen Delivery Oxygen Flow Rate Fraction of Inspired Oxygen 02/09/24 06:00 02/09/24 07:25 Temperature Pulse Rate 73 Respiratory Rate 18 Blood Pressure 116/57 L Pulse Oximetry 97 95 Oxygen Delivery High Flow Nasal Cannula Oxygen Flow Rate 4 Fraction of Inspired Oxygen Intake/Output Intake/Output: Intake & Output 02/06/24 02/07/24 02/08/24 02/09/24 23:59 23:59 23:59 23:59 Intake Total 6343.3 1222.1 Output Total 600 2100 Balance 5743.3 -877.9 Meds/Results Medications: Active Medications Generic Name Dose Route Start Last Admin Trade Name Freq PRN Reason Stop Dose Admin Dextrose 12.5 gm 02/08/24 10:49 Dextrose 50% 25 Gm/50 Ml Syringe IV PUSH PRN PRN Hypoglycemia Protocol Glucagon 1 mg 02/08/24 10:49 Glucagon For Inj 1 Mg Vial IM PRN PRN Hypoglycemia Protocol Glucose 15 gm 02/08/24 10:49 Glucose Oral Gel 15 Gm Of Glucse In 37.5 Gm Tube PO PRN PRN Hypoglycemia Protocol Meropenem 1 gm in 100 mls @ 200 mls/hr 02/08/24 14:00 02/09/24 06:30 IVPB Infused Q8HR HERMILO Infusion Vancomycin HCl 1,500 mg in 500 mls @ 250 mls/hr 02/09/24 07:00 02/09/24 06:00 Vancomycin 1,500 Mg/Ns 500 Ml IVPB 250 mls/hr Q24H HERMILO Administration Dextrose 1,000 mls @ 100 mls/hr 02/08/24 10:49 Dextrose 5% 1,000 Ml IVPB PRN PRN Hypoglycemia Protocol Dexmedetomidine HCl 400 mcg in 100 mls @ 27.81 mls/hr 02/08/24 12:55 02/09/24 06:00 Precedex 400 Mcg/100 Ml IV CONT 0.9 mcg/kg/hr .Q3H36M HERMILO 27.81 mls/hr Administration Protocol 0.9 MCG/KG/HR Albumin Human 100 mls @ 60 mls/hr 02/09/24 09:30 02/09/24 10:24 Albutein IVPB 02/10/24 05:09 60 mls/hr Q6H HERMILO Administration Sodium Bicarbonate 150 meq/ 1,100 mls @ 75 mls/hr 02/09/24 09:45 02/09/24 10:25 Dextrose IV CONT 75 mls/hr .[id number] HERMILO Administration Insulin Aspart 4 - 8 units 02/08/24 13:00 02/09/24 08:26 Insulin Aspart (*Bkc) 100 Units/Ml SUB-Q Not Given Q4HR HERMILO Protocol Levothyroxine Sodium 50 mcg 02/09/24 06:30 02/09/24 06:00 Levothyroxine Sodium Inj 100 Mcg/5 Ml Vial IV PUSH 50 mcg DAILY@0630 HERMILO Administration Multi-Ingred Cream/Lotion/Oil/Oint 1 applic 02/08/24 21:00 02/09/24 08:13 Mineral Oil/White Petrolatum Ointment EACH EYE 1 applic Q12HR HERMILO Administration Mupirocin 1 applic 02/09/24 09:00 02/09/24 08:13 Mupirocin 2% Oint 22 Gm Tube EACH NARE 1 applic Q12HR HERMILO Administration Pantoprazole Sodium 40 mg 02/08/24 21:00 02/09/24 08:13 Pantoprazole Sodium Iv 40 Mg Vial IV PUSH 40 mg Q12HR HERMILO Administration Radiology Results: ITS Impressions Chest X-Ray 02/08/24 06:44 Impression: Mild bibasilar pulmonary edema. Cardiomegaly. Head CT 02/08/24 08:08 Impression: No significant abnormality identified. Exam somewhat degraded by motion artifact. Atrophy and chronic white matter changes, as above. Chest/Abdomen/Pelvis CT 02/08/24 08:09 Impression: Exam degraded by motion artifact. Small right pleural effusion. Right paratracheal lymphadenopathy, nonspecific. Correlate for reactive/inflammatory nodes versus any possibility of lymphoma or metastatic disease. Questionable mild pulmonary edema versus motion artifact. Possible cystitis despite Coats catheter. Correlate with urinalysis. Cholelithiasis. Constipation. Bilateral ureteral stents with relatively stable right renal stones. No definite hydronephrosis. Labs Labs: Laboratory Results - last 24 hr 02/08/24 02/08/24 02/08/24 11:45 11:49 14:08 WBC RBC Hgb 8.4 L Hct 27.0 L MCV MCH MCHC RDW Plt Count MPV Immature Gran % (Auto) Neut % (Auto) Lymph % (Auto) [place] % (Auto) Eos % (Auto) Baso % (Auto) Lymph # (Auto) [place] # (Auto) Eos # (Auto) Baso # (Auto) Abs Immat Gran (auto) Absolute Neuts (auto) Absolute Nucleated RBC Nucleated RBC % Sodium Potassium Chloride Carbon Dioxide Anion Gap BUN Creatinine Estim Creat Clear Calc Estimated GFR Glucose POC Capillary Glucose 108 H 111 H Lactic Acid Calcium Phosphorus Magnesium Total Bilirubin AST ALT Alkaline Phosphatase Total Protein Albumin Nasal MRSA (PCR) Detected A* 02/08/24 02/08/24 02/08/24 17:37 17:40 20:02 WBC RBC Hgb 8.0 L Hct 26.2 L MCV MCH MCHC RDW Plt Count MPV Immature Gran % (Auto) Neut % (Auto) Lymph % (Auto) [place] % (Auto) Eos % (Auto) Baso % (Auto) Lymph # (Auto) [place] # (Auto) Eos # (Auto) Baso # (Auto) Abs Immat Gran (auto) Absolute Neuts (auto) Absolute Nucleated RBC Nucleated RBC % Sodium Potassium Chloride Carbon Dioxide Anion Gap BUN Creatinine Estim Creat Clear Calc Estimated GFR Glucose POC Capillary Glucose 130 H 133 H Lactic Acid Calcium Phosphorus Magnesium Total Bilirubin AST ALT Alkaline Phosphatase Total Protein Albumin Nasal MRSA (PCR) 02/09/24 02/09/24 02/09/24 01:07 04:11 08:23 WBC 8.5 RBC 3.36 L Hgb 8.3 L Hct 27.0 L MCV 80.4 MCH 24.7 L MCHC 30.7 L RDW 18.1 H Plt Count 263 MPV 9.4 Immature Gran % (Auto) 1.1 H Neut % (Auto) 85.7 H Lymph % (Auto) 7.2 L [place] % (Auto) 4.7 Eos % (Auto) 0.9 Baso % (Auto) 0.4 Lymph # (Auto) 0.61 L [place] # (Auto) 0.4 Eos # (Auto) 0.1 Baso # (Auto) 0.0 Abs Immat Gran (auto) 0.09 H Absolute Neuts (auto) 7.3 H Absolute Nucleated RBC 0.000 Nucleated RBC % 0.0 Sodium Potassium Chloride Carbon Dioxide Anion Gap BUN Creatinine Estim Creat Clear Calc Estimated GFR Glucose POC Capillary Glucose 138 H 154 H Lactic Acid Calcium Phosphorus Magnesium Total Bilirubin AST ALT Alkaline Phosphatase Total Protein Albumin Nasal MRSA (PCR) 02/09/24 08:35 WBC RBC Hgb Hct MCV MCH MCHC RDW Plt Count MPV Immature Gran % (Auto) Neut % (Auto) Lymph % (Auto) [place] % (Auto) Eos % (Auto) Baso % (Auto) Lymph # (Auto) [place] # (Auto) Eos # (Auto) Baso # (Auto) Abs Immat Gran (auto) Absolute Neuts (auto) Absolute Nucleated RBC Nucleated RBC % Sodium 137 Potassium 5.5 H Chloride 113 H Carbon Dioxide 16 L Anion Gap 8 BUN 55 H Creatinine 1.60 H Estim Creat Clear Calc 56 Estimated GFR 43 L Glucose 174 H POC Capillary Glucose Lactic Acid 1.1 Calcium 9.5 Phosphorus 5.0 H Magnesium 2.1 Total Bilirubin 0.4 AST 17 ALT 11 Alkaline Phosphatase 131 H Total Protein 7.0 Albumin 2.4 L Nasal MRSA (PCR) Quality VTE Prophylaxis VTE prophylaxis: mechanical ordered
[2024-02-09 11:38] LABS: Glucose Point of Care 148 mg/dl (65-105)
[2024-02-09 11:58] LABS: Hematocrit 24.8 % (42.0-52.0); Hemoglobin 7.4 g/dL (14.0-18.0)
[2024-02-09] MEDS: dexmedeTOMIDine 400 MCG/100 ML 400 MCG/100 ML BAG 9.27 MCG IV CONT (12:00)
[2024-02-09 12:08] LABS: Ammonia < 9 umol/L (9-30)
[2024-02-09] MEDS: ALBUTEROL SULFATE NEB 2.5 MG/3 ML INH 10 MG INHALATION (12:27)
[2024-02-09 13:28] LABS: Anion Gap 5 mmol/L (4-12); Blood Urea Nitrogen 55 mg/dL (9-20); Calcium 9.8 mg/dL (8.4-10.2); Carbon Dioxide 21 mmol/L (22-30); Chloride 112 mmol/L (98-107); Estimated CRCL calculation 56 ml/min; Estimated Glomerular Filt Rate 43; Glucose 137 mg/dL (65-110); Sodium 138 mmol/L (137-145)
[2024-02-09 16:47] LABS: Glucose Point of Care 153 mg/dl (65-105)
[2024-02-09 21:00] LABS: Glucose Point of Care 164 mg/dl (65-105)
[2024-02-10] VITALS (18 sets, daily range): BP systolic 109–169; BP diastolic 61–89; PULSE 70–118; RESP 7–18; TEMP 36.3–36.8; O2SAT 91–99; BMI 35.6
[2024-02-10 01:12] LABS: Glucose Point of Care 195 mg/dl (65-105)
[2024-02-10] MEDS: dexmedeTOMIDine 400 MCG/100 ML 400 MCG/100 ML BAG 6.18 MCG IV CONT (01:56)
[2024-02-10] MEDS: SODIUM BICARBONATE 8.4% 150 MEQ in DEXTROSE 5% 1,000 ML 950 ML 75 MEQ IV CONT (03:00)
[2024-02-10] MEDS: ALBUMIN HUMAN 25% 25 GM/100 ML 100 ML IVPB (03:50)
[2024-02-10 04:55] LABS: Glucose Point of Care 204 mg/dl (65-105)
[2024-02-10 06:31] LABS: Basophils Percent Auto 0.5 % (0.2-1.2); Eosinophils Absolute Auto 0.3 K/mm3 (0-0.3); Eosinophils Percent Auto 3.3 % (0-4.4); Hematocrit 25.5 % (42.0-52.0); Hemoglobin 7.8 g/dL (14.0-18.0); Immature Granulocyte Absolute 0.07 K/mm3 (0.00-0.031); Immature Granulocyte Percent A 0.8 % (0-0.5); Lymphocytes Absolute Auto 0.62 K/mm3 (0.9-3.2); Lymphocytes Percent Auto 7.1 % (18.3-44.2); Mean Corpuscular HGB Conc 30.6 g/dl (32-36); Mean Corpuscular Hemoglobin 24.5 pg (26-34); Mean Corpuscular Volume 80.2 fl (80-100); Mean Platelet Volume 9.1 fl (7.4-10.4); Monocytes Absolute Auto 0.5 K/mm3 (0.1-0.6); Neutrophils Absolute Auto 7.2 K/mm3 (1.3-6.7); Neutrophils Percent Auto 82.3 % (45.5-73.1); Nucleated Red Blood Cells Perc 0.2 % (0.0-0.2); Platelet Count Result 209 k/mm3 (150-375); Red Blood Count 3.18 M/mm3 (4.6-6.20); Red Cell Distribution Width 18.1 % (11.5-14.5); White Blood Count 8.8 K/mm3 (4.5-10.0)
[2024-02-10 07:15] LABS: Alanine Aminotransferase 11 U/L (6-50); Alkaline Phosphatase 123 U/L (38-126); Anion Gap 7 mmol/L (4-12); Aspartate Amino Transferase 14 U/L (17-59); Bilirubin,Total 0.6 mg/dL (0.2-1.3); Blood Urea Nitrogen 48 mg/dL (9-20); Carbon Dioxide 22 mmol/L (22-30); Chloride 111 mmol/L (98-107); Estimated CRCL calculation 60 ml/min; Estimated Glomerular Filt Rate 47; Glucose 227 mg/dL (65-110); Magnesium 2.2 mg/dL (1.6-2.3); Phosphorus 4.1 mg/dL (2.5-4.5); Potassium 4.3 mmol/L (3.4-5.0); Sodium 140 mmol/L (137-145)
[2024-02-10] MEDS: MEROPENEM 1 GM/NS 100 ML 1 GM/100 ML BAG IVPB ×3 (07:24→21:13)
[2024-02-10] MEDS: LEVOTHYROXINE SODIUM INJ 100 MCG/5 ML VIAL 50 MCG IV PUSH (07:24)
[2024-02-10 07:44] LABS: Glucose Point of Care 201 mg/dl (65-105)
--- NOTE | 2024-02-10 08:08 | WPDINTPN ---
Progress Note: A&P Assessment and Plan (1) Sepsis: Code(s): A41.9 - Sepsis, unspecified organism Status: Acute Assessment and Plan: Likely Secondary to UTI CT scan reviewed He has wounds on his skin but they do not appear to be infected 02/07: Blood cultures growing gram-negative bacilli /2 bottles 02/07: Urine culture negative so far 02/09: will repeat blood cultures Discontinue IV fluids Off Levophed, his blood pressures are much improved Continue vancomycin and meropenem (02/07) 02/08/2024: CT chest abdomen and pelvis Impression: Exam degraded by motion artifact. Small right pleural effusion. Right paratracheal lymphadenopathy, nonspecific. Correlate for reactive/inflammatory nodes versus any possibility of lymphoma or metastatic disease. Questionable mild pulmonary edema versus motion artifact. Possible cystitis despite Coats catheter. Correlate with urinalysis. Cholelithiasis. Constipation. Bilateral ureteral stents with relatively stable right renal stones. No definite hydronephrosis. (2) JHONY (acute kidney injury): Code(s): N17.9 - Acute kidney failure, unspecified Status: Acute Assessment and Plan: Likely secondary to septic shock, infection, hypotension. -patient on CBI, will be unable to check urine lytes -patient had hematuria after switching his catheter. Likely traumatic -urine is more clear this morning -urine output has been adequate, creatinine stable -CT scan of the abdomen pelvis shows stents in place with no hydronephrosis -creatinine is stable, if it continues to increase or urine output decreases will have Nephrology follow the patient (3) Encephalopathy: Code(s): G93.40 - Encephalopathy, unspecified Status: Acute Assessment and Plan: Head CT negative. Patient also received Versed in the ER Likely toxic metabolic encephalopathy Avoid sedatives Off Precedex infusion -patient more awake this morning, able to nod to questions and follow commands which she was not doing yesterday (4) Type 2 diabetes mellitus with hyperglycemia, with long-term current use of insulin: Code(s): E11.65 - Type 2 diabetes mellitus with hyperglycemia; Z79.4 - detention (current) use of insulin Status: Chronic Assessment and Plan: Continue Sliding scale insulin and Accu-Cheks (5) Atrial fibrillation with rapid ventricular response: Code(s): I48.91 - Unspecified atrial fibrillation Status: Chronic Assessment and Plan: Currently holding Accu-Cheks due to hematuria and anemia (6) GI bleed: Code(s): K92.2 - Gastrointestinal hemorrhage, unspecified Status: Acute Assessment and Plan: Patient has history of GI bleed and positive Hemoccult. Has drop in hemoglobin since last admission. He is on anticoagulation will be held IV Protonix q.12 hours GI has been consulted, appreciate evaluation and recommendations -stool for occult blood pending -Monitor hemoglobin and transfuse if needed -hemoglobin has been stable this morning Continue NPO status (7) Anemia: Qualifiers: Anemia type: unspecified type Qualified Code(s): D64.9 - Anemia, unspecified Code(s): D64.9 - Anemia, unspecified Status: Acute Assessment and Plan: See above (8) Hypothyroidism: Code(s): E03.9 - Hypothyroidism, unspecified Status: Chronic Assessment and Plan: Continue IV levothyroxine (9) Acute respiratory failure: Code(s): J96.00 - Acute respiratory failure, unspecified whether with hypoxia or hypercapnia Status: Acute Assessment and Plan: Patient was placed on BiPAP as he became obtunded after receiving Versed Now he has poor arousable and moving and pulling on his mask Currently on nasal cannula, if he does not tolerate will place him on Vapotherm or Airvo CT chest showed right paratracheal lymphadenopathy, question mild pulmonary edema versus motion artifact ABG reviewed -since patient is off Levophed and blood pressure is high, will diurese today Plan DVT prophylaxis -SCD, hold chemical prophylaxis/anticoagulation due to hematuria and anemia secondary to likely GI bleed Stress ulcer prophylaxis -Protonix IV q.12 hours Nutrition -NPO Code Status -patient is DNI as per his court documentation from [facility]. ER physician tried to get hold off patient's but was unable to despite multiple times. The number listed in the chart was called and voicemail was left. Patient's vital later arrived at bedside and I confirmed code status and she stated the patient is okay with intubation for a brief period of time but would not want prolonged mechanical ventilation. Patient's code status was changed to full code in chart. Total Critical Care Time - 32 minutes 02/08: discussed with and updated with patient's condition and plan of care. I answered all her questions Due to a high probability of clinically significant, life threatening deterioration, the patient required my highest level of preparedness to intervene emergently and I personally spent this critical care time directly and personally managing the patient. This critical care time included obtaining a history; examining the patient; pulse oximetry; ordering and review of studies; arranging urgent treatment with development of a management plan; evaluation of patient's response to treatment; frequent reassessment; and discussions with other providers. It was exclusive of separately billable procedures and treating other patients and teaching time. Please see Assessment and Plan section and the rest of the note for further information on patient assessment and treatment Subjective Date/time seen: 02/10/24 08:08 Interval history: Reason for consult: Encephalopathy, UTI, septic shock, agitation 02/10/2024: Patient seen and examined in the ICU, is more awake this morning, able to give one-word answers and nods to questions. Denies any chest pain, shortness of breath, abdominal pain, nausea vomiting. Urine is clear an adequate, patient is afebrile. Off Levophed since midnight. Patient is also off Precedex infusion Review of Systems Review of Systems: All systems reviewed & are unremarkable except as noted in HPI and below Exam Narrative: General: More awake this morning,. On 3 L nasal cannula, in no acute distress Lungs/Chest: Trachea central coarse breath sounds bilaterally, decreased at bases, No crackles or wheezing. Cardiac: Irregularly irregular, rate in the 100-110 Abdomen: Normoactive bowel sounds. Morbidly Obese. Soft. NT. ND. There appears and mesh underlying the skin in the midline Extremities: Bilateral feet have edema. He has 2 superficial wounds on the lateral aspect of left leg. He also has a wound which does not appear infected on the left heel. He has chronic venous stasis changes and edema : Coats in place Neurologic: Patient is off Precedex infusion, more awake, able to nod to questions and give me one-word answers, follows commands and upper extremities. Skin: As above Objective Data Vital Signs Vital Signs: Vital Signs - 24 hr 02/09/24 09:00 02/09/24 10:00 02/09/24 10:00 Temperature Pulse Rate 63 66 63 Respiratory Rate 17 17 Blood Pressure Pulse Oximetry Oxygen Delivery Oxygen Flow Rate 02/09/24 10:00 02/09/24 11:00 02/09/24 12:00 Temperature Pulse Rate 63 66 63 Respiratory Rate 12 20 25 H Blood Pressure 99/61 L Pulse Oximetry 96 Oxygen Delivery Oxygen Flow Rate 02/09/24 12:00 02/09/24 12:00 02/09/24 12:00 Temperature 97.7 F Pulse Rate 63 63 63 Respiratory Rate 25 H 25 H Blood Pressure 91/57 L Pulse Oximetry 97 Oxygen Delivery Oxygen Flow Rate 02/09/24 12:00 02/09/24 12:30 02/09/24 12:30 Temperature Pulse Rate 63 62 60 Respiratory Rate 25 H 15 23 H Blood Pressure Pulse Oximetry 97 Oxygen Delivery High Flow Therapy with Na Oxygen Flow Rate 4 02/09/24 14:00 02/09/24 14:00 02/09/24 14:30 Temperature Pulse Rate 61 61 64 Respiratory Rate 14 13 Blood Pressure 105/61 Pulse Oximetry 97 Oxygen Delivery Oxygen Flow Rate 02/09/24 16:00 02/09/24 16:00 02/09/24 16:00 Temperature 97.5 F L Pulse Rate 59 L 59 L 59 L Respiratory Rate 13 13 Blood Pressure 98/55 L Pulse Oximetry 94 94 Oxygen Delivery High Flow Therapy with Na Oxygen Flow Rate 4 02/09/24 16:30 02/09/24 17:43 02/09/24 18:00 Temperature Pulse Rate 68 53 L 65 Respiratory Rate 18 14 Blood Pressure Pulse Oximetry Oxygen Delivery Oxygen Flow Rate 02/09/24 18:00 02/09/24 18:15 02/09/24 20:00 Temperature Pulse Rate 65 60 607 H Respiratory Rate 16 16 162 H Blood Pressure 96/61 L Pulse Oximetry 95 92 Oxygen Delivery Nasal Cannula Oxygen Flow Rate 3 02/09/24 20:00 02/09/24 20:00 02/09/24 20:00 Temperature 98.3 F Pulse Rate 71 66 67 Respiratory Rate 16 18 Blood Pressure 100/68 Pulse Oximetry 91 Oxygen Delivery Oxygen Flow Rate 02/09/24 20:38 02/09/24 22:00 02/09/24 22:00 Temperature Pulse Rate 75 77 Respiratory Rate 17 Blood Pressure Pulse Oximetry 93 Oxygen Delivery High Flow Nasal Cannula Oxygen Flow Rate 3 02/09/24 22:00 02/10/24 00:00 02/10/24 00:00 Temperature 98.3 F Pulse Rate 77 86 86 Respiratory Rate 18 18 Blood Pressure 107/66 Pulse Oximetry 93 91 Oxygen Delivery Nasal Cannula Oxygen Flow Rate 3 02/10/24 00:00 02/10/24 00:00 02/10/24 01:20 Temperature 97.4 F L Pulse Rate 86 70 91 Respiratory Rate 16 18 15 Blood Pressure 109/73 Pulse Oximetry 91 Oxygen Delivery Oxygen Flow Rate 02/10/24 01:56 02/10/24 02:00 02/10/24 02:00 Temperature Pulse Rate 89 92 92 Respiratory Rate 7 L 18 Blood Pressure 111/67 Pulse Oximetry 94 Oxygen Delivery Oxygen Flow Rate 02/10/24 03:50 02/10/24 04:00 02/10/24 04:00 Temperature Pulse Rate 82 88 88 Respiratory Rate 15 18 Blood Pressure Pulse Oximetry 92 Oxygen Delivery Nasal Cannula Oxygen Flow Rate 3 02/10/24 04:00 02/10/24 05:50 02/10/24 06:00 Temperature 98.3 F Pulse Rate 88 95 92 Respiratory Rate 16 15 Blood Pressure 120/61 Pulse Oximetry 95 Oxygen Delivery Oxygen Flow Rate 02/10/24 06:00 Temperature Pulse Rate 92 Respiratory Rate 18 Blood Pressure 134/70 Pulse Oximetry 97 Oxygen Delivery Oxygen Flow Rate Intake/Output Intake/Output: Intake & Output 02/07/24 02/08/24 02/09/24 02/10/24 23:59 23:59 23:59 23:59 Intake Total 6343.3 2451.5 1132.3 Output Total 600 3050 900 Balance 5743.3 -598.5 232.3 Meds/Results Medications: Active Medications Generic Name Dose Route Start Last Admin Trade Name Freq PRN Reason Stop Dose Admin Dextrose 12.5 gm 02/08/24 10:49 Dextrose 50% 25 Gm/50 Ml Syringe IV PUSH PRN PRN Hypoglycemia Protocol Glucagon 1 mg 02/08/24 10:49 Glucagon For Inj 1 Mg Vial IM PRN PRN Hypoglycemia Protocol Glucose 15 gm 02/08/24 10:49 Glucose Oral Gel 15 Gm Of Glucse In 37.5 Gm Tube PO PRN PRN Hypoglycemia Protocol Meropenem 1 gm in 100 mls @ 200 mls/hr 02/08/24 14:00 02/10/24 07:24 IVPB 200 mls/hr Q8HR HERMILO Administration Vancomycin HCl 1,500 mg in 500 mls @ 250 mls/hr 02/09/24 07:00 02/09/24 08:00 Vancomycin 1,500 Mg/Ns 500 Ml IVPB Infused Q24H HERMILO Infusion Dextrose 1,000 mls @ 100 mls/hr 02/08/24 10:49 Dextrose 5% 1,000 Ml IVPB PRN PRN Hypoglycemia Protocol Dexmedetomidine HCl 400 mcg in 100 mls @ 0 mls/hr 02/08/24 12:55 02/10/24 05:50 Precedex 400 Mcg/100 Ml IV CONT 0 mcg/kg/hr .Q0M HERMILO 0 mls/hr Titration Protocol 0 MCG/KG/HR Sodium Bicarbonate 150 meq/ 1,100 mls @ 75 mls/hr 02/09/24 09:45 02/10/24 03:00 Dextrose IV CONT 75 mls/hr .[id number] HERMILO Administration Insulin Aspart 4 - 8 units 02/08/24 13:00 02/10/24 06:08 Insulin Aspart (*Bkc) 100 Units/Ml SUB-Q Not Given Q4HR HERMILO Protocol Levothyroxine Sodium 50 mcg 02/09/24 06:30 02/10/24 07:24 Levothyroxine Sodium Inj 100 Mcg/5 Ml Vial IV PUSH 50 mcg DAILY@0630 HERMILO Administration Multi-Ingred Cream/Lotion/Oil/Oint 1 applic 02/08/24 21:00 02/09/24 21:18 Mineral Oil/White Petrolatum Ointment EACH EYE 1 applic Q12HR HERMILO Administration Mupirocin 1 applic 02/09/24 09:00 02/09/24 21:18 Mupirocin 2% Oint 22 Gm Tube EACH NARE 1 applic Q12HR HERMILO Administration Pantoprazole Sodium 40 mg 02/08/24 21:00 02/09/24 21:18 Pantoprazole Sodium Iv 40 Mg Vial IV PUSH 40 mg Q12HR HERMILO Administration Radiology Results: ITS Impressions Head CT 02/08/24 08:08 Impression: No significant abnormality identified. Exam somewhat degraded by motion artifact. Atrophy and chronic white matter changes, as above. Chest/Abdomen/Pelvis CT 02/08/24 08:09 Impression: Exam degraded by motion artifact. Small right pleural effusion. Right paratracheal lymphadenopathy, nonspecific. Correlate for reactive/inflammatory nodes versus any possibility of lymphoma or metastatic disease. Questionable mild pulmonary edema versus motion artifact. Possible cystitis despite Coats catheter. Correlate with urinalysis. Cholelithiasis. Constipation. Bilateral ureteral stents with relatively stable right renal stones. No definite hydronephrosis. Chest X-Ray 02/10/24 06:24 Impression: Probable mild mixed alveolar and interstitial pulmonary edema. Correlate clinically for infection. Minimal right pleural effusion. Labs Labs: Laboratory Results - last 24 hr 02/09/24 02/09/24 02/09/24 04:11 08:23 08:35 WBC 8.5 RBC 3.36 L Hgb 8.3 L Hct 27.0 L MCV 80.4 MCH 24.7 L MCHC 30.7 L RDW 18.1 H Plt Count 263 MPV 9.4 Immature Gran % (Auto) 1.1 H Neut % (Auto) 85.7 H Lymph % (Auto) 7.2 L [place] % (Auto) 4.7 Eos % (Auto) 0.9 Baso % (Auto) 0.4 Lymph # (Auto) 0.61 L [place] # (Auto) 0.4 Eos # (Auto) 0.1 Baso # (Auto) 0.0 Abs Immat Gran (auto) 0.09 H Absolute Neuts (auto) 7.3 H Absolute Nucleated RBC 0.000 Nucleated RBC % 0.0 Sodium 137 Potassium 5.5 H Chloride 113 H Carbon Dioxide 16 L Anion Gap 8 BUN 55 H Creatinine 1.60 H Estim Creat Clear Calc 56 Estimated GFR 43 L Glucose 174 H POC Capillary Glucose 154 H Lactic Acid 1.1 Calcium 9.5 Phosphorus 5.0 H Magnesium 2.1 Total Bilirubin 0.4 AST 17 ALT 11 Alkaline Phosphatase 131 H Ammonia Total Protein 7.0 Albumin 2.4 L Vancomycin Trough 02/09/24 02/09/24 02/09/24 11:30 11:49 13:14 WBC RBC Hgb 7.4 L Hct 24.8 L MCV MCH MCHC RDW Plt Count MPV Immature Gran % (Auto) Neut % (Auto) Lymph % (Auto) [place] % (Auto) Eos % (Auto) Baso % (Auto) Lymph # (Auto) [place] # (Auto) Eos # (Auto) Baso # (Auto) Abs Immat Gran (auto) Absolute Neuts (auto) Absolute Nucleated RBC Nucleated RBC % Sodium 138 Potassium 5.0 Chloride 112 H Carbon Dioxide 21 L Anion Gap 5 BUN 55 H Creatinine 1.60 H Estim Creat Clear Calc 56 Estimated GFR 43 L Glucose 137 H POC Capillary Glucose 148 H Lactic Acid Calcium 9.8 Phosphorus Magnesium Total Bilirubin AST ALT Alkaline Phosphatase Ammonia < 9 L Total Protein Albumin Vancomycin Trough 02/09/24 02/09/24 02/10/24 16:44 20:58 01:09 WBC RBC Hgb Hct MCV MCH MCHC RDW Plt Count MPV Immature Gran % (Auto) Neut % (Auto) Lymph % (Auto) [place] % (Auto) Eos % (Auto) Baso % (Auto) Lymph # (Auto) [place] # (Auto) Eos # (Auto) Baso # (Auto) Abs Immat Gran (auto) Absolute Neuts (auto) Absolute Nucleated RBC Nucleated RBC % Sodium Potassium Chloride Carbon Dioxide Anion Gap BUN Creatinine Estim Creat Clear Calc Estimated GFR Glucose POC Capillary Glucose 153 H 164 H 195 H Lactic Acid Calcium Phosphorus Magnesium Total Bilirubin AST ALT Alkaline Phosphatase Ammonia Total Protein Albumin Vancomycin Trough 02/10/24 02/10/24 02/10/24 04:52 06:22 07:36 WBC 8.8 RBC 3.18 L Hgb 7.8 L Hct 25.5 L MCV 80.2 MCH 24.5 L MCHC 30.6 L RDW 18.1 H Plt Count 209 MPV 9.1 Immature Gran % (Auto) 0.8 H Neut % (Auto) 82.3 H Lymph % (Auto) 7.1 L [place] % (Auto) 6.0 Eos % (Auto) 3.3 Baso % (Auto) 0.5 Lymph # (Auto) 0.62 L [place] # (Auto) 0.5 Eos # (Auto) 0.3 Baso # (Auto) 0.0 Abs Immat Gran (auto) 0.07 H Absolute Neuts (auto) 7.2 H Absolute Nucleated RBC 0.020 H Nucleated RBC % 0.2 Sodium 140 Potassium 4.3 Chloride 111 H Carbon Dioxide 22 Anion Gap 7 BUN 48 H Creatinine 1.50 H Estim Creat Clear Calc 60 Estimated GFR 47 L Glucose 227 H POC Capillary Glucose 204 H 201 H Lactic Acid Calcium 10.0 Phosphorus 4.1 Magnesium 2.2 Total Bilirubin 0.6 AST 14 L ALT 11 Alkaline Phosphatase 123 Ammonia Total Protein 7.0 Albumin 3.0 L Vancomycin Trough 15.4 Quality VTE Prophylaxis VTE prophylaxis: mechanical ordered
[2024-02-10] MEDS: VANCOMYCIN 1,500 MG/NS 500 ML 1,500 MG/500 ML BAG 250 MG IVPB (08:36)
[2024-02-10] MEDS: PANTOPRAZOLE SODIUM IV 40 MG VIAL IV PUSH ×2 (08:36→21:13)
[2024-02-10] MEDS: FUROSEMIDE INJ 40 MG/4 ML VIAL IV PUSH (08:36)
[2024-02-10] MEDS: MUPIROCIN 2% OINT 22 GM TUBE 1 APPLIC EACH NARE ×2 (08:37→21:13)
[2024-02-10] MEDS: INSULIN ASPART (*BKC) 100 UNITS/ML SUB-Q ×3 (08:46→16:25)
[2024-02-10 09:57] LABS: Vancomycin Trough 20.2 ug/mL (10.0-20.0)
[2024-02-10] MEDS: DOXYCYCLINE 100 MG/NS 100 ML 100 MG/100 ML BAG IVPB ×2 (11:57→22:37)
[2024-02-10 12:26] LABS: Glucose Point of Care 224 mg/dl (65-105)
--- NOTE | 2024-02-10 15:28 | WPDGIPROGNO ---
Progress Note: A&P Assessment and Plan (1) Heme positive stool: Code(s): R19.5 - Other fecal abnormalities Status: Acute Assessment and Plan: no overt gib and h/h stable after initial drop staff did not report any melena clinically better continue with protonix twice daiy, favor conservative management unless obvious bleeding will follow from afar (2) Acute on chronic anemia: Code(s): D64.9 - Anemia, unspecified Status: Acute Assessment and Plan: probably multifactorial monitor hgb low but has been stable last couple days (3) Chronic anticoagulation: Code(s): Z79.01 - assisted (current) use of anticoagulants Status: Chronic Assessment and Plan: no hold for now (4) Atrial fibrillation with rapid ventricular response: Code(s): I48.91 - Unspecified atrial fibrillation Status: Acute (5) Acute on chronic renal failure: Code(s): N17.9 - Acute kidney failure, unspecified; N18.9 - Chronic kidney disease, unspecified Status: Acute (6) Hematuria: Code(s): R31.9 - Hematuria, unspecified Status: Resolved (7) Sepsis: Code(s): A41.9 - Sepsis, unspecified organism Status: Acute Subjective Date/time seen: 02/10/24 15:28 Interval history: no signs of gib, he is more awake and precedex was discontinued less septic, still in icu Review of Systems Review of Systems: All systems reviewed & are unremarkable except as noted in HPI and below Exam Narrative: General: More awake this morning,. On 3 L nasal cannula, in no acute distress neck supple heent- nares normal Lungs/Chest: coarse breath sounds bilaterally, decreased at bases, No wheezing. Cardiac: Irregularly irregular Abdomen: Normoactive bowel sounds. Morbidly Obese. Soft. NT. ND. Extremities: Bilateral feet have edema. He has chronic venous stasis changes and edema : Coats in place Neurologic: more awake, able to nod to questions and give me one-word answers, follows commands. Skin: As above Objective Data Vital Signs Vital Signs: Vital Signs - 24 hr 02/09/24 16:00 02/09/24 16:00 02/09/24 16:00 Temperature 97.5 F L Pulse Rate 59 L 59 L 59 L Respiratory Rate 13 13 Blood Pressure 98/55 L Pulse Oximetry 94 94 Oxygen Delivery High Flow Therapy with Na Oxygen Flow Rate 4 02/09/24 16:30 02/09/24 17:43 02/09/24 18:00 Temperature Pulse Rate 68 53 L 65 Respiratory Rate 18 14 Blood Pressure Pulse Oximetry Oxygen Delivery Oxygen Flow Rate 02/09/24 18:00 02/09/24 18:15 02/09/24 20:00 Temperature Pulse Rate 65 60 607 H Respiratory Rate 16 16 162 H Blood Pressure 96/61 L Pulse Oximetry 95 92 Oxygen Delivery Nasal Cannula Oxygen Flow Rate 3 02/09/24 20:00 02/09/24 20:00 02/09/24 20:00 Temperature 98.3 F Pulse Rate 71 66 67 Respiratory Rate 16 18 Blood Pressure 100/68 Pulse Oximetry 91 Oxygen Delivery Oxygen Flow Rate 02/09/24 20:38 02/09/24 22:00 02/09/24 22:00 Temperature Pulse Rate 75 77 Respiratory Rate 17 Blood Pressure Pulse Oximetry 93 Oxygen Delivery High Flow Nasal Cannula Oxygen Flow Rate 3 02/09/24 22:00 02/10/24 00:00 02/10/24 00:00 Temperature 98.3 F Pulse Rate 77 86 86 Respiratory Rate 18 18 Blood Pressure 107/66 Pulse Oximetry 93 91 Oxygen Delivery Nasal Cannula Oxygen Flow Rate 3 02/10/24 00:00 02/10/24 00:00 02/10/24 01:20 Temperature 97.4 F L Pulse Rate 86 70 91 Respiratory Rate 16 18 15 Blood Pressure 109/73 Pulse Oximetry 91 Oxygen Delivery Oxygen Flow Rate 02/10/24 01:56 02/10/24 02:00 02/10/24 02:00 Temperature Pulse Rate 89 92 92 Respiratory Rate 7 L 18 Blood Pressure 111/67 Pulse Oximetry 94 Oxygen Delivery Oxygen Flow Rate 02/10/24 03:50 02/10/24 04:00 02/10/24 04:00 Temperature Pulse Rate 82 88 88 Respiratory Rate 15 18 Blood Pressure Pulse Oximetry 92 Oxygen Delivery Nasal Cannula Oxygen Flow Rate 3 02/10/24 04:00 02/10/24 05:50 02/10/24 06:00 Temperature 98.3 F Pulse Rate 88 95 92 Respiratory Rate 16 15 Blood Pressure 120/61 Pulse Oximetry 95 Oxygen Delivery Oxygen Flow Rate 02/10/24 06:00 02/10/24 08:00 02/10/24 08:00 Temperature 97.6 F Pulse Rate 92 101 H 101 H Respiratory Rate 18 14 14 Blood Pressure 134/70 157/80 H Pulse Oximetry 97 95 Oxygen Delivery Oxygen Flow Rate 02/10/24 08:00 02/10/24 08:00 02/10/24 08:45 Temperature Pulse Rate 99 Respiratory Rate Blood Pressure Pulse Oximetry 95 93 Oxygen Delivery High Flow Nasal Cannula High Flow Nasal Cannula Oxygen Flow Rate 3 3 02/10/24 10:00 02/10/24 10:00 02/10/24 12:00 Temperature 97.6 F Pulse Rate 104 H 104 H 108 H Respiratory Rate 16 15 Blood Pressure 133/88 142/78 H Pulse Oximetry 95 99 Oxygen Delivery Oxygen Flow Rate 02/10/24 12:00 02/10/24 12:00 02/10/24 14:00 Temperature Pulse Rate 112 H 118 H Respiratory Rate 15 Blood Pressure 153/83 H Pulse Oximetry 93 96 Oxygen Delivery High Flow Nasal Cannula Oxygen Flow Rate 3 02/10/24 14:00 Temperature Pulse Rate 105 H Respiratory Rate Blood Pressure Pulse Oximetry Oxygen Delivery Oxygen Flow Rate Intake/Output Intake/Output: Intake & Output 02/07/24 02/08/24 02/09/24 02/10/24 23:59 23:59 23:59 23:59 Intake Total 6343.3 2451.5 1232.3 Output Total 600 3050 900 Balance 5743.3 -598.5 332.3 Meds/Results Medications: Active Medications Generic Name Dose Route Start Last Admin Trade Name Freq PRN Reason Stop Dose Admin Acetaminophen 650 mg 02/10/24 13:28 Acetaminophen Elixir 325 Mg/10.15 Ml Udc PO Q6H PRN Mild Pain (1-3) or Fever Dextrose 12.5 gm 02/08/24 10:49 Dextrose 50% 25 Gm/50 Ml Syringe IV PUSH PRN PRN Hypoglycemia Protocol Glucagon 1 mg 02/08/24 10:49 Glucagon For Inj 1 Mg Vial IM PRN PRN Hypoglycemia Protocol Glucose 15 gm 02/08/24 10:49 Glucose Oral Gel 15 Gm Of Glucse In 37.5 Gm Tube PO PRN PRN Hypoglycemia Protocol Meropenem 1 gm in 100 mls @ 200 mls/hr 02/08/24 14:00 02/10/24 14:43 IVPB 200 mls/hr Q8HR HERMILO Administration Dextrose 1,000 mls @ 100 mls/hr 02/08/24 10:49 Dextrose 5% 1,000 Ml IVPB PRN PRN Hypoglycemia Protocol Doxycycline Hyclate 100 mg in 100 mls @ 100 mls/hr 02/10/24 11:00 02/10/24 11:57 Vibramycin 100 Mg/Ns 100 Ml IVPB 100 mls/hr Q12H HERMILO Administration Vancomycin HCl 1,250 mg in 250 mls @ 166.667 mls/hr 02/11/24 09:00 Vancomycin 1,250 Mg/Ns 250 Ml IVPB Q24H HERMILO Insulin Aspart 4 - 8 units 02/08/24 13:00 02/10/24 12:29 Insulin Aspart (*Bkc) 100 Units/Ml SUB-Q 4 units Q4HR HERMILO Administration Protocol Levothyroxine Sodium 50 mcg 02/09/24 06:30 02/10/24 07:24 Levothyroxine Sodium Inj 100 Mcg/5 Ml Vial IV PUSH 50 mcg DAILY@0630 HERMILO Administration Multi-Ingred Cream/Lotion/Oil/Oint 1 applic 02/08/24 21:00 02/10/24 08:39 Mineral Oil/White Petrolatum Ointment EACH EYE Not Given Q12HR HERMILO Mupirocin 1 applic 02/09/24 09:00 02/10/24 08:37 Mupirocin 2% Oint 22 Gm Tube EACH NARE 1 applic Q12HR HERMILO Administration Pantoprazole Sodium 40 mg 02/08/24 21:00 02/10/24 08:36 Pantoprazole Sodium Iv 40 Mg Vial IV PUSH 40 mg Q12HR HERMILO Administration Radiology Results: ITS Impressions Head CT 02/08/24 08:08 Impression: No significant abnormality identified. Exam somewhat degraded by motion artifact. Atrophy and chronic white matter changes, as above. Chest/Abdomen/Pelvis CT 02/08/24 08:09 Impression: Exam degraded by motion artifact. Small right pleural effusion. Right paratracheal lymphadenopathy, nonspecific. Correlate for reactive/inflammatory nodes versus any possibility of lymphoma or metastatic disease. Questionable mild pulmonary edema versus motion artifact. Possible cystitis despite Coats catheter. Correlate with urinalysis. Cholelithiasis. Constipation. Bilateral ureteral stents with relatively stable right renal stones. No definite hydronephrosis. Chest X-Ray 02/10/24 06:24 Impression: Probable mild mixed alveolar and interstitial pulmonary edema. Correlate clinically for infection. Minimal right pleural effusion. Abdomen X-Ray 02/10/24 11:50 IMPRESSION: 1. Nasogastric tube in stomach. 2. Diffuse increased interstitial pattern most likely mild pulmonary edema with differential including atelectasis and/or pneumonia. 3. Cardiomegaly. Labs Labs: Laboratory Results - last 24 hr 02/09/24 02/09/24 02/10/24 16:44 20:58 01:09 WBC RBC Hgb Hct MCV MCH MCHC RDW Plt Count MPV Immature Gran % (Auto) Neut % (Auto) Lymph % (Auto) [place] % (Auto) Eos % (Auto) Baso % (Auto) Lymph # (Auto) [place] # (Auto) Eos # (Auto) Baso # (Auto) Abs Immat Gran (auto) Absolute Neuts (auto) Absolute Nucleated RBC Nucleated RBC % Sodium Potassium Chloride Carbon Dioxide Anion Gap BUN Creatinine Estim Creat Clear Calc Estimated GFR Glucose POC Capillary Glucose 153 H 164 H 195 H Calcium Phosphorus Magnesium Total Bilirubin AST ALT Alkaline Phosphatase Total Protein Albumin Vancomycin Trough 02/10/24 02/10/24 02/10/24 04:52 06:22 07:36 WBC 8.8 RBC 3.18 L Hgb 7.8 L Hct 25.5 L MCV 80.2 MCH 24.5 L MCHC 30.6 L RDW 18.1 H Plt Count 209 MPV 9.1 Immature Gran % (Auto) 0.8 H Neut % (Auto) 82.3 H Lymph % (Auto) 7.1 L [place] % (Auto) 6.0 Eos % (Auto) 3.3 Baso % (Auto) 0.5 Lymph # (Auto) 0.62 L [place] # (Auto) 0.5 Eos # (Auto) 0.3 Baso # (Auto) 0.0 Abs Immat Gran (auto) 0.07 H Absolute Neuts (auto) 7.2 H Absolute Nucleated RBC 0.020 H Nucleated RBC % 0.2 Sodium 140 Potassium 4.3 Chloride 111 H Carbon Dioxide 22 Anion Gap 7 BUN 48 H Creatinine 1.50 H Estim Creat Clear Calc 60 Estimated GFR 47 L Glucose 227 H POC Capillary Glucose 204 H 201 H Calcium 10.0 Phosphorus 4.1 Magnesium 2.2 Total Bilirubin 0.6 AST 14 L ALT 11 Alkaline Phosphatase 123 Total Protein 7.0 Albumin 3.0 L Vancomycin Trough 02/10/24 02/10/24 07:38 12:23 WBC RBC Hgb Hct MCV MCH MCHC RDW Plt Count MPV Immature Gran % (Auto) Neut % (Auto) Lymph % (Auto) [place] % (Auto) Eos % (Auto) Baso % (Auto) Lymph # (Auto) [place] # (Auto) Eos # (Auto) Baso # (Auto) Abs Immat Gran (auto) Absolute Neuts (auto) Absolute Nucleated RBC Nucleated RBC % Sodium Potassium Chloride Carbon Dioxide Anion Gap BUN Creatinine Estim Creat Clear Calc Estimated GFR Glucose POC Capillary Glucose 224 H Calcium Phosphorus Magnesium Total Bilirubin AST ALT Alkaline Phosphatase Total Protein Albumin Vancomycin Trough 20.2 H
--- NOTE | 2024-02-10 15:43 | WPDURCON ---
Assessment and Plan Assessment and plan (1) Right renal stone: Code(s): N20.0 - Calculus of kidney Status: Acute (2) Chronic indwelling Coats catheter: Code(s): Z97.8 - Presence of other specified devices Status: Acute (3) Hematuria: Code(s): R31.9 - Hematuria, unspecified Status: Resolved Plan Urology consulted for evaluation of gross hematuria. Patient is a poor historian, no family at bedside. Bedside NEWBORN PHOTOGRAPHER reports patient's baseline mental status is alert to self only, known history of dementia with behavioral disturbance. Upper extremities restrained. He has chronic bladder dysfunction managed with indwelling Coats catheter, changed monthly at his nursing facility. - Gross hematuria, likely traumatic. Chronic bladder dysfunction with indwelling Coats, changed monthly at nursing facility. Noted to have blood on hands and surrounding Coats on ICU admission. Likely pulled Coats into prostatic urethra causing bleeding and pain. Coats replaced with 18Fr 3-way, 30mL balloon, started on CBI. 02/08/24 CT negative for clots. Output initially clear, however, stopped flowing this morning. On bedside exam, Coats appeared misplaced. Balloon was deflated and advanced, yellow urine flowed. Balloon filled with 20mL. CBI discontinued. Continue monthly catheter changes at nursing facility. Ensure catheter off-tension and secured. - Right renal stone and bilateral ureteral stents. No follow-up since stent placement by Dr. Young in 12/2023. Recommend follow-up at tertiary care center such as [facility] or [facility] for ongoing stent and renal stone management given severity of comorbidities. Case management may need to assist with referral. Urology Consult Note HPI Date Seen: 02/10/24 Time Seen: 15:15 Requesting Physician: Toy Ba MD Primary Care Provider: Asael Bravo, Consult Narrative Reason for consult: Gross hematuria Narrative: 68yo male with dementia, pAFib, diastolic CHF, insulin-dependent DM, hypothyroidism, HTN, untreated JUN, chronic venous stasis dermatitis, chronic indwelling Coats catheter, kidney stones, chronic left heel wound with hx of osteomyelitis of left calcaneus with previous cultures growing Pseudomonas and MRSA, and other comorbidities who presented to ED via EMS from half-way with increased confusion and agitation. Started on meropenem and vancomycin. Given 3L NS bolus. Remained hypotensive, central line inserted, on norepinephrine gtt. Admitted to ICU. PERTINENT LABS: 02/10/24 - WBC 8.8, Hgb 7.8, Cr 1.5 02/08/24 - UA: 3+ protein, 3+ blood, 3+ leukocyte esterase, >100 RBC and WBC, nitrates, 4+ bacteria 02/08/24 - Blood cultures: gram-negative bacilli 1/2 bottles 02/08/24 - Urine culture: negative so far PERTINENT IMAGIN12/21/23 CT Abdomen/Pelvis - Moderate bilateral hydronephrosis. Ureters followed to bladder c/w vesicoureteral reflux. Air in right collecting system (chronic). Right ureteral and large renal stone. 02/08/24 CT Chest/Abdomen/Pelvis - Small right pleural effusion. Right paratracheal lymphadenopathy. Questionable mild pulmonary edema vs motion artifact. Possible cystitis despite Coats. Cholelithiasis. Constipation. Bilateral ureteral stents, stable right renal stones. No definite hydronephrosis. Review of Systems Review of Systems: ROS unobtainable: Yes unobtainable due to mental status [facility] Past Medical History Medical History Choledocholithiasis (05/2022) Chronic hyponatremia Chronic indwelling Coats catheter Chronic obstructive pulmonary disease Chronic osteomyelitis of left foot Chronic venous insufficiency Depression Diastolic congestive heart failure E coli bacteremia Gastroesophageal reflux disease Hyperlipidemia Hypertension Hypothyroidism Insulin dependent diabetes mellitus Kidney stones Morbid obesity Obstructive sleep apnea Non-compliant with CPAP. Paroxysmal atrial fibrillation Peripheral neuropathy Surgical History Surgical History History of abdominal surgery The patient has a large scar in the right lower abdomen just above the right groin and on palpation of his abdomen he has what feels like mesh that extends from side to side and has a course rough texture it also extends from just under the umbilicus to a couple of inches above the pubis History of appendectomy History of back surgery History of cataract extraction History of hemorrhoidectomy History of tonsillectomy and adenoidectomy Family History Family History Sibling Family history of heart disease in male family member before age 55 Family history of diabetes mellitus in first degree relative Patient's brother is Family history of obesity Hypertension Mother Family history of arthritis Patient's mother is Father Patient's father is Social History Social History Social History: Surrogate medical decision maker: Marlys Marrero, . Code status: Full code. Smoking packs per day: 1.5 Smoking cigarettes per day: 30.0 Years smoked: 15 Smoking pack-years: 22.50 Smoking status: Former smoker Second hand tobacco smoke exposure: Yes Alcohol intake: never Substance use: never Substance use type: does not use Lack of Transportation: No Lack of Food: Never True Current Housing: I Have Housing Concerned About Future Housing: No Difficulty Paying Gas/Electric Bills: No Difficulty Paying for Meds: No Currently Unemployed: No Education: High School Diploma/GED Difficulty w/ Childcare or Family Care: No Living arrangements: half-way Additional living arrangements comments: Resident at [facility]. to Marlys. They have 2 sons. He is nonambulatory and depends on a [place] lift for transfer. 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 Spiritual care concerns: No Agree to blood products: Yes Meds Home Medications and Allergies Home Medications ?Medication ?Instructions ?Recorded ?Confirmed ?Type ipratropium 0.5 mg-albuterol 3 mg 3 ml inhalation Q4H PRN Wheezing 02/15/21 02/08/24 History (2.5 mg base)/3 mL nebulization soln levothyroxine 100 mcg tablet 100 mcg PO DAILY 02/15/21 02/08/24 History pravastatin 40 mg tablet 40 mg PO HS 12/08/21 02/08/24 History multivitamin with minerals-folic 1 tablet PO DAILY 03/02/22 02/08/24 History acid 0.4 mg tablet apixaban 5 mg tablet (Eliquis) 5 mg PO Q12HR #60 tabs 07/01/22 02/08/24 Rx acetaminophen 325 mg capsule 650 mg PO Q4-6H PRN Pain (Scale 09/10/22 02/08/24 History (Tylenol) Score 1-3) sennosides 8.6 mg-docusate sodium 1 tablet PO BID 09/10/22 02/08/24 History 50 mg tablet (Senna Plus) melatonin 5 mg tablet 5 mg PO HS 03/10/23 02/08/24 History bupropion HCl 150 mg 24 hr tablet, 150 mg PO QAM #30 tabs 05/23/23 02/08/24 Rx extended release polyethylene glycol 3350 17 gram 17 g PO BID #30 ea 06/26/23 02/08/24 Rx oral powder packet (Miralax) insulin NPH-regular 70-30 U-100 25 unit subcut QAM 08/07/23 02/08/24 History insulin 100 unit/mL subcutaneous pen (Novolin 70-30 FlexPen U-100 Insulin) magnesium oxide 400 mg (241.3 mg 400 mg PO DAILY 08/07/23 02/08/24 History magnesium) tablet metoprolol succinate 25 mg 75 mg (3 x 25 mg) PO QAM #90 tabs 08/18/23 02/08/24 Rx tablet,extended release 24 hr (Toprol XL) nystatin 100,000 unit/gram topical 1 applic topical BID 11/30/23 02/08/24 History cream amlodipine 5 mg tablet (Norvasc) 5 mg PO DAILY #30 tabs 12/27/23 02/08/24 Rx famotidine 20 mg tablet 20 mg PO QHS #30 tabs 12/27/23 02/08/24 Rx insulin NPH-regular 70-30 U-100 15 unit (0.15 mL) subcut 1700 #15 12/27/23 02/08/24 Rx insulin 100 unit/mL subcutaneous mL pen (Novolin 70-30 FlexPen U-100 Insulin) lanolin alcohols-mineral 1 applic topical DAILY #113 grams 12/27/23 02/08/24 Rx oil-w.petrolatum-ceresin topical cream (Minerin Creme topical) pantoprazole 40 mg tablet,delayed 40 mg PO QAM #30 tabs 12/27/23 02/08/24 Rx release (Protonix) valsartan 40 mg tablet 40 mg PO DAILY #30 tabs 12/27/23 02/08/24 Rx brexpiprazole 0.5 mg tablet 0.5 mg PO DAILY 02/08/24 02/08/24 History (Rexulti) gabapentin 100 mg capsule 300 mg PO TID 02/08/24 02/08/24 History lisinopril 10 mg tablet 10 mg PO DAILY 02/08/24 02/08/24 History trazodone 50 mg tablet 75 mg PO HS 02/08/24 02/08/24 History Allergies Allergy/AdvReac Type Severity Reaction Status Date / Time No Known Allergies Allergy Verified 12/22/23 12:21 Vital Signs Vital Signs - 24 hr 02/09/24 16:00 02/09/24 16:00 02/09/24 16:00 Temperature 97.5 F L Pulse Rate 59 L 59 L 59 L Respiratory Rate 13 13 Blood Pressure 98/55 L Pulse Oximetry 94 94 Oxygen Delivery High Flow Therapy with Na Oxygen Flow Rate 4 02/09/24 16:30 02/09/24 17:43 02/09/24 18:00 Temperature Pulse Rate 68 53 L 65 Respiratory Rate 18 14 Blood Pressure Pulse Oximetry Oxygen Delivery Oxygen Flow Rate 02/09/24 18:00 02/09/24 18:15 02/09/24 20:00 Temperature Pulse Rate 65 60 607 H Respiratory Rate 16 16 162 H Blood Pressure 96/61 L Pulse Oximetry 95 92 Oxygen Delivery Nasal Cannula Oxygen Flow Rate 3 02/09/24 20:00 02/09/24 20:00 02/09/24 20:00 Temperature 98.3 F Pulse Rate 71 66 67 Respiratory Rate 16 18 Blood Pressure 100/68 Pulse Oximetry 91 Oxygen Delivery Oxygen Flow Rate 02/09/24 20:38 02/09/24 22:00 02/09/24 22:00 Temperature Pulse Rate 75 77 Respiratory Rate 17 Blood Pressure Pulse Oximetry 93 Oxygen Delivery High Flow Nasal Cannula Oxygen Flow Rate 3 02/09/24 22:00 02/10/24 00:00 02/10/24 00:00 Temperature 98.3 F Pulse Rate 77 86 86 Respiratory Rate 18 18 Blood Pressure 107/66 Pulse Oximetry 93 91 Oxygen Delivery Nasal Cannula Oxygen Flow Rate 3 02/10/24 00:00 02/10/24 00:00 02/10/24 01:20 Temperature 97.4 F L Pulse Rate 86 70 91 Respiratory Rate 16 18 15 Blood Pressure 109/73 Pulse Oximetry 91 Oxygen Delivery Oxygen Flow Rate 02/10/24 01:56 02/10/24 02:00 02/10/24 02:00 Temperature Pulse Rate 89 92 92 Respiratory Rate 7 L 18 Blood Pressure 111/67 Pulse Oximetry 94 Oxygen Delivery Oxygen Flow Rate 02/10/24 03:50 02/10/24 04:00 02/10/24 04:00 Temperature Pulse Rate 82 88 88 Respiratory Rate 15 18 Blood Pressure Pulse Oximetry 92 Oxygen Delivery Nasal Cannula Oxygen Flow Rate 3 02/10/24 04:00 02/10/24 05:50 02/10/24 06:00 Temperature 98.3 F Pulse Rate 88 95 92 Respiratory Rate 16 15 Blood Pressure 120/61 Pulse Oximetry 95 Oxygen Delivery Oxygen Flow Rate 02/10/24 06:00 02/10/24 08:00 02/10/24 08:00 Temperature 97.6 F Pulse Rate 92 101 H 101 H Respiratory Rate 18 14 14 Blood Pressure 134/70 157/80 H Pulse Oximetry 97 95 Oxygen Delivery Oxygen Flow Rate 02/10/24 08:00 02/10/24 08:00 02/10/24 08:45 Temperature Pulse Rate 99 Respiratory Rate Blood Pressure Pulse Oximetry 95 93 Oxygen Delivery High Flow Nasal Cannula High Flow Nasal Cannula Oxygen Flow Rate 3 3 02/10/24 10:00 02/10/24 10:00 02/10/24 12:00 Temperature 97.6 F Pulse Rate 104 H 104 H 108 H Respiratory Rate 16 15 Blood Pressure 133/88 142/78 H Pulse Oximetry 95 99 Oxygen Delivery Oxygen Flow Rate 02/10/24 12:00 02/10/24 12:00 02/10/24 14:00 Temperature Pulse Rate 112 H 118 H Respiratory Rate 15 Blood Pressure 153/83 H Pulse Oximetry 93 96 Oxygen Delivery High Flow Nasal Cannula Oxygen Flow Rate 3 02/10/24 14:00 Temperature Pulse Rate 105 H Respiratory Rate Blood Pressure Pulse Oximetry Oxygen Delivery Oxygen Flow Rate Exam Const: General: uncomfortable : Male General Exam: Yes tenderness Urinary Catheter: Urinary Catheter: urine clear Psych: Affect: Anxious affect present Results Labs 02/10/24 06:22 02/10/24 06:22 Labs: Short CBC 02/10/24 Range/Units 06:22 WBC 8.8 (4.5-10.0) K/mm3 Hgb 7.8 L (14.0-18.0) g/dL Hct 25.5 L (42.0-52.0) % Plt Count 209 (150-375) k/mm3 BMP 02/10/24 06:22 Sodium 140 Potassium 4.3 Chloride 111 H Carbon Dioxide 22 BUN 48 H Creatinine 1.50 H Glucose 227 H Calcium 10.0 Liver Function 02/10/24 Range/Units 06:22 Total Bilirubin 0.6 (0.2-1.3) mg/dL AST 14 L (17-59) U/L ALT 11 (6-50) U/L Alkaline Phosphatase 123 (38-126) U/L Albumin 3.0 L (3.5-5.1) g/dL
[2024-02-10 16:26] LABS: Glucose Point of Care 212 mg/dl (65-105)
[2024-02-10 19:59] LABS: Glucose Point of Care 195 mg/dl (65-105)
--- NOTE | 2024-02-10 21:00 | PC.NURSE ---
Assumed care of patient from RONNIE Haddad.
--- NOTE | 2024-02-10 23:46 | PC.NURSE ---
Report given to RONNIE Mejia.
[2024-02-11] VITALS (18 sets, daily range): BP systolic 147–185; BP diastolic 68–98; PULSE 79–118; RESP 16–24; TEMP 36.6–37.2; O2SAT 90–100
[2024-02-11 00:16] LABS: Glucose Point of Care 199 mg/dl (65-105)
[2024-02-11] MEDS: METOPROLOL TARTRATE 25 MG TABLET FEED TUBE ×3 (01:57→21:10)
[2024-02-11] MEDS: LEVOTHYROXINE SODIUM INJ 100 MCG/5 ML VIAL 50 MCG IV PUSH (05:28)
[2024-02-11] MEDS: MEROPENEM 1 GM/NS 100 ML 1 GM/100 ML BAG IVPB (05:28)
[2024-02-11 05:45] LABS: Basophils Percent Auto 0.3 % (0.2-1.2); Eosinophils Absolute Auto 0.4 K/mm3 (0-0.3); Eosinophils Percent Auto 3.2 % (0-4.4); Hematocrit 27.4 % (42.0-52.0); Hemoglobin 8.5 g/dL (14.0-18.0); Immature Granulocyte Absolute 0.13 K/mm3 (0.00-0.031); Immature Granulocyte Percent A 1.1 % (0-0.5); Lymphocytes Absolute Auto 0.83 K/mm3 (0.9-3.2); Lymphocytes Percent Auto 7.1 % (18.3-44.2); Mean Corpuscular Hemoglobin 24.7 pg (26-34); Mean Corpuscular Volume 79.7 fl (80-100); Monocytes Absolute Auto 0.8 K/mm3 (0.1-0.6); Monocytes Percent Auto 6.5 % (2.6-8.5); Neutrophils Absolute Auto 9.5 K/mm3 (1.3-6.7); Neutrophils Percent Auto 81.8 % (45.5-73.1); Platelet Count Result 222 k/mm3 (150-375); Red Blood Count 3.44 M/mm3 (4.6-6.20); Red Cell Distribution Width 18.6 % (11.5-14.5); White Blood Count 11.6 K/mm3 (4.5-10.0)
[2024-02-11 05:58] LABS: Alanine Aminotransferase 11 U/L (6-50); Alkaline Phosphatase 157 U/L (38-126); Anion Gap 4 mmol/L (4-12); Aspartate Amino Transferase 20 U/L (17-59); Bilirubin,Total 0.7 mg/dL (0.2-1.3); Blood Urea Nitrogen 38 mg/dL (9-20); Calcium 10.1 mg/dL (8.4-10.2); Carbon Dioxide 29 mmol/L (22-30); Chloride 111 mmol/L (98-107); Estimated CRCL calculation 69 ml/min; Estimated Glomerular Filt Rate 55; Glucose 250 mg/dL (65-110); Magnesium 1.9 mg/dL (1.6-2.3); Phosphorus 3.5 mg/dL (2.5-4.5); Potassium 4.2 mmol/L (3.4-5.0); Sodium 144 mmol/L (137-145)
[2024-02-11 06:28] LABS: IFOB Positive Control Positive; Immunochemical Fecal Occult Bl Negative (N)
[2024-02-11] MEDS: INSULIN ASPART (*BKC) 100 UNITS/ML SUB-Q ×2 (07:01→08:05)
[2024-02-11] MEDS: PANTOPRAZOLE SODIUM IV 40 MG VIAL IV PUSH ×2 (08:11→21:09)
[2024-02-11] MEDS: MUPIROCIN 2% OINT 22 GM TUBE 1 APPLIC EACH NARE ×2 (08:11→21:09)
[2024-02-11] MEDS: MINERAL OIL/WHITE PETROLATUM OINTMENT 1 APPLIC EACH EYE (08:11)
[2024-02-11] MEDS: VANCOMYCIN 1,250 MG/NS 250 ML 1,250 MG/250 ML BAG 166.67 MG IVPB (08:11)
[2024-02-11 08:24] LABS: Glucose Point of Care 241 mg/dl (65-105)
[2024-02-11] MEDS: DOXYCYCLINE 100 MG/NS 100 ML 100 MG/100 ML BAG IVPB (11:02)
--- NOTE | 2024-02-11 11:10 | WPDUROPN2 ---
Progress Note: A&P Assessment and Plan (1) Right renal stone: Code(s): N20.0 - Calculus of kidney Status: Acute (2) Hematuria: Code(s): R31.9 - Hematuria, unspecified Status: Resolved Assessment and Plan: Resolved Plan - Gross hematuria, likely traumatic. Chronic bladder dysfunction with indwelling Coats, changed monthly at nursing facility. Noted to have blood on hands and surrounding Coats on ICU admission. Likely pulled Coats into prostatic urethra causing bleeding and pain. Coats replaced with 18Fr 3-way, 30mL balloon, started on CBI. 02/08/24 CT negative for clots. Urine culture - mixed urogenital growth. Output initially clear, however, stopped flowing 02/10/24. Coats appeared misplaced. Balloon was deflated, catheter advanced, yellow urine flowed. Balloon filled with 20mL. CBI discontinued with good UOP. Continue monthly catheter changes at nursing facility. Ensure catheter off-tension and secured. - Right renal stone and bilateral ureteral stents. No follow-up since stent placement by Dr. Young 12/2023. Recommend follow-up at tertiary care center such as [facility] or [facility] for ongoing stent and renal stone management given severity of comorbidities. Poor surgical candidate. Case management may need to assist with referral. No plan for inpatient urology intervention. Signing off. Please call with questions. Subjective Subjective Date/Time Seen: 02/11/24 11:10 Interval history: Increase work of breathing on exam this morning; Per [facility], no issues with indwelling Coats since it was repositioned yesterday. Yellow urinary output. Exam Const: General: uncomfortable Other: alert with increased work of breathing Urinary Catheter: Urinary Catheter: urine clear (yellow) Psych: Affect: Anxious affect present Objective Data Vital Signs Vital Signs: Vital Signs - 24 hr 02/10/24 12:00 02/10/24 12:00 02/10/24 12:00 Temperature 97.6 F Pulse Rate 108 H 112 H Respiratory Rate 15 Blood Pressure 142/78 H Pulse Oximetry 99 93 Oxygen Delivery High Flow Nasal Cannula Oxygen Flow Rate 3 02/10/24 14:00 02/10/24 14:00 02/10/24 16:00 Temperature 98.1 F Pulse Rate 118 H 105 H 106 H Respiratory Rate 15 14 Blood Pressure 153/83 H 148/61 H Pulse Oximetry 96 97 Oxygen Delivery Oxygen Flow Rate 02/10/24 16:00 02/10/24 16:00 02/10/24 18:00 Temperature 98.3 F Pulse Rate 104 H 107 H Respiratory Rate 16 Blood Pressure 156/63 H Pulse Oximetry 97 96 Oxygen Delivery High Flow Nasal Cannula Oxygen Flow Rate 2 02/10/24 18:00 02/10/24 20:00 02/10/24 20:00 Temperature Pulse Rate 110 H 108 H Respiratory Rate Blood Pressure Pulse Oximetry 96 Oxygen Delivery High Flow Nasal Cannula Oxygen Flow Rate 2 02/10/24 20:22 02/10/24 22:00 02/10/24 22:00 Temperature 97.5 F L 97.6 F Pulse Rate 112 H 110 H 110 H Respiratory Rate 15 16 Blood Pressure 145/77 H 169/89 H Pulse Oximetry 96 95 Oxygen Delivery Oxygen Flow Rate 02/11/24 00:00 02/11/24 00:00 02/11/24 00:00 Temperature 98.3 F Pulse Rate 114 H 114 H 114 H Respiratory Rate 16 16 Blood Pressure 163/75 H Pulse Oximetry 95 95 Oxygen Delivery Nasal Cannula Oxygen Flow Rate 3 02/11/24 01:57 02/11/24 02:00 02/11/24 02:00 Temperature Pulse Rate 115 H 118 H 118 H Respiratory Rate 18 Blood Pressure 166/89 H Pulse Oximetry 95 Oxygen Delivery Oxygen Flow Rate 02/11/24 04:00 02/11/24 04:00 02/11/24 04:00 Temperature 97.9 F Pulse Rate 92 92 92 Respiratory Rate 18 17 Blood Pressure 162/68 H Pulse Oximetry 95 95 Oxygen Delivery Nasal Cannula Oxygen Flow Rate 3 02/11/24 06:00 02/11/24 06:00 02/11/24 08:00 Temperature 98.2 F Pulse Rate 95 98 100 Respiratory Rate 16 Blood Pressure 176/84 H Pulse Oximetry 91 Oxygen Delivery Oxygen Flow Rate 02/11/24 08:00 02/11/24 08:00 02/11/24 08:09 Temperature 99 F Pulse Rate 100 100 96 Respiratory Rate 17 17 Blood Pressure 185/91 H Pulse Oximetry 93 93 Oxygen Delivery Nasal Cannula Oxygen Flow Rate 3 02/11/24 08:46 02/11/24 10:00 02/11/24 10:00 Temperature Pulse Rate 86 86 Respiratory Rate 20 Blood Pressure 155/94 H Pulse Oximetry 93 90 Oxygen Delivery High Flow Nasal Cannula Oxygen Flow Rate 2 Intake/Output Intake/Output: Intake & Output 02/08/24 02/09/24 02/10/24 02/11/24 23:59 23:59 23:59 23:59 Intake Total 6343.3 2451.5 2808.3 Output Total 600 3050 4500 1400 Balance 5743.3 -598.5 -1691.7 -1400 Meds/Results Medications: Active Medications Generic Name Dose Route Start Last Admin Trade Name Freq PRN Reason Stop Dose Admin Acetaminophen 650 mg 02/10/24 13:28 Acetaminophen Elixir 325 Mg/10.15 Ml Udc PO Q6H PRN Mild Pain (1-3) or Fever Amlodipine Besylate 5 mg 02/12/24 09:00 Amlodipine Besylate 5 Mg Tablet PO DAILY HERMILO Dextrose 12.5 gm 02/08/24 10:49 Dextrose 50% 25 Gm/50 Ml Syringe IV PUSH PRN PRN Hypoglycemia Protocol Glucagon 1 mg 02/08/24 10:49 Glucagon For Inj 1 Mg Vial IM PRN PRN Hypoglycemia Protocol Glucose 15 gm 02/08/24 10:49 Glucose Oral Gel 15 Gm Of Glucse In 37.5 Gm Tube PO PRN PRN Hypoglycemia Protocol Meropenem 1 gm in 100 mls @ 200 mls/hr 02/08/24 14:00 02/11/24 05:28 IVPB 200 mls/hr Q8HR HERMILO Administration Dextrose 1,000 mls @ 100 mls/hr 02/08/24 10:49 Dextrose 5% 1,000 Ml IVPB PRN PRN Hypoglycemia Protocol Doxycycline Hyclate 100 mg in 100 mls @ 100 mls/hr 02/10/24 11:00 02/11/24 11:02 Vibramycin 100 Mg/Ns 100 Ml IVPB 100 mls/hr Q12H HERMILO Administration Vancomycin HCl 1,250 mg in 250 mls @ 166.667 mls/hr 02/11/24 09:00 02/11/24 08:11 Vancomycin 1,250 Mg/Ns 250 Ml IVPB 166.67 mls/hr Q24H HERMILO Administration Insulin Aspart 4 - 8 units 02/08/24 13:00 02/11/24 08:05 Insulin Aspart (*Bkc) 100 Units/Ml SUB-Q 4 units Q4HR HERMILO Administration Protocol Levothyroxine Sodium 50 mcg 02/09/24 06:30 02/11/24 05:28 Levothyroxine Sodium Inj 100 Mcg/5 Ml Vial IV PUSH 50 mcg DAILY@0630 HERMILO Administration Lisinopril 10 mg 02/12/24 09:00 Lisinopril 10 Mg Tablet PO DAILY HERMILO Metoprolol Tartrate 25 mg 02/11/24 01:25 02/11/24 08:09 Metoprolol Tartrate 25 Mg Tablet FEED TUBE 25 mg Q12HR HERMILO Administration Multi-Ingred Cream/Lotion/Oil/Oint 1 applic 02/08/24 21:00 02/11/24 08:11 Mineral Oil/White Petrolatum Ointment EACH EYE 1 applic Q12HR HERMILO Administration Mupirocin 1 applic 02/09/24 09:00 02/11/24 08:11 Mupirocin 2% Oint 22 Gm Tube EACH NARE 1 applic Q12HR HERMILO Administration Pantoprazole Sodium 40 mg 02/08/24 21:00 02/11/24 08:11 Pantoprazole Sodium Iv 40 Mg Vial IV PUSH 40 mg Q12HR HERMILO Administration Sodium Chloride 10 ml 02/11/24 14:00 Central Line Flush IV PUSH Q8HR HERMILO Sodium Chloride 20 ml 02/11/24 07:58 Central Line Flush IV PUSH PRN PRN after blood draws Radiology Results: ITS Impressions Head CT 02/08/24 08:08 Impression: No significant abnormality identified. Exam somewhat degraded by motion artifact. Atrophy and chronic white matter changes, as above. Chest/Abdomen/Pelvis CT 02/08/24 08:09 Impression: Exam degraded by motion artifact. Small right pleural effusion. Right paratracheal lymphadenopathy, nonspecific. Correlate for reactive/inflammatory nodes versus any possibility of lymphoma or metastatic disease. Questionable mild pulmonary edema versus motion artifact. Possible cystitis despite Coats catheter. Correlate with urinalysis. Cholelithiasis. Constipation. Bilateral ureteral stents with relatively stable right renal stones. No definite hydronephrosis. Chest X-Ray 02/10/24 06:24 Impression: Probable mild mixed alveolar and interstitial pulmonary edema. Correlate clinically for infection. Minimal right pleural effusion. Abdomen X-Ray 02/10/24 11:50 IMPRESSION: 1. Nasogastric tube in stomach. 2. Diffuse increased interstitial pattern most likely mild pulmonary edema with differential including atelectasis and/or pneumonia. 3. Cardiomegaly. Labs Labs: Laboratory Results - last 24 hr 02/10/24 02/10/24 02/10/24 12:23 16:23 19:51 WBC RBC Hgb Hct MCV MCH MCHC RDW Plt Count MPV Immature Gran % (Auto) Neut % (Auto) Lymph % (Auto) [place] % (Auto) Eos % (Auto) Baso % (Auto) Lymph # (Auto) [place] # (Auto) Eos # (Auto) Baso # (Auto) Abs Immat Gran (auto) Absolute Neuts (auto) Absolute Nucleated RBC Nucleated RBC % Sodium Potassium Chloride Carbon Dioxide Anion Gap BUN Creatinine Estim Creat Clear Calc Estimated GFR Glucose POC Capillary Glucose 224 H 212 H 195 H Calcium Phosphorus Magnesium Total Bilirubin AST ALT Alkaline Phosphatase Total Protein Albumin Stl Occult Blood (IFOB) 02/11/24 02/11/24 02/11/24 00:13 05:24 08:05 WBC 11.6 H RBC 3.44 L Hgb 8.5 L Hct 27.4 L MCV 79.7 L MCH 24.7 L MCHC 31.0 L RDW 18.6 H Plt Count 222 MPV 9.0 Immature Gran % (Auto) 1.1 H Neut % (Auto) 81.8 H Lymph % (Auto) 7.1 L [place] % (Auto) 6.5 Eos % (Auto) 3.2 Baso % (Auto) 0.3 Lymph # (Auto) 0.83 L [place] # (Auto) 0.8 H Eos # (Auto) 0.4 H Baso # (Auto) 0.0 Abs Immat Gran (auto) 0.13 H Absolute Neuts (auto) 9.5 H Absolute Nucleated RBC 0.000 Nucleated RBC % 0.0 Sodium 144 Potassium 4.2 Chloride 111 H Carbon Dioxide 29 Anion Gap 4 BUN 38 H D Creatinine 1.30 Estim Creat Clear Calc 69 Estimated GFR 55 L Glucose 250 H POC Capillary Glucose 199 H 241 H Calcium 10.1 Phosphorus 3.5 Magnesium 1.9 Total Bilirubin 0.7 AST 20 ALT 11 Alkaline Phosphatase 157 H Total Protein 7.0 Albumin 3.0 L Stl Occult Blood (IFOB) Negative
[2024-02-11 11:20] LABS: Glucose Point of Care 151 mg/dl (65-105)
--- NOTE | 2024-02-11 11:23 | PCNFU ---
Nutrition Follow-Up Complete: Inadequate energy intake related to inability to meet nutrition needs PO, increased needs from wounds as evidenced by NPO day 2, decreased consciousness Goal: Meet estimated protein energy needs Patient is progressing towards goal. We will continue current goal. Pt current nutrition is Glucerna 1.2 at 50 ml/hr Nutrition recommendation:Loki BID flush and plans for goal rate of 65 ml/hr today. Last recorded weight is 126 kg, stable. Bowel Motility: +BM reported 01/11 Labs Reviewed:Glu 250, BUN 38, Alb 3.0 Meds Noted:Meropenem, NovoLog Skin: Stage 3-left heel Additional Notes: Patient remains on a NGT feedings of Glucerna 1.2 at 50 ml/hr with plans for advancing to goal rate today to 65 ml/hr. Recommending Loki BID for wound healing via flush. Agree with diet orders. Monitor tube feeding tolerance, swallowing ability, labs, weights, output, wounds, plan of care Follow up Tuesdays and Fridays
[2024-02-11] MEDS: lisinopriL 10 MG TABLET PO (12:28)
[2024-02-11] MEDS: amLODIPine BESYLATE 5 MG TABLET PO (12:29)
[2024-02-11 12:41] LABS: Alveolar/Arterial O2 Gradient 153.3 mmHg; Base Excess ABG 3.8 mEq/l (+/-2.0); Fractional Inspired Oxygen 40 %; HCO3 ABG 27.4 mEq/l (22.0-26.0); Oxygen Content ABG 13.1 %vol (16.0-22.0); Oxygen Saturation ABG 97.3 % (95.0-100.0); Oxyhemoglobin 95.9 % THb (90.0-100.0); PCO2 ABG 37.6 mmHg (35.0-45.0); PO2 ABG 88.7 mmHg (80.0-100.0); PO2 FiO2 Ratio Arterial Blood 2.22 %; Total Hemoglobin 9.6 g/dL (12.0-18.0); pH ABG 7.481 (7.350-7.450)
[2024-02-11 12:43] LABS: Device NON-INVASIVE VENT; Modified Allen's Test Pass; Non-Invasive Expiratory Pressure 8 CMH2O; Non-Invasive Inspiratory Pressure 16 CMH2O; Non-Invasive Vent Rate 20 /MIN; Site Drawn RIGHT RADIAL
[2024-02-11] MEDS: CENTRAL LINE FLUSH 10 ML IV PUSH ×2 (13:36→21:10)
[2024-02-11] MEDS: levoFLOXacin 750 MG TABLET PO (13:36)
--- NOTE | 2024-02-11 15:35 | P.PNIM_ITS ---
Progress Note: A&P Assessment and Plan (1) Sepsis: Code(s): A41.9 - Sepsis, unspecified organism Status: Acute Assessment and Plan: Likely Secondary to UTI CT scan reviewed He has wounds on his skin but they do not appear to be infected 02/07: Blood cultures growing gram-negative bacilli /2 bottles 02/07: Urine culture negative so far 02/09: will repeat blood cultures Discontinue IV fluids Off Levophed, his blood pressures are much improved Continue vancomycin and meropenem (02/07) 02/08/2024: CT chest abdomen and pelvis Impression: Exam degraded by motion artifact. Small right pleural effusion. Right paratracheal lymphadenopathy, nonspecific. Correlate for reactive/inflammatory nodes versus any possibility of lymphoma or metastatic disease. Questionable mild pulmonary edema versus motion artifact. Possible cystitis despite Coats catheter. Correlate with urinalysis. Cholelithiasis. Constipation. Bilateral ureteral stents with relatively stable right renal stones. No definite hydronephrosis. (2) JHONY (acute kidney injury): Code(s): N17.9 - Acute kidney failure, unspecified Status: Acute Assessment and Plan: Likely secondary to septic shock, infection, hypotension. -patient on CBI, will be unable to check urine lytes -patient had hematuria after switching his catheter. Likely traumatic -urine is more clear this morning -urine output has been adequate, creatinine stable -CT scan of the abdomen pelvis shows stents in place with no hydronephrosis -creatinine is stable, if it continues to increase or urine output decreases will have Nephrology follow the patient (3) Encephalopathy: Code(s): G93.40 - Encephalopathy, unspecified Status: Acute Assessment and Plan: Head CT negative. Patient also received Versed in the ER Likely toxic metabolic encephalopathy Avoid sedatives Off Precedex infusion -patient more awake this morning, able to nod to questions and follow commands which she was not doing yesterday (4) Type 2 diabetes mellitus with hyperglycemia, with long-term current use of insulin: Code(s): E11.65 - Type 2 diabetes mellitus with hyperglycemia; Z79.4 - assisted (current) use of insulin Status: Chronic Assessment and Plan: Continue Sliding scale insulin and Accu-Cheks (5) Atrial fibrillation with rapid ventricular response: Code(s): I48.91 - Unspecified atrial fibrillation Status: Chronic Assessment and Plan: Currently holding Accu-Cheks due to hematuria and anemia (6) GI bleed: Code(s): K92.2 - Gastrointestinal hemorrhage, unspecified Status: Acute Assessment and Plan: Patient has history of GI bleed and positive Hemoccult. Has drop in hemoglobin since last admission. He is on anticoagulation will be held IV Protonix q.12 hours GI has been consulted, appreciate evaluation and recommendations -stool for occult blood pending -Monitor hemoglobin and transfuse if needed -hemoglobin has been stable this morning Continue NPO status (7) Anemia: Qualifiers: Anemia type: unspecified type Qualified Code(s): D64.9 - Anemia, unspecified Code(s): D64.9 - Anemia, unspecified Status: Acute Assessment and Plan: See above (8) Hypothyroidism: Code(s): E03.9 - Hypothyroidism, unspecified Status: Chronic Assessment and Plan: Continue IV levothyroxine (9) Acute respiratory failure: Code(s): J96.00 - Acute respiratory failure, unspecified whether with hypoxia or hypercapnia Status: Acute Assessment and Plan: Patient was placed on BiPAP as he became obtunded after receiving Versed Now he has poor arousable and moving and pulling on his mask Currently on nasal cannula, if he does not tolerate will place him on Vapotherm or Airvo CT chest showed right paratracheal lymphadenopathy, question mild pulmonary edema versus motion artifact ABG reviewed -since patient is off Levophed and blood pressure is high, will diurese today Plan PSeudomonas bacteremia likely from UTI repeat culture pendign for now Continue levaquin monitor Lymphoma vs metastases Pulmonology consulted monitor Anemia hb 8.5 iron panel pending GI eval noted patient and since patient does not have any overt bleeding will contineu PPI monitor Hematuria s/p CBI and urine clear Urology noted it is likely traumatic DVT prophylaxis -SCD, hold chemical prophylaxis/anticoagulation due to hematuria and anemia secondary to likely GI bleed Stress ulcer prophylaxis -Protonix IV q.12 hours Nutrition -NPO Code Status -full code Subjective Date/time seen: 02/11/24 15:35 Interval history: Patient comfortable at bedside Review of Systems Review of Systems: Unable to obtain accurately given clinical condition as above. All systems reviewed & are unremarkable except as noted in HPI and below ROS unobtainable: Yes unobtainable due to medical condition and unobtainable due to mental status Exam Narrative: General: More awake this morning,. On 3 L nasal cannula, in no acute distress Lungs/Chest: Trachea central coarse breath sounds bilaterally, decreased at bases, No crackles or wheezing. Cardiac: Irregularly irregular, rate in the 100-110 Abdomen: Normoactive bowel sounds. Morbidly Obese. Soft. NT. ND. There appears and mesh underlying the skin in the midline Extremities: Bilateral feet have edema. He has 2 superficial wounds on the lateral aspect of left leg. He also has a wound which does not appear infected on the left heel. He has chronic venous stasis changes and edema : Coats in place Neurologic: Patient is off Precedex infusion, more awake, able to nod to questions and give me one-word answers, follows commands and upper extremities. Skin: As above Objective Data Vital Signs Vital Signs: Vital Signs - 24 hr 02/10/24 16:00 02/10/24 16:00 02/10/24 16:00 Temperature 98.1 F Pulse Rate 106 H 104 H Respiratory Rate 14 Blood Pressure 148/61 H Pulse Oximetry 97 97 Oxygen Delivery High Flow Nasal Cannula Oxygen Flow Rate 2 Fraction of Inspired Oxygen 02/10/24 18:00 02/10/24 18:00 02/10/24 20:00 Temperature 98.3 F Pulse Rate 107 H 110 H Respiratory Rate 16 Blood Pressure 156/63 H Pulse Oximetry 96 96 Oxygen Delivery High Flow Nasal Cannula Oxygen Flow Rate 2 Fraction of Inspired Oxygen 02/10/24 20:00 02/10/24 20:22 02/10/24 22:00 Temperature 97.5 F L 97.6 F Pulse Rate 108 H 112 H 110 H Respiratory Rate 15 16 Blood Pressure 145/77 H 169/89 H Pulse Oximetry 96 95 Oxygen Delivery Oxygen Flow Rate Fraction of Inspired Oxygen 02/10/24 22:00 02/11/24 00:00 02/11/24 00:00 Temperature Pulse Rate 110 H 114 H 114 H Respiratory Rate 16 Blood Pressure Pulse Oximetry 95 Oxygen Delivery Nasal Cannula Oxygen Flow Rate 3 Fraction of Inspired Oxygen 02/11/24 00:00 02/11/24 01:57 02/11/24 02:00 Temperature 98.3 F Pulse Rate 114 H 115 H 118 H Respiratory Rate 16 Blood Pressure 163/75 H Pulse Oximetry 95 Oxygen Delivery Oxygen Flow Rate Fraction of Inspired Oxygen 02/11/24 02:00 02/11/24 04:00 02/11/24 04:00 Temperature Pulse Rate 118 H 92 92 Respiratory Rate 18 18 Blood Pressure 166/89 H Pulse Oximetry 95 95 Oxygen Delivery Nasal Cannula Oxygen Flow Rate 3 Fraction of Inspired Oxygen 02/11/24 04:00 02/11/24 06:00 02/11/24 06:00 Temperature 97.9 F 98.2 F Pulse Rate 92 95 98 Respiratory Rate 17 16 Blood Pressure 162/68 H 176/84 H Pulse Oximetry 95 91 Oxygen Delivery Oxygen Flow Rate Fraction of Inspired Oxygen 02/11/24 08:00 02/11/24 08:00 02/11/24 08:00 Temperature 99 F Pulse Rate 100 100 100 Respiratory Rate 17 17 Blood Pressure 185/91 H Pulse Oximetry 93 93 Oxygen Delivery Nasal Cannula Oxygen Flow Rate 3 Fraction of Inspired Oxygen 02/11/24 08:09 02/11/24 08:46 02/11/24 10:00 Temperature Pulse Rate 96 86 Respiratory Rate Blood Pressure Pulse Oximetry 93 Oxygen Delivery High Flow Nasal Cannula Oxygen Flow Rate 2 Fraction of Inspired Oxygen 02/11/24 10:00 02/11/24 12:00 02/11/24 12:00 Temperature 98.9 F Pulse Rate 86 90 86 Respiratory Rate 20 24 H Blood Pressure 155/94 H 167/88 H Pulse Oximetry 90 93 Oxygen Delivery Oxygen Flow Rate Fraction of Inspired Oxygen 02/11/24 12:25 02/11/24 12:25 02/11/24 14:00 Temperature Pulse Rate 89 82 Respiratory Rate 22 H Blood Pressure Pulse Oximetry 100 100 Oxygen Delivery BiPAP BiPAP Oxygen Flow Rate Fraction of Inspired Oxygen 40 02/11/24 14:00 Temperature Pulse Rate 82 Respiratory Rate 18 Blood Pressure 158/96 H Pulse Oximetry 99 Oxygen Delivery Oxygen Flow Rate Fraction of Inspired Oxygen Intake/Output Intake/Output: Intake & Output 02/08/24 02/09/24 02/10/24 02/11/24 23:59 23:59 23:59 23:59 Intake Total 6343.3 2451.5 2808.3 Output Total 600 3050 4500 1400 Balance 5743.3 -598.5 -1691.7 -1400 Meds/Results Medications: Active Medications Generic Name Dose Route Start Last Admin Trade Name Freq PRN Reason Stop Dose Admin Acetaminophen 650 mg 02/10/24 13:28 Acetaminophen Elixir 325 Mg/10.15 Ml Udc PO Q6H PRN Mild Pain (1-3) or Fever Amlodipine Besylate 5 mg 02/11/24 11:40 02/11/24 12:29 Amlodipine Besylate 5 Mg Tablet PO 5 mg DAILY HERMILO Administration Dextrose 12.5 gm 02/08/24 10:49 Dextrose 50% 25 Gm/50 Ml Syringe IV PUSH PRN PRN Hypoglycemia Protocol Glucagon 1 mg 02/08/24 10:49 Glucagon For Inj 1 Mg Vial IM PRN PRN Hypoglycemia Protocol Glucose 15 gm 02/08/24 10:49 Glucose Oral Gel 15 Gm Of Glucse In 37.5 Gm Tube PO PRN PRN Hypoglycemia Protocol Dextrose 1,000 mls @ 100 mls/hr 02/08/24 10:49 Dextrose 5% 1,000 Ml IVPB PRN PRN Hypoglycemia Protocol Vancomycin HCl 1,250 mg in 250 mls @ 166.667 mls/hr 02/11/24 09:00 02/11/24 08:11 Vancomycin 1,250 Mg/Ns 250 Ml IVPB 02/14/24 23:59 166.67 mls/hr Q24H HERMILO Administration Insulin Aspart 4 - 8 units 02/08/24 13:00 02/11/24 11:42 Insulin Aspart (*Bkc) 100 Units/Ml SUB-Q Not Given Q4HR HERMILO Protocol Levofloxacin 750 mg 02/11/24 14:00 02/11/24 13:36 Levofloxacin 750 Mg Tablet PO 02/21/24 14:01 750 mg DAILY@1400 HERMILO Administration Levothyroxine Sodium 50 mcg 02/09/24 06:30 02/11/24 05:28 Levothyroxine Sodium Inj 100 Mcg/5 Ml Vial IV PUSH 50 mcg DAILY@0630 HERMILO Administration Lisinopril 10 mg 02/11/24 11:40 02/11/24 12:28 Lisinopril 10 Mg Tablet PO 10 mg DAILY HERMILO Administration Metoprolol Tartrate 25 mg 02/11/24 01:25 02/11/24 08:09 Metoprolol Tartrate 25 Mg Tablet FEED TUBE 25 mg Q12HR HERMILO Administration Multi-Ingred Cream/Lotion/Oil/Oint 1 applic 02/08/24 21:00 02/11/24 08:11 Mineral Oil/White Petrolatum Ointment EACH EYE 1 applic Q12HR HERMILO Administration Mupirocin 1 applic 02/09/24 09:00 02/11/24 08:11 Mupirocin 2% Oint 22 Gm Tube EACH NARE 1 applic Q12HR HERMILO Administration Pantoprazole Sodium 40 mg 02/08/24 21:00 02/11/24 08:11 Pantoprazole Sodium Iv 40 Mg Vial IV PUSH 40 mg Q12HR HERMILO Administration Sodium Chloride 10 ml 02/11/24 14:00 02/11/24 13:36 Central Line Flush IV PUSH 10 ml Q8HR HERMILO Administration Sodium Chloride 20 ml 02/11/24 07:58 Central Line Flush IV PUSH PRN PRN after blood draws Radiology Results: ITS Impressions Head CT 02/08/24 08:08 Impression: No significant abnormality identified. Exam somewhat degraded by motion artifact. Atrophy and chronic white matter changes, as above. Chest/Abdomen/Pelvis CT 02/08/24 08:09 Impression: Exam degraded by motion artifact. Small right pleural effusion. Right paratracheal lymphadenopathy, nonspecific. Correlate for re active/inflammatory nodes versus any possibility of lymphoma or metastatic disease. Questionable mild pulmonary edema versus motion artifact. Possible cystitis despite Coats catheter. Correlate with urinalysis. Cholelithiasis. Constipation. Bilateral ureteral stents with relatively stable right renal stones. No definite hydronephrosis. Abdomen X-Ray 02/10/24 11:50 IMPRESSION: 1. Nasogastric tube in stomach. 2. Diffuse increased interstitial pattern most likely mild pulmonary edema with differential including atelectasis and/or pneumonia. 3. Cardiomegaly. Chest X-Ray 02/11/24 12:51 Impression: 1: Cardiomegaly with interstitial edema. 2: Small right pleural effusion. Labs Labs: Laboratory Results - last 24 hr 02/10/24 02/10/24 02/11/24 16:23 19:51 00:13 WBC RBC Hgb Hct MCV MCH MCHC RDW Plt Count MPV Immature Gran % (Auto) Neut % (Auto) Lymph % (Auto) [place] % (Auto) Eos % (Auto) Baso % (Auto) Lymph # (Auto) [place] # (Auto) Eos # (Auto) Baso # (Auto) Abs Immat Gran (auto) Absolute Neuts (auto) Absolute Nucleated RBC Nucleated RBC % Puncture Site ABG pH ABG pCO2 ABG pO2 ABG PO2/FiO2 Ratio ABG HCO3 ABG O2 Saturation ABG O2 Content ABG Base Excess A-a Gradient Oxyhemoglobin Total Hemoglobin O2 Delivery Device O2 Liters/Min Vent Rate FiO2 Expiratory Pressure Inspiratory Pressure Sodium Potassium Chloride Carbon Dioxide Anion Gap BUN Creatinine Estim Creat Clear Calc Estimated GFR Glucose POC Capillary Glucose 212 H 195 H 199 H Calcium Phosphorus Magnesium Total Bilirubin AST ALT Alkaline Phosphatase Total Protein Albumin Stl Occult Blood (IFOB) 02/11/24 02/11/24 02/11/24 05:24 08:05 11:15 WBC 11.6 H RBC 3.44 L Hgb 8.5 L Hct 27.4 L MCV 79.7 L MCH 24.7 L MCHC 31.0 L RDW 18.6 H Plt Count 222 MPV 9.0 Immature Gran % (Auto) 1.1 H Neut % (Auto) 81.8 H Lymph % (Auto) 7.1 L [place] % (Auto) 6.5 Eos % (Auto) 3.2 Baso % (Auto) 0.3 Lymph # (Auto) 0.83 L [place] # (Auto) 0.8 H Eos # (Auto) 0.4 H Baso # (Auto) 0.0 Abs Immat Gran (auto) 0.13 H Absolute Neuts (auto) 9.5 H Absolute Nucleated RBC 0.000 Nucleated RBC % 0.0 Puncture Site ABG pH ABG pCO2 ABG pO2 ABG PO2/FiO2 Ratio ABG HCO3 ABG O2 Saturation ABG O2 Content ABG Base Excess A-a Gradient Oxyhemoglobin Total Hemoglobin O2 Delivery Device O2 Liters/Min Vent Rate FiO2 Expiratory Pressure Inspiratory Pressure Sodium 144 Potassium 4.2 Chloride 111 H Carbon Dioxide 29 Anion Gap 4 BUN 38 H D Creatinine 1.30 Estim Creat Clear Calc 69 Estimated GFR 55 L Glucose 250 H POC Capillary Glucose 241 H 151 H Calcium 10.1 Phosphorus 3.5 Magnesium 1.9 Total Bilirubin 0.7 AST 20 ALT 11 Alkaline Phosphatase 157 H Total Protein 7.0 Albumin 3.0 L Stl Occult Blood (IFOB) Negative 02/11/24 12:38 WBC RBC Hgb Hct MCV MCH MCHC RDW Plt Count MPV Immature Gran % (Auto) Neut % (Auto) Lymph % (Auto) [place] % (Auto) Eos % (Auto) Baso % (Auto) Lymph # (Auto) [place] # (Auto) Eos # (Auto) Baso # (Auto) Abs Immat Gran (auto) Absolute Neuts (auto) Absolute Nucleated RBC Nucleated RBC % Puncture Site Right radial ABG pH 7.481 H ABG pCO2 37.6 ABG pO2 88.7 ABG PO2/FiO2 Ratio 2.22 ABG HCO3 27.4 H ABG O2 Saturation 97.3 ABG O2 Content 13.1 L ABG Base Excess 3.8 A-a Gradient 153.3 Oxyhemoglobin 95.9 Total Hemoglobin 9.6 L O2 Delivery Device Non-invasive vent O2 Liters/Min Not Reportable Vent Rate 20 FiO2 40 Expiratory Pressure 8 Inspiratory Pressure 16 Sodium Potassium Chloride Carbon Dioxide Anion Gap BUN Creatinine Estim Creat Clear Calc Estimated GFR Glucose POC Capillary Glucose Calcium Phosphorus Magnesium Total Bilirubin AST ALT Alkaline Phosphatase Total Protein Albumin Stl Occult Blood (IFOB) Quality VTE Prophylaxis VTE prophylaxis: mechanical ordered
[2024-02-11 16:44] LABS: Glucose Point of Care 84 mg/dl (65-105)
[2024-02-11 17:13] LABS: Iron 46 ug/dL (49-181)
[2024-02-11 17:22] LABS: Percent Iron Saturation 30 % (20-50)
[2024-02-11] MEDS: FUROSEMIDE INJ 40 MG/4 ML VIAL 20 MG IV PUSH (20:50)
[2024-02-11 21:29] LABS: Glucose Point of Care 176 mg/dl (65-105)
[2024-02-12] VITALS (15 sets, daily range): BP systolic 157–187; BP diastolic 72–99; PULSE 82–118; RESP 17–29; TEMP 36.6–37.4; O2SAT 90–100
[2024-02-12 02:49] LABS: Glucose Point of Care 274 mg/dl (65-105)
[2024-02-12] MEDS: INSULIN ASPART (*BKC) 100 UNITS/ML SUB-Q ×4 (02:51→21:56)
[2024-02-12] MEDS: CENTRAL LINE FLUSH 10 ML IV PUSH (05:35)
[2024-02-12] MEDS: LEVOTHYROXINE SODIUM INJ 100 MCG/5 ML VIAL 50 MCG IV PUSH (05:35)
[2024-02-12 05:43] LABS: Basophils Absolute Auto 0.1 K/mm3 (0.0-0.1); Basophils Percent Auto 0.4 % (0.2-1.2); Eosinophils Absolute Auto 0.2 K/mm3 (0-0.3); Eosinophils Percent Auto 1.4 % (0-4.4); Hematocrit 29.3 % (42.0-52.0); Hemoglobin 8.9 g/dL (14.0-18.0); Immature Granulocyte Absolute 0.14 K/mm3 (0.00-0.031); Lymphocytes Absolute Auto 0.83 K/mm3 (0.9-3.2); Mean Corpuscular HGB Conc 30.4 g/dl (32-36); Mean Corpuscular Hemoglobin 24.7 pg (26-34); Mean Corpuscular Volume 81.2 fl (80-100); Mean Platelet Volume 9.2 fl (7.4-10.4); Monocytes Percent Auto 7.2 % (2.6-8.5); Neutrophils Absolute Auto 11.7 K/mm3 (1.3-6.7); Nucleated Red Blood Cells Perc 0.1 % (0.0-0.2); Platelet Count Result 235 k/mm3 (150-375); Red Blood Count 3.61 M/mm3 (4.6-6.20); Red Cell Distribution Width 18.5 % (11.5-14.5); White Blood Count 13.9 K/mm3 (4.5-10.0)
[2024-02-12 05:52] LABS: Alanine Aminotransferase 11 U/L (6-50); Albumin Level 3.1 g/dL (3.5-5.1); Alkaline Phosphatase 146 U/L (38-126); Anion Gap 4 mmol/L (4-12); Aspartate Amino Transferase 20 U/L (17-59); Bilirubin,Total 0.7 mg/dL (0.2-1.3); Blood Urea Nitrogen 41 mg/dL (9-20); Calcium 10.3 mg/dL (8.4-10.2); Carbon Dioxide 31 mmol/L (22-30); Chloride 112 mmol/L (98-107); Estimated CRCL calculation 69 ml/min; Estimated Glomerular Filt Rate 55; Glucose 292 mg/dL (65-110); Magnesium 1.8 mg/dL (1.6-2.3); Phosphorus 3.5 mg/dL (2.5-4.5); Potassium 4.1 mmol/L (3.4-5.0); Sodium 147 mmol/L (137-145)
[2024-02-12 07:35] LABS: Glucose Point of Care 266 mg/dl (65-105)
--- NOTE | 2024-02-12 08:05 | WPDUROPN2 ---
Progress Note: A&P Assessment and Plan (1) Bilateral renal stones: Code(s): N20.0 - Calculus of kidney Status: Acute Assessment and Plan: Patient had stents placed in earlier this year. He had a right ureteral stone at that time. His CT scan now was of poor quality. There was no mention of ureteral stone but this is questionable. He was to have followed up at a tertiary care center given his comorbid conditions and anesthesia hesitation to take care of him at this facility. Once his current status improves will discuss further. May need to repeat CT scan once he is less combative and can lay still to evaluate the ureter better. If stones are truly in the kidneys then 1 possibility is simply to remove the stents. Subjective Subjective Date/Time Seen: 02/12/24 08:05 Interval history: Patient in ICU. Confused at this time Objective Data Vital Signs Vital Signs: Vital Signs - 24 hr 02/11/24 08:09 02/11/24 08:46 02/11/24 10:00 Temperature Pulse Rate 96 86 Respiratory Rate Blood Pressure Pulse Oximetry 93 Oxygen Delivery High Flow Nasal Cannula Oxygen Flow Rate 2 Fraction of Inspired Oxygen 02/11/24 10:00 02/11/24 12:00 02/11/24 12:00 Temperature 37.2 C Pulse Rate 86 90 86 Respiratory Rate 20 24 H Blood Pressure 155/94 H 167/88 H Pulse Oximetry 90 93 Oxygen Delivery Oxygen Flow Rate Fraction of Inspired Oxygen 02/11/24 12:25 02/11/24 12:25 02/11/24 14:00 Temperature Pulse Rate 89 82 Respiratory Rate 22 H Blood Pressure Pulse Oximetry 100 100 Oxygen Delivery BiPAP BiPAP Oxygen Flow Rate Fraction of Inspired Oxygen 40 02/11/24 14:00 02/11/24 16:00 02/11/24 16:00 Temperature 36.7 C Pulse Rate 82 89 79 Respiratory Rate 18 20 Blood Pressure 158/96 H 147/79 H Pulse Oximetry 99 100 Oxygen Delivery Oxygen Flow Rate Fraction of Inspired Oxygen 02/11/24 16:30 02/11/24 18:00 02/11/24 18:00 Temperature Pulse Rate 90 90 Respiratory Rate 20 Blood Pressure 154/98 H Pulse Oximetry 98 97 Oxygen Delivery Nasal Cannula Oxygen Flow Rate 2 Fraction of Inspired Oxygen 02/11/24 20:00 02/11/24 20:00 02/11/24 20:00 Temperature 36.8 C Pulse Rate 90 90 93 Respiratory Rate 20 22 H Blood Pressure 158/83 H Pulse Oximetry 97 95 Oxygen Delivery Nasal Cannula Oxygen Flow Rate 3 Fraction of Inspired Oxygen 02/11/24 21:10 02/11/24 22:00 02/11/24 22:00 Temperature Pulse Rate 93 90 90 Respiratory Rate 24 H Blood Pressure 157/86 H Pulse Oximetry 94 Oxygen Delivery Oxygen Flow Rate Fraction of Inspired Oxygen 02/11/24 22:00 02/12/24 00:00 02/12/24 00:00 Temperature Pulse Rate 96 96 Respiratory Rate 19 Blood Pressure Pulse Oximetry 93 96 Oxygen Delivery Nasal Cannula Nasal Cannula Oxygen Flow Rate 2 2 Fraction of Inspired Oxygen 02/12/24 00:00 02/12/24 02:00 02/12/24 02:00 Temperature 36.8 C Pulse Rate 96 101 H 101 H Respiratory Rate 19 22 H Blood Pressure 170/97 H 180/97 H Pulse Oximetry 90 92 Oxygen Delivery Oxygen Flow Rate Fraction of Inspired Oxygen 02/12/24 04:00 02/12/24 04:00 02/12/24 04:00 Temperature 36.8 C Pulse Rate 101 H 101 H 112 H Respiratory Rate 18 Blood Pressure 177/99 H Pulse Oximetry 96 95 Oxygen Delivery Nasal Cannula Oxygen Flow Rate 2 Fraction of Inspired Oxygen 40 02/12/24 06:00 02/12/24 06:00 Temperature 36.8 C Pulse Rate 112 H 112 H Respiratory Rate 22 H Blood Pressure 187/93 H Pulse Oximetry 100 Oxygen Delivery Oxygen Flow Rate Fraction of Inspired Oxygen Intake/Output Intake/Output: Intake & Output 02/09/24 02/10/24 02/11/24 02/12/24 23:59 23:59 23:59 23:59 Intake Total 2451.5 2808.3 744 744 Output Total 3050 4500 2550 1800 Balance -598.5 -1691.7 -1806 -1056 Meds/Results Medications: Active Medications Generic Name Dose Route Start Last Admin Trade Name Freq PRN Reason Stop Dose Admin Acetaminophen 650 mg 02/10/24 13:28 Acetaminophen Elixir 325 Mg/10.15 Ml Udc PO Q6H PRN Mild Pain (1-3) or Fever Amlodipine Besylate 5 mg 02/11/24 11:40 02/11/24 12:29 Amlodipine Besylate 5 Mg Tablet PO 5 mg DAILY HERMILO Administration Dextrose 12.5 gm 02/08/24 10:49 Dextrose 50% 25 Gm/50 Ml Syringe IV PUSH PRN PRN Hypoglycemia Protocol Glucagon 1 mg 02/08/24 10:49 Glucagon For Inj 1 Mg Vial IM PRN PRN Hypoglycemia Protocol Glucose 15 gm 02/08/24 10:49 Glucose Oral Gel 15 Gm Of Glucse In 37.5 Gm Tube PO PRN PRN Hypoglycemia Protocol Dextrose 1,000 mls @ 100 mls/hr 02/08/24 10:49 Dextrose 5% 1,000 Ml IVPB PRN PRN Hypoglycemia Protocol Vancomycin HCl 1,250 mg in 250 mls @ 166.667 mls/hr 02/11/24 09:00 02/11/24 08:11 Vancomycin 1,250 Mg/Ns 250 Ml IVPB 02/14/24 23:59 166.67 mls/hr Q24H HERMILO Administration Insulin Aspart 4 - 8 units 02/08/24 13:00 02/12/24 02:51 Insulin Aspart (*Bkc) 100 Units/Ml SUB-Q 5 units Q4HR HERMILO Administration Protocol Levofloxacin 750 mg 02/11/24 14:00 02/11/24 13:36 Levofloxacin 750 Mg Tablet PO 02/21/24 14:01 750 mg DAILY@1400 HERMILO Administration Levothyroxine Sodium 50 mcg 02/09/24 06:30 02/12/24 05:35 Levothyroxine Sodium Inj 100 Mcg/5 Ml Vial IV PUSH 50 mcg DAILY@0630 HERMILO Administration Lisinopril 10 mg 02/11/24 11:40 02/11/24 12:28 Lisinopril 10 Mg Tablet PO 10 mg DAILY HERMILO Administration Metoprolol Tartrate 25 mg 02/11/24 01:25 02/11/24 21:10 Metoprolol Tartrate 25 Mg Tablet FEED TUBE 25 mg Q12HR HERMILO Administration Mupirocin 1 applic 02/09/24 09:00 02/11/24 21:09 Mupirocin 2% Oint 22 Gm Tube EACH NARE 1 applic Q12HR HERMILO Administration Pantoprazole Sodium 40 mg 02/08/24 21:00 02/11/24 21:09 Pantoprazole Sodium Iv 40 Mg Vial IV PUSH 40 mg Q12HR HERMILO Administration Sodium Chloride 10 ml 02/11/24 14:00 02/12/24 05:35 Central Line Flush IV PUSH 10 ml Q8HR HERMILO Administration Sodium Chloride 20 ml 02/11/24 07:58 Central Line Flush IV PUSH PRN PRN after blood draws Radiology Results: ITS Impressions Head CT 02/08/24 08:08 Impression: No significant abnormality identified. Exam somewhat degraded by motion artifact. Atrophy and chronic white matter changes, as above. Chest/Abdomen/Pelvis CT 02/08/24 08:09 Impression: Exam degraded by motion artifact. Small right pleural effusion. Right paratracheal lymphadenopathy, nonspecific. Correlate for reactive/inflammatory nodes versus any possibility of lymphoma or metastatic disease. Questionable mild pulmonary edema versus motion artifact. Possible cystitis despite Coats catheter. Correlate with urinalysis. Cholelithiasis. Constipation. Bilateral ureteral stents with relatively stable right renal stones. No definite hydronephrosis. Abdomen X-Ray 02/10/24 11:50 IMPRESSION: 1. Nasogastric tube in stomach. 2. Diffuse increased interstitial pattern most likely mild pulmonary edema with differential including atelectasis and/or pneumonia. 3. Cardiomegaly. Chest X-Ray 02/11/24 12:51 Impression: 1: Cardiomegaly with interstitial edema. 2: Small right pleural effusion. Labs Labs: Laboratory Results - last 24 hr 02/11/24 02/11/24 02/11/24 08:05 11:15 12:38 WBC RBC Hgb Hct MCV MCH MCHC RDW Plt Count MPV Immature Gran % (Auto) Neut % (Auto) Lymph % (Auto) Logan % (Auto) Eos % (Auto) Baso % (Auto) Lymph # (Auto) Logan # (Auto) Eos # (Auto) Baso # (Auto) Abs Immat Gran (auto) Absolute Neuts (auto) Absolute Nucleated RBC Nucleated RBC % Puncture Site Right radial ABG pH 7.481 H ABG pCO2 37.6 ABG pO2 88.7 ABG PO2/FiO2 Ratio 2.22 ABG HCO3 27.4 H ABG O2 Saturation 97.3 ABG O2 Content 13.1 L ABG Base Excess 3.8 A-a Gradient 153.3 Oxyhemoglobin 95.9 Total Hemoglobin 9.6 L O2 Delivery Device Non-invasive vent O2 Liters/Min Not Reportable Vent Rate 20 FiO2 40 Expiratory Pressure 8 Inspiratory Pressure 16 Sodium Potassium Chloride Carbon Dioxide Anion Gap BUN Creatinine Estim Creat Clear Calc Estimated GFR Glucose POC Capillary Glucose 241 H 151 H Calcium Phosphorus Magnesium Iron TIBC % Saturation Ferritin Total Bilirubin AST ALT Alkaline Phosphatase Total Protein Albumin 02/11/24 02/11/24 02/11/24 16:14 16:22 21:28 WBC RBC Hgb Hct MCV MCH MCHC RDW Plt Count MPV Immature Gran % (Auto) Neut % (Auto) Lymph % (Auto) Logan % (Auto) Eos % (Auto) Baso % (Auto) Lymph # (Auto) Logan # (Auto) Eos # (Auto) Baso # (Auto) Abs Immat Gran (auto) Absolute Neuts (auto) Absolute Nucleated RBC Nucleated RBC % Puncture Site ABG pH ABG pCO2 ABG pO2 ABG PO2/FiO2 Ratio ABG HCO3 ABG O2 Saturation ABG O2 Content ABG Base Excess A-a Gradient Oxyhemoglobin Total Hemoglobin O2 Delivery Device O2 Liters/Min Vent Rate FiO2 Expiratory Pressure Inspiratory Pressure Sodium Potassium Chloride Carbon Dioxide Anion Gap BUN Creatinine Estim Creat Clear Calc Estimated GFR Glucose POC Capillary Glucose 84 176 H Calcium Phosphorus Magnesium Iron 46 L TIBC 153 L % Saturation 30 Ferritin 335.00 H Total Bilirubin AST ALT Alkaline Phosphatase Total Protein Albumin 02/12/24 02/12/24 02/12/24 02:47 05:27 07:30 WBC 13.9 H RBC 3.61 L Hgb 8.9 L Hct 29.3 L MCV 81.2 MCH 24.7 L MCHC 30.4 L RDW 18.5 H Plt Count 235 MPV 9.2 Immature Gran % (Auto) 1.0 H Neut % (Auto) 84.0 H Lymph % (Auto) 6.0 L Logan % (Auto) 7.2 Eos % (Auto) 1.4 Baso % (Auto) 0.4 Lymph # (Auto) 0.83 L Logan # (Auto) 1.0 H Eos # (Auto) 0.2 Baso # (Auto) 0.1 Abs Immat Gran (auto) 0.14 H Absolute Neuts (auto) 11.7 H Absolute Nucleated RBC 0.020 H Nucleated RBC % 0.1 Puncture Site ABG pH ABG pCO2 ABG pO2 ABG PO2/FiO2 Ratio ABG HCO3 ABG O2 Saturation ABG O2 Content ABG Base Excess A-a Gradient Oxyhemoglobin Total Hemoglobin O2 Delivery Device O2 Liters/Min Vent Rate FiO2 Expiratory Pressure Inspiratory Pressure Sodium 147 H Potassium 4.1 Chloride 112 H Carbon Dioxide 31 H Anion Gap 4 BUN 41 H Creatinine 1.30 Estim Creat Clear Calc 69 Estimated GFR 55 L Glucose 292 H POC Capillary Glucose 274 H 266 H Calcium 10.3 H Phosphorus 3.5 Magnesium 1.8 Iron TIBC % Saturation Ferritin Total Bilirubin 0.7 AST 20 ALT 11 Alkaline Phosphatase 146 H Total Protein 8.0 Albumin 3.1 L
[2024-02-12] MEDS: amLODIPine BESYLATE 5 MG TABLET PO (09:08)
[2024-02-12] MEDS: METOPROLOL TARTRATE 25 MG TABLET FEED TUBE ×2 (09:08→21:55)
[2024-02-12] MEDS: lisinopriL 10 MG TABLET PO (09:08)
[2024-02-12] MEDS: PANTOPRAZOLE SODIUM IV 40 MG VIAL IV PUSH ×2 (09:08→21:55)
[2024-02-12] MEDS: MUPIROCIN 2% OINT 22 GM TUBE 1 APPLIC EACH NARE (09:09)
[2024-02-12] MEDS: VANCOMYCIN 1,250 MG/NS 250 ML 1,250 MG/250 ML BAG 166.67 MG IVPB (09:24)
--- NOTE | 2024-02-12 11:07 | PC.NURSE ---
Transferred to room 211 per bed. Report given to RONNIE Carlos. at bedside. All questions answered.
--- NOTE | 2024-02-12 11:13 | PC.NURSE ---
This patient, Taye Marrero ., was received from [ICU-1 ] on 02/12/24 at 1114. Patient/family oriented to unit policies and routines. Report received from RONNIE Goncalves @ [id number]
--- NOTE | 2024-02-12 11:48 | PCNFU ---
Addendum entered by Jojo Shelton, RD, LDN 02/12/24 12:31: Protein Modular of Loki BID for wound healing being flushed which is providing an additional 80 kcal, 7 gm arginine, 7 gm glutamine and 2.5 gm protein. Original Note: Nutrition Follow-Up Complete: Inadequate energy intake related to inability to meet nutrition needs PO, increased needs from wounds as evidenced by NPO day 2, decreased consciousness goal: Meet estimated protein energy needs Patient is progressing towards goal. We will continue current goal. Pt current nutrition is Glucerna 1.2 at 65 ml/hr. Last recorded weight is 126 kg, stable. Bowel Motility: +BM reported 02/09 Labs Reviewed: Hgb 8.9, Hct 29.3, Na 147, Glu 292 Meds Noted: NovoLog, Meropenem. Skin:Stage 3-Left heel. Additional Notes: Patient remains on a NGT tube feedings of Glucerna 1.2 at 65 ml/hr. Tube feedings are being tolerating and providing 1716 kcal/86 gm protein/1150 ml water. Meeting 82% kcal needs 17 kcal/kg and 100% protein needs at 0.6-0.8 gm/kg. Flush 30 ml q 4 hours. Agree wtih diet orders at this time. Monitor tube feeding tolerance, swallowing ability, labs, weights, output, wounds, plan of care Follow up Tuesdays and Fridays
[2024-02-12 12:03] LABS: Glucose Point of Care 283 mg/dl (65-105)
[2024-02-12] MEDS: levoFLOXacin 750 MG TABLET PO (12:40)
--- NOTE | 2024-02-12 14:57 | PC.NURSE ---
This patient, Taye Marrero Jr., was transferred to [[id number] ] on 02/12/24 at 5767. Personal belongings sent with patient. Report given to [RONNIE Hobson @ [phone] ]. Appropriate documentation sent with patient.
--- NOTE | 2024-02-12 16:29 | P.PNIM_ITS ---
Progress Note: A&P Assessment and Plan (1) Sepsis: Code(s): A41.9 - Sepsis, unspecified organism Status: Acute Assessment and Plan: Pseudomonas bacteremia Likely Secondary to UTI CT scan reviewed He has wounds on his skin but they do not appear to be infected 02/07: Blood cultures growing gram-negative bacilli /2 bottles 02/07: Urine culture negative so far 02/09: will repeat blood cultures Discontinue IV fluids Off Levophed, his blood pressures are much improved Continue vancomycin and meropenem (02/07) 02/08/2024: CT chest abdomen and pelvis Impression: Exam degraded by motion artifact. Small right pleural effusion. Right paratracheal lymphadenopathy, nonspecific. Correlate for reactive/inflammatory nodes versus any possibility of lymphoma or metastatic disease. Questionable mild pulmonary edema versus motion artifact. Possible cystitis despite Coats catheter. Correlate with urinalysis. Cholelithiasis. Constipation. Bilateral ureteral stents with relatively stable right renal stones. No definite hydronephrosis. Continue Levaquin (2) JHONY (acute kidney injury): Code(s): N17.9 - Acute kidney failure, unspecified Status: Acute Assessment and Plan: reoslved Cr 1.3, Cr 1.6 on admission -CT scan of the abdomen pelvis shows stents in place with no hydronephrosis -creatinine is stable, if it continues to increase or urine output decreases will have Nephrology follow the patient (3) Encephalopathy: Code(s): G93.40 - Encephalopathy, unspecified Status: Acute Assessment and Plan: Head CT negative. Patient also received Versed in the ER Likely toxic metabolic encephalopathy Avoid sedatives Off Precedex infusion patient now at baseline mental status (4) Type 2 diabetes mellitus with hyperglycemia, with long-term current use of insulin: Code(s): E11.65 - Type 2 diabetes mellitus with hyperglycemia; Z79.4 - intermediate (current) use of insulin Status: Chronic Assessment and Plan: Continue Sliding scale insulin and Accu-Cheks (5) Atrial fibrillation with rapid ventricular response: Code(s): I48.91 - Unspecified atrial fibrillation Status: Chronic Assessment and Plan: Currently holding Accu-Cheks due to hematuria and anemia (6) GI bleed: Code(s): K92.2 - Gastrointestinal hemorrhage, unspecified Status: Acute Assessment and Plan: Patient has history of GI bleed and positive Hemoccult. Has drop in hemoglobin since last admission. He is on anticoagulation will be held IV Protonix q.12 hours GI has been consulted, appreciate evaluation and recommendations -stool for occult blood pending -Monitor hemoglobin and transfuse if needed -hemoglobin has been stable this morning on NG tube GI recommends conservative management with Protonix monitor H and H (7) Anemia: Qualifiers: Anemia type: unspecified type Qualified Code(s): D64.9 - Anemia, unspecified Code(s): D64.9 - Anemia, unspecified Status: Acute Assessment and Plan: See above Hb 8.9 and Isat 30 monitor H and H (8) Hypothyroidism: Code(s): E03.9 - Hypothyroidism, unspecified Status: Chronic Assessment and Plan: Continue IV levothyroxine (9) Acute respiratory failure: Code(s): J96.00 - Acute respiratory failure, unspecified whether with hypoxia or hypercapnia Status: Acute Assessment and Plan: s/p BiPAP Continue NC oxygen 2 liters monitor Plan PSeudomonas bacteremia likely from UTI repeat culture pendign for now Continue levaquin monitor Lymphoma vs metastases Discussed pulmonolgoy recommends outpatient follow up CT in 3 months monitor Anemia hb 8.5 isat 30 GI eval noted patient and since patient does not have any overt bleeding will contineu PPI monitor Hematuria s/p CBI and urine clear Urology noted it is likely traumatic DVT prophylaxis -SCD, hold chemical prophylaxis/anticoagulation due to hematuria and anemia secondary to likely GI bleed Stress ulcer prophylaxis -Protonix IV q.12 hours Nutrition -NPO Code Status -full code Subjective Date/time seen: 02/12/24 16:29 Interval history: patient currently at baseline now on medical floor Review of Systems Review of Systems: Unable to obtain accurately given clinical condition as above. All systems reviewed & are unremarkable except as noted in HPI and below ROS unobtainable: Yes unobtainable due to medical condition and unobtainable due to mental status Exam Narrative: General: More awake this morning,. On 3 L nasal cannula, in no acute distress Lungs/Chest: Trachea central coarse breath sounds bilaterally, decreased at bases, No crackles or wheezing. Cardiac: Irregularly irregular, rate in the 100-110 Abdomen: Normoactive bowel sounds. Morbidly Obese. Soft. NT. ND. There appears and mesh underlying the skin in the midline Extremities: Bilateral feet have edema. He has 2 superficial wounds on the lateral aspect of left leg. He also has a wound which does not appear infected on the left heel. He has chronic venous stasis changes and edema : Coats in place Neurologic: Patient is off Precedex infusion, more awake, able to nod to questions and give me one-word answers, follows commands and upper extremities. Skin: As above Objective Data Vital Signs Vital Signs: Vital Signs - 24 hr 02/11/24 16:30 02/11/24 18:00 02/11/24 18:00 Temperature Pulse Rate 90 90 Respiratory Rate 20 Blood Pressure 154/98 H Pulse Oximetry 98 97 Oxygen Delivery Nasal Cannula Oxygen Flow Rate 2 Fraction of Inspired Oxygen 02/11/24 20:00 02/11/24 20:00 02/11/24 20:00 Temperature 98.3 F Pulse Rate 90 90 93 Respiratory Rate 20 22 H Blood Pressure 158/83 H Pulse Oximetry 97 95 Oxygen Delivery Nasal Cannula Oxygen Flow Rate 3 Fraction of Inspired Oxygen 02/11/24 21:10 02/11/24 22:00 02/11/24 22:00 Temperature Pulse Rate 93 90 90 Respiratory Rate 24 H Blood Pressure 157/86 H Pulse Oximetry 94 Oxygen Delivery Oxygen Flow Rate Fraction of Inspired Oxygen 02/11/24 22:00 02/12/24 00:00 02/12/24 00:00 Temperature Pulse Rate 96 96 Respiratory Rate 19 Blood Pressure Pulse Oximetry 93 96 Oxygen Delivery Nasal Cannula Nasal Cannula Oxygen Flow Rate 2 2 Fraction of Inspired Oxygen 02/12/24 00:00 02/12/24 02:00 02/12/24 02:00 Temperature 98.2 F Pulse Rate 96 101 H 101 H Respiratory Rate 19 22 H Blood Pressure 170/97 H 180/97 H Pulse Oximetry 90 92 Oxygen Delivery Oxygen Flow Rate Fraction of Inspired Oxygen 02/12/24 04:00 02/12/24 04:00 02/12/24 04:00 Temperature 98.3 F Pulse Rate 101 H 101 H 112 H Respiratory Rate 18 Blood Pressure 177/99 H Pulse Oximetry 96 95 Oxygen Delivery Nasal Cannula Oxygen Flow Rate 2 Fraction of Inspired Oxygen 40 02/12/24 06:00 02/12/24 06:00 02/12/24 08:00 Temperature 98.2 F Pulse Rate 112 H 112 H 118 H Respiratory Rate 22 H 22 H Blood Pressure 187/93 H Pulse Oximetry 100 95 Oxygen Delivery Nasal Cannula Oxygen Flow Rate 3 Fraction of Inspired Oxygen 40 02/12/24 08:00 02/12/24 08:00 02/12/24 08:00 Temperature 98.1 F Pulse Rate 118 H 118 H 116 H Respiratory Rate 29 H 22 H Blood Pressure 168/94 H 168/94 H Pulse Oximetry 95 97 Oxygen Delivery Oxygen Flow Rate Fraction of Inspired Oxygen 02/12/24 09:08 02/12/24 10:00 02/12/24 10:00 Temperature Pulse Rate 110 H 97 100 Respiratory Rate 17 Blood Pressure 157/94 H Pulse Oximetry 95 Oxygen Delivery Oxygen Flow Rate Fraction of Inspired Oxygen 02/12/24 11:15 02/12/24 11:23 02/12/24 12:00 Temperature 99.3 F Pulse Rate 89 89 97 Respiratory Rate 24 H 24 H Blood Pressure 166/77 H Pulse Oximetry 100 100 Oxygen Delivery Nasal Cannula Oxygen Flow Rate 2 Fraction of Inspired Oxygen Intake/Output Intake/Output: Intake & Output 02/09/24 02/10/24 02/11/24 02/12/24 23:59 23:59 23:59 23:59 Intake Total 2451.5 2808.3 994 1109 Output Total 3050 4500 2550 2750 [facility] -598.5 -1691.7 -1556 -1641 Meds/Results Medications: Active Medications Generic Name Dose Route Start Last Admin Trade Name Freq PRN Reason Stop Dose Admin Acetaminophen 650 mg 02/10/24 13:28 Acetaminophen Elixir 325 Mg/10.15 Ml Udc PO Q6H PRN Mild Pain (1-3) or Fever Amlodipine Besylate 5 mg 02/11/24 11:40 02/12/24 09:08 Amlodipine Besylate 5 Mg Tablet PO 5 mg DAILY HERMILO Administration Dextrose 12.5 gm 02/08/24 10:49 Dextrose 50% 25 Gm/50 Ml Syringe IV PUSH PRN PRN Hypoglycemia Protocol Glucagon 1 mg 02/08/24 10:49 Glucagon For Inj 1 Mg Vial IM PRN PRN Hypoglycemia Protocol Glucose 15 gm 02/08/24 10:49 Glucose Oral Gel 15 Gm Of Glucse In 37.5 Gm Tube PO PRN PRN Hypoglycemia Protocol Dextrose 1,000 mls @ 100 mls/hr 02/08/24 10:49 Dextrose 5% 1,000 Ml IVPB PRN PRN Hypoglycemia Protocol Vancomycin HCl 1,250 mg in 250 mls @ 166.667 mls/hr 02/11/24 09:00 02/12/24 09:24 Vancomycin 1,250 Mg/Ns 250 Ml IVPB 02/14/24 23:59 166.67 mls/hr Q24H HERMILO Administration Insulin Aspart 4 - 8 units 02/08/24 13:00 02/12/24 12:39 Insulin Aspart (*Bkc) 100 Units/Ml SUB-Q 5 units Q4HR HERMILO Administration Protocol Levofloxacin 750 mg 02/11/24 14:00 02/12/24 12:40 Levofloxacin 750 Mg Tablet PO 02/21/24 14:01 750 mg DAILY@1400 HERMILO Administration Levothyroxine Sodium 50 mcg 02/09/24 06:30 02/12/24 05:35 Levothyroxine Sodium Inj 100 Mcg/5 Ml Vial IV PUSH 50 mcg DAILY@0630 HERMILO Administration Lisinopril 10 mg 02/11/24 11:40 02/12/24 09:08 Lisinopril 10 Mg Tablet PO 10 mg DAILY HERMILO Administration Metoprolol Tartrate 25 mg 02/11/24 01:25 02/12/24 09:08 Metoprolol Tartrate 25 Mg Tablet FEED TUBE 25 mg Q12HR HERMILO Administration Mupirocin 1 applic 02/09/24 09:00 02/12/24 09:09 Mupirocin 2% Oint 22 Gm Tube EACH NARE 1 applic Q12HR HERMILO Administration Pantoprazole Sodium 40 mg 02/08/24 21:00 02/12/24 09:08 Pantoprazole Sodium Iv 40 Mg Vial IV PUSH 40 mg Q12HR HERMILO Administration Radiology Results: ITS Impressions Head CT 02/08/24 08:08 Impression: No significant abnormality identified. Exam somewhat degraded by motion artifact. Atrophy and chronic white matter changes, as above. Chest/Abdomen/Pelvis CT 02/08/24 08:09 Impression: Exam degraded by motion artifact. Small right pleural effusion. Right paratracheal lymphadenopathy, nonspecific. Correlate for reactive/inflammatory nodes versus any possibility of lymphoma or metastatic disease. Questionable mild pulmonary edema versus motion artifact. Possible cystitis despite Coats catheter. Correlate with urinalysis. Cholelithiasis. Constipation. Bilateral ureteral stents with relatively stable right renal stones. No definite hydronephrosis. Abdomen X-Ray 02/10/24 11:50 IMPRESSION: 1. Nasogastric tube in stomach. 2. Diffuse increased interstitial pattern most likely mild pulmonary edema with differential including atelectasis and/or pneumonia. 3. Cardiomegaly. Chest X-Ray 02/11/24 12:51 Impression: 1: Cardiomegaly with interstitial edema. 2: Small right pleural effusion. Labs Labs: Laboratory Results - last 24 hr 02/11/24 02/11/24 02/11/24 16:14 16:22 21:28 WBC RBC Hgb Hct MCV MCH MCHC RDW Plt Count MPV Immature Gran % (Auto) Neut % (Auto) Lymph % (Auto) [place] % (Auto) Eos % (Auto) Baso % (Auto) Lymph # (Auto) [place] # (Auto) Eos # (Auto) Baso # (Auto) Abs Immat Gran (auto) Absolute Neuts (auto) Absolute Nucleated RBC Nucleated RBC % Sodium Potassium Chloride Carbon Dioxide Anion Gap BUN Creatinine Estim Creat Clear Calc Estimated GFR Glucose POC Capillary Glucose 84 176 H Calcium Phosphorus Magnesium Iron 46 L TIBC 153 L % Saturation 30 Ferritin 335.00 H Total Bilirubin AST ALT Alkaline Phosphatase Total Protein Albumin 02/12/24 02/12/24 02/12/24 02:47 05:27 07:30 WBC 13.9 H RBC 3.61 L Hgb 8.9 L Hct 29.3 L MCV 81.2 MCH 24.7 L MCHC 30.4 L RDW 18.5 H Plt Count 235 MPV 9.2 Immature Gran % (Auto) 1.0 H Neut % (Auto) 84.0 H Lymph % (Auto) 6.0 L [place] % (Auto) 7.2 Eos % (Auto) 1.4 Baso % (Auto) 0.4 Lymph # (Auto) 0.83 L [place] # (Auto) 1.0 H Eos # (Auto) 0.2 Baso # (Auto) 0.1 Abs Immat Gran (auto) 0.14 H Absolute Neuts (auto) 11.7 H Absolute Nucleated RBC 0.020 H Nucleated RBC % 0.1 Sodium 147 H Potassium 4.1 Chloride 112 H Carbon Dioxide 31 H Anion Gap 4 BUN 41 H Creatinine 1.30 Estim Creat Clear Calc 69 Estimated GFR 55 L Glucose 292 H POC Capillary Glucose 274 H 266 H Calcium 10.3 H Phosphorus 3.5 Magnesium 1.8 Iron TIBC % Saturation Ferritin Total Bilirubin 0.7 AST 20 ALT 11 Alkaline Phosphatase 146 H Total Protein 8.0 Albumin 3.1 L 02/12/24 11:49 WBC RBC Hgb Hct MCV MCH MCHC RDW Plt Count MPV Immature Gran % (Auto) Neut % (Auto) Lymph % (Auto) [place] % (Auto) Eos % (Auto) Baso % (Auto) Lymph # (Auto) [place] # (Auto) Eos # (Auto) Baso # (Auto) Abs Immat Gran (auto) Absolute Neuts (auto) Absolute Nucleated RBC Nucleated RBC % Sodium Potassium Chloride Carbon Dioxide Anion Gap BUN Creatinine Estim Creat Clear Calc Estimated GFR Glucose POC Capillary Glucose 283 H Calcium Phosphorus Magnesium Iron TIBC % Saturation Ferritin Total Bilirubin AST ALT Alkaline Phosphatase Total Protein Albumin Quality VTE Prophylaxis VTE prophylaxis: mechanical ordered
[2024-02-12 16:47] LABS: Glucose Point of Care 177 mg/dl (65-105)
[2024-02-12 18:49] LABS: Lactic Acid Reflex 1.1 mmol/L (0.7-2.0)
[2024-02-12 21:24] LABS: Glucose Point of Care 245 mg/dl (65-105)
[2024-02-13] VITALS (9 sets, daily range): BP systolic 139–165; BP diastolic 80–91; PULSE 92–111; RESP 12–20; TEMP 36.4–36.7; O2SAT 90–98
[2024-02-13 00:17] LABS: Glucose Point of Care 258 mg/dl (65-105)
[2024-02-13] MEDS: INSULIN ASPART (*BKC) 100 UNITS/ML SUB-Q ×5 (00:25→21:21)
[2024-02-13 04:04] LABS: Glucose Point of Care 203 mg/dl (65-105)
[2024-02-13] MEDS: LEVOTHYROXINE SODIUM INJ 100 MCG/5 ML VIAL 50 MCG IV PUSH (05:33)
--- NOTE | 2024-02-13 06:05 | PC.NURSE ---
Patient pulled out NG tube and is stable. No signs nor symptoms of nausea, vomiting, aspiration nor respiratory distress. Will continue to monitor patient.
--- NOTE | 2024-02-13 06:07 | PC.NURSE ---
NG tube 14 bruneian tubing replaced. Patient tolerated insertion. Air was heard over abdomen with stethoscope. Tube feeding held until XR ordered verifies gastric placement. Will continue to monitor patent.
[2024-02-13 08:01] LABS: Basophils Percent Auto 0.4 % (0.2-1.2); Eosinophils Absolute Auto 0.3 K/mm3 (0-0.3); Eosinophils Percent Auto 2.9 % (0-4.4); Hematocrit 30.3 % (42.0-52.0); Hemoglobin 9.1 g/dL (14.0-18.0); Immature Granulocyte Absolute 0.17 K/mm3 (0.00-0.031); Immature Granulocyte Percent A 1.5 % (0-0.5); Lymphocytes Absolute Auto 1.17 K/mm3 (0.9-3.2); Lymphocytes Percent Auto 10.3 % (18.3-44.2); Mean Corpuscular Hemoglobin 24.7 pg (26-34); Mean Corpuscular Volume 82.3 fl (80-100); Monocytes Absolute Auto 0.9 K/mm3 (0.1-0.6); Monocytes Percent Auto 7.8 % (2.6-8.5); Neutrophils Absolute Auto 8.7 K/mm3 (1.3-6.7); Neutrophils Percent Auto 77.1 % (45.5-73.1); Nucleated Red Blood Cells Perc 0.2 % (0.0-0.2); Platelet Count Result 242 k/mm3 (150-375); Red Blood Count 3.68 M/mm3 (4.6-6.20); Red Cell Distribution Width 18.5 % (11.5-14.5); White Blood Count 11.3 K/mm3 (4.5-10.0)
[2024-02-13 08:17] LABS: Alanine Aminotransferase 10 U/L (6-50); Albumin Level 3.1 g/dL (3.5-5.1); Alkaline Phosphatase 118 U/L (38-126); Anion Gap 4 mmol/L (4-12); Aspartate Amino Transferase 17 U/L (17-59); Bilirubin,Total 0.8 mg/dL (0.2-1.3); Blood Urea Nitrogen 43 mg/dL (9-20); Calcium 10.3 mg/dL (8.4-10.2); Carbon Dioxide 33 mmol/L (22-30); Chloride 114 mmol/L (98-107); Estimated CRCL calculation 72 ml/min; Estimated Glomerular Filt Rate 60; Glucose 220 mg/dL (65-110); Magnesium 1.9 mg/dL (1.6-2.3); Phosphorus 3.1 mg/dL (2.5-4.5); Potassium 3.9 mmol/L (3.4-5.0); Sodium 151 mmol/L (137-145)
[2024-02-13 08:32] LABS: Vancomycin Trough 23.3 ug/mL (10.0-20.0)
[2024-02-13 09:41] LABS: Glucose Point of Care 195 mg/dl (65-105)
--- NOTE | 2024-02-13 12:11 | PM.IMPN ---
Progress Note: A&P Assessment and Plan (1) Sepsis: Code(s): A41.9 - Sepsis, unspecified organism Status: Acute Assessment and Plan: Pseudomonas bacteremia Likely Secondary to UTI CT scan reviewed He has wounds on his skin but they do not appear to be infected 02/07: Blood cultures growing gram-negative bacilli /2 bottles 02/07: Urine culture negative so far 02/09: will repeat blood cultures Discontinue IV fluids Off Levophed, his blood pressures are much improved Continue vancomycin and meropenem (02/07) 02/08/2024: CT chest abdomen and pelvis Impression: Exam degraded by motion artifact. Small right pleural effusion. Right paratracheal lymphadenopathy, nonspecific. Correlate for reactive/inflammatory nodes versus any possibility of lymphoma or metastatic disease. Questionable mild pulmonary edema versus motion artifact. Possible cystitis despite Coats catheter. Correlate with urinalysis. Cholelithiasis. Constipation. Bilateral ureteral stents with relatively stable right renal stones. No definite hydronephrosis. Continue Levaquin (2) JHONY (acute kidney injury): Code(s): N17.9 - Acute kidney failure, unspecified Status: Acute Assessment and Plan: reoslved Cr 1.3, Cr 1.6 on admission -CT scan of the abdomen pelvis shows stents in place with no hydronephrosis -creatinine is stable, if it continues to increase or urine output decreases will have Nephrology follow the patient (3) Encephalopathy: Code(s): G93.40 - Encephalopathy, unspecified Status: Acute Assessment and Plan: Head CT negative. Patient also received Versed in the ER Likely toxic metabolic encephalopathy Avoid sedatives Off Precedex infusion patient now at baseline mental status (4) Type 2 diabetes mellitus with hyperglycemia, with long-term current use of insulin: Code(s): E11.65 - Type 2 diabetes mellitus with hyperglycemia; Z79.4 - MCC (current) use of insulin Status: Chronic Assessment and Plan: Continue Sliding scale insulin and Accu-Cheks (5) Atrial fibrillation with rapid ventricular response: Code(s): I48.91 - Unspecified atrial fibrillation Status: Chronic Assessment and Plan: Currently holding Accu-Cheks due to hematuria and anemia (6) GI bleed: Code(s): K92.2 - Gastrointestinal hemorrhage, unspecified Status: Acute Assessment and Plan: Patient has history of GI bleed and positive Hemoccult. Has drop in hemoglobin since last admission. He is on anticoagulation will be held IV Protonix q.12 hours GI has been consulted, appreciate evaluation and recommendations -stool for occult blood pending -Monitor hemoglobin and transfuse if needed -hemoglobin has been stable this morning on NG tube GI recommends conservative management with Protonix monitor H and H (7) Anemia: Qualifiers: Anemia type: unspecified type Qualified Code(s): D64.9 - Anemia, unspecified Code(s): D64.9 - Anemia, unspecified Status: Acute Assessment and Plan: See above Hb 8.9 and Isat 30 monitor H and H (8) Hypothyroidism: Code(s): E03.9 - Hypothyroidism, unspecified Status: Chronic Assessment and Plan: Continue IV levothyroxine (9) Acute respiratory failure: Code(s): J96.00 - Acute respiratory failure, unspecified whether with hypoxia or hypercapnia Status: Acute Assessment and Plan: s/p BiPAP Continue NC oxygen 2 liters monitor Plan Pseudomonas bacteremia likely from UTI repeat culture pending for now Continue levaquin monitor Lymphoma vs metastases Discussed pulmonology recommends outpatient follow up CT in 3 months monitor Anemia hb 9.1 isat 30 GI eval noted patient and since patient does not have any overt bleeding will contineu PPI monitor Hematuria s/p CBI and urine clear Urology noted it is likely traumatic JHONY, resolvin g Cr 1.2 monitor Protein energy malnutrition Patient on tube feeding Speech eval for possible transition to PO intake SChizophrenia Continue home meds Agitation Continue home sedatives and monitor DVT prophylaxis -SCD, hold chemical prophylaxis/anticoagulation due to hematuria and anemia secondary to likely GI bleed Stress ulcer prophylaxis -Protonix IV q.12 hours Nutrition -NPO Code Status -full code Subjective Date/time seen: 02/13/24 12:11 Interval history: Patient was combative this morning per nurse, trying to remove NG tube Awaiting Speech eval today for possible PO advancement Review of Systems Review of Systems: Unable to obtain accurately given clinical condition as above. All systems reviewed & are unremarkable except as noted in HPI and below ROS unobtainable: Yes unobtainable due to medical condition and unobtainable due to mental status Exam Narrative: General: More awake this morning,. On 2 L nasal cannula, in no acute distress Lungs/Chest: Trachea central coarse breath sounds bilaterally, decreased at bases, No crackles or wheezing. Cardiac: Irregularly irregular, Abdomen: Normoactive bowel sounds. Morbidly Obese. Soft. NT. ND. There appears and mesh underlying the skin in the midline Extremities: Bilateral feet have edema. He has 2 superficial wounds on the lateral aspect of left leg. He also has a wound which does not appear infected on the left heel. He has chronic venous stasis changes and edema : Coats in place Neurologic: Awake but unable to communicate meaningfully Skin: As above Objective Data Vital Signs Vital Signs: Vital Signs - 24 hr 02/12/24 16:00 02/12/24 16:00 02/12/24 16:30 Temperature 98.2 F Pulse Rate 82 102 H Respiratory Rate 18 Blood Pressure 164/72 H Pulse Oximetry 92 92 Oxygen Delivery Nasal Cannula Oxygen Flow Rate 2 02/12/24 20:01 02/12/24 21:06 02/12/24 21:55 Temperature 98 F Pulse Rate 103 H 100 100 Respiratory Rate 22 H Blood Pressure 170/78 H Pulse Oximetry 93 Oxygen Delivery Oxygen Flow Rate 02/12/24 21:55 02/13/24 00:05 02/13/24 04:00 Temperature Pulse Rate 92 97 Respiratory Rate Blood Pressure Pulse Oximetry 93 Oxygen Delivery Nasal Cannula Oxygen Flow Rate 2 02/13/24 04:35 Temperature 97.6 F Pulse Rate 96 Respiratory Rate 20 Blood Pressure 165/88 H Pulse Oximetry 94 Oxygen Delivery Oxygen Flow Rate Intake/Output Intake/Output: Intake & Output 02/10/24 02/11/24 02/12/24 02/13/24 23:59 23:59 23:59 23:59 Intake Total 2808.3 994 1109 0 Output Total 4500 2550 3150 1200 Balance -1691.7 -1556 -2041 -1200 Meds/Results Medications: Active Medications Generic Name Dose Route Start Last Admin Trade Name Freq PRN Reason Stop Dose Admin Acetaminophen 650 mg 02/10/24 13:28 Acetaminophen Elixir 325 Mg/10.15 Ml Udc PO Q6H PRN Mild Pain (1-3) or Fever Amlodipine Besylate 5 mg 02/11/24 11:40 02/12/24 09:08 Amlodipine Besylate 5 Mg Tablet PO 5 mg DAILY HERMILO Administration Bupropion HCl 150 mg 02/13/24 12:10 Bupropion Hcl Xl (24 Hr) 150 Mg Tabcr PO QAM [facility] Dextrose 12.5 gm 02/08/24 10:49 Dextrose 50% 25 Gm/50 Ml Syringe IV PUSH PRN PRN Hypoglycemia Protocol Gabapentin 300 mg 02/13/24 13:00 Gabapentin 300 Mg Capsule PO TID HERMILO Glucagon 1 mg 02/08/24 10:49 Glucagon For Inj 1 Mg Vial IM PRN PRN Hypoglycemia Protocol Glucose 15 gm 02/08/24 10:49 Glucose Oral Gel 15 Gm Of Glucse In 37.5 Gm Tube PO PRN PRN Hypoglycemia Protocol Dextrose 1,000 mls @ 100 mls/hr 02/08/24 10:49 Dextrose 5% 1,000 Ml IVPB PRN PRN Hypoglycemia Protocol Vancomycin HCl 1,000 mg in 250 mls @ 250 mls/hr 02/13/24 10:00 Vancomycin 1,000 Mg/Ns 250 Ml IVPB 02/14/24 23:59 Q24H [facility] Insulin Aspart 4 - 8 units 02/08/24 13:00 02/13/24 10:56 Insulin Aspart (*Bkc) 100 Units/Ml SUB-Q Not Given Q4HR [facility] Protocol Levofloxacin 750 mg 02/11/24 14:00 02/12/24 12:40 Levofloxacin 750 Mg Tablet PO 02/21/24 14:01 750 mg DAILY@1400 [facility] Administration Levothyroxine Sodium 100 mcg 02/14/24 06:30 Levothyroxine Sodium 100 Mcg Tablet PO DAILY@0630 [facility] Lisinopril 10 mg 02/11/24 11:40 02/12/24 09:08 Lisinopril 10 Mg Tablet PO 10 mg DAILY [facility] Administration Mupirocin 1 applic 02/09/24 09:00 02/13/24 00:55 Mupirocin 2% Oint 22 Gm Tube EACH NARE Not Given Q12HR [facility] Pantoprazole Sodium 40 mg 02/08/24 21:00 02/12/24 21:55 Pantoprazole Sodium Iv 40 Mg Vial IV PUSH 40 mg Q12HR [facility] Administration Trazodone HCl 75 mg 02/13/24 21:00 Trazodone Hcl 25 Mg Tablet PO [facility] Radiology Results: ITS Impressions Head CT 02/08/24 08:08 Impression: No significant abnormality identified. Exam somewhat degraded by motion artifact. Atrophy and chronic white matter changes, as above. Chest/Abdomen/Pelvis CT 02/08/24 08:09 Impression: Exam degraded by motion artifact. Small right pleural effusion. Right paratracheal lymphadenopathy, nonspecific. Correlate for reactive/inflammatory nodes versus any possibility of lymphoma or metastatic disease. Questionable mild pulmonary edema versus motion artifact. Possible cystitis despite Coats catheter. Correlate with urinalysis. Cholelithiasis. Constipation. Bilateral ureteral stents with relatively stable right renal stones. No definite hydronephrosis. Chest X-Ray 02/11/24 12:51 Impression: 1: Cardiomegaly with interstitial edema. 2: Small right pleural effusion. Abdomen X-Ray 02/13/24 11:55 IMPRESSION: 1. Nasogastric tube in the stomach. Labs Labs: Laboratory Results - last 24 hr 02/12/24 02/12/24 02/12/24 16:43 18:25 21:11 WBC RBC Hgb Hct MCV MCH MCHC RDW Plt Count MPV Immature Gran % (Auto) Neut % (Auto) Lymph % (Auto) [place] % (Auto) Eos % (Auto) Baso % (Auto) Lymph # (Auto) [place] # (Auto) Eos # (Auto) Baso # (Auto) Abs Immat Gran (auto) Absolute Neuts (auto) Absolute Nucleated RBC Nucleated RBC % Sodium Potassium Chloride Carbon Dioxide Anion Gap BUN Creatinine Estim Creat Clear Calc Estimated GFR Glucose POC Capillary Glucose 177 H 245 H Lactic Acid 1.1 Calcium Phosphorus Magnesium Total Bilirubin AST ALT Alkaline Phosphatase Total Protein Albumin Vancomycin Trough 02/13/24 02/13/24 02/13/24 00:07 03:51 07:47 WBC 11.3 H RBC 3.68 L Hgb 9.1 L Hct 30.3 L MCV 82.3 MCH 24.7 L MCHC 30.0 L RDW 18.5 H Plt Count 242 MPV 10.0 Immature Gran % (Auto) 1.5 H Neut % (Auto) 77.1 H Lymph % (Auto) 10.3 L [place] % (Auto) 7.8 Eos % (Auto) 2.9 Baso % (Auto) 0.4 Lymph # (Auto) 1.17 [place] # (Auto) 0.9 H Eos # (Auto) 0.3 Baso # (Auto) 0.0 Abs Immat Gran (auto) 0.17 H Absolute Neuts (auto) 8.7 H Absolute Nucleated RBC 0.020 H Nucleated RBC % 0.2 Sodium 151 H Potassium 3.9 Chloride 114 H Carbon Dioxide 33 H Anion Gap 4 BUN 43 H Creatinine 1.20 Estim Creat Clear Calc 72 Estimated GFR 60 Glucose 220 H POC Capillary Glucose 258 H 203 H Lactic Acid Calcium 10.3 H Phosphorus 3.1 Magnesium 1.9 Total Bilirubin 0.8 AST 17 ALT 10 Alkaline Phosphatase 118 Total Protein 8.0 Albumin 3.1 L Vancomycin Trough 23.3 H 02/13/24 09:37 WBC RBC Hgb Hct MCV MCH MCHC RDW Plt Count MPV Immature Gran % (Auto) Neut % (Auto) Lymph % (Auto) [place] % (Auto) Eos % (Auto) Baso % (Auto) Lymph # (Auto) [place] # (Auto) Eos # (Auto) Baso # (Auto) Abs Immat Gran (auto) Absolute Neuts (auto) Absolute Nucleated RBC Nucleated RBC % Sodium Potassium Chloride Carbon Dioxide Anion Gap BUN Creatinine Estim Creat Clear Calc Estimated GFR Glucose POC Capillary Glucose 195 H Lactic Acid Calcium Phosphorus Magnesium Total Bilirubin AST ALT Alkaline Phosphatase Total Protein Albumin Vancomycin Trough Quality VTE Prophylaxis VTE prophylaxis: mechanical ordered
[2024-02-13] MEDS: lisinopriL 10 MG TABLET PO (12:12)
[2024-02-13] MEDS: amLODIPine BESYLATE 5 MG TABLET PO (12:18)
[2024-02-13] MEDS: MUPIROCIN 2% OINT 22 GM TUBE 1 APPLIC EACH NARE ×2 (12:18→20:36)
[2024-02-13] MEDS: PANTOPRAZOLE SODIUM IV 40 MG VIAL IV PUSH ×2 (12:18→20:30)
--- NOTE | 2024-02-13 12:36 | PCSTNOTE ---
Please refer to the Bedside Swallow Evaluation in the EMR. Please note, silent aspiration cannot be ruled out at bedside.
[2024-02-13 12:41] LABS: Glucose Point of Care 265 mg/dl (65-105)
[2024-02-13] MEDS: buPROPion HCL XL (24 HR) 150 MG TABCR PO (13:02)
[2024-02-13] MEDS: GABAPENTIN 300 MG CAPSULE PO ×2 (13:02→17:54)
[2024-02-13] MEDS: VANCOMYCIN 1,000 MG/NS 250 ML 1,000 MG/250 ML BAG 250 MG IVPB (13:04)
[2024-02-13] MEDS: levoFLOXacin 750 MG TABLET PO (13:05)
--- NOTE | 2024-02-13 13:41 | PC.NURSE ---
Provider called to bedside regarding patient unable to maintain an NG. Patient thrashing and yelling in the bed. Clarifying clinical indication for NG tube. Provider stated to place patient in soft wrist restraints and give patient a one-time order of zyprexa to help relax patient. This RN clarified continued need for NG as patient is more alert. at bedside stated prior to admission, patient able to eat and drink with no modifications. Provider requested patient to be evaluated by speech therapy. Speech evaluated patient and stated patient can be on a regular, easy to chew diet with thin liquids. Provider made aware and gave orders to discontinue NG, place diet per speech recommendations, and to remove restraints.
[2024-02-13] MEDS: DEXTROSE 5% 1,000 ML 1,000 ML 125 ML IV CONT (17:46)
[2024-02-13 17:56] LABS: Glucose Point of Care 223 mg/dl (65-105)
[2024-02-13] MEDS: traZODone HCL 25 MG TABLET 75 MG PO (20:30)
[2024-02-13] MEDS: METOPROLOL TARTRATE 50 MG TAB PO (20:31)
[2024-02-13] MEDS: INSULIN GLARGINE (*BKC) 100 UNITS/ML 10 UNITS SUB-Q (20:33)
[2024-02-13 21:14] LABS: Glucose Point of Care 272 mg/dl (65-105)
[2024-02-14] VITALS (12 sets, daily range): BP systolic 110–148; BP diastolic 51–73; PULSE 62–87; RESP 18; TEMP 36.4–36.7; O2SAT 85–100
[2024-02-14 00:04] LABS: Glucose Point of Care 273 mg/dl (65-105)
[2024-02-14] MEDS: INSULIN ASPART (*BKC) 100 UNITS/ML SUB-Q ×5 (00:18→23:16)
[2024-02-14] MEDS: DEXTROSE 5% 1,000 ML 1,000 ML 125 ML IV CONT (02:01)
[2024-02-14 04:42] LABS: Glucose Point of Care 228 mg/dl (65-105)
[2024-02-14] MEDS: LEVOTHYROXINE SODIUM 100 MCG TABLET PO (05:31)
--- NOTE | 2024-02-14 05:33 | PCRCNOTE ---
Patient unable to wear bipap last night due to mental status. Patient would not be able to react and remove mask nor call out if he were to vomit or felt nauseous.
[2024-02-14 05:43] LABS: Basophils Absolute Auto 0.1 K/mm3 (0.0-0.1); Basophils Percent Auto 0.5 % (0.2-1.2); Eosinophils Absolute Auto 0.7 K/mm3 (0-0.3); Eosinophils Percent Auto 6.8 % (0-4.4); Hematocrit 29.6 % (42.0-52.0); Hemoglobin 8.5 g/dL (14.0-18.0); Immature Granulocyte Absolute 0.12 K/mm3 (0.00-0.031); Immature Granulocyte Percent A 1.2 % (0-0.5); Lymphocytes Absolute Auto 1.39 K/mm3 (0.9-3.2); Lymphocytes Percent Auto 14.3 % (18.3-44.2); Mean Corpuscular HGB Conc 28.7 g/dl (32-36); Mean Corpuscular Hemoglobin 24.3 pg (26-34); Mean Corpuscular Volume 84.6 fl (80-100); Mean Platelet Volume 10.3 fl (7.4-10.4); Monocytes Absolute Auto 0.8 K/mm3 (0.1-0.6); Neutrophils Absolute Auto 6.7 K/mm3 (1.3-6.7); Neutrophils Percent Auto 69.2 % (45.5-73.1); Nucleated Red Blood Cells Perc 0.3 % (0.0-0.2); Platelet Count Result 257 k/mm3 (150-375); Red Cell Distribution Width 18.4 % (11.5-14.5); White Blood Count 9.7 K/mm3 (4.5-10.0)
[2024-02-14 05:59] LABS: Alanine Aminotransferase 9 U/L (6-50); Albumin Level 2.8 g/dL (3.5-5.1); Alkaline Phosphatase 102 U/L (38-126); Anion Gap 2 mmol/L (4-12); Aspartate Amino Transferase 17 U/L (17-59); Bilirubin,Total 0.6 mg/dL (0.2-1.3); Blood Urea Nitrogen 34 mg/dL (9-20); Calcium 9.3 mg/dL (8.4-10.2); Carbon Dioxide 33 mmol/L (22-30); Chloride 107 mmol/L (98-107); Estimated CRCL calculation 74 ml/min; Estimated Glomerular Filt Rate 60; Glucose 241 mg/dL (65-110); Magnesium 1.8 mg/dL (1.6-2.3); Potassium 3.7 mmol/L (3.4-5.0); Sodium 142 mmol/L (137-145)
[2024-02-14 06:32] LABS: Anisocytosis 1+; Hypochromasia 1+; Platelet Estimate Adequate (Adequate); Schistocytes None Seen
[2024-02-14 08:12] LABS: Glucose Point of Care 205 mg/dl (65-105)
[2024-02-14] MEDS: METOPROLOL TARTRATE 50 MG TAB PO ×2 (09:15→20:50)
[2024-02-14] MEDS: lisinopriL 10 MG TABLET PO (09:15)
[2024-02-14] MEDS: amLODIPine BESYLATE 5 MG TABLET PO (09:16)
[2024-02-14] MEDS: GABAPENTIN 300 MG CAPSULE PO ×3 (09:16→17:27)
[2024-02-14] MEDS: buPROPion HCL XL (24 HR) 150 MG TABCR PO (09:17)
[2024-02-14] MEDS: PANTOPRAZOLE SODIUM IV 40 MG VIAL IV PUSH ×2 (09:17→20:48)
[2024-02-14] MEDS: MUPIROCIN 2% OINT 22 GM TUBE 1 APPLIC EACH NARE ×2 (09:17→20:43)
--- NOTE | 2024-02-14 09:42 | PM.IMPN ---
Progress Note: A&P Assessment and Plan (1) Sepsis: Code(s): A41.9 - Sepsis, unspecified organism Status: Acute Assessment and Plan: Pseudomonas bacteremia Likely Secondary to UTI CT scan reviewed He has wounds on his skin but they do not appear to be infected 02/07: Blood cultures growing gram-negative bacilli /2 bottles 02/07: Urine culture negative so far 02/09: will repeat blood cultures Discontinue IV fluids Off Levophed, his blood pressures are much improved Continue vancomycin and meropenem (02/07) 02/08/2024: CT chest abdomen and pelvis Impression: Exam degraded by motion artifact. Small right pleural effusion. Right paratracheal lymphadenopathy, nonspecific. Correlate for reactive/inflammatory nodes versus any possibility of lymphoma or metastatic disease. Questionable mild pulmonary edema versus motion artifact. Possible cystitis despite Coats catheter. Correlate with urinalysis. Cholelithiasis. Constipation. Bilateral ureteral stents with relatively stable right renal stones. No definite hydronephrosis. Continue Levaquin (2) JHONY (acute kidney injury): Code(s): N17.9 - Acute kidney failure, unspecified Status: Acute Assessment and Plan: reoslved Cr 1.3, Cr 1.6 on admission -CT scan of the abdomen pelvis shows stents in place with no hydronephrosis -creatinine is stable, if it continues to increase or urine output decreases will have Nephrology follow the patient (3) Encephalopathy: Code(s): G93.40 - Encephalopathy, unspecified Status: Acute Assessment and Plan: Head CT negative. Patient also received Versed in the ER Likely toxic metabolic encephalopathy Avoid sedatives Off Precedex infusion patient now at baseline mental status (4) Type 2 diabetes mellitus with hyperglycemia, with long-term current use of insulin: Code(s): E11.65 - Type 2 diabetes mellitus with hyperglycemia; Z79.4 - care home (current) use of insulin Status: Chronic Assessment and Plan: Continue Sliding scale insulin and Accu-Cheks (5) Atrial fibrillation with rapid ventricular response: Code(s): I48.91 - Unspecified atrial fibrillation Status: Chronic Assessment and Plan: Currently holding Accu-Cheks due to hematuria and anemia (6) GI bleed: Code(s): K92.2 - Gastrointestinal hemorrhage, unspecified Status: Acute Assessment and Plan: Patient has history of GI bleed and positive Hemoccult. Has drop in hemoglobin since last admission. He is on anticoagulation will be held IV Protonix q.12 hours GI has been consulted, appreciate evaluation and recommendations -stool for occult blood pending -Monitor hemoglobin and transfuse if needed -hemoglobin has been stable this morning on NG tube GI recommends conservative management with Protonix monitor H and H (7) Anemia: Qualifiers: Anemia type: unspecified type Qualified Code(s): D64.9 - Anemia, unspecified Code(s): D64.9 - Anemia, unspecified Status: Acute Assessment and Plan: See above Hb 8.9 and Isat 30 monitor H and H (8) Hypothyroidism: Code(s): E03.9 - Hypothyroidism, unspecified Status: Chronic Assessment and Plan: Continue IV levothyroxine (9) Acute respiratory failure: Code(s): J96.00 - Acute respiratory failure, unspecified whether with hypoxia or hypercapnia Status: Acute Assessment and Plan: s/p BiPAP Continue NC oxygen 2 liters monitor Plan Pseudomonas bacteremia likely from UTI repeat culture pending for now Continue levaquin monitor Lymphoma vs metastases Discussed pulmonology recommends outpatient follow up CT in 3 months monitor Anemia hb 8.5 isat 30 GI eval noted patient and since patient does not have any overt bleeding will contineu PPI monitor Hematuria s/p CBI and urine clear Urology noted it is likely traumatic JHONY, resolvin g Cr 1.2 monitor Protein energy malnutrition patient having adequate oral intake Speech eval cleared Schizophrenia Continue home meds Agitation, resolved Continue home sedatives and monitor DVT prophylaxis -SCD, hold chemical prophylaxis/anticoagulation due to hematuria and anemia secondary to likely GI bleed Stress ulcer prophylaxis -Protonix IV q.12 hours Awaiting Carecordinator for placement Code Status -full code Subjective Date/time seen: 02/14/24 09:42 Interval history: Patient now at baseline, alert and oriented x 2 but carrying on conversation having adequate oral intake Review of Systems Review of Systems: Unable to obtain accurately given clinical condition as above. All systems reviewed & are unremarkable except as noted in HPI and below ROS unobtainable: Yes unobtainable due to medical condition and unobtainable due to mental status Exam Narrative: General: More awake this morning,. On 2 L nasal cannula, in no acute distress Lungs/Chest: Trachea central coarse breath sounds bilaterally, decreased at bases, No crackles or wheezing. Cardiac: Irregularly irregular, Abdomen: Normoactive bowel sounds. Morbidly Obese. Soft. NT. ND. There appears and mesh underlying the skin in the midline Extremities: Bilateral feet have edema. He has 2 superficial wounds on the lateral aspect of left leg. He also has a wound which does not appear infected on the left heel. He has chronic venous stasis changes and edema : Coats in place Neurologic: Awake but unable to communicate meaningfully Skin: As above Objective Data Vital Signs Vital Signs: Vital Signs - 24 hr 02/13/24 12:00 02/13/24 16:00 02/13/24 16:00 Temperature 98.1 F Pulse Rate 111 H 99 104 H Respiratory Rate 18 Blood Pressure 164/91 H Pulse Oximetry 90 Oxygen Delivery Oxygen Flow Rate Fraction of Inspired Oxygen 02/13/24 20:01 02/13/24 20:11 02/13/24 20:31 Temperature 98.1 F Pulse Rate 109 H 109 H 92 Respiratory Rate 12 Blood Pressure 139/80 Pulse Oximetry 93 Oxygen Delivery Oxygen Flow Rate Fraction of Inspired Oxygen 02/13/24 20:31 02/14/24 00:00 02/14/24 00:00 Temperature 98.1 F Pulse Rate 77 76 Respiratory Rate 18 Blood Pressure 148/72 H Pulse Oximetry 98 100 Oxygen Delivery Room Air Oxygen Flow Rate Fraction of Inspired Oxygen 02/14/24 04:00 02/14/24 08:02 02/14/24 08:05 Temperature Pulse Rate 71 Respiratory Rate Blood Pressure Pulse Oximetry 85 L 94 Oxygen Delivery Room Air Nasal Cannula Oxygen Flow Rate 2 Fraction of Inspired Oxygen 21 28 02/14/24 09:15 Temperature Pulse Rate 76 Respiratory Rate Blood Pressure Pulse Oximetry Oxygen Delivery Oxygen Flow Rate Fraction of Inspired Oxygen Intake/Output Intake/Output: Intake & Output 02/11/24 02/12/24 02/13/24 02/14/24 23:59 23:59 23:59 23:59 Intake Total 994 1955 172 6840 Output Total 8060 4810 1999 1300 [facility] -[id number] [id number] Meds/Results Medications: Active Medications Generic Name Dose Route Start Last Admin Trade Name Freq PRN Reason Stop Dose Admin Acetaminophen 650 mg 02/10/24 13:28 Acetaminophen Elixir 325 Mg/10.15 Ml Udc PO Q6H PRN Mild Pain (1-3) or Fever Amlodipine Besylate 5 mg 02/11/24 11:40 02/14/24 09:16 Amlodipine Besylate 5 Mg Tablet PO 5 mg DAILY HERMILO Administration Bupropion HCl 150 mg 02/13/24 12:10 02/14/24 09:17 Bupropion Hcl Xl (24 Hr) 150 Mg Tabcr PO 150 mg QAM HERMILO Administration Dextrose 12.5 gm 02/08/24 10:49 Dextrose 50% 25 Gm/50 Ml Syringe IV PUSH PRN PRN Hypoglycemia Protocol Gabapentin 300 mg 02/13/24 13:00 02/14/24 09:16 Gabapentin 300 Mg Capsule PO 300 mg TID HERMILO Administration Glucagon 1 mg 02/08/24 10:49 Glucagon For Inj 1 Mg Vial IM PRN PRN Hypoglycemia Protocol Glucose 15 gm 02/08/24 10:49 Glucose Oral Gel 15 Gm Of Glucse In 37.5 Gm Tube PO PRN PRN Hypoglycemia Protocol Dextrose 1,000 mls @ 100 mls/hr 02/08/24 10:49 Dextrose 5% 1,000 Ml IVPB PRN PRN Hypoglycemia Protocol Vancomycin HCl 1,000 mg in 250 mls @ 250 mls/hr 02/13/24 10:00 02/13/24 13:04 Vancomycin 1,000 Mg/Ns 250 Ml IVPB 02/14/24 23:59 250 mls/hr Q24H HERMILO Administration Dextrose 1,000 mls @ 125 mls/hr 02/13/24 17:10 02/14/24 02:01 Dextrose 5% 1,000 Ml IV CONT 125 mls/hr .Q8H HERMILO Administration Insulin Aspart 4 - 8 units 02/08/24 13:00 02/14/24 09:17 Insulin Aspart (*Bkc) 100 Units/Ml SUB-Q 4 units Q4HR HERMILO Administration Protocol Insulin Glargine 10 units 02/13/24 21:00 02/13/24 20:33 Insulin Glargine (*Bkc) 100 Units/Ml SUB-Q 10 units HS HERMILO Administration Levofloxacin 750 mg 02/11/24 14:00 02/13/24 13:05 Levofloxacin 750 Mg Tablet PO 02/21/24 14:01 750 mg DAILY@1400 HERMILO Administration Levothyroxine Sodium 100 mcg 02/14/24 06:30 02/14/24 05:31 Levothyroxine Sodium 100 Mcg Tablet PO 100 mcg DAILY@0630 HERMILO Administration Lisinopril 10 mg 02/11/24 11:40 02/14/24 09:15 Lisinopril 10 Mg Tablet PO 10 mg DAILY HERMILO Administration Metoprolol Tartrate 50 mg 02/13/24 21:00 02/14/24 09:15 Metoprolol Tartrate 50 Mg Tab PO 50 mg Q12HR HERMILO Administration Mupirocin 1 applic 02/09/24 09:00 02/14/24 09:17 Mupirocin 2% Oint 22 Gm Tube EACH NARE 1 applic Q12HR HERMILO Administration Pantoprazole Sodium 40 mg 02/08/24 21:00 02/14/24 09:17 Pantoprazole Sodium Iv 40 Mg Vial IV PUSH 40 mg Q12HR HERMILO Administration Trazodone HCl 75 mg 02/13/24 21:00 02/13/24 20:30 Trazodone Hcl 25 Mg Tablet PO 75 mg HS HERMILO Administration Radiology Results: ITS Impressions Head CT 02/08/24 08:08 Impression: No significant abnormality identified. Exam somewhat degraded by motion artifact. Atrophy and chronic white matter changes, as above. Chest/Abdomen/Pelvis CT 02/08/24 08:09 Impression: Exam degraded by motion artifact. Small right pleural effusion. Right paratracheal lymphadenopathy, nonspecific. Correlate for reactive/inflammatory nodes versus any possibility of lymphoma or metastatic disease. Questionable mild pulmonary edema versus motion artifact. Possible cystitis despite Coats catheter. Correlate with urinalysis. Cholelithiasis. Constipation. Bilateral ureteral stents with relatively stable right renal stones. No definite hydronephrosis. Chest X-Ray 02/11/24 12:51 Impression: 1: Cardiomegaly with interstitial edema. 2: Small right pleural effusion. Abdomen X-Ray 02/13/24 11:55 IMPRESSION: 1. Nasogastric tube in the stomach. Labs Labs: Laboratory Results - last 24 hr 02/13/24 02/13/24 02/13/24 12:24 17:44 20:16 WBC RBC Hgb Hct MCV MCH MCHC RDW Plt Count MPV Immature Gran % (Auto) Neut % (Auto) Lymph % (Auto) [place] % (Auto) Eos % (Auto) Baso % (Auto) Lymph # (Auto) [place] # (Auto) Eos # (Auto) Baso # (Auto) Abs Immat Gran (auto) Absolute Neuts (auto) Absolute Nucleated RBC Nucleated RBC % Platelet Estimate Hypochromasia Anisocytosis Schistocytes Sodium Potassium Chloride Carbon Dioxide Anion Gap BUN Creatinine Estim Creat Clear Calc Estimated GFR Glucose POC Capillary Glucose 265 H 223 H 272 H Calcium Magnesium Total Bilirubin AST ALT Alkaline Phosphatase Total Protein Albumin 02/13/24 02/14/24 02/14/24 23:54 04:23 05:23 WBC 9.7 RBC 3.50 L Hgb 8.5 L Hct 29.6 L MCV 84.6 MCH 24.3 L MCHC 28.7 L RDW 18.4 H Plt Count 257 MPV 10.3 Immature Gran % (Auto) 1.2 H Neut % (Auto) 69.2 Lymph % (Auto) 14.3 L [place] % (Auto) 8.0 Eos % (Auto) 6.8 H Baso % (Auto) 0.5 Lymph # (Auto) 1.39 [place] # (Auto) 0.8 H Eos # (Auto) 0.7 H Baso # (Auto) 0.1 Abs Immat Gran (auto) 0.12 H Absolute Neuts (auto) 6.7 Absolute Nucleated RBC 0.030 H Nucleated RBC % 0.3 H Platelet Estimate Adequate Hypochromasia 1+ Anisocytosis 1+ Schistocytes None seen Sodium 142 Potassium 3.7 Chloride 107 Carbon Dioxide 33 H Anion Gap 2 L BUN 34 H Creatinine 1.20 Estim Creat Clear Calc 74 Estimated GFR 60 Glucose 241 H POC Capillary Glucose 273 H 228 H Calcium 9.3 Magnesium 1.8 Total Bilirubin 0.6 AST 17 ALT 9 Alkaline Phosphatase 102 Total Protein 7.0 Albumin 2.8 L 02/14/24 08:08 WBC RBC Hgb Hct MCV MCH MCHC RDW Plt Count MPV Immature Gran % (Auto) Neut % (Auto) Lymph % (Auto) [place] % (Auto) Eos % (Auto) Baso % (Auto) Lymph # (Auto) [place] # (Auto) Eos # (Auto) Baso # (Auto) Abs Immat Gran (auto) Absolute Neuts (auto) Absolute Nucleated RBC Nucleated RBC % Platelet Estimate Hypochromasia Anisocytosis Schistocytes Sodium Potassium Chloride Carbon Dioxide Anion Gap BUN Creatinine Estim Creat Clear Calc Estimated GFR Glucose POC Capillary Glucose 205 H Calcium Magnesium Total Bilirubin AST ALT Alkaline Phosphatase Total Protein Albumin Quality VTE Prophylaxis VTE prophylaxis: mechanical ordered
[2024-02-14] MEDS: VANCOMYCIN 1,000 MG/NS 250 ML 1,000 MG/250 ML BAG 250 MG IVPB (11:07)
[2024-02-14 12:06] LABS: Glucose Point of Care 253 mg/dl (65-105)
[2024-02-14] MEDS: levoFLOXacin 750 MG TABLET PO (12:59)
[2024-02-14 16:58] LABS: Glucose Point of Care 179 mg/dl (65-105)
[2024-02-14] MEDS: BISACODYL 5 MG TABLET EC PO (17:27)
[2024-02-14] MEDS: traZODone HCL 25 MG TABLET 75 MG PO (20:43)
[2024-02-14 22:09] LABS: Glucose Point of Care 214 mg/dl (65-105)
[2024-02-14] MEDS: INSULIN GLARGINE (*BKC) 100 UNITS/ML 10 UNITS SUB-Q (23:17)
[2024-02-15] VITALS (9 sets, daily range): BP systolic 115–121; BP diastolic 62–74; PULSE 59–75; RESP 18; TEMP 36.5–36.6; O2SAT 92–99
[2024-02-15 01:25] LABS: Glucose Point of Care 156 mg/dl (65-105)
[2024-02-15 05:36] LABS: Glucose Point of Care 136 mg/dl (65-105)
[2024-02-15] MEDS: LEVOTHYROXINE SODIUM 100 MCG TABLET PO (06:31)
[2024-02-15 08:11] LABS: Glucose Point of Care 104 mg/dl (65-105)
[2024-02-15] MEDS: amLODIPine BESYLATE 5 MG TABLET PO (09:23)
[2024-02-15] MEDS: METOPROLOL TARTRATE 50 MG TAB PO (09:23)
[2024-02-15] MEDS: lisinopriL 10 MG TABLET PO (09:23)
[2024-02-15] MEDS: GABAPENTIN 300 MG CAPSULE PO ×2 (09:23→12:53)
[2024-02-15] MEDS: buPROPion HCL XL (24 HR) 150 MG TABCR PO (09:24)
[2024-02-15] MEDS: PANTOPRAZOLE SODIUM IV 40 MG VIAL IV PUSH (09:24)
[2024-02-15] MEDS: MUPIROCIN 2% OINT 22 GM TUBE 1 APPLIC EACH NARE (09:24)
[2024-02-15] MEDS: polyethylene glycoL 3350 17 GM POWD.PACK PO (09:24)
--- NOTE | 2024-02-15 11:37 | PM.IMPN ---
Subjective Date/time seen: 02/15/24 11:37 Interval history: Comfortable at bedside Discussed with Objective Data Vital Signs Vital Signs: Vital Signs - 24 hr 02/14/24 12:00 02/14/24 15:47 02/14/24 16:00 Temperature 98.0 F Pulse Rate 62 74 71 Respiratory Rate 18 Blood Pressure 114/59 L Pulse Oximetry 97 Oxygen Delivery Oxygen Flow Rate Fraction of Inspired Oxygen 02/14/24 20:00 02/14/24 20:00 02/14/24 21:55 Temperature 97.9 F Pulse Rate 69 80 69 Respiratory Rate 18 18 Blood Pressure 126/73 Pulse Oximetry 95 95 Oxygen Delivery Room Air Oxygen Flow Rate Fraction of Inspired Oxygen 28 02/15/24 00:00 02/15/24 04:00 02/15/24 04:30 Temperature 97.7 F Pulse Rate 62 60 61 Respiratory Rate 18 Blood Pressure 121/74 Pulse Oximetry 97 Oxygen Delivery Oxygen Flow Rate Fraction of Inspired Oxygen 02/15/24 08:29 02/15/24 09:23 Temperature Pulse Rate 75 Respiratory Rate Blood Pressure Pulse Oximetry 92 Oxygen Delivery Nasal Cannula Oxygen Flow Rate 1 Fraction of Inspired Oxygen 24 Intake/Output Intake/Output: Intake & Output 02/12/24 02/13/24 02/14/24 02/15/24 23:59 23:59 23:59 23:59 Intake Total 4277 396 2355 910 Output Total 3150 2000 2250 1000 [facility] [place] -[facility]0 1190 -90 Meds/Results Medications: Active Medications Generic Name Dose Route Start Last Admin Trade Name Freq PRN Reason Stop Dose Admin Acetaminophen 650 mg 02/10/24 13:28 Acetaminophen Elixir 325 Mg/10.15 Ml Udc PO Q6H PRN Mild Pain (1-3) or Fever Amlodipine Besylate 5 mg 02/11/24 11:40 02/15/24 09:23 Amlodipine Besylate 5 Mg Tablet PO 5 mg DAILY HERMILO Administration Bupropion HCl 150 mg 02/13/24 12:10 02/15/24 09:24 Bupropion Hcl Xl (24 Hr) 150 Mg Tabcr PO 150 mg QAM HERMILO Administration Dextrose 12.5 gm 02/08/24 10:49 Dextrose 50% 25 Gm/50 Ml Syringe IV PUSH PRN PRN Hypoglycemia Protocol Gabapentin 300 mg 02/13/24 13:00 02/15/24 09:23 Gabapentin 300 Mg Capsule PO 300 mg TID HERMILO Administration Glucagon 1 mg 02/08/24 10:49 Glucagon For Inj 1 Mg Vial IM PRN PRN Hypoglycemia Protocol Glucose 15 gm 02/08/24 10:49 Glucose Oral Gel 15 Gm Of Glucse In 37.5 Gm Tube PO PRN PRN Hypoglycemia Protocol Dextrose 1,000 mls @ 100 mls/hr 02/08/24 10:49 Dextrose 5% 1,000 Ml IVPB PRN PRN Hypoglycemia Protocol Insulin Aspart 4 - 8 units 02/08/24 13:00 02/15/24 09:21 Insulin Aspart (*Bkc) 100 Units/Ml SUB-Q Not Given Q4HR HERMILO Protocol Insulin Glargine 10 units 02/13/24 21:00 02/14/24 23:17 Insulin Glargine (*Bkc) 100 Units/Ml SUB-Q 10 units HS HERMILO Administration Levofloxacin 750 mg 02/11/24 14:00 02/14/24 12:59 Levofloxacin 750 Mg Tablet PO 02/21/24 14:01 750 mg DAILY@1400 HERMILO Administration Levothyroxine Sodium 100 mcg 02/14/24 06:30 02/15/24 06:31 Levothyroxine Sodium 100 Mcg Tablet PO 100 mcg DAILY@0630 HERMILO Administration Lisinopril 10 mg 02/11/24 11:40 02/15/24 09:23 Lisinopril 10 Mg Tablet PO 10 mg DAILY HERMILO Administration Metoprolol Tartrate 50 mg 02/13/24 21:00 02/15/24 09:23 Metoprolol Tartrate 50 Mg Tab PO 50 mg Q12HR HERMILO Administration Mupirocin 1 applic 02/09/24 09:00 02/15/24 09:24 Mupirocin 2% Oint 22 Gm Tube EACH NARE 1 applic Q12HR HERMILO Administration Pantoprazole Sodium 40 mg 02/08/24 21:00 02/15/24 09:24 Pantoprazole Sodium Iv 40 Mg Vial IV PUSH 40 mg Q12HR HERMILO Administration Polyethylene Glycol 17 gm 02/15/24 09:00 02/15/24 09:24 Polyethylene Glycol 3350 17 Gm Powd.Pack PO 17 gm QAM HERMILO Administration Trazodone HCl 75 mg 02/13/24 21:00 02/14/24 20:43 Trazodone Hcl 25 Mg Tablet PO 75 mg HS HERMILO Administration Radiology Results: ITS Impressions Head CT 02/08/24 08:08 Impression: No significant abnormality identified. Exam somewhat degraded by motion artifact. Atrophy and chronic white matter changes, as above. Chest/Abdomen/Pelvis CT 02/08/24 08:09 Impression: Exam degraded by motion artifact. Small right pleural effusion. Right paratracheal lymphadenopathy, nonspecific. Correlate for reactive/inflammatory nodes versus any possibility of lymphoma or metastatic disease. Questionable mild pulmonary edema versus motion artifact. Possible cystitis despite Coats catheter. Correlate with urinalysis. Cholelithiasis. Constipation. Bilateral ureteral stents with relatively stable right renal stones. No definite hydronephrosis. Chest X-Ray 02/11/24 12:51 Impression: 1: Cardiomegaly with interstitial edema. 2: Small right pleural effusion. Abdomen X-Ray 02/13/24 11:55 IMPRESSION: 1. Nasogastric tube in the stomach. Abdomen/Pelvis CT 02/14/24 16:06 IMPRESSION: Subsegmental bilateral dependent atelectasis/consolidation. Mild pulmonary edema. Moderate right and small left pleural effusions. Stable nephrolithiasis. Ureteral stents in good position. Ruptured exophytic simple cyst at the left midpole. Bladder wall thickening may be secondary to incomplete distention or cystitis, correlate with urinalysis. Likely fecal impaction. Labs Labs: Laboratory Results - last 24 hr 02/14/24 02/14/24 02/14/24 12:02 16:55 21:53 POC Capillary Glucose 253 H 179 H 214 H 02/15/24 02/15/24 02/15/24 01:21 04:46 08:08 POC Capillary Glucose 156 H 136 H 104
[2024-02-15 12:26] LABS: Glucose Point of Care 181 mg/dl (65-105)
--- NOTE | 2024-02-15 12:53 | WPDUROPN2 ---
Progress Note: A&P Assessment and Plan (1) Bilateral renal stones: Code(s): N20.0 - Calculus of kidney Status: Acute Assessment and Plan: His main issue is a significant stone burden in the right kidney. This would require a percutaneous nephrolithotomy to address. Given his significant comorbid issues he is not a candidate here at this [facility] to have it done. I had recommended he follow-up at either [facility] or [facility]. That was never scheduled. I spoke to his Yumiko will pass on to the residential to have an appointment made at either facility. Small little calcifications in the left kidney are clinically insignificant. A left ureteral stent was placed in November due to some mild hydro and the fact that he was septic in nature. Subjective Subjective Date/Time Seen: 02/15/24 12:53 Principal diagnosis: Right renal calculi Interval history: Taye is ready for discharge at this time. He does not really remember or understand what is care needs to be. He has significant right renal burden of stones which were require further management at a tertiary care center. I have discussed this with his Yumiko will pass this on to the residential to have scheduled. Review of Systems Review of Systems: All systems reviewed & are unremarkable except as noted in HPI and below Objective Data Vital Signs Vital Signs: Vital Signs - 24 hr 02/14/24 15:47 02/14/24 16:00 02/14/24 20:00 Temperature 36.7 C Pulse Rate 74 71 69 Respiratory Rate 18 18 Blood Pressure 114/59 L Pulse Oximetry 97 95 Oxygen Delivery Room Air Oxygen Flow Rate Fraction of Inspired Oxygen 28 02/14/24 20:00 02/14/24 21:55 02/15/24 00:00 Temperature 36.6 C Pulse Rate 80 69 62 Respiratory Rate 18 Blood Pressure 126/73 Pulse Oximetry 95 Oxygen Delivery Oxygen Flow Rate Fraction of Inspired Oxygen 02/15/24 04:00 02/15/24 04:30 02/15/24 08:29 Temperature 36.5 C Pulse Rate 60 61 Respiratory Rate 18 Blood Pressure 121/74 Pulse Oximetry 97 92 Oxygen Delivery Nasal Cannula Oxygen Flow Rate 1 Fraction of Inspired Oxygen 24 02/15/24 09:20 02/15/24 09:23 Temperature Pulse Rate 75 Respiratory Rate Blood Pressure Pulse Oximetry 92 Oxygen Delivery Nasal Cannula Oxygen Flow Rate 2 Fraction of Inspired Oxygen Intake/Output Intake/Output: Intake & Output 02/12/24 02/13/24 02/14/24 02/15/24 23:59 23:59 23:59 23:59 Intake Total 4107 626 6347 910 Output Total 3150 2000 2250 1000 Balance -2041 -1510 1190 -90 Meds/Results Medications: Active Medications Generic Name Dose Route Start Last Admin Trade Name Freq PRN Reason Stop Dose Admin Acetaminophen 650 mg 02/10/24 13:28 Acetaminophen Elixir 325 Mg/10.15 Ml Udc PO Q6H PRN Mild Pain (1-3) or Fever Amlodipine Besylate 5 mg 02/11/24 11:40 02/15/24 09:23 Amlodipine Besylate 5 Mg Tablet PO 5 mg DAILY HERMILO Administration Bupropion HCl 150 mg 02/13/24 12:10 02/15/24 09:24 Bupropion Hcl Xl (24 Hr) 150 Mg Tabcr PO 150 mg QAM HERMILO Administration Dextrose 12.5 gm 02/08/24 10:49 Dextrose 50% 25 Gm/50 Ml Syringe IV PUSH PRN PRN Hypoglycemia Protocol Gabapentin 300 mg 02/13/24 13:00 02/15/24 09:23 Gabapentin 300 Mg Capsule PO 300 mg TID HERMILO Administration Glucagon 1 mg 02/08/24 10:49 Glucagon For Inj 1 Mg Vial IM PRN PRN Hypoglycemia Protocol Glucose 15 gm 02/08/24 10:49 Glucose Oral Gel 15 Gm Of Glucse In 37.5 Gm Tube PO PRN PRN Hypoglycemia Protocol Dextrose 1,000 mls @ 100 mls/hr 02/08/24 10:49 Dextrose 5% 1,000 Ml IVPB PRN PRN Hypoglycemia Protocol Insulin Aspart 4 - 8 units 02/08/24 13:00 02/15/24 12:34 Insulin Aspart (*Bkc) 100 Units/Ml SUB-Q Not Given Q4HR [facility] Protocol Insulin Glargine 10 units 02/13/24 21:00 02/14/24 23:17 Insulin Glargine (*Bkc) 100 Units/Ml SUB-Q 10 units HS HERMILO Administration Levofloxacin 750 mg 02/11/24 14:00 02/14/24 12:59 Levofloxacin 750 Mg Tablet PO 02/21/24 14:01 750 mg DAILY@1400 HERMILO Administration Levothyroxine Sodium 100 mcg 02/14/24 06:30 02/15/24 06:31 Levothyroxine Sodium 100 Mcg Tablet PO 100 mcg DAILY@0630 HERMILO Administration Lisinopril 10 mg 02/11/24 11:40 02/15/24 09:23 Lisinopril 10 Mg Tablet PO 10 mg DAILY HERMILO Administration Metoprolol Tartrate 50 mg 02/13/24 21:00 02/15/24 09:23 Metoprolol Tartrate 50 Mg Tab PO 50 mg Q12HR HERMILO Administration Mupirocin 1 applic 02/09/24 09:00 02/15/24 09:24 Mupirocin 2% Oint 22 Gm Tube EACH NARE 1 applic Q12HR HERMILO Administration Pantoprazole Sodium 40 mg 02/08/24 21:00 02/15/24 09:24 Pantoprazole Sodium Iv 40 Mg Vial IV PUSH 40 mg Q12HR HERMILO Administration Polyethylene Glycol 17 gm 02/15/24 09:00 02/15/24 09:24 Polyethylene Glycol 3350 17 Gm Powd.Pack PO 17 gm QAM HERMILO Administration Trazodone HCl 75 mg 02/13/24 21:00 02/14/24 20:43 Trazodone Hcl 25 Mg Tablet PO 75 mg HS HERMILO Administration Radiology Results: ITS Impressions Head CT 02/08/24 08:08 Impression: No significant abnormality identified. Exam somewhat degraded by motion artifact. Atrophy and chronic white matter changes, as above. Chest/Abdomen/Pelvis CT 02/08/24 08:09 Impression: Exam degraded by motion artifact. Small right pleural effusion. Right paratracheal lymphadenopathy, nonspecific. Correlate for reactive/inflammatory nodes versus any possibility of lymphoma or metastatic disease. Questionable mild pulmonary edema versus motion artifact. Possible cystitis despite Coats catheter. Correlate with urinalysis. Cholelithiasis. Constipation. Bilateral ureteral stents with relatively stable right renal stones. No definite hydronephrosis. Chest X-Ray 02/11/24 12:51 Impression: 1: Cardiomegaly with interstitial edema. 2: Small right pleural effusion. Abdomen X-Ray 02/13/24 11:55 IMPRESSION: 1. Nasogastric tube in the stomach. Abdomen/Pelvis CT 02/14/24 16:06 IMPRESSION: Subsegmental bilateral dependent atelectasis/consolidation. Mild pulmonary edema. Moderate right and small left pleural effusions. Stable nephrolithiasis. Ureteral stents in good position. Ruptured exophytic simple cyst at the left midpole. Bladder wall thickening may be secondary to incomplete distention or cystitis, correlate with urinalysis. Likely fecal impaction. Labs Labs: Laboratory Results - last 24 hr 02/14/24 02/14/24 02/15/24 16:55 21:53 01:21 POC Capillary Glucose 179 H 214 H 156 H 02/15/24 02/15/24 02/15/24 04:46 08:08 12:02 POC Capillary Glucose 136 H 104 181 H
--- NOTE | 2024-02-15 14:22 | PM.DS ---
DS: Admitting Diagnosis Discharge Date 02/13/2024 Admitting Diagnosis Confused and agitated. DS: Summary Hospital Course Hospital Course: This is a 68-year-old male with dementia, paroxysmal atrial fibrillation, diastolic congestive heart failure, insulin-dependent diabetes, hypothyroidism, hypertension, untreated obstructive sleep apnea, chronic venous stasis dermatitis, indwelling Coats catheter, kidney stones, chronic left heel wound with history of osteomyelitis of the left calcaneus with previous cultures growing out Pseudomonas and MRSA, and other comorbidities who presented to the emergency department via EMS from [facility] for evaluation increased confusion and agitation. He is currently on a dexmedetomidine drip and is somnolent but arousable though is not able to provide any meaningful history. As such a majority the following is obtained via a review of his EMR as well as information provided by his . Transferring facility did not provide any significant insight when they transferred the patient to the ED aside from the fact that he was more confused and hallucinating. There were no reports of recent falls or illnesses. In the ED: Vital signs on arrival include a temperature of 94.8?, blood pressure 90 5.7, pulse 70, respiratory 18, SpO2 98%. Labs were significant for a WBC count of 12.4, hemoglobin 8.7, sodium 134, potassium 5.5, BUN 61, creatinine 1.60, lactic acid 1.1, proBNP 2600, troponin less than 0.012, albumin 2.9. Urinalysis was positive for 3+ protein, 3+ blood, 3+ leukocyte esterase, greater than 100 RBC and WBC, 3+ leukocyte esterase, nitrates, and 4+ bacteria. Head CT showed no significant abnormality though exam limited due to motion artifact. CT of the chest, abdomen, and pelvis was also limited by motion and showed small right pleural effusion, questionable mild pulmonary edema, possible cystitis, cholelithiasis, constipation, and bilateral ureteral stents with relatively stable right renal stones with no definite hydronephrosis. Chest x-ray showed mild bibasilar pulmonary edema and cardiomegaly. He was started on meropenem and vancomycin and he was given a 3 L normal saline bolus. He remained hypotensive despite this and a central line was inserted and he is currently on norepinephrine. He was admitted to the ICU for further treatment. Patient was managed for septic shock, likely from UTI and had pseudomonas bacteremia, and placed on antibiotics per sensitivity. Discharged on 7 more days of Levaquin. repeat blood culture negative so far. Urology was consulted on ureteral stone, however he recommended repeat CT AP on stabilization, CT scan obtained yesterday showed stable bilateral nephrolithiasis and ureteral stents. Urology evaluated and recommended follow up with [facility] urology for percutaneous nephrolithotomy, they reckoned due to multiple comorbidity. hamturia resolved s/p CBI and JHONY resolved. Anemia, hb 8.5, GI was consulted for GI bleed eval however they recommended conservative management with Protonix. isat 30 and thus patient did not IV infusion.. f/u with GI as instructed Pulmonology was consulted for right paratracheal lymphadenopathy possible lymphoma vs metastatic disease. Pulmonology was consulted and recommended follow up CT in 3 months. F/u with PCP. F/u with PCP in 3-5 days, F/u with urology and GI as instructed. F/u with PCP for follow up CT Chest in 3 months. Pseudomonas bacteremia likely from UTI repeat culture pending for now Continue levaquin monitor Lymphoma vs metastases Discussed pulmonology recommends outpatient follow up CT in 3 months monitor Anemia hb 8.5 isat 30 GI eval noted patient and since patient does not have any overt bleeding will contineu PPI monitor Hematuria s/p CBI and urine clear Urology noted it is likely traumatic JHONY, resolvin g Cr 1.2 monitor Protein energy malnutrition patient having adequate oral intake Speech eval cleared Schizophrenia Continue home meds Agitation, resolved Continue home sedatives and monitor Time Spent with Patient Time attestation: Total time spent providing and/or coordinating discharge services: DS: Data Data Completed and Pending Labs on day of discharge: Labs from last 24 hours 02/15/24 02/15/24 02/15/24 12:02 08:08 04:46 POC Capillary Glucose 181 H 104 136 H 02/15/24 02/14/24 02/14/24 01:21 21:53 16:55 POC Capillary Glucose 156 H 214 H 179 H Preliminary micro results at discharge 02/10/24 07:46 Blood Culture - Preliminary Blood 02/10/24 08:02 Blood Culture - Preliminary Blood Discharge Plan Discharge Attending physician on discharge: Debbie Salomon Consulting providers: Damion Lott; Keven Ferreira; Flori Kay Discharging Clinician: Debbie Salomon Anticipated Discharge Date/Time: 02/14/24 13:33 Patient Disposition: SNF Activity: as tolerated Diet: as tolerated Discharge Instructions: Patient follow-up with Urology at [facility] per recommendations of all urology. F/u with PCP in 3-5 days, F/u with urology and GI as instructed. F/u with PCP for follow up CT Chest in 3 months. Patient Instructions: Antibiotic Form, Heart Failure (GEN) Patient Language: Yi Stand Alone Forms: General Discharge Information Follow-up/Referrals: Lawrence,MD Asael [Primary Care Provider] - (F/u with PCP in 3-5 days ) Flori Kay MD [Physician] - (Follow-up with Urology as instructed, also follow-up with his Urology at [facility].) Keven Ferreira MD [Physician] - (Follow-up with GI as instructed.) Discharge Medications: New levofloxacin 750 mg tablet 750 mg PO DAILY 8 Days Qty: 8 0RF Continued Eliquis 5 mg Tablet 5 mg PO Q12HR Qty: 60 0RF sennosides-docusate sodium [Senna Plus] 8.6-50 mg Tablet 1 tablet PO BID acetaminophen [Tylenol] 325 mg Capsule 650 mg PO Q4-6H PRN (Reason: Pain (Scale Score 1-3)) melatonin 5 mg Tablet 5 mg PO HS polyethylene glycol 3350 [Miralax] 17 gram Powder In Packet 17 g PO BID Qty: 30 0RF magnesium oxide 400 mg (241.3 mg magnesium) tablet 400 mg PO DAILY Novolin 70-30 FlexPen U-100 100 unit/mL (70-30) insulin pen 25 unit SUBCUT QAM metoprolol succinate [Toprol XL] 25 mg Tablet Extended Release 24 Hr 75 mg PO QAM Qty: 90 0RF nystatin 100,000 unit/gram Cream 1 applic TOPICAL BID Rx Instructions: APPLY TO BILAT BUTTOCKS, SACRUM, POSTERIOR THIGH lisinopril 10 mg tablet 10 mg PO DAILY Rexulti 0.5 mg Tablet 0.5 mg PO DAILY gabapentin 100 mg capsule 300 mg PO TID trazodone 50 mg Tablet 75 mg PO HS levothyroxine 100 mcg tablet 100 mcg PO DAILY ipratropium-albuterol 0.5 mg-3 mg(2.5 mg base)/3 mL Solution For Nebulization 3 ml INHALATION Q4H PRN (Reason: Wheezing) pravastatin 40 mg Tablet 40 mg PO HS multivit with min-folic acid 0.4 mg Tablet 1 tablet PO DAILY bupropion HCl 150 mg Tablet Extended Release 24 Hr 150 mg PO QAM Qty: 30 0RF amlodipine [Norvasc] 5 mg Tablet 5 mg PO DAILY Qty: 30 0RF pantoprazole [Protonix] 40 mg tablet,delayed release (DR/EC) 40 mg PO QAM Qty: 30 0RF famotidine 20 mg tablet 20 mg PO QHS Qty: 30 0RF valsartan 40 mg tablet 40 mg PO DAILY Qty: 30 0RF Novolin 70-30 FlexPen U-100 100 unit/mL (70-30) insulin pen 15 unit SUBCUT 1700 Qty: 15 0RF Minerin Creme Cream 1 applic topical DAILY Qty: 113 0RF Rx Instructions: Bilateral lower extremity intact skin Date of admission: 02/08/24 08:44 Primary Care Provider: LawrenceAsael Admitting Provider: Toy Ba Attending physician on admission: Toy Ba Condition: Improved
[2024-02-15] MEDS: levoFLOXacin 750 MG TABLET PO (15:01)
== END 2024-02-15 16:40 | DRG 698 ==
LOC: ANHED 07:39 → ANHICU 09:41 → ANH2MED 02-14 13:34 → ANHICU 02-16 09:40 → ANH2MED 02-16 09:40 → ANHIMU 02-16 09:40
PROVIDERS: Internal Medicine; Physician Assistant; Admitting Provider General Practice; Emergency Provider Emergency Medicine; PCP Internal Medicine; Visit Provider Internal Medicine
DX: T83.511A Infection and inflammatory reaction due to indwelling urethral catheter, initial encounter (principal); A41.9 Sepsis, unspecified organism; G93.41 Metabolic encephalopathy; J96.01 Acute respiratory failure with hypoxia; R65.21 Severe sepsis with septic shock; I50.32 Chronic diastolic (congestive) heart failure; N17.9 Acute kidney failure, unspecified; E46 Unspecified protein-calorie malnutrition; S37.39XA Other injury of urethra, initial encounter; N13.30 Unspecified hydronephrosis; N39.0 Urinary tract infection, site not specified; R31.0 Gross hematuria; F03.90 Unspecified dementia, unspecified severity, without behavioral disturbance, psychotic disturbance, mood disturbance, and anxiety; E03.9 Hypothyroidism, unspecified; G47.33 Obstructive sleep apnea (adult) (pediatric); I11.0 Hypertensive heart disease with heart failure; D64.9 Anemia, unspecified; Z68.35 Body mass index [BMI] 35.0-35.9, adult; F20.9 Schizophrenia, unspecified; R45.1 Restlessness and agitation; E11.42 Type 2 diabetes mellitus with diabetic polyneuropathy; K21.9 Gastro-esophageal reflux disease without esophagitis; E66.01 Morbid (severe) obesity due to excess calories; E78.5 Hyperlipidemia, unspecified; I48.0 Paroxysmal atrial fibrillation; X58.XXXA Exposure to other specified factors, initial encounter; E11.65 Type 2 diabetes mellitus with hyperglycemia; B96.5 Pseudomonas (aeruginosa) (mallei) (pseudomallei) as the cause of diseases classified elsewhere; J44.9 Chronic obstructive pulmonary disease, unspecified; N20.0 Calculus of kidney; Z79.4 Long term (current) use of insulin; Z90.49 Acquired absence of other specified parts of digestive tract; Z87.891 Personal history of nicotine dependence; Z22.322 Carrier or suspected carrier of Methicillin resistant Staphylococcus aureus; E86.0 Dehydration; E87.5 Hyperkalemia; S81.801A Unspecified open wound, right lower leg, initial encounter; S81.802A Unspecified open wound, left lower leg, initial encounter; K80.20 Calculus of gallbladder without cholecystitis without obstruction; R59.1 Generalized enlarged lymph nodes; Z79.01 Long term (current) use of anticoagulants
CPT/HCPCS: 36415; 36556; 36600; 70450; 71045; 71260; 74176; 74177; 80048; 80053; 80202; 80307; 81001; 82077; 82140; 82274; 82728; 82805; 82948; 83540; 83550; 83605; 83690; 83735; 83880; 84100; 84439; 84443; 84480; 84484; 85014; 85018; 85025; 85610; 85730; 87040; 87086; 87186; 87637; 87641; 92610; 93005; 94002; 94640; 96365; 96366; 96375; 99291; A9270; C1751; J0612; J0650; J1815; J1940; J2185; J2250; J2470; J3370; J7030; J7070; J7120; P9047; Q9967

== ENCOUNTER 2024-02-28 13:13 | Inpatient (IN) | payer MEDICARE, MEDICAID, SELFPAY ==
[2024-02-28] VITALS (128 sets, daily range): BP systolic 75–135; BP diastolic 39–85; PULSE 31–98; RESP 12–26; TEMP 29.9–35.9; O2SAT 73–100
--- NOTE | ~2024-02-28 | XR_ITS ---
Exam: Abdomen 1V HISTORY: intubation COMPARISON: None. TECHNIQUE: Supine images of the lower chest and upper abdomen FINDINGS: Nasogastric tube extends into the left upper quadrant, presumably within the stomach. IMPRESSION: Nasogastric tube in good position and ready for immediate use. Reviewed, dictated and finalized at location A. ER OPERATOR
--- NOTE | ~2024-02-28 | XR_ITS ---
EXAMINATION: XR chest 1V portable DATE: 02/29/2024 08:15 INDICATION: Septic shock. TECHNIQUE: A single frontal view of the chest was obtained on 2 radiographs. COMPARISON: Chest view 02/28/2024, chest CT 02/28/2024 FINDINGS: There is a moderate-sized right pleural effusion. There are airspace opacities in right mid and lower lung zones and left lower lung zone. No pneumothorax. Cardiomegaly is noted. The endotrach eal tube tip is 5.0 cm above the rhonda. The nasogastric tube tip is in the stomach. IMPRESSION: 1. Stable airspace opacities in right mid and lower lung zones and left lower lung zone, consistent w ith atelectasis versus pneumonia. 2. Stable moderate-sized right pleural effusion. 3. Cardiomegaly. Reviewed, dictated and finalized at location [] F COOK IMPRESSION: 1. Stable airspace opacities in right mid and lower lung zones and left lower l paul zone, consistent with atelectasis versus pneumonia. 2. Stable moderate-sized right pleural effusion. 3. Cardiomegaly.
--- NOTE | ~2024-02-28 | XR_ITS ---
CHEST RADIOGRAPH CLINICAL HISTORY: intubation . COMPARISON: 02/11/2024 TECHNIQUE: Single portable view of the chest. FINDINGS Endotracheal tube identified with its tip projecting approximately 4.5 cm above the base of the judd a. Orogastric tube extends off the submitted image. Patchy groundglass opacifications within the bilateral lung domínguez. The remainder of the cardiomediastinal silhouette is otherwise unremarkable. IMPRESSION: Endotracheal tube in good radiographic position, as detailed above. Reviewed, dictated and finalized at location A. ER MACHINE OPERATOR
--- NOTE | ~2024-02-28 | XR_ITS ---
Portable chest x-ray Comparison: 02/29/2024 Clinical History: Septic shock, respiratory failure Findings: Endotracheal tube and NG tube are in satisfactory positions. Small right pleural effusion present. Extensive hazy pulmonary disease present. Cardiomediastinal silhouette is stable. Bones and soft tissues are unremarkable. Impression: Extensive hazy pulmonary disease. Correlate for advanced pulmonary edema versus ARDS or pneumonia. Small right pleural effusion. Support tubes, as above. Reviewed, dictated and finalized at [facility]. NED GLASS ARTIST Impression: Extensive hazy pulmonary disease. Correlate for advanced pulmonary edema versus ARDS or pneumonia. Small right pleural effusion. Support tubes, as above.
--- NOTE | ~2024-02-28 | CT_ITS ---
History: Septic shock PROCEDURE: CT head without contrast. COMPARISON: 02/08/2024 TECHNIQUE: Axial imaging of the head performed from the skull base to the vertex without IV contrast. Sagittal a nd coronal reformations obtained. DLP: 1589 mGy-cm FINDINGS: The ventricles are dilated, unchanged. The dilatation of the ventricles is proportional to the degree of sulcal prominence, not uncommon in the senescent brain. Decreased attenuation is identified within the periventricular white matter, likely secondary to micr ovascular ischemic disease. There is no mass, mass effect or midline shift. There is no abnormal extra-axial fluid collection or intracranial hemorrhage. Visualized paranasal sinuses are clear. The mastoid air cells are well aerated. No acute displaced fractures within the overlying cranium. Impression: No acute intracranial hemorrhage or suspicious mass effect. Reviewed, dictated and finalized at location A. NESS PROCESS EXPERT Impression: No acute intracranial hemorrhage or suspicious mass effect.
--- NOTE | ~2024-02-28 | CT_ITS ---
CLINICAL INDICATION: Septic shock COMPARISON: 02/14/2024. TECHNIQUE: An unenhanced CT of the abdomen and pelvis was performed utilizing multislice spiral techn ique reconstructed at 5 mm slice thickness. Coronal and sagittal reconstructions were performed. Th is CT examination was performed utilizing dose reduction techniques. DLP: 1980 mGy-cm FINDINGS/OBSERVATIONS: Lung: Large right and moderate left-sided pleural effusion with adjacent compressive atelectasis. Pulmonary vascular congestion is also noted. The heart is enlarged, without pericardial effusion. Mediastinum: Multiple pathologically enlarged and morphologically suspicious lymph nodes are identified within the right paratracheal lymph node station and within the subcarinal space. No pathologically enlarged or morphologically suspicious lymph nodes within the bilateral axilla or aorticopulmonary window. Soft tissues of the chest: Unremarkable. Bones of the chest: No acute fracture. No lytic or blastic lesions are identified. Liver: The liver is homogeneous in attenuation and is not enlarged measuring 18 cm in longitudinal dimension . Gallbladder and biliary system: Layering stones within the gallbladder with surrounding inflammatory change. Pancreas: Fatty atrophy of the pancreas with peripancreatic inflammatory change Spleen: The spleen is unremarkable in attenuation and size Kidneys: Bilateral double-J stents are present extending into the patient's bladder which is decompressed with Coats catheter, limiting its evaluation. No hydronephrosis is present. Bulky calcifications within the right kidney. No hydronephrosis. Adrenal glands: Unremarkable. Gastrointestinal tract: Fecal stasis distends the rectum and distal large bowel. Appendix: The appendix is not definitively visualized. However, no pericecal inflammatory change is identified suggest the presence of acute appendicitis. Vasculature: No calcified atherosclerotic disease is present. No aneurysmal dilatation. Lymph nodes: Scattered nonpathologically enlarged lymph nodes within the root of the mesentery and deep in the pel vis. Pelvic structures: The bladder is minimally distended and otherwise unremarkable. Body wall and musculoskeletal: Straightening of the lordotic curvature of the lumbar spine is appreciated. IMPRESSION: Fecal stasis distending the rectum and distal large bowel consistent with fecal impaction. Bilateral double-J stents without hydronephrosis. Large right and moderate left-sided pleural effusions. Inflammatory change surrounding the gallbladder and pancreas, consistent with possible pancreatitis a nd cholecystitis. Reviewed, dictated and finalized at location A. S [employer] IMPRESSION: Fecal stasis distending the rectum and distal large bowel consistent with fecal impaction. Bilateral double-J stents without hydronephrosis. Large right and moderate left-sided pleural effusions. Inflammatory change surrounding the gallbladder and pancreas, consistent with p ossible pancreatitis and cholecystitis.
--- NOTE | ~2024-02-28 | XR_ITS ---
EXAMINATION: XR chest 1V portable DATE: 03/02/2024 06:23 INDICATION: Septic shock TECHNIQUE: frontal view of the chest was obtained. COMPARISON: Chest radiograph dated 03/01/2024 FINDINGS: Endotracheal tube tip 2.9 cm above the rhonda. Nasogastric tube extends below the left hemidiaphragm with distal tip collimated off the study. Persistent gradient of basilar predominant hazy airspace opacities throughout the right lung consiste nt with likely small to moderate-sized right pleural effusion and associated atelectasis and/or pneum onia. Focal airspace opacity left lower lung zone which originally represent atelectasis or pneumonia . No pneumothorax or left-sided pleural effusion. Cardiomegaly with pulmonary vascular congestion and possible mild pulmonary edema. IMPRESSION: 1. Likely posterior layering small to moderate-sized right pleural effusion. 2. More dense airspace opacities in the bilateral lower lung zones which could represent atelectasis or pneumonia. 3. Cardiomegaly pulmonary vascular congestion and possible mild pulmonary edema. Reviewed, dictated and finalized at location A. S [employer] IMPRESSION: 1. Likely posterior layering small to moderate-sized right pleural effusion. 2. More dense airspace opacities in the bilateral lower lung zones which could represent atelectasis or pneumonia. 3. Cardiomegaly pulmonary vascular congestion and possible mild pulmonary edema .
--- NOTE | 2024-02-28 13:21 | ECG_ITS ---
Test Date: 2024-02-28 13:22:48 Measurements Intervals [place] Rate: 33 P: 0 GA: 0 QRS: 64 QRSD: 120 T: 35 QT: 575 QTc: 427 Interpretive Statements UNDETERMINED UNDERLYING RHYTHM WITH MARKED BRADYCARDIA. MODERATE INTRAVENTRICULAR CONDUCTION DELAY [105+ ms QRS DURATION, 80+ ms Q/S IN V1/V2, NO Q AND 60+ ms R IN I/aVL/V5/V6] MODERATE T-WAVE ABNORMALITY, CONSIDER ANTERIOR ISCHEMIA [-0.1+ mV T WAVE IN V3/V4] ABNORMAL ECG Electronically Signed On 02-28-2024 13:52:51 DIE STORAGE CLERK by Syd Rivas M.D.
[2024-02-28] MEDS: ATROPINE SULFATE 0.4 MG/ML VIAL 0.5 MG IV PUSH ×2 (13:25→13:55)
[2024-02-28] MEDS: SODIUM CHLORIDE 0.9% IV 1,000 ML 999 ML IV CONT ×3 (13:25→13:35)
[2024-02-28] MEDS: SODIUM BICARBONATE 8.4% 50 MEQ/50 ML SYRINGE IV PUSH (13:30)
[2024-02-28 13:34] LABS: Basophils Percent Auto 0.9 % (0.2-1.2); Eosinophils Absolute Auto 0.2 K/mm3 (0-0.3); Hematocrit 27.3 % (42.0-52.0); Hemoglobin 8.4 g/dL (14.0-18.0); Lymphocytes Absolute Auto 0.48 K/mm3 (0.9-3.2); Lymphocytes Percent Auto 20.9 % (18.3-44.2); Mean Corpuscular HGB Conc 30.8 g/dl (32-36); Mean Corpuscular Hemoglobin 24.9 pg (26-34); Mean Corpuscular Volume 80.8 fl (80-100); Mean Platelet Volume 9.5 fl (7.4-10.4); Monocytes Absolute Auto 0.4 K/mm3 (0.1-0.6); Neutrophils Absolute Auto 1.3 K/mm3 (1.3-6.7); Neutrophils Percent Auto 54.2 % (45.5-73.1); Platelet Count Result 284 k/mm3 (150-375); Red Blood Count 3.38 M/mm3 (4.6-6.20); Red Cell Distribution Width 19.1 % (11.5-14.5); White Blood Count 2.3 K/mm3 (4.5-10.0)
[2024-02-28] MEDS: NOREPINEPHRINE 8 MG/D5W 250 ML 8 MG/250 ML BAG 15 MG IV CONT (13:43)
[2024-02-28 13:45] LABS: Alanine Aminotransferase 11 U/L (6-50); Albumin Level 2.8 g/dL (3.5-5.1); Alkaline Phosphatase 98 U/L (38-126); Anion Gap 2 mmol/L (4-12); Aspartate Amino Transferase 15 U/L (17-59); Bilirubin,Total 0.3 mg/dL (0.2-1.3); Blood Urea Nitrogen 45 mg/dL (9-20); Calcium 9.7 mg/dL (8.4-10.2); Carbon Dioxide 22 mmol/L (22-30); Chloride 110 mmol/L (98-107); Estimated Glomerular Filt Rate 47; Glucose 133 mg/dL (65-110); Potassium 5.3 mmol/L (3.4-5.0); Sodium 134 mmol/L (137-145)
[2024-02-28] MEDS: CEFEPIME 2 GM/NS 50 ML 2 GM/50 ML BAG IVPB (13:48)
[2024-02-28 14:07] LABS: Bacteria Urine 4+ /hpf; Need Manual Microscopic Reviewed; RBC Urine >100 /hpf (0-2); Squamous Epithelial Cell Urine Moderate /hpf (Few); WBC Urine >100 /hpf (0-3)
--- NOTE | 2024-02-28 14:09 | ECG_ITS ---
Test Date: 2024-02-28 14:09:40 Measurements Intervals [place] Rate: 63 P: 0 VA: 0 QRS: -58 QRSD: 202 T: 118 QT: 614 QTc: 633 Interpretive Statements ATRIAL FIBRILLATION RIGHT BUNDLE BRANCH BLOCK [120+ ms QRS DURATION, UPRIGHT V1, 40+ ms S IN I/aVL/V4/V5/V6] INFERIOR MYOCARDIAL INFARCTION , POSSIBLY ACUTE [40+ ms Q WAVE AND/OR ST/T ABNORMALITY IN II/aVF] ACUTE VT Electronically Signed On 02-29-2024 18:27:59 SCIENTIFIC DIRECTOR by Nelida Matson M.D.
[2024-02-28 14:13] LABS: Add Urine Microscopic? YES; Appearance Urine Turbid (Clear); Bilirubin Urine Negative (Negative); Blood Urine 3+ (Negative); Glucose Urine UA Negative (Negative); Ketones Urine Negative (Negative); Leukocyte Esterase Ur 3+ LEU/UL (Negative); Nitrate Urine Negative (Negative); Protein Urine 3+ mg/dL (Negative); Specific Grav Ur 1.014 (1.001-1.035); Urobilinogen Urine 0.2 mg/dL (<2.0)
[2024-02-28 14:17] LABS: Color Urine Light Yellow (Yellow)
[2024-02-28 14:34] LABS: Lipase 269 U/L (23-300); Magnesium 2.4 mg/dL (1.6-2.3); Phosphorus 5.1 mg/dL (2.5-4.5)
[2024-02-28 14:35] LABS: Alveolar/Arterial O2 Gradient 580.9 mmHg; Base Excess ABG -4.7 mEq/l (+/-2.0); Fractional Inspired Oxygen 100 %; Oxygen Content ABG 10.3 %vol (16.0-22.0); Oxygen Saturation ABG 94.6 % (95.0-100.0); Oxyhemoglobin 92.3 % THb (90.0-100.0); PCO2 ABG 49.5 mmHg (35.0-45.0); PO2 ABG 82.6 mmHg (80.0-100.0); PO2 FiO2 Ratio Arterial Blood 0.83 %
[2024-02-28 14:38] LABS: Lactic Acid Reflex 1.3 mmol/L (0.7-2.0)
[2024-02-28] MEDS: metroNIDAZOLE 500 MG/ISO 100ML 500 MG/100 ML BAG 100 MG IVPB (14:44)
[2024-02-28 14:46] LABS: Troponin I < 0.012 ng/mL (0.000-0.034)
--- NOTE | 2024-02-28 14:46 | PC.NURSE ---
Pt occasionally snoring and having periods of irregular respirations. GCS 9. MD Esteban made aware. ABG resulted. RT at bedside placing pt on bipap per MD orders.
[2024-02-28 14:53] LABS: pH ABG 7.266 (7.350-7.450)
[2024-02-28 14:54] LABS: Device NON-REBREATHER MASK; Site Drawn RIGHT RADIAL; Total Hemoglobin 7.8 g/dL (12.0-18.0)
[2024-02-28 15:18] LABS: Influenza A QL RT-PCR Negative (Negative); Influenza B QL RT-PCR Negative (Negative); RSV RNA, RT-PCR Negative (Negative); SARS-CoV-2 RNA PCR Negative (Negative)
--- NOTE | 2024-02-28 15:34 | ED_ITS ---
HPI - General Adult General Chief complaint: Altered Mental Status Stated complaint: AMS Time Seen by Provider: 02/28/24 13:23 History of Present Illness HPI narrative: this is a 68-year-old male presenting ED for altered mental status. patient with recent discharge from hospital on 02/14 after an ICU admission for sepsis due to urinary tract infection. [facility] until yesterday when he became altered. He was then brought to the hospital for evaluation. On arrival here he is alert to voice. He is hypertensive in ill- appearing. He cannot provide any useful information. Related Data Home Medications ?Medication ?Instructions ?Recorded ?Confirmed ?Last Taken ?Type ipratropium 0.5 mg-albuterol 3 mg 3 ml inhalation Q4H PRN Wheezing 02/15/21 02/08/24 Unknown History (2.5 mg base)/3 mL nebulization soln levothyroxine 100 mcg tablet 100 mcg PO DAILY 02/15/21 02/08/24 Unknown History pravastatin 40 mg tablet 40 mg PO HS 12/08/21 02/08/24 Unknown History multivitamin with minerals-folic 1 tablet PO DAILY 03/02/22 02/08/24 Unknown History acid 0.4 mg tablet acetaminophen 325 mg capsule 650 mg PO Q4-6H PRN Pain (Scale 09/10/22 02/08/24 Unknown History (Tylenol) Score 1-3) sennosides 8.6 mg-docusate sodium 1 tablet PO BID 09/10/22 02/08/24 Unknown History 50 mg tablet (Senna Plus) melatonin 5 mg tablet 5 mg PO HS 03/10/23 02/08/24 Unknown History insulin NPH-regular 70-30 U-100 25 unit subcut QAM 08/07/23 02/08/24 Unknown History insulin 100 unit/mL subcutaneous pen (Novolin 70-30 FlexPen U-100 Insulin) magnesium oxide 400 mg (241.3 mg 400 mg PO DAILY 08/07/23 02/08/24 Unknown History magnesium) tablet nystatin 100,000 unit/gram topical 1 applic topical BID 11/30/23 02/08/24 Unknown History cream brexpiprazole 0.5 mg tablet 0.5 mg PO DAILY 02/08/24 02/08/24 Unknown History (Rexulti) gabapentin 100 mg capsule 300 mg PO TID 02/08/24 02/08/24 Unknown History lisinopril 10 mg tablet 10 mg PO DAILY 02/08/24 02/08/24 Unknown History trazodone 50 mg tablet 75 mg PO HS 02/08/24 02/08/24 Unknown History Allergies Allergy/AdvReac Type Severity Reaction Status Date / Time No Known Allergies Allergy Verified 12/22/23 12:21 [facility] Past Medical History Medical History E coli bacteremia Chronic hyponatremia Chronic indwelling Coats catheter Chronic osteomyelitis of left foot Diastolic congestive heart failure Chronic obstructive pulmonary disease Gastroesophageal reflux disease Hypothyroidism Obstructive sleep apnea Non-compliant with CPAP. Paroxysmal atrial fibrillation Choledocholithiasis (05/2022) Kidney stones Peripheral neuropathy Depression Chronic venous insufficiency Morbid obesity Hyperlipidemia Hypertension Insulin dependent diabetes mellitus Surgical History Surgical History History of abdominal surgery The patient has a large scar in the right lower abdomen just above the right groin and on palpation of his abdomen he has what feels like mesh that extends from side to side and has a course rough texture it also extends from just under the umbilicus to a couple of inches above the pubis History of tonsillectomy and adenoidectomy History of hemorrhoidectomy History of cataract extraction History of back surgery History of appendectomy Family History Family History Sibling Family history of heart disease in male family member before age 55 Family history of diabetes mellitus in first degree relative Patient's brother is Family history of obesity Hypertension Mother Family history of arthritis Patient's mother is Father Patient's father is Social History Social History Social History: Surrogate medical decision maker: Marlys Marrero, . Code status: Full code. Smoking packs per day: 1.5 Smoking cigarettes per day: 30.0 Years smoked: 15 Smoking pack-years: 22.50 Smoking status: Former smoker Second hand tobacco smoke exposure: Yes Alcohol intake: never Substance use: never Substance use type: does not use Lack of Transportation: No Lack of Food: Never True Current Housing: I Have Housing Concerned About Future Housing: No Difficulty Paying Gas/Electric Bills: No Difficulty Paying for Meds: No Currently Unemployed: No Education: High School Diploma/GED Difficulty w/ Childcare or Family Care: No Living arrangements: [facility] Additional living arrangements comments: Resident at [facility]. to Marlys. They have 2 sons. He is nonambulatory and depends on a [place] lift for transfer. 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 Spiritual care concerns: No Agree to blood products: Yes Exam 2 Narrative: APPEARANCE: patient is toxic. alert to voice Head: atraumatic. EYES: EOMI, NOSE: Atraumatic NECK: Trachea midline RESPIRATORY: tachypneic, 90% on room air CARDIOVASCULAR: bradycardic, no peripheral edema ABDOMINAL: obese, nontender MUSCULOSKELETAl: No obvious deformities NEURO: Alert. Moving 4/4 extremities SKIN:: cool clammy pale PSYCHIATRIC: alert to voice Course Vital Signs Vital signs: Vital Signs Pulse Rate 46 L 02/28/24 13:13 Respiratory Rate 15 02/28/24 13:13 Blood Pressure 89/39 L 02/28/24 13:13 Pulse Oximetry 92 02/28/24 13:13 Oxygen Delivery Room Air 02/28/24 13:13 Temperature 86.5 F L 02/28/24 14:29 Pulse Rate 50 L 02/28/24 15:50 Respiratory Rate 16 02/28/24 15:50 Blood Pressure 82/50 L 02/28/24 15:21 Pulse Oximetry 99 02/28/24 16:57 Oxygen Delivery BiPAP 02/28/24 16:57 Procedures Central Line Placement Right Femoral: Central Line Date: 02/28/24 Discussed w/ the patient/family/POA,the placement of a central venous catheter, including its clinical necessity/indication & associated potential risks, benifits and alternatives.: Yes The patient/family/POA understand(s) and acknowledge(s) the need to proceed with central venous catheter insertion as an important element of the patient's clinical management.: Yes Time Out Performed: Yes Patient Placed on Monitor/Pulse Ox: Yes Max. Sterile Barrier Technique: Caps, large sterile sheet and hand hygiene Central Line Prep: 2% chlorhexidine scrub and sterile drapes applied Emergently Placed, Full Sterile: prep not done Technique: sterile prep/drape Local Anesthetic: lidocaine 1% Amount of anesthesia used (mL): 5 Ultrasound Used for Placement: Yes Central Line Lumen Inserted: single and triple Post Procedure: sutured in place Patient Tolerated Procedure: well Complications: none Intubation Intubation #1: Intubation Date: 02/28/24 Time out performed: Yes sedative: Etomidate Mg Given: 20 paralytic: Rocuronium Mg Given: 100 Laryngoscope: fiber optic video scope Tube Size (cm): 7.5 Method of Intubation: orotracheal Number of Attempts: 1 Tube Secured Depth (cm): 24 Tube Secured Location: lips Tube Placement Confirmation: visualized tube passing through cords, equal breath sounds bilaterally, no breath sounds over epigastrium and confirmation by capnometry Patient Tolerated Procedure: well Intubation Complications: none Medical Decision Making MDM Narrative Medical decision making narrative: -Course: 68-year-old male recent history of pseudomonal urosepsis presenting for altered mental status. On arrival patient was hypotensive/bradycardic/hypothermic. Patient given 30 cc/kilogram bolus of ideal body weight. Started on broad-spectrum antibiotics including cefepime Flagyl and vancomycin. Placed a under a Edmar Hugger for active rewarming. [place] catheter was replaced and when it was removed emiliano purulence drained from the urethra. Central line was placed the patient was started on Levophed and initially his blood pressures improved. In regards to the patient's bradycardia he had atrial fibrillation slow ventricular response and a widened QRS. Given atropine pushes which improved his heart rate to the 70s however had no effect on his blood pressure or his mental status. Originally bradycardia was attributed to his profound hypothermia. Despite rewarming his heart rate did not improve. We attempted transcutaneous pacing however the patient would not tolerate it due to pain/agitation. Patient given small dose of fentanyl and Versed for comfort, however his already poor mental status was not appropriate for BiPAP at that time. Patient was then intubated for airway protection. Throughout this process the patient's blood pressure continued to trend downwards. Patient placed on vasopressin and given a stress dose of hydrocortisone. Case was discussed with Int-cardiologys Dr. Matson for possible pacemaker placement. He recommended medical management in a septic/hypothermic patient. He recommended dopamine infusion which has improved the patient's heart rate and blood pressures. Urology-Dr. Lewis was consulted due to the patient's recurrent urosepsis/stents. At this time no intervention and to continue w/ sepsis treatment. They will consult on the case. Patient stabilized. family updated. Patient will be admitted the ICU for further management. -Independent interpretation of studies: white count 2.3. Hemoglobin 8.4. Lactate 1.3. Patient has JHONY w/ BUN 45/1.50. Potassium 5.3. Urine indicative of infection. Review of previous culture showed pansensitive Pseudomonas. Viral swabs negative. Imaging reviewed -Discussion of Management/Consultants:Debbie Brewer Farah, Katie -Shared decision making / Disposition:admitted. Vital Signs Vital Signs: Vital Signs Pulse Rate 46 L 02/28/24 13:13 Respiratory Rate 15 02/28/24 13:13 Blood Pressure 89/39 L 02/28/24 13:13 Pulse Oximetry 92 02/28/24 13:13 Oxygen Delivery Room Air 02/28/24 13:13 Temperature 86.5 F L 02/28/24 14:29 Pulse Rate 50 L 02/28/24 15:50 Respiratory Rate 16 02/28/24 15:50 Blood Pressure 82/50 L 02/28/24 15:21 Pulse Oximetry 99 02/28/24 16:57 Oxygen Delivery BiPAP 02/28/24 16:57 Lab Data 02/28/24 13:28 02/28/24 13:28 Labs: Lab Results 02/28/24 02/28/24 02/28/24 Range/Units 13:28 13:44 14:00 WBC 2.3 L (4.5-10.0) K/mm3 RBC 3.38 L (4.6-6.20) M/mm3 Hgb 8.4 L (14.0-18.0) g/dL Hct 27.3 L (42.0-52.0) % MCV 80.8 (80-100) fl MCH 24.9 L (26-34) pg MCHC 30.8 L (32-36) g/dl RDW 19.1 H (11.5-14.5) % Plt Count 284 (150-375) k/mm3 MPV 9.5 (7.4-10.4) fl Immature Gran % (Auto) 0.0 (0-0.5) % Neut % (Auto) 54.2 (45.5-73.1) % Lymph % (Auto) 20.9 (18.3-44.2) % [place] % (Auto) 17.0 H (2.6-8.5) % Eos % (Auto) 7.0 H (0-4.4) % Baso % (Auto) 0.9 (0.2-1.2) % Lymph # (Auto) 0.48 L (0.9-3.2) K/mm3 [place] # (Auto) 0.4 (0.1-0.6) K/mm3 Eos # (Auto) 0.2 (0-0.3) K/mm3 Baso # (Auto) 0.0 (0.0-0.1) K/mm3 Abs Immat Gran (auto) 0.00 (0.00-0.031) K/mm3 Absolute Neuts (auto) 1.3 (1.3-6.7) K/mm3 Absolute Nucleated RBC 0.000 (0.0-0.012) K/mm3 Nucleated RBC % 0.0 (0.0-0.2) % PT Pending INR Pending APTT Pending Sodium 134 L (137-145) mmol/L Potassium 5.3 H (3.4-5.0) mmol/L Chloride 110 H (98-107) mmol/L Carbon Dioxide 22 (22-30) mmol/L Anion Gap 2 L (4-12) mmol/L BUN 45 H D (9-20) mg/dL Creatinine 1.50 H (0.7-1.3) mg/dL Estim Creat Clear Calc Not Reportable Estimated GFR 47 L (59 - ) Glucose 133 H (65-110) mg/dL Lactic Acid 1.3 (0.7-2.0) mmol/L Calcium 9.7 (8.4-10.2) mg/dL Phosphorus 5.1 H (2.5-4.5) mg/dL Magnesium 2.4 H (1.6-2.3) mg/dL Total Bilirubin 0.3 (0.2-1.3) mg/dL AST 15 L (17-59) U/L ALT 11 (6-50) U/L Alkaline Phosphatase 98 (38-126) U/L Troponin I < 0.012 (0.000-0.034) ng/mL Total Protein 8.0 (6.3-8.2) g/dL Albumin 2.8 L (3.5-5.1) g/dL Lipase 269 (23-300) U/L Urine Color Light yellow (Yellow) Urine Appearance Turbid H (Clear) Urine pH 8.0 (5.0-9.0) Ur Specific [place] 1.014 (1.001-1.035) Urine Protein 3+ H (Negative) mg/dL Urine Glucose (UA) Negative (Negative) mg/dL Urine Ketones Negative (Negative) mg/dL Ur Blood (Man) 3+ H (Negative) Urine Nitrate Negative (Negative) Urine Bilirubin Negative (Negative) Urine Urobilinogen 0.2 (<2.0) mg/dL Add Ur Microanalysis Reviewed Leukocyte Esterase Rfl 3+ H (Negative) RAZ/UL Urine RBC >100 H (0-2) /hpf Urine WBC >100 H (0-3) /hpf Ur Squamous Epith Cells Moderate (Few) /hpf Urine Bacteria 4+ H /hpf Urine Casts 11-20 Influenza A (RT-PCR) (Negative) Influenza B (RT-PCR) (Negative) RSV (RT-PCR) (Negative) SARS-CoV-2 RNA (RT-PCR) (Negative) 02/28/24 Range/Units 14:32 WBC (4.5-10.0) K/mm3 RBC (4.6-6.20) M/mm3 Hgb (14.0-18.0) g/dL Hct (42.0-52.0) % MCV (80-100) fl MCH (26-34) pg MCHC (32-36) g/dl RDW (11.5-14.5) % Plt Count (150-375) k/mm3 MPV (7.4-10.4) fl Immature Gran % (Auto) (0-0.5) % Neut % (Auto) (45.5-73.1) % Lymph % (Auto) (18.3-44.2) % [place] % (Auto) (2.6-8.5) % Eos % (Auto) (0-4.4) % Baso % (Auto) (0.2-1.2) % Lymph # (Auto) (0.9-3.2) K/mm3 [place] # (Auto) (0.1-0.6) K/mm3 Eos # (Auto) (0-0.3) K/mm3 Baso # (Auto) (0.0-0.1) K/mm3 Abs Immat Gran (auto) (0.00-0.031) K/mm3 Absolute Neuts (auto) (1.3-6.7) K/mm3 Absolute Nucleated RBC (0.0-0.012) K/mm3 Nucleated RBC % (0.0-0.2) % PT INR APTT Sodium (137-145) mmol/L Potassium (3.4-5.0) mmol/L Chloride (98-107) mmol/L Carbon Dioxide (22-30) mmol/L Anion Gap (4-12) mmol/L BUN (9-20) mg/dL Creatinine (0.7-1.3) mg/dL Estim Creat Clear Calc Estimated GFR (59 - ) Glucose (65-110) mg/dL Lactic Acid (0.7-2.0) mmol/L Calcium (8.4-10.2) mg/dL Phosphorus (2.5-4.5) mg/dL Magnesium (1.6-2.3) mg/dL Total Bilirubin (0.2-1.3) mg/dL AST (17-59) U/L ALT (6-50) U/L Alkaline Phosphatase (38-126) U/L Troponin I (0.000-0.034) ng/mL Total Protein (6.3-8.2) g/dL Albumin (3.5-5.1) g/dL Lipase (23-300) U/L Urine Color (Yellow) Urine Appearance (Clear) Urine pH (5.0-9.0) Ur Specific [place] (1.001-1.035) Urine Protein (Negative) mg/dL Urine Glucose (UA) (Negative) mg/dL Urine Ketones (Negative) mg/dL Ur Blood (Man) (Negative) Urine Nitrate (Negative) Urine Bilirubin (Negative) Urine Urobilinogen (<2.0) mg/dL Add Ur Microanalysis Leukocyte Esterase Rfl (Negative) RAZ/UL Urine RBC (0-2) /hpf Urine WBC (0-3) /hpf Ur Squamous Epith Cells (Few) /hpf Urine Bacteria /hpf Urine Casts Influenza A (RT-PCR) Negative (Negative) Influenza B (RT-PCR) Negative (Negative) RSV (RT-PCR) Negative (Negative) SARS-CoV-2 RNA (RT-PCR) Negative (Negative) ABG Data ABG results: 02/28/24 14:24 Puncture Site Right radial ABG pH 7.266 L* ABG pCO2 49.5 H ABG pO2 82.6 ABG PO2/FiO2 Ratio 0.83 ABG HCO3 22.0 ABG O2 Saturation 94.6 L ABG O2 Content 10.3 L ABG Base Excess -4.7 A-a Gradient 580.9 Oxyhemoglobin 92.3 Total Hemoglobin 7.8 L* O2 Delivery Device Non-rebreather mask O2 Liters/Min 15.0 FiO2 100 Critical Care Time Critical Care Time Critical Care Time: Yes Total Critical Care Time: 120 Discharge Plan Discharge Clinical Impression: Septic shock, Acute UTI, Bradycardia, Hypothermia, Respiratory failure Altered mental status Qualifiers: Altered mental status type: delirium Qualified Code(s): R41.0 - Disorientation, unspecified Patient Language: Kittitian Prescriptions: No Action Eliquis 5 mg Tablet 5 mg PO Q12HR Qty: 60 0RF sennosides-docusate sodium [Senna Plus] 8.6-50 mg Tablet 1 tablet PO BID acetaminophen [Tylenol] 325 mg Capsule 650 mg PO Q4-6H PRN (Reason: Pain (Scale Score 1-3)) melatonin 5 mg Tablet 5 mg PO HS polyethylene glycol 3350 [Miralax] 17 gram Powder In Packet 17 g PO BID Qty: 30 0RF magnesium oxide 400 mg (241.3 mg magnesium) tablet 400 mg PO DAILY Novolin 70-30 FlexPen U-100 100 unit/mL (70-30) insulin pen 25 unit SUBCUT QAM metoprolol succinate [Toprol XL] 25 mg Tablet Extended Release 24 Hr 75 mg PO QAM Qty: 90 0RF nystatin 100,000 unit/gram Cream 1 applic TOPICAL BID Rx Instructions: APPLY TO BILAT BUTTOCKS, SACRUM, POSTERIOR THIGH lisinopril 10 mg tablet 10 mg PO DAILY Rexulti 0.5 mg Tablet 0.5 mg PO DAILY gabapentin 100 mg capsule 300 mg PO TID trazodone 50 mg Tablet 75 mg PO HS levofloxacin 750 mg tablet 750 mg PO DAILY 8 Days Qty: 8 0RF levothyroxine 100 mcg tablet 100 mcg PO DAILY ipratropium-albuterol 0.5 mg-3 mg(2.5 mg base)/3 mL Solution For Nebulization 3 ml INHALATION Q4H PRN (Reason: Wheezing) pravastatin 40 mg Tablet 40 mg PO HS multivit with min-folic acid 0.4 mg Tablet 1 tablet PO DAILY bupropion HCl 150 mg Tablet Extended Release 24 Hr 150 mg PO QAM Qty: 30 0RF amlodipine [Norvasc] 5 mg Tablet 5 mg PO DAILY Qty: 30 0RF pantoprazole [Protonix] 40 mg tablet,delayed release (DR/EC) 40 mg PO QAM Qty: 30 0RF famotidine 20 mg tablet 20 mg PO QHS Qty: 30 0RF valsartan 40 mg tablet 40 mg PO DAILY Qty: 30 0RF Novolin 70-30 FlexPen U-100 100 unit/mL (70-30) insulin pen 15 unit SUBCUT 1700 Qty: 15 0RF Minerin Creme Cream 1 applic topical DAILY Qty: 113 0RF Rx Instructions: Bilateral lower extremity intact skin Follow-up/Referrals: Lawrence,MD Asael [Primary Care Provider] -
[2024-02-28] MEDS: LACTATED RINGERS 1,000 ML 150 ML IV CONT (16:02)
[2024-02-28] MEDS: VANCOMYCIN 1,250 MG/NS 250 ML 1,250 MG/250 ML BAG 166.67 MG IVPB ×2 (16:14→18:30)
--- NOTE | 2024-02-28 16:29 | PC.NURSE ---
Pt returned from CT with two RN's and RT. Awaiting results. Vancomycin, LR, norepi infusing per APR. Pt has received 3L NS total via pressure bag. Pt also received bicarb and atropine from crash cart. First set of blood cultures obtained prior to antibiotics, due to patient being unstable and critical, MD Esteban wanted to start antibiotics right away. Chronic [place] was exchanged to temp-sensing [place] shortly after arrival for accurate temperature monitoring. Pt remains hypothermic with Edmar Hugger on high and additional warm blankets on top. Delayed application of Edmar Hugger due to critical hypotension and need for vasopressors to keep BP sustained, then central line placement to left femoral immediately following. Pt slightly more alert now, pt did try to roll slightly to his side. at bedside. Pt remains on bipap.
[2024-02-28 17:34] LABS: INR 2.5; Prothrombin Time 27.1 Seconds (11.1-14.7)
[2024-02-28 17:36] LABS: Partial Thromboplastin Time 86.2 Seconds (22.3-36.8)
[2024-02-28 17:44] LABS: Troponin I < 0.012 ng/mL (0.000-0.034)
[2024-02-28] MEDS: MIDAZOLAM HCL (*CRX) 2 MG/2 ML VIAL (17:44)
[2024-02-28] MEDS: fentaNYL CITRATE INJ (*CRX) 100 MCG/2 ML VIAL (17:44)
--- NOTE | 2024-02-28 17:50 | PC.NURSE ---
RN and MD Esteban at bedside, attempted transcutaneous pacing, pt medicated per APR. Pacing ineffective with increasing pulse rate, and patient did not tolerate increasing current. Per MD Esteban plan to add dopamine drip and plan for intubation for airway protection.
[2024-02-28] MEDS: DOPamine 400 MG/D5W 250 ML 400 MG/250 ML BAG 9.83 MG IV CONT (18:04)
[2024-02-28] MEDS: ETOMIDATE 20 MG/10 ML AMPUL IV PUSH (18:10)
[2024-02-28] MEDS: ROCURONIUM BROMIDE 50 MG/5 ML VIAL 100 MG IV PUSH (18:11)
[2024-02-28] MEDS: VASOPRESSIN INJ 100 UNITS in DEXTROSE 5% 95 ML IV CONT (18:11)
[2024-02-28] MEDS: HYDROmorphone HCL INJ (*CRX) 1 MG/ML SYR (18:16)
[2024-02-28] MEDS: LORazepam INJ (*CRX) 2 MG/ML VIAL (18:17)
--- NOTE | 2024-02-28 18:18 | PC.NURSE ---
Per MD Esteban, increase dopamine to 5 mcg/kg/min, plan to titrate norepinephrine down. See MAR.
[2024-02-28 18:41] LABS: MRSA (PCR) NOT DETECTED (NOT DETECTE)
[2024-02-28] MEDS: HYDROCORTISONE SODIUM SUCCINATE 100 MG/2 ML VIAL IV PUSH (18:50)
[2024-02-28] MEDS: MIDAZOLAM 100MG/NS 100ML(*CRX) 100 MG/100 ML BAG IV CONT (18:55)
[2024-02-28 18:56] LABS: Base Excess ABG -3.3 mEq/l (+/-2.0); Carboxyhemoglobin 0.9 % THb (0-2.0); Fractional Inspired Oxygen 50 %; HCO3 ABG 21.5 mEq/l (22.0-26.0); Methemoglobin ABG 0.3 %THb (0-1.5); Oxygen Content ABG 12.5 %vol (16.0-22.0); Oxygen Saturation ABG 96.8 % (95.0-100.0); Oxyhemoglobin 95.6 % THb (90.0-100.0); PCO2 ABG 37.5 mmHg (35.0-45.0); PO2 ABG 90.3 mmHg (80.0-100.0); PO2 FiO2 Ratio Arterial Blood 1.81 %; Reduced Hemoglobin 3.2 %THb (0-5.0); Total Hemoglobin 9.2 g/dL (12.0-18.0); pH ABG 7.376 (7.350-7.450)
[2024-02-28 18:57] LABS: Device VENTILATOR; Site Drawn LEFT RADIAL
[2024-02-28 18:58] LABS: Arterial Blood Gas PEEP 5 cmH2O; Arterial Blood Gas Tidal Volume 450 ml; Arterial Blood Gas Vent Mode CMV; Arterial Blood Gas Ventilator rate 20 /MIN
[2024-02-28] MEDS: FENTANYL 2,500MCG/NS250ML(*CRX 2,500 MCG/250 ML BAG 15 MCG IV CONT (19:05)
--- NOTE | 2024-02-28 19:12 | PC.NURSE ---
Per MD Esteban, turn off Vaso at this time as next titration. Vaso stopped at this time, see MAR.
--- NOTE | 2024-02-28 19:30 | P.HP_ITS ---
H&P: HPI History of Present Illness Date/Time: 02/28/24 19:30 Chief Complaint: Altered mental status. Narrative: This is a 68-year-old male with dementia, paroxysmal atrial fibrillation, diastolic congestive heart failure, insulin-dependent diabetes, hypothyroidism, hypertension, untreated obstructive sleep apnea, chronic venous stasis dermatitis, indwelling Coats catheter, kidney stones, chronic left heel wound with history of osteomyelitis of the left calcaneus with previous cultures growing out Pseudomonas and MRSA, and other comorbidities who presented to the emergency department via EMS from [facility] for evaluation of altered mental status. He is currently. He is currently sedated and intubated on mechanical ventilation and all the following is obtained via a review of his electronic medical records. The patient is well known to myself and the hospitalist service from multiple admissions over the course of the last year. Most recently he was discharged 02/15/2024 after an 8 day stay in which he was treated for septic shock due to Pseudomonas bacteremia. This morning staff at his facility thought he was more confused than baseline was reportedly staring off into space and emergency services were summoned. No other information was provided by the transferring facility. In the ED: Temperature was 85.8? F on arrival. He was hypotensive and bradycardic with a systolic blood pressure in the low 90s and heart rate of 43. Initial EKG showed marked bradycardia with a rate of 33, moderate intraventricular conduction delay, and moderate T-wave abnormalities. Labs were significant for WBC count of 2.3, RBC 3.38, hemoglobin 8.4, hematocrit 27.3%, platelets 284, INR 2.5, sodium 134, potassium 5.3, BUN 45, creatinine 1.50, lactic acid 1.3, troponin less than 0.012. Urinalysis was positive for 3+ protein, 3+ blood, 3+ leukocyte esterase, greater than 100 RBC and WBC, 4+ bacteria, 11 to 20 casts, and moderate squamous cells seen on microscopy. He tested negative for influenza, RSV, and COVID. Head CT showed no acute findings. CT of the chest, abdomen, and pelvis showed fecal stasis distending the rectum and distal large bowel consistent with impaction, bilateral double-J stents without hydronephrosis, large right and moderate left-sided pleural effusions, and inflammatory changes if the gallbladder and pancreas consistent with possible pancreatitis and cholecystitis. He was intubated, a central line was placed, and he was started on dopamine and norepinephrine. He also received cefepime, metronidazole, vancomycin, crystalloid bolus, and hydrocortisone. He is being admitted in this setting to the ICU. Review of Systems Review of Systems: Unable to obtain as he is currently sedated and intubated. [facility] Past Medical History Medical History (Updated 02/28/24 @ 23:28 by Malorie Jones PA-C) Bacteremia due to Pseudomonas (01/2024) E coli bacteremia Chronic hyponatremia Chronic indwelling Coats catheter Chronic osteomyelitis of left foot Diastolic congestive heart failure Chronic obstructive pulmonary disease Gastroesophageal reflux disease Hypothyroidism Obstructive sleep apnea Non-compliant with CPAP. Paroxysmal atrial fibrillation Choledocholithiasis (05/2022) Kidney stones Peripheral neuropathy Depression Chronic venous insufficiency Morbid obesity Hyperlipidemia Hypertension Insulin dependent diabetes mellitus Surgical History Surgical History History of abdominal surgery The patient has a large scar in the right lower abdomen just above the right groin and on palpation of his abdomen he has what feels like mesh that extends from side to side and has a course rough texture it also extends from just under the umbilicus to a couple of inches above the pubis History of tonsillectomy and adenoidectomy History of hemorrhoidectomy History of cataract extraction History of back surgery History of appendectomy Family History Family History Sibling Family history of heart disease in male family member before age 55 Family history of diabetes mellitus in first degree relative Patient's brother is Family history of obesity Hypertension Mother Family history of arthritis Patient's mother is Father Patient's father is Social History Social History Social History: Surrogate medical decision maker: Marlys Marrero, . Code status: Full code. Smoking packs per day: 1.5 Smoking cigarettes per day: 30.0 Years smoked: 15 Smoking pack-years: 22.50 Smoking status: Never smoker Second hand tobacco smoke exposure: Yes Alcohol intake: never Substance use: never Substance use type: does not use Lack of Transportation: No Lack of Food: Never True Current Housing: I Have Housing Concerned About Future Housing: No Difficulty Paying Gas/Electric Bills: No Difficulty Paying for Meds: No Currently Unemployed: No Education: High School Diploma/GED Difficulty w/ Childcare or Family Care: No Living arrangements: halfway Additional living arrangements comments: Resident at [facility]. to Marlys. They have 2 sons. He is nonambulatory and depends on a [place] lift for transfer. 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 Spiritual care concerns: No Agree to blood products: Yes Meds Home Medications and Allergies Home Medications ?Medication ?Instructions ?Recorded ?Confirmed ?Type ipratropium 0.5 mg-albuterol 3 mg 3 ml inhalation Q4H PRN Wheezing 02/15/21 02/29/24 History (2.5 mg base)/3 mL nebulization soln levothyroxine 100 mcg tablet 100 mcg PO DAILY 02/15/21 02/29/24 History pravastatin 40 mg tablet 40 mg PO HS 12/08/21 02/29/24 History multivitamin with minerals-folic 1 tablet PO DAILY 03/02/22 02/29/24 History acid 0.4 mg tablet apixaban 5 mg tablet (Eliquis) 5 mg PO Q12HR #60 tabs 07/01/22 02/29/24 Rx acetaminophen 325 mg capsule 650 mg PO Q4-6H PRN Pain (Scale 09/10/22 02/29/24 History (Tylenol) Score 1-3) sennosides 8.6 mg-docusate sodium 1 tablet PO BID 09/10/22 02/29/24 History 50 mg tablet (Senna Plus) melatonin 5 mg tablet 5 mg PO HS 03/10/23 02/29/24 History bupropion HCl 150 mg 24 hr tablet, 150 mg PO QAM #30 tabs 05/23/23 02/29/24 Rx extended release polyethylene glycol 3350 17 gram 17 g PO BID #30 ea 06/26/23 02/29/24 Rx oral powder packet (Miralax) insulin NPH-regular 70-30 U-100 25 unit subcut QAM 08/07/23 02/29/24 History insulin 100 unit/mL subcutaneous pen (Novolin 70-30 FlexPen U-100 Insulin) magnesium oxide 400 mg (241.3 mg 400 mg PO DAILY 08/07/23 02/29/24 History magnesium) tablet metoprolol succinate 25 mg 75 mg (3 x 25 mg) PO QAM #90 tabs 08/18/23 02/29/24 Rx tablet,extended release 24 hr (Toprol XL) nystatin 100,000 unit/gram topical 1 applic topical BID 11/30/23 02/29/24 History cream amlodipine 5 mg tablet (Norvasc) 5 mg PO DAILY #30 tabs 12/27/23 02/29/24 Rx famotidine 20 mg tablet 20 mg PO QHS #30 tabs 12/27/23 02/29/24 Rx insulin NPH-regular 70-30 U-100 15 unit (0.15 mL) subcut 1700 #15 12/27/23 02/29/24 Rx insulin 100 unit/mL subcutaneous mL pen (Novolin 70-30 FlexPen U-100 Insulin) lanolin alcohols-mineral 1 applic topical DAILY #113 grams 12/27/23 02/29/24 Rx oil-w.petrolatum-ceresin topical cream (Minerin Creme topical) pantoprazole 40 mg tablet,delayed 40 mg PO QAM #30 tabs 12/27/23 02/29/24 Rx release (Protonix) valsartan 40 mg tablet 40 mg PO DAILY #30 tabs 12/27/23 02/29/24 Rx brexpiprazole 0.5 mg tablet 0.5 mg PO DAILY 02/08/24 02/29/24 History (Rexulti) gabapentin 100 mg capsule 300 mg PO TID 02/08/24 02/29/24 History lisinopril 10 mg tablet 10 mg PO DAILY 02/08/24 02/29/24 History trazodone 50 mg tablet 75 mg PO HS 02/08/24 02/29/24 History Allergies Allergy/AdvReac Type Severity Reaction Status Date / Time No Known Allergies Allergy Verified 12/22/23 12:21 Vital Signs Vital Signs - 24 hr 02/28/24 13:13 02/28/24 13:40 02/28/24 13:43 Temperature 85.8 F L Pulse Rate 46 L 39 L Respiratory Rate 15 Blood Pressure 89/39 L 77/48 L Pulse Oximetry 92 Oxygen Delivery Room Air Fraction of Inspired Oxygen 02/28/24 14:03 02/28/24 14:05 02/28/24 14:14 Temperature 86.2 F L 86.2 F L Pulse Rate 43 L 52 L Respiratory Rate 14 Blood Pressure 81/44 L 95/61 L Pulse Oximetry 87 L Oxygen Delivery Fraction of Inspired Oxygen 02/28/24 14:15 02/28/24 14:17 02/28/24 14:17 Temperature 86.2 F L 86.3 F L 86.3 F L Pulse Rate 47 L 49 L Respiratory Rate 15 14 Blood Pressure 99/57 L Pulse Oximetry 73 L 92 Oxygen Delivery Fraction of Inspired Oxygen 02/28/24 14:22 02/28/24 14:25 02/28/24 14:29 Temperature 86.3 F L 86.4 F L 86.5 F L Pulse Rate 53 L 54 L 52 L Respiratory Rate 16 16 12 Blood Pressure 89/72 L 99/70 L 98/59 L Pulse Oximetry 99 100 97 Oxygen Delivery Fraction of Inspired Oxygen 02/28/24 14:40 02/28/24 15:14 02/28/24 15:16 Temperature 87.7 F L Pulse Rate 54 L 42 L 39 L Respiratory Rate 21 H 12 Blood Pressure 75/49 L 82/52 L Pulse Oximetry 100 100 Oxygen Delivery BiPAP Fraction of Inspired Oxygen 02/28/24 15:17 02/28/24 15:21 02/28/24 15:49 Temperature 87.8 F L 88.5 F L Pulse Rate 36 L Respiratory Rate 15 Blood Pressure 82/50 L Pulse Oximetry 97 Oxygen Delivery Fraction of Inspired Oxygen 02/28/24 15:50 02/28/24 16:51 02/28/24 16:52 Temperature 89.6 F L 89.7 F L Pulse Rate 50 L 40 L 40 L Respiratory Rate 16 17 16 Blood Pressure 92/54 L Pulse Oximetry 98 98 97 Oxygen Delivery BiPAP Fraction of Inspired Oxygen 02/28/24 16:56 02/28/24 16:57 02/28/24 17:02 Temperature 89.8 F L 89.9 F L Pulse Rate 38 L 39 L Respiratory Rate 12 12 Blood Pressure 88/51 L 85/45 L Pulse Oximetry 98 99 97 Oxygen Delivery BiPAP Fraction of Inspired Oxygen 02/28/24 17:03 02/28/24 17:04 02/28/24 17:26 Temperature 89.9 F L 90.0 F L Pulse Rate 40 L 42 L 31 L Respiratory Rate 12 12 Blood Pressure 87/46 L 75/49 L Pulse Oximetry 97 Oxygen Delivery Fraction of Inspired Oxygen 02/28/24 18:04 02/28/24 18:11 02/28/24 18:15 Temperature Pulse Rate 41 L 38 L 42 L Respiratory Rate Blood Pressure 82/48 L 79/53 L 114/58 L Pulse Oximetry Oxygen Delivery Fraction of Inspired Oxygen 02/28/24 18:17 02/28/24 18:25 02/28/24 18:34 Temperature Pulse Rate 49 L 55 L 61 Respiratory Rate Blood Pressure 110/56 L 135/68 Pulse Oximetry 100 Oxygen Delivery Mechanical Ventilation Fraction of Inspired Oxygen 60 02/28/24 18:36 02/28/24 18:41 02/28/24 18:55 Temperature Pulse Rate 66 71 Respiratory Rate 20 Blood Pressure 126/65 Pulse Oximetry Oxygen Delivery Fraction of Inspired Oxygen 50 02/28/24 19:05 02/28/24 19:11 Temperature Pulse Rate 76 80 Respiratory Rate 20 Blood Pressure 119/75 Pulse Oximetry Oxygen Delivery Fraction of Inspired Oxygen Exam Narrative: General:?Ill-appearing male sedated and intubated on mechanical ventilation. Weight: 136 kg. BMI: 41.2. HEENT:?Pupils are approximately 2 mm are sluggishly reactive. Sclera anicteric. Conjunctiva mildly injected. Tacky mucous membranes. Poor dental hygiene. Neck:??Supple. Exam limited due to neck circumference. No obvious JVD or lymphadenopathy. Respiratory:?Sedated and intubated on mechanical ventilation. Course, equally transmitted lung sounds heard anteriorly and at the flanks. Cardiovascular:?Irregularly irregular rate and rhythm. Gastrointestinal:??Abdomen is soft and morbidly obese. He is heavily sedated and does not withdrawal to noxious stimuli and exhibits no pain with palpation of the abdomen. Bowel sounds are present. Skin:?Warm and dry. Chronic hyperpigmentation and changes of stasis dermatitis of the lower legs with scabs, superficial skin tear, small ulcers, and scaly skin. There is a blue/purple hue to the lower legs bilaterally, almost as though they are bruise, possibly due to tight wrapping from Gregorio bandages which have been removed. Erythema and shallow ulceration on the posterior. There is a chronic wound on the left heel with a beefy red wound bed and a small amount of scaly, yellowish tissue at the periphery. Toenails are thick and yellow. Capillary refill is approximately 3 seconds. Hands and feet are cool. Genitourinary: Coats catheter in place draining pink-tinged urine. Extremities:??No cyanosis or clubbing. Chronic pitting and nonpitting edema of the lower legs. Pedal pulses diminished. Neurological: Heavily sedated. Does not withdrawal to noxious stimuli. Psychiatric:?Unable to assess as he is sedated. H&P: Results Labs Labs: Short CBC 02/28/24 Range/Units 13:28 WBC 2.3 L (4.5-10.0) K/mm3 Hgb 8.4 L (14.0-18.0) g/dL Hct 27.3 L (42.0-52.0) % Plt Count 284 (150-375) k/mm3 BMP 02/28/24 13:28 Sodium 134 L Potassium 5.3 H Chloride 110 H Carbon Dioxide 22 BUN 45 H D Creatinine 1.50 H Glucose 133 H Calcium 9.7 Cardiac Enzymes 02/28/24 02/28/24 Range/Units 13:28 17:13 Troponin I < 0.012 < 0.012 (0.000-0.034) ng/mL Liver Function 02/28/24 Range/Units 13:28 Total Bilirubin 0.3 (0.2-1.3) mg/dL AST 15 L (17-59) U/L ALT 11 (6-50) U/L Alkaline Phosphatase 98 (38-126) U/L Albumin 2.8 L (3.5-5.1) g/dL Urine 02/28/24 Range/Units 13:44 Urine Color Light yellow (Yellow) Urine Appearance Turbid H (Clear) Urine pH 8.0 (5.0-9.0) Ur Specific Bernard 1.014 (1.001-1.035) Urine Protein 3+ H (Negative) mg/dL Urine Glucose (UA) Negative (Negative) mg/dL Impressions Chest/Abdomen/Pelvis CT 02/28/24 16:45 IMPRESSION: Fecal stasis distending the rectum and distal large bowel consistent with fecal impaction. Bilateral double-J stents without hydronephrosis. Large right and moderate left-sided pleural effusions. Inflammatory change surrounding the gallbladder and pancreas, consistent with possible pancreatitis and cholecystitis. Head CT 02/28/24 16:59 Impression: No acute intracranial hemorrhage or suspicious mass effect. Abdomen X-Ray 02/28/24 19:17 IMPRESSION: Nasogastric tube in good position and ready for immediate use. Chest X-Ray 02/28/24 19:18 IMPRESSION: Endotracheal tube in good radiographic position, as detailed above. ABG ABG results: 02/28/24 02/28/24 14:24 18:41 Puncture Site Right radial Left radial ABG pH 7.266 L* 7.376 ABG pCO2 49.5 H 37.5 ABG pO2 82.6 90.3 ABG PO2/FiO2 Ratio 0.83 1.81 ABG HCO3 22.0 21.5 L ABG O2 Saturation 94.6 L 96.8 ABG O2 Content 10.3 L 12.5 L ABG Base Excess -4.7 -3.3 A-a Gradient 580.9 224.0 Oxyhemoglobin 92.3 95.6 Carboxyhemoglobin 0.9 Reduced Hemoglobin 3.2 Total Hemoglobin 7.8 L* 9.2 L O2 Delivery Device Non-rebreather mask Ventilator O2 Liters/Min 15.0 Not Reportable Vent Rate 20 FiO2 100 50 Assessment and Plan Assessment and plan (1) Shock: Code(s): R57.9 - Shock, unspecified Status: Acute Assessment and Plan: Differential diagnosis includes cardiogenic shock given profound bradycardia on arrival, hypovolemic shock as he once again has elevated BUN and creatinine from baseline, versus septic shock given grossly abnormal urinalysis. Moreover it may very well be a combination of all 3. * Left femoral central venous catheter inserted on 02/28/2024. * Currently on dopamine and norepinephrine to maintain a mean arterial pressure of at least 65. * He was adequately hydrated in the emergency department and received a 3 L normal saline bolus. * Continue empiric antibiotics including cefepime and vancomycin. (2) Bradycardia: Code(s): R00.1 - Bradycardia, unspecified Status: Acute Assessment and Plan: EKG showed undetermined underlying rhythm with marked bradycardia with a rate of 33. * Currently on dopamine with a heart rate in the 60s to 70s. * Attempt to wean dopamine to see if heart rate has improved now that he is no longer hypothermic. * Avoid AV dolores blockers. * Atropine at bedside. Check TSH. * Cardiology has been consulted. (3) Hypothermia: Code(s): T68.XXXA - Hypothermia, initial encounter Status: Acute Assessment and Plan: Temperature was 85.8? F on arrival and he is now at a normal temperature after being placed under a Edmar Hugger. * Coats catheter with temperature probe for close monitoring. * Check TSH. (4) Respiratory failure: Code(s): J96.90 - Respiratory failure, unspecified, unspecified whether with hypoxia or hypercapnia Status: Acute Assessment and Plan: Patient was intubated for impending respiratory failure. * Chest x-ray shows ET tube in appropriate position. * ABGs were reviewed and vent will be managed per surface ship usw supervisor. (5) Bacteriuria with pyuria: Code(s): R82.71 - Bacteriuria; R82.81 - Pyuria Status: Acute Assessment and Plan: He has a chronic indwelling Coats catheter with history of Pseudomonas and ESBL E coli growing in urine cultures. * Continue cefepime, pending urine culture. (6) Electrolyte abnormality: Code(s): E87.8 - Other disorders of electrolyte and fluid balance, not elsewhere classified Status: Acute Assessment and Plan: Including a sodium of 134, potassium 5.3, chloride 110. Not significant enough to cause bradycardia. * Received 3 L normal saline in the ED on 02/28/2024. * Sodium has improved somewhat, potassium continues to rise. * Potassium will be treated appropriately and electrolytes will be monitored closely. (7) Acute kidney injury: Code(s): N17.9 - Acute kidney failure, unspecified Status: Acute Assessment and Plan: Patient once again has an acute kidney injury with elevated BUN and creatinine from baseline. * Likely due to a combination of hypoperfusion from hypotension, hypovolemia from dehydration, possible ATN from sepsis. * Coats catheter is patent and draining and CT scan shows no evidence of hydronephrosis. (8) Ureteral stent present: Code(s): Z96.0 - Presence of urogenital implants Status: Acute Assessment and Plan: CT scan shows bilateral double-J stents without hydronephrosis. * He has been evaluated by Nephrology who recommends percutaneous nephrolithotomy and they referred him to either by [facility] or [facility] for definitive management however it is my understanding that the patient's has not yet called to make an appointment. (9) Chronic obstructive pulmonary disease: Code(s): J44.9 - Chronic obstructive pulmonary disease, unspecified Status: Acute Assessment and Plan: No evidence of significant wheezing on exam today. Continue maintenance inhalers. (10) Insulin dependent diabetes mellitus: Status: Chronic Assessment and Plan: Initiate sliding scale insulin, Accu-Cheks, and hypoglycemic protocol. Quality VTE Prophylaxis VTE prophylaxis: pharmacologic ordered (on apixaban) Hospitalist [facility] Advance Care Plan I have confirmed that the patient's Advanced Care Plan is present, code status is documented, or surrogate decision maker is listed in patient medical record.: Yes Medication Reconciliation I have utilized all available resources to obtain, update and review the patients current medications (includes all prescriptions, OTC, herbals, cannabis, and nutritional supplements).: Yes Critical Care Time Critical Care Time: Yes Total Critical Care Time: 60 Attestation: Due to a high probability of clinically significant, life threatening deterioration, the patient required my highest level of preparedness to intervene emergently and I personally spent this critical care time directly and personally managing the patient. This critical care time included obtaining a history; examining the patient; pulse oximetry; ordering and review of studies; arranging urgent treatment with development of a management plan; evaluation of patient's response to treatment; frequent reassessment; and discussions with other providers. It was exclusive of separately billable procedures and treating other patients and teaching time. Please see Assessment and Plan section and the rest of the note for further information on patient assessment and treatment.
[2024-02-29] VITALS (55 sets, daily range): BP systolic 78–119; BP diastolic 37–75; PULSE 55–80; RESP 16–20; TEMP 35.8–37.5; O2SAT 94–99; BMI 41.2; BMI 39.2
[2024-02-29 00:03] LABS: Glucose Point of Care 206 mg/dl (65-105)
--- NOTE | 2024-02-29 00:19 | ADMGEN ---
This patient, Taye Marrero Jr., was admitted to Intensive Care Unit-9. Patient/family oriented to hospital policies and general routines including ID bracelet, bed and alarms, visiting hours, pain management, procedures, bathroom and other care routines, personal items, smoking policy, room service/diet, and visiting hours. Information on how to activate the Rapid Response Team has been discussed. Patient/Family are encouraged to report perceived risks to care and to ask questions if they do not understand what they are told or what they should do.
[2024-02-29] MEDS: INSULIN ASPART (*BKC) 100 UNITS/ML SUB-Q (00:29)
[2024-02-29 00:44] LABS: Anion Gap 2 mmol/L (4-12); Blood Urea Nitrogen 42 mg/dL (9-20); Calcium 9.5 mg/dL (8.4-10.2); Carbon Dioxide 22 mmol/L (22-30); Chloride 111 mmol/L (98-107); Estimated Glomerular Filt Rate 50; Glucose 204 mg/dL (65-110); Potassium 5.5 mmol/L (3.4-5.0); Sodium 135 mmol/L (137-145)
[2024-02-29 00:53] LABS: Troponin I < 0.012 ng/mL (0.000-0.034)
[2024-02-29 01:35] LABS: Procalcitonin 0.1 ng/mL
[2024-02-29 02:19] LABS: Free T4 Free Thyroxine Reflex 1.59 ng/dL (0.78-2.19)
[2024-02-29 02:59] LABS: MRSA (PCR) NOT DETECTED (NOT DETECTE)
[2024-02-29] MEDS: SODIUM ZIRCONIUM CYCLOSILICATE 10 GM POWD.PACK PO ×4 (03:19→18:18)
[2024-02-29] MEDS: DEXTROSE 50% 25 GM/50 ML SYRINGE IV PUSH ×2 (03:24→08:18)
[2024-02-29] MEDS: INSULIN HUMAN REGULAR (*BKC) 100 UNITS/ML 10 UNITS IV PUSH ×2 (03:26→08:19)
[2024-02-29 03:34] LABS: Glucose Point of Care 203 mg/dl (65-105)
[2024-02-29] MEDS: NOREPINEPHRINE 8 MG/D5W 250 ML 8 MG/250 ML BAG 16.88 MG IV CONT (04:15)
[2024-02-29] MEDS: CEFEPIME 2 GM/NS 50 ML 2 GM/50 ML BAG IVPB (04:47)
[2024-02-29 05:10] LABS: Basophils Percent Auto 0.6 % (0.2-1.2); Eosinophils Percent Auto 0.6 % (0-4.4); Hematocrit 25.5 % (42.0-52.0); Hemoglobin 7.9 g/dL (14.0-18.0); Immature Granulocyte Absolute 0.01 K/mm3 (0.00-0.031); Immature Granulocyte Percent A 0.2 % (0-0.5); Lymphocytes Absolute Auto 0.44 K/mm3 (0.9-3.2); Lymphocytes Percent Auto 9.1 % (18.3-44.2); Mean Corpuscular Hemoglobin 24.7 pg (26-34); Mean Corpuscular Volume 79.7 fl (80-100); Mean Platelet Volume 9.4 fl (7.4-10.4); Monocytes Absolute Auto 0.6 K/mm3 (0.1-0.6); Monocytes Percent Auto 12.5 % (2.6-8.5); Neutrophils Absolute Auto 3.7 K/mm3 (1.3-6.7); Nucleated Red Blood Cells Perc 0.4 % (0.0-0.2); Platelet Count Result 311 k/mm3 (150-375); Red Cell Distribution Width 19.1 % (11.5-14.5); White Blood Count 4.8 K/mm3 (4.5-10.0)
[2024-02-29 05:16] LABS: Alveolar/Arterial O2 Gradient 121.3 mmHg; Base Excess ABG -5.6 mEq/l (+/-2.0); Carboxyhemoglobin 0.9 % THb (0-2.0); Fractional Inspired Oxygen 35 %; HCO3 ABG 19.9 mEq/l (22.0-26.0); Methemoglobin ABG 0.3 %THb (0-1.5); Oxygen Content ABG 11.6 %vol (16.0-22.0); Oxygen Saturation ABG 95.5 % (95.0-100.0); Oxyhemoglobin 93.7 % THb (90.0-100.0); PCO2 ABG 38.9 mmHg (35.0-45.0); PO2 FiO2 Ratio Arterial Blood 2.37 %; Reduced Hemoglobin 5.1 %THb (0-5.0); Total Hemoglobin 8.7 g/dL (12.0-18.0); pH ABG 7.326 (7.350-7.450)
[2024-02-29 05:21] LABS: Arterial Blood Gas PEEP 5 cmH2O; Arterial Blood Gas Tidal Volume 450 ml; Arterial Blood Gas Vent Mode CMV; Arterial Blood Gas Ventilator rate 20 /MIN; Device VENTILATOR; Modified Allen's Test Pass; Site Drawn RIGHT RADIAL
[2024-02-29 05:28] LABS: INR 2.2
[2024-02-29 05:32] LABS: Alanine Aminotransferase 11 U/L (6-50); Albumin Level 2.7 g/dL (3.5-5.1); Alkaline Phosphatase 90 U/L (38-126); Anion Gap 3 mmol/L (4-12); Aspartate Amino Transferase 15 U/L (17-59); Bilirubin,Total 0.4 mg/dL (0.2-1.3); Blood Urea Nitrogen 41 mg/dL (9-20); Calcium 9.3 mg/dL (8.4-10.2); Carbon Dioxide 22 mmol/L (22-30); Chloride 111 mmol/L (98-107); Estimated CRCL calculation 59 ml/min; Estimated Glomerular Filt Rate 47; Glucose 191 mg/dL (65-110); Magnesium 2.2 mg/dL (1.6-2.3); Phosphorus 4.4 mg/dL (2.5-4.5); Potassium 5.2 mmol/L (3.4-5.0); Sodium 136 mmol/L (137-145)
[2024-02-29] MEDS: LEVOTHYROXINE SODIUM 100 MCG TABLET PO (05:49)
[2024-02-29] MEDS: DOPamine 400 MG/D5W 250 ML 400 MG/250 ML BAG 20.4 MG IV CONT (06:00)
[2024-02-29] MEDS: ALBUTEROL SULFATE NEB 2.5 MG/3 ML INH 10 MG INHALATION (08:12)
[2024-02-29] MEDS: ALBUMIN HUMAN 25% 25 GM/100 ML 100 ML IVPB ×4 (08:18→23:01)
[2024-02-29] MEDS: APIXABAN 5 MG TABLET PO ×2 (08:18→20:24)
[2024-02-29] MEDS: SODIUM BICARBONATE 8.4% 50 MEQ/50 ML SYRINGE IV PUSH (08:18)
[2024-02-29] MEDS: PANTOPRAZOLE SODIUM IV 40 MG VIAL IV PUSH (08:19)
[2024-02-29] MEDS: MICONAZOLE NITRATE 2% CREAM 30 GM TUBE 1 APPLIC TOPICAL ×2 (08:19→16:54)
--- NOTE | 2024-02-29 09:52 | WPDCNINT ---
Assessment and Plan Assessment and plan (1) Septic shock: Code(s): A41.9 - Sepsis, unspecified organism; R65.21 - Severe sepsis with septic shock Status: Acute Assessment and Plan: 02/28/2024: Patient presented with bradycardia, hypothermia, leukocytosis, lactic acidosis, hypotension. Patient received adequate amount of IV fluids per sepsis protocol despite which he remained hypotensive, central line was inserted and started on dopamine and Levophed -likely etiology UTI -02/27: Blood cultures have been obtained and pending -02/27: Urine cultures have been obtained and pending -patient was given cefepime, metronidazole, vancomycin in the ED -looking at previous cultures, patient's E coli bacteremia was resistant to cefepime, patient also had a Pseudomonas UTI in the past -continue vancomycin (02/27) , will switch cefepime to meropenem (02/28) -albumin for volume expansion -continue Levophed and dopamine to maintain MAP > 65 mmHg or greater at all times for adequate end organ perfusion (2) Acute respiratory failure: Code(s): J96.00 - Acute respiratory failure, unspecified whether with hypoxia or hypercapnia Status: Acute Assessment and Plan: Patient was intubated on 02/27 in the ER for acute encephalopathy likely related to septic shock and for airway protection -currently on CMV mode of ventilation, 35% FiO2 and peep of 5 -chest x-ray and ABGs reviewed, ventilator adjusted -continue bronchodilators -sedated with fentanyl and Versed infusion, maintain RASS of 0 to -1, have asked the bedside RN to start weaning the sedation, daily SBT and SAT 02/27: CT chest, abdomen and pelvis IMPRESSION: Fecal stasis distending the rectum and distal large bowel consistent with fecal impaction. Bilateral double-J stents without hydronephrosis. Large right and moderate left-sided pleural effusions. Inflammatory change surrounding the gallbladder and pancreas, consistent with possible pancreatitis and cholecystitis. (3) Acute metabolic encephalopathy: Code(s): G93.41 - Metabolic encephalopathy Status: Acute Assessment and Plan: Acute metabolic encephalopathy, multifactorial most likely related to UTI, infection, septic shock, hypothermia, hypovolemia and hypotension -continue to treat underlying cause -currently sedated and intubated (4) Bradycardia: Code(s): R00.1 - Bradycardia, unspecified Status: Acute Assessment and Plan: Bradycardia could be related to hypothermia, septic shock -patient was started on dopamine -will continue to wean dopamine and evaluate (5) Hypothermia: Code(s): T68.XXXA - Hypothermia, initial encounter Status: Acute Assessment and Plan: Hypothermia most likely related to septic shock, currently normal body temperature -continue to monitor (6) Urinary tract infection: Qualifiers: Encounter type: initial encounter Indwelling urinary catheter type: indwelling urethral catheter Urinary tract infection type: catheter-associated UTI Qualified Code(s): T83.511A - Infection and inflammatory reaction due to indwelling urethral catheter, initial encounter; N39.0 - Urinary tract infection, site not specified Code(s): N39.0 - Urinary tract infection, site not specified Status: Acute Assessment and Plan: UA was reflective of UTI -patient has had previous UTIs with Pseudomonas and E coli -continue antibiotics as above (7) Electrolyte abnormality: Code(s): E87.8 - Other disorders of electrolyte and fluid balance, not elsewhere classified Status: Acute Assessment and Plan: Hyperkalemia likely related to acidosis, septic shock, acute kidney injury -patient was treated with insulin and D50, Lokelma, sodium bicarbonate and albuterol inhaler -will recheck BMP for potassium level later today (8) Acute kidney injury: Code(s): N17.9 - Acute kidney failure, unspecified Status: Acute Assessment and Plan: 02/27: Patient presented with septic shock, hypovolemia, creatinine was 1.50, baseline creatinine in is 0.70-1.20 -adequately fluid-resuscitated -patient had adequate urine output, creatinine stable -CT scan of the abdomen did not show any hydronephrosis -likely etiology of septic shock is UTI -continue to monitor renal function, electrolytes and urine output -check urine lytes, urine eosinophils and CK level (9) Ureteral stent present: Code(s): Z96.0 - Presence of urogenital implants Status: Acute Assessment and Plan: Bilateral double J stents are present extending into the patient's bladder, on CT abdomen and pelvis, no hydronephrosis. Bulky calcification within the right kidney, no hydronephrosis -continue IV fluids, antibiotics -urology has been consulted, awaiting their input (10) Chronic obstructive pulmonary disease: Code(s): J44.9 - Chronic obstructive pulmonary disease, unspecified Status: Acute Assessment and Plan: Patient has a history of COPD, continue bronchodilators, currently on mechanical ventilation with oxygen -also on antibiotics (11) Insulin dependent diabetes mellitus: Status: Chronic Assessment and Plan: Sliding scale insulin Accu-Cheks Plan DVT prophylaxis: Eliquis Stress ulcer prophylaxis: Protonix Nutrition: Will start trickle tube feeds Code Status: Full code, discussed with spouse, had an extensive talk with her regarding code status, she wants it to be a full code for now, she does not want to suffer but this time she decided to intubate him. She is going to think about code status and get back to us, but otherwise he is a full code for now Critical Care Time Spent: 55 minutes Due to a high probability of clinically significant, life threatening deterioration, the patient required my highest level of preparedness to intervene emergently and I personally spent this critical care time directly and personally managing the patient. This critical care time included obtaining a history; examining the patient; pulse oximetry; ordering and review of studies; arranging urgent treatment with development of a management plan; evaluation of patient's response to treatment; frequent reassessment; and discussions with other providers. It was exclusive of separately billable procedures and treating other patients and teaching time. Please see Assessment and Plan section and the rest of the note for further information on patient assessment and treatment This dictation may have been done utilizing a voice recognition system. Attempts have been made to correct errors. However, there may be uncorrected grammatical, spelling, and recognitions errors present. Microbial Specialist Consult Note Consult date: 02/29/24 Reason for consult: Altered mental status, septic shock, bradycardia, hypothermia, respiratory failure, UTI, acute kidney injury HPI: Taye Marrero Jr. is a 68 year old male with significant past medical history of E coli bacteremia, Pseudomonas bacteremia on 01/2024, UTI, chronic hyponatremia, chronic indwelling catheter, osteomyelitis of the left foot, diastolic congestive heart failure, COPD, GERD, hypothyroidism, paroxysmal AFib, history of kidney stones, peripheral neuropathy, depression, hyperlipidemia, essential hypertension, insulin-dependent diabetes presented to the ED on 02/28/2024 from [facility] for altered mental status. In the ED he was found to be hypotensive, hypothermic, bradycardic. Patient was given adequate amount of IV fluid for sepsis protocol. Patient was found to have a body temperature of 85.8, heart rates in the 40s. Initial EKG showed mild bradycardia with rate of 33, interventricular conduction delay and moderate T-wave abnormalities. WBC count was 2.3, hemoglobin 8.4, platelets 284. INR of 2.5. Sodium 134, potassium 5.3, BUN 45 minutes creatinine of 1.50, lactic acid of 1.3. Troponin< 0.012. Urinalysis was reflective of UTI, influenza, RSV and COVID were negative. -CT brain did not show any acute finding -CT chest abdomen and pelvis showed fecal stasis descending the rectum and distal large bowel consistent with impaction. Bilateral double-J stents without hydronephrosis, large right and moderate left-sided pleural effusion, inflammatory changes in the gallbladder and pancreas consistent with possible pancreatitis and cholecystitis. Patient was intubated the ED due to decreased mental status and for airway protection. A central line was inserted and patient was started on dopamine and norepinephrine. He also receive cefepime, metronidazole, vancomycin on hydrocortisone. Patient was admitted to the ICU for further Patient seen examined this morning in the ICU, remains intubated on CMV mode of ventilation, peep of 5, 35% FiO2. Sedated with fentanyl and Versed infusion. Patient does not open his eyes or follow simple commands. Urine output has been adequate, afebrile. Patient remains on dopamine and Levophed for Review of Systems Review of Systems: ROS unobtainable: Yes unobtainable due to endotracheal tube, unobtainable due to medical condition and unobtainable due to mental status PMFSH Past Medical History Medical History (Updated 02/28/24 @ 23:28 by Malorie Jones PA-C) Bacteremia due to Pseudomonas (01/2024) E coli bacteremia Chronic hyponatremia Chronic indwelling [place] catheter Chronic osteomyelitis of left foot Diastolic congestive heart failure Chronic obstructive pulmonary disease Gastroesophageal reflux disease Hypothyroidism Obstructive sleep apnea Non-compliant with CPAP. Paroxysmal atrial fibrillation Choledocholithiasis (05/2022) Kidney stones Peripheral neuropathy Depression Chronic venous insufficiency Morbid obesity Hyperlipidemia Hypertension Insulin dependent diabetes mellitus Surgical History Surgical History History of abdominal surgery The patient has a large scar in the right lower abdomen just above the right groin and on palpation of his abdomen he has what feels like mesh that extends from side to side and has a course rough texture it also extends from just under the umbilicus to a couple of inches above the pubis History of tonsillectomy and adenoidectomy History of hemorrhoidectomy History of cataract extraction History of back surgery History of appendectomy Family History Family History Sibling Family history of heart disease in male family member before age 55 Family history of diabetes mellitus in first degree relative Patient's brother is Family history of obesity Hypertension Mother Family history of arthritis Patient's mother is Father Patient's father is Social History Social History Social History: Surrogate medical decision maker: Marlys Marrero, . Code status: Full code. Smoking packs per day: 1.5 Smoking cigarettes per day: 30.0 Years smoked: 15 Smoking pack-years: 22.50 Smoking status: Never smoker Second hand tobacco smoke exposure: Yes Alcohol intake: never Substance use: never Substance use type: does not use Lack of Transportation: No Lack of Food: Never True Current Housing: I Have Housing Concerned About Future Housing: No Difficulty Paying Gas/Electric Bills: No Difficulty Paying for Meds: No Currently Unemployed: No Education: High School Diploma/GED Difficulty w/ Childcare or Family Care: No Living arrangements: shelter Additional living arrangements comments: Resident at [facility]. to Marlys. They have 2 sons. He is nonambulatory and depends on a [place] lift for transfer. 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 Spiritual care concerns: No Agree to blood products: Yes Meds Home Medications and Allergies Home Medications ?Medication ?Instructions ?Recorded ?Confirmed ?Type ipratropium 0.5 mg-albuterol 3 mg 3 ml inhalation Q4H PRN Wheezing 02/15/21 02/29/24 History (2.5 mg base)/3 mL nebulization soln levothyroxine 100 mcg tablet 100 mcg PO DAILY 02/15/21 02/29/24 History pravastatin 40 mg tablet 40 mg PO HS 12/08/21 02/29/24 History multivitamin with minerals-folic 1 tablet PO DAILY 03/02/22 02/29/24 History acid 0.4 mg tablet apixaban 5 mg tablet (Eliquis) 5 mg PO Q12HR #60 tabs 07/01/22 02/29/24 Rx acetaminophen 325 mg capsule 650 mg PO Q4-6H PRN Pain (Scale 09/10/22 02/29/24 History (Tylenol) Score 1-3) sennosides 8.6 mg-docusate sodium 1 tablet PO BID 09/10/22 02/29/24 History 50 mg tablet (Senna Plus) melatonin 5 mg tablet 5 mg PO HS 03/10/23 02/29/24 History bupropion HCl 150 mg 24 hr tablet, 150 mg PO QAM #30 tabs 05/23/23 02/29/24 Rx extended release polyethylene glycol 3350 17 gram 17 g PO BID #30 ea 06/26/23 02/29/24 Rx oral powder packet (Miralax) insulin NPH-regular 70-30 U-100 25 unit subcut QAM 08/07/23 02/29/24 History insulin 100 unit/mL subcutaneous pen (Novolin 70-30 FlexPen U-100 Insulin) magnesium oxide 400 mg (241.3 mg 400 mg PO DAILY 08/07/23 02/29/24 History magnesium) tablet metoprolol succinate 25 mg 75 mg (3 x 25 mg) PO QAM #90 tabs 08/18/23 02/29/24 Rx tablet,extended release 24 hr (Toprol XL) nystatin 100,000 unit/gram topical 1 applic topical BID 11/30/23 02/29/24 History cream amlodipine 5 mg tablet (Norvasc) 5 mg PO DAILY #30 tabs 12/27/23 02/29/24 Rx famotidine 20 mg tablet 20 mg PO QHS #30 tabs 12/27/23 02/29/24 Rx insulin NPH-regular 70-30 U-100 15 unit (0.15 mL) subcut 1700 #15 12/27/23 02/29/24 Rx insulin 100 unit/mL subcutaneous mL pen (Novolin 70-30 FlexPen U-100 Insulin) lanolin alcohols-mineral 1 applic topical DAILY #113 grams 12/27/23 02/29/24 Rx oil-w.petrolatum-ceresin topical cream (Minerin Creme topical) pantoprazole 40 mg tablet,delayed 40 mg PO QAM #30 tabs 12/27/23 02/29/24 Rx release (Protonix) valsartan 40 mg tablet 40 mg PO DAILY #30 tabs 12/27/23 02/29/24 Rx brexpiprazole 0.5 mg tablet 0.5 mg PO DAILY 02/08/24 02/29/24 History (Rexulti) gabapentin 100 mg capsule 300 mg PO TID 02/08/24 02/29/24 History lisinopril 10 mg tablet 10 mg PO DAILY 02/08/24 02/29/24 History trazodone 50 mg tablet 75 mg PO HS 02/08/24 02/29/24 History Allergies Allergy/AdvReac Type Severity Reaction Status Date / Time No Known Allergies Allergy Verified 12/22/23 12:21 Vital Signs Vital Signs - 24 hr 02/28/24 13:13 02/28/24 13:40 02/28/24 13:43 Temperature 85.8 F L Pulse Rate 46 L 39 L Respiratory Rate 15 Blood Pressure 89/39 L 77/48 L Pulse Oximetry 92 Oxygen Delivery Room Air Fraction of Inspired Oxygen 02/28/24 14:03 02/28/24 14:05 02/28/24 14:14 Temperature 86.2 F L 86.2 F L Pulse Rate 43 L 52 L Respiratory Rate 14 Blood Pressure 81/44 L 95/61 L Pulse Oximetry 87 L Oxygen Delivery Fraction of Inspired Oxygen 02/28/24 14:15 02/28/24 14:17 02/28/24 14:17 Temperature 86.2 F L 86.3 F L 86.3 F L Pulse Rate 47 L 49 L Respiratory Rate 15 14 Blood Pressure 99/57 L Pulse Oximetry 73 L 92 Oxygen Delivery Fraction of Inspired Oxygen 02/28/24 14:22 02/28/24 14:25 02/28/24 14:29 Temperature 86.3 F L 86.4 F L 86.5 F L Pulse Rate 53 L 54 L 52 L Respiratory Rate 16 16 12 Blood Pressure 89/72 L 99/70 L 98/59 L Pulse Oximetry 99 100 97 Oxygen Delivery Fraction of Inspired Oxygen 02/28/24 14:40 02/28/24 15:14 02/28/24 15:16 Temperature 87.7 F L Pulse Rate 54 L 42 L 39 L Respiratory Rate 21 H 12 Blood Pressure 75/49 L 82/52 L Pulse Oximetry 100 100 Oxygen Delivery BiPAP Fraction of Inspired Oxygen 02/28/24 15:17 02/28/24 15:21 02/28/24 15:49 Temperature 87.8 F L 88.5 F L Pulse Rate 36 L Respiratory Rate 15 Blood Pressure 82/50 L Pulse Oximetry 97 Oxygen Delivery Fraction of Inspired Oxygen 02/28/24 15:50 02/28/24 16:51 02/28/24 16:52 Temperature 89.6 F L 89.7 F L Pulse Rate 50 L 40 L 40 L Respiratory Rate 16 17 16 Blood Pressure 92/54 L Pulse Oximetry 98 98 97 Oxygen Delivery BiPAP Fraction of Inspired Oxygen 02/28/24 16:56 02/28/24 16:57 02/28/24 17:02 Temperature 89.8 F L 89.9 F L Pulse Rate 38 L 39 L Respiratory Rate 12 12 Blood Pressure 88/51 L 85/45 L Pulse Oximetry 98 99 97 Oxygen Delivery BiPAP Fraction of Inspired Oxygen 02/28/24 17:03 02/28/24 17:04 02/28/24 17:26 Temperature 89.9 F L 90.0 F L Pulse Rate 40 L 42 L 31 L Respiratory Rate 12 12 Blood Pressure 87/46 L 75/49 L Pulse Oximetry 97 Oxygen Delivery Fraction of Inspired Oxygen 02/28/24 18:04 02/28/24 18:11 02/28/24 18:15 Temperature Pulse Rate 41 L 38 L 42 L Respiratory Rate Blood Pressure 82/48 L 79/53 L 114/58 L Pulse Oximetry Oxygen Delivery Fraction of Inspired Oxygen 02/28/24 18:17 02/28/24 18:25 02/28/24 18:34 Temperature Pulse Rate 49 L 55 L 61 Respiratory Rate Blood Pressure 110/56 L 135/68 Pulse Oximetry 100 Oxygen Delivery Mechanical Ventilation Fraction of Inspired Oxygen 60 02/28/24 18:36 02/28/24 18:41 02/28/24 18:55 Temperature Pulse Rate 66 71 Respiratory Rate 20 Blood Pressure 126/65 Pulse Oximetry Oxygen Delivery Fraction of Inspired Oxygen 50 02/28/24 19:05 02/28/24 19:11 02/28/24 19:12 Temperature 92.6 F L Pulse Rate 76 80 80 Respiratory Rate 20 20 Blood Pressure 119/75 118/63 Pulse Oximetry 100 Oxygen Delivery Fraction of Inspired Oxygen 02/28/24 19:15 02/28/24 19:18 02/28/24 19:21 Temperature 92.6 F L 92.7 F L 92.7 F L Pulse Rate 76 80 75 Respiratory Rate 20 20 20 Blood Pressure 124/68 112/66 117/68 Pulse Oximetry 100 100 99 Oxygen Delivery Fraction of Inspired Oxygen 02/28/24 19:24 02/28/24 19:27 02/28/24 19:30 Temperature 92.8 F L 92.9 F L 92.9 F L Pulse Rate 89 92 78 Respiratory Rate 20 20 20 Blood Pressure 119/55 L 115/58 L 119/69 Pulse Oximetry 100 99 100 Oxygen Delivery Fraction of Inspired Oxygen 02/28/24 19:31 02/28/24 19:33 02/28/24 19:36 Temperature 92.9 F L 93.0 F L 93.0 F L Pulse Rate 81 81 77 Respiratory Rate 20 20 20 Blood Pressure 118/69 117/72 Pulse Oximetry 100 99 99 Oxygen Delivery Fraction of Inspired Oxygen 02/28/24 19:39 02/28/24 19:42 02/28/24 19:45 Temperature 93.1 F L 93.1 F L 93.2 F L Pulse Rate 73 85 81 Respiratory Rate 20 20 20 Blood Pressure 116/49 L 116/64 119/59 L Pulse Oximetry 99 100 100 Oxygen Delivery Fraction of Inspired Oxygen 02/28/24 19:46 02/28/24 19:48 02/28/24 19:51 Temperature 93.2 F L 93.2 F L 93.3 F L Pulse Rate 84 84 77 Respiratory Rate 20 20 20 Blood Pressure 112/66 115/65 Pulse Oximetry 99 100 99 Oxygen Delivery Fraction of Inspired Oxygen 02/28/24 19:54 02/28/24 19:57 02/28/24 20:00 Temperature 93.4 F L 93.4 F L 93.5 F L Pulse Rate 89 88 79 Respiratory Rate 20 20 20 Blood Pressure 116/69 121/61 117/64 Pulse Oximetry 99 100 99 Oxygen Delivery Fraction of Inspired Oxygen 02/28/24 20:01 02/28/24 20:03 02/28/24 20:06 Temperature 93.5 F L 93.5 F L 93.6 F L Pulse Rate 87 91 79 Respiratory Rate 20 20 20 Blood Pressure 117/63 117/61 Pulse Oximetry 99 100 99 Oxygen Delivery Fraction of Inspired Oxygen 02/28/24 20:09 02/28/24 20:12 02/28/24 20:15 Temperature 93.7 F L 93.7 F L 93.8 F L Pulse Rate 80 82 79 Respiratory Rate 20 20 20 Blood Pressure 114/54 L 117/66 109/69 Pulse Oximetry 99 100 99 Oxygen Delivery Fraction of Inspired Oxygen 02/28/24 20:16 02/28/24 20:18 02/28/24 20:21 Temperature 93.8 F L 93.8 F L 93.9 F L Pulse Rate 87 82 87 Respiratory Rate 20 20 20 Blood Pressure 112/64 111/64 Pulse Oximetry 99 99 99 Oxygen Delivery Fraction of Inspired Oxygen 02/28/24 20:24 02/28/24 20:27 02/28/24 20:30 Temperature 94.0 F L 94.0 F L 94.1 F L Pulse Rate 84 77 79 Respiratory Rate 20 20 20 Blood Pressure 118/54 L 112/67 117/68 Pulse Oximetry 99 99 99 Oxygen Delivery Fraction of Inspired Oxygen 02/28/24 20:31 02/28/24 20:33 02/28/24 20:36 Temperature 94.1 F L 94.1 F L 94.2 F L Pulse Rate 84 77 86 Respiratory Rate 20 20 20 Blood Pressure 117/58 L 117/61 Pulse Oximetry 99 99 99 Oxygen Delivery Fraction of Inspired Oxygen 02/28/24 20:39 02/28/24 20:42 02/28/24 20:45 Temperature 94.2 F L 94.3 F L 94.4 F L Pulse Rate 87 86 98 Respiratory Rate 20 20 26 H Blood Pressure 121/60 114/67 112/71 Pulse Oximetry 99 99 99 Oxygen Delivery Fraction of Inspired Oxygen 02/28/24 20:46 02/28/24 20:48 02/28/24 20:51 Temperature 94.4 F L 94.4 F L 94.5 F L Pulse Rate 95 97 88 Respiratory Rate 20 20 20 Blood Pressure 122/58 L 112/67 Pulse Oximetry Oxygen Delivery Fraction of Inspired Oxygen 02/28/24 20:54 02/28/24 20:57 02/28/24 21:00 Temperature 94.5 F L 94.6 F L 94.6 F L Pulse Rate 85 82 81 Respiratory Rate 20 20 20 Blood Pressure 115/61 119/63 119/66 Pulse Oximetry Oxygen Delivery Fraction of Inspired Oxygen 02/28/24 21:01 02/28/24 21:03 02/28/24 21:06 Temperature 94.7 F L 94.7 F L 94.8 F L Pulse Rate 88 77 79 Respiratory Rate 20 20 20 Blood Pressure 121/52 L 114/60 Pulse Oximetry 99 Oxygen Delivery Fraction of Inspired Oxygen 02/28/24 21:09 02/28/24 21:10 02/28/24 21:12 Temperature 94.9 F L Pulse Rate 85 86 93 Respiratory Rate 22 H Blood Pressure 114/60 107/60 103/85 Pulse Oximetry 100 Oxygen Delivery Fraction of Inspired Oxygen 02/28/24 21:15 02/28/24 21:15 02/28/24 21:16 Temperature 94.9 F L 95.0 F L Pulse Rate 84 91 86 Respiratory Rate 20 20 20 Blood Pressure 113/62 Pulse Oximetry 99 99 Oxygen Delivery Fraction of Inspired Oxygen 02/28/24 21:18 02/28/24 21:19 02/28/24 21:21 Temperature 95.0 F L 95.0 F L 95.1 F L Pulse Rate 86 86 84 Respiratory Rate 20 20 20 Blood Pressure 104/49 L 106/61 Pulse Oximetry 99 99 99 Oxygen Delivery Fraction of Inspired Oxygen 02/28/24 21:24 02/28/24 21:27 02/28/24 21:30 Temperature 95.1 F L 95.2 F L 95.2 F L Pulse Rate 69 78 85 Respiratory Rate 20 20 20 Blood Pressure 104/54 L 109/62 104/53 L Pulse Oximetry 99 100 99 Oxygen Delivery Fraction of Inspired Oxygen 02/28/24 21:31 02/28/24 21:33 02/28/24 21:36 Temperature 95.3 F L 95.3 F L 95.3 F L Pulse Rate 83 77 75 Respiratory Rate 20 20 20 Blood Pressure 104/51 L 104/52 L Pulse Oximetry 99 99 99 Oxygen Delivery Fraction of Inspired Oxygen 02/28/24 21:39 02/28/24 21:42 02/28/24 21:45 Temperature 95.4 F L 95.4 F L 95.5 F L Pulse Rate 81 79 76 Respiratory Rate 20 20 20 Blood Pressure 108/66 108/55 L 104/60 Pulse Oximetry 99 99 99 Oxygen Delivery Fraction of Inspired Oxygen 02/28/24 21:46 02/28/24 21:48 02/28/24 21:51 Temperature 95.5 F L 95.5 F L 95.6 F L Pulse Rate 78 73 80 Respiratory Rate 20 20 20 Blood Pressure 100/61 104/59 L Pulse Oximetry 99 99 98 Oxygen Delivery Fraction of Inspired Oxygen 02/28/24 21:54 02/28/24 21:55 02/28/24 21:57 Temperature 95.7 F L 95.7 F L Pulse Rate 83 85 92 Respiratory Rate 20 20 Blood Pressure 106/64 Pulse Oximetry 99 99 99 Oxygen Delivery Mechanical Ventilation Fraction of Inspired Oxygen 50 02/28/24 22:12 02/28/24 22:14 02/28/24 22:15 Temperature 96.0 F L 96.0 F L 96.0 F L Pulse Rate 81 80 78 Respiratory Rate 20 20 20 Blood Pressure 102/58 L Pulse Oximetry 100 99 99 Oxygen Delivery Fraction of Inspired Oxygen 02/28/24 22:17 02/28/24 22:19 02/28/24 22:22 Temperature 96.1 F L 96.1 F L 96.1 F L Pulse Rate 87 88 74 Respiratory Rate 20 20 20 Blood Pressure 103/60 109/57 L 106/56 L Pulse Oximetry 100 100 100 Oxygen Delivery Fraction of Inspired Oxygen 02/28/24 22:25 02/28/24 22:28 02/28/24 22:30 Temperature 96.2 F L 96.2 F L 96.3 F L Pulse Rate 88 78 83 Respiratory Rate 20 20 20 Blood Pressure 103/49 L 106/64 Pulse Oximetry 100 100 100 Oxygen Delivery Fraction of Inspired Oxygen 02/28/24 22:31 02/28/24 22:34 02/28/24 22:37 Temperature 96.3 F L 96.3 F L 96.4 F L Pulse Rate 76 86 81 Respiratory Rate 20 20 20 Blood Pressure 107/54 L 110/57 L 106/53 L Pulse Oximetry 100 99 100 Oxygen Delivery Fraction of Inspired Oxygen 02/28/24 22:40 02/28/24 22:43 02/28/24 22:45 Temperature 96.4 F L 96.5 F L 96.5 F L Pulse Rate 90 86 86 Respiratory Rate 20 20 20 Blood Pressure 108/49 L 106/56 L Pulse Oximetry 100 100 100 Oxygen Delivery Fraction of Inspired Oxygen 02/28/24 22:46 02/28/24 22:49 02/28/24 22:52 Temperature 96.5 F L 96.6 F L 96.6 F L Pulse Rate 87 75 82 Respiratory Rate 20 20 20 Blood Pressure 106/63 106/52 L 112/50 L Pulse Oximetry 100 100 100 Oxygen Delivery Fraction of Inspired Oxygen 02/28/24 22:55 02/28/24 23:25 02/28/24 23:26 Temperature 96.7 F L Pulse Rate 83 81 91 Respiratory Rate 20 20 Blood Pressure 109/53 L Pulse Oximetry 100 97 Oxygen Delivery Mechanical Ventilation Fraction of Inspired Oxygen 50 02/28/24 23:30 02/28/24 23:30 02/28/24 23:45 Temperature 96.4 F L Pulse Rate 89 88 82 Respiratory Rate 16 20 Blood Pressure 87/45 L 87/45 L Pulse Oximetry 100 96 Oxygen Delivery Fraction of Inspired Oxygen 02/29/24 00:00 02/29/24 00:00 02/29/24 00:00 Temperature Pulse Rate 80 80 Respiratory Rate 20 Blood Pressure 102/48 L Pulse Oximetry Oxygen Delivery Fraction of Inspired Oxygen 50 02/29/24 00:00 02/29/24 00:00 02/29/24 00:00 Temperature Pulse Rate 80 80 72 Respiratory Rate 20 20 Blood Pressure 102/48 L Pulse Oximetry Oxygen Delivery Fraction of Inspired Oxygen 02/29/24 00:00 02/29/24 01:00 02/29/24 01:00 Temperature Pulse Rate 73 73 Respiratory Rate 20 Blood Pressure 103/58 L Pulse Oximetry Oxygen Delivery Mechanical Ventilation Fraction of Inspired Oxygen 50 02/29/24 01:00 02/29/24 02:00 02/29/24 02:00 Temperature Pulse Rate 73 62 56 L Respiratory Rate 20 Blood Pressure 103/58 L 104/56 L Pulse Oximetry 96 Oxygen Delivery Fraction of Inspired Oxygen 02/29/24 02:00 02/29/24 02:00 02/29/24 02:00 Temperature Pulse Rate 70 70 Respiratory Rate 20 Blood Pressure 104/56 L Pulse Oximetry Oxygen Delivery Fraction of Inspired Oxygen 40 02/29/24 02:00 02/29/24 02:00 02/29/24 02:22 Temperature Pulse Rate 70 70 69 Respiratory Rate 20 Blood Pressure 104/56 L Pulse Oximetry 97 Oxygen Delivery Mechanical Ventilation Fraction of Inspired Oxygen 40 02/29/24 02:45 02/29/24 03:00 02/29/24 03:00 Temperature Pulse Rate 66 66 71 Respiratory Rate Blood Pressure 105/53 L 97/53 L 97/53 L Pulse Oximetry Oxygen Delivery Fraction of Inspired Oxygen 02/29/24 04:00 02/29/24 04:00 02/29/24 04:00 Temperature Pulse Rate 68 66 Respiratory Rate Blood Pressure 81/44 L Pulse Oximetry Oxygen Delivery Fraction of Inspired Oxygen 35 02/29/24 04:00 02/29/24 04:00 02/29/24 04:00 Temperature 96.4 F L Pulse Rate 66 68 Respiratory Rate 20 Blood Pressure 89/51 L 89/51 L Pulse Oximetry 96 Oxygen Delivery Mechanical Ventilation Fraction of Inspired Oxygen 35 02/29/24 04:00 02/29/24 04:00 02/29/24 04:15 Temperature Pulse Rate 66 68 68 Respiratory Rate 20 20 Blood Pressure 81/44 L Pulse Oximetry Oxygen Delivery Fraction of Inspired Oxygen 02/29/24 04:15 02/29/24 04:30 02/29/24 05:00 Temperature Pulse Rate 68 67 67 Respiratory Rate Blood Pressure 81/44 L 94/50 L 88/44 L Pulse Oximetry Oxygen Delivery Fraction of Inspired Oxygen 02/29/24 05:06 02/29/24 05:30 02/29/24 06:00 Temperature Pulse Rate 62 61 62 Respiratory Rate Blood Pressure 89/53 L Pulse Oximetry 96 Oxygen Delivery Mechanical Ventilation Fraction of Inspired Oxygen 35 02/29/24 06:00 02/29/24 06:00 02/29/24 06:00 Temperature 96.7 F L Pulse Rate 62 62 62 Respiratory Rate 20 Blood Pressure 90/46 L 90/46 L 90/46 L Pulse Oximetry 96 Oxygen Delivery Fraction of Inspired Oxygen 02/29/24 06:00 02/29/24 06:00 02/29/24 07:00 Temperature Pulse Rate 62 62 61 Respiratory Rate 20 20 20 Blood Pressure Pulse Oximetry Oxygen Delivery Fraction of Inspired Oxygen 02/29/24 07:00 02/29/24 07:25 02/29/24 08:00 Temperature 96.8 F L Pulse Rate 61 55 L 67 Respiratory Rate 20 20 Blood Pressure 104/49 L 109/55 L Pulse Oximetry 96 Oxygen Delivery Fraction of Inspired Oxygen 02/29/24 08:00 02/29/24 08:14 02/29/24 08:14 Temperature Pulse Rate 66 74 74 Respiratory Rate 16 Blood Pressure 109/55 L Pulse Oximetry 96 Oxygen Delivery Mechanical Ventilation Fraction of Inspired Oxygen 35 02/29/24 08:38 02/29/24 08:39 02/29/24 09:35 Temperature Pulse Rate 68 68 79 Respiratory Rate 20 16 Blood Pressure 116/62 Pulse Oximetry Oxygen Delivery Fraction of Inspired Oxygen Exam Narrative: General: Patient is intubated, sedated, in no acute distress Lungs/Chest: Trachea central, coarse breath sounds bilaterally, decreased at bases, No crackles or wheezing. Cardiac: Irregularly irregular, rate in the 50-60s Abdomen: Hypoactive bowel sounds. Obese. Soft. NT. ND. There appears and mesh underlying the skin in the midline Extremities: Bilateral feet have edema. He has 2 superficial wounds on the lateral aspect of left leg. He also has a wound which does not appear infected on the left heel. He has chronic venous stasis changes and edema : Coats in place Neurologic: Intubated and sedated, does not open his eyes or follow simple commands. Does not withdraw to pain in extremities. Skin: As above Psych: Unable to assess at this time Results Labs 02/29/24 05:00 02/29/24 05:00 Labs: Short CBC 02/28/24 02/29/24 Range/Units 13:28 05:00 WBC 2.3 L 4.8 (4.5-10.0) K/mm3 Hgb 8.4 L 7.9 L (14.0-18.0) g/dL Hct 27.3 L 25.5 L (42.0-52.0) % Plt Count 284 311 (150-375) k/mm3 BMP 02/28/24 02/29/24 02/29/24 13:28 00:15 05:00 Sodium 134 L 135 L 136 L Potassium 5.3 H 5.5 H 5.2 H Chloride 110 H 111 H 111 H Carbon Dioxide 22 22 22 BUN 45 H D 42 H 41 H Creatinine 1.50 H 1.40 H 1.50 H Glucose 133 H 204 H 191 H Calcium 9.7 9.5 9.3 Cardiac Enzymes 02/28/24 02/28/24 02/29/24 Range/Units 13:28 17:13 00:15 Troponin I < 0.012 < 0.012 < 0.012 (0.000-0.034) ng/mL Liver Function 12/29/24 12/30/24 Range/Units 13:28 05:00 Total Bilirubin 0.3 0.4 (0.2-1.3) mg/dL AST 15 L 15 L (17-59) U/L ALT 11 11 (6-50) U/L Alkaline Phosphatase 98 90 (38-126) U/L Albumin 2.8 L 2.7 L (3.5-5.1) g/dL Urine 02/28/24 Range/Units 13:44 Urine Color Light yellow (Yellow) Urine Appearance Turbid H (Clear) Urine pH 8.0 (5.0-9.0) Ur Specific Pearson 1.014 (1.001-1.035) Urine Protein 3+ H (Negative) mg/dL Urine Glucose (UA) Negative (Negative) mg/dL Quality VTE Prophylaxis VTE prophylaxis: pharmacologic ordered (Eliquis) Hospitalist MIPS Advance Care Plan I have confirmed that the patient's Advanced Care Plan is present, code status is documented, or surrogate decision maker is listed in patient medical record.: Yes Medication Reconciliation I have utilized all available resources to obtain, update and review the patients current medications (includes all prescriptions, OTC, herbals, cannabis, and nutritional supplements).: Yes
[2024-02-29] MEDS: VANCOMYCIN 1,500 MG/NS 500 ML 1,500 MG/500 ML BAG 250 MG IVPB (10:11)
--- NOTE | 2024-02-29 10:49 | P.CONUR_ITS ---
Urology Consult Note HPI Date Seen: 02/29/24 Requesting Physician: Paul Rosado MD Primary Care Provider: Asael Bravo, Consult Narrative Narrative: Taye Marrero Jr. is a 68 year old male FOR[facility] Past Medical History Medical History (Updated 02/28/24 @ 23:28 by Malorie Jones PA-C) Bacteremia due to Pseudomonas (01/2024) E coli bacteremia Chronic hyponatremia Chronic indwelling [place] catheter Chronic osteomyelitis of left foot Diastolic congestive heart failure Chronic obstructive pulmonary disease Gastroesophageal reflux disease Hypothyroidism Obstructive sleep apnea Non-compliant with CPAP. Paroxysmal atrial fibrillation Choledocholithiasis (05/2022) Kidney stones Peripheral neuropathy Depression Chronic venous insufficiency Morbid obesity Hyperlipidemia Hypertension Insulin dependent diabetes mellitus Surgical History Surgical History History of abdominal surgery The patient has a large scar in the right lower abdomen just above the right groin and on palpation of his abdomen he has what feels like mesh that extends from side to side and has a course rough texture it also extends from just under the umbilicus to a couple of inches above the pubis History of tonsillectomy and adenoidectomy History of hemorrhoidectomy History of cataract extraction History of back surgery History of appendectomy Family History Family History Sibling Family history of heart disease in male family member before age 55 Family history of diabetes mellitus in first degree relative Patient's brother is Family history of obesity Hypertension Mother Family history of arthritis Patient's mother is Father Patient's father is Social History Social History Social History: Surrogate medical decision maker: Marlys Marrero, . Code status: Full code. Smoking packs per day: 1.5 Smoking cigarettes per day: 30.0 Years smoked: 15 Smoking pack-years: 22.50 Smoking status: Never smoker Second hand tobacco smoke exposure: Yes Alcohol intake: never Substance use: never Substance use type: does not use Lack of Transportation: No Lack of Food: Never True Current Housing: I Have Housing Concerned About Future Housing: No Difficulty Paying Gas/Electric Bills: No Difficulty Paying for Meds: No Currently Unemployed: No Education: High School Diploma/GED Difficulty w/ Childcare or Family Care: No Living arrangements: detention Additional living arrangements comments: Resident at [facility]. to Marlys. They have 2 sons. He is nonambulatory and depends on a [place] lift for transfer. 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 Spiritual care concerns: No Agree to blood products: Yes Meds Home Medications and Allergies Home Medications ?Medication ?Instructions ?Recorded ?Confirmed ?Type ipratropium 0.5 mg-albuterol 3 mg 3 ml inhalation Q4H PRN Wheezing 02/15/21 02/29/24 History (2.5 mg base)/3 mL nebulization soln levothyroxine 100 mcg tablet 100 mcg PO DAILY 02/15/21 02/29/24 History pravastatin 40 mg tablet 40 mg PO HS 12/08/21 02/29/24 History multivitamin with minerals-folic 1 tablet PO DAILY 03/02/22 02/29/24 History acid 0.4 mg tablet apixaban 5 mg tablet (Eliquis) 5 mg PO Q12HR #60 tabs 07/01/22 02/29/24 Rx acetaminophen 325 mg capsule 650 mg PO Q4-6H PRN Pain (Scale 09/10/22 02/29/24 History (Tylenol) Score 1-3) sennosides 8.6 mg-docusate sodium 1 tablet PO BID 09/10/22 02/29/24 History 50 mg tablet (Senna Plus) melatonin 5 mg tablet 5 mg PO HS 03/10/23 02/29/24 History bupropion HCl 150 mg 24 hr tablet, 150 mg PO QAM #30 tabs 05/23/23 02/29/24 Rx extended release polyethylene glycol 3350 17 gram 17 g PO BID #30 ea 06/26/23 02/29/24 Rx oral powder packet (Miralax) insulin NPH-regular 70-30 U-100 25 unit subcut QAM 08/07/23 02/29/24 History insulin 100 unit/mL subcutaneous pen (Novolin 70-30 FlexPen U-100 Insulin) magnesium oxide 400 mg (241.3 mg 400 mg PO DAILY 08/07/23 02/29/24 History magnesium) tablet metoprolol succinate 25 mg 75 mg (3 x 25 mg) PO QAM #90 tabs 08/18/23 02/29/24 Rx tablet,extended release 24 hr (Toprol XL) nystatin 100,000 unit/gram topical 1 applic topical BID 11/30/23 02/29/24 History cream amlodipine 5 mg tablet (Norvasc) 5 mg PO DAILY #30 tabs 12/27/23 02/29/24 Rx famotidine 20 mg tablet 20 mg PO QHS #30 tabs 12/27/23 02/29/24 Rx insulin NPH-regular 70-30 U-100 15 unit (0.15 mL) subcut 1700 #15 12/27/23 02/29/24 Rx insulin 100 unit/mL subcutaneous mL pen (Novolin 70-30 FlexPen U-100 Insulin) lanolin alcohols-mineral 1 applic topical DAILY #113 grams 12/27/23 02/29/24 Rx oil-w.petrolatum-ceresin topical cream (Minerin Creme topical) pantoprazole 40 mg tablet,delayed 40 mg PO QAM #30 tabs 12/27/23 02/29/24 Rx release (Protonix) valsartan 40 mg tablet 40 mg PO DAILY #30 tabs 12/27/23 02/29/24 Rx brexpiprazole 0.5 mg tablet 0.5 mg PO DAILY 02/08/24 02/29/24 History (Rexulti) gabapentin 100 mg capsule 300 mg PO TID 02/08/24 02/29/24 History lisinopril 10 mg tablet 10 mg PO DAILY 02/08/24 02/29/24 History trazodone 50 mg tablet 75 mg PO HS 02/08/24 02/29/24 History Allergies Allergy/AdvReac Type Severity Reaction Status Date / Time No Known Allergies Allergy Verified 12/22/23 12:21 Vital Signs Vital Signs - 24 hr 02/28/24 13:13 02/28/24 13:40 02/28/24 13:43 Temperature 85.8 F L Pulse Rate 46 L 39 L Respiratory Rate 15 Blood Pressure 89/39 L 77/48 L Pulse Oximetry 92 Oxygen Delivery Room Air Fraction of Inspired Oxygen 02/28/24 14:03 02/28/24 14:05 02/28/24 14:14 Temperature 86.2 F L 86.2 F L Pulse Rate 43 L 52 L Respiratory Rate 14 Blood Pressure 81/44 L 95/61 L Pulse Oximetry 87 L Oxygen Delivery Fraction of Inspired Oxygen 02/28/24 14:15 02/28/24 14:17 02/28/24 14:17 Temperature 86.2 F L 86.3 F L 86.3 F L Pulse Rate 47 L 49 L Respiratory Rate 15 14 Blood Pressure 99/57 L Pulse Oximetry 73 L 92 Oxygen Delivery Fraction of Inspired Oxygen 02/28/24 14:22 02/28/24 14:25 02/28/24 14:29 Temperature 86.3 F L 86.4 F L 86.5 F L Pulse Rate 53 L 54 L 52 L Respiratory Rate 16 16 12 Blood Pressure 89/72 L 99/70 L 98/59 L Pulse Oximetry 99 100 97 Oxygen Delivery Fraction of Inspired Oxygen 02/28/24 14:40 02/28/24 15:14 02/28/24 15:16 Temperature 87.7 F L Pulse Rate 54 L 42 L 39 L Respiratory Rate 21 H 12 Blood Pressure 75/49 L 82/52 L Pulse Oximetry 100 100 Oxygen Delivery BiPAP Fraction of Inspired Oxygen 02/28/24 15:17 02/28/24 15:21 02/28/24 15:49 Temperature 87.8 F L 88.5 F L Pulse Rate 36 L Respiratory Rate 15 Blood Pressure 82/50 L Pulse Oximetry 97 Oxygen Delivery Fraction of Inspired Oxygen 02/28/24 15:50 02/28/24 16:51 02/28/24 16:52 Temperature 89.6 F L 89.7 F L Pulse Rate 50 L 40 L 40 L Respiratory Rate 16 17 16 Blood Pressure 92/54 L Pulse Oximetry 98 98 97 Oxygen Delivery BiPAP Fraction of Inspired Oxygen 02/28/24 16:56 02/28/24 16:57 02/28/24 17:02 Temperature 89.8 F L 89.9 F L Pulse Rate 38 L 39 L Respiratory Rate 12 12 Blood Pressure 88/51 L 85/45 L Pulse Oximetry 98 99 97 Oxygen Delivery BiPAP Fraction of Inspired Oxygen 02/28/24 17:03 02/28/24 17:04 02/28/24 17:26 Temperature 89.9 F L 90.0 F L Pulse Rate 40 L 42 L 31 L Respiratory Rate 12 12 Blood Pressure 87/46 L 75/49 L Pulse Oximetry 97 Oxygen Delivery Fraction of Inspired Oxygen 02/28/24 18:04 02/28/24 18:11 02/28/24 18:15 Temperature Pulse Rate 41 L 38 L 42 L Respiratory Rate Blood Pressure 82/48 L 79/53 L 114/58 L Pulse Oximetry Oxygen Delivery Fraction of Inspired Oxygen 02/28/24 18:17 02/28/24 18:25 02/28/24 18:34 Temperature Pulse Rate 49 L 55 L 61 Respiratory Rate Blood Pressure 110/56 L 135/68 Pulse Oximetry 100 Oxygen Delivery Mechanical Ventilation Fraction of Inspired Oxygen 60 02/28/24 18:36 02/28/24 18:41 02/28/24 18:55 Temperature Pulse Rate 66 71 Respiratory Rate 20 Blood Pressure 126/65 Pulse Oximetry Oxygen Delivery Fraction of Inspired Oxygen 50 02/28/24 19:05 02/28/24 19:11 02/28/24 19:12 Temperature 92.6 F L Pulse Rate 76 80 80 Respiratory Rate 20 20 Blood Pressure 119/75 118/63 Pulse Oximetry 100 Oxygen Delivery Fraction of Inspired Oxygen 02/28/24 19:15 02/28/24 19:18 02/28/24 19:21 Temperature 92.6 F L 92.7 F L 92.7 F L Pulse Rate 76 80 75 Respiratory Rate 20 20 20 Blood Pressure 124/68 112/66 117/68 Pulse Oximetry 100 100 99 Oxygen Delivery Fraction of Inspired Oxygen 02/28/24 19:24 02/28/24 19:27 02/28/24 19:30 Temperature 92.8 F L 92.9 F L 92.9 F L Pulse Rate 89 92 78 Respiratory Rate 20 20 20 Blood Pressure 119/55 L 115/58 L 119/69 Pulse Oximetry 100 99 100 Oxygen Delivery Fraction of Inspired Oxygen 02/28/24 19:31 02/28/24 19:33 02/28/24 19:36 Temperature 92.9 F L 93.0 F L 93.0 F L Pulse Rate 81 81 77 Respiratory Rate 20 20 20 Blood Pressure 118/69 117/72 Pulse Oximetry 100 99 99 Oxygen Delivery Fraction of Inspired Oxygen 02/28/24 19:39 02/28/24 19:42 02/28/24 19:45 Temperature 93.1 F L 93.1 F L 93.2 F L Pulse Rate 73 85 81 Respiratory Rate 20 20 20 Blood Pressure 116/49 L 116/64 119/59 L Pulse Oximetry 99 100 100 Oxygen Delivery Fraction of Inspired Oxygen 02/28/24 19:46 02/28/24 19:48 02/28/24 19:51 Temperature 93.2 F L 93.2 F L 93.3 F L Pulse Rate 84 84 77 Respiratory Rate 20 20 20 Blood Pressure 112/66 115/65 Pulse Oximetry 99 100 99 Oxygen Delivery Fraction of Inspired Oxygen 02/28/24 19:54 02/28/24 19:57 02/28/24 20:00 Temperature 93.4 F L 93.4 F L 93.5 F L Pulse Rate 89 88 79 Respiratory Rate 20 20 20 Blood Pressure 116/69 121/61 117/64 Pulse Oximetry 99 100 99 Oxygen Delivery Fraction of Inspired Oxygen 02/28/24 20:01 02/28/24 20:03 02/28/24 20:06 Temperature 93.5 F L 93.5 F L 93.6 F L Pulse Rate 87 91 79 Respiratory Rate 20 20 20 Blood Pressure 117/63 117/61 Pulse Oximetry 99 100 99 Oxygen Delivery Fraction of Inspired Oxygen 02/28/24 20:09 02/28/24 20:12 02/28/24 20:15 Temperature 93.7 F L 93.7 F L 93.8 F L Pulse Rate 80 82 79 Respiratory Rate 20 20 20 Blood Pressure 114/54 L 117/66 109/69 Pulse Oximetry 99 100 99 Oxygen Delivery Fraction of Inspired Oxygen 02/28/24 20:16 02/28/24 20:18 02/28/24 20:21 Temperature 93.8 F L 93.8 F L 93.9 F L Pulse Rate 87 82 87 Respiratory Rate 20 20 20 Blood Pressure 112/64 111/64 Pulse Oximetry 99 99 99 Oxygen Delivery Fraction of Inspired Oxygen 02/28/24 20:24 02/28/24 20:27 02/28/24 20:30 Temperature 94.0 F L 94.0 F L 94.1 F L Pulse Rate 84 77 79 Respiratory Rate 20 20 20 Blood Pressure 118/54 L 112/67 117/68 Pulse Oximetry 99 99 99 Oxygen Delivery Fraction of Inspired Oxygen 02/28/24 20:31 02/28/24 20:33 02/28/24 20:36 Temperature 94.1 F L 94.1 F L 94.2 F L Pulse Rate 84 77 86 Respiratory Rate 20 20 20 Blood Pressure 117/58 L 117/61 Pulse Oximetry 99 99 99 Oxygen Delivery Fraction of Inspired Oxygen 02/28/24 20:39 02/28/24 20:42 02/28/24 20:45 Temperature 94.2 F L 94.3 F L 94.4 F L Pulse Rate 87 86 98 Respiratory Rate 20 20 26 H Blood Pressure 121/60 114/67 112/71 Pulse Oximetry 99 99 99 Oxygen Delivery Fraction of Inspired Oxygen 02/28/24 20:46 02/28/24 20:48 02/28/24 20:51 Temperature 94.4 F L 94.4 F L 94.5 F L Pulse Rate 95 97 88 Respiratory Rate 20 20 20 Blood Pressure 122/58 L 112/67 Pulse Oximetry Oxygen Delivery Fraction of Inspired Oxygen 02/28/24 20:54 02/28/24 20:57 02/28/24 21:00 Temperature 94.5 F L 94.6 F L 94.6 F L Pulse Rate 85 82 81 Respiratory Rate 20 20 20 Blood Pressure 115/61 119/63 119/66 Pulse Oximetry Oxygen Delivery Fraction of Inspired Oxygen 02/28/24 21:01 02/28/24 21:03 02/28/24 21:06 Temperature 94.7 F L 94.7 F L 94.8 F L Pulse Rate 88 77 79 Respiratory Rate 20 20 20 Blood Pressure 121/52 L 114/60 Pulse Oximetry 99 Oxygen Delivery Fraction of Inspired Oxygen 02/28/24 21:09 02/28/24 21:10 02/28/24 21:12 Temperature 94.9 F L Pulse Rate 85 86 93 Respiratory Rate 22 H Blood Pressure 114/60 107/60 103/85 Pulse Oximetry 100 Oxygen Delivery Fraction of Inspired Oxygen 02/28/24 21:15 02/28/24 21:15 02/28/24 21:16 Temperature 94.9 F L 95.0 F L Pulse Rate 84 91 86 Respiratory Rate 20 20 20 Blood Pressure 113/62 Pulse Oximetry 99 99 Oxygen Delivery Fraction of Inspired Oxygen 02/28/24 21:18 02/28/24 21:19 02/28/24 21:21 Temperature 95.0 F L 95.0 F L 95.1 F L Pulse Rate 86 86 84 Respiratory Rate 20 20 20 Blood Pressure 104/49 L 106/61 Pulse Oximetry 99 99 99 Oxygen Delivery Fraction of Inspired Oxygen 02/28/24 21:24 02/28/24 21:27 02/28/24 21:30 Temperature 95.1 F L 95.2 F L 95.2 F L Pulse Rate 69 78 85 Respiratory Rate 20 20 20 Blood Pressure 104/54 L 109/62 104/53 L Pulse Oximetry 99 100 99 Oxygen Delivery Fraction of Inspired Oxygen 02/28/24 21:31 02/28/24 21:33 02/28/24 21:36 Temperature 95.3 F L 95.3 F L 95.3 F L Pulse Rate 83 77 75 Respiratory Rate 20 20 20 Blood Pressure 104/51 L 104/52 L Pulse Oximetry 99 99 99 Oxygen Delivery Fraction of Inspired Oxygen 02/28/24 21:39 02/28/24 21:42 02/28/24 21:45 Temperature 95.4 F L 95.4 F L 95.5 F L Pulse Rate 81 79 76 Respiratory Rate 20 20 20 Blood Pressure 108/66 108/55 L 104/60 Pulse Oximetry 99 99 99 Oxygen Delivery Fraction of Inspired Oxygen 02/28/24 21:46 02/28/24 21:48 02/28/24 21:51 Temperature 95.5 F L 95.5 F L 95.6 F L Pulse Rate 78 73 80 Respiratory Rate 20 20 20 Blood Pressure 100/61 104/59 L Pulse Oximetry 99 99 98 Oxygen Delivery Fraction of Inspired Oxygen 02/28/24 21:54 02/28/24 21:55 02/28/24 21:57 Temperature 95.7 F L 95.7 F L Pulse Rate 83 85 92 Respiratory Rate 20 20 Blood Pressure 106/64 Pulse Oximetry 99 99 99 Oxygen Delivery Mechanical Ventilation Fraction of Inspired Oxygen 50 02/28/24 22:12 02/28/24 22:14 02/28/24 22:15 Temperature 96.0 F L 96.0 F L 96.0 F L Pulse Rate 81 80 78 Respiratory Rate 20 20 20 Blood Pressure 102/58 L Pulse Oximetry 100 99 99 Oxygen Delivery Fraction of Inspired Oxygen 02/28/24 22:17 02/28/24 22:19 02/28/24 22:22 Temperature 96.1 F L 96.1 F L 96.1 F L Pulse Rate 87 88 74 Respiratory Rate 20 20 20 Blood Pressure 103/60 109/57 L 106/56 L Pulse Oximetry 100 100 100 Oxygen Delivery Fraction of Inspired Oxygen 02/28/24 22:25 02/28/24 22:28 02/28/24 22:30 Temperature 96.2 F L 96.2 F L 96.3 F L Pulse Rate 88 78 83 Respiratory Rate 20 20 20 Blood Pressure 103/49 L 106/64 Pulse Oximetry 100 100 100 Oxygen Delivery Fraction of Inspired Oxygen 02/28/24 22:31 02/28/24 22:34 02/28/24 22:37 Temperature 96.3 F L 96.3 F L 96.4 F L Pulse Rate 76 86 81 Respiratory Rate 20 20 20 Blood Pressure 107/54 L 110/57 L 106/53 L Pulse Oximetry 100 99 100 Oxygen Delivery Fraction of Inspired Oxygen 02/28/24 22:40 02/28/24 22:43 02/28/24 22:45 Temperature 96.4 F L 96.5 F L 96.5 F L Pulse Rate 90 86 86 Respiratory Rate 20 20 20 Blood Pressure 108/49 L 106/56 L Pulse Oximetry 100 100 100 Oxygen Delivery Fraction of Inspired Oxygen 02/28/24 22:46 02/28/24 22:49 02/28/24 22:52 Temperature 96.5 F L 96.6 F L 96.6 F L Pulse Rate 87 75 82 Respiratory Rate 20 20 20 Blood Pressure 106/63 106/52 L 112/50 L Pulse Oximetry 100 100 100 Oxygen Delivery Fraction of Inspired Oxygen 02/28/24 22:55 02/28/24 23:25 02/28/24 23:26 Temperature 96.7 F L Pulse Rate 83 81 91 Respiratory Rate 20 20 Blood Pressure 109/53 L Pulse Oximetry 100 97 Oxygen Delivery Mechanical Ventilation Fraction of Inspired Oxygen 50 02/28/24 23:30 02/28/24 23:30 02/28/24 23:45 Temperature 96.4 F L Pulse Rate 89 88 82 Respiratory Rate 16 20 Blood Pressure 87/45 L 87/45 L Pulse Oximetry 100 96 Oxygen Delivery Fraction of Inspired Oxygen 02/29/24 00:00 02/29/24 00:00 02/29/24 00:00 Temperature Pulse Rate 80 80 Respiratory Rate 20 Blood Pressure 102/48 L Pulse Oximetry Oxygen Delivery Fraction of Inspired Oxygen 50 02/29/24 00:00 02/29/24 00:00 02/29/24 00:00 Temperature Pulse Rate 80 80 72 Respiratory Rate 20 20 Blood Pressure 102/48 L Pulse Oximetry Oxygen Delivery Fraction of Inspired Oxygen 02/29/24 00:00 02/29/24 01:00 02/29/24 01:00 Temperature Pulse Rate 73 73 Respiratory Rate 20 Blood Pressure 103/58 L Pulse Oximetry Oxygen Delivery Mechanical Ventilation Fraction of Inspired Oxygen 50 02/29/24 01:00 02/29/24 02:00 02/29/24 02:00 Temperature Pulse Rate 73 62 56 L Respiratory Rate 20 Blood Pressure 103/58 L 104/56 L Pulse Oximetry 96 Oxygen Delivery Fraction of Inspired Oxygen 02/29/24 02:00 02/29/24 02:00 02/29/24 02:00 Temperature Pulse Rate 70 70 Respiratory Rate 20 Blood Pressure 104/56 L Pulse Oximetry Oxygen Delivery Fraction of Inspired Oxygen 40 02/29/24 02:00 02/29/24 02:00 02/29/24 02:22 Temperature Pulse Rate 70 70 69 Respiratory Rate 20 Blood Pressure 104/56 L Pulse Oximetry 97 Oxygen Delivery Mechanical Ventilation Fraction of Inspired Oxygen 40 02/29/24 02:45 02/29/24 03:00 02/29/24 03:00 Temperature Pulse Rate 66 66 71 Respiratory Rate Blood Pressure 105/53 L 97/53 L 97/53 L Pulse Oximetry Oxygen Delivery Fraction of Inspired Oxygen 02/29/24 04:00 02/29/24 04:00 02/29/24 04:00 Temperature Pulse Rate 68 66 Respiratory Rate Blood Pressure 81/44 L Pulse Oximetry Oxygen Delivery Fraction of Inspired Oxygen 35 02/29/24 04:00 02/29/24 04:00 02/29/24 04:00 Temperature 96.4 F L Pulse Rate 66 68 Respiratory Rate 20 Blood Pressure 89/51 L 89/51 L Pulse Oximetry 96 Oxygen Delivery Mechanical Ventilation Fraction of Inspired Oxygen 35 02/29/24 04:00 02/29/24 04:00 02/29/24 04:15 Temperature Pulse Rate 66 68 68 Respiratory Rate 20 20 Blood Pressure 81/44 L Pulse Oximetry Oxygen Delivery Fraction of Inspired Oxygen 02/29/24 04:15 02/29/24 04:30 02/29/24 05:00 Temperature Pulse Rate 68 67 67 Respiratory Rate Blood Pressure 81/44 L 94/50 L 88/44 L Pulse Oximetry Oxygen Delivery Fraction of Inspired Oxygen 02/29/24 05:06 02/29/24 05:30 02/29/24 06:00 Temperature Pulse Rate 62 61 62 Respiratory Rate Blood Pressure 89/53 L Pulse Oximetry 96 Oxygen Delivery Mechanical Ventilation Fraction of Inspired Oxygen 35 02/29/24 06:00 02/29/24 06:00 02/29/24 06:00 Temperature 96.7 F L Pulse Rate 62 62 62 Respiratory Rate 20 Blood Pressure 90/46 L 90/46 L 90/46 L Pulse Oximetry 96 Oxygen Delivery Fraction of Inspired Oxygen 02/29/24 06:00 02/29/24 06:00 02/29/24 07:00 Temperature Pulse Rate 62 62 61 Respiratory Rate 20 20 20 Blood Pressure Pulse Oximetry Oxygen Delivery Fraction of Inspired Oxygen 02/29/24 07:00 02/29/24 07:25 02/29/24 08:00 Temperature 96.8 F L Pulse Rate 61 55 L 67 Respiratory Rate 20 20 Blood Pressure 104/49 L 109/55 L Pulse Oximetry 96 Oxygen Delivery Fraction of Inspired Oxygen 02/29/24 08:00 02/29/24 08:00 02/29/24 08:00 Temperature Pulse Rate 66 73 Respiratory Rate Blood Pressure 109/55 L Pulse Oximetry 96 Oxygen Delivery Mechanical Ventilation Fraction of Inspired Oxygen 30 02/29/24 08:00 02/29/24 08:00 02/29/24 08:14 Temperature Pulse Rate 67 74 Respiratory Rate 20 Blood Pressure Pulse Oximetry 96 Oxygen Delivery Mechanical Ventilation Fraction of Inspired Oxygen 30 35 02/29/24 08:14 02/29/24 08:38 02/29/24 08:39 Temperature Pulse Rate 74 68 68 Respiratory Rate 16 20 Blood Pressure 116/62 Pulse Oximetry Oxygen Delivery Fraction of Inspired Oxygen 02/29/24 09:35 02/29/24 10:00 02/29/24 10:00 Temperature Pulse Rate 79 70 73 Respiratory Rate 16 Blood Pressure 97/55 L Pulse Oximetry Oxygen Delivery Fraction of Inspired Oxygen 02/29/24 10:00 02/29/24 10:00 02/29/24 10:00 Temperature Pulse Rate 73 73 73 Respiratory Rate 20 20 Blood Pressure 97/55 L Pulse Oximetry Oxygen Delivery Fraction of Inspired Oxygen 02/29/24 10:00 Temperature 96.8 F L Pulse Rate 73 Respiratory Rate 20 Blood Pressure 97/55 L Pulse Oximetry 95 Oxygen Delivery Fraction of Inspired Oxygen Results Labs 02/29/24 05:00 02/29/24 05:00 Labs: Short CBC 02/28/24 02/29/24 Range/Units 13:28 05:00 WBC 2.3 L 4.8 (4.5-10.0) K/mm3 Hgb 8.4 L 7.9 L (14.0-18.0) g/dL Hct 27.3 L 25.5 L (42.0-52.0) % Plt Count 284 311 (150-375) k/mm3 BMP 02/28/24 02/29/24 02/29/24 13: 00:15 05:00 Sodium 134 L 135 L 136 L Potassium 5.3 H 5.5 H 5.2 H Chloride 110 H 111 H 111 H Carbon Dioxide 22 22 22 BUN 45 H D 42 H 41 H Creatinine 1.50 H 1.40 H 1.50 H Glucose 133 H 204 H 191 H Calcium 9.7 9.5 9.3 Cardiac Enzymes 02/28/24 02/28/24 02/29/24 Range/Units 13:28 17:13 00:15 Troponin I < 0.012 < 0.012 < 0.012 (0.000-0.034) ng/mL Liver Function 02/28/24 02/29/24 Range/Units 13:28 05:00 Total Bilirubin 0.3 0.4 (0.2-1.3) mg/dL AST 15 L 15 L (17-59) U/L ALT 11 11 (6-50) U/L Alkaline Phosphatase 98 90 (38-126) U/L Albumin 2.8 L 2.7 L (3.5-5.1) g/dL Urine 02/28/24 Range/Units 13:44 Urine Color Light yellow (Yellow) Urine Appearance Turbid H (Clear) Urine pH 8.0 (5.0-9.0) Ur Specific [place] 1.014 (1.001-1.035) Urine Protein 3+ H (Negative) mg/dL Urine Glucose (UA) Negative (Negative) mg/dL
[2024-02-29 11:42] LABS: Creatine Kinase < 20 U/L (55-170)
[2024-02-29 11:58] LABS: Glucose Point of Care 124 mg/dl (65-105)
--- NOTE | 2024-02-29 11:59 | P.CONCA_ITS ---
Assessment and Plan Assessment and plan (1) Bradycardia: Code(s): R00.1 - Bradycardia, unspecified Status: Acute (2) Paroxysmal atrial fibrillation: Code(s): I48.0 - Paroxysmal atrial fibrillation Status: Acute Plan 1. Paroxysmal atrial fibrillation Chads Vasc 3 2. Diastolic CHF 3. Anemia 4. Sepsis/metabolic encephalopathy 5. COPD -most likely the bradycardia was secondary to hypothermia. He does have subclinical hypothyroidism as well. Currently no invasive evaluation is needed. -we will wean dopamine when his hemodynamics allow and continue to monitor his ventricular rates. Avoid AV dolores agents for now -he is on anticoagulation for his paroxysmal atrial fibrillation. His hemoglobin has since decreased significantly from his prior hemoglobin in November and it is currently 7.9. He has a history of heme-positive stool loose stools. GI evaluation will help. History of Present Illness History of Present Illness Consult date/time: 02/29/24 11:59 Reason For Visit: Sepsis Narrative: Taye Marrero Jr. is a 68 year old male with significant past medical history of diastolic CHF, PAF, chronic indwelling catheter with recurrent UTIs, osteomyelitis of the left foot, COPD, GERD, hypothyroidism, paroxysmal AFib, history of kidney stones, peripheral neuropathy, depression, hyperlipidemia, essential hypertension, insulin-dependent diabetes who was admitted with suspected UTI, sepsis, metabolic encephalopathy, hypothermia, hypotension and bradycardia. Currently he is intubated and on levophed/Dopamine to help maintain hemodynamics. Cardiology consulted for bradycardia. His heart rate has improved after the improved blood pressure and normal terminal. EKG shows AFib with controlled ventricular rate now Has been negative On low-dose Levophed and dopamine Review of Systems 2 Review of Systems: ROS unobtainable: Yes unobtainable due to endotracheal tube, unobtainable due to medical condition and unobtainable due to mental status [facility] Past Medical History Medical History (Updated 02/28/24 @ 23:28 by Malorie Jones PA-C) Bacteremia due to Pseudomonas (01/2024) E coli bacteremia Chronic hyponatremia Chronic indwelling Coats catheter Chronic osteomyelitis of left foot Diastolic congestive heart failure Chronic obstructive pulmonary disease Gastroesophageal reflux disease Hypothyroidism Obstructive sleep apnea Non-compliant with CPAP. Paroxysmal atrial fibrillation Choledocholithiasis (05/2022) Kidney stones Peripheral neuropathy Depression Chronic venous insufficiency Morbid obesity Hyperlipidemia Hypertension Insulin dependent diabetes mellitus Surgical History Surgical History History of abdominal surgery The patient has a large scar in the right lower abdomen just above the right groin and on palpation of his abdomen he has what feels like mesh that extends from side to side and has a course rough texture it also extends from just under the umbilicus to a couple of inches above the pubis History of tonsillectomy and adenoidectomy History of hemorrhoidectomy History of cataract extraction History of back surgery History of appendectomy Family History Family History Sibling Family history of heart disease in male family member before age 55 Family history of diabetes mellitus in first degree relative Patient's brother is Family history of obesity Hypertension Mother Family history of arthritis Patient's mother is Father Patient's father is Social History Social History Social History: Surrogate medical decision maker: Marlys Marrero, . Code status: Full code. Smoking packs per day: 1.5 Smoking cigarettes per day: 30.0 Years smoked: 15 Smoking pack-years: 22.50 Smoking status: Never smoker Second hand tobacco smoke exposure: Yes Alcohol intake: never Substance use: never Substance use type: does not use Lack of Transportation: No Lack of Food: Never True Current Housing: I Have Housing Concerned About Future Housing: No Difficulty Paying Gas/Electric Bills: No Difficulty Paying for Meds: No Currently Unemployed: No Education: High School Diploma/GED Difficulty w/ Childcare or Family Care: No Living arrangements: [facility] Additional living arrangements comments: Resident at [facility]. to Marlys. They have 2 sons. He is nonambulatory and depends on a [place] lift for transfer. 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 Spiritual care concerns: No Agree to blood products: Yes Meds Home Medications and Allergies Home Medications ?Medication ?Instructions ?Recorded ?Confirmed ?Type ipratropium 0.5 mg-albuterol 3 mg 3 ml inhalation Q4H PRN Wheezing 02/15/21 02/29/24 History (2.5 mg base)/3 mL nebulization soln levothyroxine 100 mcg tablet 100 mcg PO DAILY 02/15/21 02/29/24 History pravastatin 40 mg tablet 40 mg PO HS 12/08/21 02/29/24 History multivitamin with minerals-folic 1 tablet PO DAILY 03/02/22 02/29/24 History acid 0.4 mg tablet apixaban 5 mg tablet (Eliquis) 5 mg PO Q12HR #60 tabs 07/01/22 02/29/24 Rx acetaminophen 325 mg capsule 650 mg PO Q4-6H PRN Pain (Scale 09/10/22 02/29/24 History (Tylenol) Score 1-3) sennosides 8.6 mg-docusate sodium 1 tablet PO BID 09/10/22 02/29/24 History 50 mg tablet (Senna Plus) melatonin 5 mg tablet 5 mg PO HS 03/10/23 02/29/24 History bupropion HCl 150 mg 24 hr tablet, 150 mg PO QAM #30 tabs 05/23/23 02/29/24 Rx extended release polyethylene glycol 3350 17 gram 17 g PO BID #30 ea 06/26/23 02/29/24 Rx oral powder packet (Miralax) insulin NPH-regular 70-30 U-100 25 unit subcut QAM 08/07/23 02/29/24 History insulin 100 unit/mL subcutaneous pen (Novolin 70-30 FlexPen U-100 Insulin) magnesium oxide 400 mg (241.3 mg 400 mg PO DAILY 08/07/23 02/29/24 History magnesium) tablet metoprolol succinate 25 mg 75 mg (3 x 25 mg) PO QAM #90 tabs 08/18/23 02/29/24 Rx tablet,extended release 24 hr (Toprol XL) nystatin 100,000 unit/gram topical 1 applic topical BID 11/30/23 02/29/24 History cream amlodipine 5 mg tablet (Norvasc) 5 mg PO DAILY #30 tabs 12/27/23 02/29/24 Rx famotidine 20 mg tablet 20 mg PO QHS #30 tabs 12/27/23 02/29/24 Rx insulin NPH-regular 70-30 U-100 15 unit (0.15 mL) subcut 1700 #15 12/27/23 02/29/24 Rx insulin 100 unit/mL subcutaneous mL pen (Novolin 70-30 FlexPen U-100 Insulin) lanolin alcohols-mineral 1 applic topical DAILY #113 grams 12/27/23 02/29/24 Rx oil-w.petrolatum-ceresin topical cream (Minerin Creme topical) pantoprazole 40 mg tablet,delayed 40 mg PO QAM #30 tabs 12/27/23 02/29/24 Rx release (Protonix) valsartan 40 mg tablet 40 mg PO DAILY #30 tabs 12/27/23 02/29/24 Rx brexpiprazole 0.5 mg tablet 0.5 mg PO DAILY 02/08/24 02/29/24 History (Rexulti) gabapentin 100 mg capsule 300 mg PO TID 02/08/24 02/29/24 History lisinopril 10 mg tablet 10 mg PO DAILY 02/08/24 02/29/24 History trazodone 50 mg tablet 75 mg PO HS 02/08/24 02/29/24 History Allergies Allergy/AdvReac Type Severity Reaction Status Date / Time No Known Allergies Allergy Verified 12/22/23 12:21 Vital Signs Vital Signs - 24 hr 02/28/24 13:13 02/28/24 13:40 02/28/24 13:43 Temperature 29.9 C L Pulse Rate 46 L 39 L Respiratory Rate 15 Blood Pressure 89/39 L 77/48 L Pulse Oximetry 92 Oxygen Delivery Room Air Fraction of Inspired Oxygen 02/28/24 14:03 02/28/24 14:05 02/28/24 14:14 Temperature 30.1 C L 30.1 C L Pulse Rate 43 L 52 L Respiratory Rate 14 Blood Pressure 81/44 L 95/61 L Pulse Oximetry 87 L Oxygen Delivery Fraction of Inspired Oxygen 02/28/24 14:15 02/28/24 14:17 02/28/24 14:17 Temperature 30.1 C L 30.2 C L 30.2 C L Pulse Rate 47 L 49 L Respiratory Rate 15 14 Blood Pressure 99/57 L Pulse Oximetry 73 L 92 Oxygen Delivery Fraction of Inspired Oxygen 02/28/24 14:22 02/28/24 14:25 02/28/24 14:29 Temperature 30.2 C L 30.2 C L 30.3 C L Pulse Rate 53 L 54 L 52 L Respiratory Rate 16 16 12 Blood Pressure 89/72 L 99/70 L 98/59 L Pulse Oximetry 99 100 97 Oxygen Delivery Fraction of Inspired Oxygen 02/28/24 14:40 02/28/24 15:14 02/28/24 15:16 Temperature 30.9 C L Pulse Rate 54 L 42 L 39 L Respiratory Rate 21 H 12 Blood Pressure 75/49 L 82/52 L Pulse Oximetry 100 100 Oxygen Delivery BiPAP Fraction of Inspired Oxygen 02/28/24 15:17 02/28/24 15:21 02/28/24 15:49 Temperature 31.0 C L 31.4 C L Pulse Rate 36 L Respiratory Rate 15 Blood Pressure 82/50 L Pulse Oximetry 97 Oxygen Delivery Fraction of Inspired Oxygen 02/28/24 15:50 02/28/24 16:51 02/28/24 16:52 Temperature 32.0 C L 32.1 C L Pulse Rate 50 L 40 L 40 L Respiratory Rate 16 17 16 Blood Pressure 92/54 L Pulse Oximetry 98 98 97 Oxygen Delivery BiPAP Fraction of Inspired Oxygen 02/28/24 16:56 02/28/24 16:57 02/28/24 17:02 Temperature 32.1 C L 32.2 C L Pulse Rate 38 L 39 L Respiratory Rate 12 12 Blood Pressure 88/51 L 85/45 L Pulse Oximetry 98 99 97 Oxygen Delivery BiPAP Fraction of Inspired Oxygen 02/28/24 17:03 02/28/24 17:04 02/28/24 17:26 Temperature 32.2 C L 32.2 C L Pulse Rate 40 L 42 L 31 L Respiratory Rate 12 12 Blood Pressure 87/46 L 75/49 L Pulse Oximetry 97 Oxygen Delivery Fraction of Inspired Oxygen 02/28/24 18:04 02/28/24 18:11 02/28/24 18:15 Temperature Pulse Rate 41 L 38 L 42 L Respiratory Rate Blood Pressure 82/48 L 79/53 L 114/58 L Pulse Oximetry Oxygen Delivery Fraction of Inspired Oxygen 02/28/24 18:17 02/28/24 18:25 02/28/24 18:34 Temperature Pulse Rate 49 L 55 L 61 Respiratory Rate Blood Pressure 110/56 L 135/68 Pulse Oximetry 100 Oxygen Delivery Mechanical Ventilation Fraction of Inspired Oxygen 60 02/28/24 18:36 02/28/24 18:41 02/28/24 18:55 Temperature Pulse Rate 66 71 Respiratory Rate 20 Blood Pressure 126/65 Pulse Oximetry Oxygen Delivery Fraction of Inspired Oxygen 50 02/28/24 19:05 12/29/24 19:11 02/28/24 19:12 Temperature 33.7 C L Pulse Rate 76 80 80 Respiratory Rate 20 20 Blood Pressure 119/75 118/63 Pulse Oximetry 100 Oxygen Delivery Fraction of Inspired Oxygen 02/28/24 19:15 02/28/24 19:18 02/28/24 19:21 Temperature 33.7 C L 33.7 C L 33.7 C L Pulse Rate 76 80 75 Respiratory Rate 20 20 20 Blood Pressure 124/68 112/66 117/68 Pulse Oximetry 100 100 99 Oxygen Delivery Fraction of Inspired Oxygen 02/28/24 19:24 02/28/24 19:27 02/28/24 19:30 Temperature 33.8 C L 33.8 C L 33.8 C L Pulse Rate 89 92 78 Respiratory Rate 20 20 20 Blood Pressure 119/55 L 115/58 L 119/69 Pulse Oximetry 100 99 100 Oxygen Delivery Fraction of Inspired Oxygen 02/28/24 19:31 02/28/24 19:33 02/28/24 19:36 Temperature 33.8 C L 33.9 C L 33.9 C L Pulse Rate 81 81 77 Respiratory Rate 20 20 20 Blood Pressure 118/69 117/72 Pulse Oximetry 100 99 99 Oxygen Delivery Fraction of Inspired Oxygen 02/28/24 19:39 02/28/24 19:42 02/28/24 19:45 Temperature 33.9 C L 33.9 C L 34.0 C L Pulse Rate 73 85 81 Respiratory Rate 20 20 20 Blood Pressure 116/49 L 116/64 119/59 L Pulse Oximetry 99 100 100 Oxygen Delivery Fraction of Inspired Oxygen 02/28/24 19:46 02/28/24 19:48 02/28/24 19:51 Temperature 34.0 C L 34.0 C L 34.1 C L Pulse Rate 84 84 77 Respiratory Rate 20 20 20 Blood Pressure 112/66 115/65 Pulse Oximetry 99 100 99 Oxygen Delivery Fraction of Inspired Oxygen 02/28/24 19:54 02/28/24 19:57 02/28/24 20:00 Temperature 34.1 C L 34.1 C L 34.2 C L Pulse Rate 89 88 79 Respiratory Rate 20 20 20 Blood Pressure 116/69 121/61 117/64 Pulse Oximetry 99 100 99 Oxygen Delivery Fraction of Inspired Oxygen 02/28/24 20:01 02/28/24 20:03 02/28/24 20:06 Temperature 34.2 C L 34.2 C L 34.2 C L Pulse Rate 87 91 79 Respiratory Rate 20 20 20 Blood Pressure 117/63 117/61 Pulse Oximetry 99 100 99 Oxygen Delivery Fraction of Inspired Oxygen 02/28/24 20:09 02/28/24 20:12 02/28/24 20:15 Temperature 34.3 C L 34.3 C L 34.3 C L Pulse Rate 80 82 79 Respiratory Rate 20 20 20 Blood Pressure 114/54 L 117/66 109/69 Pulse Oximetry 99 100 99 Oxygen Delivery Fraction of Inspired Oxygen 02/28/24 20:16 02/28/24 20:18 02/28/24 20:21 Temperature 34.3 C L 34.3 C L 34.4 C L Pulse Rate 87 82 87 Respiratory Rate 20 20 20 Blood Pressure 112/64 111/64 Pulse Oximetry 99 99 99 Oxygen Delivery Fraction of Inspired Oxygen 02/28/24 20:24 02/28/24 20:27 02/28/24 20:30 Temperature 34.4 C L 34.4 C L 34.5 C L Pulse Rate 84 77 79 Respiratory Rate 20 20 20 Blood Pressure 118/54 L 112/67 117/68 Pulse Oximetry 99 99 99 Oxygen Delivery Fraction of Inspired Oxygen 02/28/24 20:31 02/28/24 20:33 02/28/24 20:36 Temperature 34.5 C L 34.5 C L 34.6 C L Pulse Rate 84 77 86 Respiratory Rate 20 20 20 Blood Pressure 117/58 L 117/61 Pulse Oximetry 99 99 99 Oxygen Delivery Fraction of Inspired Oxygen 02/28/24 20:39 02/28/24 20:42 02/28/24 20:45 Temperature 34.6 C L 34.6 C L 34.7 C L Pulse Rate 87 86 98 Respiratory Rate 20 20 26 H Blood Pressure 121/60 114/67 112/71 Pulse Oximetry 99 99 99 Oxygen Delivery Fraction of Inspired Oxygen 02/28/24 20:46 02/28/24 20:48 02/28/24 20:51 Temperature 34.7 C L 34.7 C L 34.7 C L Pulse Rate 95 97 88 Respiratory Rate 20 20 20 Blood Pressure 122/58 L 112/67 Pulse Oximetry Oxygen Delivery Fraction of Inspired Oxygen 02/28/24 20:54 02/28/24 20:57 02/28/24 21:00 Temperature 34.7 C L 34.8 C L 34.8 C L Pulse Rate 85 82 81 Respiratory Rate 20 20 20 Blood Pressure 115/61 119/63 119/66 Pulse Oximetry Oxygen Delivery Fraction of Inspired Oxygen 02/28/24 21:01 02/28/24 21:03 02/28/24 21:06 Temperature 34.8 C L 34.8 C L 34.9 C L Pulse Rate 88 77 79 Respiratory Rate 20 20 20 Blood Pressure 121/52 L 114/60 Pulse Oximetry 99 Oxygen Delivery Fraction of Inspired Oxygen 02/28/24 21:09 02/28/24 21:10 02/28/24 21:12 Temperature 34.9 C L Pulse Rate 85 86 93 Respiratory Rate 22 H Blood Pressure 114/60 107/60 103/85 Pulse Oximetry 100 Oxygen Delivery Fraction of Inspired Oxygen 02/28/24 21:15 02/28/24 21:15 02/28/24 21:16 Temperature 34.9 C L 35.0 C L Pulse Rate 84 91 86 Respiratory Rate 20 20 20 Blood Pressure 113/62 Pulse Oximetry 99 99 Oxygen Delivery Fraction of Inspired Oxygen 02/28/24 21:18 02/28/24 21:19 02/28/24 21:21 Temperature 35.0 C L 35.0 C L 35.1 C L Pulse Rate 86 86 84 Respiratory Rate 20 20 20 Blood Pressure 104/49 L 106/61 Pulse Oximetry 99 99 99 Oxygen Delivery Fraction of Inspired Oxygen 02/28/24 21:24 02/28/24 21:27 02/28/24 21:30 Temperature 35.1 C L 35.1 C L 35.1 C L Pulse Rate 69 78 85 Respiratory Rate 20 20 20 Blood Pressure 104/54 L 109/62 104/53 L Pulse Oximetry 99 100 99 Oxygen Delivery Fraction of Inspired Oxygen 02/28/24 21:31 02/28/24 21:33 02/28/24 21:36 Temperature 35.2 C L 35.2 C L 35.2 C L Pulse Rate 83 77 75 Respiratory Rate 20 20 20 Blood Pressure 104/51 L 104/52 L Pulse Oximetry 99 99 99 Oxygen Delivery Fraction of Inspired Oxygen 02/28/24 21:39 02/28/24 21:42 02/28/24 21:45 Temperature 35.2 C L 35.2 C L 35.3 C L Pulse Rate 81 79 76 Respiratory Rate 20 20 20 Blood Pressure 108/66 108/55 L 104/60 Pulse Oximetry 99 99 99 Oxygen Delivery Fraction of Inspired Oxygen 02/28/24 21:46 02/28/24 21:48 02/28/24 21:51 Temperature 35.3 C L 35.3 C L 35.3 C L Pulse Rate 78 73 80 Respiratory Rate 20 20 20 Blood Pressure 100/61 104/59 L Pulse Oximetry 99 99 98 Oxygen Delivery Fraction of Inspired Oxygen 02/28/24 21:54 02/28/24 21:55 02/28/24 21:57 Temperature 35.4 C L 35.4 C L Pulse Rate 83 85 92 Respiratory Rate 20 20 Blood Pressure 106/64 Pulse Oximetry 99 99 99 Oxygen Delivery Mechanical Ventilation Fraction of Inspired Oxygen 50 02/28/24 22:12 02/28/24 22:14 02/28/24 22:15 Temperature 35.6 C L 35.6 C L 35.6 C L Pulse Rate 81 80 78 Respiratory Rate 20 20 20 Blood Pressure 102/58 L Pulse Oximetry 100 99 99 Oxygen Delivery Fraction of Inspired Oxygen 02/28/24 22:17 02/28/24 22:19 02/28/24 22:22 Temperature 35.6 C L 35.6 C L 35.6 C L Pulse Rate 87 88 74 Respiratory Rate 20 20 20 Blood Pressure 103/60 109/57 L 106/56 L Pulse Oximetry 100 100 100 Oxygen Delivery Fraction of Inspired Oxygen 02/28/24 22:25 02/28/24 22:28 02/28/24 22:30 Temperature 35.7 C L 35.7 C L 35.7 C L Pulse Rate 88 78 83 Respiratory Rate 20 20 20 Blood Pressure 103/49 L 106/64 Pulse Oximetry 100 100 100 Oxygen Delivery Fraction of Inspired Oxygen 02/28/24 22:31 02/28/24 22:34 02/28/24 22:37 Temperature 35.7 C L 35.7 C L 35.8 C L Pulse Rate 76 86 81 Respiratory Rate 20 20 20 Blood Pressure 107/54 L 110/57 L 106/53 L Pulse Oximetry 100 99 100 Oxygen Delivery Fraction of Inspired Oxygen 02/28/24 22:40 02/28/24 22:43 02/28/24 22:45 Temperature 35.8 C L 35.8 C L 35.8 C L Pulse Rate 90 86 86 Respiratory Rate 20 20 20 Blood Pressure 108/49 L 106/56 L Pulse Oximetry 100 100 100 Oxygen Delivery Fraction of Inspired Oxygen 02/28/24 22:46 02/28/24 22:49 02/28/24 22:52 Temperature 35.8 C L 35.9 C L 35.9 C L Pulse Rate 87 75 82 Respiratory Rate 20 20 20 Blood Pressure 106/63 106/52 L 112/50 L Pulse Oximetry 100 100 100 Oxygen Delivery Fraction of Inspired Oxygen 02/28/24 22:55 02/28/24 23:25 02/28/24 23:26 Temperature 35.9 C L Pulse Rate 83 81 91 Respiratory Rate 20 20 Blood Pressure 109/53 L Pulse Oximetry 100 97 Oxygen Delivery Mechanical Ventilation Fraction of Inspired Oxygen 50 02/28/24 23:30 02/28/24 23:30 02/28/24 23:45 Temperature 35.8 C L Pulse Rate 89 88 82 Respiratory Rate 16 20 Blood Pressure 87/45 L 87/45 L Pulse Oximetry 100 96 Oxygen Delivery Fraction of Inspired Oxygen 02/29/24 00:00 02/29/24 00:00 02/29/24 00:00 Temperature Pulse Rate 80 80 Respiratory Rate 20 Blood Pressure 102/48 L Pulse Oximetry Oxygen Delivery Fraction of Inspired Oxygen 50 02/29/24 00:00 02/29/24 00:00 02/29/24 00:00 Temperature Pulse Rate 80 80 72 Respiratory Rate 20 20 Blood Pressure 102/48 L Pulse Oximetry Oxygen Delivery Fraction of Inspired Oxygen 02/29/24 00:00 02/29/24 01:00 02/29/24 01:00 Temperature Pulse Rate 73 73 Respiratory Rate 20 Blood Pressure 103/58 L Pulse Oximetry Oxygen Delivery Mechanical Ventilation Fraction of Inspired Oxygen 50 02/29/24 01:00 02/29/24 02:00 02/29/24 02:00 Temperature Pulse Rate 73 62 56 L Respiratory Rate 20 Blood Pressure 103/58 L 104/56 L Pulse Oximetry 96 Oxygen Delivery Fraction of Inspired Oxygen 02/29/24 02:00 02/29/24 02:00 02/29/24 02:00 Temperature Pulse Rate 70 70 Respiratory Rate 20 Blood Pressure 104/56 L Pulse Oximetry Oxygen Delivery Fraction of Inspired Oxygen 40 02/29/24 02:00 02/29/24 02:00 02/29/24 02:22 Temperature Pulse Rate 70 70 69 Respiratory Rate 20 Blood Pressure 104/56 L Pulse Oximetry 97 Oxygen Delivery Mechanical Ventilation Fraction of Inspired Oxygen 40 02/29/24 02:45 02/29/24 03:00 02/29/24 03:00 Temperature Pulse Rate 66 66 71 Respiratory Rate Blood Pressure 105/53 L 97/53 L 97/53 L Pulse Oximetry Oxygen Delivery Fraction of Inspired Oxygen 02/29/24 04:00 02/29/24 04:00 02/29/24 04:00 Temperature Pulse Rate 68 66 Respiratory Rate Blood Pressure 81/44 L Pulse Oximetry Oxygen Delivery Fraction of Inspired Oxygen 35 02/29/24 04:00 02/29/24 04:00 02/29/24 04:00 Temperature 35.8 C L Pulse Rate 66 68 Respiratory Rate 20 Blood Pressure 89/51 L 89/51 L Pulse Oximetry 96 Oxygen Delivery Mechanical Ventilation Fraction of Inspired Oxygen 35 02/29/24 04:00 02/29/24 04:00 02/29/24 04:15 Temperature Pulse Rate 66 68 68 Respiratory Rate 20 20 Blood Pressure 81/44 L Pulse Oximetry Oxygen Delivery Fraction of Inspired Oxygen 02/29/24 04:15 02/29/24 04:30 02/29/24 05:00 Temperature Pulse Rate 68 67 67 Respiratory Rate Blood Pressure 81/44 L 94/50 L 88/44 L Pulse Oximetry Oxygen Delivery Fraction of Inspired Oxygen 02/29/24 05:06 02/29/24 05:30 02/29/24 06:00 Temperature Pulse Rate 62 61 62 Respiratory Rate Blood Pressure 89/53 L Pulse Oximetry 96 Oxygen Delivery Mechanical Ventilation Fraction of Inspired Oxygen 35 02/29/24 06:00 02/29/24 06:00 02/29/24 06:00 Temperature 35.9 C L Pulse Rate 62 62 62 Respiratory Rate 20 Blood Pressure 90/46 L 90/46 L 90/46 L Pulse Oximetry 96 Oxygen Delivery Fraction of Inspired Oxygen 02/29/24 06:00 02/29/24 06:00 02/29/24 07:00 Temperature Pulse Rate 62 62 61 Respiratory Rate 20 20 20 Blood Pressure Pulse Oximetry Oxygen Delivery Fraction of Inspired Oxygen 02/29/24 07:00 02/29/24 07:25 02/29/24 08:00 Temperature 36.0 C L Pulse Rate 61 55 L 67 Respiratory Rate 20 20 Blood Pressure 104/49 L 109/55 L Pulse Oximetry 96 Oxygen Delivery Fraction of Inspired Oxygen 02/29/24 08:00 02/29/24 08:00 02/29/24 08:00 Temperature Pulse Rate 66 73 Respiratory Rate Blood Pressure 109/55 L Pulse Oximetry 96 Oxygen Delivery Mechanical Ventilation Fraction of Inspired Oxygen 30 02/29/24 08:00 02/29/24 08:00 02/29/24 08:14 Temperature Pulse Rate 67 74 Respiratory Rate 20 Blood Pressure Pulse Oximetry 96 Oxygen Delivery Mechanical Ventilation Fraction of Inspired Oxygen 30 35 02/29/24 08:14 02/29/24 08:38 02/29/24 08:39 Temperature Pulse Rate 74 68 68 Respiratory Rate 16 20 Blood Pressure 116/62 Pulse Oximetry Oxygen Delivery Fraction of Inspired Oxygen 02/29/24 09:35 02/29/24 10:00 02/29/24 10:00 Temperature Pulse Rate 79 70 73 Respiratory Rate 16 Blood Pressure 97/55 L Pulse Oximetry Oxygen Delivery Fraction of Inspired Oxygen 02/29/24 10:00 02/29/24 10:00 02/29/24 10:00 Temperature Pulse Rate 73 73 73 Respiratory Rate 20 20 Blood Pressure 97/55 L Pulse Oximetry Oxygen Delivery Fraction of Inspired Oxygen 02/29/24 10:00 02/29/24 10:45 02/29/24 10:45 Temperature 36.0 C L Pulse Rate 73 73 73 Respiratory Rate 20 20 Blood Pressure 97/55 L 95/51 L Pulse Oximetry 95 Oxygen Delivery Fraction of Inspired Oxygen 02/29/24 11:00 02/29/24 11:09 02/29/24 11:15 Temperature Pulse Rate 64 61 64 Respiratory Rate Blood Pressure 78/44 L 86/47 L Pulse Oximetry 95 Oxygen Delivery Mechanical Ventilation Fraction of Inspired Oxygen 30 02/29/24 11:30 Temperature Pulse Rate 64 Respiratory Rate Blood Pressure 103/50 L Pulse Oximetry Oxygen Delivery Fraction of Inspired Oxygen Exam 2 Narrative: General: Patient is intubated, sedated, in no acute distress Lungs/Chest: Trachea central, coarse breath sounds bilaterally, decreased at bases, No crackles or wheezing. Cardiac: Irregularly irregular, rate in the 50-60s Abdomen: Hypoactive bowel sounds. Obese. Soft. NT. ND. There appears and mesh underlying the skin in the midline Extremities: Bilateral feet have edema. He has 2 superficial wounds on the lateral aspect of left leg. He also has a wound which does not appear infected on the left heel. He has chronic venous stasis changes and edema : Coats in place Neurologic: Intubated and sedated, does not open his eyes or follow simple commands. Does not withdraw to pain in extremities. Skin: As above Psych: Unable to assess at this time Results Labs and Meds 02/29/24 05:00 02/29/24 05:00 Lab results: Cardiac Enzymes 02/28/24 02/28/24 02/29/24 Range/Units 13:28 17:13 00:15 AST 15 L (17-59) U/L Troponin I < 0.012 < 0.012 < 0.012 (0.000-0.034) ng/mL 02/29/24 Range/Units 05:00 AST 15 L (17-59) U/L Troponin I (0.000-0.034) ng/mL Coagulation 02/28/24 02/29/24 Range/Units 17:13 05:00 PT 27.1 H 25.0 H (11.1-14.7) Seconds APTT 86.2 H (22.3-36.8) Seconds CBC 02/28/24 02/29/24 Range/Units 13:28 05:00 WBC 2.3 L 4.8 (4.5-10.0) K/mm3 RBC 3.38 L 3.20 L (4.6-6.20) M/mm3 Hgb 8.4 L 7.9 L (14.0-18.0) g/dL Hct 27.3 L 25.5 L (42.0-52.0) % Plt Count 284 311 (150-375) k/mm3 Lymph # (Auto) 0.48 L 0.44 L (0.9-3.2) K/mm3 [place] # (Auto) 0.4 0.6 (0.1-0.6) K/mm3 Eos # (Auto) 0.2 0.0 (0-0.3) K/mm3 Baso # (Auto) 0.0 0.0 (0.0-0.1) K/mm3 Comprehensive Metabolic Panel 02/28/24 02/29/24 02/29/24 Range/Units 13:28 00:15 05:00 Sodium 134 L 135 L 136 L (137-145) mmol/L Potassium 5.3 H 5.5 H 5.2 H (3.4-5.0) mmol/L Chloride 110 H 111 H 111 H (98-107) mmol/L Carbon Dioxide 22 22 22 (22-30) mmol/L BUN 45 H D 42 H 41 H (9-20) mg/dL Creatinine 1.50 H 1.40 H 1.50 H (0.7-1.3) mg/dL Glucose 133 H 204 H 191 H (65-110) mg/dL Calcium 9.7 9.5 9.3 (8.4-10.2) mg/dL AST 15 L 15 L (17-59) U/L ALT 11 11 (6-50) U/L Alkaline Phosphatase 98 90 (38-126) U/L Total Protein 8.0 7.0 (6.3-8.2) g/dL Albumin 2.8 L 2.7 L (3.5-5.1) g/dL Intake and Output 02/28/24 02/29/24 02/29/24 23:59 07:59 15:59 Intake Total 1764.0 448.5 313.5 Output Total 1000 Balance 1764.0 -551.5 313.5 Intake: IV 1764.0 448.5 313.5 DOPamine 400 MG/D5W 250 ML 400 73.1 183.1 85.0 mg In 250 ml @ 2.5 MCG/KG/MIN 12.75 mls/hr IV CONT .[id number] [facility] Rx#:[id number] Fentanyl 2,500Mcg/[id number](*Crx 32.5 97.5 32.2 2,500 mcg In 250 ml @ 100 MCG/ HR 10 mls/hr IV CONT .Q25H [facility] Rx#:[id number] Lactated Ringers 1,000 ml @ 150 1000 mls/hr IV CONT .Q6H40M [facility] Rx# :[id number] Midazolam 100Mg/Ns 100Ml(*Crx) 25.2 6 100 mg In 100 ml @ 2 MG/HR 2 mls/hr IV CONT .Q50H [facility] Rx#: [id number] Norepinephrine 8 mg/D5w 250 ml 157.2 92.7 90.3 8 mg In 250 ml @ 5 MCG/MIN 9. 375 mls/hr IV CONT .Q24H [facility] Rx #:[id number] Vasopressin Inj 100 units In 1.2 Dextrose 5% 95 ml @ 0.02 UNITS/ MIN 1.2 mls/hr IV CONT .Q72H [facility] Rx#:[id number] Albumin Human 25% 25 gm/100 ml 100 100 ml @ 60 mls/hr IVPB Q6HR [facility] Rx#:[id number] Cefepime 2 gm/Ns 50 ml 2 gm In 50 50 ml @ 100 mls/hr IVPB Q8HR [facility] Rx#:[id number] Vancomycin 1,250 mg/Ns 250 ml 1 500 ,250 mg In 250 ml @ 166.667 mls /hr IVPB ONCE ONE Rx#:[id number] Oral 0 Output: Catheter Urine 1000 Urethral Catheter 1000 Patient Weight 02/29/24 23:59 Weight 129.6 kg
[2024-02-29] MEDS: LACTULOSE 20 GM/30 ML UDC PO (12:34)
[2024-02-29] MEDS: MEROPENEM 1 GM/NS 100 ML 1 GM/100 ML BAG IVPB ×2 (12:34→18:12)
[2024-02-29] MEDS: polyethylene glycoL 3350 17 GM POWD.PACK PO (12:35)
--- NOTE | 2024-02-29 12:51 | WPDURCON ---
Assessment and Plan Assessment and plan (1) Bilateral renal stones: Code(s): N20.0 - Calculus of kidney Status: Acute Assessment and Plan: Significant stone burden in the right kidney. This would require a percutaneous nephrolithotomy to address. Given his significant comorbid issues he is not a candidate here at this [facility] to have it done. (2) Ureteral stent present: Code(s): Z96.0 - Presence of urogenital implants Status: Acute Assessment and Plan: Stents in proper position, no hydro on CT scan (3) Chronic indwelling Coats catheter: Code(s): Z97.8 - Presence of other specified devices Status: Acute Plan - Right renal stone and bilateral ureteral stents. No follow-up yet since stent placement by Dr. Young in 12/2023. Again, recommend follow-up at tertiary care center such as [facility] or [facility] when medically stable for ongoing stent management and stone treatment given severity of comorbidities pending goals of care discussion with patient's surrogate decision maker. Case management may need to assist with referral and involve [facility] staff to coordinate appointment if treatment is pursued. Patient's spouse is aware of urology recommendations, however, he has been hospitalized multiple times since November. No plan for inpatient urologic surgical intervention. Maintain indwelling Coats catheter. 02/28/24 UA/Urine culture findings unreliable if collected from indwelling catheter placed >2weeks ago (I don't see documentation of more recent catheter replacement). Continue catheter exchanges every 3-4 weeks at the nursing facility. Urology Consult Note HPI Date Seen: 02/29/24 Requesting Physician: Paul Rosado MD Primary Care Provider: Asael Bravo, Consult Narrative Narrative: 68yo male known to the urology service with history of pAFib, diastolic CHF, insulin-dependent DM, hypothyroidism, HTN, untreated JUN, chronic venous stasis dermatitis, chronic indwelling Coats catheter, kidney stones, chronic left heel wound with hx of osteomyelitis of left calcaneus and other comorbidities who presented to ED via EMS 02/28/24 from [facility] with mental status changes, hypothermia, acute hypoxic respiratory failure. He is intubated / sedated in the ICU. Indwelling Coats catheter intact, draining clear lynda urine. Patient's baseline mental status is alert to self only, known history of dementia with behavioral disturbance. He was recently discharged 02/15/2024 after an 8 day stay for which he was treated for septic shock due to Pseudomonas bacteremia. Urology consulted for evaluation of stents/renal stones. Patient is a poor historian, no family at bedside. He has chronic bladder dysfunction managed with indwelling Coats catheter, changed monthly at his nursing facility. CT imaging shows bilateral ureteral stents in appropriate position, no hydronephrosis. Known right renal stones. Renal function stable, Cr near baseline. PERTINENT IMAGIN12/21/23 CT Abdomen/Pelvis - Moderate bilateral hydronephrosis. Ureters followed to bladder c/w vesicoureteral reflux. Air in right collecting system (chronic). Right ureteral and large renal stone. 02/08/24 CT Chest/Abdomen/Pelvis - Small right pleural effusion. Right paratracheal lymphadenopathy. Questionable mild pulmonary edema vs motion artifact. Possible cystitis despite Coats. Cholelithiasis. Constipation. Bilateral ureteral stents, stable right renal stones. No definite hydronephrosis. 02/28/24 CT Abdomen/Pelvis WO con - Fecal stasis distending the rectum and distal large bowel consistent with fecal impaction. Bilateral double-J stents without hydronephrosis. Large right and moderate left-sided pleural effusions. Inflammatory change surrounding the gallbladder and pancreas, consistent with possible pancreatitis and cholecystitis. Review of Systems Review of Systems: ROS unobtainable: Yes unobtainable due to endotracheal tube and unobtainable due to mental status [facility] Past Medical History Medical History (Updated 02/29/24 @ 13:23 by Jojo Ronquillo APRN) Bacteremia due to Pseudomonas (01/2024) E coli bacteremia Chronic hyponatremia Chronic indwelling Coats catheter Chronic osteomyelitis of left foot Diastolic congestive heart failure Chronic obstructive pulmonary disease Gastroesophageal reflux disease Hypothyroidism Obstructive sleep apnea Non-compliant with CPAP. Paroxysmal atrial fibrillation Choledocholithiasis (05/2022) Kidney stones Peripheral neuropathy Depression Chronic venous insufficiency Morbid obesity Hyperlipidemia Hypertension Insulin dependent diabetes mellitus Surgical History Surgical History History of abdominal surgery The patient has a large scar in the right lower abdomen just above the right groin and on palpation of his abdomen he has what feels like mesh that extends from side to side and has a course rough texture it also extends from just under the umbilicus to a couple of inches above the pubis History of tonsillectomy and adenoidectomy History of hemorrhoidectomy History of cataract extraction History of back surgery History of appendectomy Family History Family History Sibling Family history of heart disease in male family member before age 55 Family history of diabetes mellitus in first degree relative Patient's brother is Family history of obesity Hypertension Mother Family history of arthritis Patient's mother is Father Patient's father is Social History Social History Social History: Surrogate medical decision maker: Marlys Marrero, . Code status: Full code. Smoking packs per day: 1.5 Smoking cigarettes per day: 30.0 Years smoked: 15 Smoking pack-years: 22.50 Smoking status: Never smoker Second hand tobacco smoke exposure: Yes Alcohol intake: never Substance use: never Substance use type: does not use Lack of Transportation: No Lack of Food: Never True Current Housing: I Have Housing Concerned About Future Housing: No Difficulty Paying Gas/Electric Bills: No Difficulty Paying for Meds: No Currently Unemployed: No Education: High School Diploma/GED Difficulty w/ Childcare or Family Care: No Living arrangements: [facility] Additional living arrangements comments: Resident at [facility]. to Marlys. They have 2 sons. He is nonambulatory and depends on a [place] lift for transfer. 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 Spiritual care concerns: No Agree to blood products: Yes Meds Home Medications and Allergies Home Medications ?Medication ?Instructions ?Recorded ?Confirmed ?Type ipratropium 0.5 mg-albuterol 3 mg 3 ml inhalation Q4H PRN Wheezing 02/15/21 02/29/24 History (2.5 mg base)/3 mL nebulization soln levothyroxine 100 mcg tablet 100 mcg PO DAILY 02/15/21 02/29/24 History pravastatin 40 mg tablet 40 mg PO HS 12/08/21 02/29/24 History multivitamin with minerals-folic 1 tablet PO DAILY 03/02/22 02/29/24 History acid 0.4 mg tablet apixaban 5 mg tablet (Eliquis) 5 mg PO Q12HR #60 tabs 07/01/22 02/29/24 Rx acetaminophen 325 mg capsule 650 mg PO Q4-6H PRN Pain (Scale 09/10/22 02/29/24 History (Tylenol) Score 1-3) sennosides 8.6 mg-docusate sodium 1 tablet PO BID 09/10/22 02/29/24 History 50 mg tablet (Senna Plus) melatonin 5 mg tablet 5 mg PO HS 03/10/23 02/29/24 History bupropion HCl 150 mg 24 hr tablet, 150 mg PO QAM #30 tabs 05/23/23 02/29/24 Rx extended release polyethylene glycol 3350 17 gram 17 g PO BID #30 ea 06/26/23 02/29/24 Rx oral powder packet (Miralax) insulin NPH-regular 70-30 U-100 25 unit subcut QAM 08/07/23 02/29/24 History insulin 100 unit/mL subcutaneous pen (Novolin 70-30 FlexPen U-100 Insulin) magnesium oxide 400 mg (241.3 mg 400 mg PO DAILY 08/07/23 02/29/24 History magnesium) tablet metoprolol succinate 25 mg 75 mg (3 x 25 mg) PO QAM #90 tabs 08/18/23 02/29/24 Rx tablet,extended release 24 hr (Toprol XL) nystatin 100,000 unit/gram topical 1 applic topical BID 11/30/23 02/29/24 History cream amlodipine 5 mg tablet (Norvasc) 5 mg PO DAILY #30 tabs 12/27/23 02/29/24 Rx famotidine 20 mg tablet 20 mg PO QHS #30 tabs 12/27/23 02/29/24 Rx insulin NPH-regular 70-30 U-100 15 unit (0.15 mL) subcut 1700 #15 12/27/23 02/29/24 Rx insulin 100 unit/mL subcutaneous mL pen (Novolin 70-30 FlexPen U-100 Insulin) lanolin alcohols-mineral 1 applic topical DAILY #113 grams 12/27/23 02/29/24 Rx oil-w.petrolatum-ceresin topical cream (Minerin Creme topical) pantoprazole 40 mg tablet,delayed 40 mg PO QAM #30 tabs 12/27/23 02/29/24 Rx release (Protonix) valsartan 40 mg tablet 40 mg PO DAILY #30 tabs 12/27/23 02/29/24 Rx brexpiprazole 0.5 mg tablet 0.5 mg PO DAILY 02/08/24 02/29/24 History (Rexulti) gabapentin 100 mg capsule 300 mg PO TID 02/08/24 02/29/24 History lisinopril 10 mg tablet 10 mg PO DAILY 02/08/24 02/29/24 History trazodone 50 mg tablet 75 mg PO HS 02/08/24 02/29/24 History Allergies Allergy/AdvReac Type Severity Reaction Status Date / Time No Known Allergies Allergy Verified 12/22/23 12:21 Vital Signs Vital Signs - 24 hr 02/28/24 13:13 02/28/24 13:40 02/28/24 13:43 Temperature 85.8 F L Pulse Rate 46 L 39 L Respiratory Rate 15 Blood Pressure 89/39 L 77/48 L Pulse Oximetry 92 Oxygen Delivery Room Air Fraction of Inspired Oxygen 02/28/24 14:03 02/28/24 14:05 02/28/24 14:14 Temperature 86.2 F L 86.2 F L Pulse Rate 43 L 52 L Respiratory Rate 14 Blood Pressure 81/44 L 95/61 L Pulse Oximetry 87 L Oxygen Delivery Fraction of Inspired Oxygen 02/28/24 14:15 02/28/24 14:17 02/28/24 14:17 Temperature 86.2 F L 86.3 F L 86.3 F L Pulse Rate 47 L 49 L Respiratory Rate 15 14 Blood Pressure 99/57 L Pulse Oximetry 73 L 92 Oxygen Delivery Fraction of Inspired Oxygen 02/28/24 14:22 02/28/24 14:25 02/28/24 14:29 Temperature 86.3 F L 86.4 F L 86.5 F L Pulse Rate 53 L 54 L 52 L Respiratory Rate 16 16 12 Blood Pressure 89/72 L 99/70 L 98/59 L Pulse Oximetry 99 100 97 Oxygen Delivery Fraction of Inspired Oxygen 02/28/24 14:40 02/28/24 15:14 02/28/24 15:16 Temperature 87.7 F L Pulse Rate 54 L 42 L 39 L Respiratory Rate 21 H 12 Blood Pressure 75/49 L 82/52 L Pulse Oximetry 100 100 Oxygen Delivery BiPAP Fraction of Inspired Oxygen 02/28/24 15:17 02/28/24 15:21 02/28/24 15:49 Temperature 87.8 F L 88.5 F L Pulse Rate 36 L Respiratory Rate 15 Blood Pressure 82/50 L Pulse Oximetry 97 Oxygen Delivery Fraction of Inspired Oxygen 02/28/24 15:50 02/28/24 16:51 02/28/24 16:52 Temperature 89.6 F L 89.7 F L Pulse Rate 50 L 40 L 40 L Respiratory Rate 16 17 16 Blood Pressure 92/54 L Pulse Oximetry 98 98 97 Oxygen Delivery BiPAP Fraction of Inspired Oxygen 02/28/24 16:56 02/28/24 16:57 02/28/24 17:02 Temperature 89.8 F L 89.9 F L Pulse Rate 38 L 39 L Respiratory Rate 12 12 Blood Pressure 88/51 L 85/45 L Pulse Oximetry 98 99 97 Oxygen Delivery BiPAP Fraction of Inspired Oxygen 02/28/24 17:03 02/28/24 17:04 02/28/24 17:26 Temperature 89.9 F L 90.0 F L Pulse Rate 40 L 42 L 31 L Respiratory Rate 12 12 Blood Pressure 87/46 L 75/49 L Pulse Oximetry 97 Oxygen Delivery Fraction of Inspired Oxygen 02/28/24 18:04 02/28/24 18:11 02/28/24 18:15 Temperature Pulse Rate 41 L 38 L 42 L Respiratory Rate Blood Pressure 82/48 L 79/53 L 114/58 L Pulse Oximetry Oxygen Delivery Fraction of Inspired Oxygen 02/28/24 18:17 02/28/24 18:25 02/28/24 18:34 Temperature Pulse Rate 49 L 55 L 61 Respiratory Rate Blood Pressure 110/56 L 135/68 Pulse Oximetry 100 Oxygen Delivery Mechanical Ventilation Fraction of Inspired Oxygen 60 02/28/24 18:36 02/28/24 18:41 02/28/24 18:55 Temperature Pulse Rate 66 71 Respiratory Rate 20 Blood Pressure 126/65 Pulse Oximetry Oxygen Delivery Fraction of Inspired Oxygen 50 02/28/24 19:05 02/28/24 19:11 02/28/24 19:12 Temperature 92.6 F L Pulse Rate 76 80 80 Respiratory Rate 20 20 Blood Pressure 119/75 118/63 Pulse Oximetry 100 Oxygen Delivery Fraction of Inspired Oxygen 02/28/24 19:15 02/28/24 19:18 02/28/24 19:21 Temperature 92.6 F L 92.7 F L 92.7 F L Pulse Rate 76 80 75 Respiratory Rate 20 20 20 Blood Pressure 124/68 112/66 117/68 Pulse Oximetry 100 100 99 Oxygen Delivery Fraction of Inspired Oxygen 02/28/24 19:24 02/28/24 19:27 02/28/24 19:30 Temperature 92.8 F L 92.9 F L 92.9 F L Pulse Rate 89 92 78 Respiratory Rate 20 20 20 Blood Pressure 119/55 L 115/58 L 119/69 Pulse Oximetry 100 99 100 Oxygen Delivery Fraction of Inspired Oxygen 02/28/24 19:31 02/28/24 19:33 02/28/24 19:36 Temperature 92.9 F L 93.0 F L 93.0 F L Pulse Rate 81 81 77 Respiratory Rate 20 20 20 Blood Pressure 118/69 117/72 Pulse Oximetry 100 99 99 Oxygen Delivery Fraction of Inspired Oxygen 02/28/24 19:39 02/28/24 19:42 02/28/24 19:45 Temperature 93.1 F L 93.1 F L 93.2 F L Pulse Rate 73 85 81 Respiratory Rate 20 20 20 Blood Pressure 116/49 L 116/64 119/59 L Pulse Oximetry 99 100 100 Oxygen Delivery Fraction of Inspired Oxygen 02/28/24 19:46 02/28/24 19:48 02/28/24 19:51 Temperature 93.2 F L 93.2 F L 93.3 F L Pulse Rate 84 84 77 Respiratory Rate 20 20 20 Blood Pressure 112/66 115/65 Pulse Oximetry 99 100 99 Oxygen Delivery Fraction of Inspired Oxygen 02/28/24 19:54 02/28/24 19:57 02/28/24 20:00 Temperature 93.4 F L 93.4 F L 93.5 F L Pulse Rate 89 88 79 Respiratory Rate 20 20 20 Blood Pressure 116/69 121/61 117/64 Pulse Oximetry 99 100 99 Oxygen Delivery Fraction of Inspired Oxygen 02/28/24 20:01 02/28/24 20:03 02/28/24 20:06 Temperature 93.5 F L 93.5 F L 93.6 F L Pulse Rate 87 91 79 Respiratory Rate 20 20 20 Blood Pressure 117/63 117/61 Pulse Oximetry 99 100 99 Oxygen Delivery Fraction of Inspired Oxygen 02/28/24 20:09 02/28/24 20:12 02/28/24 20:15 Temperature 93.7 F L 93.7 F L 93.8 F L Pulse Rate 80 82 79 Respiratory Rate 20 20 20 Blood Pressure 114/54 L 117/66 109/69 Pulse Oximetry 99 100 99 Oxygen Delivery Fraction of Inspired Oxygen 02/28/24 20:16 02/28/24 20:18 02/28/24 20:21 Temperature 93.8 F L 93.8 F L 93.9 F L Pulse Rate 87 82 87 Respiratory Rate 20 20 20 Blood Pressure 112/64 111/64 Pulse Oximetry 99 99 99 Oxygen Delivery Fraction of Inspired Oxygen 02/28/24 20:24 02/28/24 20:27 02/28/24 20:30 Temperature 94.0 F L 94.0 F L 94.1 F L Pulse Rate 84 77 79 Respiratory Rate 20 20 20 Blood Pressure 118/54 L 112/67 117/68 Pulse Oximetry 99 99 99 Oxygen Delivery Fraction of Inspired Oxygen 02/28/24 20:31 02/28/24 20:33 02/28/24 20:36 Temperature 94.1 F L 94.1 F L 94.2 F L Pulse Rate 84 77 86 Respiratory Rate 20 20 20 Blood Pressure 117/58 L 117/61 Pulse Oximetry 99 99 99 Oxygen Delivery Fraction of Inspired Oxygen 02/28/24 20:39 02/28/24 20:42 02/28/24 20:45 Temperature 94.2 F L 94.3 F L 94.4 F L Pulse Rate 87 86 98 Respiratory Rate 20 20 26 H Blood Pressure 121/60 114/67 112/71 Pulse Oximetry 99 99 99 Oxygen Delivery Fraction of Inspired Oxygen 02/28/24 20:46 02/28/24 20:48 02/28/24 20:51 Temperature 94.4 F L 94.4 F L 94.5 F L Pulse Rate 95 97 88 Respiratory Rate 20 20 20 Blood Pressure 122/58 L 112/67 Pulse Oximetry Oxygen Delivery Fraction of Inspired Oxygen 02/28/24 20:54 02/28/24 20:57 02/28/24 21:00 Temperature 94.5 F L 94.6 F L 94.6 F L Pulse Rate 85 82 81 Respiratory Rate 20 20 20 Blood Pressure 115/61 119/63 119/66 Pulse Oximetry Oxygen Delivery Fraction of Inspired Oxygen 02/28/24 21:01 02/28/24 21:03 02/28/24 21:06 Temperature 94.7 F L 94.7 F L 94.8 F L Pulse Rate 88 77 79 Respiratory Rate 20 20 20 Blood Pressure 121/52 L 114/60 Pulse Oximetry 99 Oxygen Delivery Fraction of Inspired Oxygen 02/28/24 21:09 02/28/24 21:10 02/28/24 21:12 Temperature 94.9 F L Pulse Rate 85 86 93 Respiratory Rate 22 H Blood Pressure 114/60 107/60 103/85 Pulse Oximetry 100 Oxygen Delivery Fraction of Inspired Oxygen 02/28/24 21:15 02/28/24 21:15 02/28/24 21:16 Temperature 94.9 F L 95.0 F L Pulse Rate 84 91 86 Respiratory Rate 20 20 20 Blood Pressure 113/62 Pulse Oximetry 99 99 Oxygen Delivery Fraction of Inspired Oxygen 02/28/24 21:18 02/28/24 21:19 02/28/24 21:21 Temperature 95.0 F L 95.0 F L 95.1 F L Pulse Rate 86 86 84 Respiratory Rate 20 20 20 Blood Pressure 104/49 L 106/61 Pulse Oximetry 99 99 99 Oxygen Delivery Fraction of Inspired Oxygen 02/28/24 21:24 02/28/24 21:27 02/28/24 21:30 Temperature 95.1 F L 95.2 F L 95.2 F L Pulse Rate 69 78 85 Respiratory Rate 20 20 20 Blood Pressure 104/54 L 109/62 104/53 L Pulse Oximetry 99 100 99 Oxygen Delivery Fraction of Inspired Oxygen 02/28/24 21:31 02/28/24 21:33 02/28/24 21:36 Temperature 95.3 F L 95.3 F L 95.3 F L Pulse Rate 83 77 75 Respiratory Rate 20 20 20 Blood Pressure 104/51 L 104/52 L Pulse Oximetry 99 99 99 Oxygen Delivery Fraction of Inspired Oxygen 02/28/24 21:39 02/28/24 21:42 02/28/24 21:45 Temperature 95.4 F L 95.4 F L 95.5 F L Pulse Rate 81 79 76 Respiratory Rate 20 20 20 Blood Pressure 108/66 108/55 L 104/60 Pulse Oximetry 99 99 99 Oxygen Delivery Fraction of Inspired Oxygen 02/28/24 21:46 02/28/24 21:48 02/28/24 21:51 Temperature 95.5 F L 95.5 F L 95.6 F L Pulse Rate 78 73 80 Respiratory Rate 20 20 20 Blood Pressure 100/61 104/59 L Pulse Oximetry 99 99 98 Oxygen Delivery Fraction of Inspired Oxygen 02/28/24 21:54 02/28/24 21:55 02/28/24 21:57 Temperature 95.7 F L 95.7 F L Pulse Rate 83 85 92 Respiratory Rate 20 20 Blood Pressure 106/64 Pulse Oximetry 99 99 99 Oxygen Delivery Mechanical Ventilation Fraction of Inspired Oxygen 50 02/28/24 22:12 02/28/24 22:14 02/28/24 22:15 Temperature 96.0 F L 96.0 F L 96.0 F L Pulse Rate 81 80 78 Respiratory Rate 20 20 20 Blood Pressure 102/58 L Pulse Oximetry 100 99 99 Oxygen Delivery Fraction of Inspired Oxygen 02/28/24 22:17 02/28/24 22:19 02/28/24 22:22 Temperature 96.1 F L 96.1 F L 96.1 F L Pulse Rate 87 88 74 Respiratory Rate 20 20 20 Blood Pressure 103/60 109/57 L 106/56 L Pulse Oximetry 100 100 100 Oxygen Delivery Fraction of Inspired Oxygen 02/28/24 22:25 02/28/24 22:28 02/28/24 22:30 Temperature 96.2 F L 96.2 F L 96.3 F L Pulse Rate 88 78 83 Respiratory Rate 20 20 20 Blood Pressure 103/49 L 106/64 Pulse Oximetry 100 100 100 Oxygen Delivery Fraction of Inspired Oxygen 02/28/24 22:31 02/28/24 22:34 02/28/24 22:37 Temperature 96.3 F L 96.3 F L 96.4 F L Pulse Rate 76 86 81 Respiratory Rate 20 20 20 Blood Pressure 107/54 L 110/57 L 106/53 L Pulse Oximetry 100 99 100 Oxygen Delivery Fraction of Inspired Oxygen 02/28/24 22:40 02/28/24 22:43 02/28/24 22:45 Temperature 96.4 F L 96.5 F L 96.5 F L Pulse Rate 90 86 86 Respiratory Rate 20 20 20 Blood Pressure 108/49 L 106/56 L Pulse Oximetry 100 100 100 Oxygen Delivery Fraction of Inspired Oxygen 02/28/24 22:46 02/28/24 22:49 02/28/24 22:52 Temperature 96.5 F L 96.6 F L 96.6 F L Pulse Rate 87 75 82 Respiratory Rate 20 20 20 Blood Pressure 106/63 106/52 L 112/50 L Pulse Oximetry 100 100 100 Oxygen Delivery Fraction of Inspired Oxygen 02/28/24 22:55 02/28/24 23:25 02/28/24 23:26 Temperature 96.7 F L Pulse Rate 83 81 91 Respiratory Rate 20 20 Blood Pressure 109/53 L Pulse Oximetry 100 97 Oxygen Delivery Mechanical Ventilation Fraction of Inspired Oxygen 50 02/28/24 23:30 02/28/24 23:30 02/28/24 23:45 Temperature 96.4 F L Pulse Rate 89 88 82 Respiratory Rate 16 20 Blood Pressure 87/45 L 87/45 L Pulse Oximetry 100 96 Oxygen Delivery Fraction of Inspired Oxygen 02/29/24 00:00 02/29/24 00:00 02/29/24 00:00 Temperature Pulse Rate 80 80 Respiratory Rate 20 Blood Pressure 102/48 L Pulse Oximetry Oxygen Delivery Fraction of Inspired Oxygen 50 02/29/24 00:00 02/29/24 00:00 02/29/24 00:00 Temperature Pulse Rate 80 80 72 Respiratory Rate 20 20 Blood Pressure 102/48 L Pulse Oximetry Oxygen Delivery Fraction of Inspired Oxygen 02/29/24 00:00 02/29/24 01:00 02/29/24 01:00 Temperature Pulse Rate 73 73 Respiratory Rate 20 Blood Pressure 103/58 L Pulse Oximetry Oxygen Delivery Mechanical Ventilation Fraction of Inspired Oxygen 50 02/29/24 01:00 02/29/24 02:00 02/29/24 02:00 Temperature Pulse Rate 73 62 56 L Respiratory Rate 20 Blood Pressure 103/58 L 104/56 L Pulse Oximetry 96 Oxygen Delivery Fraction of Inspired Oxygen 02/29/24 02:00 02/29/24 02:00 02/29/24 02:00 Temperature Pulse Rate 70 70 Respiratory Rate 20 Blood Pressure 104/56 L Pulse Oximetry Oxygen Delivery Fraction of Inspired Oxygen 40 02/29/24 02:00 02/29/24 02:00 02/29/24 02:22 Temperature Pulse Rate 70 70 69 Respiratory Rate 20 Blood Pressure 104/56 L Pulse Oximetry 97 Oxygen Delivery Mechanical Ventilation Fraction of Inspired Oxygen 40 02/29/24 02:45 02/29/24 03:00 02/29/24 03:00 Temperature Pulse Rate 66 66 71 Respiratory Rate Blood Pressure 105/53 L 97/53 L 97/53 L Pulse Oximetry Oxygen Delivery Fraction of Inspired Oxygen 02/29/24 04:00 02/29/24 04:00 02/29/24 04:00 Temperature Pulse Rate 68 66 Respiratory Rate Blood Pressure 81/44 L Pulse Oximetry Oxygen Delivery Fraction of Inspired Oxygen 35 02/29/24 04:00 02/29/24 04:00 02/29/24 04:00 Temperature 96.4 F L Pulse Rate 66 68 Respiratory Rate 20 Blood Pressure 89/51 L 89/51 L Pulse Oximetry 96 Oxygen Delivery Mechanical Ventilation Fraction of Inspired Oxygen 35 02/29/24 04:00 02/29/24 04:00 02/29/24 04:15 Temperature Pulse Rate 66 68 68 Respiratory Rate 20 20 Blood Pressure 81/44 L Pulse Oximetry Oxygen Delivery Fraction of Inspired Oxygen 02/29/24 04:15 02/29/24 04:30 02/29/24 05:00 Temperature Pulse Rate 68 67 67 Respiratory Rate Blood Pressure 81/44 L 94/50 L 88/44 L Pulse Oximetry Oxygen Delivery Fraction of Inspired Oxygen 02/29/24 05:06 02/29/24 05:30 02/29/24 06:00 Temperature Pulse Rate 62 61 62 Respiratory Rate Blood Pressure 89/53 L Pulse Oximetry 96 Oxygen Delivery Mechanical Ventilation Fraction of Inspired Oxygen 35 02/29/24 06:00 02/29/24 06:00 02/29/24 06:00 Temperature 96.7 F L Pulse Rate 62 62 62 Respiratory Rate 20 Blood Pressure 90/46 L 90/46 L 90/46 L Pulse Oximetry 96 Oxygen Delivery Fraction of Inspired Oxygen 02/29/24 06:00 02/29/24 06:00 02/29/24 07:00 Temperature Pulse Rate 62 62 61 Respiratory Rate 20 20 20 Blood Pressure Pulse Oximetry Oxygen Delivery Fraction of Inspired Oxygen 02/29/24 07:00 02/29/24 07:25 02/29/24 08:00 Temperature 96.8 F L Pulse Rate 61 55 L 67 Respiratory Rate 20 20 Blood Pressure 104/49 L 109/55 L Pulse Oximetry 96 Oxygen Delivery Fraction of Inspired Oxygen 02/29/24 08:00 02/29/24 08:00 02/29/24 08:00 Temperature Pulse Rate 66 73 Respiratory Rate Blood Pressure 109/55 L Pulse Oximetry 96 Oxygen Delivery Mechanical Ventilation Fraction of Inspired Oxygen 30 02/29/24 08:00 02/29/24 08:00 02/29/24 08:14 Temperature Pulse Rate 67 74 Respiratory Rate 20 Blood Pressure Pulse Oximetry 96 Oxygen Delivery Mechanical Ventilation Fraction of Inspired Oxygen 30 35 02/29/24 08:14 02/29/24 08:38 02/29/24 08:39 Temperature Pulse Rate 74 68 68 Respiratory Rate 16 20 Blood Pressure 116/62 Pulse Oximetry Oxygen Delivery Fraction of Inspired Oxygen 02/29/24 09:35 02/29/24 10:00 02/29/24 10:00 Temperature Pulse Rate 79 70 73 Respiratory Rate 16 Blood Pressure 97/55 L Pulse Oximetry Oxygen Delivery Fraction of Inspired Oxygen 02/29/24 10:00 02/29/24 10:00 02/29/24 10:00 Temperature Pulse Rate 73 73 73 Respiratory Rate 20 20 Blood Pressure 97/55 L Pulse Oximetry Oxygen Delivery Fraction of Inspired Oxygen 02/29/24 10:00 02/29/24 10:45 02/29/24 10:45 Temperature 96.8 F L Pulse Rate 73 73 73 Respiratory Rate 20 20 Blood Pressure 97/55 L 95/51 L Pulse Oximetry 95 Oxygen Delivery Fraction of Inspired Oxygen 02/29/24 11:00 02/29/24 11:09 02/29/24 11:15 Temperature Pulse Rate 64 61 64 Respiratory Rate Blood Pressure 78/44 L 86/47 L Pulse Oximetry 95 Oxygen Delivery Mechanical Ventilation Fraction of Inspired Oxygen 30 02/29/24 11:30 02/29/24 12:00 Temperature 97.1 F L Pulse Rate 64 63 Respiratory Rate 20 Blood Pressure 103/50 L 105/51 L Pulse Oximetry 94 Oxygen Delivery Fraction of Inspired Oxygen Exam Const: General: no acute distress Other: Intubated/sedated Urinary Catheter: Urinary Catheter: patent and draining and urine clear Results Labs 02/29/24 05:00 02/29/24 05:00 Labs: Short CBC 02/28/24 02/29/24 Range/Units 13:28 05:00 WBC 2.3 L 4.8 (4.5-10.0) K/mm3 Hgb 8.4 L 7.9 L (14.0-18.0) g/dL Hct 27.3 L 25.5 L (42.0-52.0) % Plt Count 284 311 (150-375) k/mm3 BMP 12/02/29/24 02/29/24 13:28 00:15 05:00 Sodium 134 L 135 L 136 L Potassium 5.3 H 5.5 H 5.2 H Chloride 110 H 111 H 111 H Carbon Dioxide 22 22 22 BUN 45 H D 42 H 41 H Creatinine 1.50 H 1.40 H 1.50 H Glucose 133 H 204 H 191 H Calcium 9.7 9.5 9.3 Cardiac Enzymes 02/28/24 02/28/24 02/29/24 Range/Units 13:28 17:13 00:15 Total Creatine Kinase (55-170) U/L Troponin I < 0.012 < 0.012 < 0.012 (0.000-0.034) ng/mL 02/29/24 Range/Units 04:59 Total Creatine Kinase < 20 L (55-170) U/L Troponin I (0.000-0.034) ng/mL Liver Function 02/28/24 02/29/24 Range/Units 13:28 05:00 Total Bilirubin 0.3 0.4 (0.2-1.3) mg/dL AST 15 L 15 L (17-59) U/L ALT 11 11 (6-50) U/L Alkaline Phosphatase 98 90 (38-126) U/L Albumin 2.8 L 2.7 L (3.5-5.1) g/dL Urine 02/28/24 Range/Units 13:44 Urine Color Light yellow (Yellow) Urine Appearance Turbid H (Clear) Urine pH 8.0 (5.0-9.0) Ur Specific [place] 1.014 (1.001-1.035) Urine Protein 3+ H (Negative) mg/dL Urine Glucose (UA) Negative (Negative) mg/dL
[2024-02-29] MEDS: IPRATROPIUM 0.5 MG/ALBUTEROL SULFATE 2.5 MG AMPUL.NEB 3 ML INHALATION ×2 (13:06→19:59)
[2024-02-29 13:34] LABS: Creatinine Urine 26.1 mg/dL
[2024-02-29 13:37] LABS: Potassium Urine Random 16.4 meq/L; Sodium Urine Random 28 meq/L
[2024-02-29 13:59] LABS: Anion Gap 2 mmol/L (4-12); Blood Urea Nitrogen 41 mg/dL (9-20); Calcium 9.2 mg/dL (8.4-10.2); Carbon Dioxide 23 mmol/L (22-30); Chloride 111 mmol/L (98-107); Estimated CRCL calculation 63 ml/min; Estimated Glomerular Filt Rate 50; Glucose 123 mg/dL (65-110); Sodium 136 mmol/L (137-145)
[2024-02-29 14:30] LABS: Eosinophil Urine None Seen % (None Seen); Urine Eos QC 2nd Tech Confirmed
[2024-02-29] MEDS: NOREPINEPHRINE 8 MG/D5W 250 ML 8 MG/250 ML BAG 30 MG IV CONT (16:00)
[2024-02-29 18:13] LABS: Glucose Point of Care 129 mg/dl (65-105)
[2024-02-29] MEDS: NOREPINEPHRINE 8 MG/D5W 250 ML 8 MG/250 ML BAG 37.5 MG IV CONT (23:00)
[2024-02-29 23:17] LABS: Glucose Point of Care 142 mg/dl (65-105)
[2024-03-01] VITALS (59 sets, daily range): BP systolic 94–129; BP diastolic 47–67; PULSE 57–91; RESP 20–22; TEMP 35.6–37.4; O2SAT 95–100
[2024-03-01] MEDS: IPRATROPIUM 0.5 MG/ALBUTEROL SULFATE 2.5 MG AMPUL.NEB 3 ML INHALATION ×4 (02:04→21:30)
[2024-03-01] MEDS: MEROPENEM 1 GM/NS 100 ML 1 GM/100 ML BAG IVPB (02:12)
[2024-03-01 04:42] LABS: Hematocrit 22.5 % (42.0-52.0); Mean Corpuscular HGB Conc 30.7 g/dl (32-36); Mean Corpuscular Hemoglobin 24.9 pg (26-34); Mean Corpuscular Volume 81.2 fl (80-100); Platelet Count Result 197 k/mm3 (150-375); Red Blood Count 2.77 M/mm3 (4.6-6.20); Red Cell Distribution Width 19.3 % (11.5-14.5); White Blood Count 4.8 K/mm3 (4.5-10.0)
[2024-03-01 04:53] LABS: Lactic Acid Reflex 0.7 mmol/L (0.7-2.0)
[2024-03-01 04:55] LABS: Alanine Aminotransferase 7 U/L (6-50); Albumin Level 2.9 g/dL (3.5-5.1); Alkaline Phosphatase 74 U/L (38-126); Anion Gap 4 mmol/L (4-12); Aspartate Amino Transferase 11 U/L (17-59); Bilirubin,Total 0.7 mg/dL (0.2-1.3); Blood Urea Nitrogen 37 mg/dL (9-20); CRP 7.8 mg/dL (<1.0); Calcium 9.4 mg/dL (8.4-10.2); Carbon Dioxide 23 mmol/L (22-30); Chloride 112 mmol/L (98-107); Creatine Kinase < 20 U/L (55-170); Estimated CRCL calculation 59 ml/min; Estimated Glomerular Filt Rate 47; Glucose 163 mg/dL (65-110); Magnesium 2.2 mg/dL (1.6-2.3); Phosphorus 3.8 mg/dL (2.5-4.5); Potassium 4.3 mmol/L (3.4-5.0); Sodium 139 mmol/L (137-145)
[2024-03-01 05:03] LABS: Hemoglobin 6.9 g/dL (14.0-18.0)
[2024-03-01 05:05] LABS: INR 2.6; Prothrombin Time 28.4 Seconds (11.1-14.7)
[2024-03-01 05:06] LABS: Partial Thromboplastin Time 74.3 Seconds (22.3-36.8)
[2024-03-01 05:13] LABS: Band Neutrophils Percent 7 % (0-6); Eosinophils Absolute Manual 0.28 K/mm3 (0.02-0.50); Eosinophils Percent Manual 6 % (0-4); Lymphocytes Absolute Manual 0.76 K/mm3 (1.1-4.5); Monocytes Absolute Manual 0.19 K/mm3 (0.1-0.90); Monocytes Percent Manual 4 % (3-9); Neutrophils Absolute Manual 3.55 K/mm3 (1.3-6.7); Neutrophils Percent Manual 67 % (46-73); Nucleated Red Blood Cells 1 %; Total Cells Counted 100
[2024-03-01 05:14] LABS: Anisocytosis 1+; Hypochromasia 1+; Platelet Estimate Adequate (Adequate); Schistocytes None Seen; Stomatocytes 1+
[2024-03-01] MEDS: LEVOTHYROXINE SODIUM 100 MCG TABLET PO (05:16)
[2024-03-01 05:17] LABS: Alveolar/Arterial O2 Gradient 70.6 mmHg; Base Excess ABG -2.4 mEq/l (+/-2.0); Carboxyhemoglobin 1.8 % THb (0-2.0); Fractional Inspired Oxygen 30 %; HCO3 ABG 22.6 mEq/l (22.0-26.0); Methemoglobin ABG 0.2 %THb (0-1.5); Oxygen Content ABG 10.1 %vol (16.0-22.0); Oxygen Saturation ABG 97.2 % (95.0-100.0); Oxyhemoglobin 95.7 % THb (90.0-100.0); PCO2 ABG 39.8 mmHg (35.0-45.0); PO2 ABG 96.5 mmHg (80.0-100.0); PO2 FiO2 Ratio Arterial Blood 3.22 %; Reduced Hemoglobin 2.3 %THb (0-5.0); pH ABG 7.372 (7.350-7.450)
[2024-03-01 05:29] LABS: Device VENTILATOR; Modified Allen's Test Pass; Site Drawn RIGHT RADIAL; Total Hemoglobin 7.4 g/dL (12.0-18.0)
[2024-03-01 05:30] LABS: Arterial Blood Gas PEEP 5 cmH2O; Arterial Blood Gas Tidal Volume 450 ml; Arterial Blood Gas Vent Mode CMV; Arterial Blood Gas Ventilator rate 20 /MIN
[2024-03-01 08:11] LABS: Lactate Dehydrogenase 85 U/L (120-246)
[2024-03-01] MEDS: PANTOPRAZOLE SODIUM IV 40 MG VIAL IV PUSH (08:11)
[2024-03-01] MEDS: MICONAZOLE NITRATE 2% CREAM 30 GM TUBE 1 APPLIC TOPICAL ×2 (08:11→16:02)
[2024-03-01] MEDS: PHYTONADIONE ADULT INJ 10 MG in DEXTROSE 5% IN WATER 50 ML 100 MG IVPB (08:11)
[2024-03-01] MEDS: polyethylene glycoL 3350 17 GM POWD.PACK PO (08:11)
[2024-03-01 08:35] LABS: Iron 33 ug/dL (49-181)
[2024-03-01 08:50] LABS: Percent Iron Saturation 20 % (20-50); TOTAL IRON BINDING CAPACITY 168 ug/dL (265-497)
[2024-03-01 09:34] LABS: Folic Acid 8.2 ng/mL (2.76->20)
--- NOTE | 2024-03-01 10:32 | P.PNCA_ITS ---
Progress Note: A&P Assessment and Plan (1) Bradycardia: Code(s): R00.1 - Bradycardia, unspecified Status: Acute (2) Paroxysmal atrial fibrillation: Code(s): I48.0 - Paroxysmal atrial fibrillation Status: Acute Plan 1. Paroxysmal atrial fibrillation Chads Vasc 3 2. Diastolic CHF 3. Anemia 4. Sepsis/metabolic encephalopathy 5. COPD -most likely the bradycardia was secondary to hypothermia. He does have subclinical hypothyroidism as well. Currently no invasive evaluation is needed. -Weaned off dopamine, heart rate stable in the 60's. Avoid AV dolores agents for now -he is on anticoagulation for his paroxysmal atrial fibrillation. His hemoglobin has since decreased significantly from his prior hemoglobin in November. Received 1 unit PRBC's this a.m. He has a history of heme-positive stool loose stools. GI evaluation will help. Cardiology will sign off please call with questions. Subjective Date/time seen: 03/01/24 10:32 Interval history: Cardiology follow-up for atrial fibrillation, bradycardia Date of service 03/01/2024: Heart rate improved, off dopamine at this point. Remains intubated and sedated Review of Systems Review of Systems: ROS unobtainable: Yes unobtainable due to endotracheal tube, unobtainable due to medical condition and unobtainable due to mental status Exam Const: Other: Intubated and sedated HENMT: Other: OETT in place Resp: Other: Mechanically ventilated Cardio: Rate: regular rate Rhythm: abnormal rhythm GI: Auscultation: normal bowel sounds Urinary Catheter: Urinary Catheter: patent and draining Neuro: General: No patient oriented x3 Extrem: Other: chronic skin changes associated with vascular insufficiency bilateral lower extremities Objective Data Vital Signs Vital Signs: Vital Signs - 24 hr 02/29/24 10:45 02/29/24 10:45 02/29/24 11:00 Temperature Pulse Rate 73 73 64 Respiratory Rate 20 Blood Pressure 95/51 L 78/44 L Pulse Oximetry Oxygen Delivery Fraction of Inspired Oxygen 02/29/24 11:09 02/29/24 11:15 02/29/24 11:30 Temperature Pulse Rate 61 64 64 Respiratory Rate Blood Pressure 86/47 L 103/50 L Pulse Oximetry 95 Oxygen Delivery Mechanical Ventilation Fraction of Inspired Oxygen 30 02/29/24 12:00 02/29/24 12:00 02/29/24 12:00 Temperature 36.2 C L Pulse Rate 63 63 63 Respiratory Rate 20 Blood Pressure 105/51 L 105/51 L 105/51 L Pulse Oximetry 94 Oxygen Delivery Fraction of Inspired Oxygen 02/29/24 12:00 02/29/24 12:00 02/29/24 12:00 Temperature Pulse Rate 63 63 Respiratory Rate 20 20 Blood Pressure Pulse Oximetry 94 Oxygen Delivery Mechanical Ventilation Fraction of Inspired Oxygen 30 02/29/24 12:00 02/29/24 12:00 02/29/24 12:45 Temperature Pulse Rate 63 65 Respiratory Rate 20 Blood Pressure Pulse Oximetry Oxygen Delivery Fraction of Inspired Oxygen 30 02/29/24 13:01 02/29/24 13:07 02/29/24 13:55 Temperature Pulse Rate 66 66 63 Respiratory Rate 20 20 Blood Pressure Pulse Oximetry 94 Oxygen Delivery Mechanical Ventilation Fraction of Inspired Oxygen 30 02/29/24 14:00 02/29/24 14:00 02/29/24 14:00 Temperature 36.4 C L Pulse Rate 67 67 67 Respiratory Rate 20 Blood Pressure 111/47 L 111/47 L Pulse Oximetry 97 Oxygen Delivery Fraction of Inspired Oxygen 02/29/24 14:00 02/29/24 14:00 02/29/24 14:00 Temperature Pulse Rate 67 67 67 Respiratory Rate 20 20 Blood Pressure 111/47 L Pulse Oximetry Oxygen Delivery Fraction of Inspired Oxygen 02/29/24 14:30 02/29/24 14:30 02/29/24 14:45 Temperature Pulse Rate 68 68 62 Respiratory Rate 20 Blood Pressure 112/37 L 112/37 L Pulse Oximetry Oxygen Delivery Fraction of Inspired Oxygen 02/29/24 14:45 02/29/24 16:00 02/29/24 16:00 Temperature Pulse Rate 64 61 61 Respiratory Rate Blood Pressure 91/39 L 101/75 101/75 Pulse Oximetry Oxygen Delivery Fraction of Inspired Oxygen 02/29/24 16:00 02/29/24 16:00 02/29/24 16:00 Temperature 36.7 C Pulse Rate 61 Respiratory Rate 20 Blood Pressure 101/75 Pulse Oximetry 98 96 Oxygen Delivery Mechanical Ventilation Fraction of Inspired Oxygen 30 30 02/29/24 16:00 02/29/24 16:00 02/29/24 16:00 Temperature Pulse Rate 61 61 61 Respiratory Rate 20 20 Blood Pressure Pulse Oximetry Oxygen Delivery Fraction of Inspired Oxygen 02/29/24 16:45 02/29/24 16:53 02/29/24 18:00 Temperature 37.1 C Pulse Rate 67 66 68 Respiratory Rate 20 Blood Pressure 90/39 L 102/47 L Pulse Oximetry 99 98 Oxygen Delivery Mechanical Ventilation Fraction of Inspired Oxygen 30 02/29/24 18:00 02/29/24 18:00 02/29/24 18:00 Temperature Pulse Rate 68 68 68 Respiratory Rate 20 20 Blood Pressure Pulse Oximetry Oxygen Delivery Fraction of Inspired Oxygen 02/29/24 18:14 02/29/24 20:00 02/29/24 20:00 Temperature Pulse Rate 70 Respiratory Rate Blood Pressure 98/41 L Pulse Oximetry 95 Oxygen Delivery Mechanical Ventilation Fraction of Inspired Oxygen 30 30 02/29/24 20:00 02/29/24 20:00 02/29/24 20:00 Temperature 37.3 C Pulse Rate 71 71 71 Respiratory Rate 20 Blood Pressure 119/48 L 119/48 L 119/48 L Pulse Oximetry 95 Oxygen Delivery Fraction of Inspired Oxygen 02/29/24 20:00 02/29/24 20:00 02/29/24 20:00 Temperature Pulse Rate 71 71 71 Respiratory Rate 20 20 Blood Pressure 119/48 L Pulse Oximetry Oxygen Delivery Fraction of Inspired Oxygen 02/29/24 20:00 02/29/24 20:00 02/29/24 20:03 Temperature Pulse Rate 72 72 72 Respiratory Rate 20 Blood Pressure Pulse Oximetry 96 Oxygen Delivery Mechanical Ventilation Fraction of Inspired Oxygen 30 02/29/24 20:11 02/29/24 20:19 02/29/24 20:34 Temperature Pulse Rate 73 75 76 Respiratory Rate 20 Blood Pressure 104/39 L 104/59 L Pulse Oximetry Oxygen Delivery Fraction of Inspired Oxygen 02/29/24 21:00 02/29/24 21:15 02/29/24 22:00 Temperature Pulse Rate 76 74 73 Respiratory Rate Blood Pressure 115/61 101/56 L Pulse Oximetry Oxygen Delivery Fraction of Inspired Oxygen 02/29/24 22:00 02/29/24 22:00 02/29/24 22:00 Temperature 37.5 C Pulse Rate 73 73 73 Respiratory Rate 20 Blood Pressure 119/47 L 119/47 L 119/47 L Pulse Oximetry 95 Oxygen Delivery Fraction of Inspired Oxygen 02/29/24 22:00 02/29/24 22:00 02/29/24 22:15 Temperature Pulse Rate 73 73 72 Respiratory Rate 20 20 Blood Pressure 99/65 L Pulse Oximetry Oxygen Delivery Fraction of Inspired Oxygen 02/29/24 22:30 02/29/24 23:00 02/29/24 23:00 Temperature Pulse Rate 75 74 74 Respiratory Rate Blood Pressure 109/51 L 115/63 115/63 Pulse Oximetry Oxygen Delivery Fraction of Inspired Oxygen 02/29/24 23:00 02/29/24 23:15 02/29/24 23:30 Temperature Pulse Rate 74 72 Respiratory Rate Blood Pressure 115/63 117/59 L Pulse Oximetry Oxygen Delivery Fraction of Inspired Oxygen 30 02/29/24 23:30 02/29/24 23:35 02/29/24 23:36 Temperature Pulse Rate 71 74 Respiratory Rate Blood Pressure 116/66 Pulse Oximetry 97 96 Oxygen Delivery Mechanical Ventilation Mechanical Ventilation Fraction of Inspired Oxygen 30 30 03/01/24 00:00 03/01/24 00:00 03/01/24 00:00 Temperature 37.4 C Pulse Rate 73 73 73 Respiratory Rate 20 Blood Pressure 123/67 123/67 123/67 Pulse Oximetry 95 Oxygen Delivery Fraction of Inspired Oxygen 03/01/24 00:00 03/01/24 00:00 03/01/24 00:00 Temperature Pulse Rate 73 73 73 Respiratory Rate 20 20 Blood Pressure 123/67 Pulse Oximetry Oxygen Delivery Fraction of Inspired Oxygen 03/01/24 00:00 03/01/24 00:15 03/01/24 00:30 Temperature Pulse Rate 70 72 73 Respiratory Rate Blood Pressure 117/56 L 124/58 L Pulse Oximetry Oxygen Delivery Fraction of Inspired Oxygen 03/01/24 00:45 03/01/24 01:00 03/01/24 01:15 Temperature Pulse Rate 71 70 68 Respiratory Rate Blood Pressure 116/59 L 119/54 L 129/66 Pulse Oximetry Oxygen Delivery Fraction of Inspired Oxygen 03/01/24 01:30 03/01/24 02:00 03/01/24 02:00 Temperature Pulse Rate 76 75 75 Respiratory Rate Blood Pressure 117/57 L 104/56 L 104/56 L Pulse Oximetry Oxygen Delivery Fraction of Inspired Oxygen 03/01/24 02:00 03/01/24 02:00 03/01/24 02:00 Temperature Pulse Rate 75 75 75 Respiratory Rate 20 20 Blood Pressure 104/56 L Pulse Oximetry Oxygen Delivery Fraction of Inspired Oxygen 03/01/24 02:00 03/01/24 02:00 03/01/24 02:04 Temperature 37.1 C Pulse Rate 68 75 72 Respiratory Rate 20 Blood Pressure 104/56 L Pulse Oximetry 96 98 Oxygen Delivery Mechanical Ventilation Fraction of Inspired Oxygen 30 03/01/24 02:04 03/01/24 02:10 03/01/24 02:15 Temperature Pulse Rate 72 70 68 Respiratory Rate 20 21 H Blood Pressure 111/53 L Pulse Oximetry Oxygen Delivery Fraction of Inspired Oxygen 03/01/24 03:00 03/01/24 03:00 03/01/24 03:30 Temperature Pulse Rate 68 68 69 Respiratory Rate Blood Pressure 105/53 L 105/53 L 114/58 L Pulse Oximetry Oxygen Delivery Fraction of Inspired Oxygen 03/01/24 03:45 03/01/24 04:00 03/01/24 04:00 Temperature Pulse Rate 67 68 68 Respiratory Rate Blood Pressure 116/56 L 121/53 L 121/53 L Pulse Oximetry Oxygen Delivery Fraction of Inspired Oxygen 03/01/24 04:00 03/01/24 04:00 03/01/24 04:00 Temperature 36.5 C Pulse Rate 68 68 68 Respiratory Rate 20 20 20 Blood Pressure 121/53 L Pulse Oximetry 98 Oxygen Delivery Fraction of Inspired Oxygen 03/01/24 04:00 03/01/24 04:00 03/01/24 04:00 Temperature Pulse Rate 67 Respiratory Rate Blood Pressure Pulse Oximetry 98 Oxygen Delivery Mechanical Ventilation Fraction of Inspired Oxygen 30 03/01/24 04:30 03/01/24 04:45 03/01/24 05:00 Temperature Pulse Rate 68 65 66 Respiratory Rate Blood Pressure 121/60 110/59 L 109/54 L Pulse Oximetry Oxygen Delivery Fraction of Inspired Oxygen 03/01/24 05:00 03/01/24 05:15 03/01/24 05:30 Temperature Pulse Rate 67 67 67 Respiratory Rate 20 Blood Pressure 109/54 L 94/47 L Pulse Oximetry Oxygen Delivery Fraction of Inspired Oxygen 03/01/24 05:46 03/01/24 06:00 03/01/24 06:00 Temperature 36.2 C L Pulse Rate 69 67 67 Respiratory Rate 20 Blood Pressure 109/50 L Pulse Oximetry 100 97 Oxygen Delivery Mechanical Ventilation Fraction of Inspired Oxygen 30 03/01/24 06:00 03/01/24 06:00 03/01/24 06:00 Temperature Pulse Rate 67 67 67 Respiratory Rate Blood Pressure 109/50 L 109/50 L 109/50 L Pulse Oximetry Oxygen Delivery Fraction of Inspired Oxygen 03/01/24 06:00 03/01/24 08:00 03/01/24 08:00 Temperature Pulse Rate 67 66 66 Respiratory Rate 20 20 Blood Pressure 95/50 L Pulse Oximetry Oxygen Delivery Fraction of Inspired Oxygen 03/01/24 08:00 03/01/24 08:00 03/01/24 08:00 Temperature Pulse Rate 70 Respiratory Rate Blood Pressure Pulse Oximetry 96 Oxygen Delivery Mechanical Ventilation Fraction of Inspired Oxygen 30 30 03/01/24 08:00 03/01/24 08:07 03/01/24 08:10 Temperature 36.0 C L 36.0 C L Pulse Rate 65 61 60 Respiratory Rate 20 22 H 20 Blood Pressure 95/50 L 95/50 L Pulse Oximetry 99 99 Oxygen Delivery Fraction of Inspired Oxygen 03/01/24 08:14 03/01/24 08:22 03/01/24 08:23 Temperature 35.9 C L Pulse Rate 57 L 71 68 Respiratory Rate 20 20 Blood Pressure 118/50 L Pulse Oximetry 98 96 Oxygen Delivery Mechanical Ventilation Fraction of Inspired Oxygen 30 03/01/24 08:26 03/01/24 09:22 03/01/24 09:31 Temperature 35.8 C L Pulse Rate 62 91 61 Respiratory Rate 20 Blood Pressure 118/50 L 115/56 L 115/56 L Pulse Oximetry 97 Oxygen Delivery Fraction of Inspired Oxygen 03/01/24 10:00 03/01/24 10:00 03/01/24 10:00 Temperature Pulse Rate 65 65 65 Respiratory Rate 20 Blood Pressure 105/58 L Pulse Oximetry Oxygen Delivery Fraction of Inspired Oxygen 03/01/24 10:00 Temperature 35.7 C L Pulse Rate 65 Respiratory Rate 20 Blood Pressure 105/58 L Pulse Oximetry 97 Oxygen Delivery Fraction of Inspired Oxygen Intake/Output Intake/Output: Intake & Output 02/27/24 02/28/24 02/29/24 03/01/24 23:59 23:59 23:59 23:59 Intake Total 4943.6 2403.8 1021.1 Output Total 2500 1400 Balance 4943.6 -96.2 -378.9 Meds/Results Medications: Active Medications Generic Name Dose Route Start Last Admin Trade Name Freq PRN Reason Stop Dose Admin Acetaminophen 650 mg 02/28/24 23:29 Acetaminophen 325 Mg Tablet PO Q6H PRN Mild Pain (1-3) or Fever Albuterol/Ipratropium 3 ml 02/29/24 14:00 03/01/24 08:09 Ipratropium 0.5 Mg/Albuterol Sulfate 2.5 Mg Ampul.Neb 3 Ml INHALATION 3 ml Q6HRT HERMILO Administration Apixaban 5 mg 02/29/24 09:00 02/29/24 20:24 Apixaban 5 Mg Tablet PO 5 mg Q12HR HERMILO Administration Dextrose 12.5 gm 02/28/24 23:29 Dextrose 50% 25 Gm/50 Ml Syringe IV PUSH PRN PRN Hypoglycemia Protocol Glucagon 1 mg 02/28/24 23: Glucagon For Inj 1 Mg Vial IM PRN PRN Hypoglycemia Protocol Glucose 15 gm 02/28/24 23: Glucose Oral Gel 15 Gm Of Glucse In 37.5 Gm Tube PO PRN PRN Hypoglycemia Protocol Vasopressin 100 units/ 100 mls @ 1.2 mls/hr 02/28/24 17:20 03/01/24 06:00 Dextrose IV CONT 0 units/min .Q72H HERMILO 0 mls/hr Infusion 0.02 UNITS/MIN Fentanyl Citrate 2,500 mcg in 250 mls @ 2.5 mls/hr 02/28/24 18:36 03/01/24 10:00 Fentanyl 2,500 Mcg/Ns 250 Ml IV CONT 03/02/24 18:35 25 mcg/hr .Q72H STA 2.5 mls/hr Titration Protocol 25 MCG/HR Dextrose 1,000 mls @ 100 mls/hr 02/28/24 23:29 Dextrose 5% 1,000 Ml IVPB PRN PRN Hypoglycemia Protocol Norepinephrine Bitartrate 8 mg in 250 mls @ 13.125 mls/hr 02/29/24 04:45 03/01/24 10:00 Levophed 8 Mg/D5w 250 Ml IV CONT 7 mcg/min .Q19H3M HERMILO 13.13 mls/hr Titration Protocol 7 MCG/MIN Dopamine HCl/Dextrose 400 mg in 250 mls @ 0 mls/hr 02/29/24 05:05 03/01/24 06:00 Dopamine 400 Mg/D5w 250 Ml IV CONT 0 mcg/kg/min .Q0M HERMILO 0 mls/hr Titration Protocol 0 MCG/KG/MIN Sodium Chloride 250 mls @ 30 mls/hr 03/01/24 05:49 03/01/24 08:27 Normal Saline Iv IV CONT 03/01/24 14:08 Not Given .Q8H20M STA Ceftriaxone Sodium 2 gm in 100 mls @ 200 mls/hr 03/01/24 10:25 Rocephin 2 Gm/Ns 100 Ml IVPB Q24H [facility] Insulin Aspart 3 - 6 units 02/29/24 00:00 03/01/24 05:07 Insulin Aspart (*Bkc) 100 Units/Ml SUB-Q Not Given Q6HR [facility] Protocol Levothyroxine Sodium 100 mcg 02/29/24 06:30 03/01/24 05:16 Levothyroxine Sodium 100 Mcg Tablet PO 100 mcg DAILY@0630 [facility] Administration Miconazole Nitrate 1 applic 02/29/24 09:00 03/01/24 08:11 Miconazole Nitrate 2% Cream 30 Gm Tube TOPICAL 1 applic BID HERMILO Administration Pantoprazole Sodium 40 mg 02/29/24 09:00 03/01/24 08:11 Pantoprazole Sodium Iv 40 Mg Vial IV PUSH 40 mg QAM HERMILO Administration Polyethylene Glycol 17 gm 03/01/24 09:00 03/01/24 08:11 Polyethylene Glycol 3350 17 Gm Powd.Pack PO 17 gm QAM HERMILO Administration Radiology Results: ITS Impressions Chest/Abdomen/Pelvis CT 02/28/24 16:45 IMPRESSION: Fecal stasis distending the rectum and distal large bowel consistent with fecal impaction. Bilateral double-J stents without hydronephrosis. Large right and moderate left-sided pleural effusions. Inflammatory change surrounding the gallbladder and pancreas, consistent with possible pancreatitis and cholecystitis. Head CT 02/28/24 16:59 Impression: No acute intracranial hemorrhage or suspicious mass effect. Abdomen X-Ray 02/28/24 19:17 IMPRESSION: Nasogastric tube in good position and ready for immediate use. Chest X-Ray 03/01/24 06:29 Impression: Extensive hazy pulmonary disease. Correlate for advanced pulmonary edema versus ARDS or pneumonia. Small right pleural effusion. Support tubes, as above. Labs Labs: Laboratory Results - last 24 hr 02/29/24 02/29/24 02/29/24 04:59 11:40 12:46 WBC RBC Hgb Hct MCV MCH MCHC RDW Plt Count MPV Immature Gran % (Auto) Neut % (Auto) Lymph % (Auto) Nance % (Auto) Eos % (Auto) Baso % (Auto) Lymph # (Auto) Nance # (Auto) Eos # (Auto) Baso # (Auto) Abs Immat Gran (auto) Absolute Neuts (auto) Absolute Nucleated RBC Total Counted Neutrophils % (Manual) Band Neutrophils % Lymphocytes % (Manual) Monocytes % (Manual) Eosinophils % (Manual) Nucleated RBC % Abs Neuts (Manual) Abs Lymphs (Manual) Abs Monocytes (Manual) Absolute Eos (Manual) Nucleated RBCs Platelet Estimate Hypochromasia Anisocytosis Stomatocytes Schistocytes PT INR APTT Puncture Site ABG pH ABG pCO2 ABG pO2 ABG PO2/FiO2 Ratio ABG HCO3 ABG O2 Saturation ABG O2 Content ABG Base Excess A-a Gradient Oxyhemoglobin Carboxyhemoglobin Methemoglobin Reduced Hemoglobin Total Hemoglobin O2 Delivery Device O2 Liters/Min Minute Volume Vent Rate Vent Mode FiO2 Tidal Volume PEEP Peak Inspir Pressure Pressure Support Sodium Potassium Chloride Carbon Dioxide Anion Gap BUN Creatinine Estim Creat Clear Calc Estimated GFR Glucose POC Capillary Glucose 124 H Lactic Acid Calcium Phosphorus Magnesium Iron TIBC % Saturation Total Bilirubin AST ALT Alkaline Phosphatase Lactate Dehydrogenase Total Creatine Kinase < 20 L C-Reactive Protein Total Protein Albumin Vitamin B12 Folate Urine Eosinophils None seen Ur Random Sodium 28 Ur Random Potassium 16.4 Urine Creatinine 26.1 Vancomycin Trough Blood Type Antibody Screen Crossmatch 02/29/24 02/29/24 02/29/24 13:39 18:10 23:02 WBC RBC Hgb Hct MCV MCH MCHC RDW Plt Count MPV Immature Gran % (Auto) Neut % (Auto) Lymph % (Auto) Nance % (Auto) Eos % (Auto) Baso % (Auto) Lymph # (Auto) Nance # (Auto) Eos # (Auto) Baso # (Auto) Abs Immat Gran (auto) Absolute Neuts (auto) Absolute Nucleated RBC Total Counted Neutrophils % (Manual) Band Neutrophils % Lymphocytes % (Manual) Monocytes % (Manual) Eosinophils % (Manual) Nucleated RBC % Abs Neuts (Manual) Abs Lymphs (Manual) Abs Monocytes (Manual) Absolute Eos (Manual) Nucleated RBCs Platelet Estimate Hypochromasia Anisocytosis Stomatocytes Schistocytes PT INR APTT Puncture Site ABG pH ABG pCO2 ABG pO2 ABG PO2/FiO2 Ratio ABG HCO3 ABG O2 Saturation ABG O2 Content ABG Base Excess A-a Gradient Oxyhemoglobin Carboxyhemoglobin Methemoglobin Reduced Hemoglobin Total Hemoglobin O2 Delivery Device O2 Liters/Min Minute Volume Vent Rate Vent Mode FiO2 Tidal Volume PEEP Peak Inspir Pressure Pressure Support Sodium 136 L Potassium 5.0 Chloride 111 H Carbon Dioxide 23 Anion Gap 2 L BUN 41 H Creatinine 1.40 H Estim Creat Clear Calc 63 Estimated GFR 50 L Glucose 123 H POC Capillary Glucose 129 H 142 H Lactic Acid Calcium 9.2 Phosphorus Magnesium Iron TIBC % Saturation Total Bilirubin AST ALT Alkaline Phosphatase Lactate Dehydrogenase Total Creatine Kinase C-Reactive Protein Total Protein Albumin Vitamin B12 Folate Urine Eosinophils Ur Random Sodium Ur Random Potassium Urine Creatinine Vancomycin Trough Blood Type Antibody Screen Crossmatch 03/01/24 03/01/24 03/01/24 04:37 04:42 06:12 WBC 4.8 RBC 2.77 L Hgb 6.9 L* Hct 22.5 L MCV 81.2 MCH 24.9 L MCHC 30.7 L RDW 19.3 H Plt Count 197 MPV 9.0 Immature Gran % (Auto) Not Reportable Neut % (Auto) Not Reportable Lymph % (Auto) Not Reportable Nance % (Auto) Not Reportable Eos % (Auto) Not Reportable Baso % (Auto) Not Reportable Lymph # (Auto) Not Reportable Nance # (Auto) Not Reportable Eos # (Auto) Not Reportable Baso # (Auto) Not Reportable Abs Immat Gran (auto) Not Reportable Absolute Neuts (auto) Not Reportable Absolute Nucleated RBC Not Reportable Total Counted 100 Neutrophils % (Manual) 67 Band Neutrophils % 7 H Lymphocytes % (Manual) 16.0 L Monocytes % (Manual) 4 Eosinophils % (Manual) 6 H Nucleated RBC % Not Reportable Abs Neuts (Manual) 3.55 Abs Lymphs (Manual) 0.76 L Abs Monocytes (Manual) 0.19 Absolute Eos (Manual) 0.28 Nucleated RBCs 1 Platelet Estimate Adequate Hypochromasia 1+ Anisocytosis 1+ Stomatocytes 1+ Schistocytes None seen PT 28.4 H INR 2.6 APTT 74.3 H Puncture Site Right radial ABG pH 7.372 ABG pCO2 39.8 ABG pO2 96.5 ABG PO2/FiO2 Ratio 3.22 ABG HCO3 22.6 ABG O2 Saturation 97.2 ABG O2 Content 10.1 L ABG Base Excess -2.4 A-a Gradient 70.6 Oxyhemoglobin 95.7 Carboxyhemoglobin 1.8 Methemoglobin 0.2 Reduced Hemoglobin 2.3 Total Hemoglobin 7.4 L* O2 Delivery Device Ventilator O2 Liters/Min Not Reportable Minute Volume Not Reportable Vent Rate 20 Vent Mode Cmv FiO2 30 Tidal Volume 450 PEEP 5 Peak Inspir Pressure Not Reportable Pressure Support Not Reportable Sodium 139 Potassium 4.3 Chloride 112 H Carbon Dioxide 23 Anion Gap 4 BUN 37 H Creatinine 1.50 H Estim Creat Clear Calc 59 Estimated GFR 47 L Glucose 163 H POC Capillary Glucose Lactic Acid 0.7 Calcium 9.4 Phosphorus 3.8 Magnesium 2.2 Iron TIBC % Saturation Total Bilirubin 0.7 AST 11 L ALT 7 Alkaline Phosphatase 74 Lactate Dehydrogenase Total Creatine Kinase < 20 L C-Reactive Protein 7.8 H Total Protein 7.0 Albumin 2.9 L Vitamin B12 Folate Urine Eosinophils Ur Random Sodium Ur Random Potassium Urine Creatinine Vancomycin Trough 21.0 H Blood Type O Positive Antibody Screen Negative Crossmatch See Detail 03/01/24 07:57 WBC RBC Hgb Hct MCV MCH MCHC RDW Plt Count MPV Immature Gran % (Auto) Neut % (Auto) Lymph % (Auto) Nance % (Auto) Eos % (Auto) Baso % (Auto) Lymph # (Auto) Nance # (Auto) Eos # (Auto) Baso # (Auto) Abs Immat Gran (auto) Absolute Neuts (auto) Absolute Nucleated RBC Total Counted Neutrophils % (Manual) Band Neutrophils % Lymphocytes % (Manual) Monocytes % (Manual) Eosinophils % (Manual) Nucleated RBC % Abs Neuts (Manual) Abs Lymphs (Manual) Abs Monocytes (Manual) Absolute Eos (Manual) Nucleated RBCs Platelet Estimate Hypochromasia Anisocytosis Stomatocytes Schistocytes PT INR APTT Puncture Site ABG pH ABG pCO2 ABG pO2 ABG PO2/FiO2 Ratio ABG HCO3 ABG O2 Saturation ABG O2 Content ABG Base Excess A-a Gradient Oxyhemoglobin Carboxyhemoglobin Methemoglobin Reduced Hemoglobin Total Hemoglobin O2 Delivery Device O2 Liters/Min Minute Volume Vent Rate Vent Mode FiO2 Tidal Volume PEEP Peak Inspir Pressure Pressure Support Sodium Potassium Chloride Carbon Dioxide Anion Gap BUN Creatinine Estim Creat Clear Calc Estimated GFR Glucose POC Capillary Glucose Lactic Acid Calcium Phosphorus Magnesium Iron 33 L TIBC 168 L % Saturation 20 Total Bilirubin AST ALT Alkaline Phosphatase Lactate Dehydrogenase 85 L Total Creatine Kinase C-Reactive Protein Total Protein Albumin Vitamin B12 890.0 Folate 8.2 Urine Eosinophils Ur Random Sodium Ur Random Potassium Urine Creatinine Vancomycin Trough Blood Type Antibody Screen Crossmatch Quality VTE Prophylaxis VTE prophylaxis: pharmacologic ordered (Eliquis)
--- NOTE | 2024-03-01 11:12 | PCNFU ---
Nutrition Follow-Up Complete: Increased protein energy needs related to sepsis as evidenced by need for trickle feeding Meet estimated nutrition needs - Progressing. Able to advance tube feeding to goal rate due to reduced need for pressors and improved MAP Goal: Pt current nutrition is Vital 1.2 @ 20 ml/g. Nutrition recommendation: Advance tube feeding to goal rate Vital 1.2 @ 70 ml/h. Advance 10 ml q 4 hours. Last recorded weight is 130.3 kg. Bowel Motility: 0 BMs recorded Labs Reviewed: Alb 2.9, GFR 47, BUN 37, Cre 1.5, Glu 163 Meds Noted: Levophed, fentanyl Skin: Stage 3 L heel. Can address when tolerating TF at goal Additional Notes: Pressors are coming down and MAP improved so tube feeding can advance to goal of 70 ml/h. Agree with orders Monitoring meds, tube feeding tolerance, vitals, labs, weights, plan of care Follow up Thursday and Fridays. Daily in rounds
--- NOTE | 2024-03-01 11:20 | WPDINTPN ---
Progress Note: A&P Assessment and Plan (1) Septic shock: Code(s): A41.9 - Sepsis, unspecified organism; R65.21 - Severe sepsis with septic shock Status: Acute Assessment and Plan: 02/28/2024: Patient presented with bradycardia, hypothermia, leukocytosis, lactic acidosis, hypotension. Patient received adequate amount of IV fluids per sepsis protocol despite which he remained hypotensive, central line was inserted and started on dopamine and Levophed -likely etiology UTI -02/27: Blood cultures have been obtained and pending -02/27: Urine cultures growing Proteus mirabilis (sensitive to ceftriaxone, cefepime, meropenem, Zosyn) -continue cefepime and vanc, (02/28) -status post albumin for volume expansion -continue Levophed to maintain MAP > 65 mmHg or greater at all times for adequate end organ perfusion -off dopamine infusion as bradycardia has resolved 30% (2) Acute respiratory failure: Code(s): J96.00 - Acute respiratory failure, unspecified whether with hypoxia or hypercapnia Status: Acute Assessment and Plan: Patient was intubated on 02/27 in the ER for acute encephalopathy likely related to septic shock and for airway protection -currently on CMV mode of ventilation, 30% FiO2 and peep of 5 -chest x-ray and ABGs reviewed, ventilator adjusted -continue bronchodilators -sedated with fentanyl infusion only, maintain RASS of 0 to -1, daily SBT and SAT 02/27: CT chest, abdomen and pelvis IMPRESSION: Fecal stasis distending the rectum and distal large bowel consistent with fecal impaction. Bilateral double-J stents without hydronephrosis. Large right and moderate left-sided pleural effusions. Inflammatory change surrounding the gallbladder and pancreas, consistent with possible pancreatitis and cholecystitis. (3) Acute metabolic encephalopathy: Code(s): G93.41 - Metabolic encephalopathy Status: Acute Assessment and Plan: Acute metabolic encephalopathy, multifactorial most likely related to UTI, infection, septic shock, hypothermia, hypovolemia and hypotension -continue to treat underlying cause -currently sedated and intubated (4) Bradycardia: Code(s): R00.1 - Bradycardia, unspecified Status: Acute Assessment and Plan: Bradycardia could be related to hypothermia, septic shock -off dopamine infusion, bradycardia has resolved, continue to monitor (5) Hypothermia: Code(s): T68.XXXA - Hypothermia, initial encounter Status: Acute Assessment and Plan: Hypothermia most likely related to septic shock, currently normal body temperature -continue to monitor (6) Urinary tract infection: Qualifiers: Encounter type: initial encounter Indwelling urinary catheter type: indwelling urethral catheter Urinary tract infection type: catheter-associated UTI Qualified Code(s): T83.511A - Infection and inflammatory reaction due to indwelling urethral catheter, initial encounter; N39.0 - Urinary tract infection, site not specified Code(s): N39.0 - Urinary tract infection, site not specified Status: Acute Assessment and Plan: UA was reflective of UTI -urine cultures as above -continue antibiotics as above (7) Electrolyte abnormality: Code(s): E87.8 - Other disorders of electrolyte and fluid balance, not elsewhere classified Status: Acute Assessment and Plan: Hyperkalemia likely related to acidosis, septic shock, acute kidney injury -patient was treated with insulin and D50, Lokelma, sodium bicarbonate and albuterol inhaler -potassium is normalized, will continue to monitor (8) Acute kidney injury: Code(s): N17.9 - Acute kidney failure, unspecified Status: Acute Assessment and Plan: 02/27: Patient presented with septic shock, hypovolemia, creatinine was 1.50, baseline creatinine in is 0.70-1.20 -adequately fluid-resuscitated -patient had adequate urine output, creatinine stable -CT scan of the abdomen did not show any hydronephrosis -likely etiology of septic shock is UTI -continue to monitor renal function, electrolytes and urine output -urine lytes not reflective of prerenal picture, urine eosinophils were negative, CK levels were normal (9) Ureteral stent present: Code(s): Z96.0 - Presence of urogenital implants Status: Acute Assessment and Plan: Bilateral double J stents are present extending into the patient's bladder, on CT abdomen and pelvis, no hydronephrosis. Bulky calcification within the right kidney, no hydronephrosis -continue IV fluids, antibiotics -appreciate urology evaluation and recommendations (10) Chronic obstructive pulmonary disease: Code(s): J44.9 - Chronic obstructive pulmonary disease, unspecified Status: Acute Assessment and Plan: Patient has a history of COPD, continue bronchodilators, currently on mechanical ventilation with oxygen -also on antibiotics (11) Insulin dependent diabetes mellitus: Status: Chronic Assessment and Plan: Sliding scale insulin Accu-Cheks Plan DVT prophylaxis: Eliquis on hold due to anemia and drop in hemoglobin requiring packed RBC transfusion Stress ulcer prophylaxis: Protonix Nutrition: Will start trickle tube feeds Code Status: Full code, discussed with spouse, had an extensive talk with her regarding code status, she wants it to be a full code for now, she does not want the patient to suffer but this time she decided to intubate him. She is going to think about code status and get back to us, but otherwise he is a full code for now 03/01: Discussed with patient's , updated with patient's condition plan of care . She is going to talk to the family and plan for a family conference Critical Care Time Spent: 36 minutes Due to a high probability of clinically significant, life threatening deterioration, the patient required my highest level of preparedness to intervene emergently and I personally spent this critical care time directly and personally managing the patient. This critical care time included obtaining a history; examining the patient; pulse oximetry; ordering and review of studies; arranging urgent treatment with development of a management plan; evaluation of patient's response to treatment; frequent reassessment; and discussions with other providers. It was exclusive of separately billable procedures and treating other patients and teaching time. Please see Assessment and Plan section and the rest of the note for further information on patient assessment and treatment This dictation may have been done utilizing a voice recognition system. Attempts have been made to correct errors. However, there may be uncorrected grammatical, spelling, and recognitions errors present. Subjective Date/time seen: 03/01/24 11:20 Interval history: Reason for consult: Altered mental status, septic shock, bradycardia, hypothermia, respiratory failure, Proteus mirabilis UTI, acute kidney injury, anemia 03/01/2024: Patient seen and examined the remains to be on CMV mode of ventilation, peep of 5, 30% FiO2. , sedated with fentanyl infusion only. Patient does not open his eyes or follow simple commands. Dropped his hemoglobin to 6.9 this morning, received a unit of packed RBCs. INR is 2.6 this morning. Urine output has been adequate, patient is afebrile, tolerating tube feeds. Remains on Levophed infusion. Off dopamine infusion Review of Systems Review of Systems: ROS unobtainable: Yes unobtainable due to endotracheal tube, unobtainable due to medical condition and unobtainable due to mental status Exam Narrative: General: Patient is intubated, sedated, in no acute distress Lungs/Chest: Trachea central, coarse breath sounds bilaterally, decreased at bases, No crackles or wheezing. Cardiac: Irregularly irregular, rate in the 50-60s Abdomen: Hypoactive bowel sounds. Obese. Soft. NT. ND. There appears and mesh underlying the skin in the midline Extremities: Bilateral feet have edema. He has 2 superficial wounds on the lateral aspect of left leg. He also has a wound which does not appear infected on the left heel. He has chronic venous stasis changes and edema : Coats in place Neurologic: Intubated and sedated, does not open his eyes or follow simple commands. Does not withdraw to pain in extremities. Skin: As above Psych: Unable to assess at this time Objective Data Vital Signs Vital Signs: Vital Signs - 24 hr 02/29/24 11:30 02/29/24 12:00 02/29/24 12:00 Temperature 97.1 F L Pulse Rate 64 63 63 Respiratory Rate 20 Blood Pressure 103/50 L 105/51 L 105/51 L Pulse Oximetry 94 Oxygen Delivery Fraction of Inspired Oxygen 02/29/24 12:00 02/29/24 12:00 02/29/24 12:00 Temperature Pulse Rate 63 63 63 Respiratory Rate 20 20 Blood Pressure 105/51 L Pulse Oximetry Oxygen Delivery Fraction of Inspired Oxygen 02/29/24 12:00 02/29/24 12:00 02/29/24 12:00 Temperature Pulse Rate 63 Respiratory Rate Blood Pressure Pulse Oximetry 94 Oxygen Delivery Mechanical Ventilation Fraction of Inspired Oxygen 30 30 02/29/24 12:45 02/29/24 13:01 02/29/24 13:07 Temperature Pulse Rate 65 66 66 Respiratory Rate 20 20 Blood Pressure Pulse Oximetry 94 Oxygen Delivery Mechanical Ventilation Fraction of Inspired Oxygen 30 02/29/24 13:55 02/29/24 14:00 02/29/24 14:00 Temperature 97.5 F L Pulse Rate 63 67 67 Respiratory Rate 20 20 Blood Pressure 111/47 L Pulse Oximetry 97 Oxygen Delivery Fraction of Inspired Oxygen 02/29/24 14:00 02/29/24 14:00 02/29/24 14:00 Temperature Pulse Rate 67 67 67 Respiratory Rate 20 20 Blood Pressure 111/47 L Pulse Oximetry Oxygen Delivery Fraction of Inspired Oxygen 02/29/24 14:00 02/29/24 14:30 02/29/24 14:30 Temperature Pulse Rate 67 68 68 Respiratory Rate Blood Pressure 111/47 L 112/37 L 112/37 L Pulse Oximetry Oxygen Delivery Fraction of Inspired Oxygen 02/29/24 14:45 02/29/24 14:45 02/29/24 16:00 Temperature Pulse Rate 62 64 61 Respiratory Rate 20 Blood Pressure 91/39 L 101/75 Pulse Oximetry Oxygen Delivery Fraction of Inspired Oxygen 02/29/24 16:00 02/29/24 16:00 02/29/24 16:00 Temperature 98.1 F Pulse Rate 61 61 Respiratory Rate 20 Blood Pressure 101/75 101/75 Pulse Oximetry 98 96 Oxygen Delivery Mechanical Ventilation Fraction of Inspired Oxygen 30 02/29/24 16:00 02/29/24 16:00 02/29/24 16:00 Temperature Pulse Rate 61 61 Respiratory Rate 20 Blood Pressure Pulse Oximetry Oxygen Delivery Fraction of Inspired Oxygen 30 02/29/24 16:00 02/29/24 16:45 02/29/24 16:53 Temperature Pulse Rate 61 67 66 Respiratory Rate 20 Blood Pressure 90/39 L Pulse Oximetry 99 Oxygen Delivery Mechanical Ventilation Fraction of Inspired Oxygen 30 02/29/24 18:00 02/29/24 18:00 02/29/24 18:00 Temperature 98.8 F Pulse Rate 68 68 68 Respiratory Rate 20 20 Blood Pressure 102/47 L Pulse Oximetry 98 Oxygen Delivery Fraction of Inspired Oxygen 02/29/24 18:00 02/29/24 18:14 02/29/24 20:00 Temperature Pulse Rate 68 70 Respiratory Rate 20 Blood Pressure 98/41 L Pulse Oximetry Oxygen Delivery Fraction of Inspired Oxygen 30 02/29/24 20:00 02/29/24 20:00 02/29/24 20:00 Temperature 99.2 F Pulse Rate 71 71 Respiratory Rate 20 Blood Pressure 119/48 L 119/48 L Pulse Oximetry 95 95 Oxygen Delivery Mechanical Ventilation Fraction of Inspired Oxygen 30 02/29/24 20:00 02/29/24 20:00 02/29/24 20:00 Temperature Pulse Rate 71 71 71 Respiratory Rate 20 Blood Pressure 119/48 L 119/48 L Pulse Oximetry Oxygen Delivery Fraction of Inspired Oxygen 02/29/24 20:00 02/29/24 20:00 02/29/24 20:00 Temperature Pulse Rate 71 72 72 Respiratory Rate 20 Blood Pressure Pulse Oximetry 96 Oxygen Delivery Mechanical Ventilation Fraction of Inspired Oxygen 30 02/29/24 20:03 02/29/24 20:11 02/29/24 20:19 Temperature Pulse Rate 72 73 75 Respiratory Rate 20 20 Blood Pressure 104/39 L Pulse Oximetry Oxygen Delivery Fraction of Inspired Oxygen 02/29/24 20:34 02/29/24 21:00 02/29/24 21:15 Temperature Pulse Rate 76 76 74 Respiratory Rate Blood Pressure 104/59 L 115/61 101/56 L Pulse Oximetry Oxygen Delivery Fraction of Inspired Oxygen 02/29/24 22:00 02/29/24 22:00 02/29/24 22:00 Temperature 99.5 F Pulse Rate 73 73 73 Respiratory Rate 20 Blood Pressure 119/47 L 119/47 L Pulse Oximetry 95 Oxygen Delivery Fraction of Inspired Oxygen 02/29/24 22:00 02/29/24 22:00 02/29/24 22:00 Temperature Pulse Rate 73 73 73 Respiratory Rate 20 20 Blood Pressure 119/47 L Pulse Oximetry Oxygen Delivery Fraction of Inspired Oxygen 02/29/24 22:15 02/29/24 22:30 02/29/24 23:00 Temperature Pulse Rate 72 75 74 Respiratory Rate Blood Pressure 99/65 L 109/51 L 115/63 Pulse Oximetry Oxygen Delivery Fraction of Inspired Oxygen 02/29/24 23:00 02/29/24 23:00 02/29/24 23:15 Temperature Pulse Rate 74 74 72 Respiratory Rate Blood Pressure 115/63 115/63 117/59 L Pulse Oximetry Oxygen Delivery Fraction of Inspired Oxygen 02/29/24 23:30 02/29/24 23:30 02/29/24 23:35 Temperature Pulse Rate 71 74 Respiratory Rate Blood Pressure 116/66 Pulse Oximetry 97 Oxygen Delivery Mechanical Ventilation Fraction of Inspired Oxygen 30 30 02/29/24 23:36 03/01/24 00:00 03/01/24 00:00 Temperature 99.4 F Pulse Rate 73 73 Respiratory Rate 20 Blood Pressure 123/67 123/67 Pulse Oximetry 96 95 Oxygen Delivery Mechanical Ventilation Fraction of Inspired Oxygen 30 03/01/24 00:00 03/01/24 00:00 03/01/24 00:00 Temperature Pulse Rate 73 73 73 Respiratory Rate 20 Blood Pressure 123/67 123/67 Pulse Oximetry Oxygen Delivery Fraction of Inspired Oxygen 03/01/24 00:00 03/01/24 00:00 03/01/24 00:15 Temperature Pulse Rate 73 70 72 Respiratory Rate 20 Blood Pressure 117/56 L Pulse Oximetry Oxygen Delivery Fraction of Inspired Oxygen 03/01/24 00:30 03/01/24 00:45 03/01/24 01:00 Temperature Pulse Rate 73 71 70 Respiratory Rate Blood Pressure 124/58 L 116/59 L 119/54 L Pulse Oximetry Oxygen Delivery Fraction of Inspired Oxygen 03/01/24 01:15 03/01/24 01:30 03/01/24 02:00 Temperature Pulse Rate 68 76 75 Respiratory Rate Blood Pressure 129/66 117/57 L 104/56 L Pulse Oximetry Oxygen Delivery Fraction of Inspired Oxygen 03/01/24 02:00 03/01/24 02:00 03/01/24 02:00 Temperature Pulse Rate 75 75 75 Respiratory Rate 20 Blood Pressure 104/56 L 104/56 L Pulse Oximetry Oxygen Delivery Fraction of Inspired Oxygen 03/01/24 02:00 03/01/24 02:00 03/01/24 02:00 Temperature 98.7 F Pulse Rate 75 68 75 Respiratory Rate 20 20 Blood Pressure 104/56 L Pulse Oximetry 96 Oxygen Delivery Fraction of Inspired Oxygen 03/01/24 02:04 03/01/24 02:04 03/01/24 02:10 Temperature Pulse Rate 72 72 70 Respiratory Rate 20 21 H Blood Pressure Pulse Oximetry 98 Oxygen Delivery Mechanical Ventilation Fraction of Inspired Oxygen 03/01/24 02:15 03/01/24 03:00 03/01/24 03:00 Temperature Pulse Rate 68 68 68 Respiratory Rate Blood Pressure 111/53 L 105/53 L 105/53 L Pulse Oximetry Oxygen Delivery Fraction of Inspired Oxygen 03/01/24 03:30 03/01/24 03:45 03/01/24 04:00 Temperature Pulse Rate 69 67 68 Respiratory Rate Blood Pressure 114/58 L 116/56 L 121/53 L Pulse Oximetry Oxygen Delivery Fraction of Inspired Oxygen 03/01/24 04:00 03/01/24 04:00 03/01/24 04:00 Temperature Pulse Rate 68 68 68 Respiratory Rate 20 20 Blood Pressure 121/53 L Pulse Oximetry Oxygen Delivery Fraction of Inspired Oxygen 03/01/24 04:00 03/01/24 04:00 03/01/24 04:00 Temperature 97.7 F Pulse Rate 68 Respiratory Rate 20 Blood Pressure 121/53 L Pulse Oximetry 98 98 Oxygen Delivery Mechanical Ventilation Fraction of Inspired Oxygen 30 30 03/01/24 04:00 03/01/24 04:30 03/01/24 04:45 Temperature Pulse Rate 67 68 65 Respiratory Rate Blood Pressure 121/60 110/59 L Pulse Oximetry Oxygen Delivery Fraction of Inspired Oxygen 03/01/24 05:00 03/01/24 05:00 03/01/24 05:15 Temperature Pulse Rate 66 67 67 Respiratory Rate Blood Pressure 109/54 L 109/54 L 94/47 L Pulse Oximetry Oxygen Delivery Fraction of Inspired Oxygen 03/01/24 05:30 03/01/24 05:46 03/01/24 06:00 Temperature Pulse Rate 67 69 67 Respiratory Rate 20 Blood Pressure Pulse Oximetry 100 Oxygen Delivery Mechanical Ventilation Fraction of Inspired Oxygen 30 03/01/24 06:00 03/01/24 06:00 03/01/24 06:00 Temperature 97.2 F L Pulse Rate 67 67 67 Respiratory Rate 20 Blood Pressure 109/50 L 109/50 L 109/50 L Pulse Oximetry 97 Oxygen Delivery Fraction of Inspired Oxygen 03/01/24 06:00 03/01/24 06:00 03/01/24 08:00 Temperature Pulse Rate 67 67 66 Respiratory Rate 20 Blood Pressure 109/50 L 95/50 L Pulse Oximetry Oxygen Delivery Fraction of Inspired Oxygen 03/01/24 08:00 03/01/24 08:00 03/01/24 08:00 Temperature Pulse Rate 66 70 Respiratory Rate 20 Blood Pressure Pulse Oximetry 96 Oxygen Delivery Mechanical Ventilation Fraction of Inspired Oxygen 30 03/01/24 08:00 03/01/24 08:00 03/01/24 08:07 Temperature 96.8 F L 96.8 F L Pulse Rate 65 61 Respiratory Rate 20 22 H Blood Pressure 95/50 L 95/50 L Pulse Oximetry 99 99 Oxygen Delivery Fraction of Inspired Oxygen 30 03/01/24 08:10 03/01/24 08:14 03/01/24 08:22 Temperature 96.7 F L Pulse Rate 60 57 L 71 Respiratory Rate 20 20 Blood Pressure 118/50 L Pulse Oximetry 98 96 Oxygen Delivery Mechanical Ventilation Fraction of Inspired Oxygen 30 03/01/24 08:23 03/01/24 08:26 03/01/24 09:22 Temperature 96.4 F L Pulse Rate 68 62 91 Respiratory Rate 20 20 Blood Pressure 118/50 L 115/56 L Pulse Oximetry 97 Oxygen Delivery Fraction of Inspired Oxygen 03/01/24 09:31 03/01/24 10:00 03/01/24 10:00 Temperature Pulse Rate 61 65 65 Respiratory Rate 20 Blood Pressure 115/56 L 105/58 L Pulse Oximetry Oxygen Delivery Fraction of Inspired Oxygen 03/01/24 10:00 03/01/24 10:00 03/01/24 10:15 Temperature 96.3 F L Pulse Rate 65 65 66 Respiratory Rate 20 Blood Pressure 105/58 L 110/51 L Pulse Oximetry 97 Oxygen Delivery Fraction of Inspired Oxygen 03/01/24 10:16 03/01/24 10:47 Temperature 96.2 F L Pulse Rate 66 65 Respiratory Rate 20 Blood Pressure 110/51 L Pulse Oximetry 97 96 Oxygen Delivery Mechanical Ventilation Fraction of Inspired Oxygen 30 Intake/Output Intake/Output: Intake & Output 02/27/24 02/28/24 02/29/24 03/01/24 23:59 23:59 23:59 23:59 Intake Total 4943.6 2403.8 1022.1 Output Total 2500 1400 Balance 4943.6 -96.2 -377.9 Meds/Results Medications: Active Medications Generic Name Dose Route Start Last Admin Trade Name Freq PRN Reason Stop Dose Admin Acetaminophen 650 mg 02/28/24 23:29 Acetaminophen 325 Mg Tablet PO Q6H PRN Mild Pain (1-3) or Fever Albuterol/Ipratropium 3 ml 02/29/24 14:00 03/01/24 08:09 Ipratropium 0.5 Mg/Albuterol Sulfate 2.5 Mg Ampul.Neb 3 Ml INHALATION 3 ml Q6HRT HERMILO Administration Apixaban 5 mg 02/29/24 09:00 02/29/24 20:24 Apixaban 5 Mg Tablet PO 5 mg Q12HR HERMILO Administration Dextrose 12.5 gm 02/28/24 23:29 Dextrose 50% 25 Gm/50 Ml Syringe IV PUSH PRN PRN Hypoglycemia Protocol Glucagon 1 mg 02/28/24 23:29 Glucagon For Inj 1 Mg Vial IM PRN PRN Hypoglycemia Protocol Glucose 15 gm 02/28/24 23:29 Glucose Oral Gel 15 Gm Of Glucse In 37.5 Gm Tube PO PRN PRN Hypoglycemia Protocol Vasopressin 100 units/ 100 mls @ 1.2 mls/hr 02/28/24 17:20 03/01/24 06:00 Dextrose IV CONT 0 units/min .Q72H HERMILO 0 mls/hr Infusion 0.02 UNITS/MIN Fentanyl Citrate 2,500 mcg in 250 mls @ 2.5 mls/hr 02/28/24 18:36 03/01/24 10:00 Fentanyl 2,500 Mcg/Ns 250 Ml IV CONT 03/02/24 18:35 25 mcg/hr .Q72H STA 2.5 mls/hr Titration Protocol 25 MCG/HR Dextrose 1,000 mls @ 100 mls/hr 02/28/24 23:29 Dextrose 5% 1,000 Ml IVPB PRN PRN Hypoglycemia Protocol Norepinephrine Bitartrate 8 mg in 250 mls @ 11.25 mls/hr 02/29/24 04:45 03/01/24 10:15 Levophed 8 Mg/D5w 250 Ml IV CONT 6 mcg/min .[id number] HERMILO 11.25 mls/hr Titration Protocol 6 MCG/MIN Dopamine HCl/Dextrose 400 mg in 250 mls @ 0 mls/hr 02/29/24 05:05 03/01/24 06:00 Dopamine 400 Mg/D5w 250 Ml IV CONT 0 mcg/kg/min .Q0M HERMILO 0 mls/hr Titration Protocol 0 MCG/KG/MIN Sodium Chloride 250 mls @ 30 mls/hr 03/01/24 05:49 03/01/24 08:27 Normal Saline Iv IV CONT 03/01/24 14:08 Not Given .Q8H20M STA Ceftriaxone Sodium 2 gm in 100 mls @ 200 mls/hr 03/01/24 10:25 Rocephin 2 Gm/Ns 100 Ml IVPB DAILY [facility] Insulin Aspart 3 - 6 units 02/29/24 00:00 03/01/24 05:07 Insulin Aspart (*Bkc) 100 Units/Ml SUB-Q Not Given Q6HR [facility] Protocol Levothyroxine Sodium 100 mcg 02/29/24 06:30 03/01/24 05:16 Levothyroxine Sodium 100 Mcg Tablet PO 100 mcg DAILY@0630 HERMILO Administration Miconazole Nitrate 1 applic 02/29/24 09:00 03/01/24 08:11 Miconazole Nitrate 2% Cream 30 Gm Tube TOPICAL 1 applic BID HERMILO Administration Pantoprazole Sodium 40 mg 12/30/24 09:00 03/01/24 08:11 Pantoprazole Sodium Iv 40 Mg Vial IV PUSH 40 mg QAM HERMILO Administration Polyethylene Glycol 17 gm 03/01/24 09:00 03/01/24 08:11 Polyethylene Glycol 3350 17 Gm Powd.Pack PO 17 gm QAM HERMILO Administration Radiology Results: ITS Impressions Chest/Abdomen/Pelvis CT 02/28/24 16:45 IMPRESSION: Fecal stasis distending the rectum and distal large bowel consistent with fecal impaction. Bilateral double-J stents without hydronephrosis. Large right and moderate left-sided pleural effusions. Inflammatory change surrounding the gallbladder and pancreas, consistent with possible pancreatitis and cholecystitis. Head CT 02/28/24 16:59 Impression: No acute intracranial hemorrhage or suspicious mass effect. Abdomen X-Ray 02/28/24 19:17 IMPRESSION: Nasogastric tube in good position and ready for immediate use. Chest X-Ray 03/01/24 06:29 Impression: Extensive hazy pulmonary disease. Correlate for advanced pulmonary edema versus ARDS or pneumonia. Small right pleural effusion. Support tubes, as above. Labs Labs: Laboratory Results - last 24 hr 02/29/24 02/29/24 02/29/24 04:59 11:40 12:46 WBC RBC Hgb Hct MCV MCH MCHC RDW Plt Count MPV Immature Gran % (Auto) Neut % (Auto) Lymph % (Auto) [place] % (Auto) Eos % (Auto) Baso % (Auto) Lymph # (Auto) [place] # (Auto) Eos # (Auto) Baso # (Auto) Abs Immat Gran (auto) Absolute Neuts (auto) Absolute Nucleated RBC Total Counted Neutrophils % (Manual) Band Neutrophils % Lymphocytes % (Manual) Monocytes % (Manual) Eosinophils % (Manual) Nucleated RBC % Abs Neuts (Manual) Abs Lymphs (Manual) Abs Monocytes (Manual) Absolute Eos (Manual) Nucleated RBCs Platelet Estimate Hypochromasia Anisocytosis Stomatocytes Schistocytes PT INR APTT Puncture Site ABG pH ABG pCO2 ABG pO2 ABG PO2/FiO2 Ratio ABG HCO3 ABG O2 Saturation ABG O2 Content ABG Base Excess A-a Gradient Oxyhemoglobin Carboxyhemoglobin Methemoglobin Reduced Hemoglobin Total Hemoglobin O2 Delivery Device O2 Liters/Min Minute Volume Vent Rate Vent Mode FiO2 Tidal Volume PEEP Peak Inspir Pressure Pressure Support Sodium Potassium Chloride Carbon Dioxide Anion Gap BUN Creatinine Estim Creat Clear Calc Estimated GFR Glucose POC Capillary Glucose 124 H Lactic Acid Calcium Phosphorus Magnesium Iron TIBC % Saturation Total Bilirubin AST ALT Alkaline Phosphatase Lactate Dehydrogenase Total Creatine Kinase < 20 L C-Reactive Protein Total Protein Albumin Vitamin B12 Folate Urine Eosinophils None seen Ur Random Sodium 28 Ur Random Potassium 16.4 Urine Creatinine 26.1 Vancomycin Trough Blood Type Antibody Screen Crossmatch 02/29/24 02/29/24 02/29/24 13:39 18:10 23:02 WBC RBC Hgb Hct MCV MCH MCHC RDW Plt Count MPV Immature Gran % (Auto) Neut % (Auto) Lymph % (Auto) [place] % (Auto) Eos % (Auto) Baso % (Auto) Lymph # (Auto) [place] # (Auto) Eos # (Auto) Baso # (Auto) Abs Immat Gran (auto) Absolute Neuts (auto) Absolute Nucleated RBC Total Counted Neutrophils % (Manual) Band Neutrophils % Lymphocytes % (Manual) Monocytes % (Manual) Eosinophils % (Manual) Nucleated RBC % Abs Neuts (Manual) Abs Lymphs (Manual) Abs Monocytes (Manual) Absolute Eos (Manual) Nucleated RBCs Platelet Estimate Hypochromasia Anisocytosis Stomatocytes Schistocytes PT INR APTT Puncture Site ABG pH ABG pCO2 ABG pO2 ABG PO2/FiO2 Ratio ABG HCO3 ABG O2 Saturation ABG O2 Content ABG Base Excess A-a Gradient Oxyhemoglobin Carboxyhemoglobin Methemoglobin Reduced Hemoglobin Total Hemoglobin O2 Delivery Device O2 Liters/Min Minute Volume Vent Rate Vent Mode FiO2 Tidal Volume PEEP Peak Inspir Pressure Pressure Support Sodium 136 L Potassium 5.0 Chloride 111 H Carbon Dioxide 23 Anion Gap 2 L BUN 41 H Creatinine 1.40 H Estim Creat Clear Calc 63 Estimated GFR 50 L Glucose 123 H POC Capillary Glucose 129 H 142 H Lactic Acid Calcium 9.2 Phosphorus Magnesium Iron TIBC % Saturation Total Bilirubin AST ALT Alkaline Phosphatase Lactate Dehydrogenase Total Creatine Kinase C-Reactive Protein Total Protein Albumin Vitamin B12 Folate Urine Eosinophils Ur Random Sodium Ur Random Potassium Urine Creatinine Vancomycin Trough Blood Type Antibody Screen Crossmatch 03/01/24 03/01/24 03/01/24 04:37 04:42 06:12 WBC 4.8 RBC 2.77 L Hgb 6.9 L* Hct 22.5 L MCV 81.2 MCH 24.9 L MCHC 30.7 L RDW 19.3 H Plt Count 197 MPV 9.0 Immature Gran % (Auto) Not Reportable Neut % (Auto) Not Reportable Lymph % (Auto) Not Reportable [place] % (Auto) Not Reportable Eos % (Auto) Not Reportable Baso % (Auto) Not Reportable Lymph # (Auto) Not Reportable [place] # (Auto) Not Reportable Eos # (Auto) Not Reportable Baso # (Auto) Not Reportable Abs Immat Gran (auto) Not Reportable Absolute Neuts (auto) Not Reportable Absolute Nucleated RBC Not Reportable Total Counted 100 Neutrophils % (Manual) 67 Band Neutrophils % 7 H Lymphocytes % (Manual) 16.0 L Monocytes % (Manual) 4 Eosinophils % (Manual) 6 H Nucleated RBC % Not Reportable Abs Neuts (Manual) 3.55 Abs Lymphs (Manual) 0.76 L Abs Monocytes (Manual) 0.19 Absolute Eos (Manual) 0.28 Nucleated RBCs 1 Platelet Estimate Adequate Hypochromasia 1+ Anisocytosis 1+ Stomatocytes 1+ Schistocytes None seen PT 28.4 H INR 2.6 APTT 74.3 H Puncture Site Right radial ABG pH 7.372 ABG pCO2 39.8 ABG pO2 96.5 ABG PO2/FiO2 Ratio 3.22 ABG HCO3 22.6 ABG O2 Saturation 97.2 ABG O2 Content 10.1 L ABG Base Excess -2.4 A-a Gradient 70.6 Oxyhemoglobin 95.7 Carboxyhemoglobin 1.8 Methemoglobin 0.2 Reduced Hemoglobin 2.3 Total Hemoglobin 7.4 L* O2 Delivery Device Ventilator O2 Liters/Min Not Reportable Minute Volume Not Reportable Vent Rate 20 Vent Mode Cmv FiO2 30 Tidal Volume 450 PEEP 5 Peak Inspir Pressure Not Reportable Pressure Support Not Reportable Sodium 139 Potassium 4.3 Chloride 112 H Carbon Dioxide 23 Anion Gap 4 BUN 37 H Creatinine 1.50 H Estim Creat Clear Calc 59 Estimated GFR 47 L Glucose 163 H POC Capillary Glucose Lactic Acid 0.7 Calcium 9.4 Phosphorus 3.8 Magnesium 2.2 Iron TIBC % Saturation Total Bilirubin 0.7 AST 11 L ALT 7 Alkaline Phosphatase 74 Lactate Dehydrogenase Total Creatine Kinase < 20 L C-Reactive Protein 7.8 H Total Protein 7.0 Albumin 2.9 L Vitamin B12 Folate Urine Eosinophils Ur Random Sodium Ur Random Potassium Urine Creatinine Vancomycin Trough 21.0 H Blood Type O Positive Antibody Screen Negative Crossmatch See Detail 03/01/24 07:57 WBC RBC Hgb Hct MCV MCH MCHC RDW Plt Count MPV Immature Gran % (Auto) Neut % (Auto) Lymph % (Auto) [place] % (Auto) Eos % (Auto) Baso % (Auto) Lymph # (Auto) [place] # (Auto) Eos # (Auto) Baso # (Auto) Abs Immat Gran (auto) Absolute Neuts (auto) Absolute Nucleated RBC Total Counted Neutrophils % (Manual) Band Neutrophils % Lymphocytes % (Manual) Monocytes % (Manual) Eosinophils % (Manual) Nucleated RBC % Abs Neuts (Manual) Abs Lymphs (Manual) Abs Monocytes (Manual) Absolute Eos (Manual) Nucleated RBCs Platelet Estimate Hypochromasia Anisocytosis Stomatocytes Schistocytes PT INR APTT Puncture Site ABG pH ABG pCO2 ABG pO2 ABG PO2/FiO2 Ratio ABG HCO3 ABG O2 Saturation ABG O2 Content ABG Base Excess A-a Gradient Oxyhemoglobin Carboxyhemoglobin Methemoglobin Reduced Hemoglobin Total Hemoglobin O2 Delivery Device O2 Liters/Min Minute Volume Vent Rate Vent Mode FiO2 Tidal Volume PEEP Peak Inspir Pressure Pressure Support Sodium Potassium Chloride Carbon Dioxide Anion Gap BUN Creatinine Estim Creat Clear Calc Estimated GFR Glucose POC Capillary Glucose Lactic Acid Calcium Phosphorus Magnesium Iron 33 L TIBC 168 L % Saturation 20 Total Bilirubin AST ALT Alkaline Phosphatase Lactate Dehydrogenase 85 L Total Creatine Kinase C-Reactive Protein Total Protein Albumin Vitamin B12 890.0 Folate 8.2 Urine Eosinophils Ur Random Sodium Ur Random Potassium Urine Creatinine Vancomycin Trough Blood Type Antibody Screen Crossmatch
[2024-03-01] MEDS: NOREPINEPHRINE 8 MG/D5W 250 ML 8 MG/250 ML BAG 9.38 MG IV CONT (11:30)
[2024-03-01] MEDS: cefTRIAXone 2 GM/NS 100 ML 2 GM/100 ML BAG IVPB (11:31)
[2024-03-01 11:38] LABS: Glucose Point of Care 183 mg/dl (65-105)
[2024-03-01 11:44] LABS: Hematocrit 23.5 % (42.0-52.0); Hemoglobin 7.2 g/dL (14.0-18.0); Mean Corpuscular HGB Conc 30.6 g/dl (32-36); Mean Corpuscular Hemoglobin 25.1 pg (26-34); Mean Corpuscular Volume 81.9 fl (80-100); Mean Platelet Volume 9.9 fl (7.4-10.4); Platelet Count Result 179 k/mm3 (150-375); Red Blood Count 2.87 M/mm3 (4.6-6.20); Red Cell Distribution Width 18.9 % (11.5-14.5); White Blood Count 4.2 K/mm3 (4.5-10.0)
[2024-03-01] MEDS: CENTRAL LINE FLUSH 10 ML IV PUSH ×2 (14:10→20:05)
[2024-03-01 17:02] LABS: Glucose Point of Care 215 mg/dl (65-105)
[2024-03-01] MEDS: FENTANYL 2,500MCG/NS250ML(*CRX 2,500 MCG/250 ML BAG IV CONT (17:31)
[2024-03-01] MEDS: INSULIN ASPART (*BKC) 100 UNITS/ML SUB-Q (17:32)
[2024-03-01 19:52] LABS: Hematocrit 22.8 % (42.0-52.0); Hemoglobin 7.1 g/dL (14.0-18.0); Mean Corpuscular HGB Conc 31.1 g/dl (32-36); Mean Corpuscular Hemoglobin 25.1 pg (26-34); Mean Corpuscular Volume 80.6 fl (80-100); Platelet Count Result 152 k/mm3 (150-375); Red Blood Count 2.83 M/mm3 (4.6-6.20); Red Cell Distribution Width 18.9 % (11.5-14.5)
[2024-03-01] MEDS: MINERAL OIL/WHITE PETROLATUM OINTMENT 1 APPLIC EACH EYE (20:05)
[2024-03-01 23:24] LABS: Glucose Point of Care 198 mg/dl (65-105)
[2024-03-02] VITALS (20 sets, daily range): BP systolic 64–117; BP diastolic 22–60; PULSE 68–96; RESP 15–25; TEMP 36.2–37.2; O2SAT 96–98
[2024-03-02 02:19] LABS: Haptoglobin 121 mg/dL (43-212)
[2024-03-02] MEDS: IPRATROPIUM 0.5 MG/ALBUTEROL SULFATE 2.5 MG AMPUL.NEB 3 ML INHALATION ×2 (03:11→08:41)
[2024-03-02 04:29] LABS: IFOB Positive Control Positive; Immunochemical Fecal Occult Bl Negative (N)
[2024-03-02 05:30] LABS: Basophils Percent Auto 0.4 % (0.2-1.2); Eosinophils Absolute Auto 0.2 K/mm3 (0-0.3); Eosinophils Percent Auto 3.2 % (0-4.4); Hematocrit 29.3 % (42.0-52.0); Hemoglobin 9.1 g/dL (14.0-18.0); Immature Granulocyte Absolute 0.03 K/mm3 (0.00-0.031); Immature Granulocyte Percent A 0.4 % (0-0.5); Lymphocytes Absolute Auto 0.66 K/mm3 (0.9-3.2); Lymphocytes Percent Auto 9.5 % (18.3-44.2); Mean Corpuscular HGB Conc 31.1 g/dl (32-36); Mean Corpuscular Hemoglobin 25.2 pg (26-34); Mean Corpuscular Volume 81.2 fl (80-100); Mean Platelet Volume 9.6 fl (7.4-10.4); Monocytes Absolute Auto 1.1 K/mm3 (0.1-0.6); Monocytes Percent Auto 16.1 % (2.6-8.5); Neutrophils Absolute Auto 4.9 K/mm3 (1.3-6.7); Neutrophils Percent Auto 70.4 % (45.5-73.1); Nucleated Red Blood Cells Perc 1.2 % (0.0-0.2); Platelet Count Result 201 k/mm3 (150-375); Red Blood Count 3.61 M/mm3 (4.6-6.20); Red Cell Distribution Width 18.9 % (11.5-14.5)
[2024-03-02 05:42] LABS: Alanine Aminotransferase 8 U/L (6-50); Albumin Level 3.1 g/dL (3.5-5.1); Alkaline Phosphatase 115 U/L (38-126); Anion Gap 5 mmol/L (4-12); Aspartate Amino Transferase 13 U/L (17-59); Bilirubin,Total 0.7 mg/dL (0.2-1.3); Blood Urea Nitrogen 34 mg/dL (9-20); Calcium 9.8 mg/dL (8.4-10.2); Carbon Dioxide 23 mmol/L (22-30); Chloride 112 mmol/L (98-107); Estimated CRCL calculation 63 ml/min; Estimated Glomerular Filt Rate 50; Glucose 255 mg/dL (65-110); Magnesium 2.3 mg/dL (1.6-2.3); Phosphorus 3.5 mg/dL (2.5-4.5); Sodium 140 mmol/L (137-145)
[2024-03-02] MEDS: LEVOTHYROXINE SODIUM 100 MCG TABLET PO (05:43)
[2024-03-02] MEDS: CENTRAL LINE FLUSH 10 ML IV PUSH (05:44)
[2024-03-02 05:49] LABS: Alveolar/Arterial O2 Gradient 95.3 mmHg; Base Excess ABG -4.1 mEq/l (+/-2.0); Carboxyhemoglobin 1.3 % THb (0-2.0); Fractional Inspired Oxygen 30 %; HCO3 ABG 20.5 mEq/l (22.0-26.0); Methemoglobin ABG 0.3 %THb (0-1.5); Oxygen Content ABG 12.9 %vol (16.0-22.0); Oxygen Saturation ABG 95.3 % (95.0-100.0); Oxyhemoglobin 94.2 % THb (90.0-100.0); PCO2 ABG 35.5 mmHg (35.0-45.0); PO2 ABG 76.9 mmHg (80.0-100.0); PO2 FiO2 Ratio Arterial Blood 2.56 %; Reduced Hemoglobin 4.2 %THb (0-5.0); Total Hemoglobin 9.7 g/dL (12.0-18.0)
[2024-03-02 05:50] LABS: Arterial Blood Gas PEEP 5 cmH2O; Arterial Blood Gas Tidal Volume 450 ml; Arterial Blood Gas Vent Mode CMV; Arterial Blood Gas Ventilator rate 20 /MIN; Device VENTILATOR; Modified Allen's Test Unable to perform; Site Drawn RIGHT RADIAL
[2024-03-02] MEDS: INSULIN ASPART (*BKC) 100 UNITS/ML SUB-Q (05:55)
[2024-03-02 05:56] LABS: Glucose Point of Care 243 mg/dl (65-105)
[2024-03-02] MEDS: cefTRIAXone 2 GM/NS 100 ML 2 GM/100 ML BAG IVPB (09:35)
[2024-03-02] MEDS: MICONAZOLE NITRATE 2% CREAM 30 GM TUBE 1 APPLIC TOPICAL (09:36)
[2024-03-02] MEDS: MINERAL OIL/WHITE PETROLATUM OINTMENT 1 APPLIC EACH EYE (09:36)
[2024-03-02] MEDS: PANTOPRAZOLE SODIUM IV 40 MG VIAL IV PUSH (09:37)
[2024-03-02] MEDS: polyethylene glycoL 3350 17 GM POWD.PACK PO (09:37)
[2024-03-02] MEDS: NOREPINEPHRINE 8 MG/D5W 250 ML 8 MG/250 ML BAG 33.75 MG IV CONT (10:28)
[2024-03-02] MEDS: LORazepam INJ (*CRX) 2 MG/ML VIAL IV PUSH ×2 (13:29→14:07)
[2024-03-02] MEDS: MORPHINE SULFATE INJ (*CRX) 10 MG/ML AMP 5 MG IV PUSH (13:30)
--- NOTE | 2024-03-02 14:20 | WPDINTPN ---
Progress Note: A&P Assessment and Plan (1) Septic shock: Code(s): A41.9 - Sepsis, unspecified organism; R65.21 - Severe sepsis with septic shock Status: Acute Assessment and Plan: 02/28/2024: Patient presented with bradycardia, hypothermia, leukocytosis, lactic acidosis, hypotension. Patient received adequate amount of IV fluids per sepsis protocol despite which he remained hypotensive, central line was inserted and started on dopamine and Levophed -likely etiology UTI -02/27: Blood cultures have been obtained and pending -02/27: Urine cultures growing Proteus mirabilis (sensitive to ceftriaxone, cefepime, meropenem, Zosyn) -on ceftriaxone and vanc, -status post albumin for volume expansion -continue Levophed to maintain MAP > 65 mmHg or greater at all times for adequate end organ perfusion -off dopamine infusion as bradycardia has resolved 30% (2) Acute respiratory failure: Code(s): J96.00 - Acute respiratory failure, unspecified whether with hypoxia or hypercapnia Status: Acute Assessment and Plan: Patient was intubated on 02/27 in the ER for acute encephalopathy likely related to septic shock and for airway protection -currently on CMV mode of ventilation, 30% FiO2 and peep of 5 -chest x-ray and ABGs reviewed, ventilator adjusted -continue bronchodilators -sedated with fentanyl infusion only, maintain RASS of 0 to -1, daily SBT and SAT 02/27: CT chest, abdomen and pelvis IMPRESSION: Fecal stasis distending the rectum and distal large bowel consistent with fecal impaction. Bilateral double-J stents without hydronephrosis. Large right and moderate left-sided pleural effusions. Inflammatory change surrounding the gallbladder and pancreas, consistent with possible pancreatitis and cholecystitis. (3) Acute metabolic encephalopathy: Code(s): G93.41 - Metabolic encephalopathy Status: Acute Assessment and Plan: Acute metabolic encephalopathy, multifactorial most likely related to UTI, infection, septic shock, hypothermia, hypovolemia and hypotension -continue to treat underlying cause -currently sedated and intubated (4) Bradycardia: Code(s): R00.1 - Bradycardia, unspecified Status: Acute Assessment and Plan: Bradycardia could be related to hypothermia, septic shock -off dopamine infusion, bradycardia has resolved, continue to monitor (5) Hypothermia: Code(s): T68.XXXA - Hypothermia, initial encounter Status: Acute Assessment and Plan: Hypothermia most likely related to septic shock, currently normal body temperature -continue to monitor (6) Urinary tract infection: Qualifiers: Encounter type: initial encounter Indwelling urinary catheter type: indwelling urethral catheter Urinary tract infection type: catheter-associated UTI Qualified Code(s): T83.511A - Infection and inflammatory reaction due to indwelling urethral catheter, initial encounter; N39.0 - Urinary tract infection, site not specified Code(s): N39.0 - Urinary tract infection, site not specified Status: Acute Assessment and Plan: UA was reflective of UTI -urine cultures as above -continue antibiotics as above (7) Electrolyte abnormality: Code(s): E87.8 - Other disorders of electrolyte and fluid balance, not elsewhere classified Status: Acute Assessment and Plan: Hyperkalemia likely related to acidosis, septic shock, acute kidney injury -patient was treated with insulin and D50, Lokelma, sodium bicarbonate and albuterol inhaler -potassium is normalized, will continue to monitor (8) Acute kidney injury: Code(s): N17.9 - Acute kidney failure, unspecified Status: Acute Assessment and Plan: 02/27: Patient presented with septic shock, hypovolemia, creatinine was 1.50, baseline creatinine in is 0.70-1.20 -adequately fluid-resuscitated -patient had adequate urine output, creatinine stable -CT scan of the abdomen did not show any hydronephrosis -likely etiology of septic shock is UTI -continue to monitor renal function, electrolytes and urine output -urine lytes not reflective of prerenal picture, urine eosinophils were negative, CK levels were normal (9) Ureteral stent present: Code(s): Z96.0 - Presence of urogenital implants Status: Acute Assessment and Plan: Bilateral double J stents are present extending into the patient's bladder, on CT abdomen and pelvis, no hydronephrosis. Bulky calcification within the right kidney, no hydronephrosis -continue IV fluids, antibiotics -appreciate urology evaluation and recommendations (10) Chronic obstructive pulmonary disease: Code(s): J44.9 - Chronic obstructive pulmonary disease, unspecified Status: Acute Assessment and Plan: Patient has a history of COPD, continue bronchodilators, currently on mechanical ventilation with oxygen -also on antibiotics (11) Insulin dependent diabetes mellitus: Status: Chronic Assessment and Plan: Sliding scale insulin Accu-Cheks Plan DVT prophylaxis: Eliquis on hold due to anemia and drop in hemoglobin requiring packed RBC transfusion Stress ulcer prophylaxis: Protonix Nutrition: Will start trickle tube feeds Code Status: Full code, discussed with spouse, had an extensive talk with her regarding code status, she wants it to be a full code for now, she does not want the patient to suffer but this time she decided to intubate him. She is going to think about code status and get back to us, but otherwise he is a full code for now Critical Care Time Spent: 34 minutes 03/02/2024: Discussed with patient's , sons and daughter in the conference room, updated them with patient's condition and plan of care. Patient's and son that only discussed among themselves, this would not be patient's wishes, they requested to withdraw support and make him comfort measures. Bedside RN Ivanna Garcia was in the conference room with me during the family discussion. I did explain the process of comfort measures to the family, they comprehended. Comfort measure orders were entered in the chart. Due to a high probability of clinically significant, life threatening deterioration, the patient required my highest level of preparedness to intervene emergently and I personally spent this critical care time directly and personally managing the patient. This critical care time included obtaining a history; examining the patient; pulse oximetry; ordering and review of studies; arranging urgent treatment with development of a management plan; evaluation of patient's response to treatment; frequent reassessment; and discussions with other providers. It was exclusive of separately billable procedures and treating other patients and teaching time. Please see Assessment and Plan section and the rest of the note for further information on patient assessment and treatment This dictation may have been done utilizing a voice recognition system. Attempts have been made to correct errors. However, there may be uncorrected grammatical, spelling, and recognitions errors present. Subjective Date/time seen: 03/02/24 14:20 Interval history: Reason for consult: Altered mental status, septic shock, bradycardia, hypothermia, respiratory failure, Proteus mirabilis UTI, acute kidney injury, anemia 03/02/2024: Patient seen and examined the remains to be on CMV mode of ventilation, peep of 5, 30% FiO2. , sedated with fentanyl infusion only. Patient does not open his eyes or follow simple commands. Status post 1 unit of packed RBCs yesterday, hemoglobin stable this morning. Increasing and Levophed requirements this morning, on 18 mcg/min. Urine output has been adequate, patient is afebrile, tolerating tube feeds. Off dopamine infusion Review of Systems Review of Systems: ROS unobtainable: Yes unobtainable due to endotracheal tube, unobtainable due to medical condition and unobtainable due to mental status Exam Narrative: General: Patient is intubated, sedated, in no acute distress Lungs/Chest: Trachea central, coarse breath sounds bilaterally, decreased at bases, No crackles or wheezing. Cardiac: Irregularly irregular, rate in the 50-60s Abdomen: Hypoactive bowel sounds. Obese. Soft. NT. ND. There appears and mesh underlying the skin in the midline Extremities: Bilateral feet have edema. He has 2 superficial wounds on the lateral aspect of left leg. He also has a wound which does not appear infected on the left heel. He has chronic venous stasis changes and edema : Coats in place Neurologic: Intubated and sedated, does not open his eyes or follow simple commands. Does not withdraw to pain in extremities. Skin: As above Psych: Unable to assess at this time Objective Data Vital Signs Vital Signs: Vital Signs - 24 hr 03/01/24 14:38 03/01/24 14:39 03/01/24 16:00 Temperature Pulse Rate 63 68 71 Respiratory Rate 20 Blood Pressure 111/50 L Pulse Oximetry 97 Oxygen Delivery Mechanical Ventilation Fraction of Inspired Oxygen 03/01/24 16:00 03/01/24 16:00 03/01/24 16:00 Temperature 96.7 F L Pulse Rate 71 Respiratory Rate 20 Blood Pressure 111/50 L Pulse Oximetry 96 95 Oxygen Delivery Mechanical Ventilation Fraction of Inspired Oxygen 30 03/01/24 16:00 03/01/24 16:02 03/01/24 16:45 Temperature Pulse Rate 67 71 74 Respiratory Rate 20 Blood Pressure 118/56 L Pulse Oximetry Oxygen Delivery Fraction of Inspired Oxygen 03/01/24 17:10 03/01/24 17:31 03/01/24 17:32 Temperature Pulse Rate 74 70 70 Respiratory Rate 20 20 Blood Pressure Pulse Oximetry 97 Oxygen Delivery Mechanical Ventilation Fraction of Inspired Oxygen 30 03/01/24 17:34 03/01/24 18:00 03/01/24 18:00 Temperature 97.1 F L Pulse Rate 77 76 76 Respiratory Rate 20 Blood Pressure 105/51 L 100/47 L Pulse Oximetry 97 Oxygen Delivery Fraction of Inspired Oxygen 03/01/24 18:00 03/01/24 18:00 03/01/24 20:00 Temperature 97.5 F L Pulse Rate 76 76 79 Respiratory Rate 20 20 Blood Pressure 100/47 L 114/57 L Pulse Oximetry 98 Oxygen Delivery Fraction of Inspired Oxygen 03/01/24 20:00 03/01/24 20:00 03/01/24 20:00 Temperature Pulse Rate 79 79 Respiratory Rate 20 Blood Pressure Pulse Oximetry Oxygen Delivery Mechanical Ventilation Fraction of Inspired Oxygen 30 03/01/24 20:00 03/01/24 20:00 03/01/24 21:31 Temperature Pulse Rate 75 79 Respiratory Rate 20 Blood Pressure Pulse Oximetry Oxygen Delivery Fraction of Inspired Oxygen 30 03/01/24 21:32 03/01/24 21:37 03/01/24 21:40 Temperature 97.5 F L Pulse Rate 70 75 71 Respiratory Rate 20 Blood Pressure 104/53 L 104/53 L Pulse Oximetry 98 98 Oxygen Delivery Mechanical Ventilation Fraction of Inspired Oxygen 30 03/01/24 21:54 03/01/24 22:00 03/01/24 22:00 Temperature 97.5 F L Pulse Rate 73 78 78 Respiratory Rate 20 20 Blood Pressure 96/51 L 104/58 L Pulse Oximetry 97 Oxygen Delivery Fraction of Inspired Oxygen 03/01/24 22:00 03/01/24 22:00 03/01/24 22:54 Temperature 97.4 F L 97.4 F L Pulse Rate 78 78 84 Respiratory Rate 20 20 Blood Pressure 104/58 L 109/60 Pulse Oximetry 97 96 Oxygen Delivery Fraction of Inspired Oxygen 03/01/24 23:09 03/01/24 23:59 03/02/24 00:00 Temperature 97.4 F L Pulse Rate 79 74 80 Respiratory Rate 20 20 Blood Pressure 108/53 L Pulse Oximetry 96 98 Oxygen Delivery Mechanical Ventilation Fraction of Inspired Oxygen 30 03/02/24 00:00 03/02/24 00:00 03/02/24 00:00 Temperature 97.4 F L Pulse Rate 80 Respiratory Rate 20 Blood Pressure 116/60 Pulse Oximetry 96 Oxygen Delivery Mechanical Ventilation Fraction of Inspired Oxygen 30 30 03/02/24 00:00 03/02/24 00:00 03/02/24 02:00 Temperature Pulse Rate 85 80 80 Respiratory Rate 20 Blood Pressure 116/60 Pulse Oximetry Oxygen Delivery Fraction of Inspired Oxygen 03/02/24 02:00 03/02/24 02:00 03/02/24 02:00 Temperature 97.7 F Pulse Rate 80 80 80 Respiratory Rate 20 Blood Pressure 117/56 L 117/56 L Pulse Oximetry 97 Oxygen Delivery Fraction of Inspired Oxygen 03/02/24 03:12 03/02/24 03:12 03/02/24 03:55 Temperature Pulse Rate 68 76 89 Respiratory Rate 20 Blood Pressure 64/26 L Pulse Oximetry 98 Oxygen Delivery Mechanical Ventilation Fraction of Inspired Oxygen 30 03/02/24 04:00 03/02/24 04:00 03/02/24 04:00 Temperature 97.2 F L Pulse Rate 89 86 Respiratory Rate 20 20 Blood Pressure 70/22 L Pulse Oximetry 96 Oxygen Delivery Mechanical Ventilation Fraction of Inspired Oxygen 30 03/02/24 04:00 03/02/24 04:00 03/02/24 04:05 Temperature Pulse Rate 84 84 Respiratory Rate Blood Pressure 66/29 L Pulse Oximetry Oxygen Delivery Fraction of Inspired Oxygen 30 03/02/24 04:10 03/02/24 04:15 03/02/24 04:22 Temperature Pulse Rate 87 85 90 Respiratory Rate Blood Pressure 80/36 L 88/44 L 91/33 L Pulse Oximetry Oxygen Delivery Fraction of Inspired Oxygen 03/02/24 05:28 03/02/24 05:45 03/02/24 06:00 Temperature Pulse Rate 85 94 95 Respiratory Rate Blood Pressure 98/43 L 101/48 L Pulse Oximetry 97 Oxygen Delivery Mechanical Ventilation Fraction of Inspired Oxygen 30 03/02/24 06:00 03/02/24 06:00 03/02/24 06:00 Temperature 97.7 F Pulse Rate 95 95 95 Respiratory Rate 22 H 22 H Blood Pressure 101/48 L Pulse Oximetry 96 Oxygen Delivery Fraction of Inspired Oxygen 03/02/24 06:16 03/02/24 08:00 03/02/24 08:00 Temperature Pulse Rate 90 87 87 Respiratory Rate 17 Blood Pressure 91/38 L Pulse Oximetry 96 Oxygen Delivery Mechanical Ventilation Fraction of Inspired Oxygen 30 03/02/24 08:00 03/02/24 08:00 03/02/24 08:40 Temperature 98 F Pulse Rate 87 94 Respiratory Rate 17 Blood Pressure 95/45 L Pulse Oximetry 96 97 Oxygen Delivery Mechanical Ventilation Fraction of Inspired Oxygen 30 30 03/02/24 08:40 03/02/24 08:55 03/02/24 10:00 Temperature Pulse Rate 94 90 87 Respiratory Rate 25 H 20 Blood Pressure Pulse Oximetry Oxygen Delivery Fraction of Inspired Oxygen 03/02/24 10:00 03/02/24 10:28 03/02/24 10:28 Temperature 98.9 F Pulse Rate 85 96 96 Respiratory Rate 17 Blood Pressure 98/47 L 94/40 L 94/40 L Pulse Oximetry 98 Oxygen Delivery Fraction of Inspired Oxygen 03/02/24 11:15 03/02/24 12:00 03/02/24 12:00 Temperature Pulse Rate 86 86 86 Respiratory Rate 17 Blood Pressure Pulse Oximetry 98 98 Oxygen Delivery Mechanical Ventilation Mechanical Ventilation Fraction of Inspired Oxygen 30 30 03/02/24 12:00 03/02/24 12:00 Temperature 98.9 F Pulse Rate 90 Respiratory Rate 15 Blood Pressure 94/44 L Pulse Oximetry 98 Oxygen Delivery Fraction of Inspired Oxygen 30 Intake/Output Intake/Output: Intake & Output 02/28/24 02/29/24 03/01/24 03/02/24 23:59 23:59 23:59 23:59 Intake Total 4943.6 2403.8 2017.1 877.2 Output Total 2500 2700 1025 Balance 4943.6 -96.2 -682.9 -147.8 Meds/Results Medications: Active Medications Generic Name Dose Route Start Last Admin Trade Name Freq PRN Reason Stop Dose Admin Lorazepam 2 mg 03/02/24 11:35 Lorazepam Inj (*Crx) 2 Mg/Ml Vial IV PUSH Q2H PRN Anxiety/Comfort Morphine Sulfate 2 mg 03/02/24 11:35 Morphine Sulfate (*Crx) 2 Mg/Ml Inj IV PUSH Q30M PRN COMFORT Radiology Results: ITS Impressions Chest/Abdomen/Pelvis CT 02/28/24 16:45 IMPRESSION: Fecal stasis distending the rectum and distal large bowel consistent with fecal impaction. Bilateral double-J stents without hydronephrosis. Large right and moderate left-sided pleural effusions. Inflammatory change surrounding the gallbladder and pancreas, consistent with possible pancreatitis and cholecystitis. Head CT 02/28/24 16:59 Impression: No acute intracranial hemorrhage or suspicious mass effect. Abdomen X-Ray 02/28/24 19:17 IMPRESSION: Nasogastric tube in good position and ready for immediate use. Chest X-Ray 03/02/24 07:11 IMPRESSION: 1. Likely posterior layering small to moderate-sized right pleural effusion. 2. More dense airspace opacities in the bilateral lower lung zones which could represent atelectasis or pneumonia. 3. Cardiomegaly pulmonary vascular congestion and possible mild pulmonary edema. Labs Labs: Laboratory Results - last 24 hr 03/01/24 03/01/24 03/01/24 06:12 07:57 16:56 WBC RBC Hgb Hct MCV MCH MCHC RDW Plt Count MPV Immature Gran % (Auto) Neut % (Auto) Lymph % (Auto) [place] % (Auto) Eos % (Auto) Baso % (Auto) Lymph # (Auto) [place] # (Auto) Eos # (Auto) Baso # (Auto) Abs Immat Gran (auto) Absolute Neuts (auto) Absolute Nucleated RBC Nucleated RBC % Haptoglobin 121 Puncture Site ABG pH ABG pCO2 ABG pO2 ABG PO2/FiO2 Ratio ABG HCO3 ABG O2 Saturation ABG O2 Content ABG Base Excess A-a Gradient Oxyhemoglobin Carboxyhemoglobin Methemoglobin Reduced Hemoglobin Total Hemoglobin O2 Delivery Device O2 Liters/Min Minute Volume Vent Rate Vent Mode FiO2 Tidal Volume PEEP Peak Inspir Pressure Pressure Support Sodium Potassium Chloride Carbon Dioxide Anion Gap BUN Creatinine Estim Creat Clear Calc Estimated GFR Glucose POC Capillary Glucose 215 H Calcium Phosphorus Magnesium Total Bilirubin AST ALT Alkaline Phosphatase Total Protein Albumin Stl Occult Blood (IFOB) Blood Type O Positive Antibody Screen Negative Crossmatch See Detail 03/01/24 03/01/24 03/02/24 19:48 23:07 03:48 WBC 4.0 L RBC 2.83 L Hgb 7.1 L Hct 22.8 L MCV 80.6 MCH 25.1 L MCHC 31.1 L RDW 18.9 H Plt Count 152 MPV 9.0 Immature Gran % (Auto) Neut % (Auto) Lymph % (Auto) [place] % (Auto) Eos % (Auto) Baso % (Auto) Lymph # (Auto) [place] # (Auto) Eos # (Auto) Baso # (Auto) Abs Immat Gran (auto) Absolute Neuts (auto) Absolute Nucleated RBC Nucleated RBC % Haptoglobin Puncture Site ABG pH ABG pCO2 ABG pO2 ABG PO2/FiO2 Ratio ABG HCO3 ABG O2 Saturation ABG O2 Content ABG Base Excess A-a Gradient Oxyhemoglobin Carboxyhemoglobin Methemoglobin Reduced Hemoglobin Total Hemoglobin O2 Delivery Device O2 Liters/Min Minute Volume Vent Rate Vent Mode FiO2 Tidal Volume PEEP Peak Inspir Pressure Pressure Support Sodium Potassium Chloride Carbon Dioxide Anion Gap BUN Creatinine Estim Creat Clear Calc Estimated GFR Glucose POC Capillary Glucose 198 H Calcium Phosphorus Magnesium Total Bilirubin AST ALT Alkaline Phosphatase Total Protein Albumin Stl Occult Blood (IFOB) Negative Blood Type Antibody Screen Crossmatch 03/02/24 03/02/24 03/02/24 05:18 05:33 05:53 WBC 7.0 RBC 3.61 L Hgb 9.1 L Hct 29.3 L MCV 81.2 MCH 25.2 L MCHC 31.1 L RDW 18.9 H Plt Count 201 MPV 9.6 Immature Gran % (Auto) 0.4 Neut % (Auto) 70.4 Lymph % (Auto) 9.5 L [place] % (Auto) 16.1 H Eos % (Auto) 3.2 Baso % (Auto) 0.4 Lymph # (Auto) 0.66 L [place] # (Auto) 1.1 H Eos # (Auto) 0.2 Baso # (Auto) 0.0 Abs Immat Gran (auto) 0.03 Absolute Neuts (auto) 4.9 Absolute Nucleated RBC 0.080 H Nucleated RBC % 1.2 H Haptoglobin Puncture Site Right radial ABG pH 7.380 ABG pCO2 35.5 ABG pO2 76.9 L ABG PO2/FiO2 Ratio 2.56 ABG HCO3 20.5 L ABG O2 Saturation 95.3 ABG O2 Content 12.9 L ABG Base Excess -4.1 A-a Gradient 95.3 Oxyhemoglobin 94.2 Carboxyhemoglobin 1.3 Methemoglobin 0.3 Reduced Hemoglobin 4.2 Total Hemoglobin 9.7 L O2 Delivery Device Ventilator O2 Liters/Min Not Reportable Minute Volume Not Reportable Vent Rate 20 Vent Mode Cmv FiO2 30 Tidal Volume 450 PEEP 5 Peak Inspir Pressure Not Reportable Pressure Support Not Reportable Sodium 140 Potassium 4.0 Chloride 112 H Carbon Dioxide 23 Anion Gap 5 BUN 34 H Creatinine 1.40 H Estim Creat Clear Calc 63 Estimated GFR 50 L Glucose 255 H POC Capillary Glucose 243 H Calcium 9.8 Phosphorus 3.5 Magnesium 2.3 Total Bilirubin 0.7 AST 13 L ALT 8 Alkaline Phosphatase 115 Total Protein 7.0 Albumin 3.1 L Stl Occult Blood (IFOB) Blood Type Antibody Screen Crossmatch Quality VTE Prophylaxis VTE prophylaxis: pharmacologic ordered (Eliquis)
--- NOTE | 2024-03-03 14:52 | PM.DDS ---
Discharge Summary Date and Time Date of : 03/02/24 Time of : 13:35 Provider Pronounced By: 2 RNs Name of First RN That Pronounced: Ivanna Diaz RN Name of Second RN That Pronounced: Quiana Brown RN Probable Cause of Probable Cause of : Withdrawal of care by family, comfort measures Cause of likely cardiopulmonary arrest Summary Hospital Course: Reason for consult: Altered mental status, septic shock, bradycardia, hypothermia, respiratory failure, Proteus mirabilis UTI, acute kidney injury, anemia Assessment and Plan (1) Septic shock: Code(s): A41.9 - Sepsis, unspecified organism; R65.21 - Severe sepsis with septic shock Status: Acute Assessment and Plan: 02/28/2024: Patient presented with bradycardia, hypothermia, leukocytosis, lactic acidosis, hypotension. Patient received adequate amount of IV fluids per sepsis protocol despite which he remained hypotensive, central line was inserted and started on dopamine and Levophed -likely etiology UTI -02/27: Blood cultures have been obtained and pending -02/27: Urine cultures growing Proteus mirabilis (sensitive to ceftriaxone, cefepime, meropenem, Zosyn) -on ceftriaxone and vanc, -status post albumin for volume expansion -continue Levophed to maintain MAP > 65 mmHg or greater at all times for adequate end organ perfusion -off dopamine infusion as bradycardia has resolved 30% (2) Acute respiratory failure: Code(s): J96.00 - Acute respiratory failure, unspecified whether with hypoxia or hypercapnia Status: Acute Assessment and Plan: Patient was intubated on 02/27 in the ER for acute encephalopathy likely related to septic shock and for airway protection -currently on CMV mode of ventilation, 30% FiO2 and peep of 5 -chest x-ray and ABGs reviewed, ventilator adjusted -continue bronchodilators -sedated with fentanyl infusion only, maintain RASS of 0 to -1, daily SBT and SAT 02/27: CT chest, abdomen and pelvis IMPRESSION: Fecal stasis distending the rectum and distal large bowel consistent with fecal impaction. Bilateral double-J stents without hydronephrosis. Large right and moderate left-sided pleural effusions. Inflammatory change surrounding the gallbladder and pancreas, consistent with possible pancreatitis and cholecystitis. (3) Acute metabolic encephalopathy: Code(s): G93.41 - Metabolic encephalopathy Status: Acute Assessment and Plan: Acute metabolic encephalopathy, multifactorial most likely related to UTI, infection, septic shock, hypothermia, hypovolemia and hypotension -continue to treat underlying cause -currently sedated and intubated (4) Bradycardia: Code(s): R00.1 - Bradycardia, unspecified Status: Acute Assessment and Plan: Bradycardia could be related to hypothermia, septic shock -off dopamine infusion, bradycardia has resolved, continue to monitor (5) Hypothermia: Code(s): T68.XXXA - Hypothermia, initial encounter Status: Acute Assessment and Plan: Hypothermia most likely related to septic shock, currently normal body temperature -continue to monitor (6) Urinary tract infection: Qualifiers: Encounter type: initial encounter Indwelling urinary catheter type: indwelling urethral catheter Urinary tract infection type: catheter-associated UTI Qualified Code(s): T83.511A - Infection and inflammatory reaction due to indwelling urethral catheter, initial encounter; N39.0 - Urinary tract infection, site not specified Code(s): N39.0 - Urinary tract infection, site not specified Status: Acute Assessment and Plan: UA was reflective of UTI -urine cultures as above -continue antibiotics as above (7) Electrolyte abnormality: Code(s): E87.8 - Other disorders of electrolyte and fluid balance, not elsewhere classified Status: Acute Assessment and Plan: Hyperkalemia likely related to acidosis, septic shock, acute kidney injury -patient was treated with insulin and D50, Lokelma, sodium bicarbonate and albuterol inhaler -potassium is normalized, will continue to monitor (8) Acute kidney injury: Code(s): N17.9 - Acute kidney failure, unspecified Status: Acute Assessment and Plan: 02/27: Patient presented with septic shock, hypovolemia, creatinine was 1.50, baseline creatinine in is 0.70-1.20 -adequately fluid-resuscitated -patient had adequate urine output, creatinine stable -CT scan of the abdomen did not show any hydronephrosis -likely etiology of septic shock is UTI -continue to monitor renal function, electrolytes and urine output -urine lytes not reflective of prerenal picture, urine eosinophils were negative, CK levels were normal (9) Ureteral stent present: Code(s): Z96.0 - Presence of urogenital implants Status: Acute Assessment and Plan: Bilateral double J stents are present extending into the patient's bladder, on CT abdomen and pelvis, no hydronephrosis. Bulky calcification within the right kidney, no hydronephrosis -continue IV fluids, antibiotics -appreciate urology evaluation and recommendations (10) Chronic obstructive pulmonary disease: Code(s): J44.9 - Chronic obstructive pulmonary disease, unspecified Status: Acute Assessment and Plan: Patient has a history of COPD, continue bronchodilators, currently on mechanical ventilation with oxygen -also on antibiotics (11) Insulin dependent diabetes mellitus: Status: Chronic Assessment and Plan: Sliding scale insulin Accu-Cheks Additional Data Confirmation of as documented by pronouncing clinician: Pupillary Reflex, Palpable Pulses, Response to Stimuli, Heart Tones and Breath Sounds Name of Provider Notified: Dr. 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
--- OUTSIDE RECORDS SUMMARY | 2024-03-06 15:20 | XMS_ITS | Patient Health Summary ---
Author Organization [facility] Address [address] [place] [address] Care Team Providers Care Cost Consultant Name Role Phone Adeola Marr MD Primary Care Provider Note from [facility],non-owned Affiliates and Associated Physician Practices is amultiple site organization consisting of ambulatory clinics and hospital sitesin [place], [place], [place] and [place]. This disclosure is being madepursuant to the Care Everywhere program and may not contain all information available regarding this patient. Last updated 17.[facility] Allergies No known active allergies Medications * Be aware that medications may not be up to date on this document. Alwaysverify current medications with the patient. * albuterol HFA (PROVENTIL;VENTOLIN;PROAIR) 108 (90 Base) MCG/ACT inhaler Inhale 2 puffs by mouth every 6 hours as needed for Shortness of Breath * aspirin EC (ECOTRIN) 81 MG tablet Take 81 mg by mouth once daily * DULoxetine HCl 40 MG Take 40 mg by mouth once daily * furosemide (LASIX) 40 MG tablet Take 40 mg by mouth once daily * gabapentin (NEURONTIN) 300 MG capsule Take 300 mg by mouth 4 times daily * HYDROcodone-acetaminophen (NORCO) 7.5-325 MG tablet Take 1 tablet by mouth every 6 hours as needed for Pain * levothyroxine (SYNTHROID) 100 MCG tablet Take 100 mcg by mouth daily before breakfast * lisinopril (PRINIVIL; ZESTRIL) 40 MG tablet Take 40 mg by mouth once daily * loratadine (CLARITIN) 10 MG tablet Take 10 mg by mouth once daily * metFORMIN (GLUCOPHAGE) 1000 MG tablet Take 1,000 mg by mouth 2 times daily with morning and evening meal * multivitamin daily tablet Take 1 tablet by mouth daily with food * omeprazole EC (PRILOSEC OTC) 20 MG tablet Take 20 mg by mouth daily before breakfast * pravastatin (PRAVACHOL) 40 MG tablet Take 40 mg by mouth at bedtime * dilTIAZem ER 24hr (TIADYLT ER) 240 MG capsule Take 240 mg by mouth once daily * traZODone (DESYREL) 50 MG tablet Take 150 mg by mouth at bedtime * insulin glargine (LANTUS) pen(Started 05/30/2020) Inject 30 (thirty) Units subcutaneously once daily * insulin aspart (NOVOLOG) pen(Started 05/29/2020) Inject 0 (zero) Units to 12 (twelve) Units subcutaneously 3 times daily with meals Per sliding scale * collagenase (SANTYL) 250 UNIT/GM ointment(Started 05/29/2020) Apply to affected area once daily * mupirocin (BACTROBAN) 2 % ointment(Started 05/29/2020) Apply to affected area once daily Active Problems Problem Noted Date Diagnosed Date Cellulitis of left heel 05/26/2020 Type 2 diabetes mellitus with hyperglycemia 05/01 Morbid obesity 05/26/2020 Open wound of left heel 05/22/2020 Social History Tobacco Use Types Packs/Day Years Used Date Smoking Tobacco: Former Smokeless Tobacco: Never Tobacco Cessation:Counseling Given: No Alcohol Use Standard Drinks/Week Comments Not Currently 0 (1 standard drink = 0.6 oz pur e alcohol) AUDIT-C Answer Date Recorded Q1: How often do you have a drink containing alc ohol? Never 05/23/2020 Average Number of Drinks Not on file 021 Frequency of Binge Drinking Not on file 05/01 Sex and Gender Information Value Date Recorded Sex Assigned at Not on file Gender Identity Not on file Sexual Orientation Not on file Last Filed Vital Signs Vital Sign Reading Time Taken Comments Blood Pressure 140/76 05/29/2020 3:58 PM CDT Pulse 101 05/29/2020 3:58 PM CDT Temperature 36.6 ??C (97.8 ??F) 05/29/2020 3:58 PM CD T Respiratory Rate 20 05/29/2020 3:58 PM CDT Oxygen Saturation 93% 05/29/2020 3:58 PM CDT Inhaled Oxygen Concentration - - Weight 153 kg (337 lb 4.9 oz) 05/23/2020 2:52 AM CDT Height 180.3 cm (5' 11 ) 05/23/2020 2:52 AM CDT Body Mass Index 47.04 05/23/2020 2:52 AM CDT Procedures * CARDIAC RHYTHM STRIP ORDER(Performed 05/30/2020) * GLUCOSE - POINT OF CARE(Performed 05/29/2020) * SARS-COV-2 (COVID-19) RAPID(Performed 05/29/2020) * GLUCOSE - POINT OF CARE(Performed 05/29/2020) * CBC W AUTO DIFFERENTIAL(Performed 05/29/2020) * BASIC METABOLIC PANEL (CALCIUM TOTAL)(Performed 05/29/2020) * GLUCOSE - POINT OF CARE(Performed 05/28/2020) * GLUCOSE - POINT OF CARE(Performed 05/28/2020) * GLUCOSE - POINT OF CARE(Performed 05/28/2020) * IR PICC LINE INSERT(Performed 05/28/2020) Performed for Open wound of left heel, initial encounter * GLUCOSE - POINT OF CARE(Performed 05/28/2020) * GLUCOSE - POINT OF CARE(Performed 05/27/2020) * GLUCOSE - POINT OF CARE(Performed 05/27/2020) * GLUCOSE - POINT OF CARE(Performed 05/27/2020) * GLUCOSE - POINT OF CARE(Performed 05/27/2020) * GLUCOSE - POINT OF CARE(Performed 05/26/2020) * GLUCOSE - POINT OF CARE(Performed 05/26/2020) * GLUCOSE - POINT OF CARE(Performed 05/26/2020) * GLUCOSE - POINT OF CARE(Performed 05/26/2020) * CBC W AUTO DIFFERENTIAL(Performed 05/26/2020) * RENAL FUNCTION PANEL(Performed 05/26/2020) * GLUCOSE - POINT OF CARE(Performed 05/25/2020) * GLUCOSE - POINT OF CARE(Performed 05/25/2020) * GLUCOSE - POINT OF CARE(Performed 05/25/2020) * CULTURE TISSUE+GRAM STAIN(Performed 05/25/2020) Performed for Diagnosis unknown * CULTURE ANAEROBE(Performed 05/25/2020) Performed for Diagnosis unknown * PATHOLOGY TISSUE EXAM (STL)(Performed 05/25/2020) Performed for Diagnosis unknown * IRRIGATION/DEBRIDEMENT FOOT/ANKLE(Performed 05/25/2020) * MAGNESIUM BLOOD(Performed 05/25/2020) * RENAL FUNCTION PANEL(Performed 05/25/2020) * GLUCOSE - POINT OF CARE(Performed 05/24/2020) * VANCOMYCIN LEVEL TROUGH(Performed 05/24/2020) * GLUCOSE - POINT OF CARE(Performed 05/24/2020) * VAS ARTERIAL ANKLE ARM INDEX(Performed 05/24/2020) Performed for Open wound of left heel, initial encounter * MRI FOOT LEFT WO CONTRAST(Performed 05/24/2020) Performed for Open wound of left heel, initial encounter * GLUCOSE - POINT OF CARE(Performed 05/24/2020) * GLUCOSE - POINT OF CARE(Performed 05/24/2020) * GLUCOSE - POINT OF CARE(Performed 05/23/2020) * GLUCOSE - POINT OF CARE(Performed 05/23/2020) * CULTURE TISSUE+GRAM STAIN(Performed 05/23/2020) * CULTURE ANAEROBE(Performed 05/23/2020) * XR CALCANEUS LEFT 2VW OR MORE(Performed 05/23/2020) Performed for Open wound of left heel, initial encounter * GLUCOSE - POINT OF CARE(Performed 05/23/2020) * VAS BILATERAL VENOUS DUPLEX LE(Performed 05/23/2020) Performed for Open wound of left heel, initial encounter * GLUCOSE - POINT OF CARE(Performed 05/23/2020) * HEMOGLOBIN A1C(Performed 05/23/2020) * LACTIC ACID BLOOD(Performed 05/23/2020) * PT-INR(Performed 05/23/2020) * MAGNESIUM BLOOD(Performed 05/23/2020) * COMPREHENSIVE METABOLIC PANEL(Performed 05/23/2020) * CBC W AUTO DIFFERENTIAL(Performed 05/23/2020) Results * CARDIAC RHYTHM STRIP ORDER (05/30/2020 10:06 PM CDT) Narrative 05/30/2020 10:06 PM CDT Ordered by an unspecified provider. Scanned Document CARDIAC SERVICES ORD ERABLES * (ABNORMAL) GLUCOSE - POINT OF CARE (05/29/2020 11:16 AM CDT) Only the most recent of25 resultswithin the time period is included. Glucose WB/POC 305(H) 70 - 106 mg/dL 05/29/2020 11:34 AM CDT [facility] Specimen Type Arterial/C apillary 05/29/2020 11:34 AM CDT [facility] Blood BLOOD SPECIMEN / Unknown 05/29/2020 11:16 AM CDT 05/29/2020 11:33 AM CDT Carroll Briseno MD LAB - POINT OF CARE ORDERABLES [facility] [address] [place] [address] * SARS-COV-2 (COVID-19) RAPID (05/29/2020 10:54 AM CDT) COVID-19 PCR Not detected Not detected 05/29/2020 1:02 PM CDT [facility] Microbiology SPECIMEN FROM NASOPHARYNGEAL STRUCTURE / Unknown 05/29/2020 10:54 AM CDT 05/29/2020 12:00 PM CDT Narrative [facility] - 05/29/2020 1:02 PM CDT The Cepheid Xpert Xpress SARS-COV-2 has been authorized by the Food and Drug Administration (FDA) under an Emergency Use Authorization (EUA). This test has been validated in accordance with the FDA's guidance document Policy for Diagnostic Testing in Laboratories Certified to perform High Complexity Testing under CLIA prior to Emergency Use Authorization for Coronavirus Disease-2019 during the Public Health Emergency issued on April 30, 2019. FDA independent review of this validation is pending. This test is only authorized for the duration of the time the declaration that circumstances exist justifying the authorization of emergency use of in vitro diagnostic tests for detection of SARS-COV-2 virus and/or diagnosis of COVID-19 infection under 564(b) (1) of the Act. 21 U.S.C. 360bbb-3 (b) (1), unless the authorization is terminated or revoked sooner. Fact Sheets for this EUA assay are available upon request. Carroll Briseno MD LAB - MICROBIOLOGY ORDERABLES [facility] [address] [place] [address], [facility] [phone] * (ABNORMAL) CBC W AUTO DIFFERENTIAL (05/29/2020 3:37 AM CDT) Only the most recent of3 resultswithin the time period is included. WBC 8.9 4.4 - 10.7 x10E9/L 05/29/2020 4:32 AM CDT [facility] WBC Corrected 05/29/2020 4:32 AM CDT [facility] RBC 5.42(H) 3.80 - 5.40 x10E12/L 05/29/2020 4:32 AM CDT [facility] Hemoglobin 14.8 12.0 - 17.6 gm/dL 05/29/2020 4:32 AM CDT [facility] Hematocrit 49.2 35.2 - 51.7 % 05/29/2020 4:32 AM CDT [facility] MCV 90.8 80.7 - 98.3 fl 05/29/2020 4:32 AM CDT [facility] MCH 27.3 26.7 - 34.0 pg 05/29/2020 4:32 AM CDT [facility] MCHC 30.1(L) 30.8 - 35.9 gm/dL 05/29/2020 4:32 AM CDT [facility] Platelet Count 356 153 - 416 x10E9/L 05/29/2020 4:32 AM CDT [facility] RDW-CV 14.7 12.1 - 14.9 % 05/29/2020 4:32 AM CDT [facility] MPV 9.6 9.4 - 12.9 fl 05/29/2020 4:32 AM CDT [facility] Neutrophils % 66.8 44.0 - 73.0 % 05/29/2020 4:32 AM CDT [facility] Lymphocytes % 16.6(L) 20.0 - 43.0 % 05/29/2020 4:32 AM CDT [facility] Monocytes % 8.9 5.0 - 13.0 % 05/29/2020 4:32 AM CDT [facility] Eosinophils % 5.6 0.0 - 6.0 % 05/29/2020 4:32 AM CDT [facility] Basophils % 1.2 0.0 - 2.0 % 05/29/2020 4:32 AM CDT [facility] Immature Granulocytes 0.9 0 - 1 % 05/29/2020 4:32 AM CDT [facility] Neutrophil Absolute 5.91 2.01 - 7.14 x10E9/L 05/29/2020 4:32 AM CDT [facility] Lymphocytes Absolute 1.47 1.07 - 3.94 x10E9/L 05/29/2020 4:32 AM CDT [facility] Monocytes Absolute 0.79 0.26 - 1.07 x10E9/L 05/29/2020 4:32 AM CDT [facility] Eosinophils Absolute 0.50(H) 0 - 0.47 x10E9/L 05/29/2020 4:32 AM CDT [facility] Basophils Absolute 0.11(H) 0 - 0.08 x10E9/L 05/29/2020 4:32 AM CDT [facility] Immature Granulocytes Absolute 0.08(H) 0.00 - 0.06 x10E9/L 05/29/2020 4:32 AM [facility] nRBC Auto 0 /100 WBC 05/29/2020 4:32 AM [facility] Blood BLOOD SPECIMEN / Unknown Lab Venipuncture / Unknown 05/29/2020 3:37 AM CDT 05/29/2020 4:29 AM CDT Bobby Doyle MD LAB - HEMATOLOGY ORD ERABLES [facility] [address] [place], [place] [id number] * (ABNORMAL) BASIC METABOLIC PANEL (CALCIUM TOTAL) (05/29/2020 3:37 AM CDT) [facility] Glucose 260(H) 70 - 105 mg/dL 05/29/2020 5:03 AM CDT [facility] Sodium 136 136 - 145 mmol/L 05/29/2020 5:03 AM CDT [facility] Potassium 3.9 3.5 - 5.1 mmol/L 05/29/2020 5:03 AM CDT [facility] Chloride 97(L) 98 - 107 mmol/L 05/29/2020 5:03 AM CDT [facility] CO2 31 23 - 31 mmol/L 05/29/2020 5:03 AM CDT [facility] Calcium 10.3 8.4 - 10.4 mg/dL 05/29/2020 5:03 AM CDT [facility] Anion Gap 8 8 - 18 mmol/L 05/29/2020 5:03 AM CDT [facility] Comment:Attention clinician: Reference Range change. BUN 19 8.4 - 25.7 mg/dL 05/29/2020 5:03 AM CDT [facility] Creatinine 1.07 0.72 - 1.25 mg/dL 05/29/2020 5:03 AM CDT [facility] eGFR by MDRD >60 >60 mL/min/1.7 3m2 05/29/2020 5:03 AM CDT [facility] eGFR by MDRD >60 >60 mL/min/1.7 3m2 05/29/2020 5:03 AM CDT [facility] Blood BLOOD SPECIMEN / Unknown Lab Venipuncture / Unknown 05/29/2020 3:37 AM CDT 05/29/2020 4:29 AM CDT Bobby Doyle MD LAB - CHEMISTRY JUANJO CUMM[facility] Organization Address City/State/ZIP Co de Phone Number [facility] [address] [place] [address] * IR PICC LINE INSERT (05/28/2020 12:31 PM CDT) Anatomical Region Laterality Modality Chest, Upper Extremity X-Ray Ang iography 05/28/2020 12:4 5 PM CDT Impressions 05/28/2020 12:46 PM CDT Successful placement of right upper extremity single-lumen CT injectable PICC line. rr: HOLLY *Reading Radiologist: Eden Tapia on 05/28/2020 at 12:46 PM Narrative 05/28/2020 12:46 PM CDT PROCEDURE: Right upper extremity PICC line Radiologist: Willie Mesa Preprocedure diagnosis: Osteomyelitis, open wound of the left foot Postprocedure diagnosis: As above PROCEDURE: After informed consent was obtained patient was placed supine on the angiogram table and the right upper extremity was prepped and draped in the usual sterile fashion. The basilic vein was shown to be patent using ultrasound and appropriate for access. Appropriate ultrasound images were captured. The appropriate skin site was prepped and draped in the usual sterile fashion. Anesthesia was obtained with lidocaine. Using ultrasound guidance the basilic vein was punctured using a micropuncture needle and a 0.018 wire was introduced. Realtime ultrasound visualization of vascular needle entry and appropriate ultrasound images were captured. The needle was exchanged for a peel-away transitional sheath. The inner dilator was removed. Appropriately trimmed single-lumen CT injectable PICC line was advanced over the 0.018 wire. Using fluoroscopic guidance a catheter tip was advanced into the right atrium. Tip position was confirmed by stored fluoroscopic image. The wire and sheath were removed and hemostasis was obtained with manual compression. The flushed and aspirate easily and were appropriately flushed with saline. The catheter was secured the patient using a STAT LOC device. The patient tolerated the procedure well and left department in good condition. Fluoroscopy time 1.1 minute COMPLICATIONS:None ESTIMATED BLOOD LOSS: Negligible Specimen: None Procedure Note Stephanie Tapia MD - 05/28/2020 PROCEDURE: Right upper extremity PICC line Radiologist: Willie Mesa Preprocedure diagnosis: Osteomyelitis, open wound of the left foot Postprocedure diagnosis: As above PROCEDURE: After informed consent was obtained patient was placed supine on the angiogram table and the right upper extremity was prepped and draped in the usual sterile fashion. The basilic vein was shown to be patent using ultrasound and appropriate for access. Appropriate ultrasound images were captured. The appropriate skin site was prepped and draped in the usual sterile fashion. Anesthesia was obtained with lidocaine. Using ultrasound guidance the basilic vein was punctured using a micropuncture needle and a 0.018 wire was introduced. Realtime ultrasound visualization of vascular needle entry and appropriate ultrasound images were captured. The needle was exchanged for a peel-away transitional sheath. The inner dilator was removed. Appropriately trimmed single-lumen CT injectable PICC line was advanced over the 0.018 wire. Using fluoroscopic guidance a catheter tip was advanced into the right atrium. Tip position was confirmed by stored fluoroscopic image. The wire and sheath were removed and hemostasis was obtained with manual compression. The flushed and aspirate easily and were appropriately flushed with saline. The catheter was secured the patient using a STAT LOC device. The patient tolerated the procedure well and left department in good condition. Fluoroscopy time 1.1 minute COMPLICATIONS:None ESTIMATED BLOOD LOSS: Negligible Specimen: None IMPRESSION Successful placement of right upper extremity single-lumen CT injectable PICC line. rr: HOLLY *Reading Radiologist: Eden Tapia on 05/28/2020 at 12:46 PM Arelibrandy Osvaldo Kaitlin DO ORDERABLES * (ABNORMAL) RENAL FUNCTION PANEL (05/26/2020 4:58 AM CDT) Only the most recent of2 resultswithin the time period is included. Glucose 345(H) 70 - 105 mg/dL 05/26/2020 6:05 AM [facility] Sodium 134(L) 136 - 145 mmol/L 05/26/2020 6:05 AM T [facility] Potassium 5.0 3.5 - 5.1 mmol/L 05/26/2020 6:05 AM CDT [facility] Chloride 100 98 - 107 mmol/L 05/26/2020 6:05 AM T [facility] CO2 28 23 - 31 mmol/L 05/26/2020 6:05 AM CDT [facility] Calcium 9.7 8.4 - 10.4 mg/dL 05/26/2020 6:05 AM [facility] Anion Gap 6(L) 8 - 18 mmol/L 05/26/2020 6:05 AM [facility] Comment:Attention clinician: ??Reference Range change. BUN 18 8.4 - 25.7 mg/dL 05/26/2020 6:05 AM T [facility] Creatinine 1.11 0.72 - 1.25 mg/dL 05/26/2020 6:05 AM [facility] Albumin 2.8(L) 3.2 - 4.6 gm/dL 05/26/2020 6:05 AM [facility] Phosphorus 3.7 2.3 - 4.7 mg/dL 05/26/2020 6:05 AM CDT [facility] Comment:Attention clinician: ??Reference Range change. eGFR by MDRD >60 >60 mL/min/1.7 3m2 05/26/2020 6:05 AM CDT [facility] eGFR by MDRD >60 >60 mL/min/1.7 3m2 05/26/2020 6:05 AM CDT [facility] Blood BLOOD SPECIMEN / Unknown Lab Venipuncture / Unknown 05/26/2020 4:58 AM CDT 05/26/2020 5:30 AM CDT Bridgette Mason MD [facility] Organization Address City/State/ZIP Co de Phone Number [facility] [address] [place] [id number] * (ABNORMAL) CULTURE TISSUE+GRAM STAIN (05/25/2020 1:43 PM CDT) Only the most recent of2 resultswithin the time period is included. Culture Moderate Streptococcus constellatus(AA) ADAM 05/30/2020 6:04 AM CDT [facility] Culture Moderate Streptococcus anginosus(AA) ADAM 05/30/2020 6:04 AM CDT [facility] Culture Light Corynebacterium aurimucosum(AA) ADAM 05/30/2020 6:04 AM CDT [facility] Comment:No further workup pe rformed Gram Stain No organisms seen 021 6:04 AM CDT [facility] Gram Stain Moderate Polymorphonuclear cells 05/30/2020 6:04 AM CDT [facility] Gram Stain 05/30/2020 6:04 AM CDT [facility] Comment:Gpc?? Microbiology BONE SPECIMEN / Unknown 05/25/2020 1:43 PM CDT 05/25/2020 2:49 PM CDT Narrative [facility] - 05/30/2020 6:04 AM CDT Surgical Description: Left Heel Calcaneous Fragments For Culture *repeating susceptibilities on isol #1 to verify* Organism Antibiotic Method Susceptibility Streptococcus constellatus Ceftriaxone ADAM 0.5 ug/mL: Susceptible Streptococcus constellatus Clindamycin ADAM >=1 ug/mL: Resistant Streptococcus constellatus Erythromycin ADAM >=8 ug/mL: Resistant Streptococcus constellatus Levofloxacin ADAM >=16 ug/mL: Resistant Streptococcus constellatus Penicillin G ADAM 2 ug/mL: Intermediate Streptococcus constellatus Vancomycin ADAM 0.5 ug/mL: Susceptible Streptococcus anginosus Ampicillin ADAM <=0.25 ug/mL: Susceptible Streptococcus anginosus Cefotaxime ADAM <=0.12 ug/mL: Susceptible Streptococcus anginosus Ceftriaxone ADAM 0.5 ug/mL: Susceptible Streptococcus anginosus Clindamycin ADAM <=0.25 ug/mL: Susceptible Streptococcus anginosus Erythromycin ADAM <=0.12 ug/mL: Susceptible Streptococcus anginosus Levofloxacin ADAM 1 ug/mL: Susceptible Streptococcus anginosus Penicillin G ADAM 0.12 ug/mL: Susceptible Streptococcus anginosus Tetracycline ADAM >=16 ug/mL: Resistant Streptococcus anginosus Vancomycin ADAM 0.5 ug/mL: Susceptible Maxi Neville [facility] LAB - MICROBIOLOG Y ORDERABLES Performing Organization Address City/[facility]/ZIP Co de Phone Number [facility] [address] [place] [address], [facility] [phone] * CULTURE ANAEROBE (05/25/2020 1:43 PM CDT) Only the most recent of2 resultswithin the time period is included. Culture No anaerobic organisms isolated ADAM 05/30/2020 9:33 AM CDT [facility] Microbiology BONE SPECIMEN / Unknown 05/25/2020 1:43 PM CDT 05/25/2020 2:49 PM CDT Narrative [facility] - 05/30/2020 9:33 AM CDT Surgical Description: Left Heel Calcaneous Fragments For Culture Maxi Neville [facility] - MICROBIOLOG Y ORDERABLES [facility] [address] [place] [address], [facility] [phone] * PATHOLOGY TISSUE EXAM (STL) (05/25/2020 1:42 PM CDT) Case Report Surgical Pathology Report ? Case: [id number] ? Authorizing Provider: ??Maxi Neville DPM ?? Collected: ? 05/25/2020 01:42 PM ? Ordering Location: ? [facility] ? Received: ?05/28/2020 08:28 AM ? Pathologist: ? Arya Moon MD ? Specimen: ?Bone, left heel calcaneous fragments ? 05/30/2020 3:27 PM CDT [facility] Final Diagnosis Left calcaneus fragment, resection: -- Acute osteomyelitis 05/30/2020 3:27 PM CDT [facility] Clinical History Diabetic foot ulcer, osteomyelitis of left calcaneus 05/30/2020 3:27 PM CDT [facility] Gross Description One specimen received in a formalin filled container labeled left calcaneus fragment? consists of an irregular shaped 3.5 x 2.8 x 1.6 cm portion of dusky street-brown bone with attached shaggy street red rubbery tissue. Specimen is sectioned to reveal street-red bone throughout and automobile rental representative sections submitted in A1 after decalcification. 05/30/2020 3:27 PM CDT [facility] Microscopic Description Sections of the left calcaneus bone reveal bone with focal necroinflammatory material, consistent with osteomyelitis. 05/30/2020 3:27 PM CDT [facility] Disclaimer All histochemical and/or immunohistochemical results are interpreted with controls that demonstrate appropriate staining reactions before reporting results. Note on use of immunocytochemistry reagents: This test was developed and its performance characteristic determined by [facility], Department of Laboratory Medicine. It has not been cleared or approved by the U.S. Food and Drug Administration (FDA). The FDA has determined that such clearance or approval is not necessary. The test is used for clinical purpose. It should not be regarded as investigational or for research. This laboratory is certified to perform high complexity testing. The performance characteristics of the IHC/ISAURO assays have been validated on formalin-fixed paraffin embedded tissues only. The assays have not been validated on decalcified tissues. Results should be interpreted with caution. 05/30/2020 3:27 PM CDT [facility] Embedded Images 05/30/2020 3:27 PM CDT [facility] Pathology/Cytolo gy BONE SPECIMEN / Unknown 05/25/2020 1:42 PM CDT 05/28/2020 8:28 AM CDT Maxi Neville DPM LAB - PATHOLOGY/C YTOLOGY ORDERABLES Performing Organization Address City/[facility]/ZIP Co de Phone Number [facility] [address] [place] [address] * MAGNESIUM BLOOD (05/25/2020 3:48 AM CDT) Only the most recent of2 resultswithin the time period is included. Magnesium 1.6 1.6 - 2.6 mg/dL 05/25/2020 4:34 AM CDT [facility] Blood BLOOD SPECIMEN / Unknown Lab Venipuncture / Unknown 05/25/2020 3:48 AM CDT 05/25/2020 4:03 AM CDT Bridgette Mason MD LAB - CHEMISTRY ORDE RABLES [facility] [address] [place] [address] * VANCOMYCIN LEVEL TROUGH (05/24/2020 6:44 PM CDT) Vancomycin Trough 20.0 10.0 - 20.0 ug/mL 05/24/2020 7:08 PM CDT [facility] Blood BLOOD SPECIMEN / Unknown Lab Venipuncture / Unknown 05/24/2020 6:44 PM CDT 05/24/2020 6:47 PM CDT Soren Renee MD LAB - CHEMISTRY OR DERABLES Performing Organization Address City/[facility] [facility] Co de Phone Number [facility] [address] [place] [address] * VAS ARTERIAL ANKLE ARM INDEX (05/24/2020 3:31 PM CDT) Anatomical Region Laterality Modality Ankle / Foot, Upper Extremity In travascular Ultrasound 05/24/2020 2:54 PM CDT Narrative Procedure Note Edy Reynolds II, MD - 05/24/2020 [facility] [address] [facility] [place] [address] Lower Extremity Arterial Doppler Report Pat.Name: GIANCARLO MARRERO.ID: [id number] .Date: 05/24/2020 Exam Time: 2:54:00 PM Study Type:SOFIA/PVR Age: 6 1955,64Y Sex: MALE Sonogrphr: Quiana Eli RVT, STARLA Pat. Stat.:Inpatient Room: 558 CPT - 4: 11813 Reason for Study: Left foot wound History / Clinical: Obesity, Smoking - quit >6mo. Procedures: Ankle Brachial Index Race: 1 Visit ID: [id number] ++++++++++++++++++++++++++++++++++++ SUMMARY: ++++++++++++++++++++++++++++++++++++ No evidence for significant arterial insufficiency of either the right or left lower extremity at rest. Bilateral digital tracings are pulsatile. Normal wound healing capacity from arterial circulation standpoint. ++++++++++++++++++++++++++++++++++++ FINDINGS: ++++++++++++++++++++++++++++++++++++ Procedure: The arterial vasculature of the lower extremities was evaluated by analysis of Doppler pressures and waveforms obtained in the legs at rest. Study Quality: Technically difficult exam due to body habitus and hardened skin. Limited exam due to body habitus. Comments: Unable to obtain bilateral groin waveforms due to body habitus. Doppler Waveforms: Right Left Popliteal Tri to Bi Tri to Bi Posterior Tibial Tri to Bi Tri to Bi Dorsalis Pedis Tri to Bi Tri to Bi ++++++++++++++++++++++++++++++++++++ MEASUREMENTS: ++++++++++++++++++++++++++++++++++++ PRESSURES Left 1st Digit GreatToe P 112 mmHg Left SOFIA (DP) SOFIA (DP) 0.95 Left SOFIA (PT) SOFIA (PT) 1 Left Ankle DP AnkleDP P 161 mmHg Left Ankle PT AnklePT P 175 mmHg Left DBI DBI 0.66 Right 1st Digit GreatToe P 126 mmHg Right SOFIA (DP) SOFIA (DP) 1.3 Right SOFIA (PT) SOFIA (PT) 1.3 Right Ankle DP AnkleDP P 220 mmHg Right Ankle PT AnklePT P 214 mmHg Right Brachial Brach P 170 mmHg Right DBI DBI 0.74 Signed 05/24/2020 04:44 PM Edy DOZIER) SOLOMON Reynolds MD, RVT Chidi Madrigal DO VASCULAR LAB ORDERAB LES * MRI FOOT LEFT WO CONTRAST (05/24/2020 2:27 PM CDT) Anatomical Region Laterality Modality Ankle / Foot Magnetic Resonan ce 05/24/2020 2:48 PM CDT Impressions 05/24/2020 2:58 PM CDT A soft tissue ulcer overlies the plantar/posterior aspect of the calcaneus with calcaneal osteomyelitis. There is no evidence of abscess. *Reading Radiologist: Amish Quinteros on 05/24/2020 at 2:58 PM Narrative 05/24/2020 2:58 PM CDT MRI left foot without contrast HISTORY: Heel wound, concern for osteomyelitis. COMPARISON: Left calcaneus radiograph May 23, 2020 Technique: Multiplanar multisequence evaluation of the left foot without contrast. Technical note: The examination was originally ordered without and with contrast; however, secondary to the patient's breathing difficulty in the MRI scanner, the examination was terminated prematurely at the discretion of the reading radiologist and cardiac catheterization technologist. FINDINGS: Alignment of the hindfoot and midfoot is anatomic. Susceptibility artifact from tibial hardware is noted. No significant joint effusion is identified. T1 signal hypointensity is identified in the posterior/plantar aspect of the calcaneus with poor conspicuity of the plantar cortex. More diffuse T2 signal hyperintensity is identified in the mid/posterior aspect of the calcaneus. There is no associated linear component to suggest fracture. A soft tissue ulcer overlies the plantar aspect of the posterior calcaneus measuring roughly 2.1 x 3.1 cm. Abnormal fat signal intensity is identified in the heel fat-pad with T1 signal hypointensity and T2 signal hyperintensity. No confluent T2 hyperintense fluid collection is identified to suggest abscess. The Achilles tendon and plantar fascia are not significantly thickened. Feathery T2 signal hyperintensity is identified in the intrinsic foot musculature with atrophy. Skin thickening and platelike T2 signal hyperintensity is identified in the subcutaneous fat of the foot and ankle. The flexor, extensor, and peroneal tendons are intact. Procedure Note Amish Quinteros MD - 05/24/2020 MRI left foot without contrast HISTORY: Heel wound, concern for osteomyelitis. COMPARISON: Left calcaneus radiograph May 23, 2020 Technique: Multiplanar multisequence evaluation of the left foot without contrast. Technical note: The examination was originally ordered without and with contrast; however, secondary to the patient's breathing difficulty in the MRI scanner, the examination was terminated prematurely at the discretion of the reading radiologist and cardiac catheterization technologist. FINDINGS: Alignment of the hindfoot and midfoot is anatomic. Susceptibility artifact from tibial hardware is noted. No significant joint effusion is identified. T1 signal hypointensity is identified in the posterior/plantar aspect of the calcaneus with poor conspicuity of the plantar cortex. More diffuse T2 signal hyperintensity is identified in the mid/posterior aspect of the calcaneus. There is no associated linear component to suggest fracture. A soft tissue ulcer overlies the plantar aspect of the posterior calcaneus measuring roughly 2.1 x 3.1 cm. Abnormal fat signal intensity is identified in the heel fat-pad with T1 signal hypointensity and T2 signal hyperintensity. No confluent T2 hyperintense fluid collection is identified to suggest abscess. The Achilles tendon and plantar fascia are not significantly thickened. Feathery T2 signal hyperintensity is identified in the intrinsic foot musculature with atrophy. Skin thickening and platelike T2 signal hyperintensity is identified in the subcutaneous fat of the foot and ankle. The flexor, extensor, and peroneal tendons are intact. IMPRESSION A soft tissue ulcer overlies the plantar/posterior aspect of the calcaneus with calcaneal osteomyelitis. There is no evidence of abscess. *Reading Radiologist: Amish Quinteros on 05/24/2020 at 2:58 PM Maxi Neville DPM MR ORDERABLES * XR CALCANEUS LEFT 2VW OR MORE (05/23/2020 2:13 PM CDT) Anatomical Region Laterality Modality Lower Extremity, Ankle / Foot Ra diographic Imaging 05/23/2020 2:21 PM CDT Impressions 05/23/2020 5:17 PM CDT No evidence of fracture or malalignment. No cortical bone irregularity identified. Large posterior plantar ulcer of 5 cm. *Reading Radiologist: Kari Viramontes on 05/23/2020 at 5:17 PM Narrative 05/23/2020 5:17 PM CDT Os calcis HISTORY: 64-year-old with diabetic lesion of the heel. COMPARISON: None. FINDINGS: There is no fracture or subluxation. The subtalar joint is well aligned. There is a small plantar calcaneal spur. No definite cortical bone irregularity is identified, although a large posterior plantar ulcer is seen, of 5 cm in the AP dimension, and a depth of approximately 1.7 cm Procedure Note Kari Viramontes MD - 05/23/2020 Os calcis HISTORY: 64-year-old with diabetic lesion of the heel. COMPARISON: None. FINDINGS: There is no fracture or subluxation. The subtalar joint is well aligned. There is a small plantar calcaneal spur. No definite cortical bone irregularity is identified, although a large posterior plantar ulcer is seen, of 5 cm in the AP dimension, and a depth of approximately 1.7 cm IMPRESSION No evidence of fracture or malalignment. No cortical bone irregularity identified. Large posterior plantar ulcer of 5 cm. *Reading Radiologist: Kari Viramontes on 05/23/2020 at 5:17 PM Maxi Neville DP DIAGNOSTIC IMAGIN G ORDERABLES * VAS BILATERAL VENOUS DUPLEX LE (05/23/2020 9:58 AM CDT) Anatomical Region Laterality Modality Lower Extremity Intravascular Ul trasound 05/23/2020 9:32 AM CDT Narrative Procedure Note Edy Reynolds Sr., MD - 05/23/2020 [facility] [address] [place] [address] Lower Extremity Venous Ultrasound Report Pat.Name: GIANCARLO MARRERO Pat.ID: [id number] .Date: 05/23/2020 Refer.MD: Soren Renee Exam Time: 9:32:00 AM Study Type:LE Venous Weight: 337lb Age: 6 1955,64Y Sex: MALE Sonogrphr: Nba Ag RVT, [facility] Pat. Stat.:Inpatient Room: 558 CPT - 4: 13886 Reason for Study: Edema, Bilateral leg wounds History / Clinical: Obesity Procedures: Lower Extremity Venous - Bilateral Race: 1 Visit ID: [id number] ++++++++++++++++++++++++++++++++++++ SUMMARY: ++++++++++++++++++++++++++++++++++++ No evidence of deep or superficial venous thrombosis of either the right or left lower extremity. Reflux is seen in the bilateral distal great saphenous veins. Pulsatile flow in the proximal major veins is likely indicative of central venous hypertension. ++++++++++++++++++++++++++++++++++++ FINDINGS: ++++++++++++++++++++++++++++++++++++ Procedure: Venous duplex imaging of both lower extremities was performed using color flow and spectral Doppler analysis. Study Quality: Technically difficult exam due to body habitus and leg wounds. Bilateral: All vessels seen appear patent and compressible. There was spontaneous and pulsatile flow seen in the common femoral and femoral veins of both lower extremities. Appropriate augmentation with distal compression. Evidence of reflux in the distal portion of the great saphenous vein bilaterally. Suboptimal visualization of calf veins due to body habitus. Unable to really visualize bilateral peroneal veins due to body habitus. Signed 05/23/2020 11:03 AM Edy Reynolds MD, RPVI Soren Renee MD VASCULAR LAB ORDER [place] * (ABNORMAL) HEMOGLOBIN A1C (05/23/2020 5:06 AM CDT) Hemoglobin A1c 11.3(H) 4.2 - 5.6 % 05/25/2020 1:24 AM T [facility] Estimated Average Glucose 278 mg/dL 05/25/2020 1:24 AM T [facility] Blood BLOOD SPECIMEN / Unknown Lab Venipuncture / Unknown 05/23/2020 5:06 AM CDT 05/23/2020 5:13 AM CDT [facility] - 05/25/2020 1:24 AM CDT The following cutoff levels are recommended by [place] [employer]. ?? A1c ??> 6.5% : considered as diabetes if two separate tests >6.5% or in an appropriate clinical setting. A1c ??5.7% - 6.4% : considered as prediabetes (suggest increased risk for diabetes and cardiovascular disease) Control target level: ??Should be individualized. ??< 7 ??for general (non- ) , ??< 8% less stringent goal, ??< 6.5 ??more stringent goal. Hemoglobin A1c measurements are used as an aid in the diagnosis of diabetic mellitus, as an aid to identify patients who may be at the risk for developing diabetic mellitus, and for the monitoring long-term blood glucose control in individuals with diabetes mellitus. ??This test should not replace glucose testing for patients with Type 1 diabetes, pediatric patients, or women. ??Falsely low HbA1c results may be observed in patients with clinical conditions that shorten erythrocyte life span or decrease mean erythrocyte age such as the presence of unstable hemoglobin variants, elevated hemoglobin F level ??or other causes of hemolytic anemia . ??HbA1c may not accurately reflect glycemic control when clinical conditions that affect erythrocyte survival are present. ??Severe Iron deficiency anemia may yield falsely high results. ??Hemoglobin A1c assay should not be used to diagnose or monitor diabetes in patients with malignancy, recent blood transfusion, chronic kidney or liver disease. ?? This method may yield falsely low results when hemoglobin (HbF) exceeds 5% in the specimen. Bridgette Mason MD LAB - CHEMISTRY [facility] Organization Address City/State/[facility] Co de Phone Number [facility] [address] [place] [address] * (ABNORMAL) PT-INR (05/23/2020 5:06 AM CDT) PT 14.8 12.1 - 14.8 sec 05/23/2020 5:57 AM CDT [facility] INR 1.2(H) 0.9 - 1.1 05/23/2020 5:57 AM CDT [facility] Blood BLOOD SPECIMEN / Unknown Lab Venipuncture / Unknown 05/23/2020 5:06 AM CDT 05/23/2020 5:13 AM CDT Narrative [facility] - 05/23/2020 5:57 AM CDT Conventional Warfarin Anticoagulant Therapy: INR Reference Range: ??2.0-3.0 Intensive Warfarin Anticoagulant Therapy: INR Reference Range: ? 2.5-3.5 Soren Renee MD LAB - COAGULATION ORDERABLES [facility] [address] [place] [address] * (ABNORMAL) COMPREHENSIVE METABOLIC PANEL (05/23/2020 5:06 AM CDT) [facility] Glucose 200(H) 70 - 105 mg/dL 05/23/2020 5:35 AM CDT [facility] Sodium 134(L) 136 - 145 mmol/L 05/23/2020 5:35 AM CDT [facility] Potassium 4.4 3.5 - 5.1 mmol/L 05/23/2020 5:35 AM CDT [facility] Chloride 99 98 - 107 mmol/L 05/23/2020 5:35 AM CDT [facility] CO2 26 23 - 31 mmol/L 05/23/2020 5:35 AM CDT [facility] Calcium 9.9 8.4 - 10.4 mg/dL 05/23/2020 5:35 AM CDT [facility] Anion Gap 9 8 - 18 mmol/L 05/23/2020 5:35 AM CDT [facility] Comment:Attention clinician: ??Reference Range change. BUN 14 8.4 - 25.7 mg/dL 05/23/2020 5:35 AM CDT [facility] Creatinine 0.86 0.72 - 1.25 mg/dL 05/23/2020 5:35 AM CDT [facility] Alkaline Phosphatase 82 40 - 150 U/L 05/23/2020 5:35 AM CDT [facility] Comment:Attention clinician: ??Reference Range change. ALT 11 0 - 61 U/L 05/23/2020 5:35 AM CDT [facility] AST 11 5 - 34 U/L 05/23/2020 5:35 AM CDT [facility] Protein Total 7.4 6.4 - 8.3 gm/dL 05/23/2020 5:35 AM CDT [facility] Albumin 2.8(L) 3.2 - 4.6 gm/dL 05/23/2020 5:35 AM CDT [facility] Bilirubin Total 0.5 0.2 - 1.2 mg/dL 05/23/2020 5:35 AM CDT [facility] Comment:Attention clinician: ??Reference Range change. eGFR by MDRD >60 >60 mL/min/1.7 3m2 05/23/2020 5:35 AM CDT [facility] eGFR by MDRD >60 >60 mL/min/1.7 3m2 05/23/2020 5:35 AM CDT [facility] Blood BLOOD SPECIMEN / Unknown Lab Venipuncture / Unknown 05/23/2020 5:06 AM CDT 05/23/2020 5:13 AM CDT Soren Renee MD LAB - CHEMISTRY OR DERABLES [facility] [address] [place] [address] * LACTIC ACID BLOOD (05/23/2020 5:06 AM CDT) Lactic Acid 1.1 0.5 - 2.2 mmol/L 05/23/2020 5:31 AM CDT [facility] Blood BLOOD SPECIMEN / Unknown Lab Venipuncture / Unknown 05/23/2020 5:06 AM CDT 05/23/2020 5:13 AM CDT Soren Renee MD LAB - CHEMISTRY OR DERABLES [facility] [address] [place] [address] Care Teams Cost Consultant Relationship Specialty Start Date End Date Adeola Marr MD [address] [place] [address] PCP - General 07/12/20
--- OUTSIDE RECORDS SUMMARY | 2024-03-06 15:20 | XMS_ITS | Clinical Summary ---
Author Organization [facility] Address [address] [place] [address] Care Team Providers Care Sales Promotion Coordinator Name Role Phone Adeola Marr MD Primary Care Provider Source Comments [facility],non-owned Affiliates and Associated Physician Practices is [facility] organization consisting of ambulatory clinics and hospital sitesin [place], [place], [place] and [place]. This disclosure is being madepursuant to the Care Everywhere program and may not contain all information available regarding this patient. Last updated 17.[facility] Allergies No known active allergies Medications * Be aware that medications may not be up to date on this document. Alwaysverify current medications with the patient. Medication Sig Dispensed Refills Start Date End Date Status albuterol HFA (PROVENTIL;VENTOLI N;PROAIR) 108 (90 Base) MCG/ACT inhaler Inhale 2 puffs by mouth every 6 hours as needed for Shortness of Breath Active aspirin EC (ECOTRIN) 81 MG tablet Take 81 mg by mouth once daily Active DULoxetine HCl 40 MG Take 40 mg by mouth once daily Active furosemide (LASIX) 40 MG tablet Take 40 mg by mouth once daily Active gabapentin (NEURONTIN) 300 MG capsule Take 300 mg by mouth 4 times daily Active HYDROcodone-acetam inophen (NORCO) 7.5-325 MG tablet Take 1 tablet by mouth every 6 hours as needed for Pain Active levothyroxine (SYNTHROID) 100 MCG tablet Take 100 mcg by mouth daily before breakfast Activ e lisinopril (PRINIVIL; ZESTRIL) 40 MG tablet Take 40 mg by mouth once daily Active loratadine (CLARITIN) 10 MG tablet Take 10 mg by mouth once daily Active metFORMIN (GLUCOPHAGE) 1000 MG tablet Take 1,000 mg by mouth 2 times daily with morning and evening meal Active multivitamin daily tablet Take 1 tablet by mouth daily with food Active omeprazole EC (PRILOSEC OTC) 20 MG tablet Take 20 mg by mouth daily before breakfast Activ e pravastatin (PRAVACHOL) 40 MG tablet Take 40 mg by mouth at bedtime Active dilTIAZem ER 24hr (TIADYLT ER) 240 MG capsule Take 240 mg by mouth once daily Active traZODone (DESYREL) 50 MG tablet Take 150 mg by mouth at bedtime Active insulin glargine (LANTUS) pen Inject 30 (thirty) Units subcutaneously once daily 05/30/2020 Active insulin aspart (NOVOLOG) pen Inject 0 (zero) Units to 12 (twelve) Units subcutaneously 3 times daily with meals Per sliding scale 05/29/2020 Active collagenase (SANTYL) 250 UNIT/GM ointment Apply to affected area once daily 05/29/2020 Active mupirocin (BACTROBAN) 2 % ointment Apply to affected area once daily 05/29/2020 Active Active Problems Problem Noted Date Diagnosed Date Cellulitis of left heel 05/26/2020 Assessment & Plan (05/27/2020 12:29 PM CDT): On ceftriaxone and anticipate she will be on it for 6 weeks Assessment & Plan (05/26/2020 3:19 PM CDT): On ceftriaxone and anticipate she will be on it for 6 weeks Type 2 diabetes mellitus with hyperglycemia 05/01 Assessment & Plan (05/27/2020 12:29 PM CDT): He is on glycemic management protocol and will need his lantus increased for better glycemic control Assessment & Plan (05/26/2020 3:20 PM CDT): She is on glycemic management protocol and will need her lantus increased for better glycemic control Morbid obesity 05/26/2020 Assessment & Plan (05/27/2020 12:29 PM CDT): Will need to be counseled on weight management as an out patient Assessment & Plan (05/26/2020 3:21 PM CDT): Will need to be counseled on weight management as an out patient Open wound of left heel 05/22/2020 Assessment & Plan (05/27/2020 12:29 PM CDT): Had debridement done by Podiatry on May 25. ID suspicious for calcaneal osteomyelitis. Patient on Ceftriaxone. Wound culture shows moderate streptococcus constellatus Streptococcus anginosus, Proteus vulgaris and light staphylococcus Will defer antibiotics to ID. Is doing better Assessment & Plan (05/26/2020 3:19 PM CDT): Had debridement done by Podiatry on May 25. ID suspicious for calcaneal osteomyelitis. Patient on Ceftriaxone. Wound culture shows moderate streptococcus constellatus Streptococcus anginosus, Proteus vulgaris and light staphylococcus Will defer antibiotics to ID. Social History Tobacco Use Types Packs/Day Years [...] Mass Index 47.04 05/23/2020 2:52 AM CDT Plan of Treatment Health Maintenance Due Date Last Done Comments COLOGUARD (AGES 45-75) - COLON CA SCREENING 1955 COLON MONITORING 1955 COLONOSCOPY - COLON CA SCREENING 1955 CT COLONOGRAPHY - COLON CA SCREENING 1955 Colorectal Cancer Screening 1955 FIT - COLON CA SCREENING 1955 FLEX SIG - COLON CA SCREENING 1955 PNEUMOCOCCAL VACCINE 65+ (1 of 2 - PCV) 08/05/1961 HEPATITIS C SCREENING 08/01/1973 DTAP/TDAP/TD VACCINES (1 - Tdap) 08/05/1974 ZOSTER VACCINE (1 of 2) 08/05/2005 Respiratory Syncytial Virus (RSV) Vaccine Pt: or over 60 yrs (1 - Risk 60-74 years 1-dose series) 2015 DIABETES RETINOPATHY SCREENING 05/26/2020 DIABETES-FOOT EXAM WITH MONOFILAMENT 05/26/2020 AAA SCREENING 08/05/2020 DIABETES-HGB A1C 11/23/2020 05/23/2020 DIABETES-SERUM CREATININE 05/29/20212020, 05/26/2020, 05/25/2020, Additional history exists DIABETES - URINE PROTEIN SCREENING 03/02/2023 COVID-19 VACCINE ( season) 2023 INFLUENZA VACCINE (#1) 2023 0, 11/17/2018, 11/17/2008 DEPRESSION SCREENING 03/02/2024 MEDICARE AWV ? CALENDAR YEAR 2024 HEPATITIS B VACCINE Aged Out No longe r eligible based on patient's age to complete this topic HIB VACCINE Aged Out No longer eligi ble based on patient's age to complete this topic HPV VACCINE Aged Out No longer eligi ble based on patient's age to complete this topic MENINGOCOCCAL VACCINE Aged Out No jesus roxana eligible based on patient's age to complete this topic Procedures Procedure Name Priority Date/Time Associated Diagnosis Comments BASIC METABOLIC PANEL (CALCIUM TOTAL) AM Draw 05/29/2020 3:37 AM CDT HEMOGLOBIN A1C Routine 05/23/2020 5:06 AM CDT from Last 3 Months or Most Recently Relevant to Health Maintenance Results * (ABNORMAL) BASIC METABOLIC PANEL (CALCIUM TOTAL) (05/29/2020 3:37 AM CDT) Pathologist [facility] Glucose 260(H) 70 - 105 mg/dL 05/29/2020 5:03 AM CDT [facility] Sodium 136 136 - 145 mmol/L 05/29/2020 5:03 AM CDT [facility] Potassium 3.9 3.5 - 5.1 mmol/L 05/29/2020 5:03 AM [facility] Chloride 97(L) 98 - 107 mmol/L 05/29/2020 [facility] CO2 31 23 - 31 mmol/L 05/29/2020 [facility]:03 [facility] Calcium 10.3 8.4 - 10.4 mg/dL 05/29/2020 5:03 AM [facility] Anion Gap 8 8 - 18 mmol/L 05/29/2020 5:03 AM T [facility] Comment:Attention clinician: Reference Range change. BUN 19 8.4 - 25.7 mg/dL 05/29/2020 5:03 AM CDT [facility] Creatinine 1.07 0.72 - 1.25 mg/dL 05/29/2020 5:03 AM [facility] eGFR by MDRD >60 >60 mL/min/1.7 3m2 05/29/2020 5:03 AM CDT [facility] eGFR by MDRD >60 >60 mL/min/1.7 3m2 05/29/2020 5:03 AM [facility] Blood BLOOD SPECIMEN / Unknown Lab Venipuncture / Unknown 05/29/2020 3:37 AM CDT 05/29/2020 4:29 AM CDT Bobby Doyle MD LAB - CHEMISTRY [facility] ([place], [place]) Organization Address City/State/ZIP Co de Phone Number [facility] [address] [place] [address] * (ABNORMAL) HEMOGLOBIN A1C (05/23/2020 5:06 AM CDT) Pathologist [facility] Hemoglobin A1c 11.3(H) 4.2 - 5.6 % 05/25/2020 1:24 AM CDT [facility] Estimated Average Glucose 278 mg/dL 05/25/2020 1:24 AM T [facility] Blood BLOOD SPECIMEN / Unknown Lab Venipuncture / Unknown 05/23/2020 5:06 AM CDT 05/23/2020 5:13 AM CDT Narrative [facility] - 05/25/2020 1:24 AM CDT The following cutoff levels are recommended by [place] [employer]. ?? A1c ??> 6.5% : [...] Mason MD LAB - CHEMISTRY [facility] ([place], [place]) Organization Address City/State/ZIP Co de Phone Number [facility] [address] [place] [address] from Last 3 Months or Most Recently Relevant to Health Maintenance Advance Directives * Full Code (Latest Code Status on File) Date Activated Date Inactivated Comments 05/23/2020 3:04 AM 05/29/2020 6:51 PM Care Teams Sales Promotion Coordinator Relationship Specialty Start Date End Date Adeola Marr MD [address] [place] [address] PCP - General 07/12/20
--- OUTSIDE RECORDS SUMMARY | 2024-03-06 15:20 | XMS_ITS | Referral Summary ---
Author Organization [facility] Address [address] [place] [address] Care Team Providers Care Representative Personal Service Name Role Phone Adeola Marr MD Primary Care Provider Source Comments [facility],non-owned Affiliates and Associated Physician Practices [facility] consisting of ambulatory clinics and hospital sitesin [place], [place], [place] and [place]. This disclosure is being madepursuant to the Care Everywhere program and may not contain all information available regarding this patient. Last updated 17.[facility] Allergies No known active allergies Medications * [...] Mass Index 47.04 05/23/2020 2:52 AM CDT Functional Status Functional Status Response Date of Assess ment Is person deaf or have serious hearing difficult y? Yes 05/23/2020 Is person blind or have serious difficulty seein g? No 05/23/2020 Does person have serious dif ficulty walking/climbing stairs? Yes 05/23/2020 Does person have difficulty dressing/bathing? No 05/23/2020 Does person have difficulty doing errands alone? No 05/23/2020 Cognitive Status Response Date of Assessm ent Does person have difficulty concentrating/remembering/making decisions? No 05/23/2020 Plan of Treatment Not on file Procedures Procedure Name Priority Date/Time Associated Diagnosis Comments BASIC METABOLIC PANEL (CALCIUM TOTAL) AM Draw 05/29/2020 3:37 AM CDT HEMOGLOBIN A1C Routine 05/23/2020 5:06 AM CDT from Last 3 Months or Most Recently Relevant to Health Maintenance Results * (ABNORMAL) BASIC METABOLIC PANEL (CALCIUM TOTAL) (05/29/2020 3:37 AM CDT) [facility] Glucose 260(H) 70 - 105 mg/dL 05/29/2020 5:03 AM [facility] Sodium 136 136 - 145 mmol/L 05/29/2020 5:03 AM [facility] Potassium 3.9 3.5 - 5.1 mmol/L 05/29/2020 5:03 AM [facility] Chloride 97(L) 98 - 107 mmol/L 05/29/2020 5:03 AM [facility] CO2 31 23 - 31 mmol/L 05/29/2020 5:03 AM [facility] Calcium 10.3 8.4 - 10.4 mg/dL 05/29/2020 5:03 AM [facility] Anion Gap 8 8 - 18 mmol/L 05/29/2020 5:03 AM [facility] Comment:Attention clinician: Reference Range change. BUN 19 8.4 - 25.7 mg/dL 05/29/2020 5:03 AM [facility] Creatinine 1.07 0.72 - 1.25 mg/dL 05/29/2020 5:03 AM [facility] eGFR by MDRD >60 >60 mL/min/1.7 3m2 05/29/2020 5:03 AM CDT [facility] eGFR by MDRD >60 >60 mL/min/1.7 3m2 05/29/2020 5:03 AM CDT [facility] Blood BLOOD SPECIMEN / Unknown Lab Venipuncture / Unknown 05/29/2020 3:37 AM CDT 05/29/2020 4:29 AM CDT Bobby Doyle MD LAB - CHEMISTRY JUANJO CUM[facility]INS [facility] [address] [place] [address] * (ABNORMAL) HEMOGLOBIN A1C (05/23/2020 5:06 AM CDT) Hemoglobin A1c 11.3(H) 4.2 - 5.6 % 05/25/2020 1:24 AM CDT [facility] Estimated Average Glucose 278 mg/dL 05/25/2020 1:24 AM CDT [facility] Blood BLOOD SPECIMEN / Unknown Lab Venipuncture / Unknown 05/23/2020 5:06 AM CDT 05/23/2020 5:13 AM CDT Narrative [facility] - 05/25/2020 1:24 AM CDT The following cutoff levels are recommended by [place] [employer]. ?? A1c ??> 6.5% : [...] Mason MD LAB - CHEMISTRY JUANJO CUMMINS [facility] Organization Address City/State/ZIP Co de Phone Number [facility] [address] [place] [address] from Last 3 Months or Most Recently Relevant to Health Maintenance Advance Directives * Full Code (Latest Code Status on File) Date Activated Date Inactivated Comments 05/23/2020 3:04 AM 05/29/2020 6:51 PM Care Teams Representative Personal Service Relationship Specialty Start Date End Date Adeola Marr MD [address] [place] [address] PCP - General 07/12/20
--- OUTSIDE RECORDS SUMMARY | 2024-03-06 15:21 | XMS_ITS | Encounter Summary ---
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 Name Role Phone Leeroy Shehean DO Primary Care Provide r Reason for Visit * Auth/Cert Specialty Diagnoses / Procedures Referred By Juan cosme Referred To Contact Diagnoses Necrotic left heel; cellulitis/osteromyelitis Referral ID Status Reason Start Date Expiration Date Visits Re quested Visits Authorized [id number] 1 1 Encounter Details Date Type Department Care Team (Latest Contact Info) Description 05/23/2020 1:09 AM CDT - 05/29/2020 5:40 PM CDT Hospital Encounter [facility] 5D ONCOLOGY [address] [place] [address] Bobby Doyle MD [address] [place] [address] Bridgette Mason MD [address] [place] [address] Jose Astudillo MD [address] [place] [address] MD [address] [place] [address] Carroll Briseno MD [address] [place] [address] Podiatry Discharge Disposition: Shelter Facility Social History Tobacco Use Types Packs/Day Years [...] on file Sexual Orientation Not on file COVID-19 Exposure Response Date Recorded In the last month, have you been in contact with someone who was confirmed or suspected to have Coronavirus / COVID-19? No / Unsure 05/23/2020 1:51 AM CDT documented as of this encounter Last Filed Vital Signs Vital Sign Reading [...] Mass Index 47.04 05/23/2020 2:52 AM CDT documented in this encounter Functional Status Functional Status Response Date of [...] person have difficulty concentrating/remembering/making decisions? No 05/23/2020 documented as of this encounter Discharge Summaries * Carroll Briseno MD - 05/29/2020 12:03 PM CDT Physician Discharge Summary Admit date: 05/23/2020 Discharge date: 05/29/2020 Admitting Physician: Bobby Doyle MD Attending Physician: Carroll Briseno MD Discharge Physician: Carroll Briseno MD Name: Taye Marrero Admission Diagnosis: Open wound of left heel Discharge Diagnoses Open wound of left heel Type 2 diabetes mellitus with hyperglycemia HTN Hypothyroidism Morbid obesity Consults ID Podiatry Diagnostic Studies Recent Labs Component Name 05/29/2033605/26/2045705/23/20 0506 WBC 8.9 10.5 9.8 HGB 14.8 14.1 13.8 HCT 49.2 46.5 44.1 PLTCOUNT 356 302 273 Recent Labs Component Name 05/29/2033605/26/2045705/25/208 SODIUM 136 134* 135* POTASSIUM 3.9 5.0 3.7 CHLORIDE 97* 100 100 CO2 31 28 26 BUN 19 18 12 CREATININE 1.07 1.11 0.85 GLUCOSE 260* 345* 174* CALCIUM 10.3 9.7 10.0 EGFR >60 >60 >60 EGFRAFR >60 >60 >60 Recent Labs Component Name 05/26/2045705/25/208 05/23/20 0506 ALBUMIN 2.8* 2.9* 2.8* ALKPHOS - - 82 ALT - - 11 AST - - 11 TBIL - - 0.5 TPROT - - 7.4 Xr Calcaneus Left 2vw Or More Result Date: 05/23/2020 Os calcis HISTORY: 64-year-old with diabetic lesion of the heel. COMPARISON: None. FINDINGS: There is no fracture or subluxation. The subtalar joint is well aligned. There is a small plantar calcaneal spur. No definite cortical bone irregularity is identified, although a large posterior plantar ulcer is seen, of 5 cm in the AP dimension, and a depth of approximately 1.7 cm No evidence of fracture or malalignment. No cortical bone irregularity identified. Large posterior plantar ulcer of 5 cm. *Reading Radiologist: Kari Viramontes on 05/23/2020 at 5:17 PM Mri Foot Left Wo Contrast Result Date: 05/24/2020 MRI left foot without contrast HISTORY: [...] the discretion of the reading radiologist and geodetic surveyor technologist. FINDINGS: Alignment of the hindfoot and midfoot is anatomic. Susceptibility artifact from tibial hardware is noted.No significant joint effusion is identified. T1 signal hypointensity is identified in the posterior/ plantar aspect of the calcaneus with poor conspicuity of the plantar cortex. More diffuse T2 signalhyperintensity is identified in the mid/posterior aspect of [...] hyperintensity is identified in the intrinsic foot musculaturewith atrophy. Skin thickening and platelike T2 signal hyperintensity is identified in the subcutaneous fat of the foot and ankle. The flexor, extensor, and peroneal tendons are intact. A soft tissue ulcer overlies the plantar/posterior aspect of the calcaneus with calcaneal osteomyelitis. There is no evidence of abscess. *Reading Radiologist: Amish Quinteros on 05/24/2020 at 2:58 PM Ir Picc Line Insert Result Date: 05/28/2020 PROCEDURE: Right upper extremity PICC line [...] using a micropuncture needle and a 0.018 wirewas introduced. Realtime ultrasound visualization of vascular needle [...] and aspirate easily and were appropriately flushed withsaline. The catheter was secured the patient using a STAT LOC device. The patient tolerated the procedure well and left department in good condition. Fluoroscopy time 1.1 minute COMPLICATIONS:None ESTIMATED BLOOD LOSS: Negligible Specimen: None Successful placement of right upper extremity single-lumen CT injectable PICC line. rr: FM *ReadingRadiologist: Eden Tapia on 05/28/2020 at 12:46 PM Treatments See hospital course Procedures See hospital course Discharge day 05/29/2020 Exam Vitals: 05/28/20 2235 05/29/20 0501 05/29/20 0747 05/29/20 1116 BP: 154/89 152/84 153/95 140/90 Pulse: 96 87 77 92 Resp: 20 20 20 20 Temp: 98.1 ??F (36.7 ??C) 97.8 ??F (36.6 ??C) 98.1 ??F (36.7 ??C) 98.3 ??F (36.8 ??C) SpO2: 92% 92% 93% 97% Weight: Height: General appearance: alert, cooperative, no distress Chest: no tenderness Lungs: breath sounds normal and symmetric; no rales or wheezes Heart: regular rhythm, normal S1 and S2, without murmurs, gallops or rubs Abdomen: soft without mass, non-tender, with normal bowel sounds Extremities: no clubbing, cyanosis or edema, +left heel ulcer Neurologic: mental status normal; alert and oriented X 3; Motor/Sensory exam grossly normal Hospital Course Open wound of left heel Had debridement done by Podiatry on May 25. ??ID suspicious for calcaneal osteomyelitis. Patient on Ceftriaxone. Wound culture shows moderate streptococcus constellatus Streptococcus anginosus, Proteus vulgaris and light staphylococcus ?? Ceftriaxone 2g IV q24 hours for calcaneal osteomyelitis x 6 weeks, planned end date 07/05/20 PICC on 05/28 ID followed- ok for SNF d/c on 05/29 ?? Type 2 diabetes mellitus with hyperglycemia He??is on glycemic management protocol and will need his??lantus increased for better glycemic control as OP as well- close OP f/u advised ?? HTN On cardizem and lisinopril ?? Hypothyroidism On levothyroxine ?? Morbid obesity Will need to be counseled on weight management as an out patient Condition at discharge: Stable Disposition: SNF Code Status At Discharge: Full Code Patient Instructions Current Discharge Medication List START taking these medications Instructions Authorizing Provider cefTRIAXone 2 g 2,000 mg in 0.9% NaCl IV 0.9 % 50 mL Start taking on: May 30, 2020 2,000 (two thousand) mg by Intravenous route every 24 hours for 36 days Carroll Briseno MD collagenase 250 UNIT/GM ointment Commonly known as: Santyl Quantity Dispensed: Apply to affected area once daily Carroll Briseno MD insulin aspart pen Commonly known as: NovoLOG Quantity Dispensed: Inject 0 (zero) Units to 12 (twelve) Units subcutaneously 3 times daily with meals Per sliding scale Carroll Briseno MD insulin glargine pen Commonly known as: Lantus Start taking on: May 30, 2020 Inject 30 (thirty) Units subcutaneously once daily Carroll Briseno MD mupirocin 2 % ointment Commonly known as: Bactroban Quantity Dispensed: Apply to affected area once daily Carroll Briseno MD CONTINUE taking these medications which have NOT CHANGED Instructions Authorizing Provider albuterol HFA 108 (90 Base) MCG/ACT inhaler Commonly known as: Proventil;Ventolin;Proair Inhale 2 puffs by mouth every 6 hours as needed for Shortness of Breath aspirin EC 81 MG tablet Commonly known as: Ecotrin Take 81 mg by mouth once daily DULoxetine HCl 40 MG Take 40 mg by mouth once daily furosemide 40 MG tablet Commonly known as: Lasix Take 40 mg by mouth once daily gabapentin 300 MG capsule Commonly known as: Neurontin Take 300 mg by mouth 4 times daily HYDROcodone-acetaminophen 7.5-325 MG tablet Commonly known as: [place] Take 1 tablet by mouth every 6 hours as needed for Pain levothyroxine 100 MCG tablet Commonly known as: Synthroid Take 100 mcg by mouth daily before breakfast lisinopril 40 MG tablet Commonly known as: Prinivil; Zestril Take 40 mg by mouth once daily loratadine 10 MG tablet Commonly known as: Claritin Take 10 mg by mouth once daily metFORMIN 1000 MG tablet Commonly known as: Glucophage Take 1,000 mg by mouth 2 times daily with morning and evening meal multivitamin daily tablet Take 1 tablet by mouth daily with food omeprazole EC 20 MG tablet Commonly known as: PriLOSEC OTC Take 20 mg by mouth daily before breakfast pravastatin 40 MG tablet Commonly known as: Pravachol Take 40 mg by mouth at bedtime Tiadylt ER 240 MG capsule Generic drug: dilTIAZem ER 24hr Take 240 mg by mouth once daily traZODone 50 MG tablet Commonly known as: Desyrel Take 150 mg by mouth at bedtime STOP taking these medications glimepiride 4 MG tablet Commonly known as: Amaryl Discharge Procedure Orders PT Eval and Treat Referral Standing Status: Future Referral Priority: Routine Referral Type: PT/OT/ST Referral Reason: Specialty Services Required Number of Visits Requested: 1 OT Eval and Treat Referral Standing Status: Future Referral Priority: Routine Referral Type: Independent Medical Evaluation Referral Reason: Specialty Services Required Number of Visits Requested: 1 Why you were hospitalized Order Specific Question Answer Comments Your discharge diagnosis is: Osteomyelitis [137941] Diet instructions May substitute facility diet equivalent Diet for Special Occasions May disregard therapeutic diet on special occasions per facility policy and bureau director. Oxygen Saturation PRN Distress Oxygen Saturation - Check PRN for respiratory distress or change in patients condition per bureau director. Notify Physician Order Specific Question Answer Comments SBP greater than 180 SBP less than 90 DBP greater than 100 DBP less than 50 Pulse greater than 110 Pulse less than 50 Resp greater than 28 Resp less than 12 Temp greater than 100.5 F For a blood sugar reading higher than 350 For a blood sugar reading less than 60 Notify Physician if Patient's weight increases or decreases by 3 lbs. in one day or 3 lbs. in one week. Follow up with Primary Care Provider (PCP) Our records show your Primary Care Provider (PCP) is Leeroy Sheehan DO. Order Specific Question Answer Comments Follow Up Instructions: follow-up with PCP within 1 week IF HYPOGLYCEMIC, UNRESPONSIVE AND UNABLE TO TAKE BY MOUTH ADMINISTER GLUCAGON 1 mg IM x 1 Recheck blood glucose and assess clinical status in 15 minutes and repeat Glucagon as needed. Must notify physician immediately after use. IF HYPOGLYCEMIC (LESS THAN 70) AND PATIENT IS ABLE TO SWALLOW ADMINISTER DEXTROSE 40% ORAL GEL PO x 1 Recheck blood sugar in 15 minutes, may repeat PRN if blood sugar remains less than 70. Must notify physician immediately after use. Influenza Vaccination May have annual Influenza vaccine unless contraindicated. Generic equivalent Drugs Generic equivalent drugs may be substituted by pharmacy unless otherwise indicated. TB Skin testing May have 2 step TB Skin test unless contraindicated or history of positive TB skin test. Shelter Facility (SNF) Admission Taye is to be admitted to a Shelter Facility. Taye has been examined and does not have any emergency medical conditions. Physician Certification of Need I certify that post hospital Shelter Facility services are required to be given on an inpatient basis because of the patient's need for detention facility care on a continuous basis forthe condition(s) for which Taye was receiving in-hospital services prior to transfer to a detention facility. The orders on this document are my transfer orders to be active at the new facility after discharge from the Hospital. The orders replace any other lists of orders or medications. Electronically signed by Carroll Briseno MD 05/29/2020 12:00 PM Transfer care to Halfway provider or other physician. Notify patient's Physician and/or GNP of admission per facility protocol and for any additional orders or change in condition. Cardiac (heart-healthy) diet Activity as tolerated Rest today, and increase activity level tomorrow as tolerated. Special instructions Ceftriaxone 2g IV q24 hours for calcaneal osteomyelitis x 6 weeks, planned end date 07/05/20 Needs aggressive wound care for bilateral LE lymphedema Cbc, cmp, crp weekly??to be followed by SNF physician Discharge time: greater than 30 minutes. CC: Leeroy Sheehan DO [phone] documented in this encounter Discharge Instructions * Discharge Instr - Post-Surgical Care* Marycruz Martinez RN - 05/29/2020 3:14 PM CDT Change dressing to left heel wound BID and PRN. Betadine swab to heel wound then pack with fluffs, cover with 4x4s, kerlix and letitia. Toe touch weight bearing only to left foot. documented in this encounter Medications at Time of Discharge Medication Sig Dispensed Refills Start Date End Date albuterol HFA (PROVENTIL;VENTOLIN;P ROAIR) 108 (90 Base) MCG/ACT inhaler Inhale 2 puffs by mouth every 6 hours as needed for Shortness of Breath aspirin EC (ECOTRIN) 81 MG tablet Take 81 mg by mouth once daily collagenase (SANTYL) 250 UNIT/GM ointment Apply to affected area once daily 05/29/2020 dilTIAZem ER 24hr (TIADYLT ER) 240 MG capsule Take 240 mg by mouth once daily DULoxetine HCl 40 MG Take 40 mg by mouth once daily furosemide (LASIX) 40 MG tablet Take 40 mg by mouth once daily gabapentin (NEURONTIN) 300 MG capsule Take 300 mg by mouth 4 times daily HYDROcodone-acetamino phen (NORCO) 7.5-325 MG tablet Take 1 tablet by mouth every 6 hours as needed for Pain insulin aspart (NOVOLOG) pen Inject 0 (zero) Units to 12 (twelve) Units subcutaneously 3 times daily with meals Per sliding scale 05/29/2020 insulin glargine (LANTUS) pen Inject 30 (thirty) Units subcutaneously once daily 05/30/2020 levothyroxine (SYNTHROID) 100 MCG tablet Take 100 mcg by mouth daily before breakfast lisinopril (PRINIVIL; ZESTRIL) 40 MG tablet Take 40 mg by mouth once daily loratadine (CLARITIN) 10 MG tablet Take 10 mg by mouth once daily metFORMIN (GLUCOPHAGE) 1000 MG tablet Take 1,000 mg by mouth 2 times daily with morning and evening meal multivitamin daily tablet Take 1 tablet by mouth daily with food mupirocin (BACTROBAN) 2 % ointment Apply to affected area once daily 05/29/2020 omeprazole EC (PRILOSEC OTC) 20 MG tablet Take 20 mg by mouth daily before breakfast pravastatin (PRAVACHOL) 40 MG tablet Take 40 mg by mouth at bedtime traZODone (DESYREL) 50 MG tablet Take 150 mg by mouth at bedtime cefTRIAXone 2 g 2,000 mg in 0.9% NaCl IV 0.9 % 50 mL 2,000 (two thousand) mg by Intravenous route every 24 hours for 36 days 05/30/2020 07/05/2020 documented as of this encounter Progress Notes * Marycruz Martinez RN - 05/29/2020 4:04 PM CDT Report to Marco Antonio at [facility]. * Oscar Muhammad, OT - 05/29/2020 3:18 PM CDT Occupational Therapy Treatment Summary Chart reviewed for diagnosis and medical systems review. Nursing consented for OT. PPE worn by staff: mask - surgical;goggles;face shield;N95 mask;gloves. Explained purpose of OT and patient consented to participate in therapy. Precautions: Falls / Safety / Cognitive SUBJECTIVE: Consent to therapy Pt stated When am I getting out of here? , I was having some falls at home man. Psychosocial: Patient Behaviors: Cooperative;Calm;Verbal Family Behaviors: Not Present Pt's goal for therapy: ADL's, Self Cares, Balance, Transfers, Strengthening. OBJECTIVE: Pain Assessment: Increased to 4of 10 pain scale with activity. Pain Rating Score #: 0 Cognition: Orientation Level: Oriented X4 Level of Consciousness-Adult: Alert Cognition: Follows Commands-Consistent;Attention/concentration-normal for age;Judgement-decreased;Safety awareness-decreased;Processing-Appropriate Attention Span: Appears intact Functional Mobility: Bed Mobility: Supine to Sit: Minimal Assistance;Moderate Assistance Sit to Supine: Moderate Assistance Balance: Sitting - Static: Poor +;With Both Upper Extremity's Support Sitting - Dynamic: Poor ADL Tasks: (Through clinical assessment, observation and professional judgement) Oral Facial Hygiene: Set-up;Stand By Assist Lower Body Dressing: Maximal Assistance(slipper socks) Toileting: Total Assistance Activity Tolerance/Vital Signs: Activity Tolerance: Requires rest breaks SpO2: 95 % Pulse: 79 Resp: 18 ASSESSMENT: The patient was laying in bed with HOB elevated upon therapist entering room to complete OT treatment session. Patient was agreeable to participate. Required moderate verbal/visual instructions and encouragement to actively participate with ADL's, bed mobility, sitting balance at EOB. Reeducated patient on compensatory techniques to maximize LOF with ADL's while implementing (self pacing, energy conservation) techniques. Demonstrated poor grade with sitting balance at EOB with support. Patientsability to participate in self- care/functional mobility in traditional remains decreased. Pt had nofurther questions and/or concerns at completion of today's OT intervention. Pt was alert, cooperative and motivated for therapy. Call light and phone in reach with bed alarm activated, HOB elevated, bed lowered to floor, tray table placed upon departure. All lines, monitors, IV's, equipment in place and intact pre and post visit. RN, notified of patient's performance/location end of session. Reeducated patient on benefits of additional OT services following DC from acute care. Please refer to the Filed Flowsheet OT Treatment for further details. Refer to care plan for goals. RECOMMENDATIONS/PLAN: Discharge Equipment Recommendations: Wheeled Walker(for home following SNF stay) OT Discharge Recommendations: Shelter Facility;Home Health OT;Inpatient Rehab Transportation: TBD If this is the last Occupational Therapy visit, this serves as the discharge summary. OT x [phone] * Marycruz Martinez RN - 05/29/2020 3:04 PM CDT Problem: Fall Risk Goal: Fall risk and fall related injury risk are minimized (interventions related to the fall risk can be found in the flowsheet documentation) Outcome: Adequate for Discharge Problem: Glycemia Imbalance Goal: Clinical indication of glycemia balance is achieved Outcome: Adequate for Discharge Goal: Continuum of care needs are met for Glycemic Management Outcome: Adequate for Discharge Problem: Skin Integrity Goal: Skin integrity is maintained or improved Outcome: Adequate for Discharge Problem: Tissue injury due to various disease processes Goal: Provide optimal wound healing environment Outcome: Adequate for Discharge Problem: Tissue Injury Due to Loss of Protective Sensation Goal: Protect Injured Tissue and Prevent Further Injury Outcome: Adequate for Discharge Problem: Tissue Injury Due to External Forces of Pressure, Friction, and Shear Goal: Maintain and Improve Tissue Tolerance to Pressure Outcome: Adequate for Discharge Problem: Pain/Discomfort Goal: Patient exhibits reduced pain/discomfort as evidenced by pain scores Outcome: Adequate for Discharge Goal: Patient uses pharmacological and non-pharmacological pain management strategies. Outcome: Adequate for Discharge Goal: Patient verbalizes acceptable level of pain relief and ability to engage in desired activity. Outcome: Adequate for Discharge Problem: Discharge Planning Goal: Patient's continuum of care needs are met Outcome: Adequate for Discharge Problem: Nutrient: Increased nutrient needs (specify) Description: Nutrition Care Process (1) Nutrition Diagnostic Statement: Increased nutrient needs related to:: increased demands for wound healing as evidenced by:: delayed wound healing Goal: Intake percent from meals/snacks for this admission will be greater than: (specify) Description: [place] Nutrition Goal: Intake percent from meals/snacks for this admission will be greater than:(75%) Nutrition Goal Timeframe: Throughout stay Outcome: Adequate for Discharge Problem: Mobility Goal: STG - Patient will tolerate ____ repetitions of exercises. Description: 10-20reps Outcome: Adequate for Discharge Problem: Transfers Goal: LTG - Patient will transfer from one surface to another Description: Bed to/from chair MAX A using 2ww Outcome: Adequate for Discharge Goal: STG - Patient to transfer to and from sit to supine Description: SBA Outcome: Adequate for Discharge Goal: STG - Patient will transfer sit to and from stand Description: MIN A Outcome: Adequate for Discharge Goal: STG - Patient maintains weight bearing status during transfers Description: Maintain appropriate light TTWB on L during all transfers Outcome: Adequate for Discharge Problem: ROM/Therapeutic Exercise Goal: STG - Pt will participate in UE therapeutic exercise to increase activity tolerance Description: Using theraband x8 minutes. Outcome: Adequate for Discharge Problem: Dressing lower extremities Goal: LTG - Patient will dress lower body Description: Min A using AE PRN with good safety awareness. Outcome: Adequate for Discharge Problem: Transfers Goal: STG - Patient will perform toilet transfer Description: Mod A, stand pivot transfer while maintaining WB precautions. Outcome: Adequate for Discharge Problem: Toileting Goal: LTG - Patient will complete daily toileting tasks Description: With Min A while maintaining WB precautions Outcome: Adequate for Discharge Problem: Elimination--Bowel Goal: Elimination patterns are normal or improving Outcome: Adequate for Discharge * Eric Smith, PT - 05/29/2020 11:02 AM CDT Physical Therapy Treatment Summary Chart review completed. Nursing consented for PT. Explained purpose of PT and patient consented to participate in therapy. PPE worn by staff: goggles;gloves;mask - surgical Pain Assessment: Pain Rating Score #: 0 OBJECTIVE: Orientation Level: Oriented X4 Precautions: Bed Mobility: Rolling: Activity Does Not Occur Supine to Sit: Minimal Assistance;Moderate Assistance Sit to Supine: Activity Does Not Occur Transfers: Sit to Stand: Maximum Assistance;X 2;Total Assistance Stand to Sit: Maximum Assistance;X 2;Total Assistance Chair to Bed: Activity Does Not Occur Bed to Chair: Activity Does Not Occur Type of Transfer: Mechanical Lift Toilet Transfers: Maximum Assistance;X 2;Total Assistance(with piper steady) Mobility: Distance Ambulated: 0 FEET Ambulation: Level of Assistance: Activity Does Not Occur Weight Bearing Status-LLE: Toe Touch(does not do well maintaining) Weight Bearing Status-RLE: Weight Bearing as Tolerated Weight Bearing Status-LUE: Weight Bearing as Tolerated Weight Bearing Status-RUE: Weight Bearing as Tolerated Balance: Sitting - Static: Good Sitting - Dynamic: Good Activity Tolerance and O2 Requirements: Activity Tolerance: Requires rest breaks O2 DEVICE: Room Air - None ASSESSMENT: Pt agreeable to work with PT at this time. Pt assisted to EOB, assisted to transfer to [facility] with stand pivot, in an attempt to maintain TTWB better during transfer. Pt to [facility], has [facility] STALL[employer] to room to assist. Pt stands at piper steady, unable to maintain TTWB. Cleaned and transferred to bed with piper steady. Call light and phone in reach with bed alarm activated. All lines, monitors, IV's, equipment in place and intact pre and post visit. Princess TRUJILLO, notified of patient's performance/location end of session. Pt educated in PT plan of care, fall precautions, and benefits of OOB activity. PT Daphne Rodarte, present to assist throughout the session. Please refer to the Filed Flowsheet for further details. Refer to Plan of Care for PT goals. RECOMMENDATIONS/PLAN: Continue per POC. PT Discharge Recommendations: Shelter Facility;24 Hour Care Recommended Transportation Method: Stretcher/Ambulance If this is the last Physical Therapy visit, this note serves as the discharge summary. [id number] * Torrie Roman, DREW - 05/29/2020 11:01 AM CDT Facility Transfer Note Final Per christofer Greene possible discharge is anticipated for today. MD to see and decide when stable. Christofer Greene is pursuing Auth. See cm note for updates. Once Auth rcd.Covid test done not detected , and discharge orders written, discharge can be coordinated @ that time. Per fac pt MUST be in bldg before midnight. Ss assisted nrsg with completion of pcs/ amb form under letters sect, and faxed to [facility] headquarters with face sheet. Nrsg to please obtain pcs form and face sheet to provide to [facility] dispatch upon arrival. Covid test ordered and nrsg to obtain. 2:40 Auth rcd per christofer Greene. Ss checked with Radha @ [facility] she has Auth and pt oked to transfer. Fac aware Covid test results were sent to fac/ back and not detected and Rn arranging own ambul. Nrsg please arrange amb to fac. Rn Katelyn aware and to coordinate. Level of Care: Skilled Rehab Payor Source: Managed Care Plan Facility Name: (include name of person confirming admission): per pt/ fam (spouse ) request, pt. jessicafer to [facility]. Per Radha with admissions @ [facility], pt. ok to transfer today once Auth rcd, and Covid test done. Pt will go to room : [facility]. [place] Made Aware of Special Needs (if applicable): fac aware pt will need iv antibxs for 6 weeks/ ableto accommodate. Per christofer Greene update pt will not need a wound vac, fac updated. RN Call Report to: [phone] RN Fax D/C Orders to: [phone] Transportation: Amb recommended per staff update. Transport recommendations appreciated. Certificate of Medical Necessity rationale: Pt. admitted with necrotic left heel, cellulitis/ osteomyelitis, pt is TTWB on right LE, pt requires total assist/max assist x2 with daphne steady for transfers, pt is alert, is 5'11 337 lbs. Per staff pt is unable to transfer via w/c or car. Date/time of transfer: ? today/ see above. MD to see. Accepting MD: Dr Misael Nobles Completed and Signed [id number] (if applicable): to be sent to [facility], and copy retained for chart. Family/Other Notified of Transfer (name/phone): spouse Yumiko @ [phone], pt/fam ok with discharge once orders written and request transfer to [facility]. Ss spoke with pt and pt aware MD with orders for today and pt ok with discharge today and also wants transfer to [facility]. Authorization Skilled Care: Ramona pursuing snf Auth. See cm note for updates. / Auth rcd per epicis : [id number]. Authorization for Transportation: no Auth required per cm per insurance. Pt. with [employer]. Comments: nrsg to please send fac orders,chart, and discharge summary. DREW Brownlee ext. [phone] ss spoke with christofer Greene and Emma Zepeda @ [facility] [phone].. * Ramona Cuellar RN - 05/29/2020 10:58 AM CDT [employer] auth submitted for [facility] SNF auth #[id number]. Please refer to Torrie's note for details. Covid test resulted neg. Ramona TRUJILLO, CM [phone] * Chidi Madrigal DO - 05/29/2020 9:02 AM CDT INFECTIOUS DISEASES PROGRESS NOTE Name: Taye Marrero Age: [age] year old Sex: male Attending: Carroll Briseno MD Consulting: Chidi Madrigal DO Admit Date: 05/23/2020 1:09 AM Hospital Day: 6 Hospital course S/p PICC placement Aware of plans for SNF on discharge afebrile VITALS: BP 153/95 Pulse 77 Temp 98.1 ??F (36.7 ??C) (Oral) Resp 20 Ht 1.803 m (5' 11 ) Wt 153 kg (337 lb 4.9 oz) SpO2 93% BMI 47.04 kg/m2 EXAM: General appearance: AOx3, NAD, obese HEAD/ENT: ENT exam normal, no neck nodes or sinus tenderness Neck: normal, supple and no adenopathy Lungs: breath sounds normal and symmetric; no rales or wheezes Heart: regular rhythm, normal S1 and S2, without murmurs, gallops or rubs Abdomen: soft without mass, non-tender, with normal bowel sounds Extremities: left heel ulcer with necrotic change and malodor. Chronic venous stasis changes of bilateral LE MEDICATIONS FOR CURRENT ENCOUNTER: SCHEDULED MEDICATIONS: ??? 0.9% NaCl injection 3 mL, Intracatheter, q8h ??? aspirin chew tablet 81 mg, Oral, QDAY ??? cefTRIAXone (Rocephin) 2,000 mg in 0.9% NaCl IV 50 mL IVPB, Intravenous, q24h ??? collagenase (Santyl) ointment, Topical, QDAY ??? dilTIAZem coated beads 24hr (Cardizem Cd) capsule 240 mg, Oral, QDAY ??? docusate sodium (Colace) capsule 100 mg, Oral, BID ??? DULoxetine (Cymbalta) capsule 40 mg, Oral, QDAY ??? enoxaparin (Lovenox) injection 40 mg, Subcutaneous, BID ??? famotidine (Pepcid) tablet 20 mg, Oral, BID ??? furosemide (Lasix) injection 40 mg, Intravenous, BID ??? gabapentin (Neurontin) capsule 300 mg, Oral, TID ??? insulin aspart (NovoLOG) pen 0-12 Units, Subcutaneous, TID WC ??? insulin aspart (NovoLOG) pen 10 Units, Subcutaneous, TID WC ??? insulin glargine (Lantus) pen 25 Units, Subcutaneous, QDAY ??? levothyroxine (Synthroid) tablet 100 mcg, Oral, QDAY BEFORE BREAKFAST ??? lidocaine PF (Xylocaine Mpf) 1 % injection, Infiltration, intra-Procedure multiple ??? lisinopril (Prinivil; Zestril) tablet 40 mg, Oral, QDAY ??? loratadine (Claritin) tablet 10 mg, Oral, QDAY ??? mupirocin (Bactroban) 2 % ointment, Topical, QDAY ??? pravastatin (Pravachol) tablet 40 mg, Oral, AT BEDTIME ? traZODone (Desyrel) tablet 150 mg, Oral, AT BEDTIME CONTINUOUS MEDICATIONS: ? 0.9% NaCl flush bag, Intravenous, CONTINUOUS PRN PRN MEDICATIONS: ??? 0.9% NaCl flush bag, Intravenous, CONTINUOUS PRN ??? 0.9% NaCl injection 1-10 mL, Intracatheter, PRN ??? albuterol HFA (Proventil;Ventolin;Proair) 108 (90 Base) MCG/ACT inhaler 2 puff, Inhalation, q6hPRN ??? dextrose IV 12.5-25 g, Intravenous, PRN ??? glucagon (Glucagen) injection 1 mg, Intramuscular, PRN ??? glucose (Diabetic Use) (Dex4 Glucose) oral liquid, Oral, PRN ??? glucose (Diabetic Use) oral gel, Oral, PRN ??? HYDROcodone-acetaminophen (Birchwood) 5-325 MG tablet 1 tablet, Oral, q4h PRN ??? morphine injection 2 mg, Intravenous, q3h PRN ??? ondansetron (disintegrating) (Zofran ODT) tablet 4 mg, Oral, q6h PRN ??? ondansetron (Zofran) injection 4 mg, Intravenous, q6h PRN ??? polyethylene glycol 3350 (Miralax) packet 17 g, Oral, QDAY PRN ?? Or LABS: Recent Labs Component Name 05/29/20 03305/26/20 0458 05/23/20 0506 WBC 8.9 10.5 9.8 HGB 14.8 14.1 13.8 HCT 49.2 46.5 44.1 PLTCOUNT 356 302 273 Recent Labs Component Name 05/29/20 0337 05/26/20 0458 05/25/20 0348 SODIUM 136 134* 135* POTASSIUM 3.9 5.0 3.7 CHLORIDE 97* 100 100 CO2 31 28 26 BUN 19 18 12 CREATININE 1.07 1.11 0.85 GLUCOSE 260* 345* 174* CALCIUM 10.3 9.7 10.0 Recent Labs Component Name 05/23/20 0506 INR 1.2* No results for input(s): PTT in the last 42183 hours. IMAGING: IMPRESSION ?? No evidence of fracture or malalignment. No cortical bone irregularity identified. Large posterior plantar ulcer of 5 cm. 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 [facility] to pursue Auth with insurance once pt/fam ok transfer fac. @ this time. Pt/fam requesting referrals to below facilities and want to wait to make a decision until all facilities have assessed. Ss spoke with Radha @ [facility] and she will advise once fac. with final decision, and left for Alejandra with [facility] as not available @ time of ss call. Ss awaiting rtn calls. Once rtn calls rcd, f/u can then be done again with pt/fam to discuss. Pt can NOT discharge until fac with approval with an available bed, pt/fam chose fac, discharge orders written, Covid guidelines met, and Auth rcd. Referrals initiated: Continued Care and Services - Admitted Since 05/23/2020 Destination Service Provider Request Status Selected Services Address Phone Fax Patient Preferred [facility] Accepted N[facility] [address] [facility] [facility] [id number] -- [facility] Accepted- per Radha once Auth rcd: NPI for fac is [id number]/ assigned will be Dr. Misael Nobles - pt Must have Covid test done not older than 72 hours old and MUST be in bldg before midnight. N[facility] [address] [facility] [id number] -- [facility] Denied unable to meet pts needs. N/A [address] [facility] [address] [phone] -- Comments:@ discharge nrsg to please send fac orders,chart and discharge summary. Covid guidelines for fac with approval MUST be met prior to transfer. Ss updated pts spouse re: above and @ time of discharge pt;/fam requesting transfer to [facility]. Ss updated Ramona jaffe. She will pursue Auth. Once Auth rcd and discharge orders written discharge can be coordinated @ that time. Ss updated pts Rn Katelyn @ [phone]. Orders in for Covid test per fac Request, nrsg aware and to obtain. Name: DREW Brownlee Phone: [phone] * Marycruz Martinez RN - 05/28/2020 8:20 PM CDT Problem: Fall Risk Goal: Fall risk and fall related injury risk are minimized (interventions related to the fall risk can be found in the flowsheet documentation) Outcome: Progressing Problem: Glycemia Imbalance Goal: Clinical indication of glycemia balance is achieved Outcome: Progressing Goal: Continuum of care needs are met for Glycemic Management Outcome: Progressing Problem: Skin Integrity Goal: Skin integrity is maintained or improved Outcome: Progressing Problem: Tissue injury due to various disease processes Goal: Provide optimal wound healing environment Outcome: Progressing Problem: Tissue Injury Due to Loss of Protective Sensation Goal: Protect Injured Tissue and Prevent Further Injury Outcome: Progressing Problem: Tissue Injury Due to External Forces of Pressure, Friction, and Shear Goal: Maintain and Improve Tissue Tolerance to Pressure Outcome: Progressing Problem: Pain/Discomfort Goal: Patient exhibits reduced pain/discomfort as evidenced by pain scores Outcome: Progressing Goal: Patient uses pharmacological and non-pharmacological pain management strategies. Outcome: Progressing Goal: Patient verbalizes acceptable level of pain relief and ability to engage in desired activity. Outcome: Progressing Problem: Discharge Planning Goal: Patient's continuum of care needs are met Outcome: Progressing Problem: Nutrient: Increased nutrient needs (specify) Description: Nutrition Care Process (1) Nutrition Diagnostic Statement: Increased nutrient needs related to:: increased demands for wound healing as evidenced by:: delayed wound healing Goal: Intake percent from meals/snacks for this admission will be greater than: (specify) Description: Taye'asmita Nutrition Goal: Intake percent from meals/snacks for this admission will be greater than:(75%) Nutrition Goal Timeframe: Throughout stay Outcome: Progressing Problem: Elimination--Bowel Goal: Elimination patterns are normal or improving Outcome: Progressing * Bobby Doyle MD - 05/28/2020 2:43 PM CDT Daily Progress Note Taye Marrero 05/27/2020 12:30 PM Hospital Day: 5 Clinical Course Overall patient has slightly improved since my last note. New Symptoms Up in chair, no acute events overnight. Patient denies chest pain, shortness of breath, abdominal pain, nausea, vomiting, diarrhea, constipation, urinary proble Objective Height: 180.3 cm (5' 11 ) Body mass index is 47.04 kg/m??. Unable to calculate weight change. Weight: (!) 153 kg (337 lb 4.9 oz) Exam Physical Exam Vitals signs and nursing note reviewed. Constitutional: Appearance: Normal appearance. HENT: Head: Normocephalic and atraumatic. Cardiovascular: Rate and Rhythm: Normal rate and regular rhythm. Pulses: Normal pulses. Heart sounds: Normal heart sounds. No murmur. Pulmonary: Effort: Pulmonary effort is normal. Breath sounds: Normal breath sounds. Abdominal: General: Abdomen is flat. Bowel sounds are normal. There is no distension. Palpations: Abdomen is soft. Tenderness: There is no abdominal tenderness. There is no guarding. Musculoskeletal: Left heel ulcer with necrotic change and malodor. Chronic venous stasis changes of bilateral LE Neurological: General: No focal deficit present. Mental Status: He is alert and oriented to person, place, and time. Lab/Other Information Data Vitals Signs and Current Lab Results have been reviewed. Hospital Problems * Open wound of left heel Had debridement done by Podiatry on May 25. ID suspicious for calcaneal osteomyelitis. Patient on Ceftriaxone. Wound culture shows moderate streptococcus constellatus Streptococcus anginosus, Proteus vulgaris and light staphylococcus Ceftriaxone 2g IV q24 hours for calcaneal osteomyelitis x 6 weeks, planned end date 07/05/20 PICC today ID following ?? Type 2 diabetes mellitus with hyperglycemia He is on glycemic management protocol and will need his lantus increased for better glycemic control HTN On cardizem and lisinopril Hypothyroidism On levothyroxine ?? Morbid obesity Will need to be counseled on weight management as an out patient DVT prophylaixis On lovenox updated at bedside Bobby Doyle MD * Torrie Roman MSW - 05/28/2020 11:01 AM CDT Cm following pt since admit. Pt initially planned to rtn home. Ss rcd a consult today from pts christofer Greene re:pts. hospitalization and request for snf plcmnt. Per cm pt/fam interested in [facility] location. Ss with call out to Mariah Lewis with [facility] as pt has [employer] insurance and will need to transfer to an [employer] fac @ time of discharge. Mariah to assist with contracted fac options in facilities near pts hme. Assist appreciated. Once with options ss to make referrals. Pt can NOTtransfer until fac identified with an available bed and approval. Covid guidelines for fac MUST be met and pt WILL need an Auth. [facility] Christofer Greene to obtain prior to transfer. Additional info to follow. Torrie, ACCESS NURSE ext. [phone]. Rtn call rcd from Mariah Lewis, assist appreciated. Ss was able to talk with pt and [place] resources were discussed. New Facility Placement Referral source: christofer Greene Date of referral:rcd today 05/28 Admitted from: hme Special Needs: Covid guidelines for fac with approval will need to be met @ discharge. Patient Goal (short term and long term acute care registered nurse): short term snf/ long term acute care registered nurse hme. Level of Care (SNF/Medicaid NH/Rehab/Software Developer Intern Care/LTACH): snf requested Spoke with (Phone number, if not patient. Family participation encouraged): Cm spoke with pt and spouse and both requesting snf. Ss spoke with pt and pt agreeable to snf and requests below referrals to : 1. [facility] 2.[facility] 3. [facility] in [facility]- rtn call rcd from Christina @ [phone] and per admissions,fac is able to accommodate new admit, has an available bed, Sreekanth Fonseca would be assigned/npi for fac is : [phone], fac does not have MD NPI..- ss updated pt. ,and pt asking to talk withhis spouse first wants to see also if the other facilites will accept him as well. Per his request ss updated pts spouse Mrs. Yumiko Marrero @ [phone]. - she plans to look up [facility]. Ss providedthis workers contact info for rtn call. Ss awaiting rtn call from spouse. referrals made per request, facilites to assess if with beds and ss awaiting rtn calls. Once rtn calls rcd, f/u is planned with pt/fam. Family Contacted: Yes List of facilities provided (within patient geographic preference): Yes cm provided to fam /pt. Referrals initiated: Continued Care and Services - Admitted Since 05/23/2020 Destination Service Provider Request Status Selected Services Address Phone Fax Patient Preferred [facility] Pending - Request Sent N/A [address] [facility] [address] [facility] [address] [phone] -- [facility] Pending - Request Sent N/A [address] [facility] [address] [facility] [address] [phone] -- [facility] Pt was approved. N/A [address] [place] [address] -- If Medicare-3 day qualifying stay verified: pt has [employer]. Will need an Auth to transfer to any snf. monitoring facility responses Comments:@ discharge if to snf nrsg to please send fac orders,chart, and discharge summary. Name: DREW Brownlee Phone: [phone] updated christofer Greene * Evelyne Weston OT - 05/28/2020 10:59 AM CDT Occupational Therapy Treatment Summary Chart reviewed for history of presenting illness, diagnosis and medical history Nursing consented for OT. PPE worn by staff: mask - surgical;;face shield;gloves. Explained purpose of OT and patient consented to participate in therapy. Precautions: Falls / Safety SUBJECTIVE: Consent to therapy Pt stated You are back again? . In reference to therapy coming back Psychosocial: Patient Behaviors: Anxious;Cooperative, agitated Pt's goal for therapy: ADL's, Self Cares, Balance, Transfers, Strengthening. OBJECTIVE: Pain Assessment: Pain Rating Score #: 0 Cognition: Orientation Level: Oriented X4 Level of Consciousness-Adult: Alert Cognition: Follows Commands-inconsistent;Processing-delayed;Safety awareness-decreased Attention Span: Difficulty attending to directions Weight Bearing Status: TTWB LLUE Functional Mobility: Bed Mobility: Sit to Supine: X 2;Moderate Assistance Transfers: Sit to Stand: Activity Does Not Occur Stand to Sit: Activity Does Not Occur Chair to Bed: Maximum Assistance to Left;X 2 Type of Transfer: Sliding Board Transfer Balance: Sitting - Static: Poor + ADL Tasks: (Through clinical assessment, observation and professional judgement) Oral Facial Hygiene: Set-up;Supervision(in seated) Toileting: Total Assistance Activity Tolerance/Vital Signs: Requires Rest Breaks following activity ASSESSMENT: Patient found seated in wheelchair at bedside upon therapist entering room to complete OT session. Patient initially resistant to participate but agreeable to getting back to bed. Required maximal verbal and visual cues and frequent encouragement to participate in ADL's, bed mobility, sitting balance and transfers using slide baord and gait belt. Patient's ability to participate in self-care tasks and functional mobility at baseline LOF remains decreased. Pt had no further questions and/or concerns at completion of OT treatment. Pt was alert but agitated and demonstrated decreased safety awareness. Patient left in bed with call light and phone in reach, bed alarm activated, HOB elevated, bed lowered to floor, and patient being taken off floor for PICC placement following session. All lines, monitors, IV's, equipment in place and intact pre and post visit. Princess TRUJILLO, notified of patient's performance/location end of session. Educated patient with benefits of additional OT services following DC from acute care. RECOMMENDATIONS/PLAN: Discharge Equipment Recommendations: To Be Determined OT Discharge Recommendations: Inpatient Rehab;Shelter Facility Transportation: Ambulance/ stretcher If this is the last Occupational Therapy visit, this serves as the discharge summary. OT x [phone] * Ramona Cuellar RN - 05/28/2020 10:54 AM CDT Pt worked with therapies over the weekend and did poorly. Spoke to pt and spouse this am regarding discharge plan. Both are agreeable to SNF. Pt wants to return to [facility] in [place]. where he's been previously however, this is an alcohol detox program. Pt needs PT/OT and 6 weeks of IV ABX. They are agreeable to SNF referrals in [place], [place]. They didn't know of any specific SNF facilities located there. Referred to DREW Brownlee. Pt to get PICC line then will be medically ready for discharge. Will require [employer] auth. Ramona RN, CM [phone] * Chidi Madrigal DO - 05/28/2020 10:09 AM CDT INFECTIOUS DISEASES PROGRESS NOTE Name: Taye Marrero Age: [age] year old Sex: male Attending: Bobby Doyle MD Consulting: Chidi Madrigal DO Admit Date: 05/23/2020 1:09 AM Hospital Day: 5 Hospital course Up in chair- very confused about discharge plan Afebrile No rash or diarrhea REVIEWED PLAN FOR picc AND DISCHARGE ANTIBIOTICS VITALS: BP 160/103 Pulse 61 Temp 97.6 ??F (36.4 ??C) (Oral) Resp 20 Ht 1.803 m (5' 11 ) Wt 153 kg (337 lb 4.9 oz) SpO2 95% BMI 47.04 kg/m2 EXAM: General appearance: AOx3, NAD, obese HEAD/ENT: ENT exam normal, no neck nodes or sinus tenderness Neck: normal, supple and no adenopathy Lungs: breath sounds normal and symmetric; no rales or wheezes Heart: regular rhythm, normal S1 and S2, without murmurs, gallops or rubs Abdomen: soft without mass, non-tender, with normal bowel sounds Extremities: left heel ulcer with necrotic change and malodor. Chronic venous stasis changes of bilateral LE MEDICATIONS FOR CURRENT ENCOUNTER: SCHEDULED MEDICATIONS: ??? 0.9% NaCl injection 3 mL, Intracatheter, q8h ??? aspirin chew tablet 81 mg, Oral, QDAY ??? cefTRIAXone (Rocephin) 2,000 mg in 0.9% NaCl IV 50 mL IVPB, Intravenous, q24h ??? collagenase (Santyl) ointment, Topical, QDAY ??? dilTIAZem coated beads 24hr (Cardizem Cd) capsule 240 mg, Oral, QDAY ??? DULoxetine (Cymbalta) capsule 40 mg, Oral, QDAY ??? enoxaparin (Lovenox) injection 40 mg, Subcutaneous, BID ??? famotidine (Pepcid) tablet 20 mg, Oral, BID ??? furosemide (Lasix) injection 40 mg, Intravenous, BID ??? gabapentin (Neurontin) capsule 300 mg, Oral, TID ??? insulin aspart (NovoLOG) pen 0-12 Units, Subcutaneous, TID WC ??? insulin aspart (NovoLOG) pen 10 Units, Subcutaneous, TID WC ??? insulin glargine (Lantus) pen 25 Units, Subcutaneous, QDAY ??? levothyroxine (Synthroid) tablet 100 mcg, Oral, QDAY BEFORE BREAKFAST ??? lisinopril (Prinivil; Zestril) tablet 40 mg, Oral, QDAY ??? loratadine (Claritin) tablet 10 mg, Oral, QDAY ??? mupirocin (Bactroban) 2 % ointment, Topical, QDAY ??? pravastatin (Pravachol) tablet 40 mg, Oral, AT BEDTIME ? traZODone (Desyrel) tablet 150 mg, Oral, AT BEDTIME ?? CONTINUOUS MEDICATIONS: PRN MEDICATIONS: ??? 0.9% NaCl injection 1-10 mL, Intracatheter, PRN ??? albuterol HFA (Proventil;Ventolin;Proair) 108 (90 Base) MCG/ACT inhaler 2 puff, Inhalation, q6hPRN ??? dextrose IV 12.5-25 g, Intravenous, PRN ??? glucagon (Glucagen) injection 1 mg, Intramuscular, PRN ??? glucose (Diabetic Use) (Dex4 Glucose) oral liquid, Oral, PRN ??? glucose (Diabetic Use) oral gel, Oral, PRN ??? HYDROcodone-acetaminophen (Birchwood) 5-325 MG tablet 1 tablet, Oral, q4h PRN ??? morphine injection 2 mg, Intravenous, q3h PRN ??? ondansetron (disintegrating) (Zofran ODT) tablet 4 mg, Oral, q6h PRN ??? ondansetron (Zofran) injection 4 mg, Intravenous, q6h PRN ?? Or LABS: Recent Labs Component Name 05/26/20 0458 05/23/20 0506 WBC 10.5 9.8 HGB 14.1 13.8 HCT 46.5 44.1 PLTCOUNT 302 273 Recent Labs Component Name 05/26/20 0458 05/25/20 0348 05/23/20 0506 SODIUM 134* 135* 134* POTASSIUM 5.0 3.7 4.4 CHLORIDE 100 100 99 CO2 28 26 26 BUN 18 12 14 CREATININE 1.11 0.85 0.86 GLUCOSE 345* 174* 200* CALCIUM 9.7 10.0 9.9 Recent Labs Component Name 05/23/20 0506 INR 1.2* No results for input(s): PTT in the last 12816 hours. IMAGING: IMPRESSION ?? No evidence of fracture or malalignment. No cortical bone irregularity identified. Large posterior plantar ulcer of 5 cm. 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 Nursing consented for PT. Explained purpose of PT and patient consented to participate in therapy. PPE worn by staff: gloves;goggles;mask - surgical Pain Assessment: Pain Rating Score #: 0 OBJECTIVE: Orientation Level: Oriented X4 Precautions: TTWB right LE Bed Mobility: Rolling: Activity Does Not Occur Supine to Sit: Minimal Assistance Sit to Supine: Activity Does Not Occur Transfers: Sit to Stand: Activity Does Not Occur Stand to Sit: Activity Does Not Occur Chair to Bed: Activity Does Not Occur Bed to Chair: Minimal Assistance to Right Type of Transfer: Sliding Board Transfer Mobility: Distance Ambulated: 0 FEET Ambulation: Level of Assistance: Activity Does Not Occur Weight Bearing Status-LLE: Toe Touch Weight Bearing Status-RLE: Weight Bearing as Tolerated Weight Bearing Status-LUE: Weight Bearing as Tolerated Weight Bearing Status-RUE: Weight Bearing as Tolerated Balance: Sitting - Static: Good Sitting - Dynamic: Good Activity Tolerance and O2 Requirements: Activity Tolerance: Requires rest breaks O2 DEVICE: Room Air - None ASSESSMENT: Pt agreeable to work with PT at this time. Pt complains often about PT's advice to try getting up using slide board. Explained to pt many times that he has been a max x 2 with PT and OT over the weekend and that I was trying to find him a safe d/c plan. Pt very adamant that he is not going to snf upon d/c. Pt assisted to EOB after using a purewick. Pt transfers with min assist with sli deboard, but demonstrates very decreased safety awareness and I have concern for him being at an increased fall risk. Ordered pt's breakfast and foot elevated on foot stool. Call light and phone in reach with chair alarm activated. All lines, monitors, IV's, equipment in place and intact pre and post visit. RNPrincess, notified of patient's performance/location end of session. Pt educated in PT plan of care, fall precautions, and benefits of OOB activity. PT jeannette Rodarte, present to assist throughout the session. Please refer to the Filed Flowsheet for further details. Refer to Plan of Care for PT goals. RECOMMENDATIONS/PLAN: Continue per POC. PT Discharge Recommendations: Shelter Facility;Inpatient Rehab Recommended Transportation Method: Stretcher/Ambulance If this is the last Physical Therapy visit, this note serves as the discharge summary. [id number] * Scott Barron RN - 05/28/2020 1:38 AM CDT Problem: Fall Risk Goal: Fall risk and fall related injury risk are minimized (interventions related to the fall risk can be found in the flowsheet documentation) Outcome: Progressing Problem: Glycemia Imbalance Goal: Clinical indication of glycemia balance is achieved Outcome: Not Progressing Goal: Continuum of care needs are met for Glycemic Management Outcome: Not Progressing Problem: Skin Integrity Goal: Skin integrity is maintained or improved Outcome: Progressing Problem: Tissue injury due to various disease processes Goal: Provide optimal wound healing environment Outcome: Progressing Problem: Tissue Injury Due to Loss of Protective Sensation Goal: Protect Injured Tissue and Prevent Further Injury Outcome: Progressing Problem: Tissue Injury Due to External Forces of Pressure, Friction, and Shear Goal: Maintain and Improve Tissue Tolerance to Pressure Outcome: Progressing Problem: Pain/Discomfort Goal: Patient exhibits reduced pain/discomfort as evidenced by pain scores Outcome: Progressing Goal: Patient uses pharmacological and non-pharmacological pain management strategies. Outcome: Progressing Goal: Patient verbalizes acceptable level of pain relief and ability to engage in desired activity. Outcome: Progressing Taye will continue to improve wound status and tissue integrity during hospital stay. He will maintain pain control through pharmacological and non- Pharm means through date of DC. Taye will show improvement of glycemic status during hospital stay. * Chidi Madrigal DO - 05/27/2020 4:19 PM CDT INFECTIOUS DISEASES PROGRESS NOTE Name: Taye Marrero Age: [age] year old Sex: male Attending: Jose Astudillo MD Consulting: Chidi Madrigal DO Admit Date: 05/23/2020 1:09 AM Hospital Day: 4 Hospital course Awake and alert Afebrile No nausea/emesis/diarrhea VITALS: BP 152/104 Pulse 83 Temp 97.6 ??F (36.4 ??C) (Oral) Resp 19 Ht 1.803 m (5' 11 ) Wt 153 kg (337 lb 4.9 oz) SpO2 95% BMI 47.04 kg/m2 EXAM: General appearance: AOx3, NAD, obese HEAD/ENT: ENT exam normal, no neck nodes or sinus tenderness Neck: normal, supple and no adenopathy Lungs: breath sounds normal and symmetric; no rales or wheezes Heart: regular rhythm, normal S1 and S2, without murmurs, gallops or rubs Abdomen: soft without mass, non-tender, with normal bowel sounds Extremities: left heel ulcer with necrotic change and malodor. Chronic venous stasis changes of bilateral LE MEDICATIONS FOR CURRENT ENCOUNTER: SCHEDULED MEDICATIONS: ??? 0.9% NaCl injection 3 mL, Intracatheter, q8h ??? aspirin chew tablet 81 mg, Oral, QDAY ??? cefTRIAXone (Rocephin) 2,000 mg in 0.9% NaCl IV 50 mL IVPB, Intravenous, q24h ??? collagenase (Santyl) ointment, Topical, QDAY ??? dilTIAZem coated beads 24hr (Cardizem Cd) capsule 240 mg, Oral, QDAY ??? DULoxetine (Cymbalta) capsule 40 mg, Oral, QDAY ??? enoxaparin (Lovenox) injection 40 mg, Subcutaneous, BID ??? famotidine (Pepcid) tablet 20 mg, Oral, BID ??? furosemide (Lasix) injection 40 mg, Intravenous, BID ??? gabapentin (Neurontin) capsule 300 mg, Oral, TID ??? insulin aspart (NovoLOG) pen 0-12 Units, Subcutaneous, TID WC ??? insulin aspart (NovoLOG) pen 10 Units, Subcutaneous, TID WC ??? insulin glargine (Lantus) pen 25 Units, Subcutaneous, QDAY ??? levothyroxine (Synthroid) tablet 100 mcg, Oral, QDAY BEFORE BREAKFAST ??? lisinopril (Prinivil; Zestril) tablet 40 mg, Oral, QDAY ??? loratadine (Claritin) tablet 10 mg, Oral, QDAY ??? mupirocin (Bactroban) 2 % ointment, Topical, QDAY ??? pravastatin (Pravachol) tablet 40 mg, Oral, AT BEDTIME ? traZODone (Desyrel) tablet 150 mg, Oral, AT BEDTIME ?? CONTINUOUS MEDICATIONS: PRN MEDICATIONS: ??? 0.9% NaCl injection 1-10 mL, Intracatheter, PRN ??? albuterol HFA (Proventil;Ventolin;Proair) 108 (90 Base) MCG/ACT inhaler 2 puff, Inhalation, q6hPRN ??? dextrose IV 12.5-25 g, Intravenous, PRN ??? glucagon (Glucagen) injection 1 mg, Intramuscular, PRN ??? glucose (Diabetic Use) (Dex4 Glucose) oral liquid, Oral, PRN ??? glucose (Diabetic Use) oral gel, Oral, PRN ??? HYDROcodone-acetaminophen ([place]) 5-325 MG tablet 1 tablet, Oral, q4h PRN ??? morphine injection 2 mg, Intravenous, q3h PRN ??? ondansetron (disintegrating) (Zofran ODT) tablet 4 mg, Oral, q6h PRN ??? ondansetron (Zofran) injection 4 mg, Intravenous, q6h PRN ?? Or LABS: Recent Labs Component Name 05/26/20 0458 05/23/20 0506 WBC 10.5 9.8 HGB 14.1 13.8 HCT 46.5 44.1 PLTCOUNT 302 273 Recent Labs Component Name 05/26/20 0458 05/25/20 0348 05/23/20 0506 SODIUM 134* 135* 134* POTASSIUM 5.0 3.7 4.4 CHLORIDE 100 100 99 CO2 28 26 26 BUN 18 12 14 CREATININE 1.11 0.85 0.86 GLUCOSE 345* 174* 200* CALCIUM 9.7 10.0 9.9 Recent Labs Component Name 05/23/20 0506 INR 1.2* No results for input(s): PTT in the last 26540 hours. IMAGING: IMPRESSION ?? No evidence of fracture or malalignment. No cortical bone irregularity identified. Large posterior plantar ulcer of 5 cm. 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 Chart reviewed for diagnosis and medical systems review. Nursing consented for OT. Explained purpose of OT and patient consented to participate in therapy. Patient s/p L foot excisional ulcer debridement with partial calcanectomy. PMH includes but is not limited to: PPE worn by staff: eye protection;gloves;mask - surgical Precautions: Weight Bearing Status-LLE: Toe Touch Weight Bearing Status-RLE: Weight Bearing as Tolerated Weight Bearing Status-LUE: Weight Bearing as Tolerated Weight Bearing Status-RUE: Weight Bearing as Tolerated SUBJECTIVE: My may get some help for home Psychosocial: Patient Behaviors: Cooperative Occupational Profile/PLOF: Type of Residence: Apartment Lives with:: Spouse Home Structure: One Story Steps to Enter: No Ramp: No Primary Bedroom: First Floor Primary Bathroom: First Floor Bathroom : Tub/Shower Combo Equipment At Home: Chair-Shower;Grab Bars;Walker-2 Wheeled;Wheelchair-Standard Mobility: Ambulate-In Home ;With Assistive Device Fallen Within 6 Mos: 5 Have Help at Home?: Yes, there is help at home now How often is assistance provided?: assists with dressing, bathing, cooking, cleaning Oxygen at Home: No Activity at Home: Sedentary Who manages medications?: Vision: Significant impairment in the right eye Hearing Exceptions: Hearing concerns;Other (comments)(hearing aids at home) Cognition: Orientation Level: Oriented to Person;Oriented to Place;Oriented to Situation;Disoriented to Time Level of Consciousness-Adult: Alert Cognition: Judgement-decreased Pain Assessment: Pain Rating Score #: (does not rate) Pain Location : Foot Pain Orientation: Left RUE Assessment: AROM - Right Upper Extremity: Within Functional Limits LUE Assessment: AROM - Left Upper Extremity: Within Functional Limits Basic ADL's: Feeding: Set-up Lower Body Dressing: Maximal Assistance Toileting: Total Assistance Functional Mobility: Bed Mobility: Rolling: Moderate Assistance to Right;Moderate Assistance to Left Supine to Sit: Moderate Assistance Sit to Supine: Moderate Assistance Transfers: Sit to Stand: Maximum Assistance;X 2;Requires Verbal Cues for Safety;Requires Verbal Cues for Technique Stand to Sit: Maximum Assistance;X 2;Requires Verbal Cues for Safety;Requires Verbal Cues for Technique Vitals: Activity Tolerance: Requires rest breaks ASSESSMENT: Patient in bed upon arrival, agreeable to therapy. Patient pleasant and cooperative, slightly confused. Demonstrated decreased processing and insight into situation. Patient able to statehis WB precautions on his L foot, however has difficulty maintaining them when in bed or attemptingto stand. Patient required total A for utilizing urinal while in bed. Patient able to complete bed mobility with mod A utilizing the bed rail and HOB elevated. Patient demonstrates good static sitting balance. Required max A for LB dressing in seated. Attempted to stand x2. First attempt, patient unable to clear his buttocks from the bed. Second attempt, patient ableto clear his buttocks and come to almost full standing, however he was putting a significant amountof weight through L foot. Immediately sat patient down as it was unsafe and he was unable to take weight off of his L foot. Assisted patient back to bed with mod A. All needs in reach. Call light and phone in reach with bed alarm activated. All lines, monitors, IV's, equipment in place and intact pre and post visit. RNMisael, notified of patient's performance/location end of session. Painter [place] Dawna, present to assist throughout the session. Educated patient/family in purpose of OT Problem list: Decreased strength, decreased ROM, decreased endurance, decreased balance, impaired functional mobility, decreased coordination, impaired safety awareness, cognitive impairment, impaired cardiopulmonary function, decreased knowledge of condition, decreased pain tolerance, need for family/caregiver training Functional limitation: Decreased independence with transfers; decreased ability to perform ADLs, decreased UE strength, decreased safety with functional mobility. Rationale for therapy: Patient will benefit from OT to address the above issues. Patient will be seen for: ADL retraining, functional transfers, balance, endurance, exercise. Refer to Plan of Care for OT goals. Refer to filed flow sheet for further details. RECOMMENDATIONS/PLAN: OT Discharge Recommendations: Inpatient Rehab;Shelter Facility If this is the last Occupational Therapy visit, this serves as the discharge summary. [phone] * Jose Astudillo MD - 05/27/2020 12:30 PM CDT Daily Progress Note Taye Marrero 05/27/2020 12:30 PM Hospital Day: 4 Clinical Course Overall patient has slightly improved since my last note. New Symptoms Patient denies chest pain, shortness of breath, abdominal pain, nausea, vomiting, diarrhea, constipation, urinary problems or leg pain. Objective Height: 180.3 cm (5' 11 ) Body mass index is 47.04 kg/m??. Unable to calculate weight change. Weight: (!) 153 kg (337 lb 4.9 oz) Exam Physical Exam Vitals signs and nursing note reviewed. Constitutional: Appearance: Normal appearance. HENT: Head: Normocephalic and atraumatic. Cardiovascular: Rate and Rhythm: Normal rate and regular rhythm. Pulses: Normal pulses. Heart sounds: Normal heart sounds. No murmur. Pulmonary: Effort: Pulmonary effort is normal. Breath sounds: Normal breath sounds. Abdominal: General: Abdomen is flat. Bowel sounds are normal. There is no distension. Palpations: Abdomen is soft. Tenderness: There is no abdominal tenderness. There is no guarding. Musculoskeletal: Right lower leg: No edema. Left lower leg: No edema. Neurological: General: No focal deficit present. Mental Status: He is alert and oriented to person, place, and time. Lab/Other Information Data Vitals Signs and Current Lab Results have been reviewed. Hospital Problems * Open wound of left heel Had debridement done by Podiatry on May 25. ID suspicious for calcaneal osteomyelitis. Patient on Ceftriaxone. Wound culture shows moderate streptococcus constellatus Streptococcus anginosus, Proteus vulgaris and light staphylococcus Will defer antibiotics to ID. Is doing better Cellulitis of left heel On ceftriaxone and anticipate she will be on it for 6 weeks Type 2 diabetes mellitus with hyperglycemia He is on glycemic management protocol and will need his lantus increased for better glycemic control Morbid obesity Will need to be counseled on weight management as an out patient Home tomorrow after PICC With Home Health Jose Astudillo MD * Scott Barron RN - 05/27/2020 3:30 AM CDT Problem: Fall Risk Goal: Fall risk and fall related injury risk are minimized (interventions related to the fall risk can be found in the flowsheet documentation) Outcome: Progressing Problem: Glycemia Imbalance Goal: Clinical indication of glycemia balance is achieved Outcome: Not Progressing Goal: Continuum of care needs are met for Glycemic Management Outcome: Progressing Problem: Skin Integrity Goal: Skin integrity is maintained or improved Outcome: Progressing Problem: Pain/Discomfort Goal: Patient exhibits reduced pain/discomfort as evidenced by pain scores Outcome: Progressing Goal: Patient uses pharmacological and non-pharmacological pain management strategies. Outcome: Progressing Goal: Patient verbalizes acceptable level of pain relief and ability to engage in desired activity. Outcome: Progressing * Jose Astudillo MD - 05/26/2020 3:21 PM CDT Images from the original note were not included. Daily Progress Note Taye Marrero 05/26/2020 3:21 PM Hospital Day: 3 Clinical Course Overall patient has improved since my last note. New Symptoms Patient denies chest pain, shortness of breath, abdominal pain, nausea, vomiting, diarrhea, constipation, urinary problems or leg pain. Objective Height: 180.3 cm (5' 11 ) Body mass index is 47.04 kg/m??. Unable to calculate weight change. Weight: (!) 153 kg (337 lb 4.9 oz) Exam Physical Exam Vitals signs and nursing note reviewed. Constitutional: Appearance: Normal appearance. He is ill-appearing. HENT: Head: Normocephalic and atraumatic. Cardiovascular: Rate and Rhythm: Normal rate and regular rhythm. Pulses: Normal pulses. Pulmonary: Effort: Pulmonary effort is normal. No respiratory distress. Breath sounds: Normal breath sounds. No wheezing or rales. Abdominal: General: Bowel sounds are normal. There is distension. Palpations: Abdomen is soft. Tenderness: There is no abdominal tenderness. Musculoskeletal: Right lower leg: No edema. Feet: Skin: General: Skin is warm and dry. Neurological: General: No focal deficit present. Mental Status: He is alert and oriented to person, place, and time. Lab/Other Information Data Vitals Signs and Current Lab Results have been reviewed. Hospital Problems * Open wound of left heel Had debridement done by Podiatry on May 25. ID suspicious for calcaneal osteomyelitis. Patient on Ceftriaxone. Wound culture shows moderate streptococcus constellatus Streptococcus anginosus, Proteus vulgaris and light staphylococcus Will defer antibiotics to ID. Cellulitis of left heel On ceftriaxone and anticipate he will be on it for 6 weeks Type 2 diabetes mellitus with hyperglycemia She is on glycemic management protocol and will need his lantus increased for better glycemic control Morbid obesity Will need to be counseled on weight management as an out patient Jose Astudillo MD * Adryan Martinez, PT - 05/26/2020 11:18 AM CDT Physical Therapy Evaluation. PT orders received, chart reviewed for diagnosis and medical systems review.. Nursing consents for PT. Explained purpose of PT and patient consented to participate in therapy. PPE worn by staff: mask - surgical;gloves PPE worn by patient: gown - patient, clean;socks - clean S/p partial calcanectomy; Light TTWB on LLE per podiatry SUBJECTIVE: Taye states that he has 7/10 pain in the L knee when he was laying down in bed however he does not have any complaints during the session. Home Situation: Type of Residence: Apartment Lives with:: Spouse Steps to Enter: No Home Structure: One Story Equipment At Home: Chair-Shower;Grab Bars;Walker-2 Wheeled;Wheelchair-Standard Prior Level of Functioning: Mobility: Ambulate-In Home ;With Assistive Device Fallen Within 6 Mos: 5 Have Help at Home?: Yes, there is help at home now How often is assistance provided?: assists with dressing, bathing, cooking, cleaning Activity at Home: Sedentary Oxygen at Home: No Pain Assessment: Pain Rating Score #: 7 Pain Location : Knee Pain Orientation: Left Patient/family stated goal: To get moving better OBJECTIVE: Cognition: Orientation Level: Oriented X4 Level of Consciousness-Adult: Alert Participation: Active Participation Precautions: TTWB on L foot ROM and Strength: Strength - Right Lower Extremity: Within Functional Limits(able to lift against gravity; at least 3+/5 in hip/knee) Strength - Left Lower Extremity: Within Functional Limits(able to lift against gravity; at least 3+/5 in hip/knee) Sensation: Sensation - Right Lower Extremity: Exceptions(absent sensation in foot) Sensation - Left Lower Extremity: Exceptions(absent sensation in foot) Balance: Sitting - Static: Good Sitting - Dynamic: Good - Transfers: Sit to Stand: Total Assistance;X 2(piper steady) Stand to Sit: Total Assistance;X 2(piper steady) Chair to Bed: Activity Does Not Occur Bed to Chair: Total Assistance;X 2(piper steady) Mobility: Distance Ambulated: 0 FEET Weight Bearing Status-LLE: Other (Comment)(light toe touch per podiatry) Weight Bearing Status-RLE: Weight Bearing as Tolerated Activity Tolerance/Oxygen Requirements and Vitals: O2 L/M: 0 $ O2 DEVICE: Room Air ASSESSMENT: Taye tolerated the skilled PT evaluation fairly. He demonstrates fair functional strength in his BLE's as witnessed by the ability to lift both legs off of the bed against gravity. He was able to sit up on the EOB with MOD A from the PT and demonstrated good sitting balance. Retrieved the bariatric walker and attempted standing but he was unable to clear his buttocks with several standing attempts so piper steady was retrieved to perform the transfer. He was educated on his WB status and encouraged to try to maintain NWB in his LLE but allowed for TTWB per podiatry orders. Tech was present to monitor LLE TTWB and help him hold up the L foot as needed. PT assisted him to stand up in the piper steady and he did fairly well with this requiring MOD to MAX A to come to a full standing position. He was transferred to the recliner with Total assist from the piper steady. He could potentially benefit from a sliding board transfer to a w/c however nursing reports that if he is up in a chair, they wanted his feet elevated so the piper steady to recliner was selected today. Patient subjectively reports feeling much better sitting up in the recliner. He did not complain of any painduring the transfer. Call light and phone in reach with chair alarm activated. All lines, monitors, IV's, equipment in place and intact pre and post visit. RNEmily, notified of patient's performance/location end of session. PT Latha Rodarte, present to assist throughout the session. Pt educated in PT plan of care, fall precautions, and benefits of OOB activity. Problem list: decreased strength, decreased balance, decreased endurance Functional limitations: Decreased independence with ambulation/transfers, decreased safety with functional mobility. Rationale for therapy: Patient will benefit from PT to address the above issues. Refer to Plan of Care for PT goals. Please refer to Filed Flowsheet PT Evaluation for further details. RECOMMENDATIONS/PLAN: Discharge Equipment Recommendations: To Be Determined PT Discharge Recommendations: Shelter Facility;Inpatient Rehab Recommended Transportation Method: Stretcher/Ambulance If this is the last PT visit, this note serves as the discharge summary. [phone] * Chidi Madrigal DO - 05/26/2020 10:36 AM CDT INFECTIOUS DISEASES PROGRESS NOTE Name: Taye Marrero Age: [age] year old Sex: male Attending: Jose Astudillo MD Consulting: Chidi Madrigal DO Admit Date: 05/23/2020 1:09 AM Hospital Day: 3 Hospital course S/p ulcer debridement and partial calcanectomy Afebrile No nausea/emesis/diarrhea VITALS: BP 139/93 Pulse 58 Temp 98.4 ??F (36.9 ??C) (Oral) Resp 16 Ht 1.803 m (5' 11 ) Wt 153 kg (337 lb 4.9 oz) SpO2 90% BMI 47.04 kg/m2 EXAM: General appearance: AOx3, NAD, obese HEAD/ENT: ENT exam normal, no neck nodes or sinus tenderness Neck: normal, supple and no adenopathy Lungs: breath sounds normal and symmetric; no rales or wheezes Heart: regular rhythm, normal S1 and S2, without murmurs, gallops or rubs Abdomen: soft without mass, non-tender, with normal bowel sounds Extremities: left heel ulcer with necrotic change and malodor. Chronic venous stasis changes of bilateral LE MEDICATIONS FOR CURRENT ENCOUNTER: SCHEDULED MEDICATIONS: ??? 0.9% NaCl injection 3 mL, Intracatheter, q8h ??? aspirin chew tablet 81 mg, Oral, QDAY ??? cefTRIAXone (Rocephin) 2,000 mg in 0.9% NaCl IV 50 mL IVPB, Intravenous, q24h ??? collagenase (Santyl) ointment, Topical, QDAY ??? dilTIAZem coated beads 24hr (Cardizem Cd) capsule 240 mg, Oral, QDAY ??? DULoxetine (Cymbalta) capsule 40 mg, Oral, QDAY ??? enoxaparin (Lovenox) injection 40 mg, Subcutaneous, BID ??? famotidine (Pepcid) tablet 20 mg, Oral, BID ??? furosemide (Lasix) injection 40 mg, Intravenous, BID ??? gabapentin (Neurontin) capsule 300 mg, Oral, TID ??? insulin aspart (NovoLOG) pen 0-12 Units, Subcutaneous, TID WC ??? insulin aspart (NovoLOG) pen 10 Units, Subcutaneous, TID WC ??? insulin glargine (Lantus) pen 25 Units, Subcutaneous, QDAY ??? levothyroxine (Synthroid) tablet 100 mcg, Oral, QDAY BEFORE BREAKFAST ??? lisinopril (Prinivil; Zestril) tablet 40 mg, Oral, QDAY ??? loratadine (Claritin) tablet 10 mg, Oral, QDAY ??? mupirocin (Bactroban) 2 % ointment, Topical, QDAY ??? potassium - sodium phosphates (Phos-Nak) powder 1 packet, Oral, TID WC ??? pravastatin (Pravachol) tablet 40 mg, Oral, AT BEDTIME ? traZODone (Desyrel) tablet 150 mg, Oral, AT BEDTIME ?? CONTINUOUS MEDICATIONS: PRN MEDICATIONS: ??? 0.9% NaCl injection 1-10 mL, Intracatheter, PRN ??? albuterol HFA (Proventil;Ventolin;Proair) 108 (90 Base) MCG/ACT inhaler 2 puff, Inhalation, q6hPRN ??? dextrose IV 12.5-25 g, Intravenous, PRN ??? glucagon (Glucagen) injection 1 mg, Intramuscular, PRN ??? glucose (Diabetic Use) (Dex4 Glucose) oral liquid, Oral, PRN ??? glucose (Diabetic Use) oral gel, Oral, PRN ??? HYDROcodone-acetaminophen ([place]) 5-325 MG tablet 1 tablet, Oral, q4h PRN ??? morphine injection 2 mg, Intravenous, q3h PRN ??? ondansetron (disintegrating) (Zofran ODT) tablet 4 mg, Oral, q6h PRN ??? ondansetron (Zofran) injection 4 mg, Intravenous, q6h PRN ?? Or LABS: Recent Labs Component Name 05/26/20 0458 05/23/20 0506 WBC 10.5 9.8 HGB 14.1 13.8 HCT 46.5 44.1 PLTCOUNT 302 273 Recent Labs Component Name 05/26/20 0458 05/25/20 0348 05/23/20 0506 SODIUM 134* 135* 134* POTASSIUM 5.0 3.7 4.4 CHLORIDE 100 100 99 CO2 28 26 26 BUN 18 12 14 CREATININE 1.11 0.85 0.86 GLUCOSE 345* 174* 200* CALCIUM 9.7 10.0 9.9 Recent Labs Component Name 05/23/20 0506 INR 1.2* No results for input(s): PTT in the last 13689 hours. IMAGING: IMPRESSION ?? No evidence of fracture or malalignment. No cortical bone irregularity identified. Large posterior plantar ulcer of 5 cm. 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 S--Patient seen at bedside resting. Patient denies any pain to the left foot or leg. Patient statesthat he is feeling good this morning. Patient denies recent N/F/V/C/CP/SOB/calf pain. O--BP 140/63 Pulse 93 Temp 98.3 ??F (36.8 ??C) (Oral) Resp 20 Ht 5' 11 (1.803 m) Wt 337 lb 4.9 oz(153 kg) SpO2 95% BMI 47.04 kg/m2 General appearance: alert, cooperative, no distress, overweight Dressings are drainage significant bloody Pedal Exam: Vasc: Dorsalis pedis pulse 0/4 , bilateral, posterior tibial pulse 0/4 , bilateral. Capillary refill time less than 3 seconds to the distal aspect of feet, bilaterally. Feet are dry and xerotic. Pedal hair growth is absent. Feet are warm. Severe bilateral lymphedema to bilateral LE. ?? Neuro: Protective sensation absent via 10g monofilament to digits, bilaterally. ?? Derm: Surgical incision to medial foot well coapted with sutures in tact. No notable drainage or maceration noted. Heel ulcer full thickness with granular base. Notable healthy bleeding noted. Kathy wound macerationminimal. Mild malodor noted. ?? Musc: Patient denies tenderness to left heel. No gross bony abnormality noted. Most Recent CBC Component Results @RESUFAST(WBC,RBC,HEMOGLOBIN,HCTFOLATE,MCV,MCH,MCMC,RDW,PLATELETS,GRANPCT,LYMPHP CT,MONOCYTPCT,EOSINP CT,BASOPHILPCT,GRANABS,LYMPHABS,MONOCYTABS,EOSINABS,BASOABS,DIFFCOMMENT)@ Recent Labs Component Name 05/26/20 0458 05/23/20 0506 WBC 10.5 9.8 Recent Labs Component Name 05/26/20 0458 05/23/20 0506 05/23/20 0506 SODIUM 134* - 134* POTASSIUM 5.0 - 4.4 CHLORIDE 100 - 99 CO2 28 - 26 BUN 18 - 14 CREATININE 1.11 - 0.86 GLUCOSE 345* - 200* CALCIUM 9.7 - 9.9 ALBUMIN 2.8* - 2.8* ALKPHOS - - 82 ALT - - 11 AST - - 11 TBIL - - 0.5 TPROT - - 7.4 EGFR >60 - >60 - = values in this interval not displayed. No results for input(s): SEDRATE in the last 67694 hours. No results for input(s): CRP in the last 88194 hours. Cultures: Surgical 05/25/20 Gram Stain No organisms seen Moderate Polymorphonuclear cells Wound 05/23/20 Heavy Streptococcus anginosusCritical Light Gram-negative bacilliCritical ?? Gram Stain Critical Moderate Red blood cells Heavy Gram-positive cocci Light Gram-variable bacilli X-rays: 05/23/20 IMPRESSION ?? No evidence of fracture or malalignment. No cortical bone irregularity identified. Large posterior plantar ulcer of 5 cm. MRI: 05/24/20 IMPRESSION ?? A soft tissue ulcer overlies the plantar/posterior aspect of the calcaneus with calcaneal osteomyelitis. There is no evidence of abscess. SOFIA: 05/24/20 Procedure: The arterial vasculature of the lower extremities was evaluated by analysis of Doppler pressures and waveforms obtained in the legs at rest. Study Quality: Technically difficult exam due to body habitus and hardened skin. Limited exam due to body habitus. Comments: Unable to obtain bilateral groin waveforms due to body habitus. ?? Doppler Waveforms: Right Left Popliteal Tri to Bi Tri to Bi Posterior Tibial Tri to Bi Tri to Bi Dorsalis Pedis Tri to Bi Tri to Bi Assessment -s/p partial calcanectomy (DOS 05/25/20) -Diabetes mellitus with peripheral neuropathy -left heel ulceration Plan -Patient seen and evaluated -Dressing changed with betadine swab in heel wound, fluffs, ABD, kerlix and LETITIA - Heel protectors to be worn at all times when in bed - PT OT approved for WB to right, light toe touch to left with walker and assist - Dressings to be changed twice daily and PRN as needed Pending continued wound improvement, anticipate hand off to patient's original wound care provider once medically optimized Podiatry will continue to follow and perform dressing changes while in house Discussed and rounded with Dr. Neville who directed all aspects of patient care Kori John DPM PGY-1 pager [phone] cell [phone] Agree with findings as above will continue to monitor while in house, when medically stable and appropriate okay for discharge from Podiatry standpoint. Will discharge to previously managing Wound care physician near his residence. * Scott Barron RN - 05/26/2020 3:31 AM CDT Problem: Fall Risk Goal: Fall risk and fall related injury risk are minimized (interventions related to the fall risk can be found in the flowsheet documentation) Outcome: Progressing Problem: Skin Integrity Goal: Skin integrity is maintained or improved Outcome: Progressing Problem: Tissue injury due to various disease processes Goal: Provide optimal wound healing environment Outcome: Progressing Problem: Pain/Discomfort Goal: Patient exhibits reduced pain/discomfort as evidenced by pain scores Outcome: Progressing Goal: Patient uses pharmacological and non-pharmacological pain management strategies. Outcome: Progressing Goal: Patient verbalizes acceptable level of pain relief and ability to engage in desired activity. Outcome: Progressing * Eric Smith, PT - 05/25/2020 3:27 PM CDT Hold PT eval at this time, pt just got back to the floor from surgery. Will follow up for eval tomorrow. PT x [phone] * Ramona Cuellar RN - 05/25/2020 1:30 PM CDT Discharge plan is to return home with spouse when medically ready. Pt is IADL's and ambulates with a walker. Pt declined needing additional DME at home. Home care ordered to follow. Family to provide transportation. Ramona TRUJILLO, CM [phone] * Bridgette Mason MD - 05/25/2020 11:01 AM CDT Alejandra Mason, Hospitalist Admit Date: 05/23/2020 1:09 AM Hospital Day: 2 Clinical Course Taye Hurt a 64 year old male who is admitted as a direct admission transfer from [facility]. He is admitted with Infected left heel wound with cellulitis. The patient has PMHx of type 2 diabetes, CAD, hypertension, chronic bilateral lower extremity lymphedema with skin hyperkeratosis covering both legs. New Symptoms Patient was seen this morning. Alert oriented no acute distress. No acute event through night. Afebrile. Vitals are stable. Data and labs reviewed. Patient will have wound debridement today. Assessment and Plan Left foot diabetic wound ulceration with possible osteomyelitis/gangrenous changes/cellulitis/calcaneus with calcaneal osteomyelitis. Him Tech consulted, wound debridement today Continue IV antibiotics as guided by Infectious Disease specialist. Wound culture grew Gram-positive cocci in cluster, likely Staph. Id recommendation for not to take superficial wound culture noted. MRI of left foot-reviewed. Type 2 diabetes with hyperglycemia-remains uncontrolled Follow blood sugar level closely Increase Lantus and continue insulin sliding scale Glimepiride on hold for now Check hemoglobin A1c=11.3 DM education Hypomagnesemia/hypophosphatemia Will give supplement and monitor Mild hyponatremia-stable Will follow closely. Hypertension/blood pressure elevated Continue diltiazem Monitor blood pressure level Morbid obesity Weight loss advised Chronic bilateral lower extremity lymphedema/elephant legs Diurese as tolerated, will start IV diuretics. Elevate lower extremities Avoid injury Follow with lymphedema clinic after discharge. DVT prophylaxis-Lovenox subcu Patient Active Problem List: Open wound of left heel Due to medical issues in the assessment and plan, continued hospitalization will be required. DataExam Vitals: 05/24/20 1629 05/24/20 1944 05/25/20 0552 05/25/20 0700 BP: 145/90 155/92 137/89 165/94 Pulse: (!) 110 109 106 91 Resp: 17 17 17 18 Temp: 98.6 ??F (37 ??C) 98.8 ??F (37.1 ??C) 97.9 ??F (36.6 ??C) 97.9 ??F (36.6 ??C) SpO2: 94% 95% 92% 90% Weight: Height: SHEENT: PERRL and EOMI General appearance: alert, cooperative, no distress, very obese Lungs: breath sounds normal and symmetric; no rales or wheezes Heart: regular rhythm, normal S1 and S2, without murmurs, gallops or rubs Abdomen: soft without mass, non-tender, with normal bowel sounds Extremities: no clubbing, cyanosis, chronic lymphocytic edema, elephant legs. Neuro : Alert + oriented; Non-focal Data Intake/Output Summary (Last 24 hours) at 05/25/2020 1101 Last data filed at 05/24/2020 1945 Gross per 24 hour Intake 200 ml Output -- Net 200 ml Labs and EKG and imaging have been reviewed. Recent Labs Component Name 05/23/20 0506 WBC 9.8 HGB 13.8 HCT 44.1 PLTCOUNT 273 Recent Labs Component Name 05/25/20 0348 05/23/20 0506 SODIUM 135* 134* POTASSIUM 3.7 4.4 CHLORIDE 100 99 CO2 26 26 BUN 12 14 CREATININE 0.85 0.86 GLUCOSE 174* 200* CALCIUM 10.0 9.9 Recent Labs Component Name 05/25/20 0348 05/23/20 0506 MAGNESIUM 1.6 1.4* ALBUMIN 2.9* 2.8* ALT - 11 AST - 11 Recent Labs Component Name 05/23/20 0506 PT 14.8 INR 1.2* MEDICATIONS FOR CURRENT ENCOUNTER: SCHEDULED MEDICATIONS: ??? 0.9% NaCl injection 3 mL, Intracatheter, q8h ??? aspirin chew tablet 81 mg, Oral, QDAY ??? cefTRIAXone (Rocephin) 2,000 mg in 0.9% NaCl IV 50 mL IVPB, Intravenous, q24h ??? collagenase (Santyl) ointment, Topical, QDAY ??? dilTIAZem coated beads 24hr (Cardizem Cd) capsule 240 mg, Oral, QDAY ??? DULoxetine (Cymbalta) capsule 40 mg, Oral, QDAY ??? enoxaparin (Lovenox) injection 40 mg, Subcutaneous, BID ??? famotidine (Pepcid) tablet 20 mg, Oral, BID ??? furosemide (Lasix) injection 40 mg, Intravenous, BID ??? gabapentin (Neurontin) capsule 300 mg, Oral, TID ??? insulin aspart (NovoLOG) pen 0-12 Units, Subcutaneous, TID WC ??? insulin aspart (NovoLOG) pen 10 Units, Subcutaneous, TID WC ??? insulin glargine (Lantus) pen 20 Units, Subcutaneous, QDAY ??? levothyroxine (Synthroid) tablet 100 mcg, Oral, QDAY BEFORE BREAKFAST ??? lisinopril (Prinivil; Zestril) tablet 40 mg, Oral, QDAY ??? loratadine (Claritin) tablet 10 mg, Oral, QDAY ??? mupirocin (Bactroban) 2 % ointment, Topical, QDAY ??? pravastatin (Pravachol) tablet 40 mg, Oral, AT BEDTIME ??? traZODone (Desyrel) tablet 150 mg, Oral, AT BEDTIME ? [COMPLETED] magnesium sulfate 2 g in 50 mL bolus, Intravenous, Once ?? CONTINUOUS MEDICATIONS: PRN MEDICATIONS: ??? 0.9% NaCl injection 1-10 mL, Intracatheter, PRN ??? albuterol HFA (Proventil;Ventolin;Proair) 108 (90 Base) MCG/ACT inhaler 2 puff, Inhalation, q6h PRN ??? dextrose IV 12.5-25 g, Intravenous, PRN ??? glucagon (Glucagen) injection 1 mg, Intramuscular, PRN ??? glucose (Diabetic Use) (Dex4 Glucose) oral liquid, Oral, PRN ??? glucose (Diabetic Use) oral gel, Oral, PRN ??? HYDROcodone-acetaminophen ([place]) 5-325 MG tablet 1 tablet, Oral, q4h PRN ??? morphine injection 2 mg, Intravenous, q3h PRN ??? ondansetron (disintegrating) (Zofran ODT) tablet 4 mg, Oral, q6h PRN ??? ondansetron (Zofran) injection 4 mg, Intravenous, q6h PRN ?? Or * Eric Smith, PT - 05/25/2020 10:04 AM CDT Pt currently off the floor for heel debridement. Will follow up at a later time. PT x [phone] * Chidi Madrigal DO - 05/25/2020 9:49 AM CDT INFECTIOUS DISEASES PROGRESS NOTE Name: Taye Marrero Age: [age] year old Sex: male Attending: Bridgette Mason MD Consulting: Chidi Madrigal DO Admit Date: 05/23/2020 1:09 AM Hospital Day: 2 Hospital course Scheduled for heel debridement today Blood cultures negative Afebrile SOFIA reviewed with patient VITALS: BP 165/94 Pulse 91 Temp 97.9 ??F (36.6 ??C) Resp 18 Ht 1.803 m (5' 11 ) Wt 153 kg (337 lb 4.9 oz) SpO2 90% BMI 47.04 kg/m2 EXAM: General appearance: AOx3, NAD, obese HEAD/ENT: ENT exam normal, no neck nodes or sinus tenderness Neck: normal, supple and no adenopathy Lungs: breath sounds normal and symmetric; no rales or wheezes Heart: regular rhythm, normal S1 and S2, without murmurs, gallops or rubs Abdomen: soft without mass, non-tender, with normal bowel sounds Extremities: left heel ulcer with necrotic change and malodor. Chronic venous stasis changes of bilateral LE MEDICATIONS FOR CURRENT ENCOUNTER: ?? SCHEDULED MEDICATIONS: ? 0.9% NaCl injection 3 mL, Intracatheter, q8h ? aspirin chew tablet 81 mg, Oral, QDAY ? collagenase (Santyl) ointment, Topical, QDAY ? dilTIAZem coated beads 24hr (Cardizem Cd) capsule 240 mg, Oral, QDAY ? DULoxetine (Cymbalta) capsule 40 mg, Oral, QDAY ? enoxaparin (Lovenox) injection 40 mg, Subcutaneous, BID ? famotidine (Pepcid) tablet 20 mg, Oral, BID ? furosemide (Lasix) injection 40 mg, Intravenous, BID ? gabapentin (Neurontin) capsule 300 mg, Oral, TID ? insulin aspart (NovoLOG) pen 0-12 Units, Subcutaneous, TID WC ? insulin aspart (NovoLOG) pen 10 Units, Subcutaneous, TID WC ? insulin glargine (Lantus) pen 20 Units, Subcutaneous, QDAY ? levothyroxine (Synthroid) tablet 100 mcg, Oral, QDAY BEFORE BREAKFAST ? lisinopril (Prinivil; Zestril) tablet 40 mg, Oral, QDAY ? loratadine (Claritin) tablet 10 mg, Oral, QDAY ? mupirocin (Bactroban) 2 % ointment, Topical, QDAY ? pravastatin (Pravachol) tablet 40 mg, Oral, AT BEDTIME ? traZODone (Desyrel) tablet 150 mg, Oral, AT BEDTIME ? vancomycin (Vanco Ready) 1,750 mg in 350 mL NaCl IVPB, Intravenous, q12h ? [COMPLETED] magnesium sulfate 2 g in 50 mL bolus, Intravenous, Once ?? CONTINUOUS MEDICATIONS: ?? PRN MEDICATIONS: ? 0.9% NaCl injection 1-10 mL, Intracatheter, PRN ? albuterol HFA (Proventil;Ventolin;Proair) 108 (90 Base) MCG/ACT inhaler 2 puff, Inhalation, q6h PRN ? dextrose IV 12.5-25 g, Intravenous, PRN ? glucagon (Glucagen) injection 1 mg, Intramuscular, PRN ? glucose (Diabetic Use) (Dex4 Glucose) oral liquid, Oral, PRN ? glucose (Diabetic Use) oral gel, Oral, PRN ? HYDROcodone-acetaminophen ([place]) 5-325 MG tablet 1 tablet, Oral, q4h PRN ? morphine injection 2 mg, Intravenous, q3h PRN ? ondansetron (disintegrating) (Zofran ODT) tablet 4 mg, Oral, q6h PRN ? ondansetron (Zofran) injection 4 mg, Intravenous, q6h PRN ?? Or LABS: Recent Labs Component Name 05/23/20 0506 WBC 9.8 HGB 13.8 HCT 44.1 PLTCOUNT 273 Recent Labs Component Name 05/25/20 0348 05/23/20 0506 SODIUM 135* 134* POTASSIUM 3.7 4.4 CHLORIDE 100 99 CO2 26 26 BUN 12 14 CREATININE 0.85 0.86 GLUCOSE 174* 200* CALCIUM 10.0 9.9 Recent Labs Component Name 05/23/20 0506 INR 1.2* No results for input(s): PTT in the last 41233 hours. IMAGING: IMPRESSION ?? No evidence of fracture or malalignment. No cortical bone irregularity identified. Large posterior plantar ulcer of 5 cm. 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 Patient will need PICC prior to discharge D/w patient * Sonia Bernardo RD/TRISH - 05/25/2020 9:31 AM CDT Nutrition Reassessment Recommendations: Continue to provide reinforcement of diabetes education. Would benefit from outpatient education. Nutrition recommendation: agree with current nutrition order Changes in condition: RD re-assessment note. Good intakes on diabetic diet. Currently, NPO for debridement. + BM. Pt was educated previously during stay. Monitor per guidelines. Assessment: Current diet order: NPO(for debridement) P.O. Intake for past 48 hours: % Meal Taken Av % Min: 100 % Max: 100 % Height: 5' 11 (180.3 cm), Weight: (!) 337 lb 4.9 oz (153 kg), Weight Method (Utilize Scales): Other (Comment), BMI Range: Morbidly Obese Class 3 Change in weight: Admission weight: Weight: (!) 337 lb 4.9 oz (153 kg) (05/23/20 0252) Most recent weight: Weight: (!) 337 lb 4.9 oz (153 kg) (05/23/20 025) GI Concerns: (last BM 3-24) Chewing/Swallowing: None Skin/Wound: wound to left heel, chronic lymphedema, wounds to bilateral legs Pain affecting intake: No Pertinent Labs: Patient Vitals for the past 30 hrs: Glucose Bedside (mg/dL) 05/24/20 1944 193 mg/dL 05/24/20 1210 297 mg/dL Pertinent Meds: ? furosemide (Lasix) injection 40 mg, Intravenous, BID ? insulin aspart (NovoLOG) pen 0-12 Units, Subcutaneous, TID WC ? insulin aspart (NovoLOG) pen 10 Units, Subcutaneous, TID WC ? insulin glargine (Lantus) pen 20 Units, Subcutaneous, QDAY Estimated Needs: KCAL: 1950(25 kcal/kg IBW) Protein (g): 95(1.2 g/kg IBW) Fluid (ml): 1 ml/kcal Nutrition Plan of Care continues the same. Refer to Care Plan for Nutrition Problem, Interventions, and Goal information. Monitor per guidelines. * Sonia Bernardo RD/LDN - 05/25/2020 9:31 AM CDT Problem: Nutrient: Increased nutrient needs (specify) Description: Nutrition Care Process (1) Nutrition Diagnostic Statement: Increased nutrient needs related to:: increased demands for wound healing as evidenced by:: delayed wound healing Goal: Intake percent from meals/snacks for this admission will be greater than: (specify) Description: Taye's Nutrition Goal: Intake percent from meals/snacks for this admission will be greater than:(75%) Nutrition Goal Timeframe: Throughout stay Outcome: Progressing Note: Currently NPO for procedure. Previously, eating well (PO Intake Average (last 72 hours): % Meal Taken Av.3 % Min: 50 % Max: 100 %) * Maxi Neville DPM - 05/25/2020 8:21 AM CDT Attempting to schedule patient later today for debridement.Surgical orders placedWill update staff when time available. * Jo Ann Garza RN - 05/25/2020 1:21 AM CDT Problem: Fall Risk Goal: Fall risk and fall related injury risk are minimized (interventions related to the fall risk can be found in the flowsheet documentation) Outcome: Progressing Problem: Glycemia Imbalance Goal: Clinical indication of glycemia balance is achieved Outcome: Progressing Goal: Continuum of care needs are met for Glycemic Management Outcome: Progressing Problem: Skin Integrity Goal: Skin integrity is maintained or improved Outcome: Progressing Problem: Tissue injury due to various disease processes Goal: Provide optimal wound healing environment Outcome: Progressing Problem: Tissue Injury Due to Loss of Protective Sensation Goal: Protect Injured Tissue and Prevent Further Injury Outcome: Progressing Problem: Tissue Injury Due to External Forces of Pressure, Friction, and Shear Goal: Maintain and Improve Tissue Tolerance to Pressure Outcome: Progressing Problem: Pain/Discomfort Goal: Patient exhibits reduced pain/discomfort as evidenced by pain scores Outcome: Progressing Goal: Patient uses pharmacological and non-pharmacological pain management strategies. Outcome: Progressing Goal: Patient verbalizes acceptable level of pain relief and ability to engage in desired activity. Outcome: Progressing Problem: Discharge Planning Goal: Patient's continuum of care needs are met Outcome: Progressing Problem: Nutrient: Increased nutrient needs (specify) Description: Nutrition Care Process (1) Nutrition Diagnostic Statement: Increased nutrient needs related to:: increased demands for wound healing as evidenced by:: delayed wound healing Goal: Intake percent from meals/snacks for this admission will be greater than: (specify) Description: Taye'asmita Nutrition Goal: Intake percent from meals/snacks for this admission will be greater than:(75%) Nutrition Goal Timeframe: Throughout stay Outcome: Progressing Met with patient 1:1 for shift assessment. Patient cooperative with assessment process. Patient denied presence of physical pain. patient Patient reported no problems related to appetite. Patient compliant with administration of scheduled medications. Patient voiced understanding of treatment plan.Patient given emotional support and was encouraged to come to staff with needs/concerns. Will continue to monitor for changes. * Mario George PharmD - 05/24/2020 7:20 PM CDT Vancomycin Per Pharmacy Taye Marrero is a 64 year old male being treated with vancomycin for Cellulitis/wound infection. Patient has been receiving vancomycin 1750 mg IV every 12 hours. Vancomycin Administrations from APR (last 72 hours) Date/Time Action Medication Dose Rate 05/24/20 0629 $ New Bag vancomycin (Vanco Ready) 1,750 mg in 350 mL NaCl IVPB 1,750 mg 200 mL/hr 05/23/20 1846 $ New Bag vancomycin (Vanco Ready) 1,750 mg in 350 mL NaCl IVPB 1,750 mg 200 mL/hr 05/23/20 0647 $ New Bag vancomycin (Vanco Ready) 1,750 mg in 350 mL NaCl IVPB 1,750 mg 200 mL/hr Weight: (!) 153 kg (337 lb 4.9 oz) Temp (30hrs) Max:98.8 ??F (37.1 ??C) Current Labs: Recent Labs Component Name 05/23/20 0506 BUN 14 CREATININE 0.86 EGFR >60 WBC 9.8 Renal: Estimated Creatinine Clearance: 130.6 mL/min (based on SCr of 0.86 mg/dL). MRSA Nasal Swab: Patient meets exclusion criteria - nasal swab will not be ordered by pharmacy Levels: Vancomycin Trough Goal: 15-20 mcg/ml Recent Labs Component Name 05/24/20 1844 VANCTROUGH 20.0 Assessment/Plan: Vancomycin trough level is therapeutic. Will continue current vancomycin regimen of 1750 mg every 12 hours. Will obtain a vancomycin trough level 05/25/20 at 1800. Pharmacy will continue to follow andadjust regimen as necessary. Mario George PharmD, 05/24/2020 7:21 PM * Eric Smith, PT - 05/24/2020 1:38 PM CDT Pt currently off the floor for MRI at this time. Will follow up as time allows. PT x [phone] * Bridgette Mason MD - 05/24/2020 9:16 AM CDT Alejandra Mason Hospitalist Admit Date: 05/23/2020 1:09 AM Hospital Day: 1 Clinical Course Taye Hurt a 64 year old male who is admitted as a direct admission transfer from [facility]. He is admitted with Infected left heel wound with cellulitis. The patient has PMHx of type 2 diabetes, CAD, hypertension, chronic bilateral lower extremity lymphedema with skin hyperkeratosis covering both legs. New Symptoms Patient was seen this morning. Alert oriented no acute distress. No acute event through night. Afebrile. Vitals are stable. Assessment and Plan Left foot diabetic wound ulceration with possible osteomyelitis/gangrenous changes/cellulitis Him Tech was consulted Wound care nurse consulted Started on IV antibiotics Wound culture grew Gram-positive cocci in cluster, likely Staph aureus. May need MRI of left foot. Type 2 diabetes with hyperglycemia Follow blood sugar level closely Continue Lantus and insulin sliding scale Glimepiride on hold for now Check hemoglobin A1c Hypo magnesemia Will give supplement and monitor Mild hyponatremia Will follow closely. Hypertension/blood pressure elevated Continue diltiazem Monitor blood pressure level Morbid obesity Weight loss advised Chronic bilateral lower extremity lymphedema/elephant legs Diurese as tolerated, will start IV diuretics. Elevate lower extremities Avoid injury Follow with lymphedema clinic after discharge. Patient Active Problem List: Open wound of left heel Due to medical issues in the assessment and plan, continued hospitalization will be required. DataExam Vitals: 05/23/20202605/23/20 2342 05/24/20 0450 05/24/20 0814 BP: 143/89 158/98 162/97 154/90 Pulse: 101 109 102 94 Resp: 18 18 18 18 Temp: 98.6 ??F (37 ??C) 98.6 ??F (37 ??C) 98.8 ??F (37.1 ??C) 97.6 ??F (36.4 ??C) SpO2: 91% 92% 90% 92% Weight: Height: SHEENT: PERRL and EOMI General appearance: alert, cooperative, no distress, very obese Lungs: breath sounds normal and symmetric; no rales or wheezes Heart: regular rhythm, normal S1 and S2, without murmurs, gallops or rubs Abdomen: soft without mass, non-tender, with normal bowel sounds Extremities: no clubbing, cyanosis, chronic lymphocytic edema, elephant legs. Neuro : Alert + oriented; Non-focal Data Intake/Output Summary (Last 24 hours) at 05/24/2020 0916 Last data filed at 05/24/2020 0811 Gross per 24 hour Intake 800.43 ml Output 2405 ml Net -1604.57 ml Labs and EKG and imaging have been reviewed. Recent Labs Component Name 05/23/20 0506 WBC 9.8 HGB 13.8 HCT 44.1 PLTCOUNT 273 Recent Labs Component Name 05/23/20 0506 SODIUM 134* POTASSIUM 4.4 CHLORIDE 99 CO2 26 BUN 14 CREATININE 0.86 GLUCOSE 200* CALCIUM 9.9 Recent Labs Component Name 05/23/20 0506 MAGNESIUM 1.4* ALBUMIN 2.8* ALT 11 AST 11 Recent Labs Component Name 05/23/20 0506 PT 14.8 INR 1.2* MEDICATIONS FOR CURRENT ENCOUNTER: ?? SCHEDULED MEDICATIONS: ? 0.9% NaCl injection 3 mL, Intracatheter, q8h ? aspirin chew tablet 81 mg, Oral, QDAY ? collagenase (Santyl) ointment, Topical, QDAY ? dilTIAZem coated beads 24hr (Cardizem Cd) capsule 240 mg, Oral, QDAY ? DULoxetine (Cymbalta) capsule 40 mg, Oral, QDAY ? enoxaparin (Lovenox) injection 40 mg, Subcutaneous, BID ? famotidine (Pepcid) tablet 20 mg, Oral, BID ? furosemide (Lasix) tablet 40 mg, Oral, QDAY ? gabapentin (Neurontin) capsule 300 mg, Oral, TID ? insulin aspart (NovoLOG) pen 0-12 Units, Subcutaneous, TID WC ? insulin aspart (NovoLOG) pen 10 Units, Subcutaneous, TID WC ? insulin glargine (Lantus) pen 20 Units, Subcutaneous, QDAY ? levothyroxine (Synthroid) tablet 100 mcg, Oral, QDAY BEFORE BREAKFAST ? lisinopril (Prinivil; Zestril) tablet 40 mg, Oral, QDAY ? loratadine (Claritin) tablet 10 mg, Oral, QDAY ? mupirocin (Bactroban) 2 % ointment, Topical, QDAY ? pravastatin (Pravachol) tablet 40 mg, Oral, AT BEDTIME ? traZODone (Desyrel) tablet 150 mg, Oral, AT BEDTIME ? vancomycin (Vanco Ready) 1,750 mg in 350 mL NaCl IVPB, Intravenous, q12h ?? CONTINUOUS MEDICATIONS: ?? PRN MEDICATIONS: ? 0.9% NaCl injection 1-10 mL, Intracatheter, PRN ? albuterol HFA (Proventil;Ventolin;Proair) 108 (90 Base) MCG/ACT inhaler 2 puff, Inhalation, q6h PRN ? dextrose IV 12.5-25 g, Intravenous, PRN ? glucagon (Glucagen) injection 1 mg, Intramuscular, PRN ? glucose (Diabetic Use) (Dex4 Glucose) oral liquid, Oral, PRN ? glucose (Diabetic Use) oral gel, Oral, PRN ? HYDROcodone-acetaminophen ([place]) 5-325 MG tablet 1 tablet, Oral, q4h PRN ? morphine injection 2 mg, Intravenous, q3h PRN ? ondansetron (disintegrating) (Zofran ODT) tablet 4 mg, Oral, q6h PRN ? ondansetron (Zofran) injection 4 mg, Intravenous, q6h PRN ?? Or * Nguyễn Farley RN - 05/24/2020 12:43 AM CDT Images from the original note were not included. 05/23/20 0241 Hank Scale - Adult Sensory Perception 3 Moisture 3 Activity 1 Mobility 2 Nutrition 3 Friction and Shear 2 Total Score 14 2 nurse skin assesment patient with bilateral callous skin, eschar on left heel, boots placed, low air loss, small open area on buttocks * Valencia Arce RN - 05/23/2020 6:56 PM CDT Problem: Fall Risk Goal: Fall risk and fall related injury risk are minimized (interventions related to the fall risk can be found in the flowsheet documentation) Outcome: Progressing Problem: Glycemia Imbalance Goal: Clinical indication of glycemia balance is achieved Outcome: Progressing Goal: Continuum of care needs are met for Glycemic Management Outcome: Progressing Problem: Skin Integrity Goal: Skin integrity is maintained or improved Outcome: Progressing Problem: Tissue injury due to various disease processes Goal: Provide optimal wound healing environment Outcome: Progressing Problem: Tissue Injury Due to Loss of Protective Sensation Goal: Protect Injured Tissue and Prevent Further Injury Outcome: Progressing Problem: Tissue Injury Due to External Forces of Pressure, Friction, and Shear Goal: Maintain and Improve Tissue Tolerance to Pressure Outcome: Progressing Problem: Pain/Discomfort Goal: Patient exhibits reduced pain/discomfort as evidenced by pain scores Outcome: Progressing Goal: Patient uses pharmacological and non-pharmacological pain management strategies. Outcome: Progressing Goal: Patient verbalizes acceptable level of pain relief and ability to engage in desired activity. Outcome: Progressing Problem: Discharge Planning Goal: Patient's continuum of care needs are met Outcome: Progressing Problem: Nutrient: Increased nutrient needs (specify) Description: Nutrition Care Process (1) Nutrition Diagnostic Statement: Increased nutrient needs related to:: increased demands for wound healing as evidenced by:: delayed wound healing Goal: Intake percent from meals/snacks for this admission will be greater than: (specify) Description: [place] Nutrition Goal: Intake percent from meals/snacks for this admission will be greater than:(75%) Nutrition Goal Timeframe: Throughout stay Outcome: Progressing * Bridgette Mason MD - 05/23/2020 3:37 PM CDT Patient was seen and examined today. Chart reviewed. Continue current treatment. Id and Wound Care consulted. Continue IV antibiotics. Will follow. * Sonia Bernardo RD/TRISH - 05/23/2020 2:41 PM CDT Initial Nutrition Assessment Comments: RD completed assessment given non healing wound consult. RD spoke with pt and family at bedside. Pt and just moved to a new apartment and they have lost their glucometer and testing strips. Blood sugars had been in the 150s but most recently in the 200s. Education provided on importance of consistent carb, heart healthy (lean mean and sodium restriction) to aid with healing. Could benefit from outpatient follow-up. Wounds noted to legs. Pt remains at risk. Assessment: Med/Surg History and Clinical Diagnoses: Admit: wound to left heel PMH: T2DM, CAD, HTN Height: 5' 11 (180.3 cm) Weight: (!) 337 lb 4.9 oz (153 kg) Weight Method (Utilize Scales): Other (Comment) BMI: Body mass index is 47.04 kg/m??. BMI Range: Morbidly Obese Class 3 Unintended weight change: None Food Allergies: No known food allergies Current diet order: Consistent Carb Standard PO intake: PO Intake Average (last 72 hours): % Meal Taken Av % Min: 50 % Max: 50 % GI Concerns: None Chewing/Swallowing: None Pain affecting intake: No Skin/Wound: wound to left heel, chronic lymphedema, wounds to bilateral legs Estimated Needs: KCAL: 1950(25 kcal/kg IBW) Protein (g): 95(1.2 g/kg IBW) Fluid (ml): 1 ml/kcal Recommended Access Route: PO Pertinent Nutrition Labs: Reviewed Pertinent Nutrition Medications: Reviewed Education: Education needed: Consistent Carb Education Provided: Yes;Handout Provided See Education Tab for provided education details. Nutrition Care Process (1) Nutrition Diagnostic Statement: Increased nutrient needs related to:: increased demands for wound healing as evidenced by:: delayed wound healing Nutrition Intervention: Meals and snacks:;Nutrition Education - Content Recommendations: Nutrition recommendation: agree with current nutrition order Notified CM regarding DME need. Outpatient follow up. Monitoring: Weight Skin Labs Amount of food Food and Nutrition Knowledge Evaluation: Diagnostic Statement #1 Goals: Nutrition Goal: Intake percent from meals/snacks for this admission will be greater than:(75%) Nutrition Goal Timeframe: Throughout stay Nutrition Goal Progress: New goal established * Ramona Cuellar RN - 05/23/2020 10:42 AM CDT A Chart Review has been conducted by Case Management. Anticipated level of care at discharge: Home, Home Health Care Discharge Plan: Met with pt in room. Taye lives at home with spouse and plans to return when medically ready. Pt is IADL's and ambulates with a walker. Spouse drives. Pt declined needing additional DME at home. Pt declined assistance in scheduling an office visit with his PCP and declined further needs. Home care may be beneficial. Basic Needs Assessment (BNA) Score: 9 Anticipated Discharge Date: 05/25/20 PCP: Leeroy Sheehan, Per nursing assessments: Transportation at discharge: Family Clinical Nurse/Support Person - Relationship:: Marlys Marrero Clinical Nurse/Support Person Contact #: [phone] Home/Functional Status: Functional and Cognitive Status Is person deaf or have serious hearing difficulty?: Yes Is person blind or have serious difficulty seeing?: No Does person have serious difficulty walking/climbing stairs?: Yes Does person have difficulty dressing/bathing?: No Does person have difficulty doing errands alone?: No Does person have difficulty concentrating/remembering/making decisions?: No Equipment: Walker; lift chair ?. Will continue to follow. For any questions or needs please contact: Lighter Name/Phone number: Ramona Cuellar RN [phone] * Mario George PharmD - 05/23/2020 6:19 AM CDT Vancomycin Per Pharmacy Taye Marrero is a 64 year old male being initiated on vancomycin for Cellulitis/Ulceration complicated by DM. Weight: (!) 153 kg (337 lb 4.9 oz) Temp (30hrs) Max:98.8 ??F (37.1 ??C) Current Labs: Recent Labs Component Name 05/23/20 0506 BUN 14 CREATININE 0.86 EGFR >60 WBC 9.8 Renal: Estimated Creatinine Clearance: 130.6 mL/min (based on SCr of 0.86 mg/dL). MRSA Nasal Swab: Patient meets exclusion criteria - nasal swab will not be ordered by pharmacy Calculations: Loading Dose: 2500 mg administered 05/22/20 @1553 Maintenance Dose: 1750 mg (15 mg/kg rounded to nearest 250 mg) Interval: every 12 hours (based on age and renal function) Vancomycin Trough Goal: 15-20 mcg/ml Assessment/Plan: Initiate regimen of vancomycin 2500 mg IV ONCE, followed by vancomycin 1750 mg IV every 12 hours. Will obtain a vancomycin trough level 05/24/20 at 1800. Pharmacy will continue to follow and adjust regimen as necessary. Mario George PharmD, 05/23/2020 6:19 AM * Nguyễn Farley RN - 05/23/2020 3:44 AM CDT Problem: Fall Risk Goal: Fall risk and fall related injury risk are minimized (interventions related to the fall risk can be found in the flowsheet documentation) Outcome: Progressing documented in this encounter H&P Notes * Soren Renee MD - 05/23/2020 1:45 AM CDT History and Physical Date of Admission: 05/23/2020 Patient's Primary Care Physician: No primary care provider on file. Name: Taye Marrero Age: [age] year old Sex: male Chief Complaint: Infected left heel wound with cellulitis History of Present Illness: Admit to Inpatient Status Taye Hurt a 64 year old male who is admitted as a direct admission transfer from [facility]. He is admitted with Infected left heel wound with cellulitis. The patient has PMHx of type 2 diabetes, CAD, hypertension, chronic bilateral lower extremity lymphedema with skin hyperkeratosis covering both legs. The patient went to ER initially because he has chronic diabetic wound in the left heel, his noticed that it is becoming blackish in color and dry, he went to ER for further evaluation. Workup in the ER revealed, chest x-ray with possible osteomyelitis, diabetic wound deep, with surrounding cellulitis involving the foot and left leg. He denies fever, nausea, vomiting, chest pain, shortness of breath, diarrhea. PMHx type 2 diabetes, CAD, hypertension, chronic bilateral lower extremity lymphedema with skin hyperkeratosis covering both legs. FHx. Reviewed and none Social history: Former smoker, denies ethanol abuse I have reviewed the patient's medical, surgical, and family history as well medication list and allergies and updated as needed. No past medical history on file. No past surgical history on file. No family history on file. Social History Occupational History ??? Not on file Tobacco Use ??? Smoking status: Not on file Substance and Sexual Activity ??? Alcohol use: Not on file ??? Drug use: Not on file ??? Sexual activity: Not on file No medications prior to admission. Not on File Review of Systems: A 10 organ system Review of Systems was performed and pertinent positives included in the HPI, otherwise remaining ROS is negative. Exam: Vitals: 05/23/20 0122 BP: 149/95 Pulse: (!) 118 Resp: 18 Temp: 98.5 ??F (36.9 ??C) SpO2: 93% General appearance: alert, cooperative, morbid obesity Head: Normocephalic, without trauma Eyes: PERRL Throat: no mucous membrane abnormalities Neck: range of motion is intact Lungs: breath sounds normal and symmetric; no rales or wheezes Heart: regular rhythm, normal S1 and S2, without murmurs, gallops or rubs Abdomen: soft without mass, non-tender, with normal bowel sounds Extremities: Bilateral chronic lymphedema in both lower extremities Has redness and evidence of cellulitis over the left leg and foot Positive diabetic wound ulcer, deep, dry and becoming blackish Skin: no rashes Neurologic: alert and oriented X 3 Data I reviewed Admission labs, imaging and other diagnostic tests as stated below: No results found for this or any previous visit (from the past 72 hour(s)). No results found. Radiology Assessment and Plan 1. Left foot diabetic wound ulceration with possible underlying osteomyelitis, and gangrenous changes 2. Cellulitis of left lower extremity 3. Type 2 diabetes with hyperglycemia 4. Morbid obesity - Blood Cultures done in ER - IV Abx per orders - no IV fluid - check Lactic acid - podiatry consult - Pain management - Anti-emetics PRN - Monitor BP closely -schedule bilateral venous Doppler in a.m. -start Lantus and NovoLog per sliding scale -hold glimepiride, monitor blood glucose 4 times daily - GI Prophylaxis: PPI - DVT Prophylaxis: Lovenox Plan is discussed with the patient, all questions answered. Code Status: Full The patient is admitted with a diagnosis or diagnoses of acute cellulitis and diabetic wound of left heel and current medical needs include as above. The patient has the following complex medical factors: Type 2 diabetes. Due to medical issues in assessment and plan it is reasonable that the pt will require inpatient services and a stay crossing 2 midnights or greater. Soren Renee MD 05/23/2020 1:45 AM CC: No primary care provider on file. None None documented in this encounter Procedure Notes * Stephanie Tapia MD - 05/28/2020 11:58 AM CDT Surgeon: Stephanie Tapia MD Aesthetician: Kelsey BLAND Pre-Procedure diagnosis: osteomyelitis Time out and final pre-procedure assessment completed immediately prior to start of procedure. Medications reviewed. Post-Procedure diagnosis: Same Anesthesia: Local Technical Procedure Performed: Right Basilic Vein PICC Findings: As expected Disposition: Floor Status: Stable Drain or Pack: None Additional information/Complications: None Estimated blood loss: negligible Specimen(s) removed: No Specimen During the post-procedure debrief all intra-procedure verbal order medications ordered by the proceduralist were reviewed and authenticated. Operative note was dictated: pending documented in this encounter Consult Notes * Jojo Swan - 05/29/2020 5:40 PM CDTAssociated Order(s): IP CONSULT TO HOME HEALTH CARE Per nurse outreach case manager/social work, patient discharged to [facility]. Home care is not needed at this time. Thank you for this referral. Roz Swan Admissions Associate [facility] * Chidi Madrigal DO - 05/24/2020 8:44 AM CDTAssociated Order(s): IP CONSULT TO INFECTIOUS DISEASES INFECTIOUS DISEASES CONSULTATION 05/24/2020 Name: Taye Marrero Age: [age] year old Sex: male Attending: Bridgette Mason MD Consulting: Chidi Madrigal DO Admit Date: 05/23/2020 1:09 AM Hospital Day: 1 HPI: Patient is a 64 y/o male with morbid obesity and DM evaluated for left heel ulcer. Patient reports 3 week history of left heel ulcer that has progressively developed necrosis and malodor. He denies fever, shaking chills, nausea/emesis/diarrhea He was seen by his PCP who then recommended evaluation with Dr Gonzalez ID is consulted for antibiotic management PERTINENT PAST HISTORY: No past medical history on file. No past surgical history on file. MEDICATIONS: No current outpatient medications on file. No Known Allergies REVIEW OF SYSTEMS: General ROS: negative for - chills, fatigue or fever Psychological ROS: negative ENT ROS: negative Allergy and Immunology ROS: negative Hematological and Lymphatic ROS: negative Endocrine ROS: negative Respiratory ROS: no cough, shortness of breath, or wheezing Cardiovascular ROS: no chest pain or dyspnea on exertion Gastrointestinal ROS: no abdominal pain, change in bowel habits, or black or bloody stools Genito-Urinary ROS: no dysuria, trouble voiding, or hematuria Musculoskeletal ROS: negative Neurological ROS: no TIA or stroke symptoms Dermatological ROS: negative PROBLEM LIST: Patient Active Problem List: Open wound of left heel SOCIAL HISTORY: Social History Socioeconomic History ??? Marital status: Spouse name: Not on file ??? Number of children: Not on file ??? Years of education: Not on file ??? Highest education level: Not on file Occupational History ??? Not on file Social Needs ??? Financial resource strain: Not on file ??? Food insecurity Worry: Not on file Inability: Not on file ??? Transportation needs Medical: Not on file Non-medical: Not on file Tobacco Use ??? Smoking status: Former Smoker ??? Smokeless tobacco: Never Used Substance and Sexual Activity ??? Alcohol use: Not Currently Frequency: Never ??? Drug use: Never ??? Sexual activity: Not on file Lifestyle ??? Physical activity Days per week: Not on file Minutes per session: Not on file ??? Stress: Not on file Relationships ??? Social connections Talks on phone: Not on file Gets together: Not on file Attends sikh service: Not on file Active member of club or organization: Not on file Attends meetings of clubs or organizations: Not on file Relationship status: Not on file ??? Intimate partner violence Fear of current or ex partner: Not on file Emotionally abused: Not on file Physically abused: Not on file Forced sexual activity: Not on file Other Topics Concern ??? Not on file Social History Narrative ??? Not on file FAMILY HISTORY: No family history on file. HEALTH MAINTENANCE: Health Maintenance Topic Date Due ??? HIV SCREENING Never done ??? HEPATITIS C SCREENING Never done ??? DTAP/TDAP/TD VACCINES (1 - Tdap) Never done ??? ZOSTER VACCINE (1 of 2) Never done ??? COLON CA SCREENING Never done ??? INFLUENZA VACCINE (1) Never done ??? PNEUMOCOCCAL VACCINE Aged Out ??? HEPATITIS B VACCINE Aged Out ??? HIB VACCINE Aged Out ??? MENINGOCOCCAL VACCINE Aged Out VITALS: BP 154/90 Pulse 94 Temp 97.6 ??F (36.4 ??C) (Oral) Resp 18 Ht 1.803 m (5' 11 ) Wt 153 kg (337 lb 4.9 oz) SpO2 92% BMI 47.04 kg/m2 EXAM: General appearance: AOx3, NAD, obese HEAD/ENT: ENT exam normal, no neck nodes or sinus tenderness Neck: normal, supple and no adenopathy Lungs: breath sounds normal and symmetric; no rales or wheezes Heart: regular rhythm, normal S1 and S2, without murmurs, gallops or rubs Abdomen: soft without mass, non-tender, with normal bowel sounds Extremities: left heel ulcer with necrotic change and malodor. Chronic venous stasis changes of bilateral LE Neuro: mental status normal; alert and oriented X 3; cranial nerves II - XII are grossly intact Skin:Skin color, texture, turgor normal. No rashes or lesions LABS: Recent Labs Component Name 05/23/20 0506 WBC 9.8 HGB 13.8 HCT 44.1 PLTCOUNT 273 Recent Labs Component Name 05/23/20 0506 SODIUM 134* POTASSIUM 4.4 CHLORIDE 99 CO2 26 BUN 14 CREATININE 0.86 GLUCOSE 200* CALCIUM 9.9 Recent Labs Component Name 05/23/20 0506 INR 1.2* No results for input(s): PTT in the last 35106 hours. IMAGING: IMPRESSION ?? No evidence of fracture or malalignment. No cortical bone irregularity identified. Large posterior plantar ulcer of 5 cm. 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 Superficial wound cultures will not drive antibiotic therapy * Zurdo Oconnor DPM - 05/23/2020 1:00 PM CDTAssociated Order(s): IP CONSULT TO PODIATRY Podiatry Consult CC: Left Heel Wound HPI: Podiatry was asked to see Taye Marrero, a 64 year old male, with pmh of diabetes for evaluation of a chronic left heel wound. The patient states that he has had the wound for a long time and has been treated at a wound care center in [place]. Patient seen his primary care provider who recommended he go to the emergency room, which transferred him here to [facility] to see a specialist as the previous xrays showed possible osteomyelitis and cellulitis . The patient states that the wound has been draining and malodorous more recently. Patient denies any pain to the wound at this time. Patient denies any fever, chills, nausea and vomiting at this time. PMH: No past medical history on file. PSH: No past surgical history on file. FH: No family history on file. SH: Social History Tobacco Use ??? Smoking status: Former Smoker ??? Smokeless tobacco: Never Used Substance Use Topics ??? Alcohol use: Not Currently Frequency: Never ??? Drug use: Never MEDS: No current outpatient medications on file. ALL: Patient has no known allergies. Vitals Vitals: 05/23/20 0122 05/23/20 0252 05/23/20 0512 05/23/20 0724 BP: 149/95 151/92 145/80 Pulse: (!) 118 (!) 118 107 Resp: 18 16 18 Temp: 98.5 ??F (36.9 ??C) 98.8 ??F (37.1 ??C) 98.1 ??F (36.7 ??C) SpO2: 93% 90% 91% Weight: (!) 153 kg (337 lb 4.9 oz) Height: 1.803 m (5' 11 ) Labs Recent Labs Component Name 05/23/20 0506 SODIUM 134* POTASSIUM 4.4 CHLORIDE 99 CO2 26 BUN 14 CREATININE 0.86 GLUCOSE 200* CALCIUM 9.9 ALT 11 ALKPHOS 82 AST 11 TBIL 0.5 TPROT 7.4 EGFR >60 EGFRAFR >60 ALBUMIN 2.8* No results for input(s): ESR, SEDRATE in the last 76239 hours. ROS Allergy and Immunology ROS: Allergies have been discussed with pt. Neurologically: All CN intact grossly without headache. Respiratory ROS: no cough, shortness of breath, or wheezing Dermatological ROS: positive for - skin lesion changes Musculoskeletal ROS: negative Exam General appearance: alert, cooperative, no distress Vasc: Dorsalis pedis pulse 0/4 , bilateral, posterior tibial pulse 0/4 , bilateral. Capillary refill time less than 3 seconds to the distal aspect of feet, bilaterally. Feet are dry and xerotic. Pedal hair growth is absent. Feet are warm. Severe bilateral lymphedema to bilateral LE. Neuro: Protective sensation absent via 10g monofilament to digits, bilaterally. Derm: Full thickness ulceration to left heel measuring 4.0 x 4.0 x 1.0cm. Hyperkeratotic borders. Necrotic and fibrous wound base. Serosanginous drainage noted. Fluctuance present to wound. Wound probes to bone. Positive for malodor. Erythema to bilateral to legs with severe pitting edema and hypertrophic changes to skin from knee distal. Musc: Patient denies tenderness to left heel. No gross bony abnormality noted. Radiographs: Ordered Cultures: Obtained Assessment - Chronic Neuropathic and Decubitus ulcer to left heel - Possible osteomyelitis left foot - Diabetes with peripheral neuropathy - Bialateral Lymphedema Plan - Patient seen and evaluated. - Wound cultures obtained. - Radiographs ordered. - WBC: 9.8 trending down - H.8 - ESR: >130 - CRP: 10 - Abx: Vanc/Rocephin - Dressing applied with betadine, 4x4, kerlix, and loosely compressive LETITIA bandage today. - Dressings to be changed daily with mupirocin/santyl, 4x4, kerlix, and LETITIA daily per nursing. Wound cleansed every other day. - Xrays and MRI ordered to left foot. - ID consult placed - Given condition of patients left heel, patient to require surgical debridement with possible partial resection of calcaneus. Will plan per OR schedule. Until surgery daily dressing changes and IV antibiotics for infection control. - Podiatry will continue to follow while in house. Discussed and rounded with Dr Neville who directed all patient care. Zurdo Oconnor DPM PGY-1 Thank you for allowing us to participate in the care of this patient. If you have any questions or concerns, please don't hesitate to call Podiatry. Associated attestation - Maxi Neville DPM - 05/25/2020 1:59 PM CDT Rounded with resident at bedside. Significant malodorous ulceration plantar left heel. Visible peerinside highly suspicious of osteomyelitis. Patient is clinically stable no active purulence but significant degree of wet necrosis to the plantar heel. Patient has a number of other comorbidities significant lymphedema and dermatological changes consistent with chronic uncontrolled lymphedema alongwith obesity. Will plan for surgical based debridement as OR time becomes available likely or Thursday. In the meanwhile infectious Disease consulted for antibiotic guidance likely PICC placement based on current characteristics of the ulcer and likelihood for osteomyelitis. documented in this encounter OR Notes * Operative - Rajinder Bhat DPM - 05/26/2020 12:17 AM CDT [facility] PATIENT NAME: TAYE MARRERO MR#: [id number] ROOM#: [id number] CSN: [id number] SURGEON: RAJINDER BHAT DPM SEX: M : 1955 SURGERY DATE: 05/25/2020 SURGEON: Maxi Neville DPM JUNIOR ACCOUNT EXECUTIVE: Rajinder Bhat DPM, PGY-1. PREOPERATIVE DIAGNOSES: 1. Diabetic foot ulcer, Santamaria grade 3, left foot. 2. Osteomyelitis of left calcaneus. POSTOPERATIVE DIAGNOSES: 1. Diabetic foot ulcer, Santamaria grade 3, left foot. 2. Osteomyelitis of left calcaneus. PROCEDURE: Left foot excisional ulcer debridement with partial calcanectomy. PATHOLOGY: Bone for culture and gross left calcaneus. ANESTHESIA: MAC with local. HEMOSTASIS: Manual compression. ESTIMATED BLOOD LOSS: 150 mL. MATERIALS: 2-0 nylon suture material and Surgifoam. INJECTABLES: 20 mL of 0.5% Marcaine plain. COMPLICATIONS: None. INTERVAL FINDINGS: Mild degree of osteolysis and soft bone at the lateral third of the calcaneus, host resection of the distal calcaneus, and likely retained osteomyelitis. Recommend continuous IV antibiotics post discharge, PICC line. PROCEDURE IN DETAIL: Under mild sedation, the patient was brought into the operating room and placed on the operating table in supine position. Following IV sedation, local anesthesia was obtained about the patient's left foot utilizing 20 cc of 0.5% Marcaine plain. The left foot was then scrubbed, prepped, and draped in the usual aseptic fashion. Attention was then directed to the left plantar heel where an ulcer measuring 4.5 cm x 4.5 cm x 1 cm was located. Initially, debridement of the periwound callus began utilizing sharp bone nipper and rongeur until all margins were healthy and bleeding. Attention was then directed to the base of the wound, which was necrotic, severely malodorous and gangrenous in nature. Utilizing a 14 mm VersaJet, the necrotic and gangrenous tissue was all debrided away down to partially healthy bleeding base as well as down to calcaneus. Once all necrotic tissue had been debrided away, a longitudinal incision was made on the medial aspect of the heel near the base of the calcaneus taking care to avoid all vital neural and vascular structures as well as the Achilles tendon posteriorly. The incision was deepened down to bone and a sagittal saw was utilized to make a cut through the plantar aspect of the calcaneus from the posterior plantar aspect to the area just proximal to the medial and lateral calcaneal tubercle. The cut was completed utilizing an osteotome and mallet. The area of bone excised measured roughly 2.5 cm x 3 cm x 1 cm. Next, the portion of bone was freed of all soft tissue attachments utilizing #15 blade and subsequently excised and placed on the back table to be sent for pathological examination. A curette was then utilized to debride any other portion of necrotic bone of which a cystic lesion was seen on the plantar lateral aspect of the calcaneus, which was subsequently debrided and sent for pathological examination as well, likely being remaining osteomyelitis. Next, the incision site was irrigated with copious amounts of IrriSept. All remaining soft tissue was deemed to viable with healthy bleeding base and bone. The post debridement measurements of the wound measured 4.9 cm x 4.6 cm x 2.9 cm at the level of bone. Betadine soaked Surgifoam as well as regular Surgifoam was then introduced into the wound to help with hemostasis and 2-0 nylon suture material was utilized to reapproximate and coapt the medial incision site in simple interrupted suture fashion. After the procedure, the wound area was dressed with 4 x 4 gauze, ABD pads, and multiple rolls of Kerlix. It is important to note that Dr. Neville was present throughout the entire procedure. The patient tolerated the procedure and anesthesia well, and was transferred to the recovery room with vital signs stable and vascular status intact to the left foot. DICTATOR: RAJINDER BHAT DPM KF/MODL #: [id number] * OR PostOp - Yohana Calloway RN - 05/25/2020 2:13 PM CDT PACU REPORT NOTE: INSULATION BLANKET MAKER: Yohana Groves ASCOM#: [id number] Orientation level: A&O x4 Isolation: no Procedure: LEFT HEEL ULCER DEBRIDMENT WITH PARTIAL CALCANECTOMY Surgical site/dressing: abd/kerlex roll Block: no Coats: no voided in PACU: Drains: no EBL: 100ml Accucheck: 182- no treatment per anesthesia VS: vss PONV: no O2: RA Last pain med/time: None needed DIGESTER OPERATOR/settings: n/a IV Fluids: Bag#: 1 TC: 150ml Extra Info: * OR Surgeon - Maxi Neville DPM - 05/25/2020 2:01 PM CDT Post-Operative Note Date/Time: 05/25/2020 2:01 PM Surgeon: Maxi Neville DPM Preoperative Diagnosis: Diabetic foot ulcer Santamaria grade 3 left foot, osteomyelitis left calcaneus Postoperative Diagnosis: Same Procedure: Left foot excisional ulcer debridement with partial calcanectomy Pathology: Bone for culture and gross left calcaneus Anesthesia: Mac with local Hemostasis: Manual compression EBL: 150 cc Materials: 2 0 nylon, surgafoam Injectables: 20 cc 0.5% marcaine plain Complications: None Patient tolerated procedure and anesthesia well and was transported to recovery with vital signs stable and vascular status intact to left foot Notable Findings: Mild degree osteolysis and soft bone about the lateral 3rd of the calcaneus post resection of the distal calcaneus. Likely retained osteomyelitis recommend continue with IV antibiotics post discharge, PICC line. Full note to be dictated Maxi Neville DPM Procedure Wound/Ulcer debridement Excisional ulcer debridement performed with: Versa jet, scalp all 15 and 10 blade, rongeur, sharp bone Nipper, curette Procedure/ulcer location: Left calcaneus Pre debridement measurements: 4.5 x 4.5 x 1.0 cm Depth of Ulcer/debridement: Bone Tissues debrided: Epidermis, dermis, periwound callus, fibrin, exudate and biofilm, subcu/adipose slough, gangrenous/necrotic tissue tendon/capsule/muscle/fascia, bone Local Anesthesia: see above Hemostasis: see above Blood loss was: see above Wound bed description post debridement: Mixed granular fibrotic and exposed clean bleeding bone at the wound bed Post debridement measurements: 4.9 x 4.6 x 2.9 cm Dressings were applied consisting of Betadine,surgafoam, 4 x 4 fluffs, ABDs, Kerlix, Letitia Complications: None documented in this encounter Plan of Treatment Scheduled Orders Name Type Priority Associated Diagnoses Order Schedule INITIATE RT BRONCHODILATOR PROTOCOL Respiratory Care Routine ONCE for 1 Occurrences starting 05/23/2020 until 05/23/2020 documented as of this encounter Procedures Procedure Name Priority Date/Time Associated Diagnosis Comments CARDIAC RHYTHM STRIP ORDER 05/30/2020 10:06 PM CDT GLUCOSE - POINT OF CARE Routine 05/29/2020 11:16 AM CDT SARS-COV-2 (COVID-19) RAPID MICHAEL 05/29/2020 10:54 AM CDT GLUCOSE - POINT OF CARE Routine 05/29/2020 7:48 AM CDT CBC W AUTO DIFFERENTIAL AM Draw 05/29/2020 3:37 AM CDT BASIC METABOLIC PANEL (CALCIUM TOTAL) AM Draw 05/29/2020 3:37 AM CDT GLUCOSE - POINT OF CARE Routine 05/28/2020 10:32 PM CDT GLUCOSE - POINT OF CARE Routine 05/28/2020 5:34 PM CDT GLUCOSE - POINT OF CARE Routine 05/28/2020 1:05 PM CDT IR PICC LINE INSERT Routine 05/28/2020 1 2:31 PM CDT Open wound of left heel, initial encounter GLUCOSE - POINT OF CARE Routine 05/28/2020 9:34 AM CDT GLUCOSE - POINT OF CARE Routine 05/27/2020 8:31 PM CDT GLUCOSE - POINT OF CARE Routine 05/27/2020 5:16 PM CDT GLUCOSE - POINT OF CARE Routine 05/27/2020 1:34 PM CDT GLUCOSE - POINT OF CARE Routine 05/27/2020 8:51 AM CDT GLUCOSE - POINT OF CARE Routine 05/26/2020 9:20 PM CDT GLUCOSE - POINT OF CARE Routine 05/26/2020 5:23 PM CDT GLUCOSE - POINT OF CARE Routine 05/26/2020 3:07 PM CDT GLUCOSE - POINT OF CARE Routine 05/26/2020 8:42 AM CDT CBC W AUTO DIFFERENTIAL AM Draw 05/26/2020 4:58 AM CDT RENAL FUNCTION PANEL AM Draw 05/26/2020 4:58 AM CDT GLUCOSE - POINT OF CARE Routine 05/25/2020 8:43 PM CDT GLUCOSE - POINT OF CARE Routine 05/25/2020 6:55 PM CDT GLUCOSE - POINT OF CARE Routine 05/25/2020 2:14 PM CDT CULTURE TISSUE+GRAM STAIN STAT 05/25/2020 1:43 PM CDT Diagnosis unknown CULTURE ANAEROBE STAT 05/25/2020 1:43 PM CDT Diagnosis unknown PATHOLOGY TISSUE EXAM (STL) Routine 05/25/2020 1:42 PM CDT Diagnosis unknown IRRIGATION/DEBRIDEME NT FOOT/ANKLE 05/25/2020 12:00 PM CDT Special Needs PODIATRY TRAY/TPS/VERSAJET RENAL FUNCTION PANEL AM Draw 05/25/2020 3:48 AM CDT MAGNESIUM BLOOD Routine 05/25/2020 3:48 AM CDT GLUCOSE - POINT OF CARE Routine 05/24/2020 7:43 PM CDT VANCOMYCIN LEVEL TROUGH Timed 05/24/2020 6:44 PM CDT GLUCOSE - POINT OF CARE Routine 05/24/2020 5:22 PM CDT VAS ARTERIAL ANKLE ARM INDEX Routine 05/24/2020 3:31 PM CDT Open wound of left heel, initial encounter MRI FOOT LEFT WO CONTRAST Routine 05/24/2020 2:27 PM CDT Open wound of left heel, initial encounter GLUCOSE - POINT OF CARE Routine 05/24/2020 12:09 PM CDT GLUCOSE - POINT OF CARE Routine 05/24/2020 7:52 AM CDT GLUCOSE - POINT OF CARE Routine 05/23/2020 8:29 PM CDT GLUCOSE - POINT OF CARE Routine 05/23/2020 5:14 PM CDT CULTURE TISSUE+GRAM STAIN Routine 05/23/2020 4:49 PM CDT CULTURE ANAEROBE Routine 05/23/2020 3:00 PM CDT XR CALCANEUS LEFT 2VW OR MORE Routine 05/23/2020 2:13 PM CDT Open wound of left heel, initial encounter GLUCOSE - POINT OF CARE Routine 05/23/2020 1:07 PM CDT VAS BILATERAL VENOUS DUPLEX LE Routine 05/23/2020 9:58 AM CDT Open wound of left heel, initial encounter GLUCOSE - POINT OF CARE Routine 05/23/2020 9:53 AM CDT HEMOGLOBIN A1C Routine 05/23/2020 5:06 AM CDT PT-INR Routine 05/23/2020 5:06 AM CDT CBC W AUTO DIFFERENTIAL Routine 05/23/2020 5:06 AM CDT COMPREHENSIVE METABOLIC PANEL Routine 05/23/2020 5:06 AM CDT MAGNESIUM BLOOD Routine 05/23/2020 5:06 AM CDT LACTIC ACID BLOOD AM Draw 05/23/2020 5:0 6 AM CDT documented in this encounter Results * CARDIAC RHYTHM STRIP ORDER (05/30/2020 10:06 PM CDT) Narrative 05/30/2020 10:06 PM CDT Ordered by an unspecified provider. Scanned Document CARDIAC SERVICES ORD ERABLES * (ABNORMAL) GLUCOSE - POINT OF CARE (05/29/2020 11:16 AM CDT) [facility] Glucose WB/POC 305(H) 70 - 106 mg/dL 05/29/2020 11:34 AM CDT [facility] Specimen Type Arterial/C apillary 05/29/2020 11:34 AM CDT [facility] Blood BLOOD SPECIMEN / Unknown 05/29/2020 11:16 AM CDT 05/29/2020 11:33 AM CDT Carroll Briseno MD LAB - POINT OF CARE ORDERABLES [facility] [address] [place] [address] * SARS-COV-2 (COVID-19) RAPID (05/29/2020 10:54 AM CDT) Pathologist [facility] COVID-19 PCR Not detected Not detected 05/29/2020 1:02 PM CDT [facility] Microbiology SPECIMEN FROM NASOPHARYNGEAL STRUCTURE / Unknown 05/29/2020 10:54 AM CDT 05/29/2020 12:00 PM CDT Narrative [facility] - 05/29/2020 1:02 PM CDT The [...] Carroll Briseno MD LAB - MICROBIOLOGY ORDERABLES Performing Organization Address City/[facility]/ZIP Co de Phone Number [facility] [address] [place] [address], [facility] [phone] * (ABNORMAL) GLUCOSE - POINT OF CARE (05/29/2020 7:48 AM CDT) [facility] Glucose WB/POC 287(H) 70 - 106 mg/dL 05/29/2020 9:47 AM CDT [facility] Specimen Type Arterial/C apillary 05/29/2020 9:47 AM CDT [facility] Blood BLOOD SPECIMEN / Unknown 05/29/2020 7:48 AM CDT 05/29/2020 9:47 AM CDT Carroll Briseno MD LAB - POINT OF CARE ORDERABLES [facility] [address] [place] [address] * (ABNORMAL) CBC W AUTO DIFFERENTIAL (05/29/2020 3:37 AM CDT) WBC 8.9 4.4 - 10.7 x10E9/L 05/29/2020 4:32 AM CDT [facility] WBC Corrected 05/29/2020 4:32 AM CDT [facility] RBC 5.42(H) 3.80 - 5.40 x10E12/L 05/29/2020 4:32 AM CDT [facility] Hemoglobin 14.8 12.0 - 17.6 gm/dL 05/29/2020 4:32 AM CDT [facility] Hematocrit 49.2 35.2 - 51.7 % 05/29/2020 4:32 AM CDT [facility] MCV 90.8 80.7 - 98.3 fl 05/29/2020 4:32 AM CDT [facility] MCH 27.3 26.7 - 34.0 pg 05/29/2020 4:32 AM CDT [facility] MCHC 30.1(L) 30.8 - 35.9 gm/dL 05/29/2020 4:32 AM CDT [facility] Platelet Count 356 153 - 416 x10E9/L 05/29/2020 4:32 AM CDT [facility] RDW-CV 14.7 12.1 - 14.9 % 05/29/2020 4:32 AM CDT [facility] MPV 9.6 9.4 - 12.9 fl 05/29/2020 4:32 AM CDT [facility] Neutrophils % 66.8 44.0 - 73.0 % 05/29/2020 4:32 AM CDT [facility] Lymphocytes % 16.6(L) 20.0 - 43.0 % 05/29/2020 4:32 AM CDT [facility] Monocytes % 8.9 5.0 - 13.0 % 05/29/2020 4:32 AM CDT [facility] Eosinophils % 5.6 0.0 - 6.0 % 05/29/2020 4:32 AM CDT [facility] Basophils % 1.2 0.0 - 2.0 % 05/29/2020 4:32 AM CDT [facility] Immature Granulocytes 0.9 0 - 1 % 05/29/2020 4:32 AM CDT [facility] Neutrophil Absolute 5.91 2.01 - 7.14 x10E9/L 05/29/2020 4:32 AM CDT [facility] Lymphocytes Absolute 1.47 1.07 - 3.94 x10E9/L 05/29/2020 4:32 AM CDT [facility] Monocytes Absolute 0.79 0.26 - 1.07 x10E9/L 05/29/2020 4:32 AM CDT [facility] Eosinophils Absolute 0.50(H) 0 - 0.47 x10E9/L 05/29/2020 4:32 AM CDT [facility] Basophils Absolute 0.11(H) 0 - 0.08 x10E9/L 05/29/2020 4:32 AM CDT [facility] Immature Granulocytes Absolute 0.08(H) 0.00 - 0.06 x10E9/L 05/29/2020 4:32 AM CDT [facility] nRBC Auto 0 /100 WBC 05/29/2020 4:32 AM CDT [facility] Blood BLOOD SPECIMEN / Unknown Lab Venipuncture / Unknown 05/29/2020 3:37 AM CDT 05/29/2020 4:29 AM CDT Bobby Doyle MD LAB - HEMATOLOGY ORD ERABLES [facility] [address] [place] [address] * (ABNORMAL) BASIC METABOLIC PANEL (CALCIUM TOTAL) (05/29/2020 3:37 AM CDT) [facility] Glucose 260(H) 70 - 105 mg/dL 05/29/2020 5:03 AM CDT [facility] Sodium 136 136 - 145 mmol/L 05/29/2020 5:03 AM [facility] Potassium 3.9 3.5 - 5.1 mmol/L 05/29/2020 5:03 AM [facility] Chloride 97(L) 98 - 107 mmol/L 05/29/2020 5:03 AM [facility] CO2 31 23 - 31 mmol/L 05/29/2020 5:03 AM [facility] Calcium 10.3 8.4 - 10.4 mg/dL 05/29/2020 5:03 AM [facility] Anion Gap 8 8 - 18 mmol/L 05/29/2020 5:03 AM [facility] Comment:Attention clinician: Reference Range change. BUN 19 8.4 - 25.7 mg/dL 05/29/2020 5:03 AM [facility] Creatinine 1.07 0.72 - 1.25 mg/dL 05/29/2020 5:03 AM [facility] eGFR by MDRD >60 >60 mL/min/1.7 3m2 05/29/2020 5:03 AM [facility] eGFR by MDRD >60 >60 mL/min/1.7 3m2 05/29/2020 5:03 AM [facility] Blood BLOOD SPECIMEN / Unknown Lab Venipuncture / Unknown 05/29/2020 3:37 AM CDT 05/29/2020 4:29 AM CDT Bobby Doyle MD LAB - CHEMISTRY [facility] Organization Address City/State/ZIP Co de Phone Number [facility] [address] [place] [address] * (ABNORMAL) GLUCOSE - POINT OF CARE (05/28/2020 10:32 PM CDT) [facility] Glucose WB/POC 155(H) 70 - 106 mg/dL 05/28/2020 11:54 PM T [facility] Specimen Type Arterial/C apillary 05/28/2020 11:54 PM T [facility] Blood BLOOD SPECIMEN / Unknown 05/28/2020 10:32 PM CDT 05/28/2020 11:[address] MD LAB - POINT OF CARE ORDERABLES Performing Organization Address [facility] Co de Phone Number [facility] [address] [place] [address] * (ABNORMAL) GLUCOSE - POINT OF CARE (05/28/2020 5:34 PM CDT) Glucose WB/POC 252(H) 70 - 106 mg/dL 05/28/2020 6:10 PM CDT [facility] Specimen Type Arterial/C apillary 05/28/2020 6:10 PM CDT [facility] Blood BLOOD SPECIMEN / Unknown 05/28/2020 5:34 PM CDT 05/28/2020 6:10 PM CDT Bobby Doyle MD LAB - POINT OF CARE ORDERABLES Performing Organization Address [facility] Co de Phone Number [facility] [address] [place] [address] * (ABNORMAL) GLUCOSE - POINT OF CARE (05/28/2020 1:05 PM CDT) Glucose WB/POC 305(H) 70 - 106 mg/dL 05/28/2020 1:23 PM CDT [facility] Specimen Type Arterial/C apillary 05/28/2020 1:23 PM CDT [facility] Blood BLOOD SPECIMEN / Unknown 05/28/2020 1:05 PM CDT 05/28/2020 1:23 PM CDT Bobby Doyle MD LAB - POINT OF CARE ORDERABLES Performing Organization Address [facility] Co de Phone Number [facility] [address] [place] [address] * IR PICC LINE INSERT (05/28/2020 12:31 PM CDT) Anatomical Region Laterality Modality Chest, Upper Extremity X-Ray Ang iography 05/28/2020 12:4 5 PM CDT Impressions 05/28/2020 12:46 PM CDT Successful placement of right upper extremity single-lumen CT injectable PICC line. rr: FM *Reading Radiologist: Eden Tapia on 05/28/2020 at [...] extremity single-lumen CT injectable PICC line. rr: FM *Reading Radiologist: Eden Tapia on 05/28/2020 at 12:46 PM Chidi BRUMFIELD ORDERABLES * (ABNORMAL) GLUCOSE - POINT OF CARE (05/28/2020 9:34 AM CDT) Glucose WB/POC 159(H) 70 - 106 mg/dL 05/28/2020 9:42 AM CDT [facility] Specimen Type Arterial/C apillary 05/28/2020 9:42 AM CDT [facility] Blood BLOOD SPECIMEN / Unknown 05/28/2020 9:34 AM CDT 05/28/2020 9:42 AM CDT Bobby Doyle MD LAB - POINT OF CARE ORDERABLES [facility] [address] [place] [id number] * (ABNORMAL) GLUCOSE - POINT OF CARE (05/27/2020 8:31 PM CDT) Glucose WB/POC 309(H) 70 - 106 mg/dL 05/28/2020 1:54 AM CDT [facility] Specimen Type Arterial/C apillary 05/28/2020 1:54 AM CDT [facility] Blood BLOOD SPECIMEN / Unknown 05/27/2020 8:31 PM CDT 05/28/2020 1:54 AM CDT Jose Astudillo MD LAB - POINT OF CARE ORDERABLES Performing Organization Address City/[facility]/ZIP Co de Phone Number [facility] [address] [place] [address] * (ABNORMAL) GLUCOSE - POINT OF CARE (05/27/2020 5:16 PM CDT) Glucose WB/POC 248(H) 70 - 106 mg/dL 05/27/2020 5:22 PM CDT [facility] Specimen Type Arterial/C apillary 05/27/2020 5:22 PM CDT [facility] Blood BLOOD SPECIMEN / Unknown 05/27/2020 5:16 PM CDT 05/27/2020 5:22 PM CDT Jose Astudillo MD LAB - POINT OF CARE ORDERABLES Performing Organization Address [facility] Co de Phone Number [facility] [address] [place] [address] * (ABNORMAL) GLUCOSE - POINT OF CARE (05/27/2020 1:34 PM CDT) Glucose WB/POC 178(H) 70 - 106 mg/dL 05/27/2020 1:47 PM CDT [facility] Specimen Type Arterial/C apillary 05/27/2020 1:47 PM CDT [facility] Blood BLOOD SPECIMEN / Unknown 05/27/2020 1:34 PM CDT 05/27/2020 1:47 PM CDT Jose Astudillo MD LAB - POINT OF CARE ORDERABLES Performing Organization Address City/[facility]/ZIP Co de Phone Number [facility] [address] [place] [address] * (ABNORMAL) GLUCOSE - POINT OF CARE (05/27/2020 8:51 AM CDT) Glucose WB/POC 236(H) 70 - 106 mg/dL 05/27/2020 9:39 AM CDT [facility] Specimen Type Arterial/C apillary 05/27/2020 9:39 AM CDT [facility] Blood BLOOD SPECIMEN / Unknown 05/27/2020 8:51 AM CDT 05/27/2020 9:39 AM CDT Jose Astudillo MD LAB - POINT OF CARE ORDERABLES [facility] [address] [place] [address] * (ABNORMAL) GLUCOSE - POINT OF CARE (05/26/2020 9:20 PM CDT) Glucose WB/POC 254(H) 70 - 106 mg/dL 05/26/2020 9:28 PM CDT [facility] Specimen Type Arterial/C apillary 05/26/2020 9:28 PM CDT [facility] Blood BLOOD SPECIMEN / Unknown 05/26/2020 9:20 PM CDT 05/26/2020 9:28 PM CDT Jose Astudillo MD LAB - POINT OF CARE ORDERABLES [facility] [address] [place] [address] * (ABNORMAL) GLUCOSE - POINT OF CARE (05/26/2020 5:23 PM CDT) Glucose WB/POC 305(H) 70 - 106 mg/dL 05/26/2020 5:33 PM CDT [facility] Specimen Type Arterial/C apillary 05/26/2020 5:33 PM CDT [facility] Blood BLOOD SPECIMEN / Unknown 05/26/2020 5:23 PM CDT 05/26/2020 5:33 PM CDT Jose Astudillo MD LAB - POINT OF CARE ORDERABLES [facility] [address] [place] [address] * (ABNORMAL) GLUCOSE - POINT OF CARE (05/26/2020 3:07 PM CDT) Glucose WB/POC 300(H) 70 - 106 mg/dL 05/26/2020 10:03 PM CDT [facility] Specimen Type Arterial/C apillary 05/26/2020 10:03 PM CDT [facility] Blood BLOOD SPECIMEN / Unknown 05/26/2020 3:07 PM CDT 05/26/2020 10:03 PM CDT Jose Astudillo MD LAB - POINT OF CARE ORDERABLES Performing Organization Address City/[facility]/ZIP Co de Phone Number [facility] [address] [place] [address] * (ABNORMAL) GLUCOSE - POINT OF CARE (05/26/2020 8:42 AM CDT) Glucose WB/POC 316(H) 70 - 106 mg/dL 05/26/2020 5:19 PM CDT [facility] Specimen Type Arterial/C apillary 05/26/2020 5:19 PM CDT [facility] Blood BLOOD SPECIMEN / Unknown 05/26/2020 8:42 AM CDT 05/26/2020 5:19 PM CDT Jose Astudillo MD LAB - POINT OF CARE ORDERABLES [facility] [address] [place] [address] * (ABNORMAL) CBC W AUTO DIFFERENTIAL (05/26/2020 4:58 AM CDT) WBC 10.5 4.4 - 10.7 x10E9/L 05/26/2020 5:38 AM CDT [facility] WBC Corrected 05/26/2020 5:38 [facility] RBC 5.14 3.80 - 5.40 x10E12/L 05/26/2020 5:38 AM [facility] Hemoglobin 14.1 12.0 - 17.6 gm/dL 05/26/2020 5:38 AM [facility] Hematocrit 46.5 35.2 - 51.7 % 05/26/2020 5:38 AM [facility] MCV 90.5 80.7 - 98.3 fl 05/26/2020 5:38 AM [facility] MCH 27.4 26.7 - 34.0 pg 05/26/2020 5:38 AM [facility] MCHC 30.3(L) 30.8 - 35.9 gm/dL 05/26/2020 5:38 AM [facility] Platelet Count 302 153 - 416 x10E9/L 05/26/2020 5:38 AM [facility] RDW-CV 14.6 12.1 - 14.9 % 05/26/2020 5:38 AM [facility] MPV 10.1 9.4 - 12.9 fl 05/26/2020 5:38 AM [facility] Neutrophils % 86.1(H) 44.0 - 73.0 % 05/26/2020 5:38 AM [facility] Lymphocytes % 6.8(L) 20.0 - 43.0 % 05/26/2020 5:38 AM [facility] Monocytes % 6.1 5.0 - 13.0 % 05/26/2020 5:38 AM [facility] Eosinophils % 0.2 0.0 - 6.0 % 05/26/2020 5:38 AM [facility] Basophils % 0.3 0.0 - 2.0 % 05/26/2020 5:38 AM [facility] Immature Granulocytes 0.5 0 - 1 % 05/26/2020 5:38 AM [facility] Neutrophil Absolute 9.08(H) 2.01 - 7.14 x10E9/L 05/26/2020 5:38 AM [facility] Lymphocytes Absolute 0.72(L) 1.07 - 3.94 x10E9/L 05/26/2020 5:38 AM CDT [facility] Monocytes Absolute 0.64 0.26 - 1.07 x10E9/L 05/26/2020 5:38 AM CDT [facility] Eosinophils Absolute 0.02 0 - 0.47 x10E9/L 05/26/2020 5:38 AM CDT [facility] Basophils Absolute 0.03 0 - 0.08 x10E9/L 05/26/2020 5:38 AM CDT [facility] Immature Granulocytes Absolute 0.05 0.00 - 0.06 x10E9/L 05/26/2020 5:38 AM [facility] nRBC Auto 0 /100 WBC 05/26/2020 5:38 AM [facility] Blood BLOOD SPECIMEN / Unknown Lab Venipuncture / Unknown 05/26/2020 4:58 AM CDT 05/26/2020 5:33 AM CDT Bridgette Mason MD LAB - HEMATOLOGY ORD ERABLES [facility] [address] [place] [address] * (ABNORMAL) RENAL FUNCTION PANEL (05/26/2020 4:58 AM CDT) Glucose 345(H) 70 - 105 mg/dL 05/26/2020 6:05 AM [facility] Sodium 134(L) 136 - 145 mmol/L 05/26/2020 6:05 AM [facility] Potassium 5.0 3.5 - 5.1 mmol/L 05/26/2020 6:05 AM [facility] Chloride 100 98 - 107 mmol/L 05/26/2020 6:05 AM [facility] CO2 28 23 - 31 mmol/L 05/26/2020 6:05 AM [facility] Calcium 9.7 8.4 - 10.4 mg/dL 05/26/2020 6:05 AM [facility] Anion Gap 6(L) 8 - 18 mmol/L 05/26/2020 6:05 AM [facility] Comment:Attention clinician: ??Reference Range change. BUN 18 8.4 - 25.7 mg/dL 05/26/2020 6:05 AM CDT [facility] Creatinine 1.11 0.72 - 1.25 mg/dL 05/26/2020 6:05 AM T [facility] Albumin 2.8(L) 3.2 - 4.6 gm/dL 05/26/2020 6:05 AM CDT [facility] Phosphorus 3.7 2.3 - 4.7 mg/dL 05/26/2020 6:05 AM T [facility] Comment:Attention clinician: ??Reference Range change. eGFR by MDRD >60 >60 mL/min/1.7 3m2 05/26/2020 6:05 AM T [facility] eGFR by MDRD >60 >60 mL/min/1.7 3m2 05/26/2020 6:05 AM T [facility] Blood BLOOD SPECIMEN / Unknown Lab Venipuncture / Unknown 05/26/2020 4:58 AM CDT 05/26/2020 5:30 AM CDT Bridgette Mason MD LAB - CHEMISTRY ORDE [facility] [address] [place] [address] * (ABNORMAL) GLUCOSE - POINT OF CARE (05/25/2020 8:43 PM CDT) [facility] Glucose WB/POC 322(H) 70 - 106 mg/dL 05/26/2020 1:33 AM CDT [facility] Specimen Type Arterial/C apillary 05/26/2020 1:33 AM CDT [facility] Blood BLOOD SPECIMEN / Unknown 05/25/2020 8:43 PM CDT 05/26/2020 1:33 AM CDT Bridgette Mason MD LAB - POINT OF CARE ORDERABLES [facility] [address] [place] [address] * (ABNORMAL) GLUCOSE - POINT OF CARE (05/25/2020 6:55 PM CDT) Glucose WB/POC 205(H) 70 - 106 mg/dL 05/26/2020 5:23 AM CDT [facility] Specimen Type Arterial/C apillary 05/26/2020 5:23 AM CDT [facility] Blood BLOOD SPECIMEN / Unknown 05/25/2020 6:55 PM CDT 05/26/2020 5:23 AM CDT Bridgette Mason MD LAB - POINT OF CARE ORDERABLES [facility] [address] [place] [address] * (ABNORMAL) GLUCOSE - POINT OF CARE (05/25/2020 2:14 PM CDT) Glucose WB/POC 182(H) 70 - 106 mg/dL 05/25/2020 2:19 PM CDT [facility] Specimen Type Arterial/C apillary 05/25/2020 2:19 PM CDT [facility] Blood BLOOD SPECIMEN / Unknown 05/25/2020 2:14 PM CDT 05/25/2020 2:19 PM CDT Bridgette Mason MD LAB - POINT OF CARE ORDERABLES Performing Organization Address City/[facility]/ZIP Co de Phone Number [facility] [address] [place] [address] * (ABNORMAL) CULTURE TISSUE+GRAM STAIN (05/25/2020 1:43 PM CDT) Culture Moderate Streptococcus constellatus(AA) ADAM 05/30/2020 6:04 AM CDT [facility] Culture Moderate Streptococcus anginosus(AA) ADAM 05/30/2020 6:04 AM CDT [facility] Culture Light Corynebacterium aurimucosum(AA) ADAM 05/30/2020 6:04 AM CDT [facility] Comment:No further workup pe rformed Gram Stain No organisms seen 021 6:04 AM CDT [facility] Gram Stain Moderate Polymorphonuclear cells 05/30/2020 6:04 AM CDT [facility] Gram Stain 05/30/2020 6:04 AM CDT [facility] Comment:Gpc?? Microbiology BONE SPECIMEN / Unknown 05/25/2020 1:43 PM CDT 05/25/2020 2:49 PM CDT Narrative [facility] - 05/30/2020 6:04 AM CDT Surgical Description: Left Heel Calcaneous Fragments For Culture *repeating susceptibilities on isol #1 to verify* Organism Antibiotic Method Susceptibility Streptococcus constellatus Ceftriaxone ADAM 0.5 ug/mL: Susceptible Streptococcus constellatus Clindamycin ADMA >=1 ug/mL: Resistant Streptococcus constellatus Erythromycin ADAM [...] Vancomycin ADAM 0.5 ug/mL: Susceptible Maxi Neville DPM LAB - MICROBIOLOG Y ORDERABLES [facility] [address] [place] [address], [facility] [phone] * CULTURE ANAEROBE (05/25/2020 1:43 PM CDT) Culture No anaerobic organisms isolated ADAM 05/30/2020 9:33 AM CDT [facility] Microbiology BONE SPECIMEN / Unknown 05/25/2020 1:43 PM CDT 05/25/2020 2:49 PM CDT Narrative [facility] - 05/30/2020 9:33 AM CDT Surgical Description: Left Heel Calcaneous Fragments For Culture Maxi Neville DPM LAB - MICROBIOLOG Y ORDERABLES [facility] [address] [place] [address], [facility] [phone] * PATHOLOGY TISSUE EXAM (STL) (05/25/2020 1:42 PM CDT) Case Report Surgical Pathology Report ? Case: [id number] ? Authorizing Provider: ??Maxi Neville DPM ?? Collected: ? 05/25/2020 01:42 PM ? Ordering Location: ? [facility] ? Received: ?05/28/2020 08:28 AM ? Pathologist: ? Arya Moon MD ? Specimen: ?Bone, left heel calcaneous fragments ? 05/30/2020 3:27 PM CDT [facility] Final Diagnosis Left calcaneus fragment, resection: -- Acute osteomyelitis MC 05/30/2020 3:27 PM CDT [facility] Clinical History Diabetic foot ulcer, osteomyelitis of left calcaneus 05/30/2020 3:27 PM T [facility] Gross Description One specimen received in a formalin filled container labeled left calcaneus fragment? consists of an irregular shaped 3.5 x 2.8 x 1.6 cm portion of dusky street-brown bone with attached shaggy street red rubbery tissue. 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 05/30/2020 3:27 PM [facility] Microscopic Description Sections of the left calcaneus bone reveal bone with focal necroinflammatory material, consistent with osteomyelitis. 05/30/2020 3:27 PM [facility] Disclaimer All histochemical and/or immunohistochemical results are interpreted with controls that demonstrate appropriate staining reactions before reporting results. Note on use of immunocytochemistry reagents: This test was developed and its performance characteristic determined by [facility], Department of Laboratory Medicine. It has [...] interpreted with caution. 05/30/2020 3:27 PM CDT [facility] Embedded Images 05/30/2020 3:27 PM T [facility] Pathology/Cytolo gy BONE SPECIMEN / Unknown 05/25/2020 1:42 PM CDT 05/28/2020 8:28 AM CDT Maxi Neville DPM LAB - PATHOLOGY/C YTOLOGY ORDERABLES [facility] [address] [facility] [place] [address] * MAGNESIUM BLOOD (05/25/2020 3:48 AM CDT) Magnesium 1.6 1.6 - 2.6 mg/dL 05/25/2020 4:34 AM [facility] Blood BLOOD SPECIMEN / Unknown Lab Venipuncture / Unknown 05/25/2020 3:48 AM CDT 05/25/2020 4:03 AM CDT Bridgette Mason MD LAB - CHEMISTRY JUANJO CUMMINS [facility] Organization Address City/State/ZIP Co de Phone Number [facility] [address] [facility] [place] [address] * (ABNORMAL) RENAL FUNCTION PANEL (05/25/2020 3:48 AM CDT) Pathologist [facility] Glucose 174(H) 70 - 105 mg/dL 05/25/2020 4:34 AM [facility] Sodium 135(L) 136 - 145 mmol/L 05/25/2020 4:34 AM [facility] Potassium 3.7 3.5 - 5.1 mmol/L 05/25/2020 4:34 AM [facility] Chloride 100 98 - 107 mmol/L 05/25/2020 4:34 AM [facility] CO2 26 23 - 31 mmol/L 05/25/2020 4:34 AM [facility] Calcium 10.0 8.4 - 10.4 mg/dL 05/25/2020 4:34 AM [facility] Anion Gap 9 8 - 18 mmol/L 05/25/2020 4:34 AM [facility] Comment:Attention clinician: ??Reference Range change. BUN 12 8.4 - 25.7 mg/dL 05/25/2020 4:34 AM [facility] Creatinine 0.85 0.72 - 1.25 mg/dL 05/25/2020 4:34 AM [facility] Albumin 2.9(L) 3.2 - 4.6 gm/dL 05/25/2020 4:34 AM [facility] Phosphorus 3.0 2.3 - 4.7 mg/dL 05/25/2020 4:34 AM [facility] Comment:Attention clinician: ??Reference Range change. eGFR by MDRD >60 >60 mL/min/1.7 3m2 05/25/2020 4:34 AM CDT [facility] eGFR by MDRD >60 >60 mL/min/1.7 3m2 05/25/2020 4:34 AM CDT [facility] Blood BLOOD SPECIMEN / Unknown Lab Venipuncture / Unknown 05/25/2020 3:48 AM CDT 05/25/2020 4:03 AM CDT Bridgette Mason MD LAB - CHEMISTRY ORDE MARIA G [facility] [address] [place] [address] * (ABNORMAL) GLUCOSE - POINT OF CARE (05/24/2020 7:43 PM CDT) Glucose WB/POC 193(H) 70 - 106 mg/dL 05/24/2020 9:27 PM CDT [facility] Specimen Type Arterial/C apillary 05/24/2020 9:27 PM CDT [facility] Blood BLOOD SPECIMEN / Unknown 05/24/2020 7:43 PM CDT 05/24/2020 9:27 PM CDT Bridgette Mason MD LAB - POINT OF CARE ORDERABLES Performing Organization Address [facility]/ZIP Co de Phone Number [facility] [address] [place] [address] * VANCOMYCIN LEVEL TROUGH (05/24/2020 6:44 PM CDT) Vancomycin Trough 20.0 10.0 - 20.0 ug/mL 05/24/2020 7:08 PM CDT [facility] Blood BLOOD SPECIMEN / Unknown Lab Venipuncture / Unknown 05/24/2020 6:44 PM CDT 05/24/2020 6:47 PM CDT Soren Renee MD LAB - CHEMISTRY OR DERABLES [facility] [address] [place] [address] * (ABNORMAL) GLUCOSE - POINT OF CARE (05/24/2020 5:22 PM CDT) Glucose WB/POC 257(H) 70 - 106 mg/dL 05/24/2020 5:28 PM CDT [facility] Specimen Type Arterial/C apillary 05/24/2020 5:28 PM CDT [facility] Blood BLOOD SPECIMEN / Unknown 05/24/2020 5:22 PM CDT 05/24/2020 5:27 PM CDT Bridgette Mason MD LAB - POINT OF CARE ORDERABLES [facility] [address] [place] [address] * VAS ARTERIAL ANKLE ARM INDEX (05/24/2020 3:31 PM CDT) Anatomical Region Laterality Modality Ankle / Foot, Upper Extremity In travascular Ultrasound 05/24/2020 2:54 PM CDT Narrative Procedure Note Edy Reynolds II, MD - 05/24/[address] [address] Lower Extremity Arterial Doppler Report Pat.Name: TAYE MARRERO Pat.ID: [id number] .Date: 05/24/2020 Exam Time: 2:54:00 PM Study Type:SOFIA/PVR Age: 6 1955,64Y Sex: MALE Sonogrphr: Quiana Eli RVT, STARLA Pat. Stat.:Inpatient Room: 558 CPT - 4: 73704 Reason for Study: Left foot wound History / Clinical: Obesity, Smoking - quit >6mo. Procedures: Ankle Brachial Index Race: 1 Visit ID: [id number] ++++++++++++++++++++++++++++++++++++ SUMMARY: ++++++++++++++++++++++++++++++++++++ No evidence for significant [...] DBI 0.74 Signed 05/24/2020 04:44 PM Edy Reynolds II MD (TJ), RVT Chidi Madrigal DO VASCULAR LAB ORDERAB [...] the discretion of the reading radiologist and geodetic surveyor technologist. FINDINGS: Alignment of the hindfoot and [...] the discretion of the reading radiologist and geodetic surveyor technologist. FINDINGS: Alignment of the hindfoot and [...] PM Maxi Neville DPM MR ORDERABLES * (ABNORMAL) GLUCOSE - POINT OF CARE (05/24/2020 12:09 PM CDT) Glucose WB/POC 297(H) 70 - 106 mg/dL 05/24/2020 12:25 PM CDT [facility] Specimen Type Arterial/C apillary 05/24/2020 12:25 PM CDT [facility] Blood BLOOD SPECIMEN / Unknown 05/24/2020 12:09 PM CDT 05/24/2020 12:25 PM CDT Bridgette Mason MD LAB - POINT OF CARE ORDERABLES [facility] [address] [place] [address] * (ABNORMAL) GLUCOSE - POINT OF CARE (05/24/2020 7:52 AM CDT) Glucose WB/POC 194(H) 70 - 106 mg/dL 05/24/2020 8:40 AM CDT [facility] Specimen Type Arterial/C apillary 05/24/2020 8:40 AM CDT [facility] Blood BLOOD SPECIMEN / Unknown 05/24/2020 7:52 AM CDT 05/24/2020 8:40 AM CDT Bridgette Mason MD LAB - POINT OF CARE ORDERABLES [facility] [address] [place] [address] * (ABNORMAL) GLUCOSE - POINT OF CARE (05/23/2020 8:29 PM CDT) Glucose WB/POC 241(H) 70 - 106 mg/dL 05/24/2020 12:26 AM CDT [facility] Specimen Type Arterial/C apillary 05/24/2020 12:26 AM CDT [facility] Blood BLOOD SPECIMEN / Unknown 05/23/2020 8:29 PM CDT 05/24/2020 12:26 AM CDT Bridgette Mason MD LAB - POINT OF CARE ORDERABLES [facility] [address] [place] [address] * (ABNORMAL) GLUCOSE - POINT OF CARE (05/23/2020 5:14 PM CDT) Glucose WB/POC 213(H) 70 - 106 mg/dL 05/23/2020 7:26 PM CDT [facility] Specimen Type Arterial/C apillary 05/23/2020 7:26 PM CDT [facility] Blood BLOOD SPECIMEN / Unknown 05/23/2020 5:14 PM CDT 05/23/2020 7:26 PM CDT Bridgette Mason MD LAB - POINT OF CARE ORDERABLES [facility] [address] [place] [id number] * (ABNORMAL) CULTURE TISSUE+GRAM STAIN (05/23/2020 4:49 PM CDT) Culture Heavy Streptococcus anginosus(AA) 05/27/2020 6:32 AM CDT [facility] Culture Light Proteus vulgaris(AA) ADAM 05/27/2020 6:32 AM CDT [facility] Culture Light Staphylococcus aureus(AA) ADAM 05/27/2020 6:32 AM CDT [facility] Comment:Staphylococcus aureu s methicillin-susceptible (MSSA) detected by penicillin binding protein immunoassay. Culture Heavy Streptococcus constellatus(AA) 05/27/2020 6:32 AM CDT [facility] Gram Stain Moderate Red blood cells(AA) 05/27/2020 6:32 AM CDT [facility] Gram Stain Heavy Gram-positive cocci(AA) 05/27/2020 6:32 AM CDT [facility] Gram Stain Light Gram-variable bacilli(AA) 05/27/2020 6:32 AM CDT [facility] Microbiology ENTIRE FOOT / Unknown 05/23/2020 4:49 PM CDT 05/23/2020 3:09 PM CDT Narrative Organism Antibiotic Method Susceptibility Proteus vulgaris Amikacin ADAM <=2 ug/mL: Susceptible Proteus vulgaris Ampicillin ADAM <=2 ug/mL: Susceptible Proteus vulgaris Ampicillin-sulbactam ADAM <=2 ug/mL: Susceptible Proteus vulgaris Cefepime ADAM <=1 ug/mL: Susceptible Proteus vulgaris Ceftriaxone ADAM <=1 ug/mL: Susceptible Proteus vulgaris Ciprofloxacin ADAM <=0.25 ug/mL: Susceptible Proteus vulgaris Gentamicin ADAM <=1 ug/mL: Susceptible Proteus vulgaris Meropenem ADAM <=0.25 ug/mL: Susceptible Proteus vulgaris Piperacillin-tazobactam ADAM <=4 ug/mL: Susceptible Proteus vulgaris Tobramycin ADAM <=1 ug/mL: Susceptible Proteus vulgaris Trimethoprim-sulfame thoxa zole ADAM <=20 ug/mL: Susceptible Staphylococcus aureus Clindamycin ADAM 0.25 ug/mL: Susceptible Staphylococcus aureus Doxycycline ADAM <=0.5 ug/mL: Susceptible Staphylococcus aureus Erythromycin ADAM <=0.25 ug/mL: Susceptible Staphylococcus aureus Gentamicin ADAM <=0.5 ug/mL: Susceptible Staphylococcus aureus Inducible Clindamy marisa Resistance ADAM NEG ug/mL: Neg Staphylococcus aureus Linezolid ADAM 2 ug/mL: Susceptible Staphylococcus aureus Oxacillin ADAM 0.5 ug/mL: Susceptible Staphylococcus aureus Tetracycline ADAM <=1 ug/mL: Susceptible Staphylococcus aureus Trimethoprim-sulfa methoxa zole ADAM <=10 ug/mL: Susceptible Staphylococcus aureus Vancomycin ADAM <=0.5 ug/mL: Susceptible Comment:Methicillin-suscepti ble Staphylococci are susceptible to oxacillin, nafcillin, cloxacillin,dicloxacillin, beta lactam/betalactamase inhibitor combinations, cephalosporins including cefazolin and carbapenems. Bridgette Mason MD LAB - MICROBIOLOGY O RDERAPREETHI Performing Organization Address City/[facility] Co de Phone Number [facility] [address] [place] [address], [facility] [phone] * (ABNORMAL) CULTURE ANAEROBE (05/23/2020 3:00 PM CDT) Culture Light Prevotella species(A) ADAM 05/29/2020 8:11 AM CDT [facility] Comment:Beta-lactamase posit dodie Microbiology ENTIRE FOOT / Unknown 05/23/2020 3:00 PM CDT 05/23/2020 3:09 PM CDT Bridgette Mason MD LAB - MICROBIOLOGY O RDERAPREETHI Performing Organization Address City/[facility] Co de Phone Number [facility] [address] [place] [address], [facility] [phone] * XR CALCANEUS LEFT 2VW OR MORE [...] on 05/23/2020 at 5:17 PM Maxi Neville DPKate DIAGNOSTIC IMAGIN G ORDERABLES * (ABNORMAL) GLUCOSE - POINT OF CARE (05/23/2020 1:07 PM CDT) Glucose WB/POC 260(H) 70 - 106 mg/dL 05/23/2020 1:23 PM CDT [facility] Specimen Type Arterial/C apillary 05/23/2020 1:23 PM CDT [facility] Blood BLOOD SPECIMEN / Unknown 05/23/2020 1:07 PM CDT 05/23/2020 1:23 PM CDT Bridgette Mason MD LAB - POINT OF CARE ORDERABLES [facility] [address] [place] [address] * VAS BILATERAL VENOUS DUPLEX LE (05/23/2020 9:58 AM CDT) Anatomical Region Laterality Modality Lower Extremity Intravascular Ul trasound 05/23/2020 9:32 AM CDT Narrative Procedure Note Edy Reynolds Sr., MD - 05/23/2020 [facility] [address] [place] [address] Lower Extremity Venous Ultrasound Report Pat.Name: TAYE MARRERO Pat.ID: [id number] .Date: 05/23/2020 Refer.MD: Soren Renee Exam Time: 9:32:00 AM Study Type:LE Venous Weight: 337lb Age: 6 1955,64Y Sex: MALE Sonogrphr: Nba Ag RVT, STARLA Pat. Stat.:Inpatient Room: 8 CPT - 4: 43938 Reason for Study: Edema, Bilateral leg wounds History / Clinical: Obesity Procedures: Lower Extremity Venous - Bilateral Race: 1 Visit ID: [id number] ++++++++++++++++++++++++++++++++++++ SUMMARY: ++++++++++++++++++++++++++++++++++++ No evidence of deep [...] Signed 05/23/2020 11:03 AM Edy Reynolds MD, VI Soren Renee MD VASCULAR LAB ORDER [place] * (ABNORMAL) GLUCOSE - POINT OF CARE (05/23/2020 9:53 AM CDT) Glucose WB/POC 193(H) 70 - 106 mg/dL 05/23/2020 10:00 AM CDT [facility] Specimen Type Arterial/C apillary 05/23/2020 10:00 AM CDT [facility] Blood BLOOD SPECIMEN / Unknown 05/23/2020 9:53 AM CDT 05/23/2020 10:00 AM CDT Bridgette Mason MD LAB - POINT OF CARE ORDERABLES [facility] [address] [place] [address] * (ABNORMAL) HEMOGLOBIN A1C (05/23/2020 5:06 AM CDT) Pathologist [facility] Hemoglobin A1c 11.3(H) 4.2 - 5.6 % 05/25/2020 1:24 AM T [facility] Estimated Average Glucose 278 mg/dL 05/25/2020 1:24 AM CDT [facility] Blood BLOOD SPECIMEN / Unknown Lab Venipuncture / Unknown 05/23/2020 5:06 AM CDT 05/23/2020 5:13 AM CDT Narrative [facility] - 05/25/2020 1:24 AM CDT The following cutoff levels are recommended by [place] [employer]. ?? A1c ??> 6.5% : [...] Mason MD LAB - CHEMISTRY JUANJO CUMMINS [facility] [address] [place] [address] * LACTIC ACID BLOOD (05/23/2020 5:06 AM CDT) [facility] Lactic Acid 1.1 0.5 - 2.2 mmol/L 05/23/2020 5:31 AM CDT [facility] Blood BLOOD SPECIMEN / Unknown Lab Venipuncture / Unknown 05/23/2020 5:06 AM CDT 05/23/2020 5:13 AM CDT Soren Renee MD LAB - CHEMISTRY OR DERABLES Performing Organization Address City/[facility]/ZIP Co de Phone Number [facility] [address] [place] [address] * (ABNORMAL) PT-INR (05/23/2020 5:06 AM CDT) PT 14.8 12.1 - 14.8 sec 05/23/2020 5:57 AM CDT [facility] INR 1.2(H) 0.9 - 1.1 05/23/2020 5:57 AM CDT [facility] Blood BLOOD SPECIMEN / Unknown Lab Venipuncture / Unknown 05/23/2020 5:06 AM CDT 05/23/2020 5:13 AM CDT Narrative [facility] - 05/23/2020 5:57 AM CDT Conventional Warfarin Anticoagulant Therapy: INR Reference Range: ??2.0-3.0 Intensive Warfarin Anticoagulant Therapy: INR Reference Range: ? 2.5-3.5 Soren Renee MD LAB - COAGULATION ORDERABLES Performing Organization Address City/[facility]/ZIP Co de Phone Number [facility] [address] [place] [address] * (ABNORMAL) MAGNESIUM BLOOD (05/23/2020 5:06 AM CDT) Pathologist [facility] Magnesium 1.4(L) 1.6 - 2.6 mg/dL 05/23/2020 5:35 AM CDT [facility] Blood BLOOD SPECIMEN / Unknown Lab Venipuncture / Unknown 05/23/2020 5:06 AM CDT 05/23/2020 5:13 AM CDT Soren Renee MD LAB - CHEMISTRY OR DERABLES [facility] [address] [place] [address] * (ABNORMAL) COMPREHENSIVE METABOLIC PANEL (05/23/2020 5:06 AM CDT) Pathologist [facility] Glucose 200(H) 70 - 105 mg/dL 05/23/2020 5:35 AM CDT [facility] Sodium 134(L) 136 - 145 mmol/L 05/23/2020 5:35 AM CDT [facility] Potassium 4.4 3.5 - 5.1 mmol/L 05/23/2020 5:35 AM CDT [facility] Chloride 99 98 - 107 mmol/L 05/23/2020 5:35 AM CDT [facility] CO2 26 23 - 31 mmol/L 05/23/2020 5:35 AM CDT [facility] Calcium 9.9 8.4 - 10.4 mg/dL 05/23/2020 5:35 AM CDT [facility] Anion Gap 9 8 - 18 mmol/L 05/23/2020 5:35 AM CDT [facility] Comment:Attention clinician: ??Reference Range change. BUN 14 8.4 - 25.7 mg/dL 05/23/2020 5:35 AM CDT [facility] Creatinine 0.86 0.72 - 1.25 mg/dL 05/23/2020 5:35 AM CDT [facility] Alkaline Phosphatase 82 40 - 150 U/L 05/23/2020 5:35 AM CDT [facility] Comment:Attention clinician: ??Reference Range change. ALT 11 0 - 61 U/L 05/23/2020 5:35 AM CDT [facility] AST 11 5 - 34 U/L 05/23/2020 5:35 AM CDT [facility] Protein Total 7.4 6.4 - 8.3 gm/dL 05/23/2020 5:35 AM CDT [facility] Albumin 2.8(L) 3.2 - 4.6 gm/dL 05/23/2020 5:35 AM CDT [facility] Bilirubin Total 0.5 0.2 - 1.2 mg/dL 05/23/2020 5:35 AM CDT [facility] Comment:Attention clinician: ??Reference Range change. eGFR by MDRD >60 >60 mL/min/1.7 3m2 05/23/2020 5:35 AM CDT [facility] eGFR by MDRD >60 >60 mL/min/1.7 3m2 05/23/2020 5:35 AM CDT [facility] Blood BLOOD SPECIMEN / Unknown Lab Venipuncture / Unknown 05/23/2020 5:06 AM CDT 05/23/2020 5:13 AM CDT Soren Renee MD LAB - CHEMISTRY OR DERABLES [facility] [address] [place] [address] * (ABNORMAL) CBC W AUTO DIFFERENTIAL (05/23/2020 5:06 AM CDT) WBC 9.8 4.4 - 10.7 x10E9/L 05/23/2020 5:16 AM CDT [facility] WBC Corrected 05/23/2020 5:16 AM CDT [facility] RBC 5.00 3.80 - 5.40 x10E12/L 05/23/2020 5:16 AM CDT [facility] Hemoglobin 13.8 12.0 - 17.6 gm/dL 05/23/2020 5:16 AM CDT [facility] Hematocrit 44.1 35.2 - 51.7 % 05/23/2020 5:16 AM CDT [facility] MCV 88.2 80.7 - 98.3 fl 05/23/2020 5:16 AM CDT [facility] MCH 27.6 26.7 - 34.0 pg 05/23/2020 5:16 AM CDT [facility] MCHC 31.3 30.8 - 35.9 gm/dL 05/23/2020 5:16 AM CDT [facility] Platelet Count 273 153 - 416 x10E9/L 05/23/2020 5:16 AM CDT [facility] RDW-CV 14.6 12.1 - 14.9 % 05/23/2020 5:16 AM CDT [facility] MPV 9.5 9.4 - 12.9 fl 05/23/2020 5:16 AM CDT [facility] Neutrophils % 76.6(H) 44.0 - 73.0 % 05/23/2020 5:16 AM CDT [facility] Lymphocytes % 10.7(L) 20.0 - 43.0 % 05/23/2020 5:16 AM CDT [facility] Monocytes % 9.1 5.0 - 13.0 % 05/23/2020 5:16 AM CDT [facility] Eosinophils % 2.7 0.0 - 6.0 % 05/23/2020 5:16 AM CDT [facility] Basophils % 0.6 0.0 - 2.0 % 05/23/2020 5:16 AM CDT [facility] Immature Granulocytes 0.3 0 - 1 % 05/23/2020 5:16 AM CDT [facility] Neutrophil Absolute 7.51(H) 2.01 - 7.14 x10E9/L 05/23/2020 5:16 AM CDT [facility] Lymphocytes Absolute 1.05(L) 1.07 - 3.94 x10E9/L 05/23/2020 5:16 AM CDT [facility] Monocytes Absolute 0.89 0.26 - 1.07 x10E9/L 05/23/2020 5:16 AM CDT [facility] Eosinophils Absolute 0.26 0 - 0.47 x10E9/L 05/23/2020 5:16 AM CDT [facility] Basophils Absolute 0.06 0 - 0.08 x10E9/L 05/23/2020 5:16 AM CDT [facility] Immature Granulocytes Absolute 0.03 0.00 - 0.06 x10E9/L 05/23/2020 5:16 AM CDT [facility] nRBC Auto 0 /100 WBC 05/23/2020 5:16 AM CDT [facility] Blood BLOOD SPECIMEN / Unknown Lab Venipuncture / Unknown 05/23/2020 5:06 AM CDT 05/23/2020 5:13 AM CDT Soren Renee MD LAB - HEMATOLOGY O RDERABLES [facility] [address] [place] [address] documented in this encounter Visit Diagnoses Diagnosis Open wound of left heel- Primary Open wound of left heel, initial encounter Diagnosis unknown Other unknown and unspecified cause of morbidity or mortality Cellulitis of left heel Cellulitis and abscess of foot, except toes Cellulitis of left heel Cellulitis and abscess of foot, except toes Type 2 diabetes mellitus with hyperglycemia (HCC) Type II or unspecified type diabetes mellitus without mention of complication, not stated as uncontrolled Morbid obesity (HCC) Morbid obesity * Assessment & Plan Note - Jose Astudillo MD - 05/27/2020 12:29 PM CDT Associated Problem(s): Cellulitis of left heel On ceftriaxone and anticipate she will be on it for 6 weeks * Assessment & Plan Note - Jose Astudillo MD - 05/27/2020 12:29 PM CDT Associated Problem(s): Morbid obesity (HCC) Will need to be counseled on weight management as an out patient * Assessment & Plan Note - Jose Astudillo MD - 05/27/2020 12:29 PM CDT Associated Problem(s): Open wound of left heel Had debridement done by Podiatry on May 25. ID suspicious for calcaneal osteomyelitis. Patient on Ceftriaxone. Wound culture shows moderate streptococcus constellatus Streptococcus anginosus, Proteus vulgaris and light staphylococcus Will defer antibiotics to ID. Is doing better * Assessment & Plan Note - Jose Astudillo MD - 05/27/2020 12:29 PM CDT Associated Problem(s): Type 2 diabetes mellitus with hyperglycemia (HCC) He is on glycemic management protocol and will need his lantus increased for better glycemic control * Assessment & Plan Note - Jose Astudillo MD - 05/26/2020 3:20 PM CDT Associated Problem(s): Morbid obesity (HCC) Will need to be counseled on weight management as an out patient * Assessment & Plan Note - Jose Astudillo MD - 05/26/2020 3:20 PM CDT Associated Problem(s): Type 2 diabetes mellitus with hyperglycemia (HCC) She is on glycemic management protocol and will need her lantus increased for better glycemic control * Assessment & Plan Note - Jose Astudillo MD - 05/26/2020 3:19 PM CDT Associated Problem(s): Cellulitis of left heel On ceftriaxone and anticipate she will be on it for 6 weeks * Assessment & Plan Note - Jose Astudillo MD - 05/26/2020 3:17 PM CDT Associated Problem(s): Open wound of left heel Had debridement done by Podiatry on May 25. ID suspicious for calcaneal osteomyelitis. Patient on Ceftriaxone. Wound culture shows moderate streptococcus constellatus Streptococcus anginosus, Proteus vulgaris and light staphylococcus Will defer antibiotics to ID. documented in this encounter Administered Medications Inactive Administered Medications - up to 3 most recent administrations Medication Order MAR Action Action Date Dose Rate Site 0.9% NaCl flush bag at 20 mL/hr, 20 mL, CONTINUOUS PRN, Starting on 05/28/20 at 1009, Until Tu05/29/20 at 1846, - Normal Saline Back-Up Flush Bag for patients requiring a compatible solution for intravenous piggy back, intravenous medication drips, or blood administration when there is no primary solution ordered. - Use a 250 mL NS bag., Use for: IVPB flush $ New Bag/Syringe 05/29/2020 9:29 AM CDT 20 mL 20 mL/hr $ New Bag/Syringe 05/28/2020 10:28 AM CDT 20 mL 20 mL /hr 0.9% NaCl flush bag at 20 mL/hr, 20 mL, CONTINUOUS PRN, Starting on Thu05/29/20 at 0914, Until Thu05/29/20 at 1846, - Normal Saline Back-Up Flush Bag for patients requiring a compatible solution for intravenous piggy back, intravenous medication drips, or blood administration when there is no primary solution ordered. - Use a 250 mL NS bag., Use for: IVPB flush 0.9% NaCl infusion at 20 mL/hr, Intravenous, INTRA-PROCEDURE CONTINUOUS, Starting on Thu05/28/20 at 1200, Until Thu05/29/20 at 1846, Intra-procedure (IR) $ Admin. by Other Provider 05/28/2020 11:51 AM CDT 20 mL/hr 0.9% NaCl injection 1-10 mL 1-10 mL, Intracatheter, PRN, Other, peripheral line flush, Starting on Thu05/23/20 at 0259, Until Thu05/29/20 at 1846, Flush peripheral IV catheter with 1-10 mL of normal saline before and after medications and prn to clear blood from the line or to verify patency. $ Given 05/29/2020 3:49 PM CDT 10 mL $ Given 05/26/2020 9:05 AM CDT 10 mL $ Given 05/25/2020 5:10 PM CDT 10 mL 0.9% NaCl injection 3 mL 3 mL, Intracatheter, EVERY 8 HOURS, First dose on Thu05/23/20 at 0600, Until Discontinued, Flush peripheral IV catheter with 3 mL of normal saline every 8 hours. $ Given 05/29/2020 3:49 PM CDT 3 mL $ Given 05/29/2020 6:08 AM CDT 3 mL $ Given 05/28/2020 9:05 PM CDT 3 mL aspirin chew tablet 81 mg 81 mg, Oral, DAILY, First dose on Thu05/23/20 at 0900, Until Discontinued $ Given 05/29/2020 9:10 AM CDT 81 mg $ Given 05/28/2020 10:12 AM CDT 81 mg $ Given 05/27/2020 9:39 AM CDT 81 mg cefTRIAXone (Rocephin) 2,000 mg in 0.9% NaCl IV 50 mL IVPB 2,000 mg (2 g), at 100 mL/hr, Intravenous, EVERY 24 HOURS, First dose on Thu05/23/20 at 1500, Until Discontinued, Ceftriaxone can cause precipitation when administered with calcium-containing fluids, including LR. Flush lines with a compatible fluid, such as D5W or NS before and after ceftriaxone dose. Admin through separate lumens is acceptable. , Indication for anti-infective therapy: Suspected infection, Site of anti-infective therapy: Wound, Skin/soft tissue $ New Bag/Syringe 05/23/2020 2:44 PM CDT 2,000 mg 100 mL/hr cefTRIAXone (Rocephin) 2,000 mg in 0.9% NaCl IV 50 mL IVPB 2,000 mg (2 g), at 100 mL/hr, Intravenous, EVERY 24 HOURS, First dose on Thu05/25/20 at 1000, Until Discontinued, Ceftriaxone can cause precipitation when administered with calcium-containing fluids, including LR. Flush lines with a compatible fluid, such as D5W or NS before and after ceftriaxone dose. Admin through separate lumens is acceptable. , Indication for anti-infective therapy: Documented infection, Site of anti-infective therapy: Skin/soft tissue $ New Bag/Syringe 05/29/2020 9:35 AM CDT 2,000 mg 100 mL/hr $ New Bag/Syringe 05/28/2020 10:33 AM CDT 2,000 mg 100 m L/hr $ New Bag/Syringe 05/27/2020 9:54 AM CDT 2,000 mg 100 m L/hr collagenase (Santyl) ointment Topical, DAILY, First dose on Thu05/23/20 at 1345, Until Discontinued, Completely cover the wound with a nickel thick layer of Santyl. $ Given 05/28/2020 4:30 PM CDT $ Given 05/27/2020 9:33 AM CDT $ Given 05/26/2020 9:16 AM CDT dextrose IV 12.5-25 g 12.5-25 g (25-50 mL), Intravenous, PRN, Bedside Glucose less than 70 mg/dL -If NOT able to eat and/or NPO and with IV Access, Starting on Thu05/23/20 at 0303, Until Thu05/29/20 at 1846, If NOT able to eat and/or NPO and with IV Access: For Bedside Glucose 54-69 mg/dL give 25 mls D50W IVP STAT For Bedside glucose 54 mg/dL or LESS verify with a second Bedside Glucose (from a different site) and give 50 mls D50W IVP STAT Re-check and Re-treat blood glucose EVERY 10-25 minutes until blood glucose GREATER than or equal to 80 mg/dl. NOTIFY PROVIDER OF HYPOGLYCEMIC EVENT. dilTIAZem coated beads 24hr (Cardizem Cd) capsule 240 mg 240 mg, Oral, DAILY, First dose on Thu05/23/20 at 0900, Until Discontinued, Do not crush or chew. $ Given 05/29/2020 9:11 AM CDT 240 mg $ Given 05/28/2020 10:12 AM CDT 240 mg $ Given 05/27/2020 9:39 AM CDT 240 mg docusate sodium (Colace) capsule 100 mg 100 mg, Oral, 2 TIMES DAILY, First dose (after last modification) on Thu05/28/20 at 2100, Until Discontinued $ Given 05/29/2020 9:11 AM CDT 100 mg $ Given 05/28/2020 9:05 PM CDT 100 mg DULoxetine (Cymbalta) capsule 40 mg 40 mg, Oral, DAILY, First dose on Thu05/23/20 at 0900, Until Discontinued, Capsules should be swallowed whole and not chewed, crushed, or opened to be sprinkled on food or mixed with liquids. $ Given 05/29/2020 9:10 AM CDT 40 mg $ Given 05/28/2020 10:12 AM CDT 40 mg $ Given 05/27/2020 9:39 AM CDT 40 mg enoxaparin (Lovenox) injection 40 mg 40 mg, Subcutaneous, 2 TIMES DAILY, First dose on Thu05/23/20 at 0900, Until Discontinued, (for prefilled syringes) do not expel air bubble from the syringe prior to the injection Remind Patient to not rub injection site. Could cause hematoma. $ Given 05/29/2020 9:15 AM CDT 40 mg Abdominal Tissue $ Given 05/28/2020 9:06 PM CDT 40 mg Ab d Left Lower Quadrant $ Given 05/28/2020 10:24 AM CDT 40 mg A bdominal Tissue famotidine (Pepcid) tablet 20 mg 20 mg, Oral, 2 TIMES DAILY, First dose on Thu05/23/20 at 0900, Until Discontinued $ Given 05/29/2020 9:11 AM CDT 20 m g $ Given 05/28/2020 9:05 PM CDT 20 mg $ Given 05/28/2020 10:12 AM CDT 20 mg furosemide (Lasix) injection 40 mg 40 mg, Intravenous, 2 TIMES DAILY, First dose on Thu05/24/20 at 1700, Until Discontinued $ Given 05/29/2020 4:55 PM CDT 40 mg $ Given 05/29/2020 9:13 AM CDT 40 mg $ Given 05/28/2020 5:13 PM CDT 40 mg furosemide (Lasix) tablet 40 mg 40 mg, Oral, DAILY, First dose on Thu05/23/20 at 0900, Until Discontinued $ Given 05/24/2020 9:50 AM CDT 40 mg $ Given 05/23/2020 10:33 AM CDT 40 mg gabapentin (Neurontin) capsule 300 mg 300 mg, Oral, 3 TIMES DAILY, First dose (after last modification) on Thu05/23/20 at 0415, Until Discontinued $ Given 05/29/2020 3:48 PM CDT 300 mg $ Given 05/29/2020 9:11 AM CDT 300 mg $ Given 05/28/2020 9:05 PM CDT 300 mg glucagon (Glucagen) injection 1 mg 1 mg, Intramuscular, PRN, Bedside Glucose less than 70 mg/dL - If NOT able to eat and/or NPO and withOUT IV Access, Starting on Thu05/23/20 at 0303, Until Thu05/29/20 at 1846, If NOT able to eat and/or NPO and NO IV Access: For Bedside glucose 54-69 mg/dL Give 1 mg IM or SQ For Bedside Glucose LESS than 54 mg/dl verify with a second bedside glucose (from a different site) and Give 1 mg IM or SQ Re-check and Re-treat blood glucose EVERY 10-25 minutes until blood glucose GREATER than or equal to 80 mg/dl. NOTIFY PROVIDER OF HYPOGLYCEMIC EVENT. Reconstitute vial with 1 mL of sterile water for injection for a final concentration of 1 mg/mL; shake vial gently; use immediately and discard unused portion glucose (Diabetic Use) (Dex4 Glucose) oral liquid Oral, PRN, Other, Bedside Glucose less than 70 mg/dL -If able to eat and does not have swallowing difficulties, Starting on Thu05/23/20 at 0303, Until Thu05/29/20 at 1846, If able to eat and can swallow thin liquids: For Bedside Glucose 54 - 69 mg/dL Give 15 grams of oral carbohydrates - 1 glucose liquid (see MAR) If patient refuses glucose liquid, then offer: - 4 ounces of fruit juice OR - 4 ounces non-diet soda OR - 8 ounces of fat-free milk For Bedside Glucose LESS than 54 mg/dL verify with a second Bedside Glucose (from a different site) - If pt is symptomatic, do not delay treatment If the patient is exhibiting symptoms which are not consistent with the results obtained, confirm the glucose with a STAT laboratory test. Give 30 grams of oral carbohydrates - 2 glucose liquid (see MAR) If patient refuses glucose liquid, then offer: - 8 ounces of fruit juice OR - 8 ounces non-diet soda OR - 16 ounces of fat-free milk Re-check and Re-treat blood glucose EVERY 10-25 minutes until blood glucose GREATER than or equal to 80 mg/dl. NOTIFY PROVIDER OF HYPOGLYCEMIC EVENT. glucose (Diabetic Use) oral gel Oral, PRN, Other, Bedside Glucose less than 70 mg/dL -If able to eat and does not have swallowing difficulties, Starting on Thu05/23/20 at 0303, Until Thu05/29/20 at 1846, If able to eat and is better able to swallow gel: For Bedside Glucose 54 - 69 mg/dL Give 15 grams of oral carbohydrates - 1 glucose gel (see MAR) If patient refuses glucose gel, then offer: - 4 ounces of fruit juice OR - 4 ounces non-diet soda OR - 8 ounces of fat-free milk For Bedside Glucose LESS than 54 mg/dL verify with a second Bedside Glucose (from a different site) - If pt is symptomatic, do not delay treatment If the patient is exhibiting symptoms which are not consistent with the results obtained, confirm the glucose with a STAT laboratory test. Give 30 grams of oral carbohydrates - 2 glucose gels (see MAR) If patient refuses glucose gel, then offer: - 8 ounces of fruit juice OR - 8 ounces non-diet soda OR - 16 ounces of fat-free milk Re-check and Re-treat blood glucose EVERY 10-25 minutes until blood glucose GREATER than or equal to 80 mg/dl. NOTIFY PROVIDER OF HYPOGLYCEMIC EVENT. 1 tube delivers 15 grams dextrose/carbohydrates HYDROcodone-acetaminophen ([place]) 5-325 MG tablet 1 tablet 1 tablet, Oral, EVERY 4 HOURS PRN, Moderate Pain, Starting on Thu05/23/20 at 0301, Until Thu05/29/20 at 1846 $ Given 05/29/2020 4:52 PM CDT 1 tablet $ Given 05/28/2020 9:05 PM CDT 1 tablet $ Given 05/27/2020 10:06 PM CDT 1 tablet insulin aspart (NovoLOG) pen 0-12 Units 0-12 Units, Subcutaneous, 3 TIMES DAILY WITH MEALS, First dose on Thu05/23/20 at 0800, Until Discontinued, Medium Dose : Correction Insulin. BG (mg/dL) Corrective Action LESS than 70: follow Hypoglycemic guidelines, 70-140: NO Correction insulin, 141-180: GIVE 2 units of insulin, 181-220: GIVE 4 units of insulin, 221-260: GIVE 6 units of insulin, 261-300: GIVE 8 units of insulin, 301-350: GIVE 10 units of insulin, Greater than 350: GIVE 12 units of insulin and notify physician. If the patient is NPO: DO NOT HOLD correction insulin If patient is eating meals and has orders for Mealtime insulin, combine and give at the same time. $ Given 05/29/2020 12:00 PM CDT 10 Units Abdominal Tissue $ Given 05/29/2020 9:07 AM CDT 8 Units Ab dominal Tissue $ Given 05/28/2020 6:05 PM CDT 6 Units Ab dominal Tissue insulin aspart (NovoLOG) pen 10 Units 10 Units, Subcutaneous, 3 TIMES DAILY WITH MEALS, First dose (after last modification) on Thu05/24/20 at 0800, Until Discontinued, MEALTIME INSULIN Hold MEALTIME insulin if patient is NPO or eating less than 50% of meals. -OR- if carb intake for the meal is less than 30 grams. May be given immediately before meal, during meal, or immediately after meal is eaten. Meal must be present before administration. Combine mealtime dose and correction insulin dose if needed into one injection. $ Given 05/29/2020 11:59 AM CDT 10 Units Abdominal Tissue $ Given 05/29/2020 9:07 AM CDT 10 Units Ab dominal Tissue $ Given 05/28/2020 6:03 PM CDT 10 Units Le ft Arm insulin aspart (NovoLOG) pen 6 Units 6 Units, Subcutaneous, 3 TIMES DAILY WITH MEALS, First dose on Thu05/23/20 at 0800, Until Discontinued, MEALTIME INSULIN Hold MEALTIME insulin if patient is NPO or eating less than 50% of meals. -OR- if carb intake for the meal is less than 30 grams. May be given immediately before meal, during meal, or immediately after meal is eaten. Meal must be present before administration. Combine mealtime dose and correction insulin dose if needed into one injection. $ Given 05/23/2020 5:30 PM CDT 6 Units Left Arm $ Given 05/23/2020 2:47 PM CDT 6 Units Ri ght Arm $ Given 05/23/2020 10:36 AM CDT 6 Units L eft Arm insulin glargine (Lantus) pen 15 Units 15 Units, Subcutaneous, DAILY, First dose on Thu05/23/20 at 0900, Until Discontinued, Consider calling physician for *dose reduction* if patient is made NPO or if TPN/PPN/tube feeding is held. DO NOT HOLD even if patient is NPO. . WASTE DISPOSAL INSTRUCTIONS: Black Bin Disposal required. $ Given 05/23/2020 10:38 AM CDT 15 Units Left Arm insulin glargine (Lantus) pen 20 Units 20 Units, Subcutaneous, DAILY, First dose (after last modification) on Kristy 05/24/20 at 0900, Until Discontinued, Consider calling physician for *dose reduction* if patient is made NPO or if TPN/PPN/tube feeding is held. DO NOT HOLD even if patient is NPO. . WASTE DISPOSAL INSTRUCTIONS: Black Bin Disposal required. $ Given 05/25/2020 11:09 AM CDT 20 Units Abdominal Tissue $ Given 05/24/2020 9:44 AM CDT 20 Units Ab dominal Tissue insulin glargine (Lantus) pen 25 Units 25 Units, Subcutaneous, DAILY, First dose (after last modification) on Thu05/26/20 at 0900, Until Discontinued, Consider calling physician for *dose reduction* if patient is made NPO or if TPN/PPN/tube feeding is held. DO NOT HOLD even if patient is NPO. . WASTE DISPOSAL INSTRUCTIONS: Black Bin Disposal required. $ Given 05/29/2020 9:35 AM CDT 25 Units Abdominal Tissue $ Given 05/28/2020 10:20 AM CDT 25 Units A bdominal Tissue $ Given 05/27/2020 9:34 AM CDT 25 Units Ab dominal Tissue levothyroxine (Synthroid) tablet 100 mcg 100 mcg, Oral, DAILY BEFORE BREAKFAST, First dose on Thu05/23/20 at 0700, Until Discontinued, Take in the morning on an empty stomach. Do not give within 4 hours of antacids, iron or calcium supplements. $ Given 05/29/2020 7:03 AM CDT 100 mcg $ Given 05/28/2020 6:53 AM CDT 100 mcg $ Given 05/27/2020 6:09 AM CDT 100 mcg lidocaine PF (Xylocaine Mpf) 1 % injection Infiltration, INTRA-PROCEDURE MULTIPLE, Starting on Thu05/28/20 at 1149, Until Thu05/29/20 at 1846, Intra-procedure (IR) $ Admin. by Other Provider 05/28/2020 11:51 AM CDT 50 mg lisinopril (Prinivil; Zestril) tablet 40 mg 40 mg, Oral, DAILY, First dose on Thu05/23/20 at 0900, Until Discontinued $ Given 05/29/2020 9:11 AM CDT 40 mg $ Given 05/28/2020 10:12 AM CDT 40 mg $ Given 05/27/2020 9:39 AM CDT 40 mg loratadine (Claritin) tablet 10 mg 10 mg, Oral, DAILY, First dose on Thu05/23/20 at 0900, Until Discontinued $ Given 05/29/2020 9:11 AM CDT 10 mg $ Given 05/28/2020 10:12 AM CDT 10 mg $ Given 05/27/2020 9:40 AM CDT 10 mg magnesium sulfate 2 g in 50 mL bolus 2 g, at 25 mL/hr, Administer over 120 Minutes, Intravenous, ONCE, 1 dose, On Kristy 05/24/20 at 1515, Infuse at 1 gm/hr $ New Bag/Syringe 05/24/2020 3:26 PM CDT 2 g 25 mL/hr morphine injection 2 mg 2 mg, Intravenous, EVERY 3 HOURS PRN, Severe Pain, Starting on Thu05/23/20 at 0301, Until Thu05/29/20 at 1846, If oral route is unavailable. $ Given 05/28/2020 10:07 PM CDT 2 mg $ Given 05/26/2020 9:43 PM CDT 2 mg $ Given 05/26/2020 9:03 AM CDT 2 mg mupirocin (Bactroban) 2 % ointment Topical, DAILY, First dose on Thu05/23/20 at 1345, Until Discontinued, Apply to and mix with santyl as described. $ Given 05/28/2020 4:30 PM CDT $ Given 05/27/2020 9:33 AM CDT $ Given 05/26/2020 9:16 AM CDT ondansetron (disintegrating) (Zofran ODT) tablet 4 mg 4 mg, Oral, EVERY 6 HOURS PRN, Nausea/Vomiting, Starting on Thu05/23/20 at 0302, Until Thu05/29/20 at 1846, Dissolved orally on tongue Dissolved orally on tongue ondansetron (Zofran) injection 4 mg 4 mg, Intravenous, EVERY 6 HOURS PRN, Nausea/Vomiting, Starting on Thu05/23/20 at 0302, Until Thu05/29/20 at 1846, Administer IV if patient is NPO, actively vomiting, or unable to swallow. polyethylene glycol 3350 (Miralax) packet 17 g 17 g, Oral, DAILY PRN, Constipation, Starting on Thu05/28/20 at 1745, Until Thu05/29/20 at 1846, Mix in 8 ounces of water, juice, soda, coffee or tea prior to administration $ Given 05/29/2020 9:46 AM CDT 17 g $ Given 05/28/2020 6:08 PM CDT 17 g potassium - sodium phosphates (Phos-Nak) powder 1 packet 1 packet, Oral, 3 TIMES DAILY WITH MEALS, 3 doses, First dose on Thu05/25/20 at 1800, Last dose on Thu05/26/20 at 1200, Mix contents of packet in 6 to 8 ounces of water and drink, may taste better if cold Contains Phos 8 mmol, K+ 7 mEq, Na 7 mEq per packet $ Given 05/26/2020 3:01 PM CDT 1 packet $ Given 05/26/2020 8:56 AM CDT 1 packet $ Given 05/25/2020 5:10 PM CDT 1 packet pravastatin (Pravachol) tablet 40 mg 40 mg, Oral, AT BEDTIME, First dose on Thu05/23/20 at 2100, Until Discontinued $ Given 05/28/2020 9:06 PM CDT 40 mg $ Given 05/27/2020 10:06 PM CDT 40 mg $ Given 05/26/2020 9:43 PM CDT 40 mg throat lozenge 1 lozenge 1 lozenge, Oral, EVERY 2 HOURS PRN, Sore Throat, Starting on Thu05/29/20 at 1226, Until Thu05/29/20 at 1846 traZODone (Desyrel) tablet 150 mg 150 mg, Oral, AT BEDTIME, First dose on Thu05/23/20 at 2100, Until Discontinued $ Given 05/28/2020 9:05 PM CDT 150 mg $ Given 05/27/2020 10:06 PM CDT 150 mg $ Given 05/26/2020 9:43 PM CDT 150 mg vancomycin (Vanco Ready) 1,750 mg in 350 mL NaCl IVPB 1,750 mg, at 200 mL/hr, Intravenous, EVERY 12 HOURS, First dose on Thu05/23/20 at 0700, Until Discontinued, Indication for anti-infective therapy: Suspected infection, Site of anti-infective therapy: Skin/soft tissue, Wound $ New Bag/Syringe 05/25/2020 6:38 AM CDT 1,750 mg 200 mL/hr $ New Bag/Syringe 05/24/2020 8:58 PM CDT 1,750 mg 200 mL /hr $ New Bag/Syringe 05/24/2020 6:29 AM CDT 1,750 mg 200 mL /hr documented in this encounter Active and Recently Administered Medications Times are shown in CDT. Scheduled Medication Order 05/27/2020 05/28/2020 05/29/2020 0.9% NaCl injection 3 mL(Linked Group 1) 3 mL, Intracatheter, EVERY 8 HOURS, First dose on Thu05/23/20 at 0600, Until Discontinued, Flush peripheral IV catheter with 3 mL of normal saline every 8 hours. 0542 ($ Given - Provider: Scott Barron RN)1400 (Due)2210 ($ Given - Provider: Scott Barron RN) 0641 ($ Given - Provider: Scott Barron RN - Comment: flushed upon admit)1400 (Not Administered - Provider: Marycruz Martinez RN - Reason: IV Currently Infusing)2105 ($ Given - Provider: Mirza Pritchard RN) 0608 ($ Given - Provider: Mirza Pritchard RN)1549 ($ Given - Provider: Marycruz Martinez RN) aspirin chew tablet 81 mg 81 mg, Oral, DAILY, First dose on Thu05/23/20 at 0900, Until Discontinued 0939 ($ Given - Provider: Misael Muller RN) 1012 ($ Given - Provider: Marycruz Martinez RN) 0910 ($ Given - Provider: Marycruz Martinez RN) cefTRIAXone (Rocephin) 2,000 mg in 0.9% NaCl IV 50 mL IVPB 2,000 mg (2 g), at 100 mL/hr, Intravenous, EVERY 24 HOURS, First dose on Thu05/25/20 at 1000, Until Discontinued, Ceftriaxone can cause precipitation when administered with calcium-containing fluids, including LR. Flush lines with a compatible fluid, such as D5W or NS before and after ceftriaxone dose. Admin through separate lumens is acceptable. , Indication for anti-infective therapy: Documented infection, Site of anti-infective therapy: Skin/soft tissue 0954 ($ New Bag/Syringe - Provider: Misael Muller RN)1024 (Stopped - Provider: Misael Muller RN) 1033 ($ New Bag/Syringe - Provider: Marycruz Martinez RN)1110 (Stopped - Provider: Marycruz Martinez RN) 0935 ($ New Bag/Syringe - Provider: Marycruz Martinez RN)1100 (Stopped - Provider: Marycruz Martinez RN) collagenase (Santyl) ointment Topical, DAILY, First dose on Thu05/23/20 at 1345, Until Discontinued, Completely cover the wound with a nickel thick layer of Santyl. 0933 ($ Given - Provider: Misael Muller RN) 1630 ($ Given - Provider: Marycruz Martinez RN) 0900 (Due) dilTIAZem coated beads 24hr (Cardizem Cd) capsule 240 mg 240 mg, Oral, DAILY, First dose on Thu05/23/20 at 0900, Until Discontinued, Do not crush or chew. 0939 ($ Given - Provider: Misael Muller RN) 1012 ($ Given - Provider: Marycruz Martinez RN) 0911 ($ Given - Provider: Marycruz Martinez RN) docusate sodium (Colace) capsule 100 mg 100 mg, Oral, 2 TIMES DAILY, First dose (after last modification) on Thu05/28/20 at 2100, Until Discontinued 2104 ($ Given - Provider: Mirza Pritchard RN) 0911 ($ Given - Provider: Marycruz Martinez RN) DULoxetine (Cymbalta) capsule 40 mg 40 mg, Oral, DAILY, First dose on Thu05/23/20 at 0900, Until Discontinued, Capsules should be swallowed whole and not chewed, crushed, or opened to be sprinkled on food or mixed with liquids. 0939 ($ Given - Provider: Misael Muller RN) 1012 ($ Given - Provider: Marycruz Martinez RN) 0910 ($ Given - Provider: Marycruz Martinez RN) enoxaparin (Lovenox) injection 40 mg 40 mg, Subcutaneous, 2 TIMES DAILY, First dose on Thu05/23/20 at 0900, Until Discontinued, (for prefilled syringes) do not expel air bubble from the syringe prior to the injection Remind Patient to not rub injection site. Could cause hematoma. 0939 ($ Given - Provider: Misael Muller RN)2210 ($ Given - Provider: Scott Barron RN) 1024 ($ Given - Provider: Marycruz Martinez RN)210 ($ Given - Provider: Mirza Pritchard RN) 0915 ($ Given - Provider: Marycruz Martinez RN) famotidine (Pepcid) tablet 20 mg 20 mg, Oral, 2 TIMES DAILY, First dose on Thu05/23/20 at 0900, Until Discontinued 0940 ($ Given - Provider: Misael Muller RN)2206 ($ Given - Provider: Scott Barron RN) 1012 ($ Given - Provider: Marycruz Martinez RN)2105 ($ Given - Provider: Mirza Pritchard RN) 0911 ($ Given - Provider: Marycruz Martinez RN) furosemide (Lasix) injection 40 mg 40 mg, Intravenous, 2 TIMES DAILY, First dose on Thu05/24/20 at 1700, Until Discontinued 0939 ($ Given - Provider: Misael Muller RN)1817 ($ Given - Provider: Misael Muller RN) 1006 ($ Given - Provider: Marycruz Martinez RN)1713 ($ Given - Provider: Marycruz Martinez RN) 0913 ($ Given - Provider: Marycruz Martinez RN)1655 ($ Given - Provider: Marycruz Martinez RN) gabapentin (Neurontin) capsule 300 mg 300 mg, Oral, 3 TIMES DAILY, First dose (after last modification) on Thu05/23/20 at 0415, Until Discontinued 0940 ($ Given - Provider: Misael Muller RN)1411 ($ Given - Provider: Misael Muller RN)2206 ($ Given - Provider: Scott Barron RN) 1012 ($ Given - Provider: Marycruz Martinez RN)1500 ($ Given - Provider: Marycruz Martinez RN)2105 ($ Given - Provider: Mirza Pritchard RN) 0911 ($ Given - Provider: Marycruz Martinez RN)1548 ($ Given - Provider: Marycruz Martinez RN) insulin aspart (NovoLOG) pen 0-12 Units 0-12 Units, Subcutaneous, 3 TIMES DAILY WITH MEALS, First dose on Thu05/23/20 at 0800, Until Discontinued, Medium Dose : Correction Insulin. BG (mg/dL) Corrective Action LESS than 70: follow Hypoglycemic guidelines, 70-140: NO Correction insulin, 141-180: GIVE 2 units of insulin, 181-220: GIVE 4 units of insulin, 221-260: GIVE 6 units of insulin, 261-300: GIVE 8 units of insulin, 301-350: GIVE 10 units of insulin, Greater than 350: GIVE 12 units of insulin and notify physician. If the patient is NPO: DO NOT HOLD correction insulin If patient is eating meals and has orders for Mealtime insulin, combine and give at the same time. 0938 ($ Given - Provider: Misael Muller RN)1200 (Not Administered - Provider: Misael Muller RN - Reason: Per Administration Instructions)1818 ($ Given - Provider: Misael Muller RN) 1019 ($ Given - Provider: Marycruz Martinez RN)1400 ($ Given - Provider: Marycruz Martinez RN)1805 ($ Given - Provider: Marycruz Martinez RN - Comment: 252) 0907 ($ Given - Provider: Marycruz Martinez RN)1200 ($ Given - Provider: Marycruz Martinez RN) insulin aspart (NovoLOG) pen 10 Units 10 Units, Subcutaneous, 3 TIMES DAILY WITH MEALS, First dose (after last modification) on Kristy 05/24/20 at 0800, Until Discontinued, MEALTIME INSULIN Hold MEALTIME insulin if patient is NPO or eating less than 50% of meals. -OR- if carb intake for the meal is less than 30 grams. May be given immediately before meal, during meal, or immediately after meal is eaten. Meal must be present before administration. Combine mealtime dose and correction insulin dose if needed into one injection. 0937 ($ Given - Provider: Misael Muller RN)1413 ($ Given - Provider: Misael Muller RN)1818 ($ Given - Provider: Misael Muller RN) 1020 ($ Given - Provider: Marycruz Martinez RN)1400 ($ Given - Provider: Marycruz Martinez RN)1803 ($ Given - Provider: Marycruz Martinez RN) 0907 ($ Given - Provider: Marycruz Martinez RN)1159 ($ Given - Provider: Marycruz Martinez RN) insulin glargine (Lantus) pen 25 Units 25 Units, Subcutaneous, DAILY, First dose (after last modification) on 05/26/20 at 0900, Until Discontinued, Consider calling physician for *dose reduction* if patient is made NPO or if TPN/PPN/tube feeding is held. DO NOT HOLD even if patient is NPO. . WASTE DISPOSAL INSTRUCTIONS: Black Bin Disposal required. 0934 ($ Given - Provider: Misael Muller RN) 1020 ($ Given - Provider: Marycruz Martinez RN) 0935 ($ Given - Provider: Marycruz Martinez RN) levothyroxine (Synthroid) tablet 100 mcg 100 mcg, Oral, DAILY BEFORE BREAKFAST, First dose on Thu05/23/20 at 0700, Until Discontinued, Take in the morning on an empty stomach. Do not give within 4 hours of antacids, iron or calcium supplements. 0609 ($ Given - Provider: Scott Barron RN) 0653 ($ Given - Provider: Scott Barron RN) 0703 ($ Given - Provider: Mirza Pritchard RN) lidocaine PF (Xylocaine Mpf) 1 % injection Infiltration, INTRA-PROCEDURE MULTIPLE, Starting on Thu05/28/20 at 1149, Until Thu05/29/20 at 1846, Intra-procedure (IR) 1151 ($ Admin. by Other Provider - Provider: Stephanie Tapia MD) lisinopril (Prinivil; Zestril) tablet 40 mg 40 mg, Oral, DAILY, First dose on Thu05/23/20 at 0900, Until Discontinued 0939 ($ Given - Provider: Misael Muller RN) 1012 ($ Given - Provider: Marycruz Martinez RN) 0911 ($ Given - Provider: Marycruz Martinez RN) loratadine (Claritin) tablet 10 mg 10 mg, Oral, DAILY, First dose on Thu05/23/20 at 0900, Until Discontinued 0940 ($ Given - Provider: Misael Muller RN) 1012 ($ Given - Provider: Marycruz Martinez RN) 0911 ($ Given - Provider: Marycruz Martinez RN) mupirocin (Bactroban) 2 % ointment Topical, DAILY, First dose on Thu05/23/20 at 1345, Until Discontinued, Apply to and mix with santyl as described. 0933 ($ Given - Provider: Misael Muller RN) 1630 ($ Given - Provider: Marycruz Martinez RN) 0900 (Due) pravastatin (Pravachol) tablet 40 mg 40 mg, Oral, AT BEDTIME, First dose on Thu05/23/20 at 2100, Until Discontinued 2205 ($ Given - Provider: Scott Barron RN) 2105 ($ Given - Provider: Mirza Pritchard RN) traZODone (Desyrel) tablet 150 mg 150 mg, Oral, AT BEDTIME, First dose on Thu05/23/20 at 2100, Until Discontinued 2205 ($ Given - Provider: Scott Barron RN) 2104 ($ Given - Provider: Mirza Pritchard RN) Continuous Medication Order 05/27/2020 05/28/2020 05/29/2020 0.9% NaCl infusion at 20 mL/hr, Intravenous, INTRA-PROCEDURE CONTINUOUS, Starting on Thu05/28/20 at 1200, Until Thu05/29/20 at 1846, Intra-procedure (IR) 1151 ($ Admin. by Other Provider - Provider: Stephanie Tapia MD) PRN Medication Order 05/27/2020 05/28/2020 05/29/2020 0.9% NaCl flush bag at 20 mL/hr, 20 mL, CONTINUOUS PRN, Starting on Thu05/28/20 at 1009, Until Thu05/29/20 at 1846, - Normal Saline Back-Up Flush Bag for patients requiring a compatible solution for intravenous piggy back, intravenous medication drips, or blood administration when there is no primary solution ordered. - Use a 250 mL NS bag., Use for: IVPB flush 1028 ($ New Bag/Syringe - Provider: Marycruz Martinez RN) 0929 ($ New Bag/Syringe - Provider: Marycruz Martinez RN) 0.9% NaCl flush bag at 20 mL/hr, 20 mL, CONTINUOUS PRN, Starting on Thu05/29/20 at 0914, Until Thu05/29/20 at 1846, - Normal Saline Back-Up Flush Bag for patients requiring a compatible solution for intravenous piggy back, intravenous medication drips, or blood administration when there is no primary solution ordered. - Use a 250 mL NS bag., Use for: IVPB flush 0.9% NaCl injection 1-10 mL(Linked Group 1) 1-10 mL, Intracatheter, PRN, Other, peripheral line flush, Starting on Thu05/23/20 at 0259, Until Thu05/29/20 at 1846, Flush peripheral IV catheter with 1-10 mL of normal saline before and after medications and prn to clear blood from the line or to verify patency. 1549 ($ Given - Provider: Marycruz Martinez RN) albuterol HFA (Proventil;Ventolin;Proai r) 108 (90 Base) MCG/ACT inhaler 2 puff 2 puff, Inhalation, EVERY 6 HOURS PRN, Shortness of Breath, Starting on Thu05/23/20 at 0307, Until Thu05/29/20 at 1846, Shake well before using. WASTE DISPOSAL INSTRUCTION: Send to Pharmacy for Disposal. dextrose IV 12.5-25 g 12.5-25 g (25-50 mL), Intravenous, PRN, Bedside Glucose less than 70 mg/dL -If NOT able to eat and/or NPO and with IV Access, Starting on Thu05/23/20 at 0303, Until Thu05/29/20 at 184, If NOT able to eat and/or NPO and with IV Access: For Bedside Glucose 54-69 mg/dL give 25 mls D50W IVP STAT For Bedside glucose 54 mg/dL or LESS verify with a second Bedside Glucose (from a different site) and give 50 mls D50W IVP STAT Re-check and Re-treat blood glucose EVERY 10-25 minutes until blood glucose GREATER than or equal to 80 mg/dl. NOTIFY PROVIDER OF HYPOGLYCEMIC EVENT. glucagon (Glucagen) injection 1 mg 1 mg, Intramuscular, PRN, Bedside Glucose less than 70 mg/dL - If NOT able to eat and/or NPO and withOUT IV Access, Starting on Thu05/23/20 at 0303, Until Thu05/29/20 at 1846, If NOT able to eat and/or NPO and NO IV Access: For Bedside glucose 54-69 mg/dL Give 1 mg IM or SQ For Bedside Glucose LESS than 54 mg/dl verify with a second bedside glucose (from a different site) and Give 1 mg IM or SQ Re-check and Re-treat blood glucose EVERY 10-25 minutes until blood glucose GREATER than or equal to 80 mg/dl. NOTIFY PROVIDER OF HYPOGLYCEMIC EVENT. Reconstitute vial with 1 mL of sterile water for injection for a final concentration of 1 mg/mL; shake vial gently; use immediately and discard unused portion glucose (Diabetic Use) (Dex4 Glucose) oral liquid Oral, PRN, Other, Bedside Glucose less than 70 mg/dL -If able to eat and does not have swallowing difficulties, Starting on Thu05/23/20 at 0303, Until Thu05/29/20 at 1846, If able to eat and can swallow thin liquids: For Bedside Glucose 54 - 69 mg/dL Give 15 grams of oral carbohydrates - 1 glucose liquid (see MAR) If patient refuses glucose liquid, then offer: - 4 ounces of fruit juice OR - 4 ounces non-diet soda OR - 8 ounces of fat-free milk For Bedside Glucose LESS than 54 mg/dL verify with a second Bedside Glucose (from a different site) - If pt is symptomatic, do not delay treatment If the patient is exhibiting symptoms which are not consistent with the results obtained, confirm the glucose with a STAT laboratory test. Give 30 grams of oral carbohydrates - 2 glucose liquid (see MAR) If patient refuses glucose liquid, then offer: - 8 ounces of fruit juice OR - 8 ounces non-diet soda OR - 16 ounces of fat-free milk Re-check and Re-treat blood glucose EVERY 10-25 minutes until blood glucose GREATER than or equal to 80 mg/dl. NOTIFY PROVIDER OF HYPOGLYCEMIC EVENT. glucose (Diabetic Use) oral gel Oral, PRN, Other, Bedside Glucose less than 70 mg/dL -If able to eat and does not have swallowing difficulties, Starting on Thu05/23/20 at 0303, Until Thu05/29/20 at 1846, If able to eat and is better able to swallow gel: For Bedside Glucose 54 - 69 mg/dL Give 15 grams of oral carbohydrates - 1 glucose gel (see MAR) If patient refuses glucose gel, then offer: - 4 ounces of fruit juice OR - 4 ounces non-diet soda OR - 8 ounces of fat-free milk For Bedside Glucose LESS than 54 mg/dL verify with a second Bedside Glucose (from a different site) - If pt is symptomatic, do not delay treatment If the patient is exhibiting symptoms which are not consistent with the results obtained, confirm the glucose with a STAT laboratory test. Give 30 grams of oral carbohydrates - 2 glucose gels (see MAR) If patient refuses glucose gel, then offer: - 8 ounces of fruit juice OR - 8 ounces non-diet soda OR - 16 ounces of fat-free milk Re-check and Re-treat blood glucose EVERY 10-25 minutes until blood glucose GREATER than or equal to 80 mg/dl. NOTIFY PROVIDER OF HYPOGLYCEMIC EVENT. 1 tube delivers 15 grams dextrose/carbohydrates HYDROcodone-acetaminophen ([place]) 5-325 MG tablet 1 tablet 1 tablet, Oral, EVERY 4 HOURS PRN, Moderate Pain, Starting on Thu05/23/20 at 0301, Until Thu05/29/20 at 1846 0949 ($ Given - Provider: Misael Muller, RN)2206 ($ Given - Provider: Scott Barron, EMMA) 2105 ($ Given - Provider: Mirza Pritchard, EMMA) 1652 ($ Given - Provider: Marycruz Martinez, EMMA) morphine injection 2 mg 2 mg, Intravenous, EVERY 3 HOURS PRN, Severe Pain, Starting on Thu05/23/20 at 0301, Until Thu05/29/20 at 1846, If oral route is unavailable. 2207 ($ Given - Provider: Mirza Pritchard, EMMA) ondansetron (disintegrating) (Zofran ODT) tablet 4 mg(Linked Group 2) 4 mg, Oral, EVERY 6 HOURS PRN, Nausea/Vomiting, Starting on Thu05/23/20 at 0302, Until Thu05/29/20 at 1846, Dissolved orally on tongue Dissolved orally on tongue ondansetron (Zofran) injection 4 mg(Linked Group 2) 4 mg, Intravenous, EVERY 6 HOURS PRN, Nausea/Vomiting, Starting on Thu05/23/20 at 0302, Until Thu05/29/20 at 1846, Administer IV if patient is NPO, actively vomiting, or unable to swallow. polyethylene glycol 3350 (Miralax) packet 17 g 17 g, Oral, DAILY PRN, Constipation, Starting on 05/28/20 at 1745, Until Thu05/29/20 at 1846, Mix in 8 ounces of water, juice, soda, coffee or tea prior to administration 1808 ($ Given - Provider: Marycruz Martinez RN) 0946 ($ Given - Provider: Marycruz Martinez RN) throat lozenge 1 lozenge 1 lozenge, Oral, EVERY 2 HOURS PRN, Sore Throat, Starting on Thu05/29/20 at 1226, Until Thu05/29/20 at 1846 Linked Groups Order Group 1: SALINE LOCK, INSERT AND MAINTAIN (CANCELED) Routine, CONTINUOUS, Starting on Thu05/23/20 at 0300, Until Specified, New collection And 0.9% NaCl injection 3 mLJump to med 3 mL, Intracatheter, EVERY 8 HOURS, First dose on Thu05/23/20 at 0600, Until Discontinued, Flush peripheral IV catheter with 3 mL of normal saline every 8 hours. And 0.9% NaCl injection 1-10 mLJump to med 1-10 mL, Intracatheter, PRN, Other, peripheral line flush, Starting on Thu05/23/20 at 0259, Until Thu05/29/20 at 184, Flush peripheral IV catheter with 1-10 mL of normal saline before and after medications and prn to clear blood from the line or to verify patency. Group 2: ondansetron (disintegrating) (Zofran ODT) tablet 4 mgJump to med 4 mg, Oral, EVERY 6 HOURS PRN, Nausea/Vomiting, Starting on Thu05/23/20 at 0302, Until Thu05/29/20 at 1846, Dissolved orally on tongue Dissolved orally on tongue Or ondansetron (Zofran) injection 4 mgJump to med 4 mg, Intravenous, EVERY 6 HOURS PRN, Nausea/Vomiting, Starting on Thu05/23/20 at 0302, Until Thu05/29/20 at 1846, Administer IV if patient is NPO, actively vomiting, or unable to swallow. documented in this encounter Care Teams Linter Drier Operator Relationship Specialty Start Date End Date Leeroy Sheehan DO [address] [facility] [address] [place] [phone] PCP - General Family Medicine 05/23/20 07/11/20 documented as of this encounter
--- OUTSIDE RECORDS SUMMARY | 2024-03-06 15:21 | XMS_ITS | Encounter Summary ---
Author Organization [facility] Address [address] [place] [address]. [place], [place] [id number] [place] [id number] Care Team Providers Care Free Lance Artist Name Role Phone Leeroy Sheehan DO Primary Care Provide r Encounter Details Date Type Department Care Team (Latest Contact Info) Description 10/25/2021 Travel Social History Tobacco Use Types Packs/Day Years Used Date Smoking Tobacco: Former Smokeless Tobacco: Never Alcohol Use Standard Drinks/Week Comments Never 0 (1 standard drink = 0.6 oz pur e alcohol) AUDIT-C Answer Date Recorded Q1: How often do you have a drink containing alc ohol? Never 05/22/2020 Average Number of Drinks Not on file 021 Frequency of Binge Drinking Not on file 05/01 Sex and Gender Information Value Date Recorded Sex Assigned at Not on file Legal Sex Male 1:10 PM CDT Gender Identity Not on file Sexual Orientation Not on file COVID-19 Exposure Response Date Recorded In the last 10 days, have yo u been in contact with someone who was confirmed or suspected to have Coronavirus/COVID-19? No / Unsure 10/25/2021 12:44 PM CDT documented as of this encounter Plan of Treatment Not on file documented as of this encounter Visit Diagnoses Not on filedocumented in this encounter Additional Health Concerns Infection Onset Date Last Indicated Resolved Time MRSA Comment:11/14/20 +MRSA Right heel 11/17/2020 11/17/2020 documented as of this encounter Care Teams Free Lance Artist Relationship Specialty Start Date End Date Leeroy Sheehan DO [address] [place] [phone] PCP - General FAMILY PRACTICE 12/06/19 documented as of this encounter
--- OUTSIDE RECORDS SUMMARY | 2024-03-06 15:21 | XMS_ITS | Encounter Summary ---
Author Organization [facility] Address [address] [place] [address]. [place], [place] [id number] [place] [id number] Care Team Providers Care Emulsification Operator Name Role Phone Leeroy Sheehan DO Primary Care Provide r Encounter Details Date Type Department Care Team (Latest Contact Info) Description 11/29/2021 Travel Social History Tobacco Use Types Packs/Day [...] suspected to have Coronavirus/COVID-19? No / Unsure 11/29/2021 1:46 PM CDT documented as of this encounter Plan of Treatment Not on file documented as of this encounter Visit Diagnoses Not on filedocumented in this encounter Additional Health Concerns Infection Onset Date Last Indicated Resolved Time MRSA Comment:11/14/20 +MRSA Right heel 11/17/2020 11/17/2020 documented as of this encounter Care Teams Emulsification Operator Relationship Specialty Start Date End Date Leeroy Sheehan DO [address] [place] [phone] PCP - General FAMILY PRACTICE 12/06/19 documented as of this encounter
--- OUTSIDE RECORDS SUMMARY | 2024-03-06 15:21 | XMS_ITS | Encounter Summary ---
Author Organization [facility] Address [address] [place] [address]. [place], [place] [id number] [place] [id number] Care Team Providers Care Pattern Molder Name Role Phone Leeroy Sheehan DO Primary Care Provide r Encounter Details Date Type Department Care Team (Latest Contact Info) Description 11/28/2020 5:31 PM CDT - 11/28/2020 11:59 PM CDT Hospital Encounter [facility] [address] [facility] [place] [address] Esteban Daigle MD Discharge Disposition: Home or Self Care (Routine Discharge) Social History Tobacco Use Types Packs/Day Years [...] have Coronavirus / COVID-19? No / Unsure 11/28/2020 2:00 PM CDT documented as of this encounter Medications at Time of Discharge aspirin EC (ECOTRIN) 81 MG tablet Take 81 mg by mouth daily. furosemide 40 MG tablet Take 40 mg by mouth daily. 04/27/2020 gabapentin 300 MG capsule Take 300 mg by mouth 4 (four) times daily. 04/25/2020 HYDROcodone-acet aminophen (NORCO) 5-325 MG tablet Take 1 tablet by mouth every 4 (four) hours as needed for Pain. MAX: 4 TABS/DAY. 04/30/2020 levothyroxine 100 MCG tablet Take 100 mcg by mouth daily. 05/19/2020 metFORMIN 1000 MG tablet Take 1,000 mg by mouth 2 (two) times daily with meals. 03/28/2020 pravastatin 40 MG tablet Take 40 mg by mouth nightly at bedtime. 03/08/2020 traZODone 150 MG tablet Take 150 mg by mouth daily. 06/24/2019 albuterol sulfate HFA 108 (90 Base) MCG/ACT inhaler Inhale 2 puffs into the lungs every 4 (four) hours as needed for Shortness of breath. 01/28/2020 2 DULoxetine HCl 40 MG CAPSULE ENTERIC COATED PARTICLES Take 40 mg by mouth daily. 05/04/2020 2 glimepiride 4 MG tablet Take 4 mg by mouth daily. 02/27/2020 2 lisinopril 40 MG tablet Take 40 mg by mouth daily. 03/13/2020 2 loratadine 10 MG tablet Take 10 mg by mouth daily. 2 multi vitamin/minerals tablet Take 1 tablet by mouth daily. 2 omeprazole EC 20 MG tablet Take 20 mg by mouth daily. 2 TIADYLT ER 240 MG 24 hr capsule Take 240 mg by mouth daily. 03/13/2020 2 documented as of this encounter Plan of Treatment Not on file documented as of this encounter Procedures Procedure Name Priority Date/Time Associated Diagnosis Comments HC BODY FLUID CULTURE Routine 11/28/2020 2:56 PM CDT Skin ulcer of heel, limited to breakdown of skin, unspecified laterality ([facility]) documented in this encounter Results * (ABNORMAL) CULTURE, WOUND, W/GRAM STAIN (11/28/2020 2:56 PM CDT) SPEC DESCRIPTION HEEL, LEFT 11/28/2020 5:31 PM CDT [facility] SPECIAL REQUESTS NO SPECIAL REQUEST 11/28/2020 5:31 PM CDT [facility] GRAM STAIN RESULT NO WHITE BLOOD CELLS SEEN 11/29/2020 9:01 AM CDT [facility] GRAM STAIN RESULT FEW RBC'S SEEN 11/29/2020 9:01 AM CDT [facility] GRAM STAIN RESULT NO ORGANISMS SEEN 11/29/2020 9:01 AM CDT [facility] CULTURE RESULT LIGHT GROWTH OF MYROIDES SPECIES (A) 12/01/2020 9:30 AM CDT [facility] CULTURE RESULT SPARSE GROWTH OF ENTEROCOCCUS SPECIES (A) 12/01/2020 9:30 AM CDT [facility] CULTURE RESULT HEAVY GROWTH OF DIPHTHEROIDS SAVING ISOLATE FOR 5 DAYS. CONTACT MICROBIOLOGY DEPARTMENT IF FURTHER WORKUP IS INDICATED. (A) 12/01/2020 9:30 AM T [facility] CULTURE RESULT NOTE: WOUND AND TISSUE CULTURES ARE ROUTINELY SCREENED FOR AEROBIC ORGANISMS ONLY. 12/01/2020 9:30 AM T [facility] LEFT HEEL STRUCTURE / Unknown 11/28/2020 2:56 PM CDT 11/28/2020 5:32 PM CDT Narrative Organism Antibiotic Method Susceptibility Myroides species CEFTAZIDIME ADAM (VITEK) >=64: Resistant Myroides species CEFTRIAXONE ADAM (VITEK) >=64: Resistant Myroides species CEFEPIME ADAM (VITEK) Sensitive Myroides species AMIKACIN ADAM (VITEK) >=64: Resistant Myroides species GENTAMICIN ADAM (VITEK) >=16: Resistant Myroides species MEROPENEM ADAM (VITEK) 1: Sensitive Myroides species PIPRACIL/TAZO ADAM (VITEK) 16: Sensitive Myroides species TRIMETH-SULFAMETH. ADAM (VITEK) >=320: Resistant Myroides species LEVOFLOXACIN ADAM (VITEK) 0.5: Sensitive Myroides species TOBRAMYCIN ADAM (VITEK) >=16: Resistant Enterococcus species AMPICILLIN ADAM (VITEK) >=32: Resistant Enterococcus species GENT. SYNERGY SCREEN ADAM (VITEK) Resistant Enterococcus species PENICILLIN G ADAM (VITEK) 32: Resistant Enterococcus species VANCOMYCIN ADAM (VITEK) <=0.5: Sensitive us Esteban Daigle MD MICROBIOLOGY - GENERAL ORDERABLE S Final Result [facility] [address] [place] [address], documented in this encounter Visit Diagnoses Diagnosis Skin ulcer of heel, limited to breakdown of skin, unspecified laterality ([facility]) documented in this encounter Additional Health Concerns Infection Onset Date Last Indicated Resolved Time MRSA Comment:11/14/20 +MRSA Right heel 11/17/2020 11/17/2020 documented as of this encounter Care Teams Pattern Molder Relationship Specialty Start Date End Date Leeroy Sheehan DO [address] [place] [id number] PCP - General FAMILY PRACTICE 12/06/19 documented as of this encounter
--- OUTSIDE RECORDS SUMMARY | 2024-03-06 15:21 | XMS_ITS | Encounter Summary ---
Author Organization [facility] Address [address] [place] [address]. [place], [place] [id number] [place] [id number] Care Team Providers Care High Tension Tester Name Role Phone Leeroy Sheehan DO Primary Care Provide r Reason for Visit * Reason Comments Chest Pain Encounter Details Date Type Department Care Team (Late st Contact Info) Description 12/30/2021 1:02 PM CDT - 12/30/2021 9:35 PM CDT Emergency [facility] [place] [address] Sabina Mohan MD [address] [place] [address] Gilles Velazco MD [address] [place], [place] [id number] Chest Pain Discharge Disposition: Home or Self Care (Routine [...] Recorded In the last 10 days, have moreno u been in contact with someone who was confirmed or suspected to have Coronavirus/COVID-19? No / Unsure 12/30/2021 1:11 PM CDT documented as of this encounter Last Filed Vital Signs Vital Sign Reading Time Taken Comments Blood Pressure 142/90 12/30/2021 6:00 PM CDT Pulse 68 12/30/2021 6:00 PM CDT Temperature 36.7 ??C (98 ??F) 12/30/2021 1:12 PM CDT Respiratory Rate 18 12/30/2021 6:00 PM CDT Oxygen Saturation 97% 12/30/2021 6:00 PM CDT Inhaled Oxygen Concentration - - Weight - - Height - - Body Mass Index - - documented in this encounter Discharge Instructions * Attachments The following attachments cannot be sent through Care Everywhere. * Chest Pain (Italian) documented in this encounter Medications at Time of Discharge aspirin EC (ECOTRIN) 81 MG tablet Take 81 mg by mouth daily. carvedilol (COREG) 25 MG tablet Take 25 mg by mouth 2 (two) times daily. clotrimazole-beta methasone (LOTRISONE) cream Apply to the area around the wound 60 g 1 2 furosemide 40 MG tablet Take 40 mg by mouth daily. 1 gabapentin 300 MG capsule Take 300 mg by mouth 4 (four) times daily. 1 HYDROcodone-aceta minophen (NORCO) 5-325 MG tablet Take 1 tablet by mouth every 4 (four) hours as needed for Pain. MAX: 4 TABS/DAY. 1 insulin aspart (NOVOLOG) 100 UNIT/ML injection (VIAL) Inject into the skin see administration instructions. Three times a day per Sliding Scale: If blood sugar is <70, call MD If blood sugar 70 to 200, give 0 units If blood sugar 201 to 250, give 4 units If blood sugar 251 to 300, give 5 units If blood sugar 301 to 350, give 6 units If blood sugar is 351 to 400, give 8 units If blood sugar is >400, call MD insulin NPH (HUMULIN N) 100 UNIT/ML injection Inject 20 Units into the skin 2 (two) times daily. ipratropium-albut latoay (DUONEB) 0.5-2.5 (3) MG/3ML Solution Take 3 mLs by nebulization every 4 (four) hours as needed. levothyroxine 100 MCG tablet Take 100 mcg by mouth daily. 1 metFORMIN 1000 MG tablet Take 1,000 mg by mouth 2 (two) times daily with meals. 1 pantoprazole EC (PROTONIX) 40 MG tablet Take 40 mg by mouth 2 (two) times a day. pravastatin 40 MG tablet Take 40 mg by mouth nightly at bedtime. 1 silver sulfADIAZINE (SILVADENE) 1 % cream Apply topically see administration instructions. Clean RT anterior moncada with NS daily and prn; apply SSD, collagen powder, and aminata-alg with gauze wrap tolnaftate (TINACTIN) 1 % powder Apply topically 2 (two) times daily. traZODone 150 MG tablet Take 150 mg by mouth daily. 0 documented as of this encounter ED Notes * Debbie Quiñones - 12/30/2021 5:18 PM CDT [facility] ETA for transport 1845 * Gilles Velazco MD - 12/30/2021 5:09 PM CDT Was endorsed patient with chest pain. Was endorsed follow-up on labs. Chest x-ray negative 2 sets Trop negative Patient reports he is chest pain-free upon reassessment. Denies any complaints now. No shortness ofbreath. Saturating 98% on room air. Will discharge follow-up with his PCP Diagnostic Studies / Procedures ELECTROCARDIOGRAMS: Results for orders placed or performed during the hospital encounter of 12/30/21 [address] 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1955 Requested By: SABINA MOHAN Order Number: [id number] Reading : Gabriele Glover Measurements Intervals [place] Rate: 76 P: [place]: 0 QRS: 73 QRSD: 101 T: 8 QT: 379 QTc: 426 Interpretive Statements ATRIAL FIBRILLATION LOW QRS VOLTAGE IN PRECORDIAL LEADS [QRS DEFLECTION < 1.0 mV IN CHEST LEADS] ANTEROSEPTAL MYOCARDIAL INFARCTION , OF INDETERMINATE AGE [40+ ms Q WAVE IN V1-V4] No previous ECG available for comparison Other ischemic changes, not STEMI ySd Davis PA-C CRITICAL ALERT ISSUED ON 12-30-2021 13:07:54 ECG 12 lead Narrative Anna Mariaasmita [address] Test Date: 2021-12-30 Pat Name: GIANCARLO MARRERO Department: 41 Room: [facility] 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: [id number] : 1955 Requested By: SABINA MOHAN Order Number: [id number] Reading MD: Gabriele Glover Measurements Intervals [place] Rate: 74 P: [place]: 0 QRS: 69 QRSD: 114 T: 25 QT: 410 QTc: 456 Interpretive Statements ATRIAL FIBRILLATION LOW QRS VOLTAGE IN PRECORDIAL LEADS [QRS DEFLECTION < 1.0 mV IN CHEST LEADS] MODERATE INTRAVENTRICULAR CONDUCTION DELAY [105+ ms QRS DURATION, 80+ ms Q/S IN V1/V2, NO Q AND 60+ ms R IN I/aVL/V5/V6] CRITICAL ALERT ISSUED ON 12-30-2021 15:35:18 Compared to ECG 12/30/2021 13:05:40 Intraventricular conduction delay now present Myocardial infarct finding no longer present LABORATORY STUDIES: Results for orders placed or performed during the hospital encounter of 12/30/21 CBC W/DIFF AUTOMATED Result Value Ref Range WBC 8.0 4.5 - 11.0 x10'3/uL RBC 5.11 4.70 - 6.10 x10'6/uL HGB 14.2 14.0 - 18.0 G/DL HCT 45.4 43.0 - 54.0 % MCV 88.8 80.0 - 94.0 FL MCH 27.8 27.0 - 31.0 PG MCHC 31.3 (L) 32.0 - 36.0 G/DL RDW 13.0 11.5 - 14.5 % PLT 285 130 - 400 x10'3/uL MPV 10.3 9.3 - 12.2 FL DIFFERENTIAL TYPE AUTOMATED DIFFERENTIAL NEUTROPHILS 68.8 % LYMPHOCYTES 16.4 % MONOCYTES 7.9 % EOSINOPHILS 5.4 % BASOPHILS 1.1 % IMMATURE GRANS 0.4 % ABS. NEUTROPHILS TOTAL 5.52 1.80 - 7.70 x10'3/uL ABS. LYMPHOCYTES 1.31 1.00 - 4.80 x10'3/uL ABS. MONOCYTES 0.63 0.30 - 0.82 x10'3/uL ABS. EOSINOPHILS 0.43 0.04 - 0.54 x10'3/uL ABS. BASOPHILS 0.09 (H) 0.01 - 0.08 x10'3/uL ABS. IMMATURE GRANULOCYTES 0.03 0.00 - 0.49 x10'3/uL COMPREHENSIVE METABOLIC PANEL Result Value Ref Range GLUCOSE 123 (H) 70 - 99 MG/DL BUN 33 (H) 7 - 18 MG/DL CREATININE S/P/B 1.27 0.7 - 1.3 MG/DL SODIUM 136 136 - 145 MMOL/L POTASSIUM 4.3 3.5 - 5.1 MMOL/L CHLORIDE S/P/B 103 100 - 108 MMOL/L CO2 26.7 21 - 32 MMOL/L CALCIUM 10.1 8.5 - 10.1 MG/DL BILIRUBIN TOTAL S/P/B 0.3 0.2 - 1.2 MG/DL TOTAL PROTEIN S/P/B 7.7 6.4 - 8.2 G/DL ALBUMIN S/P/B 2.5 (L) 3.4 - 5.0 G/DL AST 9 (L) 15 - 37 U/L ALT 11 (L) 16 - 60 U/L ALKALINE PHOSPHATASE S/P/B 68 50 - 136 U/L ANION GAP 6.3 5 - 15 MMOL/L BUN CREATININE RATIO 26.0 6 - 26 A/G RATIO 0.5 (L) 1.0 - 2.0 RATIO GFR ESTIMATE 62 (L) >90 ML/MIN/1.73 M2 TROPONIN, QUANT Result Value Ref Range TROPONIN I HIGH SENSITIVITY 14 <79 ng/L TROPONIN, QUANT Result Value Ref Range TROPONIN I HIGH SENSITIVITY 10 <79 ng/L IMAGING STUDIES XR CHEST PORTABLE Final Result by User, [id number] (12/30 1331) 12/30/2021, 1318 hours. HISTORY: Chest pain and palpitations. History of atrial fibrillation. EXAM: Erect portable AP chest. Correlation to study 05/22/2020. FINDINGS: The heart is enlarged. There is mild central vascular congestion with perivascular edema predominantly in a perihilar distribution. No mass or consolidating infiltrate in either lung. No pleural effusion. No pneumothorax. Mild ectasia the aorta. IMPRESSION: Cardiac enlargement with mild central vascular congestion. Ordered By: SABINA MOHAN Interpreted By: Robin Soto MD, 12/30/2021 1:29 PM ED Course / Medical Decision Making Clinical Impression Chest pain (Primary) Disposition: Discharge Gilles Velazco MD 12/30/211711 * Cuauhtemoc Thompson RN - 12/30/2021 4:26 PM CDT EKG/TROP 1503 * Sabina Mohan MD - 12/30/2021 2:48 PM CDTAssociated Order(s): EKG Reading Chief Complaint Chief Complaint Patient presents with ??? Chest Pain History of Present Illness Patient is a 66-year-old male who presents to the emergency department [facility] for evaluation of chest pain. Patient reports onset of symptoms around midnight. He reports symptoms subsided about the time he arrived in the emergency department. He located the painin the midsternal region. Patient has history of atrial fibrillation but has refused anticoagulation due to history of falls. [facility] as he has been unable to ambulate. Patient is not currently experiencing any shortness of breath and does not have any known coronary history that he is aware of. Notes chronic bilateral lower extremity edema thatsignificant other notes is currently worse since he has been in prison. She reports she normally is able to manage it better when he is at home. Medical History ALLERGIES: No Known Allergies MEDICATIONS: Prior to Admission medications Medication Sig Start Date End Date Taking? Authorizing Provider aspirin EC (ECOTRIN) 81 MG tablet Take 81 mg by mouth daily. Yes Doc [facility] carvedilol (COREG) 25 MG tablet Take 25 mg by mouth 2 (two) times daily. Yes GENERICPROVIDER, DEFAULT HISTORY furosemide 40 MG tablet Take 40 mg by mouth daily. 04/27/20 Yes Doc [facility] gabapentin 300 MG capsule Take 300 mg by mouth 4 (four) times daily. 04/25/20 Yes Doc [facility] HYDROcodone-acetaminophen (NORCO) 5-325 MG tablet Take 1 tablet by mouth every 4 (four) hours as needed for Pain. MAX: 4 TABS/DAY. 04/30/20 Yes Doc [facility] insulin aspart (NOVOLOG) 100 UNIT/ML injection (VIAL) Inject into the skin see administration instructions. Three times a day per Sliding Scale: If blood sugar is <70, call MD If blood sugar 70 to 200, give 0 units If blood sugar 201 to 250, give 4 units If blood sugar 251 to 300, give 5 units If blood sugar 301 to 350, give 6 units If blood sugar is 351 to 400, give 8 units If blood sugar is >400, call MD Yes GENERICPROVIDER, DEFAULT HISTORY insulin NPH (HUMULIN N) 100 UNIT/ML injection Inject 20 Units into the skin 2 (two) times daily. Yes GENERICPROVIDER, DEFAULT HISTORY ipratropium-albuterol (DUONEB) 0.5-2.5 (3) MG/3ML Solution Take 3 mLs by nebulization every 4 (four) hours as needed. Yes GENERICPROVIDER, DEFAULT HISTORY levothyroxine 100 MCG tablet Take 100 mcg by mouth daily. 05/19/20 Yes Doc [facility] metFORMIN 1000 MG tablet Take 1,000 mg by mouth 2 (two) times daily with meals. 03/28/20 Yes Doc [facility] pantoprazole EC (PROTONIX) 40 MG tablet Take 40 mg by mouth 2 (two) times a day. Yes GENERICPROVIDER, DEFAULT HISTORY pravastatin 40 MG tablet Take 40 mg by mouth nightly at bedtime. 03/08/20 Yes Doc [facility] silver sulfADIAZINE (SILVADENE) 1 % cream Apply topically see administration instructions. Clean RTanterior moncada with NS daily and prn; apply SSD, collagen powder, and aminata-alg with gauze wrap Yes GENERICPROVIDER, DEFAULT HISTORY tolnaftate (TINACTIN) 1 % powder Apply topically 2 (two) times daily. Yes GENERICPROVIDER, DEFAULT HISTORY traZODone 150 MG tablet Take 150 mg by mouth daily. 06/24/19 Yes Doc [facility] clotrimazole-betamethasone (LOTRISONE) cream Apply to the area around the wound Patient not taking: Reported on 12/30/2021 09/27/21 Fany May NP PAST MEDICAL HISTORY: Past Medical History: Diagnosis Date ??? A-fib (CMS/HCC) ??? Diabetes mellitus (CMS/HCC) ??? High cholesterol ??? Hypertension PAST SURGICAL HISTORY: Past Surgical History: Procedure Laterality Date ??? APPENDECTOMY ??? BACK SURGERY FAMILY HISTORY: No family history on file. SOCIAL HISTORY: Social History Tobacco Use ??? Smoking status: Former Smoker ??? Smokeless tobacco: Never Used Substance Use Topics ??? Alcohol use: Never ??? Drug use: Never Review of Systems Review of Systems Respiratory: Negative for shortness of breath. Cardiovascular: Positive for chest pain, palpitations and leg swelling. All other systems reviewed and are negative. Physical Exam Filed Vitals: 12/30/21 1312 BP: 123/69 Pulse: 72 Resp: 20 Temp: 98 ??F (36.7 ??C) TempSrc: Oral SpO2: 98% Physical Exam Vitals and nursing note reviewed. Constitutional: General: He is not in acute distress. Appearance: He is well-developed. He is obese. He is not toxic-appearing. HENT: Head: Normocephalic and atraumatic. Cardiovascular: Rate and Rhythm: Normal rate. Rhythm irregular. Pulmonary: Effort: Pulmonary effort is normal. Breath sounds: Normal breath sounds. Abdominal: General: Bowel sounds are normal. Palpations: Abdomen is soft. Tenderness: There is no abdominal tenderness. Musculoskeletal: General: Normal range of motion. Right lower leg: Edema present. Left lower leg: Edema present. Skin: General: Skin is warm and dry. Comments: Bilateral lower extremity venous stasis dermatitis Neurological: Mental Status: He is alert and oriented to person, place, and time. Psychiatric: Mood and Affect: Mood normal. Behavior: Behavior normal. Diagnostic Studies / Procedures ELECTROCARDIOGRAMS: Results for orders placed or performed during the hospital encounter of 12/30/21 [address] 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1955 Requested By: SABINA MOHAN Order Number: [id number] Reading MD: Measurements Intervals [place] Rate: 76 P: [place]: 0 QRS: 73 QRSD: 101 T: 8 QT: 379 QTc: 426 Interpretive Statements ATRIAL FIBRILLATION LOW QRS VOLTAGE IN PRECORDIAL LEADS [QRS DEFLECTION < 1.0 mV IN CHEST LEADS] ANTEROSEPTAL MYOCARDIAL INFARCTION , OF INDETERMINATE AGE [40+ ms Q WAVE IN V1-V4] No previous ECG available for comparison LABORATORY STUDIES: Results for orders placed or performed during the hospital encounter of 12/30/21 CBC W/DIFF AUTOMATED Result Value Ref Range WBC 8.0 4.5 - 11.0 x10'3/uL RBC 5.11 4.70 - 6.10 x10'6/uL HGB 14.2 14.0 - 18.0 G/DL HCT 45.4 43.0 - 54.0 % MCV 88.8 80.0 - 94.0 FL MCH 27.8 27.0 - 31.0 PG MCHC 31.3 (L) 32.0 - 36.0 G/DL RDW 13.0 11.5 - 14.5 % PLT 285 130 - 400 x10'3/uL MPV 10.3 9.3 - 12.2 FL DIFFERENTIAL TYPE AUTOMATED DIFFERENTIAL NEUTROPHILS 68.8 % LYMPHOCYTES 16.4 % MONOCYTES 7.9 % EOSINOPHILS 5.4 % BASOPHILS 1.1 % IMMATURE GRANS 0.4 % ABS. NEUTROPHILS TOTAL 5.52 1.80 - 7.70 x10'3/uL ABS. LYMPHOCYTES 1.31 1.00 - 4.80 x10'3/uL ABS. MONOCYTES 0.63 0.30 - 0.82 x10'3/uL ABS. EOSINOPHILS 0.43 0.04 - 0.54 x10'3/uL ABS. BASOPHILS 0.09 (H) 0.01 - 0.08 x10'3/uL ABS. IMMATURE GRANULOCYTES 0.03 0.00 - 0.49 x10'3/uL COMPREHENSIVE METABOLIC PANEL Result Value Ref Range GLUCOSE 123 (H) 70 - 99 MG/DL BUN 33 (H) 7 - 18 MG/DL CREATININE S/P/B 1.27 0.7 - 1.3 MG/DL SODIUM 136 136 - 145 MMOL/L POTASSIUM 4.3 3.5 - 5.1 MMOL/L CHLORIDE S/P/B 103 100 - 108 MMOL/L CO2 26.7 21 - 32 MMOL/L CALCIUM 10.1 8.5 - 10.1 MG/DL BILIRUBIN TOTAL S/P/B 0.3 0.2 - 1.2 MG/DL TOTAL PROTEIN S/P/B 7.7 6.4 - 8.2 G/DL ALBUMIN S/P/B 2.5 (L) 3.4 - 5.0 G/DL AST 9 (L) 15 - 37 U/L ALT 11 (L) 16 - 60 U/L ALKALINE PHOSPHATASE S/P/B 68 50 - 136 U/L ANION GAP 6.3 5 - 15 MMOL/L BUN CREATININE RATIO 26.0 6 - 26 A/G RATIO 0.5 (L) 1.0 - 2.0 RATIO GFR ESTIMATE 62 (L) >90 ML/MIN/1.73 M2 TROPONIN, QUANT Result Value Ref Range TROPONIN I HIGH SENSITIVITY 14 <79 ng/L IMAGING STUDIES XR CHEST PORTABLE Final Result by User, [id number] (12/30 1331) 12/30/2021, 1318 hours. HISTORY: Chest pain and palpitations. History of atrial fibrillation. EXAM: Erect portable AP chest. Correlation to study 05/22/2020. FINDINGS: The heart is enlarged. There is mild central vascular congestion with perivascular edema predominantly in a perihilar distribution. No mass or consolidating infiltrate in either lung. No pleural effusion. No pneumothorax. Mild ectasia the aorta. IMPRESSION: Cardiac enlargement with mild central vascular congestion. Ordered By: SABINA MOHAN Interpreted By: Robin Soto MD, 12/30/2021 1:29 PM EKG Reading Date/Time: 12/30/2021 1:05 PM Performed by: Sabina Mohan MD Authorized by: Sabina Mohan MD Interpreted by ED physician Rhythm: atrial fibrillation Rate: normal BPM: 76 Conduction: conduction normal Comments: Anterior Q waves, no ST elevation noted ED Course / Medical Decision Making MDM Number of Diagnoses or Management Options Diagnosis management comments: Patient turned over to Dr. Velazco at 1400 shift change, awaiting lab results, which will include second troponin level. Amount and/or Complexity of Data Reviewed Clinical lab tests: ordered and reviewed Tests in the radiology section of CPT??: ordered and reviewed Tests in the medicine section of CPT??: ordered and reviewed Independent visualization of images, tracings, or specimens: yes Clinical Impression None Disposition: Data Unavailable Sabina Mohan MD 12/30/21 1452 * Iliana Allison RN - 12/30/2021 1:05 PM CDT To ER triage 1 per EMS from [place] for c/o intermittent chest pain and palpitations since 0000. Hx; a-fib, but pt refuses blood thinners due to frequent falls. * Dean Garcia RN - 12/30/2021 1:02 PM CDT Bed: TG1 Expected date: Expected time: Means of arrival: Comments: [id number] documented in this encounter Plan of Treatment Not on file documented as of this encounter Procedures Procedure Name Priority Date/Time Associated Diagnosis Comments TROPONIN, QUANT STAT 12/30/2021 3:33 PM CDT ECG 12-LEAD STAT 12/30/2021 3:25 PM CDT COMPREHENSIVE METABOLIC PANEL STAT 12/30/2021 1:31 PM CDT CBC W/DIFF AUTOMATED STAT 12/30/2021 1:31 PM CDT TROPONIN, QUANT STAT 12/30/2021 1:31 PM CDT XR CHEST PORTABLE STAT 12/30/2021 1:2 7 PM CDT ECG 12-LEAD STAT 12/30/2021 1:05 PM CDT ELECTROCARDIOGRAM REPORT Routine 022 1:05 PM CDT documented in this encounter Results * TROPONIN, QUANT (12/30/2021 3:33 PM CDT) Pathologist [facility] TROPONIN I HIGH SENSITIVITY 10 <79 ng/L 12/30/2021 4:12 PM CDT [facility] Comment: HIGH DOSES OF BIOTIN, TROPONIN-SPECIFIC AUTOANTIBODIES, AND ANTIBODY THERAPY CONTAINING HAMA MAY INTERFERE WITH THIS TEST RESULT. CORRELATION TO CLINICAL HISTORY AND PRESENTATION RECOMMENDED. 12/30/2021 3:33 PM CDT Sabina Mohan MD LABORATORY Final Resu lt [facility] [address] [place] [address], [place] [phone] * ECG 12 lead (12/30/2021 3:25 PM CDT) 12/30/2021 3:25 PM CDT Narrative [facility] - 12/30/2021 3:58 PM CDT ?[facility] ? [address] [place] ? Test Date: ?2021-12-30 Pat Name: ? GIANCARLO MARRERO ?Department: ?? 41 ? Room: ? EXAM20 Gender: ? Male ? 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 [id number] : ?1955 ? Requested By: SABINA MOHAN Order Number: [id number] ? Reading MD: ?? Gabriele Glover ? Measurements Intervals ?[place] ? Rate: ? 74 ? P: ? [place]: ? 0 ?QRS: ?69 QRSD: ? 114 ?T: ?25 QT: ? 410 ? QTc: ?456 ? Interpretive Statements ATRIAL FIBRILLATION LOW QRS VOLTAGE IN PRECORDIAL LEADS ??[QRS DEFLECTION < 1.0 mV IN CHEST LEADS] MODERATE INTRAVENTRICULAR CONDUCTION DELAY ??[105+ ms QRS DURATION, 80+ ms Q/S IN V1/V2, NO Q AND 60+ ms R IN I/aVL/V5/V6] CRITICAL ALERT ISSUED ON 12-30-2021 15:35:18 Compared to ECG 12/30/2021 13:05:40 Intraventricular conduction delay now present Myocardial infarct finding no longer present Procedure Note Gabriele Glover MD - 12/30/[address] Test Date: 2021-12-30 Pat Name: GIANCARLO MARRERO Department: 41 Room: [facility] 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: [id number] : 1955 Requested By: SABINA MOHAN Order Number: [id number] Reading MD: Gabriele Glover Measurements Intervals [place] Rate: 74 P: [place]: 0 QRS: 69 QRSD: 114 T: 25 QT: 410 QTc: 456 Interpretive Statements ATRIAL FIBRILLATION LOW QRS VOLTAGE IN PRECORDIAL LEADS [QRS DEFLECTION < 1.0 mV IN CHESTLEADS] MODERATE INTRAVENTRICULAR CONDUCTION DELAY [105+ ms QRS DURATION, 80+ msQ/S IN V1/V2, NO Q AND 60+ ms R IN I/aVL/V5/V6] CRITICAL ALERT ISSUED ON 12-30-2021 15:35:18 Compared to ECG 12/30/2021 13:05:40 Intraventricular conduction delay now present Myocardial infarct finding no longer present us Sabina Mohan MD ECG ORDERABLES Final Resu lt [facility] ([place] * TROPONIN, QUANT (12/30/2021 1:31 PM CDT) [facility] TROPONIN I HIGH SENSITIVITY 14 <79 ng/L 12/30/2021 2:15 PM CDT [facility] Comment: HIGH DOSES OF BIOTIN, TROPONIN-SPECIFIC AUTOANTIBODIES, AND ANTIBODY THERAPY CONTAINING HAMA MAY INTERFERE WITH THIS TEST RESULT. CORRELATION TO CLINICAL HISTORY AND PRESENTATION RECOMMENDED. 12/30/2021 1:31 PM CDT us Sabina Mohan MD LABORATORY Final Resu lt [facility] [address] [place] [address], [place] [phone] * (ABNORMAL) COMPREHENSIVE METABOLIC PANEL (12/30/2021 1:31 PM CDT) [facility] GLUCOSE 123(H) 70 - 99 MG/DL 12/30/2021 2:15 PM CDT [facility] BUN 33(H) 7 - 18 MG/DL 12/30/2021 2:15 PM CDT [facility] CREATININE S/P/B 1.27 0.7 - 1.3 MG/DL 12/30/2021 2:15 PM CDT [facility] SODIUM S/P/B 136 136 - 145 MMOL/L 12/30/2021 2:15 PM CDT [facility] POTASSIUM S/P/B 4.3 3.5 - 5.1 MMOL/L 12/30/2021 2:15 PM CDT [facility] CHLORIDE S/P/B 103 100 - 108 MMOL/L 12/30/2021 2:15 PM CDT [facility] CO2 26.7 21 - 32 MMOL/L 12/30/2021 2:15 PM CDT [facility] CALCIUM S/P/B 10.1 8.5 - 10.1 MG/DL 12/30/2021 2:15 PM T [facility] BILIRUBIN TOTAL S/P/B 0.3 0.2 - 1.2 MG/DL 12/30/2021 2:15 PM T [facility] Comment: THIS ASSAY IS NOT RECOMMENDED FOR PATIENTS UNDERGOING TREATMENT WITH ELTROMBOPAG DUE TO THE POTENTIAL FOR FALSELY ELEVATED RESULTS. TOTAL PROTEIN S/P/B 7.7 6.4 - 8.2 G/DL 12/30/2021 2:15 PM CDT [facility] ALBUMIN S/P/B 2.5(L) 3.4 - 5.0 G/DL 12/30/2021 2:15 PM T [facility] AST 9(L) 15 - 37 U/L 12/30/2021 2:15 PM T [facility] ALT 11(L) 16 - 60 U/L 12/30/2021 2:15 PM T [facility] ALKALINE PHOSPHATASE S/P/B 68 50 - 136 U/L 12/30/2021 2:15 PM T [facility] ANION GAP 6.3 5 - 15 MMOL/L 12/30/2021 2:15 PM T [facility] BUN CREATININE RATIO 26.0 6 - 26 12/30/2021 2:15 PM T [facility] A/G RATIO 0.5(L) 1.0 - 2.0 RATIO 12/30/2021 2:15 PM T [facility] GFR ESTIMATE 62(L) >90 ML/MIN/1.7 3 M2 12/30/2021 2:15 PM T [facility] Comment: NOTE: eGFR is not calculated for patients <18 years of age. This is an estimated GFR calculation using the new CKD EPI creatinine equation without race and so does not require a correction factor for race. This estimated GFR should not be used for calculating drug doses. 12/30/2021 1:31 PM CDT us Sabina Mohan MD LABORATORY Final Resu lt [facility] [address] [place] [address], * (ABNORMAL) CBC W/DIFF AUTOMATED (12/30/2021 1:31 PM CDT) WBC 8.0 4.5 - 11.0 x10'3/uL 12/30/2021 1:48 PM CDT [facility] RBC 5.11 4.70 - 6.10 x10'6/uL 12/30/2021 1:48 PM CDT [facility] HGB 14.2 14.0 - 18.0 G/DL 12/30/2021 1:48 PM CDT [facility] HCT 45.4 43.0 - 54.0 % 12/30/2021 1:48 PM CDT [facility] MCV 88.8 80.0 - 94.0 FL 12/30/2021 1:48 PM CDT [facility] MCH 27.8 27.0 - 31.0 PG 12/30/2021 1:48 PM CDT [facility] MCHC 31.3(L) 32.0 - 36.0 G/DL 12/30/2021 1:48 PM CDT [facility] RDW 13.0 11.5 - 14.5 % 12/30/2021 1:48 PM CDT [facility] PLT 285 130 - 400 x10'3/uL 12/30/2021 1:48 PM CDT [facility] MPV 10.3 9.3 - 12.2 FL 12/30/2021 1:48 PM CDT [facility] DIFFERENTIAL TYPE AUTOMATED DIFFERENTIAL 12/30/2021 1:48 PM CDT [facility] NEUTROPHILS % 68.8 % 12/30/2021 1:48 PM CDT [facility] LYMPHOCYTES % 16.4 % 12/30/2021 1:48 PM CDT [facility] MONOCYTES % 7.9 % 12/30/2021 1:48 PM CDT [facility] EOSINOPHILS 5.4 % 12/30/2021 1:48 PM CDT [facility] BASOPHILS 1.1 % 12/30/2021 1:48 PM CDT [facility] IMMATURE GRANS % 0.4 % 12/31/19 1:48 PM CDT [facility] ABS. NEUTROPHILS TOTAL 5.52 1.80 - 7.70 x10'3/uL 12/30/2021 1:48 PM CDT [facility] ABS. LYMPHOCYTES 1.31 1.00 - 4.80 x10'3/uL 12/30/2021 1:48 PM CDT [facility] ABS. MONOCYTES 0.63 0.30 - 0.82 x10'3/uL 12/30/2021 1:48 PM CDT [facility] ABS. EOSINOPHILS 0.43 0.04 - 0.54 x10'3/uL 12/30/2021 1:48 PM CDT [facility] ABS. BASOPHILS 0.09(H) 0.01 - 0.08 x10'3/uL 12/30/2021 1:48 PM CDT [facility] ABS. IMMATURE GRANULOCYTES 0.03 0.00 - 0.49 x10'3/uL 12/30/2021 1:48 PM CDT [facility] 12/30/2021 1:31 PM CDT Sabina Mohan MD LABORATORY Final Resu lt [facility] [address] [place] [address], * XR CHEST PORTABLE (12/30/2021 1:27 PM CDT) Anatomical Region Laterality Modality Chest Radiographic Dorene ging 12/30/2021 1:29 PM CDT Impressions 12/30/2021 1:30 PM CDT IMPRESSION: Cardiac enlargement with mild central vascular congestion. Ordered By: SABINA MOHAN Interpreted By: Robin Soto MD, 12/30/2021 1:29 PM Narrative 12/30/2021 1:30 PM CDT 12/30/2021, 1318 hours. HISTORY: Chest pain and palpitations. History of atrial fibrillation. EXAM: Erect portable AP chest. Correlation to study 05/22/2020. FINDINGS: The heart is enlarged. There is mild central vascular congestion with perivascular edema predominantly in a perihilar distribution. No mass or consolidating infiltrate in either lung. No pleural effusion. No pneumothorax. Mild ectasia the aorta. Procedure Note Robin Soto MD - 12/30/2021 12/30/2021, 1318 hours. HISTORY: Chest pain and palpitations. History of atrial fibrillation. EXAM: Erect portable AP chest. Correlation to study 05/22/2020. FINDINGS: The heart is enlarged. There is mild central vascular congestionwith perivascular edema predominantly in a perihilar distribution. No massor consolidating infiltrate in either lung. No pleural effusion. Nopneumothorax. Mild ectasia the aorta. IMPRESSION: Cardiac enlargement with mild central vascular congestion. Ordered By: SABINA MOHAN Interpreted By: Robin Soto MD, 12/30/2021 1:29 PM us Sabina Mohan MD GENERAL IMAGING Final Resu lt * ECG 12 lead (12/30/2021 1:05 PM CDT) 12/30/2021 1:05 PM CDT Narrative [facility]'Asmita ROBERTS (JULIAN) RAD - 12/30/2021 3:54 PM CDT ?Anna Maria`asmita Kurt ? [address] [place] ? Test Date: ?2021-12-30 Pat Name: ? GIANCARLO MARRERO ?Department: ?? 41 ? Room: ? EXAM20 Gender: ? Male ? 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 : ?1955 ? Requested By: SABINA MOHAN Order Number: [id number] ? Doreen JAMES: ?? Gabriele Glover ? Measurements Intervals ?[place] ? Rate: ? 76 ? P: ? [place]: ? 0 ?QRS: ?73 QRSD: ? 101 ?T: ?8 QT: ? 379 ? QTc: ?426 ? 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: : 1955 Requested By: SABINA MOHAN Order Number: [id number] Reading MD: Gabriele Glover Measurements Intervals [place] Rate: 76 P: [place]: 0 QRS: 73 QRSD: 101 T: 8 QT: 379 QTc: 426 Interpretive Statements ATRIAL FIBRILLATION LOW QRS VOLTAGE IN PRECORDIAL LEADS [QRS DEFLECTION < 1.0 mV IN CHESTLEADS] ANTEROSEPTAL MYOCARDIAL INFARCTION , OF INDETERMINATE AGE [40+ ms Q WAVEIN V1-V4] No previous ECG available for comparison Other ischemic changes, not STEMI Syd Davis PA-C CRITICAL ALERT ISSUED ON 12-30-2021 13:07:54 us Sabina Mohan MD ECG ORDERABLES Final Resu lt [facility] RAD * EKG Reading (12/30/2021 1:05 PM CDT) Sabina Ivey MD - 12/30/2021 1:05 PM CDT Sabina Mohan MD ? 12/30/2021 ??2:52 PM EKG Reading Date/Time: 12/30/2021 1:05 PM Performed by: Sabina Mohan MD Authorized by: Sabina Mohan MD Interpreted by ED physician Rhythm: atrial fibrillation Rate: normal BPM: 76 Conduction: conduction normal Comments: Anterior Q waves, no ST elevation noted us Sabina Mohan MD [place] [facility] Final Result documented in this encounter Visit Diagnoses Diagnosis Chest pain- Primary Chest pain, unspecified documented in this encounter Administered Medications Inactive Administered Medications - up to 3 most recent administrations Medication Order MAR Action Action Date Dose Rate Site aspirin chewable tablet 324 mg 324 mg, Oral, Once, 1 dose, On Thu12/30/21 at 1315, If not given by EMS or taken immediately prior to arrival Given 12/30/2021 1:36 PM CDT 243 mg documented in this encounter Active and Recently Administered Medications Times are shown in CDT. Scheduled Medication Order 12/28/2021 12/29/2021 12/30/2021 aspirin chewable tablet 324 mg (COMPLETED) 324 mg, Oral, Once, 1 dose, On Thu12/30/21 at 1315, If not given by EMS or taken immediately prior to arrival 1336 (Given - Provid er: Cuauhtemoc Thompson RN - Comment: pt took 81mg at home) documented in this encounter Additional Health Concerns Infection Onset Date Last Indicated Resolved Time MRSA Comment:11/14/20 +MRSA Right heel 11/17/2020 11/17/2020 documented as of this encounter Care Teams High Tension Tester Relationship Specialty Start Date End Date Leeroy Sheehan DO [address] [place] [phone] PCP - General FAMILY PRACTICE 12/06/19 documented as of this encounter
--- OUTSIDE RECORDS SUMMARY | 2024-03-06 15:21 | XMS_ITS | Encounter Summary ---
Author Organization [facility] Address [facility] [place] [address] Care Team Providers Care Interactive Multimedia Designer Name Role Phone Leeroy Sheehan DO Primary Care Provide r Encounter Details Date Type Department Care Team (Latest Contact Info) Description 05/23/2020 Travel Social History Tobacco Use Types Packs/Day Years Used Date Smoking Tobacco: Former Smokeless Tobacco: Never Alcohol Use Standard Drinks/Week Comments Not Currently [...] AM CDT documented as of this encounter Functional Status Functional Status Response [...] No 05/23/2020 documented as of this encounter Plan of Treatment Not on file documented as of this encounter Visit Diagnoses Not on filedocumented in this encounter Care Teams Interactive Multimedia Designer Relationship Specialty Start Date End Date Leeroy Sheehan DO [address] [facility] [address] [place] [address] PCP - General Family Medicine 05/23/20 07/11/20 documented as of this encounter
--- OUTSIDE RECORDS SUMMARY | 2024-03-06 15:21 | XMS_ITS | Encounter Summary ---
Author Organization [facility] Address [address] [place] [address]. [place], [place] [address] [place] [address] Care Team Providers Care Helicopter Repairer Name Role Phone Leeroy Sheehan DO Primary Care Provide r Encounter Details Date Type Department Care Team (Latest Contact Info) Description 09/27/2021 Travel Social History Tobacco Use Types Packs/Day [...] suspected to have Coronavirus/COVID-19? No / Unsure 09/27/2021 11:40 AM CDT documented as of this encounter Plan of Treatment Not on file documented as of this encounter Visit Diagnoses Not on filedocumented in this encounter Additional Health Concerns Infection Onset Date Last Indicated Resolved Time MRSA Comment:11/14/20 +MRSA Right heel 11/17/2020 11/17/2020 documented as of this encounter Care Teams Helicopter Repairer Relationship Specialty Start Date End Date Leeroy Sheehan DO [address] [place] [phone] PCP - General FAMILY PRACTICE 12/06/19 documented as of this encounter
--- OUTSIDE RECORDS SUMMARY | 2024-03-06 15:21 | XMS_ITS | Encounter Summary ---
Author Organization [facility] Address [address] [place] [address]. [place], [place] [address] [place] [address] Care Team Providers Care Guitar Repair Technician Name Role Phone Leeroy Sheehan DO Primary Care Provide r Encounter Details Date Type Department Care Team (Latest Contact Info) Description 10/18/2021 Travel Social History Tobacco Use Types Packs/Day [...] suspected to have Coronavirus/COVID-19? No / Unsure 10/18/2021 1:30 PM CDT documented as of this encounter Plan of Treatment Not on file documented as of this encounter Visit Diagnoses Not on filedocumented in this encounter Additional Health Concerns Infection Onset Date Last Indicated Resolved Time MRSA Comment:11/14/20 +MRSA Right heel 11/17/2020 11/17/2020 documented as of this encounter Care Teams Guitar Repair Technician Relationship Specialty Start Date End Date Leeroy Sheehan DO [address] [place] [phone] PCP - General FAMILY PRACTICE 12/06/19 documented as of this encounter
--- OUTSIDE RECORDS SUMMARY | 2024-03-06 15:21 | XMS_ITS | Encounter Summary ---
Author Organization [facility] Address [address] [place] [address]. [place], [place] [address] [place] [address] Care Team Providers Care Law Examiner Name Role Phone Leeroy Sheehan DO Primary Care Provide r Reason for Visit * Imaging (Routine) - Closed Specialty Diagnoses / Procedures Referred By Juan t Referred To Contact RADIOLOGY Diagnoses Ulcer of left heel, with fat layer exposed ([facility]/HCC) Diabetic foot ulcer with osteomyelitis ([facility]) Lower extremity edema Procedures USV VENOUS REFLUX LOW RODRI Fany May NP [address] [place] [address] Phone: tel: fax: Referral ID Status Reason Start Date Expiration Date Visits Re quested Visits Authorized [id number] Closed 09/27/2021 10/28/2022 1 1 Encounter Details Date Type Department Care Team (Late st Contact Info) Description 11/29/2021 1:47 PM CDT - 11/29/2021 2:44 PM CDT Hospital Encounter [facility] [place] [id number] Fany May NP [address] [place] [address] Discharge Disposition: Home or Self Care (Routine [...] tablet Take 81 mg by mouth daily. clotrimazole-bet amethasone (LOTRISONE) cream Apply to the area around the wound 60 g 1 09/27/2021 furosemide 40 MG tablet Take 40 mg [...] 40 mg by mouth daily. 05/04/2020 2 gentamicin (GARAMYCIN) 0.1 % cream Apply topically daily. 60 g 1 09/27/2021 2 glimepiride 4 MG tablet Take 4 [...] Procedure Name Priority Date/Time Associated Diagnosis Comments USV VENOUS REFLUX LOW RODRI Routine 11/29/2021 3:08 PM CDT Ulcer of left heel, with fat layer exposed (CMS/HCC [facility]/HCC) Diabetic foot ulcer with osteomyelitis (CMS/HCC HHS/HCC) Lower extremity edema documented in this encounter Results * USV VENOUS REFLUX LOW RODRI (11/29/2021 3:08 PM CDT) Anatomical Region Laterality Modality Extremity Vascular Ultraso und 11/29/2021 2:31 PM CDT Narrative 12/01/2021 6:06 PM CDT ?VENOUS DUPLEX IMAGING ?BILATERAL LOWER EXTREMITY ? VASCULAR LAB Pat.Name: ??TAYE MARRERO ?Pat.ID: ?[id number] ? St.Date: ?? 11/29/2021 ? Refer.MD: ??[id number], Lalo evans Exam Time: 2:31:00 PM ? Study Type:TORIN VS Venous Duplex Legs RODRI ??Age: ??1955,66Y ?Sex: ? MALE ? Sonogrphr: Pat Ruddy, RVT ?Pat. Stat.:Outpatient ? History / Clinical:Bilateral heal ulcers. PMH, ??Morbid obesity, xtob, dm, htn, hld Procedures: Garcia scale, Color Doppler imaging, Doppler Spectral Analysis Race: ?W ? ++++++++++++++++++++++++++++++++++++ SUMMARY: ++++++++++++++++++++++++++++++++++++ The deep veins are patent bilaterally from groin to calf. ?? Presence of reflux > 1 second duration is seen in the right femoral vein. ??Reflux measurements obtained with patient standing, tilt table. CONCLUSION: ??There is no reflux (>1 sec) in the superficial veins. ??No evidence of acute deep vein thrombosis (DVT) in the femoral, popliteal, below knee veins. ??Evidence of right lower extremity chronic reflux. ??There is no evidence of superficial vein thrombophlebitis (SVT) in the saphenous veins. ++++++++++++++++++++++++++++++++++++ FINDINGS: ++++++++++++++++++++++++++++++++++++ ++++++++++++++++++++++++++++++++++++ MEASUREMENTS: ++++++++++++++++++++++++++++++++++++ ?REFLUX Right CFV ?? CFV ?0 sec ? Right Mid FV ?? Mid FV ? 0 sec ? Right Pop V ?? Pop V ?1.7 sec ? Right SFJ ?? GSV SFJ ?8.2 mm ?GSV SFJ ?0 sec Right Prox Thigh ?? GSV Prox Thigh ?? 9.7 mm ?GSV Prox Thigh ? 0 sec Right Mid Thigh ?? GSV Mid Thigh ?7.9 mm ?GSV Mid Thigh ?0 sec Right Dist Thigh/AK ?? GSV Dist Thigh ?? 7.3 mm ?GSV Dist Thigh ? 0 sec Right Mid ?? SSV Mid ?5.8 mm ?SSV Mid ?0 sec Right Prox ?? SSV Prox ? 3.8 mm ?SSV Prox ? 0 sec Right Prox Calf ?? GSV Prox Calf ?7.9 mm ?GSV Prox Calf ?0 sec Left CFV ?? CFV ?0 sec ? Left Mid FV ?? Mid FV ? 0 sec ? Left Pop V ?? Pop V ?0 sec ? Left SFJ ?? GSV SFJ ?5.8 mm ?GSV SFJ ?0 sec Left Prox Thigh ?? GSV Prox Thigh ?? 7.6 mm ?GSV Prox Thigh ? 0 sec Left Mid Thigh ?? GSV Mid Thigh ?6.9 mm ?GSV Mid Thigh ?0 sec Left Dist Thigh/AK ?? GSV Dist Thigh ?? 6.8 mm ?GSV Dist Thigh ? 0 sec Left Prox Calf ?? GSV Prox Calf ?5.1 mm ?GSV Prox Calf ?0 sec Left Mid ?? SSV Mid ?8.7 mm ?SSV Mid ?0 sec Left Prox ?? SSV Prox ? 6.3 mm ?SSV Prox ? 0 sec Signed 12/01/2021 06:06 PM Boyd Bartlett M.D. Procedure Note oByd Bartlett MD - 12/01/2021 VENOUS DUPLEX IMAGING BILATERAL LOWER EXTREMITY VASCULAR LAB Pat.Name: TAYE MARRERO Pat.ID: [id number] .Date: 11/29/2021 : [id number], Lalo evans Exam Time: 2:31:00 PM Study Type:TORIN VS Venous Duplex Legs RODRI Age: 6 1955,66Y Sex: MALE Sonogrphr: Pat Fox RVT Pat. Stat.:Outpatient History / Clinical:Bilateral heal ulcers. PMH, Morbid obesity, xtob, dm, htn, hld Procedures: Garcia scale, Color Doppler imaging, Doppler Spectral Analysis Race: W ++++++++++++++++++++++++++++++++++++ SUMMARY: ++++++++++++++++++++++++++++++++++++ The deep veins are patent bilaterally from groin to calf. Presence of reflux > 1 second duration is seen in the right femoral vein. Reflux measurements obtained with patient standing, tilt table. CONCLUSION: There is no reflux (>1 sec) in the superficial veins. No evidence of acute deep vein thrombosis (DVT) in the femoral, popliteal, below knee veins. Evidence of right lower extremity chronic reflux. There is no evidence of superficial vein thrombophlebitis (SVT) in the saphenous veins. ++++++++++++++++++++++++++++++++++++ FINDINGS: ++++++++++++++++++++++++++++++++++++ ++++++++++++++++++++++++++++++++++++ MEASUREMENTS: ++++++++++++++++++++++++++++++++++++ REFLUX Right CFV CFV 0 sec Right Mid FV Mid FV 0 sec Right Pop V Pop V 1.7 sec Right SFJ GSV SFJ 8.2 mm GSV SFJ 0 sec Right Prox Thigh GSV Prox Thigh 9.7 mm GSV Prox Thigh 0 sec Right Mid Thigh GSV Mid Thigh 7.9 mm GSV Mid Thigh 0 sec Right Dist Thigh/AK GSV Dist Thigh 7.3 mm GSV Dist Thigh 0 sec Right Mid SSV Mid 5.8 mm SSV Mid 0 sec Right Prox SSV Prox 3.8 mm SSV Prox 0 sec Right Prox Calf GSV Prox Calf 7.9 mm GSV Prox Calf 0 sec Left CFV CFV 0 sec Left Mid FV Mid FV 0 sec Left Pop V Pop V 0 sec Left SFJ GSV SFJ 5.8 mm GSV SFJ 0 sec Left Prox Thigh GSV Prox Thigh 7.6 mm GSV Prox Thigh 0 sec Left Mid Thigh GSV Mid Thigh 6.9 mm GSV Mid Thigh 0 sec Left Dist Thigh/AK GSV Dist Thigh 6.8 mm GSV Dist Thigh 0 sec Left Prox Calf GSV Prox Calf 5.1 mm GSV Prox Calf 0 sec Left Mid SSV Mid 8.7 mm SSV Mid 0 sec Left Prox SSV Prox 6.3 mm SSV Prox 0 sec Signed 12/01/2021 06:06 PM Boyd Bartlett M.D. us Fany May MANAGER HI US VASC Final Res ult documented in this encounter Visit Diagnoses Not on filedocumented in this encounter Additional Health Concerns Infection Onset Date Last Indicated Resolved Time MRSA Comment:11/14/20 +MRSA Right heel 11/17/2020 11/17/2020 documented as of this encounter Care Teams Law Examiner Relationship Specialty Start Date End Date Leeroy Sheehan DO [address] [place] [phone] PCP - General FAMILY PRACTICE 12/06/19 documented as of this encounter
--- OUTSIDE RECORDS SUMMARY | 2024-03-06 15:21 | XMS_ITS | Encounter Summary ---
Author Organization [facility] Address [address] [place] [address]. 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 ([facility]/HCC [facility]) Procedures WOUND NEW Fany Villeda NP [address] [place] [address] Phone: tel: fax: Fany May NP [address] [place] [address] Phone: tel: fax: Referral ID Status Reason Start Date Expiration Date Visits Re quested Visits Authorized [id number] Closed 09/23/2021 04/29/2022 8 8 Encounter Details Date Type Department Care Team (Late st Contact Info) Description 10/18/2021 1:32 PM CDT - 10/18/2021 11:59 PM CDT Hospital Encounter [facility] [place] [place] [phone] Fany May NP [address] [place], [place] [phone] Discharge Disposition: Home or Self Care (Routine [...] as needed for Shortness of breath. 01/28/2020 DULoxetine HCl 40 MG CAPSULE ENTERIC COATED [...] documented as of this encounter Care Teams Out Patient Therapist Relationship Specialty Start Date End Date Leeroy Sheehan DO [address] [place] [phone] PCP - General FAMILY PRACTICE 12/06/19 documented as of this encounter
--- OUTSIDE RECORDS SUMMARY | 2024-03-06 15:21 | XMS_ITS | Encounter Summary ---
Author Organization [facility] Address [address] [place] [address]. [place], [place] [address] [place] [address] Care Team Providers Care Railroad Brake Operator Name Role Phone Leeroy Sheehan DO Primary Care Provide r Encounter Details Date Type Department Care Team (Late st Contact Info) Description 10/25/2021 12:46 PM CDT - 10/25/2021 11:59 PM CDT Hospital Encounter [facility] [place] [address] Fany May NP [address] [place], [place] [phone] Discharge Disposition: Home or Self Care (Routine [...] documented as of this encounter Care Teams Railroad Brake Operator Relationship Specialty Start Date End Date Leeroy Sheehan DO [address] [place] [phone] PCP - General FAMILY PRACTICE 12/06/19 documented as of this encounter
--- OUTSIDE RECORDS SUMMARY | 2024-03-06 15:21 | XMS_ITS | Clinical Summary ---
Author Organization [facility] Address [address] [place] [address]. [place], [place] [address] [place] [address] Care Team Providers Care Beef Tagger Name Role Phone Leeroy Sheehan DO Primary Care Provide r Allergies No known active allergies Medications traZODone 150 MG tablet Take 150 mg by mouth daily. 06/24/19 20 Active pravastatin 40 MG tablet Take 40 mg by mouth nightly at bedtime. 03/08/19 21 Active metFORMIN 1000 MG tablet Take 1,000 mg by mouth 2 (two) times daily with meals. 03/28/19 21 Active levothyroxine 100 MCG tablet Take 100 mcg by mouth daily. 05/20/19 21 Active furosemide 40 MG tablet Take 40 mg by mouth daily. 04/27/19 21 Active gabapentin 300 MG capsule Take 300 mg by mouth 4 (four) times daily. 04/25/19 21 Active HYDROcodone-acet aminophen (NORCO) 5-325 MG tablet Take 1 tablet by mouth every 4 (four) hours as needed for Pain. MAX: 4 TABS/DAY. 05/01/19 21 Active aspirin EC (ECOTRIN) 81 MG tablet Take 81 mg by mouth daily. Active clotrimazole-bet amethasone (LOTRISONE) cream Apply to the area around the wound 60 g 1 09/28/19 22 Active Additional Information Patient not taking.Reported on 12/30/2021 carvedilol (COREG) 25 MG tablet Take 25 mg by mouth 2 (two) times daily. Active insulin aspart (NOVOLOG) 100 UNIT/ML injection (VIAL) [...] If blood sugar is >400, call MD Active ipratropium-albu terol (DUONEB) 0.5-2.5 (3) MG/3ML Solution Take 3 mLs by nebulization every 4 (four) hours as needed. Active insulin NPH (HUMULIN N) 100 UNIT/ML injection Inject 20 Units into the skin 2 (two) times daily. Active pantoprazole EC (PROTONIX) 40 MG tablet Take 40 mg by mouth 2 (two) times a day. Active silver sulfADIAZINE (SILVADENE) 1 % cream Apply topically see administration instructions. Clean RT anterior moncada with NS daily and prn; apply SSD, collagen powder, and aminata-alg with gauze wrap Active tolnaftate (TINACTIN) 1 % powder Apply topically 2 (two) times daily. Active Social History Tobacco Use Types Packs/Day Years [...] CDT Inhaled Oxygen Concentration - - Weight 136.1 kg (300 lb) 05/22/2020 12:33 PM CDT Height 180.3 cm (5' 11 ) 05/22/2020 12:33 PM CDT Body Mass Index 41.84 05/22/2020 12:33 PM CDT Plan of Treatment Health Maintenance Due Date Last Done Comments Colorectal Cancer Screening Colonoscopy (10 Years) 1955 Hepatitis C 08/05/1973 DTaP, Tdap and Td Vaccines ( 1 - Tdap) 08/05/1974 Zoster Vaccines (1 of 2) 08/05/2005 Annual Medicare Wellness Visit 08/05/2020 Pneumococcal Vaccine: 65+ Ye ars (1 of 1 - PCV) 08/05/2020 COVID-19 Vaccine (2 - 2023-2 5 season) 2023 06/07/2020 Influenza Adult (#1) 2023 RSV Immunization or 60+ Years (1 - 1-dose 75+ series) 08/05/2030 Meningococcal Vaccine Aged Out No jesus roxana eligible based on patient's age to complete this topic RSV Immunizations Under 20 Months Aged Out No longer eligible based on patient's age to complete this topic Additional Health Concerns Infection Onset Date Last Indicated MRSA Comment:11/14/20 +MRSA Right heel 11/17/2020 11/17/2020 Insurance [employer] Advance Directives Documents on File Type Date Recorded Patient Conservation Enforcement Officer Expl anation Power of Loading Shovel Oiler 09/27/2021 [facility] Care Teams Beef Tagger Relationship Specialty Start Date End Date Leeroy Sheehan DO [address] [place] [phone] PCP - General FAMILY PRACTICE 12/06/19
--- OUTSIDE RECORDS SUMMARY | 2024-03-06 15:21 | XMS_ITS | Encounter Summary ---
Author Organization [facility] Address [address] [place] [address]. [place] [address] [place] [address] Care Team Providers Care Sliver Lap Machine Tender Name Role Phone Leeroy Sheehan DO Primary Care Provide r Encounter Details Date Type Department Care Team (Latest Contact Info) Description 11/28/2020 Travel Social History Tobacco Use Types Packs/Day [...] documented as of this encounter Care Teams Sliver Lap Machine Tender Relationship Specialty Start Date End Date Leeroy Sheehan DO [address] [place] [phone] PCP - General FAMILY PRACTICE 12/06/19 documented as of this encounter
--- OUTSIDE RECORDS SUMMARY | 2024-03-06 15:21 | XMS_ITS | Encounter Summary ---
Author Organization [facility] Address [address] [place] [address]. [place], [place] [id number] [place] [address] Care Team Providers Care Decommissioning Well Site Manager Name Role Phone Leeroy Sheehan DO Primary Care Provide r Reason for Visit * Reason Onset Date Comments Called To Cancel Office Appt. 12/11/2020 Encounter Details Date Type Department Care Team (Late st Contact Info) Description 12/11/2020 Telephone [facility] Diabetes [place] [address] Rachid Raymundo MD Called To Cancel Office Appt. Social History Tobacco Use Types Packs/Day Years [...] have Coronavirus / COVID-19? No / Unsure 12/19/2020 2:43 PM CDT documented as of this encounter Progress Notes * Miguel Dean - 12/11/2020 9:31 AM CDT Called to reschedule patients appointment per Breanne's request. answered the phone. Informed her that she isn't listed on the patients contacts, so I wouldn't be able to discuss with her due to HIPAA violation, Patients hung up. documented in this encounter Plan of Treatment Not on file documented as of this encounter Visit Diagnoses Not on filedocumented in this encounter Additional Health Concerns Infection Onset Date Last Indicated Resolved Time MRSA Comment:11/14/20 +MRSA Right heel 11/17/2020 11/17/2020 documented as of this encounter Care Teams Decommissioning Well Site Manager Relationship Specialty Start Date End Date Leeroy Sheehan DO [address] [place] [phone] PCP - General FAMILY PRACTICE 12/06/19 documented as of this encounter
--- OUTSIDE RECORDS SUMMARY | 2024-03-06 15:21 | XMS_ITS | Encounter Summary ---
Author Organization [facility] Address [address] [place] [address]. [place], [place] [phone] [place] [id number] Care Team Providers Care Cloud Developer Name Role Phone Leeroy Sheehan DO Primary Care Provide r Reason for Referral * Imaging (Routine) - Closed Specialty Diagnoses / Procedures Referred By Juan t Referred To Contact RADIOLOGY Diagnoses Ulcer of left heel, with fat layer exposed (CMS/HCC HHS/HCC) Diabetic foot ulcer with osteomyelitis (CMS/HCC HHS/HCC) Lower extremity edema Procedures USV VENOUS REFLUX LOW RODRI Fany May NP [address] [place] [address] Phone: tel: fax: Referral ID Status Reason Start Date Expiration Date Visits Re quested Visits Authorized [id number] Closed 09/27/2021 10/28/2022 1 1 * Imaging (Routine) - Closed Specialty Diagnoses / Procedures Referred By Contac t Referred To Contact RADIOLOGY Diagnoses Ulcer of left heel, with fat layer exposed (CMS/HCC HHS/HCC) Diabetic foot ulcer with osteomyelitis (CMS/HCC HHS/HCC) Procedures USV ART REST W SOFIA LOW EXT Fany May NP [address] [place] [address] Phone: tel: fax: Referral ID Status Reason Start Date Expiration Date Visits Re quested Visits Authorized [id number] Closed 09/27/2021 10/28/2022 1 1 Reason for Visit * Consultation/Treatment (Routine) - Closed Specialty Diagnoses / Procedures Referred By Juan t Referred To Contact Nurse Practitioner Family / [facility] W[facility] Diagnoses 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 ([facility]/HCC HHS/HCC) Procedures WOUND NEW EVAL Fany May NP [address] [place] [address] Phone: tel: fax: Fany May NP [address] [place] [address] Phone: tel: fax: Referral ID Status Reason Start Date Expiration Date Visits Re quested Visits Authorized [id number] Closed 09/23/2021 04/29/2022 8 8 Encounter Details Date Type Department Care Team (Late st Contact Info) Description 09/27/2021 11:57 AM CDT - 09/27/2021 4:19 PM CDT Hospital Encounter [facility] [place], [place] [phone] Fany May NP [address] [place], [place] [phone] Discharge Disposition: Home or Self Care (Routine [...] AM CDT documented as of this encounter Medications [...] as of this encounter Plan of Treatment Scheduled Orders Name Type Priority Associated Diagnoses Orde r Schedule XR HEEL LT MIN 2V Imaging Routine Ulcer of left heel, with fat layer exposed (CMS/HCC HHS/HCC) Diabetic foot ulcer with osteomyelitis (CMS/HCC HHS/HCC) Expected: 09/27/2021, Expires: 09/27/2022 documented as of this encounter Results * USV ART REST W SOFIA LOW EXT (11/29/2021 3:08 PM CDT) Anatomical Region Laterality Modality Extremity Vascular Ultraso und 11/29/2021 2:00 PM CDT Narrative 12/01/2021 5:16 PM CDT ?ARTERIAL DOPPLER - SOFIA ?BILATERAL LOWER EXTREMITY ? VASCULAR LAB Pat.Name: ??TAYE MARRERO ?Pat.ID: ?[id number] ? St.Date: ?? 11/29/2021 ? Refer.: ??[id number] LYNETET EVANS Exam Time: 2:00:00 PM ? Study Type:TORIN VS Arterial Doppler Legs RODRI ??Age: ??1955,66Y ?Sex: ? MALE ? Sonogrphr: Pat Fox, RVT ?Pat. Stat.:Outpatient ? History / Clinical:Bilateral heal ulcers. PMH, ??Morbid obesity, xtob, dm, htn, hld Procedures: Doppler waveforms, Digit PPG, Systolic Pressures w/SOFIA Race: ?W ? ++++++++++++++++++++++++++++++++++++ SUMMARY: ++++++++++++++++++++++++++++++++++++ [place] SOFIA Criteria: ? >1.30 = falsely elevated, calcified vessels; ?1.00-1.29 = no signif ischemia at rest ; ?.80-.99 = mild PAD, asymptomatic; ? .50-.79 = moderate PAD, claudication; ?<.50 = severe PAD, rest pain; ?<.30 = critical PAD, necrosis, poor healing ?(Digits: ??DBI >.60 Normal; ?? <.60 Abnormal) ? (Positive Stress eval: ??SOFIA decrease of >.20 or >20% pressure drop) Right leg: ??Common Femoral waveform is triphasic, high amplitude; Popliteal triphasic, high amplitude; ??Posterior Tibial triphasic, medium amplitude with SOFIA 1.04 ; ??DP/Anterior Tibial triphasic, high amplitude with SOFIA 1 . ??Digit flow by PPG is medium amplitude. Left leg: ??Common Femoral waveform is triphasic, high amplitude; Popliteal triphasic, high amplitude; ??Posterior Tibial triphasic, high amplitude with SOFIA 1.04 ; ??DP/Anterior Tibial triphasic, medium amplitude with SOFIA 0.941 . ??Digit flow by PPG is medium amplitude. Bilateral toe pressures not obtained due to improper cuff size. CONCLUSION: ??SOFIA right > 1.0 with triphasic waveforms, with toe index N/A. SOFIA left > 1.0 with triphasic waveforms, with toe index N/A. No significant peripheral arterial disease at rest. ?? No evidence of tibial artery disease bilaterally. ?? WOUND CLINIC RECOMMENDATION: No referral to vascular surgery unless clinically indicated. ?? ++++++++++++++++++++++++++++++++++++ FINDINGS: ++++++++++++++++++++++++++++++++++++ ++++++++++++++++++++++++++++++++++++ MEASUREMENTS: ++++++++++++++++++++++++++++++++++++ ?DOPPLER Left DRAW PRESS OPERATOR ?? DRAW PRESS OPERATOR PSV ?118 cm/s ? Left Dist Pop A ?? Dist Pop A PSV ?? 116 cm/s ? Right DRAW PRESS OPERATOR ?? DRAW PRESS OPERATOR PSV ? 99.4 cm/s ?PRESSURES Right Brachial ?? Brach P ?128 mmHg ? Right Ankle DP ?? AnkleDP P ?136 mmHg ? Right Ankle PT ?? AnklePT P ?142 mmHg ? Right SOFIA PT ?? SOFIA PT ?1.04 ? Right SOFIA DP ?? SOFIA DP ? 1 ? Left Brachial ?? Brach P ?136 mmHg ? Left Ankle DP ?? AnkleDP P ?128 mmHg ? Left Ankle PT ?? AnklePT P ?142 mmHg ? Left SOFIA PT ?? SOFIA PT ?1.04 ? Left SOFIA DP ?? SOFIA DP ? 0.941 ? Signed 12/01/2021 05:16 PM Boyd Bartlett M.D. Procedure Note Boyd Bartlett MD - 12/01/2021 ARTERIAL DOPPLER - SOFIA BILATERAL LOWER EXTREMITY VASCULAR LAB Pat.Name: TAYE MARRERO Pat.ID: [id number] .Date: 11/29/2021 Alana.: [id number] LYNETTE EVANS Exam Time: 2:00:00 PM Study Type:TORIN VS Arterial Doppler Legs RODRI Age: 6 1955,66Y Sex: MALE Sonogrphr: Pat Fox RVT Pat. Stat.:Outpatient History / Clinical:Bilateral heal ulcers. PMH, Morbid obesity, xtob, dm, htn, hld Procedures: Doppler waveforms, Digit PPG, Systolic Pressures w/SOFIA Race: W ++++++++++++++++++++++++++++++++++++ SUMMARY: ++++++++++++++++++++++++++++++++++++ [place]en SOFIA Criteria: >1.30 = falsely elevated, calcified vessels; 1.00-1.29 = no signif ischemia at rest ; .80-.99 = mild PAD, asymptomatic; .50-.79 = moderate PAD, claudication; <.50 = severe PAD, rest pain; <.30 = critical PAD, necrosis, poor healing (Digits: DBI >.60 Normal; <.60 Abnormal) (Positive Stress eval: SOFIA decrease of >.20 or >20% pressure drop) Right leg: Common Femoral waveform is triphasic, high amplitude; Popliteal triphasic, high amplitude; Posterior Tibial triphasic, medium amplitude with SOFIA 1.04 ; DP/Anterior Tibial triphasic, high amplitude with SOFIA 1 . Digit flow by PPG is medium amplitude. Left leg: Common Femoral waveform is triphasic, high amplitude; Popliteal triphasic, high amplitude; Posterior Tibial triphasic, high amplitude with SOFIA 1.04 ; DP/Anterior Tibial triphasic, medium amplitude with SOFIA 0.941 . Digit flow by PPG is medium amplitude. Bilateral toe pressures not obtained due to improper cuff size. CONCLUSION: SOFIA right > 1.0 with triphasic waveforms, with toe index N/A. SOFIA left > 1.0 with triphasic waveforms, with toe index N/A. No significant peripheral arterial disease at rest. No evidence of tibial artery disease bilaterally. WOUND CLINIC RECOMMENDATION: No referral to vascular surgery unless clinically indicated. ++++++++++++++++++++++++++++++++++++ FINDINGS: ++++++++++++++++++++++++++++++++++++ ++++++++++++++++++++++++++++++++++++ MEASUREMENTS: ++++++++++++++++++++++++++++++++++++ DOPPLER Left DRAW PRESS OPERATOR DRAW PRESS OPERATOR PSV 118 cm/s Left Dist Pop A Dist Pop A PSV 116 cm/s Right DRAW PRESS OPERATOR DRAW PRESS OPERATOR PSV 99.4 cm/s PRESSURES Right Brachial Brach P 128 mmHg Right Ankle DP AnkleDP P 136 mmHg Right Ankle PT AnklePT P 142 mmHg Right SOFIA PT SOFIA PT 1.04 Right SOFIA DP SOFIA DP 1 Left Brachial Brach P 136 mmHg Left Ankle DP AnkleDP P 128 mmHg Left Ankle PT AnklePT P 142 mmHg Left SOFIA PT SOFIA PT 1.04 Left SOFIA DP SOFIA DP 0.941 Signed 12/01/2021 05:16 PM Boyd Bartlett M.D. us Fany May QUALITY HEAD US VASC Final Res ult * USV VENOUS REFLUX LOW RODRI (11/29/2021 3:08 PM CDT) Anatomical Region Laterality Modality Extremity Vascular Ultraso und 11/29/2021 2:31 PM CDT Narrative 12/01/2021 6:06 PM CDT ?VENOUS DUPLEX IMAGING ?BILATERAL LOWER EXTREMITY ? VASCULAR LAB Pat.Name: ??TAYE MARRERO ?Pat.ID: ?[id number] ? St.Date: ?? 11/29/2021 ? Refer.: ??[id number] Exam Time: 2:31:00 PM ? Study Type:TORIN VS Venous Duplex Legs RODRI ??Age: ??1955,66Y ?Sex: ? MALE ? Sonogrphr: Pat Fox RVT ?Pat. Stat.:Outpatient ? History / Clinical:Bilateral [...] 06:06 PM Boyd Bartlett M.D. Procedure Note Boyd Bartlett MD - 12/01/2021 VENOUS DUPLEX IMAGING BILATERAL LOWER EXTREMITY VASCULAR LAB Pat.Name: TAYE MARRERO Pat.ID: [id number] .Date: 11/29/2021 : [id number], Lynette evans Exam Time: 2:31:00 PM Study Type:TORIN [...] Signed 12/01/2021 06:06 PM Boyd Bartlett M.D. Fany May NP [facility] Final Res ult * CULTURE, WOUND, W/GRAM STAIN (09/27/2021 3:09 PM CDT) SPEC DESCRIPTION HEEL, RIGHT 09/27/2021 4:23 PM CDT [facility] SPECIAL REQUESTS NO SPECIAL REQUEST 09/27/2021 4:23 PM CDT [facility] GRAM STAIN RESULT NO WHITE BLOOD CELLS SEEN 09/28/2021 10:35 AM CDT [facility] GRAM STAIN RESULT NO ORGANISMS SEEN 09/28/2021 10:35 AM CDT [facility] CULTURE RESULT NO GROWTH 3 DAYS 09/30/2021 11:51 AM CDT [facility] CULTURE RESULT NOTE: WOUND AND TISSUE CULTURES ARE ROUTINELY SCREENED FOR AEROBIC ORGANISMS ONLY. 09/30/2021 11:51 AM CDT [facility] RIGHT HEEL STRUCTURE / Unknown 09/27/2021 3:09 PM CDT 09/27/2021 4:23 PM CDT Fany May NP MICROBIOLOGY - GENERAL OR DERABLES Final Result [facility] [address] [place] [address], [place] [phone] documented in this encounter Visit Diagnoses Diagnosis Ulcer of right heel, with fat layer exposed (CMS/HCC HHS/HCC)- Primary Ulcer of left heel, with fat layer exposed (CMS/HCC HHS/HCC) Diabetic foot ulcer with osteomyelitis ([facility]/HCC HHS/HCC) Type II or unspecified type diabetes mellitus with other specified manifestations, not stated as uncontrolled Lower extremity edema Edema documented in this encounter Additional Health Concerns Infection Onset Date Last Indicated Resolved Time MRSA Comment:11/14/20 +MRSA Right heel 11/17/2020 11/17/2020 documented as of this encounter Care Teams Cloud Developer Relationship Specialty Start Date End Date Leeroy Sheehan DO [address] [place] [phone] PCP - General FAMILY PRACTICE 12/06/19 documented as of this encounter
--- OUTSIDE RECORDS SUMMARY | 2024-03-06 15:21 | XMS_ITS | Encounter Summary ---
Author Organization [facility] Address [address] [place] [address]. [place] [address] [place] [address] Care Team Providers Care Software Educator Name Role Phone Leeroy Sheehan DO Primary Care Provide r Encounter Details Date Type Department Care Team (Latest Contact Info) Description 12/19/2020 Travel Social History Tobacco Use Types Packs/Day [...] documented as of this encounter Care Teams Software Educator Relationship Specialty Start Date End Date Leeroy Sheehan DO [address] [place] [phone] PCP - General FAMILY PRACTICE 12/06/19 documented as of this encounter
--- OUTSIDE RECORDS SUMMARY | 2024-03-06 15:21 | XMS_ITS | Encounter Summary ---
Author Organization [facility] Address [address] [place] [address]. 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 ([facility]) Procedures WOUND NEW Fany Villeda NP [address] [place] [address] Phone: tel: fax: Fany May NP [address] [place] [address] Phone: tel: fax: Referral ID Status Reason Start Date Expiration Date Visits Re quested Visits Authorized [id number] Closed 09/23/2021 04/29/2022 8 8 Encounter Details Date Type Department Care Team (Late st Contact Info) Description 11/29/2021 2:45 PM CDT - 11/29/2021 11:59 PM CDT Hospital En[facility] [place] [phone] Fany May NP [address] [place], [place] [phone] Discharge Disposition: Home or Self Care (Routine [...] documented as of this encounter Care Teams Pleater Hand Relationship Specialty Start Date End Date Leeroy Sheehan DO [address] [place] [phone] PCP - General FAMILY PRACTICE 12/06/19 documented as of this encounter
--- OUTSIDE RECORDS SUMMARY | 2024-03-06 15:21 | XMS_ITS | Encounter Summary ---
Author Organization [facility] Address [address] [place] [address] Care Team Providers Care Sql Programmer Name Role Phone Leeroy Sheehan DO Primary Care Provide r Reason for Visit * Auth/Cert Specialty Diagnoses / Procedures Referred By Juan cosme Referred To Contact Diagnoses Necrotic left heel; cellulitis/osteromyelitis Referral ID Status Reason Start Date Expiration Date Visits Re quested Visits Authorized [id number] 1 1 Encounter Details Date Type Department Care Team (Late st Contact Info) Description 05/25/2020 12:30 PM CDT - 05/25/2020 1:30 PM CDT Surgery [facility] - [facility] Op [address] [place] [address] Maxi Neville DPM [address] [place] [id number] LEFT HEEL ULCER DEBRIDMENT WITH PARTIAL CALCANECTOMY Surgery Details Date/Time Status Location OR Service Patient Class Case Class Case Type Trauma Case? 05/25/2020 12:30 PM Posted [facility] MAIN OR OR 05 Podiatry Inpatient Urgent Panel 1 Procedure LRB Anes Op Region Wound Class Comments LEFT HEEL ULCER DEBRIDMENT W ITH PARTIAL CALCANECTOMY Left MAC Foot Clean Contaminated Surgeon Surgeon Role Service Panel Maxi Neville DPM Primary Podiatry 1 Special Needs PODIATRY TRAY/TPS/VERSAJET documented in this encounter Social History Tobacco Use Types Packs/Day Years [...] Sign Reading Time Taken Comments Blood Pressure 155/103 05/25/2020 11:43 AM CDT Pulse 90 05/25/2020 11:59 AM CDT Temperature 36.9 ??C (98.5 ??F) 05/25/2020 11:43 AM C DT Respiratory Rate 19 05/25/2020 11:43 AM CDT Oxygen Saturation 96% 05/25/2020 11:59 AM CDT Inhaled Oxygen Concentration - - Weight [...] Podiatry Diagnostic Studies Recent Labs Component Name 05/29/2033605/26/208 05/23/20 0506 WBC 8.9 10.5 9.8 HGB 14.8 14.1 13.8 HCT 49.2 46.5 44.1 PLTCOUNT 356 302 273 Recent Labs Component Name 05/29/20 03305/26/208 05/25/20 0348 SODIUM 136 134* 135* POTASSIUM [...] the discretion of the reading radiologist and diagnostic technologist. FINDINGS: Alignment of the hindfoot and [...] HYDROcodone-acetaminophen 7.5-325 MG tablet Commonly known as: Fulton Take 1 tablet by mouth every 6 [...] Answer Comments Your discharge diagnosis is: Osteomyelitis [906106] Diet instructions May substitute facility diet equivalent Diet for Special Occasions May disregard therapeutic diet on special occasions per facility policy and casing puller. Oxygen Saturation PRN Distress Oxygen Saturation - Check PRN for respiratory distress or change in patients condition per casing puller. Notify Physician Order Specific Question Answer Comments [...] or history of positive TB skin test. [facility] (SNF) Admission Taye is to be admitted to a [facility] Facility. Taye has been examined and does not have any emergency medical conditions. Physician Certification of Need I certify that post hospital [facility] Facility services are required to be given on an inpatient basis because of the patient's need for [facility] facility care on a continuous basis forthe condition(s) for which Taye was receiving in-hospital services prior to transfer to a [facility] facility. The orders on this document are my transfer orders to be active at the new facility after discharge from the Hospital. The orders replace any other lists of orders or medications. Electronically signed by Carroll Briseno MD 05/29/2020 12:00 PM Transfer care to Skilled Nursing provider or other physician. Notify patient's Physician [...] than 30 minutes. CC: Leeroy Sheehan DO [phone] documented in this encounter Discharge Instructions * [...] PM CDT Report to Marco Antonio at [facility]. * Oscar Muhammad, OT - 05/29/2020 [...] to participate in self- care/functional mobility in [facility] remains decreased. Pt had nofurther questions and/or [...] home following SNF stay) OT Discharge Recommendations: [facility] Facility;Home Health OT;Inpatient Rehab Transportation: TBD If [...] assisted to EOB, assisted to transfer to [facility] with stand pivot, in an attempt to maintain TTWB better during transfer. Pt to [facility], has EMMA STALLWORTH to room to assist. [...] RECOMMENDATIONS/PLAN: Continue per POC. PT Discharge Recommendations: [facility] Facility;24 Hour Care Recommended Transportation Method: Stretcher/Ambulance If this is the last Physical Therapy visit, this note serves as the discharge summary. 0620 * Torrie Roman MSW - 05/29/2020 11:01 AM CDT Facility Transfer [...] form under letters sect, and faxed to [facility] headquarters with face sheet. Nrsg to please obtain pcs form and face sheet to provide to [facility] dispatch upon arrival. Covid test ordered and nrsg to obtain. 2:40 Auth rcd per christofer Greene. Ss checked with Radha @ [facility] she has Auth and pt oked to transfer. Fac aware Covid test results were sent to fac/ back and not detected and Rn arranging own ambul. Nrsg please arrange amb to fac. Rn Katelyn aware and to coordinate. Level of Care: Skilled Rehab Payor Source: [facility] Care Plan Facility Name: (include name of person confirming admission): per pt/ fam (spouse ) request, pt. betysfer to [facility]. Per Radha with admissions @ [facility], pt. ok to transfer today once Auth rcd, and Covid test done. Pt will go to room : [facility]. [place] Made Aware of Special Needs (if applicable): fac aware pt will need iv antibxs for 6 weeks/ ableto accommodate. Per christofer Greene update pt will not need a wound vac, fac updated. RN Call Report to: [phone] RN Fax D/C Orders to: [phone] Transportation: Amb recommended per staff update. Transport [...] MD: Dr Misael Nobles Completed and Signed [id number] (if applicable): to be sent to fac, and copy retained for chart. Family/Other Notified of Transfer (name/phone): spouse Yumiko @ [phone], pt/fam ok with discharge once orders written and request transfer to [facility]. Ss spoke with pt and pt aware MD with orders for today and pt ok with discharge today and also wants transfer to [facility]. Authorization Skilled Care: Ramona pursuing snf Auth. See cm note for updates. / Auth rcd per epicis : [id number]. Authorization for Transportation: no Auth required per cm per insurance. Pt. with [employer]. Comments: nrsg to please send fac orders,chart, and discharge summary. DREW Brownlee ext. [phone] ss spoke with cm Ramona and Emma Zepeda @ [facility] [phone].. * Ramona Cuellar RN - 05/29/2020 10:58 AM CDT [employer] auth submitted for [facility] SNF auth #[id number]. Please refer to Torrie's note for details. Covid test resulted neg. Ramona TRUJILLO, [phone] * Chidi Madrigal DO - 05/29/2020 9:02 AM CDT INFECTIOUS DISEASES PROGRESS NOTE Name: Tyae Marrero Age: [age] year old Sex: male [...] Use) oral gel, Oral, PRN ??? HYDROcodone-acetaminophen (Fulton) 5-325 MG tablet 1 tablet, Oral, q4h PRN ??? morphine injection 2 mg, Intravenous, q3h PRN ??? ondansetron (disintegrating) (Zofran ODT) tablet 4 mg, Oral, q6h PRN ??? ondansetron (Zofran) injection 4 mg, Intravenous, q6h PRN ??? polyethylene glycol 3350 (Miralax) packet 17 g, Oral, QDAY PRN ?? Or LABS: Recent Labs Component Name 05/29/20 0337 05/26/20 0458 05/23/20 0506 WBC 8.9 10.5 9.8 [...] results for input(s): PTT in the last 32134 hours. IMAGING: IMPRESSION ?? No evidence of fracture or malalignment. No cortical bone irregularity identified. Large posterior plantar ulcer of 5 cm. 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 [facility] Ramona to pursue Auth with insurance once pt/fam ok transfer fac. @ this time. Pt/fam requesting referrals to below facilities and want to wait to make a decision until all facilities have assessed. Ss spoke with Radha @ [facility] and she will advise once fac. with final decision, and left for Alejandra with [facility] as not available @ time of ss [...] Selected Services Address Phone Fax Patient Preferred [facility] Accepted N/A [address] [facility] [id number] -- [facility] Accepted- per Radha once Auth rcd: NPI for fac is [id number]/ MD assigned will be Dr. Misael Nobles - pt Must have Covid test done not older than 72 hours old and MUST be in bldg before midnight. N/A [address] [facility] [place] [facility] [address] [phone] -- [facility] Denied unable to meet pts needs. N/A [address] [facility] [address] [phone] -- Comments:@ discharge nrsg to please send fac orders,chart and discharge summary. Covid guidelines for fac with approval MUST be met prior to transfer. Ss updated pts spouse re: above and @ time of discharge pt;/fam requesting transfer to [facility]. Ss updated Ramona jaffe. She will pursue Auth. Once Auth rcd and discharge orders written discharge can be coordinated @ that time. Ss updated pts Rn Katelyn @ [phone]. Orders in for Covid test per fac Request, nrsg aware and to obtain. Name: DREW Brownlee Phone: [phone] * Marycruz Martienz RN - 05/28/2020 8:20 PM CDT Problem: [...] snf plcmnt. Per cm pt/fam interested in [facility] location. Ss with call out to Mariah Lewis with [employer] as pt has [employer] insurance and will [...] met and pt WILL need an Auth. Hospital Christofer Greene to obtain prior to transfer. Additional info to follow. DREW Brownlee ext. [phone]. Rtn call rcd from Mariah Lewis, assist appreciated. Ss was able to talk with pt and [place] resources were discussed. New Facility Placement Referral source: christofer Greene Date of referral:rcd today 05/28 Admitted from: hme Special Needs: Covid guidelines for fac with approval will need to be met @ discharge. Patient Goal (short term and nodulizer): short term snf/ half-way hme. Level of Care (SNF/Medicaid NH/Rehab/Residential Care/LTACH): snf requested Spoke with (Phone number, if not patient. Family participation encouraged): Cm spoke with pt and spouse and both requesting snf. Ss spoke with pt and pt agreeable to snf and requests below referrals to : 1. [facility] 2.[facility] 3. [facility] in [facility]- rtn call rcd from Christina @ [phone] and per admissions,fac is able to accommodate new admit, has an available bed, Sreekanth Fonseca would be assigned/npi for fac is : [phone], fac does not have MD NPI..- ss updated pt. ,and pt asking to talk withhis spouse first wants to see also if the other facilites will accept him as well. Per his request ss updated pts spouse Mrs. Yumiko Marrero @ [phone]. - she plans to look up [place]. Ss providedthis workers contact info for rtn [...] Selected Services Address Phone Fax Patient Preferred [facility] Pending - Request Sent N/A [address] [facility] [place] [facility] [address] [phone] -- [facility] Pending - Request Sent N/A [address] [facility] [address] [phone] -- [facility] Pt was approved. N/A [address] [place] [address] -- If Medicare-3 day qualifying stay verified: pt has [facility]. Will need an Auth to transfer to any snf. monitoring facility responses Comments:@ discharge if to snf nrsg to please send fac orders,chart, and discharge summary. Name: DREW Brownlee Phone: [phone] updated christofer Greene * Evelyne Weston, OT - 05/28/2020 10:59 AM CDT Occupational [...] To Be Determined OT Discharge Recommendations: Inpatient Rehab;[facility] Facility Transportation: Ambulance/ stretcher If this is the last Occupational Therapy visit, this serves as the discharge summary. OT x [phone] * Ramona Cuellar RN - 05/28/2020 10:54 AM CDT Pt worked with therapies over the weekend and did poorly. Spoke to pt and spouse this am regarding discharge plan. Both are agreeable to SNF. Pt wants to return to [facility] in [place]. where he's been previously however, this is an alcohol detox program. Pt needs PT/OT and 6 weeks of IV ABX. They are agreeable to SNF referrals in [place], [place]. They didn't know of any specific SNF facilities located there. Referred to DREW Brownlee. Pt to get PICC line then will be medically ready for discharge. Will require [employer] shaka. Ramona TRUJILLO, CM [phone] * Chidi Madrigal DO - 05/28/2020 10:09 [...] Use) oral gel, Oral, PRN ??? HYDROcodone-acetaminophen (Fulton) 5-325 MG tablet 1 tablet, Oral, q4h [...] CHLORIDE 100 100 99 CO2 28 26 BUN 18 12 14 CREATININE 1.11 0.85 0.86 GLUCOSE 345* 174* 200* CALCIUM 9.7 10.0 9.9 Recent Labs Component Name 05/23/20 0506 INR 1.2* No results for input(s): PTT in the last 37490 hours. IMAGING: IMPRESSION ?? No evidence of [...] lymphedema Cbc, cmp, crp weekly faxed to [phone] Will need home health for IV antibiotics D/w patient * Eric Smith, PT - 05/28/2020 9:21 AM CDT Physical [...] RECOMMENDATIONS/PLAN: Continue per POC. PT Discharge Recommendations: [facility] Facility;Inpatient Rehab Recommended Transportation Method: Stretcher/Ambulance If this is the last Physical Therapy visit, this note serves as the discharge summary. 2830 * Scott Barron RN - 05/28/2020 1:38 [...] Use) oral gel, Oral, PRN ??? HYDROcodone-acetaminophen (Fulton) 5-325 MG tablet 1 tablet, Oral, q4h [...] results for input(s): PTT in the last 15432 hours. IMAGING: IMPRESSION ?? No evidence of [...] for IV antibiotics D/w patient * Angeles Rogers OT - 05/27/2020 2:27 PM CDT Occupational [...] notified of patient's performance/location end of session. Portfolio Specialist Dawna, present to assist throughout the session. [...] further details. RECOMMENDATIONS/PLAN: OT Discharge Recommendations: Inpatient Rehab;[facility] Facility If this is the last Occupational [...] Recommendations: To Be Determined PT Discharge Recommendations: [facility] Facility;Inpatient Rehab Recommended Transportation Method: Stretcher/Ambulance If [...] Use) oral gel, Oral, PRN ??? HYDROcodone-acetaminophen (Fulton) 5-325 MG tablet 1 tablet, Oral, q4h [...] 3.7 4.4 CHLORIDE 100 100 99 CO2 BUN 18 12 14 CREATININE 1.11 0.85 0.86 GLUCOSE 345* 174* 200* CALCIUM 9.7 10.0 9.9 Recent Labs Component Name 05/23/20 0506 INR 1.2* No results for input(s): PTT in the last 19891 hours. IMAGING: IMPRESSION ?? No evidence of [...] 11 (1.803 m) Wt 337 lb 4.9 oz (153 kg) SpO2 95% BMI 47.04 kg/m2 General [...] results for input(s): SEDRATE in the last 33532 hours. No results for input(s): CRP in the last 59717 hours. Cultures: Surgical 05/25/20 Gram Stain No [...] patient care Kori John DPM PGY-1 pager [phone] cell [phone] Agree with findings as above will continue [...] admitted as a direct admission transfer from [facility]. He is admitted with Infected left [...] with possible osteomyelitis/gangrenous changes/cellulitis/calcaneus with calcaneal osteomyelitis. Ammunition Assembly Ii Laborer consulted, wound debridement today Continue IV antibiotics [...] Use) oral gel, Oral, PRN ??? HYDROcodone-acetaminophen (Fulton) 5-325 MG tablet 1 tablet, Oral, q4h [...] Use) oral gel, Oral, PRN ? HYDROcodone-acetaminophen (Fulton) 5-325 MG tablet 1 tablet, Oral, q4h [...] results for input(s): PTT in the last 31613 hours. IMAGING: IMPRESSION ?? No evidence of [...] lb 4.9 oz (153 kg) (05/23/20 025) Most recent weight: Weight: (!) 337 lb [...] admission will be greater than: (specify) Description: [place] Nutrition Goal: Intake percent from meals/snacks for [...] continue to monitor for changes. * Mario George, PharmD - 05/24/2020 7:20 PM CDT Vancomycin [...] to follow andadjust regimen as necessary. Mario George, PharmD, 05/24/2020 7:21 PM * Eric Smith, [...] admitted as a direct admission transfer from [facility]. He is admitted with Infected left [...] diabetic wound ulceration with possible osteomyelitis/gangrenous changes/cellulitis Ammunition Assembly Ii Laborer was consulted Wound care nurse consulted Started [...] Use) oral gel, Oral, PRN ? HYDROcodone-acetaminophen (Fulton) 5-325 MG tablet 1 tablet, Oral, q4h [...] 9 Anticipated Discharge Date: 05/25/20 PCP: Leeroy Sheehan DO Per nursing assessments: Transportation at discharge: Family Mail Sorting Supervisor/Support Person - Relationship:: Marlys Marrero Mail Sorting Supervisor/Support Person Contact #: [phone] Home/Functional Status: Functional and Cognitive Status Is [...] For any questions or needs please contact: Scoop Operator Name/Phone number: Ramona Cuellar RN [phone] * Mario George PharmD - 05/23/2020 6:19 [...] and adjust regimen as necessary. Mario George PharmAhsan, 05/23/2020 6:19 AM * Nguyễn Farley RN [...] Present Illness: Admit to Inpatient Status Taye Marrerois a 64 year old male who is admitted as a direct admission transfer from [facility]. He is admitted with Infected left [...] 11:58 AM CDT Surgeon: Stephanie Tapia MD Road Machine Operator: Kelsey BLAND Pre-Procedure diagnosis: osteomyelitis Time out [...] IP CONSULT TO HOME HEALTH CARE Per community case manager/social work, patient [facility] Home care is not needed at this time. Thank you for this referral. Roz Swan Admissions Associate [facility] * Chidi Madrigal DO - 05/24/2020 8:44 [...] file Gets together: Not on file Attends denominational service: Not on file Active member of [...] results for input(s): PTT in the last 67203 hours. IMAGING: IMPRESSION ?? No evidence of [...] treated at a wound care center in [place]. Patient seen his primary care provider who recommended he go to the emergency room, which transferred him here to [facility] to see a specialist as the previous [...] for input(s): ESR, SEDRATE in the last 03484 hours. ROS Allergy and Immunology ROS: Allergies [...] Bhat DPM - 05/26/2020 12:17 AM CDT [facility] OPERATIVE REPORT PATIENT NAME: TAYE MARRERO MR#: [id number] ROOM#: [id number] CSN: [id number] SURGEON: RAJINDER BHAT DPM SEX: M : 1955 SURGERY DATE: 05/25/2020 SURGEON: Maxi Neville DPM SENIOR NET ARCHITECT: Rajinder Bhat DPM, PGY-1. PREOPERATIVE DIAGNOSES: 1. [...] foot. DICTATOR: RAJINDER BHAT DPM KF/MODL #: [id number] * OR PostOp - Yohana Calloway RN - 05/25/2020 2:13 PM CDT PACU REPORT NOTE: DIRECTOR NON PROFIT: Yohana Groves ASCOM#: [id number] Orientation level: A&O x4 Isolation: no Procedure: LEFT HEEL ULCER DEBRIDMENT WITH PARTIAL CALCANECTOMY Surgical site/dressing: abd/kerlex roll Block: no Coats: no voided in PACU: Drains: no EBL: 100ml Accucheck: 182- no treatment per anesthesia VS: vss PONV: no O2: RA Last pain med/time: None needed SUPERVISOR DUMPING/settings: n/a IV Fluids: Bag#: 1 TC: 150ml [...] POINT OF CARE (05/29/2020 11:16 AM CDT) Glucose WB/POC 305(H) 70 - 106 mg/dL 05/29/2020 11:34 AM CDT [facility] Specimen Type Arterial/C apillary 05/29/2020 11:34 AM CDT [facility] Blood BLOOD SPECIMEN / Unknown 05/29/2020 11:16 AM CDT 05/29/2020 11:33 AM CDT Carroll Briseno MD LAB - POINT OF CARE ORDERABLES [facility] [address] [place] [address] * SARS-COV-2 (COVID-19) RAPID (05/29/2020 10:54 AM CDT) Pathologist [facility] COVID-19 PCR Not detected Not detected 05/29/2020 1:02 PM CDT [facility] Microbiology SPECIMEN FROM NASOPHARYNGEAL STRUCTURE / Unknown 05/29/2020 10:54 AM CDT 05/29/2020 12:00 PM CDT Narrative [facility] - 05/29/2020 1:02 PM CDT The [employer] X[employer] Xpress SARS-COV-2 has been authorized by [...] Carroll Briseno MD LAB - MICROBIOLOGY ORDERABLES [facility] [address] [place] [phone] * (ABNORMAL) GLUCOSE - POINT OF CARE (05/29/2020 7:48 AM CDT) Pathologist [facility] Glucose WB/POC 287(H) 70 - 106 mg/dL 05/29/2020 9:47 AM CDT [facility] Specimen Type Arterial/C apillary 05/29/2020 9:47 AM CDT [facility] Blood BLOOD SPECIMEN / Unknown 05/29/2020 7:48 AM CDT 05/29/2020 9:47 AM CDT Carroll Briseno MD LAB - POINT OF CARE ORDERABLES [facility] [address] [place] [address] * (ABNORMAL) CBC W AUTO DIFFERENTIAL (05/29/2020 3:37 AM CDT) WBC 8.9 4.4 - 10.7 x10E9/L 05/29/2020 4:32 AM CDT [facility] WBC Corrected 05/29/2020 4:32 AM CDT [facility] RBC 5.42(H) 3.80 - 5.40 x10E12/L 05/29/2020 4:32 AM CDT [facility] Hemoglobin 14.8 12.0 - 17.6 gm/dL 05/29/2020 4:32 AM CDT [facility] Hematocrit 49.2 35.2 - 51.7 % 05/29/2020 4:32 AM CDT [facility] MCV 90.8 80.7 - 98.3 fl 05/29/2020 4:32 AM CDT [facility] MCH 27.3 26.7 - 34.0 pg 05/29/2020 4:32 AM CDT [facility] MCHC 30.1(L) 30.8 - 35.9 gm/dL 05/29/2020 4:32 AM CDT [facility] Platelet Count 356 153 - 416 x10E9/L 05/29/2020 4:32 AM CDT [facility] RDW-CV 14.7 12.1 - 14.9 % 05/29/2020 4:32 AM CDT [facility] MPV 9.6 9.4 - 12.9 fl 05/29/2020 4:32 AM CDT [facility] Neutrophils % 66.8 44.0 - 73.0 % 05/29/2020 4:32 AM CDT [facility] Lymphocytes % 16.6(L) 20.0 - 43.0 % 05/29/2020 4:32 AM CDT [facility] Monocytes % 8.9 5.0 - 13.0 % 05/29/2020 4:32 AM CDT [facility] Eosinophils % 5.6 0.0 - 6.0 % 05/29/2020 4:32 AM CDT [facility] Basophils % 1.2 0.0 - 2.0 % 05/29/2020 4:32 AM CDT [facility] Immature Granulocytes 0.9 0 - 1 % 05/29/2020 4:32 AM CDT [facility] Neutrophil Absolute 5.91 2.01 - 7.14 x10E9/L 05/29/2020 4:32 AM CDT [facility] Lymphocytes Absolute 1.47 1.07 - 3.94 x10E9/L 05/29/2020 4:32 AM CDT [facility] Monocytes Absolute 0.79 0.26 - 1.07 x10E9/L 05/29/2020 4:32 AM T [facility] Eosinophils Absolute 0.50(H) 0 - 0.47 x10E9/L 05/29/2020 4:32 AM CDT [facility] Basophils Absolute 0.11(H) 0 - 0.08 x10E9/L 05/29/2020 4:32 AM CDT [facility] Immature Granulocytes Absolute 0.08(H) 0.00 - 0.06 x10E9/L 05/29/2020 4:32 AM [facility] nRBC Auto 0 /100 WBC 05/29/2020 4:32 AM [facility] Blood BLOOD SPECIMEN / Unknown Lab Venipuncture / Unknown 05/29/2020 3:37 AM CDT 05/29/2020 4:29 AM CDT Bobby Doyle MD LAB - HEMATOLOGY ORD ERABLES [facility] [address] [facility] [place] [address] * (ABNORMAL) BASIC METABOLIC PANEL (CALCIUM TOTAL) (05/29/2020 3:37 AM CDT) [facility] Glucose 260(H) 70 - 105 mg/dL 05/29/2020 5:03 AM CDT [facility] Sodium 136 136 - 145 mmol/L 05/29/2020 5:03 AM CDT [facility] Potassium 3.9 3.5 - 5.1 mmol/L 05/29/2020 5:03 AM CDT [facility] Chloride 97(L) 98 - 107 mmol/L 05/29/2020 5:03 AM CDT [facility] CO2 31 23 - 31 mmol/L 05/29/2020 5:03 AM CDT [facility] Calcium 10.3 8.4 - 10.4 mg/dL 05/29/2020 5:03 AM T [facility] Anion Gap 8 8 - 18 mmol/L 05/29/2020 5:03 AM T [facility] Comment:Attention clinician: Reference Range change. BUN 19 8.4 - 25.7 mg/dL 05/29/2020 5:03 AM T [facility] Creatinine 1.07 0.72 - 1.25 mg/dL 05/29/2020 5:03 AM T [facility] eGFR by MDRD >60 >60 mL/min/1.7 3m2 05/29/2020 5:03 AM T [facility] eGFR by MDRD >60 >60 mL/min/1.7 3m2 05/29/2020 5:03 AM CDT [facility] Blood BLOOD SPECIMEN / Unknown Lab Venipuncture / Unknown 05/29/2020 3:37 AM CDT 05/29/2020 4:29 AM CDT Bobby Doyle MD LAB - CHEMISTRY ORDYoni CUMMINS [facility] [address] [id number] * (ABNORMAL) GLUCOSE - POINT OF CARE (05/28/2020 10:32 PM CDT) Pathologist [facility] Glucose WB/POC 155(H) 70 - 106 mg/dL 05/28/2020 11:54 PM CDT [facility] Specimen Type Arterial/C apillary 05/28/2020 11:54 PM CDT [facility] Blood BLOOD SPECIMEN / Unknown 05/28/2020 10:32 PM CDT 05/28/2020 11:[address] MD LAB - POINT OF CARE ORDERABLES [facility] [address] [place] [address] * (ABNORMAL) GLUCOSE - POINT OF CARE (05/28/2020 5:34 PM CDT) Glucose WB/POC 252(H) 70 - 106 mg/dL 05/28/2020 6:10 PM CDT [facility] Specimen Type Arterial/C apillary 05/28/2020 6:10 PM CDT [facility] Blood BLOOD SPECIMEN / Unknown 05/28/2020 5:34 PM CDT 05/28/2020 6:10 PM CDT Bobby Doyle MD LAB - POINT OF CARE ORDERABLES Performing Organization Address [facility] Co de Phone Number [facility] [address] [place] [address] * (ABNORMAL) GLUCOSE - POINT OF CARE (05/28/2020 1:05 PM CDT) Glucose WB/POC 305(H) 70 - 106 mg/dL 05/28/2020 1:23 PM CDT [facility] Specimen Type Arterial/C apillary 05/28/2020 1:23 PM CDT [facility] Blood BLOOD SPECIMEN / Unknown 05/28/2020 1:05 PM CDT 05/28/2020 1:23 PM CDT Bobby Doyle MD LAB - POINT OF CARE ORDERABLES Performing Organization Address [facility] Co de Phone Number [facility] [address] [place] [address] * IR PICC LINE INSERT (05/28/2020 12:31 [...] - 106 mg/dL 05/28/2020 9:42 AM CDT [facility] Specimen Type Arterial/C apillary 05/28/2020 9:42 AM CDT [facility] Blood BLOOD SPECIMEN / Unknown 05/28/2020 9:34 AM CDT 05/28/2020 9:42 AM CDT Bobby Doyle MD LAB - POINT OF CARE ORDERABLES [facility] [address] [place] [address] * (ABNORMAL) GLUCOSE - POINT OF CARE (05/27/2020 8:31 PM CDT) Glucose WB/POC 309(H) 70 - 106 mg/dL 05/28/2020 1:54 AM CDT [facility] Specimen Type Arterial/C apillary 05/28/2020 1:54 AM CDT [facility] Blood BLOOD SPECIMEN / Unknown 05/27/2020 8:31 PM CDT 05/28/2020 1:54 AM CDT Jose Astudillo MD LAB - POINT OF CARE ORDERABLES [facility] [address] [place] [address] * (ABNORMAL) GLUCOSE - POINT OF CARE (05/27/2020 5:16 PM CDT) Glucose WB/POC 248(H) 70 - 106 mg/dL 05/27/2020 5:22 PM CDT [facility] Specimen Type Arterial/C apillary 05/27/2020 5:22 PM CDT [facility] Blood BLOOD SPECIMEN / Unknown 05/27/2020 5:16 PM CDT 05/27/2020 5:22 PM CDT Jose Astudillo MD LAB - POINT OF CARE ORDERABLES Performing Organization Address [facility]/ZIP Co de Phone Number [facility] [address] [place] [address] * (ABNORMAL) GLUCOSE - POINT OF CARE (05/27/2020 1:34 PM CDT) Glucose WB/POC 178(H) 70 - 106 mg/dL 05/27/2020 1:47 PM CDT [facility] Specimen Type Arterial/C apillary 05/27/2020 1:47 PM CDT [facility] Blood BLOOD SPECIMEN / Unknown 05/27/2020 1:34 PM CDT 05/27/2020 1:47 PM CDT Jose Astudillo MD LAB - POINT OF CARE ORDERABLES [facility] [address] [place] [address] * (ABNORMAL) GLUCOSE - POINT OF CARE (05/27/2020 8:51 AM CDT) Glucose WB/POC 236(H) 70 - 106 mg/dL 05/27/2020 9:39 AM CDT [facility] Specimen Type Arterial/C apillary 05/27/2020 9:39 AM CDT [facility] Blood BLOOD SPECIMEN / Unknown 05/27/2020 8:51 AM CDT 05/27/2020 9:39 AM CDT Jose Astudillo MD LAB - POINT OF CARE ORDERABLES Performing Organization Address City/[facility] Co de Phone Number [facility] [address] [place] [address] * (ABNORMAL) GLUCOSE - POINT OF CARE (05/26/2020 9:20 PM CDT) Glucose WB/POC 254(H) 70 - 106 mg/dL 05/26/2020 9:28 PM CDT [facility] Specimen Type Arterial/C apillary 05/26/2020 9:28 PM CDT [facility] Blood BLOOD SPECIMEN / Unknown 05/26/2020 9:20 PM CDT 05/26/2020 9:28 PM CDT Jose Astudillo MD LAB - POINT OF CARE ORDERABLES Performing Organization Address [facility] Co de Phone Number [facility] [address] [place] [address] * (ABNORMAL) GLUCOSE - POINT OF CARE (05/26/2020 5:23 PM CDT) Glucose WB/POC 305(H) 70 - 106 mg/dL 05/26/2020 5:33 PM CDT [facility] Specimen Type Arterial/C apillary 05/26/2020 5:33 PM CDT [facility] Blood BLOOD SPECIMEN / Unknown 05/26/2020 5:23 PM CDT 05/26/2020 5:33 PM CDT Jose Astudillo MD LAB - POINT OF CARE ORDERABLES Performing Organization Address City/[facility]/ZIP Co de Phone Number [facility] [address] [place] [address] * (ABNORMAL) GLUCOSE - POINT OF CARE (05/26/2020 3:07 PM CDT) [facility] Glucose WB/POC 300(H) 70 - 106 mg/dL 05/26/2020 10:03 PM CDT [facility] Specimen Type Arterial/C apillary 05/26/2020 10:03 PM CDT [facility] Blood BLOOD SPECIMEN / Unknown 05/26/2020 3:07 PM CDT 05/26/2020 10:03 PM CDT Jose Astudillo MD LAB - POINT OF CARE ORDERABLES [facility] [address] [place] [address] * (ABNORMAL) GLUCOSE - POINT OF CARE (05/26/2020 8:42 AM CDT) [facility] Glucose WB/POC 316(H) 70 - 106 mg/dL 05/26/2020 5:19 PM CDT [facility] Specimen Type Arterial/C apillary 05/26/2020 5:19 PM CDT [facility] Blood BLOOD SPECIMEN / Unknown 05/26/2020 8:42 AM CDT 05/26/2020 5:19 PM CDT Jose Astudillo MD LAB - POINT OF CARE ORDERABLES [facility] [address] [place] [address] * (ABNORMAL) CBC W AUTO DIFFERENTIAL (05/26/2020 4:58 AM CDT) [facility] WBC 10.5 4.4 - 10.7 x10E9/L 05/26/2020 5:38 AM CDT [facility] WBC Corrected 05/26/2020 5:38 AM CDT [facility] RBC 5.14 3.80 - 5.40 x10E12/L 05/26/2020 5:38 AM CDT [facility] Hemoglobin 14.1 12.0 - 17.6 gm/dL 05/26/2020 5:38 [facility] Hematocrit 46.5 35.2 - 51.7 % 05/26/2020 5:38 AM [facility] MCV 90.5 80.7 - 98.3 fl 05/26/2020 5:38 [facility] MCH 27.4 26.7 - 34.0 pg 05/26/2020 5:38 AM [facility] MCHC 30.3(L) 30.8 - 35.9 gm/dL 05/26/2020 5:38 AM [facility] Platelet Count 302 153 - 416 x10E9/L 05/26/2020 5:38 AM [facility] RDW-CV 14.6 12.1 - 14.9 % 05/26/2020 5:38 AM [facility] MPV 10.1 9.4 - 12.9 fl 05/26/2020 5:38 AM [facility] Neutrophils % 86.1(H) 44.0 - 73.0 % 05/26/2020 5:38 AM [facility] Lymphocytes % 6.8(L) 20.0 - 43.0 % 05/26/2020 5:38 AM [facility] Monocytes % 6.1 5.0 - 13.0 % 05/26/2020 5:38 AM [facility] Eosinophils % 0.2 0.0 - 6.0 % 05/26/2020 5:38 AM [facility] Basophils % 0.3 0.0 - 2.0 % 05/26/2020 5:38 AM [facility] Immature Granulocytes 0.5 0 - 1 % 05/26/2020 5:38 AM [facility] Neutrophil Absolute 9.08(H) 2.01 - 7.14 x10E9/L 05/26/2020 5:38 AM [facility] Lymphocytes Absolute 0.72(L) 1.07 - 3.94 x10E9/L 05/26/2020 5:38 AM [facility] Monocytes Absolute 0.64 0.26 - 1.07 x10E9/L 05/26/2020 5:38 AM [facility] Eosinophils Absolute 0.02 0 - 0.47 x10E9/L 05/26/2020 5:38 AM CDT [facility] Basophils Absolute 0.03 0 - 0.08 x10E9/L 05/26/2020 5:38 AM [facility] Immature Granulocytes Absolute 0.05 0.00 - 0.06 x10E9/L 05/26/2020 5:38 AM [facility] nRBC Auto 0 /100 WBC 05/26/2020 5:38 AM [facility] Blood BLOOD SPECIMEN / Unknown Lab Venipuncture / Unknown 05/26/2020 4:58 AM CDT 05/26/2020 5:33 AM T Bridgette Mason MD LAB - HEMATOLOGY ORD ERABLES [facility] [address] [place] [address] * (ABNORMAL) RENAL FUNCTION PANEL (05/26/2020 4:58 AM CDT) Glucose 345(H) 70 - 105 mg/dL 05/26/2020 6:05 AM [facility] Sodium 134(L) 136 - 145 mmol/L 05/26/2020 6:05 AM [facility] Potassium 5.0 3.5 - 5.1 mmol/L 05/26/2020 6:05 AM [facility] Chloride 100 98 - 107 mmol/L 05/26/2020 6:05 AM [facility] CO2 28 23 - 31 mmol/L 05/26/2020 6:05 AM [facility] Calcium 9.7 8.4 - 10.4 mg/dL 05/26/2020 6:05 AM [facility] Anion Gap 6(L) 8 - 18 mmol/L 05/26/2020 6:05 AM [facility] Comment:Attention clinician: ??Reference Range change. BUN 18 8.4 - 25.7 mg/dL 05/26/2020 6:05 AM [facility] Creatinine 1.11 0.72 - 1.25 mg/dL 05/26/2020 6:05 AM CDT [facility] Albumin 2.8(L) 3.2 - 4.6 gm/dL 05/26/2020 6:05 AM CDT [facility] Phosphorus 3.7 2.3 - 4.7 mg/dL 05/26/2020 6:05 AM T [facility] Comment:Attention clinician: ??Reference Range change. eGFR by MDRD >60 >60 mL/min/1.7 3m2 05/26/2020 6:05 AM T [facility] eGFR by MDRD >60 >60 mL/min/1.7 3m2 05/26/2020 6:05 AM CDT [facility] Blood BLOOD SPECIMEN / Unknown Lab Venipuncture / Unknown 05/26/2020 4:58 AM CDT 05/26/2020 5:30 AM CDT Bridgette Mason MD LAB - CHEMISTRY ORDYoni CUMMINS Performing Organization Address City/[facility]/ZIP Co de Phone Number [facility] [address] [place] [address] * (ABNORMAL) GLUCOSE - POINT OF CARE (05/25/2020 8:43 PM CDT) Glucose WB/POC 322(H) 70 - 106 mg/dL 05/26/2020 1:33 AM CDT [facility] Specimen Type Arterial/C apillary 05/26/2020 1:33 AM CDT [facility] Blood BLOOD SPECIMEN / Unknown 05/25/2020 8:43 PM CDT 05/26/2020 1:33 AM CDT Bridgette Mason MD LAB - POINT OF CARE ORDERABLES Performing Organization Address City/[facility]/ZIP Co de Phone Number [facility] [address] [place] [address] * (ABNORMAL) GLUCOSE - POINT OF CARE (05/25/2020 6:55 PM CDT) Glucose WB/POC 205(H) 70 - 106 mg/dL 05/26/2020 5:23 AM CDT [facility] Specimen Type Arterial/C apillary 05/26/2020 5:23 AM CDT [facility] Blood BLOOD SPECIMEN / Unknown 05/25/2020 6:55 PM CDT 05/26/2020 5:23 AM CDT Bridgette Mason MD LAB - POINT OF CARE ORDERABLES Performing Organization Address City/[facility]/ZIP Co de Phone Number [facility] [address] [place] [address] * (ABNORMAL) GLUCOSE - POINT OF CARE (05/25/2020 2:14 PM CDT) Glucose WB/POC 182(H) 70 - 106 mg/dL 05/25/2020 2:19 PM CDT [facility] Specimen Type Arterial/C apillary 05/25/2020 2:19 PM CDT [facility] Blood BLOOD SPECIMEN / Unknown 05/25/2020 2:14 PM CDT 05/25/2020 2:19 PM CDT Bridgette Mason MD LAB - POINT OF CARE ORDERABLES Performing Organization Address City/[facility]/ZIP Co de Phone Number [facility] [address] [place] [address] * (ABNORMAL) CULTURE TISSUE+GRAM STAIN (05/25/2020 1:43 PM CDT) Culture Moderate Streptococcus constellatus(AA) ADAM 05/30/2020 6:04 AM CDT [facility] Culture Moderate Streptococcus anginosus(AA) ADAM 05/30/2020 6:04 AM CDT [facility] Culture Light Corynebacterium aurimucosum(AA) ADAM 05/30/2020 6:04 AM CDT [facility] Comment:No further workup pe rformed Gram Stain No organisms seen 021 6:04 AM CDT [facility] Gram Stain Moderate Polymorphonuclear cells 05/30/2020 6:04 AM CDT [facility] Gram Stain 05/30/2020 6:04 AM CDT [facility] Comment:Gpc?? Microbiology BONE SPECIMEN / Unknown 05/25/2020 1:43 PM CDT 05/25/2020 2:49 PM CDT Narrative [facility] - 05/30/2020 6:04 AM CDT Surgical [...] Neville DPM LAB - MICROBIOLOG Y ORDERABLES [facility] [address] [place] [address], [facility] [phone] * CULTURE ANAEROBE (05/25/2020 1:43 PM CDT) Culture No anaerobic organisms isolated ADAM 05/30/2020 9:33 AM CDT [facility] Microbiology BONE SPECIMEN / Unknown 05/25/2020 1:43 PM CDT 05/25/2020 2:49 PM CDT Narrative [facility] - 05/30/2020 9:33 AM CDT Surgical Description: Left Heel Calcaneous Fragments For Culture Maxi Neville DPM LAB - MICROBIOLOG Y ORDERABLES [facility] [address] [place] [address], [facility] [phone] * PATHOLOGY TISSUE EXAM (STL) (05/25/2020 1:42 PM CDT) Case Report Surgical Pathology Report ? Case: [id number] ? Authorizing Provider: ??Maxi Neville DPM ?? Collected: ? 05/25/2020 01:42 PM ? Ordering Location: ? [facility] ? Received: ?05/28/2020 08:28 AM ? Pathologist: ? Arya Moon MD ? Specimen: ?Bone, left heel calcaneous fragments ? 05/30/2020 3:27 PM CDT [facility] Final Diagnosis Left calcaneus fragment, resection: -- Acute osteomyelitis MC 05/30/2020 3:27 PM CDT [facility] Clinical History Diabetic foot ulcer, osteomyelitis of left calcaneus 05/30/2020 3:27 PM CDT [facility] Gross Description One specimen received in a formalin filled container labeled left calcaneus fragment? consists of an irregular shaped 3.5 x 2.8 x 1.6 cm portion of dusky street-brown bone with attached shaggy street red rubbery tissue. Specimen is sectioned to reveal street-red bone throughout and dental detail representative sections submitted in A1 after decalcification. 05/30/2020 3:27 PM T [facility] Microscopic Description Sections of the left calcaneus bone reveal bone with focal necroinflammatory material, consistent with osteomyelitis. 05/30/2020 3:27 PM T [facility] Disclaimer All histochemical and/or immunohistochemical results [...] interpreted with caution. 05/30/2020 3:27 PM CDT [facility] Embedded Images 05/30/2020 3:27 PM CDT [facility] Pathology/Cytolo gy BONE SPECIMEN / Unknown 05/25/2020 1:42 PM CDT 05/28/2020 8:28 AM CDT Maxi Neville DPM LAB - PATHOLOGY/C YTOLOGY ORDERABLES [facility] [address] [place] [address] * MAGNESIUM BLOOD (05/25/2020 3:48 AM CDT) Magnesium 1.6 1.6 - 2.6 mg/dL 05/25/2020 4:34 AM CDT [facility] Blood BLOOD SPECIMEN / Unknown Lab Venipuncture / Unknown 05/25/2020 3:48 AM CDT 05/25/2020 4:03 AM CDT Bridgette Mason MD LAB - CHEMISTRY JUANJO CUM[place] [facility] Organization Address City/State/ZIP Co de Phone Number [facility] [address] [place] [address] * (ABNORMAL) RENAL FUNCTION PANEL (05/25/2020 3:48 AM CDT) [facility] Glucose 174(H) 70 - 105 mg/dL 05/25/2020 4:34 AM [facility] Sodium 135(L) 136 - 145 mmol/L 05/25/2020 4:34 AM [facility] Potassium 3.7 3.5 - 5.1 mmol/L 05/25/2020 4:34 AM [facility] Chloride 100 98 - 107 mmol/L 05/25/2020 4:34 AM [facility] CO2 26 23 - 31 mmol/L 05/25/2020 4:34 AM [facility] Calcium 10.0 8.4 - 10.4 mg/dL 05/25/2020 4:34 AM [facility] Anion Gap 9 8 - 18 mmol/L 05/25/2020 4:34 AM [facility] Comment:Attention clinician: ??Reference Range change. BUN 12 8.4 - 25.7 mg/dL 05/25/2020 4:34 AM [facility] Creatinine 0.85 0.72 - 1.25 mg/dL 05/25/2020 4:34 AM [facility] Albumin 2.9(L) 3.2 - 4.6 gm/dL 05/25/2020 4:34 AM [facility] Phosphorus 3.0 2.3 - 4.7 mg/dL 05/25/2020 4:34 AM [facility] Comment:Attention clinician: ??Reference Range change. eGFR by MDRD >60 >60 mL/min/1.7 3m2 05/25/2020 4:34 AM [facility] eGFR by MDRD >60 >60 mL/min/1.7 3m2 05/25/2020 4:34 AM CDT [facility] Blood BLOOD SPECIMEN / Unknown Lab Venipuncture / Unknown 05/25/2020 3:48 AM CDT 05/25/2020 4:03 AM CDT Bridgette Mason MD LAB - CHEMISTRY ORDE RABLES [facility] [address] [place] [address] * (ABNORMAL) GLUCOSE - POINT OF CARE (05/24/2020 7:43 PM CDT) Glucose WB/POC 193(H) 70 - 106 mg/dL 05/24/2020 9:27 PM CDT [facility] Specimen Type Arterial/C apillary 05/24/2020 9:27 PM CDT [facility] Blood BLOOD SPECIMEN / Unknown 05/24/2020 7:43 PM CDT 05/24/2020 9:27 PM CDT Bridgette Mason MD LAB - POINT OF CARE ORDERABLES Performing Organization Address [facility]/ZIP Co de Phone Number [facility] [address] [place] [address] * VANCOMYCIN LEVEL TROUGH (05/24/2020 6:44 PM CDT) Vancomycin Trough 20.0 10.0 - 20.0 ug/mL 05/24/2020 7:08 PM CDT [facility] Blood BLOOD SPECIMEN / Unknown Lab Venipuncture / Unknown 05/24/2020 6:44 PM CDT 05/24/2020 6:47 PM CDT Soren Renee MD LAB - CHEMISTRY OR DERABLES Performing Organization Address City/[facility]/ZIP Co de Phone Number [facility] [address] [place] [address] * (ABNORMAL) GLUCOSE - POINT OF CARE (05/24/2020 5:22 PM CDT) Glucose WB/POC 257(H) 70 - 106 mg/dL 05/24/2020 5:28 PM CDT [facility] Specimen Type Arterial/C apillary 05/24/2020 5:28 PM CDT [facility] Blood BLOOD SPECIMEN / Unknown 05/24/2020 5:22 PM CDT 05/24/2020 5:27 PM CDT Bridgette Mason MD LAB - POINT OF CARE ORDERABLES [facility] [address] [place] [address] * VAS ARTERIAL ANKLE ARM INDEX (05/24/2020 3:31 PM CDT) Anatomical Region Laterality Modality Ankle / Foot, Upper Extremity In travascular Ultrasound 05/24/2020 2:54 PM CDT Narrative Procedure Note Edy Reynolds II, MD - 05/24/[address] [facility] [address] [place] [address] Lower Extremity Arterial Doppler Report Pat.Name: HEBERT TAYE Yuli.ID: [id number] .Date: 05/24/2020 Exam Time: 2:54:00 PM Study Type:SOFIA/PVR Age: 6 1955,64Y Sex: MALE Sonogrphr: Quiana Eli RVT, [facility] Pat. Stat.:Inpatient Room: 558 CPT - 4: 43193 Reason for Study: Left foot wound History / Clinical: Obesity, Smoking - quit >6mo. Procedures: Ankle Brachial Index Race: 1 Visit ID: [id number] ++++++++++++++++++++++++++++++++++++ SUMMARY: ++++++++++++++++++++++++++++++++++++ No evidence for significant [...] DBI 0.74 Signed 05/24/2020 04:44 PM Edy (JENNIFER) SOLOMON Reynolds MD, RVT Chidi Madrigal DO [...] the discretion of the reading radiologist and diagnostic technologist. FINDINGS: Alignment of the hindfoot and [...] the discretion of the reading radiologist and diagnostic technologist. FINDINGS: Alignment of the hindfoot and [...] POINT OF CARE (05/24/2020 12:09 PM CDT) [facility] Glucose WB/POC 297(H) 70 - 106 mg/dL 05/24/2020 12:25 PM CDT [facility] Specimen Type Arterial/C apillary 05/24/2020 12:25 PM CDT [facility] Blood BLOOD SPECIMEN / Unknown 05/24/2020 12:09 PM CDT 05/24/2020 12:25 PM CDT Bridgette Mason MD LAB - POINT OF CARE ORDERABLES [facility] [address] [place] [address] * (ABNORMAL) GLUCOSE - POINT OF CARE (05/24/2020 7:52 AM CDT) [facility] Glucose WB/POC 194(H) 70 - 106 mg/dL 05/24/2020 8:40 AM CDT [facility] Specimen Type Arterial/C apillary 05/24/2020 8:40 AM CDT [facility] Blood BLOOD SPECIMEN / Unknown 05/24/2020 7:52 AM CDT 05/24/2020 8:40 AM CDT Bridgette Mason MD LAB - POINT OF CARE ORDERABLES Performing Organization Address City/[facility]/ZIP Co de Phone Number [facility] [address] [place] [address] * (ABNORMAL) GLUCOSE - POINT OF CARE (05/23/2020 8:29 PM CDT) Glucose WB/POC 241(H) 70 - 106 mg/dL 05/24/2020 12:26 AM CDT [facility] Specimen Type Arterial/C apillary 05/24/2020 12:26 AM CDT [facility] Blood BLOOD SPECIMEN / Unknown 05/23/2020 8:29 PM CDT 05/24/2020 12:26 AM CDT Bridgette Mason MD LAB - POINT OF CARE ORDERABLES Performing Organization Address [facility]/ZIP Co de Phone Number [facility] [address] [place] [address] * (ABNORMAL) GLUCOSE - POINT OF CARE (05/23/2020 5:14 PM CDT) Glucose WB/POC 213(H) 70 - 106 mg/dL 05/23/2020 7:26 PM CDT [facility] Specimen Type Arterial/C apillary 05/23/2020 7:26 PM CDT [facility] Blood BLOOD SPECIMEN / Unknown 05/23/2020 5:14 PM CDT 05/23/2020 7:26 PM CDT Bridgette Mason MD LAB - POINT OF CARE ORDERABLES Performing Organization Address City/[facility]/ZIP Co de Phone Number [facility] [address] [place] [address] * (ABNORMAL) CULTURE TISSUE+GRAM STAIN (05/23/2020 4:49 PM CDT) Culture Heavy Streptococcus anginosus(AA) 05/27/2020 6:32 AM CDT [facility] Culture Light Proteus vulgaris(AA) ADAM 05/27/2020 6:32 AM CDT [facility] Culture Light Staphylococcus aureus(AA) ADAM 05/27/2020 6:32 AM CDT [facility] Comment:Staphylococcus aureu s methicillin-susceptible (MSSA) detected by penicillin binding protein immunoassay. Culture Heavy Streptococcus constellatus(AA) 05/27/2020 6:32 AM CDT [facility] Gram Stain Moderate Red blood cells(AA) 05/27/2020 6:32 AM CDT [facility] Gram Stain Heavy Gram-positive cocci(AA) 05/27/2020 6:32 AM CDT [facility] [facility] MICROBIOLOGY Gram Stain Light Gram-variable bacilli(AA) 05/27/2020 6:32 AM CDT [facility] MICROBIOLOGY Microbiology ENTIRE FOOT / [...] Bridgette Mason MD LAB - MICROBIOLOGY O JEFE Performing Organization Address City/[facility] Co de Phone Number [facility] [address] [facility] [address], [facility] [phone] * (ABNORMAL) CULTURE ANAEROBE (05/23/2020 3:00 PM CDT) Culture Light Prevotella species(A) ADAM 05/29/2020 8:11 AM CDT [facility]CRO[facility] Comment:Beta-lactamase posit dodie Microbiology ENTIRE FOOT / Unknown 05/23/2020 3:00 PM CDT 05/23/2020 3:09 PM CDT Bridgette Mason MD LAB - MICROBIOLOGY O JEFE Performing Organization Address [facility] Co de Phone Number [facility] [address] [facility] [place] [address], [facility] [phone] * XR CALCANEUS LEFT 2VW OR MORE [...] on 05/23/2020 at 5:17 PM Maxi Neville DPM DIAGNOSTIC ZAHRAA Reyes ORDERABLES * (ABNORMAL) GLUCOSE - POINT OF CARE (05/23/2020 1:07 PM CDT) Glucose WB/POC 260(H) 70 - 106 mg/dL 05/23/2020 1:23 PM CDT [facility] Specimen Type Arterial/C apillary 05/23/2020 1:23 PM CDT [facility] Blood BLOOD SPECIMEN / Unknown 05/23/2020 1:07 PM CDT 05/23/2020 1:23 PM CDT Bridgette Mason MD LAB - POINT OF CARE ORDERABLES [facility] [address] [place] [address] * VAS BILATERAL VENOUS DUPLEX LE (05/23/2020 9:58 AM CDT) Anatomical Region Laterality Modality Lower Extremity Intravascular Ul trasound 05/23/2020 9:32 AM CDT Narrative Procedure Note Edy Reynolds Sr., MD - 05/23/[address] [facility] [address] [place] [address] Lower Extremity Venous Ultrasound Report Pat.Name: TAYE MARRERO Pat.ID: [id number] .Date: 05/23/2020 Refer.MD: Soren Renee Exam Time: 9:32:00 AM Study Type:LE Venous Weight: 337lb Age: 6 1955,64Y Sex: MALE Sonogrphr: Nba Ag RVT, RDMS Pat. Stat.:Inpatient Room: [facility] CPT - 4: 99991 Reason for Study: Edema, Bilateral leg wounds History / Clinical: Obesity Procedures: Lower Extremity Venous - Bilateral Race: 1 Visit ID: [id number] ++++++++++++++++++++++++++++++++++++ SUMMARY: ++++++++++++++++++++++++++++++++++++ No evidence of deep [...] POINT OF CARE (05/23/2020 9:53 AM CDT) [facility] Glucose WB/POC 193(H) 70 - 106 mg/dL 05/23/2020 10:00 AM CDT [facility] Specimen Type Arterial/C apillary 05/23/2020 10:00 AM CDT [facility] Blood BLOOD SPECIMEN / Unknown 05/23/2020 9:53 AM CDT 05/23/2020 10:00 AM CDT Bridgette Mason MD LAB - POINT OF CARE ORDERABLES Performing Organization Address City/State/[facility] Co de Phone Number [facility] [address] [place] [address] * (ABNORMAL) HEMOGLOBIN A1C (05/23/2020 5:06 AM CDT) [facility] Hemoglobin A1c 11.3(H) 4.2 - 5.6 % 05/25/2020 1:24 AM CDT [facility] Estimated Average Glucose 278 mg/dL 05/25/2020 1:24 AM CDT [facility] Blood BLOOD SPECIMEN / Unknown Lab Venipuncture / Unknown 05/23/2020 5:06 AM CDT 05/23/2020 5:13 AM CDT Narrative [facility] - 05/25/2020 1:24 AM CDT The following cutoff levels are recommended by [place] [employer]. ?? A1c ??> 6.5% : [...] specimen. Bridgette Mason MD LAB - CHEMISTRY ORDE RABCESILIA Performing Organization Address City/[facility] Co de Phone Number [facility] [address] [place] [address] * LACTIC ACID BLOOD (05/23/2020 5:06 AM CDT) [facility] Lactic Acid 1.1 0.5 - 2.2 mmol/L 05/23/2020 5:31 AM CDT [facility] Blood BLOOD SPECIMEN / Unknown Lab Venipuncture / Unknown 05/23/2020 5:06 AM CDT 05/23/2020 5:13 AM CDT Soren Renee MD LAB - CHEMISTRY OR DERABLES Performing Organization Address [facility]/ZIP Co de Phone Number [facility] [address] [place] [address] * (ABNORMAL) PT-INR (05/23/2020 5:06 AM CDT) Pathologist [facility] PT 14.8 12.1 - 14.8 sec 05/23/2020 5:57 AM CDT [facility] INR 1.2(H) 0.9 - 1.1 05/23/2020 5:57 AM CDT [facility] Blood BLOOD SPECIMEN / Unknown Lab Venipuncture / Unknown 05/23/2020 5:06 AM CDT 05/23/2020 5:13 AM CDT Narrative [facility] - 05/23/2020 5:57 AM CDT Conventional Warfarin Anticoagulant Therapy: INR Reference Range: ??2.0-3.0 Intensive Warfarin Anticoagulant Therapy: INR Reference Range: ? 2.5-3.5 Soren Renee MD LAB - COAGULATION ORDERABLES Performing Organization Address [facility] Co de Phone Number [facility] [address] [place] [address] * (ABNORMAL) MAGNESIUM BLOOD (05/23/2020 5:06 AM CDT) Magnesium 1.4(L) 1.6 - 2.6 mg/dL 05/23/2020 5:35 AM CDT [facility] Blood BLOOD SPECIMEN / Unknown Lab Venipuncture / Unknown 05/23/2020 5:06 AM CDT 05/23/2020 5:13 AM CDT Soren Renee MD LAB - CHEMISTRY OR DERABLES Performing Organization Address [facility]/ZIP Co de Phone Number [facility] [address] [place] [address] * (ABNORMAL) COMPREHENSIVE METABOLIC PANEL (05/23/2020 5:06 AM CDT) Glucose 200(H) 70 - 105 mg/dL 05/23/2020 5:35 AM CDT [facility] Sodium 134(L) 136 - 145 mmol/L 05/23/2020 5:35 AM CDT [facility] Potassium 4.4 3.5 - 5.1 mmol/L 05/23/2020 5:35 AM CDT [facility] Chloride 99 98 - 107 mmol/L 05/23/2020 5:35 AM CDT [facility] CO2 26 23 - 31 mmol/L 05/23/2020 5:35 AM CDT [facility] Calcium 9.9 8.4 - 10.4 mg/dL 05/23/2020 5:35 AM CDT [facility] Anion Gap 9 8 - 18 mmol/L 05/23/2020 5:35 AM CDT [facility] Comment:Attention clinician: ??Reference Range change. BUN 14 8.4 - 25.7 mg/dL 05/23/2020 5:35 AM CDT [facility] Creatinine 0.86 0.72 - 1.25 mg/dL 05/23/2020 5:35 AM CDT [facility] Alkaline Phosphatase 82 40 - 150 U/L 05/23/2020 5:35 AM CDT [facility] Comment:Attention clinician: ??Reference Range change. ALT 11 0 - 61 U/L 05/23/2020 5:35 AM CDT [facility] AST 11 5 - 34 U/L 05/23/2020 5:35 AM CDT [facility] Protein Total 7.4 6.4 - 8.3 gm/dL 05/23/2020 5:35 AM CDT [facility] Albumin 2.8(L) 3.2 - 4.6 gm/dL 05/23/2020 5:35 AM CDT [facility] Bilirubin Total 0.5 0.2 - 1.2 mg/dL 05/23/2020 5:35 AM CDT [facility] Comment:Attention clinician: ??Reference Range change. eGFR by MDRD >60 >60 mL/min/1.7 3m2 05/23/2020 5:35 AM CDT [facility] eGFR by MDRD >60 >60 mL/min/1.7 3m2 05/23/2020 5:35 AM CDT [facility] Blood BLOOD SPECIMEN / Unknown Lab Venipuncture / Unknown 05/23/2020 5:06 AM CDT 05/23/2020 5:13 AM CDT Soren Renee MD LAB - CHEMISTRY OR DERABLES [facility] [address] [facility] [place] [address] * (ABNORMAL) CBC W AUTO DIFFERENTIAL (05/23/2020 5:06 AM CDT) WBC 9.8 4.4 - 10.7 x10E9/L 05/23/2020 5:16 AM CDT [facility] WBC Corrected 05/23/2020 5:16 AM CDT [facility] RBC 5.00 3.80 - 5.40 x10E12/L 05/23/2020 5:16 AM CDT [facility] Hemoglobin 13.8 12.0 - 17.6 gm/dL 05/23/2020 5:16 AM CDT [facility] Hematocrit 44.1 35.2 - 51.7 % 05/23/2020 5:16 AM CDT [facility] MCV 88.2 80.7 - 98.3 fl 05/23/2020 5:16 AM CDT [facility] MCH 27.6 26.7 - 34.0 pg 05/23/2020 5:16 AM CDT [facility] MCHC 31.3 30.8 - 35.9 gm/dL 05/23/2020 5:16 AM CDT [facility] Platelet Count 273 153 - 416 x10E9/L 05/23/2020 5:16 AM CDT [facility] RDW-CV 14.6 12.1 - 14.9 % 05/23/2020 5:16 AM CDT [facility] MPV 9.5 9.4 - 12.9 fl 05/23/2020 5:16 AM CDT [facility] Neutrophils % 76.6(H) 44.0 - 73.0 % 05/23/2020 5:16 AM CDT [facility] Lymphocytes % 10.7(L) 20.0 - 43.0 % 05/23/2020 5:16 AM CDT [facility] Monocytes % 9.1 5.0 - 13.0 % 05/23/2020 5:16 AM CDT [facility] Eosinophils % 2.7 0.0 - 6.0 % 05/23/2020 5:16 AM CDT [facility] Basophils % 0.6 0.0 - 2.0 % 05/23/2020 5:16 AM CDT [facility] Immature Granulocytes 0.3 0 - 1 % 05/23/2020 5:16 AM CDT [facility] Neutrophil Absolute 7.51(H) 2.01 - 7.14 x10E9/L 05/23/2020 5:16 AM CDT [facility] Lymphocytes Absolute 1.05(L) 1.07 - 3.94 x10E9/L 05/23/2020 5:16 AM CDT [facility] Monocytes Absolute 0.89 0.26 - 1.07 x10E9/L 05/23/2020 5:16 AM CDT [facility] Eosinophils Absolute 0.26 0 - 0.47 x10E9/L 05/23/2020 5:16 AM CDT [facility] Basophils Absolute 0.06 0 - 0.08 x10E9/L 05/23/2020 5:16 AM CDT [facility] Immature Granulocytes Absolute 0.03 0.00 - 0.06 x10E9/L 05/23/2020 5:16 AM CDT [facility] nRBC Auto 0 /100 WBC 05/23/2020 5:16 AM CDT [facility] Blood BLOOD SPECIMEN / Unknown Lab Venipuncture / Unknown 05/23/2020 5:06 AM CDT 05/23/2020 5:13 AM CDT Soren Renee MD LAB - HEMATOLOGY O RDERABLES Performing Organization Address City/State/[facility] Co de Phone Number [facility] [address] [place] [phone] documented in this encounter Visit Diagnoses Diagnosis Open wound of left heel- Primary Open wound of left heel, initial encounter Diagnosis unknown Other unknown and unspecified cause of morbidity or mortality Cellulitis of left heel Cellulitis and abscess of foot, except toes * Assessment & Plan Note - Jose [...] Given 05/28/2020 9:05 PM CDT 3 mL 0.9% NaCl irrigation (SO) solution PRN, Starting on Thu05/25/20 at 1333, Until Thu05/25/20 at 1402, Intra-op $ Given 05/25/2020 1:47 PM CDT 1,000 mL Ope rative Site $ Given 05/25/2020 1:33 PM CDT 3,000 mL Op erative Site aspirin chew tablet 81 mg 81 mg, Oral, DAILY, First dose on Thu05/23/20 at 0900, Until Discontinued $ Given 05/29/2020 9:10 AM CDT 81 mg $ Given 05/28/2020 10:12 AM CDT 81 mg $ Given 05/27/2020 9:39 AM CDT 81 mg bupivacaine PF (Marcaine PF) 0.5 % injection PRN, Starting on Thu05/25/20 at 1335, Until Thu05/25/20 at 1402, Intra-op $ Given 05/25/2020 1:35 PM CDT 20 mL Operative Site cefTRIAXone (Rocephin) 2,000 mg in 0.9% NaCl [...] 05/27/2020 9:54 AM CDT 2,000 mg 100 mL /hr collagenase (Santyl) ointment Topical, DAILY, First dose [...] Given 05/28/2020 5:13 PM CDT 40 mg gabapentin (Neurontin) capsule 300 [...] 1 tube delivers 15 grams dextrose/carbohydrates HYDROcodone-acetaminophen (Fulton) 5-325 MG tablet 1 tablet 1 tablet, [...] CDT 10 Units Le ft Arm insulin glargine (Lantus) pen 25 Units 25 [...] Given 05/27/2020 9:40 AM CDT 10 mg morphine injection 2 mg 2 mg, Intravenous, [...] on Thu05/23/20 at 0302, Until Thu05/29/20 at 184, Administer IV if patient is NPO, actively [...] Given 05/28/2020 6:08 PM CDT 17 g pravastatin (Pravachol) tablet 40 mg 40 mg, [...] Given 05/26/2020 9:43 PM CDT 150 mg documented in this encounter Active and [...] Pritchard RN)1549 ($ Given - Provider: Marycruz Martinez, EMMA) aspirin chew tablet 81 mg 81 mg, [...] 1024 ($ Given - Provider: Marycruz Martinez RN)2106 ($ Given - Provider: Mirza Pritchard RN) [...] RN) 1020 ($ Given - Provider: Marycruz Martinez, EMMA) 0935 ($ Given - Provider: Marycruz Martinez, EMMA) levothyroxine (Synthroid) tablet 100 mcg 100 mcg, [...] Muller RN) 1012 ($ Given - Provider: Maryrcuz Martinez RN) 0911 ($ Given - Provider: [...] RN) 1630 ($ Given - Provider: Marycruz Martinez, EMMA) 0900 (Due) pravastatin (Pravachol) tablet 40 mg 40 mg, Oral, AT BEDTIME, First dose on Thu05/23/20 at 2100, Until Discontinued 2205 ($ Given - Provider: Scott Barron RN) 2105 ($ Given - Provider: Mirza Pritchard, EMMA) traZODone (Desyrel) tablet 150 mg 150 mg, [...] on Thu05/23/20 at 0259, Until Thu05/29/20 at 1845, Flush peripheral IV catheter with 1-10 mL of normal saline before and after medications and prn to clear blood from the line or to verify patency. 1549 ($ Given - Provider: Marycruz Martinez RN) albuterol HFA (Proventil;Ventolin;Proai r) 108 (90 Base) MCG/ACT inhaler 2 puff 2 puff, Inhalation, EVERY 6 HOURS PRN, Shortness of Breath, Starting on Thu05/23/20 at 0307, Until Thu05/29/20 at 1845, Shake well before using. WASTE DISPOSAL INSTRUCTION: Send to Pharmacy for Disposal. dextrose IV 12.5-25 g 12.5-25 g (25-50 mL), Intravenous, PRN, Bedside Glucose less than 70 mg/dL -If NOT able to eat and/or NPO and with IV Access, Starting on Thu05/23/20 at 0303, Until Thu05/29/20 at 1845, If NOT able to eat and/or NPO [...] at 0303, Until Thu05/29/20 at 184, If able to eat and can swallow [...] 1 tube delivers 15 grams dextrose/carbohydrates HYDROcodone-acetaminophen (Fulton) 5-325 MG tablet 1 tablet 1 tablet, Oral, EVERY 4 HOURS PRN, Moderate Pain, Starting on Thu05/23/20 at 0301, Until Thu05/29/20 at 1846 0949 ($ Given - Provider: Misael Mluler, RN)2206 ($ Given - Provider: Scott Barron, [...] on Thu05/28/20 at 1745, Until Thu05/29/20 at 184, Mix in 8 ounces of water, juice, soda, coffee or tea prior to administration 1808 ($ Given - Provider: Marycruz Martinez, RN) 0946 ($ Given - Provider: Marycruz Martinez, RN) throat lozenge 1 lozenge 1 lozenge, [...] swallow. documented in this encounter Care Teams Sql Programmer Relationship Specialty Start Date End Date Leeroy Sheehan DO [address] [place] [address] PCP - General Family Medicine 05/23/20 07/11/20 documented as of this encounter
--- OUTSIDE RECORDS SUMMARY | 2024-03-06 15:21 | XMS_ITS | Encounter Summary ---
Author Organization [facility] Address [address] [place] [address]. [place], [place] [address] [place] [address] Care Team Providers Care Shredded Filler Hopper Feeder Name Role Phone Leeroy Sheehan DO Primary Care Provide r Reason for Referral * Imaging (Routine) - Closed Specialty Diagnoses / Procedures Referred By Contac t Referred To Contact RADIOLOGY Diagnoses Ulcer of left heel, with fat layer exposed (CMS/HCC HHS/HCC) Diabetic foot ulcer with osteomyelitis (CMS/HCC HHS/HCC) Procedures USV ART REST W SOFIA LOW EXT Fany May NP [address] [place] [address] Phone: tel: fax: Referral ID Status Reason Start Date Expiration Date Visits Re quested Visits Authorized [id number] Closed 09/27/2021 10/28/2022 1 1 * Imaging (Routine) - Closed Specialty Diagnoses / Procedures Referred By Contac t Referred To Contact RADIOLOGY Diagnoses Ulcer of left heel, with fat layer exposed (CMS/HCC HHS/HCC) Diabetic foot ulcer with osteomyelitis (CMS/HCC HHS/HCC) Lower extremity edema Procedures USV VENOUS REFLUX LOW RODRI Fany May NP [address] [place] [address] Phone: tel: fax: Referral ID Status Reason Start Date Expiration Date Visits Re quested Visits Authorized [id number] Closed 09/27/2021 10/28/2022 1 1 Encounter Details Date Type Department Care Team (Late st Contact Info) Description 09/27/2021 4:20 PM CDT - 09/27/2021 11:59 PM CDT Hospital Encounter [facility] [place] [address] Fany May NP [address] [place] [address] Discharge Disposition: Home or Self Care (Routine [...] Diabetic foot ulcer with osteomyelitis (CMS/HCC HHS/HCC) Once for 1 Occurrences starting 09/27/2021 until 09/27/2021 documented as of this encounter Procedures Procedure Name Priority Date/Time Associated Diagnosis Comments USV ART REST W SOFIA LOW EXT Routine 11/29/2021 3:08 PM CDT Ulcer of left heel, with fat layer exposed (CMS/HCC HHS/HCC) Diabetic foot ulcer with osteomyelitis (CMS/HCC HHS/HCC) USV VENOUS REFLUX LOW RODRI Routine 11/29/2021 3:08 PM CDT Ulcer of left heel, with fat layer exposed (CMS/HCC HHS/HCC) Diabetic foot ulcer with osteomyelitis (CMS/HCC HHS/HCC) Lower extremity edema HC BODY FLUID CULTURE Routine 09/27/2021 3:09 PM CDT Ulcer of right heel, with fat layer exposed (CMS/HCC HHS/HCC) Diabetic foot ulcer with osteomyelitis (CMS/HCC HHS/HCC) documented in this encounter Results * USV ART REST W SOFIA LOW EXT (11/29/2021 3:08 PM CDT) Anatomical Region Laterality Modality Extremity Vascular Ultraso und 11/29/2021 2:00 PM CDT Narrative 12/01/2021 5:16 PM CDT ?ARTERIAL DOPPLER - SOFIA ?BILATERAL LOWER EXTREMITY ? VASCULAR LAB Pat.Name: ??TAYE MARRERO ?Pat.ID: ?[id number] ? St.Date: ?? 11/29/2021 ? Refer.: ??[id number] LYNETTE EVANS Exam Time: 2:00:00 PM ? Study [...] FINDINGS: ++++++++++++++++++++++++++++++++++++ ++++++++++++++++++++++++++++++++++++ MEASUREMENTS: ++++++++++++++++++++++++++++++++++++ ?DOPPLER Left HAM DOCTOR ?? HAM DOCTOR PSV ?118 cm/s ? Left Dist Pop A ?? Dist Pop A PSV ?? 116 cm/s ? Right HAM DOCTOR ?? HAM DOCTOR PSV ? 99.4 cm/s ?PRESSURES Right Brachial [...] EXTREMITY VASCULAR LAB Pat.Name: TAYE MARRERO Pat.ID: [id number] .Date: 11/29/2021 Alana.: [id number] LYNETTE EVANS Exam Time: 2:00:00 PM Study [...] FINDINGS: ++++++++++++++++++++++++++++++++++++ ++++++++++++++++++++++++++++++++++++ MEASUREMENTS: ++++++++++++++++++++++++++++++++++++ DOPPLER Left HAM DOCTOR HAM DOCTOR PSV 118 cm/s Left Dist Pop A Dist Pop A PSV 116 cm/s Right HAM DOCTOR HAM DOCTOR PSV 99.4 cm/s PRESSURES Right Brachial Brach [...] PM Boyd Bartlett M.D. us Fany May REGIONAL DIRECTOR OF ADMISSIONS US VASC Final Res ult * USV VENOUS REFLUX LOW RODRI (11/29/2021 3:08 PM CDT) Anatomical Region Laterality Modality Extremity Vascular Ultraso und 11/29/2021 2:31 PM CDT Narrative 12/01/2021 6:06 PM CDT ?VENOUS DUPLEX IMAGING ?BILATERAL LOWER EXTREMITY ? VASCULAR LAB Pat.Name: ??TAYE MARRERO ?Pat.ID: ?[id number] ? St.Date: ?? 11/29/2021 ? Refer.: ??[id number] Exam Time: 2:31:00 PM ? Study Type:TORIN [...] EXTREMITY VASCULAR LAB Pat.Name: TAYE MARRERO Pat.ID: [id number] .Date: 11/29/2021 : [id number], Lynette evans Exam Time: 2:31:00 PM Study [...] 06:06 PM Boyd Bartlett M.D. Fany May REGIONAL DIRECTOR OF ADMISSIONS US [facility] Final Res ult * CULTURE, WOUND, W/GRAM STAIN (09/27/2021 3:09 PM CDT) SPEC DESCRIPTION HEEL, RIGHT 09/27/2021 4:[address] [facility] SPECIAL REQUESTS NO SPECIAL REQUEST 09/27/2021 4:[address] [facility] GRAM STAIN RESULT NO WHITE BLOOD CELLS SEEN 09/28/2021 10:[address] [facility] GRAM STAIN RESULT NO ORGANISMS SEEN 09/28/2021 10:[address] [facility] CULTURE RESULT NO GROWTH 3 DAYS 09/30/2021 11:51 [address] [facility] CULTURE RESULT NOTE: WOUND AND TISSUE CULTURES ARE ROUTINELY SCREENED FOR AEROBIC ORGANISMS ONLY. 09/30/2021 11:51 [address] [facility] RIGHT HEEL STRUCTURE / Unknown 09/27/2021 3:09 PM CDT 09/27/2021 4:23 PM CDT Fany May NP MICROBIOLOGY - GENERAL OR DERABLES Final Result [facility] [address] [place] [address], [place] [phone] documented in this encounter Visit Diagnoses Diagnosis Ulcer of left heel, with fat layer exposed ([facility]/HCC HHS/HCC) Diabetic foot ulcer with osteomyelitis ([facility]/HCC HHS/HCC) Type II or unspecified type diabetes mellitus with other specified manifestations, not stated as uncontrolled Lower extremity edema Edema Ulcer of right heel, with fat layer exposed ([facility] HHS/HCC) documented in this encounter Additional Health Concerns Infection Onset Date Last Indicated Resolved Time MRSA Comment:11/14/20 +MRSA Right heel 11/17/2020 11/17/2020 documented as of this encounter Care Teams Shredded Filler Hopper Feeder Relationship Specialty Start Date End Date Leeroy Sheehan DO [address] [place] [phone] PCP - General FAMILY PRACTICE 12/06/19 documented as of this encounter
--- OUTSIDE RECORDS SUMMARY | 2024-03-06 15:21 | XMS_ITS | Encounter Summary ---
Author Organization [facility] Address [address] [place] [address]. [place], [place] [address] [place] [address] Care Team Providers Care Chronic Disease Epidemiologist Name Role Phone Leeroy Sheehan DO Primary Care Provide r Reason for Visit * Consultation/Treatment (Routine) - Closed Specialty Diagnoses / Procedures Referred By Contsylvester t Referred To Contact WOUND CARE / [facility] Wound Care Diagnoses Venous insufficiency (chronic) (peripheral) Left LE Procedures WOUND NEW EVAL Leeroy Sheehan DO [address] [place] [address] Phone: tel: fax: Esteban Daigle MD Referral ID Status Reason Start Date Expiration Date Visits Re quested Visits Authorized [id number] Closed 05/15/2020 11/29/2020 12 12 Encounter Details Date Type Department Care Team (Late st Contact Info) Description 11/28/2020 2:45 PM CDT Office Visit [facility] [place] [address] Esteban Daigle MD Social History Tobacco Use Types Packs/Day Years [...] on file documented as of this encounter Results * (ABNORMAL) CULTURE, WOUND, W/GRAM STAIN (11/28/2020 2:56 PM CDT) SPEC DESCRIPTION HEEL, LEFT 11/28/2020 5:31 PM CDT [facility] SPECIAL REQUESTS NO SPECIAL REQUEST 11/28/2020 5:31 PM CDT [facility] GRAM STAIN RESULT NO WHITE BLOOD CELLS SEEN 11/29/2020 9:01 AM CDT [facility] GRAM STAIN RESULT FEW RBC'S SEEN 11/29/2020 9:01 AM CDT [facility] GRAM STAIN RESULT NO ORGANISMS SEEN 11/29/2020 9:01 AM CDT [facility] CULTURE RESULT LIGHT GROWTH OF MYROIDES SPECIES (A) 12/01/2020 9:30 AM CDT [facility] CULTURE RESULT SPARSE GROWTH OF ENTEROCOCCUS SPECIES (A) 12/01/2020 9:30 AM CDT [facility] CULTURE RESULT HEAVY GROWTH OF DIPHTHEROIDS SAVING ISOLATE FOR 5 DAYS. CONTACT MICROBIOLOGY DEPARTMENT IF FURTHER WORKUP IS INDICATED. (A) 12/01/2020 9:30 AM CDT [facility] CULTURE RESULT NOTE: WOUND AND TISSUE CULTURES ARE ROUTINELY SCREENED FOR AEROBIC ORGANISMS ONLY. 12/01/2020 9:30 AM CDT [facility] LEFT HEEL STRUCTURE / Unknown [...] MICROBIOLOGY - GENERAL ORDERABLE S Final Result [facility] [address] [place] [address], documented in this encounter Visit Diagnoses Diagnosis Skin ulcer of heel, limited to breakdown of skin, unspecified laterality (CMS/HCC HHS/[facility])- Primary documented in this encounter Additional Health Concerns Infection Onset Date Last Indicated Resolved Time MRSA Comment:11/14/20 +MRSA Right heel 11/17/2020 11/17/2020 documented as of this encounter Care Teams Chronic Disease Epidemiologist Relationship Specialty Start Date End Date Leeroy Sheehan DO [address] [place] [address] PCP - General FAMILY PRACTICE 12/06/19 documented as of this encounter
--- OUTSIDE RECORDS SUMMARY | 2024-03-06 15:21 | XMS_ITS | Encounter Summary ---
Author Organization [facility] - [facility] Address [address] [place] [address]. 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 ([facility]) Procedures WOUND NEW Fany Villeda NP [address] [place] [address] Phone: tel: fax: Fany May NP [address] [place] [address] Phone: tel: fax: Referral ID Status Reason Start Date Expiration Date Visits Re quested Visits Authorized [id number] Closed 09/23/2021 04/29/2022 8 8 Encounter Details Date Type Department Care Team (Late st Contact Info) Description 11/15/2021 2:58 PM CDT - 11/15/2021 11:59 PM CDT Hospital Encounter [facility] [place] [place] [id number] aFny May NP [address] [place], [place] [id number] Discharge Disposition: Home or Self Care (Routine [...] suspected to have Coronavirus/COVID-19? No / Unsure 11/15/2021 2:56 PM CDT documented as of this encounter [...] documented as of this encounter Care Teams Mat Gauger Relationship Specialty Start Date End Date Leeroy Sheehan DO [address] [place] [phone] PCP - General FAMILY PRACTICE 12/06/19 documented as of this encounter
--- OUTSIDE RECORDS SUMMARY | 2024-03-06 15:21 | XMS_ITS | Encounter Summary ---
Author Organization [facility] - [facility] Address [address] [place] [address]. [place], [place] [id number] [place] [id number] Care Team Providers Care Labor Supervisor Name Role Phone Leeroy Sheehan DO Primary Care Provide r Reason for Visit * Consultation/Treatment (Routine) - Closed Specialty Diagnoses / Procedures Referred By Contact Referred To Contact Nurse Practitioner Family / [facility] Wound Care Diagnoses Non-pressure chronic ulcer of other part of left lower leg limited to breakdown of skin ([facility]) Procedures WOUND FOLLOW UP VISIT Fany May NP [address] [place] [address] Phone: tel: fax: Fany May NP [address] [place] [address] Phone: tel: fax: Referral ID Status Reason Start Date Expiration Date Visits Re quested Visits Authorized [id number] Closed 12/03/2020 06/29/2021 16 16 Encounter Details Date Type Department Care Team (Late st Contact Info) Description 12/19/2020 3:15 PM CDT Office Visit [facility] [place], [place] [phone] Fany May NP [address] [place], [place] [id number] Mary Anne Schultz, [place] [address] [address] Social History Tobacco Use Types Packs/Day Years [...] documented as of this encounter Care Teams Labor Supervisor Relationship Specialty Start Date End Date Leeroy Sheehan DO [address] [place] [id number] PCP - General FAMILY PRACTICE 12/06/19 documented as of this encounter
--- OUTSIDE RECORDS SUMMARY | 2024-03-06 15:21 | XMS_ITS | Encounter Summary ---
Author Organization [facility] Address [address] [place] [address] Care Team Providers Care Battery Stacker Name Role Phone Leeroy Sheehan DO Primary Care Provide r Reason for Visit * Auth/Cert Specialty Diagnoses / Procedures Referred By Juan cosme Referred To Contact Diagnoses Necrotic left heel; cellulitis/osteromyelitis Referral ID Status Reason Start Date Expiration Date Visits Re quested Visits Authorized [id number] 1 1 Encounter Details Date Type Department Care Team (Late st Contact Info) Description 05/25/2020 12:58 PM CDT Anesthesia Event [facility] - [facility] [address] [place] [address] Robin Wright MD [address] [facility] [place] [address] Franklin Jacob, JOB TRAINING SUPERVISOR-ELECTROTYPE MOLDER [id number] [facility] [address] [place] [address] Anesthesia Record Procedure Summary Procedure Name Responsible Anesthesiologist Anesthesia Start Time Anesthesia Stop Time LEFT HEEL ULCER DEBRIDMENT WITH PARTIAL CALCANECTOMY (Left: Foot) Robin Wright MD 05/25/20 1258 05/25/20 1410 Events Date Time Event Comment 05/25/2020 1222 1258 An Start 1258 An Start Data 1309 Timeout Anesthesia part icipated in timeout at the time documented in the record by nursing. 1311 PT Reassessment 1359 Electnc Sig 1359 PACU Orders Reviewed 1359 an stop data 1359 Handoff Checklist follo wed: 1. Identification of patient 2. Identification of responsible nurse 3. Discussion of pertinent medical history 4. Discussion of surgical/procedure course 5. Intraoperative anesthetic management and concerns 6. Expectations/plans for the early post-procedure period 7. Opportunity for questions and acknowledgement of report 1359 ANPTO2 1410 An Stop Meds Name Total midazolam 2 mg/2mL injection 2 mg fentaNYL 100 mcg/2mL injection 100 mcg lidocaine PF 1% injection (10 mg/mL) 40 mg ondansetron 2 mg/mL injection 4 mg dexamethasone 4 mg/mL injection 4 mg lactated ringers infusion 800 mL propofol 10mg/mL injection (ENDO USE) 20 mL * Agents Name Insp. N2O Exp. N2O O2 * Blood No blood administrations on file. Lines, Drains, and Airways Type Details Placement Removal Peripheral IV Date: 05/22/20; Time : 1252; Orientation: Anterior, Right; Placed By: per ED chart provided 05/22/20 1252 by Dayo Browne RN 05/29/20 1502 by Marycruz Martinez RN Procedural Site (Incision) 05/25/20; 1320; Left; Foot; 05/29/20; 2346 05/25/20 1320 by Sabiha Lawler RN 05/29/20 2346 by Generic, Auto Release Other Wound 05/25/20; 1400; Left ; Scrotum; 05/29/20; 2346 05/25/20 1400 by Tiffanie Srivastava RN 05/29/20 2346 by Generic, Auto Release documented in this encounter Social History Tobacco [...] No 05/23/2020 documented as of this encounter Progress Notes * Franklin Jacob APRN-CRNA - 05/25/2020 2:10 PM CDT ANESTHESIA POSTOP EVALUATION NOTE Procedure: LEFT HEEL ULCER DEBRIDMENT WITH PARTIAL CALCANECTOMY (Left Foot) Taye Marrero is a 64 year old male Patient Vitals for the past 6 hrs: BP Temp Pulse Resp SpO2 Pain Rating Score #1 Pain Scale/Observation 05/25/20 1117 -- -- -- -- -- 0 N 05/25/20 1143 (!) 155/103 98.5 ??F (36.9 ??C) 87 19 92 % -- -- 05/25/20 1159 -- -- 90 -- 96 % -- -- 05/25/20 1402 129/75 97 ??F (36.1 ??C) (!) 110 24 100 % 0 N 05/25/20 1406 129/75 97 ??F (36.1 ??C) (!) 112 16 97 % -- -- Anesthesia Type: MAC * No Diagnosis Codes entered * Mental Status: awake Neuro Status: No numbness, tingling or visual disturbances Respiratory Function: natural Cardiac Function: stable Postop Pain: acceptable to the patient Postop Hydration: adequate Postop Nausea: none Assessment: no apparent anesthetic complications, patient tolerated procedure well and no evidence of recall Patient Disposition: Release from Anesthesia Care COMPLICATIONS: No complications documented. * Franklin Jacob APRN-CRNA - 05/25/2020 12:21 PM CDT ANESTHESIA PREOPERATIVE EVALUATION NOTE Procedure: LEFT HEEL ULCER DEBRIDMENT WITH PARTIAL CALCANECTOMY (Foot) NPO status: Since Midnight;*Except Oral meds with H2O (05/25/2020 11:59 AM) Vitals: Patient Vitals for the past 6 hrs: BP Temp Pulse Resp SpO2 Pain Rating Score #1 05/25/20 1159 -- -- 90 -- 96 % -- 05/25/20 1143 (!) 155/103 98.5 ??F (36.9 ??C) 87 19 92 % -- 05/25/20 1117 -- -- -- -- -- 0 05/25/20 0700 165/94 97.9 ??F (36.6 ??C) 91 18 90 % -- ANESTHESIA PRE-EVALUATION NOTE History of Present Illness: Left heel ulcer Physical Exam: Orientation X3 Airway/Mallampati Score: II Mouth Opening Distance: 3 fingerwidths Neck ROM: full TM Distance: > 3 FB Teeth: normal Heart: normal - S1 S2 Lungs: clear to ausculation bilaterally Abdomen Exam: soft Review of Systems: History of anesthetic complications: No Malignant Hyperthermia: No Poor Exercise Tolerance: Yes AICD/Pacemaker: No Diagnostic Tests: Lab(s) reviewed: Yes. ANESTHESIA PLAN ASA Score: 3 NPO Status: No solids since midnight Anesthesia Plan: MAC Planned Induction: intravenous Planned Postop Destination: PACU Anesthetic plan was discussed with: patient Anesthetic Plan discussion was: Consented The patient's procedural Anesthetic Plan was discussed with the ELECTROTYPE MOLDER. Overall additional findings/comments: Anesthesia pre op re evaluation by Franklin Jacob APRN-ELECTROTYPE MOLDER 05/25/2020 12:23 PM. BMI, Height, Weight Tobacco History Estimated body mass index is 47.04 kg/m?? as calculated from the following: Height as of this encounter: 1.803 m (5' 11 ). Weight as of this encounter: 153 kg (337 lb 4.9 oz). Social History Tobacco Use Smoking Status Former Smoker Smokeless Tobacco Never Used Alcohol History Drug History Social History Substance and Sexual Activity Alcohol Use Not Currently ??? Frequency: Never Social History Substance and Sexual Activity Drug Use Never Outpatient Medications: Inpatient Medications: Outpatient Medications Marked as Taking for the 05/23/20 encounter (Hospital Encounter) Medication Sig Last Dose ??? aspirin EC Take 81 mg by mouth once daily 05/22/2020 at 0900 ??? dilTIAZem ER 24hr Take 240 mg by mouth once daily 05/22/2020 at 0900 ??? DULoxetine HCl Take 40 mg by mouth once daily 05/22/2020 at 0900 ??? furosemide Take 40 mg by mouth once daily 05/22/2020 at 0900 ??? gabapentin Take 300 mg by mouth 4 times daily 05/22/2020 at 0800 ??? glimepiride Take 4 mg by mouth daily with breakfast 05/22/2020 at 0900 ??? HYDROcodone-acetaminophen Take 1 tablet by mouth every 6 hours as needed for Pain 05/22/2020 at 0900 ??? levothyroxine Take 100 mcg by mouth daily before breakfast 05/22/2020 at 0900 ??? lisinopril Take 40 mg by mouth once daily 05/22/2020 at 0900 ??? loratadine Take 10 mg by mouth once daily 05/21/2020 at 2200 ??? metFORMIN Take 1,000 mg by mouth 2 times daily with morning and evening meal 05/22/2020 at 0900 ??? multivitamin daily Take 1 tablet by mouth daily with food 05/22/2020 at 0900 ??? omeprazole EC Take 20 mg by mouth daily before breakfast 05/22/2020 at 0900 ??? pravastatin Take 40 mg by mouth at bedtime 05/21/2020 at 2100 ??? traZODone Take 150 mg by mouth at bedtime 05/21/2020 at 2100 Current Facility-Administered Medications Medication Dose Last Admin ??? 0.9% NaCl 3 mL 3 mL at 05/25/20 0635 And ??? 0.9% NaCl 1-10 mL ??? albuterol HFA 2 puff ??? aspirin 81 mg 81 mg at 05/24/20 0949 ??? cefTRIAXone 2 g Stopped at 05/25/20 1143 ??? collagenase Given at 05/24/20 0952 ??? dextrose 25-50 mL ??? dilTIAZem coated beads 24hr 240 mg 240 mg at 05/25/20 1101 ??? DULoxetine 40 mg 40 mg at 05/24/20 0951 ??? enoxaparin 40 mg 40 mg at 05/24/202104 ??? famotidine 20 mg 20 mg at 05/24/202105 ??? furosemide 40 mg 40 mg at 05/24/201758 ??? gabapentin 300 mg 300 mg at 05/24/202105 ??? glucagon 1 mg ??? glucose (Diabetic Use) ??? glucose (Diabetic Use) gel ??? HYDROcodone-acetaminophen 1 tablet 1 tablet at 05/25/20 0632 ??? insulin aspart 0-12 Units 6 Units at 05/24/20 1758 ??? insulin aspart 10 Units 10 Units at 05/24/20 1758 ??? insulin glargine 20 Units 20 Units at 05/25/20 1109 ??? levothyroxine 100 mcg 100 mcg at 05/25/20 0632 ??? lisinopril 40 mg 40 mg at 05/25/20 1100 ??? loratadine 10 mg 10 mg at 05/24/20 0950 ??? morphine 2 mg 2 mg at 05/24/20 0211 ??? mupirocin Given at 05/24/20 0952 ??? ondansetron (disintegrating) 4 mg Or ??? ondansetron 4 mg ??? pravastatin 40 mg 40 mg at 05/24/202105 ??? traZODone 150 mg 150 mg at 05/24/202105 Allergies: No Known Allergies Relevant Problems No relevant active problems Problem List: Patient Active Problem List Diagnosis Date Noted ??? Open wound of left heel 05/22/2020 Priority: Not Prioritized Medical History: Past Medical History: Diagnosis Date ??? Atherosclerosis of coronary artery ??? Essential hypertension ??? History of diabetes mellitus ??? Obesity Surgical History: No past surgical history on file. Lab Results: Recent Labs Base Name 05/24/20 1943 [id number] 193* SPECIMENTYPE Arterial/Capillary Recent Labs Component Name 05/23/20 0506 WBC 9.8 RBC 5.00 HCT 44.1 HGB 13.8 PLTCOUNT 273 MCV 88.2 MCH 27.6 MCHC 31.3 MPV 9.5 Recent Labs Component Name 05/25/20 0348 SODIUM 135* POTASSIUM 3.7 CALCIUM 10.0 CHLORIDE 100 CO2 26 GLUCOSE 174* BUN 12 CREATININE 0.85 Recent Labs Component Name 05/25/20 0348 MAGNESIUM 1.6 Recent Labs Component Name 05/25/20 0348 PHOS 3.0 Recent Labs Component Name 05/23/20 0506 PT 14.8 INR 1.2* No results found for requested labs within last 120 days. Recent Labs Result Component Current Result Albumin 2.9 (L) (05/25/2020) Alkaline Phosphatase 82 (05/23/2020) ALT 11 (05/23/2020) Anion Gap 9 (05/25/2020) AST 11 (05/23/2020) Bilirubin Total 0.5 (05/23/2020) eGFR by MDRD >60 (05/25/2020) documented in this encounter Miscellaneous Notes * Anesthesia Transfer of Care - Franklin Jacob APRN-ELECTROTYPE MOLDER - 05/25/2020 2:11 PM CDT ANESTHESIA TRANSFER OF CARE NOTE Today's Date: 05/25/2020 Date of : 1955 Patient: Taye Marrero Procedure(s): LEFT HEEL ULCER DEBRIDMENT WITH PARTIAL CALCANECTOMY Surgeon(s): Primary: Maxi Neville DPM Preop Diagnosis: * No Diagnosis Codes entered * Pre-op Meds (From admission, onward) Start Stop Status Route Frequency Ordered 05/23/20 0259 0.9% NaCl injection 1-10 mL -- Dispensed IK PRN 05/23/20 0304 05/23/20 0600 0.9% NaCl injection 3 mL -- Dispensed IK EVERY 8 HOURS 05/23/20 0304 05/23/20 0307 albuterol HFA (Proventil;Ventolin;Proair) 108 (90 Base) MCG/ACT inhaler 2 puff Note to Pharmacy: OP sig: Inhale 2 puffs by mouth every 6 hours as needed for Shortness of Breath -- Verified IN EVERY 6 HOURS PRN 05/23/20 0308 05/23/20 0900 aspirin chew tablet 81 mg Note to Pharmacy: OP sig: Take 81 mg by mouth once daily -- Dispensed PO DAILY 05/23/20 0308 05/25/20 1000 cefTRIAXone (Rocephin) 2,000 mg in 0.9% NaCl IV 50 mL IVPB -- Dispensed IV EVERY 24 HOURS 05/25/20 0952 05/23/20 1345 collagenase (Santyl) ointment -- Dispensed TP DAILY 05/23/20 1305 05/23/20 0303 dextrose IV 12.5-25 g -- Verified IV PRN 05/23/20 0304 05/23/20 0900 dilTIAZem coated beads 24hr (Cardizem Cd) capsule 240 mg -- Dispensed PO DAILY 05/23/20 0308 05/23/20 0900 DULoxetine (Cymbalta) capsule 40 mg Note to Pharmacy: OP sig: Take 40 mg by mouth once daily -- Dispensed PO DAILY 05/23/20 0308 05/23/20 0900 enoxaparin (Lovenox) injection 40 mg -- Dispensed SC 2 TIMES DAILY 05/23/20 0304 05/23/20 0900 famotidine (Pepcid) tablet 20 mg -- Dispensed PO 2 TIMES DAILY 05/23/20 0304 05/25/20 1357 fentaNYL (PF) (Sublimaze) injection 50 mcg -- Verified IV EVERY 10 MIN PRN 05/25/20 1357 05/24/20 1700 furosemide (Lasix) injection 40 mg -- Dispensed IV 2 TIMES DAILY 05/24/20 1501 05/23/20 0415 gabapentin (Neurontin) capsule 300 mg Note to Pharmacy: OP sig: Take 300 mg by mouth 3 times daily -- Dispensed PO 3 TIMES DAILY 05/23/20 0404 05/23/20 0303 glucagon (Glucagen) injection 1 mg -- Verified IM PRN 05/23/20 0304 05/23/20 0303 glucose (Diabetic Use) (Dex4 Glucose) oral liquid -- Verified PO PRN 05/23/20 0304 05/23/20 0303 glucose (Diabetic Use) oral gel -- Verified PO PRN 05/23/20 0304 05/23/20 0301 HYDROcodone-acetaminophen (Ather[place]) 5-325 MG tablet 1 tablet -- Dispensed PO EVERY 4 HOURS PRN 05/23/20 0304 05/23/20 0800 insulin aspart (NovoLOG) pen 0-12 Units -- Verified SC 3 TIMES DAILY WITH MEALS 05/23/20 0304 05/24/20 0800 insulin aspart (NovoLOG) pen 10 Units -- Verified SC 3 TIMES DAILY WITH MEALS 05/23/20202705/24/20 09 insulin glargine (Lantus) pen 20 Units -- Verified SC DAILY 05/23/20202705/23/20 07 levothyroxine (Synthroid) tablet 100 mcg Note to Pharmacy: OP sig: Take 100 mcg by mouth daily before breakfast -- Dispensed PO DAILY BEFORE BREAKFAST 05/23/2030705/23/20 09 lisinopril (Prinivil; Zestril) tablet 40 mg Note to Pharmacy: OP sig: Take 40 mg by mouth once daily -- Dispensed PO DAILY 05/23/2030705/23/20 09 loratadine (Claritin) tablet 10 mg Note to Pharmacy: OP sig: Take 10 mg by mouth once daily -- Dispensed PO DAILY 05/23/20 0308 05/24/20 1515 magnesium sulfate 2 g in 50 mL bolus 05/24 1756 Completed IV ONCE 05/24/20 1458 05/23/20 0301 morphine injection 2 mg -- Dispensed IV EVERY 3 HOURS PRN 05/23/20 0304 05/23/20 1345 mupirocin (Bactroban) 2 % ointment -- Dispensed TP DAILY 05/23/20 1305 05/25/20 1357 naloxone (Narcan) injection 0.04 mg -- Verified IV POST-OP MULTIPLE 05/25/20 1357 05/23/20 0302 ondansetron (disintegrating) (Zofran ODT) tablet 4 mg -- Verified PO EVERY 6 HOURS PRN 05/23/20 0304 05/23/20 0302 ondansetron (Zofran) injection 4 mg -- Verified IV EVERY 6 HOURS PRN 05/23/20 0304 05/23/20 2100 pravastatin (Pravachol) tablet 40 mg Note to Pharmacy: OP sig: Take 40 mg by mouth at bedtime -- Dispensed PO AT BEDTIME 05/23/20 0308 05/23/20 2100 traZODone (Desyrel) tablet 150 mg Note to Pharmacy: OP sig: Take 150 mg by mouth at bedtime -- Dispensed PO AT BEDTIME 05/23/20 030 * No Diagnosis Codes entered * . No Known Allergies Vitals: Patient Vitals for the past 3 hrs: BP Temp Pulse Resp SpO2 Pain Rating Score #1 05/25/20 1406 129/75 97 ??F (36.1 ??C) (!) 112 16 97 % -- 05/25/20 1402 129/75 97 ??F (36.1 ??C) (!) 110 24 100 % 0 05/25/20 1159 -- -- 90 -- 96 % -- 05/25/20 1143 (!) 155/103 98.5 ??F (36.9 ??C) 87 19 92 % -- 05/25/20 1117 -- -- -- -- -- 0 Lines, Drains, and Airways Type Details Placement Removal Peripheral IV Date: 05/22/20; Time: 1252; Orientation: Anterior, Right; Location: Forearm; Placed By: per ED chart provided 05/22/20 1252 by Dayo Browne RN Intraprocedure I/O Totals Intake propofol 10mg/mL injection (ENDO USE) 20.00 mL lactated ringers infusion 800.00 mL Total Intake 820 mL Patient Transfer Location: PACU Transport Airway: spontaneous respirations and supplemental O2 Complications: None Handoff Given? Yes Checklist or Protocol - The pryor handoff elements that must be included in the transfer of care checklist include: 1. Identification of patient. 2. Identification of responsible practitioner (PACU nurse or advanced practitioner). 3. Discussion of pertinent medical history. 4. Discussion of the surgical/procedure course (procedure, reason for surgery, procedure performed). 5. Intraoperative anesthetic management and issue/concerns. 6. Expectations/Plans for the early post-procedure period. 7. Opportunity for questions and acknowledgement of understanding of report from the receiving PACUteam. JONAH Méndez * Anesthesia Transfer of Care - Franklin Jacob APRN-CRNA - 05/25/2020 2:10 PM CDT ANESTHESIA TRANSFER OF CARE NOTE Today's Date: 05/25/2020 Date of : 1955 Patient: Taye Marrero Procedure(s): LEFT HEEL ULCER DEBRIDMENT WITH PARTIAL CALCANECTOMY Surgeon(s): Primary: Maxi Neville DPM Preop Diagnosis: * No Diagnosis Codes entered * Pre-op Meds (From admission, onward) Start Stop Status Route Frequency Ordered 05/23/20 0259 0.9% NaCl injection 1-10 mL -- Dispensed IK PRN 05/23/20 0304 05/23/20 0600 0.9% NaCl injection 3 mL -- Dispensed IK EVERY 8 HOURS 05/23/20 0304 05/23/20 0307 albuterol HFA (Proventil;Ventolin;Proair) 108 (90 Base) MCG/ACT inhaler 2 puff Note to Pharmacy: OP sig: Inhale 2 puffs by mouth every 6 hours as needed for Shortness of Breath -- Verified IN EVERY 6 HOURS PRN 05/23/20 0308 05/23/20 0900 aspirin chew tablet 81 mg Note to Pharmacy: OP sig: Take 81 mg by mouth once daily -- Dispensed PO DAILY 05/23/20 0308 05/25/20 1000 cefTRIAXone (Rocephin) 2,000 mg in 0.9% NaCl IV 50 mL IVPB -- Dispensed IV EVERY 24 HOURS 05/25/20 0952 05/23/20 1345 collagenase (Santyl) ointment -- Dispensed TP DAILY 05/23/20 1305 05/25/20 1310 dexamethasone (Decadron) injection -- Sent PRN 05/25/20 1345 05/23/20 0303 dextrose IV 12.5-25 g -- Verified IV PRN 05/23/20 0304 05/23/20 0900 dilTIAZem coated beads 24hr (Cardizem Cd) capsule 240 mg -- Dispensed PO DAILY 05/23/20 0308 05/23/20 0900 DULoxetine (Cymbalta) capsule 40 mg Note to Pharmacy: OP sig: Take 40 mg by mouth once daily -- Dispensed PO DAILY 05/23/20 0308 05/23/20 0900 enoxaparin (Lovenox) injection 40 mg -- Dispensed SC 2 TIMES DAILY 05/23/20 0304 05/23/20 0900 famotidine (Pepcid) tablet 20 mg -- Dispensed PO 2 TIMES DAILY 05/23/20 0304 05/25/20 1305 fentaNYL (PF) (Sublimaze) injection -- Sent PRN 05/25/20 1312 05/25/20 1357 fentaNYL (PF) (Sublimaze) injection 50 mcg -- Verified IV EVERY 10 MIN PRN 05/25/20 1357 05/24/20 1700 furosemide (Lasix) injection 40 mg -- Dispensed IV 2 TIMES DAILY 05/24/20 1501 05/23/20 0415 gabapentin (Neurontin) capsule 300 mg Note to Pharmacy: OP sig: Take 300 mg by mouth 3 times daily -- Dispensed PO 3 TIMES DAILY 05/23/20 0404 05/23/20 0303 glucagon (Glucagen) injection 1 mg -- Verified IM PRN 05/23/20 0304 05/23/20 0303 glucose (Diabetic Use) (Dex4 Glucose) oral liquid -- Verified PO PRN 05/23/20 0304 05/23/20 0303 glucose (Diabetic Use) oral gel -- Verified PO PRN 05/23/20 0304 05/23/20 0301 HYDROcodone-acetaminophen ([place]) 5-325 MG tablet 1 tablet -- Dispensed PO EVERY 4 HOURS PRN 05/23/20 0304 05/23/20 0800 insulin aspart (NovoLOG) pen 0-12 Units -- Verified SC 3 TIMES DAILY WITH MEALS 05/23/20 03005/24/20 0800 insulin aspart (NovoLOG) pen 10 Units -- Verified SC 3 TIMES DAILY WITH MEALS 05/23/20202705/24/20 0900 insulin glargine (Lantus) pen 20 Units -- Verified SC DAILY 05/23/20202705/25/20 1258 lactated ringers infusion -- Sent CONTINUOUS PRN 05/25/20 1312 05/23/20 0700 levothyroxine (Synthroid) tablet 100 mcg Note to Pharmacy: OP sig: Take 100 mcg by mouth daily before breakfast -- Dispensed PO DAILY BEFORE BREAKFAST 05/23/20 0308 05/25/20 1309 lidocaine PF (Xylocaine Mpf) 1 % injection -- Sent PRN 05/25/20 1312 05/23/20 0900 lisinopril (Prinivil; Zestril) tablet 40 mg Note to Pharmacy: OP sig: Take 40 mg by mouth once daily -- Dispensed PO DAILY 05/23/20 0308 05/23/20 0900 loratadine (Claritin) tablet 10 mg Note to Pharmacy: OP sig: Take 10 mg by mouth once daily -- Dispensed PO DAILY 05/23/20 0308 05/24/20 1515 magnesium sulfate 2 g in 50 mL bolus 05/24 1756 Completed IV ONCE 05/24/20 1458 05/25/20 1258 midazolam (Versed) injection -- Sent PRN 05/25/20 1312 05/23/20 0301 morphine injection 2 mg -- Dispensed IV EVERY 3 HOURS PRN 05/23/20 0304 05/23/20 1345 mupirocin (Bactroban) 2 % ointment -- Dispensed TP DAILY 05/23/20 1305 05/25/20 1357 naloxone (Narcan) injection 0.04 mg -- Verified IV POST-OP MULTIPLE 05/25/20 1357 05/23/20 0302 ondansetron (disintegrating) (Zofran ODT) tablet 4 mg -- Verified PO EVERY 6 HOURS PRN 05/23/20 0304 05/25/20 1258 ondansetron (Zofran) injection -- Sent PRN 05/25/20 1312 05/23/20 0302 ondansetron (Zofran) injection 4 mg -- Verified IV EVERY 6 HOURS PRN 05/23/20 0304 05/23/20 2100 pravastatin (Pravachol) tablet 40 mg Note to Pharmacy: OP sig: Take 40 mg by mouth at bedtime -- Dispensed PO AT BEDTIME 05/23/20 0308 05/25/20 1309 propofol (Diprivan) injection -- Sent CONTINUOUS PRN 05/25/20 1313 05/23/20 2100 traZODone (Desyrel) tablet 150 mg Note to Pharmacy: OP sig: Take 150 mg by mouth at bedtime -- Dispensed PO AT BEDTIME 05/23/20 0308 * No Diagnosis Codes entered * . No Known Allergies Vitals: Patient Vitals for the past 3 hrs: BP Temp Pulse Resp SpO2 Pain Rating Score #1 05/25/20 1406 129/75 97 ??F (36.1 ??C) (!) 112 16 97 % -- 05/25/20 1402 129/75 97 ??F (36.1 ??C) (!) 110 24 100 % 0 05/25/20 1159 -- -- 90 -- 96 % -- 05/25/20 1143 (!) 155/103 98.5 ??F (36.9 ??C) 87 19 92 % -- 05/25/20 1117 -- -- -- -- -- 0 Lines, Drains, and Airways Type Details Placement Removal Peripheral IV Date: 05/22/20; Time: 1252; Orientation: Anterior, Right; Location: Forearm; Placed By: per ED chart provided 05/22/20 1252 by Dayo Browne RN Intraprocedure I/O Totals Intake propofol 10mg/mL injection (ENDO USE) 20.00 mL lactated ringers infusion 800.00 mL Total Intake 820 mL Transport Airway: spontaneous respirations and supplemental O2 Complications: None Handoff Given? Yes JONAH Méndez documented in this encounter Plan of Treatment Not on file documented as of this encounter Visit Diagnoses Not on filedocumented in this encounter Administered Medications Inactive Administered Medications - up to 3 most recent administrations Medication Order MAR Action Action Date Dose Rate Site dexamethasone (Decadron) injection PRN, Starting on Thu05/25/20 at 1310, Until Thu05/25/20 at 1410, Anesthesia Intra-op $ Given 05/25/2020 1:10 PM CDT 4 mg fentaNYL (PF) (Sublimaze) injection PRN, Starting on Thu05/25/20 at 1305, Until Thu05/25/20 at 1410, Anesthesia Intra-op $ Given 05/25/2020 1:09 PM CDT 50 mcg $ Given 05/25/2020 1:05 PM CDT 50 mcg lactated ringers infusion CONTINUOUS PRN, Starting on Thu05/25/20 at 1258, Until Thu05/25/20 at 1410, Anesthesia Intra-op $ New Bag/Syringe 05/25/2020 12:58 PM CDT lidocaine PF (Xylocaine Mpf) 1 % injection PRN, Starting on Thu05/25/20 at 1309, Until Thu05/25/20 at 1410, Anesthesia Intra-op $ Given 05/25/2020 1:09 PM CDT 40 mg midazolam (Versed) injection PRN, Starting on Thu05/25/20 at 1258, Until Thu05/25/20 at 1410, Anesthesia Intra-op $ Given 05/25/2020 12:58 PM CDT 2 mg ondansetron (Zofran) injection PRN, Starting on Thu05/25/20 at 1258, Until Thu05/25/20 at 1410, Anesthesia Intra-op $ Given 05/25/2020 12:58 PM CDT 4 mg propofol (Diprivan) injection CONTINUOUS PRN, Starting on Thu05/25/20 at 1309, Until Thu05/25/20 at 1410, Anesthesia Intra-op $ New Bag/Syringe 05/25/2020 1:09 PM CDT documented in this encounter Care Teams Battery Stacker Relationship Specialty Start Date End Date Leeroy Sheehan DO [address] [facility] [address] [place] [phone] PCP - General Family Medicine 05/23/20 07/11/20 documented as of this encounter
--- OUTSIDE RECORDS SUMMARY | 2024-03-06 15:21 | XMS_ITS | Encounter Summary ---
Author Organization [facility] Address [address] [place] [address]. [place], [place] [address] [place] [id number] Care Team Providers Care Adobe Block Maker Name Role Phone Leeroy Sheehan DO Primary Care Provide r Encounter Details Date Type Department Care Team (Latest Contact Info) Description 11/15/2021 Travel Social History Tobacco Use Types Packs/Day [...] documented as of this encounter Care Teams Adobe Block Maker Relationship Specialty Start Date End Date Leeroy Sheehan DO [address] [place] [phone] PCP - General FAMILY PRACTICE 12/06/19 documented as of this encounter
--- OUTSIDE RECORDS SUMMARY | 2024-03-06 15:21 | XMS_ITS | Encounter Summary ---
Author Organization [facility] Address [address] [place] [address]. [place], [place] [id number] [place] [id number] Care Team Providers Care Cabinet Abrasive Sandblaster Name Role Phone Leeroy Sheehan DO Primary Care Provide r Encounter Details Date Type Department Care Team (Latest Contact Info) Description 12/30/2021 Travel Social History Tobacco Use Types Packs/Day [...] documented as of this encounter Care Teams Cabinet Abrasive Sandblaster Relationship Specialty Start Date End Date Leeroy Sheehan DO [address] [place] [phone] PCP - General FAMILY PRACTICE 12/06/19 documented as of this encounter
--- OUTSIDE RECORDS SUMMARY | 2024-03-06 15:22 | XMS_ITS | Encounter Summary ---
Author Organization [facility] Address [address] [place] [address]. [place], [place] [address] [place] [address] Care Team Providers Care Station Chief Name Role Phone Leeroy Sheehan DO Primary Care Provide r Encounter Details Date Type Department Care Team (Latest Contact Info) Description 12/14/2019 5:20 PM CDT - 12/14/2019 11:59 PM CDT Hospital Encounter [facility] [place] [address] Esteban Daigle MD Discharge Disposition: Home or Self Care (Routine Discharge) Social History Tobacco Use Types Packs/Day Years Used Date Smoking Tobacco: Never Assessed Sex and Gender Information Value Date Recorded Sex Assigned at Not on file Legal Sex Male 1:10 PM CDT Gender Identity Not on file Sexual Orientation Not on file COVID-19 Exposure Response Date Recorded In the last month, have you been in contact with someone who was confirmed or suspected to have Coronavirus / COVID-19? No / Unsure 12/14/2019 12:32 PM CDT documented as of this encounter Medications at Time of Discharge traZODone 150 MG tablet Take 150 mg by mouth daily. 06/24/2019 glipiZIDE XL 10 MG 24 hr tablet Take 10 mg by mouth daily. 10/31/2019 05/22/2020 documented as of this encounter Plan of Treatment Not on file documented as of this encounter Procedures Procedure Name Priority Date/Time Associated Diagnosis Comments HC BODY FLUID CULTURE Routine 12/14/2019 2:11 PM CDT Chronic venous hypertension (idiopathic) with ulcer and inflammation of bilateral lower extremity (CMS/HCC HHS/HCC) documented in this encounter Results * (ABNORMAL) CULTURE, WOUND, W/GRAM STAIN (12/14/2019 2:11 PM CDT) SPEC DESCRIPTION HEEL, LEFT 12/14/2019 5:21 PM CDT [facility] SPECIAL REQUESTS NO SPECIAL REQUEST 12/14/2019 5:21 PM CDT [facility] GRAM STAIN RESULT NO WHITE BLOOD CELLS SEEN 12/15/2019 12:43 PM CDT [facility] GRAM STAIN RESULT NO ORGANISMS SEEN 12/15/2019 12:43 PM CDT [facility] CULTURE RESULT SPARSE GROWTH OF KLEBSIELLA PNEUMONIAE (A) 12/17/2019 9:59 AM CDT [facility] CULTURE RESULT SPARSE GROWTH OF MORGANELLA MORGANII SSP. SIBONII (A) 12/17/2019 9:59 AM CDT [facility] CULTURE RESULT MODERATE GROWTH OF STREPTOCOCCUS NON GROUPABLE SUSCEPTIBILTY NOT ROUTINELY PERFORMED. SAVING ISOLATE FOR 5 DAYS. CONTACT MICROBIOLOGY DEPARTMENT IF FURTHER WORKUP IS INDICATED. (A) 12/17/2019 9:59 AM CDT [facility] CULTURE RESULT NOTE: WOUND AND TISSUE CULTURES ARE ROUTINELY SCREENED FOR AEROBIC ORGANISMS ONLY. 12/17/2019 9:59 AM CDT [facility] LEFT HEEL STRUCTURE / Unknown 12/14/2019 2:11 PM CDT 12/14/2019 5:26 PM CDT Narrative Organism Antibiotic Method Susceptibility Klebsiella pneumoniae AMPICILLIN ADAM (VITEK) 16: Resistant Klebsiella pneumoniae AMPICILLIN/SULBACTAM ADAM (VITEK) 4: Sensitive Klebsiella pneumoniae CEFTRIAXONE ADMA (VITEK) <=1: Sensitive Klebsiella pneumoniae CEFTAZIDIME ADAM (VITEK) <=1: Sensitive Klebsiella pneumoniae CEFAZOLIN ADAM (VITEK) <=4: Sensitive Klebsiella pneumoniae ESBL ADAM (VITEK) NEG: Sensitive Klebsiella pneumoniae GENTAMICIN ADAM (VITEK) <=1: Sensitive Klebsiella pneumoniae LEVOFLOXACIN ADAM (VITEK) <=0.12: Sensitive Klebsiella pneumoniae PIPRACIL/TAZO ADAM (VITEK) <=4: Sensitive Klebsiella pneumoniae TRIMETH-SULFAMETH. ADAM (VITEK) <=20: Sensitive Morganella morganii ssp. sibonii AMPICILLIN ADAM (VIT EK) >=32: Resistant Morganella morganii ssp. sibonii AMPICILLIN/SULBACTAM ADAM (VITEK) >=32: Resistant Morganella morganii ssp. sibonii CEFTRIAXONE ADAM (VIT EK) <=1: Sensitive Morganella morganii ssp. sibonii CEFTAZIDIME ADAM (VIT EK) <=1: Sensitive Morganella morganii ssp. sibonii CEFAZOLIN ADAM (VIT EK) >=64: Resistant Morganella morganii ssp. sibonii GENTAMICIN ADAM (VIT EK) <=1: Sensitive Morganella morganii ssp. sibonii LEVOFLOXACIN ADAM (VIT EK) 0.5: Sensitive Morganella morganii ssp. sibonii PIPRACIL/TAZO ADAM ( KARIN) <=4: Sensitive Morganella morganii ssp. sibonii TRIMETH-SULFAMETH. [place] C (VITEK) <=20: Sensitive us Esteban Daigle MD MICROBIOLOGY - GENERAL ORDERABLE S Final Result [facility] [address] [place] [address], documented in this encounter Visit Diagnoses Diagnosis Chronic venous hypertension (idiopathic) with ulcer and inflammation of bilateral lower extremity (CMS/HCC HHS/HCC) documented in this encounter Care Teams Station Chief Relationship Specialty Start Date End Date Leeroy Sheehan DO [address] [place] [address] PCP - General FAMILY PRACTICE 12/06/19 documented as of this encounter
--- OUTSIDE RECORDS SUMMARY | 2024-03-06 15:22 | XMS_ITS | Encounter Summary ---
Author Organization [facility] - [facility] Address [address] [place] [address]. [place] [address] [place] [address] Care Team Providers Care Marketing Services Vice President Name Role Phone Leeroy Sheehan DO Primary Care Provide r Reason for Visit * Consultation/Treatment (Routine) - Closed Specialty Diagnoses / Procedures Referred By Contac t Referred To Contact Specialist / [facility] Wound Care Diagnoses Non-pressure chronic ulcer of other part of left lower leg limited to breakdown of skin (CMS/HCC HHS/HCC) Venous insufficiency (chronic) (peripheral) BI LE Procedures WOUND NEW Esteban Rolle MD Gorton, Bryon, MD Referral ID Status Reason Start Date Expiration Date Visits Re quested Visits Authorized [id number] Closed 12/14/2019 01/30/2020 12 12 Encounter Details Date Type Department Care Team (Late st Contact Info) Description 01/05/2020 1:15 PM LAB DIRECTOR Office Visit [facility] [place] [address] Esteban Daigle MD Roy, Fany Orozco, [address] [place] [address] Social History Tobacco Use Types Packs/Day Years [...] have Coronavirus / COVID-19? No / Unsure 01/05/2020 12:39 PM LAB DIRECTOR documented as of this encounter Plan of Treatment Not on file documented as of this encounter Visit Diagnoses Not on filedocumented in this encounter Care Teams Marketing Services Vice President Relationship Specialty Start Date End Date Leeroy Sheehan DO [address] [place] [address] PCP - General FAMILY PRACTICE 12/06/19 documented as of this encounter
--- OUTSIDE RECORDS SUMMARY | 2024-03-06 15:22 | XMS_ITS | Encounter Summary ---
Author Organization [facility] Address [address] [place] [address]. [place], [place] [address] [place] [address] Care Team Providers Care Nursing Aide Name Role Phone Leeroy Sheehan DO Primary Care Provide r Encounter Details Date Type Department Care Team (Latest Contact Info) Description 05/22/2020 Travel Social History Tobacco Use Types Packs/Day [...] have Coronavirus / COVID-19? No / Unsure 05/22/2020 12:09 PM CDT documented as of this encounter Plan of Treatment Not on file documented as of this encounter Visit Diagnoses Not on filedocumented in this encounter Care Teams Nursing Aide Relationship Specialty Start Date End Date Leeroy Sheehan DO [address] [place] [address] PCP - General FAMILY PRACTICE 12/06/19 documented as of this encounter
--- OUTSIDE RECORDS SUMMARY | 2024-03-06 15:22 | XMS_ITS | Encounter Summary ---
Author Organization [facility] Address [address] [place] [address]. [place], [place] [address] [place] [address] Care Team Providers Care Vegetable Grower Name Role Phone Leeroy Sheehan DO Primary Care Provide r Encounter Details Date Type Department Care Team (Latest Contact Info) Description 10/11/2020 2:52 PM CDT - 10/11/2020 11:59 PM CDT Hospital Encounter [facility] [address] [facility] [address] Esteban Daigle MD Discharge Disposition: Home or [...] have Coronavirus / COVID-19? No / Unsure 10/11/2020 12:28 PM CDT documented as of this encounter [...] Procedure Name Priority Date/Time Associated Diagnosis Comments CULTURE, ANAEROBIC Routine 10/11/2020 2: 20 PM CDT Subacute osteomyelitis, unspecified site ([facility]) documented in this encounter Results * (ABNORMAL) CULTURE ANAEROBIC (10/11/2020 2:20 PM CDT) SPEC DESCRIPTION HEEL, LEFT 10/11/2020 2:53 PM CDT [facility] SPECIAL REQUESTS NO SPECIAL REQUEST 10/11/2020 2:53 PM CDT [facility] GRAM STAIN RESULT NO WHITE BLOOD CELLS SEEN 10/12/2020 10:45 AM CDT [facility] GRAM STAIN RESULT MANY RED BLOOD CELLS SEEN 10/12/2020 10:45 AM CDT [facility] GRAM STAIN RESULT NO ORGANISMS SEEN 10/12/2020 10:45 AM CDT [facility] CULTURE RESULT LIGHT GROWTH OF PROTEUS VULGARIS (A) 10/16/2020 11:49 AM CDT [facility] CULTURE RESULT NOTE: ANAEROBIC CULTURES ARE ROUTINELY SCREENED FOR BOTH AEROBIC AND ANAEROBIC ORGANISMS. 10/16/2020 11:49 AM CDT [facility] LEFT HEEL STRUCTURE / Unknown 10/11/2020 2:20 PM CDT 10/11/2020 3:12 PM CDT Narrative Organism Antibiotic Method Susceptibility Proteus vulgaris AMPICILLIN ADAM (VITEK) >=32: Resistant Proteus vulgaris AMPICILLIN/SULBACTAM ADAM (VITEK) 8: Sensitive Proteus vulgaris PIPRACIL/TAZO ADAM (VITEK) <=4: Sensitive Proteus vulgaris CEFAZOLIN ADAM (VITEK) >=64: Resistant Proteus vulgaris CEFTAZIDIME ADAM (VITEK) <=1: Sensitive Proteus vulgaris CEFTRIAXONE ADAM (VITEK) <=1: Sensitive Proteus vulgaris GENTAMICIN ADAM (VITEK) <=1: Sensitive Proteus vulgaris LEVOFLOXACIN ADAM (VITEK) <=0.12: Sensitive Proteus vulgaris TRIMETH-SULFAMETH. ADAM (VITEK) <=20: Sensitive Esteban Daigle MD MICROBIOLOGY - GENERAL ORDERABLE S Final Result [facility] [address] [place] [address], [place] [phone] documented in this encounter Visit Diagnoses Diagnosis Subacute osteomyelitis, unspecified site (CMS/HCC [facility]) documented in this encounter Care Teams Vegetable Grower Relationship Specialty Start Date End Date Leeroy Sheehan DO [address] [place] [phone] PCP - General FAMILY PRACTICE 12/06/19 documented as of this encounter
--- OUTSIDE RECORDS SUMMARY | 2024-03-06 15:22 | XMS_ITS | Encounter Summary ---
Author Organization [facility] - [facility] Address [address] [place] [address]. 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, Rachid Clifford MD Referral ID Status Reason Start Date Expiration Date Visits Re quested Visits Authorized [id number] Closed 11/14/2020 12/14/2021 1 1 Reason for Visit * Consultation/Treatment (Routine) - Closed Specialty Diagnoses / Procedures Referred By Contac t Referred To Contact WOUND CARE / [facility] Wound Care Diagnoses Venous insufficiency (chronic) (peripheral) Left LE Procedures WOUND NEW EVAL Leeroy Sheehan DO [address] [place] [address] Phone: tel: fax: Esteban Daigle MD Referral ID Status Reason Start Date Expiration Date Visits Re quested Visits Authorized [id number] Closed 05/15/2020 11/29/2020 12 12 Encounter Details Date Type Department Care Team (Late st Contact Info) Description 11/14/2020 3:15 PM CDT Office Visit [facility] [place] [address] Esteban Daigle MD Social History Tobacco Use [...] have Coronavirus / COVID-19? 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, limited to breakdown of skin, unspecified laterality ([facility]) Ordered: 11/14/2020 documented as of this encounter Results * (ABNORMAL) CULTURE ANAEROBIC (11/14/2020 4:12 PM CDT) SPEC DESCRIPTION HEEL, RIGHT 11/14/2020 7:36 PM CDT [facility] SPECIAL REQUESTS NO SPECIAL REQUEST 11/14/2020 7:36 PM CDT [facility] GRAM STAIN RESULT RARE WHITE BLOOD CELLS SEEN 11/15/2020 2:09 PM CDT [facility] GRAM STAIN RESULT NO ORGANISMS SEEN 11/15/2020 2:09 PM CDT [facility] CULTURE RESULT MODERATE GROWTH OF PROTEUS VULGARIS (A) 11/19/2020 11:39 AM CDT [facility] CULTURE RESULT SPARSE GROWTH OF METHICILLIN RESISTANT STAPHYLOCOCCUS AUREUS FOLLOW ISOLATION PROTOCOL. (AA) 11/19/2020 11:39 AM CDT [facility] CULTURE RESULT SPARSE GROWTH OF ENTEROBACTER CLOACAE COMPLEX (A) 11/19/2020 11:39 AM CDT [facility] CULTURE RESULT NOTE: ANAEROBIC CULTURES ARE ROUTINELY SCREENED FOR BOTH AEROBIC AND ANAEROBIC ORGANISMS. 11/19/2020 11:39 AM CDT [facility] RIGHT HEEL STRUCTURE / Unknown 11/14/2020 4:12 PM CDT 11/14/2020 7:57 PM CDT Narrative Organism Antibiotic Method Susceptibility Proteus vulgaris AMPICILLIN ADAM (VITEK) >=32: Resistant Proteus vulgaris AMPICILLIN/SULBACTAM ADAM (VITEK) 4: Sensitive Proteus vulgaris CEFTRIAXONE ADAM (VITEK) <=1: Sensitive Proteus vulgaris CEFTAZIDIME ADAM (VITEK) <=1: Sensitive Proteus vulgaris CEFAZOLIN ADAM (VITEK) >=64: Resistant Proteus vulgaris GENTAMICIN ADAM (VITEK) <=1: Sensitive Proteus vulgaris LEVOFLOXACIN ADAM (VITEK) <=0.12: Sensitive Proteus vulgaris PIPRACIL/TAZO ADAM (VITEK) <=4: Sensitive Proteus vulgaris TRIMETH-SULFAMETH. ADAM (VITEK) <=20: Sensitive Methicillin resistant staphylococcus aureus CLINDAMYCIN ADAM (VITEK) >=8: Resistant Methicillin resistant staphylococcus aureus ERYTHROMYCIN ADAM (VITEK) >=8: Resistant Methicillin resistant staphylococcus aureus OXACILLIN ADAM (VITEK) >=4: Resistant Methicillin resistant staphylococcus aureus TRIMETH-SULFAMETH. ADAM (VITEK) <=10: Sensitive Methicillin resistant staphylococcus aureus TETRACYCLINE ADAM (VITEK) <=1: Sensitive Methicillin resistant staphylococcus aureus VANCOMYCIN ADAM (VITEK) <=0.5: Sensitive Enterobacter cloacae complex CEFTRIAXONE ADAM (VITEK) <=1: Sensitive Enterobacter cloacae complex CEFTAZIDIME ADAM (VITEK) <=1: Sensitive Enterobacter cloacae complex CEFAZOLIN ADAM (VITEK) >=64: Resistant Enterobacter cloacae complex GENTAMICIN ADAM (VITEK) <=1: Sensitive Enterobacter cloacae complex LEVOFLOXACIN ADAM (VITEK) <=0.12: Sensitive Enterobacter cloacae complex PIPRACIL/TAZO ADAM (VITEK) <=4: Sensitive Enterobacter cloacae complex TRIMETH-SULFAMETH. ADAM (V ITEK) <=20: Sensitive us Esteban Daigle MD MICROBIOLOGY - GENERAL ORDERABLE S Final Result 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
--- OUTSIDE RECORDS SUMMARY | 2024-03-06 15:22 | XMS_ITS | Encounter Summary ---
Author Organization [facility] Address [address] [place] [address]. [place], [place] [address] [place] [address] Care Team Providers Care Tower Control Operator Name Role Phone Leeroy Sheehan DO Primary Care Provide r Encounter Details Date Type Department Care Team (Latest Contact Info) Description 11/07/2020 Travel Social History Tobacco Use Types Packs/Day [...] have Coronavirus / COVID-19? No / Unsure 11/07/2020 3:12 PM CDT documented as of this encounter Plan of Treatment Not on file documented as of this encounter Visit Diagnoses Not on filedocumented in this encounter Care Teams Tower Control Operator Relationship Specialty Start Date End Date Leeroy Sheehan DO [address] [place] [address] PCP - General FAMILY PRACTICE 12/06/19 documented as of this encounter
--- OUTSIDE RECORDS SUMMARY | 2024-03-06 15:22 | XMS_ITS | Encounter Summary ---
Author Organization [facility] Address [address] [place] [address]. [place], [place] [address] [place] [address] Care Team Providers Care Unix Systems Administrator Name Role Phone Leeroy Sheehan DO Primary Care Provide r Reason for Referral * Imaging (Routine) - Closed Specialty Diagnoses / Procedures Referred By Juan t Referred To Contact RADIOLOGY Diagnoses Subacute osteomyelitis, unspecified site ([facility]) Procedures MRI ANKLE LT WO CON Esteban Daigle MD Referral ID Status Reason Start Date Expiration Date Visits Re quested Visits Authorized [id number] Closed 10/11/2020 11/11/2021 1 1 Reason for Visit * Consultation/Treatment (Routine) - Closed Specialty Diagnoses / Procedures Referred By Contsylvester t Referred To Contact WOUND CARE / [facility] Wound Care Diagnoses Venous insufficiency (chronic) (peripheral) Left LE Procedures WOUND NEW EVAL Leeroy Sheehan DO [address] [place] [address] Phone: tel: fax: Esteban Daigle MD Referral ID Status Reason Start Date Expiration Date Visits Re quested Visits Authorized [id number] Closed 05/15/2020 11/29/2020 12 12 Encounter Details Date Type Department Care Team (Late st Contact Info) Description 10/11/2020 12:45 PM CDT Office Visit [facility] [place], [place] [id number] Esteban Daigle MD Social History Tobacco Use [...] Type Priority Associated Diagnoses Orde r Schedule MRI ANKLE LT WO CON MRI Routine Subacute osteomyelitis, unspecified site ([facility]) Expected: 10/11/2020, Expires: 10/11/2021 documented as of this encounter Results * (ABNORMAL) CULTURE ANAEROBIC (10/11/2020 2:20 PM CDT) SPEC DESCRIPTION HEEL, LEFT 10/11/2020 2:53 PM CDT [facility] SPECIAL REQUESTS NO SPECIAL REQUEST 10/11/2020 2:53 PM CDT [facility] GRAM STAIN RESULT NO WHITE BLOOD CELLS SEEN 10/12/2020 10:45 AM CDT [facility] GRAM STAIN RESULT MANY RED BLOOD CELLS SEEN 10/12/2020 10:45 AM CDT [facility] GRAM STAIN RESULT NO ORGANISMS SEEN 10/12/2020 10:45 AM CDT [facility] CULTURE RESULT LIGHT GROWTH OF PROTEUS VULGARIS (A) 10/16/2020 11:49 AM CDT [facility] CULTURE RESULT NOTE: ANAEROBIC CULTURES ARE ROUTINELY SCREENED FOR BOTH AEROBIC AND ANAEROBIC ORGANISMS. 10/16/2020 11:49 AM CDT [facility] LEFT HEEL STRUCTURE / Unknown 10/11/2020 [...] Proteus vulgaris TRIMETH-SULFAMETH. ADAM (VITEK) <=20: Sensitive us Esteban Daigle MD MICROBIOLOGY - GENERAL ORDERABLE S Final Result [facility] [address] [place] [address], documented in this encounter Visit Diagnoses Diagnosis Subacute osteomyelitis, unspecified site (CMS/H[facility])- Primary documented in this encounter Care Teams Unix Systems Administrator Relationship Specialty Start Date End Date Leeroy Sheehan DO [address] [place] [phone] PCP - General FAMILY PRACTICE 12/06/19 documented as of this encounter
--- OUTSIDE RECORDS SUMMARY | 2024-03-06 15:22 | XMS_ITS | Encounter Summary ---
Author Organization [facility] Address [address] [place] [address]. [place], [place] [phone] [place] [address] Care Team Providers Care Hotel General Manager Name Role Phone Leeroy Sheehan DO Primary Care Provide r Reason for Visit * Consultation/Treatment (Routine) - Closed Specialty Diagnoses / Procedures Referred By Contsylvester t Referred To Contact WOUND CARE / [facility] Wound Care Diagnoses Venous insufficiency (chronic) (peripheral) Left LE Procedures WOUND NEW EVAL Leeroy Sheehan DO [address] [place] [address] Phone: tel: fax: Esteban Daigle MD Referral ID Status Reason Start Date Expiration Date Visits Re quested Visits Authorized [id number] Closed 05/15/2020 11/29/2020 12 12 Encounter Details Date Type Department Care Team (Late st Contact Info) Description 10/31/2020 3:30 PM CDT Office Visit [facility] [place] [address] Esteban Daigle MD Social History [...] have Coronavirus / COVID-19? No / Unsure 10/31/2020 2:51 PM CDT documented as of this encounter Plan of Treatment Not on file documented as of this encounter Visit Diagnoses Not on filedocumented in this encounter Care Teams Hotel General Manager Relationship Specialty Start Date End Date Leeroy Sheehan DO [address] [place] [address] PCP - General FAMILY PRACTICE 12/06/19 documented as of this encounter
--- OUTSIDE RECORDS SUMMARY | 2024-03-06 15:22 | XMS_ITS | Encounter Summary ---
Author Organization [facility] - [facility] Address [address] [place] [address]. [place], [place] [phone] [place] [address] Care Team Providers Care Welt Edge Rounder Name Role Phone Leeroy Sheehan DO Primary Care Provide r Encounter Details Date Type Department Care Team (Latest Contact Info) Description 12/14/2019 Travel Social History Tobacco Use Types Packs/Day [...] on filedocumented in this encounter Care Teams Welt Edge Rounder Relationship Specialty Start Date End Date Leeroy Sheehan DO [address] [place] [phone] PCP - General FAMILY PRACTICE 12/06/19 documented as of this encounter
--- OUTSIDE RECORDS SUMMARY | 2024-03-06 15:22 | XMS_ITS | Encounter Summary ---
Author Organization [facility] Address [address] [place] [address]. [place], [place] [id number] [place] [address] Care Team Providers Care Follow Up Manager Name Role Phone Leeroy Sheehan DO Primary Care Provide r Encounter Details Date Type Department Care Team (Latest Contact Info) Description 11/14/2020 7:35 PM CDT - 11/14/2020 11:59 PM CDT Hospital Encounter [facility] [place] [address] Esteban Daigle MD Discharge Disposition: Home or [...] Date/Time Associated Diagnosis Comments CULTURE, ANAEROBIC Routine 11/14/2020 4: 12 PM CDT Skin ulcer of heel, limited to breakdown of skin, unspecified laterality ([facility]) documented in this encounter Results * (ABNORMAL) CULTURE ANAEROBIC (11/14/2020 4:12 PM CDT) SPEC DESCRIPTION HEEL, RIGHT 11/14/2020 7:[address] [facility] SPECIAL REQUESTS NO SPECIAL REQUEST 11/14/2020 7:[address] [facility] GRAM STAIN RESULT RARE WHITE BLOOD CELLS SEEN 11/15/2020 2:[address] [facility] GRAM STAIN RESULT NO ORGANISMS SEEN 11/15/2020 2:[address] [facility] CULTURE RESULT MODERATE GROWTH OF PROTEUS VULGARIS (A) 11/19/2020 11:[address] [facility] CULTURE RESULT SPARSE GROWTH OF METHICILLIN RESISTANT STAPHYLOCOCCUS AUREUS FOLLOW ISOLATION PROTOCOL. (AA) 11/19/2020 11:[address] [facility] CULTURE RESULT SPARSE GROWTH OF ENTEROBACTER CLOACAE COMPLEX (A) 11/19/2020 11:[address] [facility] CULTURE RESULT NOTE: ANAEROBIC CULTURES ARE ROUTINELY SCREENED FOR BOTH AEROBIC AND ANAEROBIC ORGANISMS. 11/19/2020 11:[address] [facility] RIGHT HEEL STRUCTURE / Unknown [...] MICROBIOLOGY - GENERAL ORDERABLE S Final Result [facility] [address] [place] [address], documented in this encounter Visit Diagnoses Diagnosis Skin ulcer of heel, limited to breakdown of skin, unspecified laterality ([facility]/HCC [facility]) documented in this encounter Care Teams Follow Up Manager Relationship Specialty Start Date End Date Leeroy Sheehan DO [address] [place] [phone] PCP - General FAMILY PRACTICE 12/06/19 documented as of this encounter
--- OUTSIDE RECORDS SUMMARY | 2024-03-06 15:22 | XMS_ITS | Encounter Summary ---
Author Organization [facility] Address [address] [place] [address]. [place], [place] [id number] [place] [address] Care Team Providers Care Handkerchief Cutter Name Role Phone Leeroy Sheehan DO Primary Care Provide r Reason for Visit * Consultation/Treatment (Routine) - Closed Specialty Diagnoses / Procedures Referred By Contac t Referred To Contact Specialist / [facility] Wound Care Diagnoses Non-pressure chronic ulcer of other part of left lower leg limited to breakdown of skin (CMS/HCC HHS/HCC) Venous insufficiency (chronic) (peripheral) BI LE Procedures WOUND NEW Esteban Soni MD Gorton, Bryon, MD Referral ID Status Reason Start Date Expiration Date Visits Re quested Visits Authorized [id number] Closed 12/14/2019 01/30/2020 12 12 Encounter Details Date Type Department Care Team (Late st Contact Info) Description 12/14/2019 12:45 PM CDT Office Visit [facility] [address] [place] [address] Esteban Daigle MD Social History Tobacco Use [...] DESCRIPTION HEEL, LEFT 12/14/2019 5:21 PM CDT [facility] SPECIAL REQUESTS NO SPECIAL REQUEST 12/14/2019 5:21 PM CDT [facility] GRAM STAIN RESULT NO WHITE BLOOD CELLS SEEN 12/15/2019 12:43 PM CDT [facility] GRAM STAIN RESULT NO ORGANISMS SEEN 12/15/2019 12:43 PM CDT [facility] CULTURE RESULT SPARSE GROWTH OF KLEBSIELLA PNEUMONIAE (A) 12/17/2019 9:59 AM CDT [facility] CULTURE RESULT SPARSE GROWTH OF MORGANELLA MORGANII SSP. SIBONII (A) 12/17/2019 9:59 AM CDT [facility] CULTURE RESULT MODERATE GROWTH OF STREPTOCOCCUS NON GROUPABLE SUSCEPTIBILTY NOT ROUTINELY PERFORMED. SAVING ISOLATE FOR 5 DAYS. CONTACT MICROBIOLOGY DEPARTMENT IF FURTHER WORKUP IS INDICATED. (A) 12/17/2019 9:59 AM CDT [facility] CULTURE RESULT NOTE: WOUND AND TISSUE CULTURES ARE ROUTINELY SCREENED FOR AEROBIC ORGANISMS ONLY. 12/17/2019 9:59 AM T [facility] LEFT HEEL STRUCTURE / Unknown 12/14/2019 2:11 PM CDT 12/14/2019 5:26 PM CDT Narrative Organism Antibiotic Method Susceptibility Klebsiella pneumoniae AMPICILLIN ADAM (VITEK) 16: Resistant Klebsiella pneumoniae AMPICILLIN/SULBACTAM ADAM (VITEK) 4: Sensitive Klebsiella pneumoniae CEFTRIAXONE ADAM (VITEK) <=1: Sensitive Klebsiella pneumoniae CEFTAZIDIME ADAM [...] <=4: Sensitive Morganella morganii ssp. sibonii TRIMETH-SULFAMETH. 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
--- OUTSIDE RECORDS SUMMARY | 2024-03-06 15:22 | XMS_ITS | Encounter Summary ---
Author Organization [facility] Address [address] [place] [address]. [place], [place] [phone] [place] [address] Care Team Providers Care Spectral Scientist Name Role Phone Leeroy Sehehan DO Primary Care Provide r Encounter Details Date Type Department Care Team (Latest Contact Info) Description 11/14/2020 Travel Social History Tobacco Use Types Packs/Day [...] on filedocumented in this encounter Care Teams Spectral Scientist Relationship Specialty Start Date End Date Leeroy Sheehan DO [address] [place] [phone] PCP - General FAMILY PRACTICE 12/06/19 documented as of this encounter
--- OUTSIDE RECORDS SUMMARY | 2024-03-06 15:22 | XMS_ITS | Encounter Summary ---
Author Organization [facility] Address [address] [place] [address]. [place], [place] [phone] [place] [address] Care Team Providers Care Silver Brazer Name Role Phone Leeroy Sheehan DO Primary Care Provide r Encounter Details Date Type Department Care Team (Latest Contact Info) Description 01/05/2020 Travel Social History Tobacco Use Types Packs/Day [...] COVID-19? 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
--- OUTSIDE RECORDS SUMMARY | 2024-03-06 15:22 | XMS_ITS | Encounter Summary ---
Author Organization [facility] Address [address] [place] [address]. [place], [place] [phone] [place] [address] Care Team Providers Care Photographers' Model Name Role Phone Leeroy Sheehan DO Primary Care Provide r Reason for Visit * Reason Comments Lab (SCAN) Encounter Details Date Type Department Care Team (Latest Contact Info) Description 05/23/2020 Scan HEALTH INFO [facility] Scanned, Documents Lab (SCAN) Social History Tobacco Use Types Packs/Day Years [...] Procedure Name Priority Date/Time Associated Diagnosis Comments OUTSIDE LAB (SCAN ORDER) Routine 05/23/2020 documented in this encounter Results * OUTSIDE LAB (SCAN) (05/23/2020) HGB A1C 11.3 % [facility] ONBASE 05/23/2020 us Documents Scanned SCANNING Final Result HS ONBASE documented in this encounter Visit Diagnoses Not on filedocumented in this encounter Additional Health Concerns Infection Onset Date Last Indicated Resolved Time MRSA Comment:11/14/20 +MRSA Right heel 11/17/2020 11/17/2020 documented as of this encounter Care Teams Photographers' Model Relationship Specialty Start Date End Date Leeroy Sheehan DO [address] [place] [phone] PCP - General FAMILY PRACTICE 12/06/19 documented as of this encounter
--- OUTSIDE RECORDS SUMMARY | 2024-03-06 15:22 | XMS_ITS | Encounter Summary ---
Author Organization [facility] Address [address] [place] [address]. [place], [place] [phone] [place] [address] Care Team Providers Care Drop Wire Stringer Name Role Phone Leeroy Sheehan DO Primary Care Provide r Encounter Details Date Type Department Care Team (Latest Contact Info) Description 10/31/2020 Travel Social History Tobacco Use Types Packs/Day [...] on filedocumented in this encounter Care Teams Drop Wire Stringer Relationship Specialty Start Date End Date Leeroy Sheehan DO [address] [place] [phone] PCP - General FAMILY PRACTICE 12/06/19 documented as of this encounter
--- OUTSIDE RECORDS SUMMARY | 2024-03-06 15:22 | XMS_ITS | Encounter Summary ---
Author Organization [facility] Address [address] [place] [address]. [place], [place] [id number] [place] [id number] Care Team Providers Care Cotton Expert Name Role Phone Leeroy Sheehan DO Primary Care Provide r Reason for Visit * Reason Comments Wound Infection Complicated Encounter Details Date Type Department Care Team (Late st Contact Info) Description 05/22/2020 12:38 PM CDT - 05/23/2020 Emergency [facility] [place] [address] Boyd Louis MD [address] [id number] Bonny Simmons MD [address] [id number] Misael Sánchez MD,PHD [address] [place] [address] Wound Infection Complicated Discharge Disposition: Transfer to Acute Care Hospital Social History Tobacco Use Types Packs/Day Years [...] Sign Reading Time Taken Comments Blood Pressure 155/91 05/22/2020 10:00 PM CDT Pulse 106 05/22/2020 10:00 PM CDT Temperature 36.6 ??C (97.9 ??F) 05/22/2020 12:33 PM C DT Respiratory Rate 21 05/22/2020 10:00 PM CDT Oxygen Saturation 89% 05/22/2020 10:00 PM CDT Inhaled Oxygen Concentration - - Weight 136.1 kg (300 lb) 05/22/2020 12:33 PM CDT Height 180.3 cm (5' 11 ) 05/22/2020 12:33 PM CDT Body Mass Index 41.84 05/22/2020 12:33 PM CDT documented in this encounter Medications at Time [...] 03/13/2020 2 documented as of this encounter ED Notes * Bonny Simmons MD - 05/23/2020 12:00 AM CDT Emergency Department Assumed Care Note Patient signed out to me by Dr Louis. Briefly, Taye Marrero . is a 64-year-old male is being evaluated for wound to left heel. Vitals: 05/22/20 2200 BP: (!) 155/91 Pulse: 106 Resp: 21 Temp: SpO2: (!) 89% Thus far, studies reveal: Left foot xray shows changes of osteomyelitis. WBC is 11.4. CRP is 10.2 Pending studies include: none Plan from sign out is: Transfer to appropriate facility. ED Course as of Jun 07 910e May 22, 2020 1546 No vascular surg coverage today here therefore pt will require transfer. Discussed with pt andwife who are agreeable. Spoke with [facility] access line. [BH] 1551 DP pulses present by doppler. [BH] [address] Doyle, hospitalist at [facility] in [place] who accepts pt as directadmit. [] ED Course User Index [BH] Bonny Simmons MD Clinical impression: SNOMED CT(R) 1. Cellulitis CELLULITIS 2. Osteomyelitis (CMS/HCC) OSTEOMYELITIS Disposition: Transfer to Another Facility Bonny Simmons MD 06/07/2020 Bonny Simmons MD 06/07/20 0914 * EMY Kennedy - 05/22/2020 10:39 PM CDT Contacted [place] to arrange transport to [facility]. Dispatch gives ETA od 2 am. EMY Kennedy * Chyna Arthur RN - 05/22/2020 10:36 PM CDT poct bgl 225.CHYNA ARTHUR RN * Chyna Arthur RN - 05/22/2020 10:13 PM CDT Pt requesting his metformin, asked Dr. Simmons about administering the medication. Dr. Simmons gave verbal order for the medication.CHYNA ARTHUR RN * Chyna Arthur RN - 05/22/2020 10:08 PM CDT Assisted the pt with the urinal. Repositioned the pt for comfort.CHYNA ARTHUR RN * Sabiha Lofton RN - 05/22/2020 7:16 PM CDT Necrotic area to Left bottom of heal noted. Large in size approx baseball size. * Chyna Arthur RN - 05/22/2020 7:00 PM CDT Provided pt with a urinal. Pt soiled the bed and floor while attempting to use the urinal. Cleaned and repositioned the patient.CHYNA ARTHUR RN * Chyna Arthur RN - 05/22/2020 5:41 PM CDT Called [facility] for transportation. [facility] stated he was on the list for transfer but they were currently backed up with 911 calls.CHYNA ARTHUR RN * Chyna Arthur RN - 05/22/2020 5:31 PM CDT [facility].CHYNA ARTHUR RN * Sabiha Lofton RN - 05/22/2020 5:20 PM CDT Report to Le[facility] at [facility]. * Chyna Arthur RN - 05/22/2020 2:15 PM CDT Repositioned pt for comfort.CHYNA ARTHUR RN * Boyd Louis MD - 05/22/2020 1:16 PM CDT Emergency Department Note Chief Complaint Chief Complaint Patient presents with ??? Wound Infection Complicated History of Present Illness 64 year old male with a hx of CAD, HLD, HTN, and DM presents to the ED with complaints of ulcer to left heel. Pt states he began to notice the ulcer about 3 weeks ago. States he recently moved from an apartment with carpet to one with hardwood floors which has caused the ulcer to progressively worsen. Pt states ulcer is painful but is able to ambulate short distances. On Metformin, last checked blood sugar about 3 weeks ago. He has chronic lymphedema and reports both legs are red and swollen but this is actually somewhat improved from his baseline. He denies recently being on antibiotics. Medical History ALLERGIES: No Known Allergies MEDICATIONS: Prior to Admission medications Medication Sig Start Date End Date Taking? Authorizing Provider albuterol sulfate HFA 108 (90 Base) MCG/ACT inhaler Inhale 2 puffs into the lungs every 4 (four) hours as needed for Shortness of breath. 01/28/20 Yes Doc Abstract aspirin EC (ASPIRIN EC) 81 MG tablet Take 81 mg by mouth daily. Yes Doc Abstract DULoxetine HCl 40 MG CAPSULE ENTERIC COATED PARTICLES Take 40 mg by mouth daily. 05/04/20 Yes Doc Abstract furosemide 40 MG tablet Take 40 mg by mouth 2 (two) times daily. 04/27/20 Yes Doc Abstract gabapentin 300 MG capsule Take 300 mg by mouth 6 (six) times daily. 04/25/20 Yes Doc Abstract glimepiride 4 MG tablet Take 4 mg by mouth daily. 02/27/20 Yes Doc Abstract HYDROcodone-acetaminophen 7.5-325 MG tablet Take 1 tablet by mouth every 6 (six) hours as needed for Pain. MAX: 4 TABS/DAY. 04/30/20 Yes Doc Abstract levothyroxine 100 MCG tablet Take 100 mcg by mouth daily. 05/19/20 Yes Doc Abstract lisinopril 40 MG tablet Take 40 mg by mouth daily. 03/13/20 Yes Doc Abstract loratadine 10 MG tablet Take 10 mg by mouth daily. Yes Doc Abstract metFORMIN 1000 MG tablet Take 1,000 mg by mouth 2 (two) times daily with meals. 03/28/20 Yes Doc Abstract multi vitamin/minerals tablet Take 1 tablet by mouth daily. Yes Doc Abstract omeprazole EC 20 MG tablet Take 20 mg by mouth daily. Yes Doc Abstract pravastatin 40 MG tablet Take 40 mg by mouth daily. 03/08/20 Yes Doc Abstract TIADYLT ER 240 MG 24 hr capsule Take 240 mg by mouth daily. 03/13/20 Yes Doc Abstract traZODone 150 MG tablet Take 150 mg by mouth daily. 06/24/19 Yes Doc Abstract PAST MEDICAL HISTORY: Past Medical History: Diagnosis Date ??? Diabetes mellitus (CMS/HCC) ??? High cholesterol ??? Hypertension PAST SURGICAL HISTORY: History reviewed. No pertinent surgical history. FAMILY HISTORY: No family history on file. SOCIAL HISTORY: Social History Tobacco Use ??? Smoking status: Former Smoker ??? Smokeless tobacco: Never Used Substance Use Topics ??? Alcohol use: Never Frequency: Never ??? Drug use: Never Review of Systems Review of Systems Constitutional: Denies fever Eyes: Denies visual changes HENT: Denies sore throat or ear pain. Respiratory: Denies shortness of breath. Cardiovascular: Denies chest pain GI: Denies abdominal pain Musculoskeletal: Denies back pain Skin: See HPI. Neurologic: Denies headache Endocrine: Denies hypoglycemia Lymphatic: Denies swollen glands. Psychiatric: Denies depression, SI See HPI for further details. All systems negative except as marked. Physical Exam Filed Vitals: 05/22/20 1300 05/22/20 1400 05/22/20 1415 05/22/20 1430 BP: 126/82 126/82 141/74 Pulse: 97 105 97 87 Resp: 18 20 17 18 Temp: SpO2: 99% 98% 95% 98% Weight: Height: Physical Exam Constitutional: BMI 41 HEENT: Normocephalic, Atraumatic, Bilateral external ears normal, EOMI, Conjunctiva normal, No discharge.Oropharynx moist, Nose normal. Respiratory: Normal breath sounds, No respiratory distress. Cardiovascular: Normal heart rate, Normal rhythm GI: Soft, No tenderness, No masses, No pulsatile masses. Neck: Normal range of motion, No tenderness, Supple, No stridor. Back: No tenderness Extremities: Lymphedema and erythema to bilateral lower extremities. Large deep ulceration to left heel with black eschar. Feet warm but no palpable DP or PT pulses. Skin: Warm Neurologic: Alert & oriented x 3, Normal motor function, Normal sensory function, No focal deficits noted. Psychiatric: Affect normal, Judgment normal, Mood normal. Medical decision making: Problem list: Large ulceration, obesity Differential: Hyperglycemia, diabetic ulcer versus osteomyelitis, other Plan for diagnostic labs, x-ray Treat with broad-spectrum antibiotics Diagnostic Studies / Procedures ELECTROCARDIOGRAMS: No results found for this visit on 05/22/20. PULSE OX: SpO2: (!) 87 % Interpretation:Hypoxic LABORATORY STUDIES: Results for orders placed or performed during the hospital encounter of 05/22/20 CBC W/DIFF AUTOMATED Result Value Ref Range WBC 11.4 (H) 4.5 - 11.0 x10'3/uL RBC 5.23 4.70 - 6.10 x10'6/uL HGB 14.5 14.0 - 18.0 G/DL HCT 46.7 43.0 - 54.0 % MCV 89.3 80.0 - 94.0 FL MCH 27.7 27.0 - 31.0 PG MCHC 31.0 (L) 32.0 - 36.0 G/DL RDW 14.6 (H) 11.5 - 14.5 % PLT 315 130 - 400 x10'3/uL MPV 10.0 9.3 - 12.2 FL DIFFERENTIAL TYPE AUTOMATED DIFFERENTIAL NEUTROPHILS 79.7 % LYMPHOCYTES 8.0 % MONOCYTES 9.3 % EOSINOPHILS 2.0 % BASOPHILS 0.7 % IMMATURE GRANS 0.3 % ABS. NEUTROPHILS TOTAL 9.10 (H) 1.80 - 7.70 x10'3/uL ABS. LYMPHOCYTES 0.92 (L) 1.00 - 4.80 x10'3/uL ABS. MONOCYTES 1.06 (H) 0.30 - 0.82 x10'3/uL ABS. EOSINOPHILS 0.23 0.04 - 0.54 x10'3/uL ABS. BASOPHILS 0.08 0.01 - 0.08 x10'3/uL ABS. IMMATURE GRANULOCYTES 0.04 0.00 - 0.49 x10'3/uL LACTIC ACID Result Value Ref Range LACTIC ACID 1.8 0.4 - 2.0 MMOL/L COMPREHENSIVE METABOLIC PANEL Result Value Ref Range GLUCOSE 235 (H) 70 - 99 MG/DL BUN 17 7 - 18 MG/DL CREATININE S/P/B 1.05 0.7 - 1.3 MG/DL SODIUM 130 (L) 136 - 145 MMOL/L POTASSIUM 4.0 3.5 - 5.1 MMOL/L CHLORIDE S/P/B 95 (L) 100 - 108 MMOL/L CO2 32.5 (H) 21 - 32 MMOL/L CALCIUM 10.2 (H) 8.5 - 10.1 MG/DL BILIRUBIN TOTAL S/P/B 0.5 0.2 - 1.2 MG/DL TOTAL PROTEIN S/P/B 8.8 (H) 6.4 - 8.2 G/DL ALBUMIN S/P/B 2.5 (L) 3.4 - 5.0 G/DL AST 12 (L) 15 - 37 U/L ALT 16 16 - 60 U/L ALKALINE PHOSPHATASE S/P/B 91 50 - 136 U/L ANION GAP 2.5 (L) 5 - 15 MMOL/L BUN CREATININE RATIO 16.2 6 - 26 A/G RATIO 0.4 (L) 1.0 - 2.0 RATIO eGFR Non-Afr. Amer. 75 (L) >90 ML/MIN/1.73 M2 eGFR Afr. Amer. 87 (L) >90 ML/MIN/1.73 M2 C-REACTIVE PROTEIN Result Value Ref Range C-REACTIVE PROTEIN 10.20 (H) <0.29 mg/dL IMAGING STUDIES Xr Foot Lt 3v Result Date: 05/22/2020 Examination: Left foot 3 views Exam date/time: 05/22/2020 12:26 PM Reason For Exam: pain Comparison: None Technique: AP, oblique and lateral views of the left foot were obtained.Findings: Prominent soft tissues are present throughout the foot. There is swelling of the second digit. Soft tissue swelling is present about the lower extremity. Hardware is present in the distal tibia. No. Hardware lucency is present. Achilles and plantar enthesopathy. There are erosive changes are present about the plantar aspect of the distal phalanx of the first digit cannot exclude osteomyelitis. There is a prominent heel ulcer that is present. There is slight lucency about the calcaneusI cannot exclude a cellulitis. =====IMPRESSION:===== Prominent soft tissue swelling. No definitive evidence of acute bony abnormality. Soft tissue swelling is present involving the second digit. I cannot exclude that this may relate to underlying infectious process.There are erosive changes are present about the plantar aspect of the distal phalanx of the first digit, I cannot exclude osteomyelitis. There is a prominent heel ulcer that is present. There is slight lucency about the calcaneus I cannot exclude a cellulitis. Further evaluation with MRI may be of further use. Referred By: BOYD LOUIS Interpreted By: Ray Saenz MD, 05/22/2020 1:49 PM ED Course Blood sugar 235. CRP elevated. Foot x-ray with concerns for cellulitis/osteomyelitis. Patient will likely need admission. Patient signed out oncoming physician at 3 PM. Medications cefTRIAXone (ROCEPHIN) 2 g in sodium chloride 0.9 % 50 mL IVPB (has no administration in time range) vancomycin (VANCOCIN) 2,500 mg in sodium chloride 0.9 % 500 mL IVPB (has no administration in time range) BOYD LOUIS MD 05/22/2020 Boyd Louis MD 05/22/20 1450 * Aracelis Franco RN - 05/22/2020 12:32 PM CDT Pt arrives from PCP office for left foot infection/necrosis. Also reports multiple falls daily, POX87% in triage w/o hx of COPD or home O2. Hx of DM2 but lost his glucometer while moving and has notchecked his BS in some time. documented in this encounter Plan of Treatment Not on file documented as of this encounter Procedures Procedure Name Priority Date/Time Associated Diagnosis Comments POCT GLUCOSE - DORSEY DOCKED DEVICE Routine 05/22/2020 10:35 PM CDT XR CHEST PORTABLE STAT 05/22/2020 3:1 4 PM CDT XR FOOT LT 3V STAT 05/22/2020 1:36 PM CDT CULTURE, BACTERIA, BLOOD STAT 05/22/2020 1:21 PM CDT SED RATE, ERYTHROCYTE (ESR) STAT 05/22/2020 12:56 PM CDT COMPREHENSIVE METABOLIC PANEL STAT 05/22/2020 12:56 PM CDT LACTIC ACID TIMED 05/22/2020 12:56 PM CDT C-REACTIVE PROTEIN STAT 05/22/2020 12 :56 PM CDT CULTURE, BACTERIA, BLOOD STAT 05/22/2020 12:56 PM CDT CBC W/DIFF AUTOMATED STAT 05/22/2020 12:56 PM CDT documented in this encounter Results * (ABNORMAL) POCT glucose (05/22/2020 10:35 PM CDT) GLUCOSE POC 225(H) 70 - 99 mg/dL 05/22/2020 10:43 PM CDT [facility] 05/22/2020 10:3 5 PM CDT us Bonny Simmons MD POCT ORDERABLES - DEVICE Cindy l Result [facility] [address] [place] [address], [place] [phone] * XR CHEST PORTABLE (05/22/2020 3:14 PM CDT) Anatomical Region Laterality Modality Chest Radiographic Dorene ging 05/22/2020 3:19 PM CDT Impressions 05/22/2020 3:20 PM CDT IMPRESSION: CHF Referred By: BOYD LOUIS Interpreted By: García Rocha MD, 05/22/2020 3:19 PM Narrative 05/22/2020 3:20 PM CDT SINGLE VIEW OF THE CHEST Clinical history: Shortness of breath Comparison: None A single view of the chest demonstrates mild cardiomegaly. The pulmonary vessels are indistinct due to increased interstitial densities throughout the lungs. The overall appearance suggests CHF Procedure Note García Rocha MD - 05/22/2020 SINGLE VIEW OF THE CHEST Clinical history: Shortness of breath Comparison: None A single view of the chest demonstrates mild cardiomegaly. The pulmonary vessels are indistinct due to increased interstitial densitiesthroughout the lungs. The overall appearance suggests CHF IMPRESSION: CHF Referred By: BOYD LOUIS Interpreted By: García Rocha MD, 05/22/2020 3:19 PM us Boyd Louis MD GENERAL IMAGING Final Result * XR FOOT LT 3V (05/22/2020 1:36 PM CDT) Anatomical Region Laterality Modality Foot Radiographic Dorene ging 05/22/2020 1:49 PM CDT Impressions 05/22/2020 1:53 PM CDT =====IMPRESSION:===== Prominent soft tissue swelling. No definitive evidence of acute bony abnormality. Soft tissue swelling is present involving the second digit. I cannot exclude that this may relate to underlying infectious process.There are erosive changes are present about the plantar aspect of the distal phalanx of the first digit, I cannot exclude osteomyelitis. ??There is a prominent heel ulcer that is present. There is slight lucency about the calcaneus I cannot exclude a cellulitis. Further evaluation with MRI may be of further use. Referred By: BOYD LOUIS Interpreted By: Ray Saenz MD, 05/22/2020 1:49 PM Narrative 05/22/2020 1:53 PM CDT Examination: Left foot 3 views Exam date/time: 05/22/2020 12:26 PM Reason For Exam: ??pain ? Comparison: None Technique: AP, oblique and lateral views of the left foot were obtained. Findings: Prominent soft tissues are present throughout the foot. There is swelling of the second digit. Soft tissue swelling is present about the lower extremity. Hardware is present in the distal tibia. No. Hardware lucency is present. Achilles and plantar enthesopathy. There are erosive changes are present about the plantar aspect of the distal phalanx of the first digit cannot exclude osteomyelitis. There is a prominent heel ulcer that is present. There is slight lucency about the calcaneus I cannot exclude a cellulitis. Procedure Note Ray Saenz MD - 05/22/2020 Examination: Left foot 3 views Exam date/time: 05/22/2020 12:26 PM Reason For Exam: pain Comparison: None Technique: AP, oblique and lateral views of the left foot were obtained. Findings: Prominent soft tissues are present throughout the foot. Thereis swelling of the second digit. Soft tissue swelling is present about the lower extremity. Hardware is present in the distal tibia. No. Hardware lucency ispresent. Achilles and plantar enthesopathy. There are erosive changes are present about the plantar aspect of the distal phalanx of the first digit cannot exclude osteomyelitis. There is a prominent heel ulcer that is present. There is slight lucency about the calcaneus I cannot exclude acellulitis. =====IMPRESSION:===== Prominent soft tissue swelling. No definitive evidence of acute bony abnormality. Soft tissue swelling is present involving the second digit.I cannot exclude that this may relate to underlying infectiousprocess.There are erosive changes are present about the plantar aspect of the distal phalanx of the first digit, I cannot exclude osteomyelitis. There is a prominent heel ulcer that is present. There is slight lucency about the calcaneus I cannot exclude a cellulitis. Further evaluation with MRI may be of further use. Referred By: BOYD LOUIS Interpreted By: Ray Saenz MD, 05/22/2020 1:49 PM Boyd Louis MD GENERAL IMAGING Final Result * CULTURE, BACTERIA, BLOOD (05/22/2020 1:21 PM CDT) SPEC DESCRIPTION BLOOD 05/23/19 1:33 PM CDT [facility] SPECIAL REQUESTS DRAWN FROM RIGHT ARM 05/22/2020 1:33 PM CDT [facility] CULTURE RESULT NO GROWTH 5 DAYS 05/27/2020 1:17 PM CDT [facility] BLOOD SPECIMEN OBTAINED FOR BLOOD CULTURE / Unknown 05/22/2020 1:21 PM CDT 05/22/2020 1:33 PM CDT Boyd Louis MD MICROBIOLOGY - GENERA L ORDERABLES Final Result [facility] [address] [place] [address], [place] [phone] * (ABNORMAL) C-REACTIVE PROTEIN (05/22/2020 12:56 PM CDT) C-REACTIVE PROTEIN 10.20(H) <0.29 mg/dL 05/22/2020 1:56 PM CDT [facility] 05/22/2020 12:5 6 PM CDT Boyd Louis MD LABORATORY Final Result Performing Organization Address City/[facility] Co de Phone Number [facility] [address] [place] [address], [place] [phone] * (ABNORMAL) SED RATE, ERYTHROCYTE (ESR) (05/22/2020 12:56 PM CDT) ESR >130(H) <20 MM/HR 05/22/2020 3:19 PM CDT [facility] Comment:Testing performed on [employer] iSED. 05/22/2020 12:5 6 PM CDT Boyd Louis MD LABORATORY Final Result Performing Organization Address City/[facility]/ZIP Co de Phone Number [facility] [address] [place] [address], [place] [phone] * CULTURE, BACTERIA, BLOOD (05/22/2020 12:56 PM CDT) SPEC DESCRIPTION BLOOD 05/22/2020 12:22 PM CDT [facility] SPECIAL REQUESTS NO SPECIAL REQUEST 05/22/2020 12:22 PM CDT [facility] CULTURE RESULT NO GROWTH 5 DAYS 05/27/2020 1:17 PM CDT [facility] BLOOD SPECIMEN OBTAINED FOR BLOOD CULTURE / Unknown 05/22/2020 12:56 PM CDT 05/22/2020 1:05 PM CDT us Boyd Louis MD MICROBIOLOGY - GENERA L ORDERABLES Final Result [facility] [address] [place] [address], [place] [phone] * (ABNORMAL) COMPREHENSIVE METABOLIC PANEL (05/22/2020 12:56 PM CDT) Pathologist [facility] [place] GLUCOSE 235(H) 70 - 99 MG/DL 05/22/2020 1:56 PM CDT [facility] BUN 17 7 - 18 MG/DL 05/22/2020 1:56 PM CDT [facility] CREATININE S/P/B 1.05 0.7 - 1.3 MG/DL 05/22/2020 1:56 PM CDT [facility] SODIUM S/P/B 130(L) 136 - 145 MMOL/L 05/22/2020 1:56 PM CDT [facility] POTASSIUM S/P/B 4.0 3.5 - 5.1 MMOL/L 05/22/2020 1:56 PM CDT [facility] CHLORIDE S/P/B 95(L) 100 - 108 MMOL/L 05/22/2020 1:56 PM CDT [facility] CO2 32.5(H) 21 - 32 MMOL/L 05/22/2020 1:56 PM T [facility] CALCIUM S/P/B 10.2(H) 8.5 - 10.1 MG/DL 05/22/2020 1:56 PM T [facility] BILIRUBIN TOTAL S/P/B 0.5 0.2 - 1.2 MG/DL 05/22/2020 1:56 PM T [facility] Comment: THIS ASSAY IS NOT RECOMMENDED FOR PATIENTS UNDERGOING TREATMENT WITH ELTROMBOPAG DUE TO THE POTENTIAL FOR FALSELY ELEVATED RESULTS. TOTAL PROTEIN S/P/B 8.8(H) 6.4 - 8.2 G/DL 05/22/2020 1:56 PM T [facility] ALBUMIN S/P/B 2.5(L) 3.4 - 5.0 G/DL 05/22/2020 1:56 PM T [facility] AST 12(L) 15 - 37 U/L 05/22/2020 1:56 PM T [facility] ALT 16 16 - 60 U/L 05/22/2020 1:56 PM T [facility] ALKALINE PHOSPHATASE S/P/B 91 50 - 136 U/L 05/22/2020 1:56 PM T [facility] ANION GAP 2.5(L) 5 - 15 MMOL/L 05/22/2020 1:56 PM T [facility] BUN CREATININE RATIO 16.2 6 - 26 05/22/2020 1:56 PM T [facility] A/G RATIO 0.4(L) 1.0 - 2.0 RATIO 05/22/2020 1:56 PM T [facility] EGFR NON-AFR. AMER. 75(L) >90 ML/MIN/1.7 3 M2 05/22/2020 1:56 PM CDT [facility] EGFR AFR. AMER. 87(L) >90 ML/MIN/1.7 3 M2 05/22/2020 1:56 PM CDT [facility] Comment: NOTE: eGFR is not calculated for patients <18 years of age. This is an estimated GFR (CKD EPI) and should not be used for calculating drug doses. 05/22/2020 12:5 6 PM CDT us Boyd Louis MD LABORATORY Final Result Performing Organization Address City/[facility]/ZIP Co de Phone Number [facility] [address] [place] [address], [place] [phone] * LACTIC ACID (05/22/2020 12:56 PM CDT) LACTIC ACID VENOUS 1.8 0.4 - 2.0 MMOL/L 05/22/2020 1:56 PM CDT [facility] 05/22/2020 12:5 6 PM CDT us Boyd Louis MD LABORATORY Final Result [facility] [address] [place] [address], [place] [phone] * (ABNORMAL) CBC W/DIFF AUTOMATED (05/22/2020 12:56 PM CDT) WBC 11.4(H) 4.5 - 11.0 x10'3/uL 05/22/2020 1:13 PM CDT [facility] RBC 5.23 4.70 - 6.10 x10'6/uL 05/22/2020 1:13 PM CDT [facility] HGB 14.5 14.0 - 18.0 G/DL 05/22/2020 1:13 PM CDT [facility] HCT 46.7 43.0 - 54.0 % 05/22/2020 1:13 PM CDT [facility] MCV 89.3 80.0 - 94.0 FL 05/22/2020 1:13 PM CDT [facility] MCH 27.7 27.0 - 31.0 PG 05/22/2020 1:13 PM CDT [facility] MCHC 31.0(L) 32.0 - 36.0 G/DL 05/22/2020 1:13 PM CDT [facility] RDW 14.6(H) 11.5 - 14.5 % 05/22/2020 1:13 PM CDT [facility] PLT 315 130 - 400 x10'3/uL 05/22/2020 1:13 PM CDT [facility] MPV 10.0 9.3 - 12.2 FL 05/22/2020 1:13 PM CDT [facility] DIFFERENTIAL TYPE AUTOMATED DIFFERENTIAL 05/22/2020 1:13 PM CDT [facility] NEUTROPHILS % 79.7 % 05/22/2020 1:13 PM CDT [facility] LYMPHOCYTES % 8.0 % 05/22/2020 1:13 PM CDT [facility] MONOCYTES % 9.3 % 05/22/2020 1:13 PM CDT [facility] EOSINOPHILS 2.0 % 05/22/2020 1:13 PM CDT [facility] BASOPHILS 0.7 % 05/22/2020 1:13 PM CDT [facility] IMMATURE GRANS % 0.3 % 05/23/19 1:13 PM CDT [facility] ABS. NEUTROPHILS TOTAL 9.10(H) 1.80 - 7.70 x10'3/uL 05/22/2020 1:13 PM CDT [facility] ABS. LYMPHOCYTES 0.92(L) 1.00 - 4.80 x10'3/uL 05/22/2020 1:13 PM CDT [facility] ABS. MONOCYTES 1.06(H) 0.30 - 0.82 x10'3/uL 05/22/2020 1:13 PM CDT [facility] ABS. EOSINOPHILS 0.23 0.04 - 0.54 x10'3/uL 05/22/2020 1:13 PM CDT [facility] ABS. BASOPHILS 0.08 0.01 - 0.08 x10'3/uL 05/22/2020 1:13 PM CDT [facility] ABS. IMMATURE GRANULOCYTES 0.04 0.00 - 0.49 x10'3/uL 05/22/2020 1:13 PM CDT [facility] 05/22/2020 12:5 6 PM CDT Boyd Louis MD LABORATORY Final Result [facility] [address] [place] [address], [place] [phone] documented in this encounter Visit Diagnoses Diagnosis Cellulitis- Primary Cellulitis and abscess of unspecified site Osteomyelitis ([facility]) Unspecified osteomyelitis, site unspecified documented in this encounter Administered Medications Inactive Administered Medications - up to 3 most recent administrations Medication Order MAR Action Action Date Dose Rate Site cefTRIAXone (ROCEPHIN) 2 g in sodium chloride 0.9 % 50 mL IVPB 2 g, Intravenous, at 100 mL/hr, Once, 1 dose, On Thu05/22/20 at 1445 New Bag 05/22/2020 3:19 PM CDT 2 g 100 mL/hr metFORMIN (GLUCOPHAGE) tablet 1,000 mg 1,000 mg, Oral, Once, 1 dose, On Thu05/22/20 at 2230 Given 05/22/2020 10:36 PM CDT 1,000 mg vancomycin (VANCOCIN) 2,500 mg in sodium chloride 0.9 % 500 mL IVPB 2,500 mg, Intravenous, at 210 mL/hr, Once, 1 dose, On Thu05/22/20 at 1445 New Bag 05/22/2020 3:53 PM CDT 2,500 mg 210 mL/hr documented in this encounter Active and Recently Administered Medications Times are shown in CDT. Scheduled Medication Order 05/21/2020 05/22/2020 05/23/2020 cefTRIAXone (ROCEPHIN) 2 g in sodium chloride 0.9 % 50 mL IVPB (COMPLETED) 2 g, Intravenous, at 100 mL/hr, Once, 1 dose, On Thu05/22/20 at 1445 1519 (New Bag - Provider: Sabiha Lofton RN)1552 (Infusion Stop Time - Provider: Sabiha Lofton RN) metFORMIN (GLUCOPHAGE) tablet 1,000 mg (COMPLETED) 1,000 mg, Oral, Once, 1 dose, On Thu05/22/20 at 2230 2236 (Given - Provider: Chyna Arthur RN) vancomycin (VANCOCIN) 2,500 mg in sodium chloride 0.9 % 500 mL IVPB (COMPLETED) 2,500 mg, Intravenous, at 210 mL/hr, Once, 1 dose, On Thu05/22/20 at 1445 1553 (New Bag - Provider: Sabiha Lofton, RN)1813 (Infusion Stop Time - Provider: Sabiha Lofton, RN) documented in this encounter Care Teams Cotton Expert Relationship Specialty Start Date End Date Leeroy Sheehan DO [facility] [place] [phone] PCP - General FAMILY PRACTICE 12/06/19 documented as of this encounter
--- OUTSIDE RECORDS SUMMARY | 2024-03-06 15:22 | XMS_ITS | Encounter Summary ---
Author Organization [facility] Address [address] [place] [address]. [place] [address] [place] [address] Care Team Providers Care Chemicals Distiller Name Role Phone Leeroy Sheehan DO Primary Care Provide r Reason for Visit * Reason Comments Lab (SCAN) Encounter Details Date Type Department Care Team (Late st Contact Info) Description 04/09/2020 Scan [facility] [place] [address] Scanned, Documents Lab (SCAN) Social History Tobacco Use Types Packs/Day Years Used Date Smoking Tobacco: Never Assessed Sex and Gender Information Value Date Recorded Sex Assigned at Not on file Legal Sex Male 1:10 PM CDT Gender Identity Not on file Sexual Orientation Not on file documented as of this encounter Plan of Treatment Not on file documented as of this encounter Procedures Procedure Name Priority Date/Time Associated Diagnosis Comments OUTSIDE LAB (SCAN ORDER) Routine 11/30/2019 documented in this encounter Results * OUTSIDE LAB (SCAN) (11/30/2019) 11/30/2019 us Documents Scanned SCANNING Final Result [facility] documented in this encounter Visit Diagnoses Not on filedocumented in this encounter Care Teams Chemicals Distiller Relationship Specialty Start Date End Date Leeroy Sheehan DO [address] [place] [address] PCP - General FAMILY PRACTICE 12/06/19 documented as of this encounter
--- OUTSIDE RECORDS SUMMARY | 2024-03-06 15:22 | XMS_ITS | Encounter Summary ---
Author Organization [facility] Address [address] [place] [address]. [place], [place] [address] [place] [address] Care Team Providers Care Grounds Manager Name Role Phone Leeroy Sheehan DO Primary Care Provide r Encounter Details Date Type Department Care Team (Latest Contact Info) Description 10/11/2020 Travel Social History Tobacco Use Types Packs/Day [...] on filedocumented in this encounter Care Teams Grounds Manager Relationship Specialty Start Date End Date Leeroy Sheehan DO [address] [place] [address] PCP - General FAMILY PRACTICE 12/06/19 documented as of this encounter
--- OUTSIDE RECORDS SUMMARY | 2024-03-06 15:27 | XMS_ITS | CONTINUITY OF CARE DOCUMENT ---
Author Name hipolito yasemindonna Address Unknown Organization [facility] Address [address] [place] [address] Phone [phone] Care Team Providers Care Shoe Coverer Name Role Phone Yesenia Lomeli MD Unavailable [phone] Yesenia Lomeli MD Unavailable FRED STEPHENSON MD Unavailable [phone] PROBLEMS Condition Status Date Provider Notes Hypercholesterolemia, mixed active Laura Jesus Alberto maldonadoenediliaer PVD active Laura Lopez MD CHEST PAIN-TYPE TO BE DETERMINED active Lesley Lopez MD EDEMA02/11 DALIA DOP DALIA INSUF GREATER SAPH VEIN RODRI active ? Uriel English RN ENCOUNTERS Date Type Provider Location Encounter Diag nosis - In-person encounter Office Visit Laura Lopez MD [place] [facility] CHEST PAIN-TYPE TO BE DETERMINEDPVD - In-person encounter Office Visit Donnie Vela MD [place] [facility] - In-person encounter Office Visit Donnie Vela MD [place] [facility] EDEMA/13 DALIA DOP DALIA INSUF GREATER SAPH VEIN RODRI VITAL SIGNS Date Observation Value Provider Body Mass Index (Ratio) 47.59 kg/m2 Kaykay Kramer blood pressure, diastolic 84 mm[Hg] Me garciasa Kramer blood pressure, systolic 143 mm[Hg] Emmy Kramer pulse rate 84 /min Emily Kramer oxygen saturation, oximetry 97 % Emily Kramer respiratory rate E&M 14 /min Emily Kramer weight E&M 340 [lb_av] Emily Kramer blood pressure, diastolic 88 mm[Hg] Farhan English RN blood pressure, systolic 144 mm[Hg] Uriel English RN pulse rate 60 /min Uriel English RN oxygen saturation, oximetry 97 % Uriel English RN respiratory rate E&M 20 /min Uriel gutierrez RN Body Mass Index (Ratio) 47.31 kg/m2 Uriel English RN weight E&M 338 [lb_av] Uriel English RN blood pressure, diastolic, left arm 86 mm [Hg] Uriel English RN blood pressure, systolic, left arm 157 mm [Hg] Uriel English RN blood pressure, diastolic, right arm 91 m m[Hg] Uriel English RN blood pressure, systolic, right arm 159 m m[Hg] Uriel English RN blood pressure, diastolic 86 mm[Hg] Farhan English RN blood pressure, systolic 157 mm[Hg] Uriel English RN pulse rate 121 /min Uriel English RN oxygen saturation, oximetry 92 % Uriel English RN respiratory rate E&M 15 /min Uriel gutierrez RN Body Mass Index (Ratio) 47.59 kg/m2 Uriel English RN weight E&M 340 [lb_av] Uriel English RN height E&M 71 [in_i] Uriel English RN ALLERGIES No Known Drug Allergies RESULTS Date Observation Value Provider Reference Range Interpretation Location coagulation managed by Uriel English RN prothrombin time (patient) 20.2 s Emily Kramer international normalized ratio (INR) 2.0 Emily Kramer Normal coagulation managed by Uriel English RN prothrombin time (patient) 47.7 s Emily Kramer international normalized ratio (INR) 4.8 Emily Kramer Normal coagulation managed by Uriel English RN prothrombin time (patient) 13.7 s Uriel English RN international normalized ratio (INR) 1.4 Uriel English RN Normal coagulation managed by Uriel English RN prothrombin time (patient) 17.6 s Uriel English RN international normalized ratio (INR) 1.8 Uriel English RN Normal coagulation managed by Uriel English RN prothrombin time (patient) 19.1 s Uriel English RN international normalized ratio (INR) 1.9 Uriel English RN Normal coagulation managed by Uriel English RN prothrombin time (patient) 9.1 s Laura Henriqueer international normalized ratio (INR) 0.9 Laura Liam Normal coagulation managed by Uriel English RN prothrombin time (patient) 21.7 s Uriel Coyles RN international normalized ratio (INR) 2.1 Uriel English RN Normal coagulation managed by Uriel English RN prothrombin time (patient) 28.1 s Jenny Stueber international normalized ratio (INR) 2.8 Jenny Stueber Normal coagulation managed by Uriel English RN prothrombin time (patient) 22.6 s Jenny Stueber international normalized ratio (INR) 2.3 Jenny Stueber Normal coagulation managed by Uriel English RN prothrombin time (patient) 14.0 s Uriel English RN international normalized ratio (INR) 1.4 Uriel English RN Normal HISTORY OF MEDICATION USE Medication Status Instructions Dates Provider Indications Com ments CLINDAMYCIN HCL 300 MG ORAL CAPSULE active for 10 days Emily Kramer PREDNISONE 10 MG ORAL TABLET active once daily Emilybrenden Kramer IMDUR 30 MG ORAL TABLET EXTENDED RELEASE 24 HOUR active once daily Emilybrenden Kramer DOXYCYCLINE HYCLATE 100 MG ORAL TABLET active twice daily for 7 days Emily Kramer PANTOPRAZOLE SODIUM 40 MG ORAL TABLET DELAYED RELEASE active once daily Emily Kramer COUMADIN 1 MG ORAL TABLET completed TO BE TAKEN WITH 5 MG ON WED & FRI 1 - 2 Uriel English RN COUMADIN 1 MG ORAL TABLET completed take with 5mg = 6mg - 4 Uriel English RN COUMADIN 2 MG ORAL TABLET completed one tab daily - 1 Uriel English RN COUMADIN 5 MG ORAL TABLET active 1/2 tab Mon through Thu, 1 tab Sat and Sun 2 Uriel English RN COUMADIN 2 MG ORAL TABLET completed one tab daily - 2 Uriel English RN COUMADIN 5 MG ORAL TABLET completed one tab daily - 2 Uriel English RN AMITRIPTYLINE HCL 50 MG ORAL TABLET active daily Uriel English RN MULTIVITAMINS ORAL CAPSULE completed ONE TAB. DAILY - 6 Emily Kramer PRAVASTATIN SODIUM 40 MG ORAL TABLET active Uriel English RN OMEPRAZOLE 20 MG ORAL CAPSULE DELAYED RELEASE completed - 3 Emily Kramer NAPROXEN 500 MG ORAL TABLET completed - 7 Airam Cheung RN METFORMIN HCL 1000 MG ORAL TABLET active Uriel English RN LISINOPRIL 40 MG ORAL TABLET active ONE TAB. DAILY Uriel English RN LEVOXYL 100 MCG ORAL TABLET active ONE TAB. DAILY Uriel English RN HYDROCODONE-IBUPR OFEN 7.5-200 MG ORAL TABLET completed 3 times daily - 3 Emily Kramer GLIPIZIDE ER 10 MG ORAL TABLET EXTENDED RELEASE 24 HOUR active one tab daily Uriel English RN FUROSEMIDE 40 MG ORAL TABLET active daily Uriel English RN CARDIZEM CD 240 MG [id number] (DILTIAZEM HCL COATED BEADS) active One tab daily 6 Emily Kramer CITALOPRAM HYDROBROMIDE 20 MG ORAL TABLET active one tab daily Uriel English RN BUPROBAN 150 MG ORAL TABLET EXTENDED RELEASE 12 HOUR completed one tab daily - 3 Emily Kramer SOCIAL HISTORY Date Observation Value Provider drug use none Laura stewart MD smoking/tobacco cess ation, patient education and counseling yes Laura Lopez MD social history reviewed E&M reviewed Uriel English RN social history reviewed E&M reviewed Uriel English RN social history E&M Marital Statu s: L marc with family/friends E thnicity: Donnie Vela MD drug use no Uriel English RN passive cigarette sm josé antonio exposure no Uriel English RN caffeine use, averag e drinks per day yes Uriel English RN social history reviewed E&M reviewed Uriel English RN smoking status never smoker Uriel English RN MENTAL STATUS Date Observation Value Provider assessment of judgme nt and insight E&M Alert and oriented to time, place and person. Mood and affect are normal. Uriel English RN assessment of judgme nt and insight E&M Alert and oriented to time, place and person. Mood and affect are normal. Uriel English RN assessment of judgme nt and insight E&M Alert and oriented to time, place and person. Mood and affect are normal. Uriel English RN INSURANCE PROVIDERS Payer name Policy type / Coverage type [place] [employer] [facility] Other [id number] TREATMENT PLAN Date Name STR - Adenosine Venous Doppler Bilat eral LE - Standing Complete Echo [employer] [facility] Tele HISTORY OF PROCEDURES Procedure Date Procedure Name Provider Procedure Notes S tatus Schedule Followup Laura Lopez MD fu with Dr. Vela in next several weeks completed EKG Laura Lopez MD comp leted EKG Donnie Vela MD completed
--- OUTSIDE RECORDS SUMMARY | 2024-03-06 15:27 | XMS_ITS | Clinical Summary ---
Author Organization [facility] Address [address] [place]: Epic Prelude ADT MOHS[place] RETANA [phone] Care Team Providers Care Municipal Clerk Name Role Phone Unavailable Primary Care Provider Unavailabl e Social History Tobacco Use Types Packs/Day Years Used Date Smoking Tobacco: Never Assessed Sex and Gender Information Value Date Recorded Sex Assigned at Not on file Gender Identity Not on file Sexual Orientation Not on file Plan of Treatment Health Maintenance Due Date Last Done Comments DTAP/TDAP/TD VACCINES (1 - Tdap) 08/05/1974 COLORECTAL SCREENING 08/05/2000 Colorectal Cancer Screening 08/05/2000 FIT-DNA Q 3 years 08/05/2000 FIT/FOBT Q 1 year 08/05/2000 Flex Sig/CT Colonography Q 5 years 08/05/2000 ZOSTER VACCINE (1 of 2) 08/05/2005 PNEUMOCOCCAL VACCINE 65+ YEARS (1 of 1 - PCV) 08/06/19 21 INFLUENZA VACCINE (#1) 2023 RSV VACCINE (60+ or ) (1 - 1-dose 75+ series) 08/05/2030
--- OUTSIDE RECORDS SUMMARY | 2024-03-06 15:27 | XMS_ITS | Encounter Summary ---
Author Organization [employer] Address [address] [place] [address] Care Team Providers Care Learning And Development Assistant Name Role Phone Unavailable Primary Care Provider Unavailabl e Encounter Details Date Type Department Care Team (Latest Contact Info) Description 10/22/2004 Outpatient Historical [facility] Maxi Zambrano MD [address] [place] [address] CERVICAL SPONDYLOSIS (Primary Dx) Social History Tobacco Use Types Packs/Day Years Used Date Smoking Tobacco: Never Assessed Sex and Gender Information Value Date Recorded Sex Assigned at Not on file Gender Identity Not on file Sexual Orientation Not on file documented as of this encounter Plan of Treatment Not on file documented as of this encounter Visit Diagnoses Diagnosis Cervical spondylosis without myelopathy- Primary documented in this encounter
--- OUTSIDE RECORDS SUMMARY | 2024-03-06 15:27 | XMS_ITS | Continuity of Care Document ---
Author Organization [employer] [place] Address [address] [place] [address] Phone Care Team Providers Care Assembler Unit Name Role Phone Leeroy Ramirez DO Unavailable Unava ilable Allergies, Adverse Reactions, Alerts Substance Reaction Status Criticality No Known Allergies Active No Inform ation Medications Medication Instructions Dosage Effective Dates (start - stop) Status Comments pravastatin 40 mg tablet TAKE 1 TABLET BY MOUTH EVERY DAY - Active insulin syringe U-100 with needle 0.5 mL 31 gauge x 5/16 Use 4 times daily for insulin injections - Active E11.42 LEVOTHYROXINE 100 MCG TABLET TAKE 1 TABLET BY MOUTH EVERY DAY - Active gentamicin 0.1 % topical cream apply by topical route 3 times every day a small amount to the affected area 0.00 - Active FUROSEMIDE 40 MG TABLET TAKE 1 TABLET BY MOUTH TWICE A DAY 40 MG - Active hydrocodone 7.5 mg-acetaminophen 325 mg tablet take 1 tablet by oral route every 6 hours as needed for pain, max 4 tab a day - Active M54.16, fill when eligible Novolin N NPH U-100 Insulin isophane 100 unit/mL subcutaneous susp inject 20u by subcutaneous route twice daily per prescriber's instructions. Insulin dosing requires individualization. - Active use relion brand. Dx: E11.622 insulin syringe U-100 with needle 0.3 mL 30 gauge x 5/16 use to inject insulin SQ twice a day - Active TRAZODONE 150 MG TABLET TAKE 1 AND 1/2 TABLETS BY MOUTH EVERY DAY - Active HYDRALAZINE 25 MG TABLET TAKE 1 TABLET BY MOUTH THREE TIMES A DAY 25 MG - Active FreeStyle Artemio 14 Day Sensor kit Use sensor along with FreeStyle Artemio reader to check glucose as directed. Change every 2 weeks. - Active Dx: E11.622. Please cover under Medicare Part B FreeStyle Artemio 14 Day Norton Use reader as directed to check glucose - Active E11.622 Lantus U-100 Insulin 100 unit/mL subcutaneous solution inject 45u in the AM and 20u in the PM SQ per insulin protocol, up to 100u daily - Active metformin 1,000 mg tablet TAKE ONE TABLET BY MOUTH TWICE A DAY WIITH MORNING AND EVENING MEALS - Active Aspirin Low Dose 81 mg tablet,delayed release take 1 tablet by oral route every day 81 MG - Active omeprazole 20 mg capsule,delayed release take 1 capsule by oral route every day 30 minutes to 1 hour before a meal 20 MG - Active diltiazem ER 240 mg capsule,24 hr,extended release take 1 capsule by oral route every day 240 MG - Active albuterol sulfate HFA 90 mcg/actuation aerosol inhaler inhale 2 puff by inhalation route every 4 - 6 hours as needed - Active CONTOUR NEXT TEST STRIP USE ONE STRIP TO TEST EVERY DAY - Active LISINOPRIL 40 MG TABLET TAKE 1 TABLET BY MOUTH EVERY DAY - Active carvedilol 12.5 mg tablet take 1 tablet by oral route 2 times every day with food 12.5 MG - Active stop 6.25 GABAPENTIN 300 MG CAPSULE TAKE 1 CAPSULE BY MOUTH 6 TIMES PER DAY - Active fluconazole 100 mg tablet take 1 tablet by oral route every day 100 MG - Active CONTOUR NEXT ONE METER USE TO TEST DAILY - Active glimepiride 4 mg tablet take 1 tablet by oral route every day 4 MG - Active Microlet Lancet USE ONE LANCET TO PRICK SKIN TWICE A DAY - Active multivitamin capsule - Activ e Procedures Procedure Date [facility] MED/CURRENT MED MERGE SYST BP >= 140 MM HG6 IT DIAST BP < 80 MM HG Transitional Care- First 7 Days Of Disch arge SYST BP >= 140 MM HG6 IT DIAST BP < 80 MM HG Pt inelig neg scrn depres FALL RISK ASSESSMENT DOC'D PRES/ABSN URINE INCON ASSESS C-REACTIVE PROTEIN (CRP) CBC, INC PLATELETS AND DIFFERENTIAL COMPREHEN METABOLIC PANEL CMP 2 HEMOGLOBIN A1C HGA1C, GLYCO LIPID PANEL ROUTINE VENIPUNCTURE Admin influenza virus vac FLU VACC PRSV FREE INC ANTIG OFFICE [id number] SYST BP LT 130 MM HG DIAST BP 80-89 MM HG OFFICE [id number] SYST BP LT 130 MM HG DIAST BP < 80 MM HG CBC, INC PLATELETS AND DIFFERENTIAL COMPREHEN METABOLIC PANEL CMP 2 HEMOGLOBIN A1C HGA1C, GLYCO BRAIN NATRIURETIC PEPTIDE (BNP) 022 THYROID STIMULATION HORMONE(TSH) 2021 ROUTINE VENIPUNCTURE OFFICE [id number] SYST BP LT 130 MM HG DIAST BP < 80 MM HG FREE T4 (FT4) FORM CHARGE [facility] MED/CURRENT MED MERGE Transitional Care- First 7 Days Of Disch arge Kept Appointment No Charge Encounter Mar [facility] MED/CURRENT MED MERGE Transitional Care- First 7 Days Of Disch arge SYST BP LT 130 MM HG DIAST BP < 80 MM HG FALL RISK ASSESSMENT DOC'D PRES/ABSN URINE INCON ASSESS Pt inelig neg scrn depres Admin influenza virus vac FLU VACC PRSV FREE INC ANTIG OFFICE [id number] BODY MASS INDEX DOCD SYST BP GE 130 - 139MM HG DIAST BP < 80 MM HG BASIC METABOLIC PANEL(BMP) CBC, INC PLATELETS AND DIFFERENTIAL HEMOGLOBIN A1C HGA1C, GLYCO OFFICE [id number] Kept Appointment No Charge Encounter Jul [facility] MED/CURRENT MED MERGE Transitional Care- First 7 Days Of Disch arge Transitional Care- First 7 Days Of Disch arge [facility] MED/CURRENT MED MERGE OFFICE [id number] SYST BP GE 130 - 139MM HG DIAST BP < 80 MM HG CBC, INC PLATELETS AND DIFFERENTIAL COMPREHEN METABOLIC PANEL CMP 0 HEMOGLOBIN A1C HGA1C, GLYCO LIPID PANEL MICROALBUMIN, QN (URINE) CREATININE, (U-R) PARATHYROID HORMONE (PTH) THYROID STIMULATION HORMONE(TSH) 2019 URINALYSIS, REFLEX (UA) ROUTINE VENIPUNCTURE Admin influenza virus vac FLU VACC 4 CRYS 0.5mL DOSAGE Tubular Dressing Size G Depression screen annual Clin depression screen doc OFFICE [id number] BODY MASS INDEX DOCD SYST BP LT 130 MM HG DIAST BP < 80 MM HG Kept Appointment No Charge Encounter Sep Depression screen annual Clin depression screen doc CBC, INC PLATELETS AND DIFFERENTIAL COMPREHEN METABOLIC PANEL [facility] 9 HEMOGLOBIN A1C HGA1C, GLYCO BRAIN NATRIURETIC PEPTIDE (BNP) 019 THYROID STIMULATION HORMONE(TSH) 2018 ROUTINE VENIPUNCTURE OFFICE [id number] BODY MASS INDEX DOCD SYST BP GE 130 - 139MM HG DIAST BP < 80 MM HG Admin influenza virus vac FLU VAC NO PRSV 4 CRYS, 0.5mL DOSAGE CBC, INC PLATELETS AND DIFFERENTIAL COMPREHEN METABOLIC PANEL [facility] 9 HEMOGLOBIN A1C HGA1C, GLYCO PARATHYROID HORMONE (PTH) THYROID STIMULATION HORMONE(TSH) 2018 ROUTINE VENIPUNCTURE OFFICE [id number] SYST BP >= 140 MM HG6 IT DIAST BP < 80 MM HG OFFICE [id number] SYST BP LT 130 MM HG DIAST BP < 80 MM HG OFFICE [id number] SYST BP LT 130 MM HG DIAST BP < 80 MM HG Advance Directives Directive Yes / No Effective Date File Name Life Support Not Answered N/A N/A Intubation Not Answered N/A N/A Antibiotics Not Answered N/A N/A IV Fluid Support Not Answered N/A N/A Tube Feed Not Answered N/A N/A Other Directive N/A N/A WARNING:The information contained in this section is historical and is provided for information only and does not constitute a legal document or any assurance that the information is still accurate. Please verify the information with the lechuga of the legal document before using it for clinical purposes. Encounters Encounter Description Practice Location Reason(s) For Visit Diagnoses Date Provider Providers Copied on Encounter [facility], [address], [place], [place], [address] , tel: [phone] [facility] No Information 3 Liberty Umaña. [address] [place] [address], [id number], [place]. tel:[phone] [facility], [address], [place], [place], [address] , tel: [phone] [facility] No Information 2 Liberty Umaña. [address] [place] [address], [id number], [place]. tel:[phone] [facility], [address], [place], [place], [address] , tel: [phone] [facility] No Information 2 Dejon Stockton. [address] [place] [address], [address], [place]. tel:[phone] [facility], [address], [place], [place], [address] , tel: [phone] [facility] No Information 2 Liberty Umaña. [address] [place] [address], [id number], [place]. tel:[phone] Transitional Care- First 7 Days Of Discharge [facility], [address], [place], [place], [address] , tel: [phone] [facility] Hospital Follow-Up (chief complaint)P atient encounter (chief complaint) Other reduced mobilityNon-pr essure chronic ulcer of unspecified ankle with fat layer exposedType 2 diabetes mellitus with diabetic polyneuropathy Morbid (severe) obesity with alveolar hypoventilatio n 2 Liberty Umaña. [address] [place] [address], [id number], [place]. tel:[phone] Referring Provider: Leeroy husain, [address] [place] [address], [address] . tel:[phone] [facility], [address], [place], [place], [address] , tel: [phone] [facility] No Information Nov- 2 Liberty Umaña. [address] [place] [address], [id number], [place]. tel:[phone] [facility], [address], [place], [place], [address] , tel: [phone] [facility] No Information Oct- 2 Liberty Umaña. [address] [place] [address], [id number], [place]. tel:[phone] [facility], [address], [place], [place], [address] , tel: [phone] [facility] No Information Oct- 2 Effie Mariah. [address] [place] [address], [id number], [place]. tel:[phone] OFFICE AGLMM-[id number]-SDU PILY [facility], [address], [place], [place], [address] , tel: [phone] [facility] 3 month F/U (chief complaint)o ther (chief complaint)C hronic Conditions (chief complaint) 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Long term (current) use of insulinVaricos e veins of unspecified lower extremity with inflammationTy pe 2 diabetes mellitus with diabetic polyneuropathy Chronic diastolic (congestive) heart failureRadicul opathy, lumbar regionMorbid (severe) obesity with alveolar hypoventilatio nMixed hyperlipidemia Encounter for immunizationOt her reduced mobility Sep-2 2 Liberty Umaña. [address] [place] [address], [id number], [place]. [phone] Referring Provider: Leeroy husain, [address] [place] [address], [address] . tel:[phone] [facility], [address], [place], [place], [address] , tel: [phone] [facility] No Information 2 NakashimaMor an Leeroy. [address] [place] [address], [id number], [place]. tel:[phone] [facility], [address], [place], [place], [address] , tel: [phone] [facility] No Information 2 Dejon Stockton. [address] [place] [address], [address], [place]. tel:[phone] [facility], [address], [place], [place], [address] , tel: [phone] [facility] No Information 2 NakashimaMor an Leeroy. [address] [place] [address], [id number], [place]. tel:[phone] [facility], [address], [place], [place], [address] , tel: [phone] [facility] No Information 2 NakashimaMor an Leeroy. [address] [place] [address], [id number], [place]. tel:[phone] OFFICE OIEOZ-PSG-RYI PILY [facility], [address], [place], [place], [address] , tel: [phone] [facility] 2 week F/U (chief complaint)C hronic Conditions (chief complaint) Morbid (severe) obesity with alveolar hypoventilatio nType 2 diabetes mellitus with other skin ulcerVaricose veins of unspecified lower extremity with inflammationNo n-pressure chronic ulcer of ankle with fat layer exposedLong term (current) use of insulinOther reduced mobility 2 NakashimaMor an Leeroy. [address] [place] [address], [id number], [place]. tel:[phone] Referring Provider: Leeroy husain, [address] [place] [address], [place], [address] . tel:[phone] [facility], [address], [place], [place], [address] , tel: [phone] [facility] No Information 2 JuanKatiaxochitl ilya Leeroy. [address] [place] [address], [id number], [place]. tel:[phone] OFFICE QYAGO-MJD-UDO P [facility], [address], [place], [place], [address] , tel: [phone] [facility] 6 month F/U (chief complaint)o ther (chief complaint)C hronic Conditions (chief complaint) Chronic obstructive pulmonary disease, unspecifiedChr onic diastolic (congestive) heart failureMorbid (severe) obesity with alveolar hypoventilatio nOther reduced mobilityArteri osclerosis of navajo coronary artery with angina pectorisHypoth yroidism, unspecifiedTyp e 2 diabetes mellitus with diabetic polyneuropathy Diabetic ulcer of heel associated with type 2 diabetes mellitus, limited to breakdown of skin, unspecified lateralityNon- pressure chronic ulcer of unspecified heel and midfoot limited to breakdown of skin 2 JuanAndrew Umaña. [address] [place] [address], [place], [place], [id number], [place]. tel:[phone] Referring Provider: Leeroy husain, [address] [place] [address], [place], [address] . tel:[phone] [facility], [address], [place], [place], [id number] , [place] tel: [phone] [facility] No Information 2 CiprianoFilibertoxochitl ilya Leeroy. [address] [place] [address], [place], [place], [id number], [place]. tel:[phone] [facility], [address], [place], [place], [address] , tel: [phone] [facility] No Information May-2 2- 2 JuanashimaMor an Leeroy. [address] [place] [address], [id number], . tel:[phone] Referring Provider: Leeroy husain, [address] [place] [address], [address] . tel:[phone] [facility], [address], [place], [place], [address] , tel: [phone] [facility] No Information May-0 2 NakashimaMor an Leeroy. [address] [place] [address], [id number], [place]. tel:[phone] [facility], [address], [place], [place], [address] , tel: [phone] [facility] No Information Apr-0 - 2 NakashimaMor an Leeroy. [address] [place] [address], [id number], [place]. tel:[phone] [facility], [address], [place], [place], [address] , tel: [phone] [facility] No Information Apr-0 2 NakashimaMor an Leeroy. [address] [place] [address], [id number], [place]. tel:[phone] Transitional Care- First 7 Days Of Discharge [facility], [address], [place], [place], [address] , tel: [phone] [facility] Hospital Follow-Up (chief complaint)C hronic Conditions (chief complaint) Type 2 diabetes mellitus with other skin ulcerNon-press ure chronic ulcer of ankle with fat layer exposedChronic diastolic (congestive) heart failureChronic obstructive pulmonary disease, unspecifiedMaj or depressive disorder, recurrent severe without psychotic featuresUnspec ified atrial fibrillationLo ng term (current) use of insulinOther reduced mobilityArteri osclerosis of navajo coronary artery with angina pectoris 2 Liberty Umaña. [address] [place] [address], [id number], . tel:[phone] Referring Provider: Leeroy husain, [address] [place] [address], [address] . tel:[phone] [facility], [address], [place], [place], [address] , tel: [phone] [facility] No Information 2 Liberty Umaña. [address] [place] [address], [id number], . tel:[phone] Referring Provider: Leeroy husain, [address] [place] [address], [address] . tel:[phone] Transitional Care- First 7 Days Of Discharge [facility], [address], [place], [place], [address] , tel: [phone] [facility] Hospital Follow-Up (chief complaint)C hronic Conditions (chief complaint) Type 2 diabetes mellitus with other skin ulcerNon-press ure chronic ulcer of ankle with fat layer exposedUnspeci fied atrial fibrillationCh ronic diastolic (congestive) heart failureOther reduced mobilityMorbid (severe) obesity with alveolar hypoventilatio nObstructive sleep apnea (adult) (pediatric)Rad iculopathy, lumbar region 1 Liberty Umaña. [address] [place] [address], [id number], [place]. tel:[phone] Referring Provider: Leeroy husain, [address] [place] [address], [address] . tel:[phone] OFFICE JQRLK-MOT-GAI PILY [facility], [address], [place], [place], [address] , tel: [phone] [facility] Chronic Conditions (chief complaint) Type 2 diabetes mellitus with other skin ulcerChronic diastolic (congestive) heart failureNon-pre ssure chronic ulcer of other part of left lower leg limited to breakdown of skinBody mass index (BMI) 45.0-49.9, adultMorbid (severe) obesity due to excess caloriesUnspec ified atrial fibrillationGe neralized abdominal painMajor depressive disorder, recurrent severe without psychotic features Oct- 1 Dejon Kath. [address] [place] [address], [address], [place]. tel:[phone] Referring Provider: Leeroy husain, [address] [place] [address], [address] . tel:[phone] [facility], [address], [place], [place], [address] , tel: [phone] [facility] No Information 1 Liberty Umaña. [address] [place] [address], [id number], [place]. tel:[phone] [facility], [address], [place], [place], [address] , tel: [phone] [facility] No Information 1 Liberty Umaña. [address] [place] [address], [id number], [place]. tel:[phone] Referring Provider: Leeroy husain, [address] [place] [address], [address] . tel:[phone] [facility], [address], [place], [place], [address] , tel: [phone] [facility] No Information 1 Liberty Umaña. [address] [place] [address], [id number], . [phone] [facility], [address], [place], [place], [address] , [place] tel: [phone] Care Management Non-pressure chronic ulcer of other part of left lower leg limited to breakdown of skin 1 Liberty Umaña. [address] [place] [address], [id number], [place]. [phone] OFFICE VYWFE-CMS-YXB PILY [facility], [address], [place], [place], [address] , [place] tel: [phone] [facility] Telehealth (chief complaint)C hronic Conditions (chief complaint) Type 2 diabetes mellitus with other skin ulcerChronic diastolic (congestive) heart failureOther reduced mobilityNon-pr essure chronic ulcer of other part of left lower leg limited to breakdown of skin 1 Liberty Umaña. [address] [place] [address], [id number], [place]. [phone] Referring Provider: Leeroy husain, [address] [place] [address], [address] . tel:[phone] [facility], [address], [place], [place], [address] , [place] tel: [phone] [facility] Telehealth (chief complaint) No Information 1 Liberty Umaña. [address] [place] [address], [id number], [place]. tel:[phone] Referring Provider: Leeroy husain, [address] [place] [address], [address] . tel:[phone] Transitional Care- First 7 Days Of Discharge [facility], [address], [place], [place], [address] , tel: [phone] [facility] Telehealth (chief complaint)H ospital Follow-Up (chief complaint)C hronic Conditions (chief complaint) Chronic diastolic (congestive) heart failureUnspeci fied atrial fibrillationNo n-pressure chronic ulcer of other part of left lower leg limited to breakdown of skinType 2 diabetes mellitus with other skin ulcerErysipela sGastro-esopha geal reflux disease without esophagitis 1 Liberty Umaña. [address] [place] [address], [id number], [place]. tel:[phone] Referring Provider: Leeroy husain, [address] [place] [address], [address] . tel:[phone] [facility], [address], [place], [place], [address] , tel:[phone] Care Management Venous insufficiency (chronic) (peripheral) 1 Liberty Umaña. [address] [place] [address], [id number], [place]. [phone] [facility], [address], [place], [place], [address] , tel: [phone] [facility] No Information 1 Liberty Umaña. [address] [place] [address], [id number], [place]. tel:[phone] Transitional Care- First 7 Days Of Discharge [facility], [address], [place], [place], [address] , tel: [phone] [facility] Telehealth (chief complaint)C hronic Conditions (chief complaint) Other reduced mobilityType 2 diabetes mellitus with other skin ulcerObstructi ve sleep apnea (adult) (pediatric)Kiran ous insufficiency (chronic) (peripheral) 1 Liberty Umaña. [address] [place] [address], [id number], [place]. tel:[phone] Referring Provider: Leeroy husain, [address] [place] [address], [address] . tel:[phone] [facility], [address], [place], [place], [address] , [place] tel: [phone] [facility] No Information 1 Liberty Umaña. [address] [place] [address], [id number], [place]. tel:[phone] Referring Provider: Leeroy husain, [address] [place] [address], [address] . tel:[phone] [facility], [address], [place], [place], [address] , tel: [phone] Care Management No Information 1 Liberty Umaña. [address] [place] [address], [id number], [place]. tel:[phone] OFFICE [id number]-DBU P [facility], [address], [place], [place], [address] , [place] tel: [phone] [facility] Chronic Conditions (chief complaint) Unspecified atrial fibrillationSe nile degeneration of brain, not elsewhere classifiedMajo r depressive disorder, recurrent severe without psychotic featuresMorbid (severe) obesity due to excess caloriesChroni c diastolic (congestive) heart failureOther reduced mobilityType 2 diabetes mellitus with other skin ulcerHypothyro idism, unspecifiedGas tro-esophageal reflux disease without esophagitisNon -pressure chronic ulcer of other part of left lower leg limited to breakdown of skinMixed hyperlipidemia Radiculopathy, lumbar region Apr- 1 Dejon Stockton. [address] [place] [address], [address], [place]. [phone] Referring Provider: Leeroy husain, [address] [place] [address], [address] . tel:[phone] OFFICE PPSII-LLS-TZY PILY [facility], [address], [place], [place], [address] , tel: [phone] [facility] Chronic Conditions (chief complaint) Unspecified atrial fibrillationMo derately severe recurrent major depressionMorb id (severe) obesity due to excess caloriesType 2 diabetes mellitus with other skin ulcerHypothyro idism, unspecifiedMix ed hyperlipidemia Gastro-esophag eal reflux disease without esophagitisSen ile degeneration of brain, not elsewhere classifiedEsse ntial (primary) hypertensionOb structive sleep apnea (adult) (pediatric)Bod y mass index (BMI) 50.0-59.9, adultRadiculop athy, lumbar regionVenous insufficiency (chronic) (peripheral)No n-pressure chronic ulcer of other part of left lower leg limited to breakdown of skinWheezingCh ronic diastolic (congestive) heart failureHyperca lcemiaOther reduced mobility Sep-3 0-202 0 Dejonhortensia Stockton. [address] [place] [address], [address], . tel:[phone] Referring Provider: Leeroy husain, [address] [place] [address], [address] . tel:[phone] [facility], [address], [place], [place], [address] , tel: [phone] [facility] No Information Aug-0 6-202 0 Dejonhortensia Banegascatina. [address] [place] [address], [address], . tel:[phone] Referring Provider: Mariah Rivas, [address] [place] [address], [address] . tel:[phone] OFFICE JHYSZ-QMX-TER PILY [facility], [address], [place], [place], [id number] , tel: [phone] [place] [facility] 3 month (chief complaint)C hronic Conditions (chief complaint) Body mass index (BMI) 50.0-59.9, adultMorbid (severe) obesity with alveolar hypoventilatio nType 2 diabetes mellitus with diabetic polyneuropathy Venous insufficiency (chronic) (peripheral)Ch ronic diastolic (congestive) heart failureNon-pre ssure chronic ulcer of other part of left lower leg limited to breakdown of skinType 2 diabetes mellitus with other skin ulcerGastro-es ophageal reflux disease without esophagitisUns pecified atrial fibrillation 9 [facility] Umaña. [address] [place] [address], [id number], . tel:[phone] Referring Provider: Leeroy husain, [address] [place] [address], [address] . tel:[phone] [facility], [address], [place], [place], [id number] , tel: [phone] [place] [facility] Type 2 diabetes mellitus with diabetic polyneuropathy 9 [facility] Umaña. [address] [place] [address], [id number], . [phone] OFFICE [id number] [facility], [address], [place], [place], [id number] , tel: [phone] [place] [facility] 2 Month f/u (chief complaint)C hronic Conditions (chief complaint) Venous insufficiency (chronic) (peripheral)Ty pe 2 diabetes mellitus with other skin ulcerHypothyro idism, unspecifiedMor bid (severe) obesity with alveolar hypoventilatio nType 2 diabetes mellitus with diabetic polyneuropathy Chronic diastolic (congestive) heart failureRadicul opathy, lumbar region 9 [facility] Umaña. [address] [place] [address], [id number], [place]. tel:[phone] Referring Provider: Leeroy husain, [address] [place] [address], [address] . tel:[phone] OFFICE BBRSV-ZGH-SIG [facility], [address], [place], [place], [id number] , tel: [phone] [place] [facility] 1 week follow up (chief complaint) Cellulitis of lower extremity, unspecified lateralityVeno us insufficiency (chronic) (peripheral) 9 [facility] Umaña. [address] [place] [address], [id number], [place]. [phone] Referring Provider: Leeroy husain, [address] [place] [address], [place], [address] . tel:[phone] OFFICE MVNNS-FYD-ROM ANDED [facility], [address], [place], [place], [id number] , tel: [phone] [place] [facility] blisters (chief complaint)C hronic Conditions (chief complaint) Non-pressure chronic ulcer of other part of left lower leg limited to breakdown of skinVenous insufficiency (chronic) (peripheral)Ce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 increased shortness of breath. Related to Chronic obstructive pulmonary disease, unspecified At this time we will continue beta-cira, lisinopril, pravastatin and isosorbide. 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 Continue to monitor and call if there is any acute change Related to Chronic obstructive pulmonary disease, unspecified Your goal is to chec k your weight daily and to avoid salty, fried, or processed foods. If your weight increases by 1-2 lbs in 24 hours or 3-5 lbs in 5 days, call the office. Monitor your legs for swelling and keep an eye on your breathing, if there are changes call the office. Related to Chronic diastolic (congestive) heart failure I will arrange for [facility] to come out to evaluate as well. 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 We will work on obtaining labs from the hospital to see how things have been. Related to Type 2 diabetes mellitus with other skin ulcer Please work on a hea rt healthy, balanced diet Related to Morbid (severe) obesity with alveolar hypoventilation We will reorder CPAP Related to Obstructive sleep apnea (adult) (pediatric) You are tolerating m edications without any adverse effects. At this time we will continue current regimen. Related to Radiculopathy, lumbar region Continue use of roll ator or wheelchair at all times Related to Other reduced mobility Continue carvedilol and increased dose do diltiazem Related to Unspecified atrial fibrillation At this time I recom mend you start insulin and take in the morning. continue other medications as well. monitor for hypoglycemia Related to Type 2 diabetes mellitus with other skin ulcer Status: Meeting sourav tment plan goals.ok to increase the trazodone to 1.5tabs to help with sleeping.I will send to pharmacy. 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 Related to Generalized abdominal pain really work on porti on control to help with reductioncut back on high-carb foods and try to eat more fruits/veggies and lean protein.Call with any questions or concernsno labs todayreturn in 4 monthsflu shot todayyou may require a booster shot so pay attention or ask us about recommendations. Related to Morbid (severe) obesity due to excess calories you decline blood th innerscontinue on the diltiazem at 240mg once a day and aspirin Related to Unspecified atrial fibrillation Status: Requires mor e self-management coaching.the furosemide should be 80mg once a day weigh yourself dailyavoid: salty foods, fried foods, processed foods, adding salt to your foods.It you notice a weight gain of 1-2 pounds in 24 hours or 3-5 pounds in 5 days call our officealso keep an eye on the swelling in your legs and your breathing. Notify us of any changes. Related to Chronic diastolic (congestive) heart failure dressing changed tod ay.this is looking better.continue with wound carecall if the wound gets worse. Related to Non-pressure chronic ulcer of other part of left lower leg limited to breakdown of skin No change in medicat ions.please get your diabetic eye exam in December as scheduledStatus: Meeting treatment plan goals. Goals: Your goal is to manage your medicine. Barriers: No barriers to goal achievement have been identified. Related to Type 2 diabetes mellitus with other skin ulcer Giving encouragement to exercise Related to Body mass index (BMI) 45.0-49.9, adult Disease prevention Dietary management e ducation, guidance, and counseling Related to Body mass index (BMI) 45.0-49.9, adult Fall Risk Prevention Urinary Incontinence Recommend to continu e [facility] SN w their requested 9 visits. Wound is healing. Weekly supervision needed of spouse to ensure no setbacks to slow healing DM foot wound. Related to Non-pressure chronic ulcer of other part of left lower leg limited to breakdown of skin At this time we will continue assisted and we will plan to have our next visit in person Related to Non-pressure chronic ulcer of other part of left lower leg limited to breakdown of skin Use rollator at all times. We will have [facility] come out for evaluation to see if you need a new rollator. Related to Other reduced mobility At this time we will increase glipizide to 10mg in the morning and 5mg in the evening. I will have a lab draw come to you. Related to Type 2 diabetes mellitus with other skin ulcer Your goal is to chec k your weight daily and to avoid salty, fried, or processed foods. If your weight increases by 1-2 lbs in 24 hours or 3-5 lbs in 5 days, call the office. Monitor your legs for swelling and keep an eye on your breathing, if there are changes call the office. Related to Chronic diastolic (congestive) heart failure Please monitor blood sugar more frequently, we will continue the same medications at this timeStatus: Not meeting treatment plan goals. Goals: Your goal is to monitor your diabetes. Barriers: No barriers to goal achievement have been identified. Related to Type 2 diabetes mellitus with other skin ulcer continue to monitor for changes to leg wounds Related to Erysipelas Continue leg wrappin g and you will need to restart wound care when you are feeling stronger Related to Non-pressure chronic ulcer of other part of left lower leg limited to breakdown of skin Continue diltiazem and aspirin R elated to Unspecified atrial fibrillation Your goal is to chec k your weight daily and to avoid salty, fried, or processed foods. If your weight increases by 1-2 lbs in 24 hours or 3-5 lbs in 5 days, call the office. Monitor your legs for swelling and keep an eye on your breathing, if there are changes call the office.Status: Not meeting treatment plan goals. Goals: Your goal is to check for edema or swelling in your legs. Barriers: No barriers to goal achievement have been identified. Related to Chronic diastolic (congestive) heart failure At this time we will increase to 40mg omeprazole daily Related to Gastro-esophageal reflux disease without esophagitis Recommend pt to cont inue in SN for an additional 6 SN visits to further supervise manage his chronic BLE non pressure ulcers. Related to Venous insufficiency (chronic) (peripheral) Continue working wit h physical therapy Related to Other reduced mobility At this time we will continue the same medications and we will continue home health. Related to Type 2 diabetes mellitus with other skin ulcer In the future we tj l need start CPAP at night Related to Obstructive sleep apnea (adult) (pediatric) Continue to wrap legs regularly Related to Venous insufficiency (chronic) (peripheral) thyroid level will e ither be checked in hospital or rechecked once you are discharged Related to Hypothyroidism, unspecified work on smaller portion sizes Re lated to Morbid (severe) obesity due to excess calories we will check your c holesterol levels at a future datecontinue on the statin Related to Mixed hyperlipidemia This was noted on pr evious imaging of the brain.This is not uncommon to see with age or diabetesplease notify office of any significant memory changes. 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 Related to Other reduced mobility Status: Meeting sourav tment plan goals.they will weigh you in the hospital and monitor this. Goals: Your goal is to manage your medicine.Status: Meeting treatment plan goals. Goals: Your goal is to manage your medicine. Barriers: No barriers to goal achievement have been identified. Related to Chronic diastolic (congestive) heart failure Your wound is much w orse.You have not been to wound clinic since December and I am concerned you have an infection in the bone of your foot. This could cause a bloodstream infection called sepsis.They will do imaging in hospital and will start IV antibiotics.We discussed risk of amputation.When you are released you will need to be compliant with keeping wound appointments Related to Non-pressure chronic ulcer of other part of left lower leg limited to breakdown of skin continue on your medication Rela anthony to Gastro-esophageal reflux disease without esophagitis continue on duloxeti neStatus: Meeting treatment plan goals. Goals: Your goal is to manage your medicine. Barriers: No barriers to goal achievement have been identified. 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 Related to Radiculopathy, lumbar region DUE TO THE EXTENT OF YOUR WOUND, YOUR OXYGEN LEVEL, AND OVERALL WEAKNESS GO TO [facility] ER. I WILL CALL REPORT AND LET THEM KNOW WHAT'S GOING ON.You have declines blood thinners in pastyour heart is beating a little fast today but they will monitor in hospital.we discussed your risk of stroke. Related to Unspecified atrial fibrillation They may check A1c i n hospital but will be giving you insulin based off your blood sugars.if they do not check A1c in hospital, we can check it at a later time.Status: Requires more self-management coaching. Goals: Your goal is to monitor your diabetes. Barriers: No barriers to goal achievement have been identified.Status: Requires more self-management coaching. Barriers: No barriers to goal achievement have been identified. Related to Type 2 diabetes mellitus with other skin ulcer Disease process Let me know when you have paid [facility].He will need face to face appt to document need for motorized scooter. Related to Other reduced mobility will check levels today Related to Hypercalcemia Status: Meeting sourav tment plan goals. weigh yourself dailyavoid: salty foods, fried foods, processed foods, adding salt to your foods.It you notice a weight gain of 1-2 pounds in 24 hours or 3-5 pounds in 5 days call our officealso keep an eye on the swelling in your legs and your breathing. Notify us of any changes. Goals: Your goal is to manage your medicine. Related to Chronic diastolic (congestive) heart failure I will send a new in haler to your pharmacy to use as neededCall with any questions or concernscbc, cmp, lipids, A1c, intact PTH, micro, TSH, uareturn in 2-3 monthsflu shot today Continue with social distancing.AVOID CROWDS, STAY 6 FEET APART FROM OTHERS OUTSIDE YOUR HOUSEHOLD, WEAR A MASK, AVOID TOUCHING YOUR FACE, AVOID UNNECESSARY TRAVEL. WASH HANDS OFTEN. CALL WITH QUESTIONS/CONCERNS Related to Wheezing we will send your to wound clinic at [facility] will send powder to put in between the toes.you need to keep the legs dry and compressed. Related to Non-pressure chronic ulcer of other part of left lower leg limited to breakdown of skin narcotic agreement s igned todaycall when you need this refilled.take as prescribed Related to Radiculopathy, lumbar region use the tubigriptry to keep the legs dry Related to Venous insufficiency (chronic) (peripheral) continue on your medication Rela anthony to Gastro-esophageal reflux disease without esophagitis BP stable Related to Essen tial (primary) hypertension This was noted on pr evious imaging of the brain.This is not uncommon to see with age or diabetesplease notify office of any significant memory changes. 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 Then we can order sleep study Related to Obstructive sleep apnea (adult) (pediatric) we will check your thyroid level Related to Hypothyroidism, unspecified we will check your cholesterol l evels Related to Mixed hyperlipidemia work on portion control Related to Morbid (severe) obesity due to excess calories A1c today Please tati e sure you see your dance coach for an eye exam once per year. Foot care is important. Check your feet every day, and notify us immediately of any problems. Status: Requires more self-management coaching. Goals: Your goal is to monitor your diabetes. Barriers: No barriers to goal achievement have been identified. Related to Type 2 diabetes mellitus with other skin ulcer we will change your antidepressant to duloxetineI will check in 1 month to see how you are doing.call if the depression worsensStatus: Meeting treatment plan goals. Goals: Your goal is to manage your medicine. Barriers: No barriers to goal achievement have been identified. Related to Moderately severe recurrent major depression you decline blood th innerswe discussed risk of strokerate is controlled Related to Unspecified atrial fibrillation Dietary management e ducation, guidance, and counseling Related to Body mass index (BMI) 50.0-59.9, adult Giving encouragement to exercise Related to Body mass index (BMI) 50.0-59.9, adult Disease process Please work on calor ie reduction for weight loss Related to Morbid (severe) obesity with alveolar hypoventilation Continue diltiazem and aspirin R elated to Unspecified atrial fibrillation As above, please sta rt using compression stockings and monitor for acute infections Related to Non-pressure chronic ulcer of other part of left lower leg limited to breakdown of skin Continue pantoprazole Related to Gastro-esophageal reflux disease without esophagitis Please monitor for s igns of acutely worsening ulceration/infection in legs. Related to Type 2 diabetes mellitus with other skin ulcer Your goal is to chec k your weight daily and to avoid salty, fried, or processed foods. If your weight increases by 1-2 lbs in 24 hours or 3-5 lbs in 5 days, call the office. Monitor your legs for swelling and keep an eye on your breathing, if there are changes call the office. Related to Chronic diastolic (congestive) heart failure At this time we will continue current medication and check A1c. Please work on a low carb/sugar diet and taking all medications as prescribed. Related to Type 2 diabetes mellitus with diabetic polyneuropathy You must wear compre ssion stockings/tubigrip to heal legs and decrease infection risk Related to Venous insufficiency (chronic) (peripheral) Dietary management e ducation, guidance, and counseling Related to Body mass index (BMI) 50.0-59.9, adult At this time we will treat with a short course of steroids. Related to Radiculopathy, lumbar region At this time we will continue current medications. we will check kidney function and a test for heart failure. Related to Chronic diastolic (congestive) heart failure At this time we will continue gabapentin. Related to Type 2 diabetes mellitus with diabetic polyneuropathy Please continue to w ork on decreasing caloric intake for weight loss. Related to Morbid (severe) obesity with alveolar hypoventilation At this time I will continue your current dose of levothyroxine and will check your thyroid levels. Related to Hypothyroidism, unspecified Please continue usin g compression as above and monitoring for addition skins sores/wounds and cellulitis. We will continue all medications at this time. Related to Type 2 diabetes mellitus with other skin ulcer Continue using tubigrip at all t imes. Related to Venous insufficiency (chronic) (peripheral) Please restart using tubigrip daily tomorrow. We will likely need to start using multilayer wraps for decreasing edema for healing of wounds. Related to Venous insufficiency (chronic) (peripheral) Please finish antibi otics as prescribed and follow up with wound care on Thursday. Related to Cellulitis of lower extremity, unspecified laterality At this time I will start cefadroxil for skin [place] and ciprofloxacin for potential pseudomonas infection. We will follow up in 1 week. Related to Cellulitis of lower extremity, unspecified laterality Restart tubigrip as mentioned ab ove Related to Venous insufficiency (chronic) (peripheral) At this time we will start antibiotics orally for infection. I recommend you start wrapping your legs and that you make new appointment for wound care in the near future. Related to Non-pressure chronic ulcer of other part of left lower leg limited to breakdown of skin At this time please look for an environmental cause as your has the same rash. Please take 2 cetirizine a day as well as 20mg of pepcid/famotidine until rash clears, then you may just take one cetirizine a day Related to Hives Once ulcers have hea led it will be important to wear compression stockings/tubigrip as much as possible. Related to Type 2 diabetes mellitus with other skin ulcer As above, will refer to wound care at this time Related to Venous insufficiency (chronic) (peripheral) At this time I will continue your current dose of levothyroxine and will check your thyroid levels. Related to Hypothyroidism, unspecified Relatively rate cont rolled on current medications. Continue aspirin. Related to Unspecified atrial fibrillation At this time we will check A1c and continue the same medications. please take all medications as prescribed. Related to Type 2 diabetes mellitus with diabetic polyneuropathy Please work on diabetic diet Rel ated to Morbid (severe) obesity with alveolar hypoventilation At this time I will refer you to woundcare to see if they are able to help heal the ulcers and then decrease swelling. Related to Non-pressure chronic ulcer of other part of left lower leg limited to breakdown of skin BP well controlled a nd will continue the same medications. Related to Essential (primary) hypertension Assessments Type Assessment Date No Information Patient Care Teams Name Effective Dates (start - stop) Status Members No Information
== END 2024-03-02 13:35 | disposition expired | DRG 698 ==
LOC: ANHED 13:28 → ANHICU 19:53
PROVIDERS: Physician Assistant; Admitting Provider Internal Medicine; Emergency Provider Emergency Medicine; PCP Internal Medicine; Visit Provider Internal Medicine
DX: T83.511A Infection and inflammatory reaction due to indwelling urethral catheter, initial encounter (principal); A41.9 Sepsis, unspecified organism; J96.00 Acute respiratory failure, unspecified whether with hypoxia or hypercapnia; G93.41 Metabolic encephalopathy; R65.21 Severe sepsis with septic shock; E87.1 Hypo-osmolality and hyponatremia; I50.32 Chronic diastolic (congestive) heart failure; N17.9 Acute kidney failure, unspecified; I11.0 Hypertensive heart disease with heart failure; I48.0 Paroxysmal atrial fibrillation; I87.2 Venous insufficiency (chronic) (peripheral); B96.4 Proteus (mirabilis) (morganii) as the cause of diseases classified elsewhere; T68.XXXA Hypothermia, initial encounter; E87.5 Hyperkalemia; E11.42 Type 2 diabetes mellitus with diabetic polyneuropathy; E03.9 Hypothyroidism, unspecified; N20.0 Calculus of kidney; J44.9 Chronic obstructive pulmonary disease, unspecified; K21.9 Gastro-esophageal reflux disease without esophagitis; G47.33 Obstructive sleep apnea (adult) (pediatric); F03.90 Unspecified dementia, unspecified severity, without behavioral disturbance, psychotic disturbance, mood disturbance, and anxiety; F32.A Depression, unspecified; Z20.822 Contact with and (suspected) exposure to COVID-19; Z96.0 Presence of urogenital implants; Z79.4 Long term (current) use of insulin; Z87.442 Personal history of urinary calculi; Z87.891 Personal history of nicotine dependence
CPT/HCPCS: 31500; 36415; 36430; 36556; 36600; 70450; 71045; 71250; 74176; 80048; 80053; 80202; 81001; 82274; 82375; 82436; 82550; 82570; 82607; 82746; 82805; 82948; 83010; 83050; 83540; 83550; 83605; 83615; 83690; 83735; 84100; 84133; 84145; 84300; 84439; 84443; 84480; 84484; 85018; 85025; 85027; 85610; 85730; 85999; 86140; 86850; 86900; 86901; 86923; 87040; 87086; 87186; 87637; 87641; 93005; 94002; 94003; 94640; 96365; 96366; 96368; 96375; 99291; A9270; C1751; J0461; J0692; J0696; J1171; J1265; J1720; J1815; J1836; J2060; J2185; J2250; J2270; J2470; J3010; J3370; J3430; J7030; J7060; J7120; P9016; P9047